=== PATIENT | female | born 2000 | race Caucasian/White ===

== ENCOUNTER 2022-08-20 09:51 | Emergency (ER) | payer MEDICAID, SELFPAY ==
[2022-08-20] VITALS (18 sets, daily range): BP systolic 96–131; BP diastolic 61–83; PULSE 65–106; RESP 18; O2SAT 91–100
--- NOTE | 2022-08-20 10:11 | ED.GENADULT ---
HPI - General Adult General Chief complaint: Vaginal Bleeding Stated complaint: 13 weeks -bleeding and cramping Time Seen by Provider: 08/20/22 09:57 Source: patient Mode of arrival: ambulatory Limitations: no limitations History of Present Illness HPI narrative: Patient is a 21 y/o female who presents to the ED with c/o vaginal bleeding. Patient is and was currently approx 13 weeks gestation. She had previously been seeing an OBGYN with [facility], [place] but is in the process of transferring her care to [facility]. She states she noticed a gush of clean odorless fluid yesterday afternoon. She then began bleeding vaginally and notes she was passing large amount of tissue-like material. The bleeding has slowed significantly today. She had pain in her right lower back yesterday which began to radiate to her right lower abdomen today. Patient also reports she feels dizzy and lightheaded with movements. Denies any CHEEMA, N/V, focal weakness, fevers. Patient was diagnosed with a UTI 2 weeks ago and started on Macrobid. Related Data Allergies Allergy/AdvReac Type Severity Reaction Status Date / Time ciprofloxacin [From Cipro] Allergy Stopped Verified 08/20/22 09:52 Breathing levofloxacin [From Levaquin] AdvReac Rash Verified 08/20/22 09:52 Review of Systems Review of Systems: CONSTITUTIONAL: Denies fever, chills, or sweats. CARDIOVASCULAR: Denies chest pain. RESPIRATORY: Denies dyspnea. GASTROINTESTINAL: See HPI. GENITOURINARY: See HPI. SKIN: Denies rash or itching. MUSCULOSKELETAL: See HPI. NEUROLOGIC: See HPI. All systems reviewed & are unremarkable except as noted in HPI and below [facility] Past Medical History Medical History (Updated 08/20/22 @ 15:58 by Kristie Winter PA-C) History of miscarriage Surgical History Surgical History (Updated 08/20/22 @ 15:58 by Kristie Winter PA-C) No pertinent past surgical history Exam Narrative: GENERAL: Well appearing, thin, non-toxic, in no acute distress. HEAD: Normocephalic, atraumatic. NECK: Supple. No adenopathy, no masses. RESPIRATORY: Airway patent, respirations nonlabored. Clear to auscultation bilaterally, no rales, rhonchi, wheezing. CARDIOVASCULAR: Regular rate and rhythm without murmurs, rubs, or gallops. Radial pulses 2+ and equal bilaterally. ABDOMINAL: Soft, very mild tenderness throughout lower abdomen, nondistended, no hepatosplenomegaly. Normoactive BS. No significant CVA tenderness to percussion. PELVIC: Normal external genitalia. Cervical os appears slightly open. Small amount of dark brown discharge/bleeding. No active or bright red bleeding. No genital lesions. No significant CMT. MUSCULOSKELETAL: Moves all extremities. Strength/ROM intact without gross deformities. SKIN: Warm, dry, slightly pale appearing. No rashes. NEURO: A&O X3. Speech clear. Cranial nerves II-XII grossly intact. Steady gait. No ataxic movements. PSYCHIATRIC: Appropriate mood and affect. Normal interaction. Course Vital Signs Vital signs: Vital Signs Pulse Rate 77 08/20/22 09:58 Respiratory Rate 18 08/20/22 09:58 Blood Pressure 118/69 08/20/22 09:58 Pulse Oximetry 100 08/20/22 09:58 Oxygen Delivery Room Air 08/20/22 09:58 Pulse Rate 65 08/20/22 13:00 Respiratory Rate 18 08/20/22 09:58 Blood Pressure 104/67 08/20/22 13:00 Pulse Oximetry 100 08/20/22 13:15 Oxygen Delivery Room Air 08/20/22 09:58 Medical Decision Making MDM Narrative Medical decision making narrative: Patient presented to ED G5, P2, currently 13 weeks gestation, previously confirmed IUP, developed vaginal bleeding yesterday, passing tissue. Feeling dizzy and lightheaded today. Vital stable upon arrival, though patient was found to be orthostatic even with sitting upright in ED bed. Fluids were started. CBC without leukocytosis, stable H&H. Beta quant 186K. No records to compare to. Urine does not appear infectio
[2022-08-20 10:24] LABS: Basophils Percent Auto 0.4 % (0.2-1.2); Eosinophils Absolute Auto 0.1 K/mm3 (0-0.3); Eosinophils Percent Auto 1.4 % (0-4.4); Hematocrit 37.5 % (37.0-47.0); Hemoglobin 12.5 g/dL (12.0-15.0); Immature Granulocyte Absolute 0.03 K/mm3 (0.00-0.031); Immature Granulocyte Percent A 0.4 % (0-0.5); Lymphocytes Absolute Auto 1.57 K/mm3 (0.9-3.2); Lymphocytes Percent Auto 20.6 % (18.3-44.2); Mean Corpuscular HGB Conc 33.3 g/dl (32-36); Mean Corpuscular Hemoglobin 29.3 pg (26-34); Mean Corpuscular Volume 87.8 fl (80-100); Mean Platelet Volume 11.2 fl (7.4-10.4); Monocytes Absolute Auto 0.6 K/mm3 (0.1-0.6); Monocytes Percent Auto 7.6 % (2.6-8.5); Neutrophils Absolute Auto 5.3 K/mm3 (1.3-6.7); Neutrophils Percent Auto 69.6 % (45.5-73.1); Platelet Count Result 180 k/mm3 (150-375); Red Blood Count 4.27 M/mm3 (4.2-5.4); Red Cell Distribution Width 13.1 % (11.5-14.5); White Blood Count 7.6 K/mm3 (4.5-10.0)
[2022-08-20] MEDS: SODIUM CHLORIDE 0.9% IV 1,000 ML 999 ML IV CONT ×2 (10:57→11:58)
[2022-08-20 11:14] LABS: Alanine Aminotransferase 31 U/L (6-35); Albumin Level 3.8 g/dL (3.5-5.1); Alkaline Phosphatase 49 U/L (38-126); Anion Gap 6 mmol/L (8-16); Aspartate Amino Transferase 20 U/L (14-36); Bilirubin,Total 0.4 mg/dL (0.2-1.3); Blood Urea Nitrogen 5 mg/dL (7-17); Calcium 8.3 mg/dL (8.4-10.2); Carbon Dioxide 24 mmol/L (22-30); Chloride 105 mmol/L (98-107); Estimated CRCL calculation 168 ml/min; Estimated Glomerular Filt Rate > 60; Glucose 83 mg/dL (65-110); Potassium 3.4 mmol/L (3.4-5.0); Sodium 135 mmol/L (137-145)
[2022-08-20 12:02] LABS: Appearance Urine Clear (Clear); Bilirubin Urine Negative (Negative); Blood Urine Negative (Negative); Color Urine Yellow (Yellow); Glucose Urine UA Negative (Negative); Ketones Urine Negative (Negative); Leukocyte Esterase Ur Negative LEU/UL (Negative); Nitrate Urine Negative (Negative); Protein Urine Negative (Negative); Specific Grav Ur 1.007 (1.001-1.035); Urobilinogen Urine 0.2 mg/dL (<2.0)
[2022-08-20 12:05] LABS: Add Urine Microscopic? NO
== END 2022-08-20 14:15 | disposition home or self-care (01) ==
PROVIDERS: Emergency Provider Physician Assistant
DX: O03.9 Complete or unspecified spontaneous abortion without complication (principal)
CPT/HCPCS: 36415; 80053; 81003; 84702; 85025; 85461; 86850; 86900; 86901; 96360; 96361; 99284; J7030

== ENCOUNTER 2022-09-08 09:42 | Emergency (ER) | payer BC, SELFPAY ==
[2022-09-08 09:47] VITALS: BP 111/72; PULSE 110; RESP 18; TEMP 36.9; O2SAT 100
--- NOTE | 2022-09-08 10:15 | ED.NAVMDI ---
HPI - Nausea/Vomiting/Diarrhea General Chief complaint: Nausea/Vomiting/Diarrhea Stated complaint: N/V 16 weeks Time Seen by Provider: 09/08/22 09:56 History of Present Illness HPI Narrative: Patient is a 21-year-old G6, female who is currently 16 weeks here for evaluation of nausea, vomiting, epigastric burning x4 days. Patient has been attempting Zofran and omeprazole without relief, states over the past 24 hours she has been unable to keep down food or water. States she feels dehydrated. Her OB is Dr. Green at the [facility] [place]. no fevers, chills, diarrhea or constipation. No vaginal bleeding, lower abdominal cramping, sudden gush of fluids. Related Data Allergies Allergy/AdvReac Type Severity Reaction Status Date / Time ciprofloxacin [From Cipro] Allergy Stopped Verified 09/08/22 09:58 Breathing levofloxacin [From Levaquin] AdvReac Rash Verified 09/08/22 09:58 Review of Systems Review of Systems: Gen.: Denies fevers or chills Eyes: Denies eye pain or visual change ENT: Denies congestion Respiratory: Denies shortness of breath or cough CV: Denies chest pain or palpitations GI: Reports epigastric abdominal pain, nausea and vomiting denies burning, urgency, frequency or hematuria Musculoskeletal: Denies back pain or muscle pain Neuro: Denies numbness, tingling, weakness or focal weakness Skin: Denies rash Except as documented, all other systems reviewed and negative PMFSH Past Medical History Medical History History of miscarriage Surgical History Surgical History No pertinent past surgical history Exam Narrative: APPEARANCE: Well appearing, no pain in distress, well-nourished. Head: Normocephalic and atraumatic. EYES: PERRLA/EOMI, conjunctivae clear NOSE: No nasal drainage EARS: External ear normal in appearance THROAT: Oropharynx is clear. Mucous membranes are moist. NECK: Supple. No adenopathy, no masses. RESPIRATORY: Airway patent, respirations nonlabored. Clear to auscultation bilaterally, no rales, rhonchi, wheezing. CARDIOVASCULAR: Regular rate and rhythm without murmurs, rubs, or gallops. ABDOMINAL: Normoactive bowel sounds. Soft, nontender, nondistended. No rebound tenderness or guarding. MUSCULOSKELETAL: Extremities are warm and well-perfused. Moves all extremities well. No edema. NEURO: Normal speech. No focal neurologic deficits. SKIN: Skin is warm and dry. No rashes. PSYCHIATRIC: Normal affect/mood.. Course Course Emergency Course: FHT at bedside rate 135-155 Vital Signs Vital signs: Vital Signs Temperature 98.4 F 09/08/22 09:47 Pulse Rate 110 H 09/08/22 09:47 Respiratory Rate 18 09/08/22 09:47 Blood Pressure 111/72 09/08/22 09:47 Pulse Oximetry 100 09/08/22 09:47 Oxygen Delivery Room Air 09/08/22 09:47 Temperature 98.4 F 09/08/22 09:47 Pulse Rate 84 09/08/22 13:19 Respiratory Rate 16 09/08/22 13:19 Blood Pressure 98/58 L 09/08/22 13:19 Pulse Oximetry 98 09/08/22 13:19 Oxygen Delivery Room Air 09/08/22 09:47 MDM - Nausea/Vomiting/Diarrhea MDM Narrative Medical decision making narrative: -year-old G6, P2 AB 3 female here for evaluation of nausea and vomiting the past 24 hours, unable to tolerate any p.o. Initially slightly tachycardic but otherwise nontoxic in appearance with no abdominal tenderness on examination. heart tones detected at bedside. Patient's was given 2 L of fluids and Reglan with improvement in her symptoms. Able to tolerate p.o and feels ready to go home. Labs significant for slight hypokalemia to 3.2, UA with 4+ ketones, bacteria, white blood cells and trace leuks. Given that she is we will treat for asymptomatic bacteriuria. Spoke with Dr. Green who is agreeable with plan for d/c with abx, reglan and outpatient follow up. Lab Data
[2022-09-08 10:33] LABS: Basophils Percent Auto 0.4 % (0.2-1.2); Eosinophils Absolute Auto 0.1 K/mm3 (0-0.3); Eosinophils Percent Auto 0.7 % (0-4.4); Hematocrit 38.4 % (37.0-47.0); Hemoglobin 12.7 g/dL (12.0-15.0); Immature Granulocyte Absolute 0.05 K/mm3 (0.00-0.031); Immature Granulocyte Percent A 0.6 % (0-0.5); Lymphocytes Absolute Auto 1.14 K/mm3 (0.9-3.2); Lymphocytes Percent Auto 13.6 % (18.3-44.2); Mean Corpuscular HGB Conc 33.1 g/dl (32-36); Mean Corpuscular Hemoglobin 29.5 pg (26-34); Mean Corpuscular Volume 89.3 fl (80-100); Mean Platelet Volume 11.2 fl (7.4-10.4); Monocytes Absolute Auto 0.5 K/mm3 (0.1-0.6); Monocytes Percent Auto 6.4 % (2.6-8.5); Neutrophils Absolute Auto 6.6 K/mm3 (1.3-6.7); Neutrophils Percent Auto 78.3 % (45.5-73.1); Platelet Count Result 192 k/mm3 (150-375); White Blood Count 8.4 K/mm3 (4.5-10.0)
[2022-09-08] MEDS: METOCLOPRAMIDE HCL INJ 10 MG/2 ML VIAL IV PUSH (10:38)
[2022-09-08] MEDS: LACTATED RINGERS 1,000 ML 999 ML IV CONT ×2 (10:38→11:44)
[2022-09-08 10:47] VITALS: BP 103/70; PULSE 77; RESP 16; O2SAT 97
[2022-09-08 10:50] LABS: Alanine Aminotransferase 36 U/L (6-35); Albumin Level 4.5 g/dL (3.5-5.1); Alkaline Phosphatase 64 U/L (38-126); Anion Gap 10 mmol/L (8-16); Aspartate Amino Transferase 29 U/L (14-36); Bilirubin,Total 0.7 mg/dL (0.2-1.3); Blood Urea Nitrogen 7 mg/dL (7-17); Carbon Dioxide 23 mmol/L (22-30); Chloride 103 mmol/L (98-107); Estimated CRCL calculation 170 ml/min; Estimated Glomerular Filt Rate > 60; Glucose 79 mg/dL (65-110); Potassium 3.2 mmol/L (3.4-5.0); Sodium 136 mmol/L (137-145)
--- NOTE | 2022-09-08 11:11 | PC.NURSE ---
Report received from Marianne MAHMOOD
[2022-09-08 11:40] LABS: Add Urine Microscopic? YES; Appearance Urine Cloudy (Clear); Bacteria Urine 2+ /hpf; Bilirubin Urine Negative (Negative); Blood Urine Negative (Negative); Color Urine Yellow (Yellow); Glucose Urine UA Negative (Negative); Ketones Urine 4+ mg/dL (Negative); Leukocyte Esterase Ur Trace LEU/UL (Negative); Need Manual Microscopic Reviewed; Nitrate Urine Negative (Negative); Protein Urine Trace mg/dL (Negative); Specific Grav Ur 1.028 (1.001-1.035); Squamous Epithelial Cell Urine Moderate /hpf (Few)
[2022-09-08] MEDS: POTASSIUM CHLORIDE 20 MEQ PACKET (FOR LIQUID) PO (12:29)
[2022-09-08 13:19] VITALS: BP 98/58; PULSE 84; RESP 16; O2SAT 98
== END 2022-09-08 13:20 | disposition home or self-care (01) ==
PROVIDERS: Emergency Provider Physician Assistant
DX: O21.9 Vomiting of pregnancy, unspecified (principal); Z3A.16 16 weeks gestation of pregnancy
CPT/HCPCS: 36415; 80053; 81001; 85025; 87086; 96361; 96374; 99284; A9270; J2765; J7120

== ENCOUNTER 2022-10-18 20:47 | Observation (INO) | payer BC, SELFPAY ==
[2022-10-18] MEDS: DEXTROSE 5%/LACTATED RINGERS 1,000 ML 999 ML IV CONT (21:23)
[2022-10-18 21:25] LABS: Basophils Percent Auto 0.2 % (0.2-1.2); Eosinophils Absolute Auto 0.1 K/mm3 (0-0.3); Eosinophils Percent Auto 0.6 % (0-4.4); Hematocrit 32.2 % (37.0-47.0); Hemoglobin 10.5 g/dL (12.0-15.0); Immature Granulocyte Absolute 0.08 K/mm3 (0.00-0.031); Immature Granulocyte Percent A 0.9 % (0-0.5); Lymphocytes Absolute Auto 1.21 K/mm3 (0.9-3.2); Lymphocytes Percent Auto 13.8 % (18.3-44.2); Mean Corpuscular HGB Conc 32.6 g/dl (32-36); Mean Corpuscular Hemoglobin 28.7 pg (26-34); Mean Platelet Volume 11.1 fl (7.4-10.4); Monocytes Absolute Auto 0.6 K/mm3 (0.1-0.6); Monocytes Percent Auto 7.1 % (2.6-8.5); Neutrophils Absolute Auto 6.8 K/mm3 (1.3-6.7); Neutrophils Percent Auto 77.4 % (45.5-73.1); Platelet Count Result 195 k/mm3 (150-375); Red Blood Count 3.66 M/mm3 (4.2-5.4); White Blood Count 8.8 K/mm3 (4.5-10.0)
[2022-10-18 21:32] VITALS: BMI 19.5
--- NOTE | 2022-10-18 21:32 | OBADM ---
This patient, Mariam Lea, admitted to the OB room OB Post 116 for observation. Patient/family oriented to hospital policies and general routines including ID bracelet, bed and alarms, visiting hours, pain management, procedures, bathroom and other care routines, personal items, smoking policy, room service/diet, and visiting hours. Patient/Family are encouraged to report perceived risks to care and to ask questions if they do not understand what they are told or what they should do.
[2022-10-18 21:35] LABS: Alanine Aminotransferase 31 U/L (6-35); Albumin Level 3.8 g/dL (3.5-5.1); Alkaline Phosphatase 55 U/L (38-126); Anion Gap 8 mmol/L (8-16); Aspartate Amino Transferase 25 U/L (14-36); Bilirubin,Total 0.4 mg/dL (0.2-1.3); Blood Urea Nitrogen 6 mg/dL (7-17); Calcium 8.6 mg/dL (8.4-10.2); Carbon Dioxide 23 mmol/L (22-30); Chloride 103 mmol/L (98-107); Estimated CRCL calculation 177 ml/min; Estimated Glomerular Filt Rate > 60; Glucose 107 mg/dL (65-110); Potassium 3.2 mmol/L (3.4-5.0); Sodium 134 mmol/L (137-145)
[2022-10-18 21:45] LABS: Appearance Urine Cloudy (Clear); Bacteria Urine 4+ /hpf; Bilirubin Urine Negative (Negative); Blood Urine Negative (Negative); Color Urine Yellow (Yellow); Glucose Urine UA 1+ mg/dL (Negative); Ketones Urine Trace mg/dL (Negative); Leukocyte Esterase Ur 1+ LEU/UL (Negative); Need Manual Microscopic Reviewed; Nitrate Urine Negative (Negative); Protein Urine Negative (Negative); Specific Grav Ur 1.024 (1.001-1.035); Squamous Epithelial Cell Urine Moderate /hpf (Few); pH Urine 6.5 (5.0-9.0)
[2022-10-18 21:50] LABS: Add Urine Microscopic? YES
[2022-10-18] MEDS: SODIUM CHLORIDE 0.9% IV 1,000 ML 200 ML IV CONT (22:09)
[2022-10-18 22:48] VITALS: BP 102/62; PULSE 100
[2022-10-18] MEDS: POTASSIUM CHLORIDE INJ 40 MEQ in SODIUM CHLORIDE 0.9% IV 500 ML 125 MEQ IVPB (22:50)
--- NOTE | 2022-11-11 18:53 | PM.OBTRLD ---
OB - Triage/Final Diagnosis Visit Information Comments/Additional reasons for admission: I have assessed the risk for this patient, Mariam Lea, and determined that she would benefit from observation care. Evaluation Laboratory results: Laboratory Tests 10/18/22 21:19 WBC 8.8 RBC 3.66 L Hgb 10.5 L Hct 32.2 L MCV 88.0 MCH 28.7 MCHC 32.6 RDW 13.0 Plt Count 195 MPV 11.1 H Immature Gran % (Auto) 0.9 H Neut % (Auto) 77.4 H Lymph % (Auto) 13.8 L [place] % (Auto) 7.1 Eos % (Auto) 0.6 Baso % (Auto) 0.2 Lymph # (Auto) 1.21 [place] # (Auto) 0.6 Eos # (Auto) 0.1 Baso # (Auto) 0.0 Abs Immat Gran (auto) 0.08 H Absolute Neuts (auto) 6.8 H Absolute Nucleated RBC 0.0 Nucleated RBC % 0.0 Sodium 134 L Potassium 3.2 L Chloride 103 Carbon Dioxide 23 Anion Gap 8 BUN 6 L Creatinine 0.30 L Estim Creat Clear Calc 177 Estimated GFR > 60 Glucose 107 Calcium 8.6 Total Bilirubin 0.4 AST 25 ALT 31 Alkaline Phosphatase 55 Total Protein 7.0 Albumin 3.8 Urine Color Yellow Urine Appearance Cloudy H Urine pH 6.5 Ur Specific [place] 1.024 Urine Protein Negative Urine Glucose (UA) 1+ H Urine Ketones Trace H Ur Blood (Man) Negative Urine Nitrate Negative Urine Bilirubin Negative Urine Urobilinogen 1.0 Add Ur Microanalysis Reviewed Leukocyte Esterase Rfl 1+ H Urine RBC 6-10 H Urine WBC 11-20 H Ur Squamous Epith Cells Moderate Urine Bacteria 4+ H Urine Casts 3-5 Final Diagnosis (1) Abdominal pain: Code(s): R10.9 - Unspecified abdominal pain Status: Acute
== END 2022-10-19 03:50 | disposition home or self-care (01) ==
PROVIDERS: Admitting Provider Obstetrics & Gynecology; Visit Provider Obstetrics & Gynecology
DX: O26.892 Other specified pregnancy related conditions, second trimester (principal); R10.9 Unspecified abdominal pain; Z3A.21 21 weeks gestation of pregnancy
CPT/HCPCS: 36415; 80053; 81001; 85025; 87077; 87086; 87088; 96374; 96375; G0378; J0696; J3480; J7030; J7040; J7121

== ENCOUNTER 2022-11-23 11:11 | Observation (INO) | payer BC, OTHER, SELFPAY ==
[2022-11-23] VITALS (18 sets, daily range): BP systolic 88–124; BP diastolic 55–81; PULSE 82–185; TEMP 36.6
[2022-11-23 12:26] LABS: Appearance Urine Clear (Clear); Bilirubin Urine Negative (Negative); Blood Urine Negative (Negative); Color Urine Yellow (Yellow); Glucose Urine UA Negative (Negative); Ketones Urine Negative (Negative); Leukocyte Esterase Ur Negative LEU/UL (Negative); Nitrate Urine Negative (Negative); Protein Urine Negative (Negative); pH Urine 6.5 (5.0-9.0)
[2022-11-23 12:39] LABS: Add Urine Microscopic? NO
--- NOTE | 2022-11-23 12:43 | OBADM ---
This patient, Mariam Lea, admitted to the OB room OB Post 112 for observation. Patient/family oriented to hospital policies and general routines including ID bracelet, bed and alarms, visiting hours, pain management, procedures, bathroom and other care routines, personal items, smoking policy, room service/diet, and visiting hours. Patient/Family are encouraged to report perceived risks to care and to ask questions if they do not understand what they are told or what they should do.
[2022-11-23 13:58] LABS: Basophils Percent Auto 0.4 % (0.2-1.2); Eosinophils Absolute Auto 0.1 K/mm3 (0-0.3); Eosinophils Percent Auto 0.9 % (0-4.4); Hematocrit 30.1 % (37.0-47.0); Hemoglobin 9.5 g/dL (12.0-15.0); Immature Granulocyte Absolute 0.13 K/mm3 (0.00-0.031); Immature Granulocyte Percent A 1.5 % (0-0.5); Lymphocytes Absolute Auto 1.55 K/mm3 (0.9-3.2); Lymphocytes Percent Auto 17.3 % (18.3-44.2); Mean Corpuscular HGB Conc 31.6 g/dl (32-36); Mean Corpuscular Hemoglobin 27.3 pg (26-34); Mean Corpuscular Volume 86.5 fl (80-100); Mean Platelet Volume 11.2 fl (7.4-10.4); Monocytes Absolute Auto 0.7 K/mm3 (0.1-0.6); Monocytes Percent Auto 7.3 % (2.6-8.5); Neutrophils Absolute Auto 6.5 K/mm3 (1.3-6.7); Neutrophils Percent Auto 72.6 % (45.5-73.1); Platelet Count Result 209 k/mm3 (150-375); Red Blood Count 3.48 M/mm3 (4.2-5.4); Red Cell Distribution Width 12.7 % (11.5-14.5)
[2022-11-23 14:12] LABS: Alanine Aminotransferase 21 U/L (6-35); Albumin Level 3.6 g/dL (3.5-5.1); Alkaline Phosphatase 59 U/L (38-126); Anion Gap 7 mmol/L (8-16); Aspartate Amino Transferase 19 U/L (14-36); Bilirubin,Total 0.3 mg/dL (0.2-1.3); Blood Urea Nitrogen 3 mg/dL (7-17); Calcium 8.3 mg/dL (8.4-10.2); Carbon Dioxide 25 mmol/L (22-30); Chloride 104 mmol/L (98-107); Estimated Glomerular Filt Rate > 60; Glucose 83 mg/dL (65-110); Potassium 3.3 mmol/L (3.4-5.0); Sodium 136 mmol/L (137-145)
[2022-11-23 14:23] LABS: Fetal Fibronectin Negative
--- NOTE | 2022-11-27 15:28 | PM.OBTRLD ---
OB - Triage/Final Diagnosis Visit Information Date of evaluation: 11/23/22 Reason for evaluation: threatened labor Comments/Additional reasons for admission: I have assessed the risk for this patient, Mariam Lea, and determined that she would benefit from observation care. Evaluation Laboratory results: Laboratory Tests 11/23/22 11/23/22 12:15 13:22 WBC 9.0 RBC 3.48 L Hgb 9.5 L Hct 30.1 L MCV 86.5 MCH 27.3 MCHC 31.6 L RDW 12.7 Plt Count 209 MPV 11.2 H Immature Gran % (Auto) 1.5 H Neut % (Auto) 72.6 Lymph % (Auto) 17.3 L [place] % (Auto) 7.3 Eos % (Auto) 0.9 Baso % (Auto) 0.4 Lymph # (Auto) 1.55 [place] # (Auto) 0.7 H Eos # (Auto) 0.1 Baso # (Auto) 0.0 Abs Immat Gran (auto) 0.13 H Absolute Neuts (auto) 6.5 Absolute Nucleated RBC 0.0 Nucleated RBC % 0.0 Sodium 136 L Potassium 3.3 L Chloride 104 Carbon Dioxide 25 Anion Gap 7 L BUN 3 L Creatinine 0.30 L Estim Creat Clear Calc Not Reportable Estimated GFR > 60 Glucose 83 Calcium 8.3 L Total Bilirubin 0.3 AST 19 ALT 21 Alkaline Phosphatase 59 Total Protein 7.0 Albumin 3.6 Urine Color Yellow Urine Appearance Clear Urine pH 6.5 Ur Specific [place] 1.020 Urine Protein Negative Urine Glucose (UA) Negative Urine Ketones Negative Ur Blood (Man) Negative Urine Nitrate Negative Urine Bilirubin Negative Urine Urobilinogen 1.0 Leukocyte Esterase Rfl Negative Fibronectin Negative
== END 2022-11-23 16:20 | disposition home or self-care (01) ==
PROVIDERS: Advanced Practice Midwife; Admitting Provider Obstetrics & Gynecology; Visit Provider Obstetrics & Gynecology
DX: O47.02 False labor before 37 completed weeks of gestation, second trimester (principal); Z3A.26 26 weeks gestation of pregnancy
CPT/HCPCS: 36415; 80053; 81003; 82731; 85025; G0378; G0379

== ENCOUNTER 2022-12-05 12:30 | Observation (INO) | payer BC, OTHER, SELFPAY ==
[2022-12-05] VITALS (154 sets, daily range): BP systolic 95–127; BP diastolic 53–105; PULSE 32–151; TEMP 36.4–37.8; O2SAT 75–100
--- NOTE | 2022-12-05 13:15 | PCDIET ---
Pt. arrives to unit with c/o contractions since last night at 2100 and has continued since, nausea and dizziness since ctx began,clear intermittent leaking of fluid, burning on urination, intercourse this am, good movement. Denies bleeding or any significant health conditions. , edc 02/23.
[2022-12-05 13:21] LABS: Basophils Percent Auto 0.3 % (0.2-1.2); Eosinophils Absolute Auto 0.1 K/mm3 (0-0.3); Eosinophils Percent Auto 0.8 % (0-4.4); Hematocrit 34.1 % (37.0-47.0); Hemoglobin 10.6 g/dL (12.0-15.0); Immature Granulocyte Absolute 0.27 K/mm3 (0.00-0.031); Immature Granulocyte Percent A 2.6 % (0-0.5); Lymphocytes Absolute Auto 1.44 K/mm3 (0.9-3.2); Lymphocytes Percent Auto 13.8 % (18.3-44.2); Mean Corpuscular HGB Conc 31.1 g/dl (32-36); Mean Corpuscular Hemoglobin 26.8 pg (26-34); Mean Corpuscular Volume 86.3 fl (80-100); Mean Platelet Volume 11.5 fl (7.4-10.4); Monocytes Absolute Auto 0.7 K/mm3 (0.1-0.6); Monocytes Percent Auto 6.5 % (2.6-8.5); Platelet Count Result 195 k/mm3 (150-375); Red Blood Count 3.95 M/mm3 (4.2-5.4); Red Cell Distribution Width 12.7 % (11.5-14.5); White Blood Count 10.5 K/mm3 (4.5-10.0)
[2022-12-05 13:23] LABS: Appearance Urine Clear (Clear); Bilirubin Urine Negative (Negative); Blood Urine Negative (Negative); Color Urine Yellow (Yellow); Glucose Urine UA Negative (Negative); Ketones Urine Negative (Negative); Leukocyte Esterase Ur Negative LEU/UL (Negative); Nitrate Urine Negative (Negative); Protein Urine Negative (Negative); Specific Grav Ur 1.025 (1.001-1.035); pH Urine 5.5 (5.0-9.0)
[2022-12-05] MEDS: LACTATED RINGERS 1,000 ML 999 ML IV CONT (13:23)
[2022-12-05 13:25] LABS: Add Urine Microscopic? NO
[2022-12-05 13:32] LABS: Alanine Aminotransferase 25 U/L (6-35); Albumin Level 4.1 g/dL (3.5-5.1); Alkaline Phosphatase 72 U/L (38-126); Anion Gap 7 mmol/L (8-16); Aspartate Amino Transferase 21 U/L (14-36); Bilirubin,Total 0.4 mg/dL (0.2-1.3); Blood Urea Nitrogen 5 mg/dL (7-17); Calcium 8.6 mg/dL (8.4-10.2); Carbon Dioxide 25 mmol/L (22-30); Chloride 103 mmol/L (98-107); Estimated Glomerular Filt Rate > 60; Glucose 104 mg/dL (65-110); Potassium 3.3 mmol/L (3.4-5.0); Sodium 135 mmol/L (137-145); Uric Acid 1.9 mg/dL (2.5-7.5)
--- NOTE | 2022-12-05 13:42 | PC.NURSE ---
Yulia PERALTA notified of pt. arrival with c/o ctx since last evening, nausea, dizziness, burning on urination, leaking of fluid, recent intercourse this am. ctx 1-11, fht 130-140s, moderate variability, pain with ctx 7, no bleeding, good movement. Order received for LR bolus, labs, terb .25 once.
[2022-12-05 13:52] LABS: Fetal Fibronectin Positive
[2022-12-05] MEDS: TERBUTALINE SULFATE 1 MG/ML VIAL 0.25 MG SUB-Q (13:53)
[2022-12-05] MEDS: LACTATED RINGERS 1,000 ML 125 ML IV CONT (15:55)
--- NOTE | 2022-12-05 16:58 | PC.NURSE ---
Call placed to Yulia PERALTA due to patient crying with complaint of Shortness of breath, chest pressure, and heart racing from 120's to 150, history of asthma. Oxygen levels are 100 percent and bilateral lung sounds clear, fht 150-160's, moderate variability, irregular ctx and irritability. Order received to transfer pt. to ER for chest pain evaluation per swati/chyna.
--- NOTE | 2022-12-05 17:56 | PM.IMHP ---
H&P: HPI History of Present Illness Date/Time: 12/05/22 17:56 Chief Complaint: pt came to LD from office visit,complaints of contractions, nausea, dizziness, burning with urination, worsened after intercourse this am,did not tell triage and FFN was run and was positive. Pt currently being co-managed with MFM, family history of pyloric stenosis, Borderline intraabdominal echogenicites at 18 weeks, torch panel IGM negative, IGG positive toxoplasmosis, CMV and parvovirus, pt has a history of a delivery at 34 weeks gestation. Review of Systems Review of Systems: All systems reviewed & are unremarkable except as noted in HPI and below [facility] Past Medical History Medical History History of miscarriage Surgical History Surgical History No pertinent past surgical history Meds Home Medications and Allergies Home Medications Medication Instructions Recorded Confirmed Type metoclopramide HCl 10 mg tablet 10 mg PO Q6H PRN nausea and 09/08/22 Rx (Reglan) vomiting #10 tabs nitrofurantoin 100 mg PO Q12H 5 days #10 caps 09/08/22 Rx monohydrate/macrocrystals 100 mg capsule (Macrobid) Allergies Allergy/AdvReac Type Severity Reaction Status Date / Time ciprofloxacin [From Cipro] Allergy Stopped Verified 09/08/22 09:58 Breathing levofloxacin [From Levaquin] AdvReac Rash Verified 09/08/22 09:58 Vital Signs Vital Signs - 24 hr 12/05/22 13:13 12/05/22 13:16 12/05/22 13:31 Pulse Rate 98 97 97 Blood Pressure 117/72 120/82 106/70 Pulse Oximetry 12/05/22 13:46 12/05/22 13:58 12/05/22 14:01 Pulse Rate 93 101 H 112 H Blood Pressure 110/69 101/65 111/66 Pulse Oximetry 12/05/22 14:11 12/05/22 14:16 12/05/22 14:21 Pulse Rate 105 H Blood Pressure 115/65 Pulse Oximetry 86 L 100 100 12/05/22 14:26 12/05/22 14:31 12/05/22 14:36 Pulse Rate 104 H Blood Pressure 113/70 Pulse Oximetry 99 99 100 12/05/22 14:38 12/05/22 14:38 12/05/22 14:43 Pulse Rate Blood Pressure Pulse Oximetry 100 100 100 12/05/22 14:46 12/05/22 14:48 12/05/22 14:53 Pulse Rate 105 H Blood Pressure 108/65 Pulse Oximetry 100 100 12/05/22 14:58 12/05/22 15:01 12/05/22 15:03 Pulse Rate 101 H Blood Pressure 106/60 Pulse Oximetry 100 100 12/05/22 15:08 12/05/22 15:13 12/05/22 15:16 Pulse Rate 100 Blood Pressure 100/61 Pulse Oximetry 100 100 12/05/22 15:18 12/05/22 15:23 12/05/22 15:28 Pulse Rate Blood Pressure Pulse Oximetry 94 100 100 12/05/22 15:30 12/05/22 15:31 12/05/22 15:33 Pulse Rate 104 H 103 H Blood Pressure 111/64 113/58 L Pulse Oximetry 100 12/05/22 15:38 12/05/22 15:43 12/05/22 15:46 Pulse Rate 99 Blood Pressure 115/65 Pulse Oximetry 100 100 12/05/22 15:48 12/05/22 15:53 12/05/22 15:58 Pulse Rate Blood Pressure Pulse Oximetry 100 100 100 12/05/22 16:01 12/05/22 16:03 12/05/22 16:08 Pulse Rate 104 H Blood Pressure 111/69 Pulse Oximetry 100 100 12/05/22 16:13 12/05/22 16:16 12/05/22 16:18 Pulse Rate 113 H Blood Pressure 116/66 Pulse Oximetry 100 100 12/05/22 16:23 12/05/22 16:28 12/05/22 16:30 Pulse Rate 145 H Blood Pressure 121/100 H Pulse Oximetry 100 100 12/05/22 16:33 12/05/22 16:38 12/05/22 16:43 Pulse Rate Blood Pressure Pulse Oximetry 100 100 100 12/05/22 16:46 12/05/22 16:48 12/05/22 16:53 Pulse Rate 136 H Blood Pressure 110/67 Pulse Oximetry 100 100 12/05/22 16:58 12/05/22 17:01 12/05/22 17:03 Pulse Rate 130 H Blood Pressure 118/82 Pulse Oximetry 100 100 12/05/22 17:08 12/05/22 17:13 12/05/22 17:16 Pulse Rate 115 H Blood Pressure 106/61 Pulse Oximetry 98 100 12/05/22 17:18 12/05/22 17:23 12/05/22 17:27 Pulse Rate Blood Pressure Pulse Oximetry 100 99 100 12/05/22 17:
[2022-12-05] MEDS: NIFEdipine 30 MG TAB.ER.24 PO (18:40)
[2022-12-05] MEDS: POTASSIUM BICARBONATE 25 MEQ TABEF PO (18:41)
[2022-12-05] MEDS: BETAMETHASONE SOD PHOS/ACETATE 30 MG/5 ML VIAL 12 MG IM (18:41)
--- NOTE | 2022-12-05 19:39 | PC.NURSE ---
RN updated Renetta Garcia CNM of PT vitals, oje Q3-4mins at this time, Contractions palpating mild and resting tone soft to palpation, PT states she does not feel contraction. Renetta Garcia CNM calling Dr. Green and will call back with update.
--- NOTE | 2022-12-05 19:42 | PC.NURSE ---
Renetta Garcia CNM called unit, orders to keep PT over night, PT can have Ambien for sleep, continue LR at 125hr, Repeat FFN at 24hrs.
--- NOTE | 2022-12-05 19:49 | PC.NURSE ---
Renetta Garcia CNM notified of PT stating I'm starting to feel contractions, when I have one it's a sharp pain and I feel burning in my vagina. RN reported contraction pattern. Bladder recently emptied, fluids running and contractions mild to palpation. No new orders at this time.
[2022-12-05] MEDS: ZOLPIDEM TARTRATE (*CRX) 5 MG TABLET PO (21:15)
--- NOTE | 2022-12-05 22:21 | PC.NURSE ---
Renetta Garcia CNM notified of RN having difficulty monitoring heart tones related to gestational age and maternal position. Category 1 tracing prior to notifying. RN reported contraction pattern, PT states she does feel some contractions when they come but it varies. Orders to monitor heart tones Q-shift.
[2022-12-06] VITALS (33 sets, daily range): BP systolic 99–108; BP diastolic 49–59; PULSE 94–134; RESP 16; TEMP 36.8–37; O2SAT 93–99; BMI 22.2
[2022-12-06] MEDS: LACTATED RINGERS 1,000 ML 125 ML IV CONT (02:17)
--- NOTE | 2022-12-06 03:07 | PC.NURSE ---
PT reports feeling nauseous and requesting ice. RN to bedside, PT given ice and emesis bag, RN offered PT medication for nausea, PT denies at this time.
--- NOTE | 2022-12-06 03:37 | PC.NURSE ---
Renetta Garcia [facility] notified of PT uterine activity, PT states she does not feel contractions at this time. No new orders at this time.
--- NOTE | 2022-12-06 05:47 | PC.NURSE ---
Renetta Garcia [facility] notified of PT uterine activity, PT states she does not feel contractions at this time. No new orders at this time.
[2022-12-06] MEDS: ONDANSETRON INJ 4 MG/2 ML VIAL IV PUSH (06:44)
[2022-12-06] MEDS: FAMOTIDINE 20 MG/2 ML VIAL IV PUSH (07:09)
--- NOTE | 2022-12-06 11:45 | PC.NURSE ---
Renetta Garcia CNM was in to see pt and discussed plan for discharge. Pt to get Celestone early before she goes home.
--- NOTE | 2022-12-06 11:48 | PM.OBTRLD ---
OB - Triage/Final Diagnosis Visit Information Date of evaluation: 12/05/22 Reason for evaluation: threatened labor Comments/Additional reasons for admission: I have assessed the risk for this patient, Mariam Lea, and determined that she would benefit from observation care. Evaluation Laboratory results: Laboratory Tests 12/05/22 12/05/22 13:11 13:12 WBC 10.5 H RBC 3.95 L Hgb 10.6 L Hct 34.1 L MCV 86.3 MCH 26.8 MCHC 31.1 L RDW 12.7 Plt Count 195 MPV 11.5 H Immature Gran % (Auto) 2.6 H Neut % (Auto) 76.0 H Lymph % (Auto) 13.8 L [place] % (Auto) 6.5 Eos % (Auto) 0.8 Baso % (Auto) 0.3 Lymph # (Auto) 1.44 [place] # (Auto) 0.7 H Eos # (Auto) 0.1 Baso # (Auto) 0.0 Abs Immat Gran (auto) 0.27 H Absolute Neuts (auto) 8.0 H Absolute Nucleated RBC 0.0 Nucleated RBC % 0.0 Sodium 135 L Potassium 3.3 L Chloride 103 Carbon Dioxide 25 Anion Gap 7 L BUN 5 L Creatinine 0.30 L Estim Creat Clear Calc Not Reportable Estimated GFR > 60 Glucose 104 Uric Acid 1.9 L Calcium 8.6 Total Bilirubin 0.4 AST 21 ALT 25 Alkaline Phosphatase 72 Total Protein 8.0 Albumin 4.1 Urine Color Yellow Urine Appearance Clear Urine pH 5.5 Ur Specific [place] 1.025 Urine Protein Negative Urine Glucose (UA) Negative Urine Ketones Negative Ur Blood (Man) Negative Urine Nitrate Negative Urine Bilirubin Negative Urine Urobilinogen 1.0 Leukocyte Esterase Rfl Negative Fibronectin Positive Vital signs: Vital Signs - 24 hr 12/05/22 13:13 12/05/22 13:16 12/05/22 13:31 Temperature 36.4 C Pulse Rate 98 97 97 Respiratory Rate Blood Pressure 117/72 120/82 106/70 Pulse Oximetry Oxygen Delivery 12/05/22 13:46 12/05/22 13:58 12/05/22 14:01 Temperature 36.8 C Pulse Rate 93 101 H 112 H Respiratory Rate Blood Pressure 110/69 101/65 111/66 Pulse Oximetry Oxygen Delivery 12/05/22 14:11 12/05/22 14:16 12/05/22 14:21 Temperature Pulse Rate 105 H Respiratory Rate Blood Pressure 115/65 Pulse Oximetry 86 L 100 100 Oxygen Delivery 12/05/22 14:26 12/05/22 14:31 12/05/22 14:36 Temperature Pulse Rate 104 H Respiratory Rate Blood Pressure 113/70 Pulse Oximetry 99 99 100 Oxygen Delivery 12/05/22 14:38 12/05/22 14:38 12/05/22 14:43 Temperature Pulse Rate Respiratory Rate Blood Pressure Pulse Oximetry 100 100 100 Oxygen Delivery 12/05/22 14:46 12/05/22 14:48 12/05/22 14:53 Temperature Pulse Rate 105 H Respiratory Rate Blood Pressure 108/65 Pulse Oximetry 100 100 Oxygen Delivery 12/05/22 14:58 12/05/22 15:01 12/05/22 15:03 Temperature Pulse Rate 101 H Respiratory Rate Blood Pressure 106/60 Pulse Oximetry 100 100 Oxygen Delivery 12/05/22 15:08 12/05/22 15:13 12/05/22 15:16 Temperature Pulse Rate 100 Respiratory Rate Blood Pressure 100/61 Pulse Oximetry 100 100 Oxygen Delivery 12/05/22 15:18 12/05/22 15:23 12/05/22 15:28 Temperature Pulse Rate Respiratory Rate Blood Pressure Pulse Oximetry 94 100 100 Oxygen Delivery 12/05/22 15:30 12/05/22 15:31 12/05/22 15:33 Temperature Pulse Rate 104 H 103 H Respiratory Rate Blood Pressure 111/64 113/58 L Pulse Oximetry 100 Oxygen Delivery 12/05/22 15:38 12/05/22 15:43 12/05/22 15:46 Temperature Pulse Rate 99 Respiratory Rate Blood Pressure 115/65 Pulse Oximetry 100 100 Oxygen Delivery 12/05/22 15:48 12/05/22 15:53 12/05/22 15:58 Temperature Pulse Rate Respiratory Rate Blood Pressure Pulse Oximetry 100 100 100 Oxygen Delivery 12/05/22 16:01 12/05/22 16:03 12/05/22 16:08 Temperature Pulse Rate 104 H Respiratory Rate Blood Pressure 111/69 Pulse Oximetry 100 100 Oxygen Delivery 12/05/22 16:13 12/05/22 16:16 12/05/22 16:18 Temperature
--- NOTE | 2022-12-06 11:48 | PM.OBPNVD ---
OB - PN: Subj Subjective Date/time seen: 12/06/22 11:48 Interval history: pt stayed over night for evaluation for labor, uterus irritable overnight, pt able to rest, this am very rare contractions with little to no irritability. pt denies complaints at this time and would like to be discharged home OB - PN: Obj Data Labs 12/05/22 13:12 12/05/22 13:12 Labs: Laboratory Results - last 24 hr 12/05/22 12/05/22 13:11 13:12 WBC 10.5 H RBC 3.95 L Hgb 10.6 L Hct 34.1 L MCV 86.3 MCH 26.8 MCHC 31.1 L RDW 12.7 Plt Count 195 MPV 11.5 H Immature Gran % (Auto) 2.6 H Neut % (Auto) 76.0 H Lymph % (Auto) 13.8 L [place] % (Auto) 6.5 Eos % (Auto) 0.8 Baso % (Auto) 0.3 Lymph # (Auto) 1.44 [place] # (Auto) 0.7 H Eos # (Auto) 0.1 Baso # (Auto) 0.0 Abs Immat Gran (auto) 0.27 H Absolute Neuts (auto) 8.0 H Absolute Nucleated RBC 0.0 Nucleated RBC % 0.0 Sodium 135 L Potassium 3.3 L Chloride 103 Carbon Dioxide 25 Anion Gap 7 L BUN 5 L Creatinine 0.30 L Estim Creat Clear Calc Not Reportable Estimated GFR > 60 Glucose 104 Uric Acid 1.9 L Calcium 8.6 Total Bilirubin 0.4 AST 21 ALT 25 Alkaline Phosphatase 72 Total Protein 8.0 Albumin 4.1 Urine Color Yellow Urine Appearance Clear Urine pH 5.5 Ur Specific [place] 1.025 Urine Protein Negative Urine Glucose (UA) Negative Urine Ketones Negative Ur Blood (Man) Negative Urine Nitrate Negative Urine Bilirubin Negative Urine Urobilinogen 1.0 Leukocyte Esterase Rfl Negative Fibronectin Positive OB - PN A/P Assessment and Plan (1) contractions: Code(s): O47.00 - False labor before 37 completed weeks of gestation, unspecified trimester Status: Acute Plan contractions pelvic rest, avoid heavy lifting continue procardia 30mg XL daily second dose of betamethasone prior to discharge continue hydration with electrolytes at home and discharge home, co-managing care with Dr. Green Time Spent With Patient Time: Total time spent is greater than 50% in coordination of care (as documented) at patient's floor/unit and/or counseling patient: Review of Systems Review of Systems: All systems reviewed & are unremarkable except as noted in HPI and below Exam Const: General: cooperative and healthy appearing Chest: Chest palpation & inspection: normal inspection of the chest Resp: Effort & Inspection: normal respiratory effort Cardio: Rate: regular rate Rhythm: regular rhythm GI: Other: soft/gravid Skin: General skin exam: normal color Neuro: General: patient oriented x3 Extrem: Right lower extremity: normal to inspection Left lower extremity: normal to inspection Psych: Appearance: grossly normal
[2022-12-06] MEDS: BETAMETHASONE SOD PHOS/ACETATE 30 MG/5 ML VIAL 12 MG IM (13:04)
--- NOTE | 2022-12-07 12:42 | PM.OBTRLD ---
OB - Triage/Final Diagnosis Visit Information Date of evaluation: 12/05/22 Reason for evaluation: threatened labor Comments/Additional reasons for admission: I have assessed the risk for this patient, Mariam Lea, and determined that she would benefit from observation care. Evaluation Laboratory results: Laboratory Tests 12/05/22 12/05/22 13:11 13:12 WBC 10.5 H RBC 3.95 L Hgb 10.6 L Hct 34.1 L MCV 86.3 MCH 26.8 MCHC 31.1 L RDW 12.7 Plt Count 195 MPV 11.5 H Immature Gran % (Auto) 2.6 H Neut % (Auto) 76.0 H Lymph % (Auto) 13.8 L [place] % (Auto) 6.5 Eos % (Auto) 0.8 Baso % (Auto) 0.3 Lymph # (Auto) 1.44 [place] # (Auto) 0.7 H Eos # (Auto) 0.1 Baso # (Auto) 0.0 Abs Immat Gran (auto) 0.27 H Absolute Neuts (auto) 8.0 H Absolute Nucleated RBC 0.0 Nucleated RBC % 0.0 Sodium 135 L Potassium 3.3 L Chloride 103 Carbon Dioxide 25 Anion Gap 7 L BUN 5 L Creatinine 0.30 L Estim Creat Clear Calc Not Reportable Estimated GFR > 60 Glucose 104 Uric Acid 1.9 L Calcium 8.6 Total Bilirubin 0.4 AST 21 ALT 25 Alkaline Phosphatase 72 Total Protein 8.0 Albumin 4.1 Urine Color Yellow Urine Appearance Clear Urine pH 5.5 Ur Specific [place] 1.025 Urine Protein Negative Urine Glucose (UA) Negative Urine Ketones Negative Ur Blood (Man) Negative Urine Nitrate Negative Urine Bilirubin Negative Urine Urobilinogen 1.0 Leukocyte Esterase Rfl Negative Fibronectin Positive
== END 2022-12-06 13:22 | disposition home or self-care (01) ==
LOC: ANHOBPP 12-06 12:59 → ANHLDR 12-06 13:59
PROVIDERS: Advanced Practice Midwife; Admitting Provider Obstetrics & Gynecology; Visit Provider Obstetrics & Gynecology
DX: O47.03 False labor before 37 completed weeks of gestation, third trimester (principal); O99.283 Endocrine, nutritional and metabolic diseases complicating pregnancy, third trimester; E87.6 Hypokalemia; E87.1 Hypo-osmolality and hyponatremia; Z3A.28 28 weeks gestation of pregnancy
CPT/HCPCS: 36415; 80053; 81003; 82731; 84112; 84550; 85025; 96372; 96374; 96375; A9270; G0378; G0379; J0702; J2405; J3105; J7120

== ENCOUNTER 2022-12-07 08:30 | Emergency (ER) | payer BC, OTHER, SELFPAY ==
[2022-12-07] VITALS (11 sets, daily range): BP systolic 103–120; BP diastolic 69–79; PULSE 76–111; RESP 14–22; TEMP 36.3–37.1; O2SAT 99
--- NOTE | ~2022-12-07 | XR_ITS ---
EXAMINATION: XR chest 2V DATE: 12/07/2022 09:05 INDICATION: Lower right chest pain. TECHNIQUE: Frontal and lateral views of the chest were obtained. COMPARISON: None. FINDINGS: There is no pneumonia, pleural effusion, or pneumothorax. The heart size is normal. IMPRESSION: 1. No acute cardiopulmonary disease. Reviewed, dictated and finalized at location A.
--- NOTE | ~2022-12-07 | US_ITS ---
US abdomen limited INDICATION: Right upper quadrant abdominal pain. PROCEDURE: Realtime right upper abdominal ultrasound. COMPARISON: No prior studies for comparison. FINDINGS: The pancreas is normal without focal mass or pancreatic ductal dilation. Liver echotexture is normal without focal mass or intrahepatic biliary dilatation. There is normal directional flow i n the portal vein. The gallbladder is normal without stones, gallbladder wall thickening or pericholecystic fluid. Comm on bile duct measures 2 mm. No sonographic Sanders's sign. IMPRESSION: 1: Normal limited abdominal ultrasound. Reviewed, dictated and finalized at location B.
--- NOTE | 2022-12-07 08:32 | ECG_ITS ---
Measurements Intervals [place] Rate: 110 P: 42 CA: 132 QRS: 33 QRSD: 81 T: -22 QT: 301 QTc: 408 Interpretive Statements SINUS TACHYCARDIA NONSPECIFIC ST & T-WAVE ABNORMALITY- ANTEROLAT/INF LEADS BASELINE ARTIFACT- II, III, AVF ABNORMAL ECG NO PREVIOUS ECG AVAILABLE FOR COMPARISON Electronically Signed On 12-07-2022 8:52:21 CDT by Lokesh Chand D.O.
[2022-12-07 09:01] LABS: Basophils Percent Auto 0.2 % (0.2-1.2); Hematocrit 31.3 % (37.0-47.0); Hemoglobin 9.7 g/dL (12.0-15.0); Immature Granulocyte Absolute 0.38 K/mm3 (0.00-0.031); Immature Granulocyte Percent A 2.2 % (0-0.5); Lymphocytes Absolute Auto 1.23 K/mm3 (0.9-3.2); Lymphocytes Percent Auto 7.2 % (18.3-44.2); Mean Corpuscular Hemoglobin 26.2 pg (26-34); Mean Corpuscular Volume 84.6 fl (80-100); Monocytes Absolute Auto 0.8 K/mm3 (0.1-0.6); Monocytes Percent Auto 4.5 % (2.6-8.5); Neutrophils Absolute Auto 14.7 K/mm3 (1.3-6.7); Neutrophils Percent Auto 85.9 % (45.5-73.1); Platelet Count Result 247 k/mm3 (150-375); Red Cell Distribution Width 12.8 % (11.5-14.5); White Blood Count 17.1 K/mm3 (4.5-10.0)
[2022-12-07 09:11] LABS: Alanine Aminotransferase 26 U/L (6-35); Albumin Level 4.4 g/dL (3.5-5.1); Alkaline Phosphatase 73 U/L (38-126); Anion Gap 10 mmol/L (8-16); Aspartate Amino Transferase 26 U/L (14-36); Bilirubin,Total 0.5 mg/dL (0.2-1.3); Blood Urea Nitrogen 7 mg/dL (7-17); Calcium 9.3 mg/dL (8.4-10.2); Carbon Dioxide 22 mmol/L (22-30); Chloride 103 mmol/L (98-107); Estimated CRCL calculation 186 ml/min; Estimated Glomerular Filt Rate > 60; Glucose 123 mg/dL (65-110); Lipase 41 U/L (23-300); Potassium 3.4 mmol/L (3.4-5.0); Sodium 135 mmol/L (137-145)
[2022-12-07] MEDS: SODIUM CHLORIDE 0.9% IV 1,000 ML 999 ML IV CONT (09:17)
[2022-12-07] MEDS: MORPHINE SULFATE (*CRX) 4 MG/ML INJ IV PUSH (09:17)
[2022-12-07] MEDS: PROMETHAZINE HCL 25 MG/ML AMPUL 12.5 MG IV PUSH (09:17)
[2022-12-07 09:20] LABS: INR 0.9; Partial Thromboplastin Time 22.1 SECONDS (22.3-36.8); Prothrombin Time 12.5 Seconds (11.1-14.7)
[2022-12-07 09:22] LABS: Troponin I < 0.012 ng/mL (0.000-0.034)
--- NOTE | 2022-12-07 10:45 | ED.CHESTPAIN ---
HPI - Chest Pain General Chief Complaint: Chest Pain Stated Complaint: Chest pain Time Seen by Provider: 12/07/22 08:48 History of Present Illness HPI narrative: This is a 22-year-old female G5, P2, who presents emergency department complaining of chest pain for the past day. The patient states she was seen in OB yesterday for tachycardia and started on a new medication. She states after taking the medication within 20 minutes she felt a pressure-like chest pain. The pain is rated 3/10, does not radiate but was briefly associated with nausea. She denies difficulty breathing, cough, contractions or bleeding from any source. Related Data Home Medications Medication Instructions Recorded Confirmed cyclobenzaprine 5 mg tablet 5 mg PO HS 12/06/22 12/06/22 Allergies Allergy/AdvReac Type Severity Reaction Status Date / Time ciprofloxacin [From Cipro] Allergy Stopped Verified 09/08/22 09:58 Breathing levofloxacin [From Levaquin] AdvReac Rash Verified 09/08/22 09:58 Review of Systems Review of Systems: CONSTITUTIONAL: Denies fever, chills, or sweats. CARDIOVASCULAR: Chest pain denies palpitations, or edema. RESPIRATORY: Denies cough or dyspnea. GASTROINTESTINAL: Nausea denies abdominal pain, vomiting, or diarrhea. GENITOURINARY: Denies dysuria or hematuria. SKIN: Denies rash or itching. MUSCULOSKELETAL: Denies back pain, joint pain, or myalgia. NEUROLOGIC: Denies headache, numbness, dizziness, or weakness. PSYCHIATRIC: Denies anxiety or depression. PMFSH Past Medical History Medical History History of miscarriage Surgical History Surgical History No pertinent past surgical history Social History Social History (Updated 12/07/22 @ 10:48 by Td Call MD) Smoking status: Never smoker Alcohol intake: never Substance use: never Exam Narrative: GENERAL: Well-developed, well-nourished, and in no acute distress. HEAD: Normocephalic, atraumatic. EYES: PERRLA and EOMI. ENT: Nares clear, no rhinorrhea or epistaxis. Mucous membranes moist. Oropharynx without tonsillar hypertrophy exudate or other lesions. NECK: Supple. No JVD CHEST: Clear to auscultation. No respiratory distress. No wheezes rales or rhonchi HEART: Regular rate and rhythm. No murmur heard. Normal peripheral pulses. ABDOMEN: Soft, gravid uterus, right upper quadrant tenderness to deep palpation, without rebound or guarding, nondistended, normal active bowel sounds. EXTREMITIES: Normal range of motion. No edema. SKIN: Warm, dry, no rash. NEURO: Alert and oriented x3. Moving all 4 limbs purposefully. PSYCH: Normal mood and affect. Course Course Emergency Course: 10:40 - heart tones between 144-156. CBC demonstrates elevated white blood cell count of 17. Hemoglobin of 9.7 with a baseline of 1.5. Platelets within normal limits. Chemistries demonstrate mild hyponatremia with sodium of 135 but is otherwise unremarkable. Troponin negative. Heart score 1. On reevaluation after medications and IV fluids, the patient states she feels significantly improved. 10:56 - I discussed the patient with OB, Dr. Green, no other work-up recommended at this time. We will repeat a troponin and if negative, plan for discharge with OB follow-up. 12:30 - Repeat troponin negative. Will discharge with OB follow-up. Discussed return and emergency precautions including signs/symptoms of ACS, respiratory distress and labor.. The patient voiced understanding and is comfortable with the plan. All questions answered to her satisfaction. Vital Signs Vital signs: Vital Signs Temperature 98.7 F 12/07/22 08:39 Pulse Rate 111 H 12/07/22 08:39 Respiratory Rate 16 12/07/22 08:39 Blood Pressure 120/79 12/07/22 08:39 Pulse Oximetry 99 12/07/22 08:39 Oxygen Delivery Room Air 12/07/22 08:39 Temperature 97.4 F L
[2022-12-07 12:08] LABS: Troponin I < 0.012 ng/mL (0.000-0.034)
== END 2022-12-07 12:42 | disposition home or self-care (01) ==
PROVIDERS: Emergency Provider Preventive Medicine Aerospace Medicine
DX: O26.899 Other specified pregnancy related conditions, unspecified trimester (principal); R07.89 Other chest pain; Z3A.00 Weeks of gestation of pregnancy not specified
CPT/HCPCS: 36415; 71046; 76705; 80053; 83690; 84484; 85025; 85610; 85730; 93005; 96361; 96374; 96375; 99284; J2270; J2550; J7030

== ENCOUNTER 2023-12-06 13:19 | Observation (INO) | payer BC, MEDICAID, SELFPAY ==
[2023-12-06] VITALS (47 sets, daily range): BP systolic 90–147; BP diastolic 62–90; PULSE 67–193; O2SAT 90–100
--- NOTE | 2023-12-06 13:19 | OBADM ---
This patient, Mariam Lea, admitted to the OB room OB Post 117 for observation. Patient/family oriented to hospital policies and general routines including ID bracelet, bed and alarms, visiting hours, pain management, procedures, bathroom and other care routines, personal items, smoking policy, room service/diet, and visiting hours. Patient/Family are encouraged to report perceived risks to care and to ask questions if they do not understand what they are told or what they should do.
[2023-12-06 14:15] LABS: Hematocrit 34.7 % (37.0-47.0); Hemoglobin 11.3 g/dL (12.0-15.0); Mean Corpuscular HGB Conc 32.6 g/dl (32-36); Mean Corpuscular Hemoglobin 27.2 pg (26-34); Mean Corpuscular Volume 83.6 fl (80-100); Mean Platelet Volume 10.9 fl (7.4-10.4); Platelet Count Result 189 k/mm3 (150-375); Red Blood Count 4.15 M/mm3 (4.2-5.4); White Blood Count 10.5 K/mm3 (4.5-10.0)
[2023-12-06] MEDS: LACTATED RINGERS 1,000 ML 999 ML IV CONT ×2 (14:24→16:39)
[2023-12-06 14:26] LABS: Add Urine Microscopic? YES; Appearance Urine Clear (Clear); Bacteria Urine Rare /hpf; Bilirubin Urine Negative (Negative); Blood Urine Negative (Negative); Color Urine Yellow (Yellow); Glucose Urine UA Negative (Negative); Ketones Urine Negative (Negative); Leukocyte Esterase Ur 1+ LEU/UL (Negative); Nitrate Urine Negative (Negative); Non Pathogenic Casts 0-2; Protein Urine Negative (Negative); RBC Urine 0-2 /hpf (0-2); Squamous Epithelial Cell Urine Moderate /hpf (Few)
[2023-12-06 14:27] LABS: Alanine Aminotransferase 11 U/L (6-35); Albumin Level 3.7 g/dL (3.5-5.1); Alkaline Phosphatase 79 U/L (38-126); Anion Gap 11 mmol/L (4-12); Aspartate Amino Transferase 15 U/L (14-36); Bilirubin,Total 0.4 mg/dL (0.2-1.3); Blood Urea Nitrogen 6 mg/dL (7-17); Carbon Dioxide 21 mmol/L (22-30); Chloride 103 mmol/L (98-107); Estimated Glomerular Filt Rate > 60; Glucose 100 mg/dL (65-110); Potassium 3.6 mmol/L (3.4-5.0); Sodium 135 mmol/L (137-145)
[2023-12-06 14:40] LABS: Iron 43 ug/dL (37-170)
[2023-12-06 14:50] LABS: Percent Iron Saturation 7 % (20-50)
[2023-12-06 14:58] LABS: Thyroid Stimulating Hormone 0.864 uIU/mL (0.465-4.680)
[2023-12-06 15:19] LABS: Ferritin 3.93 ng/mL (6.24-137)
--- NOTE | 2023-12-06 16:30 | PC.NURSE ---
Dr Dumont notified of patient feeling better and less dizzy after this last time getting up. Ok to give patient another bag of fluid.
--- NOTE | 2023-12-06 18:00 | PC.NURSE ---
Patient states that she is feeling much better, no c/o of dizziness when standing. Steady gait noted. Urine sample obtained.
[2023-12-06 18:11] LABS: Creatinine Urine 15.5 mg/dL; Total Protein Urine Random 12 mg/dL; Ur Ttl Prot Creatinine Ratio 0.77 mg/mg (0-0.20)
--- NOTE | 2023-12-06 18:31 | PC.NURSE ---
Dr Dumont notified of PC ratio, patient to follow up next week here for BPP and NST. OK to dc home.
--- NOTE | 2023-12-09 08:51 | P.PNOB_ITS ---
OB - Triage/Final Diagnosis Visit Information Comments/Additional reasons for admission: I have assessed the risk for this patient, Mariam Lea, and determined that she would benefit from observation care. Evaluation Laboratory results: Laboratory Tests 12/06/23 12/06/23 13:48 17:57 WBC 10.5 H RBC 4.15 L Hgb 11.3 L Hct 34.7 L MCV 83.6 MCH 27.2 MCHC 32.6 RDW 14.0 Plt Count 189 MPV 10.9 H Sodium 135 L Potassium 3.6 Chloride 103 Carbon Dioxide 21 L Anion Gap 11 BUN 6 L Creatinine 0.30 L Estim Creat Clear Calc Not Reportable Estimated GFR > 60 Glucose 100 Calcium 9.0 Iron 43 TIBC 614 H % Saturation 7 L Ferritin 3.93 L Total Bilirubin 0.4 AST 15 ALT 11 Alkaline Phosphatase 79 Total Protein 7.0 Albumin 3.7 TSH 0.864 Urine Color Yellow Urine Appearance Clear Urine pH 7.0 Ur Specific [place] 1.020 Urine Protein Negative Urine Glucose (UA) Negative Urine Ketones Negative Ur Blood (Man) Negative Urine Nitrate Negative Urine Bilirubin Negative Urine Urobilinogen 1.0 Leukocyte Esterase Rfl 1+ H Urine RBC 0-2 Urine WBC 11-20 H Ur Squamous Epith Cells Moderate Urine Bacteria Rare Urine Casts 0-2 U Random Total Protein 12 Urine Creatinine 15.5 Protein/Creat Ratio 2 0.77 H Final Diagnosis (1) Pre-eclampsia: Code(s): O14.90 - Unspecified pre-eclampsia, unspecified trimester Status: Acute
== END 2023-12-06 18:35 | disposition home or self-care (01) ==
PROVIDERS: Admitting Provider Obstetrics & Gynecology; Visit Provider Obstetrics & Gynecology
DX: O14.93 Unspecified pre-eclampsia, third trimester (principal); Z3A.29 29 weeks gestation of pregnancy
CPT/HCPCS: 36415; 80053; 81001; 82570; 82728; 83540; 83550; 84156; 84443; 85027; 87086; 87088; 96360; G0378; G0379; J7120

== ENCOUNTER 2023-12-17 09:16 | Outpatient (CLI) | payer BC, MEDICAID, SELFPAY ==
[2023-12-17 09:33] VITALS: BP 102/64; PULSE 93
[2023-12-17 09:55] VITALS: BP 102/64; PULSE 88
--- NOTE | 2023-12-17 09:57 | PC.NURSE ---
Called Dr. Dumont with pt status. Pt complaining of leaking fluid. ROM plus negative. Vaginal discharge noted on exam. Reactive tracing. July D/C home.
[2023-12-17 10:20] LABS: OBXCEM ROM Plus Negative (Negative)
== END 2023-12-17 10:03 | disposition home or self-care (01) ==
LOC: ANHOBOP 09:22 → ANHOBPP 09:23
PROVIDERS: Visit Provider Obstetrics & Gynecology
DX: O42.90 Premature rupture of membranes, unspecified as to length of time between rupture and onset of labor, unspecified weeks of gestation (principal); Z3A.00 Weeks of gestation of pregnancy not specified
CPT/HCPCS: 59025; 84112; 99199

== ENCOUNTER 2023-12-27 04:41 | Inpatient (IN) | payer BC, SELFPAY ==
[2023-12-27] VITALS (11 sets, daily range): BP systolic 112–131; BP diastolic 63–83; PULSE 52–99; RESP 16; TEMP 36.6–37.2; O2SAT 100; BMI 23.4
[2023-12-27 05:43] LABS: Basophils Percent Auto 0.4 % (0.2-1.2); Eosinophils Absolute Auto 0.1 K/mm3 (0-0.3); Eosinophils Percent Auto 0.8 % (0-4.4); Hemoglobin 11.3 g/dL (12.0-15.0); Immature Granulocyte Absolute 0.07 K/mm3 (0.00-0.031); Immature Granulocyte Percent A 0.8 % (0-0.5); Lymphocytes Absolute Auto 1.61 K/mm3 (0.9-3.2); Lymphocytes Percent Auto 19.1 % (18.3-44.2); Mean Corpuscular HGB Conc 31.4 g/dl (32-36); Mean Corpuscular Hemoglobin 26.2 pg (26-34); Mean Corpuscular Volume 83.3 fl (80-100); Mean Platelet Volume 11.4 fl (7.4-10.4); Monocytes Absolute Auto 0.8 K/mm3 (0.1-0.6); Monocytes Percent Auto 9.8 % (2.6-8.5); Neutrophils Absolute Auto 5.8 K/mm3 (1.3-6.7); Neutrophils Percent Auto 69.1 % (45.5-73.1); Platelet Count Result 204 k/mm3 (150-375); Red Blood Count 4.32 M/mm3 (4.2-5.4); Red Cell Distribution Width 13.3 % (11.5-14.5); White Blood Count 8.5 K/mm3 (4.5-10.0)
[2023-12-27] MEDS: BETAMETHASONE SOD PHOS/ACETATE 30 MG/5 ML VIAL 12 MG IM (05:52)
[2023-12-27] MEDS: AMPICILLIN 2 GM/NS 100 ML 2 GM/100 ML BAG IVPB (05:55)
[2023-12-27] MEDS: LACTATED RINGERS 1,000 ML 125 ML IV CONT (05:56)
[2023-12-27] MEDS: NIFEdipine 30 MG TAB.ER.24 PO (05:56)
--- NOTE | 2023-12-27 06:02 | PC.NURSE ---
1831- Patient arrives to OB unit with complaints of contractions and vaginal pressure. Patient is . Patient EDC is 02/15/24. Patient states she has no complications with this . Patient states she had no vaginal bleeding or leaking of fluid. Patient states she has positive movement. [id number] phoned MD Drew to notify MD of patient arrival and patient complaints. gave orders to check cervix. Cervical exam is 4,90%,-2. MD gave orders to admit patient. MD gave medication orders, see MAR for orders. MD on her way in to assess patient.
--- NOTE | 2023-12-27 06:05 | P.HP_ITS ---
H&P: HPI History of Present Illness Date/Time: 12/27/23 06:05 Chief Complaint: labor Narrative: Patient is a 23 year old at 32w6d who presents for painful contractions starting overnight. She denies leakage of fluid or vaginal bleeding. She reports good movement. Her has been complicated by a history of delivery in her G3 at 34 weeks after spontaneous labor. She also has a history of gestational hypertension in her G5 however this has been uncomplicated. [facility] Past Medical History Medical History History of miscarriage Surgical History Surgical History No pertinent past surgical history Social History Social History Smoking status: Never smoker Alcohol intake: never Substance use: never Meds Home Medications and Allergies Home Medications Medication Instructions Recorded Confirmed Type cyclobenzaprine 5 mg tablet 5 mg PO HS 12/06/22 12/06/22 History famotidine 20 mg tablet 20 mg PO BID PRN Heartburn or 12/06/22 Rx reflux #60 tabs nifedipine 30 mg tablet,extended 30 mg PO DAILY #30 tabs 12/06/22 Rx release Allergies Allergy/AdvReac Type Severity Reaction Status Date / Time ciprofloxacin [From Cipro] Allergy Stopped Verified 09/08/22 09:58 Breathing levofloxacin [From Levaquin] AdvReac Rash Verified 09/08/22 09:58 Exam Const: General: comfortable and no acute distress HENMT: Mouth: Yes moist mucous membranes Resp: Effort & Inspection: normal respiratory effort Cardio: Rate: regular rate GI: GI Palp: Yes Soft to palpation and No Tenderness to palpation present (GI) Skin: General skin exam: normal color Extrem: General: normal to inspection Psych: Mental Status: mental status grossly normal H&P: Results Labs Labs: Short CBC 12/27/23 Range/Units 05:38 WBC 8.5 (4.5-10.0) K/mm3 Hgb 11.3 L (12.0-15.0) g/dL Hct 36.0 L (37.0-47.0) % Plt Count 204 (150-375) k/mm3 Assessment and Plan Assessment and plan (1) labor in third trimester: Code(s): O60.03 - labor without delivery, third trimester Status: Acute Assessment and Plan: - painful contractions worsening in the last 2 hours - no leakage of fluid; some bloody show but no overt vaginal bleeding - hx of 34 week delivery in G3 - SVE 4/80/-2 > 6/90/-2 in 1 hour - BSUS: Cephalic, normal GARRICK - most recent growth US 12/10: 1582gm (35%) - Ampicillin for GBS unknown - BMZ x1 given at 0545 - procardia x1 for tocolysis - toco: q2-5min - FHR category I - plan for delivery at [place] due to advanced dilation and quick cervical change; will plan to transfer after delivery due to gestational age
[2023-12-27 06:36] LABS: HIV 1/2 Ab P24 Ag Result Negative (Negative)
--- NOTE | 2023-12-27 06:37 | LDADM ---
This patient, Mariam Lea, was admitted to Labor/Delivery/Recovery 107 on 12/27/23 at 04:41. Plans for labor, pain management and were discussed with patient. Patient/family oriented to hospital policies and general routines including ID bracelet, bed and alarms, visiting hours, pain management, procedures, bathroom and other care routines, personal items, smoking policy, room service/diet and guest tray routines, security routines, and visiting hours. Patient/Family are encouraged to report perceived risks to care and to ask questions if they do not understand what they are told or what they should do. See OBIX for further documentation.
[2023-12-27] MEDS: OXYTOCIN 30 UNITS/NS 500 ML 30 UNITS/500 ML BAG 999 UNITS IV CONT (06:53)
--- NOTE | 2023-12-27 07:06 | P.PCNOB_ITS ---
OB - Vaginal Delivery Note Procedure Delivery date: 12/27/23 Events: Other ( labor, suspected placental abruption) Induction method: None Delivery monitor: External FHT and External Uterine Route of delivery: Episiotomy description: None Laceration Description: None Specimen: Yes Quantitative Blood Loss (ml): 200 Anesthesia type: None Disposition: Floor Complications: No immediate complications Narrative: See H&P and notes for details on patient's admission and labor. She progressed to complete cervical dilation and at the appropriate time began pushing. With adequate expulsive efforts by the mother, the baby's head was delivered without difficulty. Nuchal cord was not present. The baby's right shoulder was anterior and delivered under the pubic symphysis without difficulty. The posterior shoul linda and the rest of the baby delivered without difficulty. The umbilical cord was doubly clamped and cut after 20 seconds of delayed cord clamping. Care of the infant was then assumed by the nursing staff. [place] Baby Date of : 12/27/23 Gestational Age by Date: 32 gender: Male presentation: vertex position: Left Occiput Anterior Placenta delivery description: Spontaneous and Other (large amount of clots, suspected abruption) Cord Vessel Description: 3 Vessels
[2023-12-27] MEDS: OXYTOCIN 30 UNITS/NS 500 ML 30 UNITS/500 ML BAG 125 UNITS IV CONT (07:21)
[2023-12-27 07:41] LABS: Amphetamine Screen Urine Negative (Negative); Barbiturate Screen Urine Negative (Negative); Benzodiazepines Screen Urine Negative (Negative); Cannabinoid Screen Urine Negative (Negative); Cocaine Screen Urine Negative (Negative); Methadone Screen Urine Negative (Negative); Opiate Screen Urine Negative (Negative); Phencyclidine Screen Urine Negative (Negative)
[2023-12-27 09:08] LABS: Rapid Plasma Reagin Non-Reactive (NonReactive)
[2023-12-27] MEDS: BENZOCAINE 20% AER SPR (*SP) 56 GM CAN 1 SPRAY TOPICAL (09:45)
[2023-12-27] MEDS: WITCH HAZEL 40 PADS 1 PAD TOPICAL (09:45)
--- NOTE | 2023-12-27 09:57 | OBPPTRN ---
Patient transferred to post room #285 via wheelchair. Support person present. Oriented to unit, room, information board, rooming in, admission packet and security measures. Patient verbalizes understanding.
[2023-12-27 10:00] LABS: Hepatitis B Surface Antigen Negative (Negative); Rubella IgG Antibody 8.2 IU/ML
--- NOTE | 2023-12-27 10:30 | PC.NURSE ---
Offered patient a pump and assistance, pt declined and expressed that she will begin pumping on arrival to [facility]. Expressed the importance of early pumping and nipple stimulation.
--- NOTE | 2023-12-27 13:08 | PM.OBDSVD ---
DS: Admitting Diagnosis Discharge Date 12/27/23 Admitting Diagnosis labor DS: Discharge Diagnosis Discharge Diagnosis (1) (spontaneous vaginal delivery): Code(s): O80 - Encounter for full-term uncomplicated delivery Status: Acute (2) labor in third trimester: Code(s): O60.03 - labor without delivery, third trimester Status: Acute OB - DS: Summary OB Procedures : PTL Mgmt OB Procedures Intrapartum: Spontaneous Vag Delivery OB Procedures: : None Peripartum Data Laceration Description: None Episiotomy description: None Time Spent with Patient Time attestation: Total time spent providing and/or coordinating discharge services: DS: Data Data Completed and Pending Pending studies at discharge: Pending at discharge 12/27/23 07:00 Surgical [PTH] Routine Labs on day of discharge: Labs from last 24 hours 12/27/23 12/27/23 07:03 05:38 WBC 8.5 RBC 4.32 Hgb 11.3 L Hct 36.0 L MCV 83.3 MCH 26.2 MCHC 31.4 L RDW 13.3 Plt Count 204 MPV 11.4 H Immature Gran % (Auto) 0.8 H Neut % (Auto) 69.1 Lymph % (Auto) 19.1 [place] % (Auto) 9.8 H Eos % (Auto) 0.8 Baso % (Auto) 0.4 Lymph # (Auto) 1.61 [place] # (Auto) 0.8 H Eos # (Auto) 0.1 Baso # (Auto) 0.0 Abs Immat Gran (auto) 0.07 H Absolute Neuts (auto) 5.8 Absolute Nucleated RBC 0.000 Nucleated RBC % 0.0 Urine Opiates Screen Negative Urine Methadone Screen Negative Ur Barbiturates Screen Negative Ur Phencyclidine Scrn Negative Ur Amphetamine Screen Negative U Benzodiazepines Scrn Negative Urine Cocaine Screen Negative U Cannabinoids Screen Negative RPR Non-reactive Hep Bs Antigen Negative HIV 1&2 Ab/P24 Ag 4thGn Negative Rubella IgG Antibody 8.2 L Blood Type A Positive Antibody Screen Negative Discharge Plan Discharge Attending physician on discharge: Kong Russell Discharging Clinician: Kong Russell Patient Disposition: Home, Self-Care Activity: pelvic rest and other - see discharge instructions Diet: regular Discharge Instructions: Education: Mom and Baby Guide Given to: Mother Follow-Up: Call your delivering provider's office for an appointment to be seen in: 4 Weeks Mom and baby should come to the [facility] for the follow-up appointment. Appointment Date/Time: December 28, 2023 at 8:00 am What to expect at your follow-up visit: Blood Pressure Check Physical Assessment Call [phone] if you are unable to keep your appointment time. BREAST CARE: * Wear a snug supportive bra. * For engorgement discomfort: Breast Feeding: * Apply warm moist washcloths * Express milk as needed to relieve engorgement * Wear loose clothing Bottle Feeding: * May apply ice packs * For sore nipples: * Identify correct latch-on * Apply warm moist washcloths before and after nursing * Air dry nipples after nursing * May apply Lansinoh cream to nipples PERINEAL CARE: * Until bleeding stops, use your anamaria bottle after urinating * Change your pad frequently throughout the day * You may take sitz baths several times a day (fill your bathtub with warm water and soak for 20 minutes.) Do NOT bathe in the water * No tub baths until seen by your physician - You may shower ACTIVITY: * Rest as much as possible. * Do not exercise or lift anything heavier than your baby (such as laundry or other children.) * Avoid stairs or driving as much as possible. * Do not put anything into the vagina. No douching, tampons, or sexual activity until seen by physician. NOTIFY PHYSICIAN IF YOU HAVE ANY QUESTIONS OR IF ANY OF THE FOLLOWING SYMPTOMS OCCUR: * If your episiotomy or incision becomes red, swollen, or more painful than what you have experienced in the hospital. * If your vaginal bleeding becomes foul smelling.
[2023-12-28 07:50] VITALS: BP 106/73; PULSE 64; RESP 18; TEMP 36.4; O2SAT 100
== END 2023-12-27 13:20 | disposition home or self-care (01) | DRG 805 ==
LOC: ANHLDR 06:16 → ANHOB2 13:01 → ANHLDR 12-30 09:01 → ANHOB2 12-30 09:01
PROVIDERS: Admitting Provider Obstetrics & Gynecology; Visit Provider Obstetrics & Gynecology
DX: O60.14X0 Preterm labor third trimester with preterm delivery third trimester, not applicable or unspecified (principal); O45.93 Premature separation of placenta, unspecified, third trimester; Z37.0 Single live birth; Z3A.32 32 weeks gestation of pregnancy; O62.3 Precipitate labor
CPT/HCPCS: 36415; 80307; 85025; 86592; 86703; 86762; 86850; 86900; 86901; 87340; A9270; G0432; J0290; J0702; J2590; J2795; J7120

== ENCOUNTER 2024-01-25 10:13 | Emergency (ER) | payer BC, SELFPAY ==
--- NOTE | 2024-01-25 10:21 | ED.ABDPAIN ---
HPI - Abdominal Pain General Chief Complaint: Unspecified Stated Complaint: abd pain Time Seen by Provider: 01/25/24 10:21 Source: patient Mode of arrival: ambulatory Limitations: no limitations History of Present Illness HPI narrative: 23 years old white female 4 weeks , wrist pain bilaterally 3 weeks ago, started on dicloxacillin 4 times a day for 10 days, finished a course, believes that her breast pain is getting worse. She denies any fever, chills, nausea, vomiting. Patient did pump 4 times a day. Related Data Allergies Allergy/AdvReac Type Severity Reaction Status Date / Time ciprofloxacin [From Cipro] Allergy Stopped Verified 09/08/22 09:58 Breathing levofloxacin [From Levaquin] AdvReac Rash Verified 09/08/22 09:58 Review of Systems Review of Systems: All systems reviewed & are unremarkable except as noted in HPI and below PMFSH Past Medical History Medical History History of miscarriage Surgical History Surgical History No pertinent past surgical history Social History Social History Smoking status: Never smoker Alcohol intake: never Substance use: never Do You Feel Safe in your Home?: Yes Lack of Transportation: No Lack of Food: Never True Current Housing: I Have Housing Concerned About Future Housing: No Difficulty Paying Gas/Electric Bills: No Difficulty Paying for Meds: No Currently Unemployed: No Education: Associate Degree Difficulty w/ Childcare or Family Care: No Spiritual care concerns: No Exam Narrative: General appearance: Well-developed, well-nourished Skin: Normal color , breast exam bilaterally showed no erythema, no localized tenderness, soft, male can be expressed easily, looks within normal color and consistency, no lymphadenopathy patient had bilateral breast augmentation Head: Normocephalic, nontraumatic Chest and respiratory: Airway patent, no respiratory distress, no accessory muscle use Heart: Regular rate/rhythm Abdomen: Soft, nontender, no organomegaly, quiet bowel sounds Vascular: Normal peripheral pulses, normal capillary refill. 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 as tested, no gross motor deficit MDM - Abdominal Pain MDM Narrative Medical decision making narrative: breast tenderness and pain, vital signs are stable Physical examination showed no signs of mastitis or breast abscess, Breast engorgement is my concern Differential Diagnosis Differential diagnosis: Likely other ( breast engorgement) Critical Care Time Critical Care Time Critical Care Time: No Discharge Plan Discharge Clinical Impression: Breast engorgement, Patient Disposition: Home, Self-Care Condition: Stable Additional Instructions: Return if symptoms are worsening , call your OBGYN for appointment, take Tylenol as as needed for aches and pain, continue home medications. Gentle massage breast support Frequent pumping Warm compresses before attempting, cold packs apply to breast after emptying Ibuprofen 600 every 6 hours as needed Follow-up/Referrals: Tal Green MD [Physician] - 01/27/24 PHYSICIAN NOT ON STAFF,NONSTAFF [Non-Staff] -
[2024-01-25 10:23] VITALS: BP 102/72; PULSE 70; RESP 16; TEMP 36.4; O2SAT 98
--- NOTE | 2024-01-25 10:45 | PC.NURSE ---
Bilateral breast cultures obtained. Pt tolerated well
[2024-01-25 11:00] VITALS: BP 105/79; PULSE 76; RESP 16; TEMP 36.4; O2SAT 99
--- NOTE | 2024-01-25 11:05 | PC.NURSE ---
Pt voiced she has not been wearing a bra. Sr. Krishnan & this RN instructed pt on need to provide support for breast. Advised to wear bra even while sleeping until mastitis improves. Pt voices understanding
== END 2024-01-25 11:07 | disposition home or self-care (01) ==
PROVIDERS: Emergency Provider Emergency Medicine
DX: O92.79 Other disorders of lactation (principal)
CPT/HCPCS: 87070; 87181; 87205; 99283

== ENCOUNTER 2024-03-03 00:50 | Day surgery (SDC) | payer BC, MEDICAID, SELFPAY ==
--- NOTE | 2024-02-17 16:33 | SUR.PREOP ---
Report to the Outpatient Waiting Room, entrance under the green pavilion located off [facility], at time _0830_ on date _03/03/24_. Planned Procedure Time: _1030_.? Time changes happen often and if your time is changed the preop area will call you the afternoon before. - You and your visitor will be asked to self-screen and do not enter if you have any COVID symptoms. Please call surgeon if you need to reschedule. - A mask is optional within the hospital at this time. Patients may have clear liquids (water, carbonated beverages, clear teas, apple juice) until 3 hours prior to surgery with a maximum of 20 ounces. - No food from midnight until time of surgery and no smoking. This includes no chewing gum, candy or mints. - Infants may have breast milk until 4 hours before surgery, infant formula 6 hours prior to surgery. - Children will be allowed to drink immediately following surgery.? If applicable, please bring a bottle or sippy cup to assist with drinking. Juice, water, soda, and popsicles are readily available.? For infants on formula, please bring formula the day of surgery.? Pacifiers are allowed. Take only the following medications with a SIP of water on the morning of surgery: _NA_ DO NOT STOP ANY OF YOUR OTHER PRESCRIPTION MEDICATIONS PRIOR TO SURGERY EXCEPT THE FOLLOWING Medications to discontinue per physician __NA__ Date to take last dose_NA_ Please no make-up, nail citizen of [place], hairspray, perfume, deodorant, or body powder the day of surgery.? No jewelry (including any body piercings) or valuables the day of surgery, leave them at home.? Please take a shower or bath the night before, or the morning of, surgery with an antibacterial soap.? Wear comfortable, loose fitting clothing.? Children are encouraged to wear pajamas. - Jewelry must be removed prior to entering the operating room.? Rings and piercings that are not removed may be cut off. - The hospital will not accept responsibility for valuables.? - Please leave all valuables, including medications, at home the day of surgery. If you are going home after surgery, a licensed goat driver must drive you home.? - NO public transportation without another adult if you receive anesthesia. - We recommend that an adult stay with you for 24 hours following discharge. - We also recommend that you do not drive, make important decision, drink alcoholic beverages, or take any drugs that were not prescribed by your health care provider for at least 24 hours after your discharge time. For Pediatric surgeries, we recommend two adults accompany the child home. Follow any additional instructions given to you from your surgeon. Telephone instructions given to _Maevee_and asked if any additional questions and then verbalized understanding. Patient advised to call surgeon office or pre surgery nurse liaison [phone] if any additional questions.
[2024-02-17 16:42] VITALS: BMI 20.3
--- NOTE | 2024-03-02 14:29 | WPDANESEPPF ---
Anes - Initial Pre Proc Eval Procedure: Operation Date: 03/03/24 10:30 Proposed Procedures p Bilateral Laparoscopic Salpingectomy - Tal Green MD Date/Time: 03/02/24 14:29 Surgeon: Tal Green MD Pre Op Diagnosis: desires sterilization Patient Data Age: 23 Gender: F Height: 1.6 m Weight: 52.17 kg Allergies Allergy/AdvReac Type Severity Reaction Status Date / Time ciprofloxacin (From Cipro) Allergy Difficulty Verified 03/03/24 08:42 Breathing levofloxacin (From Levaquin) AdvReac Rash Verified 03/03/24 08:42 Home Medications ?Medication ?Instructions ?Recorded ?Confirmed ?Type No Home Medications 02/17/24 02/17/24 History Results Review: All pre-operative results and documents have been reviewed as part of the pre-operative evaluation. [facility] Past Medical History Medical History History of miscarriage Surgical History Surgical History No pertinent past surgical history Social History Social History Smoking status: Never smoker Second hand tobacco smoke exposure: No Alcohol intake: never Substance use: never Substance use type: does not use Do You Feel Safe in your Home?: Yes Lack of Transportation: No Lack of Food: Never True Current Housing: I Have Housing Concerned About Future Housing: No Difficulty Paying Gas/Electric Bills: No Difficulty Paying for Meds: No Currently Unemployed: No Education: Associate Degree Difficulty w/ Childcare or Family Care: No Living arrangements: with family Additional living arrangements comments: with and children Spiritual care concerns: No Anes - Eval Final PreProcedure Day of Procedure 03/02/24 14:29 Patient weight: normal Heart: regular rate and rhythm Lungs: clear to auscultation Neurological: alert and oriented Last oral intake: >/= 8 hours Emergent: no Anesthetic plan: proceed Results Review: All pre-operative results and documents have been reviewed as part of the pre-operative evaluation. Informed Consent: The patient's anesthetic plan and its attendant risks and benefits were discussed with the patient/family/POA. Questions were solicited and answers provided to the satisfaction of the patient/family/POA.
[2024-03-03] VITALS (9 sets, daily range): BP systolic 103–134; BP diastolic 70–85; PULSE 48–65; RESP 14–18; TEMP 36.3–36.7; O2SAT 100
[2024-03-03] MEDS: ACETAMINOPHEN 500 MG TABLET 1000 MG PO (09:14)
[2024-03-03] MEDS: LACTATED RINGERS 1,000 ML 30 ML IV CONT ×2 (09:20→12:50)
[2024-03-03] MEDS: KETOROLAC 15 MG/ML VIAL (*BKC) IV PUSH (09:21)
[2024-03-03 09:44] LABS: BEDSIDEPREGUCG Negative (Negative)
--- NOTE | 2024-03-03 10:29 | WPDANESEPPF ---
Anes - Initial Pre Proc Eval Procedure: Operation Date: 03/03/24 10:30 Proposed Procedures p Bilateral Laparoscopic Salpingectomy - Tal Green MD Date/Time: 03/03/24 10:29 Surgeon: Tal Green MD Pre Op Diagnosis: desires sterilization Patient Data Age: 23 Gender: F Height: 1.6 m Weight: 54.4 kg Last Vital Signs Temp 36.3 C L 03/03/24 08:43 Pulse 65 03/03/24 08:43 Resp 16 03/03/24 08:43 BP 116/80 03/03/24 08:43 Pulse Ox 100 03/03/24 08:43 O2 Del Method Room Air 03/03/24 08:43 Allergies Allergy/AdvReac Type Severity Reaction Status Date / Time ciprofloxacin (From Cipro) Allergy Difficulty Verified 03/03/24 08:42 Breathing levofloxacin (From Levaquin) AdvReac Rash Verified 03/03/24 08:42 Home Medications ?Medication ?Instructions ?Recorded ?Confirmed ?Type No Home Medications 02/17/24 02/17/24 History Laboratory Tests 03/03/24 08:43 POC Urine HCG, Qual Negative (Negative) Patient hx anesthesia problems: none Family hx anesthesia problems: none Results Review: All pre-operative results and documents have been reviewed as part of the pre-operative evaluation. [facility] Past Medical History Medical History History of miscarriage Surgical History Surgical History No pertinent past surgical history Social History Social History Smoking status: Never smoker Second hand tobacco smoke exposure: No Alcohol intake: never Substance use: never Substance use type: does not use Do You Feel Safe in your Home?: Yes Lack of Transportation: No Lack of Food: Never True Current Housing: I Have Housing Concerned About Future Housing: No Difficulty Paying Gas/Electric Bills: No Difficulty Paying for Meds: No Currently Unemployed: No Education: Associate Degree Difficulty w/ Childcare or Family Care: No Living arrangements: with family Additional living arrangements comments: with and children Spiritual care concerns: No Anes - Eval Final PreProcedure Day of Procedure 03/03/24 10:29 Patient weight: normal Heart: regular rate and rhythm Lungs: clear to auscultation Airway: Mallampati scale class II Neurological: alert and oriented Last oral intake: >/= 8 hours ASA classification: II Emergent: no Anesthetic plan: proceed Anesthesia type and monitoring: general ETT and standard monitoring Results Review: All pre-operative results and documents have been reviewed as part of the pre-operative evaluation. Informed Consent: The patient's anesthetic plan and its attendant risks and benefits were discussed with the patient/family/POA. Questions were solicited and answers provided to the satisfaction of the patient/family/POA.
--- NOTE | 2024-03-03 10:47 | WPDHPUPDATE1 ---
History and Physical Update Update Date/Time: 03/03/24 10:47 History and Physical has been reviewed, including an updated exam of the patient. There are NO changes in the patient's condition. Risks, benefits, and alternatives have been discussed and questions answered. Patient agrees to proceed with procedure.
--- NOTE | 2024-03-03 11:45 | P.OP_ITS ---
Procedure Note - Detailed Date of Procedure 03/03/24 Pre-op Diagnosis desires sterilization Post-op Diagnosis Same Procedure Performed Laparoscopic bilateral salpingectomy Surgeon Tal Green MD Anesthesia General Indications Unwanted fertility Findings Normal pelvic anatomy Description of Procedure The patient was taken the operating room. She was prepped and draped in the dorsal lithotomy position after induction of general anesthesia. A 5 mm skin incision was made in the left upper quadrant of the abdominal skin. A 5 mm trocar was inserted the intra-abdominal cavity under direct visualization of the scope. Pneumoperitoneum was achieved. A 5 mm trocar was inserted in the left lower quadrant identical fashion. A 5 mm infraumbilical trocar was inserted in identical fashion as well. The bilateral fallopian tubes were removed. This was done by using a LigaSure cautery. The mesosalpinx adjacent to the tube was cauterized transected with LigaSure. This was initiated in the area the ovary and in a stepwise fashion moved medially to the area of the cornu of the uterus. Once there the fallopian tube was cauterized and transected. This was done in identical fashion on each side. The fallopian tubes were taken out through the left lower quadrant trocar site. The pneumoperitoneum was reduced. The trocars removed. The skin was closed with subcuticular 4 Monocryl and covered with D ermabond. She was taken to cover stable condition. Sponge lap and needle counts were correct x2. Estimated Blood Loss 5 Drains No Packing No Pathology Yes Complications No immediate complications Condition Stable Disposition PACU
[2024-03-03] MEDS: fentaNYL CITRATE INJ (*CRX) 100 MCG/2 ML VIAL 25 MCG IV PUSH ×2 (12:31→12:34)
[2024-03-03] MEDS: ONDANSETRON INJ 4 MG/2 ML VIAL IV PUSH (12:45)
[2024-03-03] MEDS: oxyCODONE HCL (*CRX) 5 MG TAB IR PO (13:03)
[2024-03-03] MEDS: diphenhydrAMINE HCl INJ 50 MG/ML VIAL 25 MG IV PUSH (13:44)
[2024-03-03] MEDS: SCOPOLAMINE 1 MG PATCH 1 PATCH TRANSDERM (13:44)
== END 2024-03-03 14:10 | disposition home or self-care (01) ==
PROVIDERS: Visit Provider Obstetrics & Gynecology
PROC: (CPT 49320; principal; 2024-03-03 10:30)
DX: Z30.2 Encounter for sterilization (principal); I10 Essential (primary) hypertension; J45.909 Unspecified asthma, uncomplicated; G89.18 Other acute postprocedural pain; Z98.890 Other specified postprocedural states; Z79.82 Long term (current) use of aspirin; Z80.3 Family history of malignant neoplasm of breast; Z82.49 Family history of ischemic heart disease and other diseases of the circulatory system
CPT/HCPCS: 58661; 36415; 71046; 71275; 80053; 83690; 83735; 84484; 84703; 85025; 85380; 85610; 85730; 88302; 93005; 96361; 96374; 99284; A9270; J1100; J1200; J1885; J2003; J2250; J2405; J2704; J3010; J7030; J7120; Q9967

== ENCOUNTER 2024-03-03 21:52 | Emergency (ER) | payer BC, MEDICAID, SELFPAY ==
--- NOTE | ~2024-03-03 | XR_ITS ---
EXAMINATION: XR chest 2V Exam Date/Time: 03/03/2024 22:12 TRUCK CATERER HISTORY: chest pain Comparison: 12/07/2022. RESULT: Lines, tubes, and devices: Bilateral breast implants. Lungs and pleura: Clear. Cardiomediastinal silhouette: Stable. Other: No acute osseous or upper abdominal finding. IMPRESSION: No acute cardiopulmonary process. Reviewed, dictated and finalized at location K. K CATERER
--- NOTE | ~2024-03-03 | CT_ITS ---
Clinical Indication: Chest pain, shortness of breath, recent surgery CT Scan of the Chest with Contrast: Technique: Contiguous sections were acquired throughout the chest after intravenous administration of 100 cc of Omnipaque 350. Dose reduction technique was used on this scan by utilizing automated expos ure control and iterative reconstruction technique. The dose-length product (DLP) was 154.70 mGy-cm. Findings: There is no evidence of any significant mediastinal, hilar or axillary lymphadenopathy. There is no f illing defect in the pulmonary arterial tree to suggest pulmonary embolus. There is no evidence of ao rtic dissection or aneurysm. There is no evidence of pleural or pericardial effusion. The lungs are clear. No pulmonary nodules or infiltrates are noted. Images through the upper abdomen reveal pneumoperitoneum, presumably related to history of recent love [place]. Impression: No evidence of pulmonary embolus, aortic dissection, or aortic aneurysm. Clear lungs. Pneumoperitoneum, compatible with sequelae recent surgery. Reviewed, dictated and finalized at [facility]. [employer] FACILITY MANAGER Impression: No evidence of pulmonary embolus, aortic dissection, or aortic aneurysm. Clear lungs. Pneumoperitoneum, compatible with sequelae recent surgery.
[2024-03-03 21:56] VITALS: BP 125/79; PULSE 62; RESP 20; TEMP 36.8; O2SAT 100
--- NOTE | 2024-03-03 22:03 | ECG_ITS ---
Test Date: 2024-03-03 22:10:02 Measurements Intervals [place] Rate: 78 P: 58 AK: 132 QRS: 49 QRSD: 89 T: 44 QT: 385 QTc: 440 Interpretive Statements SINUS RHYTHM No previous ECG available for comparison Electronically Signed On 03-04-2024 18:47:52 GREETING CARD MAKER by Julia Pritchard
[2024-03-03 22:42] LABS: Basophils Percent Auto 0.2 % (0.2-1.2); Hematocrit 39.9 % (37.0-47.0); Hemoglobin 12.4 g/dL (12.0-15.0); Immature Granulocyte Absolute 0.04 K/mm3 (0.00-0.031); Immature Granulocyte Percent A 0.4 % (0-0.5); Lymphocytes Absolute Auto 1.05 K/mm3 (0.9-3.2); Mean Corpuscular HGB Conc 31.1 g/dl (32-36); Mean Corpuscular Hemoglobin 26.4 pg (26-34); Mean Corpuscular Volume 85.1 fl (80-100); Mean Platelet Volume 11.1 fl (7.4-10.4); Monocytes Absolute Auto 0.3 K/mm3 (0.1-0.6); Monocytes Percent Auto 2.6 % (2.6-8.5); Neutrophils Absolute Auto 8.2 K/mm3 (1.3-6.7); Neutrophils Percent Auto 85.8 % (45.5-73.1); Platelet Count Result 314 k/mm3 (150-375); Red Blood Count 4.69 M/mm3 (4.2-5.4); Red Cell Distribution Width 16.6 % (11.5-14.5); White Blood Count 9.5 K/mm3 (4.5-10.0)
[2024-03-03 22:53] LABS: Alanine Aminotransferase 22 U/L (6-35); Albumin Level 4.3 g/dL (3.5-5.1); Alkaline Phosphatase 78 U/L (38-126); Anion Gap 5 mmol/L (4-12); Aspartate Amino Transferase 20 U/L (14-36); Bilirubin,Total 0.5 mg/dL (0.2-1.3); Blood Urea Nitrogen 6 mg/dL (7-17); Calcium 9.2 mg/dL (8.4-10.2); Carbon Dioxide 25 mmol/L (22-30); Chloride 110 mmol/L (98-107); Estimated CRCL calculation 101 ml/min; Estimated Glomerular Filt Rate > 60; Glucose 138 mg/dL (65-110); Lipase 57 U/L (23-300); Potassium 4.2 mmol/L (3.4-5.0); Sodium 140 mmol/L (137-145)
[2024-03-03 22:54] LABS: INR 1.1; Partial Thromboplastin Time 28.4 Seconds (22.3-36.8); Prothrombin Time 14.1 Seconds (11.1-14.7)
[2024-03-03 23:04] LABS: Troponin I < 0.012 ng/mL (0.000-0.034)
[2024-03-03 23:23] VITALS: PULSE 53
[2024-03-04 00:09] LABS: D Dimer 0.49 ug/mL (<0.48)
[2024-03-04] MEDS: SODIUM CHLORIDE 0.9% IV 1,000 ML 999 ML IV CONT (00:09)
[2024-03-04] MEDS: ACETAMINOPHEN 500 MG TABLET 1000 MG PO (00:10)
[2024-03-04] MEDS: FAMOTIDINE 20 MG/2 ML VIAL IV PUSH (00:10)
[2024-03-04] MEDS: BELLADONNA ALK/PHENOB ELIX 10 ML, MAG HYDROX/ALUMINUM HYD/SIMETH 30 ML, LIDOCAINE HCL 2... PO (00:11)
--- NOTE | 2024-03-04 01:05 | ED.CHESTPAIN ---
HPI - Chest Pain General Chief Complaint: Chest Pain <ELOY Kaur Last Filed: 03/04/24 03:52> Stated Complaint: chest pain <ELOY Kaur Last Filed: 03/04/24 03:52> Time Seen by Provider: 03/03/24 23:02 <ELOY Kaur Last Filed: 03/04/24 03:52> Source: patient <ELOY Kaur Last Filed: 03/04/24 03:52> Mode of arrival: ambulatory <ELOY Kaur Last Filed: 03/04/24 03:52> Limitations: no limitations <ELOY Kaur Last Filed: 03/04/24 03:52> History of Present Illness HPI narrative: Patient is a 23-year-old female who presents the ED with report of chest pain. Patient reports she underwent laparoscopic bilateral salpingectomy with Dr. Green today. She has had 4 previous pregnancies and had complication with most recent . She reports she received fentanyl for pain control after this surgery around noon. Approximately 1.5 hours later she began having chest tightness, heaviness, pressure like something sitting on her chest. She also reported having some shortness of breath. She states the chest pain has been fairly constant throughout the day today, but the difficulty breathing has improved. Denies cough or cold symptoms, fevers, lower extremity pain or swelling. <ELOY Kaur Last Filed: 03/04/24 03:52> Related Data Allergies/Adverse Reactions: Allergies Allergy/AdvReac Type Severity Reaction Status Date / Time ciprofloxacin (From Cipro) Allergy Difficulty Verified 03/03/24 08:42 Breathing fentanyl AdvReac Intermediate Chest Pain Verified 03/04/24 01:06 levofloxacin (From Levaquin) AdvReac Rash Verified 03/03/24 08:42 <ELOY Kaur Last Filed: 03/04/24 03:52> Review of Systems Review of Systems: All systems reviewed & are unremarkable except as noted in HPI. <ELOY Kaur Last Filed: 12/11/24 03:52> All systems reviewed & are unremarkable except as noted in HPI and below <Kristie Winter PA-C - Last Filed: 03/04/24 03:52> REPLACED BY [facility] Past Medical History Medical History: Medical History History of miscarriage <Kristie Winter PA-C - Last Filed: 03/04/24 03:52> Surgical History Surgical History: Surgical History No pertinent past surgical history <Kristie Winter PA-C - Last Filed: 03/04/24 03:52> Social History Social History: Social History Smoking status: Never smoker Second hand tobacco smoke exposure: No Alcohol intake: never Substance use: never Substance use type: does not use Do You Feel Safe in your Home?: Yes Lack of Transportation: No Lack of Food: Never True Current Housing: I Have Housing Concerned About Future Housing: No Difficulty Paying Gas/Electric Bills: No Difficulty Paying for Meds: No Currently Unemployed: No Education: Associate Degree Difficulty w/ Childcare or Family Care: No Living arrangements: with family Additional living arrangements comments: with and children Spiritual care concerns: No <Kristie Winter PA-C - Last Filed: 03/04/24 03:52> Exam Narrative: GENERAL: Well appearing, thin, non-toxic, in no acute distress. HEAD: Normocephalic, atraumatic. RESPIRATORY: Airway patent, respirations nonlabored. Clear to auscultation bilaterally, no rales, rhonchi, wheezing. No focal lung sounds. CARDIOVASCULAR: Borderline bradycardic with regular rhythm without murmurs, rubs, or gallops. ABDOMINAL: Soft, nontender, nondistended. Normoactive BS. abdominal incisions are clean dry and intact. No surrounding erythema. Minimal tenderness. MUSCULOSKELETAL: Moves all extremities. No gross deformities. Mild TTP throughout L upper anterior chest wall. No peripheral edema. No calf tenderness. SKIN: Warm, dry, normal color. NEURO: A&O X3. Speech clear. Cranial nerves II-XII grossly intact. Steady gait. No ataxic movements. PSYCHIATRIC: Somewhat flat affect. Normal interaction. <Kristie Winter PA-C - Last Filed: 03/04/24 03:52> Course Course Emergency Course: Patient signed out to me pending CT . CTA Chest per Stat Rad: Partially visualized pneumoperitoneum. Findings are favored to relate to sequela recent surgery. No pulmonary embolism detected. Bilateral breast prosthesis. Recommend attention on clinical follow-up. No other acute findings. <Lore Mccartney MD - Last Filed: 03/04/24 06:17> BEAUTY CULTURIST APPRENTICE/PA Physician Supervision PA discussed patient with me. Where that she underwent bilateral salpingectomy the past 24 hours and had presented with chest pain and back pain. <Lore Mccartney MD - Last Filed: 03/04/24 06:17> Vital Signs Vital signs: Vital Signs Temperature 98.2 F 03/03/24 21:56 Pulse Rate 62 03/03/24 21:56 Respiratory Rate 20 03/03/24 21:56 Blood Pressure 125/79 03/03/24 21:56 Pulse Oximetry 100 03/03/24 21:56 Oxygen Delivery Room Air 03/03/24 21:56 Temperature 98.2 F 03/03/24 21:56 Pulse Rate 53 L 03/03/24 23:23 Respiratory Rate 20 03/03/24 21:56 Blood Pressure 125/79 03/03/24 21:56 Pulse Oximetry 100 03/03/24 21:56 Oxygen Delivery Room Air 03/03/24 21:56 <Kristie Winter PA-C - Last Filed: 03/04/24 03:52> Vital Signs Temperature 98.2 F 03/03/24 21:56 Pulse Rate 62 03/03/24 21:56 Respiratory Rate 20 03/03/24 21:56 Blood Pressure 125/79 03/03/24 21:56 Pulse Oximetry 100 03/03/24 21:56 Oxygen Delivery Room Air 03/03/24 21:56 Temperature 98.2 F 03/03/24 21:56 Pulse Rate 53 L 03/03/24 23:23 Respiratory Rate 20 03/03/24 21:56 Blood Pressure 125/79 03/03/24 21:56 Pulse Oximetry 100 03/03/24 21:56 Oxygen Delivery Room Air 03/03/24 21:56 <Lore Mccartney MD - Last Filed: 03/04/24 06:17> MDM - Chest Pain MDM Narrative Medical decision making narrative: patient presented to ED with chest pain, shortness of breath after surgery today. Vital signs are stable upon arrival. Patient is borderline bradycardic. This appears consistent with previous records. She is not in any acute distress. Oxygen is stable on room air. Afebrile. EKG is with sinus rhythm, and no concerning ST changes. Baseline troponin is undetectable. D-dimer was minimally elevated at 0.49. Given recent surgery, will obtain CT of chest to rule out PE. Chest x-ray was clear. Will trial acid reflux medication in case patient is having some residual irritation from intubation. 3HR troponin negative. Care signed out to Dr. Mccartney at shift change pending STAT RAD CTA results. <Kristie Winter PA-C - Last Filed: 03/04/24 03:52> Medical Records Data Attestation: I reviewed the patient's medical records. <Kristie Winter PA-C - Last Filed: 03/04/24 03:52> Lab Data Attestation: I reviewed the patient's lab results. <Kristie Winter PA-C - Last Filed: 03/04/24 03:52> Result diagrams: 03/03/24 22:15 03/03/24 22:15 <Kristie Winter PA-C - Last Filed: 03/04/24 03:52> Labs: Lab Results 03/03/24 03/04/24 Range/Units 22:15 01:47 WBC 9.5 (4.5-10.0) K/mm3 RBC 4.69 (4.2-5.4) M/mm3 Hgb 12.4 (12.0-15.0) g/dL Hct 39.9 (37.0-47.0) % MCV 85.1 (80-100) fl MCH 26.4 (26-34) pg MCHC 31.1 L (32-36) g/dl RDW 16.6 H (11.5-14.5) % Plt Count 314 D (150-375) k/mm3 MPV 11.1 H (7.4-10.4) fl Immature Gran % (Auto) 0.4 (0-0.5) % Neut % (Auto) 85.8 H (45.5-73.1) % Lymph % (Auto) 11.0 L (18.3-44.2) % [place] % (Auto) 2.6 (2.6-8.5) % Eos % (Auto) 0.0 (0-4.4) % Baso % (Auto) 0.2 (0.2-1.2) % Lymph # (Auto) 1.05 (0.9-3.2) K/mm3 [place] # (Auto) 0.3 (0.1-0.6) K/mm3 Eos # (Auto) 0.0 (0-0.3) K/mm3 Baso # (Auto) 0.0 (0.0-0.1) K/mm3 Abs Immat Gran (auto) 0.04 H (0.00-0.031) K/mm3 Absolute Neuts (auto) 8.2 H (1.3-6.7) K/mm3 Absolute Nucleated RBC 0.000 (0.0-0.012) K/mm3 Nucleated RBC % 0.0 (0.0-0.2) % PT 14.1 (11.1-14.7) Seconds INR 1.1 APTT 28.4 (22.3-36.8) Seconds D-Dimer 0.49 H (<0.48) ug/mL Sodium 140 (137-145) mmol/L Potassium 4.2 (3.4-5.0) mmol/L Chloride 110 H (98-107) mmol/L Carbon Dioxide 25 (22-30) mmol/L Anion Gap 5 (4-12) mmol/L BUN 6 L (7-17) mg/dL Creatinine 0.60 L (0.7-1.0) mg/dL Estim Creat Clear Calc 101 ml/min Estimated GFR > 60 (59 - ) Glucose 138 H (65-110) mg/dL Calcium 9.2 (8.4-10.2) mg/dL Magnesium 2.0 (1.6-2.3) mg/dL Total Bilirubin 0.5 (0.2-1.3) mg/dL AST 20 (14-36) U/L ALT 22 (6-35) U/L Alkaline Phosphatase 78 (38-126) U/L Troponin I < 0.012 < 0.012 (0.000-0.034) ng/mL Total Protein 7.0 (6.3-8.2) g/dL Albumin 4.3 (3.5-5.1) g/dL Lipase 57 (23-300) U/L Serum HCG, Qual Negative <Kristie Winter PA-C - Last Filed: 03/04/24 03:52> Lab Results 03/03/24 03/04/24 Range/Units 22:15 01:47 WBC 9.5 (4.5-10.0) K/mm3 RBC 4.69 (4.2-5.4) M/mm3 Hgb 12.4 (12.0-15.0) g/dL Hct 39.9 (37.0-47.0) % MCV 85.1 (80-100) fl MCH 26.4 (26-34) pg MCHC 31.1 L (32-36) g/dl RDW 16.6 H (11.5-14.5) % Plt Count 314 D (150-375) k/mm3 MPV 11.1 H (7.4-10.4) fl Immature Gran % (Auto) 0.4 (0-0.5) % Neut % (Auto) 85.8 H (45.5-73.1) % Lymph % (Auto) 11.0 L (18.3-44.2) % [place] % (Auto) 2.6 (2.6-8.5) % Eos % (Auto) 0.0 (0-4.4) % Baso % (Auto) 0.2 (0.2-1.2) % Lymph # (Auto) 1.05 (0.9-3.2) K/mm3 [place] # (Auto) 0.3 (0.1-0.6) K/mm3 Eos # (Auto) 0.0 (0-0.3) K/mm3 Baso # (Auto) 0.0 (0.0-0.1) K/mm3 Abs Immat Gran (auto) 0.04 H (0.00-0.031) K/mm3 Absolute Neuts (auto) 8.2 H (1.3-6.7) K/mm3 Absolute Nucleated RBC 0.000 (0.0-0.012) K/mm3 Nucleated RBC % 0.0 (0.0-0.2) % PT 14.1 (11.1-14.7) Seconds INR 1.1 APTT 28.4 (22.3-36.8) Seconds D-Dimer 0.49 H (<0.48) ug/mL Sodium 140 (137-145) mmol/L Potassium 4.2 (3.4-5.0) mmol/L Chloride 110 H (98-107) mmol/L Carbon Dioxide 25 (22-30) mmol/L Anion Gap 5 (4-12) mmol/L BUN 6 L (7-17) mg/dL Creatinine 0.60 L (0.7-1.0) mg/dL Estim Creat Clear Calc 101 ml/min Estimated GFR > 60 (59 - ) Glucose 138 H (65-110) mg/dL Calcium 9.2 (8.4-10.2) mg/dL Magnesium 2.0 (1.6-2.3) mg/dL Total Bilirubin 0.5 (0.2-1.3) mg/dL AST 20 (14-36) U/L ALT 22 (6-35) U/L Alkaline Phosphatase 78 (38-126) U/L Troponin I < 0.012 < 0.012 (0.000-0.034) ng/mL Total Protein 7.0 (6.3-8.2) g/dL Albumin 4.3 (3.5-5.1) g/dL Lipase 57 (23-300) U/L Serum HCG, Qual Negative <Lore Mccartney MD - Last Filed: 03/04/24 06:17> Imaging Data Attestation: I personally reviewed and interpreted this imaging study as follows: <Kristie Winter PA-C - Last Filed: 03/04/24 03:52> ECG Data EKG #1: Attestation: I personally reviewed and interpreted this ECG as follows: <Kristie Winter PA-C - Last Filed: 03/04/24 03:52> ECG completion date: 03/03/24 <ELOY Kaur Last Filed: 03/04/24 03:52> ECG completion time: 22:10 <ELOY Kaur Last Filed: 03/04/24 03:52> EKG Interpretation: normal rate (78), sinus rhythm and no ST changes <ELOY Kaur Last Filed: 03/04/24 03:52> Discharge Plan Discharge Clinical Impression: Atypical chest pain <ELOY Kaur Last Filed: 03/04/24 03:52> Patient Disposition: Home, Self-Care <ELOY Kaur Last Filed: 03/04/24 03:52> Condition: Stable <ELOY Kaur Last Filed: 03/04/24 03:52> Instructions: Antibiotic Form, Chest Pain (ED), Chest Wall Pain (ED) <ELOY Kaur Last Filed: 03/04/24 03:52> Additional Instructions: Continue Tylenol and ibuprofen as needed for pain. Follow-up with primary care doctor for further evaluation. Return to the ED if you experience worsening or severe symptoms, difficulty breathing, unable to keep down food or drink, severe pain, or any other symptoms of concern <ELOY Kaur Last Filed: 03/04/24 03:52> Patient Language: Lebanese <ELOY Kaur Last Filed: 03/04/24 03:52> Prescriptions: No Action hydrocodone-acetaminophen 5-325 mg tablet 1 - 2 tablet PO Q6H PRN (Reason: pain) Qty: 10 0RF <ELOY Kaur Last Filed: 03/04/24 03:52> Follow-up/Referrals: PHYSICIAN,ROD BUSTER [Primary Care Provider] - <ELOY Kaur Last Filed: 03/04/24 03:52> Stand Alone Forms: Work/School Release IP <Kristie Winter PA-C - Last Filed: 03/04/24 03:52> Time of Disposition: 05:32 <Kristie Winter PA-C - Last Filed: 03/04/24 03:52> 05:32 <Lore Mccartney MD - Last Filed: 03/04/24 06:17>
[2024-03-04 01:21] LABS: SPREG INTERNAL CONTROL Positive; Serum Qual hCG Negative
--- NOTE | 2024-03-04 01:49 | PC.NURSE ---
3 hour troponin drawn, ok to not get 3 hour ekg per edp betsey brooks.
--- NOTE | 2024-03-04 01:49 | PC.NURSE ---
Pt to ct via stretcher at this time. no distress noted.
[2024-03-04 03:14] LABS: Troponin I < 0.012 ng/mL (0.000-0.034)
[2024-03-04] MEDS: HYDROcodone/acetaminophen (*CRX) 5-325 MG TABLET 1 TAB PO (03:51)
[2024-03-04 06:19] VITALS: BP 117/76; PULSE 86; RESP 16; TEMP 36.4; O2SAT 98
== END 2024-03-04 06:21 | disposition home or self-care (01) ==
PROVIDERS: Physician Assistant; Emergency Provider Student in an Organized Health Care Education/Training Program
DX: R07.89 Other chest pain (principal)
CPT/HCPCS: 36415; 71046; 71275; 80053; 83690; 83735; 84484; 84703; 85025; 85380; 85610; 85730; 93005; 96361; 96374; 99284; A9270; J7030; Q9967

== ENCOUNTER 2024-03-09 08:32 | Emergency (ER) | payer BC, MEDICAID, SELFPAY ==
[2024-03-09] VITALS (10 sets, daily range): BP systolic 88–110; BP diastolic 59–78; PULSE 81–115; RESP 12–17; TEMP 36.4–36.8; O2SAT 98–100
--- NOTE | ~2024-03-09 | CT_ITS ---
CT abdomen pelvis w con Ordering provider: Denny Castanon APRN History: 23 years Female with . abdominal pain, 6 days post op abdominal . Comparison: None. Technique: CT abdomen and pelvis with IV and without oral contrast. Automated exposure control and it erative reconstruction technique were employed. The dose-length product was 210.98 mGy-cm. 100 mL Omn ipaque 350 was given IV. Findings: Bilateral breast implants. VISUALIZED LOWER CHEST: Dependent atelectatic changes. UPPER ABDOMINAL ORGANS: Liver: Fat infiltration. Gallbladder: Normal. Spleen: Normal. Stomach/duodenum: Normal. Pancreas: Normal. Adrenals: Normal. Kidneys: Normal. PELVIC ORGANS: The bladder is underfilled. Uterus: Normal. BOWEL AND MESENTERY: Colon: No evidence of diverticulitis. Fecal material seen in the colon suggestive of constipation. Ap pendix is not demonstrated. Small Bowel: Normal. No obstruction. Peritoneum/mesentery: Significant free air is seen. No Free fluid. No mesenteric lymphadenopathy. RETROPERITONEUM: Normal aorta. No retroperitoneal lymphadenopathy. MUSCULOSKELETAL: Superficial soft tissues: The superficial soft tissues are normal. Bones: Normal spine. IMPRESSION: 1. Free air in the abdomen which may be postoperative. 2. Constipation. 3. Fat infiltration of the liver. Reviewed, dictated and finalized at location A. ESSING CLERK
--- NOTE | 2024-03-09 08:50 | ED_ITS ---
HPI - Nausea/Vomiting/Diarrhea General Chief complaint: Nausea/Vomiting/Diarrhea Stated complaint: N/V 5 day post op removal fallopian tubes Time Seen by Provider: 03/09/24 08:43 History of Present Illness HPI Narrative: 23 y/o female presents with n/v that started last night. patient states she has vomited a lot and feels like she is going to pass out when she stands up. patient denies urinary or bowel symptoms. patient is 6 days post-op from bilateral fallopin tube removal that was performed by Dr. Kiser with ancillary services manager on 03/03/2024. patient unsure of fevers Onset (ago): day(s) (1) Associated nausea: Yes Associated abdominal pain: Yes Location of pain: diffuse Related Data Allergies Allergy/AdvReac Type Severity Reaction Status Date / Time ciprofloxacin (From Cipro) Allergy Difficulty Verified 03/09/24 08:33 Breathing fentanyl AdvReac Intermediate Chest Pain Verified 03/09/24 08:33 levofloxacin (From Levaquin) AdvReac Rash Verified 03/09/24 08:33 Review of Systems 2 Review of Systems: All systems reviewed & are unremarkable except as noted in HPI and below Gastrointestinal: Gastrointestinal: Reports abdominal pain and Reports vomiting PMFSH Past Medical History Medical History History of miscarriage Surgical History Surgical History No pertinent past surgical history Social History Social History Smoking status: Never smoker Second hand tobacco smoke exposure: No Alcohol intake: never Substance use: never Substance use type: does not use Do You Feel Safe in your Home?: Yes Lack of Transportation: No Lack of Food: Never True Current Housing: I Have Housing Concerned About Future Housing: No Difficulty Paying Gas/Electric Bills: No Difficulty Paying for Meds: No Currently Unemployed: No Education: Associate Degree Difficulty w/ Childcare or Family Care: No Living arrangements: with family Additional living arrangements comments: with and children Spiritual care concerns: No Exam 2 Narrative: ddx: intra abdominal abnormality vs uti vs dehdration Const: General: no acute distress and lethargic HENMT: Head: normal to inspection Ears: external ears normal Eyes: General: appearance normal, both eyes and all related structures Neck: Neck: normal visual inspection Chest: Chest palpation & inspection: normal inspection of the chest Resp: Effort & Inspection: normal respiratory effort and able to speak in complete sentences Cardio: Rate: tachycardic GI: Inspection: normal to inspection and other (incision to LLQ and umbilicus. no drainage or redness noted. ) GI Palp: Yes abdominal tenderness (generalized), Yes Soft to palpation, Yes Tenderness to palpation present (GI) and No Rigid due to palpation Back/Spine/Pelvis: Back: no CVA tenderness Skin: General skin exam: pallor Neuro: General: oriented to person, oriented to place, oriented to time and patient oriented x3 Extrem: General: normal to inspection and full ROM Psych: Appearance: grossly normal Course Course Emergency Course: patient is tachycardic. will get lactate, blood cultures, basic labs and abdominal CT r/t 6 days post-op to r/o abscess Reevaluation(s) Reevaluation #1: patient is feeling better. will get repeat trop at 1230 and consult cardiology Date: 03/09/24 Time: 11:56 Consultations Consultation #1: Spoke with Anusha Sanford with Cardiology who accepted the patient as a referral to outpatient Date: 03/09/24 Time: 14:00 Vital Signs Vital signs: Vital Signs Temperature 36.8 C 03/09/24 08:40 Pulse Rate 105 H 03/09/24 08:40 Respiratory Rate 12 03/09/24 08:40 Blood Pressure 100/78 03/09/24 08:40 Pulse Oximetry 100 03/09/24 08:40 Oxygen Delivery Room Air 03/09/24 08:40 Temperature 36.8 C 03/09/24 08:40 Pulse Rate 93 03/09/24 13:25 Respiratory Rate 17 03/09/24 13:25 Blood Pressure 110/62 03/09/24 13:25 Pulse Oximetry 98 03/09/24 13:25 Oxygen Delivery Room Air 03/09/24 08:40 MDM - Nausea/Vomiting/Diarrhea MDM Narrative Medical decision making narrative: patient was having acute abdominal pain. CT scan shows constipation but no post- surgical issues. patient c/o chest pain after arrival. patient had new t-wave inversion. patient had 2 negative trops. I spoke with Anusha Sanford with cardiology who will accept the patient as a referral as outpatient. patient will be discharged home Lab Data 03/09/24 09:38 03/09/24 09:38 Labs: Lab Results 03/09/24 03/09/24 03/09/24 Range/Units 09:33 09:38 12:57 WBC 9.2 (4.5-10.0) K/mm3 RBC 4.93 (4.2-5.4) M/mm3 Hgb 13.2 (12.0-15.0) g/dL Hct 42.0 (37.0-47.0) % MCV 85.2 (80-100) fl MCH 26.8 (26-34) pg MCHC 31.4 L (32-36) g/dl RDW 17.2 H (11.5-14.5) % Plt Count 242 (150-375) k/mm3 MPV 11.5 H (7.4-10.4) fl Immature Gran % (Auto) Not Reportable Neut % (Auto) Not Reportable Lymph % (Auto) Not Reportable [place] % (Auto) Not Reportable Eos % (Auto) Not Reportable Baso % (Auto) Not Reportable Lymph # (Auto) Not Reportable [place] # (Auto) Not Reportable Eos # (Auto) Not Reportable Baso # (Auto) Not Reportable Abs Immat Gran (auto) Not Reportable Absolute Neuts (auto) Not Reportable Absolute Nucleated RBC Not Reportable Total Counted 100 Neutrophils % (Manual) 81 H (46-73) % Band Neutrophils % 12 H (0-6) % Lymphocytes % (Manual) 4 L (18-44) % Monocytes % (Manual) 3 (3-9) % Nucleated RBC % Not Reportable Abs Neuts (Manual) 8.55 H (1.7-7.2) K/mm3 Abs Lymphs (Manual) 0.36 L (1.1-4.5) K/mm3 Abs Monocytes (Manual) 0.27 (0.1-0.90) K/mm3 Platelet Estimate Adequate (Adequate) Schistocytes None seen Sodium 138 (137-145) mmol/L Potassium 4.1 (3.4-5.0) mmol/L Chloride 103 (98-107) mmol/L Carbon Dioxide 28 (22-30) mmol/L Anion Gap 7 (4-12) mmol/L BUN 14 D (7-17) mg/dL Creatinine 0.60 L (0.7-1.0) mg/dL Estim Creat Clear Calc 101 ml/min Estimated GFR > 60 (59 - ) Glucose 107 (65-110) mg/dL Lactic Acid 1.0 (0.7-2.0) mmol/L Calcium 9.2 (8.4-10.2) mg/dL Total Bilirubin 0.8 (0.2-1.3) mg/dL AST 18 (14-36) U/L ALT 18 (6-35) U/L Alkaline Phosphatase 83 (38-126) U/L Troponin I < 0.012 < 0.012 (0.000-0.034) ng/mL Total Protein 8.0 (6.3-8.2) g/dL Albumin 4.8 (3.5-5.1) g/dL Lipase 41 (23-300) U/L Urine Color Yellow (Yellow) Urine Appearance Cloudy H (Clear) Urine pH 7.5 (5.0-9.0) Ur Specific [place] 1.028 (1.001-1.035) Urine Protein Trace (Negative) mg/dL Urine Glucose (UA) Negative (Negative) mg/dL Urine Ketones Negative (Negative) mg/dL Ur Blood (Man) Negative (Negative) Urine Nitrate Negative (Negative) Urine Bilirubin Negative (Negative) Urine Urobilinogen 0.2 (<2.0) mg/dL Add Ur Microanalysis Reviewed Leukocyte Esterase Rfl Trace H (Negative) HILARIA/UL Urine RBC 6-10 H (0-2) /hpf Urine WBC 0-5 (0-3) /hpf Ur Squamous Epith Cells Moderate (Few) /hpf Urine Bacteria Rare /hpf Urine Casts 0-2 Urine Mucus Present /lpf POC Urine HCG, Qual Negative (Negative) Influenza A (RT-PCR) Negative (Negative) Influenza B (RT-PCR) Negative (Negative) SARS-CoV-2 RNA (RT-PCR) Negative (Negative) Discharge Plan Discharge Clinical Impression: Abdominal pain, Constipation, Chest pain Patient Disposition: Home, Self-Care Condition: Stable Instructions: Antibiotic Form, Chest Pain (ED), Constipation (ED) Additional Instructions: FOLLOW-UP WITH CARDIOLOGY TAKE MIRALAX FOR CONSTIPATION RETURN FOR WORSENING SYMPTOMS Patient Language: Togolese Prescriptions: No Action hydrocodone-acetaminophen 5-325 mg tablet 1 - 2 tablet PO Q6H PRN (Reason: pain) Qty: 10 0RF Follow-up/Referrals: k [Other] Kiran San MD [Physician] - (OUR OFFICE WILL CALL YOU WITH APPOINTMENT INFORMATION) PHYSICIAN,TRUANT OFFICER [Primary Care Provider] - Time of Disposition: 14:18
--- NOTE | 2024-03-09 09:11 | ECG_ITS ---
Test Date: 2024-03-09 09:16:26 Measurements Intervals [place] Rate: 112 P: 62 SD: 153 QRS: 85 QRSD: 76 T: 5 QT: 287 QTc: 392 Interpretive Statements SINUS TACHYCARDIA MODERATE T-WAVE ABNORMALITY, CONSIDER ANTEROLATERAL ISCHEMIA [-0.1+ mV T WAVE IN V3-V6] MODERATE T-WAVE ABNORMALITY, CONSIDER INFERIOR ISCHEMIA [-0.1+ mV T WAVE IN II/aVF] Compared to ECG 03/03/2024 22:10:02 T-wave abnormality now present Possible ischemia now present Sinus rhythm no longer present Electronically Signed On 03-09-2024 12:05:33 TRICHOLOGIST by Kiran San M.D.
[2024-03-09] MEDS: MORPHINE SULFATE (*CRX) 4 MG/ML INJ IV PUSH (09:29)
[2024-03-09] MEDS: ONDANSETRON INJ 4 MG/2 ML VIAL IV PUSH (09:30)
[2024-03-09] MEDS: SODIUM CHLORIDE 0.9% IV 1,000 ML 999 ML IV CONT (09:30)
[2024-03-09 09:36] LABS: BEDSIDEPREGUCG Negative (Negative)
[2024-03-09 09:53] LABS: Hemoglobin 13.2 g/dL (12.0-15.0); Mean Corpuscular HGB Conc 31.4 g/dl (32-36); Mean Corpuscular Hemoglobin 26.8 pg (26-34); Mean Corpuscular Volume 85.2 fl (80-100); Mean Platelet Volume 11.5 fl (7.4-10.4); Platelet Count Result 242 k/mm3 (150-375); Red Blood Count 4.93 M/mm3 (4.2-5.4); Red Cell Distribution Width 17.2 % (11.5-14.5); White Blood Count 9.2 K/mm3 (4.5-10.0)
[2024-03-09 10:05] LABS: Add Urine Microscopic? YES; Appearance Urine Cloudy (Clear); Bacteria Urine Rare /hpf; Bilirubin Urine Negative (Negative); Blood Urine Negative (Negative); Color Urine Yellow (Yellow); Glucose Urine UA Negative (Negative); Ketones Urine Negative (Negative); Leukocyte Esterase Ur Trace LEU/UL (Negative); Mucus Urine Present /lpf; Need Manual Microscopic Reviewed; Nitrate Urine Negative (Negative); Non Pathogenic Casts 0-2; Protein Urine Trace mg/dL (Negative); Specific Grav Ur 1.028 (1.001-1.035); Squamous Epithelial Cell Urine Moderate /hpf (Few); Urobilinogen Urine 0.2 mg/dL (<2.0); WBC Urine 0-5 /hpf (0-3); pH Urine 7.5 (5.0-9.0)
[2024-03-09 10:08] LABS: Alanine Aminotransferase 18 U/L (6-35); Albumin Level 4.8 g/dL (3.5-5.1); Alkaline Phosphatase 83 U/L (38-126); Anion Gap 7 mmol/L (4-12); Aspartate Amino Transferase 18 U/L (14-36); Bilirubin,Total 0.8 mg/dL (0.2-1.3); Blood Urea Nitrogen 14 mg/dL (7-17); Calcium 9.2 mg/dL (8.4-10.2); Carbon Dioxide 28 mmol/L (22-30); Chloride 103 mmol/L (98-107); Estimated CRCL calculation 101 ml/min; Estimated Glomerular Filt Rate > 60; Glucose 107 mg/dL (65-110); Lipase 41 U/L (23-300); Potassium 4.1 mmol/L (3.4-5.0); Sodium 138 mmol/L (137-145)
[2024-03-09 10:18] LABS: Troponin I < 0.012 ng/mL (0.000-0.034)
[2024-03-09 10:24] LABS: Band Neutrophils Percent 12 % (0-6); Lymphocytes Absolute Manual 0.36 K/mm3 (1.1-4.5); Lymphocytes Percent Manual 4 % (18-44); Monocytes Absolute Manual 0.27 K/mm3 (0.1-0.90); Monocytes Percent Manual 3 % (3-9); Neutrophils Absolute Manual 8.55 K/mm3 (1.7-7.2); Neutrophils Percent Manual 81 % (46-73); Platelet Estimate Adequate (Adequate); Total Cells Counted 100
[2024-03-09 10:25] LABS: Schistocytes None Seen
[2024-03-09 10:30] LABS: Influenza A QL RT-PCR Negative (Negative); Influenza B QL RT-PCR Negative (Negative); SARS-CoV-2 RNA PCR Negative (Negative)
--- NOTE | 2024-03-09 11:52 | PC.NURSE ---
Pt c/o thirst. Provider made aware. Denny states pt can have water. Water provided
[2024-03-09 13:45] LABS: Troponin I < 0.012 ng/mL (0.000-0.034)
--- OUTSIDE RECORDS SUMMARY | 2024-03-15 14:29 | XMS_ITS | Encounter Summary ---
Author Organization [facility] Health Address [address] [place] [address] Care Team Providers Care Export Administrator Name Role Phone Shana Easton MD Primary Care Provider [phone] Encounter Details Date Type Department Care Team (Latest Contact Info) Description 02/24/2020 Travel Social History Tobacco Use Types Packs/Day Years Used Date Smoking Tobacco: Never Assessed Sex and Gender Information Value Date Recorded Sex Assigned at Female 09/17/2022 8:47 AM CDT Gender Identity Female 09/17/2022 8:47 AM CDT Sexual Orientation Not on file COVID-19 Exposure Response Date Recorded In the last month, have you been in contact with someone who was confirmed or suspected to have Coronavirus / COVID-19? No / Unsure 02/24/2020 1:19 PM SOCCER REFEREE documented as of this encounter Plan of Treatment Upcoming Encounters Date Type Department Care Team (Late st Contact Info) Description 03/23/2024 Hospital Encounter [facility] [address] [place] [address] documented as of this encounter Visit Diagnoses Not on filedocumented in this encounter Care Teams Export Administrator Relationship Specialty Start Date End Date Shana Easton MD [address] [place] [address] PCP - General Family Medicine 01/09/20 documented as of this encounter
--- OUTSIDE RECORDS SUMMARY | 2024-03-15 14:29 | XMS_ITS | Encounter Summary ---
Author Organization [facility] Address [address] [place] [address] Care Team Providers Care Purchase Analyst Name Role Phone Shana Easton MD Primary Care Provider [phone] Reason for Referral * (Routine) - Closed Specialty Diagnoses / Procedures Referred By Contac t Referred To Contact Diagnoses High risk teen in third trimester (HCC) Poor growth affecting management of mother in third trimester, single or unspecified fetus (HCC) Short interval between pregnancies affecting , antepartum (HCC) Encounter for ultrasound (HCC) Procedures SONOGRAM - COMPLETE Bolivar Green MD [address] [address] Referral ID Status Reason Start Date Expiration Date Visits Re quested Visits Authorized [id number] Closed 10/23/2022 10/23/2023 1 1 * (Routine) - Closed Specialty Diagnoses / Procedures Referred By Contac t Referred To Contact Diagnoses High risk teen in third trimester (HCC) Poor growth affecting management of mother in third trimester, single or unspecified fetus (HCC) Short interval between pregnancies affecting , antepartum (HCC) Encounter for ultrasound (HCC) Procedures SONOGRAM - COMPLETE Bolivar Green MD [address] [facility] [place] [address] Referral ID Status Reason Start Date Expiration Date Visits Re quested Visits Authorized [id number] Closed 10/23/2022 10/23/2023 1 1 Encounter Details Date Type Department Care Team (Latest Contact Info) Description 10/26/2022 9:45 AM CDT - 10/26/2022 11:59 PM CDT Hospital Encounter [facility] [address] [id number] Jil Lang MD [address] [address] Jin Ho MD [address] [address] Discharge Disposition: Home or Self Care Social History Tobacco Use Types Packs/Day Years Used Date Smoking Tobacco: Never Smokeless Tobacco: Never Alcohol Use Standard Drinks/Week Comments Not Currently 0 (1 standard drink = 0.6 oz pur e alcohol) Comments Yes Sex and Gender Information Value Date Recorded Sex Assigned at Female 09/17/2022 8:47 AM CDT Gender Identity Female 09/17/2022 8:47 AM CDT Sexual Orientation Not on file documented as of this encounter Medications at Time of Discharge Medication Sig Dispensed Refills Start Date End Date omeprazole (PriLOSEC) 40 MG capsule Take 1 (one) capsule by mouth 2 times daily, before breakfast and supper documented as of this encounter Plan of Treatment Upcoming Encounters Date Type Department Care Team (Late st Contact Info) Description 03/23/2024 Hospital Encounter [facility] [address] [place] [address] documented as of this encounter Procedures Procedure Name Priority Date/Time Associated Diagnosis Comments SONOGRAM - COMPLETE Routine 10/26/2022 9 :56 AM CDT High risk teen in third trimester (HCC) Poor growth affecting management of mother in third trimester, single or unspecified fetus (HCC) Short interval between pregnancies affecting , antepartum (HCC) Encounter for ultrasound (HCC) documented in this encounter Results * SONOGRAM - COMPLETE (10/26/2022 9:56 AM CDT) Anatomical Region Laterality Modality Other 10/26/2022 9:56 AM CDT Narrative 10/26/2022 11:03 AM CDT ? [facility] ?[facility] ?PHONE: ??FAX: Pat. Name: ?DIOGENES MONET Pat. No: ?[id number] Study Date: ?? 10/26/2022 ??9:56am , Age: ? 2000, 22 Pregnancies: ?? 5, Para 1122 Height: ? 63 in Weight: ? 107 lb LMP: ?05/19/2022 GA by LMP: ?22w6d GA by Base: ?? 22w6d ?? ANGIE: 02/23/2023 GA by US: ? 22w0d ?? ANGIE: 03/01/2023 GA Selected: ??22w6d (LMP) ANGIE: ?02/23/2023 Referring MD: Tal Green MD Adult Caregiver: ??Nadiya Evans RDMS CPT4: ? 90126 BMI: ?18.95 Hist/Ind: ? G1: SAB @ 7 wk no D&C ?G2: @ 39 wk 3260 gm, PTL, HTN, Pyloric stenosis ?G3: @ 34 wk 2722 gm, PTL, HTN ?G4: SAB @ 8 wk no D&C ?G5: Vaginal bleeding @ 12-18 weeks, Borderline intraabdominal echogenicites @ 18 weeks MEASUREMENTS & AGE ? GROWTH EVALUATION Measurement ??GA ? Range ? Srce %for GA Ratios ----- ---- ------- BPD ??5.3 cm 22w1d ([id number]) Hadl BPD 18% FL/BPD 0.72 HC ??19.6 cm 21w6d (41o6u-75o3m) Hadl HC ??5% FL/AC ??0.21 (0.20 - 0.24) AC ??18.1 cm 23w0d (65d7a-32f2q) Hadl AC ??45% HC/AC ??1.08 (1.04 - 1.23) FL ?? 3.8 cm 22w2d (14p6l-80z4q) Hadl FL ??18% CI ? 0.76 (0.70 - 0.86) HL ?? 3.6 cm 22w4d (34r3e-71r3d) Zackery HL ??44% GA for sonogram 22w0d (17f6g-96q8c) ?? Weight Estimate: based on (BPD,HC,AC,FL) Hadlock ?Weight: 513 gm (438-588gm) Hadloc ? : 1lbs, 2oz ? Normal: 559 gm (419-699gm) Hadloc ? Wt% ? 27% for 22w6d Cervix: ??Length: 3.9 cm ??Approach: transvaginal ??Funneling: not present Heart Rate: 142 bpm Amniotic Fluid Index: 04.6cm (Deepest Pocket) EVAL, PLACENTA Presentation: cephalic Placenta: posterior Heart Rate: 142 bpm Amniotic Fluid Volume: normal Anatomy!Normal!Abnormal!Suboptimal!Prev. Seen!Comments Cranium ?! ?! ?! ?! ? x ?! Mdl (CSP/Thal! ?! ?! ?! ? x ?! Ventricles ?? ! ?! ?! ?! ? x ?! Choroid Plexu! ?! ?! ?! ? x ?! Cerebellum ?? ! ?! ?! ?! ? x ?! Cisterna M. ??! ?! ?! ?! ? x ?! Nuchal Fold ??! ?! ?! ?! ? x ?! Orbits ? ! ?! ?! ?! ? x ?! Profile ?! ?! ?! ?! ? x ?! Nasal Bone ?? ! ?! ?! ?! ? x ?! Lip ?! ?! ?! ?! ? x ?! Spine ?! ?! ?! ?! ? x ?! Lungs ?! ?! ?! ?! ? x ?! 4 Chamber Hea! ?? x ??! ?! ?! ?! LVOT ? ! ?? x ??! ?! ?! ?! RVOT ? ! ?? x ??! ?! ?! ?! 3 Vessel View! ?? x ??! ?! ?! ?! 3 Vessel Trac! ?! ?! ?! ? x ?! Cross-over ?? ! ?! ?! ?! ? x ?! Ductal Arch ??! ?! ?! ?! ? x ?! Aortic Arch ??! ?! ?! ?! ? x ?! Caval View ?? ! ?! ?! ?! ? x ?! Situs ?! ?! ?! ?! ? x ?! Diaphragm ?! ?! ?! ?! ? x ?! Stomach ?! ?? x ??! ?! ?! ? x ?! Bowel ?! ?? x ??! ?! ?! ?! Kidneys ?! ?? x ??! ?! ?! ? x ?! Bladder ?! ?? x ??! ?! ?! ? x ?! 3 Vessel Cord! ?! ?! ?! ? x ?! Cord In! ?! ?! ?! ? x ?! Upper Extremi! ?! ?! ?! ? x ?! Hands ?! ?! ?! ?! ? x ?! Lower Extremi! ?! ?! ?! ? x ?! Feet ? ! ?! ?! ?! ? x ?! External Joslyn! ?! ?! ?! ? x ?! Placental Cor! ?! ?! ?! ? x ?! CLINICAL SUMMARY IMPRESSION: Single, live, intrauterine at 22w6d ?? size & amniotic fluid volume are within normal limits ?? Again borderline intraabdominal liver/bowel echogenicities noted Normal-range transvaginal cervical length RECOMMEND: If not previously done, consider ? Maternal CF carrier screening ? Serologies (IgG+IgM) for TORCH & Parvovirus ? Serum screening for aneuploidy (e.g. cf-DNA) Ultrasound in 4 weeks for growth & development Thank you for allowing us the opportunity to care for your patient Jin Ho MD <Electronic Signature> ??10/26/2022 11:03am R Lamont Green MD [facility] ORDERABLES documented in this encounter Visit Diagnoses Diagnosis High risk teen in third trimester (HCC)- Primary Poor growth affecting management of mother in third trimester, single or unspecified fetus (HCC) Short interval between pregnancies affecting , antepartum (HCC) Encounter for ultrasound (HCC) Encounter for routine screening for malformation using ultrasonics documented in this encounter Care Teams Purchase Analyst Relationship Specialty Start Date End Date Shana Easton MD [address] [place] [phone] PCP - General Family Medicine 01/09/20 documented as of this encounter
--- OUTSIDE RECORDS SUMMARY | 2024-03-15 14:29 | XMS_ITS | Encounter Summary ---
Author Organization [facility] Health Address [address] [place] [address] Care Team Providers Care Polysom Tech Name Role Phone Shana Easton MD Primary Care Provider [phone] Encounter Details Date Type Department Care Team (Latest Contact Info) Description 12/16/2023 Travel Social History Tobacco Use Types Packs/Day Years Used Date Smoking Tobacco: Never Smokeless Tobacco: Never Alcohol Use Standard Drinks/Week Comments Not Currently 0 (1 standard drink = 0.6 oz pur e alcohol) Overall Financial Resource Strain (CARDIA) Lynn styles Date Recorded How hard is it for you to pa y for the very basics like food, housing, medical care, and heating? Not hard at all 12/11/2023 [facility] [place] [facility] Occupat ional Health - Occupational Stress Questionnaire Answer Date Recorded Do you feel stress - tense, restless, nervous, or anxious, or unable to sleep at night because your mind is troubled all the time - these days? Not at all 12/11/2023 Hunger Vital Sign Answer Date Recorded Within the past 12 months, y ou worried that your food would run out before you got the money to buy more. Never true 12/11/19 24 Within the past 12 months, t he food you bought just didn't last and you didn't have money to get more. Never true 12/11/2023 PRAPARE - Transportation Answer Date Re corded In the past 12 months, has l ack of transportation kept you from medical appointments or from getting medications? No 11/23 In the past 12 months, has l ack of transportation kept you from meetings, work, or from getting things needed for daily living? No 12/11/2023 Housing Stability Vital Sign Answer Jevon e Recorded In the last 12 months, was t here a time when you were not able to pay the mortgage or rent on time? No 12/11/2023 In the last 12 months, how many places have you lived? 2 12/11/2023 In the last 12 months, was t here a time when you did not have a steady place to sleep or slept in a mcfp (including now)? No 12/11/2023 [place] Depression Scale Answer Date Recorded [place] Depression Scale Total 0 12/11/2023 The thought of harming myself has occurred to me . Never 12/11/2023 Estimated Date of Delivery Comme nts Yes 02/15/2024 Based on Patient Reported Sex and Gender Information Value Date Recorded Sex Assigned at Female 09/17/2022 8:47 AM CDT Gender Identity Female 09/17/2022 8:47 AM CDT Sexual Orientation Not on file documented as of this encounter Plan of Treatment Upcoming Encounters Date Type Department Care Team (Late st Contact Info) Description 03/23/2024 Hospital Encounter [facility] [address] [place] [address] documented as of this encounter Visit Diagnoses Not on filedocumented in this encounter Care Teams Polysom Tech Relationship Specialty Start Date End Date Shana Easton MD [address] [place] [address] PCP - General Family Medicine 01/09/20 documented as of this encounter
--- OUTSIDE RECORDS SUMMARY | 2024-03-15 14:29 | XMS_ITS | Encounter Summary ---
Author Organization [facility] Health Address [address] [place] [address] Care Team Providers Care Program Planner Name Role Phone Shana Easton MD Primary Care Provider [phone] Reason for Visit * Reason Onset Date Comments Question 12/12/2023 Encounter Details Date Type Department Care Team (Late st Contact Info) Description 12/12/2023 Telephone [facility] MATERNAL/ EVALUATION UNIT [facility] [place] [address] Vivi Arellano, RN Question Social History Tobacco Use Types Packs/Day Years Used Date Smoking Tobacco: Never Smokeless Tobacco: Never Alcohol Use Standard Drinks/Week Comments Not Currently 0 (1 standard drink = 0.6 oz pur e alcohol) Overall Financial Resource Strain (CARDIA) Lynn r Date Recorded How hard is it for you to pa y for the very basics like food, housing, medical care, and heating? Not hard at all 12/11/2023 [facility] [place] of Occupat ional Health - Occupational Stress [...] place to sleep or slept in a assisted (including now)? No 12/11/2023 [place] Depression Scale Answer Date Recorded [place] Depression Scale Total 0 12/11/2023 The thought of harming myself has occurred to me . Never 12/11/2023 Estimated Date of Delivery Comme nts Yes 02/15/2024 Based on Patient Reported Sex and Gender Information Value Date Recorded Sex Assigned at Female 09/17/2022 8:47 AM CDT Gender Identity Female 09/17/2022 8:47 AM CDT Sexual Orientation Not on file documented as of this encounter Miscellaneous Notes * Telephone Encounter - Vivi Arellano RN - 12/12/2023 3:10 PM CDT Message received from Isis Moe that patient had questions regarding twice weekly testing. Call placed to patient. Patient had questions regarding the need for twice weekly testing. Testing and reasoning explained. All questions answered, patient verbalized understanding documented in this encounter Plan of Treatment Upcoming Encounters Date Type Department Care Team (Late st Contact Info) Description 03/23/2024 Hospital Encounter [facility] [address] [place] [address] documented as of this encounter Visit Diagnoses Not on filedocumented in this encounter Care Teams Program Planner Relationship Specialty Start Date End Date Shana Easton MD [address] [phone] PCP - General Family Medicine 01/09/20 documented as of this encounter
--- OUTSIDE RECORDS SUMMARY | 2024-03-15 14:29 | XMS_ITS | Encounter Summary ---
Author Organization [facility] Address [address] [place] [address] Care Team Providers Care Computational Biologist Name Role Phone Shana Easton MD Primary Care Provider [phone] Reason for Visit * Reason Onset Date Comments Returned Call 11/05/2022 Calling patient back regarding question. Encounter Details Date Type Department Care Team (Late st Contact Info) Description 11/05/2022 Telephone [facility] Maternal & Care [address] [place] [address] Kathe Schafer RN Returned Call (Calling patient back regarding question.) Social History Tobacco Use Types Packs/Day Years [...] encounter Miscellaneous Notes * Telephone Encounter - Ktahe Schafer RN - 11/05/2022 10:05 AM CDT Returning patient call regarding increased pelvic pressure and pain. Patient reports it is off and on and she has pain in her low back as well. Patient reports pelvic pain and pressure as well as back pain making her uncomfortable to walk or lay down. Patient states she had the same thing with her previous son. Patient advised to go to L&D for evaluation of labor.Pt verbalized understanding. MWC told patient ice and rest. Per patient MWC told patient should call [facility] for advice as that is why she comes to [facility]. documented in this encounter Plan of Treatment Upcoming Encounters Date Type Department Care Team (Late st Contact Info) Description 03/23/2024 Hospital Encounter [facility] [address] [place] [address] documented as of this encounter Visit Diagnoses Not on filedocumented in this encounter Care Teams Computational Biologist Relationship Specialty Start Date End Date Shana Easton MD [address] [phone] PCP - General Family Medicine 01/09/20 documented as of this encounter
--- OUTSIDE RECORDS SUMMARY | 2024-03-15 14:29 | XMS_ITS | Encounter Summary ---
Author Organization [facility] Health Address [address] [place] [address] Care Team Providers Care Caster Investment Casting Name Role Phone Shana Easton MD Primary Care Provider [phone] Encounter Details Date Type Department Care Team (Late st Contact Info) Description 12/11/2023 Orders Only [facility] MATERNAL/ EVALUATION UNIT [address] [place] [address] Renetta Moe Social History Tobacco Use Types Packs/Day Years [...] and heating? Not hard at all 12/11/2023 [facility] [place] [facility] Occupat ional Health - Occupational Stress [...] place to sleep or slept in a skilled nursing (including now)? No 12/11/2023 [place] Depression Scale Answer Date Recorded [place] Depression Scale Total 0 12/11/2023 The thought [...] st Contact Info) Description 03/23/2024 Hospital Encounter [facility] 5 [facility] [address] [place] [address] documented as of this encounter Visit Diagnoses Not on filedocumented in this encounter Care Teams Caster Investment Casting Relationship Specialty Start Date End Date Shana Easton MD [address] [phone] PCP - General Family Medicine 01/09/20 documented as of this encounter
--- OUTSIDE RECORDS SUMMARY | 2024-03-15 14:29 | XMS_ITS | Encounter Summary ---
Author Organization [facility] Address [address] [place] [address] Care Team Providers Care Security Monitor Name Role Phone Shana Easton MD Primary Care Provider [phone] Reason for Referral * Consult, Test & Treat (Routine) - Closed Specialty Diagnoses / Procedures Referred By Contac t Referred To Contact Diagnoses History of delivery, currently (HCC) Current patel with history of congenital heart disease in prior child, antepartum (HCC) History of miscarriage, currently (HCC) Cyst of ovary, unspecified laterality History of breast lump/mass excision 18 weeks gestation of (HCC) Procedures MATERNAL MEDICINE CONSULT Bolivar Green MD [address] [place] [address] Referral ID Status Reason Start Date Expiration Date Visits Re quested Visits Authorized [id number] Closed 09/18/2022 09/18/2023 1 1 * (Routine) - Closed Specialty Diagnoses / Procedures Referred By Contac t Referred To Contact Diagnoses History of delivery, currently (HCC) Current patel with history of congenital heart disease in prior child, antepartum (HCC) History of miscarriage, currently (HCC) Cyst of ovary, unspecified laterality History of breast lump/mass excision 18 weeks gestation of (HCC) Procedures SONOGRAM - COMPLETE Bolivar Green MD [address] [place] [address] Referral ID Status Reason Start Date Expiration Date Visits Re quested Visits Authorized [id number] Closed 09/18/2022 09/18/2023 1 1 Reason for Visit * Reason Comments Ultrasound Consultation Encounter Details Date Type Department Care Team (Latest Contact Info) Description 09/26/2022 8:38 AM CDT - 09/26/2022 11:59 PM CDT Hospital Encounter [facility] [address] [place] [address] Jin Ho MD [address] [address] Discharge Disposition: Home or Self [...] and supper documented as of this encounter Progress Notes * Asia Mosquera RN - 09/26/2022 10:20 AM CDT Pt here today for ultrasound and new MFM consult for history of delivery and pyloric stenosis for G2. She reports feeling movement. Denies cramping. Pt states that her bleeding stopped 7/2 from the subchorionic bleed. She denies headaches, visual changes, edema, and epigastric pain. Denies painor urinary s/s today. Pt reports labor with her G2 and G3 pregnancies. She also reports increased blood pressuresat the end of her pregnancies. She reports that that G3 also had IUGR and she had cervical shortening at 30 weeks with that . Pt reports a history of asthma. She is triggered by hot/col temps and exercise. Pt does not have a rescue inhaler. Encouraged pt to obtain one. Pt states that she will call her primary doctor for this. 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 She was on medication for 2 years for it but can not recall the name. She reports her mood as stable today. Pt was seen by Dr. Ho via video visit today. Please see his note for further POC. She will follow up in 2 weeks for cervical length and in 4 weeks for cervical length/growth. Appointments made at checkout today. Pt denies further questions or concerns for her care today. documented in this encounter Consult Notes * Jin Ho MD - 09/26/2022 10:43 AM CDT [facility] CONSULT ASSESSMENT * Patel IUP at 18 weeks of gestation by stated EDC from LMP * Referred to [facility] for consult & obstetrical U/S secondary to: - Prior spontaneous (sPTB) - Prior child with pyloric stenosis * Today's ultrasound (U/S) findings: - growth appears normal - Amniotic fluid volume appears normal - Comprehensive anatomic survey appears normal, but is incomplete - Borderline intraabdominal (liver & bowel) echogenicities are noted - This is likely a normal variant, but requires re-evaluation in several weeks - Endovaginal U/S was performed to better assess cervix & placenta - Functional cervical length is normal-range - Placenta is clear of internal cervical os by > 2 cm PAST MEDICAL & OBSTETRICAL HISTORY * Medications: vitamins (not well-tolerated) & see below * Past Medical History: - No CHTN, no DM, no thyroidopathy - She was a triplet born ~ 24 weeks - Asthma, on no meds - Gastroesophageal reflux (GERD), on omeprazole * Family history of anomalies, syndromes or developmental delay: - Prior child with pyloric stenosis & ? autism - Cousin with autism * Social History: denies ethanol, tobacco, drugs * Past Surgical History: tonsillectomy, breast augmentation * Past Gynecologic History: no cervical cones or LEEPS * Past Obstetrical History: G1: SAB @ 7 wk no D&C G2: @ 39 wk 3260 gm, PTL, HTN, Pyloric stenosis G3: @ 34 wk 2722 gm, PTL, HTN G4: SAB @ 8 wk no D&C G5: Current - Vaginal bleeding during this : 12-18 weeks (stopped September 23) - Febrile illness during this : none * Laboratory Data: Blood type A+, Hct = 40%, PLT = 164K/uL COUNSELING & RECOMMENDATIONS * History of spontaneous (sPTB): - PTB is defined as a delivery occurring >= 20w0d and < 37w0d - Early PTB occurs before 34w0d late PTB occurs between 34w0d and 36w6d - Around 10% of babies deliver before 37w0d and 3% before 34w0d - Predictors of sPTB: prior PTB, prior PPROM, multiple gestation, short cervix - Modifyable risk factors discussed include: - Low maternal prepregnancy weight - Smoking & substance use - Short interpregnancy interval - Recurrence risk of sPTB = 15-30% after sPTBx1 & up to 60% after sPTBx2 - Surveillance methods to detect increased risk of sPTB: - Endovaginal U/S for cervical length every 1-2 weeks between 16-24 weeks - fibronectin (fFN) cervico-vaginal swab @ 24w0d - 34w6d - Available interventions to prevent recurrent sPTB include: - Weekly IM progesterone (17-OHPC) supplementation - Lencho 2002 NEJM: reported 17-OHPC reduced risk of recurrent sPTB by ~30% - Blane 2018 AJP: did not find any benefit of 17-OHPC in preventing sPTB - PTB < 35.0 weeks (11.0% versus 11.5%) - composite index (5.6% versus 5.0%) - In Dec-2021 the FDA withdrew approval of 17-OHPC for this indication - 17-OHPC to prevent recurrent sPTB is generally not advised by our M group - In May-2022 [employer] voluntarily pulled [place] off the market - Daily intravaginal progesterone (if developes short cervix) - Prophylactic cerclage @ 12-14 weeks - Indicated cerclage if CL < 25 mm + Hx prior sPTB < 34 weeks (current patel < 24 weeks) - Indications for cervical cerclage per 2014 ACOG Practice Bulletin #142: - H/O >= 1 2nd-trimester loss with painless cervical dilation (no labor or abruption) - H/O prior cerclage due to painless cervical dilation in the 2nd trimester - Physical exam showing painless cervical dilation in the 2nd trimester - U/S finding of CL < 25 mm + history of prior sPTB < 34 weeks (current patel < 24 weeks) * With vaginal bleeding, there are increased risks for obstetrical complications including: - anomalies, PROM, IUGR, preeclampsia, placental abruption - , delivery & hemorrhage * Infantile hypertrophic pyloric stenosis (IHPS) - One most common conditions requiring surgical intervention in the 1st year of life - Typically presents in infants 2-6 weeks after - Characterized by projectile vomiting, visible gastric peristalsis, palpable pyloric tumor - Mortality was high until pyloromyotomy was developed by Ramstpiaget (1912) - Known risk factors include: - Male sex, , First born, Younger maternal age - Smoking, Bottle feeding, Macrolide antibiotics administered to infants - Multiple susceptibility loci have been implicated in IHPS including: - IHPS1 (234550) on chromosome 12q - IHPS2 (581110) on chromosome 94l99-t35 - IHPS3 (237434) on chromosome 13s93-x17 - IHPS4 (319675) on chromosome Xq23 - IHPS5 (226034) on chromosome 16q24 - Multifactorial sex-modified threshold model of inheritance - Affected males outnumbering females 4:1 - Lopez (1961) estimated that the recurrence risk - For males born after an affected child 10% - For females born after an affected child 2% - Maykel 1996 reported varied incidence between [place] infant population groups - White 1.9 per 1,000 live births - 1.8 per 1,000 live births - Black 0.7 per 1,000 live births - 0.6 per 1,000 live births - nAgelic (2010) performed a population-based study of pyloric stenosis - Among 1,999,738 children born in [place] between 5117-2657 - Followed up for the first year of life - Surgery for pyloric stenosis occurred in 3,362 children - 2,741 (81.5%) were boys, resulting in a qdak-rl-iuurja ratio of 4.4:1 - Incidence rate per 1,000 person-years was 1.8 for singletons and 3.1 for twins - Rate ratios of pyloric stenosis were: - 182 for MZ twins, 29.4 for DZ twins - 18.5 for sibs, 4.99 for half sibs - 3.06 for cousins, and 1.60 for half cousins - Strong familial aggregation with a heritability of about 87% - Does not follow classic mendelian inheritance * Considering her medical history & risk factors above, I would advise: - She plans to see her PCP to address asthma management - Prophylactic cervical cerclage: NO - Cervical length U/S surveillance: YES - If cervical length shortens to <25 mm before 24 weeks, consider 2 options: - History + U/S indicated cervical cerclage, or - Daily vaginal progesterone 90-200 mg/day - Progesterone (17-OHPC) weekly IM supplementation: NO - Low-dose aspirin preeclampsia prophylaxis (prior HTN), if bleeding stops for > 2 weeks - Maternal- evaluation (if not previously done, offer): - Maternal Fragile X syndrome carrier screening - Maternal cystic fibrosis (CF) carrier screening - Maternal spinal muscular atrophy (SMA) carrier screening - genetic screening (e.g. cf-DNA) - Pathogen serologies (e.g. TORCH, Parvovirus) are NOT currently indicated - Follow-up U/S for cervical length @ 20 weeks - Follow-up U/S for growth & AFV & development every 4 weeks - Serial testing (NST+GARRICK or BPP) to be determined - Delivery planning: too early to determine at present - Please notify the baby's Radio Interference Expert of the above history COMMENTS * Thank you very much for requesting [facility] participation in her obstetrical care * Findings were explained & questions were addressed & precautions were given to patient * U/S does not detect all structural & functional ccmqcxbo-wlgoa-ebpyxuuid abnormalities * Telemedicine services were performed for this U/S examination & M consultation - Patient's identity was confirmed at the [facility] office - Appropriateness of the telehealth consult was confirmed - Informed consent for telemedicine services was obtained & scanned into EMR - Modality was secure interactive audio-video session using Access Media 3/nextsocial - Patient site location was [facility] & nurse presenter was Vannessa Mosquera - Distant site provider was Jin Ho MD & location was home office - Consult = 60 minutes, >50% involving bcne-ko-jmzr counseling & coordination of care Jin Ho MD Dynamics Ax Solution Architect, DREDGE WORKER [facility] documented in this encounter Plan of Treatment Upcoming Encounters Date Type Department Care Team (Late st Contact Info) Description 03/23/2024 Hospital Encounter [facility] [address] [place] [address] documented as of this encounter Results * SONOGRAM - COMPLETE (09/26/2022 8:42 AM CDT) Anatomical Region Laterality Modality Other 09/26/2022 8:42 AM CDT Narrative 09/26/2022 11:08 AM CDT ? [facility] ?[facility] ?PHONE: ??FAX: Pat. Name: ?DIOGENES MONET Pat. No: ?[id number] Study Date: ?? 09/26/2022 ??8:42am , Age: ? 2000, 21 Pregnancies: ?? 5, Para 1122 Height: ? 63 in Weight: ? 107 lb LMP: ?05/19/2022 GA by LMP: ?18w4d GA by US: ? 18w5d ?? ANGIE: 02/22/2023 GA Selected: ??18w4d (LMP) ANGIE: ?02/23/2023 Referring MD: Tal Green MD Hand Lacer: ??Belkys Wood, RDMS, RDCS CPT4: ? 15080,19536 BMI: ?18.95 Hist/Ind: ? G1: SAB @ 7 wk no D&C ?G2: @ 39 wk 3260 gm, PTL, HTN, Pyloric stenosis ?G3: @ 34 wk 2722 gm, PTL, HTN ?G4: SAB @ 8 wk no D&C ?G5: Vaginal bleeding @ 12-18 weeks MEASUREMENTS & AGE ? GROWTH EVALUATION Measurement ??GA ? Range ? Srce %for GA Ratios ----- ---- ------- BPD ??4.0 cm 18w0d (42k6n-64l2o) Hadl BPD 26% FL/BPD 0.64 HC ??14.8 cm 17w6d (04p4l-91h6q) Hadl HC ??13% FL/AC ??0.19 AC ??13.8 cm 19w1d (96o6k-59x2f) Hadl AC ??66% HC/AC ??1.07 (1.07 - 1.26) FL ?? 2.6 cm 17w5d (94f3c-61j6a) Hadl FL ??15% CI ? 0.75 (0.70 - 0.86) HL ?? 2.5 cm 17w5d (21l2t-00i6c) Zackery HL ??36% Cere 1.8 cm 17w5d (96k6m-69m1z) Hill Cere12% GA for sonogram 18w5d (95i0p-90n4b) ?? Weight Estimate: based on (BPD,AC) Hadlock ?Weight: 239 gm (204-274gm) Hadloc ? : 0lbs, 8oz ? Normal: 253 gm (190-316gm) Hadloc ? Wt% ? 36% for 18w4d Cervix: ??Length: 3.9 cm ??Approach: transvaginal ??Funneling: not present Heart Rate: 150 bpm EVAL, PLACENTA Presentation: breech Umbilical Cord: 3 Vessels Placenta: posterior Previa: no previa seen Cord Insert: marginal insertion Heart Rate: 150 bpm Amniotic Fluid Volume: normal Anatomy!Normal!Abnormal!Suboptimal!Prev. Seen!Comments Cranium ?! ?? x ??! ?! ?! ?! Mdl (CSP/Thal! ?? x ??! ?! ?! ?! Ventricles ?? ! ?? x ??! ?! ?! ?! Choroid Plexu! ?? x ??! ?! ?! ?! Cerebellum ?? ! ?? x ??! ?! ?! ?! Cisterna M. ??! ?? x ??! ?! ?! ?! Nuchal Fold ??! ?? x ??! ?! ?! ?! Orbits ? ! ?? x ??! ?! ?! ?! Profile ?! ?? x ??! ?! ?! ?! Nasal Bone ?? ! ?? x ??! ?! ?! ?! Lip ?! ?? x ??! ?! ?! ?! Spine ?! ?? x ??! ?! ?! ?! Lungs ?! ?? x ??! ?! ?! ?! 4 Chamber Hea! ?! ?! ? x ?! ?! LVOT ? ! ?! ?! ? x ?! ?! RVOT ? ! ?! ?! ? x ?! ?! 3 Vessel View! ?! ?! ? x ?! ?! 3 Vessel Trac! ?? x ??! ?! ?! ?! Cross-over ?? ! ?? x ??! ?! ?! ?! Ductal Arch ??! ?? x ??! ?! ?! ?! Aortic Arch ??! ?? x ??! ?! ?! ?! Caval View ?? ! ?? x ??! ?! ?! ?! Situs ?! ?? x ??! ?! ?! ?! Diaphragm ?! ?? x ??! ?! ?! ?! Stomach ?! ?? x ??! ?! ?! ?! Bowel ?! ?! ?! ? x ?! ?! Kidneys ?! ?? x ??! ?! ?! ?! Bladder ?! ?? x ??! ?! ?! ?! 3 Vessel Cord! ?? x ??! ?! ?! ?! Cord In! ?? x ??! ?! ?! ?! Upper Extremi! ?? x ??! ?! ?! ?! Hands ?! ?? x ??! ?! ?! ?! Lower Extremi! ?? x ??! ?! ?! ?! Feet ? ! ?? x ??! ?! ?! ?! External Joslyn! ?! ?! ?! ?!Female Placental Cor! ?? x ??! ?! ?! ?!marginal CLINICAL SUMMARY ASSESSMENT * Patel IUP at 18 weeks of gestation by stated EDC from LMP * Referred to [facility] for consult & obstetrical U/S secondary to: ? - Prior spontaneous (sPTB) ? - Prior child with pyloric stenosis * Today's ultrasound (U/S) findings: ? - growth appears normal ? - Amniotic fluid volume appears normal ? - Comprehensive anatomic survey appears normal, but is incomplete ? - Borderline intraabdominal (liver & bowel) echogenicities are noted ? - This is likely a normal variant, but requires re-evaluation in several weeks ? - Endovaginal U/S was performed to better assess cervix & placenta ? - Functional cervical length is normal-range ? - Placenta is clear of internal cervical os by > 2 cm PAST MEDICAL & OBSTETRICAL HISTORY * Medications: vitamins (not well-tolerated) & see below * Past Medical History: ? - No CHTN, no DM, no thyroidopathy ? 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 - Asthma, on no meds ? - Gastroesophageal reflux (GERD), on omeprazole * Family history of anomalies, syndromes or developmental delay: ? - Prior child with pyloric stenosis & ? autism ? - Cousin with autism * Social History: denies ethanol, tobacco, drugs * Past Surgical History: tonsillectomy, breast augmentation * Past Gynecologic History: no cervical cones or LEEPS * Past Obstetrical History: ? G1: SAB @ 7 wk no D&C ? G2: @ 39 wk 3260 gm, PTL, HTN, Pyloric stenosis ? G3: @ 34 wk 2722 gm, PTL, HTN ? G4: SAB @ 8 wk no D&C ? G5: Current ?- Vaginal bleeding during this : 12-18 weeks (stopped September 23) ?- Febrile illness during this : none * Laboratory Data: Blood type A+, ??Hct = 40%, ?? PLT = 164K/uL COUNSELING & RECOMMENDATIONS * History of spontaneous (sPTB): ? - PTB is defined as a delivery occurring >= 20w0d and < 37w0d ? - Early PTB occurs before 34w0d late PTB occurs between 34w0d and 36w6d ? - Around 10% of babies deliver before 37w0d and 3% before 34w0d ? - Predictors of sPTB: prior PTB, prior PPROM, multiple gestation, short cervix ? - Modifyable risk factors discussed include: ? - Low maternal prepregnancy weight ? - Smoking & substance use ? - Short interpregnancy interval ? - Recurrence risk of sPTB = 15-30% after sPTBx1 & up to 60% after sPTBx2 ? - Surveillance methods to detect increased risk of sPTB: ? - Endovaginal U/S for cervical length every 1-2 weeks between 16-24 weeks ? - fibronectin (fFN) cervico-vaginal swab @ 24w0d - 34w6d ? - Available interventions to prevent recurrent sPTB include: ? - Weekly IM progesterone (17-OHPC) supplementation ? - Lencho 2003 NEJM: reported 17-OHPC reduced risk of recurrent sPTB by 30% ? - Arguelles 2019 AJP: did not find any benefit of 17-OHPC in preventing sPTB ? - PTB < 35.0 weeks (11.0% versus 11.5%) ? - composite index (5.6% versus 5.0%) ? - In Dec-2021 the FDA withdrew approval of 17-OHPC for this indication ? - 17-OHPC to prevent recurrent sPTB is generally not advised by our M group ? - In May-2022 [employer] voluntarily pulled [place] off the market ? - Daily intravaginal progesterone (if developes short cervix) ? - Prophylactic cerclage @ 12-14 weeks ? - Indicated cerclage if CL < 25 mm + Hx prior sPTB < 34 weeks (current patel < 24 weeks) ? - Indications for cervical cerclage per 2014 ACOG Practice Bulletin #142: ? - H/O >= 1 2nd-trimester loss with painless cervical dilation (no labor or abruption) ? - H/O prior cerclage due to painless cervical dilation in the 2nd trimester ? - Physical exam showing painless cervical dilation in the 2nd trimester ? - U/S finding of CL < 25 mm + history of prior sPTB < 34 weeks (current patel < 24 weeks) * With vaginal bleeding, there are increased risks for obstetrical complications including: ? - anomalies, PROM, IUGR, preeclampsia, placental abruption ? - , delivery & hemorrhage * Infantile hypertrophic pyloric stenosis (IHPS) ? - One most common conditions requiring surgical intervention in the 1st year of life ? - Typically presents in infants 2-6 weeks after ? - Characterized by projectile vomiting, visible gastric peristalsis, palpable pyloric tumor ? - Mortality was high until pyloromyotomy was developed by Tr (1912) ? - Known risk factors include: ? - Male sex, , First born, Younger maternal age ? - Smoking, Bottle feeding, Macrolide antibiotics administered to infants ? - Multiple susceptibility loci have been implicated in IHPS including: ? - IHPS1 (105449) on chromosome 12q ? - IHPS2 (064019) on chromosome 86q50-e90 ? - IHPS3 (392584) on chromosome 07q25-m84 ? - IHPS4 (327326) on chromosome Xq23 ? - IHPS5 (253574) on chromosome 16q24 ? - Multifactorial sex-modified threshold model of inheritance ? - Affected males outnumbering females 4:1 ? - Lopez (1961) estimated that the recurrence risk ? - For males born after an affected child 10% ? - For females born after an affected child 2% ? - Maykel 1996 reported varied incidence between [place] population groups ? - White 1.9 per 1,000 live births ? - 1.8 per 1,000 live births ? - Black 0.7 per 1,000 live births ? - 0.6 per 1,000 live births ? - Angelic (2010) performed a population-based study of pyloric stenosis ? - Among 1,999,738 children born in [place] between 5584-4743 ? - Followed up for the first year of life ? - Surgery for pyloric stenosis occurred in 3,362 children ? - 2,741 (81.5%) were boys, resulting in a pqan-wk-vsfnxz ratio of 4.4:1 ? - Incidence rate per 1,000 person-years was 1.8 for singletons and 3.1 for twins ? - Rate ratios of pyloric stenosis were: ? - 182 for MZ twins, 29.4 for DZ twins ? - 18.5 for sibs, 4.99 for half sibs ? - 3.06 for cousins, and 1.60 for half cousins ? - Strong familial aggregation with a heritability of about 87% ? - Does not follow classic mendelian inheritance * Considering her medical history & risk factors above, I would advise: ? - She plans to see her PCP to address asthma management ? - Prophylactic cervical cerclage: NO ? - Cervical length U/S surveillance: YES ? - If cervical length shortens to <25 mm before 24 weeks, consider 2 options: ? - History + U/S indicated cervical cerclage, or ? - Daily vaginal progesterone 90-200 mg/day ? - Progesterone (17-OHPC) weekly IM supplementation: NO ? - Low-dose aspirin preeclampsia prophylaxis (prior HTN), if bleeding stops for > 2 weeks ? - Maternal- evaluation (if not previously done, offer): ? - Maternal Fragile X syndrome carrier screening ? - Maternal cystic fibrosis (CF) carrier screening ? - Maternal spinal muscular atrophy (SMA) carrier screening ? - genetic screening (e.g. cf-DNA) ? - Pathogen serologies (e.g. TORCH, Parvovirus) are NOT currently indicated ? - Follow-up U/S for cervical length @ 20 weeks ? - Follow-up U/S for growth & AFV & development every 4 weeks ? - Serial testing (NST+GARRICK or BPP) to be determined ? - Delivery planning: too early to determine at present ? - Please notify the baby's Radio Interference Expert of the above history COMMENTS * Thank you very much for requesting [facility] participation in her obstetrical care * Findings were explained & questions were addressed & precautions were given to patient * U/S does not detect all structural & functional nlqekvbn-yecot-xczwxcdca abnormalities * Telemedicine services were performed for this U/S examination & MFM consultation ? - Patient's identity was confirmed at the [facility] office ? - Appropriateness of the telehealth consult was confirmed ? - Informed consent for telemedicine services was obtained & scanned into EMR ? - Modality was secure interactive audio-video session using Access Media 3/iMemoriesom ? - Patient site location was our [facility] & nurse presenter was Vannessa Mosquera ? - Distant site provider was Jin Ho MD & location was home office ? - Consult = 60 minutes, >50% involving sfov-de-zxhm counseling & coordination of care Jin Ho MD <Electronic Signature> ??09/26/2022 11:08am R Lamont Green MD [facility] ORDERABLES documented in this encounter Visit Diagnoses Diagnosis History of delivery, currently ([facility]) with history of pre-term labor Current patel with history of congenital heart disease in prior child, antepartum ([facility]) History of miscarriage, currently ([facility]) Cyst of ovary, unspecified laterality History of breast lump/mass excision Other postprocedural status 18 weeks gestation of ([facility]) state, incidental History of delivery, currently ([facility])- Primary with history of pre-term labor Current patel with history of congenital heart disease in prior child, antepartum ([facility]) History of miscarriage, currently ([facility]) Cyst of ovary, unspecified laterality History of breast lump/mass excision Other postprocedural status High risk teen in third trimester ([facility]) Short interval between pregnancies affecting , antepartum (HCC) 18 weeks gestation of ([facility]) state, incidental documented in this encounter Care Teams Security Monitor Relationship Specialty Start Date End Date Shana Easton MD [address] [address] PCP - General Family Medicine 01/09/20 documented as of this encounter
--- OUTSIDE RECORDS SUMMARY | 2024-03-15 14:29 | XMS_ITS | Referral Summary ---
Author Organization [facility] Address [address] [place] [address] Care Team Providers Care Crane Hoist Or Lift Operator Name Role Phone Shana Easton MD Primary Care Provider [phone] Source Comments [facility],non-owned Affiliates and Associated Physician Practices is amultiple site organization consisting of ambulatory clinics and hospital sitesin [place], [place], [place] and [place]. This disclosure is being madepursuant to the Care Everywhere program and may not contain all information available regarding this patient. Last updated 17.[facility] Encounters Date Type Department Care Team Description 12/16/2023 Travel 12/16/2023 1:03 PM CDT - 12/16/2023 11:59 PM CDT Hospital Encounter [facility] MATERNAL/ EVALUATION UNIT [address] [facility] [place] [address] Vijaya Birch MD Discharge Disposition: Home or Self Care from Last 3 Months Allergies Active Allergy Reactions Criticality Noted Date Comments Ciprofloxacin Other 07/22/2018 Pt states I can't breath Levofloxacin Rash Medium 06/16/2018 Medications * Be aware that medications may not be up to date on this document. Alwaysverify current medications with the patient. Medication Sig Dispensed Refills Start Date End Date Status omeprazole (PriLOSEC) 40 MG capsule Take 1 (one) capsule by mouth 2 times daily, before breakfast and supper Active Vit-Fe Fumarate-FA ( vitamin) 28-0.8 MG tablet Take 1 (one) tablet by mouth once daily Active Blood Pressure Monitor MISC Use 1 Units 2 times daily 1 Each 12/09/2023 Active acetaminophen (Tylenol) 500 MG tablet Take 1 (one) tablet by mouth every 4 hours as needed for Fever or Pain Maximum allowable Acetaminophen amount = 4 Grams (4000 mg) / 24 hours. Active Active Problems Problem Noted Date Diagnosed Date History of prior with IUGR History of hemorrhage, currently preg nant 12/12/2023 History of pre-eclampsia 12/12/2023 Abnormal maternal glucose tolerance, antepartum 12/12/2023 GBS bacteriuria 12/12/2023 Mild intermittent asthma without complication Supervision of high risk , antepartum 0 12/11/2023 Overview (12/11/2023): - Primary OB: Self SAGAR from in [place] to [facility] - PNL: Rh+/ Antibody neg /RI/HIV NR/SYPH NR/HBV-/HCV-/GBS?/ Varicella - GCCT/trich: - Last Pap: - Hgb Elec: wnl - HbA1c: 5.6 - Genetic screening: low risk NIPT - Vaccinations: - Tdap: assess after 27w - Influenza: - COVID: - RSV: may offer if between 32-36 weeks from Nov - Mar - Ultrasounds: - Dated by 13w2d US - Anatomy US, completed on 10/01 - Growth: - UCx: neg - UDS: neg - 1 hr GTT: 130, need 3 hr - 3T labs: - Tdap: - GBS: - Feeding: - Contraception: - ANFS: Anxiety 12/11/2023 Short interval between pregn ancies affecting , antepartum 10/11/2017 Estimated Date of Delivery Comme nts Yes 02/15/2024 Based on Patient Reported Resolved Problems Problem Noted Date Diagnosed Date Resolved Date Poor growth affecting management of mother in third trimester 10/11/2017 12/12/2023 High risk teen in third trimester 10/11/2017 12/05/2022 Immunizations Name Administration Dates Next Due INFLUENZA VACCINE, QUADR. (F LUZONE; FLULAVAL; FLUARIX; AFLURIA QUADRIVALENT; 6MO+), 0.5 ML (IIV4) 01/16/2020 INFLUENZA VACCINE, TRIV. (FL UZONE; FLULAVAL; FLUARIX; AFLURIA TRIVALENT; 6MO+), 0.5 ML (IIV3) 12/11/2023 TDAP (7yrs+) 12/11/2023 Social History Tobacco Use Types Packs/Day Years Used Date Smoking Tobacco: Never Smokeless Tobacco: Never Tobacco Cessation:Counseling Given: Not Answered Alcohol Use Standard Drinks/Week Comments Not Currently 0 (1 standard drink = 0.6 oz pur e alcohol) Overall Financial Resource Strain (CARDIA) Answe r Date Recorded How hard is it for you to pa y for the very basics like food, housing, medical care, and heating? Not hard at all 12/11/2023 [facility] - Occupational Stress [...] place to sleep or slept in a mcc (including now)? No 12/11/2023 [place] Depression Scale Answer Date Recorded [place] Depression Scale Total 0 12/11/2023 The thought of harming myself has occurred to me . Never 12/11/2023 Estimated Date of Delivery Comme nts Yes 02/15/2024 Based on Patient Reported Sex and Gender Information Value Date Recorded Sex Assigned at Female 09/17/2022 8:47 AM CDT Gender Identity Female 09/17/2022 8:47 AM CDT Sexual Orientation Not on file Last Filed Vital Signs Vital Sign Reading Time Taken Comments Blood Pressure 99/64 12/16/2023 1:18 PM CDT Pulse 76 12/16/2023 1:18 PM CDT Temperature 36.8 ??C (98.3 ??F) 12/09/2023 10:57 AM C DT Respiratory Rate 18 12/09/2023 10:57 AM CDT Oxygen Saturation 97% 12/09/2023 10:57 AM CDT Inhaled Oxygen Concentration - - Weight 62.1 kg (137 lb) 12/11/2023 1:10 PM CDT Height 160 cm (5' 3 ) 12/11/2023 1:10 PM CDT Body Mass Index 24.27 12/11/2023 1:10 PM CDT Plan of Treatment Upcoming Encounters Date Type Department Care Team (Late st Contact Info) Description 03/23/2024 Hospital Encounter [facility] [address] [place] [address] Administered Medications Care Teams Crane Hoist Or Lift Operator Relationship Specialty Start Date End Date Shana Easton MD [address] [phone] PCP - General Family Medicine 01/09/20
--- OUTSIDE RECORDS SUMMARY | 2024-03-15 14:29 | XMS_ITS | Encounter Summary ---
Author Organization [facility] Address [address] [facility] [place] [address] Care Team Providers Care National Accounts Sales Name Role Phone Shana Easton MD Primary Care Provider [phone] Encounter Details Date Type Department Care Team (Latest Contact Info) Description 12/10/2023 1:24 PM CDT - 12/10/2023 11:59 PM CDT Hospital Encounter [facility] [address] [place] [address] Jil Lang MD [address] [facility] [address] [place], [place] [id number] Discharge Disposition: Home or Self Care Social [...] and heating? Not hard at all 12/11/2023 [facility] [place] [facility] Occupat ional Health - Occupational Stress [...] place to sleep or slept in a penitentiary (including now)? No 12/11/2023 [place] Depression Scale Answer Date Recorded [place] Depression Scale Total 0 12/11/2023 The thought [...] Sig Dispensed Refills Start Date End Date Blood Pressure Monitor MISC Use 1 Units 2 times daily 1 Each 12/09/2023 omeprazole (PriLOSEC) 40 MG capsule Take 1 (one) capsule by mouth 2 times daily, before breakfast and supper Vit-Fe Fumarate-FA ( vitamin) 28-0.8 MG tablet Take 1 (one) tablet by mouth once daily documented as of this encounter Plan of Treatment Upcoming Encounters Date Type Department Care Team (Late st Contact Info) Description 03/23/2024 Hospital Encounter [facility] [address] [place] [address] documented as of this encounter Procedures Procedure Name Priority Date/Time Associated Diagnosis Comments PROTEIN URINE TIMED QUANTITATIVE Routine 12/10/2023 1:25 PM CDT Short interval between pregnancies affecting , antepartum (HCC) documented in this encounter Results * PROTEIN URINE TIMED QUANTITATIVE (12/10/2023 1:25 PM CDT) Volume 24 Hour Urine 1,600 mL 12/10/2023 1:50 PM CDT [facility] Collection Time Hours 24 hrs 12/10/2023 1:50 PM CDT [facility] Protein 24 Hour Urine 12/10/2023 1:50 PM CDT [facility] Comment:Unable to calculate due to limited levels of measurable protein. Protein Urine <6.8 <11.9 mg/dL 12/10/2023 1:50 PM CDT [facility] Urine TIMED URINE SPECIMEN / Unknown Timed Urine Volume Measurement / Unknown 12/10/2023 1:25 PM CDT 12/10/2023 1:31 PM CDT Jil Lang MD LAB - URINE MILL STENCILER RY ORDERABLES [facility] [address] [place] [address] documented in this encounter Visit Diagnoses Diagnosis Short interval between pregnancies affecting , antepartum (HCC) documented in this encounter Care Teams National Accounts Sales Relationship Specialty Start Date End Date Shana Easton MD [address] [facility] [address] [place] [address] PCP - General Family Medicine 01/09/20 documented as of this encounter
--- OUTSIDE RECORDS SUMMARY | 2024-03-15 14:29 | XMS_ITS | Encounter Summary ---
Author Organization [facility] Address [address] [facility] [place] [address] Care Team Providers Care Paint And Table Edger Name Role Phone Shana Easton MD Primary Care Provider [phone] Reason for Visit * Reason Onset Date Comments Establish Care 12/09/2023 Encounter Details Date Type Department Care Team (Late st Contact Info) Description 12/09/2023 Telephone [facility] MATERNAL/ EVALUATION UNIT [facility] [facility] [place] [address] Lavinia Kennedy, RN Establish Care Social History Tobacco Use Types Packs/Day [...] care, and heating? Not hard at all 12/09/2023 [facility] - Occupational Stress Questionnaire Answer Date Recorded Do you feel stress - tense, restless, nervous, or anxious, or unable to sleep at night because your mind is troubled all the time - these days? Not at all 12/09/2023 Hunger Vital Sign Answer Date Recorded Within the past 12 months, y ou worried that your food would run out before you got the money to buy more. Never true 12/09/19 24 Within the past 12 months, t he food you bought just didn't last and you didn't have money to get more. Never true 12/09/2023 PRAPARE - Transportation Answer Date Re corded In the past 12 months, has l ack of transportation kept you from medical appointments or from getting medications? No 11/23 In the past 12 months, has l ack of transportation kept you from meetings, work, or from getting things needed for daily living? No 12/09/2023 Housing Stability Vital Sign Answer Jevon e Recorded In the last 12 months, was t here a time when you were not able to pay the mortgage or rent on time? No 12/09/2023 In the last 12 months, how many places have you lived? 2 12/09/2023 In the last 12 months, was t here a time when you did not have a steady place to sleep or slept in a senior living (including now)? No 12/09/2023 Estimated Date of Delivery Comme nts Yes 02/15/2024 Based on Patient Reported Sex and Gender Information Value Date Recorded Sex Assigned at Female 09/17/2022 8:47 AM CDT Gender Identity Female 09/17/2022 8:47 AM CDT Sexual Orientation Not on file documented as of this encounter Miscellaneous Notes * Telephone Encounter - Lavinia Kennedy RN - 12/09/2023 9:28 AM CDT Patient calling office to establish care. She states she was receiving care with [facility] in [place], was seen @ [facility] on Saturday and was informed she now has a diagnosis of pre-ecclampsia. She was told to find an accepting office to establish care, her previousoffice would no longer see her with diagnosis of preE. Patient states her blood pressures are running 140's/90's, she has protein in her urine, she also currently has a headache that does not go away with taking tylenol. She was told to go return to [place] today for NST and blood pressure check. Scheduled for US and New OB with [facility] this week, encouraged patient to present to [facility] forevaluation of elevated blood pressures and headache. TIMOTEO Tam in [facility] notified of patient. documented in this encounter Plan of Treatment Upcoming Encounters Date Type Department Care Team (Late st Contact Info) Description 03/23/2024 Hospital Encounter [facility] [address] [place] [address] documented as of this encounter Visit Diagnoses Not on filedocumented in this encounter Care Teams Paint And Table Edger Relationship Specialty Start Date End Date Shana Easton MD [address] [phone] PCP - General Family Medicine 01/09/20 documented as of this encounter
--- OUTSIDE RECORDS SUMMARY | 2024-03-15 14:29 | XMS_ITS | Encounter Summary ---
Author Organization [facility] Address [address] [facility] [place] [address] Care Team Providers Care Intensive Care Nurse Name Role Phone Shana Easton MD Primary Care Provider [phone] Reason for Referral * (Routine) - Closed Specialty Diagnoses / Procedures Referred By Dora oconnor Referred To Contact Diagnoses Encounter for follow-up ultrasound of anatomy (HCC) 26 weeks gestation of (HCC) Family history of pyloric stenosis Procedures SONOGRAM - COMPLETE SONOGRAM - COMPLETE Jin Ho MD [address] [phone] Referral ID Status Reason Start Date Expiration Date Visits Re quested Visits Authorized [id number] Closed 11/20/2022 11/20/2023 1 1 * (Routine) - Closed Specialty Diagnoses / Procedures Referred By Dora oconnor Referred To Contact Diagnoses Encounter for follow-up ultrasound of anatomy (HCC) 26 weeks gestation of (HCC) Family history of pyloric stenosis Procedures SONOGRAM - COMPLETE SONOGRAM - COMPLETE Jin Ho MD [address] [place] [address] Referral ID Status Reason Start Date Expiration Date Visits Re quested Visits Authorized [id number] Closed 11/20/2022 11/20/2023 1 1 Reason for Visit * Reason Comments Ultrasound Encounter Details Date Type Department Care Team (Latest Contact Info) Description 11/23/2022 10:20 AM CDT - 11/23/2022 11:59 PM CDT Hospital Encounter [facility] Maternal & Care [address] [place], [place] [id number] Jin Ho MD [address] [address] Discharge Disposition: Home or Self [...] st Contact Info) Description 03/23/2024 Hospital Encounter [facility] [address] [place] [address] documented as of this encounter Procedures Procedure Name Priority Date/Time Associated Diagnosis Comments SONOGRAM - COMPLETE Routine 11/23/2022 1 0:43 AM CDT Encounter for follow-up ultrasound of anatomy (HCC) 26 weeks gestation of (HCC) Family history of pyloric stenosis documented in this encounter Results * SONOGRAM - COMPLETE (11/23/2022 10:43 AM CDT) Anatomical Region Laterality Modality Other 11/23/2022 10:4 3 AM CDT Narrative 11/23/2022 11:38 AM CDT ? [facility] ?Maternal and Care Center ?PHONE: ??FAX: Pat. Name: ?DIOGENES MONET Pat. No: ?[id number] Study Date: ?? 11/23/2022 ??10:43am , Age: ? 2000, 22 Pregnancies: ?? 5, Para 1122 Height: ? 63 in Weight: ? 107 lb LMP: ?05/19/2022 GA by LMP: ?26w6d GA by Base: ?? 26w6d ?? ANGIE: 02/23/2023 GA by US: ? 25w4d ?? ANGIE: 03/04/2023 GA Selected: ??26w6d (From [facility]) ANGIE: ?02/23/2023 Referring MD: Tal Green MD Cloth Desizing Range Tender: ??Belkys Wood, MERRY, EDY CPT4: ? 88527 BMI: ?18.95 Hist/Ind: ? G1: SAB ??7 wk no D&C ?G2: 39 wk 3260 gm, PTL, HTN, Pyloric stenosis ?G3: 34 wk 2722 gm, PTL, HTN ?G4: SAB 8 wk no D&C ?G5: Vaginal bleeding 12-18 weeks, Borderline intraabdominal echogenicites at 18 weeks MEASUREMENTS & AGE ? GROWTH EVALUATION Measurement ??GA ? Range ? Srce %for GA Ratios ----- ---- ------- BPD ??6.3 cm 25w3d ([id number]) Hadl BPD 4% FL/BPD 0.77 (0.71 - 0.87) HC ??23.8 cm 25w6d ([id number]) Hadl HC ??4% FL/AC ??0.22 (0.20 - 0.24) AC ??21.8 cm 26w2d ([id number]) Hadl AC ??21% HC/AC ??1.09 (1.00 - 1.19) FL ?? 4.8 cm 26w0d ([id number]) Hadl FL ??13% CI ? 0.73 (0.70 - 0.86) HL ?? 4.4 cm 26w0d ([id number]) Zackery HL ??36% GA for sonogram 25w4d ([id number]) ?? Weight Estimate: based on (BPD,HC,AC,FL) Hadlock ?Weight: 889 gm (759-1018gm) Hadlo ? : 1lbs, 15oz ? Normal: 1041 gm (780- 1301gm) Hadl ? Wt% ? 13% for 26w6d Heart Rate: 134 bpm Amniotic Fluid Index: 05.2cm (Deepest Pocket) EVAL, PLACENTA Presentation: cephalic Placenta: posterior Heart Rate: 134 bpm Amniotic Fluid Volume: normal CLINICAL SUMMARY IMPRESSION: Single, live, intrauterine at 26w6d in cephalic presentation size is lower range of normal ?? Amniotic fluid volume is within normal limits ?? No malformations were seen within the limitations of ultrasound ?? RECOMMEND: Patient is experiencing pelvic pressure and back pain. I feel like I did when I went into labor early with my son She was advised to go to the hospital to be evaluated for delivery. She said she will go directly to [facility] after today's [facility] visit. Ultrasound in 3 weeks for growth & amniotic fluid volume Thank you for allowing us the opportunity to care for your patient Jin Ho MD <Electronic Signature> ??11/23/2022 11:37am Jin Ho MD [facility] ORDERABLES documented in this encounter Visit Diagnoses Diagnosis Encounter for follow-up ultrasound of anatomy (HCC)- Primary 26 weeks gestation of (HCC) state, incidental History of gestational hypertension History of labor Personal history of pre-term labor Family history of pyloric stenosis Family history of other digestive disorders documented in this encounter Care Teams Intensive Care Nurse Relationship Specialty Start Date End Date Shana Easton MD [address] [phone] PCP - General Family Medicine 01/09/20 documented as of this encounter
--- OUTSIDE RECORDS SUMMARY | 2024-03-15 14:29 | XMS_ITS | Encounter Summary ---
Author Organization [facility] Address [address] [place] [address] Care Team Providers Care Doctor Of Nurse Anesthesia Name Role Phone Shana Easton MD Primary Care Provider [phone] Reason for Visit * Reason Onset Date Comments Imaging Results 10/29/2022 Patient has ques tion about imaging results. Encounter Details Date Type Department Care Team (Late st Contact Info) Description 10/29/2022 Telephone [facility] Maternal & Care [address] [place] [address] Kathe Schafer system specialist Results (Patient has question about imaging results. ) Social History Tobacco Use Types Packs/Day Years [...] encounter Miscellaneous Notes * Telephone Encounter - Kathe Schafer RN - 10/29/2022 2:49 PM CDT Patient called regarding imaging results from Saturday as she states the transplant worker said she did notsee the echogenicities in the liver/bowel on Saturday but MFM reports seeing borderline echogenicities still. Discussed we will continue to follow her with ultrasounds. [employer] recommended cf dna, CF, Torch/ parvo labs. Patient states she had a Low risk NIPT, Negative CF screen and she would like to do the TORCH/parvo labs. Patient aware she can go to [facility] at any time for lab draw. TIMOTEO Whitaker from [facility] placed orders for patient to have done. Patient verbalized understanding. documented in this encounter Plan of Treatment Upcoming Encounters Date Type Department Care Team (Late st Contact Info) Description 03/23/2024 Hospital Encounter [facility] [address] [place] [address] documented as of this encounter Visit Diagnoses Not on filedocumented in this encounter Care Teams Doctor Of Nurse Anesthesia Relationship Specialty Start Date End Date Shana Easton MD [address] [phone] PCP - General Family Medicine 01/09/20 documented as of this encounter
--- OUTSIDE RECORDS SUMMARY | 2024-03-15 14:29 | XMS_ITS | Patient Health Summary ---
Author Organization [facility] Address [address] [place] [address] Care Team Providers Care Wind [employer] Operations Manager Name Role Phone Shana Easton MD Primary Care Provider [phone] Note from [facility],non-owned Affiliates and Associated Physician Practices is amultiple site organization consisting of ambulatory clinics and hospital sitesin [place], [place], [place] and [place]. This disclosure is being madepursuant to the Care Everywhere program and may not contain all information available regarding this patient. Last updated 17.[facility] Allergies * Ciprofloxacin(Other) * Levofloxacin(Rash) -Medium Criticality Medications * Be aware that medications may not be up to date on this document. Alwaysverify current medications with the patient. * omeprazole (PriLOSEC) 40 MG capsule Take 1 (one) capsule by mouth 2 times daily, before breakfast and supper * Vit-Fe Fumarate-FA ( vitamin) 28-0.8 MG tablet Take 1 (one) tablet by mouth once daily * Blood Pressure Monitor [facility](Started 12/09/2023) Use 1 Units 2 times daily * acetaminophen (Tylenol) 500 MG tablet Take 1 (one) tablet by mouth every 4 hours as needed for Fever or Pain Maximum allowable Acetaminophen amount = 4 Grams (4000 mg) / 24 hours. Active Problems Problem Noted Date Diagnosed Date History of prior with IUGR History of hemorrhage, currently preg nant 12/12/2023 History of pre-eclampsia 12/12/2023 Abnormal maternal glucose tolerance, antepartum 12/12/2023 GBS bacteriuria 12/12/2023 Mild intermittent asthma without complication Supervision of high risk , antepartum 0 12/11/2023 Anxiety 12/11/2023 Short interval between pregn ancies affecting , antepartum 10/11/2017 Resolved Problems Problem Noted Date Diagnosed Date Resolved Date Poor growth affecting management of mother in third trimester 10/11/2017 12/12/2023 High risk teen in third trimester 10/11/2017 12/05/2022 Immunizations * INFLUENZA VACCINE, QUADR. (FLUZONE; FLULAVAL; FLUARIX; AFLURIA QUADRIVALENT; 6MO+), 0.5 ML (IIV4)(Given 01/16/2020) * INFLUENZA VACCINE, TRIV. (FLUZONE; FLULAVAL; FLUARIX; AFLURIA TRIVALENT; 6MO+), 0.5 ML (IIV3)(Given 12/11/2023) * TDAP (7yrs+)(Given 12/11/2023) Social History Tobacco Use Types Packs/Day Years [...] and heating? Not hard at all 12/11/2023 [facility] [place] of Occupat ional Health - Occupational Stress [...] money to buy more. Never true 12/11/19 Within the past 12 months, t he [...] place to sleep or slept in a half-way (including now)? No 12/11/2023 Mumford Depression Scale Answer Date Recorded Mumford Depression Scale Total 0 12/11/2023 The thought [...] Mass Index 24.27 12/11/2023 1:10 PM CDT Procedures * URINALYSIS - POCT (IP) BEAKER INTERFACE(Performed 12/11/2023) * SONOGRAM - COMPLETE(Performed 12/11/2023) * IMAGING/RADIOLOGY/XRAY RESULTS ORDER(Performed 12/11/2023) * PROTEIN URINE TIMED QUANTITATIVE(Performed 12/10/2023) Performed for Short interval between pregnancies affecting , antepartum ([facility]) * NONSTRESS TEST(Performed 12/09/2023) * URINE MICROSCOPIC ONLY REFLEX TO CULTURE(Performed 12/09/2023) Performed for Poor growth affecting management of mother in third trimester, single or unspecified fetus ([facility]) * PROTEIN CREATININE RATIO URINE RANDOM PNL(Performed 12/09/2023) Performed for Poor growth affecting management of mother in third trimester, single or unspecified fetus ([facility]) * URINALYSIS REFLEX MICROSCOPIC REFLEX CULTURE(Performed 12/09/2023) Performed for Poor growth affecting management of mother in third trimester, single or unspecified fetus ([facility]) * COMPREHENSIVE METABOLIC PANEL(Performed 12/09/2023) Performed for Poor growth affecting management of mother in third trimester, single or unspecified fetus ([facility]) * CBC W AUTO DIFFERENTIAL(Performed 12/09/2023) Performed for Poor growth affecting management of mother in third trimester, single or unspecified fetus ([facility]) * CULTURE URINE(Performed 12/09/2023) Performed for Poor growth affecting management of mother in third trimester, single or unspecified fetus ([facility]) * SONOGRAM - COMPLETE(Performed 12/11/2022) Performed for History of labor, History of gestational hypertension, 29 weeks gestation of ([facility]), SGA (small for gestational age) ([facility]), Encounter for ultrasound to assess growth ([facility]) * SONOGRAM - COMPLETE(Performed 11/23/2022) Performed for Encounter for follow-up ultrasound of anatomy ([facility]), 26 weeks gestation of ([facility]), Family history of pyloric stenosis * SONOGRAM - COMPLETE(Performed 10/26/2022) Performed for High risk teen in third trimester ([facility]), Poor growth affecting management of mother in third trimester, single or unspecified fetus ([facility]), Short interval between pregnancies affecting , antepartum ([facility]), Encounter for ultrasound ([facility]) * SONOGRAM - COMPLETE(Performed 10/12/2022) Performed for History of delivery, currently ([facility]), High risk teen in third trimester ([facility]), Short interval between pregnancies affecting , antepartum ([facility]), 20 weeks gestation of ([facility]), Poor growth affecting management of mother in third trimester, single or unspecified fetus (HCC) * SONOGRAM - COMPLETE(Performed 09/26/2022) Performed for History of delivery, currently (HCC), Current bazzi with history of congenital heart disease in prior child, antepartum (HCC), History of miscarriage, currently (HCC), Cyst of ovary, unspecified laterality, History of breast lump/mass excision, 18 weeks gestation of ([facility]) * SKIN TEST PPD - POINT OF CARE(Performed 01/16/2020) Performed for PPD screening test * SKIN TEST PPD - POINT OF CARE(Performed 01/06/2020) Performed for Visit for TB skin test * SKIN TEST PPD - POINT OF CARE(Performed 05/20/2019) Performed for PPD screening test * SONOGRAM - COMPLETE(Performed 10/07/2017) Performed for Poor growth affecting management of mother in third trimester, single or unspecified fetus (HCC) * GROSS + MICRO EXAM(Performed 2000) Results * (ABNORMAL) URINALYSIS - POCT (IP) BEAKER INTERFACE (12/11/2023 1:16 PM CDT) Color UA POCT Yellow Straw, Yellow, Dark Yellow, Light Yellow 12/11/2023 1:18 PM CDT [facility] Clarity UA POCT Clear Clear 4 1:18 PM CDT [facility] Specific Flushing UA POCT 1.010 1.005 - 1.030 12/11/2023 1:18 PM CDT [facility] pH UA POCT 6.0 5.0 - 8.0 pH 12/11/2023 1:18 PM CDT [facility] Protein UA POCT Negative Negative 4 1:18 PM CDT [facility] Blood UA POCT Negative Negative 12/11/2023 1:18 PM CDT [facility] Leukocyte UA POCT 1+(A) Negative 12/11/2023 1:18 PM CDT [facility] Nitrite UA POCT Negative Negative 4 1:18 PM CDT [facility] Glucose UA POCT Negative Negative 4 1:18 PM CDT [facility] Ketone UA POCT Negative Negative 12/11/2023 1:18 PM CDT [facility] Bilirubin UA POCT Negative Negative 12/11/2023 1:18 PM CDT [facility] Urobilinogen UA POCT 0.2 0.1 - 1.0 EU/dL 12/11/2023 1:18 PM CDT [facility] Urine URINE / Unknown 12/11/2023 1 :16 PM CDT 12/11/2023 1:18 PM CDT Zachery Alfred MD LAB - POINT OF CARE ORDERABLES Performing Organization Address City/State/[facility] Co de Phone Number [facility] [address] [place] [address] * SONOGRAM - COMPLETE (12/11/2023 12:16 PM CDT) Only the most recent of7 resultswithin the time period is included. Anatomical Region Laterality Modality Other 12/11/2023 12:1 6 PM CDT Narrative 12/11/2023 1:24 PM CDT ?[facility] ? - [place] ?[facility] ?PHONE: ??FAX: Pat. Name: ?DIOGENES MONET Pat. No: ?[id number] Study Date: ?? 12/11/2023 ??12:16pm , Age: ? 2000, 23 Pregnancies: ?? 6, Para 3, Ab 2 Height: ? 63 in Weight: ? 135 lb LMP: ?Unknown GA by US: ? 29w6d ?? ANGIE: 02/20/2024 GA Selected: ??30w4d (From Known E) ANGIE: ?02/15/2024 Referring MD: Benita, , [facility] Derrick Worker Well Service: ??Andres Reyna, RDMS CPT4: ? 69439,[id number] BMI: ?23.91 Hist/Ind: ? SAGAR ?PreE w/o SF ?Short interval ?Elevated GCT- uknown GTT results MEASUREMENTS & AGE ? GROWTH EVALUATION Measurement ??GA ? Range ? Srce %for GA Ratios ----- ---- ------- BPD ??7.6 cm 30w2d ([id number]) Hadl BPD 29% FL/BPD 0.74 (0.71 - 0.87) HC ??28.4 cm 31w1d (06d3x-78j7b) Hadl HC ??29% FL/AC ??0.21 (0.20 - 0.24) AC ??27.0 cm 31w1d (63g3r-62b3j) Hadl AC ??62% HC/AC ??1.05 (0.97 - 1.16) FL ?? 5.6 cm 29w2d (04z5p-54i6j) Hadl FL ??9% CI ? 0.74 (0.70 - 0.86) HL ?? 5.0 cm 29w0d (78z9o-23l9y) Zackery HL ??24% Cere 3.8 cm 31w2d ([id number]) Hill Cere63% GA for sonogram 29w6d ([id number]) ?? Weight Estimate: based on (BPD,HC,AC,FL) Hadlock ?Weight: 1582 gm (1351-1813gm) Had ? : 3lbs, 7oz ? Normal: 1669 gm (1251- 2086gm) Had ? Wt% ? 35% for 30w4d Heart Rate: 130 bpm Amniotic Fluid Index: 10.1cm (08.9-23.6) Q1: 2.8cm ??Q2: 2.4cm ??Q3: 2.9cm ??Q4: 2.0cm ?? Biophysical Profile: 10/30 Breathin ?? Tone: 2 ?? Movement: ??2 ?? AFV: ??2 EVAL, PLACENTA Presentation: cephalic Umbilical Cord: 3 Vessels Placenta: anterior Heart Rate: 130 bpm Amniotic Fluid Volume: normal DOPPLER Umbilical - Mid Cord S/D ??2.41(1.93 - 4.03) ? PI ?? 0.87 (0.69 - 1.28) ? MATERNAL ANATOMY Right ??Desc: Appears normal Left ??Desc: Suboptimal Anatomy!Normal!Abnormal!Suboptimal!Prev. Seen!Comments Cranium ?! ?? x ??! [...] ??! ?! ?! ?! 4 Chamber Hea! ?? x ??! ?! ?! ?! LVOT ? ! ?! ?! ? x ?! ?! RVOT ? ! ?? x ??! ?! ?! ?! 3 Vessel View! ?? x ??! ?! ?! ?! 3 Vessel Trac! ?? x ??! ?! ?! ?! Cross-over ?? ! ?? x ??! ?! ?! ?! Ductal Arch ??! ?! ?! ? x ?! ?! Aortic Arch ??! ?? x ??! ?! ?! ?! Caval View ?? ! ?? x ??! ?! ?! ?! Situs ?! ?? x ??! ?! ?! ?! Diaphragm ?! ?? x ??! ?! ?! ?! Stomach ?! ?? x ??! ?! ?! ?! Bowel ?! ?? x ??! ?! ?! ?! Kidneys ?! ?? x ??! ?! ?! ?! Bladder ?! ?? x ??! ?! ?! ?! 3 Vessel Cord! ?? x ??! ?! ?! ?! Cord In! ?! ?! ? x ?! ?! Upper Extremi! ?? x ??! ?! ?! ?! Hands ?! ?! ?! ? x ?! ?! Lower Extremi! ?? x ??! ?! ?! ?! Feet ? ! ?? x ??! ?! ?! ?! External Joslyn! ?! ?! ? x ?! ?! Placental Cor! ?? x ??! ?! ?! ?! Maternal Adne! ?! ?! ? x ?! ?! CLINICAL SUMMARY A single fetus is seen in cephalic presentation. ??The measurements today are consistent with appropriate growth for the ANGIE provided. ??The ANGIE is based on a prior ultrasound. ??The amniotic fluid volume is within normal limits. ?? IMPRESSION: Single, live, intrauterine at 30w4d ?? Fetus measuring 29w6d (EFW 35%, AC 62%), which is consistent with established dating. Amniotic fluid volume: within normal limits ?? No major malformations were seen within the limitations of ultrasound ?? Reassuring Umbilical Artery Doppler BP 10/30 RECOMMEND: Twice weekly testing due to preeclampsia without severe features. Ultrasound in 3-4 weeks for growth and completion of the anatomic survey ?? Thank you for allowing us the opportunity to care for your patient. ?? Zachery Alfred MD <Electronic Signature> ??12/11/2023 01:14pm Revised Raman Medeiros MD [facility] ORDERABLES * IMAGING RADIOLOGY XRAY RESULTS ORDER (12/11/2023 3:33 AM CDT) Anatomical Region Laterality Modality Other Narrative 12/11/2023 3:33 AM CDT Ordered by an unspecified provider. Scanned Document IMAGING * PROTEIN URINE TIMED QUANTITATIVE (12/10/2023 1:25 PM CDT) Volume 24 Hour Urine 1,600 mL 12/10/2023 1:50 PM CDT [facility] Collection Time Hours 24 hrs 12/10/2023 1:50 PM CDT [facility] Protein 24 Hour Urine 12/10/2023 1:50 PM CDT [facility] Comment:Unable to calculate due to limited levels of measurable protein. Protein Urine <6.8 <11.9 mg/dL 12/10/2023 1:50 PM CDT [facility] Urine TIMED URINE SPECIMEN / Unknown Timed Urine Volume Measurement / Unknown 12/10/2023 1:25 PM CDT 12/10/2023 1:31 PM CDT Jil Lang MD LAB - URINE CAUSE ANALYST RY ORDERABLES [facility] [address] [place] [address] * NONSTRESS TEST (12/09/2023 1:00 PM CDT) Narrative Jil Lang MD - 12/09/2023 1:00 PM CDT Melodie Henley MD ? 12/09/2023 ??5:09 PM Name: ??Diogenes Monet Date of : ??2000 Today's Date: ??12/09/2023 30w2d ?NST RESULTS (BAZZI) OBJECTIVE FINDINGS Temp: 98.3 ??F (36.8 ??C), ??, Resp: 18, BP: 118/80 NST Indication(s): Pre-eclampsia Uterine Irritability: No Contractions: Not present OBJECTIVE FINDINGS Movement: Present Monitoring Mode: External Baseline: 125 BPM Variability: Moderate Decelerations: None Accelerations: Yes OTHER INFORMATION Nydia Escobedo RN Non-Stress Test [facility] Patient Name: Diogenes Monet LMP: No LMP recorded (lmp unknown). Patient is . Gestational Age: 30w2d as of 12/09/2023 Estimated Date of Delivery: 02/15/24 Indications: Pre-Eclampsia NST date: 12/09/2023 NST duration: >20 mins Interpretation: ?Baseline: ??130 beats/minute moderate variability ?Reactive ?Contractions: ??none ?Decelerations: ??none Impression and Plan: FWB reassuring, continue monitoring as scheduled. Stacy Valverde MD 12/09/2023 4:43 PM MFM Fellow Addendum: I agree with the above documentation. Melodie Henley MD U Obstetrics and Gynecology, PGY-5 Gloria Tompkins MD OB GYNE ORDERABLES * (ABNORMAL) URINE MICROSCOPIC ONLY REFLEX TO CULTURE (12/09/2023 11:39 AM CDT) Reflex Status Culture to follow 12/09/2023 12:05 PM CDT [facility] RBC UA 0-2 0 - 5 # /hpf 12/09/2023 12:05 PM CDT [facility] WBC UA 11-20(A) 0 - 5 # /hpf 12/09/2023 12:05 PM CDT [facility] Bacteria UA Trace(A) None Seen 12/09/2023 12:05 PM CDT [facility] Squamous Epithelial Cells 11-20(A) 0 - 5 /hpf 12/09/2023 12:05 PM CDT [facility] Mucus UA 3+ /LPF 12/09/2023 12:05 PM CDT [facility] Urine URINE SPECIMEN OBTAINED BY CLEAN CATCH PROCEDURE / Unknown Collection / Unknown 12/09/2023 11:39 AM CDT 12/09/2023 11:49 AM CDT Narrative [facility] - 12/09/2023 12:05 PM CDT Jil Lang MD LAB - URINALYSIS OR DERABLES Performing Organization Address City/State/[facility] Co de Phone Number [facility] [address] [place] [address] * (ABNORMAL) URINALYSIS REFLEX MICROSCOPIC REFLEX CULTURE (12/09/2023 11:39 AM CDT) Color UA Yellow Straw, Yellow 12/09/2023 12:03 PM CDT [facility] Clarity UA Slt Cloudy(A) Clear 12/09/2023 12:03 PM CDT [facility] Glucose UA Negative Negative 12/09/2023 12:03 PM CDT [facility] Bilirubin UA Negative Negative 12/09/2023 12:03 PM CDT [facility] Ketone UA Negative Negative 12/09/2023 12:03 PM CDT [facility] Specific Flushing UA 1.014 1.005 - 1.030 12/09/2023 12:03 PM CDT [facility] Blood UA Negative Negative 12/09/2023 12:03 PM CDT [facility] pH UA 6.0 5.0 - 8.0 pH 12/09/2023 12:03 PM CDT [facility] Protein UA Negative Negative 12/09/2023 12:03 PM CDT [facility] Urobilinogen UA 4.0(A) Negative mg/dL 12/09/2023 12:03 PM CDT [facility] Nitrite UA Negative Negative 12/09/2023 12:03 PM CDT [facility] Leukocyte UA 2+(A) Negative 12/09/2023 12:03 PM CDT [facility] Urine Microscopy Urine microscopy to follow 12/09/2023 12:03 PM CDT [facility] Reflex Status Culture to follow 12/09/2023 12:03 PM CDT [facility] Urine URINE SPECIMEN OBTAINED BY CLEAN CATCH PROCEDURE / Unknown Collection / Unknown 12/09/2023 11:39 AM CDT 12/09/2023 11:49 AM CDT Narrative [facility] - 12/09/2023 12:03 PM CDT Ascorbic Acid can cause false negative urine strip tests for blood, glucose, nitrite, and bilirubin. Jil Lang MD LAB - URINALYSIS OR DERABLES Performing Organization Address City/[facility]/ZIP Co de Phone Number [facility] [address] [place] [address] * CULTURE URINE (12/09/2023 11:39 AM CDT) [facility] Culture Urine 50,000-100,000 CFU/mL urogenital marcos BRENDA 12/11/2023 12:54 AM CDT [facility] Urine URINE SPECIMEN OBTAINED BY CLEAN CATCH PROCEDURE / Unknown Collection / Unknown 12/09/2023 11:39 AM CDT 12/09/2023 11:49 AM CDT Jil Lang MD LAB - MICROBIOLOGY ORDERABLES Performing Organization Address City/[facility]/ZIP Co de Phone Number [facility] [address] [place] [address], [facility] [phone] * (ABNORMAL) CBC W AUTO DIFFERENTIAL (12/09/2023 11:39 AM CDT) [facility] WBC 9.5 4.0 - 10.7 x10E9/L 12/09/2023 12:01 PM [facility] RBC Count 4.32 3.90 - 5.20 x10E12/L 12/09/2023 12:01 PM [facility] Hemoglobin 11.2(L) 11.9 - 15.8 g/dL 12/09/2023 12:01 PM [facility] Hematocrit 35.9 34.8 - 46.1 % 12/09/2023 12:01 PM [facility] MCV 83.1 80.0 - 98.0 fL 12/09/2023 12:01 PM [facility] MCH 25.9(L) 26.7 - 33.6 pg 12/09/2023 12:01 PM [facility] MCHC 31.2(L) 31.7 - 36.3 g/dL 12/09/2023 12:01 PM [facility] RDW-CV 13.7 11.3 - 14.8 % 12/09/2023 12:01 PM [facility] Platelet Count 203 150 - 420 x10E9/L 12/09/2023 12:01 PM [facility] MPV 10.9 7.8 - 11.4 fL 12/09/2023 12:01 PM [facility] Neutrophil % 77.0(H) 41.0 - 74.0 % 12/09/2023 12:01 PM [facility] Lymphocyte % 13.3(L) 17.0 - 47.0 % 12/09/2023 12:01 PM [facility] Monocyte % 8.1 3.0 - 11.0 % 12/09/2023 12:01 PM [facility] Eosinophil % 0.3 0.0 - 7.0 % 12/09/2023 12:01 PM [facility] Basophil % 0.3 0.0 - 1.6 % 12/09/2023 12:01 PM [facility] Immature Granulocytes % 1.0 0.0 - 1.0 % 12/09/2023 12:01 PM [facility] Neutrophil Absolute 7.34 1.60 - 7.50 x10E9/L 12/09/2023 12:01 PM CDT [facility] Lymphocyte Absolute 1.27 1.00 - 4.40 x10E9/L 12/09/2023 12:01 PM CDT [facility] Monocyte Absolute 0.77 0.15 - 1.00 x10E9/L 12/09/2023 12:01 PM CDT [facility] Eosinophil Absolute 0.03 0.00 - 0.60 x10E9/L 12/09/2023 12:01 PM CDT [facility] Basophil Absolute 0.03 0.00 - 0.13 x10E9/L 12/09/2023 12:01 PM CDT [facility] Blood BLOOD SPECIMEN / Unknown Venipuncture / Unknown 12/09/2023 11:39 AM CDT 12/09/2023 11:49 AM CDT Jil Lang MD LAB - HEMATOLOGY OR DERABLES Performing Organization Address [facility] Co de Phone Number [facility] [address] [place] [phone] * (ABNORMAL) COMPREHENSIVE METABOLIC PANEL (12/09/2023 11:39 AM CDT) Glucose 78 70 - 105 mg/dL 12/09/2023 12:21 PM CDT [facility] Sodium 138 136 - 145 mmol/L 12/09/2023 12:21 PM CDT [facility] Potassium 4.0 3.5 - 5.1 mmol/L 12/09/2023 12:21 PM CDT [facility] Chloride 107 98 - 107 mmol/L 12/09/2023 12:21 PM CDT [facility] CO2 23 22 - 29 mmol/L 12/09/2023 12:21 PM CDT [facility] Calcium 8.9 8.4 - 10.4 mg/dL 12/09/2023 12:21 PM CDT [facility] Anion Gap 8 6 - 16 mmol/L 12/09/2023 12:21 PM CDT [facility] BUN 5(L) 5.3 - 18.7 mg/dL 12/09/2023 12:21 PM CDT [facility] Creatinine 0.51(L) 0.57 - 1.11 mg/dL 12/09/2023 12:21 PM T [facility] Alkaline Phosphatase 82 40 - 150 U/L 12/09/2023 12:21 PM CDT [facility] ALT 10 0 - 55 U/L 12/09/2023 12:21 PM T [facility] AST 10 5 - 34 U/L 12/09/2023 12:21 PM T [facility] Protein Total 6.5 6.4 - 8.3 gm/dL 12/09/2023 12:21 PM T [facility] Albumin 3.0(L) 3.4 - 5.0 gm/dL 12/09/2023 12:21 PM T [facility] Bilirubin Total 0.4 0.2 - 1.2 mg/dL 12/09/2023 12:21 PM [facility] eGFR by CKD-EPI >90 >=90 mL/min/1.7 3 m2 12/09/2023 12:21 PM T [facility] Blood BLOOD SPECIMEN / Unknown Venipuncture / Unknown 12/09/2023 11:39 AM CDT 12/09/2023 11:48 AM CDT Jil Lang MD LAB - CHEMISTRY ORD ERABLES [facility] [address] [place] [address] * PROTEIN CREATININE RATIO URINE RANDOM PNL (12/09/2023 11:39 AM CDT) Protein Urine 7.1 <11.9 mg/dL 12/09/2023 12:23 PM T [facility] Creatinine Urine 80.19 mg/dL 12/09/2023 12:23 PM CDT [facility] Protein/Creatin ine Ratio Urine 0.09 12/09/2023 12:23 PM T [facility] Urine URINE SPECIMEN OBTAINED BY CLEAN CATCH PROCEDURE / Unknown Collection / Unknown 12/09/2023 11:39 AM CDT 12/09/2023 11:49 AM CDT Jil Lang MD LAB - URINE CAUSE ANALYST RY ORDERABLES [facility] [address] [id number] * SKIN TEST PPD - POINT OF CARE (01/16/2020 10:15 AM CDT) Only the most recent of3 resultswithin the time period is included. PPD 0mm-negative ; placed 01/15 at 1015; read 01/17 at 1040 Other MISCELLANEOUS SAMPLE S / Unknown 01/16/2020 10:15 AM CDT Asia Moncada APRN-DEO LAB - POINT OF CARE ORDERABLES * GROSS + MICRO EXAM (1998 10:00 AM CDT) Result CASE NUMBER [id number] [facility] PATH REPORT Comment: ORDERING PHYSICIAN ??KRISTEN SR SPECIMEN TYPE ?Placenta CLINICAL HISTORY ? GROSS DESCRIPTION ? CLINICAL DATA ?? Gestational Age ??34 weeks Weight ??1942 grams RDS ??X Facies ?? Congenital Anomalies ?? MOTHER Age ??19 years ? Grav ??2 ?? Para ??3 ?? Ab ?? Hypertension ?Bleeding ?? Oligohydramnios ? Infection ?? Polyhydramnios ?Previous Stillbirths ?? Labor/Duration ?Diabetes ?? Additional Comments ?? GROSS DESCRIPTION ?? The specimen is received in a formalin-filled container labeled with the patient's name only. ??The specimen consists of a single disc twin placenta with associated umbilical cords and membranes. ??There is a single placental disc that measures 19 x 17 x approximately 4.5 cm. thick. ??Umbilical cord A is received with a single clamp, it measures approximately 33 cm. long x 1.5 cm. in largest diameter. ??It has no true or false knots. ??The cut surface of umbilical cord A reveals three vascular channels. ??Umbilical cord A inserts excentrically approximately 3.5 cm. away from the closest placental margin. surface A is grayish blue, shiny and glistening with scattered fibrin plaques. ?? membranes A are translucent, shiny and glistening and partially detached from the underlying placental parenchyma, the largest length is approximately 10 cm. Intervening membrane is translucent, shiny and glistening and its largest length is approximately 13.5 cm. ??Umbilical cord B is received with two clamps measuring approximately 27 cm. long x 1.5 cm. in largest diameter. ??No true or false knots are identified. ??The cut surface of umbilical cord B reveals three vascular channels. ??Umbilical cord B inserts marginally. ?? membranes B are slightly opaque with the largest length being approximately 15 cm. ??The maternal surface of the placenta consists of multiple complete cotyledons. ??The cut surface of the placenta is maroon and homogeneous. ??The weight after trimming is 713 grams. ??The following sections are submitted ??cassette A1, umbilical cord and membranes A , cassettes A2 and A3, placenta A , cassette A4, intervening membrane and placenta , cassette A5, umbilical cord and membranes B , and cassettes A6 and A7, placenta B . ??(/akn) MICROSCOPIC DESCRIPTION ? 7 H/E. DIAGNOSIS ? DIAGNOSIS ?? SINGLE DISC DIAMNIOTIC MONOCHORIONIC TWIN ?PLACENTA, 713 GRAMS (NEW 727 GRAMS). ?PLACENTA A ? - NO PATHOLOGIC DIAGNOSIS. ?PLACENTA B ? - NO PATHOLOGIC DIAGNOSIS. Hemp Fiber Taker Off ? Melina Bustillos RESIDENT IN PATHOLOG Ar Wellington M.D. PATHOLOGIST ?Art Guido M.D. 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
--- OUTSIDE RECORDS SUMMARY | 2024-03-15 14:29 | XMS_ITS | Encounter Summary ---
Author Organization [facility] Health Address [address] [facility] [place] [address] Care Team Providers Care Coach Builder Name Role Phone Shana Easton MD Primary Care Provider [phone] Reason for Referral * Consultation (Routine) - Authorized Specialty Diagnoses / Procedures Referred By Contac t Referred To Contact Diagnoses Anxiety Melodie Henley MD [address] [facility] [address] [place] [address] Gene Harding MD [address] [place] [address] Referral ID Status Reason Start Date Expiration Date Visits Requested Visits Authorized [id number] Authorized Specialty Services Required 12/11/2023 12/10/2024 1 1 Reason for Visit * Reason Comments Ultrasound Routine Visit Initial Visit Encounter Details Date Type Department Care Team (Late st Contact Info) Description 12/11/2023 12:03 PM CDT - 12/11/2023 11:59 PM CDT Hospital Encounter [facility] MATERNAL/ EVALUATION UNIT [facility] [address] [place] [address] Zachery Alfred MD [address] [facility] [address] [place] [phone] Melodie Duval MD [address] [place] [address] Discharge Disposition: Home or Self Care Social [...] and heating? Not hard at all 12/11/2023 [facility] [place] of Occupat ional Health - Occupational Stress [...] place to sleep or slept in a longterm (including now)? No 12/11/2023 [place] Depression Scale Answer Date Recorded [place] Depression Scale Total 0 12/11/2023 The thought of harming myself has occurred to me . Never 12/11/2023 Estimated Date of Delivery Comme nts Yes 02/15/2024 Based on Patient Reported Sex and Gender Information Value Date Recorded Sex Assigned at Female 09/17/2022 8:47 AM CDT Gender Identity Female 09/17/2022 8:47 AM CDT Sexual Orientation Not on file documented as of this encounter Last Filed Vital Signs Vital Sign Reading Time Taken Comments Blood Pressure 126/84 12/11/2023 1:42 PM CDT Pulse 91 12/11/2023 1:42 PM CDT Temperature - - Respiratory Rate - - Oxygen Saturation - - Inhaled Oxygen Concentration - - Weight 62.1 kg (137 lb) 12/11/2023 1:10 PM CDT Height 160 cm (5' 3 ) 12/11/2023 1:10 PM CDT Body Mass Index 24.27 12/11/2023 1:10 PM CDT documented in this encounter Medications at Time of Discharge Medication Sig Dispensed Refills Start Date End Date acetaminophen (Tylenol) 500 MG tablet Take 1 (one) tablet by mouth every 4 hours as needed for Fever or Pain Maximum allowable Acetaminophen amount = 4 Grams (4000 mg) / 24 hours. Blood Pressure Monitor MISC Use 1 Units 2 times daily 1 Each 12/09/2023 omeprazole (PriLOSEC) 40 MG capsule Take 1 (one) capsule by mouth 2 times daily, before breakfast and supper Vit-Fe Fumarate-FA ( vitamin) 28-0.8 MG tablet Take 1 (one) tablet by mouth once daily documented as of this encounter Progress Notes * Poornima Ribeiro RN - 12/11/2023 1:12 PM CDT Discussed feeding with Mariam Lea, provided her with education on topics including: Non-medical labor coping Starting early with Rooming-in with your baby Expressing breastmilk by hand Reasons why you hand express breastmilk Benefits of early skin to skin contact What to expect after delivery after introduction of solid foods Ways to cope with the challenges of normal labor All questions answered to her satisfaction. She voiced understanding of information presented. Gavepatient booklet. [employer] form completed. Diapers given. 12/11/2023atient was given New OB Education packet, which includes: Verification of letter [facility] offices Dental Referral letter Dental Clinic's list FMLA Request Process Handout [place] [employer] [facility] Transportation Services Sheet Safe Connections Crisis Helpline Resources for your growing family Fyxl-nmb-csmkywd medications that are safe to take during Important Vaccines documented in this encounter H&P Notes * Melodie Duval MD - 12/11/2023 12:55 PM CDT [facility] Fellow Clinic Initial OB Visit Patient: Mariam Lea Referral physician: No ref. provider found Date: 12/11/2023 GA: 30w4d ANGIE: Estimated Date of Delivery: 02/15/24 HPI: Mariam Lea is a 23 year old at 30w4d who presents today for initial OB visit. She reports that she is a self transfer of care to our clinic because she did not like the care she was receiving at her other OBGYN. She reports that she was diagnosed with preeclampsia due to elevated blood pressures and protein in her urine. During her [facility] visit, she did not have any blood pressures greater than 140/90. She did have one blood pressure that I was able to find on an ER visit on 12/09/23 one blood pressure that was 134/93. Otherwise, she reports her has been complicated by Asthma - she has not used her inhaler in a year Hx of PPD Hx of PreE Hx of PPH The patient reports she has occasional headaches that usually resolve with tylenol but will come back. She denies having a headache now but reports she may feel like it is coming on. She is interested in starting additional medications. The patient also reports her anxiety has increased as the has progressed. She is interested in a referral to psychiatry. . Patient Active Problem List Diagnosis Date Noted Supervision of high risk , antepartum (HCC) 12/11/2023 Priority: Not Prioritized - Primary OB: Self SAGAR from in [place] to Fellow - PNL: Rh+/ Antibody neg [...] GBS: - Feeding: - Contraception: - ANFS: Short interval between pregnancies affecting , antepartum ([facility]) 10/11/2017 Priority: Not Prioritized Poor growth affecting management of mother in third trimester ([facility]) 10/11/2017 Priority: Not Prioritized Obstetrical history: OB History Para Term AB Living 6 3 2 1 2 3 SAB IAB Ectopic Multiple Live Births 2 3 # Outcome Date GA Lbr Wilber/2nd Weight Sex Delivery Anes PTL Lv 6 Current 5 Term 02/13/23 38w4d F Vag-Spont GRISELDA 4 SAB 2020 8w0d 3 2017 34w0d 2722 g (6 lb) M Vag-Spont GRISELDA 2 Term 05/2016 39w0d 3260 g (7 lb 3 oz) F Vag-Spont GRISELDA Comments: baby with pyloric stenois? 1 SAB 03/2015 7w0d Medical History: Past Medical History: Diagnosis Date Asthma ([facility]) natalio has not had issues in years Breast disorder 2017 benign tumor removal right breast depression with G2-used meds for 2 years Surgeries: Past Surgical History: Procedure Laterality Date Breast Augmentation Bilateral 2021 Tonsillectomy and Adenoidectomy Allergies: Allergies Allergen Reactions Levofloxacin Rash Ciprofloxacin Other Pt states I can't breath Curent Medications: Current Outpatient Medications: acetaminophen (Tylenol) 500 MG tablet, Take 1 (one) tablet by mouth every 4 hours as needed for Fever or Pain Maximum allowable Acetaminophen amount = 4 Grams (4000 mg) / 24 hours., Disp: , Rfl: Blood Pressure Monitor MISC, Use 1 Units 2 times daily, Disp: 1 Each, Rfl: 0 omeprazole (PriLOSEC) 40 MG capsule, Take 1 (one) capsule by mouth 2 times daily, before breakfast and supper, Disp: , Rfl: Vit-Fe Fumarate-FA ( vitamin) 28-0.8 MG tablet, Take 1 (one) tablet by mouth once daily, Disp: , Rfl: Family History: Family History Problem Relation Name Age of Onset Other - Cardiac Paternal Grandmother Diabetes - Type 2 Paternal Grandmother Other - Cardiac Maternal Grandmother Diabetes - Type 1 Maternal Grandmother Multiple Births Mother Asthma Sister Social History: Social History Smoking status: Never Smokeless tobacco: Never Alcohol use: Not Current* Drug use: Never Sexual activity: Not on file Review of Systems - General: Fever/ Chills no HEENT Rhinorrhea no Sore Throat no CV Chest Pain no Palpitations no Pulm: Shortness of Breath no Persistent cough no Wheezing no GI Nausea no Vomiting no Heartburn no Diarrhea no Constipation no Extr: Edema no Dysuria no Hematuria no Mood: stable, no SI or HI Physical Exam: Vitals: 12/11/23 1310 12/11/23 1342 BP: 129/78 126/84 Pulse: 93 91 Weight: 62.1 kg (137 lb) Height: 1.6 m (5' 3 ) General: Alert, cooperative, no distress Skin: Normal, no rash or abnormalities Heart: Regular rate and rhythm Lungs: Non-labored Abdomen: Soft, nontender, gravid Extremities: Normal, non-tender bilaterally. No LE edema. FH: per US FHT: per US Lab Review: Recent Labs Component Name 12/11/23 1316 12/09/23 1139 PROTEINUA - Negative GLUCOSEUA Negative Negative KETONEUA - Negative Assessment/Plan: 23 year old @ 30w4d Supervision of High Risk - Primary OB: Self SAGAR from in [place] to Fellow - PNL: Rh+/ Antibody neg /RI/HIV NR/SYPH NR/HBV-/HCV-/GBS?/ Varicella - GCCT/trich: neg - Last Pap: patient reports was last year and wnl - Hgb Elec: wnl - HbA1c: 5.6 - Genetic screening: low risk NIPT - Vaccinations: - Tdap: ordered today - Influenza: ordered today - COVID: now - RSV: may offer if between 32-36 weeks from Nov - Mar - Ultrasounds: - Dated by 13w2d US - Anatomy US, completed on 10/01 - Growth: Completed 12/11/23 - UCx: neg - UDS: neg - 1 hr GTT: 130, need 3 hr - 3T labs: - Tdap: ordered today - GBS: assess at 35 weeks - Feeding: - Contraception: considering tubal ligation 2. Preeclampsia/Gestational HTN? - Patient with history of PreE in prior - Patient had one documented mild range blood pressure earlier this week in the [facility] but could not find any other blood pressure to definitively give diagnosis. Patient reports she was told be her other OBGYN she has preeclampsia - Labs (12/05) Plt 189, Cr 0.3, AST/ALT 06/02, Urine P/C 0.77 - Labs (12/08) Plt 203, Cr 0.51, AST/ALT 01/01, Urine P/C 0.09 - 24 hr urine: too low to calculate - Patient does not have headache today but will order reglan and benadryl to help - Continue baby ASA - Patient was educated to keep a blood pressure log and to check blood pressure twice a day. She was told to call or present to the [facility] if she has blood pressure at home greater than 150/100 3. Anxiety and Depression - Referral placed to psychiatry today - No meds - No SI or HI today 4. Mild Intermittent Asthma - Patient has not used inhaler in 1 year 5. Elevated GCT - 1 Hr GCT 130, will need 3 hr, ordered today 6. GBSuria - Patient will need PCN at time of delivery RTC in 2 weeks in low risk clinic D/w Dr. Mukund Henley MD Maternal Medicine Fellow, PGY-5 12/11/2023 Maternal Medicine Attending: I have seen and reviewed Marima Lea who is a 23 year old female at 30w4d with Dr. Henley on 12/11/23. We have discussed her past history and reviewed all pertinent records and recent clinical course. I have evaluated and examined her. I concur with the above findings and assessments. Exam: BP 126/84 Pulse 91 Ht 1.6 m (5' 3 ) Wt 62.1 kg (137 lb) General: Alert and oriented x3, no acute distress Mentation: Normal mentation HEENT: Neck supple without masses, no LAD Cardiovascular: Regular rate and rhythm Lungs: clear to auscultation bilaterally, no wheezes/rhales Abdomen: soft, non-tender, gravid Back: no flank pain, spine normal appearance Extremities: No calf tenderness FHTs present, see u/s documentation My exam concurs with above. I have the following to add to the assessment and plan: 1. Possible hypertensive disorder in 2. Anxiety and depression 3. Elevated GCT (130), 3 hour GTT ordered 4. Asthma, mild intermittent, stable 5. GBSuria this , will need Abx at time of delivery 6. Short interval 7. Possible h/o poor growth in prior -Reports possible diagnosis of mild pre-eclampsia vs gestational hypertension, but we can't find documentation of at least 2 elevated BPs meeting criteria for BPs >140/90. Had urine pcr 0.77 but then was only 0.09 on repeat and a 24 hour urine was too low to calculate. We reviewed the unclear diagnosis at this time, and whether she meets full diagnostic criteria for gestational htn/pre-eclampsi a. BP is in good range today and neg protein on urine dip, although 1+ leukocytes. Would recommend to repeat urine culture, as is pos, this may explain some findings of proteinuria. Will continue to monitor BPs closely, and she is taking these at home and we reviewed BP parameters and sx of severe pre- eclampsia to prompt immediate evaluation in the hospital. Normal size/growth today, normalUA Dopplers and 8 pt BPP. F/u for weekly testing and M visits (due to ambiguity of diagnosis), continue ASA 162 mg, and close surveillance. Follow serial growth. -Referred to Psychiatry. Overall mood stability, not currently on medications. -GTT ordered. Needs urine culture also. Melodie Arevalo MD Technology Intern Maternal Medicine [facility] documented in this encounter Plan of Treatment Upcoming Encounters Date Type Department Care Team (Late st Contact Info) Description 03/23/2024 Hospital Encounter [facility] [address] [place], [place] [id number] Scheduled Orders Name Type Priority Associated Diagnoses Orde r Schedule GTT 3 HR (100G) GESTATIONAL DIAGNOSTIC Lab Routine Supervision of high risk , antepartum (HCC) 1 Occurrences starting 12/11/2023 until 12/05/2024 Scheduled Referrals Name Type Priority Associated Diagnoses Order Schedule Referral to Psychiatry Outpatient Referral Routine Anxiety Ordered: 12/11/2023 documented as of this encounter Visit Diagnoses Diagnosis Supervision of high risk , antepartum (HCC)- Primary Anxiety Anxiety state, unspecified documented in this encounter Care Teams Coach Builder Relationship Specialty Start Date End Date Shana Easton MD [address] [phone] PCP - General Family Medicine 01/09/20 documented as of this encounter
--- OUTSIDE RECORDS SUMMARY | 2024-03-15 14:29 | XMS_ITS | Clinical Summary ---
Author Organization [facility] ([email or web address]) Address [address] [place] [address] Care Team Providers Care Barrel Assembly Inspector Name Role Phone Shana Easton MD Primary Care Provider [phone] Source Comments [facility] ([email or web address]),non-owned Affiliates and Associated Physician Practices is amultiple site organization consisting of ambulatory clinics and hospital sitesin [place], [place], [place] and [place]. This disclosure is being madepursuant to the Care Everywhere program and may not contain all information available regarding this patient. Last updated 17.[facility] ([email or web address]) Allergies Active Allergy Reactions Criticality Noted Date [...] - Primary OB: Self SAGAR from in [place] to Fellow - PNL: Rh+/ Antibody neg [...] risk teen in third trimester 10/11/2017 12/05/2022 Encounters Date Type Department Care Team Description 12/16/2023 1:03 PM CDT - 12/16/2023 11:59 PM CDT Hospital Encounter [facility] MATERNAL/ EVALUATION UNIT [address] [facility] [place] [address] Vijaya Birch MD Discharge Disposition: Home or Self Care 12/16/2023 Travel from Last 3 Months Immunizations Name Administration Dates Next Due INFLUENZA VACCINE, QUADR. (F LUZONE; FLULAVAL; FLUARIX; AFLURIA QUADRIVALENT; 6MO+), 0.5 ML (IIV4) 01/16/2020 INFLUENZA VACCINE, TRIV. (FL UZONE; FLULAVAL; FLUARIX; AFLURIA TRIVALENT; 6MO+), 0.5 ML (IIV3) 12/11/2023 TDAP (7yrs+) 12/11/2023 Family History Medical History Relation Name Comments Diabetes - Type 1 Maternal Grandmother Other - Cardiac Maternal Grandmother Multiple Births Mother Diabetes - Type 2 Paternal Grandmother Other - Cardiac Paternal Grandmother Asthma Sister Relation Name Status Comments Maternal Grandmother Mother Paternal Grandmother Sister Social History Tobacco Use Types Packs/Day Years [...] and heating? Not hard at all 12/11/2023 [facility] of Occupat ional Health - Occupational Stress [...] in a longterm (including now)? No 12/11/2023 [place] Depression Scale Answer Date Recorded [place] Depression Scale Total 0 12/11/2023 The thought [...] st Contact Info) Description 03/23/2024 Hospital Encounter [facility] [address] [place], [place] [id number] Health Maintenance Due Date Last Done Comments PAP SMEAR 1998 PNEUMOCOCCAL VACCINE (1 of 2 - PCV) 2004 HIV SCREENING 2013 HPV VACCINE (1 - 3-dose series) 2013 CHLAMYDIA/GONORRHEA SCREENING 2014 HEPATITIS C SCREENING 09/27/2016 HEPATITIS B VACCINE (1 of 3 - 19+ 3-dose series) 2017 OB-ONE HOUR GLUCOSE 11/09/2023 OB-RHOGAM INJECTION 11/23/2023 COVID-19 VACCINE ( season) 2023 04/06/2021, 09/04/2020, 08/14/2020 OB-GROUP B STREP SCREEN 01/11/2024 DTAP/TDAP/TD VACCINES (2 - Td or Tdap) 12/10/2033 12/11/2023 ZOSTER VACCINE (1 of 2) 2048 DEPRESSION SCREENING Completed 12/11/2023 INFLUENZA VACCINE Completed 12/11/2023, , 12/22/2019, Additional history exists OB-TDAP CURRENT Completed 12/11/2023 HIB VACCINE Aged Out No longer eligi ble based on patient's age to complete this topic MENINGOCOCCAL VACCINE Aged Out No donal kodak eligible based on patient's age to complete this topic Respiratory Syncytial Virus (RSV) Vaccine Pt: or over 60 yrs (No Doses Required) Completed Care Teams Barrel Assembly Inspector Relationship Specialty Start Date End Date Shana Easton MD [address] [place] [address] PCP - General Family Medicine 01/09/20
--- OUTSIDE RECORDS SUMMARY | 2024-03-15 14:29 | XMS_ITS | Encounter Summary ---
Author Organization [facility] Health Address [address] [place] [address] Care Team Providers Care Credit Collections Analyst Name Role Phone Shana Easton MD Primary Care Provider [phone] Encounter Details Date Type Department Care Team (Latest Contact Info) Description 12/10/2023 Travel Social History Tobacco Use Types Packs/Day [...] and heating? Not hard at all 12/11/2023 [facility] [place] of Occupat ional Health - Occupational Stress [...] place to sleep or slept in a nursing home (including now)? No 12/11/2023 [place] Depression Scale Answer Date Recorded [place] Depression Scale Total 0 12/11/2023 The thought [...] st Contact Info) Description 03/23/2024 Hospital Encounter [facility] [address] [facility] [address] [place] [address] documented as of this encounter Visit Diagnoses Not on filedocumented in this encounter Care Teams Credit Collections Analyst Relationship Specialty Start Date End Date Shana Easton MD [address] [place] [address] PCP - General Family Medicine 01/09/20 documented as of this encounter
--- OUTSIDE RECORDS SUMMARY | 2024-03-15 14:29 | XMS_ITS | Encounter Summary ---
Author Organization [facility] Health Address [address] [place] [address] Care Team Providers Care Remodeler Name Role Phone Shana Easton MD Primary Care Provider [phone] Reason for Visit * Reason Comments Non-stress Test Encounter Details Date Type Department Care Team (Latest Contact Info) Description 12/16/2023 1:03 PM CDT - 12/16/2023 11:59 PM CDT Hospital Encounter [facility] MATERNAL/ EVALUATION UNIT [address] [facility] [place] [address] Vijaya Birch MD [address] [facility] [address] [place] [address] Discharge Disposition: Home or Self Care [...] and heating? Not hard at all 12/11/2023 [facility] [place] of Occupat ional Health - Occupational Stress [...] place to sleep or slept in a alf (including now)? No 12/11/2023 [place] Depression Scale Answer Date Recorded [place] Depression Scale Total 0 12/11/2023 The thought [...] Pulse 76 12/16/2023 1:18 PM CDT Temperature - - Respiratory Rate - - Oxygen Saturation - - Inhaled Oxygen Concentration - - Weight - - Height - - Body Mass Index - - documented in this encounter Medications at Time [...] as of this encounter Progress Notes * Suly Muñoz APRN-CNP - 12/16/2023 1:46 PM CDT OUTPATIENT TESTING FORM Maternal- Medicine Outpatient Testing Name: Mariam Lea Date of : 2000 Gestational Age: 31w2d Today's Date: 12/16/2023 MATERNAL OBJECTIVE FINDINGS: , Pulse: 76, , BP: 99/64 NST Indication(s): Other (Comment) (pre e, elevated GCT) OBJECTIVE FINDINGS: Movement: Present Monitoring Mode: External Baseline: 135 BPM Variability: Moderate Decelerations: None Accelerations: Yes Uterine Irritability: No Contractions: Not present INTERPRETATION: I have reviewed the NST strip and the data in this note. My interpretation is reactive and reassuring RECOMMENDATION: Continue testing as previously ordered. ARAMIS Keller documented in this encounter Plan of Treatment Upcoming Encounters Date Type Department Care Team (Late st Contact Info) Description 03/23/2024 Hospital Encounter [facility] [address] [place] [address] documented as of this encounter Visit Diagnoses Not on filedocumented in this encounter Care Teams Remodeler Relationship Specialty Start Date End Date Shana Easton MD [address] [phone] PCP - General Family Medicine 01/09/20 documented as of this encounter
--- OUTSIDE RECORDS SUMMARY | 2024-03-15 14:29 | XMS_ITS | Encounter Summary ---
Author Organization [facility] Address [address] 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, antepartum ([facility]) History of miscarriage, currently ([facility]) Cyst of ovary, unspecified laterality History of breast lump/mass excision 18 weeks gestation of ([facility]) Procedures SONOGRAM - COMPLETE Bolivar Green MD [address] [place] [address] Referral ID Status Reason Start Date Expiration Date Visits Re quested Visits Authorized [id number] Closed 09/18/2022 09/18/2023 1 1 Reason for Visit * Evaluate & Treat (Routine) - Closed Specialty Diagnoses / Procedures Referred By Contac t Referred To Contact Maternal Medicine Diagnoses care for patient with recurrent loss, unspecified trimester ([facility]) History of delivery, currently ([facility]) Current patel with 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 [facility] ?[facility]aternal and Care Center ?PHONE: ??FAX: Pat. Name: ?DIOGENES MONET Pat. No: ?[id number] Study Date: ?? 09/26/2022 ??8:42am , Age: ? 2000, 21 Pregnancies: ?? 5, Para 1122 Height: ? 63 in Weight: ? 107 lb LMP: ?05/19/2022 GA by LMP: ?18w4d GA by US: ? 18w5d ?? ANGIE: 02/22/2023 GA Selected: ??18w4d (LMP) ANGIE: ?02/23/2023 Referring MD: Tal Green MD Assistant Principal: ??Belkys Wood RDMS, RDEMMETT CPT4: ? 89013,56519 BMI: ?18.95 Hist/Ind: ? G1: SAB @ [...] ----- ---- ------- BPD ??4.0 cm 18w0d (91m8d-04v8p) Hadl BPD 26% FL/BPD 0.64 HC ??14.8 cm 17w6d (39m5c-50u0i) Hadl HC ??13% FL/AC ??0.19 AC ??13.8 cm 19w1d (75z3r-66i6b) Hadl AC ??66% HC/AC ??1.07 (1.07 - 1.26) FL ?? 2.6 cm 17w5d (08v4v-74k4q) Hadl FL ??15% CI ? 0.75 (0.70 - 0.86) HL ?? 2.5 cm 17w5d (35z4t-69c7r) Zackery HL ??36% Cere 1.8 cm 17w5d (51j7u-56u5f) Hill Cere12% GA for sonogram 18w5d (87y4r-11v1l) ?? 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 - Blane 2019 AJP: did not find any benefit of 17-OHPC in preventing sPTB ? - PTB < 35.0 weeks (11.0% versus 11.5%) ? - composite index (5.6% versus 5.0%) ? - In Dec-2021 the FDA withdrew approval of 17-OHPC for this indication ? - 17-OHPC to prevent recurrent sPTB is generally not advised by our MFM group ? - In May-2022 [employer] voluntarily pulled [place] off the market ? - Daily intravaginal [...] implicated in IHPS including: ? - IHPS1 (676097) on chromosome 12q ? - IHPS2 (145313) on chromosome 43r95-s52 ? - IHPS3 (222517) on chromosome 72z87-x39 ? - IHPS4 (577016) on chromosome Xq23 ? - IHPS5 (319917) on chromosome 16q24 ? - Multifactorial sex-modified threshold model of inheritance ? - Affected males outnumbering females 4:1 ? - Lopez (196) estimated that the recurrence risk ? - For males born after an affected child 10% ? - For females born after an affected child 2% ? - Maykel 1996 reported varied incidence between [place] population groups ? - White 1.9 per 1,000 live births ? - 1.8 per 1,000 live births ? - Black 0.7 per 1,000 live births ? - 0.6 per 1,000 live births ? - Angelic (2010) performed a population-based study of pyloric stenosis ? - Among 1,999,738 children born in [place] between 5165-0103 ? - Followed up for the first year of life ? - Surgery for pyloric stenosis occurred in 3,362 children ? - 2,741 (81.5%) were boys, resulting in a zdyy-zv-fuuqnx ratio of 4.4:1 ? - Incidence rate [...] present ? - Please notify the baby's Manager Advertising of the above history COMMENTS * Thank you very much for requesting MFM participation in her obstetrical care * Findings were explained & questions were addressed & precautions were given to patient * U/S does not detect all structural & functional lrznmkag-ntido-tyrtyjzes abnormalities * Telemedicine services were performed for this U/S examination & MFM consultation ? - Patient's identity was confirmed at the [facility] office ? - Appropriateness of the telehealth consult was confirmed ? - Informed consent for telemedicine services was obtained & scanned into EMR ? - Modality was secure interactive audio-video session using Epic/Zoom ? - Patient site location was our [facility] & nurse presenter was Vannessa Mosquera ? - Distant site provider was Jin Ho MD & location was home office ? 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
--- OUTSIDE RECORDS SUMMARY | 2024-03-15 14:29 | XMS_ITS | Encounter Summary ---
Author Organization [facility] Address [address] [place] [address] Care Team Providers Care Surveillance Supervisor Name Role Phone Shana Easton MD Primary Care Provider [phone] Reason for Referral * (Routine) - Pending Review Specialty Diagnoses / Procedures Referred By Contac t Referred To Contact Procedures Follow up with provider Jil Lang MD [address] [address] Referral ID Status Reason Start Date Expiration Date V isits Requested Visits Authorized [id number] Pending Review 12/09/2023 12/08/2024 1 1 Reason for Visit * Reason Comments Headache Encounter Details Date Type Department Care Team (Latest Contact Info) Description 12/09/2023 10:46 AM CDT - 12/09/2023 1:10 PM CDT Hospital Encounter [facility] [address] [place] [address] Gloria Tompkins MD [address] [place] [address] Jil Lang MD [address] [facility] [address] [place] [address] Discharge Disposition: Home or Self Care Social [...] and heating? Not hard at all 12/09/2023 [facility] [place] [facility] - Occupational Stress [...] place to sleep or slept in a usp (including now)? No 12/09/2023 Estimated Date of Delivery Comme nts Yes 02/15/2024 Based on Patient Reported Sex and Gender Information Value Date Recorded Sex Assigned at Female 09/17/2022 8:47 AM CDT Gender Identity Female 09/17/2022 8:47 AM CDT Sexual Orientation Not on file documented as of this encounter Last Filed Vital Signs Vital Sign Reading Time Taken Comments Blood Pressure 118/80 12/09/2023 12:54 PM CDT Pulse - - Temperature 36.8 ??C (98.3 ??F) 12/09/2023 10:57 AM C DT Respiratory Rate 18 12/09/2023 10:57 AM CDT Oxygen Saturation 97% 12/09/2023 10:57 AM CDT Inhaled Oxygen Concentration - - Weight 61.2 kg (135 lb) 12/09/2023 10:57 AM CDT Height 160 cm (5' 3 ) 12/09/2023 10:57 AM CDT Body Mass Index 23.91 12/09/2023 10:57 AM CDT documented in this encounter Discharge Instructions * Discharge Instructions* Nydia Escobedo, RN - 12/09/2023 12:58 PM CDT 24-Hour Urine Collection HOW TO COMPLETE: When you get up in the morning on the day you do this test, pee (urinate) in the toilet and flush. Make a note of the time. This will be your start time on the day of collection and the end time on the next morning. From then on, save all your pee (urine) in the plastic jug that was given to you. You should stop collecting your pee 24 hours after you started. If the plastic jug that is given to you already has liquid in it, that is okay. Do not throw out the liquid or rinse out the jug. Some tests need the liquid to be added to your pee. Keep your plastic jug cool (in an ice chest or the refrigerator) during the test. When the 24 hours is over, bring your plastic jug to the clinic lab. Keep the jug cool (in an ice chest) while you are bringing it to the lab. Document Released: 06/07/2009 Document Revised: 06/02/2012 Document Reviewed: 06/07/2009 ExitCare?? Patient Information ??2015 [employer]. This information is not intended to replace advice given to you by your health care provider. Make sure you discuss any questions you have with your health care provider. UNDELIVERED PATIENT DISCHARGE INSTRUCTIONS CALL YOUR DOCTOR (SEE NUMBER BELOW) If you are less than 37 weeks and have move than 5 contractions an hour. Blurring of vision or spots before your eyes. Ruptured membranes or leakage of vaginal fluid. May be a steady trickle or large gush May be clear, yellow, pink or green Decreased movement--if your baby has stopped moving or ismoving less than it normally does. Do Kick Counts as instructed. Vaginal bleeding--bright red bleeding and/or clots needs medical care immediately. Any temperature above 100 degrees. Headache Any burning or painful urination. Increased swelling in your face, hands, or feet. Stomach pains, cramps, nausea,or diarrhea. Important Telephone Number: [facility]: [phone] documented in this encounter Medications at Time [...] once daily documented as of this encounter H&P Notes * Melodie Henley MD - 12/09/2023 10:55 AM CDT PGY1 Obstetric H&P Note 12/09/2023, 12:39 PM CC: assessment for pre-eclampsia HPI: 23 year old at 30w2d gestation Datinwk ultrasound Estimated Date of Delivery: 02/15/24 care: [facility] Dr. Dumont in [facility] Patient Active Problem List Diagnosis Date Noted Short interval between pregnancies affecting , antepartum (HCC) 10/11/2017 Priority: Not Prioritized Poor growth affecting management of mother in third trimester ([facility]) 10/11/2017 Priority: Not Prioritized Patient presents from outside clinic, recommended for repeat pre-eclampsia workup. [facility], had mild range blood pressures (140s/90s) with elevated urine P/C. Since Saturday, she has had an ongoing headache and occasional vision changes with blurry vision and floaters. Also endorses RUQ pain but more associated with movement/ movement. Denies chest pain or shortness of breath. negative Ctx. negative LOF. negative VB. positive FM. Review of Symptoms: Positive for: see HPI Denies: fevers, chills, chest pain, shortness of breath, nausea, vomiting, diarrhea, constipation, dysuria, urinary frequency, changes in vaginal discharge Obstetrical History: OB History Para Term AB Living 6 [...] with pyloric stenois? 1 SAB 03/2015 7w0d Gynecologic History: History of abnormal pap smear: denies History of procedure on cervix: denies STI History: Denies gonorrhea, chlamydia, trichomonas, herpes, HIV, syphilis Medical History: Past Medical History: Diagnosis Date Asthma (HCC) natalio has not had issues in years Breast disorder 2017 benign tumor removal right breast depression with G2-used meds for 2 years She denies history of diabetes or bleeding disorders. Asthma- not on inhaler, last used albuterol a year ago Psych History: Depression: No Anxiety: Yes- not on medications, mood stable Bipolar disorder: No Schizophrenia: No Surgeries: Past Surgical History: Procedure Laterality Date Breast Augmentation Bilateral 2021 Tonsillectomy and Adenoidectomy Current Medications: Prior to Admission medications Medication Sig Start Date End Date Taking? Authorizing Provider omeprazole (PriLOSEC) 40 MG capsule Take 1 (one) capsule by mouth 2 times daily, before breakfast and supper Provider, MD Markus Allergies: Allergies Allergen Reactions Levofloxacin Rash Ciprofloxacin Other Pt states I can't breath Social History: Social History Smoking status: Never Smokeless tobacco: Never Alcohol use: Not Current* Drug use: Never Sexual activity: Not on file Family History: Family History Problem Relation Name Age of Onset Other - Cardiac Paternal Grandmother Diabetes - Type 2 Paternal Grandmother Other - Cardiac Maternal Grandmother Diabetes - Type 1 Maternal Grandmother Multiple Births Mother Asthma Sister No history of infants born with defects. No history of family members with bleeding disorders or history of blood clots. No history of ovarian, or uterine cancer. + breast cancer in maternal grandmother dx at 70 OBJECTIVE Patient Vitals for the past 24 hrs: Temp Resp BP 12/09/23 1151 -- -- 114/71 12/09/23 1121 -- -- 118/81 12/09/23 1057 98.3 ??F (36.8 ??C) 18 -- 12/09/23 1056 -- -- 118/78 Height: 160 cm (5' 3 ) Wt Readings from Last 3 Encounters: 12/09/23 61.2 kg (135 lb) 09/26/22 50.7 kg (111 lb 12.8 oz) 01/09/20 45.4 kg (100 lb) Body mass index is 23.91 kg/m??. Physical Exam General: no acute distress HEENT: moist mucous membranes Heart: regular rate Lungs: normal respiratory effort on room air Abdomen: gravid, soft, non-tender, tender on palpation of lower RUQ, where baby is kicking her Extremities: non-tender bilaterally, no edema bilaterally Point of care ultrasound Presentation: cephalic Placenta: anterior Amniotic fluid index: 9.12 cm Assessment/ Non-Stress Test Baseline: 130 beats/minute moderate variability Reactive Contractions: none Decelerations: none Current Lab Review: Hospital Encounter on 12/09/23 CBC W AUTO DIFFERENTIAL Result Value Ref Range WBC 9.5 4.0 - 10.7 x10E9/L RBC Count 4.32 3.90 - 5.20 x10E12/L Hemoglobin 11.2 (L) 11.9 - 15.8 g/dL Hematocrit 35.9 34.8 - 46.1 % MCV 83.1 80.0 - 98.0 fL MCH 25.9 (L) 26.7 - 33.6 pg MCHC 31.2 (L) 31.7 - 36.3 g/dL RDW-CV 13.7 11.3 - 14.8 % Platelet Count 203 150 - 420 x10E9/L MPV 10.9 7.8 - 11.4 fL Neutrophil % 77.0 (H) 41.0 - 74.0 % Lymphocyte % 13.3 (L) 17.0 - 47.0 % Monocyte % 8.1 3.0 - 11.0 % Eosinophil % 0.3 0.0 - 7.0 % Basophil % 0.3 0.0 - 1.6 % Immature Granulocytes % 1.0 0.0 - 1.0 % Neutrophil Absolute 7.34 1.60 - 7.50 x10E9/L Lymphocyte Absolute 1.27 1.00 - 4.40 x10E9/L Monocyte Absolute 0.77 0.15 - 1.00 x10E9/L Eosinophil Absolute 0.03 0.00 - 0.60 x10E9/L Basophil Absolute 0.03 0.00 - 0.13 x10E9/L COMPREHENSIVE METABOLIC PANEL Result Value Ref Range Glucose 78 70 - 105 mg/dL Sodium 138 136 - 145 mmol/L Potassium 4.0 3.5 - 5.1 mmol/L Chloride 107 98 - 107 mmol/L CO2 23 22 - 29 mmol/L Calcium 8.9 8.4 - 10.4 mg/dL Anion Gap 8 6 - 16 mmol/L BUN 5 (L) 5.3 - 18.7 mg/dL Creatinine 0.51 (L) 0.57 - 1.11 mg/dL Alkaline Phosphatase 82 40 - 150 U/L ALT 10 0 - 55 U/L AST 10 5 - 34 U/L Protein Total 6.5 6.4 - 8.3 gm/dL Albumin 3.0 (L) 3.4 - 5.0 gm/dL Bilirubin Total 0.4 0.2 - 1.2 mg/dL eGFR by CKD-EPI >90 >=90 mL/min/1.73 m2 URINALYSIS REFLEX MICROSCOPIC REFLEX CULTURE Specimen: Urine Clean Catch Result Value Ref Range Color UA Yellow Straw, Yellow Clarity UA Slt Cloudy (Abnormal) Clear Glucose UA Negative Negative Bilirubin UA Negative Negative Ketone UA Negative Negative Specific [place] UA 1.014 1.005 - 1.030 Blood UA Negative Negative pH UA 6.0 5.0 - 8.0 pH Protein UA Negative Negative Urobilinogen UA 4.0 (Abnormal) Negative mg/dL Nitrite UA Negative Negative Leukocyte UA 2+ (Abnormal) Negative Urine Microscopy Urine microscopy to follow Reflex Status Culture to follow PROTEIN CREATININE RATIO URINE RANDOM PNL Result Value Ref Range Protein Urine 7.1 <11.9 mg/dL Creatinine Urine 80.19 mg/dL Protein/Creatinine Ratio Urine 0.09 URINE MICROSCOPIC ONLY REFLEX TO CULTURE Specimen: Urine Clean Catch Result Value Ref Range Reflex Status Culture to follow RBC UA 0-2 0 - 5 # /hpf WBC UA 11-20 (Abnormal) 0 - 5 # /hpf Bacteria UA Trace (Abnormal) None Seen Squamous Epithelial Cells 11-20 (Abnormal) 0 - 5 /hpf Mucus UA 3+ /LPF Assessment/Plan: 23 year old at 30w2d gestation who presented with headache, vision changes, and RUQ pain. Pre-eclampsia without SF Headache Hx Pre-eclampsia - Headache ongoing since Saturday, diffuse, has blurry vision occasionally - R abdominal pain reproducible on palpation, correlated with movement likely MSK - Hx pre-eclampsia in G5 per patient - Bps in triage normotensive (118/78) - Labs (12/05) Plt 189, Cr 0.3, AST/ALT 15/, Urine P/C 0.77 - Repeat labs today (12/08) Plt 203, Cr 0.51, AST/ALT /, Urine P/C 0.09 - Headache improved with Tylenol 1g administered in triage Plan - Given supplies for 24 hour urine collection to bring to clinic - Patient does not meet criteria for pre-eclampsia at this time per our records - Given strict return precautions for triage Hx Hemorrhage - G5 with PPH, patient cannot remember EBL - T&C x2 at bedside Depression Anxiety Hx of Depression - Hx PPD in G5 - Not on medications, mood stable - Denies SI/HI GBSuria - Penicillin at time of delivery - Patient has tolerated penicillin in prior delivery Mild Intermittent Asthma - Asymptomatic - Last used inhaler 1 year ago Elevated GCT - GCT 130, unknown GTT - POC glucose 78 Supervision of - PNL: A+/I/-/-, NR - Datinwk - GCT: 130, has not done GTT - GBS: GBSuria - Latest growth: unknown wellbeing: reassuring Dispo: D/c home in stable condition Follow Up: [place] [facility] on 12/[address] Causey and Lory. Stacy Valverde MD PGY-1 12/09/2023 12:39 PM MFM Fellow Addendum: In summary, Mariam Lea is our 23 year old at 30w2d who presented fro evaluation of preeclampsia. The patient was seen by her primary OBGYN Dr. Dumont in [place] who had documented elevated blood pressures and an elevated UPCR. The patient reported that she had elevated blood pressures at home and come in for evaluation today. PIH labs today wnl. UPCR on admission today 0.09. She originally presented with a headache that resolved with tylenol during the [facility] stay. Otherwise, denies any other signs or symptoms of preeclampsia. BP 118/80. Will plan for DC home today with follow up in fellows clinic. 24 hr urine protein collection sent with patient. PreE precautions given. Patient was also given a script for a BP cuff and educated to check her Bps twice a day at home. Melodie Henley MD [facility] Obstetrics and Gynecology, PGY-5 documented in this encounter Procedure Notes * Melodie Henley MD - 12/09/2023 1:00 PM CDTAssociated Order(s): NONSTRESS TEST Name: Mariam Lea Date of : 2000 Today's Date: 12/09/2023 30w2d NST RESULTS (BAZZI) OBJECTIVE FINDINGS Temp: 98.3 ??F (36.8 ??C), , Resp: 18, BP: 118/80 NST Indication(s): Pre-eclampsia Uterine Irritability: No Contractions: Not present OBJECTIVE FINDINGS Movement: Present Monitoring Mode: External Baseline: 125 BPM Variability: Moderate Decelerations: None Accelerations: Yes OTHER INFORMATION Nydia Escobedo RN Non-Stress Test [facility] Patient Name: Mariam Lea LMP: No LMP recorded (lmp unknown). Patient is . Gestational Age: 30w2d as of 12/09/2023 Estimated Date of Delivery: 02/15/24 Indications: Pre-Eclampsia NST date: 12/09/2023 NST duration: >20 mins Interpretation: Baseline: 130 beats/minute moderate variability Reactive Contractions: none Decelerations: none Impression and Plan: FWB reassuring, continue monitoring as scheduled. Stacy Valverde MD 12/09/2023 4:43 PM MFM Fellow Addendum: I agree with the above documentation. Melodie Henley MD [facility] Obstetrics and Gynecology, PGY-5 Associated attestation - Jil Lang MD - 01/01/2024 10:28 AM CDT I have reviewed the tracing and concur with the resident's description and interpretation. Jil Lang MD MPH [facility] STAFF documented in this encounter Plan of Treatment Upcoming Encounters Date Type Department Care Team (Late st Contact Info) Description 03/23/[address] [facility] [address] [place] [address] documented as of this encounter Procedures Procedure Name Priority Date/Time Associated Diagnosis Comments IMAGING/RADIOLOGY/XRAY RESULTS ORDER 12/11/2023 3:33 AM CDT NONSTRESS TEST Routine 12/09/2023 1:00 PM CDT URINE MICROSCOPIC ONLY REFLEX TO CULTURE Routine 12/09/2023 11:39 AM CDT Poor growth affecting management of mother in third trimester, single or unspecified fetus (HCC) URINALYSIS REFLEX MICROSCOPIC REFLEX CULTURE STAT 12/09/2023 11:39 AM CDT Poor growth affecting management of mother in third trimester, single or unspecified fetus (HCC) CULTURE URINE Routine 12/09/2023 11:39 AM CDT Poor growth affecting management of mother in third trimester, single or unspecified fetus (HCC) CBC W AUTO DIFFERENTIAL STAT 12/09/2023 11:39 AM CDT Poor growth affecting management of mother in third trimester, single or unspecified fetus (HCC) COMPREHENSIVE METABOLIC PANEL STAT 12/09/2023 11:39 AM CDT Poor growth affecting management of mother in third trimester, single or unspecified fetus (HCC) PROTEIN CREATININE RATIO URINE RANDOM PNL STAT 12/09/2023 11:39 AM CDT Poor growth affecting management of mother in third trimester, single or unspecified fetus (HCC) documented in this encounter Results * IMAGING RADIOLOGY XRAY RESULTS ORDER (12/11/2023 3:33 AM CDT) Anatomical Region Laterality Modality Other Narrative 12/11/2023 3:33 AM CDT Ordered by an unspecified provider. Scanned Document IMAGING * PROTEIN URINE TIMED QUANTITATIVE (12/10/2023 1:25 PM CDT) Volume 24 Hour Urine 1,600 mL 12/10/2023 1:[address] [facility] Collection Time Hours 24 hrs 12/10/2023 1:[address] [facility] Protein 24 Hour Urine 12/10/2023 1:[address] [facility] Comment:Unable to calculate due to limited levels of measurable protein. Protein Urine <6.8 <11.9 mg/dL 12/10/2023 1:[address] [facility] Urine TIMED URINE SPECIMEN / Unknown Timed Urine Volume Measurement / Unknown 12/10/2023 1:25 PM CDT 12/10/2023 1:31 PM CDT Jil Lang MD LAB - URINE CAMELID FIBER SORTER RY ORDERABLES Performing Organization Address City/State/[facility] Co de Phone Number [facility] [address] [place] [address] * NONSTRESS TEST (12/09/2023 1:00 PM CDT) Narrative Jil Lang MD - 12/09/2023 1:00 PM CDT Melodie Henley MD ? 12/09/2023 ??5:09 PM Name: ??Mariam Lea Date of : ??2000 Today's Date: ??12/09/2023 30w2d ?NST RESULTS (BAZZI) OBJECTIVE FINDINGS Temp: 98.3 ??F (36.8 ??C), ??, Resp: 18, BP: 118/80 NST Indication(s): Pre-eclampsia Uterine Irritability: No Contractions: Not present OBJECTIVE FINDINGS Movement: Present Monitoring Mode: External Baseline: 125 BPM Variability: Moderate Decelerations: None Accelerations: Yes OTHER INFORMATION Nydia Escobedo RN Non-Stress Test [facility] Patient Name: Mariam Lea LMP: No LMP recorded (lmp unknown). Patient [...] Gloria Tompkins MD OB GYNE ORDERABLES * CULTURE URINE (12/09/2023 11:39 AM CDT) Pathologist [facility] Culture Urine 50,000-100,000 CFU/mL urogenital marcos BRENDA 12/11/2023 12:54 AM CDT [facility] MICRO[facility]OLOGY Urine URINE SPECIMEN OBTAINED BY CLEAN CATCH PROCEDURE / Unknown Collection / Unknown 12/09/2023 11:39 AM CDT 12/09/2023 11:49 AM CDT Jil Lang MD LAB - MICROBIOLOGY ORDERABLES [facility] MICRO[facility]OLOG[facility] [address] [place] [address], [facility] [phone] * (ABNORMAL) URINE MICROSCOPIC ONLY REFLEX TO CULTURE (12/09/2023 11:39 AM CDT) Reflex Status Culture to follow 12/09/2023 12:[address] [facility] RBC UA 0-2 0 - 5 # /hpf 12/09/2023 12:[address] [facility] WBC UA 11-20(A) 0 - 5 # /hpf 12/09/2023 12:[address] [facility] Bacteria UA Trace(A) None Seen 12/09/2023 12:[address] [facility] Squamous Epithelial Cells 11-20(A) 0 - 5 /hpf 12/09/2023 12:[address] [facility] Mucus UA 3+ /LPF 12/09/2023 12:[address] [facility] Urine URINE SPECIMEN OBTAINED BY CLEAN CATCH PROCEDURE / Unknown Collection / Unknown 12/09/2023 11:39 AM CDT 12/09/2023 11:49 AM CDT [address] [facility] - 12/09/2023 12:05 PM CDT Jil Lang MD LAB - URINALYSIS OR DERABLES Performing Organization Address [facility] Co de Phone Number [facility] [address] [place] [phone] * PROTEIN CREATININE RATIO URINE RANDOM PNL (12/09/2023 11:39 AM CDT) Protein Urine 7.1 <11.9 mg/dL 12/09/2023 12:[address] [facility] Creatinine Urine 80.19 mg/dL 12/09/2023 12:[address] [facility] Protein/Creatin ine Ratio Urine 0.09 12/09/2023 12:[address] [facility] Urine URINE SPECIMEN OBTAINED BY CLEAN CATCH PROCEDURE / Unknown Collection / Unknown 12/09/2023 11:39 AM CDT 12/09/2023 11:49 AM CDT Jil Lang MD LAB - URINE CAMELID FIBER SORTER RY ORDERABLES Performing Organization Address [facility] Co de Phone Number [facility] [address] [place] [phone] * (ABNORMAL) URINALYSIS REFLEX MICROSCOPIC REFLEX CULTURE (12/09/2023 11:39 AM CDT) Color UA Yellow Straw, Yellow 12/09/2023 12:[address] [facility] Clarity UA Slt Cloudy(A) Clear 12/09/2023 12:[address] [facility] Glucose UA Negative Negative 12/09/2023 12:[address] [facility] Bilirubin UA Negative Negative 12/09/2023 12:[address] [facility] Ketone UA Negative Negative 12/09/2023 12:[address] [facility] Specific [place] UA 1.014 1.005 - 1.030 12/09/2023 12:[address] [facility] Blood UA Negative Negative 12/09/2023 12:[address] [facility] pH UA 6.0 5.0 - 8.0 pH 12/09/2023 12:[address] [facility] Protein UA Negative Negative 12/09/2023 12:[address] [facility] Urobilinogen UA 4.0(A) Negative mg/dL 12/09/2023 12:[address] [facility] Nitrite UA Negative Negative 12/09/2023 12:[address] [facility] Leukocyte UA 2+(A) Negative 12/09/2023 12:[address] [facility] Urine Microscopy Urine microscopy to follow 12/09/2023 12:03 PM [facility] Reflex Status Culture to follow 12/09/2023 12:03 PM [facility] Urine URINE SPECIMEN OBTAINED BY CLEAN CATCH PROCEDURE / Unknown Collection / Unknown 12/09/2023 11:39 AM CDT 12/09/2023 11:49 AM CDT N[address] [facility] - 12/09/2023 12:03 PM CDT Ascorbic Acid can cause false negative urine strip tests for blood, glucose, nitrite, and bilirubin. Jil Lang MD LAB - URINALYSIS OR DERABLES [facility] [address] [place] [address] * (ABNORMAL) COMPREHENSIVE METABOLIC PANEL (12/09/2023 11:39 AM CDT) Glucose 78 70 - 105 mg/dL 12/09/2023 12:21 PM [facility] Sodium 138 136 - 145 mmol/L 12/09/2023 12:21 PM [facility] Potassium 4.0 3.5 - 5.1 mmol/L 12/09/2023 12:21 PM [facility] Chloride 107 98 - 107 mmol/L 12/09/2023 12:21 PM [facility] CO2 23 22 - 29 mmol/L 12/09/2023 12:21 PM [facility] Calcium 8.9 8.4 - 10.4 mg/dL 12/09/2023 12:21 PM [facility] Anion Gap 8 6 - 16 mmol/L 12/09/2023 12:21 PM [facility] BUN 5(L) 5.3 - 18.7 mg/dL 12/09/2023 12:21 PM [facility] Creatinine 0.51(L) 0.57 - 1.11 mg/dL 12/09/2023 12:21 PM [facility] Alkaline Phosphatase 82 40 - 150 U/L 12/09/2023 12:21 PM [facility] ALT 10 0 - 55 U/L 12/09/2023 12:21 PM [facility] AST 10 5 - 34 U/L 12/09/2023 12:21 PM [facility] Protein Total 6.5 6.4 - 8.3 gm/dL 12/09/2023 12:21 PM [facility] Albumin 3.0(L) 3.4 - 5.0 gm/dL 12/09/2023 12:21 PM [facility] Bilirubin Total 0.4 0.2 - 1.2 mg/dL 12/09/2023 12:21 PM [facility] eGFR by CKD-EPI >90 >=90 mL/min/1.7 3 m2 12/09/2023 12:21 PM [facility] Blood BLOOD SPECIMEN / Unknown Venipuncture / Unknown 12/09/2023 11:39 AM CDT 12/09/2023 11:48 AM CDT Jil Lang MD LAB - CHEMISTRY ORD ERABLES [facility] [address] [place] [address] * (ABNORMAL) CBC W AUTO DIFFERENTIAL (12/09/2023 11:39 AM CDT) [facility] WBC 9.5 4.0 - 10.7 x10E9/L 12/09/2023 12:[address] [facility] RBC Count 4.32 3.90 - 5.20 x10E12/L 12/09/2023 12:[address] [facility] Hemoglobin 11.2(L) 11.9 - 15.8 g/dL 12/09/2023 12:[address] [facility] Hematocrit 35.9 34.8 - 46.1 % 12/09/2023 12:[address] [facility] MCV 83.1 80.0 - 98.0 fL 12/09/2023 12:[address] [facility] MCH 25.9(L) 26.7 - 33.6 pg 12/09/2023 12:[address] [facility] MCHC 31.2(L) 31.7 - 36.3 g/dL 12/09/2023 12:[address] [facility] RDW-CV 13.7 11.3 - 14.8 % 12/09/2023 12:[address] [facility] Platelet Count 203 150 - 420 x10E9/L 12/09/2023 12:[address] [facility] MPV 10.9 7.8 - 11.4 fL 12/09/2023 12:[address] [facility] Neutrophil % 77.0(H) 41.0 - 74.0 % 12/09/2023 12:[address] [facility] Lymphocyte % 13.3(L) 17.0 - 47.0 % 12/09/2023 12:[address] [facility] Monocyte % 8.1 3.0 - 11.0 % 12/09/2023 12:[address] [facility] Eosinophil % 0.3 0.0 - 7.0 % 12/09/2023 12:[address] [facility] Basophil % 0.3 0.0 - 1.6 % 12/09/2023 12:[address] [facility] Immature Granulocytes % 1.0 0.0 - 1.0 % 12/09/2023 12:[address] [facility] Neutrophil Absolute 7.34 1.60 - 7.50 x10E9/L 12/09/2023 12:[address] [facility] Lymphocyte Absolute 1.27 1.00 - 4.40 x10E9/L 12/09/2023 12:[address] [facility] Monocyte Absolute 0.77 0.15 - 1.00 x10E9/L 12/09/2023 12:[address] [facility] Eosinophil Absolute 0.03 0.00 - 0.60 x10E9/L 12/09/2023 12:[address] [facility] Basophil Absolute 0.03 0.00 - 0.13 x10E9/L 12/09/2023 12:[address] [facility] Blood BLOOD SPECIMEN / Unknown Venipuncture / Unknown 12/09/2023 11:39 AM CDT 12/09/2023 11:49 AM CDT Jil Lang MD LAB - HEMATOLOGY OR DERABLES Performing Organization Address City/State/[facility] Co de Phone Number [facility] [address] [place] [address] documented in this encounter Visit Diagnoses Diagnosis Short interval between pregnancies affecting , antepartum (HCC)- Primary Short interval between pregnancies affecting , antepartum (HCC) Poor growth affecting management of mother in third trimester, single or unspecified fetus (HCC) documented in this encounter Administered Medications Inactive Administered Medications - up to 3 most recent administrations Medication Order MAR Action Action Date Dose Rate Site acetaminophen (Tylenol) tablet 1,000 mg 1,000 mg, Oral, EVERY 6 HOURS PRN, Moderate Pain, Starting on Sat12/09/23 at 1111, Until Sat12/09/23 at 1415, Patient preference for lesser PRN pain meds may be honored when the patient requests a less strong medication, a lower dose, or a less intrusive route of administration when the lesser drug, dose and route have been ordered for the patient. This patient request must be documented in the MAR. If both oral and IV options are ordered for the same pain severity, give oral first unless patient cannot tolerate oral intake $ Given 12/09/2023 11:13 AM CDT 1,000 mg documented in this encounter Active and Recently Administered Medications Times are shown in CDT. PRN Medication Order 12/07/2023 12/08/2023 12/09/2023 acetaminophen (Tylenol) tablet 1,000 mg 1,000 mg, Oral, EVERY 6 HOURS PRN, Moderate Pain, Starting on 12/09/23 at 1111, Until Sat12/09/23 at 1415, Patient preference for lesser PRN pain meds may be honored when the patient requests a less strong medication, a lower dose, or a less intrusive route of administration when the lesser drug, dose and route have been ordered for the patient. This patient request must be documented in the MAR. If both oral and IV options are ordered for the same pain severity, give oral first unless patient cannot tolerate oral intake 1113 ($ Given - Prov ider: Nydia Escobedo RN) documented in this encounter Care Teams Surveillance Supervisor Relationship Specialty Start Date End Date Shana Easton MD [address] [address] PCP - General Family Medicine 01/09/20 documented as of this encounter
--- OUTSIDE RECORDS SUMMARY | 2024-03-15 14:29 | XMS_ITS | Encounter Summary ---
Author Organization [facility] Address [address] [facility] [place] [address] Care Team Providers Care Pipe Foreman Name Role Phone Shana Easton MD Primary Care Provider [phone] Reason for Visit * Reason Onset Date Comments Appointment 08/27/2022 LM to C/S appt Encounter Details Date Type Department Care Team (Late st Contact Info) Description 08/27/2022 Telephone [facility] Maternal & Care [address] [place] [address] Regine Snowden Appointment (LM to C/S appt) Social History Tobacco Use Types Packs/Day Years Used Date Smoking Tobacco: Never Smokeless Tobacco: Never Sex and Gender Information Value Date Recorded Sex Assigned at Female 09/17/2022 8:47 AM CDT Gender Identity Female 09/17/2022 8:47 AM CDT Sexual Orientation Not on file documented as of this encounter Plan of Treatment Upcoming Encounters Date Type Department Care Team (Late st Contact Info) Description 03/23/2024 Hospital Encounter [facility] [address] [place], [place] [id number] documented as of this encounter Visit Diagnoses Not on filedocumented in this encounter Care Teams Pipe Foreman Relationship Specialty Start Date End Date Shana Easton MD [address] [place] [address] PCP - General Family Medicine 01/09/20 documented as of this encounter
--- OUTSIDE RECORDS SUMMARY | 2024-03-15 14:29 | XMS_ITS | Encounter Summary ---
Author Organization [facility] Address [address] [facility] [place] [address] Care Team Providers Care Director Of Psychiatry Name Role Phone Shana Easton MD Primary Care Provider [phone] Reason for Visit * Reason Comments Ultrasound Encounter Details Date Type Department Care Team (Latest Contact Info) Description 12/11/2023 12:00 PM CDT - 12/11/2023 12:02 PM CDT Hospital Encounter [facility] MATERNAL/ EVALUATION UNIT [address] [facility] [place] [address] Zachery Alfred MD [address] [facility] [address] [place] [address] Discharge Disposition: Home or Self Care Social [...] and heating? Not hard at all 12/11/2023 [facility] [place] of Occupat ional Health - Occupational Stress [...] place to sleep or slept in a correction (including now)? No 12/11/2023 [place] Depression Scale Answer Date Recorded [place] Depression Scale Total 0 12/11/2023 The thought [...] st Contact Info) Description 03/23/2024 Hospital Encounter [facility] [address] [place] [address] documented as of this encounter Procedures Procedure Name Priority Date/Time Associated Diagnosis Comments URINALYSIS - POCT (IP) BEAKER INTERFACE Routine 12/11/2023 1:16 PM CDT SONOGRAM - COMPLETE Routine 12/11/2023 1 2:16 PM CDT documented in this encounter Results * (ABNORMAL) URINALYSIS - POCT (IP) BEAKER INTERFACE (12/11/2023 1:16 PM CDT) Color UA POCT Yellow Straw, Yellow, Dark Yellow, Light Yellow 12/11/2023 1:18 PM CDT [facility] Clarity UA POCT Clear Clear 4 1:18 PM CDT [facility] Specific [place] UA POCT 1.010 1.005 - 1.030 12/11/2023 1:18 PM CDT [facility] pH UA POCT 6.0 5.0 - 8.0 pH 12/11/2023 1:18 PM CDT [facility] Protein UA POCT Negative Negative 4 1:18 PM CDT [facility] Blood UA POCT Negative Negative 12/11/2023 1:18 PM CDT [facility] Leukocyte UA POCT 1+(A) Negative 12/11/2023 1:18 PM CDT [facility] Nitrite UA POCT Negative Negative 4 1:18 PM CDT [facility] Glucose UA POCT Negative Negative 4 1:18 PM CDT [facility] Ketone UA POCT Negative Negative 12/11/2023 1:18 PM CDT [facility] Bilirubin UA POCT Negative Negative 12/11/2023 1:18 PM CDT [facility] Urobilinogen UA POCT 0.2 0.1 - 1.0 EU/dL 12/11/2023 1:18 PM CDT [facility] Urine URINE / Unknown 12/11/2023 1 :16 PM CDT 12/11/2023 1:18 PM CDT Zachery Alfred MD LAB - POINT OF CARE ORDERABLES Performing Organization Address City/State/[facility] Co de Phone Number [facility] [address] [place] [phone] * SONOGRAM - COMPLETE (12/11/2023 12:16 PM CDT) Anatomical Region Laterality Modality Other 12/11/2023 12:1 6 PM CDT Narrative 12/11/2023 1:24 PM CDT ?[facility] ? - [place] ?Maternal and Care Center ?PHONE: ??FAX: Pat. Name: ?DIOGENES MONET Pat. No: ?[id number] Study Date: ?? 12/11/2023 ??12:16pm , Age: ? 2000, 23 Pregnancies: ?? 6, Para 3, Ab 2 Height: ? 63 in Weight: ? 135 lb LMP: ?Unknown GA by US: ? 29w6d ?? ANGIE: 02/20/2024 GA Selected: ??30w4d (From Known E) ANGIE: ?02/15/2024 Referring MD: MD Benita, [facility] Med Peds: ??Eldina Omerspahic, RDMS CPT4: ? 50413,19843,20936 BMI: ?23.91 Hist/Ind: ? SAGAR ?PreE w/o SF ?Short interval ?Elevated GCT- uknown GTT results MEASUREMENTS & AGE ? GROWTH EVALUATION Measurement ??GA ? Range ? Srce %for GA Ratios ----- ---- ------- BPD ??7.6 cm 30w2d (48c6e-90g8e) Hadl BPD 29% FL/BPD 0.74 (0.71 - 0.87) HC ??28.4 cm 31w1d (02q3c-75p9k) Hadl HC ??29% FL/AC ??0.21 (0.20 - 0.24) AC ??27.0 cm 31w1d (55c9l-97p8h) Hadl AC ??62% HC/AC ??1.05 (0.97 - 1.16) FL ?? 5.6 cm 29w2d (98h5h-98v4o) Hadl FL ??9% CI ? 0.74 (0.70 - 0.86) HL ?? 5.0 cm 29w0d (69p5o-75b6b) Zackery HL ??24% Cere 3.8 cm 31w2d (43c2v-64s2g) Hill Cere63% GA for sonogram 29w6d (76p4g-17t7t) ?? Weight Estimate: based on (BPD,HC,AC,FL) Hadlock [...] of ultrasound ?? Reassuring Umbilical Artery Doppler BPP 10/30 RECOMMEND: Twice weekly testing due to preeclampsia without severe features. Ultrasound in 3-4 weeks for growth and completion of the anatomic survey ?? Thank you for allowing us the opportunity to care for your patient. ?? Zachrey Alfred MD <Electronic Signature> ??12/11/2023 01:14pm Revised Raman Medeiros MD [facility] ORDERABLES documented in this encounter Visit Diagnoses Diagnosis Encounter for anatomic survey (HCC)- Primary Encounter for anatomic survey documented in this encounter Care Teams Director Of Psychiatry Relationship Specialty Start Date End Date Shana Easton MD [address] [phone] PCP - General Family Medicine 01/09/20 documented as of this encounter
--- OUTSIDE RECORDS SUMMARY | 2024-03-15 14:29 | XMS_ITS | Encounter Summary ---
Author Organization [facility] Address [address] [facility] [place] [address] Care Team Providers Care Swing Frame Grinder Operator Name Role Phone Shana Easton MD Primary Care Provider [phone] Reason for Referral * (Routine) - Closed Specialty Diagnoses / Procedures Referred By Contac t Referred To Contact Diagnoses History of labor History of gestational hypertension 29 weeks gestation of (HCC) SGA (small for gestational age) (HCC) Encounter for ultrasound to assess growth (HCC) Procedures SONOGRAM - COMPLETE Jin Ho MD [address] [address] Referral ID Status Reason Start Date Expiration Date Visits Re quested Visits Authorized [id number] Closed 12/11/2022 12/11/2023 1 1 * (Routine) - Closed Specialty Diagnoses / Procedures Referred By Contac t Referred To Contact Diagnoses History of labor History of gestational hypertension 29 weeks gestation of (HCC) SGA (small for gestational age) (HCC) Encounter for ultrasound to assess growth (HCC) Procedures SONOGRAM - COMPLETE Jin Ho MD [address] [facility] [address] [place] [address] Referral ID Status Reason Start Date Expiration Date Visits Re quested Visits Authorized [id number] Closed 12/11/2022 12/11/2023 1 1 Reason for Visit * Reason Comments Ultrasound Encounter Details Date Type Department Care Team (Latest Contact Info) Description 12/11/2022 9:37 AM CDT - 12/11/2022 11:59 PM CDT Hospital Encounter [facility] Maternal & Care [address] [place], [place] [phone] Jil Lang MD [address] [phone] Discharge Disposition: Home or Self Care Social [...] st Contact Info) Description 03/23/2024 [address] [facility] [address] [place] [address] documented as of this encounter Procedures Procedure Name Priority Date/Time Associated Diagnosis Comments SONOGRAM - COMPLETE Routine 12/11/2022 9 :39 AM CDT History of labor History of gestational hypertension 29 weeks gestation of (HCC) SGA (small for gestational age) (HCC) Encounter for ultrasound to assess growth (HCC) documented in this encounter Results * SONOGRAM - COMPLETE (12/11/2022 9:39 AM CDT) Anatomical Region Laterality Modality Other 12/11/2022 9:39 AM CDT Narrative 12/11/2022 11:09 AM CDT ? [facility] ?Maternal and Care Center ?PHONE: ??FAX: Pat. Name: ?DIOGENES MONET Pat. No: ?[id number] Study Date: ?? 12/11/2022 ??9:39am , Age: ? 2000, 22 Pregnancies: ?? 5, Para 1122 Height: ? 63 in Weight: ? 107 lb LMP: ?05/19/2022 GA by LMP: ?29w3d GA by Base: ?? 29w3d ?? ANGIE: 02/23/2023 GA by US: ? 28w3d ?? ANGIE: 03/02/2023 GA Selected: ??29w3d (LMP) ANGIE: ?02/23/2023 Referring MD: Tal Green MD Retort Fireman: ??Sravani Jiménez RDMS CPT4: ? 55036 BMI: ?18.95 Hist/Ind: ? growth assessment ?Vaginal bleeding 12-18 weeks ? Borderline intraabdominal echogenicites at 18 weeks ?G1 & G4: 7-8 week SAB x 2, no D&C ?G2: HTN, 39 week , 3260 g, pyloric stenosis ?G3: HTN, PTL, 34 week , 2722 g MEASUREMENTS & AGE ? GROWTH EVALUATION Measurement ??GA ? Range ? Srce %for GA Ratios ----- ---- ------- BPD ??6.8 cm 27w3d (00g9a-66i8k) Hadl BPD 1% FL/BPD 0.81 (0.71 - 0.87) HC ??26.1 cm 28w3d (24c8q-19k5y) Hadl HC ??3% FL/AC ??0.22 (0.20 - 0.24) AC ??24.6 cm 28w6d (28n3w-73n0s) Hadl AC ??26% HC/AC ??1.06 (0.98 - 1.17) FL ?? 5.5 cm 29w0d (49w6u-25u5j) Hadl FL ??26% CI ? 0.71 (0.70 - 0.86) HL ?? 4.8 cm 28w2d (92g0d-48j7x) Zackery HL ??31% GA for sonogram 28w3d (14x4l-56f6b) ?? Weight Estimate: based on (BPD,HC,AC,FL) Avg ?Weight: 1276 gm (1090-1462gm) Had ? : 2lbs, 13oz ? Normal: 1451 gm (1088- 1814gm) Had ? Wt% ? 18% for 29w3d Heart Rate: 146 bpm Amniotic Fluid Index: 12.1cm (09.1-23.2) Q1: 3.8cm ??Q2: 3.2cm ??Q3: 2.4cm ??Q4: 2.7cm ?? EVAL, PLACENTA Presentation: breech Placenta: posterior Heart Rate: 146 bpm Amniotic Fluid Volume: normal Anatomy!Normal!Abnormal!Suboptimal!Prev. Seen!Comments Profile ?! ?? x ??! ?! ?! ?! Stomach ?! ?? x ??! ?! ?! ?! Kidneys ?! ?? x ??! ?! ?! ?! Bladder ?! ?? x ??! ?! ?! ?! CLINICAL SUMMARY No abnormalities were detected during today's limited review of the anatomy. IMPRESSION: ?? 1) Beckett gestation, 29w3d 2) Overall, biometry is consistent with appropriate growth 3) The head circumference is < 5th Hadlock centile but is not diagnostic of microcephaly (Z score -1.8) 4) The amniotic fluid volume is within normal limits NOTE: Ultrasound does not allow detection of all structural or genetic abnormalities. ?? RECOMMEND: Follow up ultrasound only if clinically indicated Thank you for allowing us the opportunity to care for your patient. Jil Lang MD <Electronic Signature> ??12/11/2022 11:09am Jin Ho MD [facility] ORDERABLES documented in this encounter Visit Diagnoses Diagnosis Family history of pyloric stenosis- Primary Family history of other digestive disorders History of labor Personal history of pre-term labor History of gestational hypertension 29 weeks gestation of (HCC) state, incidental SGA (small for gestational age) (HCC) Nhlsl-bch-bryrv without mention of malnutrition, unspecified (weight) Encounter for ultrasound to assess growth (HCC) documented in this encounter Care Teams Swing Frame Grinder Operator Relationship Specialty Start Date End Date Shana Easton MD [address] [place] [phone] PCP - General Family Medicine 01/09/20 documented as of this encounter
--- OUTSIDE RECORDS SUMMARY | 2024-03-15 14:29 | XMS_ITS | Encounter Summary ---
Author Organization [facility] Address [address] [place] [address] Care Team Providers Care Biodiesel Processing Technician Name Role Phone Shana Easton MD Primary Care Provider [phone] Encounter Details Date Type Department Care Team (Latest Contact Info) Description 12/11/2023 Travel Social History Tobacco Use Types Packs/Day [...] and heating? Not hard at all 12/11/2023 [facility] [place] of Occupat ional Health - Occupational Stress [...] place to sleep or slept in a care home (including now)? No 12/11/2023 [place] Depression Scale Answer Date Recorded [place] Depression Scale Total 0 12/11/2023 The thought [...] st Contact Info) Description 03/23/2024 Hospital Encounter [facility] [address] [facility] [address] [place] [address] documented as of this encounter Visit Diagnoses Not on filedocumented in this encounter Care Teams Biodiesel Processing Technician Relationship Specialty Start Date End Date Shana Easton MD [address] [place] [address] PCP - General Family Medicine 01/09/20 documented as of this encounter
--- OUTSIDE RECORDS SUMMARY | 2024-03-15 14:29 | XMS_ITS | Encounter Summary ---
Author Organization [facility] Address [address] [place] [address] Care Team Providers Care Etcher Apprentice Photoengraving Name Role Phone Shana Easton MD Primary Care Provider Reason for Referral * (Routine) - Closed Specialty Diagnoses / Procedures Referred By Contac t Referred To Contact Diagnoses History of delivery, currently (HCC) High risk teen in third trimester (HCC) Short interval between pregnancies affecting , antepartum (HCC) 20 weeks gestation of (HCC) Poor growth affecting management of mother in third trimester, single or unspecified fetus (HCC) Procedures SONOGRAM - COMPLETE Bolivar Green MD [address] [facility] [place] [address] Referral ID Status Reason Start Date Expiration Date Visits Re quested Visits Authorized [id number] Closed 10/08/2022 10/08/2023 1 1 * (Routine) - Closed Specialty Diagnoses / Procedures Referred By Contac t Referred To Contact Diagnoses History of delivery, currently (HCC) High risk teen in third trimester (HCC) Short interval between pregnancies affecting , antepartum (HCC) 20 weeks gestation of (HCC) Poor growth affecting management of mother in third trimester, single or unspecified fetus (HCC) Procedures SONOGRAM - COMPLETE Bolivar Green MD [address] [place] [address] Referral ID Status Reason Start Date Expiration Date Visits Re quested Visits Authorized [id number] Closed 10/08/2022 10/08/2023 1 1 Reason for Visit * Reason Comments Ultrasound Encounter Details Date Type Department Care Team (Latest Contact Info) Description 10/12/2022 9:35 AM CDT - 10/12/2022 11:59 PM CDT Hospital Encounter [facility] Maternal & Care [address] [place] [address] Tomasa Vazquez MD [address] [address] Discharge Disposition: Home or Self [...] st Contact Info) Description 03/23/2024 Hospital Encounter [facility] 5 [address] [place] [address] documented as of this encounter Procedures Procedure Name Priority Date/Time Associated Diagnosis Comments SONOGRAM - COMPLETE Routine 10/12/2022 9 :48 AM CDT History of delivery, currently (HCC) High risk teen in third trimester (HCC) Short interval between pregnancies affecting , antepartum (HCC) 20 weeks gestation of (HCC) Poor growth affecting management of mother in third trimester, single or unspecified fetus (HCC) documented in this encounter Results * SONOGRAM - COMPLETE (10/12/2022 9:48 AM CDT) Anatomical Region Laterality Modality Other 10/12/2022 9:48 AM CDT Narrative 10/12/2022 4:36 PM CDT ? [facility] ?Maternal and Care Center ?PHONE: ??FAX: Pat. Name: ?DIOGENES MONET Pat. No: ?[id number] Study Date: ?? 10/12/2022 ??9:48am , Age: ? 2000, 22 Pregnancies: ?? 5, Para 1122 Height: ? 63 in Weight: ? 107 lb LMP: ?05/19/2022 GA by LMP: ?20w6d GA by Base: ?? 20w6d ?? ANGIE: 02/23/2023 GA [facility]GIE: ?02/23/2023 Referring MD: Tal Green MD Custom Designer: ??Belkys Wood, MERRY, RDCS CPT4: ? 45896,68427 BMI: ?18.95 Hist/Ind: ? G1: SAB @ 7 wk no D&C ?G2: @ 39 wk 3260 gm, PTL, HTN, Pyloric stenosis ?G3: @ 34 wk 2722 gm, PTL, HTN ?G4: SAB @ 8 wk no D&C ?G5: Vaginal bleeding @ 12-18 weeks ?Borderline intraabdominal Liver & Bowel echogenicites 09/26/22 Cervix: ??Length: 3.5 cm ??Funneling: not present Heart Rate: 146 bpm Amniotic Fluid Index: 04.2cm (Deepest Pocket) EVAL, PLACENTA Presentation: cephalic Placenta: posterior Previa: no previa seen Heart Rate: 146 bpm Amniotic Fluid Volume: [...] ?! ? x ?! 4 Chamber Hea! ?! ?! ? x ?! ?! LVOT ? ! ?! ?! ? x ?! ?! RVOT ? ! ?! ?! ? x ?! ?! 3 Vessel View! ?! ?! ? x ?! ?! 3 Vessel Trac! ?! ?! [...] ?! ?! ? x ?! Bowel ?! ?! ?! ? x [...] ?! ?! ? x ?! CLINICAL SUMMARY A single fetus is seen in cephalic presentation. ??The amniotic fluid volume is within normal limits. ?? cardiac activity and movements were demonstrated. IMPRESSION: Single , live, intrauterine at 20w6d Amniotic fluid: within normal limits ?? Normal-range transvaginal cervical length ?? RECOMMEND: Ultrasound in 2 weeks for cervical length, growth, to complete anatomy and to reevaluate liver and bowel. ?? Note: Ultrasound has limitations and does not allow the detection of all congenital malformations, genetic or chromosomal abnormalities. Thanks for allowing us the opportunity to care for your patient. ?? 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
--- OUTSIDE RECORDS SUMMARY | 2024-03-15 14:30 | XMS_ITS | Encounter Summary ---
Author Organization [facility] Address [address] [place] [address] Care Team Providers Care Bar Captain Name Role Phone Shana Easton MD Primary Care Provider [phone] Reason for Visit * Reason Comments Imm Inj PPD Skin Test Placement Encounter Details Date Type Department Care Team (Late st Contact Info) Description 01/16/2020 10:00 AM CDT Office Visit [facility] [address] [address] [facility] (Primary Dx); Flu vaccine need Social History Tobacco Use Types Packs/Day Years [...] have Coronavirus / COVID-19? No / Unsure 01/18/2020 10:38 AM CDT documented as of this encounter Progress Notes * Asia Ospina APRN-DEO - 01/18/2020 10:44 AM CDT Office Visit on 01/16/20 SKIN TEST PPD - POINT OF CARE Result Value Ref Range PPD 0mm-negative; placed 01/15 at 1015; read 01/17 at 1040 * Asia Moncada APRN-CNP - 01/16/2020 10:15 AM CDT Images from the original note were not included. PPD Placement note: Mariam Lea presents to the [facility] for placement of a TB screening (PPD) test Reason for PPD test: school She taken PPD test before: yes Allergies verified. Patient denies allergy to any component of the Tubersol derivatives. The TB screening questionnaire reviewed with patient, signed, and scanned into the medical record.The patient is alert and oriented in no acute distress. PPD placed on left FOREARM using Mantoux TB test technique. Patient tolerated well. Patient advised to return for reading within 48-72 hours, failure to do so will result in an invalid test. Asia Moncada DNP, MARA-PATRICIA 01/16/2020 10:15 AM Patient here for Influenza vaccine today. Allergies reviewed. Vaccine consent signed, reviewed withpatient, and scanned into record. Education materials provided to patient. Patient tolerated well. Asia Moncada DNP, FLIGHT MANAGER-BC It is flu (prevention) season. 1) Influenza (Flu) Facts: ?? The flu is a contagious respiratory illness caused by influenza viruses. It can cause mild to severe illness, and at times can lead to hospitalizations and . ?? Annual vaccination is important because influenza is unpredictable and flu viruses are constantly changing. Even if you???ve been vaccinated before, the flu vaccine from a previous season may not protect against current flu viruses. ?? Flu vaccines CANNOT cause the flu. The viruses in flu vaccines are either killed (as in the flu shot ) or weakened (the nasal-spray vaccine). The flu vaccines work by priming your body's defensesin case you are exposed to an actual flu virus. ?? Flu vaccines are safe. Serious problems from the flu vaccine are very rare. The most common sideeffect that a person is likely to experience is soreness where the injection was given. This is generally mild and usually goes away after a day or two. 2) Who should get vaccinated this season?: Everyone 6 months and older should get a flu vaccine each year. This recommendation has been in place since May 18, 2009 when CDC???s Advisory Committee on Immunization Practices (ACIP) voted for ???universal?? flu vaccination in the [place] to expand pr otection against the flu to more people. While everyone should get a flu vaccine each flu season, it???s especially important that certain people get vaccinated either because they are at high risk of having serious flu-related complications or because they live with or care for people at high riskfor developing flu- related complications. ??? women ??? Children younger than 5, but especially children younger than 2 years old ??? People 50 years of age and older ??? People of any age with certain chronic medical conditions ??? People who live in nursing homes and other long-term care facilities ??? People who live with or care for those at high risk for complications from flu, including: o Health care workers (physicians, nurses, other workers in hospital and outpatient care settings, and medical emergency response workers) o Household contacts of persons at high risk for complications from the flu Household contacts and out of home caregivers of children less than 6 months of age (these childrenare too young to be vaccinated) * Lynn Melendrez - 01/16/2020 10:06 AM CDT Mariam Lea is a .19 year old .female patient, here for: Chief Complaint Patient presents with ??? Imm Inj ??? PPD Skin Test Placement No orders of the defined types were placed in this encounter. Patient tolerated without difficulty. Hemostasis achieved, and sterile band-aid placed. Immunization questionnaire scanned into the medical record. -Advised patient to keep a record of all vaccinations. (may use [facility] MyChart if desired) -May take Tylenol (acetaminophen) as needed for aches/pains per package directions. -If you develop redness, swelling at the injection site; it should resolve on its own within 5-7 days of injection. Use warm compresses as needed to the site. -Return to clinic for an evaluation if needed. -Current CDC VIS Handout given Follow-up with your Shana Easton MD as directed. If no PCP listed, referral offered. .Lynn Melendrez 01/16/2020 10:06 AM documented in this encounter Plan of Treatment Upcoming Encounters Date Type Department Care Team (Late st Contact Info) Description 03/23/2024 Hospital Encounter [facility] [address] [place] [address] documented as of this encounter Procedures Procedure Name Priority Date/Time Associated Diagnosis Comments SKIN TEST PPD - POINT OF CARE Routine 01/16/2020 10:15 AM CDT PPD screening test documented in this encounter Results * SKIN TEST PPD - POINT OF CARE (01/16/2020 10:15 AM CDT) PPD 0mm-negative ; placed 01/15 at 1015; read 01/17 at 1040 Other MISCELLANEOUS SAMPLE S / Unknown 01/16/2020 10:15 AM CDT Asia Moncada TREATING INSPECTOR-TELETYPESETTER OPERATOR LAB - POINT OF CARE ORDERABLES documented in this encounter Visit Diagnoses Diagnosis PPD screening test- Primary Screening examination for pulmonary tuberculosis Flu vaccine need Need for prophylactic vaccination and inoculation against influenza documented in this encounter Administered Medications Administered Medications Medication Order MAR Action Action Date Dose Rate Site PPD Intradermal Given 01/16/2020 0.1 mL Left Forearm documented in this encounter Care Teams Bar Captain Relationship Specialty Start Date End Date Shana Easton MD [address] [place] [id number] PCP - General Family Medicine 01/09/20 documented as of this encounter
--- OUTSIDE RECORDS SUMMARY | 2024-03-15 14:30 | XMS_ITS | Encounter Summary ---
Author Organization [facility] Health Address [address] [place] [address] Care Team Providers Care Team Supervisor Name Role Phone Shana Easton MD Primary Care Provider [phone] Encounter Details Date Type Department Care Team (Latest Contact Info) Description 01/18/2020 Travel Social History Tobacco Use Types Packs/Day [...] AM CDT documented as of this encounter Plan of Treatment Upcoming Encounters Date Type Department Care Team (Late st Contact Info) Description 03/23/2024 Hospital Encounter [facility] [address] [place] [address] documented as of this encounter Visit Diagnoses Not on filedocumented in this encounter Care Teams Team Supervisor Relationship Specialty Start Date End Date Shana Easton MD [address] [place] [address] PCP - General Family Medicine 01/09/20 documented as of this encounter
--- OUTSIDE RECORDS SUMMARY | 2024-03-15 14:30 | XMS_ITS | Encounter Summary ---
Author Organization [facility] Health Address [address] [facility] [place] [address] Care Team Providers Care Restaurant Server Name Role Phone Shana Easton MD Primary Care Provider [phone] Encounter Details Date Type Department Care Team (Latest Contact Info) Description 01/16/2020 Travel Social History Tobacco Use Types Packs/Day [...] have Coronavirus / COVID-19? No / Unsure 01/16/2020 9:47 AM CDT documented as of this encounter Plan of Treatment Upcoming Encounters Date Type Department Care Team (Late st Contact Info) Description 03/23/2024 Hospital Encounter [facility] [address] [place] [address] documented as of this encounter Visit Diagnoses Not on filedocumented in this encounter Care Teams Restaurant Server Relationship Specialty Start Date End Date Shana Easton MD [address] [place] [address] PCP - General Family Medicine 01/09/20 documented as of this encounter
--- OUTSIDE RECORDS SUMMARY | 2024-03-15 14:30 | XMS_ITS | Encounter Summary ---
Author Organization [facility] Address [address] [facility] [place] [address] Care Team Providers Care Television Producer Name Role Phone Shana Easton MD Primary Care Provider Encounter Details Date Type Department Care Team (Latest Contact Info) Description 01/13/2020 Travel Social History Tobacco Use Types Packs/Day [...] have Coronavirus / COVID-19? No / Unsure 01/13/2020 9:23 AM CDT documented as of this encounter Plan of Treatment Upcoming Encounters Date Type Department Care Team (Late st Contact Info) Description 03/23/2024 Hospital Encounter [facility] [address] [place] [address] documented as of this encounter Visit Diagnoses Not on filedocumented in this encounter Care Teams Television Producer Relationship Specialty Start Date End Date Shana Easton MD [address] [place] [address] PCP - General Family Medicine 01/09/20 documented as of this encounter
--- OUTSIDE RECORDS SUMMARY | 2024-03-15 14:31 | XMS_ITS | Encounter Summary ---
Author Organization [facility] Address [address] [place] [address] Care Team Providers Care Emergency Management Consultant Name Role Phone Unavailable Primary Care Provider Unavailabl e Reason for Visit * Reason Comments Mass 2 right breast ellen s Encounter Details Date Type Department Care Team (Latest Contact Info) Description 07/22/2012 11:10 AM CDT - 07/22/2012 11:59 PM CDT Hospital Encounter [facility] Pediatrics - Surgery [address] [place] [address] Yocasta Marsh MD [address] [place] [address] [place] [address] Discharge Disposition: Home or Self Care Social History Tobacco Use Types Packs/Day Years Used Date Smoking Tobacco: Never Assessed Sex and Gender Information Value Date Recorded Sex Assigned at Female 09/17/2022 8:47 AM CDT Gender Identity Female 09/17/2022 8:47 AM CDT Sexual Orientation Not on file documented as of this encounter Progress Notes * Yocasta Marsh MD - 07/23/2012 5:37 PM CDT We saw Mariam Carter in clinic for a right breast mass. Mariam Carter is a 11 y.o. female who has noticed two hard masses within her right breast. It has caused her no symptoms, and seems to be stable the last couple months. She has no masses in her left breast, nor lumps in either axilla. She does have a family history of breast cancer, but not in first degree relatives. She has no other medical problems. On exam, she has two distinct masses in her breast, one just inferior to the nipple, and the other is at 7 o'clock. Both are quite hard, and distinct, and feel like fibroadenomas. The risk of malignancy is quite low in a 11 yo, but the only way to rule it out is to biopsy or excise. After a discussion with mom, we decided to start with a fine needle aspiration and then consider excision. I will then see her after the biopsy has been done. documented in this encounter H&P Notes * Jennifer Parks MD - 07/22/2012 1:28 PM CDT Images from the original note were not included. Attending Physician: Yocasta Marsh MD Office 07/22/2012 1:28 PM Pediatric General Surgery History and Physical Encounter Date: 07/22/2012 Patient's Primary Care Physician: Zachery Ryan Name: Mariam Carter Age: 11 y.o. Sex: female Date: 07/22/2012 Chief Complaint/History of Present Illness Chief Complaint: Mass of the right breast Referred by: PCP Mariam Carter is a 11 y.o. female who presents for evaluation of a right breast mass. The mass has been present for approximately 2 months. It does not change with her menstrual cycle (first started menstruating in January 2012). It is slightly increasing in size. It occasionally bothers the patient when she is active. She denies any nipple discharge or overlying skin changes. She has a second cousin that was diagnosed with breast cancer at age 20, an aunt with a benign breast lesion, and a maternal grandmother with breast cancer. An ultrasound was obtained that showed 2 masses of the right breast. No past medical history on file. Past Surgical History Procedure Date ??? Tonsillectomy and adenoidectomy No family history on file. Social History Occupational History ??? Not on file. Social History Main Topics ??? Smoking status: Not on file ??? Smokeless tobacco: Not on file ??? Alcohol Use: ??? Drug Use: ??? Sexually Active: (Not in a hospital admission) No Known Allergies Review of Systems Constitutional: Negative Eyes: Negative Ears, nose, mouth, and throat: Negative Respiratory: Negative Cardiovascular: Negative Gastrointestinal: Negative Genitourinary:Negative Skin: Negative Hematologic/lymphatic: Negative Musculoskeletal:Negative Neurological: Negative Behavioral/Psych: Negative Endocrine: Negative Lives with: her mother and sister Physical Examination: There were no vitals taken for this visit. Wt Readings from Last 3 Encounters: No data found for Wt Ht Readings from Last 3 Encounters: No data found for Ht There is no height or weight on file to calculate BMI. No unique date with height and weight on file. No weight on file. No height on file. Exam There were no vitals filed for this visit. General appearance: alert, cooperative, no distress Head: Normocephalic, without trauma Neck: range of motion is intact, no masses, thyroid not enlarged, no adenopathy Nodes: no cervical, axillary or inguinal adenopathy Chest: no tenderness Breasts: Left breast without masses. Right breast with an approximately 3x3cm hard, mobile mass at the 7:00 position. A second mass is noted just inferior to the nipple Lungs: breath sounds normal and symmetric; no rales or wheezes Heart: regular rhythm, normal S1 and S2, without murmurs, gallops or rubs Abdomen: soft without mass, non-tender, with normal bowel sounds Extremities: no clubbing, cyanosis or edema Skin: no rashes or other abnormalities are noted Neurologic: mental status normal; alert and oriented X 3; cranial nerves II - XII are grossly intact Assessment This is a Mariam Carter is a 11 y.o. 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 As it is likely benign, they would like to proceed with needle biopsy. - Plan to set this up for the patient and have her follow up in 1 month Thank you for the consult Jennifer Parks MD 07/22/2012 1:28 PM * Yocasta Marsh MD - 07/22/2012 1:28 PM CDT I reviewed the chart of this child, have seen and examined this patient and agree with above note as amended by me. Thank you for this consult. Yocasta Marsh MD 07/23/2012 5:37 PM documented in this encounter Plan of Treatment Upcoming Encounters Date Type Department Care Team (Late st Contact Info) Description 03/23/2024 Hospital Encounter [facility] [address] [place] [address] documented as of this encounter Visit Diagnoses Not on filedocumented in this encounter
--- OUTSIDE RECORDS SUMMARY | 2024-03-15 14:31 | XMS_ITS | Encounter Summary ---
Author Organization [facility] Address [address] [place] [address] Care Team Providers Care Brood Hatchery Manager Name Role Phone Unavailable Primary Care Provider Unavailabl e Reason for Visit * Evaluate & Treat (Routine) - Closed Specialty Diagnoses / Procedures Referred By Dora t Referred To Contact Diagnoses Maternal care for known or suspected placental insufficiency, unspecified trimester, not applicable or unspecified (HCC) Supervision of other high risk pregnancies, unspecified trimester ([facility]) Procedures MA FULL ROUT OBSTE CARE,VAGINAL Jennifer Hylton MD [address] [place] [address] [facility] Maternal Fet [facility] [place] [address] Referral ID Status Reason Start Date Expiration Date Visits Re quested Visits Authorized [id number] Closed 2017 03/31/2018 20 20 Encounter Details Date Type Department Care Team (Latest Contact Info) Description 10/07/2017 8:05 AM CDT - 10/07/2017 9:27 AM CDT Hospital Encounter [facility] & Care [address] [place] [address] Yves Pena MD [address] [facility] [place] [address] Discharge Disposition: Home or Self Care Social History Tobacco Use Types Packs/Day Years Used Date Smoking Tobacco: Never Assessed Comments Yes Sex and Gender Information Value Date Recorded Sex Assigned at Female 09/17/2022 8:47 AM CDT Gender Identity Female 09/17/2022 8:47 AM CDT Sexual Orientation Not on file documented as of this encounter Plan of Treatment Upcoming Encounters Date Type Department Care Team (Late st Contact Info) Description 03/23/2024 Hospital Encounter [facility] [address] [place] [address] documented as of this encounter Procedures Procedure Name Priority Date/Time Associated Diagnosis Comments SONOGRAM - COMPLETE Routine 10/07/2017 9 :23 AM CDT Poor growth affecting management of mother in third trimester, single or unspecified fetus (HCC) documented in this encounter Results * SONOGRAM - COMPLETE (10/07/2017 9:23 AM CDT) Anatomical Region Laterality Modality Other 10/07/2017 9:23 AM CDT Narrative 10/07/2017 9:51 AM CDT ? - [facility] ?PHONE: ??FAX: ? Pat. Name: ?DIOGENES CARTER. No: ?[id number] Study Date: ?? 10/07/2017 ??9:23am , Age: ? 2000, 17 Pregnancies: ?? 3, Para 1, Ab 1 Height: ? 63 in Weight: ? 98 lb LMP: ?Unknown GA by US: ? 32w4d ?? ANGIE: 11/28/2017 GA Selected: ??35w4d (Outside Scan) ANGIE: ?11/07/2017 Referring MD: Jennifer Villatoro MD Archivist Political History: ??Izabela Velez RDMS CPT4: ? [id number] BMI: ?17.36 Hist/Ind: ? Teen ?IUGR ?Short interval ?PTL MEASUREMENTS & AGE ? GROWTH EVALUATION Measurement ??GA ? Range ? Srce %for GA Ratios ----- ---- ------- BPD ??8.0 cm 32w1d (88j0c-70z6r) Hadl BPD <01 FL/BPD 0.80 (0.71 - 0.87) HC ??30.0 cm 33w2d (50w4w-26g4c) Hadl HC ??<01 FL/AC ??0.22 (0.20 - 0.24) AC ??29.4 cm 33w3d (47g2n-14a0y) Hadl AC ??7% HC/AC ??1.02 (0.93 - 1.12) FL ?? 6.4 cm 32w6d (19s6t-88v3u) Hadl FL ??2% CI ? 0.74 (0.70 - 0.86) HL ?? 5.7 cm 33w2d (33z1n-63k1y) Zackery HL ??12% GA for sonogram 32w4d (67o3e-34j6r) ?? Weight Estimate: based on (BPD,HC,AC,FL) Hadlock ?Weight: 2122 gm (1812-2432gm) Had ? : 4lbs, 10oz ? Normal: 2710 gm (2033- 3388gm) Had ? Wt% ? 5% for 35w4d Heart Rate: 134 bpm Amniotic Fluid Index: 11.3cm (07.8-24.9) Q1: 2.7cm ??Q2: 3.9cm ??Q3: 1.7cm ??Q4: 3.0cm ?? Biophysical Profile: 11/01 Breathin ?? Tone: 2 ?? NST: 2 Movement: ??2 ?? AFV: ??2 EVAL, PLACENTA Presentation: cephalic Umbilical Cord: 3 Vessels Placenta: posterior:fundal Heart Rate: 134 bpm Amniotic Fluid Volume: normal DOPPLER Umbilical - Mid Cord S/D ??2.17(1.66 - 3.55) ? PI ?? 0.79 (0.59 - 1.17) ? Middle Cerebral Artery PSV ??57.7cm/s PI ?? 2.79 (1.43 - 2.58) * ?? Med PSV 52.4cm/s MoM 1.10(<1.5) Anatomy!Normal!Abnormal!Suboptimal!Comments Cranium ?! ?? x ??! ?! ?! Mdl (CSP/Thal! ?? x ??! ?! ?! Ventricles ?? ! ?? x ??! ?! ?! Choroid Plexu! ?? x ??! ?! ?! Cerebellum ?? ! ?? x ??! ?! ?! Cisterna M. ??! ?? x ??! ?! ?! Profile ?! ?? x ??! ?! ?! Nasal Bone ?? ! ?! ?! ? x ?! Lip ?! ?! ?! ? x ?! Spine ?! ?! ?! ? x ?! Lungs ?! ?! ?! ? x ?! 4 Chamber Hea! ?! ?! ? x ?! LVOT ? ! ?? x ??! ?! ?! RVOT ? ! ?? x ??! ?! ?! 3 Vessel View! ?? x ??! ?! ?! Cross-over ?? ! ?? x ??! ?! ?! Ductal Arch ??! ?! ?! ? x ?! Aortic Arch ??! ?? x ??! ?! ?! Caval View ?? ! ?! ?! ? x ?! Situs ?! ?? x ??! ?! ?! Diaphragm ?! ?? x ??! ?! ?! Stomach ?! ?? x ??! ?! ?! Bowel ?! ?? x ??! ?! ?! Kidneys ?! ?? x ??! ?! ?! Bladder ?! ?? x ??! ?! ?! 3 Vessel Cord! ?? x ??! ?! ?! Cord In! ?! ?! ? x ?! Upper Extremi! ?! ?! ? x ?! Hands ?! ?! ?! ? x ?! Lower Extremi! ?! ?! ? x ?! Feet ? ! ?! ?! ? x ?! External Joslyn! ?! ?! ? x ?! CLINICAL SUMMARY Study Number: 1 A single fetus is identified in cephalic presentation. ??The measurements today are consistent with SGA. ??The ANGIE selected is based on a prior ultrasound examination. ??The amniotic fluid volume is normal. ??The placenta is posterior,fundal. No major malformations are seen within the limitations of ultrasound examination. ??The patient was advised that ultrasound does not allow detection of all structural or chromosomal abnormalities. IMPRESSION: 1. Single, live, IUP at 35w4d 2. SGA size 3. normal amniotic fluid volume 4. posterior,fundal placenta 5. Anatomy survey is incomplete and limited by positioning and advanced gestational age RECOMMEND: ??Follow up ultrasound for weekly BPP/Dopplers/GARRICK and twice weekly NSTs. Delivery at 37 weeks Thank you for allowing us the opportunity to care for your patient. Yves Pena MD <Electronic Signature> ??10/07/2017 09:51am Ordering Provider Unlisted MD CEE ORDERRenee BLES documented in this encounter Visit Diagnoses Diagnosis Poor growth affecting management of mother in third trimester, single or unspecified fetus (HCC) documented in this encounter
--- OUTSIDE RECORDS SUMMARY | 2024-03-15 14:31 | XMS_ITS | Encounter Summary ---
Author Organization [facility] Address [address] [place] [address] Care Team Providers Care Street Light Lamp Cleaner Name Role Phone Unavailable Primary Care Provider Unavailabl e Reason for Visit * Reason Comments PPD Skin Test Placement Encounter Details Date Type Department Care Team (Late st Contact Info) Description 05/18/2019 6:40 PM CARBONATING STONE CLEANER Clinical Support [facility] AT [address] [id number] Provider, [facility] PPD screening test Social History Tobacco Use Types Packs/Day Years Used Date Smoking Tobacco: Never Assessed Sex and Gender Information Value Date Recorded Sex Assigned at Female 09/17/2022 8:47 AM CDT Gender Identity Female 09/17/2022 8:47 AM CDT Sexual Orientation Not on file documented as of this encounter Progress Notes * Alee Ball - 05/20/2019 6:49 PM CST 05/20/2019 Mariam Carter returns to clinic today for TB (PPD) reading. 0 mm of induration noted, negative reading. Copy of the results were given to patient and scanned into the medical record. Patient denies any further questions or concerns today. Alee Ball 05/20/2019 6:49 PM ONATING STONE CLEANER * Jennifer Baker APRN-CNP - 05/18/2019 6:32 PM CST PPD Placement note Mariam Carter, 18 year old female is here today for placement of PPD test Reason for PPD test: school Pt taken PPD test before: no Verified in allergy area and with patient that they are not allergic to the products PPD is made of(Phenol or Tween). Yes Is patient taking any oral or IV steroid medication now or have they taken it in the last month? no Has the patient ever received the BCG vaccine?: no Has the patient been in recent contact with anyone known or suspected of having active TB disease?:no Date of exposure (if applicable): na Name of person they were exposed to (if applicable): na Patient's Country of origin?: [place] O: Alert and oriented in NAD. P: PPD placed on 05/18/2019. Patient advised to return for reading within 48-72 hours. ONATING STONE CLEANER documented in this encounter Plan of Treatment Upcoming Encounters Date Type Department Care Team (Late st Contact Info) Description 03/23/2024 Hospital Encounter [facility] 5 [facility] [address] [place] [address] documented as of this encounter Procedures Procedure Name Priority Date/Time Associated Diagnosis Comments SKIN TEST PPD - POINT OF CARE Routine 05/20/2019 6:49 PM CARBONATING STONE CLEANER PPD screening test documented in this encounter Results * SKIN TEST PPD - POINT OF CARE (05/20/2019 6:49 PM CARBONATING STONE CLEANER) PPD 0 MM Comment:negative Other MISCELLANEOUS SAMPLE S / Unknown 05/20/2019 6:49 PM CARBONATING STONE CLEANER Jennifer SELF LAB - POINT OF CARE ORDERABLES documented in this encounter Visit Diagnoses Diagnosis PPD screening test- Primary Screening examination for pulmonary tuberculosis documented in this encounter Administered Medications Administered Medications Medication Order MAR Action Action Date Dose Rate Site PPD Intradermal Given 05/18/2019 0.1 mL Left Forearm documented in this encounter
--- OUTSIDE RECORDS SUMMARY | 2024-03-15 14:31 | XMS_ITS | Encounter Summary ---
Author Organization [facility] Address [address] [place] [address] Care Team Providers Care Public Affairs Officer Name Role Phone Unavailable Primary Care Provider Unavailabl e Encounter Details Date Type Department Care Team (Latest Contact Info) Description 01/06/2020 Travel Social History Tobacco Use Types Packs/Day [...] have Coronavirus / COVID-19? No / Unsure 01/06/2020 4:48 PM CDT documented as of this encounter Plan of Treatment Upcoming Encounters Date Type Department Care Team (Late st Contact Info) Description 03/23/2024 Hospital Encounter [facility] [address] [place] [address] documented as of this encounter Visit Diagnoses Not on filedocumented in this encounter
--- OUTSIDE RECORDS SUMMARY | 2024-03-15 14:31 | XMS_ITS | Encounter Summary ---
Author Organization [facility] Address [address] [place] [address] Care Team Providers Care Marble Coper Name Role Phone Shana Easton MD Primary Care Provider [phone] Reason for Visit * Reason Comments PPD Skin Test Placement Encounter Details Date Type Department Care Team (Late st Contact Info) Description 01/06/2020 4:40 PM CDT Office Visit [facility] AT [address] [phone] Provider, [facility] Visit for TB skin test (Primary Dx) Social History Tobacco Use Types Packs/Day Years [...] have Coronavirus / COVID-19? No / Unsure 01/09/2020 2:26 PM CDT documented as of this encounter Progress Notes * Asia Ospina APRN-DEO - 01/09/2020 3:18 PM CDT Office Visit on 01/06/20 SKIN TEST PPD - POINT OF CARE Result Value Ref Range PPD 0mm-negative; placed 01/05 at 1655l; read 01/08 at 1440 * Vivi Galvez APRN-CNP - 01/06/2020 4:56 PM CDT PPD Placement note: Mariam Lea presents to the [facility] for placement of a TB screening (PPD) test Reason for PPD test: School She taken PPD test before: yes Allergies verified. Patient denies allergy to any component of the Tubersol derivatives. The TB screening questionnaire reviewed with patient, signed, and scanned into the medical record.The patient is alert and oriented in no acute distress. PPD placed on right FOREARM using Mantoux TB test technique. Patient tolerated well. Patient advised to return for reading within 48-72 hours, failure to do so will result in an invalid test. ELISABET Rob 01/06/2020 4:56 PM documented in this encounter Plan of Treatment Upcoming Encounters Date Type Department Care Team (Late st Contact Info) Description 03/23/2024 Hospital Encounter [facility] [address] [facility] [address] [place] [address] documented as of this encounter Procedures Procedure Name Priority Date/Time Associated Diagnosis Comments SKIN TEST PPD - POINT OF CARE Routine 01/06/2020 4:55 PM CDT Visit for TB skin test documented in this encounter Results * SKIN TEST PPD - POINT OF CARE (01/06/2020 4:55 PM CDT) PPD 0mm-negative ; placed 01/05 at 1655l; read 01/08 at 1440 Other MISCELLANEOUS SAMPLE S / Unknown 01/06/2020 4:55 PM CDT Vivi SELF LAB - PO INT OF CARE ORDERABLES documented in this encounter Visit Diagnoses Diagnosis Visit for TB skin test- Primary Screening examination for pulmonary tuberculosis documented in this encounter Administered Medications Administered Medications Medication Order MAR Action Action Date Dose Rate Site PPD Intradermal Given 01/06/2020 0.1 mL Right Forearm documented in this encounter Care Teams Marble Coper Relationship Specialty Start Date End Date Shana Easton MD [address] [place] [phone] PCP - General Family Medicine 01/09/20 documented as of this encounter
--- OUTSIDE RECORDS SUMMARY | 2024-03-15 14:31 | XMS_ITS | Encounter Summary ---
Author Organization [facility] Health Address [address] [place] [address] Care Team Providers Care Car Cooper Name Role Phone Unavailable Primary Care Provider [...] st Contact Info) Description 03/23/2024 Hospital Encounter [facility] [address] [place] [address] documented as of this encounter Visit Diagnoses Not on filedocumented in this encounter
--- OUTSIDE RECORDS SUMMARY | 2024-03-15 14:31 | XMS_ITS | Encounter Summary ---
Author Organization [facility] Address [address] [place] [address] Care Team Providers Care Escapement Maker Name Role Phone Shana Easton MD Primary Care Provider Reason for Visit * Reason Comments School Physical Encounter Details Date Type Department Care Team (Latest Contact Info) Description 01/09/2020 2:40 PM CDT Clinical Support [facility] AT [address] [phone] School physical exam Social History Tobacco Use Types Packs/Day Years [...] PM CDT documented as of this encounter Last Filed Vital Signs Vital Sign Reading Time Taken Comments Blood Pressure 98/64 01/09/2020 2:46 PM CDT Pulse 90 01/09/2020 2:46 PM CDT Temperature 36.7 ??C (98.1 ??F) 01/09/2020 2:46 PM CD T Respiratory Rate 12 01/09/2020 2:46 PM CDT Oxygen Saturation 99% 01/09/2020 2:46 PM CDT Inhaled Oxygen Concentration - - Weight 45.4 kg (100 lb) 01/09/2020 2:46 PM CDT Height 160 cm (5' 3 ) 01/09/2020 2:46 PM CDT Body Mass Index 17.71 01/09/2020 2:46 PM CDT documented in this encounter Progress Notes * Asia Ospina, FIELD ACCOUNT DIRECTOR-RESTAURANT FLOOR MANAGER - 01/09/2020 2:47 PM CDT Mariam Lea is a 19 year old female patient, 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 Medications reviewed. No outpatient medications have been marked as taking for the 01/09/20 encounter (Clinical Support) with [facility]. Allergies Allergen Reactions ??? Levofloxacin Rash ??? Ciprofloxacin Other Pt states I can't breath Past Medical History: Diagnosis Date ??? Asthma staets has not had issues in years Past Surgical History: Procedure Laterality Date ??? Tonsillectomy and Adenoidectomy Social History Socioeconomic History ??? Marital status: Single Spouse name: Not on file ??? Number of children: Not on file ??? Years of education: Not on file ??? Highest education level: Not on file Occupational History ??? Not on file Social Needs ??? Financial resource strain: Not on file ??? Food insecurity Worry: Not on file Inability: Not on file ??? Transportation needs Medical: Not on file Non-medical: Not on file Tobacco Use ??? Smoking status: Never Smoker ??? Smokeless tobacco: Never Used Substance and Sexual Activity ??? Alcohol use: Not on file ??? Drug use: Not on file ??? Sexual activity: Not on file Lifestyle ??? Physical activity Days per week: Not on file Minutes per session: Not on file ??? Stress: Not on file Relationships ??? Social connections Talks on phone: Not on file Gets together: Not on file Attends worship service: Not on file Active member of club or organization: Not on file Attends meetings of clubs or organizations: Not on file Relationship status: Not on file ??? Intimate partner violence Fear of current or ex partner: Not on file Emotionally abused: Not on file Physically abused: Not on file Forced sexual activity: Not on file Other Topics Concern ??? Not on file Social History Narrative ??? Not on file Social History Tobacco Use Smoking Status Never Smoker Smokeless Tobacco Never Used She denies use of steroids, other performance, or recreational drugs. ROS Constitutional: Negative Eyes: Negative, denies vision changes, blurriness. EMNT: Negative Cardio: Negative, denies any history of chest pain, chest pain with exertion, feeling lightheaded or dizziness with exercise. Resp: Negative, denies difficulty breathing during or after exertion. Gastro: Negative : Negative Musculoskeletal: Negative, denies any known lifting restrictions, denies any known physical limitations. Skin: Negative Lymphatic/Allergy: Negative Neuro: Negative, denies any history of concussion, head injury, or seizures. Psych: Do you feel stressed out or under a lot of pressure? No Do you ever feel sad, hopeless, depressed, or anxious? No Do you feel safe at your home or residence? Yes BP 98/64 (BP SITE: RIGHT ARM, BP POSITION: SITTING, BP CUFF SIZE: 11) Pulse 90 Temp 98.1 ??F (36.7 ??C) (Oral) Resp 12 Ht 1.6 m (5' 3 ) Wt 45.4 kg (100 lb) SpO2 99% BMI 17.71 kg/m2 Hearing Screening 125Hz 250Hz 500Hz 1000Hz 2000Hz 3000Hz 4000Hz 6000Hz 8000Hz Right ear: Left ear: Visual Acuity Screening Right eye Left eye Both eyes Without correction: 20/30 20/20 20/20 With correction: Physical Exam Constitutional: Patient is oriented to person, place, and time and well- developed, well-nourished, and in no distress. Vital signs are normal. Head: Normocephalic and atraumatic. Eyes: Visual tellez normal bilaterally.Conjunctivae, EOM and lids are normal. Pupils are equal, round, and reactive to light. Vision is grossly intact. Right Ear: Hearing, tympanic membrane, external ear and ear canal normal. Left Ear: Hearing, tympanic membrane, external ear and ear canal normal. Nose: Nose normal. Mouth/Throat: Uvula is midline,oropharynx is clear & moist & mucous membranes are normal. Neck: Trachea normal, normal range of motion and full passive range of motion without pain. Neck supple. No JVD present. No tracheal deviation present. Cardiovascular: Normal rate, regular rhythm, S1 normal, S2 normal, intact and symmetrical distal pulses; simultaneous radial / femoral pulses. Exam reveals no gallop. No murmur heard. Pulmonary/Chest: Effort normal; breath sounds clear. Abdominal: Soft.No distension, tenderness, or hepatosplenomegaly. : Deferred (screening negative) Musculoskeletal: Normal range of motion of extremities.. Cervical back: Normal. Thoracic back: Normal. Lumbar back: Normal. Lymphadenopathy: No cervical adenopathy. Neurological: Normal motor skills, normal strength and intact II - XII cranial nerves. Gait normal. Skin: Skin is warm, dry and intact. No rash or skin lesions noted. Psychiatric: Mood, memory, affect and judgment normal. Functional assessment: -Able to reach overhead Yes -Climb stair Yes -Visual acuity Yes -Ability to squat/bend/kneel without difficulty Yes -Ability to sit/stand, walk, and move about without difficulty Yes Any limitations: No, if yes-they are listed below: Encounter Diagnoses Name Primary? School physical exam Yes PLAN: Cleared to work without restrictions - form signed and returned to patient and scanned into [employer]. Reviewed health maintenance and substance abuse as appropriate. Continue to follow-up with Shana Easton MD as directed-if no PCP, referral given. .ARAMIS Estrada 01/09/2020 3:15 PM documented in this encounter Plan of Treatment Upcoming Encounters Date Type Department Care Team (Late st Contact Info) Description 03/23/2024 Hospital Encounter [facility] [address] [place] [address] documented as of this encounter Visit Diagnoses Diagnosis School physical exam- Primary Health examination of defined subpopulation documented in this encounter Care Teams Escapement Maker Relationship Specialty Start Date End Date Shana Easton MD [address] [place] [address] PCP - General Family Medicine 01/09/20 documented as of this encounter
--- OUTSIDE RECORDS SUMMARY | 2024-03-15 14:31 | XMS_ITS | Encounter Summary ---
Author Organization [facility] Health Address [address] [place] [address] Care Team Providers Care Cuprous Chloride Helper Name Role Phone Shana Easton MD Primary Care Provider [phone] Encounter Details Date Type Department Care Team (Latest Contact Info) Description 01/09/2020 Travel Social History Tobacco Use Types Packs/Day [...] Contact Info) Description 03/23/2024 Hospital Encounter [facility] [address] [place] [address] documented as of this encounter Visit Diagnoses Not on filedocumented in this encounter Care Teams Cuprous Chloride Helper Relationship Specialty Start Date End Date Shana Easton MD [address] [place] [address] PCP - General Family Medicine 01/09/20 documented as of this encounter
--- OUTSIDE RECORDS SUMMARY | 2024-03-15 14:31 | XMS_ITS | Encounter Summary ---
Author Organization [facility] Health Address [address] [place] [address] Care Team Providers Care Cnc Lathe Machine Operator Name Role Phone Unavailable Primary Care Provider Unavailabl e Encounter Details Date Type Department Care Team (Latest Contact Info) Description 06/07/2019 Travel Social History Tobacco Use Types Packs/Day [...] Description 03/23/2024 Hospital Encounter [facility] [address] [place] [address] documented as of this encounter Visit Diagnoses Not on filedocumented in this encounter
--- OUTSIDE RECORDS SUMMARY | 2024-03-15 14:31 | XMS_ITS | Encounter Summary ---
Author Organization [facility] Address [address] [place] [address] Care Team Providers Care Interstate Planner Name Role Phone Unavailable Primary Care Provider Unavailabl e Reason for Visit * Evaluate & Treat (Routine) - Closed Specialty Diagnoses / Procedures Referred By Dora t Referred To Contact Diagnoses Maternal care for known or suspected placental insufficiency, unspecified trimester, not applicable or unspecified (HCC) Supervision of other high risk pregnancies, unspecified trimester ([facility]) Procedures NE FULL ROUT OBSTE CARE,VAGINAL Jennifer Hylton MD [address] [place] [address] [facility] [place] [address] Referral ID Status Reason Start Date Expiration Date Visits Re quested Visits Authorized [id number] Closed 2017 03/31/2018 20 20 Encounter Details Date Type Department Care Team (Latest Contact Info) Description 10/07/2017 9:28 AM CDT - 10/07/2017 11:59 PM CDT Hospital Encounter [facility] [address] [place] [address] Yves Pena MD [address] [place] [address] Discharge Disposition: Home or Self Care Social [...] Sign Reading Time Taken Comments Blood Pressure 103/68 10/07/2017 9:55 AM CDT Pulse 84 10/07/2017 9:55 AM CDT Temperature - - Respiratory Rate - - Oxygen Saturation - - Inhaled Oxygen Concentration - - Weight - - Height - - Body Mass Index - - documented in this encounter Plan of Treatment Upcoming Encounters Date Type Department Care Team (Late st Contact Info) Description 03/23/2024 Hospital Encounter [facility] [address] [place] [address] documented as of this encounter Visit Diagnoses Diagnosis Poor growth affecting management of mother in third trimester, single or unspecified fetus (HCC) Short interval between pregnancies affecting in third trimester, antepartum (HCC) 35 weeks gestation of (HCC) state, incidental documented in this encounter
--- OUTSIDE RECORDS SUMMARY | 2024-03-15 14:32 | XMS_ITS | Encounter Summary ---
Author Organization [facility] Address [address] [place] [address] Care Team Providers Care Cherry Sorter Name Role Phone Unavailable Primary Care Provider Unavailabl e Encounter Details Date Type Department Care Team (Late st Contact Info) Description 1998 Orders Only [facility] - [address] [address] ProviderMarkus MD Social History Tobacco Use Types Packs/Day Years Used Date Smoking Tobacco: Never Assessed Sex and Gender Information Value Date Recorded Sex Assigned at Female 09/17/2022 8:47 AM CDT Gender Identity Female 09/17/2022 8:47 AM CDT Sexual Orientation Not on file documented as of this encounter Plan of Treatment Upcoming Encounters Date Type Department Care Team (Late st Contact Info) Description 03/23/2024 Hospital Encounter [facility] [address] [place] [address] documented as of this encounter Procedures Procedure Name Priority Date/Time Associated Diagnosis Comments GROSS + MICRO EXAM JERO 1998 10 :00 AM CDT documented in this encounter Results * GROSS + MICRO EXAM (1998 10:00 AM CDT) Result CASE NUMBER [id number] [facility] PATH REPORT Comment: ORDERING PHYSICIAN ??KRISTEN SR SPECIMEN TYPE ?Placenta CLINICAL HISTORY ? GROSS DESCRIPTION ? CLINICAL DATA ?? INFANT Gestational Age ??34 weeks Weight ??1942 grams [...] ?PLACENTA B ? - NO PATHOLOGIC DIAGNOSIS. Regional Program Manager ? Melina Bustillos RESIDENT IN PATHOLOG Ar [place] M.D. PATHOLOGIST ?Art Guido M.D. ELECTRONICALLY MAU Atr Guido MISCELLANEOUS SAMPLES / Unknown 1998 10:00 AM CDT 1998 10:35 AM CDT Historical Provider LAB - PATHOLOGY/C YTOLOGY ORDERABLES [facility] PATH REPORT documented in this encounter Visit Diagnoses Not on filedocumented in this encounter
--- OUTSIDE RECORDS SUMMARY | 2024-03-15 14:32 | XMS_ITS | Encounter Summary ---
Author Organization [facility] Address [address] [place] [address] Care Team Providers Care Transcription Manager Name Role Phone Unavailable Primary Care Provider Unavailabl e Encounter Details Date Type Department Care Team (Late st Contact Info) Description 01/21/2011 - 01/21/2011 1:07 AM CDT Emergency ER at [address] [address] Discharge Disposition: ED Dismiss - Never Arrived Social History Tobacco Use Types Packs/Day Years Used Date Smoking Tobacco: Never Assessed Sex and Gender Information Value Date Recorded Sex Assigned at Female 09/17/2022 8:47 AM CDT Gender Identity Female 09/17/2022 8:47 AM CDT Sexual Orientation Not on file documented as of this encounter Plan of Treatment Upcoming Encounters Date Type Department Care Team (Late st Contact Info) Description 03/23/2024 Hospital Encounter [facility] [address] [place] [address] documented as of this encounter Visit Diagnoses Not on filedocumented in this encounter
--- OUTSIDE RECORDS SUMMARY | 2024-03-15 14:33 | XMS_ITS | Encounter Summary ---
Author Organization [facility] Address [address] [place] [address]. [place], [place] [address] [place] [address] Care Team Providers Care Machine Precision Engraver Name Role Phone Miguel Mancuso MD Primary Care Provider [phone] Encounter Details Date Type Department Care Team (Latest Contact Info) Description 02/18/2023 Travel Social History Tobacco Use Types Packs/Day Years Used Date Smoking Tobacco: Never Smokeless Tobacco: Never Alcohol Use Standard Drinks/Week Comments Never 0 (1 standard drink = 0.6 oz pur e alcohol) [facility] Utilities Answer Date Recorded In the past 12 months has e electric, gas, oil, or water company threatened to shut off services in your home? No 02/13/2023 Humiliation, Afraid, Rape, and Kick questionnair e Answer Date Recorded Within the last year, have y ou been afraid of your partner or ex-partner? No 02/13/2023 Within the last year, have y ou been humiliated or emotionally abused in other ways by your partner or ex-partner? No Within the last year, have y ou been kicked, hit, slapped, or otherwise physically hurt by your partner or ex-partner? No 02/13/2023 Within the last year, have y ou been raped or forced to have any kind of sexual activity by your partner or ex-partner? No 02/13/2023 Social Connection and Isolat ion Panel [NHANES] Answer Date Recorded In a typical week, how many times do you talk on the phone with family, friends, or neighbors? More than three times a week 02/13/2023 How often do you get togethe r with friends or relatives? Twice a week 02/13/2023 How often do you attend chur ch or rastafari services? Patient declined 02/13/2023 Do you belong to any clubs o r organizations such as yazidi groups, unions, fraternal or athletic groups, or school groups? No 02/13/2023 How often do you attend meet ings of the clubs or organizations you belong to? Never 02/13/2023 Are you , , di vorced, , never , or living with a partner? 02/13/2023 AUDIT-C Answer Date Recorded Q1: How often do you have a drink containing alcohol? Never 02/13/2023 Q2: How many drinks containi ng alcohol do you have on a typical day when you are drinking? Patient does not drink Q3: How often do you have si x or more drinks on one occasion? Never 02/13/2023 Overall Financial Resource Strain (CARDIA) Answe r Date Recorded How hard is it for you to pa y for the very basics like food, housing, medical care, and heating? Not very hard 02/13/2023 PHQ-2 Answer Date Recorded Patient Health Questionnaire-2 Score 0 08/13/2022 [facility] - Occupational Stress Questionnaire Answer Date Recorded Do you feel stress - tense, restless, nervous, or anxious, or unable to sleep at night because your mind is troubled all the time - these days? Not at all 02/13/2023 Exercise Vital Sign Answer Date Recorde d On average, how many days pe r week do you engage in moderate to strenuous exercise (like a brisk walk)? 3 days 02/13/2023 On average, how many minutes do you engage in exercise at this level? 30 min 02/13/2023 Hunger Vital Sign Answer Date Recorded Within the past 12 months, y ou worried that your food would run out before you got the money to buy more. Never true 02/14/20 23 Within the past 12 months, t he food you bought just didn't last and you didn't have money to get more. Never true 02/13/2023 PRAPARE - Transportation Answer Date Re corded In the past 12 months, has l ack of transportation kept you from medical appointments or from getting medications? No 01/24 In the past 12 months, has l ack of transportation kept you from meetings, work, or from getting things needed for daily living? No 02/13/2023 Housing Stability Vital Sign Answer Jevon e Recorded In the last 12 months, was t here a time when you were not able to pay the mortgage or rent on time? No 02/13/2023 In the last 12 months, how many places have you lived? 1 02/13/2023 In the last 12 months, was t here a time when you did not have a steady place to sleep or slept in a prison (including now)? No 02/13/2023 Comments No Sex and Gender Information Value Date Recorded Sex Assigned at Not on file Legal Sex Female 5:47 PM CDT Gender Identity Not on file Sexual Orientation Not on file documented as of this encounter Functional Status * Are you deaf or do you have serious difficulty hearing Answer Date of Assessment Author Status No 02/13/2023 6:35 AM Ata Lau R N Active * Are you blind or do you have serious difficulty seeing, even when wearing glasses? Answer Date of Assessment Author Status No 02/13/2023 6:35 AM Ata Lau, R N Active * Do you have serious difficulty walking or climbing stairs? Answer Date of Assessment Author Status No 02/13/2023 6:35 AM Ata Lau R N Active * Do you have difficulty dressing or bathing? Answer Date of Assessment Author Status No 02/13/2023 6:35 AM Ata Lau R N Active * Because of a physical, mental, or emotional condition, do you have difficulty doing errands alone such as visiting a doctor's office or shopping? Answer Date of Assessment Author Status No 02/13/2023 6:35 AM Ata Lau R N Active documented as of this encounter Mental Status * Because of a physical, mental, or emotional condition, do you have serious difficulty concentrating, remembering, or making decisions? Answer Entry Date Author Status No 02/13/2023 6:35 AM Ata Lau R N Active documented in this encounter Plan of Treatment Not on file documented as of this encounter Visit Diagnoses Not on filedocumented in this encounter Additional Health Concerns Assessment Noted Time PHQ-9 Depression Total Score: 16 022 10:37 AM CDT documented as of this encounter Care Teams Machine Precision Engraver Relationship Specialty Start Date End Date Miguel Mancuso MD [address] [place] [id number] PCP - General FAMILY PRACTICE 10/12/22 documented as of this encounter
--- OUTSIDE RECORDS SUMMARY | 2024-03-15 14:33 | XMS_ITS | Encounter Summary ---
Author Organization [facility] Address [address] [place] [address]. [place], [place] [id number] [place] [address] Care Team Providers Care Gift Consultant Name Role Phone La Nena Ferro TECH ED/WOODSHOP TEACHER-BC Primary Care Provider Miguel Taylor MD Primary Care Provider Encounter Details Date Type Department Care Team (Late st Contact Info) Description 08/20/2022 [employer] Message [address] [address] La Nena Ferro, TECH ED/WOODSHOP TEACHER-BC Bleeding/ pain/ symptoms of passing out Social History Tobacco Use Types Packs/Day Years Used Date Smoking Tobacco: Never Smokeless Tobacco: Never Alcohol Use Standard Drinks/Week Comments Never 0 (1 standard drink = 0.6 oz pur e alcohol) PHQ-2 Answer Date Recorded Patient Health Questionnaire-2 Score 0 08/13/2022 Comments Yes Sex and Gender Information Value Date Recorded Sex Assigned at Not on file Legal Sex Female 5:47 PM CDT Gender Identity Not on file Sexual Orientation Not on file COVID-19 Exposure Response Date Recorded In the last 10 days, have yo u been in contact with someone who was confirmed or suspected to have Coronavirus/COVID-19? No / Unsure 08/13/2022 2:49 PM CDT documented as of this encounter Plan of Treatment Not on file documented as of this encounter Visit Diagnoses Not on filedocumented in this encounter Additional Health Concerns Assessment Noted Time PHQ-9 Depression Total Score: 16 022 10:37 AM CDT documented as of this encounter Care Teams Gift Consultant Relationship Specialty Start Date End Date La Nena Ferro, TECH ED/WOODSHOP TEACHER-BC PCP - General Nurse Practitioner Family 06/20/22 3 Miguel Mancuso MD [address] [place] [address] PCP - General FAMILY PRACTICE 10/12/22 documented as of this encounter
--- OUTSIDE RECORDS SUMMARY | 2024-03-15 14:33 | XMS_ITS | Encounter Summary ---
Author Organization [facility] Address [address] [place] [address]. [place], [place] [id number] [place] [address] Care Team Providers Care Sales Team Recruiter Name Role Phone La Nena Ferro ANIMAL SURGEON-BC Primary Care Provider Miguel Taylor MD Primary Care Provider [phone] Encounter Details Date Type Department Care Team (Latest Contact Info) Description 09/19/2022 [employer] Message [facility] [address] [place] [address] La Nena Ferro FNP-PATRICIA Letter for accommodations Social History Tobacco Use Types Packs/Day Years [...] documented as of this encounter Care Teams Sales Team Recruiter Relationship Specialty Start Date End Date La Nena Ferro FNP-PATRICIA PCP - General Nurse Practitioner Family 06/20/22 3 Miguel Mancuso MD [address] [place] [address] PCP - General FAMILY PRACTICE 10/12/22 documented as of this encounter
--- OUTSIDE RECORDS SUMMARY | 2024-03-15 14:33 | XMS_ITS | Encounter Summary ---
Author Organization [facility] Address [address] [place] [address]. [place], [place] [address] [place] [address] Care Team Providers Care Process Engineering Technician Name Role Phone Miguel Mancuso MD Primary Care Provider [phone] Encounter Details Date Type Department Care Team (Latest Contact Info) Description 12/09/2023 Travel Social History Tobacco Use Types Packs/Day Years Used Date Smoking Tobacco: Never Smokeless Tobacco: Never Alcohol Use Standard Drinks/Week Comments Never 0 (1 standard drink = 0.6 oz pur e alcohol) [facility] Utilities Answer Date Recorded In the [...] often do you attend chur ch or mandaeism services? Patient declined 02/13/2023 Do you belong to any clubs o r organizations such as mosque groups, unions, fraternal or athletic groups, or [...] Recorded Patient Health Questionnaire-2 Score 0 08/13/2022 [facility] - Occupational Stress Questionnaire Answer Date Recorded [...] No 02/13/2023 Housing Stability Vital Sign Answer Jeovn e Recorded In the last 12 months, [...] slept in a mcc (including now)? No 02/13/2023 Comments No Sex [...] documented as of this encounter Care Teams Process Engineering Technician Relationship Specialty Start Date End Date Miguel Mancuso MD [address] [place] [phone] PCP - General FAMILY PRACTICE 10/12/22 documented as of this encounter
--- OUTSIDE RECORDS SUMMARY | 2024-03-15 14:33 | XMS_ITS | Encounter Summary ---
Author Organization [facility] Address [address] [place] [address]. [place], [place] [address] [place] [address] Care Team Providers Care Network Operations Center Technician Name Role Phone Miguel Mancuso MD Primary Care Provider [phone] Encounter Details Date Type Department Care Team (Latest Contact Info) Description 02/13/2023 Travel Social History Tobacco Use Types Packs/Day Years Used Date Smoking Tobacco: Never Smokeless Tobacco: Never Alcohol Use Standard Drinks/Week Comments Never 0 (1 standard drink = 0.6 oz pur e alcohol) [facility] Utilities Answer Date Recorded In the [...] often do you attend chur ch or anglican services? Patient declined 02/13/2023 Do you belong to any clubs o r organizations such as jewish groups, unions, fraternal or athletic groups, or [...] Patient Health Questionnaire-2 Score 0 08/13/2022 [facility] - Occupational Stress Questionnaire Answer Date [...] place to sleep or slept in a retirement (including now)? No 02/13/2023 Comments No Sex and Gender Information Value Date Recorded Sex Assigned at Not on file Legal Sex Female 5:47 PM CDT Gender Identity Not on file Sexual Orientation Not on file documented as of this encounter Functional Status * Question Answer Date of Assessment Author Status Do you have serious difficulty walking or climbing stairs? No 02/13/2023 6:35 AM Ata Lau RN Acti ve * Question Answer Date of Assessment Author Status Do you have difficulty dressing or bathing? No 02/13/2023 6:35 AM Ata Lau RN Active Because of a physical, mental, or emotional condition, do you have difficulty doing errands alone such as visiting a doctor's office or shopping? No 02/13/2023 6:35 AM Kasey Lau RN Active * Are you deaf or do you have serious difficulty hearing Answer Date of Assessment Author Status No 02/13/2023 6:35 AM Ata Lau R Sarahi Active * Are you blind or do you have serious difficulty seeing, even when wearing glasses? Answer Date of Assessment Author Status No 02/13/2023 6:35 AM Ata Lau R Sarahi Active * Do you have serious difficulty [...] as of this encounter Mental Status * Question Answer Entry Date Author Status Because of a physical, mental, or emotional condition, do you have serious difficulty concentrating, remembering, or making decisions? No 02/13/2023 6:35 AM Ata Lau, RN Active * Because of a physical, mental, [...] documented as of this encounter Care Teams Network Operations Center Technician Relationship Specialty Start Date End Date Miguel Mancuso MD [address] [place] [address] PCP - General FAMILY PRACTICE 10/12/22 documented as of this encounter
--- OUTSIDE RECORDS SUMMARY | 2024-03-15 14:33 | XMS_ITS | Encounter Summary ---
Author Organization [facility] Address [address] [place] [address]. [place], [place] [address] [place] [address] Care Team Providers Care Residency Director Name Role Phone La Nena Ferro RN UTILIZATION MANAGEMENT UM-BC Primary Care Provider Miguel Taylor MD Primary Care Provider [phone] Encounter Details Date Type Department Care Team (Latest Contact Info) Description 08/17/2022 [employer] Message [address] [address] La Nena Ferro, RN UTILIZATION MANAGEMENT UM-BC Preeclampsia or HELLP syndrome Social History Tobacco Use Types Packs/Day Years [...] documented as of this encounter Care Teams Residency Director Relationship Specialty Start Date End Date La Nena Ferro RN UTILIZATION MANAGEMENT UM-BC PCP - General Nurse Practitioner Family 06/20/22 3 Miguel Mancuso MD [address] [place] [address] PCP - General FAMILY PRACTICE 10/12/22 documented as of this encounter
--- OUTSIDE RECORDS SUMMARY | 2024-03-15 14:33 | XMS_ITS | Encounter Summary ---
Author Organization [facility] Address [address] [place] [address]. [place], [place] [address] [place] [address] Care Team Providers Care Sheet Ironworker Name Role Phone La Nena Ferro [facility] Primary Care Provider Miguel Taylor MD Primary Care Provider [phone] Encounter Details Date Type Department Care Team (Late st Contact Info) Description 09/19/2022 MyChart Message [facility] [address] [place], [place] [address] [place] Provider Air Quality Message Social History Tobacco Use Types Packs/Day Years [...] documented as of this encounter Care Teams Sheet Ironworker Relationship Specialty Start Date End Date La Nena Ferro FNP- PCP - General Nurse Practitioner Family 06/20/22 3 Miguel Mancuso MD [address] [place] [address] PCP - General FAMILY PRACTICE 10/12/22 documented as of this encounter
--- OUTSIDE RECORDS SUMMARY | 2024-03-15 14:33 | XMS_ITS | Encounter Summary ---
Author Organization [facility] Address [address] [place] [address]. [place], [place] [id number] [place] [id number] Care Team Providers Care Cyber Defense Incident Responder Name Role Phone Zack Mancuso MD Primary Care Provider [phone] Reason for Visit * Reason Comments Vaginal Bleeding Encounter Details Date Type Department Care Team ([facility] st Contact Info) Description 02/18/2023 8:32 PM AGRICULTURAL CHEMICALS INSPECTOR - 02/18/2023 8:45 PM [facility] Emergency [facility] [place] [address] Ese Amador PA [address] [place] [id number] Vaginal Bleeding Discharge Disposition: Left Against Medical Advice Social History Tobacco Use Types Packs/Day Years Used Date Smoking Tobacco: Never Smokeless Tobacco: Never Alcohol Use Standard Drinks/Week Comments Never 0 (1 standard drink = 0.6 oz pur e alcohol) [facility] Utilities Answer Date Recorded In the past 12 months has [employer] gas, oil, or [employer] threatened to shut off services in your [...] 02/13/2023 How often do you attend chur or jehovah's witness services? Patient declined 02/13/2023 Do you belong to any clubs o r organizations such as druze groups, unions, fraternal or athletic groups, or [...] Recorded Patient Health Questionnaire-2 Score 0 08/13/2022 [facility] - Occupational Stress [...] place to sleep or slept in a [place] health care facility (including now)? No 02/13/2023 Comments No Sex and Gender Information Value Date Recorded Sex Assigned at Not on file Legal Sex Female 5:47 PM CDT Gender Identity Not on file Sexual Orientation Not on file documented as of this encounter Last Filed Vital Signs Vital Sign Reading Time Taken Comments Blood Pressure 136/95 02/18/2023 7:41 PM AGRICULTURAL CHEMICALS INSPECTOR Pulse 85 02/18/2023 7:41 PM AGRICULTURAL CHEMICALS INSPECTOR Temperature 36.8 ??C (98.3 ??F) 02/18/2023 7:41 PM CS T Respiratory Rate 18 02/18/2023 7:41 PM AGRICULTURAL CHEMICALS INSPECTOR Oxygen Saturation 100% 02/18/2023 7:41 PM AGRICULTURAL CHEMICALS INSPECTOR Inhaled Oxygen Concentration - - Weight 59 kg (130 lb) 02/18/2023 7:41 PM AGRICULTURAL CHEMICALS INSPECTOR Height 160 cm (5' 3 ) 02/18/2023 7:41 PM AGRICULTURAL CHEMICALS INSPECTOR Body Mass Index 23.03 02/18/2023 7:41 PM AGRICULTURAL CHEMICALS INSPECTOR documented in this encounter Functional Status * Are you deaf or do you have serious difficulty hearing Answer Date of Assessment Author Status No 02/13/2023 6:35 AM AGRICULTURAL CHEMICALS INSPECTOR Ata Avendano R N Active * Are you blind [...] R N Active documented in this encounter Medications at Time of Discharge benzocaine-menth ol (DERMOPLAST) 20-0.5 % Aerosol Apply 1 spray topically 4 (four) times daily as needed (Perineal discomfort). 78 g 02/14/2023 docusate sodium (COLACE) 100 MG capsule Take 1 capsule (100 mg total) by mouth 2 (two) times daily as needed for Constipation. 30 capsule 02/14/2023 ferrous fumarate 324 mg 324 (106 Fe) MG Tab tablet Take 1 tablet by mouth daily. 90 tablet 02/14/2023 ibuprofen (MOTRIN) 600 MG tablet Take 1 tablet (600 mg total) by mouth every 6 (six) hours as needed. 90 tablet 02/14/2023 methylPREDNISolo isa BOBBY, (MEDROL DOSEPAK) 4 MG tablet Take as directed on package 02/10/2023 VITAMINS 28-0.8 MG tablet Take 1 tablet by mouth nightly at bedtime. at bedtime 07/02/2022 albuterol sulfate HFA 108 (90 Base) MCG/ACT inhaler Inhale 2 puffs into the lungs. 02/10/2023 02/10/20 24 hydrocortisone (ANUSOL-HC) [address] 1 suppository (25 mg total) rectally 2 (two) times daily as needed for Hemorrhoids (Do not give if 3rd or 4th degree laceration.). 20 suppository 02/14/2023 02/25/20 documented as of this encounter ED Notes * MEME Sanchez - 02/18/2023 7:41 PM CST [place], [place] EMERGENCY DEPARTMENT ENCOUNTER HISTORICAL INFORMATION Primary Care Doctor: ZACK MANCUSO MD Patient information was obtained primarily from the patient, nursing notes. History/Exam limitations: None Provider at Bedside Date/Time Event User Comments 02/18/231938 Provider at Bedside Assessing Patient ESE AMADOR -- CHIEF COMPLAINT Vaginal Bleeding Chief Complaint Patient presents with Vaginal Bleeding HPI Mariam Lea is a 22-year-old female who presents baseball sized blood clots after having uncomplicated vaginal delivery on 02/13. . Reports needing pitocin after delivery d/t heavy bleeding. H/o anemia. Denies fevers. PAST MEDICAL HISTORY Past Medical History: Diagnosis Date Asthma Bilateral ovarian cysts Depression History of suicidal ideation Major depression in full remission ([facility]) 10/14/2014 Mass of right breast 07/10/2012 Menorrhagia 10/14/2014 Poor growth affecting management of mother in third trimester ([facility]) 10/11/2017 PTSD (post-traumatic stress disorder) Short interval between pregnancies affecting , antepartum ([facility]) 10/11/2017 Vitamin D deficiency SURGICAL HISTORY Past Surgical History: Procedure Laterality Date ADENOIDECTOMY BREAST SURGERY Bilateral with implants TONSILLECTOMY CURRENT MEDICATIONS Current Facility-Administered Medications: sodium chloride 0.9% bolus infusion 1,000 mL, 1,000 mL, Intravenous, Once, MEME Sanchez Current Outpatient Medications: albuterol sulfate HFA 108 (90 Base) MCG/ACT inhaler, Inhale 2 puffs into the lungs., Disp: , Rfl: benzocaine-menthol (DERMOPLAST) 20-0.5 % Aerosol, Apply 1 spray topically 4 (four) times daily as needed (Perineal discomfort)., Disp: 78 g, Rfl: 0 docusate sodium (COLACE) 100 MG capsule, Take 1 capsule (100 mg total) by mouth 2 (two) times dailyas needed for Constipation., Disp: 30 capsule, Rfl: 0 ferrous fumarate 324 mg 324 (106 Fe) MG Tab tablet, Take 1 tablet by mouth daily., Disp: 90 tablet,Rfl: 0 hydrocortisone (ANUSOL-HC) 25 MG suppository, Place 1 suppository (25 mg total) rectally 2 (two) times daily as needed for Hemorrhoids (Do not give if 3rd or 4th degree laceration.)., Disp: 20 suppository, Rfl: 0 ibuprofen (MOTRIN) 600 MG tablet, Take 1 tablet (600 mg total) by mouth every 6 (six) hours as needed., Disp: 90 tablet, Rfl: 0 methylPREDNISolone, BOBBY, (MEDROL DOSEPAK) 4 MG tablet, Take as directed on package, Disp: , Rfl: VITAMINS 28-0.8 MG tablet, Take 1 tablet by mouth nightly at bedtime. at bedtime, Disp: , Rfl: ALLERGIES Review of patient's allergies indicates: Allergen Reactions Ciprofloxacin Other (see comment) and Shortness of Breath Pt states I can't breath Covid-19 (Adenovirus) Vaccine Throat swelling Pt reported throat had feeling of closing off after last 2 vaccines. Levofloxacin Rash FAMILY HISTORY Family History Problem Relation Name Age of Onset Depression Mother Asthma Sister twin Epilepsy Sister Hypotension Maternal Grandmother Diabetes Maternal Grandmother Epilepsy Maternal Grandmother Hypertension Maternal Grandfather Diabetes Maternal Grandfather Epilepsy Paternal Grandmother SOCIAL HISTORY Social History Socioeconomic History Marital status: Tobacco Use Smoking status: Never Smokeless tobacco: Never Vaping Use Vaping Use: Never used Substance and Sexual Activity Alcohol use: Never Drug use: Never Sexual activity: Yes Partners: Male control/protection: None Social Determinants of Health Financial Resource Strain: Low Risk (02/13/2023) Overall Financial Resource Strain (CARDIA) Difficulty of Paying Living Expenses: Not very hard Food Insecurity: No Food Insecurity (02/13/2023) Hunger Vital Sign Worried About Running Out of Food in the Last Year: Never true Ran Out of Food in the Last Year: Never true Transportation Needs: No Transportation Needs (02/13/2023) PRAPARE - Transportation Lack of Transportation (Medical): No Lack of Transportation (Non-Medical): No Physical Activity: Insufficiently Active (02/13/2023) Exercise Vital Sign Days of Exercise per Week: 3 days Minutes of Exercise per Session: 30 min Stress: No Stress Concern Present (02/13/2023) [facility] - Occupational Stress Questionnaire Feeling of Stress : Not at all Social Connections: Unknown (02/13/2023) Social Connection and Isolation Panel [NHANES] Frequency of Communication with Friends and Family: More than three times a week Frequency of Social Gatherings with Friends and Family: Twice a week Attends Christianity Services: Patient declined Active Member of Clubs or Organizations: No Attends Club or Organization Meetings: Never Marital Status: Intimate Partner Violence: Not At Risk (02/13/2023) Humiliation, Afraid, Rape, and Kick questionnaire Fear of Current or Ex-Partner: No Emotionally Abused: No Physically Abused: No Sexually Abused: No Housing Stability: Low Risk (02/13/2023) Housing Stability Vital Sign Unable to Pay for Housing in the Last Year: No Number of Places Lived in the Last Year: 1 Unstable Housing in the Last Year: No REVIEW OF SYMPTOMS provided by: Patient General: No chills, fever, fatigue. Skin: No rashes. No erythema or edema. Respiratory: No cough. No shortness of breath. Cardiac: No chest pain. No palpitations. GI: No nausea, vomiting, or diarrhea. : No dysuria or hematuria. + vaginal bleeding MSK: No joint pain. No back or neck pain. Neuro: No headache. No dizziness or weakness. No slurred speech. No facial droop Physical Exam VITAL SIGNS: Filed Vitals: 02/18/231940 BP: (!) 136/95 Pulse: 85 Resp: 18 Temp: 98.3 ??F (36.8 ??C) TempSrc: Skin SpO2: 100% Weight: 59 kg (130 lb) Height: 1.6 m (5' 3 ) General: Awake and alert. Well nourished. Non-toxic appearing. No acute distress Head: Normocephalic. Atraumatic. Skin: Pale. Warm, dry. Good skin turgor. No visible rashes Eyes: Sclera normal. Conjunctiva normal. Lids and lashes normal. Lens normal. EOMs within normal limit. Ears: Normal external canals bilaterally. Hearing intact. Nose: Nose normal. No active discharge Oropharynx: Voice normal. Lips normal. Oral mucosa is pink and moist. Respiratory: No respiratory distress. CTA in all lung tellez. Cardiac: Normal rate, normal rhythm. No murmurs. Abdominal: Soft, non-distended. Mild diffuse tenderness without guarding or distention. No palpablemasses. MSK: ROM normal. No obvious deformities Neuro: AOX3. Answers all questions appropriately. Speech is normal. Mood/affect: mood/affect normal. Behavior normal. [facility] ED Course as of 02/18/232038 Mon Feb 18, 20232038 Patient left AMA. I was unable to talk to patient before she left. AMA forms signed. She was counseled on risks of leaving by nursing staff. [AP] ED Course User Index [AP] MEME Sanchez Amount and/or Complexity of Data Reviewed Source of information/historian: Patient Review of internal medical records with patient's permission Impression/Disposition No diagnosis found. Disposition: AMA Medications sodium chloride 0.9% bolus infusion 1,000 mL (has no administration in time range) Current Discharge Medication List MEME SANCHEZ Disclaimer: Portions of this note were created using [employer], a speech recognition software. Occasional wrong word or sound alike substitutions may have occurred due to the inherent limitations of voice recognition software. Please read the note carefully and use context to recognize when substitutions may have occurred. MEME Sanchez 02/18/232038 Cosigned by Prisca Cartagena MD at 02/18/2023 9:51 PM AGRICULTURAL CHEMICALS INSPECTOR CULTURAL CHEMICALS INSPECTOR CULTURAL CHEMICALS INSPECTOR * Sharif Weems RN - 02/18/2023 7:40 PM CST Pt to ed with c/o vaginal bleeding. States had vaginal delivery on 02/13/23. Reports has been passing large clots since. Pt a&ox4. CULTURAL CHEMICALS INSPECTOR documented in this encounter Plan of Treatment Not on file documented as of this encounter Visit Diagnoses Not on filedocumented in this encounter Active and Recently Administered Medications Times are shown in AGRICULTURAL CHEMICALS INSPECTOR. Scheduled Medication Order 02/16/2023 02/17/2023 02/18/2023 sodium chloride 0.9% bolus infusion 1,000 mL 1,000 mL, Intravenous, Administer over 60 Minutes, Once, 1 dose, On 02/18/23 at 1945 1945 (Canceled Entry - Provider: Automatic Discharge Provider - Comment: Automatically canceled at discontinue of medication order) documented in this encounter Additional Health Concerns Assessment Noted Time PHQ-9 Depression Total Score: 16 022 10:37 AM CDT documented as of this encounter Care Teams Cyber Defense Incident Responder Relationship Specialty Start Date End Date Zack Mancuso MD [address] [place] [id number] PCP - General FAMILY PRACTICE 10/12/22 documented as of this encounter
--- OUTSIDE RECORDS SUMMARY | 2024-03-15 14:33 | XMS_ITS | Encounter Summary ---
Author Organization [facility] Address [address] [place] [address]. [place], [place] [id number] [place] [id number] Care Team Providers Care Electronics System Mechanic Name Role Phone Miguel Mancuso MD Primary Care Provider [phone] Reason for Visit * Auth/Cert (Routine) Specialty Diagnoses / Procedures Referred By Contac t Referred To Contact Diagnoses (HHS/HCC) ([facility]/HCC) Procedures NONE Zachery Sullivan MD [address] [place] [address] Phone: tel: fax: Referral ID Status Reason Start Date Expiration Date Visits Re quested Visits Authorized [id number] 1 1 Encounter Details Date Type Department Care Team (Late st Contact Info) Description 02/13/2023 9:25 AM ASSISTANT CHIEF NURSING OFFICER Anesthesia Event [facility] Labor [place] [address] Crystal Joya CRNA [address] [place] [address] Anesthesia Record Procedure Summary Procedure Name Responsible Anesthesiologist Anesthesia Start Time Anesthesia Stop Time LABOR EPIDURAL 02/13/23 0925 02/13/23 135 1 Events Date Time Event Comment 02/13/2023 0904 Floor Procedure Patient neville t and labs reviewed. Patient assessed. Lumbar labor epidural risks and benefits discussed with the patient and significant other. Epidural medications discussed by provider and approved by patient. These medications are including but not limited to: local anesthetics, opioids and vasoactive medications. All patient/ family questions answered. Informed consent obtained for placement of lumbar epidural for labor analgesia. 0908 0925 Epidural Start 0925 An Start Patient ID and consent checked and patient reassessed. 0935 Quick Note Patient is comf ortable resting in bed with the head of bed elevated greater than 30 degrees and left uterine displacement, the call light is in reach. Patient education has been provided regarding the following, labor epidural analgesic expectations throughout the labor and delivery progression, the use of the PCEA system, restrictions for a clear liquid diet only and no ambulation. All patient and patient guest questions were answered. Continuing to monitor. 0940 Quick Note Bolus dose admi nistered; awaiting pharmacy to restock epidural infusate 1010 Quick Note Epidural infusi on initiated after negative aspiration of epidural catheter and attachment of epidural tubing. Epidural infusion pump programmed at 12ml/hr with a demand bolus of 6ml available every 20 minutes. Patient education provided, nodded understanding appropriately, all questions were answered. 1015 An Epidural Placement Comple te Patient is comfortable resting in bed with the head of bed elevated greater than 30 degrees and left uterine displacement, the call light is in reach. Patient education has been provided regarding the following, labor epidural analgesic expectations throughout the labor and delivery progression, the use of the PCEA system, restrictions for a clear liquid diet only and no ambulation. All patient and patient guest questions were answered. Continuing to monitor. 1351 Baby Delivered 1351 An Stop Meds Name Total lidocaine 1.5%-EPINEPHrine 1:200,000 inj ection 5 mL lidocaine (PF) (XYLOCAINE) 1% injection 50 mg fentaNYL 2 mcg/mL-BUpivacaine 0.125 % 15 0 mL epidural 36.83 mL * Agents No agents on file. * Blood No blood administrations on file. Lines, Drains, and Airways Type Details Placement Removal Peripheral IV Placement Date: 01/24 05/17; Placement Time: 0635; Placed Outside of This Facility?: No; Orientation: Distal, Left, Posterior; Location: Forearm; Site Prep: Alcohol; Local Anesthetic: None; Inserted By: Leonor Ratliff; Insertion attempts: 2; Ultrasound-guided Placement?: No; Patient Tolerance: Tolerated well; Removal Date: 02/14/23; Removal Time: 1500; Removal Reason: Patient Discharged 02/13/23 0635 by Ata Avendano RN 02/14/23 1500 by Brenda Leong RN Darden Catheter 02/13/23; 1033; No; Urologic Surgical intervention - Bladder, Prostate, ARCADE TECHNICIAN procedures; 1; Hand hygiene performed, Site cleansed with sterile antiseptic, Sterile gloves, drape and lubricant used, Catheter inserted using aseptic technique, Darden care post catheter insertion, Anchoring device applied, Drainage bag secured below level of bladder, Closed system maintained; Stat lock; Double-lumen, Latex; 14 Fr.; Per Protocol 02/13/23 1033 by Shade Suarez RN 02/13/23 1342 by Shade Suarez RN Epidural Placement Date: 01/24 05/17; Placement Time: 1255 (created via procedure documentation); Placement Location: Lumbar; MRI Compatible: MRI UNSAFE ([id number]); Removal Date: 02/13/23; Removal Time: 164902/13/23 1255 by Crystal Joya CRNA 02/13/23 1650 by Lluvia Morley RN documented in this encounter Social History Tobacco Use Types Packs/Day Years Used Date Smoking Tobacco: Never Smokeless Tobacco: Never Alcohol Use Standard Drinks/Week Comments Never 0 (1 standard drink = 0.6 oz pur e alcohol) [facility] [employer] Answer Date Recorded In the past 12 months has [employer], gas, oil, or water [employer] threatened to shut off services in your [...] How often do you attend chur or jainism services? Patient declined 02/13/2023 Do you belong to any clubs o r organizations such as bahai groups, unions, fraternal or athletic groups, or [...] Recorded Patient Health Questionnaire-2 Score 0 08/13/2022 [facility] of Occupat ional Health - Occupational [...] place to sleep or slept in a fpc (including now)? No 02/13/2023 Comments No Sex [...] No 02/13/2023 6:35 AM Ata Lau, R Sarahi Active * Are you blind [...] or making decisions? No 02/13/2023 6:35 AM ASSISTANT CHIEF NURSING OFFICER Ata Avednano, RN Active * Because of a physical, mental, or emotional condition, do you have serious difficulty concentrating, remembering, or making decisions? Answer Entry Date Author Status No 02/13/2023 6:35 AM Ata Lau R N Active documented in this encounter OR Notes * Anesthesia Postprocedure Evaluation - Venancio Ardon CRNA - 02/14/2023 9:15 AM CST Anesthesia Post-op Note Mariam Lea Procedure(s): LABOR EPIDURAL Anesthesia type: epidural Vitals: 02/14/23202 BP: 95/59 Vitals: 02/14/23202 Pulse: (!) 56 Vitals: 02/14/23202 Resp: 16 Vitals: 02/14/23202 Temp: 36.5 ??C Vitals: 02/14/23202 SpO2: 99% Patient Location: Labor & Delivery Level of Consciousness: awake, alert and oriented Pain Management: adequate analgesia Airway Patency: patent Respiratory Status: acceptable Cardiovascular Status: acceptable Post-Op Nausea: none Postoperative Hydration: euvolemic Comments: No complaints of headache or paresthesia No notable events documented. STANT CHIEF NURSING OFFICER * Anesthesia Procedure Notes - Crystal Joya CRNA - 02/13/2023 12:54 PM ASSISTANT CHIEF NURSING OFFICER Associated Order(s): Labor Epidural Epidural: Procedure Start: 02/13/2023 9:25 AM Procedure Stop: 02/13/2023 9:35 AM Patient location during procedure: OB Reason for block: labor epidural Preanesthetic Checklist Completed: patient identified, consent, pre-op evaluation, timeout performed, IV checked, risks andbenefits discussed and monitors and equipment checked Procedure Information: Patient position: sitting Prep: site prepped and draped and chlorhexidine Patient monitoring: continuous pulse oximetry and non-invasive blood pressure Approach: midline Location: L3-L4 Injection technique: LUIS ALBERTO saline Placement Location: lumbar Ultrasound-guided Placement: No Needle and Catheter: MRI Compatible: MRI UNSAFE ([id number]) Needle type: Tuohy Needle gauge: 17 G Needle length: 3.5 in Needle insertion depth: 5 cm Catheter type: side hole Catheter size: 19 G Catheter at skin depth: 10 cm Test dose: negative and lidocaine 1.5% with epinephrine 1-to-200,000 Needle attempts: 1 Assessment Sensory level: T10 Additional Notes LOT: [id number] EXP: 2024-02-22 STANT CHIEF NURSING OFFICER * Anesthesia Preprocedure Evaluation - Crystal Joya CRNA - 02/13/2023 9:06 AM CST Anesthesia ROS/MED History Reviewed: Patient summary , Nursing notes , Family history anesthesia, Anesthesia history , Medications , Labs , Images/Studies Pre-Anesthetic State: alert, awake and responds appropriately Pulmonary (+) asthma (02/10/23 started methylpred dose pack for viral URI), (occasional) Cardiovascular neg cardio ROS Exercise tolerance:poor Neuro/Psych (+) depression Substance Use no history of substance abuse GI/Hepatic/Renal neg GI/hepatic/renal ROS Endo/Other (+) blood dyscrasia, (Anemia) GENERAL COMMENTS -- Ciprofloxacin -- Other (see comment) and Shortness of Breath -- Pt states I can't breath -- Covid-19 (Adenovirus) Vaccine -- Throat swelling -- Pt reported throat had feeling of closing off after last 2 vaccines. 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 (CMS/HCC) 07/10/2012: Mass of right breast 10/14/2014: Menorrhagia 10/11/2017: Poor growth affecting management of mother in third trimester ([facility]/HCC) No date: PTSD (post-traumatic stress disorder) 10/11/2017: Short interval between pregnancies affecting , antepartum (HHS/HCC) No date: Vitamin D deficiency Past Surgical History: No date: ADENOIDECTOMY No date: BREAST SURGERY; Bilateral Comment: with implants No date: TONSILLECTOMY NPO Status: Physical Evaluation Airway Mallampati: II TM Distance: >3 FB Neck ROM: normal Dental No notable dental history Pulmonary Pulmonary exam normal Breath sounds clear to auscultation Cardiovascular Rate: normal Cardiovascular exam normal Other findings: Blood pressure 125/86, pulse 83, temperature 36.6 ??C, temperature source Axillary,resp. rate 16, height 1.6 m (5' 3 ), weight 65.8 kg (145 lb). 02/13/23 0630 WBC 10.8 RBC 4.37 HGB 10.0* HCT 33.1* PLT 194 STOP-Bang Assessment: Do you snore loudly?: 0 Do you often feel tired or fatigued after your sleep?: 0 Has anyone ever observed you stop breathing in your sleep?: 0 Do you have or are you being treated for high blood pressure?: 0 Recent BMI (Calculated): 19.7 Is BMI greater than 35 kg/m2?: 0=No Age older than 50 years old?: 0=No Is your neck circumference greater than 17 inches (Male) or 16 inches (Female)?: 0 Gender - Male: 0=No STOP-Bang Total Score: 0 Anesthesia Plan ASA 2 Induction Anesthesia type: epidural Risks and benefits discussed with patient. Patient verbalized an understanding of the information presented and wishes to proceed. Questions answered. Patient consented. Informed Consent Anesthetic plan and risks discussed with patient of whom consent was obtained. Use of blood products discussed with patient of whom consent was obtained. . STANT CHIEF NURSING OFFICER documented in this encounter Plan of Treatment Not on file documented as of this encounter Procedures Procedure Name Priority Date/Time Associated Diagnosis Comments LABOR EPIDURAL Routine 02/13/2023 12:54 PM ASSISTANT CHIEF NURSING OFFICER documented in this encounter Results * LABOR EPIDURAL (02/13/2023 12:54 PM ASSISTANT CHIEF NURSING OFFICER) Crystal Willoughby CRNA - 02/13/2023 12:54 PM ASSISTANT CHIEF NURSING OFFICER Crystal Joya CRNA ? 02/13/2023 12:55 PM Epidural: Procedure Start: ??02/13/2023 9:25 AM Procedure Stop: 02/13/2023 9:35 AM Patient location during procedure: OB Reason for block: labor epidural Preanesthetic Checklist Completed: patient identified, consent, pre-op evaluation, timeout performed, IV checked, risks and benefits discussed and monitors and equipment checked Procedure Information: Patient position: sitting Prep: site prepped and draped and chlorhexidine Patient monitoring: continuous pulse oximetry and non-invasive blood pressure Approach: midline Location: L3-L4 Injection technique: LUIS ALBERTO saline Placement Location: ??lumbar Ultrasound-guided Placement: ??No Needle and Catheter: MRI Compatible: MRI UNSAFE ([id number]) Needle type: Tuohy Needle gauge: 17 G Needle length: 3.5 in Needle insertion depth: 5 cm Catheter type: side hole Catheter size: 19 G Catheter at skin depth: 10 cm Test dose: negative and lidocaine 1.5% with epinephrine 1-to-200,000 Needle attempts: ??1 Assessment Sensory level: T10 Additional Notes LOT: [id number] EXP: 2024-02-22 Crystal Joya PARENT EDUCATOR GA ANESTHESIA Final Result documented in this encounter Visit Diagnoses Not on filedocumented in this encounter Administered Medications Inactive Administered Medications - up to 3 most recent administrations Medication Order MAR Action Action Date Dose Rate Site fentaNYL 2 mcg/mL-BUpivacaine 0.125 % 150 mL epidural 10 mL/hr, Epidural, Continuous, Starting on Sat02/13/23 at 0930, Until Sat02/13/23 at 1549, Continuous Epidural Infusion with Patient Controlled Epidural Analgesia (PCEA) BASAL INFUSION RATE: 10 mL/hr (20 mcg/hr) PCEA DEMAND DOSE: 5 mL (10 mcg) LOCKOUT INTERVAL: 20 minutes MAX DOSE LOCKOUT: 80 mL / 4 hours *High Alert*, Pre-Delivery New Bag 02/13/2023 10:10 AM ASSISTANT CHIEF NURSING OFFICER 10 mL/hr 10 mL/hr lidocaine (PF) (XYLOCAINE) 1 % injection Infiltration, PRN, Starting on Sat02/13/23 at 0929, Until Sat02/13/23 at 1458, Anesthesia Intra-Op Given 02/13/2023 9:40 AM ASSISTANT CHIEF NURSING OFFICER 20 mg Given 02/13/2023 9:29 AM ASSISTANT CHIEF NURSING OFFICER 30 mg lidocaine-EPINEPHrine 1.5 %-[id number] injection Epidural, PRN, Starting on Sat02/13/23 at 0935, Until Sat02/13/23 at 1458, Anesthesia Intra-Op Given 02/13/2023 9:40 AM ASSISTANT CHIEF NURSING OFFICER 2 mLs Given 02/13/2023 9:35 AM ASSISTANT CHIEF NURSING OFFICER 3 mLs documented in this encounter Additional Health Concerns Assessment Noted Time PHQ-9 Depression Total Score: 16 022 10:37 AM CDT documented as of this encounter Care Teams Electronics System Mechanic Relationship Specialty Start Date End Date Miguel Mancuso MD [address] [place] [id number] PCP - General FAMILY PRACTICE 10/12/22 documented as of this encounter
--- OUTSIDE RECORDS SUMMARY | 2024-03-15 14:33 | XMS_ITS | Encounter Summary ---
Author Organization [facility] Address [address] [place] [address]. [place], [place] [id number] [place] [id number] Care Team Providers Care Chief Of Safety And Protection Name Role Phone Zack Mancuso MD Primary Care Provider [phone] Reason for Visit * Reason Comments Contractions * Auth/Cert (Routine) Specialty Diagnoses / Procedures Referred By Contac t Referred To Contact Diagnoses (HHS/HCC) (HHS/HCC) Procedures NONE Bert Oliver MD [address] [place] [address] Phone: tel: fax: Referral ID Status Reason Start Date Expiration Date Visits Re quested Visits Authorized [id number] 1 1 Encounter Details Date Type Department Care Team (Latest Contact Info) Description 02/13/2023 5:42 AM [facility] - 02/14/2023 3:10 PM [facility] Hospital Encounter [facility] Women and Infants [place], [place] [id number] Bert Oliver MD [address] [place], [place] [id number] Asia Dewey MD [address] [place] [address] (Contractions) Discharge Disposition: Home or Self Care (Routine Discharge) Social History Tobacco Use Types Packs/Day Years Used Date Smoking Tobacco: Never Smokeless Tobacco: Never Tobacco Cessation:Counseling Given: Not Answered Alcohol Use Standard Drinks/Week Comments Never 0 (1 standard drink = 0.6 oz pur e alcohol) [facility] Utilities Answer Date Recorded In the past 12 months has th e electric, gas, oil, or water company [...] How often do you attend chur or evangelical services? Patient declined 02/13/2023 Do you belong to any clubs o r organizations such as restorationism groups, unions, fraternal or athletic groups, or [...] Recorded Patient Health Questionnaire-2 Score 0 08/13/2022 [facility] - Occupational Stress Questionnaire Answer Date Recorded [...] place to sleep or slept in a group home (including now)? No 02/13/2023 Comments No Sex and Gender Information Value Date Recorded Sex Assigned at Not on file Legal Sex Female 5:47 PM CDT Gender Identity Not on file Sexual Orientation Not on file documented as of this encounter Last Filed Vital Signs Vital Sign Reading Time Taken Comments Blood Pressure 103/78 02/14/2023 8:30 AM CONSUMER BANKER Pulse 60 02/14/2023 8:30 AM CONSUMER BANKER Temperature 36.6 ??C (97.8 ??F) 02/14/2023 8:30 AM CS T Respiratory Rate 18 02/14/2023 8:30 AM CONSUMER BANKER Oxygen Saturation 99% 02/14/2023 8:30 AM CONSUMER BANKER Inhaled Oxygen Concentration - - Weight 65.8 kg (145 lb) 02/13/2023 6:39 AM CONSUMER BANKER Height 160 cm (5' 3 ) 02/13/2023 6:39 AM CONSUMER BANKER Body Mass Index 25.69 02/13/2023 6:39 AM CONSUMER BANKER documented in this encounter Functional Status * Question Answer [...] or making decisions? No 02/13/2023 6:35 AM CONSUMER BANKER Ata Avendano RN Active * Because of a physical, mental, or emotional condition, do you have serious difficulty concentrating, remembering, or making decisions? Answer Entry Date Author Status No 02/13/2023 6:35 AM Ata Lau R N Active documented in this encounter Discharge Summaries * Abdelrahman Wilson CNM - 02/14/2023 1:22 PM CST Images from the original note were not included. Patient ID: Diogenes Monet [id number] Admit date: 02/13/2023 Expected Discharge Date: 02/14/23 Admitting Physician: Asia Dewey MD Discharge Physician: ABDELRAHMAN WILSON CNM Discharge Diagnoses: S/P Vaginal Delivery Admission Condition: good Discharged Condition: good Indication for Admission: Patient was admitted for active labor at term. Hospital Course: uncomplicated hospital course She experienced a normal vaginal delivery without complication. Her course was uncomplicated. On PPD# 1 she was fully ambulatory, voiding without difficulty and her pain was controlled on po pain meds. She felt ready for discharge. Routine pp precautions and instructions were reviewed and all questions answered to her satisfaction. Consults: none Significant Diagnostic Studies: none Treatments: normal vaginal delivery Discharge Exam: Vitals: 02/14/23 0830 BP: 103/78 Pulse: 60 Resp: 18 Temp: 97.8 ??F (36.6 ??C) SpO2: 99% Physical Exam Vitals reviewed. Constitutional: Appearance: Normal appearance. She is well-developed. HENT: Head: Normocephalic and atraumatic. Cardiovascular: Rate and Rhythm: Normal rate and regular rhythm. Heart sounds: S1 normal and S2 normal. Pulmonary: Effort: Pulmonary effort is normal. Breath sounds: Normal breath sounds. Abdominal: General: Bowel sounds are normal. Palpations: Abdomen is soft. Tenderness: There is no abdominal tenderness. Skin: General: Skin is warm. Neurological: General: No focal deficit present. Mental Status: She is alert and oriented to person, place, and time. Deep Tendon Reflexes: Reflexes are normal and symmetric. Reflex Scores: Patellar reflexes are 2+ on the right side and 2+ on the left side. Psychiatric: Mood and Affect: Mood normal. Behavior: Behavior normal. Fundus: Firm; below umbilicus Lochia: Small to scant amounts Perineum: Intact. Extremities: Trace LE edema. Disposition: Home or Self Care (Routine Discharge) Patient Instructions: Medication List START taking these medications Morning Afternoon Evening Bedtime As Needed benzocaine-menthol 20-0.5 % Aero Commonly known as: DERMOPLAST Apply 1 spray topically 4 (four) times daily as needed (Perineal discomfort). Signed by: Abdelrahman Wilson CNM docusate sodium 100 MG capsule Commonly known as: COLACE Take 1 capsule (100 mg total) by mouth 2 (two) times daily as needed for Constipation. Last time this was given: 100 mg on February 14, 2023 9:48 AM Signed by: Abdelrahman Wilson CNM ferrous fumarate 324 mg 324 (106 Fe) MG Tabs tablet Take 1 tablet by mouth daily. Signed by: Abdelrahman Wilson CNM hydrocortisone 25 MG suppository Commonly known as: ANUSOL-HC Place 1 suppository (25 mg total) rectally 2 (two) times daily as needed for Hemorrhoids (Do not give if 3rd or 4th degree laceration.). Signed by: Abdelrahman Wilson CNM ibuprofen 600 MG tablet Commonly known as: MOTRIN Take 1 tablet (600 mg total) by mouth every 6 (six) hours as needed. Last time this was given: 600 mg on February 14, 2023 10:19 AM Signed by: Abdelrahman Wilson CNM CONTINUE taking these medications Morning Afternoon Evening Bedtime As Needed albuterol sulfate HFA 108 (90 Base) MCG/ACT inhaler Inhale 2 puffs into the lungs. methylPREDNISolone (BOBBY) 4 MG tablet Commonly known as: MEDROL DOSEPAK Take as directed on package 28-0.8 MG tablet Take 1 tablet by mouth nightly at bedtime. at bedtime Last time this was given: Ask your nurse or doctor Activity: no heavy lifting except baby, pushing, pulling for 6 weeks, nothing per vagina, no sexualintercourse for 6 weeks and no driving while on narcotics Diet: regular Iron deficiency anemia - iron supplementation for support Perineal care: use ice pack as needed, witch blas pads to perineum as needed. Follow-up with regular Internal Sales Engineer physician in 2 weeks for routine follow-up or sooner if experiencing problems. ABDELRAHMAN WILSON CNM UMER BANKER documented in this encounter Discharge Instructions * Attachments The following attachments cannot be sent through Care Everywhere. * Vaginal Delivery Discharge Instructions ([place]) documented in this encounter Medications at Time [...] hours as needed. 90 tablet 02/14/2023 methylPREDNISolo ne, BOBBY, (MEDROL DOSEPAK) 4 MG tablet Take as directed on package 02/10/2023 VITAMINS 28-0.8 MG tablet Take 1 tablet by mouth nightly at bedtime. at bedtime 07/02/2022 albuterol sulfate HFA 108 (90 Base) MCG/ACT inhaler Inhale 2 puffs into the lungs. 02/10/2023 02/10/20 hydrocortisone (ANUSOL-HC) [address] 1 suppository (25 mg total) rectally 2 (two) times daily as needed for Hemorrhoids (Do not give if 3rd or 4th degree laceration.). 20 suppository 02/14/2023 02/25/20 23 documented as of this encounter Progress Notes * Elayne Lucia RN - 02/14/2023 10:19 AM CST This note was copied from a baby's chart. round completed. Assisted mom with . She had been having issues with latching and pain. Observed mom and corrected positioning and latch. Assisted mom with getting more supportwith pillows and a blanket. Good latch/ suck. Mom stated that she was not having any pain with the latch for the first time. Showed mom how to hand express and how to properly break a latch when baby is nursing since she had just been pulling her off. Informed mom that it is normal to have some cramping with until her uterus goes back to the size it was before having the baby. V/U of all. Encouraged to take motrin for the cramping since she was concerned about the cramps as well. Time spent 25 min UMER BANKER UMER BANKER * Elayne Lucia RN - 02/14/2023 8:30 AM CST This note was copied from a baby's chart. round completed on mom. Mom had stated that she did not want to put the baby to the breast because she was sore and cracked. Examined breasts with permission and mom's. Her skin is intact at this time. Gave mom some comfort gels for her sore nipples and instructed her to hand express colostrum after nursing as well. Mom asked if she should nurse every 2-3 hours. Encouraged to feed on feeding cues. Also told mom to decrease nursing time from 30 min per breast to a max of 20 min per breast since she is very sore. V/U of all. Plan: Call for assistance when she is ready to feed baby again. Mom is willing to breastfeed and see if we can get a better latch. UMER BANKER UMER BANKER * Otilia Rivera RN - 02/13/2023 8:40 PM CST Problem: Discharge Planning Goal: Discharge to home Outcome: Progressing Goal: Knowledge of caring for self- Outcome: Progressing Problem: Safety Goal: Knowledge of Safety Outcome: Progressing Problem: Pain Goal: Knowledge of pain management Outcome: Progressing Problem: Feeding Your [place] Goal: Knowledge of Outcome: Progressing Goal: Knowledge of formula feeding Outcome: Progressing UMER BANKER * Shade Mathur RN - 02/13/2023 9:23 AM CST Problem: OB Discharge Planning- Risk Conditions Goal: Knowledge of discharge/instructions Outcome: Progressing Problem: OB Abnormal Blood Glucose Levels Goal: Glucose levels within specified parameters Outcome: Progressing Problem: OB Anxiety Goal: Alleviation of anxiety Outcome: Progressing Problem: OB Blood Pressure-Elevated Goal: Stable blood pressure Outcome: Progressing Goal: Absence of/or decrease in neurologic irritibility Outcome: Progressing Problem: OB Coping-Ineffective, Individual Goal: Effective coping Outcome: Progressing Problem: OB Hemodynamic Instability (Bleeding/Risk of) Goal: Hemodynamically stable Outcome: Progressing Problem: OB Infection, Risk of Goal: Free of infection Outcome: Progressing Problem: OB Mobility-Impaired Goal: Knowledge of prescribed activities Outcome: Progressing Goal: Intact skin Outcome: Progressing Problem: OB Nausea/Vomiting Goal: Absence of nausea and vomiting Outcome: Progressing Goal: Electrolytes within specified parameters Outcome: Progressing Problem: OB Pain-Acute Goal: Achieve acceptable pain level Outcome: Progressing UMER BANKER documented in this encounter H&P Notes * Vivi Peterson CNM - 02/13/2023 8:30 AM CSTSummary: labor admit History and Physical Diogenes Monet is a 22-year-old female with Estimated Date of Delivery: 02/22/23 at 38w5d weeks gestation who is being admitted for spontaneous active labor at term. movement: present Contractions: 3 in 10 minutes. Loss of fluid: Absent complications:none Induction documentation: presentation: vertex EFW: 3175 grams Medical factors/lab results complicating anesthesia choices: None Other special concerns: None Patient counseled on risks/benefits and consent signed: Yes OB History Para Term AB Living 2 SAB IAB Ectopic Molar Multiple Live Births # Outcome Date GA Lbr Wilber/2nd Weight Sex Delivery Anes PTL Lv 2 Current 1 Past Medical History: Diagnosis Date Asthma Bilateral ovarian cysts Depression History of suicidal ideation Major depression in full remission (CMS/HCC) 10/14/2014 Mass of right breast 07/10/2012 Menorrhagia 10/14/2014 Poor growth affecting management of mother in third trimester ([facility]) 10/11/2017 PTSD (post-traumatic stress disorder) Short interval between pregnancies affecting , antepartum ([facility]) 10/11/2017 Vitamin D deficiency Past Surgical History: Procedure Laterality Date ADENOIDECTOMY BREAST SURGERY Bilateral with implants TONSILLECTOMY Family History Problem Relation Name Age of Onset Depression Mother Asthma Sister twin Epilepsy Sister Hypotension Maternal Grandmother Diabetes Maternal Grandmother Epilepsy Maternal Grandmother Hypertension Maternal Grandfather Diabetes Maternal Grandfather Epilepsy Paternal Grandmother Social History Socioeconomic History Marital status: Spouse name: Not on file Number of children: Not on file Years of education: Not on file Highest education level: Not on file Occupational History Not on file Tobacco Use Smoking status: Never Smokeless tobacco: Never Vaping Use Vaping Use: Never used Substance and Sexual Activity Alcohol use: Never Drug use: Never Sexual activity: Yes Partners: Male control/protection: None Other Topics Concern Not on file Social History Narrative Not on file Social Determinants of Health Financial Resource Strain: Not on file Food Insecurity: Not on file Transportation Needs: Not on file Physical Activity: Not on file Stress: Not on file Social Connections: Not on file Intimate Partner Violence: Not on file Housing Stability: Not on file No current facility-administered medications on file prior to encounter. Current Outpatient Medications on File Prior to Encounter Medication Sig Dispense Refill albuterol sulfate HFA 108 (90 Base) MCG/ACT inhaler Inhale 2 puffs into the lungs. methylPREDNISolone, BOBBY, (MEDROL DOSEPAK) 4 MG tablet Take as directed on package VITAMINS 28-0.8 MG tablet Take 1 tablet by mouth nightly at bedtime. at bedtime Allergies Allergen Reactions Ciprofloxacin Other (see comment) and Shortness of Breath Pt states I can't breath Covid-19 (Adenovirus) Vaccine Throat swelling Pt reported throat had feeling of closing off after last 2 vaccines. Levofloxacin Rash ROS: Denies fever, chest pain, shortness of breath or leg pain. OBJECTIVE Vital signs in last 24 hours: Temp: [97.9 ??F (36.6 ??C)] 97.9 ??F (36.6 ??C) Pulse: [70-107] 71 Resp: [16] 16 BP: (119-125)/(80-86) 125/86 General: alert, appears stated age and cooperative Skin: normal and no rash or abnormalities HEENT: neck supple with midline trachea Lungs: clear to auscultation bilaterally Heart: regular rate and rhythm, S1, S2 normal, no murmur, click, rub or gallop Abdomen: soft, gravid; bowel sounds normal; no masses, no organomegaly Pelvis: Vulva appears normal. Presentations: vertex Cervix: Dilation: 5 /Effacement (%): 75 /Station: -3 Heart Tones: Baseline: 130 BPM , Variability: Moderate ( 6-25 bpm), Accelerations: Present (15x15 / >32weeks) , Decelerations: Absent Category 1 [place]: Contraction Frequency (min): 3-7 Labs: Results for orders placed or performed during the hospital encounter of 02/13/23 CBC W/DIFF AUTOMATED Result Value Ref Range WBC 10.8 4.5 - 11.0 x10'3/uL RBC 4.37 4.20 - 5.40 x10'6/uL HGB 10.0 (L) 12.0 - 16.0 G/DL HCT 33.1 (L) 38.0 - 48.0 % MCV 75.7 (L) 81.0 - 99.0 FL MCH 22.9 (L) 27.0 - 31.0 PG MCHC 30.2 (L) 32.0 - 36.0 G/DL RDW 15.8 (H) 11.5 - 14.5 % PLT 194 130 - 400 x10'3/uL MPV 11.9 9.3 - 12.2 FL DIFFERENTIAL TYPE AUTOMATED DIFFERENTIAL NEUTROPHILS 71.2 % LYMPHOCYTES 21.3 % MONOCYTES 6.0 % EOSINOPHILS 0.3 % BASOPHILS 0.2 % IMMATURE GRANS 1.0 % ABS. NEUTROPHILS TOTAL 7.71 (H) 1.80 - 7.70 x10'3/uL ABS. LYMPHOCYTES 2.31 1.00 - 4.80 x10'3/uL ABS. MONOCYTES 0.65 0.24 - 0.86 x10'3/uL ABS. EOSINOPHILS 0.03 (L) 0.04 - 0.36 x10'3/uL ABS. BASOPHILS 0.02 0.01 - 0.08 x10'3/uL ABS. IMMATURE GRANULOCYTES 0.11 0.00 - 0.49 x10'3/uL URINALYSIS Result Value Ref Range Specimen Type URINE CLEAN CATCH COLOR (U) YELLOW TRANSPARENCY CLEAR SPECIFIC GRAVITY (U) 1.022 1.001 - 1.030 U PH 6.0 5.0 - 9.0 LEUKOCYTES (U) 25 (A) NEGATIVE NITRITES NEGATIVE NEGATIVE PROTEIN RANDOM (U) 20 <30 MG/DL GLUCOSE (U) NORMAL NORMAL MG/DL KETONES (U) 60 (A) NEGATIVE MG/DL UROBILINOGEN NORMAL NORMAL MG/DL BILIRUBIN (U) NEGATIVE NEGATIVE MG/DL BLOOD (U) NEGATIVE NEGATIVE MUCUS MANY /LPF WBC/HPF 3 <6 /HPF RBC/HPF 2 <6 /HPF SQUAMOUS EPITHELIALS RARE /HPF DRUG SCREEN RAPID Result Value Ref Range AMPHETAMINE (U) NEGATIVE NEGATIVE BARBITURATES SCREEN (U) NEGATIVE NEGATIVE BENZODIAZEPINES SCREEN (U) NEGATIVE NEGATIVE CANNABINOIDS SCREEN (U) NEGATIVE NEGATIVE COCAINE METABOLITES (U) NEGATIVE NEGATIVE METHADONE (U) NEGATIVE NEGATIVE OPIATE SCREEN (U) NEGATIVE NEGATIVE PHENCYCLIDINE PCP (U) NEGATIVE NEGATIVE CREATININE (U) 157.0 28 - 217 MG/DL RUBELLA IGG Result Value Ref Range RUBELLA IGG AB immune HIV 1 ANTIGEN(S), WITH HIV-1 AND HIV-2 ANTIBODIES Result Value Ref Range HIV 1/2 AB+ HIV1 P24 AG negative HEPATITIS B SURFACE AG, EIA Result Value Ref Range HEPATITIS B SURFACE AG negative SYPHILIS IGG AB Result Value Ref Range SYPHILIS IGG AB negative TYPE & SCREEN Result Value Ref Range ABO/RH A POSITIVE ANTIBODY SCREEN NEGATIVE SAMPLE EXPIRATION 02/16/2023,2359 CULTURE, GRP B STREP Result Value Ref Range CULTURE GBS positive ASSESSMENT/PLAN 22-year-old at 38w5d 1. Admit with routine labor and delivery orders 2. GBS prophylaxis per protocol 3. Epidural at request 4. Anticipate , Dr. Dewey aware VIVI PETERSON CNM UMER BANKER documented in this encounter Procedure Notes * Vivi Peterson CNM - 02/13/2023 2:14 PM CSTSummary: delivery Delivery Information for Leonela Monet Gestational Age: 38w5d Labor Event Times Labor onset date/time: 02/13/23 1033 Dilation complete date/time: 02/13/23 1340 decision date/time: Labor Events labor?: No Rupture of Membranes Rupture date/time: 02/13/231032 Rupture type: AROM, Intact Fluid color: Clear Fluid odor: Normal Labor Details Labor type: Spontaneous Onset of Labor First cervical ripening date/time: Induction date/time: Augmentation: AROM, Oxytocin Augmentation date/time: 02/13/231032 Indications for augmentation: Ineffective Contraction Pattern Was labor allowed to proceed with plans for an attempted vaginal ?: Yes Labor complications: None Delivery (Maternal) Episiotomy: None Perineal lacerations: None Vaginal laceration: No Cervical laceration: No Other laceration: none QBL at Delivery Mother: Diogenes Monet #[id number] Start of Mother's Information QBL at Delivery QBL at Delivery 100 End of Mother's Information Mother: Diogenes Monet #[id number] Vaginal Sponge Counts Initial count personnel: Ar RAE Initial count verified by: Zelalem MATHUR RN Final count personnel: Kala PETERSON CNM Final count verified by: Ar RAE Presentation and Position Presentation: Vertex Position: Right Occiput Anterior Pain Management Method: Epidural Delivery Providers Delivering clinician: Vivi Peterson CNM Provider Role Shade Mathur, TIMOTEO Labor Nurse Lluvia Morley, TIMOTEO Labor Nurse Jayleen Duff, TIMOTEO Nursery Nurse Melina Flores, CONSUMER BANKER Contract Loader Sandra Milian, TIMOTEO Nursery Nurse Delivery ([place]) Time head delivered: 02/13/2023 1351 date/time: 02/13/23 1351 Now Delivery type: Vaginal, Spontaneous Forceps?: No Vacuum?: No Water ?: No Details: Trial of labor?: Yes Skin to Skin Skin to skin initiated date/time: 02/13/2023 135 Skin to skin with: Mother Cord Vessels: 3 Vessels Complications: None Cord blood disposition: Lab Gases sent?: Yes Cord comments: marginal placental cord insert Resuscitation Method: None [place] Measurements Weight: 6 lb 10.4 oz Length: 20.08 Head circumference: 33 cm Placenta Date/time: 02/13/2023 1:57 PM Removal: Spontaneous Appearance: Intact Disposition: lab Third stage active managment performed: Yes Comments: marginal placental cord insert Assessment Living status: Living Skin color: Heart rate: Reflex irritability: Muscle tone: Respiratory effort: Total: 1 Minute: 0 2 2 2 2 8 2 Minute: 5 Minute: 1 2 2 2 2 9 10 Minute: 15 Minute: 20 Minute: Apgars assigned by: TIMOTEO LARA Called to bedside for strong urge to push. SVE found to be complete and +2 station. Pushed with encouragement to over 2 contractions. Delivery of head with next contraction with easy delivery of anterior shoulder and body. Vigorous infant placed on mother's abdomen to care of nurserystaff. Cord double clamped and cut at one minute. Cord blood obtained for gases and type/rh. Placenta delivered spontaneously. 3 vessel cord with marginal insertion noted. Fundus firm with massage. Perineum inspected and found to be intact. Mother and enter recovery in stable condition. VIVI PETERSON CNM UMER BANKER documented in this encounter Plan of Treatment Not on file documented as of this encounter Procedures Procedure Name Priority Date/Time Associated Diagnosis Comments HEMOGLOBIN AND HEMATOCRIT Routine 02/14/2023 5:15 AM CONSUMER BANKER SYPHILIS IGG AB Routine 02/13/2023 6:30 AM CONSUMER BANKER HIV 1 ANTIGEN(S), WITH HIV-1 AND HIV-2 ANTIBODIES Routine 02/13/2023 6:30 AM CONSUMER BANKER DRUG SCREEN RAPID STAT 02/13/2023 6:3 0 AM CONSUMER BANKER ([facility]) TYPE & SCREEN STAT 02/13/2023 6:30 AM CONSUMER BANKER ([facility]) HC URINALYSIS AUTO W/O MICRO STAT 02/13/2023 6:30 AM CONSUMER BANKER ([facility]) CBC W/DIFF AUTOMATED STAT 02/13/2023 6:30 AM CONSUMER BANKER ([facility]) PATHOLOGY Routine 02/13/2023 12:00 AM CONSUMER BANKER CULTURE, GRP B STREP Routine 02/02/2023 SYPHILIS IGG AB Routine 07/31/2022 HIV 1 ANTIGEN(S), WITH HIV-1 AND HIV-2 ANTIBODIES Routine 07/31/2022 RUBELLA IGG Routine 07/31/2022 HEPATITIS B SURFACE AG, EIA Routine 07/31/2022 documented in this encounter Results * (ABNORMAL) Hemoglobin and Hematocrit (02/14/2023 5:15 AM CONSUMER BANKER) HGB 8.9(L) 12.0 - 16.0 G/DL 02/14/2023 6:29 AM CONSUMER BANKER [facility] HCT 29.8(L) 38.0 - 48.0 % 02/14/2023 6:29 AM CONSUMER BANKER [facility] 02/14/2023 5:15 AM CONSUMER BANKER us Vivi Peterson CNM LABORATORY Final R esult Performing Organization Address City/[facility]/ZIP Co de Phone Number [facility] [address] [place] [address], [place] [phone] * HIV 1 ANTIGEN(S), WITH HIV-1 AND HIV-2 ANTIBODIES (02/13/2023 6:30 AM CONSUMER BANKER) HIV 1/2 AB+ HIV1 P24 AG NON-REACTI VE NON-REACTI VE 02/13/2023 10:04 AM CONSUMER BANKER [facility] 02/13/2023 6:30 AM CONSUMER BANKER us Bert Oliver MD LABORATORY Final Result [facility] [address] [place] [address], * SYPHILIS IGG AB (RPR) (02/13/2023 6:30 AM CONSUMER BANKER) Pathologist [facility] SYPHILIS IGG AB NON-REACTI VE NON-REACTI VE 02/13/2023 8:57 AM CONSUMER BANKER [facility] 02/13/2023 6:30 AM CONSUMER BANKER Bert Oliver MD LABORATORY Final Result [facility] [address] [place] [address], * DRUG SCREEN RAPID (02/13/2023 6:30 AM CONSUMER BANKER) Pathologist [facility] AMPHETAMINE (U) NEGATIVE NEGATIVE 7:15 AM CONSUMER BANKER [facility] BARBITURATES SCREEN (U) NEGATIVE NEGATIVE 02/13/2023 7:15 AM [facility] BENZODIAZEPINES SCREEN (U) NEGATIVE NEGATIVE 02/13/2023 7:15 AM CONSUMER BANKER [facility] CANNABINOIDS SCREEN (U) NEGATIVE NEGATIVE 02/13/2023 7:15 AM CONSUMER BANKER [facility] COCAINE METABOLITES (U) NEGATIVE NEGATIVE 02/13/2023 7:15 AM CONSUMER BANKER [facility] METHADONE (U) NEGATIVE NEGATIVE 02/13/2023 7:15 AM CONSUMER BANKER [facility] OPIATE SCREEN (U) NEGATIVE NEGATIVE 023 7:15 AM CONSUMER BANKER [facility] PHENCYCLIDINE PCP (U) NEGATIVE NEGATIVE 02/13/2023 7:15 AM CONSUMER BANKER [facility] Comment: NOTE: RESULTS OF THIS DRUG SCREEN SHOULD BE USED FOR MEDICAL PURPOSES ONLY AND NOT FOR LEGAL OR EMPLOYMENT PURPOSES. POSITIVE RESULTS ARE NOT CONFIRMED. MEDICATIONS CONTAINING EPHEDRINE MAY CAUSE FALSE POSITIVE AMPHETAMINE CALL [phone], LAB, TO REQUEST CONFIRMATION TESTING. IF CREATININE IS <40 mg/dL. ??RECOLLECTION IS SUGGESTED. AMPHETAMINE- ?500 NG/ML BARBITURATE- ?200 NG/ML BENZODIAZEPINES- ??200 NG/ML THC- ? 50 NG/ML COCAINE- ?150 NG/ML METHADONE- ?300 NG/ML OPIATE- ? 300 MG/ML PCP- ? 25 NG/ML CREATININE (U) 157.0 28 - 217 MG/DL 02/13/2023 7:15 AM [facility] URINE SPECIMEN / Unknown 02/13/2023 6:30 AM CONSUMER BANKER us Bert Oliver MD URINE ORDERABLES Final Resul t [facility] [address] [place] [address], * (ABNORMAL) URINALYSIS (02/13/2023 6:30 AM CONSUMER BANKER) SPECIMEN TYPE URINE CLEAN CATCH 02/13/2023 6:46 AM [facility] COLOR (U) YELLOW 02/13/2023 7:15 AM [facility] TRANSPARENCY CLEAR 02/13/2023 7:15 AM [facility] SPECIFIC GRAVITY (U) 1.022 1.001 - 1.030 02/13/2023 7:15 AM [facility] U PH 6.0 5.0 - 9.0 02/13/2023 7:15 AM [facility] LEUKOCYTES (U) 25(A) NEGATIVE 02/13/2023 7:15 AM [facility]ER [facility] NITRITES NEGATIVE NEGATIVE 02/13/2023 7:15 AM [facility] PROTEIN RANDOM (U) 20 <30 MG/DL 02/13/2023 7:15 AM [facility] GLUCOSE (U) NORMAL NORMAL MG/DL 02/13/2023 7:15 AM [facility] KETONES MG/DL (U) 60(A) NEGATIVE MG/DL 02/13/2023 7:15 AM [facility] UROBILINOGEN NORMAL NORMAL MG/DL 02/13/2023 7:15 AM [facility] BILIRUBIN (U) NEGATIVE NEGATIVE MG/DL 02/13/2023 7:15 AM [facility] BLOOD (U) NEGATIVE NEGATIVE 02/13/2023 7:15 AM [facility] MUCUS MANY /LPF 02/13/2023 7:15 AM [facility] WBC/HPF 3 <6 /HPF 02/13/2023 7:15 AM [facility] RBC/HPF 2 <6 /HPF 02/13/2023 7:15 AM [facility] SQUAMOUS EPITHELIALS RARE /HPF 02/13/2023 7:15 AM [facility] URINE SPECIMEN OBTAINED BY CLEAN CATCH PROCEDURE / Unknown 02/13/2023 6:30 AM CONSUMER BANKER Bert Oliver MD URINE ORDERABLES Final Resul t [facility] [address] [place] [address], [place] [phone] * TYPE & SCREEN (02/13/2023 6:30 AM CONSUMER BANKER) Pathologist [facility] ABO/RH A POSITIVE 02/13/2023 7:39 AM [employer] [employer]ER [facility] ANTIBODY SCREEN NEGATIVE 02/13/2023 7:39 AM [employer] [employer]ER [facility] SAMPLE EXPIRATION 02/16/2023,2 359 02/13/2023 7:39 AM [employer] [employer] 02/13/2023 6:30 AM CON[employer]ER B[employer]ER us Bert Oliver MD BLOOD BANK TEST ORDERABLES F inal Result [facility] [address] [place] [address], [place] [phone] * (ABNORMAL) CBC W/DIFF AUTOMATED (02/13/2023 6:30 AM CONSUMER BANKER) Pathologist [facility] WBC 10.8 4.5 - 11.0 x10'3/uL 02/13/2023 6:54 AM [employer] [employer]ER [facility] RBC 4.37 4.20 - 5.40 x10'6/uL 02/13/2023 6:54 AM [employer] [employer]ER [facility] HGB 10.0(L) 12.0 - 16.0 G/DL 02/13/2023 6:54 AM [employer] [employer]ER [facility] HCT 33.1(L) 38.0 - 48.0 % 02/13/2023 6:54 AM [employer]ER [facility] MCV 75.7(L) 81.0 - 99.0 FL 02/13/2023 6:54 AM [facility] MCH 22.9(L) 27.0 - 31.0 PG 02/13/2023 6:54 AM [employer]ER [facility] MCHC 30.2(L) 32.0 - 36.0 G/DL 02/13/2023 6:54 AM [facility] RDW 15.8(H) 11.5 - 14.5 % 02/13/2023 6:54 AM [facility] PLT 194 130 - 400 x10'3/uL 02/13/2023 6:54 AM [facility] MPV 11.9 9.3 - 12.2 FL 02/13/2023 6:54 AM [facility] DIFFERENTIAL TYPE AUTOMATED DIFFERENTIAL 02/13/2023 6:54 AM [facility] NEUTROPHILS % 71.2 % 02/13/2023 6:54 AM [facility] LYMPHOCYTES % 21.3 % 02/13/2023 6:54 AM [facility] MONOCYTES % 6.0 % 02/13/2023 6:54 AM [facility] EOSINOPHILS 0.3 % 02/13/2023 6:54 AM [facility] BASOPHILS 0.2 % 02/13/2023 6:54 AM [facility] IMMATURE GRANS % 1.0 % 02/14/20 6:54 AM [facility] ABS. NEUTROPHILS TOTAL 7.71(H) 1.80 - 7.70 x10'3/uL 02/13/2023 6:54 AM [facility] ABS. LYMPHOCYTES 2.31 1.00 - 4.80 x10'3/uL 02/13/2023 6:54 AM [facility] ABS. MONOCYTES 0.65 0.24 - 0.86 x10'3/uL 02/13/2023 6:54 AM [facility] ABS. EOSINOPHILS 0.03(L) 0.04 - 0.36 x10'3/uL 02/13/2023 6:54 AM [facility] ABS. BASOPHILS 0.02 0.01 - 0.08 x10'3/uL 02/13/2023 6:54 AM [employer]ER [employer]ER [facility] ABS. IMMATURE GRANULOCYTES 0.11 0.00 - 0.49 x10'3/uL 02/13/2023 6:54 AM CON[employer]ER [employer]ER [facility] 02/13/2023 6:30 AM CONSUMER BANKER us Bert Oliver MD LABORATORY Final Result [facility] [address] [facility] [place] [address], * Pathology-Placenta (02/13/2023 12:00 AM CONSUMER BANKER) COPATH REPORT ?[facility] ? [address] ? [place] ??[id number] ? [phone] ? Department of Pathology ? Pathology Report ? SURGICAL FINAL REPORT Patient Name: DIOGENES MONET ? : 2000 (Age: 22) ? Location: [facility] Gender: F ?Collected Date: 02/13/2023 Med Rec #: [id number] ?Date Received: 02/13/2023 Date Reported: 02/18/2023 Provider: VIVI PETERSON CNM ?BERT OLIVER MD ?ZACK MANCUSO MD Specimen(s) Placenta and Umbilical Cord Final Pathologic Diagnosis PLACENTA AND UMBILICAL CORD, VAGINAL DELIVERY: ? 415-GRAM PLACENTA (NORMAL WEIGHT FOR GESTATIONAL AGE) ? THREE-VESSEL UMBILICAL CORD WITH NO HISTOPATHOLOGIC ABNORMALITY ? MEMBRANES WITH CIRCUMMARGINATE INSERTION ? MATURE VILLOUS MORPHOLOGY Electronically Signed Out ? DONG ODONNELL MD Pathologist SMO:pb Microscopic Description: Microscopic examination substantiates the above diagnosis. Clinical History Marginal cord insertion Gross Description Received is a single formalin-filled container labeled with the patient's name (Diogenes Monet), date of (2000) (collection time 02/14/2023 at 1357) and additionally labeled placenta. ??The specimen consists of a patel placenta, measuring 17.0 x 16.0 x 3.5 cm, with a marginally inserted umbilical cord, measuring 33.0 cm in length with a diameter up to 1.8 cm. ??The cord appears slightly edematous. ??Sectioning of the cord reveals three-vessels and there are no identifiable true or false knots present. ??The membranes are purple-delgadillo semitranslucent and have circummarginate insertion. ??The surface is purple-delgadillo with normal vasculature. ??The maternal surface is red-delgadillo with intact cotyledons. ??The trimmed disc weighs 413 grams. ??Sectioning of the disc reveals a red-delgadillo homogenous cut surface. ?? Cuff Runner sections are submitted as follows: 1 ? - ? Membrane roll 2 ? - ? Cuff Runner cord 3-5 ? - ? Cuff Runner full thickness placental disc :pb Billing Fee Code(s): 33740 [facility] 02/13/2023 02/13/2023 2:5 7 PM CONSUMER BANKER Comment:Placenta and Umbilic al Cord Vivi Peterson CNM PATHOLOGY/CYTOLOGY [facility] Final Result [facility] [address] [place] [address], * CULTURE, GRP B STREP (02/02/2023) CULTURE GBS positive Default History Genericprovider MICROBIOLOGY - G ENERAL ORDERABLES Final Result * SYPHILIS IGG AB (07/31/2022) SYPHILIS IGG AB negative Default History Genericprovider LABORATORY Final Result * HEPATITIS B SURFACE AG, EIA (07/31/2022) HEPATITIS B SURFACE AG negative us Default History Genericprovider LABORATORY Final Result * HIV 1 ANTIGEN(S), WITH HIV-1 AND HIV-2 ANTIBODIES (07/31/2022) HIV 1/2 AB+ HIV1 P24 AG negative Default History Genericprovider LABORATORY Final Result * RUBELLA IGG (07/31/2022) RUBELLA IGG AB immune us Default History Genericprovider LABORATORY Final Result documented in this encounter Visit Diagnoses Diagnosis Normal course (HHS/HCC)- Primary Routine follow-up (HHS/HCC) state, incidental (HHS/HCC) state, incidental Vaginal delivery (HHS/HCC) Normal delivery documented in this encounter Admitting Diagnoses Diagnosis (HHS/HCC) state, incidental documented in this encounter Administered Medications Inactive Administered Medications - up to 3 most recent administrations Medication Order MAR Action Action Date Dose Rate Site diphenhydrAMINE (BENADRYL) 12.5 MG/5ML elixir 25 mg 25 mg, Oral, Every 6 hours PRN, Itching, Starting on Sat02/13/23 at 1549, Until Sat02/14/23 at 1714, Give if unable to swallow tablets/capsules or if patient prefers liquid., diphenhydrAMINE (BENADRYL) capsule 25 mg 25 mg, Oral, Every 6 hours PRN, Itching, Starting on Sat02/13/23 at 1549, Until Virgen 02/14/23 at 1714, diphenhydrAMINE (BENADRYL) injection 25 mg 25 mg, Intravenous, Every 6 hours PRN, Itching, Starting on Sat02/13/23 at 1549, Until Virgen 02/14/23 at 1714, Give if unable to take PO. For IV administration, give no faster than 25 mg/min., docusate sodium (COLACE) capsule 100 mg 100 mg, Oral, Every 12 hours scheduled (2 times per day), First dose on Sat02/13/23 at 2100, Until Discontinued, Given 02/14/2023 9:48 AM CONSUMER BANKER 100 mg Given 02/13/2023 8:34 PM CONSUMER BANKER 100 mg ibuprofen (MOTRIN) tablet 600 mg 600 mg, Oral, Every 6 hours PRN, Discomfort, Cramping, Starting on Sat02/13/23 at 1549, Until Virgen 02/14/23 at 1714, Do not order ibuprofen and Vicoprofen (hydrocodone/ibuprofen) together., Given 02/14/2023 10:19 AM CONSUMER BANKER 600 mg Given 02/13/2023 3:54 PM CONSUMER BANKER 600 mg lactated ringers bolus infusion 1,000 mL 1,000 mL, Intravenous, Administer over 30 Minutes, Once, 1 dose, On Sat02/13/23 at 0630, Bolus prior to epidural placement., Pre-DeliveryIndications:Pregnanc y ([facility] New Bag 02/13/2023 9:45 AM CONSUMER BANKER 1,000 mLs miSOPROStol (CYTOTEC) 200 MCG tablet 1 dose, Starting on Sat02/13/23 at 1539, Until Sat02/13/23 at 1540, Created by cabinet override HAZARDOUS MEDICATION: wear single chemotherapy approved gloves. Do not open or split. If crushing, use approved closed-system crushing device for hazardous medications. miSOPROStol (CYTOTEC) tablet 1,000 mcg 1,000 mcg, Rectal, Once, 1 dose, On Sat02/13/23 at 1545, HAZARDOUS MEDICATION: wear single chemotherapy approved gloves. Do not open or split. If crushing, use approved closed-system crushing device for hazardous medications. Given 02/13/2023 3:40 PM CONSUMER BANKER 1,000 mcg oxytocin (PITOCIN) 15 units in NS 250 mL infusion 0-300 mL/hr, Intravenous, Continuous, Starting on Sat02/13/23 at 0630, Until Sat02/13/23 at 1549, Initiate during third stage of labor, timing to be determined by delivering provider. Initial rate at 300 ml/hr for the 1st hour, then decrease to 60 mL/hr for the 2nd hour.?? Continue this rate until the fundus is firm or the patient has completed her recovery phase. For uterine atony, infuse at 999 ml/hr for one hour. After one hour and if bleeding subsides, decrease to 60 mL/hr and discontinue in two hours. HAZARDOUS MEDICATION: wear single chemotherapy approved gloves., Pre-DeliveryIndications:Pregnanc y ([facility]) New Bag 02/13/2023 3:40 PM CONSUMER BANKER 600 mL/hr 600 mL/hr Rate/Dose Change 02/13/2023 1:52 PM CONSUMER BANKER 999 mL/hr 999 mL/ hr oxytocin (PITOCIN) 15 units in NS 250 mL infusion 0-300 bibi-units/min (0-300 mL/hr), Intravenous, Continuous, Starting on Sat02/13/23 at 1115, Until Sat02/13/23 at 1549, Start at 2 bibi-unit/min. Increase by 2 bibi-unit/min every 30 minutes until adequate contraction defined as 3-5 contractions in 10 minutes or cervical change occurs. Max dose of 30 bibi-units/min. Notify provider when dose has reached 20 bibi-unit/min. RN to adjust dose based upon maternal and/or response. If uterine tachysystole occurs WITH reassuring FHR then: -Decrease oxytocin rate by half -If tachysystole does not resolve within 15 minutes after initial intervention, stop oxytocin infusion and notify provider If uterine tachysystole occurs when the FHR is NOT reassuring: -Stop the oxytocin infusion. -Follow guidelines below for resumption of oxytocin when tachysystole resolved: If oxytocin is stopped due to tachysystole for less than 30 minutes resume oxytocin at half the rate at time it was stopped. If oxytocin is stopped due to tachysystole for longer than 30 minutes resume oxytocin at the initial ordered dose. If stopped for less than 30 minutes resume at half the rate at time it was stopped If stopped for more than 30 minutes resume at the initial dose ordered. Following delivery infuse any remaining oxytocin at 300ml/hr (300 bibi-units/min) for the fist hour, then decrease to 60 ml/r (60 bibi-units/min) for the 2nd hour. Continue this rate until the fundus is firm or the patient has completed her recovery phase. HAZARDOUS MEDICATION: wear single chemotherapy approved gloves., Pre-Delivery Rate/Dose Change 02/13/2023 12:45 PM CONSUMER BANKER 8 bibi-units/min 8 mL/hr Rate/Dose Change 02/13/2023 12:15 PM CONSUMER BANKER 6 bibi-units/min 6 mL/hr Rate/Dose Change 02/13/2023 11:45 AM CONSUMER BANKER 4 bibi-units/min 4 mL/hr penicillin G potassium 5 Million Units in sodium chloride 0.9 % 50 mL IVPB 5 Million Units, Intravenous, at 100 mL/hr, Once, 1 dose, On Sat02/13/23 at 0645, Pre-DeliveryIndications:Preg sho ([facility]) New Bag 02/13/2023 6:53 AM CONSUMER BANKER 5 Million Units 100 mL/hr penicillin G potassium in 0.9% NaCl 100 mL IVPB 2.5 Million Units 2.5 Million Units, Intravenous, Every 4 hours, First dose on Sat02/13/23 at 1100, Until Discontinued, Until delivery, Pre-DeliveryIndications:Preg sho ([facility]) New Bag 02/13/2023 10:31 AM CONSUMER BANKER 2.5 Million Units vitamin (low iron) 27-0.8 MG tablet 1 tablet 1 tablet, Oral, Nightly at bedtime, First dose on Sat02/13/23 at 2100, Until Discontinued Given 02/13/2023 8:34 PM CONSUMER BANKER 1 tablet documented in this encounter Active and Recently Administered Medications Times are shown in CONSUMER BANKER. Scheduled Medication Order 02/12/2023 02/13/2023 02/14/2023 docusate sodium (COLACE) capsule 100 mg 100 mg, Oral, Every 12 hours scheduled (2 times per day), First dose on Sat02/13/23 at 2100, Until Discontinued, 2033 (Given - Provider: Otilia Rivera RN) 0948 (Given - Provider: Brneda Leong, TIMOTEO) lactated ringers bolus infusion 1,000 mL (COMPLETED)(Linked Group 1) 1,000 mL, Intravenous, Administer over 30 Minutes, Once, 1 dose, On Sat02/13/23 at 0630, Bolus prior to epidural placement., Pre-Delivery 0945 (New Bag - Provider: Shade Mathur RN)1015 (Due: Infusion Stop Time - Provider: Shade Mathur, TIMOTEO) methylPREDNISolone (MEDROL) tablet 2 mg 2 mg, Oral, 2 times daily, First dose on Sat02/13/23 at 2100, Until Discontinued 1950 (Not Given - Provider: Otilia Rivera RN - Reason: Contraindicated - Comment: pt took own dose pack) 0948 (Not Given - Provider: Brenda Leong RN - Reason: Contraindicated) miSOPROStol (CYTOTEC) tablet 1,000 mcg (COMPLETED) 1,000 mcg, Rectal, Once, 1 dose, On Sat02/13/23 at 1545, HAZARDOUS MEDICATION: wear single chemotherapy approved gloves. Do not open or split. If crushing, use approved closed-system crushing device for hazardous medications. 1540 (Given - Provider: Shade Mathur RN) penicillin G potassium 5 Million Units in sodium chloride 0.9 % 50 mL IVPB (COMPLETED)(Linked Group 2) 5 Million Units, Intravenous, at 100 mL/hr, Once, 1 dose, On Sat02/13/23 at 0645, Pre-Delivery 0653 (New Bag - Provider: Ata Bales, RN)0723 (Due: Infusion Stop Time - Provider: Ata Bales RN) penicillin G potassium in 0.9% NaCl 100 mL IVPB 2.5 Million Units (CANCELED)(Linked Group 2) 2.5 Million Units, Intravenous, Every 4 hours, First dose on Sat02/13/23 at 1100, Until Discontinued, Until delivery, Pre-Delivery 1031 (New Bag - Provider: Shade Mathur, TIMOTEO)1101 (Due: Infusion Stop Time - Provider: Shade Mathur RN)1500 (Due) vitamin (low iron) 27-0.8 MG tablet 1 tablet 1 tablet, Oral, Nightly at bedtime, First dose on Sat02/13/23 at 2100, Until Discontinued 2033 (Given - Provider: Otilia Rivera RN) Continuous Medication Order 02/12/2023 02/13/2023 02/14/2023 fentaNYL 2 mcg/mL-BUpivacaine 0.125 % 150 mL epidural (CANCELED) 10 mL/hr, Epidural, Continuous, Starting on Sat02/13/23 at 0930, Until Sat02/13/23 at 1549, Continuous Epidural Infusion with Patient Controlled Epidural Analgesia (PCEA) BASAL INFUSION RATE: 10 mL/hr (20 mcg/hr) PCEA DEMAND DOSE: 5 mL (10 mcg) LOCKOUT INTERVAL: 20 minutes MAX DOSE LOCKOUT: 80 mL / 4 hours *High Alert*, Pre-Delivery 1010 (New Bag - Provider: Tabitha Joya CRNA - Comment: delay between negative test dose and infusion initiation d/t called pharmacy x2 for additional epidural infusate) oxytocin (PITOCIN) 15 units in NS 250 mL infusion (CANCELED) 0-300 mL/hr, Intravenous, Continuous, Starting on Sat02/13/23 at 0630, Until Sat02/13/23 at 1549, Initiate during third stage of labor, timing to be determined by delivering provider. Initial rate at 300 ml/hr for the 1st hour, then decrease to 60 mL/hr for the 2nd hour.?? Continue this rate until the fundus is firm or the patient has completed her recovery phase. For uterine atony, infuse at 999 ml/hr for one hour. After one hour and if bleeding subsides, decrease to 60 mL/hr and discontinue in two hours. HAZARDOUS MEDICATION: wear single chemotherapy approved gloves., Pre-Delivery 0630 (Due)1352 (Rate/Dose Change - Provider: Shade Mathur RN - Comment: Per CNM order)1540 (New Bag - Provider: Shade Mathur RN - Comment: Per CNM order) oxytocin (PITOCIN) 15 units in NS 250 mL infusion (CANCELED) 0-300 bibi-units/min (0-300 mL/hr), Intravenous, Continuous, Starting on Sat02/13/23 at 1115, Until Sat02/13/23 at 1549, Start at 2 bibi-unit/min. Increase by 2 bibi-unit/min every 30 minutes until adequate contraction defined as 3-5 contractions in 10 minutes or cervical change occurs. Max dose of 30 bibi-units/min. Notify provider when dose has reached 20 bibi-unit/min. RN to adjust dose based upon maternal and/or response. If uterine tachysystole occurs WITH reassuring FHR then: -Decrease oxytocin rate by half -If tachysystole does not resolve within 15 minutes after initial intervention, stop oxytocin infusion and notify provider If uterine tachysystole occurs when the FHR is NOT reassuring: -Stop the oxytocin infusion. -Follow guidelines below for resumption of oxytocin when tachysystole resolved: If oxytocin is stopped due to tachysystole for less than 30 minutes resume oxytocin at half the rate at time it was stopped. If oxytocin is stopped due to tachysystole for longer than 30 minutes resume oxytocin at the initial ordered dose. If stopped for less than 30 minutes resume at half the rate at time it was stopped If stopped for more than 30 minutes resume at the initial dose ordered. Following delivery infuse any remaining oxytocin at 300ml/hr (300 bibi-units/min) for the fist hour, then decrease to 60 ml/r (60 bibi-units/min) for the 2nd hour. Continue this rate until the fundus is firm or the patient has completed her recovery phase. HAZARDOUS MEDICATION: wear single chemotherapy approved gloves., Pre-Delivery 1115 (New Bag - Provider: Lluvia Morley, TIMOTEO)1145 (Rate/Dose Change - Provider: Shade Mathur, RN)1215 (Rate/Dose Change - Provider: Shade Mathur, RN)1245 (Rate/Dose Change - Provider: Shade Mathur, RN) PRN Medication Order 02/12/2023 02/13/2023 02/14/2023 acetaminophen (TYLENOL) tablet 650 mg 650 mg, Oral, Every 4 hours PRN, Mild pain (Scale 1 - 3), Starting on Sat02/13/23 at 1549, Until Virgen 02/14/23 at 1714, Maximum dose of acetaminophen is 4000 mg from all sources in 24 hours., albuterol sulfate HFA 108 (90 Base) MCG/ACT inhaler 2 puff 2 puff, Inhalation, Every 4 hours PRN, Wheezing, Shortness of breath, Other, coughing, Starting on Sat02/13/23 at 1549, Until Virgen 02/14/23 at 1714 benzocaine-menthol (DERMOPLAST) 20-0.5 % topical spray 1 spray 1 spray, Topical, 4 times daily PRN, Pain, Perineal discomfort, Starting on Sat02/13/23 at 1549, Until Virgen 02/14/23 at 1714, Do NOT recommend use for pain in infants & children under 2 years., diphenhydrAMINE (BENADRYL) 12.5 MG/5ML elixir 25 mg(Linked Group 3) 25 mg, Oral, Every 6 hours PRN, Itching, Starting on Sat02/13/23 at 1549, Until Virgen 02/14/23 at 1714, Give if unable to swallow tablets/capsules or if patient prefers liquid., diphenhydrAMINE (BENADRYL) capsule 25 mg(Linked Group 3) 25 mg, Oral, Every 6 hours PRN, Itching, Starting on Sat02/13/23 at 1549, Until Virgen 02/14/23 at 1714, diphenhydrAMINE (BENADRYL) injection 25 mg(Linked Group 3) 25 mg, Intravenous, Every 6 hours PRN, Itching, Starting on Sat02/13/23 at 1549, Until Virgen 02/14/23 at 1714, Give if unable to take PO. For IV administration, give no faster than 25 mg/min., hydrocortisone (ANUSOL-HC) suppository 25 mg 25 mg, Rectal, 2 times daily PRN, Hemorrhoids, Do not give if 3rd or 4th degree laceration., Starting on Sat02/13/23 at 1549, Until Virgen 02/14/23 at 1714, ibuprofen (MOTRIN) tablet 600 mg 600 mg, Oral, Every 6 hours PRN, Discomfort, Cramping, Starting on Sat02/13/23 at 1549, Until Virgen 02/14/23 at 1714, Do not order ibuprofen and Vicoprofen (hydrocodone/ibuprofen) together., 1554 (Given - Provider: Shade Mathur, TIMOTEO) 1019 (Given - Provider: Brenda Leong RN) lanolin (MEDELA [employer]ER [employer]) cream Topical, PRN, Irritation, Starting on Sat02/13/23 at 1549, Until Virgen 02/14/23 at 1714, ondansetron (ZOFRAN) injection 4 mg 4 mg, Intravenous, Every 8 hours PRN, Nausea, Vomiting, Starting on Sat02/13/23 at 1549, Until Virgen 02/14/23 at 1714, Use IV if patient unable to take oral order for ondansetron., ondansetron (ZOFRAN-ODT) disintegrating tablet 8 mg 8 mg, Oral, Every 8 hours PRN, Nausea, Vomiting, Starting on Sat02/13/23 at 1549, Until Virgen 02/14/23 at 1714, Linked Groups Order Group 1: Patient may have epidural (CANCELED) Routine, Once, On Sat02/13/23 at 0609, For 1 occurrence, Nursing to inform anesthesia of patient's need for epidural, and LR bolus initiated., Pre-Delivery And lactated ringers bolus infusion 1,000 mL (COMPLETED)Jump to med 1,000 mL, Intravenous, Administer over 30 Minutes, Once, 1 dose, On Sat02/13/23 at 0630, Bolus prior to epidural placement., Pre-Delivery Group 2: penicillin G potassium 5 Million Units in sodium chloride 0.9 % 50 mL IVPB (COMPLETED)Jump to med 5 Million Units, Intravenous, at 100 mL/hr, Once, 1 dose, On Sat02/13/23 at 0645, Pre-Delivery Followed by penicillin G potassium in 0.9% NaCl 100 mL IVPB 2.5 Million Units (CANCELED)Jump to med 2.5 Million Units, Intravenous, Every 4 hours, First dose on Sat02/13/23 at 1100, Until Discontinued, Until delivery, Pre-Delivery Group 3: diphenhydrAMINE (BENADRYL) injection 25 mgJump to med 25 mg, Intravenous, Every 6 hours PRN, Itching, Starting on Sat02/13/23 at 1549, Until Virgen 02/14/23 at 1714, Give if unable to take PO. For IV administration, give no faster than 25 mg/min., Or diphenhydrAMINE (BENADRYL) capsule 25 mgJump to med 25 mg, Oral, Every 6 hours PRN, Itching, Starting on Sat02/13/23 at 1549, Until Virgen 02/14/23 at 1714, Or diphenhydrAMINE (BENADRYL) 12.5 MG/5ML elixir 25 mgJump to med 25 mg, Oral, Every 6 hours PRN, Itching, Starting on Sat02/13/23 at 1549, Until Virgen 02/14/23 at 1714, Give if unable to swallow tablets/capsules or if patient prefers liquid., documented in this encounter Additional Health Concerns Assessment Noted Time PHQ-9 Depression Total Score: 16 022 10:37 AM CDT documented as of this encounter Care Teams Chief Of Safety And Protection Relationship Specialty Start Date End Date Zack Mancuso MD [address] [place] [id number] PCP - General FAMILY PRACTICE 10/12/22 documented as of this encounter
--- OUTSIDE RECORDS SUMMARY | 2024-03-15 14:33 | XMS_ITS | Encounter Summary ---
Author Organization [facility] Address [address] [place] [address]. [place], [place] [id number] [place] [id number] Care Team Providers Care Lens Silverer Name Role Phone La Nena Ferro [employer] IN[employer] ACT CAREER MANAGER-BC Primary Care Provider Miguel Taylor MD Primary Care Provider [phone] Encounter Details Date Type Department Care Team (Late st Contact Info) Description 08/16/2022 Coverity Message [address] [phone] La Nena Ferro FNP-PATRICIA Uti Social History Tobacco Use Types Packs/Day Years [...] Noted Time PHQ-9 Depression Total Score: 16 01/02/2 022 10:37 AM CDT documented as of this encounter Care Teams Lens Silverer Relationship Specialty Start Date End Date La Nena Ferro FNP- PCP - General Nurse Practitioner Family 06/20/22 3 Miguel Mancuso MD [address] [place] [address] PCP - General FAMILY PRACTICE 10/12/22 documented as of this encounter
--- OUTSIDE RECORDS SUMMARY | 2024-03-15 14:33 | XMS_ITS | Encounter Summary ---
Author Organization [facility] Address [address] [place] [address]. [place], [place] [id number] [place] [address] Care Team Providers Care Hip Hop Dancer Name Role Phone Miguel Mancuso MD Primary Care Provider [phone] Reason for Referral * Imaging (Emergency) - New Request Specialty Diagnoses / Procedures Referred By Contac t Referred To Contact RADIOLOGY Procedures CTA CHEST PE PROTOCOL Duke Schmitz MD [address] [place] [address] Phone: tel: fax: Referral ID Status Reason Start Date Expiration Date V isits Requested Visits Authorized [id number] New Request 12/09/2023 12/08/2024 1 1 * Imaging (Emergency) - New Request Specialty Diagnoses / Procedures Referred By Contac t Referred To Contact RADIOLOGY Procedures CT HEAD WO CON Cassandra Ortiz PA [address] [place] [address] Phone: tel: fax: Referral ID Status Reason Start Date Expiration Date V isits Requested Visits Authorized [id number] New Request 12/09/2023 12/08/2024 1 1 Reason for Visit * Reason Comments High Blood Pressure Encounter Details Date Type Department Care Team (Late st Contact Info) Description 12/09/2023 7:57 PM CDT - 12/10/2023 1:10 AM CDT Emergency [facility] Emergency Room [facility] [address] Duke Schmitz MD [address] [place] [address] [id number] High Blood Pressure Discharge Disposition: Home or Self Care (Routine Discharge) Social History Tobacco Use Types Packs/Day Years Used Date Smoking Tobacco: Never Smokeless Tobacco: Never Alcohol Use Standard Drinks/Week Comments Never 0 (1 standard drink = 0.6 oz pur e alcohol) [facility] Utilities Answer Date Recorded In the [...] How often do you attend chur or hindu services? Patient declined 02/13/2023 Do you belong to any clubs o r organizations such as baptism groups, unions, fraternal or athletic groups, or [...] Recorded Patient Health Questionnaire-2 Score 0 08/13/2022 [facility] [place] of Occupat ional Health - Occupational Stress [...] Sign Reading Time Taken Comments Blood Pressure 117/82 12/09/2023 11:00 PM CDT Pulse 99 12/09/2023 11:00 PM CDT Temperature 36.7 ??C (98 ??F) 12/09/2023 7:53 PM CDT Respiratory Rate 20 12/09/2023 11:00 PM CDT Oxygen Saturation 100% 12/09/2023 11:00 PM CDT Inhaled Oxygen Concentration - - Weight 59 kg (130 lb) 12/09/2023 7:53 PM CDT Height 160 cm (5' 3 ) 12/09/2023 7:53 PM CDT Body Mass Index 23.03 12/09/2023 7:53 PM CDT documented in this encounter Functional Status * [...] Date Author Status No 02/13/2023 6:35 AM ROTOR ASSEMBLER Ata Avendano N, [place] N Active documented in this encounter Discharge Instructions * Attachments The following attachments cannot be sent through Care Everywhere. * How to Adapt to Physical Changes During (Faroese) * Preeclampsia Discharge Instructions (Faroese) documented in this encounter Medications at Time [...] hours as needed. 90 tablet 02/14/2023 methylPREDNISolo BOBBY moss, (MEDROL DOSEPAK) 4 MG tablet Take as directed on package 02/10/2023 VITAMINS 28-0.8 MG tablet Take 1 tablet by mouth nightly at bedtime. at bedtime 07/02/2022 albuterol sulfate HFA 108 (90 Base) MCG/ACT inhaler Inhale 2 puffs into the lungs. 02/10/2023 documented as of this encounter Procedure Notes * Jennifer Baker MD - 12/09/2023 10:46 PM CDT Non-Stress Test Indication: Reported PEC, Stroke rule out Gestational Age: 30 2/7 weeks Baseline: 140s bpm Variability: moderate Accelerations: present Decelerations: absent TOCO: acontractile Interpretation: reactive Recommendation(s): cleared by ob Start: 2124 End: 2145 I personally reviewed the non-stress test strips Jennifer Baker MD documented in this encounter Consult Notes * Jennifer Baker MD - 12/09/2023 10:45 PM CDT Gymnastics Coach Hospitalist Gynecologic Consult Reason for Consult: 30 weeks with PEC HPI: Diogenes Monet is a 23-year-old at 30 2/7 weeks female who presented with complaints of what started as right sided numbness/tingling, which then radiated to her left side. She also states that she had a terrible headache with palpitations that she states she has had several times during the . She states that she had been seen at [facility], however shewas in the process of switching obs to [facility]. She states that she was seen at [facility] this past Saturday where she was diagnosed with pre eclampsia (by blood pressures 140s/90s and elevated urine pc). She was told at [facility] that she could not deliver there because of her PEC, so she arranged to transfer care again to [facility]. She was seen at [facility] today where she had a PC of 0.09, and was normotensive. She states that she has a BP cuff at home and has just started checking them regularly. She has started collecting a 24 hour urine protein, and is supposed to take it in tomorrow. She has an appointment at [facility] on Saturday. She currently denies VB, LOF or contractions. She notes good movement. She denies CHEEMA, vision changes, RUQ pain or epigastric pain. She states that the numbness and tingling have resolved, as have the palpitations. She denies CP or SOA currently. Dr. Schmitz requested my consultation services due to /PEC evaluation. Past Medical History: Past Medical History: Diagnosis Date Asthma ([facility]) Bilateral ovarian cysts Depression History of suicidal ideation Major depression in full remission ([facility]) 10/14/2014 Mass of right breast 07/10/2012 Menorrhagia 10/14/2014 Poor growth affecting management of mother in third trimester ([facility]) 10/11/2017 PTSD (post-traumatic stress disorder) Short interval between pregnancies affecting , antepartum ([facility]) 10/11/2017 Vitamin D deficiency Past Surgical History: Past Surgical History: Procedure Laterality Date ADENOIDECTOMY BREAST SURGERY Bilateral with implants TONSILLECTOMY Family History: No gynecologic or other female cancers Social History: Social History Tobacco Use Smoking status: Never Smokeless tobacco: Never Substance Use Topics Alcohol use: Never Current Medications: No current facility-administered medications on file prior to encounter. Current Outpatient Medications on File Prior to Encounter Medication Sig Dispense Refill albuterol sulfate HFA 108 (90 Base) MCG/ACT inhaler Inhale 2 puffs into the lungs. benzocaine-menthol (DERMOPLAST) 20-0.5 % Aerosol Apply 1 spray topically 4 (four) times daily as needed (Perineal discomfort). 78 g 0 docusate sodium (COLACE) 100 MG capsule Take 1 capsule (100 mg total) by mouth 2 (two) times daily as needed for Constipation. 30 capsule 0 ferrous fumarate 324 mg 324 (106 Fe) MG Tab tablet Take 1 tablet by mouth daily. 90 tablet 0 ibuprofen (MOTRIN) 600 MG tablet Take 1 tablet (600 mg total) by mouth every 6 (six) hours as needed. 90 tablet 0 methylPREDNISolone, BOBBY, (MEDROL DOSEPAK) 4 MG tablet Take as directed on package VITAMINS 28-0.8 MG tablet Take 1 tablet by mouth nightly at bedtime. at bedtime Allergies: Allergies Allergen Reactions Ciprofloxacin Other (see comment) and Shortness of Breath Pt states I can't breath Covid-19 (Adenovirus) Vaccine Throat swelling Pt reported throat had feeling of closing off after last 2 vaccines. Levofloxacin Rash Review of Systems: Gen: Denies fevers or chills CV: Denies chest pain or palpitations Pulm: Denies shortness of breath or cough GI: Denies nausea/vomiting, diarrhea, constipation, or abdominal pain : Denies dysuria, vaginal bleeding. Neuro: Denies headaches or visual changes Psych: Denies symptoms of depression or anxiety Physical Exam: Filed Vitals: 12/09/231952 BP: (!) 134/93 Pulse: (!) 137 Resp: 20 Temp: 98 ??F (36.7 ??C) SpO2: 100% Weight: 59 kg (130 lb) Height: 1.6 m (5' 3 ) General: alert, well appearing, in no apparent distress CV: acyanotic Lungs: respirations non-labored Abdomen: Soft, non distended, gravid Extremities: non tender bilaterally NST: FHT 140s moderate variability, + accels, no decels, reactive and reassuring Result Date: 12/09/[address] Test Date: 2023-12-09 Pat Name: DIOGENES MONET Department: 41 Room: [facility] Gender: Female Fws Faculty Assistant: : 2000 Requested By: CASSANDRA ORTIZ Order Number: [id number] Reading MD: Measurements Intervals Matthews Rate: 120 P: 71 CO: 118 QRS: 82 QRSD: 77 T: -31 QT: 339 QTc: 479 Interpretive Statements SINUS TACHYCARDIA WITH SHORT CO INTERVAL ST DEVIATION AND MODERATE T-WAVE ABNORMALITY, CONSIDER ANTEROLATERAL ISCHEMIA [-0.1+ mV T WAVE IN V3-V6] ST DEVIATION AND MODERATE T-WAVE ABNORMALITY, CONSIDER INFERIOR ISCHEMIA [-0.1+ mV T WAVE IN II/aVF] Compared to ECG 07/22/2018 10:17:34 Short CO interval now present Possible ischemia now present Sinus rhythm no longer present T-wave abnormality still present CT HEAD WO CON Result Date: 12/09/[address] [address] EXAMINATION: CT of the head CLINICAL HISTORY: Vision loss, numbness and tingling, COMPARISON: 03/28/2011 TECHNIQUE: CT examination of the head without contrast was performed with axial images obtained. A radiation dose lowering technique was used for this procedure, which may include, but is not limited to, dose reduction technique, automated exposure control, the use of iterative reconstruction,ALARA (As Low As Reasonably Achievable) techniques, and Image Gently techniques. FINDINGS: There isno evidence of acute intracranial hemorrhage, abnormal extra-axial collections, intracranial mass effect, or midline shift. The ventricles and extra- axial/subarachnoid spaces are unremarkable. There is no definite CT evidence to suggest acute territorial infarction. The calvarium is unremarkable without evidence of acute fracture. The visualized mastoid air cells, paranasal sinuses, and orbits are grossly unremarkable. IMPRESSION: No definite CT evidence for acute intracranial abnormality. Please note that CT has limited sensitivity for the detection of acute ischemia. Referred By: Interpreted By: Nishant Valladares MD, 12/09/2023 8:06 PM Latest Reference Range & Units 12/09/23 20:43 WBC 4.5 - 11.0 x10'3/uL 9.82 RBC 4.20 - 5.40 x10'6/uL 4.25 HGB 12.0 - 16.0 G/DL 11.2 (L) HCT 38.0 - 48.0 % 35.2 (L) MCV 81.0 - 99.0 FL 82.8 MCH 27.0 - 31.0 PG 26.4 (L) MCHC 32.0 - 36.0 G/DL 31.8 (L) RDW 11.5 - 14.5 % 13.9 PLT 130 - 400 x10'3/uL 221 MPV 9.3 - 12.2 FL 11.5 (L): Data is abnormally low Latest Reference Range & Units 12/09/23 20:43 NEUTROPHILS % % 72.3 LYMPHOCYTES % % 17.7 MONOCYTES % % 8.0 IMMATURE GRANS % % 1.0 ABS. NEUTROPHILS 1.80 - 7.70 x10'3/uL 7.09 ABS. LYMPHOCYTES 1.00 - 4.80 x10'3/uL 1.74 ABS. MONOCYTES 0.24 - 0.86 x10'3/uL 0.79 ABS. EOSINOPHILS 0.04 - 0.36 x10'3/uL 0.07 EOSINOPHILS % 0.7 ABS. BASOPHILS 0.01 - 0.08 x10'3/uL 0.03 BASOPHILS % 0.3 ABS. IMMATURE GRANULOCYTES 0.00 - 0.49 x10'3/uL 0.10 Latest Reference Range & Units 12/09/23 21:58 SODIUM S/P/B 136 - 145 MMOL/L 140 POTASSIUM S/P/B 3.5 - 5.1 MMOL/L 3.6 CHLORIDE S/P/B 97 - 115 MMOL/L 108 CO2 21 - 32 MMOL/L 24.0 ANION GAP 2 - 10 MMOL/L 8.0 BUN 7 - 18 MG/DL 7 CREATININE S/P/B 0.55 - 1.02 MG/DL 0.48 (L) BUN CREATININE RATIO 6 - 26 14.6 GFR ESTIMATE >90 ML/MIN/1.73 M2 >90 GLUCOSE 70 - 99 MG/DL 100 (H) CALCIUM S/P/B 8.5 - 10.1 MG/DL 8.7 TOTAL PROTEIN S/P/B 6.4 - 8.2 G/DL 6.5 ALBUMIN S/P/B 3.4 - 5.0 G/DL 2.8 (L) BILIRUBIN TOTAL S/P/B 0.2 - 1.2 MG/DL 0.3 ALKALINE PHOSPHATASE S/P/B 50 - 136 U/L 80 AST 15 - 37 U/L 12 (L) ALT 14 - 55 U/L 14 A/G RATIO 1.0 - 2.0 RATIO 0.8 (L) (L): Data is abnormally low (H): Data is abnormally high Assessment: 23-year-old female, at 30 2/7 presented to ED with: - Right sided numbness and tingling - Maternal Palpitations - Reported PEC Plan/Recommendations: - NST performed and reactive, status reassuring - PEC labs obtained, all WNL as above. Did not order pc ratio as patient had one earlier today which was 0.09 and is in the process of collecting a 24 hour urine protein - Patient currently without subjective findings of PEC. Currently without CHEEMA RUQ pain, epigastric pain or vision changes. - Palpitations and numbness/tingling to be evaluated and cleared by ED From an obstetrical standpoint, patient is stable for discharge to home. Encourage patient to KSA with pcp this week. Discussed that any issues prior to 32 weeks would likely result in need for transfer to [facility]. Discussed blood pressure precautions and PEC precautions. Discussed if severe symptoms occur or severe range blood pressures, encourage to come to closest ED to stabilize. Further ob precautions discussed. On the day of the visit, I spent 80 minutes providing care to this patient including Preparing to see the patient, Obtaining and/or reviewing separately obtained history, Performing a medically appropriate examination and/or evaluation, Counseling and educating the patient/family/caregiver, Ordering medications, tests or procedures, Documenting clinical information in the medical record, Referring and communication with other health childcare administrator, and Independently interpreting results andcommunicating results to the patient/family/caregiver. Jennifer Baker MD [facility] Physician guest relation officer Can be reached through [facility] as ob hospitalist. documented in this encounter ED Notes * Duke Schmitz MD - 12/09/2023 9:50 PM CDT Emergency Department Note Chief Complaint Chief Complaint Patient presents with High Blood Pressure History of Present Illness Patient presents to the emergency department with recent diagnosis of preeclampsia. She has been moving between OB doctors because of insurance reasons. Currently being transferred to [facility] for new diagnosis of preeclampsia although was not started on any blood pressure medications. Told she had protein in her urine but today her urine is negative. She has been having episodesof seeing spots and lightheadedness when standing up for the past few weeks. Today she had numbnessand tingling in both hands I think she might of had a panic attack associated with the other symptoms. Patient is 30 weeks . Reported decreased vision in the right eye. Medical History ALLERGIES: Review of patient's allergies indicates: Allergen Reactions Ciprofloxacin Other (see comment) and Shortness of Breath Pt states I can't breath Covid-19 (Adenovirus) Vaccine Throat swelling Pt reported throat had feeling of closing off after last 2 vaccines. Levofloxacin Rash MEDICATIONS: Prior to Admission medications Medication Sig Start Date End Date Taking? Authorizing Provider albuterol sulfate HFA 108 (90 Base) MCG/ACT inhaler Inhale 2 puffs into the lungs. 02/10/23 02/10/24 Default History Genericprovider benzocaine-menthol (DERMOPLAST) 20-0.5 % Aerosol Apply 1 spray topically 4 (four) times daily as needed (Perineal discomfort). 02/14/23 Ibeth Almonte CNM docusate sodium (COLACE) 100 MG capsule Take 1 capsule (100 mg total) by mouth 2 (two) times daily as needed for Constipation. 02/14/23 Ibeth Almonte CNM ferrous fumarate 324 mg 324 (106 Fe) MG Tab tablet Take 1 tablet by mouth daily. 02/14/23 Ibeth Almonte CNM ibuprofen (MOTRIN) 600 MG tablet Take 1 tablet (600 mg total) by mouth every 6 (six) hours as needed. 02/14/23 Ibeth Almonte CNM methylPREDNISolone, BOBBY, (MEDROL DOSEPAK) 4 MG tablet Take as directed on package 02/10/23 Default History Genericprovider VITAMINS 28-0.8 MG tablet Take 1 tablet by mouth nightly at bedtime. at bedtime 07/02/22 Default History Genericprovider PAST MEDICAL HISTORY: Past Medical History: Diagnosis Date Asthma ([facility]) Bilateral ovarian cysts Depression History of suicidal ideation Major depression in full remission ([facility]) 10/14/2014 Mass of right breast 07/10/2012 Menorrhagia 10/14/2014 Poor growth affecting management of mother in third trimester ([facility]) 10/11/2017 PTSD (post-traumatic stress disorder) Short interval between pregnancies affecting , antepartum ([facility]) 10/11/2017 Vitamin D deficiency PAST SURGICAL HISTORY: Past Surgical History: Procedure Laterality Date ADENOIDECTOMY BREAST SURGERY Bilateral with implants TONSILLECTOMY FAMILY HISTORY: Family History Problem Relation Name Age of Onset Depression Mother Asthma Sister twin Epilepsy Sister Hypotension Maternal Grandmother Diabetes Maternal Grandmother Epilepsy Maternal Grandmother Hypertension Maternal Grandfather Diabetes Maternal Grandfather Epilepsy Paternal Grandmother SOCIAL HISTORY: Social History Tobacco Use Smoking status: Never Smokeless tobacco: Never Vaping Use Vaping status: Never Used Substance Use Topics Alcohol use: Never Drug use: Never Review of Systems ROS negative except for what is documented in the [facility] Physical Exam Filed Vitals: 12/09/231952 BP: (!) 134/93 Pulse: (!) 137 Resp: 20 Temp: 98 ??F (36.7 ??C) SpO2: 100% Weight: 59 kg (130 lb) Height: 1.6 m (5' 3 ) Physical Exam Vitals and nursing note reviewed. Constitutional: General: She is not in acute distress. Appearance: She is well-developed. She is not ill-appearing or diaphoretic. HENT: Head: Normocephalic and atraumatic. Right Ear: External ear normal. Left Ear: External ear normal. Nose: Nose normal. Eyes: General: Right eye: No discharge. Left eye: No discharge. Conjunctiva/sclera: Conjunctivae normal. Cardiovascular: Rate and Rhythm: Regular rhythm. Tachycardia present. Pulmonary: Effort: Pulmonary effort is normal. No respiratory distress. Breath sounds: Normal breath sounds. No wheezing or rales. Abdominal: General: There is distension. Palpations: Abdomen is soft. Tenderness: There is no abdominal tenderness. Comments: Gravid abdomen Musculoskeletal: General: Normal range of motion. Cervical back: Normal range of motion and neck supple. Skin: General: Skin is warm and dry. Coloration: Skin is not pale. Findings: No erythema or rash. Neurological: General: No focal deficit present. Mental Status: She is alert and oriented to person, place, and time. Motor: No abnormal muscle tone. Psychiatric: Behavior: Behavior normal. Thought Content: Thought content normal. Judgment: Judgment normal. Diagnostic Studies / Procedures ELECTROCARDIOGRAMS: Results for orders placed or performed during the hospital encounter of 12/09/23 ECG 12 lead Narrative [place] Test Date: 2023-12-09 Pat Name: DIOGENES MONET Department: 41 Room: [facility] Gender: Female Fws Faculty Assistant: : 2000 Requested By: CASSANDRA ORTIZ Order Number: [id number] Reading MD: Measurements Intervals Matthews Rate: 120 P: 71 CO: 118 QRS: 82 QRSD: 77 T: -31 QT: 339 QTc: 479 Interpretive Statements SINUS TACHYCARDIA WITH SHORT CO INTERVAL ST DEVIATION AND MODERATE T-WAVE ABNORMALITY, CONSIDER ANTEROLATERAL ISCHEMIA [-0.1+ mV T WAVE IN V3-V6] ST DEVIATION AND MODERATE T-WAVE ABNORMALITY, CONSIDER INFERIOR ISCHEMIA [-0.1+ mV T WAVE IN II/aVF] Compared to ECG 07/22/2018 10:17:34 Short CO interval now present Possible ischemia now present Sinus rhythm no longer present T-wave abnormality still present LABORATORY STUDIES: Results for orders placed or performed during the hospital encounter of 12/09/23 D-DIMER, QUANTITATIVE Result Value Ref Range D-DIMER 671 (HH) 0 - 500 ng[FEU]/mL CBC W/DIFF AUTOMATED Result Value Ref Range WBC 9.82 4.5 - 11.0 x10'3/uL RBC 4.25 4.20 - 5.40 x10'6/uL HGB 11.2 (L) 12.0 - 16.0 G/DL HCT 35.2 (L) 38.0 - 48.0 % MCV 82.8 81.0 - 99.0 FL MCH 26.4 (L) 27.0 - 31.0 PG MCHC 31.8 (L) 32.0 - 36.0 G/DL RDW 13.9 11.5 - 14.5 % PLT 221 130 - 400 x10'3/uL MPV 11.5 9.3 - 12.2 FL DIFFERENTIAL TYPE AUTOMATED DIFFERENTIAL NEUTROPHILS % 72.3 % LYMPHOCYTES % 17.7 % MONOCYTES % 8.0 % EOSINOPHILS 0.7 % BASOPHILS 0.3 % IMMATURE GRANS % 1.0 % ABS. NEUTROPHILS 7.09 1.80 - 7.70 x10'3/uL ABS. LYMPHOCYTES 1.74 1.00 - 4.80 x10'3/uL ABS. MONOCYTES 0.79 0.24 - 0.86 x10'3/uL ABS. EOSINOPHILS 0.07 0.04 - 0.36 x10'3/uL ABS. BASOPHILS 0.03 0.01 - 0.08 x10'3/uL ABS. IMMATURE GRANULOCYTES 0.10 0.00 - 0.49 x10'3/uL BASIC METABOLIC PANEL Result Value Ref Range GLUCOSE 102 (H) 70 - 99 MG/DL BUN 7 7 - 18 MG/DL CREATININE S/P/B 0.55 0.55 - 1.02 MG/DL SODIUM S/P/B 139 136 - 145 MMOL/L POTASSIUM S/P/B 3.5 3.5 - 5.1 MMOL/L CHLORIDE S/P/B 108 97 - 115 MMOL/L CO2 22.2 21 - 32 MMOL/L CALCIUM S/P/B 9.1 8.5 - 10.1 MG/DL ANION GAP 8.8 2 - 10 MMOL/L BUN CREATININE RATIO 12.7 6 - 26 GFR ESTIMATE >90 >90 ML/MIN/1.73 M2 COMPREHENSIVE METABOLIC PANEL Result Value Ref Range GLUCOSE 100 (H) 70 - 99 MG/DL BUN 7 7 - 18 MG/DL CREATININE S/P/B 0.48 (L) 0.55 - 1.02 MG/DL SODIUM S/P/B 140 136 - 145 MMOL/L POTASSIUM S/P/B 3.6 3.5 - 5.1 MMOL/L CHLORIDE S/P/B 108 97 - 115 MMOL/L CO2 24.0 21 - 32 MMOL/L CALCIUM S/P/B 8.7 8.5 - 10.1 MG/DL BILIRUBIN TOTAL S/P/B 0.3 0.2 - 1.2 MG/DL TOTAL PROTEIN S/P/B 6.5 6.4 - 8.2 G/DL ALBUMIN S/P/B 2.8 (L) 3.4 - 5.0 G/DL AST 12 (L) 15 - 37 U/L ALT 14 14 - 55 U/L ALKALINE PHOSPHATASE S/P/B 80 50 - 136 U/L ANION GAP 8.0 2 - 10 MMOL/L BUN CREATININE RATIO 14.6 6 - 26 A/G RATIO 0.8 (L) 1.0 - 2.0 RATIO GFR ESTIMATE >90 >90 ML/MIN/1.73 M2 IMAGING STUDIES CTA CHEST PE PROTOCOL Final Result by User, [id number] (12/10 7) [address] [address] EXAMINATION: CTA CHEST PE PROTOCOL, 12/09/2023 11:45 PM TECHNIQUE: Computed tomographic images of the chest were obtained after the administration of 80 mL of Isovue 370 injected through the IV, without evidence of adverse reaction. Additional coronal and sagittal reformatted as well as maximum intensity projection images were generated. A dose lowering technique was used for this procedure, which may include, but is not limited to, dose reduction technique, automated exposure control, the use of iterative reconstruction, and ALARA (As Low As Reasonably Achievable) / Image Gently techniques. HISTORY: Currently 30 weeks who presents reporting she cannot see on her right eye and has numbness and tingling to her right side. Diagnosed with preeclampsia COMPARISON: Chest radiograph 12/27/2021 FINDINGS: The pulmonary arteries are well-opacified there is no pulmonary thromboembolic disease. There is no focal pulmonary consolidation. There is no pleural effusion. There is no pneumothorax. The heart size is normal. There is no pericardial abnormality. The caliber of the thoracic aorta is normal. There is no mediastinal adenopathy. There is no acute fracture nor destructive process of the visualized osseous structures. IMPRESSION: 1. No pulmonary thromboembolic disease. 2. No definite acute CT findings within the chest. Referred By: Interpreted By: Mumtaz Cook MD, 12/09/2023 11:[address] HEAD WO CON Final Result by User, [id number] (12/08 2012) [address] [place], [place] [address] EXAMINATION: CT of the head CLINICAL HISTORY: Vision loss, numbness and tingling, COMPARISON: 03/28/2011 TECHNIQUE: CT examination of the head without contrast was performed with axial images obtained. A radiation dose lowering technique was used for this procedure, which may include, but is not limited to, dose reduction technique, automated exposure control, the use of iterative reconstruction, ALARA (As Low As Reasonably Achievable) techniques, and Image Gently techniques. FINDINGS: There is no evidence of acute intracranial hemorrhage, abnormal extra-axial collections, intracranial mass effect, or midline shift. The ventricles and extra-axial/subarachnoid spaces are unremarkable. There is no definite CT evidence to suggest acute territorial infarction. The calvarium is unremarkable without evidence of acute fracture. The visualized mastoid air cells, paranasal sinuses, and orbits are grossly unremarkable. IMPRESSION: No definite CT evidence for acute intracranial abnormality. Please note that CT has limited sensitivity for the detection of acute ischemia. Referred By: Interpreted By: Nishant Valladares MD, 12/09/2023 8:06 PM ED Course / Medical Decision Making Medical Decision Making ED Course as of 12/10/23 0040 SatDec 10, 2023 0037 Due to episodes of lightheadedness and dizziness with initial elevated tachycardia D-dimer ordered. It was slightly elevated. Discussed risks and benefits of that with the patient. She states she does not want to take any risks and agrees to the CAT scan. It is negative for PE. Patient has been feeling better since arrival. Blood pressures have been slightly elevated but not in the preeclamptic range. She was evaluated by BEHAVIORAL HEALTH SPECIALIST. Overall recommendation to follow-up with her OB as previously planned [MS] 0038 Bedside ultrasound not completed in the emergency department because it is documented that jay previously had 1 with an IUP at 30 weeks [MS] 0039 CT head ordered and negative. [MS] 0040 EKG shows sinus tachycardia with short CO intervals. [MS] ED Course User Index [MS] Duke Schmitz MD Rhythm strip ordered and interpreted: NSR, Rate 110, No ectopy Medications iopamidol (ISOVUE-370) 76 % injection 80 mL (80 mLs Intravenous Given 12/10/23 0007) Clinical Impression 30 weeks gestation of (HHS/HCC) (Primary) Lightheadedness Current Discharge Medication List Disposition: Discharge Follow-Up: Miguel Mancuso MD [address] [facility] [id number] Schedule an appointment as soon as possible for a visit in 3 days DUKE SCHMITZ MD 12/10/2023 Duke Schmitz MD 12/10/23 0040 * Kong Valencia RN - 12/09/2023 7:56 PM CDT Pt to the ed with c/o HTN, blurry vision and right sided numbness. Pt reports sx began 1 hour ago. States she is 30 weeks and dx with preeclampsia. Reports decreased vision in right eye. * MEME Barcenas - 12/09/2023 7:53 PM CDT [place], [place] EMERGENCY DEPARTMENT ENCOUNTER Medical Screening Examination 12/09/23 7:55 PM Chief Complaint : High Blood Pressure HPI : Diogenes Monet is a 23-year-old female currently 30 weeks who presents reporting she cannot see on her right eye and has numbness and tingling to her right side. Diagnosed with preeclampsia Vital Signs: Filed Vitals: 12/09/231952 BP: (!) 134/93 Pulse: (!) 137 Resp: 20 Temp: 98 ??F (36.7 ??C) SpO2: 100% Weight: 59 kg (130 lb) Height: 1.6 m (5' 3 ) Physical exam: A brief physical exam was completed to facilitate/expedite patient care. Plan: Necessary labs/imaging/medications ordered to initiate pt care. Pt advised on CT - discussing risks and benefits in consideration of and consents. MEME Barcenas 12/09/231954 Cosigned by Alexandre Whitley MD at 12/09/2023 9:37 PM CDT documented in this encounter Plan of Treatment Not on file documented as of this encounter Procedures Procedure Name Priority Date/Time Associated Diagnosis Comments CTA CHEST PE PROTOCOL STAT 12/10/2023 12:07 AM CDT NONSTRESS TEST STAT 12/09/2023 10:48 PM CDT COMPREHENSIVE METABOLIC PANEL STAT 12/09/2023 9:58 PM CDT BASIC METABOLIC PANEL STAT 12/09/2023 8:43 PM CDT D-DIMER, QUANTITATIVE STAT 12/09/2023 8:43 PM CDT CBC W/DIFF AUTOMATED STAT 12/09/2023 8:43 PM CDT ECG 12-LEAD Routine 12/09/2023 8:[address] HEAD WO CON STAT 12/09/2023 8:06 PM CDT documented in this encounter Results * CTA CHEST PE PROTOCOL (12/10/2023 12:07 AM CDT) Anatomical Region Laterality Modality Chest Computed Tomogra phy 12/09/2023 11:4 5 PM CDT Impressions 12/09/2023 11:49 PM CDT IMPRESSION: 1. ??No pulmonary thromboembolic disease. 2. ??No definite acute CT findings within the chest. Referred By: ?? Interpreted By: Mumtaz Cook MD, 12/09/2023 11:45 PM Narrative 12/09/2023 11:49 PM CDT [address] [address] EXAMINATION: CTA CHEST PE PROTOCOL, 12/09/2023 11:45 PM TECHNIQUE: Computed tomographic images of the chest were obtained after the administration of 80 mL of Isovue 370 injected through the IV, without evidence of adverse reaction. Additional coronal and sagittal reformatted as well as maximum intensity projection images were generated. A dose lowering technique was used for this procedure, which may include, but is not limited to, dose reduction technique, automated exposure control, the use of iterative reconstruction, and ALARA (As Low As Reasonably Achievable) / Image Gently techniques. HISTORY: Currently 30 weeks who presents reporting she cannot see on her right eye and has numbness and tingling to her right side. ??Diagnosed with preeclampsia COMPARISON: Chest radiograph 12/27/2021 FINDINGS: The pulmonary arteries are well-opacified there is no pulmonary thromboembolic disease. ??There is no focal pulmonary consolidation. ??There is no pleural effusion. ??There is no pneumothorax. ??The heart size is normal. ??There is no pericardial abnormality. ??The caliber of the thoracic aorta is normal. ??There is no mediastinal adenopathy. ??There is no acute fracture nor destructive process of the visualized osseous structures. Procedure Note Mumtaz Cook MD - 12/10/2023 [facility] [address] [place], [place] [address] EXAMINATION: CTA CHEST PE PROTOCOL, 12/09/2023 11:45 PM TECHNIQUE: Computed tomographic images of the chest were obtained afterthe administration of 80 mL of Isovue 370 injected through the IV, withoutevidence of adverse reaction. Additional coronal and sagittal reformattedas well as maximum intensity projection images were generated. A doselowering technique was used for this procedure, which may include, but isnot limited to, dose reduction technique, automated exposure control, theuse of iterative reconstruction, and ALARA (As Low As ReasonablyAchievable) / Image Gently techniques. HISTORY: Currently 30 weeks who presents reporting she cannot seeon her right eye and has numbness and tingling to her right side.Diagnosed with preeclampsia COMPARISON: Chest radiograph 12/27/2021 FINDINGS: The pulmonary arteries are well-opacified there is no pulmonarythromboembolic disease. There is no focal pulmonary consolidation. Thereis no pleural effusion. There is no pneumothorax. The heart size isnormal. There is no pericardial abnormality. The caliber of the thoracicaorta is normal. There is no mediastinal adenopathy. There is no acutefracture nor destructive process of the visualized osseous structures. IMPRESSION: 1. No pulmonary thromboembolic disease. 2. No definite acute CT findings within the chest. Referred By: Interpreted By: Mumtaz Cook MD, 12/09/2023 11:45 PM Duke Schmitz MD CT Final Result * (ABNORMAL) COMPREHENSIVE METABOLIC PANEL (12/09/2023 9:58 PM CDT) GLUCOSE 100(H) 70 - 99 MG/DL 12/09/2023 10:39 PM CDT [facility] BUN 7 7 - 18 MG/DL 12/09/2023 10:39 PM CDT [facility] CREATININE S/P/B 0.48(L) 0.55 - 1.02 MG/DL 12/09/2023 10:39 PM CDT [facility] SODIUM S/P/B 140 136 - 145 MMOL/L 12/09/2023 10:39 PM CDT [facility] POTASSIUM S/P/B 3.6 3.5 - 5.1 MMOL/L 12/09/2023 10:39 PM CDT [facility] CHLORIDE S/P/B 108 97 - 115 MMOL/L 12/09/2023 10:39 PM CDT [facility] CO2 24.0 21 - 32 MMOL/L 12/09/2023 10:39 PM CDT [facility] CALCIUM S/P/B 8.7 8.5 - 10.1 MG/DL 12/09/2023 10:39 PM CDT [facility] BILIRUBIN TOTAL S/P/B 0.3 0.2 - 1.2 MG/DL 12/09/2023 10:39 PM T [facility] Comment: THIS ASSAY IS NOT RECOMMENDED FOR PATIENTS UNDERGOING TREATMENT WITH ELTROMBOPAG DUE TO THE POTENTIAL FOR FALSELY ELEVATED RESULTS. TOTAL PROTEIN S/P/B 6.5 6.4 - 8.2 G/DL 12/09/2023 10:39 PM CDT [facility] ALBUMIN S/P/B 2.8(L) 3.4 - 5.0 G/DL 12/09/2023 10:39 PM T [facility] AST 12(L) 15 - 37 U/L 12/09/2023 10:39 PM T [facility] ALT 14 14 - 55 U/L 12/09/2023 10:39 PM T [facility] ALKALINE PHOSPHATASE S/P/B 80 50 - 136 U/L 12/09/2023 10:39 PM T [facility] ANION GAP 8.0 2 - 10 MMOL/L 12/09/2023 10:39 PM T [facility] BUN CREATININE RATIO 14.6 6 - 26 12/09/2023 10:39 PM T [facility] A/G RATIO 0.8(L) 1.0 - 2.0 RATIO 12/09/2023 10:39 PM [facility] GFR ESTIMATE >90 >90 ML/MIN/1.7 3 M2 12/09/2023 10:39 PM T [facility] Comment: NOTE: eGFR is not calculated for patients <18 years of age or gender unknown. This is an estimated GFR calculation using the new CKD EPI creatinine equation without race and so does not require a correction factor for race. This estimated GFR should not be used for calculating drug doses. 12/09/2023 9:58 PM CDT us Jennifer Baker MD LABORATORY Final Result [facility] [address] [place] [address], * (ABNORMAL) BASIC METABOLIC PANEL (12/09/2023 8:43 PM CDT) [facility] GLUCOSE 102(H) 70 - 99 MG/DL 12/09/2023 9:31 PM CDT [facility] BUN 7 7 - 18 MG/DL 12/09/2023 9:31 PM CDT [facility] CREATININE S/P/B 0.55 0.55 - 1.02 MG/DL 12/09/2023 9:31 PM CDT [facility] SODIUM S/P/B 139 136 - 145 MMOL/L 12/09/2023 9:31 PM CDT [facility] POTASSIUM S/P/B 3.5 3.5 - 5.1 MMOL/L 12/09/2023 9:31 PM CDT [facility] CHLORIDE S/P/B 108 97 - 115 MMOL/L 12/09/2023 9:31 PM CDT [facility] CO2 22.2 21 - 32 MMOL/L 12/09/2023 9:31 PM CDT [facility] CALCIUM S/P/B 9.1 8.5 - 10.1 MG/DL 12/09/2023 9:31 PM CDT [facility] ANION GAP 8.8 2 - 10 MMOL/L 12/09/2023 9:31 PM CDT [facility] BUN CREATININE RATIO 12.7 6 - 26 12/09/2023 9:31 PM CDT [facility] GFR ESTIMATE >90 >90 ML/MIN/1.7 3 M2 12/09/2023 9:31 PM CDT [facility] Comment: NOTE: eGFR is not calculated for patients <18 years of age or gender unknown. This is an estimated GFR calculation using the new CKD EPI creatinine equation without race and so does not require a correction factor for race. This estimated GFR should not be used for calculating drug doses. 12/09/2023 8:43 PM CDT Duke Schmitz MD LABORATORY Final Result [facility] [address] [place] [address], * (ABNORMAL) CBC W/DIFF AUTOMATED (12/09/2023 8:43 PM CDT) WBC 9.82 4.5 - 11.0 x10'3/uL 12/09/2023 9:16 PM CDT [facility] RBC 4.25 4.20 - 5.40 x10'6/uL 12/09/2023 9:16 PM CDT [facility] HGB 11.2(L) 12.0 - 16.0 G/DL 12/09/2023 9:16 PM CDT [facility] HCT 35.2(L) 38.0 - 48.0 % 12/09/2023 9:16 PM CDT [facility] MCV 82.8 81.0 - 99.0 FL 12/09/2023 9:16 PM CDT [facility] MCH 26.4(L) 27.0 - 31.0 PG 12/09/2023 9:16 PM CDT [facility] MCHC 31.8(L) 32.0 - 36.0 G/DL 12/09/2023 9:16 PM CDT [facility] RDW 13.9 11.5 - 14.5 % 12/09/2023 9:16 PM CDT [facility] PLT 221 130 - 400 x10'3/uL 12/09/2023 9:16 PM CDT [facility] MPV 11.5 9.3 - 12.2 FL 12/09/2023 9:16 PM CDT [facility] DIFFERENTIAL TYPE AUTOMATED DIFFERENTIAL 12/09/2023 9:16 PM CDT [facility] NEUTROPHILS % 72.3 % 12/09/2023 9:16 PM CDT [facility] LYMPHOCYTES % 17.7 % 12/09/2023 9:16 PM CDT [facility] MONOCYTES % 8.0 % 12/09/2023 9:16 PM CDT [facility] EOSINOPHILS 0.7 % 12/09/2023 9:16 PM CDT [facility] BASOPHILS 0.3 % 12/09/2023 9:16 PM CDT [facility] IMMATURE GRANS % 1.0 % 12/09/19 9:16 PM CDT [facility] ABS. NEUTROPHILS 7.09 1.80 - 7.70 x10'3/uL 12/09/2023 9:16 PM CDT [facility] ABS. LYMPHOCYTES 1.74 1.00 - 4.80 x10'3/uL 12/09/2023 9:16 PM CDT [facility] ABS. MONOCYTES 0.79 0.24 - 0.86 x10'3/uL 12/09/2023 9:16 PM CDT [facility] ABS. EOSINOPHILS 0.07 0.04 - 0.36 x10'3/uL 12/09/2023 9:16 PM CDT [facility] ABS. BASOPHILS 0.03 0.01 - 0.08 x10'3/uL 12/09/2023 9:16 PM CDT [facility] ABS. IMMATURE GRANULOCYTES 0.10 0.00 - 0.49 x10'3/uL 12/09/2023 9:16 PM CDT [facility] 12/09/2023 8:43 PM CDT Duke Schmitz MD LABORATORY Final Result Performing Organization Address City/[facility]/ZIP Co de Phone Number [facility] [address] [place] [address], [place] [phone] * (ABNORMAL) D-DIMER, QUANTITATIVE (12/09/2023 8:43 PM CDT) D-DIMER 671(HH) 0 - 500 ng{FEU}/mL 12/09/2023 9:43 PM CDT [facility] Comment: D-Dimer values less than or equal to 500 ng/mL FEU have a negative predictive value of >95% for exclusion of deep vein thrombosis and pulmonary embolism. In patients over 50 (who tend to have higher normal baseline D-Dimer values), recent studies suggest age-adjusted D-Dimer cutoff values (calculated as: age [years] x 10 ng/mL) result in equivalent outcomes and no additional false negative findings. Successful Call: DDIMR called 12/09/2023 09:44 PM to EMERGENCY ROOM ([id number]/WILMA AMAYA) by [id number]. 12/09/2023 8:43 PM CDT Duke Schmitz MD LABORATORY Final Result Performing Organization Address City/[facility]/ZIP Co de Phone Number [facility] [address] [place] [address], [place] [phone] * ECG 12 lead (12/09/2023 8:26 PM CDT) 12/09/2023 8:26 PM CDT Narrative [facility] - 12/10/2023 12:45 PM CDT ?[facility] ? [address] [place] ? Test Date: ?2023-12-09 Pat Name: ? DIOGENES MONET ?Department: ?? 41 ? Room: ? GUI Gender: ? Female ? Fws Faculty Assistant: ?? : ?2000 ? Requested By: CASSANDRA ORTIZ Order Number: [id number] ? Reading MD: ?? Josue Vance ? Measurements Intervals ?Matthews ? Rate: ? 120 ?P: ?71 CO: ? 118 ?QRS: ?82 QRSD: ? 77 ? T: ?-31 QT: ? 339 ? QTc: ?479 ? Interpretive Statements SINUS TACHYCARDIA ST DEVIATION AND MODERATE T-WAVE ABNORMALITY, CONSIDER ANTEROLATERAL ISCHEMIA [-0.1+ mV T WAVE IN V3-V6] ST DEVIATION AND MODERATE T-WAVE ABNORMALITY, CONSIDER INFERIOR ISCHEMIA [-0.1+ mV T WAVE IN II/aVF] Compared to ECG 07/22/2018 10:17:34 Possible ischemia now present Sinus rhythm no longer present T-wave abnormality still present Procedure Note Josue Vance MD - 12/10/[address] [facility] Test Date: 2023-12-09 Pat Name: DIOGENES MONET Department: 41 Room: GUI Gender: Female Fws Faculty Assistant: : 2000 Requested By: CASSANDRA ORTIZ Order Number: [id number] Reading MD: Josue Vance Measurements Intervals Matthews Rate: 120 P: 71 CO: 118 QRS: 82 QRSD: 77 T: -31 QT: 339 QTc: 479 Interpretive Statements SINUS TACHYCARDIA ST DEVIATION AND MODERATE T-WAVE ABNORMALITY, CONSIDER ANTEROLATERALISCHEMIA [-0.1+ mV T WAVE IN V3-V6] ST DEVIATION AND MODERATE T-WAVE ABNORMALITY, CONSIDER INFERIOR ISCHEMIA [-0.1+ mV T WAVE IN II/aVF] Compared to ECG 07/22/2018 10:17:34 Possible ischemia now present Sinus rhythm no longer present T-wave abnormality still present Duke Schmitz MD ECG ORDERABLES Final Result [facility] * CT HEAD WO CON (12/09/2023 8:06 PM CDT) Anatomical Region Laterality Modality Head Computed Tomogra phy 12/09/2023 8:06 PM CDT Impressions 12/09/2023 8:12 PM CDT IMPRESSION: No definite CT evidence for acute intracranial abnormality. Please note that CT has limited sensitivity for the detection of acute ischemia. ?? Referred By: ?? Interpreted By: Nishant Valladares MD, 12/09/2023 8:06 PM Narrative 12/09/2023 8:12 PM CDT [address] [address] EXAMINATION: CT of the head CLINICAL HISTORY: Vision loss, numbness and tingling, COMPARISON: 03/28/2011 TECHNIQUE: CT examination of the head without contrast ??was performed with axial images obtained. ??A radiation dose lowering technique was used for this procedure, which may include, but is not limited to, dose reduction technique, automated exposure control, the use of iterative reconstruction, ALARA (As Low As Reasonably Achievable) techniques, and Image Gently techniques. FINDINGS: There is no evidence of acute intracranial hemorrhage, abnormal extra-axial collections, intracranial mass effect, or midline shift. The ventricles and extra-axial/subarachnoid spaces are unremarkable. There is no definite CT evidence to suggest acute territorial infarction. The calvarium is unremarkable without evidence of acute fracture. The visualized mastoid air cells, paranasal sinuses, and orbits are grossly unremarkable. Procedure Note Nishant Valladares MD - 12/09/2023 [facility] [address] [place], [place] [address] EXAMINATION: CT of the head CLINICAL HISTORY: Vision loss, numbness and tingling, COMPARISON: 03/28/2011 TECHNIQUE: CT examination of the head without contrast was performed withaxial images obtained. A radiation dose lowering technique was used forthis procedure, which may include, but is not limited to, dose reductiontechnique, automated exposure control, the use of iterativereconstruction, ALARA (As Low As Reasonably Achievable) techniques, andImage Gently techniques. FINDINGS: There is no evidence of acute intracranial hemorrhage, abnormalextra-axial collections, intracranial mass effect, or midline shift. Theventricles and extra-axial/subarachnoid spaces are unremarkable. There isno definite CT evidence to suggest acute territorial infarction. Thecalvarium is unremarkable without evidence of acute fracture. Thevisualized mastoid air cells, paranasal sinuses, and orbits are grosslyunremarkable. IMPRESSION: No definite CT evidence for acute intracranial abnormality. Please note that CT has limited sensitivity for the detection of acuteischemia. Referred By: Interpreted By: Nishant Valladares MD, 12/09/2023 8:[address] Final Resul t documented in this encounter Visit Diagnoses Diagnosis 30 weeks gestation of ([facility])- Primary state, incidental Lightheadedness Dizziness and giddiness documented in this encounter Administered Medications Inactive Administered Medications - up to 3 most recent administrations Medication Order MAR Action Action Date Dose Rate Site iopamidol (ISOVUE-370) 76 % injection 80 mL 80 mL, Intravenous, IMG once as needed, Contrast, 1 dose, Starting on 12/09/23 at 2258, Until Sat12/10/23 at 0007 Given 12/10/2023 12:07 AM CDT 80 mLs documented in this encounter Active and Recently Administered Medications Times are shown in CDT. PRN Medication Order 12/08/2023 12/09/2023 12/10/2023 iopamidol (ISOVUE-370) 76 % injection 80 mL (COMPLETED) 80 mL, Intravenous, IMG once as needed, Contrast, 1 dose, Starting on 12/09/23 at 2258, Until Sat12/10/23 at 0007 0007 (Given - Provid er: Dara Castellanos, RTR) documented in this encounter Additional Health Concerns Assessment Noted Time PHQ-9 Depression Total Score: 16 022 10:37 AM CDT documented as of this encounter Care Teams Hip Hop Dancer Relationship Specialty Start Date End Date Miguel Mancuso MD [address] [place] [address] PCP - General FAMILY PRACTICE 10/12/22 documented as of this encounter
--- OUTSIDE RECORDS SUMMARY | 2024-03-15 14:33 | XMS_ITS | Encounter Summary ---
Author Organization [facility] Address [address] [place] [address]. [place], [place] [address] [place] [address] Care Team Providers Care Agriculture Teacher Name Role Phone Victoria Tarango GAME PRESERVE MANAGER-BC Primary Care Provider Unav ailable Reason for Referral * Imaging (Emergency) - Closed Specialty Diagnoses / Procedures Referred By Dora oconnor Referred To Contact RADIOLOGY Diagnoses Right sided abdominal pain Hematuria, unspecified type Procedures US RETROPERITONEAL COMP Victoria Tarango FNP-BC Referral ID Status Reason Start Date Expiration Date Visits Re quested Visits Authorized [id number] Closed 08/13/2022 08/14/2023 1 1 Reason for Visit * Imaging (Emergency) - Closed Specialty Diagnoses / Procedures Referred By Dora oconnor Referred To Contact RADIOLOGY Diagnoses Right sided abdominal pain Hematuria, unspecified type Procedures US RETROPERITONEAL COMP Victoria Tarango, MARA-PATRICIA Referral ID Status Reason Start Date Expiration Date Visits Re quested Visits Authorized [id number] Closed 08/13/2022 08/14/2023 1 1 Encounter Details Date Type Department Care Team (Latest Contact Info) Description 08/13/2022 3:40 PM CDT - 08/13/2022 11:59 PM CDT Hospital Encounter [facility] Ultrasound [address] [place], [place] [address] Victoria Tarango FNP-BC Discharge Disposition: Home or Self Care (Routine [...] PM CDT documented as of this encounter Medications at Time of Discharge VITAMINS 28-0.8 MG tablet Take 1 tablet by mouth nightly at bedtime. at bedtime 07/02/2022 metoclopramide (REGLAN) 10 MG tablet Take 1 tablet (10 mg total) by mouth every 6 (six) hours. 08/12/2022 02/13/2023 documented as of this encounter Plan of Treatment Not on file documented as of this encounter Procedures Procedure Name Priority Date/Time Associated Diagnosis Comments US RETROPERITONEAL COMP STAT 08/14/19 4:20 PM CDT Right sided abdominal pain Hematuria, unspecified type documented in this encounter Results * US RETROPERITONEAL COMP (08/13/2022 4:20 PM CDT) Anatomical Region Laterality Modality Abdomen Ultrasound 08/13/2022 4:34 PM CDT Impressions 08/13/2022 4:37 PM CDT IMPRESSION: 1. Unremarkable sonographic appearance of the kidneys. 2. Nonvisualization of the left ureteral jet without signs of obstructive uropathy. 3. No urinary bladder mass or calculus demonstrated. Ordered By: VICTORIA TARANGO Interpreted By: Hay Oneal MD, 08/13/2022 4:34 PM Narrative 08/13/2022 4:37 PM CDT Examination: Ultrasound of the kidneys and urinary bladder. Exam time: 1545 hours. Clinical history: Right-sided pain for three days. Reported history of urolithiasis. The patient is . Comparison: CT of the abdomen and pelvis, 06/18/2018 ([facility]). Technique: Grayscale and color Doppler images. Findings: The right kidney measures 11 x 4.4 x 5.4 cm. The left kidney measures 12.4 x 4.2 x 5.4 cm. Cortical thickness and echogenicity appear normal. Flow to both kidneys is documented on color Doppler. No renal mass or calculus is identified. There is no hydronephrosis. The right ureteral jet is demonstrated. The left ureteral jet was not visualized. No urinary bladder mass or calculus is demonstrated. Procedure Note Hay Oneal MD - 08/13/2022 Examination: Ultrasound of the kidneys and urinary bladder. Exam time: 1545 hours. Clinical history: Right-sided pain for three days. Reported history ofurolithiasis. The patient is . Comparison: CT of the abdomen and pelvis, 06/18/2018 ([facility]). Technique: Grayscale and color Doppler images. Findings: The right kidney measures 11 x 4.4 x 5.4 cm. The left kidneymeasures 12.4 x 4.2 x 5.4 cm. Cortical thickness and echogenicity appearnormal. Flow to both kidneys is documented on color Doppler. No renal massor calculus is identified. There is no hydronephrosis. The right ureteraljet is demonstrated. The left ureteral jet was not visualized. No urinarybladder mass or calculus is demonstrated. IMPRESSION: 1. Unremarkable sonographic appearance of the kidneys. 2. Nonvisualization of the left ureteral jet without signs of obstructiveuropathy. 3. No urinary bladder mass or calculus demonstrated. Ordered By: VICTORIA TARANGO Interpreted By: Hay Oneal MD, 08/13/2022 4:34 PM us Victoria Tarango GAME PRESERVE MANAGER-BC ULTRASOUND Final Resul t documented in this encounter Visit Diagnoses Diagnosis Right sided abdominal pain Abdominal pain, unspecified site Hematuria, unspecified type documented in this encounter Additional Health Concerns Assessment Noted Time PHQ-9 Depression Total Score: 16 022 10:37 AM CDT documented as of this encounter Care Teams Agriculture Teacher Relationship Specialty Start Date End Date Victoria Tarango, [facility]- PCP - General Nurse Practitioner Family 06/20/22 3 documented as of this encounter
--- OUTSIDE RECORDS SUMMARY | 2024-03-15 14:33 | XMS_ITS | Encounter Summary ---
Author Organization [facility] Address [address] [place] [address]. [place], [place] [address] [place] [id number] Care Team Providers Care Melting Furnace Skimmer Name Role Phone Miguel Mancuso MD Primary Care Provider [phone] Encounter Details Date Type Department Care Team (Late st Contact Info) Description 06/26/2023 [employer] Message [address] [phone] [facility] Provider Schedule Appointment - Annual Physical Social History Tobacco Use Types Packs/Day Years Used Date Smoking Tobacco: Never Smokeless Tobacco: Never Alcohol Use Standard Drinks/Week Comments Never 0 (1 standard drink = 0.6 oz pur e alcohol) [facility] Utilities Answer Date Recorded In the [...] How often do you attend chur or samaritan services? Patient declined 02/13/2023 Do you belong [...] Recorded Patient Health Questionnaire-2 Score 0 08/13/2022 [facility] Occupational Stress Questionnaire Answer Date [...] in a nursing home (including now)? No 02/13/2023 Comments No [...] AM Ata Lau, R N Active * Are you blind [...] Date Author Status No 02/13/2023 6:35 AM CMA Ata Avendano R N Active documented in this encounter Plan of Treatment Not on file documented as of this encounter Visit Diagnoses Not on filedocumented in this encounter Additional Health Concerns Assessment Noted Time PHQ-9 Depression Total Score: 16 022 10:37 AM CDT documented as of this encounter Care Teams Melting Furnace Skimmer Relationship Specialty Start Date End Date Miguel Mancuso MD [address] [place] [phone] PCP - General FAMILY PRACTICE 10/12/22 documented as of this encounter
--- OUTSIDE RECORDS SUMMARY | 2024-03-15 14:33 | XMS_ITS | Clinical Summary ---
Author Organization [facility] Address [address] [place] [address]. [place], [place] [address] [place] [address] Care Team Providers Care Metal Mockup Maker Name Role Phone Miguel Mancuso MD Primary Care Provider Allergies Active Allergy Reactions Criticality Noted Date Comments Ciprofloxacin Other (see comment),Shortness of Breath High 11/11/2015 Pt states I can't breath Covid-19 (Adenovirus) Vaccine Throat swelling 12/19/2021 Pt reported throat had feeling of closing off after last 2 vaccines. Levofloxacin Rash Low 06/16/2018 Medications VITAMINS 28-0.8 MG tablet Take 1 tablet by mouth nightly at bedtime. at bedtime 3 Active methylPREDNISol one, BOBBY, (MEDROL DOSEPAK) 4 MG tablet Take as directed on package 3 Active benzocaine-ment hol (DERMOPLAST) 20-0.5 % Aerosol Apply 1 spray topically 4 (four) times daily as needed (Perineal discomfort). 78 g 3 Active docusate sodium (COLACE) 100 MG capsule Take 1 capsule (100 mg total) by mouth 2 (two) times daily as needed for Constipation. 30 capsule 3 Active ibuprofen (MOTRIN) 600 MG tablet Take 1 tablet (600 mg total) by mouth every 6 (six) hours as needed. 90 tablet 3 Active ferrous fumarate 324 mg 324 (106 Fe) MG Tab tablet Take 1 tablet by mouth daily. 90 tablet 3 Active Active Problems Problem Noted Date Diagnosed Date Vaginal delivery (HHS/HCC) 02/14/2023 Normal course (HHS/HCC) 02/14/2023 Subchorionic hemorrhage of p lacenta in first trimester ([facility]) 08/21/2022 High risk due to h istory of labor ([facility]) 07/31/2022 History of premature delivery 07/31/2022 Confusion and disorientation 12/19/2021 Vitamin D deficiency 12/19/2021 Asthma ([facility]) 02/22/2012 Vision problems 02/22/2012 Overview (12/19/2021): Description: WEARS GLASSES. MYOPIA Resolved Problems Problem Noted Date Diagnosed Date Resolved Date ([facility]) 07/31/2022 02/15/20 23 Poor growth affecting management of mother in third trimester ([facility]) 10/11/201711/24 Short interval between pregn ancies affecting , antepartum ([facility]) 10/11/2017 12/20/19 22 Major depression in full remission 10/14/2014 12/19/2021 Menorrhagia 10/14/2014 12/19/2021 Mass of right breast 07/10/2012 022 Depression 06/06/2012 12/19/2021 Immunizations Name Administration Dates Next Due Dtap (Acel-Immune) 01/05/2004, 1,05/24/1999,01/23,1998,1998 HPV GARDASIL 9-VALENT 09/20/2021 HPV4 (Gardasil) 10/19/2010 Hepatitis A (Generic) 10/19/2010,12/17/2008 Hepatitis B Pediatric 04/03/2000, 000,02/07/1999,09/22 Hib (Generic) 02/19/2000, 0,02/07/1999,11/23,1998 Influenza (Generic) 12/17/2008 Influenza Adult (Generic) 01/16/2020,01/06/2018 MENINGOCOCCAL A C Y&W-135 oligosaccharide (MENVEO) 10/19/2010 MMR (MMRII) 01/05/2004,02/19/2000 Meningcoccal Group B (Bexser o)(aka Meningitis) 09/20/2021 Pneumococcal (Prevnar 7) 10/01/2000,04/03/2000,1 04/20/1999 Polio IPV (Ipol) 01/05/2004, 0,02/07/1999,11/23,1998 Tdap (Generic) 03/25/2015,10/19/2010 Varicella (Varivax) 12/17/2008,10/19/1999 Family History Medical History Relation Comments Diabetes Maternal Grandfather Hypertension Maternal Grandfather Diabetes Maternal Grandmother Epilepsy Maternal Grandmother Hypotension Maternal Grandmother Depression Mother Epilepsy Paternal Grandmother Asthma Sister twin Epilepsy Sister Relation Status Comments Maternal Grandfather Alive Maternal Grandmother Alive Mother Alive Paternal Grandfather Alive Paternal Grandmother Alive Sister Alive Social History Tobacco Use Types Packs/Day Years Used Date Smoking Tobacco: Never Smokeless Tobacco: Never Tobacco Cessation:Counseling Given: Not Answered Alcohol Use Standard Drinks/Week Comments Never 0 (1 standard drink = 0.6 oz pur e alcohol) [facility] trueEXities Answer Date Recorded In the past 12 months has e [employer], oil, or water [employer] threatened to shut off services in your [...] week 02/13/2023 How often do you attend [facility] or voodoo services? Patient declined 02/13/2023 Do you belong to any clubs o r organizations such as scientologist groups, unions, fraternal or athletic groups, or [...] Recorded Patient Health Questionnaire-2 Score 0 08/13/2022 [facility] - Occupational Stress Questionnaire Answer Date Recorded [...] slept in a correction (including now)? No 02/13/2023 Comments No Sex and Gender Information Value Date Recorded Sex Assigned at Not on file Legal Sex Female 5:47 PM CDT Gender Identity Not on file Sexual Orientation Not on file Last Filed [...] Mass Index 23.03 12/09/2023 7:53 PM CDT Plan of Treatment Health Maintenance Due Date Last Done Comments Annual Physical 2001 Pneumococcal Vaccine: Pediatrics (0 to 5 Years) and At-Risk Patients (6 to 64 Years) (1 of 2 - PCV) 2004 10/01/2000, 04/03/2000, 02/19/2000 COVID-19 Vaccine ( season) 2023 04/06/2021, 09/04/2020, 08/14/2020 Influenza Adult (#1) 2023 01/16/2020, 01/06/2018, 12/17/2008 Cervical Cancer Screening Pap Smear (Age 21 to 29) Every 3 Years 07/22/2024 07/22/2021 Cervical Cancer Screening 07/22/2024 DTaP, Tdap and Td Vaccines (8 - Td or Tdap) 03/25/2025 03/25/2015, 10/19/2010, 01/05/2004, Additional history exists Hepatitis B Vaccines Completed 04/03/2000, 05/24/1999, 02/07/1999, Additional history exists Meningococcal Vaccine Aged Out 10/19/2010 No donal kodak eligible based on patient's age to complete this topic Chlamydia Screening Females ages 16-24 Discontinued 12/30/2020, 10/18/2015 HPV Vaccines Completed 09/20/2021, 10/19/2010 Hepatitis C Completed 12/19/2021 RSV Immunizations Under 20 Months Aged Out No longer eligible based on patient's age to complete this topic Procedures Procedure Name Priority Date/Time Associated Diagnosis Comments HEPATITIS C ANTIBODY Routine 12/19/2021 2:27 PM CDT Need for hepatitis C screening test OUTSIDE CYTOPATH CERV/VAG INTERPRET (PAP) 07/22/2021 CHLAMYDIA GC BY PCR Routine 10/18/2015 7 :30 PM CDT from Last 3 Months or Most Recently Relevant to Health Maintenance Results * HEPATITIS C AB ([facility] ONLY) (12/19/2021 2:27 PM CDT) HEPATITIS C AB NON-REACTI VE NON-REACTI VE 12/19/2021 7:56 PM CDT [facility] 12/19/2021 2:27 PM CDT us La Nena Ferro [facility] Final Resul t [facility] [address] [place] [address], [place] [phone] * PAP SMEAR WITH HPV (07/22/2021) 07/22/2021 us [facility] Scanned SCANNING Final Resu lt * CHLAMYDIA GC BY PCR (10/18/2015 7:30 PM CDT) SPECIMEN SOURCE CERVIX 6 12:12 PM CDT [facility] CHLAMYDIA PCR NEGATIVE NEGATIVE 10/25/2015 12:12 PM CDT [facility] Comment: This test was performed using the APTIMA Combo 2 Chlamydia trachomatis & Neisseria gonorrhoeae RNA Amplified Probe Assay which detects the presence of C. trachomatis and N. gonorrhoeae rRNA in clinical specimens. This assay was validated by [facility] and cleared by the FDA for endocervical and male urethral swabs from symptomatic and asymptomatic patients. Performed at [facility], [address] [place] [address] SPECIMEN CERVIX 10/25/2015 12:12 PM CDT [facility] NEISSERIA GONORRHOEAE PCR NEGATIVE NEGATIVE 10/25/2015 12:12 PM CDT [facility] Comment: This test was performed using the APTIMA Combo 2 Chlamydia trachomatis & Neisseria gonorrhoeae RNA Amplified Probe Assay which detects the presence of C. trachomatis and N. gonorrhoeae rRNA in clinical specimens. This assay was validated by [facility] and cleared by the FDA for endocervical and male urethral swabs from symptomatic and asymptomatic patients. Performed at [facility], [address] [place] [id number] 10/18/2015 7:30 PM CDT 10/18/2015 7:57 PM CDT us Generic Conversion [facility] - GENERAL ORDERABLES Final Result [facility] [address] [place] [id number] from Last 3 Months or Most Recently Relevant to Health Maintenance Insurance [address] [address] Advance Directives * Full Code (Latest Code Status on File) Date Activated Date Inactivated Comments 02/13/2023 6:10 AM 02/14/2023 5:19 PM Care Teams Metal Mockup Maker Relationship Specialty Start Date End Date Miguel Mancuso MD [address] [place] [phone] PCP - General FAMILY PRACTICE 10/12/22
--- OUTSIDE RECORDS SUMMARY | 2024-03-15 14:33 | XMS_ITS | Encounter Summary ---
Author Organization [facility] Address [address] [place] [address]. [place] [address] [place] [address] Care Team Providers Care Ammonium Nitrate Neutralizer Name Role Phone La Nena Ferro WAGON DRIVER-BC Primary Care Provider Unav ailable Reason for Visit * Reason Onset Date Comments Documents 09/18/2022 Encounter Details Date Type Department Care Team (Late st Contact Info) Description 09/18/[address] [phone] La Nena Ferro, WAGON DRIVER-BC Documents Social History Tobacco Use Types Packs/Day Years [...] as of this encounter Progress Notes * Michelle Soto RN - 09/19/2022 11:24 AM CDT Mariam sent a My chart message please see * Lexi Dumont - 09/18/2022 12:06 PM CDT Patient is requesting a letter stating that 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 documented in this encounter Plan of Treatment Not on file documented as of this encounter Visit Diagnoses Not on filedocumented in this encounter Additional Health Concerns Assessment Noted Time PHQ-9 Depression Total Score: 16 022 10:37 AM CDT documented as of this encounter Care Teams Ammonium Nitrate Neutralizer Relationship Specialty Start Date End Date La Nena Ferro, WAGON DRIVER- PCP - General Nurse Practitioner Family 06/20/22 3 documented as of this encounter
--- OUTSIDE RECORDS SUMMARY | 2024-03-15 14:34 | XMS_ITS | Encounter Summary ---
Author Organization [facility] Address [address] [place] [address]. [place] [address] [place] [address] Care Team Providers Care Fold Skiver Name Role Phone La Nena Ferro SAFETY ATTENDANT-BC Primary Care Provider Unav ailable Reason for Visit * Reason Onset Date Comments Concerns 08/13/2022 Encounter Details Date Type Department Care Team (Late st Contact Info) Description 08/13/[address] [phone] La Nena Ferro, SAFETY ATTENDANT-BC Concerns Social History Tobacco Use Types Packs/Day Years [...] as of this encounter Progress Notes * Brittany Padilla RN - 08/13/2022 11:17 AM CDT Received a call from patient stating that she went to [facility] ER last night for vaginal bleeding and right sided back pain. She stated that they told her to f/u with her OB to get an US of her kidney to check for a possible kidney stone. She stated that she called her OB this morning and they toldher they couldn't do imaging for kidneys there and was told to f/u with PCP. She stated that she isno longer having vaginal bleeding. However, she is still having the right sided back pain. She stated that she was told a couple of weeks ago that she also has an ovarian cyst on that side. She was told they wouldn't do a CT because she is high risk. Scheduled her an appt with La Nena for this afternoon to f/u and discuss possible imaging. BRITTANY PADILLA RN 08/13/2022 documented in this encounter Plan of Treatment Not on file documented as of this encounter Visit Diagnoses Not on filedocumented in this encounter Additional Health Concerns Assessment Noted Time PHQ-9 Depression Total Score: 16 022 10:37 AM CDT documented as of this encounter Care Teams Fold Skiver Relationship Specialty Start Date End Date La Nena Ferro, SAFETY ATTENDANT- PCP - General Nurse Practitioner Family 06/20/22 3 documented as of this encounter
--- OUTSIDE RECORDS SUMMARY | 2024-03-15 14:34 | XMS_ITS | Encounter Summary ---
Author Organization [facility] Address [address] [place] [address]. [place], [place] [address] [place] [address] Care Team Providers Care Assistant Professor Of English Name Role Phone La Nena Ferro SOLE ASSESSOR-BC Primary Care Provider Unav ailable Encounter Details Date Type Department Care Team (Latest Contact Info) Description 08/13/2022 Travel Social History Tobacco Use Types Packs/Day [...] documented as of this encounter Care Teams Assistant Professor Of English Relationship Specialty Start Date End Date La Nena Ferro FNP-BC PCP - General Nurse Practitioner Family 06/20/22 3 documented as of this encounter
--- OUTSIDE RECORDS SUMMARY | 2024-03-15 14:35 | XMS_ITS | Encounter Summary ---
Author Organization [facility] Address [address] [place] [address]. [place], [place] [address] [place] [address] Care Team Providers Care Director Of Solutions Architecture Name Role Phone None, Provider MD Primary Care Provider Unavaila ble Reason for Visit * Reason Comments UTI Frequency and pain x 3 days Encounter Details Date Type Department Care Team (Late st Contact Info) Description 02/24/2022 10:00 AM HANDICAPPER HARNESS RACING Office Visit [address] [phone] Victoria Tarango, HOT DIP PLATING SUPERVISOR-BC UTI (Frequency and pain x 3 days) Social History Tobacco Use Types Packs/Day Years Used Date Smoking Tobacco: Never Smokeless Tobacco: Never Tobacco Cessation:Counseling Given: Not Answered Alcohol Use Standard Drinks/Week Comments Never 0 (1 standard drink = 0.6 oz pur e alcohol) PHQ-2 Answer Date Recorded PHQ-2 Score - If the patient scores above 3, please move on to questions 3-9 5 01/02/2022 Comments No Sex and Gender Information Value Date Recorded Sex Assigned at Not on file Legal Sex Female 5:47 PM CDT Gender Identity Not on file Sexual Orientation Not on file COVID-19 Exposure Response Date Recorded In the last 10 days, have yo u been in contact with someone who was confirmed or suspected to have Coronavirus/COVID-19? No / Unsure 02/24/2022 8:29 AM HANDICAPPER HARNESS RACING documented as of this encounter Last Filed Vital Signs Vital Sign Reading Time Taken Comments Blood Pressure 123/79 02/24/2022 9:39 AM HANDICAPPER HARNESS RACING Pulse 60 02/24/2022 9:39 AM HANDICAPPER HARNESS RACING Temperature 37.6 ??C (99.7 ??F) 02/24/2022 8:50 AM CS T Respiratory Rate 18 02/24/2022 8:50 AM HANDICAPPER HARNESS RACING Oxygen Saturation 98% 02/24/2022 8:50 AM HANDICAPPER HARNESS RACING Inhaled Oxygen Concentration - - Weight 49 kg (108 lb) 02/24/2022 8:50 AM HANDICAPPER HARNESS RACING Height 160 cm (5' 3 ) 02/24/2022 8:50 AM HANDICAPPER HARNESS RACING Body Mass Index 19.13 02/24/2022 8:50 AM HANDICAPPER HARNESS RACING documented in this encounter Progress Notes * Victoria Dallas Tarango, HOT DIP PLATING SUPERVISOR-BC - 02/24/2022 10:00 AM CST Reason for Visit: UTI (Frequency and pain x 3 days) History of Present Illness: Pt presents with c/o of urinary burning, frequency, lower abdominal pain, for 3 days. States her recently cheated on her and may have std. No fever at home. 99.7 in office. Vaginal discharge that's milking and more than her normal amount. ROS: Constitutional: Negative. HENT: Negative. Eyes: Negative. Respiratory: Negative. Cardiovascular: Negative. Gastrointestinal: Negative. Genitourinary: Negative. Musculoskeletal: Negative. Skin: Negative. Neurological: Negative. Endo/Heme/Allergies: Negative. Psychiatric/Behavioral: Negative. Medications: Current Outpatient Medications: ??? doxycycline hyclate (VIBRAMYCIN) 100 MG capsule, Take 1 capsule (100 mg total) by mouth 2 (two)times daily for 7 days., Disp: 14 capsule, Rfl: 0 Allergies Allergen Reactions ??? Ciprofloxacin Other (see comment) Pt states I can't breath ??? Covid-19 (Adenovirus) Vaccine Throat swelling Pt reported throat had feeling of closing off after last 2 vaccines. ??? Levaquin [Levofloxacin] Rash Past Medical History: Diagnosis Date ??? Asthma ??? Bilateral ovarian cysts ??? Depression ??? History of suicidal ideation ??? Major depression in full remission (CMS/HCC) 10/14/2014 ??? Mass of right breast 07/10/2012 ??? Menorrhagia 10/14/2014 ??? Poor growth affecting management of mother in third trimester 10/11/2017 ??? PTSD (post-traumatic stress disorder) ??? Short interval between pregnancies affecting , antepartum 10/11/2017 ??? Vitamin D deficiency Past Surgical History: Procedure Laterality Date ??? ADENOIDECTOMY ??? BREAST SURGERY Bilateral with implants ??? TONSILLECTOMY Social History Tobacco Use ??? Smoking status: Never ??? Smokeless tobacco: Never Vaping Use ??? Vaping Use: Never used Substance Use Topics ??? Alcohol use: Never ??? Drug use: Never Family History Problem Relation Name Age of Onset ??? Depression Mother ??? Asthma Sister twin ??? Epilepsy Sister ??? Hypotension Maternal Grandmother ??? Diabetes Maternal Grandmother ??? Epilepsy Maternal Grandmother ??? Hypertension Maternal Grandfather ??? Diabetes Maternal Grandfather ??? Epilepsy Paternal Grandmother Physical exam: General Appearance: Well developed. Well nourished. In no acute distress. Abdomen: Bowel sounds normoactive. non-tender to palpation. No mass or hepatosplenomegaly. Negativecva tenderness. Victoria Tarango APRN Filed Vitals: 02/24/22 0850 02/24/22 0939 BP: (!) 88/63 123/79 Pulse: 79 60 Resp: 18 Temp: 99.7 ??F (37.6 ??C) TempSrc: Temporal SpO2: 98% Weight: 49 kg (108 lb) Height: 5' 3 (1.6 m) Body mass index is 19.13 kg/m??. Assessment and plan: 1. Painful urination - URINALYSIS AUTO DIP - CULTURE URINE; Future - cefTRIAXone (ROCEPHIN) injection 500 mg - CHLAM/GC/TRICHOMONAS PROFILE; Future - doxycycline hyclate (VIBRAMYCIN) 100 MG capsule; Take 1 capsule (100 mg total) by mouth 2 (two) times daily for 7 days. Dispense: 14 capsule; Refill: 0 2. STI (sexually transmitted infection) Pt agreeable to treat while waiting for results. Discussed that partner needs tested. Avoid sexual contact for 1 week after completion of antibiotics. Worsening symptoms go to ER. - cefTRIAXone (ROCEPHIN) injection 500 mg - CHLAM/GC/TRICHOMONAS PROFILE; Future - doxycycline hyclate (VIBRAMYCIN) 100 MG capsule; Take 1 capsule (100 mg total) by mouth 2 (two) times daily for 7 days. Dispense: 14 capsule; Refill: 0 VICTORIA TARANGO ICAPPER HARNESS RACING documented in this encounter Plan of Treatment Not on file documented as of this encounter Procedures Procedure Name Priority Date/Time Associated Diagnosis Comments URINALYSIS AUTO DIP Routine 02/24/2022 Painful urination documented in this encounter Results * CHLAM/GC/TRICHOMONAS PROFILE (02/24/2022 9:41 AM HANDICAPPER HARNESS RACING) SPEC DESCRIPTION URINE 02/25/20 22 2:21 PM HANDICAPPER HARNESS RACING [facility] CHLAMYDIA RNA TMA NEGATIVE NEGATIVE 022 2:16 PM HANDICAPPER HARNESS RACING [facility] Comment:PERFORMED BY NUCLEIC ACID AMPLIFICATION N.GONORRHOEAE RNA TMA NEGATIVE NEGATIVE 02/26/2022 2:16 PM HANDICAPPER HARNESS RACING [facility] Comment:PERFORMED BY NUCLEIC ACID AMPLIFICATION TRICHOMONAS NEGATIVE NEGATIVE 02/26/2022 2:19 PM HANDICAPPER HARNESS RACING [facility] Comment:PERFORMED BY NUCLEIC ACID AMPLIFICATION URINE SPECIMEN / Unknown 02/24/2022 9:41 AM HANDICAPPER HARNESS RACING [facility] - GENERAL ORDE SANDY Final Result [facility] [address] [place] [address], [facility] [address] [place] [address], [place] [phone] * CULTURE URINE (02/24/2022 9:11 AM HANDICAPPER HARNESS RACING) SPEC DESCRIPTION URINE CLEAN CATCH 02/24/2022 2:21 PM HANDICAPPER HARNESS RACING [facility] SPECIAL REQUESTS NO SPECIAL REQUEST 02/24/2022 2:21 PM HANDICAPPER HARNESS RACING [facility] CULTURE RESULT NO GROWTH 2 DAYS 02/27/2022 7:28 AM HANDICAPPER HARNESS RACING [facility] URINE SPECIMEN OBTAINED BY CLEAN CATCH PROCEDURE / Unknown 02/24/2022 9:11 AM HANDICAPPER HARNESS RACING 02/24/2022 2:22 PM HANDICAPPER HARNESS RACING us Victoria Tarango HOT DIP PLATING SUPERVISOR- MICROBIOLOGY - GENERAL SEBASTIAN DELGADO Final Result [facility] [address] [facility] [place] [address], [place] [phone] [facility] [address] [place] [address], [place] [phone] * URINALYSIS AUTO DIP (02/24/2022) COLOR (U) YELLOW [facility] (9401), [place] TRANSPARENCY CLOUDY [facility] (9401), [place] GLUCOSE (U) NEGATIVE NEGATIVE MG/DL [facility] [facility] (9401), [place] BILIRUBIN (U) NEGATIVE NEGATIVE [facility] (9401), [place] KETONES MG/DL (U) NEGATIVE NEGATIVE MG/DL [facility] (9401), [place] SPECIFIC GRAVITY (U) 1.020 1.001 - 1.035 [facility] (9401), [place] BLOOD (U) TRACE (Non Hemolyzed, Intact) NEGATIVE [facility] (9401), [place] U PH 6.0 5.0 - 9.0 [facility] (9401), [place] PROTEIN (U) NEGATIVE NEGATIVE mg/dL [facility] (9401), [place] UROBILINOGEN 0.2 0.2 - 1.0 EU/dL = mg/dL [facility] (9401), [place] NITRITES NEGATIVE NEGATIVE MG/DL [facility] (9401), [place] LEUKOCYTES (U) TRACE NEGATIVE [facility] LY CROSS [facility] (9401), [place] URINE SPECIMEN OBTAINED BY CLEAN CATCH PROCEDURE / Unknown 02/24/2022 us Victoria Marins HOT DIP PLATING SUPERVISOR- URINE ORDERABLES Final Resu lt -[facility]AQUIN [facility]OLGUIN ([id number]), [place] [address] [facility] [address] [place] [id number], [place] [phone] documented in this encounter Visit Diagnoses Diagnosis Painful urination- Primary Dysuria STI (sexually transmitted infection) Venereal disease, unspecified documented in this encounter Administered Medications Inactive Administered Medications - up to 3 most recent administrations Medication Order MAR Action Action Date Dose Rate Site cefTRIAXone (ROCEPHIN) injection 500 mg 500 mg, Intramuscular, Once, 1 dose, On 02/24/22 at 1000, Reconstitute with 1 mL normal saline, sterile water for injection, or 1% lidocaine to obtain a final concentration of 350 mg/mL.Indications:Painful urination,STI (sexually transmitted infection) Given 02/24/2022 10:00 AM HANDICAPPER HARNESS RACING 500 mg Right Anterior Thigh documented in this encounter Additional Health Concerns Assessment Noted Time PHQ-9 Depression Total Score: 16 022 10:37 AM CDT documented as of this encounter Care Teams Director Of Solutions Architecture Relationship Specialty Start Date End Date None, Provider, PCP - General 12/27/21 06/19/22 documented as of this encounter
--- OUTSIDE RECORDS SUMMARY | 2024-03-15 14:35 | XMS_ITS | Encounter Summary ---
Author Organization [facility] Address [address] [place] [address]. [place], [place] [address] [place] [address] Care Team Providers Care Paper Products Machine Operator Name Role Phone La Nena Ferro GRANITE BLOCK PAVER- Primary Care Provider Unav ailable Encounter Details Date Type Department Care Team (Latest Contact Info) Description 07/12/2022 Travel Social History Tobacco Use Types Packs/Day Years Used Date Smoking Tobacco: Never Smokeless Tobacco: Never Alcohol Use Standard Drinks/Week Comments Never 0 (1 standard drink = 0.6 oz pur e alcohol) PHQ-2 Answer Date Recorded PHQ-2 Score - If the patient scores above 3, please move on to questions 3-9 5 01/02/2022 Comments Yes Sex and Gender Information Value Date Recorded Sex Assigned at Not on file Legal Sex Female 5:47 PM CDT Gender Identity Not on file Sexual Orientation Not on file COVID-19 Exposure Response Date Recorded In the last 10 days, have yo u been in contact with someone who was confirmed or suspected to have Coronavirus/COVID-19? No / Unsure 07/12/2022 9:40 PM CDT documented as of this encounter Plan of Treatment Not on file documented as of this encounter Visit Diagnoses Not on filedocumented in this encounter Additional Health Concerns Assessment Noted Time PHQ-9 Depression Total Score: 16 022 10:37 AM CDT documented as of this encounter Care Teams Paper Products Machine Operator Relationship Specialty Start Date End Date La Nena Ferro, MARA-PATRICIA PCP - General Nurse Practitioner Family 06/20/22 3 documented as of this encounter
--- OUTSIDE RECORDS SUMMARY | 2024-03-15 14:35 | XMS_ITS | Encounter Summary ---
Author Organization [facility] Address [address] [place] [address]. [place] [id number] Care Team Providers Care Content Director Name Role Phone Shana Easton MD Primary Care Provider [phone] Encounter Details Date Type Department Care Team (Latest Contact Info) Description 03/21/2021 Travel Social History Tobacco Use Types Packs/Day Years Used Date Smoking Tobacco: Never Smokeless Tobacco: Never Alcohol Use Standard Drinks/Week Comments No 0 (1 standard drink = 0.6 oz pur e alcohol) Comments No Sex and Gender Information Value Date Recorded Sex Assigned at Not on file Legal Sex Female 5:47 PM CDT Gender Identity Not on file Sexual Orientation Not on file COVID-19 Exposure Response Date Recorded In the last month, have you been in contact with someone who was confirmed or suspected to have Coronavirus / COVID-19? 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
--- OUTSIDE RECORDS SUMMARY | 2024-03-15 14:35 | XMS_ITS | Encounter Summary ---
Author Organization [facility] Address [address] [place] [address]. [place], [place] [address] [place] [address] Care Team Providers Care Kiln Fireman Name Role Phone La Nena Ferro APARTMENT LOCATOR- Primary Care Provider Unav ailable Encounter Details Date Type Department Care Team (Latest Contact Info) Description 12/19/2021 Travel Social History Tobacco Use Types Packs/Day Years Used Date Smoking Tobacco: Never Smokeless Tobacco: Never Alcohol Use Standard Drinks/Week Comments Never 0 (1 standard drink = 0.6 oz pur e alcohol) PHQ-2 Answer Date Recorded PHQ-2 Score - If the patient scores above 3, please move on to questions 3-9 0 12/19/2021 Comments No Sex and Gender Information Value Date Recorded Sex Assigned at Not on file Legal Sex Female 5:47 PM CDT Gender Identity Not on file Sexual Orientation Not on file COVID-19 Exposure Response Date Recorded In the last 10 days, have yo u been in contact with someone who was confirmed or suspected to have Coronavirus/COVID-19? No / Unsure 12/19/2021 1:03 PM CDT documented as of this encounter Plan of Treatment Not on file documented as of this encounter Visit Diagnoses Not on filedocumented in this encounter Care Teams Kiln Fireman Relationship Specialty Start Date End Date La Nena Ferro FNPPATRICIA PCP - General Nurse Practitioner Family 11/30/21 2 documented as of this encounter
--- OUTSIDE RECORDS SUMMARY | 2024-03-15 14:35 | XMS_ITS | Encounter Summary ---
Author Organization [facility] Address [address] [place] [address]. [place], [place] [phone] [place] [id number] Care Team Providers Care Compressor Mechanic Bus Name Role Phone None, Provider Primary Care Provider Jacquelin baker Encounter Details Date Type Department Care Team (Latest Contact Info) Description 02/24/2022 2:21 PM HORTICULTURE SUPERVISOR - 02/24/2022 11:59 PM HORTICULTURE SUPERVISOR Hospital Encounter [facility] [address] [place] [address] La Nena Ferro, [facility] Discharge Disposition: Home or Self Care (Routine [...] Coronavirus/COVID-19? No / Unsure 02/24/2022 8:29 AM HORTICULTURE SUPERVISOR documented as of this encounter Medications at Time of Discharge doxycycline hyclate (VIBRAMYCIN) 100 MG capsuleIndication s:Painful urination,STI (sexually transmitted infection) Take 1 capsule (100 mg total) by mouth 2 (two) times daily for 7 days. 14 capsule 02/24/2022 03/03/2022 documented as of this encounter Plan of Treatment Not on file documented as of this encounter Procedures Procedure Name Priority Date/Time Associated Diagnosis Comments CHLAM/GC/TRICHOMONA S PROFILE Routine 02/24/2022 9:41 AM HORTICULTURE SUPERVISOR Painful urination STI (sexually transmitted infection) URINE BACTERIA CULTURE Routine 02/24/2022 9:11 AM HORTICULTURE SUPERVISOR Painful urination documented in this encounter Results * CHLAM/GC/TRICHOMONAS PROFILE (02/24/2022 9:41 AM HORTICULTURE SUPERVISOR) SPEC DESCRIPTION URINE 02/25/20 2:21 PM HORTICULTURE SUPERVISOR [facility] CHLAMYDIA RNA TMA NEGATIVE NEGATIVE 022 2:16 PM HORTICULTURE SUPERVISOR [facility] Comment:PERFORMED BY NUCLEIC ACID AMPLIFICATION N.GONORRHOEAE RNA TMA NEGATIVE NEGATIVE 02/26/2022 2:16 PM HORTICULTURE SUPERVISOR [facility] Comment:PERFORMED BY NUCLEIC ACID AMPLIFICATION TRICHOMONAS NEGATIVE NEGATIVE 02/26/2022 2:19 PM HORTICULTURE SUPERVISOR [facility] Comment:PERFORMED BY NUCLEIC ACID AMPLIFICATION URINE SPECIMEN / Unknown 02/24/2022 9:41 AM HORTICULTURE SUPERVISOR La Nena Ferro [facility] MICROBIOLOGY - GENERAL ORDJuan DELGADO Final Result Performing Organization Address City/State/[facility] Co de Phone Number [facility] [address] [place] [address], [place] [phone] [facility] [address] [place] [address], [place] [phone] * CULTURE URINE (02/24/2022 9:11 AM HORTICULTURE SUPERVISOR) SPEC DESCRIPTION URINE CLEAN CATCH 02/24/2022 2:21 PM HORTICULTURE SUPERVISOR [facility] SPECIAL REQUESTS NO SPECIAL REQUEST 02/24/2022 2:21 PM HORTICULTURE SUPERVISOR [facility] CULTURE RESULT NO GROWTH 2 DAYS 02/27/2022 7:28 AM HORTICULTURE SUPERVISOR [facility] URINE SPECIMEN OBTAINED BY CLEAN CATCH PROCEDURE / Unknown 02/24/2022 9:11 AM HORTICULTURE SUPERVISOR 02/24/2022 2:22 PM HORTICULTURE SUPERVISOR La Nena Ferro SLITTER AND REWINDER MACHINE OPERATOR- MICROBIOLOGY - GENERAL SEBASTIAN DELGADO Final Result Performing Organization Address City/State/[facility] Co de Phone Number [facility] [address] [place] [address], [place] [phone] [facility] [address] [place] [address], [place] [phone] documented in this encounter Visit Diagnoses Diagnosis Painful urination Dysuria STI (sexually transmitted infection) Venereal disease, unspecified documented in this encounter Additional Health Concerns Assessment Noted Time PHQ-9 Depression Total Score: 16 022 10:37 AM CDT documented as of this encounter Care Teams Compressor Mechanic Bus Relationship Specialty Start Date End Date None, Provider, PCP - General 12/27/21 06/19/22 documented as of this encounter
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
--- OUTSIDE RECORDS SUMMARY | 2024-03-15 14:35 | XMS_ITS | Encounter Summary ---
Author Organization [facility] Address [address] [place] [address]. [place], [place] [address] [place] [id number] Care Team Providers Care Junior Account Manager Name Role Phone None, Provider MD Primary Care Provider Unavaila ble Reason for Visit * Reason Onset Date Comments Question 04/25/2022 Encounter Details Date Type Department Care Team (Late st Contact Info) Description 04/25/2022 Telephone [facility] - [address], [address] [place] [address] Manav Cruz MD [address] [place] [address] Question Social History Tobacco Use Types Packs/Day [...] as of this encounter Progress Notes * Mary Ann Mccormick MA - 04/25/2022 3:49 PM CST Contacted pt and gave her the recommendation from Dr Tee. Patient gave an understanding to the information given VATION ANALYST * Manav Cruz MD - 04/25/2022 3:42 PM CST I have never seen this person before. She has a future appt but is not an established patient. She should go to the ER. VATION ANALYST * Mary Ann Mccormick MA - 04/25/2022 3:26 PM CST Pt states that she has a lot of tingling in arms and feet area. Also her vision has changed , she has experienced blurry and vision. Dizziness and also her sound was going in and out. These symptoms have not started until she was taken off Tegratol. VATION ANALYST * Olivia Huizar - 04/25/2022 3:20 PM CST Pt called today saying that she has seizure like symptoms . Please call to discuss VATION ANALYST documented in this encounter Plan of Treatment Not on file documented as of this encounter Visit Diagnoses Not on filedocumented in this encounter Additional Health Concerns Assessment Noted Time PHQ-9 Depression Total Score: 16 022 10:37 AM CDT documented as of this encounter Care Teams Junior Account Manager Relationship Specialty Start Date End Date None, Provider, PCP - General 12/27/21 06/19/22 documented as of this encounter
--- OUTSIDE RECORDS SUMMARY | 2024-03-15 14:35 | XMS_ITS | Encounter Summary ---
Author Organization [facility] Address [address] [place] [address]. [place], [place] [id number] [place] [address] Care Team Providers Care Chemical Blender Name Role Phone Lorin Casillas MD Primary Care Provider [phone] Reason for Visit * Reason Comments Urinary Symptoms Encounter Details Date Type Department Care Team (Late st Contact Info) Description 03/21/2021 6:44 PM ROLL DOUGH DIVIDER - 03/21/2021 7:59 PM ROLL DOUGH DIVIDER Hospital Encounter [place] [address] [place] [address] Patrick De Jesus MD [address] [place] [address] [place] [address] Urinary Symptoms Discharge Disposition: Home or Self Care (Routine [...] COVID-19? No / Unsure 03/21/2021 5:23 PM ROLL DOUGH DIVIDER documented as of this encounter Last Filed Vital Signs Vital Sign Reading Time Taken Comments Blood Pressure 122/78 03/21/2021 6:49 PM ROLL DOUGH DIVIDER Pulse 78 03/21/2021 6:49 PM ROLL DOUGH DIVIDER Temperature 36.7 ??C (98 ??F) 03/21/2021 6:49 PM ROLL DOUGH DIVIDER Respiratory Rate 18 03/21/2021 6:49 PM ROLL DOUGH DIVIDER Oxygen Saturation 100% 03/21/2021 6:49 PM ROLL DOUGH DIVIDER Inhaled Oxygen Concentration - - Weight - - Height - - Body Mass Index - - documented in this encounter Discharge Instructions * Attachments The following attachments cannot be sent through Care Everywhere. * Acute Cystitis Discharge Instructions (Hebrew) documented in this encounter Medications at Time of Discharge carBAMazepine (TEGRETOL) 200 MG tablet Take 50 mg by mouth daily. 12/19/2021 cephALEXin (KEFLEX) 500 MG capsule Take 1 capsule (500 mg total) by mouth 2 (two) times daily for 3 days. 6 capsule 03/21/2021 03/24/2021 documented as of this encounter ED Notes * Patrick De Jesus MD - 03/21/2021 6:54 PM CST [facility] Urgent [facility]- [place], [place] HISTORICAL INFORMATION Primary Care Doctor: LORIN CASILLAS MD Patient information was obtained primarily from the patient, nursing notes. History/Exam limitations: None Provider at Bedside Date/Time Event User Comments 03/21/21 1726 Provider at Bedside Assessing Patient PATRICK DE JESUS CHIEF COMPLAINT Urinary Symptoms Chief Complaint Patient presents with ??? Urinary Symptoms HPI Mariam eLa is a 20-year-old female who presents with a 1 month history of dysuria. Pt was treated with bactrim but did not resolve. Pt denies fever, chills, N/V. PAST MEDICAL HISTORY Past Medical History: Diagnosis Date ??? Asthma ??? Depression ??? History of suicidal ideation ??? PTSD (post-traumatic stress disorder) SURGICAL HISTORY Past Surgical History: Procedure Laterality Date ??? ADENOIDECTOMY ??? TONSILLECTOMY CURRENT MEDICATIONS No current facility-administered medications for this encounter. Current Outpatient Medications: ??? carBAMazepine (TEGRETOL) 200 MG tablet, Take 50 mg by mouth daily., Disp: , Rfl: ??? cephALEXin (KEFLEX) 500 MG capsule, Take 1 capsule (500 mg total) by mouth 2 (two) times daily for 3 days., Disp: 6 capsule, Rfl: 0 ALLERGIES Allergies Allergen Reactions ??? Ciprofloxacin Other (see comment) Pt states I can't breath ??? Levaquin [Levofloxacin] Rash FAMILY HISTORY Family History Problem Relation Name Age of Onset ??? Asthma Mother SOCIAL HISTORY Social History Socioeconomic History ??? Marital status: Spouse name: Not on file ??? Number of children: Not on file ??? Years of education: Not on file ??? Highest education level: Not on file Occupational History ??? Not on file Tobacco Use ??? Smoking status: Never Smoker ??? Smokeless tobacco: Never Used Substance and Sexual Activity ??? Alcohol use: No ??? Drug use: No ??? Sexual activity: Yes Other Topics Concern ??? Not on file Social History Narrative ??? Not on file Social Determinants of Health Financial Resource Strain: Not on file Food Insecurity: Not on file Transportation Needs: Not on file Physical Activity: Not on file Stress: Not on file Social Connections: Not on file Intimate Partner Violence: Not on file Review of Systems Constitutional: Negative for chills and fever. HENT: Negative for congestion and sore throat. Eyes: Negative for pain and discharge. Respiratory: Negative for cough, shortness of breath and wheezing. Cardiovascular: Negative for chest pain and palpitations. Gastrointestinal: Negative for abdominal pain, diarrhea, nausea and vomiting. Genitourinary: Positive for dysuria. Negative for hematuria. Musculoskeletal: Negative for neck pain and neck stiffness. Skin: Negative for rash. Neurological: Negative for seizures, syncope and headaches. Psychiatric/Behavioral: Negative for agitation and confusion. Physical Exam VITAL SIGNS: Filed Vitals: 03/21/21 1849 BP: 122/78 Pulse: 78 Resp: 18 Temp: 98 ??F (36.7 ??C) TempSrc: Temporal SpO2: 100% Physical Exam Vitals and nursing note reviewed. Constitutional: General: She is not in acute distress. Appearance: Normal appearance. She is not ill-appearing, toxic-appearing or diaphoretic. HENT: Head: Normocephalic and atraumatic. Right Ear: External ear normal. Left Ear: External ear normal. Eyes: General: No scleral icterus. Right eye: No discharge. Left eye: No discharge. Extraocular Movements: Extraocular movements intact. Conjunctiva/sclera: Conjunctivae normal. Cardiovascular: Rate and Rhythm: Normal rate and regular rhythm. Heart sounds: No murmur heard. Pulmonary: Effort: Pulmonary effort is normal. No respiratory distress. Breath sounds: Normal breath sounds. No stridor. No wheezing, rhonchi or rales. Abdominal: General: Bowel sounds are normal. Palpations: Abdomen is soft. Tenderness: There is no abdominal tenderness. There is no right CVA tenderness or left CVA tenderness. Musculoskeletal: General: No deformity or signs of injury. Normal range of motion. Cervical back: Normal range of motion and neck supple. Skin: General: Skin is warm and dry. Neurological: General: No focal deficit present. Mental Status: She is alert and oriented to person, place, and time. Psychiatric: Mood and Affect: Mood normal. Behavior: Behavior normal. EKG (interpreted by ED provider) No results found for this visit on 03/21/21. LABORATORY Labs Reviewed URINALYSIS AUTO DIP TEST URINE CULTURE URINE RADIOLOGY No orders to display PROCEDURES Procedures MDM UA shows leukocyte esterase and blood. Pt counseled has UTI and will give course of keflex. UCx sent. I have discussed today's findings with the patient and provided information regarding the likely diagnosis. The patient has been given information regarding their treatment, follow up and concerning symptoms for which they should seek urgent or emergent attention. I have expressed the the importance of seeking attention should there be any new, or worsening symptoms or persistence of their condition. The patient is stable at discharge and has verbalized understanding of these instructions. Impression/Disposition SNOMED CT(R) 1. Acute cystitis with hematuria ACUTE CYSTITIS Disposition: Discharge Medications - No data to display Current Discharge Medication List START taking these medications Details cephALEXin (KEFLEX) 500 MG capsule Take 1 capsule (500 mg total) by mouth 2 (two) times daily for 3days. Qty: 6 capsule, Refills: 0 Class: Eprescribe Pharmacy: [facility] [address] [place] [address] (Ph #: [phone]) MD Patrick Hill MD 03/21/211937 DOUGH DIVIDER * Ese Parmar RN - 03/21/2021 6:46 PM CST Reports burning with urination for last month. Treated recently for uti but s/s didn't resolve. DOUGH DIVIDER documented in this encounter Plan of Treatment Not on file documented as of this encounter Procedures Procedure Name Priority Date/Time Associated Diagnosis Comments URINE BACTERIA CULTURE STAT 03/21/2021 7:19 PM ROLL DOUGH DIVIDER TEST URINE STAT 03/21/2021 7:14 PM ROLL DOUGH DIVIDER URINALYSIS AUTO DIP STAT 03/21/2021 7 :14 PM ROLL DOUGH DIVIDER documented in this encounter Results * (ABNORMAL) CULTURE URINE (03/21/2021 7:19 PM ROLL DOUGH DIVIDER) SPEC DESCRIPTION URINE CLEAN CATCH 03/21/2021 7:19 PM ROLL DOUGH DIVIDER [facility] CON[facility]IENT CARE SPECIAL REQUESTS NO SPECIAL REQUEST 03/21/2021 7:19 PM ROLL DOUGH DIVIDER [facility] CON[facility]IENT CARE CULTURE RESULT 10,000-49,0 00 COL/ML ESCHERICHIA COLI (A) 03/24/2021 9:59 AM ROLL DOUGH DIVIDER [facility] URINE SPECIMEN OBTAINED BY CLEAN CATCH PROCEDURE / Unknown 03/21/2021 7:19 PM ROLL DOUGH DIVIDER 03/21/2021 9:12 PM ROLL DOUGH DIVIDER Narrative Organism Antibiotic Method Susceptibility Escherichia coli AMPICILLIN BRENDA (VITEK) >=32: Resistant Escherichia coli AMPICILLIN/SULBACTAM BRENDA (VITEK) 16: Intermediate Comment:INTERMEDIATE Escherichia coli CEFTRIAXONE BRENDA (VITEK) <=1: Sensitive Escherichia coli CEFTAZIDIME BRENDA (VITEK) <=1: Sensitive Escherichia coli CEFAZOLIN BRENDA (VITEK) <=4: Sensitive Escherichia coli ESBL BRENDA (VITEK) NEG: Sensitive Escherichia coli NITROFURANTOIN BRENAD (VITEK) <=16: Sensitive Escherichia coli GENTAMICIN BRENDA (VITEK) <=1: Sensitive Escherichia coli LEVOFLOXACIN BRENDA (VITEK) <=0.12: Sensitive Escherichia coli PIPRACIL/TAZO BRENDA (VITEK) <=4: Sensitive Escherichia coli TRIMETH-SULFAMETH. BRENDA (VITEK) >=320: Resistant Patrick De Jesus MD MICROBIOLOGY - GENERAL ORDER LUTHER Final Result Performing Organization Address [facility] Co de Phone Number [facility] [address] [place] [address], [place] [phone] [facility] CONVENIENT CARE [address] [place] [address], [place] * TEST URINE (03/21/2021 7:14 PM ROLL DOUGH DIVIDER) PREG TEST NEGATIVE 03/22/2021 1:15 PM ROLL DOUGH DIVIDER [facility] SPECIFIC GRAVITY (U) 1.015 >1.009 03/22/2021 1:15 PM ROLL DOUGH DIVIDER [facility] URINE SPECIMEN FROM URETHRA / Unknown 03/21/2021 7:14 PM ROLL DOUGH DIVIDER Patrick De Jesus MD URINE ORDERABLES Final Resul t Performing Organization Address [facility] Co de Phone Number [facility] CON[facility]IENT CARE [address] [place] [address], [place] * (ABNORMAL) URINALYSIS AUTO DIP (03/21/2021 7:14 PM ROLL DOUGH DIVIDER) SPECIMEN TYPE URINE CLEAN CATCH 03/21/2021 7:14 PM ROLL DOUGH DIVIDER [facility] CONVENIENT CARE COLOR (U) YELLOW 03/22/2021 11:19 AM ROLL DOUGH DIVIDER [facility] CON[facility]IENT CARE TRANSPARENCY CLEAR 03/22/2021 11:19 AM ROLL DOUGH DIVIDER [facility] CON[facility]IENT CARE SPECIFIC GRAVITY (U) 1.025 1.001 - 1.030 03/22/2021 11:19 AM ROLL DOUGH DIVIDER [facility] U PH 5.0 5.0 - 9.0 03/22/2021 11:19 AM ROLL DOUGH DIVIDER [facility] CON[facility]IENT CARE LEUKOCYTES (U) SMALL(A) NEGATIVE 03/22/2021 11:19 AM ROLL DOUGH DIVIDER [facility] NITRITES NEGATIVE NEGATIVE 03/22/2021 11:19 AM ROLL DOUGH DIVIDER [facility] PROTEIN (U) NEGATIVE <30 MG/DL 03/22/2021 11:19 AM ROLL DOUGH DIVIDER [facility] URINE GLUCOSE NEGATIVE NEGATIVE MG/DL 03/22/2021 11:19 AM ROLL DOUGH DIVIDER [facility] KETONES MG/DL (U) NEGATIVE NEGATIVE MG/DL 03/22/2021 11:19 AM ROLL DOUGH DIVIDER [facility] UROBILINOGEN 0.2(A) NEGATIVE MG/DL 03/22/2021 11:19 AM ROLL DOUGH DIVIDER [facility] BILIRUBIN (U) NEGATIVE NEGATIVE MG/DL 03/22/2021 11:19 AM [facility] BLOOD (U) TRACE(A) NEGATIVE 03/22/2021 11:19 AM [facility] URINE SPECIMEN OBTAINED BY CLEAN CATCH PROCEDURE / Unknown 03/21/2021 7:14 PM ROLL DOUGH DIVIDER us Patrick De Jesus MD URINE ORDERABLES Final Resul t [id number] [place] [address], documented in this encounter Visit Diagnoses Diagnosis Acute cystitis with hematuria- Primary Acute cystitis documented in this encounter Care Teams Chemical Blender Relationship Specialty Start Date End Date Lorin Casillas MD PCP - General FAMILY PRACTICE 07/22/18 11/29/21 documented as of this encounter
--- OUTSIDE RECORDS SUMMARY | 2024-03-15 14:35 | XMS_ITS | Encounter Summary ---
Author Organization [facility] Address [address] [place] [address]. [place] [address] [place] [address] Care Team Providers Care Telecom Manager Name Role Phone La Nena Ferro UPHOLSTERY TECH- Primary Care Provider Unav ailable Encounter Details Date Type Department Care Team (Latest Contact Info) Description 12/19/2021 2:22 PM CDT - 12/19/2021 11:59 PM CDT Hospital Encounter [facility] [address] [place], [place] [id number] La Nena Ferro, [facility]- Discharge Disposition: Home or Self Care (Routine [...] Time of Discharge Cholecalciferol (D3) 50 MCG (1999) TabIndications:Vi tamin D deficiency Take 1 tablet by mouth daily for 30 days. 30 tablet 12 12/19/2021 01/18/2022 documented as of this encounter Plan of Treatment Not on file documented as of this encounter Procedures Procedure Name Priority Date/Time Associated Diagnosis Comments HEPATITIS C ANTIBODY Routine 12/19/2021 2:27 PM CDT Need for hepatitis C screening test HCG QUANT (SERUM)-CHORIONIC GONADOTROPIN Routine 12/19/2021 2:27 PM CDT Menstrual period late documented in this encounter Results * HEPATITIS C AB ([facility] ONLY) (12/19/2021 2:27 PM CDT) HEPATITIS C AB NON-REACTI VE NON-REACTI VE 12/19/2021 7:56 PM CDT [facility] 12/19/2021 2:27 PM CDT us La Nena Ferro [facility]- LABORATORY Final Resul t [facility] [address] [place] [address], * HCG QUANT (SERUM)-CHORIONIC GONADOTROPIN (12/19/2021 2:27 PM CDT) HCG QUANTITATIVE <1 MIU/ML 12/21/19 22 9:57 AM CDT [facility] Comment: WEEKS OF ? REFERENCE RANGES NON- FEMALE ?0-6 ? 0.2 - 1 ? 5 - 50 ? 1 - 2 ? 50 - 500 ? 2 - 3 ? 100 - 5000 ? 3 - 4 ? 500 - 10,000 ? 4 - 5 ? 1000 - 50,000 ? 5 - 6 ? 10,000 - 100,000 ? 6 - 8 ? 15,000 - 200,000 ? 2 - 3 MONTHS ?10,000 - 100,000 12/19/2021 2:27 PM CDT us La Nena TERRY- LABORATORY Final Resul t Performing Organization Address City/State/[facility] Co de Phone Number [facility] [address] [place] [address], documented in this encounter Visit Diagnoses Diagnosis Menstrual period late Other disorder of menstruation and other abnormal bleeding from female genital tract Need for hepatitis C screening test Special screening examination for other specified viral diseases documented in this encounter Care Teams Telecom Manager Relationship Specialty Start Date End Date La Nena Ferro FNP-PATRICIA PCP - General Nurse Practitioner Family 11/30/21 2 documented as of this encounter
--- OUTSIDE RECORDS SUMMARY | 2024-03-15 14:35 | XMS_ITS | Encounter Summary ---
Author Organization [facility] Address [address] [place] [address]. [place], [place] [id number] [place] [address] Care Team Providers Care Clerical Stock Inspector Name Role Phone None, Provider MD Primary Care Provider Unavaila ble Reason for Visit * Reason Onset Date Comments Documents 01/02/2022 Encounter Details Date Type Department Care Team (Late st Contact Info) Description 01/02/[address] [phone] La Nena Ferro, [facility]- Documents Social History Tobacco Use Types Packs/Day [...] suspected to have Coronavirus/COVID-19? No / Unsure 01/02/2022 10:29 AM CDT documented as of this encounter Progress Notes * Lexi Dumont - 01/02/2022 2:37 PM CDT She wants it to keep for her records. * Lexi Dumont - 01/02/2022 12:16 PM CDT Patient is requesting statement from provider that she was advised not to drive until being seen byneurologist at the end of February. Please post to [employer] patient portal documented in this encounter Plan of Treatment Not on file documented as of this encounter Visit Diagnoses Not on filedocumented in this encounter Additional Health Concerns Assessment Noted Time PHQ-9 Depression Total Score: 16 022 10:37 AM CDT documented as of this encounter Care Teams Clerical Stock Inspector Relationship Specialty Start Date End Date None, Provider, PCP - General 12/27/21 06/19/22 documented as of this encounter
--- OUTSIDE RECORDS SUMMARY | 2024-03-15 14:35 | XMS_ITS | Encounter Summary ---
Author Organization [facility] Address [address] [place] [address]. [place], [place] [id number] [place] [address] Care Team Providers Care Pigskin Trimmer Name Role Phone Lorin Casillas MD Primary Care Provider [phone] Reason for Visit * Reason Comments Vomiting Encounter Details Date Type Department Care Team ([facility] Contact Info) Description 09/27/2018 2:41 PM CDT - 09/27/2018 5:04 PM CDT Emergency [facility] [place] [place] [address] Vomiting Discharge Disposition: Home or Self Care (Routine [...] Sign Reading Time Taken Comments Blood Pressure 112/82 09/27/2018 4:38 PM CDT Pulse 78 09/27/2018 4:38 PM CDT Temperature 36.9 ??C (98.5 ??F) 09/27/2018 4:38 PM CD T Respiratory Rate 16 09/27/2018 4:38 PM CDT Oxygen Saturation 98% 09/27/2018 4:38 PM CDT Inhaled Oxygen Concentration - - Weight 45.8 kg (101 lb) 09/27/2018 2:33 PM CDT Height 160 cm (5' 3 ) 09/27/2018 2:33 PM CDT Body Mass Index 17.89 09/27/2018 2:33 PM CDT documented in this encounter Discharge Instructions * Attachments The following attachments cannot be sent through Care Everywhere. * Nausea and Vomiting Discharge Instructions, Adult (Stateless) documented in this encounter Medications at Time of Discharge promethazine 25 MG tablet Take 1 tablet (25 mg total) by mouth every 6 (six) hours as needed for Nausea. 15 tablet 09/27/2018 10/04/2018 documented as of this encounter ED Notes * Crystal Sandoval RN - 09/27/2018 4:42 PM CDT Crackers and water given for PO challenge. * MEME Melo - 09/27/2018 3:44 PM CDT [place], [place] EMERGENCY DEPARTMENT ENCOUNTER HISTORICAL INFORMATION Primary Care Doctor: LORIN CASILLAS MD Patient information was obtained primarily from the patient, nursing notes History/Exam limitations: None Provider at Bedside Date/Time Event User Comments 09/27/18 1434 Provider at Bedside Assessing Patient TANNER DUBON CHIEF COMPLAINT Vomiting HPI Mariam Carter is a 17-year-old female who presents nausea and vomiting the last 3 days. Patientstates she has had nausea vomiting for the last 3 days with no abdominal pain or no fever. He has well. Patient's family members does have similar symptoms with diarrhea today. Denies any recent antibiotic use or change in diet. Pt does state that she did have dysuria in last 24hrs. PAST MEDICAL HISTORY Past Medical History: Diagnosis Date ??? Asthma ??? Depression ??? History of suicidal ideation ??? PTSD (post-traumatic stress disorder) SURGICAL HISTORY Past Surgical History: Procedure Laterality Date ??? ADENOIDECTOMY ??? TONSILLECTOMY CURRENT MEDICATIONS Current Facility-Administered Medications: ??? ondansetron (ZOFRAN) injection 4 mg, 4 mg, Intravenous, Once, MEME Melo No current outpatient medications on file. ALLERGIES Allergies Allergen Reactions ??? Ciprofloxacin Other [...] resource strain: Not on file ??? Food insecurity: Worry: Not on file Inability: Not on file ??? Transportation needs: Medical: Not on file Non-medical: Not on file Tobacco Use ??? Smoking status: Never Smoker ??? Smokeless tobacco: Never Used Substance and Sexual Activity ??? Alcohol use: No ??? Drug use: No ??? Sexual activity: Yes Lifestyle ??? Physical activity: Days per week: Not on file Minutes per session: Not on file ??? Stress: Not on file Relationships ??? Social connections: Talks on phone: Not on file Gets together: Not on file Attends gnosticism service: Not on file Active member of club or organization: Not on file Attends meetings of clubs or organizations: Not on file Relationship status: Not on file ??? Intimate partner violence: Fear of current or ex partner: Not on file Emotionally abused: Not on file Physically abused: Not on file Forced sexual activity: Not on file Other Topics Concern ??? Not on file Social History Narrative ??? Not on file REVIEW OF SYSTEMS Constitutional: Denies fever, chills, weight loss or weakness. Eyes: Denies photophobia or discharge. HENT: Denies sore throat or ear pain. Respiratory: Denies cough or shortness of breath. Cardiovascular: Denies chest pain, palpitations or swelling. GI: SEE HPI Musculoskeletal: Denies back pain. Skin: Denies rash. Neurologic: Denies headache, focal weakness or sensory changes. Endocrine: Denies polyuria or polydypsia. Lymphatic: Denies swollen glands. Psychiatric: Denies depression, suicidal ideation or homicidal ideation. See HPI for further details. All systems negative except as marked. PHYSICAL EXAM VITAL SIGNS: Filed Vitals: 09/27/18 1433 BP: 120/81 Pulse: 82 Resp: 17 Temp: 98.3 ??F (36.8 ??C) TempSrc: Oral SpO2: 97% Weight: 45.8 kg (101 lb) Height: 5' 3 (1.6 m) Constitutional: Well developed, Well nourished, No acute distress, Non-toxic appearance. HENT: Normocephalic, Atraumatic, Bilateral external ears normal, Oropharynx moist, No oral exudates, Nose normal. Eyes: PERRL, EOMI, Conjunctiva normal, No discharge. Neck- Normal range of motion, No tenderness, Supple, No stridor. Respiratory: Normal breath sounds, No respiratory distress. Cardiovascular: Normal heart rate, Normal rhythm, no chest wall tenderness GI: Bowel sounds normal, Soft, No tenderness, No masses, No pulsatile masses. Musculoskeletal: Intact distal pulses, No edema, No tenderness, No cyanosis, No clubbing. Good range of motion in all major joints. No tenderness to palpation or major deformities noted. Back- No tenderness. Integument: Warm, Dry, No erythema, No rash. Lymphatic: No lymphadenopathy noted. Neurologic: Alert & oriented x 3, Normal motor function, Normal sensory function, No focal deficits noted. Psychiatric: Affect normal, Judgment normal, Mood normal. Pulse Oximetry Interpretation Saturation: 97% Oxygen Delivery: room air Interpretation: normal DDX: gastritis, nausea and vomiting, dehydration, , UTI. Pertinent Labs: Results for orders placed or performed during the hospital encounter of 09/27/18 POCT urine Result Value Ref Range URINE HCG TEST negative NEGATIVE INT CTRL PERFORMED EXPECTED? yes lot [id number] exp 10-23-2019 RADIOLOGY No orders to display MEDS GIVEN IN ER: Medications ondansetron (ZOFRAN) injection 4 mg (not administered) ED COURSE & MEDICAL DECISION MAKING Pertinent Labs & Imaging studies reviewed. (See chart for details) Pt looks well in room. Awaiting UA and bloodwork results. Will give 1L NS with IV zofran and re-asses. Pt tolerating po fluids well. Will Rx phenergan. ? Disposition Discussion: Diagnostic tests were reviewed and questions answered. Diagnosis, care plan and treatment options were discussed. The patient understand instructions and will follow up as directed. DATE: 09/27/2018 3:44 PM PATIENT: Mariam Carter Discharge Clinical Impressions: gastroenteritis Discharge Condition: stable Discharge Disposition: Patient discharge to home with phenergan I spent time answering the patient's questions. Discharge instructions using teach back, understanding assessed and validated. Please refer to the exit conventional underwriter discharge instructions for details surrounding the discharge plan. I did reiterate with the patient that if an urgent need for immediate follow up comes up, not to hesitate to return to the ED. MEME Melo PA 09/27/18 1646 Cosigned by Maykel Moses MD at 09/30/2018 11:23 PM CDT * Yulia Corral RN - 09/27/2018 2:32 PM CDT Pt c/o n/v for the last 3 days documented in this encounter Plan of Treatment Not on file documented as of this encounter Procedures Procedure Name Priority Date/Time Associated Diagnosis Comments POCT URINE (BACK OFFICE) STAT 09/27/2018 3:26 PM CDT URINALYSIS WI REFLEX TO CULTURE STAT 09/27/2018 3:24 PM CDT COMPREHENSIVE METABOLIC PANEL STAT 09/27/2018 3:24 PM CDT CBC W/DIFF AUTOMATED STAT 09/27/2018 3:24 PM CDT documented in this encounter Results * POCT urine (09/27/2018 3:26 PM CDT) URINE HCG TEST negative NEGATIVE Internal Control performed as Expected? yes lot [id number] exp 10-23-2019 us [facility] POINT OF CARE TEST ORDERAB LES Final Result * (ABNORMAL) URINALYSIS WI REFLEX TO CULTURE (09/27/2018 3:24 PM CDT) SPECIMEN TYPE URINE CLEAN CATCH 09/27/2018 3:14 PM CDT [facility] COLOR (U) YELLOW 09/27/2018 4:09 PM T [facility] TRANSPARENCY CLOUDY 09/27/2018 4:09 PM T [facility] SPECIFIC GRAVITY (U) 1.015 1.001 - 1.030 09/27/2018 4:09 PM T [facility] U PH 5.0 5.0 - 9.0 09/27/2018 4:09 PM T [facility] LEUKOCYTES (U) NEGATIVE NEGATIVE 09/27/2018 4:09 PM T [facility] NITRITES NEGATIVE NEGATIVE 09/27/2018 4:09 PM T [facility] PROTEIN (U) NEGATIVE <30 MG/DL 09/27/2018 4:09 PM T [facility] URINE GLUCOSE NEGATIVE NEGATIVE MG/DL 09/27/2018 4:09 PM T [facility] KETONES MG/DL (U) NEGATIVE NEGATIVE MG/DL 09/27/2018 4:09 PM T [facility] UROBILINOGEN NEGATIVE NEGATIVE MG/DL 09/27/2018 4:09 PM T [facility] BILIRUBIN (U) NEGATIVE NEGATIVE MG/DL 09/27/2018 4:09 PM T [facility] BLOOD (U) LARGE(A) NEGATIVE 09/27/2018 4:09 PM T [facility] CULTURE & SENSITIVITY INDICATED? CULTURE IS NOT INDICATED 09/27/2018 4:09 PM T [facility] SQUAMOUS EPITHELIALS MODERATE /LPF 09/27/2018 4:09 PM T [facility] MUCUS MANY /LPF 09/27/2018 4:09 PM T [facility] WBC/HPF 2 <6 /HPF 09/27/2018 4:09 PM CDT [facility] RBC/HPF 2 <6 /HPF 09/27/2018 4:09 PM CDT [facility] URINE SPECIMEN OBTAINED BY CLEAN CATCH PROCEDURE / Unknown 09/27/2018 3:24 PM CDT us [facility] URINE ORDERABLES Final Res ult [facility] [address] [place] [address], [place] [phone] * (ABNORMAL) COMPREHENSIVE METABOLIC PANEL (09/27/2018 3:24 PM CDT) GLUCOSE 87 70 - 99 MG/DL 09/27/2018 4:09 PM CDT [facility] BUN 6(L) 7 - 18 MG/DL 09/27/2018 4:09 PM CDT [facility] CREATININE S/P/B 0.66 0.55 - 1.02 MG/DL 09/27/2018 4:09 PM CDT [facility] SODIUM S/P/B 139 136 - 145 MMOL/L 09/27/2018 4:09 PM CDT [facility] POTASSIUM S/P/B 3.6 3.5 - 5.1 MMOL/L 09/27/2018 4:09 PM CDT [facility] CHLORIDE S/P/B 107 100 - 108 MMOL/L 09/27/2018 4:09 PM CDT [facility] CO2 27.5 21 - 32 MMOL/L 09/27/2018 4:09 PM CDT [facility] CALCIUM S/P/B 9.4 8.5 - 10.1 MG/DL 09/27/2018 4:09 PM CDT [facility] BILIRUBIN TOTAL S/P/B 0.6 0.2 - 1.1 MG/DL 09/27/2018 4:09 PM CDT [facility] TOTAL PROTEIN S/P/B 7.7 6.4 - 8.2 G/DL 09/27/2018 4:09 PM CDT [facility] ALBUMIN S/P/B 4.5 3.4 - 5.0 G/DL 09/27/2018 4:09 PM CDT [facility] AST 13(L) 15 - 37 U/L 09/27/2018 4:09 PM CDT [facility] ALT 27 14 - 55 U/L 09/27/2018 4:09 PM T [facility] ALKALINE PHOSPHATASE S/P/B 76 50 - 136 U/L 09/27/2018 4:09 PM T [facility] ANION GAP 4.5(L) 5 - 15 MMOL/L 09/27/2018 4:09 PM T [facility] BUN CREATININE RATIO 9.2 6 - 26 09/27/2018 4:09 PM T [facility] A/G RATIO 1.4 1.0 - 2.0 RATIO 09/27/2018 4:09 PM T [facility] EGFR NON-AFR. AMER. >90 >90 ML/MIN/1.7 3 M2 09/27/2018 4:09 PM T [facility] EGFR AFR. AMER. >90 >90 ML/MIN/1.7 3 M2 09/27/2018 4:09 PM T [facility] Comment: NOTE: eGFR is not calculated for patients <18 years of age. This is an estimated GFR (CKD EPI) and should not be used for calculating drug doses. 09/27/2018 3:24 PM CDT [facility] Final Resu lt [facility] [address] [place] [address], * CBC W/DIFF AUTOMATED (09/27/2018 3:24 PM CDT) [facility] WBC 7.7 4.5 - 13.0 x10'3/uL 09/27/2018 3:56 PM CDT [facility] RBC 4.52 4.20 - 5.40 x10'6/uL 09/27/2018 3:56 PM CDT [facility] HGB 13.0 12.0 - 16.0 G/DL 09/27/2018 3:56 PM CDT [facility] HCT 39.4 38.0 - 48.0 % 09/27/2018 3:56 PM CDT [facility] MCV 87.2 81.0 - 99.0 FL 09/27/2018 3:56 PM CDT [facility] MCH 28.8 27.0 - 31.0 PG 09/27/2018 3:56 PM CDT [facility] MCHC 33.0 32.0 - 36.0 G/DL 09/27/2018 3:56 PM CDT [facility] RDW 12.7 11.5 - 14.5 % 09/27/2018 3:56 PM CDT [facility] PLT 234 130 - 400 x10'3/uL 09/27/2018 3:56 PM CDT [facility] MPV 11.0 9.3 - 12.2 FL 09/27/2018 3:56 PM CDT [facility] DIFFERENTIAL TYPE AUTOMATED DIFFERENTIAL 09/27/2018 3:56 PM CDT [facility] NEUTROPHILS % 76.1 % 09/27/2018 3:56 PM CDT [facility] LYMPHOCYTES % 15.5 % 09/27/2018 3:56 PM CDT [facility] MONOCYTES % 7.2 % 09/27/2018 3:56 PM CDT [facility] EOSINOPHILS 0.6 % 09/27/2018 3:56 PM CDT [facility] BASOPHILS 0.3 % 09/27/2018 3:56 PM CDT [facility] IMMATURE GRANS % 0.3 % 09/28/19 19 3:56 PM CDT [facility] ABS. NEUTROPHILS TOTAL 5.89 1.80 - 8.00 x10'3/uL 09/27/2018 3:56 PM CDT [facility] ABS. LYMPHOCYTES 1.20 1.20 - 5.20 x10'3/uL 09/27/2018 3:56 PM CDT [facility] ABS. MONOCYTES 0.56 0.24 - 0.86 x10'3/uL 09/27/2018 3:56 PM CDT [facility] ABS. EOSINOPHILS 0.05 0.04 - 0.36 x10'3/uL 09/27/2018 3:56 PM CDT [facility] ABS. BASOPHILS 0.02 0.01 - 0.08 x10'3/uL 09/27/2018 3:56 PM CDT [facility] ABS. IMMATURE GRANULOCYTES 0.02 0.00 - 0.49 x10'3/uL 09/27/2018 3:56 PM CDT [facility] 09/27/2018 3:24 PM CDT [facility] Final Resu lt [facility] [address] [place] [address], documented in this encounter Visit Diagnoses Diagnosis Gastroenteritis- Primary Other and unspecified noninfectious gastroenteritis and colitis documented in this encounter Administered Medications Inactive Administered Medications - up to 3 most recent administrations Medication Order MAR Action Action Date Dose Rate Site ondansetron (ZOFRAN) injection 4 mg 4 mg, Intravenous, Once, 1 dose, On 09/27/18 at 1545, IV push over 2-5 minutes. Given 09/27/2018 3:52 PM CDT 4 mg sodium chloride 0.9% bolus infusion SOLN 1,000 mL 1,000 mL, Intravenous, Administer over 15 Minutes, Bolus (Once), 1 dose, On 09/27/18 at 1600 New Bag 09/27/2018 3:58 PM CDT 1,000 mLs documented in this encounter Active and Recently Administered Medications Times are shown in CDT. Scheduled Medication Order 09/25/2018 09/26/2018 09/27/2018 ondansetron (ZOFRAN) injection 4 mg (COMPLETED) 4 mg, Intravenous, Once, 1 dose, On 09/27/18 at 1545, IV push over 2-5 minutes. 1552 (Given - Provid er: Crystal Sandoval RN) sodium chloride 0.9% bolus infusion SOLN 1,000 mL (COMPLETED) 1,000 mL, Intravenous, Administer over 15 Minutes, Bolus (Once), 1 dose, On 09/27/18 at 1600 1558 (New Bag - Prov ider: Crystal Sandoval RN)1638 (Infusion Stop Time - Provider: Crystal Sandoval RN) documented in this encounter Care Teams Pigskin Trimmer Relationship Specialty Start Date End Date Lorin Casillas MD PCP - General FAMILY PRACTICE 07/22/18 11/29/21 documented as of this encounter
--- OUTSIDE RECORDS SUMMARY | 2024-03-15 14:35 | XMS_ITS | Encounter Summary ---
Author Organization [facility] Address [address] [place] [address]. [place], [place] [id number] [place] [id number] Care Team Providers Care Dry Heat Cabinet Attendant Name Role Phone None, Provider MD Primary Care Provider Unavaila ble Reason for Visit * Reason Onset Date Comments Referral 04/25/2022 Encounter Details Date Type Department Care Team (Late st Contact Info) Description 04/25/[address] [phone] [place], [facility] Referral Social History Tobacco Use Types Packs/Day Years [...] of this encounter Progress Notes * Brittany Spangler RN - 04/25/2022 3:21 PM CST Referral faxed. BRITTANY SPANGLER RN 04/25/2022 ITY ENGINEER * Lexi Dumont - 04/25/2022 3:12 PM CST Please fax Ambulatory referral to Neurology ([facility]) (Order # [id number]) on 12/19/2021 To [facility] PH: [phone] ITY ENGINEER documented in this encounter Plan of Treatment Not on file documented as of this encounter Visit Diagnoses Not on filedocumented in this encounter Additional Health Concerns Assessment Noted Time PHQ-9 Depression Total Score: 16 022 10:37 AM CDT documented as of this encounter Care Teams Dry Heat Cabinet Attendant Relationship Specialty Start Date End Date None, Provider, PCP - General 12/27/21 06/19/22 documented as of this encounter
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
--- OUTSIDE RECORDS SUMMARY | 2024-03-15 14:35 | XMS_ITS | Encounter Summary ---
Author Organization [facility] Address [address] [place] [address]. [place], [place] [address] [place] [address] Care Team Providers Care English Language Learner Teacher Name Role Phone La Nena Ferro TENTER FEEDER-BC Primary Care Provider Unav ailable Reason for Visit * Reason Onset Date Comments Concerns 07/13/2022 Encounter Details Date Type Department Care Team (Late st Contact Info) Description 07/13/[address] [phone] La Nena Ferro, TENTER FEEDER-BC Concerns Social History Tobacco Use Types Packs/Day [...] Progress Notes * Brittany Padilla RN - 07/13/2022 9:31 AM CDT Received a call from patient stating that she was seen in ER last night for vaginal bleeding. She is currently . She stated that she was told to follow up with her OB and PCP for US and repeat HCG in 48 hrs. She stated that she called her OB this morning ([facility] in [place]) and was toldthat her OB is not in today and to call her PCP. Advised her that La Nena is also not in office todayand that this is something that really needs to be handled by her OB and not her PCP. Discussed that they should have an emergency line and/or someone control systems developer that should be able to order the US and lab work for her. She stated that she would call them back. Told her to call us back if she had any p roblems. She verbalized understanding. BRITTANY PADILLA RN 07/13/2022 documented in this encounter Plan of Treatment Not on file documented as of this encounter Visit Diagnoses Not on filedocumented in this encounter Additional Health Concerns Assessment Noted Time PHQ-9 Depression Total Score: 16 01/02/ 022 10:37 AM CDT documented as of this encounter Care Teams English Language Learner Teacher Relationship Specialty Start Date End Date La Nena Ferro, TENTER FEEDER- PCP - General Nurse Practitioner Family 06/20/22 3 documented as of this encounter
--- OUTSIDE RECORDS SUMMARY | 2024-03-15 14:35 | XMS_ITS | Encounter Summary ---
Author Organization [facility] Address [address] [place] [address]. [place], [place] [address] [place] [address] Care Team Providers Care Digital Analyst Name Role Phone Shana Easton MD Primary Care Provider [phone] La Nena Ferro [facility] Primary Care Provider Unav ailable None, Provider Primary Care Provider Unavaila ble Reason for Visit * Reason Comments Pathology (SCAN) Encounter Details Date Type Department Care Team ([facility] Contact Info) Description 07/22/2021 Scan HEALTH INFO SRVCS Scanned, Doc Med Group Pathology (SCAN) Social History Tobacco Use Types Packs/Day Years [...] Coronavirus/COVID-19? No / Unsure 02/24/2022 8:29 AM WASTE/MATERIALS EXCHANGE SPECIALIST documented as of this encounter Plan of Treatment Not on file documented as of this encounter Procedures Procedure Name Priority Date/Time Associated Diagnosis Comments OUTSIDE CYTOPATH CERV/VAG IN TERPRET (PAP) 07/22/2021 documented in this encounter Results * PAP SMEAR WITH HPV (07/22/2021) 07/22/2021 us Doc Med Group Scanned SCANNING Final Resu lt documented in this encounter Visit Diagnoses Not on filedocumented in this encounter Care Teams Digital Analyst Relationship Specialty Start Date End Date Shana Easton MD PCP - General FAMILY PRACTICE 07/22/18 11/29/21 La Nena Ferro, SHIP WASHER- PCP - General Nurse Practitioner Family 11/30/21 2 None, Gualberto, PCP - General 12/27/21 06/19/22 documented as of this encounter
--- OUTSIDE RECORDS SUMMARY | 2024-03-15 14:35 | XMS_ITS | Encounter Summary ---
Author Organization [facility] Address [address] [place] [address]. [place], [place] [address] [place] [address] Care Team Providers Care Funeral Planner Name Role Phone None, Provider Primary Care Provider Jacquelin baker Encounter Details Date Type Department Care Team (Late st Contact Info) Description 01/02/2022 MyChart Message Enc [facility] Medical [facility] [address] [phone] Manav Cruz MD [address] [place] [address] Appointment Social History Tobacco Use Types Packs/Day Years [...] as of this encounter Progress Notes * Stephanie Tamez MA - 01/02/2022 1:27 PM CDT Called patient to schedule appt on 01/04 and she informed that she got into to see her pcp and theytook care of the issue for now. * tSephanie Tamez MA - 01/02/2022 11:40 AM CDTFrom: Mariam Lea To: Dr. Manav Cruz Sent: 01/02/2022 11:33 AM CDT Subject: Appointment Hello, just checking in to see if you have anything sooner, I???m off on . documented in this encounter Plan of Treatment Not on file documented as of this encounter Visit Diagnoses Not on filedocumented in this encounter Additional Health Concerns Assessment Noted Time PHQ-9 Depression Total Score: 16 022 10:37 AM CDT documented as of this encounter Care Teams Funeral Planner Relationship Specialty Start Date End Date None, Provider, PCP - General 12/27/21 06/19/22 documented as of this encounter
--- OUTSIDE RECORDS SUMMARY | 2024-03-15 14:35 | XMS_ITS | Encounter Summary ---
Author Organization [facility] Address [address] [place] [address]. [place], [place] [address] [place] [address] Care Team Providers Care Operator Automated Process Name Role Phone La Nena Ferro Primary Care Provider Unav ailable None, Provider Primary Care Provider Jacquelin baker Encounter Details Date Type Department Care Team (Late st Contact Info) Description 12/20/2021 Firm[address] Message [address] [address] [place], [facility] Provider Lab results Social History Tobacco Use Types Packs/Day Years [...] as of this encounter Progress Notes * ELDA Orellana - 12/28/2021 12:12 PM Rocio Hess RN 12/28/2021 11:02 AM CDT Please advise? ----- Message ----- From: Mariam Lea Sent: 12/28/2021 11:01 AM CDT To: Toni Vieira [facility] Triage Pool Subject: Lab results No, we're not from around here unfortunately documented in this encounter Plan of Treatment Not on file documented as of this encounter Visit Diagnoses Not on filedocumented in this encounter Care Teams Operator Automated Process Relationship Specialty Start Date End Date La Nena Ferro FNP-BC PCP - General Nurse Practitioner Family 11/30/21 2 None, Provider, PCP - General 12/27/21 06/19/22 documented as of this encounter
--- OUTSIDE RECORDS SUMMARY | 2024-03-15 14:35 | XMS_ITS | Encounter Summary ---
Author Organization [facility] Address [address] [place] [address]. [place], [place] [address] [place] [address] Care Team Providers Care Cut Off Saw Grader Name Role Phone La Nena Ferro TEACHER OF GIFTED STUDENTS-BC Primary Care Provider Unav ailable Encounter Details Date Type Department Care Team (Latest Contact Info) Description 06/20/2022 Scan MG HEALTH INFO SRVCS Scanned, Doc Med Group Social History Tobacco Use Types Packs/Day Years [...] documented as of this encounter Care Teams Cut Off Saw Grader Relationship Specialty Start Date End Date La Nena Ferro, MARA-BC PCP - General Nurse Practitioner Family 06/20/22 3 documented as of this encounter
--- OUTSIDE RECORDS SUMMARY | 2024-03-15 14:35 | XMS_ITS | Encounter Summary ---
Author Organization [facility] Address [address] [place] [address]. [place], [place] [address] [place] [address] Care Team Providers Care Paring Machine Operator Name Role Phone La Nena Ferro THERAPEUTIC DIETITIAN- Primary Care Provider Unav ailable None, Provider Primary Care Provider Unavaila ble Reason for Visit * Reason Onset Date Comments Record Request 12/20/2021 Encounter Details Date Type Department Care Team (Late st Contact Info) Description 12/20/[address] [phone] La Nena Ferro, [facility]- Record Request Social History Tobacco Use Types Packs/Day Years [...] as of this encounter Progress Notes * Jil Franklin MA - 01/31/2022 1:56 PM CST Received and sent to PCP END JAVA DEVELOPER * Jil Franklin MA - 01/08/2022 8:43 AM CDT 2nd request sent * Jil Franklin MA - 12/20/2021 1:06 PM CDT I have faxed [facility] for pap report. documented in this encounter Plan of Treatment Not on file documented as of this encounter Visit Diagnoses Not on filedocumented in this encounter Care Teams Paring Machine Operator Relationship Specialty Start Date End Date La Nena Ferro, [facility]- PCP - General Nurse Practitioner Family 11/30/21 2 None, Provider, PCP - General 12/27/21 06/19/22 documented as of this encounter
--- OUTSIDE RECORDS SUMMARY | 2024-03-15 14:35 | XMS_ITS | Encounter Summary ---
Author Organization [facility] Address [address] [place] [address]. [address] [address] Care Team Providers Care Tele Rn Name Role Phone None, Provider Primary Care Provider Jacquelin baker Encounter Details Date Type Department Care Team (Latest Contact Info) Description 02/24/2022 Travel Social History Tobacco Use Types Packs/Day [...] Coronavirus/COVID-19? No / Unsure 02/24/2022 8:29 AM AWS SOLUTION ARCHITECT documented as of this encounter Plan of Treatment Not on file documented as of this encounter Visit Diagnoses Not on filedocumented in this encounter Additional Health Concerns Assessment Noted Time PHQ-9 Depression Total Score: 16 022 10:37 AM CDT documented as of this encounter Care Teams Tele Rn Relationship Specialty Start Date End Date None, Provider, PCP - General 12/27/21 06/19/22 documented as of this encounter
--- OUTSIDE RECORDS SUMMARY | 2024-03-15 14:35 | XMS_ITS | Encounter Summary ---
Author Organization [facility] Address [address] [place] [address]. [place], [place] [address] [place] [address] Care Team Providers Care Advance Seal Delivery System Maintainer Name Role Phone None, Provider Primary Care Provider Jacquelin baker Encounter Details Date Type Department Care Team (Latest Contact Info) Description 12/27/2021 Travel Social History Tobacco Use Types Packs/Day [...] on filedocumented in this encounter Care Teams Advance Seal Delivery System Maintainer Relationship Specialty Start Date End Date None, Provider, PCP - General 12/27/21 06/19/22 documented as of this encounter
--- OUTSIDE RECORDS SUMMARY | 2024-03-15 14:35 | XMS_ITS | Encounter Summary ---
Author Organization [facility] Address [address] [place] [address]. [place], [place] [address] [place] [address] Care Team Providers Care Tomato Grader Name Role Phone Victoria Tarango-PATRICIA Primary Care Provider Unav ailable Reason for Referral * Consultation (Routine) - Closed Specialty Diagnoses / Procedures Referred By Dora oconnor Referred To Contact NEUROLOGY Diagnoses Confusion and disorientation Procedures OFFICE/OUTPT VISIT,NEW,LEVL III OFFICE/OUTPT VISIT,NEW,LEVL IV OFFICE/OUTPT VISIT,NEW,LEVL V OFFICE/OUTPT VISIT,EST,LEVL III OFFICE/OUTPT VISIT,EST,LEVL IV OFFICE/OUTPT VISIT,EST,LEVL V Victoria Tarango FNP-BC [facility] [address] [address] Phone: tel: fax: Referral ID Status Reason Start Date Expiration Date V isits Requested Visits Authorized [id number] Closed Specialty Services 12/19/2021 01/20/2023 99 99 Scheduling Instructions Please evaluate for episodes of confusion, disorientation with bright flashing lights. Family history of epilepsy. Reason for Visit * Reason Comments New Patient Encounter Details Date Type Department Care Team (Late st Contact Info) Description 12/19/2021 2:00 PM CDT Office Visit [address] [phone] Victoria Tarango FNP-BC New Patient Social History Tobacco Use Types Packs/Day Years [...] Sign Reading Time Taken Comments Blood Pressure 101/71 12/19/2021 1:17 PM CDT Pulse 75 12/19/2021 1:17 PM CDT Temperature 36.8 ??C (98.3 ??F) 12/19/2021 1:17 PM CD T Respiratory Rate 18 12/19/2021 1:17 PM CDT Oxygen Saturation 98% 12/19/2021 1:17 PM CDT Inhaled Oxygen Concentration - - Weight 50.3 kg (111 lb) 12/19/2021 1:17 PM CDT Height 160 cm (5' 3 ) 12/19/2021 1:17 PM CDT Body Mass Index 19.66 12/19/2021 1:17 PM CDT documented in this encounter Progress Notes * Victoria Tarango, [facility] - 12/19/2021 2:00 PM CDT Reason for Visit: New Patient History of Present Illness: Pt presents with concern for vs miscarrage. Pt has history of miscarriage. 2 in the past.Lmp 11/07/2021. Denies cramping, bleeding, fever. Needs HCG quant to be evaluated by [facility] in [place]. Took an at home preg test and had a faint pos 2 weeks ago. Pt is also having burning with urination and frequency. No vaginal discharge. Normal BMs. No fever or back pain. ROS: Constitutional: Negative. HENT: Negative. Eyes: Negative. Respiratory: History of asthma with activity. Controlled with lifestyle. Cardiovascular: Negative. Gastrointestinal: see hpi Genitourinary: see hpi Musculoskeletal: Negative. Skin: Negative. Neurological: reports family history of epilepsy. She was never diagnosed but on tegretol as a child. Having confusion, facial numbness and disorientation when exposed to bright lights from headlights, strobe lights or video games since 2017. States happening approx 2 times in 6 months. Pt pulls over when happens while driving. Pt denies events causing stress or anxiety. Endo/Heme/Allergies: Hx of ovarian cysts and miscarriages. Pt also states history of feeling of throat closing off after last two covid vac. Symptom resolved after 2-3 days. Psychiatric/Behavioral: History of PTSD from childhood currently controlled with lifestyle and coping mechanisms. Medications: No current outpatient medications on file. Allergies Allergen Reactions ??? Ciprofloxacin Other (see comment) Pt states I can't breath ??? Levaquin [Levofloxacin] Rash Past Medical History: Diagnosis Date ??? Asthma ??? Depression ??? History of suicidal ideation ??? PTSD (post-traumatic stress disorder) Past Surgical History: Procedure Laterality Date ??? ADENOIDECTOMY ??? BREAST SURGERY ??? TONSILLECTOMY Social History Tobacco Use ??? Smoking status: Never Smoker ??? Smokeless tobacco: Never Used Substance Use Topics ??? Alcohol use: No ??? Drug use: No Family History Problem Relation Name Age of Onset ??? Asthma Mother Physical exam: General Appearance: Well developed. Well nourished. In no acute distress. Neck: Supple. Trachea midline. Thyroid normal. Bilateral ears: External auditory canal and tympanic membrane normals Nose: No nasal discharge seen. Pharynx: oropharynx: normal. Lymph Nodes: no cervical lymphadenopathy Lungs: Clear to auscultation bilaterally, no wheezes, rales, or rhonchi Cardiovascular: Heart rate and rhythm without murmurs, click, rubs, or gallops. Posterior tibial pulses 2+ bilaterally. No lower extremity edema Abdomen: Generalized abdominal tenderness to palpation. No mass or hepatosplenomegaly Musculoskeletal System: General/bilateral: ?? Overall findings were normal. Skin: Warm, normal. Neurological: CN 3-12 intact. Psychiatric: Normal mood and affect Victoria Tarango APRN Filed Vitals: 12/19/21 1317 BP: 101/71 Pulse: 75 Resp: 18 Temp: 98.3 ??F (36.8 ??C) TempSrc: Skin SpO2: 98% Weight: 50.3 kg (111 lb) Height: 5' 3 (1.6 m) Body mass index is 19.66 kg/m??. Assessment and plan: 1. Burning with urination Increase hydration. May take AZO for 2 days if needed for pain relief. RTO if worsening. - URINALYSIS AUTO DIP WNL 2. Menstrual period late Follow up with [facility] - TEST URINE NEGATIVE - HCG QUANT (SERUM)-CHORIONIC GONADOTROPIN; Future 3. Need for hepatitis C screening test Ordered today - HEPATITIS C AB ([facility] ONLY); Future 4. Vitamin D deficiency Will recheck in 1 year. - Cholecalciferol (D3) 50 MCG (1999 UT) Tab; Take 1 tablet by mouth daily for 30 days. Dispense: 30tablet; Refill: 12 5. Confusion and disorientation Keep a log of when events are happening. Referral placed for evaluation. If having worsening eventsgo to ER. - Ambulatory referral to Neurology ([facility]) 6. Allergy to COVID 19 immunization Recommended pt to not receive another booster of COVID 19 without direct observation. Last two produced feeling of closing off of throat. PREVENTATIVE Medicine- Tetanus vaccination: 2016 COVID: completed with booster (reported throat felt like closed off for 2-3 days) do not recommend another vaccine. Influenza vaccination: recommended. [facility] employee will get at work. Pneumonia vaccination: Shingles vaccination: Mammogram: Pap/WWE: pt states 11/2020, awaiting records dexa scan: Hepatitis C screening: recommened Lung cancer screxiomara calos: Colonoscopy: @43 Routine labs: n/a The patient is advised to continue current healthy lifestyle patterns and return for routine annualcheckups. VICTORIA TARANGO Cosigned by Markus Soriano MD at 12/20/2021 8:48 AM CDT documented in this encounter Plan of Treatment Scheduled Referrals Name Type Priority Associated Diagnoses Orde r Schedule Ambulatory referral to Neurology ([facility]) Referral Routine Confusion and disorientation Ordered: 12/19/2021 documented as of this encounter Procedures Procedure Name Priority Date/Time Associated Diagnosis Comments TEST URINE Routine 12/19/2021 Menstrual period late URINALYSIS AUTO DIP Routine 12/19/2021 Burning with urination documented in this encounter Results * HEPATITIS C AB ([facility] ONLY) (12/19/2021 2:27 PM CDT) [facility] HEPATITIS C AB NON-REACTI VE NON-REACTI VE 12/19/2021 7:56 PM CDT [facility] 12/19/2021 2:27 PM CDT us Victoria Tarango [facility] Final Resul t [facility] [address] [place] [address], * HCG QUANT (SERUM)-CHORIONIC GONADOTROPIN (12/19/2021 2:27 PM CDT) [facility] HCG QUANTITATIVE <1 MIU/ML 12/21/19 22 9:57 AM CDT [facility] Comment: WEEKS OF ? REFERENCE RANGES [...] ?10,000 - 100,000 12/19/2021 2:27 PM CDT [facility] Final Resul t [facility] [address] [place] [id number], [place] [phone] * TEST URINE (12/19/2021) URINE HCG TEST NEGATIVE NEGATIVE [facility] [facility] ([address]), [facility] Internal Control: VALID VALID [facility] [facility] (9401), [facility] URINE SPECIMEN FROM URETHRA / Unknown 12/19/2021 Victoria Haynes Tarango [facility] URINE ORDERABLES Final Resu lt [facility] (9401), [facility] [address] [address], [place] [phone] * URINALYSIS AUTO DIP (12/19/2021) COLOR (U) YELLOW [facility] [facility] (9401), [facility] TRANSPARENCY CLEAR [facility] [facility] (9401), [facility] GLUCOSE (U) NEGATIVE NEGATIVE MG/DL [facility] (9401), [facility] BILIRUBIN (U) NEGATIVE NEGATIVE [facility] (9401), [facility] KETONES MG/DL (U) NEGATIVE NEGATIVE MG/DL [facility] [facility] (9401), [facility] SPECIFIC GRAVITY (U) 1.015 1.001 - 1.035 [facility] (9401), [facility] BLOOD (U) NEGATIVE NEGATIVE [facility] [facility] (9401), [facility] U PH 6.5 5.0 - 9.0 [facility] (9401), [facility] PROTEIN (U) NEGATIVE NEGATIVE mg/dL [facility] [facility] (9401), [facility] UROBILINOGEN 0.2 0.2 - 1.0 EU/dL = mg/dL [facility] (9401), [facility] NITRITES NEGATIVE NEGATIVE MG/DL [facility] (9401), [facility] LEUKOCYTES (U) NEGATIVE NEGATIVE [facility] L[facility] (9401), [facility] URINE SPECIMEN OBTAINED BY CLEAN CATCH PROCEDURE / Unknown 12/19/2021 Victoria BARCLAYP- URINE ORDERABLES Final Resu lt [facility] [facility] (9401), [facility] [address] [place] [address], [place] [phone] documented in this encounter Visit Diagnoses Diagnosis Burning with urination- Primary Dysuria Menstrual period late Other disorder of menstruation and other abnormal bleeding from female genital tract Need for hepatitis C screening test Special screening examination for other specified viral diseases Vitamin D deficiency Unspecified vitamin D deficiency Confusion and disorientation Allergy to COVID-19 vaccine documented in this encounter Care Teams Tomato Grader Relationship Specialty Start Date End Date Victoria Tarango FNP-BC PCP - General Nurse Practitioner Family 11/30/21 2 documented as of this encounter
--- OUTSIDE RECORDS SUMMARY | 2024-03-15 14:35 | XMS_ITS | Encounter Summary ---
Author Organization [facility] Address [address] [place] [address]. [place], [place] [address] [place] [address] Care Team Providers Care Wastewater Plant Civil Engineer Name Role Phone La Nena Ferro RACEBOOK WRITER- Primary Care Provider Unav ailable Reason for Visit * Reason Onset Date Comments Advice 06/20/2022 Encounter Details Date Type Department Care Team (Late st Contact Info) Description 06/20/2022 Telephone [facility] DEFAULT La Nena Ferro, RACEBOOK WRITER-PATRICIA Advice Social History Tobacco Use Types Packs/Day [...] Progress Notes * Michelle Soto RN - 06/20/2022 10:40 AM CDT Spoke with Mariam she said that she seizures and had a seizure last night. She said that she is having tingling on her one side and some increase in confusion. She said that her foot was having spasm's also. She said that she called the neurologist and since they have not seen her yet they told herto call here. I explained to Mariam that with what she told me and the increase in confusion I would go to the ER. I suggested [facility] since the neurologist are there. She verbalized understandingand will go. * Geeta Cruz - 06/20/2022 10:31 AM CDT Patient stated she had a seizure last night and having tingly. Transferred to a RN documented in this encounter Plan of Treatment Not on file documented as of this encounter Visit Diagnoses Not on filedocumented in this encounter Additional Health Concerns Assessment Noted Time PHQ-9 Depression Total Score: 16 022 10:37 AM CDT documented as of this encounter Care Teams Wastewater Plant Civil Engineer Relationship Specialty Start Date End Date La Nena Ferro, RACEBOOK WRITER- PCP - General Nurse Practitioner Family 06/20/22 3 documented as of this encounter
--- OUTSIDE RECORDS SUMMARY | 2024-03-15 14:35 | XMS_ITS | Encounter Summary ---
Author Organization [facility] Address [address] [place] [address]. [place], [place] [id number] [place] [id number] Care Team Providers Care Telephone Sales Agent Name Role Phone Ferro La Nena Haynes [facility] Primary Care Provider Unav ailable Reason for Visit * Reason Comments Shortness Of Breath Abdominal Pain Back Pain Vaginal Bleeding Encounter Details Date Type Department Care Team (Late st Contact Info) Description 07/12/2022 7:42 PM CDT - 07/12/2022 11:45 PM CDT Emergency [facility] [place] [address] Kendall Barajas MD,PHD [address] [place] [id number] Suzette Lozano PA-C [address] [address] Shortness Of Breath ; Abdominal Pain; Back Pain; Vaginal Bleeding Discharge Disposition: Home or Self Care (Routine [...] Recorded In the last 10 days, have joan graham been in contact with someone who was confirmed or suspected to have Coronavirus/COVID-19? No / Unsure 07/12/2022 9:40 PM CDT documented as of this encounter Last Filed Vital Signs Vital Sign Reading Time Taken Comments Blood Pressure 117/76 07/12/2022 11:30 PM CDT Pulse 74 07/12/2022 6:59 PM CDT Temperature 36.7 ??C (98 ??F) 07/12/2022 6:59 PM CDT Respiratory Rate 16 07/12/2022 6:59 PM CDT Oxygen Saturation 98% 07/12/2022 11:30 PM CDT Inhaled Oxygen Concentration - - Weight 52.8 kg (116 lb 6.5 oz) 07/12/2022 6:59 P M CDT Height 160 cm (5' 3 ) 07/12/2022 6:59 PM CDT Body Mass Index 20.62 07/12/2022 6:59 PM CDT documented in this encounter Discharge Instructions * Discharge Instructions* Suzette Lozano PA-C - 07/12/2022 11:32 PM CDT Pelvic rest, nothing in the vagina until follow-up with your SPECIAL EDUCATION ADMINISTRATOR. Please follow-up with your SPECIAL EDUCATION ADMINISTRATOR for further evaluation of bleeding and cramping in early . You will likely need follow-up blood testing and ultrasound to track your . Continue to follow COVID quarantine guidelines. [id number] Tylenol as needed for pain. Return to the emergency room with new or worseningsymptoms, uncontrolled pain or bleeding, or further concern. * Attachments The following attachments cannot be sent through Care Everywhere. * Bleeding in Early ED (Mongolian) documented in this encounter Medications at Time of Discharge VITAMINS 28-0.8 MG tablet Take 1 tablet by mouth nightly at bedtime. at bedtime 07/02/2022 documented as of this encounter ED Notes * Suzette Lozano PA-C - 07/12/2022 11:31 PM CDTSummary: bleeding of [facility]'s ED NOTE Mariam Lea 2000 Chief Complaint Chief Complaint Patient presents with Shortness Of Breath Abdominal Pain Back Pain Vaginal Bleeding History of Present Illness Patient presents ambulatory to the emergency room through triage complaining of bilateral lower abdominal cramping pain and low back pain. Also reports scant vaginal bleeding/spotting, soaked 1 sanitary pad this evening. Patient concern for miscarriage. G6, P2, A3. 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 States that she is currently 8 weeks per ultrasound obtained1 week ago at [facility] SPECIAL EDUCATION ADMINISTRATOR. Reports IUP with low heart rate at that time. No current vaginal bleeding since the scant episode. Minimal pain reported. Denies fever, vomiting, diarrhea, urinary complaint, edema, chest pain, shortness of breath, vaginal discharge. States that she does have COVID-19 , diagnosed 3 days ago per home test. Reports dry cough. Denies difficulty breathing or further concerns. Unaware of blood type. Shortness Of Breath Associated symptoms include abdominal pain. Pertinent negatives include no chest pain, ear pain, fever, headaches, leg swelling, neck pain, rash, sore throat or vomiting. Abdominal Pain Associated symptoms: vaginal bleeding Associated symptoms: no chest pain, no constipation, no cough, no diarrhea, no dysuria, no fever, no hematuria, no nausea, no shortness of breath, no sore throat and no vomiting Back Pain Associated symptoms: abdominal pain Associated symptoms: no chest pain, no dysuria, no fever, no headaches, no numbness and no weakness Vaginal Bleeding Associated symptoms: abdominal pain and back pain Associated symptoms: no dizziness, no dysuria, no fever and no nausea Shortness Of Breath Associated symptoms include abdominal pain. Pertinent negatives include no chest pain, ear pain, fever, headaches, leg swelling, neck pain, rash, sore throat or vomiting. Abdominal Pain Associated symptoms: no chest pain, no constipation, no cough, no diarrhea, no dysuria, no fever, no hematuria, no nausea, no shortness of breath, no sore throat and no vomiting Back Pain Associated symptoms: abdominal pain Associated symptoms: no chest pain, no dysuria, no fever, no headaches, no numbness and no weakness Vaginal Bleeding Associated symptoms: abdominal pain and back pain Associated symptoms: no dizziness, no dysuria, no fever and no nausea Medical History ALLERGIES: Review of patient's allergies indicates: Allergen Reactions Ciprofloxacin Other (see comment) Pt states I can't breath Covid-19 (Adenovirus) Vaccine Throat swelling Pt reported throat had feeling of closing off after last 2 vaccines. Levaquin [Levofloxacin] Rash MEDICATIONS: Prior to Admission medications Not on File PAST MEDICAL HISTORY: Past Medical History: Diagnosis Date Asthma Bilateral ovarian cysts Depression History of suicidal ideation Major depression in full remission ([facility]) 10/14/2014 Mass of right breast 07/10/2012 Menorrhagia 10/14/2014 Poor growth affecting management of mother in third trimester 10/11/2017 PTSD (post-traumatic stress disorder) Short interval between pregnancies affecting , antepartum 10/11/2017 Vitamin D deficiency PAST SURGICAL HISTORY: [...] Vaping Use Vaping Use: Never used Substance Use Topics Alcohol use: Never Drug use: Never Review of Systems Review of Systems Constitutional: Negative for activity change, appetite change, fever and unexpected weight change. HENT: Negative for ear pain, sore throat and trouble swallowing. Eyes: Negative. Respiratory: Negative for cough, chest tightness and shortness of breath. Cardiovascular: Negative for chest pain, palpitations and leg swelling. Gastrointestinal: Positive for abdominal pain. Negative for abdominal distention, constipation, diarrhea, nausea and vomiting. Genitourinary: Positive for vaginal bleeding. Negative for dysuria, flank pain and hematuria. Musculoskeletal: Positive for back pain. Negative for arthralgias, myalgias and neck pain. Skin: Negative for color change, rash and wound. Allergic/Immunologic: Negative for immunocompromised state. Neurological: Negative for dizziness, speech difficulty, weakness, light- headedness, numbness and headaches. Hematological: Negative for adenopathy. Psychiatric/Behavioral: Negative. Physical Exam Filed Vitals: 07/12/22 1859 BP: 113/71 Pulse: 74 Resp: 16 Temp: 98 ??F (36.7 ??C) SpO2: 100% Weight: 52.8 kg (116 lb 6.5 oz) Height: 5' 3 (1.6 m) Physical Exam Vitals and nursing note reviewed. Exam conducted with a disability rater present. Constitutional: General: She is not in acute distress. Appearance: Normal appearance. She is well-developed. She is not ill-appearing, toxic-appearing or diaphoretic. HENT: Head: Normocephalic and atraumatic. Right Ear: External ear normal. Left Ear: External ear normal. Nose: Nose normal. Mouth/Throat: Mouth: Mucous membranes are moist. Pharynx: Oropharynx is clear. Eyes: Extraocular Movements: Extraocular movements intact. Conjunctiva/sclera: Conjunctivae normal. Pupils: Pupils are equal, round, and reactive to light. Neck: Thyroid: No thyromegaly. Trachea: No tracheal deviation. Cardiovascular: Rate and Rhythm: Normal rate and regular rhythm. Pulses: Normal pulses. Heart sounds: Normal heart sounds. Pulmonary: Effort: Pulmonary effort is normal. No respiratory distress. Breath sounds: Normal breath sounds. Abdominal: General: Abdomen is flat. Bowel sounds are normal. There is no distension. Palpations: Abdomen is soft. There is no mass. Tenderness: There is no abdominal tenderness. There is no guarding or rebound. Hernia: No hernia is present. Genitourinary: Comments: Deferred; no current uro vag sx reported. Musculoskeletal: General: No swelling, tenderness, deformity or signs of injury. Normal range of motion. Cervical back: Normal range of motion and neck supple. No rigidity. Lymphadenopathy: Cervical: No cervical adenopathy. Skin: General: Skin is warm and dry. Capillary Refill: Capillary refill takes less than 2 seconds. Findings: No rash. Neurological: General: No focal deficit present. Mental Status: She is alert and oriented to person, place, and time. Cranial Nerves: No cranial nerve deficit. Sensory: No sensory deficit. Motor: No weakness. Coordination: Coordination normal. Gait: Gait normal. Deep Tendon Reflexes: Reflexes normal. Psychiatric: Mood and Affect: Mood normal. Behavior: Behavior normal. Thought Content: Thought content normal. Judgment: Judgment normal. Diagnostic Studies / Procedures ELECTROCARDIOGRAMS: No results found for this visit on 07/12/22. LABORATORY STUDIES: Results for orders placed or performed during the hospital encounter of 04/20/23 CBC W/DIFF AUTOMATED Result Value Ref Range WBC 7.8 4.5 - 11.0 x10'3/uL RBC 4.59 4.20 - 5.40 x10'6/uL HGB 13.3 12.0 - 16.0 G/DL HCT 40.7 38.0 - 48.0 % MCV 88.7 81.0 - 99.0 FL MCH 29.0 27.0 - 31.0 PG MCHC 32.7 32.0 - 36.0 G/DL RDW 12.4 11.5 - 14.5 % PLT 263 130 - 400 x10'3/uL MPV 11.0 9.3 - 12.2 FL DIFFERENTIAL TYPE AUTOMATED DIFFERENTIAL NEUTROPHILS 60.0 % LYMPHOCYTES 29.0 % MONOCYTES 8.3 % EOSINOPHILS 1.9 % BASOPHILS 0.3 % IMMATURE GRANS 0.5 % ABS. NEUTROPHILS TOTAL 4.71 1.80 - 7.70 x10'3/uL ABS. LYMPHOCYTES 2.27 1.00 - 4.80 x10'3/uL ABS. MONOCYTES 0.65 0.24 - 0.86 x10'3/uL ABS. EOSINOPHILS 0.15 0.04 - 0.36 x10'3/uL ABS. BASOPHILS 0.02 0.01 - 0.08 x10'3/uL ABS. IMMATURE GRANULOCYTES 0.04 0.00 - 0.49 x10'3/uL COMPREHENSIVE METABOLIC PANEL Result Value Ref Range GLUCOSE 87 70 - 99 MG/DL BUN 6 (L) 7 - 18 MG/DL CREATININE S/P/B 0.54 (L) 0.55 - 1.02 MG/DL SODIUM 135 (L) 136 - 145 MMOL/L POTASSIUM 3.4 (L) 3.5 - 5.1 MMOL/L CHLORIDE S/P/B 104 100 - 108 MMOL/L CO2 26.2 21 - 32 MMOL/L CALCIUM 9.1 8.5 - 10.1 MG/DL BILIRUBIN TOTAL S/P/B 0.2 0.2 - 1.2 MG/DL TOTAL PROTEIN S/P/B 8.2 6.4 - 8.2 G/DL ALBUMIN S/P/B 4.1 3.4 - 5.0 G/DL AST 19 15 - 37 U/L ALT 35 14 - 55 U/L ALKALINE PHOSPHATASE S/P/B 72 50 - 136 U/L ANION GAP 4.8 (L) 5 - 15 MMOL/L BUN CREATININE RATIO 11.1 6 - 26 A/G RATIO 1.0 1.0 - 2.0 RATIO GFR ESTIMATE >90 >90 ML/MIN/1.73 M2 LIPASE Result Value Ref Range LIPASE 85 73 - 393 UNITS/L URINALYSIS Result Value Ref Range Specimen Type URINE CLEAN CATCH COLOR (U) LIGHT YELLOW TRANSPARENCY TURBID SPECIFIC GRAVITY (U) 1.009 1.001 - 1.030 U PH 5.5 5.0 - 9.0 LEUKOCYTES (U) NEGATIVE NEGATIVE NITRITES NEGATIVE NEGATIVE PROTEIN (U) NEGATIVE <30 MG/DL URINE GLUCOSE NORMAL NORMAL MG/DL KETONES (U) NEGATIVE NEGATIVE MG/DL UROBILINOGEN NORMAL NORMAL MG/DL BILIRUBIN (U) NEGATIVE NEGATIVE MG/DL BLOOD (U) NEGATIVE NEGATIVE CULTURE & SENSITIVITY INDICATED? CULTURE IS NOT INDICATED HCG QUANT (SERUM)-CHORIONIC GONADOTROPIN Result Value Ref Range HCG QUANTITATIVE 53,633 MIU/ML BLOOD TYPING, ABO AND RH Result Value Ref Range ABO/RH A POSITIVE POCT urine Result Value Ref Range URINE HCG TEST NEGATIVE NEGATIVE Internal Control: VALID VALID IMAGING STUDIES No orders to display ED Course / Medical Decision Making Medical Decision Making 11:33 PM-patient stable. Abdomen benign. Lungs clear bilaterally. Nontoxic appearance. No concerning vital signs. Patient denies any active vaginal bleeding at this time. States that she had scant bleeding initially this evening which soaked 1 sanitary pad. No bleeding since. Labs today indicate beta-hCG 55,000+ and patient blood type a positive. No indication for RhoGAM. No UTI noted per UA. Hematology and chemistry unremarkable for acute concern. H&H stable. Lipase unremarkable. No indication for ultrasound, patient has had documented IUP per ultrasound 1 week ago at her SPECIAL EDUCATION ADMINISTRATOR office of [facility] in [facility]. Patient is positive for COVID-19 without having any COVID c omplications today. No respiratory distress. No hypoxia. Will discharge home with close SPECIAL EDUCATION ADMINISTRATOR follow-up and PCP follow-up. Return precautions to the ED given, patient voices understanding. Amount and/or Complexity of Data Reviewed Labs: ordered. Decision-making details documented in ED Course. Risk OTC drugs. Prescription drug management. Medications - No data to display Clinical Impression Bleeding in early (Primary) There are no discharge medications for this patient. Disposition: Discharge Follow-Up: MARA Orellana-BC [address] [facility] [address] Call in 1 day [facility] [address] [facility] [address] [facility] [address] Call in 1 day SUZETTE LOZANO PA-C 07/12/2022 Suzette Lozano PA-C 07/12/22 8618 Cosigned by Kendall Barajas MD,PHD at 07/13/2022 4:44 AM CDT * Suzette Lozano PA-C - 07/12/2022 7:04 PM CDTSummary: miscarriage concern [place], [place] EMERGENCY DEPARTMENT ENCOUNTER Medical Screening Examination 07/12/22 7:04 PM Chief Complaint : No chief complaint on file. HPI : Mariam Lea is a 21-year-old female who presents c/o abdominal pain, low back pain, vaginal spotting. 8 weeks with confirmed IUP last week. Vital Signs: Filed Vitals: 07/12/22 1859 BP: 113/71 Pulse: 74 Resp: 16 SpO2: 100% Weight: 52.8 kg (116 lb 6.5 oz) Height: 5' 3 (1.6 m) Physical exam: A brief physical exam was completed to facilitate/expedite patient care. Fortune findings include: stable Plan: Labs were ordered to facilitate patient care. SUZETTE LOZANO PA-C 07/12/2022 Suzette Lozano PA-C 07/12/22 190 Cosigned by Gm Cruz MD at 07/12/2022 9:16 PM CDT * Rachel Oneal RN - 07/12/2022 7:01 PM CDT Pt presents to the ER with c/o abd and low back pain, spotting, dx with COVID three days ago. Having SOB, pt was told by her batch still operator to come into the hospital if this happens due to the 2 previous miscarriages and the low HR on the US, she has had a confirmed intrauterine , about a week ago. documented in this encounter Plan of Treatment Not on file documented as of this encounter Procedures Procedure Name Priority Date/Time Associated Diagnosis Comments POCT URINE (BACK OFFICE) STAT 07/12/2022 7:53 PM CDT HC BLOOD TYPING ABO STAT 07/12/2022 7 :50 PM CDT HC URINALYSIS AUTO W/O MICRO STAT 07/12/2022 7:49 PM CDT COMPREHENSIVE METABOLIC PANEL STAT 07/12/2022 7:06 PM CDT HCG QUANT (SERUM)-CHORIONIC GONADOTROPIN STAT 07/12/2022 7:06 PM CDT CBC W/DIFF AUTOMATED STAT 07/12/2022 7:06 PM CDT LIPASE STAT 07/12/2022 7:06 PM CDT documented in this encounter Results * POCT urine (07/12/2022 7:53 PM CDT) URINE HCG TEST NEGATIVE NEGATIVE Internal Control: VALID VALID us Suzette Lozano PA-C POINT OF CARE TEST ORDERABL ES Final Result * BLOOD TYPING, ABO AND RH (07/12/2022 7:50 PM CDT) ABO/RH A POSITIVE 07/12/2022 9:26 PM CDT [facility] 07/12/2022 7:50 PM CDT us Suzette Lozano PA-C BLOOD BANK TEST ORDERABLES Final Result [facility] [address] [place] [address], [place] [phone] * URINALYSIS (07/12/2022 7:49 PM CDT) SPECIMEN TYPE URINE CLEAN CATCH 07/12/2022 7:49 PM CDT [facility] COLOR (U) LIGHT YELLOW 07/12/2022 8:13 PM CDT [facility] TRANSPARENCY TURBID 07/12/2022 8:13 PM CDT [facility] SPECIFIC GRAVITY (U) 1.009 1.001 - 1.030 07/12/2022 8:13 PM CDT [facility] U PH 5.5 5.0 - 9.0 07/12/2022 8:13 PM CDT [facility] LEUKOCYTES (U) NEGATIVE NEGATIVE 07/12/2022 8:13 PM CDT [facility] NITRITES NEGATIVE NEGATIVE 07/12/2022 8:13 PM CDT [facility] PROTEIN (U) NEGATIVE <30 MG/DL 07/12/2022 8:13 PM CDT [facility] URINE GLUCOSE NORMAL NORMAL MG/DL 07/12/2022 8:13 PM CDT [facility] KETONES MG/DL (U) NEGATIVE NEGATIVE MG/DL 07/12/2022 8:13 PM CDT [facility] UROBILINOGEN NORMAL NORMAL MG/DL 07/12/2022 8:13 PM CDT [facility] BILIRUBIN (U) NEGATIVE NEGATIVE MG/DL 07/12/2022 8:13 PM CDT [facility] BLOOD (U) NEGATIVE NEGATIVE 07/12/2022 8:13 PM CDT [facility] CULTURE & SENSITIVITY INDICATED? CULTURE IS NOT INDICATED 07/12/2022 8:13 PM CDT [facility] URINE SPECIMEN OBTAINED BY CLEAN CATCH PROCEDURE / Unknown 07/12/2022 7:49 PM CDT Suzette Lozano PA-C URINE ORDERABLES Final Resu lt [facility] [address] [place] [address], * HCG QUANT (SERUM)-CHORIONIC GONADOTROPIN (07/12/2022 7:06 PM CDT) HCG QUANTITATIVE 53,633 MIU/ML 07/13/19 9:16 PM CDT [facility] Comment: WEEKS OF ? REFERENCE RANGES Non- female ?< or = 2 ? 0.2 - 1 ? 5 - [...] 2 - 3 MONTHS ?10,000 - 100,000 07/12/2022 7:06 PM CDT Suzette Lozano PA-C LABORATORY Final Resul t [facility] [address] [place] [address], [place] [phone] * LIPASE (07/12/2022 7:06 PM CDT) LIPASE 85 73 - 393 UNITS/L 07/12/2022 8:46 PM CDT [facility] 07/12/2022 7:06 PM CDT Suzette Lozano PA-C LABORATORY Final Resul t Performing Organization Address City/[facility]/ZIP Co de Phone Number [facility] [address] [place] [address], [place] [phone] * (ABNORMAL) COMPREHENSIVE METABOLIC PANEL (07/12/2022 7:06 PM CDT) GLUCOSE 87 70 - 99 MG/DL 07/12/2022 8:46 PM CDT [facility] BUN 6(L) 7 - 18 MG/DL 07/12/2022 8:46 PM CDT [facility] CREATININE S/P/B 0.54(L) 0.55 - 1.02 MG/DL 07/12/2022 8:46 PM CDT [facility] SODIUM S/P/B 135(L) 136 - 145 MMOL/L 07/12/2022 8:46 PM CDT [facility] POTASSIUM S/P/B 3.4(L) 3.5 - 5.1 MMOL/L 07/12/2022 8:46 PM CDT [facility] CHLORIDE S/P/B 104 100 - 108 MMOL/L 07/12/2022 8:46 PM CDT [facility] CO2 26.2 21 - 32 MMOL/L 07/12/2022 8:46 PM CDT [facility] CALCIUM S/P/B 9.1 8.5 - 10.1 MG/DL 07/12/2022 8:46 PM CDT [facility] BILIRUBIN TOTAL S/P/B 0.2 0.2 - 1.2 MG/DL 07/12/2022 8:46 PM CDT [facility] Comment: THIS ASSAY IS NOT RECOMMENDED FOR PATIENTS UNDERGOING TREATMENT WITH ELTROMBOPAG DUE TO THE POTENTIAL FOR FALSELY ELEVATED RESULTS. TOTAL PROTEIN S/P/B 8.2 6.4 - 8.2 G/DL 07/12/2022 8:46 PM CDT [facility] ALBUMIN S/P/B 4.1 3.4 - 5.0 G/DL 07/12/2022 8:46 PM CDT [facility] AST 19 15 - 37 U/L 07/12/2022 8:46 PM CDT [facility] ALT 35 14 - 55 U/L 07/12/2022 8:46 PM CDT [facility] ALKALINE PHOSPHATASE S/P/B 72 50 - 136 U/L 07/12/2022 8:46 PM CDT [facility] ANION GAP 4.8(L) 5 - 15 MMOL/L 07/12/2022 8:46 PM CDT [facility] BUN CREATININE RATIO 11.1 6 - 26 07/12/2022 8:46 PM CDT [facility] A/G RATIO 1.0 1.0 - 2.0 RATIO 07/12/2022 8:46 PM CDT [facility] GFR ESTIMATE >90 >90 ML/MIN/1.7 3 M2 07/12/2022 8:46 PM CDT [facility] Comment: NOTE: eGFR is not calculated for patients <18 years of age. This is an estimated GFR calculation using the new CKD EPI creatinine equation without race and so does not require a correction factor for race. This estimated GFR should not be used for calculating drug doses. 07/12/2022 7:06 PM CDT us Suzette Lozano PA-C LABORATORY Final Resul t [facility] [address] [place] [address], [place] [phone] * CBC W/DIFF AUTOMATED (07/12/2022 7:06 PM CDT) WBC 7.8 4.5 - 11.0 x10'3/uL 07/12/2022 8:17 PM CDT [facility] RBC 4.59 4.20 - 5.40 x10'6/uL 07/12/2022 8:17 PM CDT [facility] HGB 13.3 12.0 - 16.0 G/DL 07/12/2022 8:17 PM CDT [facility] HCT 40.7 38.0 - 48.0 % 07/12/2022 8:17 PM CDT [facility] MCV 88.7 81.0 - 99.0 FL 07/12/2022 8:17 PM CDT [facility] MCH 29.0 27.0 - 31.0 PG 07/12/2022 8:17 PM CDT [facility] MCHC 32.7 32.0 - 36.0 G/DL 07/12/2022 8:17 PM CDT [facility] RDW 12.4 11.5 - 14.5 % 07/12/2022 8:17 PM CDT [facility] PLT 263 130 - 400 x10'3/uL 07/12/2022 8:17 PM CDT [facility] MPV 11.0 9.3 - 12.2 FL 07/12/2022 8:17 PM CDT [facility] DIFFERENTIAL TYPE AUTOMATED DIFFERENTIAL 07/12/2022 8:17 PM CDT [facility] NEUTROPHILS % 60.0 % 07/12/2022 8:17 PM CDT [facility] LYMPHOCYTES % 29.0 % 07/12/2022 8:17 PM CDT [facility] MONOCYTES % 8.3 % 07/12/2022 8:17 PM CDT [facility] EOSINOPHILS 1.9 % 07/12/2022 8:17 PM CDT [facility] BASOPHILS 0.3 % 07/12/2022 8:17 PM CDT [facility] IMMATURE GRANS % 0.5 % 07/13/19 8:17 PM CDT [facility] ABS. NEUTROPHILS TOTAL 4.71 1.80 - 7.70 x10'3/uL 07/12/2022 8:17 PM CDT [facility] ABS. LYMPHOCYTES 2.27 1.00 - 4.80 x10'3/uL 07/12/2022 8:17 PM CDT [facility] ABS. MONOCYTES 0.65 0.24 - 0.86 x10'3/uL 07/12/2022 8:17 PM CDT [facility] ABS. EOSINOPHILS 0.15 0.04 - 0.36 x10'3/uL 07/12/2022 8:17 PM CDT [facility] ABS. BASOPHILS 0.02 0.01 - 0.08 x10'3/uL 07/12/2022 8:17 PM CDT [facility] ABS. IMMATURE GRANULOCYTES 0.04 0.00 - 0.49 x10'3/uL 07/12/2022 8:17 PM CDT [facility] 07/12/2022 7:0 6 PM CDT us Suzette Lozano PA-C LABORATORY Final Resul t [facility] [address] [place] [address], [place] [phone] documented in this encounter Visit Diagnoses Diagnosis Bleeding in early (HHS/HCC)- Primary Unspecified hemorrhage in early , unspecified as to episode of care documented in this encounter Additional Health Concerns Assessment Noted Time PHQ-9 Depression Total Score: 16 10/ 022 10:37 AM CDT documented as of this encounter Care Teams Telephone Sales Agent Relationship Specialty Start Date End Date La Nena Ferro, IT INFRASTRUCTURE CONSULTANT-BC PCP - General Nurse Practitioner Family 06/20/22 3 documented as of this encounter
--- OUTSIDE RECORDS SUMMARY | 2024-03-15 14:35 | XMS_ITS | Encounter Summary ---
Author Organization [facility] Address [address] [place] [address]. [place], [place] [id number] [place], [place] [id number] Care Team Providers Care Bridge Welder Name Role Phone Shana Easton MD Primary Care Provider [phone] Reason for Visit * Reason Comments Chest Pain Encounter Details Date Type Department Care Team (Late st Contact Info) Description 07/22/2018 10:14 AM CDT - 07/22/2018 2:03 PM CDT Emergency [facility] [place] [address] Titus Jennings PA-C [address] [place], [place] [id number] Chest Pain Discharge Disposition: Home or Self Care (Routine [...] Sign Reading Time Taken Comments Blood Pressure 102/66 07/22/2018 1:00 PM CDT Pulse 59 07/22/2018 1:00 PM CDT Temperature 36.7 ??C (98.1 ??F) 07/22/2018 10:26 AM C DT Respiratory Rate 19 07/22/2018 1:00 PM CDT Oxygen Saturation 98% 07/22/2018 1:00 PM CDT Inhaled Oxygen Concentration - - Weight 45.8 kg (101 lb) 07/22/2018 10:26 AM CDT Height 160 cm (5' 3 ) 07/22/2018 10:26 AM CDT Body Mass Index 17.89 07/22/2018 10:26 AM CDT documented in this encounter Discharge Instructions * Discharge Instructions* Titus Jennings PA-C - 07/22/2018 1:50 PM CDT Follow-up with your primary care provider as directed for recheck. If you are unable to follow-up you may return to the emergency department if you experience persistent or worsening symptoms. If youfail to follow-up you may risk worsening symptoms that could result in organ damage, organ failure,permanent injury/disability and possibly . If you were prescribed pain medication, use cautionwith this as it may induce drowsiness. Do not operate machinery or drive while using pain medications. Take all your medications as directed or as prescribed. [employer] cares very much for your health and safety, and follow up is very important, even if you are feeling well. If you are having difficulty making a follow up appointment or getting access to your follow up appointment, you may return at any time to the emergency department for further assistance and recheck. * Attachments The following attachments cannot be sent through Care Everywhere. * Anxiety Discharge Instructions, Adult ([place]ive[place]) documented in this encounter Medications at Time of Discharge ALPRAZolam 0.25 MG tablet Take 1 tablet (0.25 mg total) by mouth nightly as needed for Sleep. 10 tablet 07/22/2018 08/21/2018 documented as of this encounter ED Notes * Crystal Clark RN - 07/22/2018 1:57 PM CDT Pt seen, treated, and released by ER provider. Crystal Clark RN * Titus Jennings PA-C - 07/22/2018 11:19 AM CDT [place], [place] EMERGENCY DEPARTMENT ENCOUNTER Chief Complaint Chief Complaint Patient presents with ??? 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 She also complains of numbness to her upper extremities and face, CHEEMA, blurry vision, generalized ABD pain with n/d, and constipation. Reports her chest pain symptoms are associated with numbness and tingling. Denies hx DVT/PE, SOB, vomiting, or black/bloody stool. PMHx anxiety, depression, and bipolar. Currently sees a psychiatrist for the past 3 months but declines medications.Recent family loss of her grandfather and aunt in the last 2 weeks. No other complaints at this time. Medical History ALLERGIES: Allergies Allergen Reactions ??? Ciprofloxacin Other (see comment) Pt states I can't breath ??? Levaquin [Levofloxacin] Rash MEDICATIONS: Prior to Admission medications Medication Sig Start Date End Date Taking? Authorizing Provider ALPRAZolam 0.25 MG tablet Take 1 tablet (0.25 mg total) by mouth nightly as needed for Sleep. 07/22/18 08/21/18 Yes Titus Jennings PA-C PAST MEDICAL HISTORY: Past Medical History: Diagnosis Date ??? Asthma ??? Depression ??? History of suicidal ideation ??? PTSD (post-traumatic stress disorder) PAST SURGICAL HISTORY: Past Surgical History: Procedure Laterality Date ??? ADENOIDECTOMY ??? TONSILLECTOMY FAMILY HISTORY: Family History Problem Relation Name Age of Onset ??? Asthma Mother SOCIAL HISTORY: Social History Tobacco Use ??? Smoking status: Never Smoker ??? Smokeless tobacco: Never Used Substance Use Topics ??? Alcohol use: No ??? Drug use: No Review of Systems Review of Systems Constitutional: Negative for chills, diaphoresis, fatigue and fever. HENT: Negative for congestion, ear discharge, ear pain, sinus pressure and sore throat. Eyes: Positive for visual disturbance. Negative for pain and discharge. Respiratory: Negative for cough, chest tightness and shortness of breath. Cardiovascular: Positive for chest pain. Negative for palpitations and leg swelling. Gastrointestinal: Positive for abdominal pain, constipation, diarrhea and nausea. Negative for vomiting. Endocrine: Negative. Genitourinary: Negative for dysuria and frequency. Musculoskeletal: Negative for arthralgias, back pain, myalgias, neck pain and neck stiffness. Skin: Negative for color change and rash. Allergic/Immunologic: Negative. Neurological: Positive for headaches. Negative for numbness. Hematological: Negative for adenopathy. Psychiatric/Behavioral: Negative for confusion. The patient is not nervous/anxious. See HPI for further details. All systems negative except as marked. Physical Exam Filed Vitals: 07/22/18 1026 07/22/18 1115 07/22/18 1200 07/22/18 1300 BP: (!) 121/93 (!) 123/91 111/61 102/66 Pulse: 72 77 64 59 Resp: Temp: 98.1 ??F (36.7 ??C) TempSrc: Oral SpO2: 100% 98% 98% 98% Weight: 45.8 kg (101 lb) Height: 5' 3 (1.6 m) Physical Exam Constitutional: Well developed, No acute distress, Non-toxic appearance. Appears stated age Integument: Warm, Dry, No erythema, No rash. HEENT: Normocephalic, Atraumatic, Conjunctiva normal Neck- Normal range of motion, Supple Back- No tenderness Respiratory: Normal breath sounds, No respiratory distress Cardiovascular: Normal heart rate, Normal rhythm GI: Bowel sounds normal, Soft, No tenderness Musculoskeletal: Good ROM, no deformities noted Neurologic: Alert & oriented x 3, No focal deficits noted. 2+ discrimination upper and lower face within normal limits. Cranial nerves II through XII intact, 5 out of 5 strength upper and lower extremities, sensation intact throughout. 5 out of 5 powerhouse mechanic strength, no ataxia, heel to doran intact, able to ambulate on heels and toes without assistance. DTR 2+ bilat upper/lower extremities and symmetric. Psychiatric: Affect normal, Judgment normal, Mood normal. PSYCH/MENTAL STATUS EXAM Appearance: Well kept Behavior: Calm, good eye contact, in no acute distress Mood: (I feel OK) Affect: ( pleasant ) Mood is (congruent) with affect. Speech: Appropriate rate, quantity and volume Thought process: Linear Thought content: (normal). Denies SI/HI. Cognition: Normal Insight: Good Judgement: Good /pelvic: Deferred Diagnostic Studies / Procedures ELECTROCARDIOGRAMS: Results for orders placed or performed during the hospital encounter of 07/22/18 ECG [address] [address] [place] [address] Test Date: 2018-07-22 Pat Name: DIOGENES GARCIA Department: Room: [facility] Gender: Female Plant Engineering Manager: [facility] : 2000 Requested By: MATILDA KHAN Order Number: [id number] Reading MD: Measurements Intervals Lyles Rate: 76 P: 70 ID: [id number] QRS: 85 QRSD: 79 T: 26 QT: 364 QTc: 410 Interpretive Statements SINUS RHYTHM NONSPECIFIC T-WAVE ABNORMALITY Compared to ECG 04/10/2011 18:14:55 T-wave abnormality now present Interpreted by Dr. Mena: Sinus rhythm, rate of 76. LABORATORY STUDIES: Results for orders placed or performed during the hospital encounter of 07/22/18 CBC W/DIFF AUTOMATED Result Value Ref Range WBC 6.0 4.5 - 13.0 x10'3/uL RBC 5.03 4.20 - 5.40 x10'6/uL HGB 14.0 12.0 - 16.0 G/DL HCT 43.9 38.0 - 48.0 % MCV 87.3 81.0 - 99.0 FL MCH 27.8 27.0 - 31.0 PG MCHC 31.9 (L) 32.0 - 36.0 G/DL RDW 13.1 11.5 - 14.5 % PLT 281 130 - 400 x10'3/uL MPV 10.7 9.3 - 12.2 FL DIFFERENTIAL TYPE AUTOMATED DIFFERENTIAL NEUTROPHILS 52.1 % LYMPHOCYTES 36.7 % MONOCYTES 7.5 % EOSINOPHILS 2.7 % BASOPHILS 0.7 % IMMATURE GRANS 0.3 % ABS. NEUTROPHILS TOTAL 3.15 1.80 - 8.00 x10'3/uL ABS. LYMPHOCYTES 2.21 1.20 - 5.20 x10'3/uL ABS. MONOCYTES 0.45 0.24 - 0.86 x10'3/uL ABS. EOSINOPHILS 0.16 0.04 - 0.36 x10'3/uL ABS. BASOPHILS 0.04 0.01 - 0.08 x10'3/uL ABS. IMMATURE GRANULOCYTES 0.02 0.00 - 0.49 x10'3/uL COMPREHENSIVE METABOLIC PANEL Result Value Ref Range GLUCOSE 103 (H) 70 - 99 MG/DL BUN 9 7 - 18 MG/DL CREATININE 0.72 0.55 - 1.02 MG/DL SODIUM 141 136 - 145 MMOL/L POTASSIUM 3.9 3.5 - 5.1 MMOL/L CHLORIDE 110 (H) 100 - 108 MMOL/L CO2 26.4 21 - 32 MMOL/L CALCIUM 9.7 8.5 - 10.1 MG/DL TOTAL BILIRUBIN 0.4 0.2 - 1.1 MG/DL TOTAL PROTEIN 8.0 6.4 - 8.2 G/DL ALBUMIN 4.7 3.4 - 5.0 G/DL AST 10 (L) 15 - 37 U/L ALT 23 14 - 55 U/L ALK PHOS 70 50 - 136 U/L ANION GAP 8.5 8 - 20 MMOL/L BUN CREATININE RATIO 12.6 6 - 26 A/G RATIO 1.4 1.0 - 2.0 RATIO eGFR Non-Afr. Amer. >90 >90 ML/MIN/1.73 M2 eGFR Afr. Amer. >90 >90 ML/MIN/1.73 M2 TROPONIN, QUANT Result Value Ref Range TROPONIN I <0.015 <0.045 ng/mL. D-DIMER, QUANTITATIVE Result Value Ref Range D-DIMER <150 0 - 230 D DU ng/mL Urinalysis, Auto, Complete Result Value Ref Range Specimen Type URINE CLEAN CATCH COLOR YELLOW TRANSPARENCY CLOUDY Specific [place] (U) 1.018 1.001 - 1.030 U PH 5.0 5.0 - 9.0 LEUKOCYTE ESTERASE MODERATE (A) NEGATIVE NITRITES NEGATIVE NEGATIVE PROTEIN, URINE NEGATIVE <30 MG/DL URINE GLUCOSE NEGATIVE NEGATIVE MG/DL U KETONES NEGATIVE NEGATIVE MG/DL UROBILINOGEN NEGATIVE NEGATIVE MG/DL Urine Bilirubin NEGATIVE NEGATIVE MG/DL BLOOD NEGATIVE NEGATIVE CULTURE & SENSITIVITY INDICATED? SPECIMEN SETUP FOR CULTURE SQUAMOUS EPITHELIALS MANY /LPF MUCUS MODERATE /LPF WBC/HPF 8 (H) <6 /HPF RBC/HPF <1 <6 /HPF POCT urine Result Value Ref Range URINE HCG TEST NEGATIVE NEGATIVE INT CTRL PERFORMED EXPECTED? YES IMAGING STUDIES XR CHEST PA+LAT Final Result by User, [id number] (07/22 1203) 07/22/2018, 11:56 AM. HISTORY: Chest pain. Short of breath. Numbness to the upper extremities onset yesterday. EXAM: PA and lateral images of the chest with correlation to study 04/10/2011. FINDINGS: The lungs are clear of active infiltrates. The heart size and pulmonary vascularity are within normal limits. No pleural effusion. No pneumothorax. Mild scoliosis. IMPRESSION: No active cardiopulmonary disease. Mild scoliosis. Course / Medical Decision Making Plan: Labs, CXR, EKG, single troponin, anxiolysis Rhythm Strip intepretation (by ED provider): Rhythm: 77 Ventricular rate: Normal Pulse Oximeter interpretation: Saturation: 98 Oxygen device: RA Interpretation: Normal Progress: 13:45PM Pt reports symptoms have completely subsided with the Xanax given. Requests to be discharged to home. I have discussed today's findings with the [...] and has verbalized understanding of these instructions. Medications ALPRAZolam (XANAX) tablet 0.25 mg (0.25 mg Oral Given 07/22/18 1227) Clinical Impression Anxiety (Primary) Current Discharge Medication List START taking these medications Details ALPRAZolam 0.25 MG tablet Take 1 tablet (0.25 mg total) by mouth nightly as needed for Sleep. Qty: 10 tablet, Refills: 0 Class: Print Pharmacy: [facility] [id number] [facility] [id number] [facility] (Ph #: [phone]) Disposition: Discharge Follow-Up: Shana Easton MD [address] [address] Go in 1 week FOR RECHECK Iwona Christina, acting as a scribe, am personally taking down the notes in the presence of Dr. Titus Jennings PA-C. Take no action on this note until reviewed and authenticated by the physician. TITUS JENNINGS PA-C 07/22/2018 Titus Jennings PA-C 07/22/18 1350 Cosigned by Asmita Mena MD at 07/22/2018 1:59 PM CDT * uYlia Corral RN - 07/22/2018 10:25 AM CDT Pt states for the last 2 days has had increasing SOB with chest pain. States grandpa 2 months ago and the pt's aunt 1 month ago suddenly * MARA Gupta - 07/22/2018 10:14 AM CDT [place], [place] EMERGENCY DEPARTMENT ENCOUNTER Medical Screening Examination 07/22/18 10:14 AM Chief Complaint : No chief complaint on file. HPI : Diogenes Garcia is a 17-year-old female who presents with chest pain, sob, numbness to bilateral upper ext onset yesterday, constant. Vital Signs: There were no vitals filed for this visit. Physical exam: A brief physical exam was completed to facilitate/expedite patient care. Fortune findings include: Plan: MARA Gupta 07/22/18 1014 MARA Gupta 07/22/18 1017 Cosigned by Asmita Mena MD at 07/22/2018 12:33 PM CDT documented in this encounter Plan of Treatment Not on file documented as of this encounter Procedures Procedure Name Priority Date/Time Associated Diagnosis Comments XR CHEST PA+LAT STAT 07/22/2018 11:58 AM CDT POCT URINE (BACK OFFICE) STAT 07/22/2018 11:20 AM CDT URINALYSIS, AUTO, COMPLETE STAT 07/22/2018 11:11 AM CDT URINE BACTERIA CULTURE Routine 9 11:10 AM CDT ECG 12-LEAD STAT 07/22/2018 10:17 AM CDT COMPREHENSIVE METABOLIC PANEL STAT 07/22/2018 10:17 AM CDT D-DIMER, QUANTITATIVE STAT 07/22/2018 10:17 AM CDT CBC W/DIFF AUTOMATED STAT 07/22/2018 10:17 AM CDT TROPONIN, QUANT STAT 07/22/2018 10:17 AM CDT documented in this encounter Results * XR CHEST PA+LAT (07/22/2018 11:58 AM CDT) Anatomical Region Laterality Modality Chest Radiographic Jaelyn ging 07/22/2018 12:0 0 PM CDT Impressions 07/22/2018 12:02 PM CDT IMPRESSION: No active cardiopulmonary disease. Mild scoliosis. Narrative 07/22/2018 12:02 PM CDT 07/22/2018, 11:56 AM. HISTORY: Chest pain. Short of breath. Numbness to the upper extremities onset yesterday. EXAM: PA and lateral images of the chest with correlation to study 04/10/2011. FINDINGS: The lungs are clear of active infiltrates. The heart size and pulmonary vascularity are within normal limits. No pleural effusion. No pneumothorax. Mild scoliosis. Procedure Note Clark Acosta MD - 07/22/2018 07/22/2018, 11:56 AM. HISTORY: Chest pain. Short of breath. Numbness to the upper extremities onset yesterday. EXAM: PA and lateral images of the chest with correlation to study 04/10/2011. FINDINGS: The lungs are clear of active infiltrates. The heart size and pulmonary vascularity are within normal limits. No pleural effusion. No pneumothorax. Mild scoliosis. IMPRESSION: No active cardiopulmonary disease. Mild scoliosis. Matilda Khan [facility] GENERAL IMAGING Final Res ult * POCT urine (07/22/2018 11:20 AM CDT) URINE HCG TEST NEGATIVE NEGATIVE Internal Control performed as Expected? YES [facility] POINT OF CARE TEST ORDERA BLES Final Result * (ABNORMAL) Urinalysis, Auto, Complete (07/22/2018 11:11 AM CDT) SPECIMEN TYPE URINE CLEAN CATCH 07/22/2018 11:07 AM CDT [facility] COLOR (U) YELLOW 07/22/2018 11:37 AM CDT [facility] TRANSPARENCY CLOUDY 07/22/2018 11:37 AM CDT [facility] SPECIFIC GRAVITY (U) 1.018 1.001 - 1.030 07/22/2018 11:37 AM CDT [facility] U PH 5.0 5.0 - 9.0 07/22/2018 11:37 AM T [facility] LEUKOCYTES (U) MODERATE(A) NEGATIVE 9 11:37 AM CDT [facility] NITRITES NEGATIVE NEGATIVE 07/22/2018 11:37 AM T [facility] PROTEIN (U) NEGATIVE <30 MG/DL 07/22/2018 11:37 AM T [facility] URINE GLUCOSE NEGATIVE NEGATIVE MG/DL 07/22/2018 11:37 AM T [facility] KETONES MG/DL (U) NEGATIVE NEGATIVE MG/DL 07/22/2018 11:37 AM CDT [facility] UROBILINOGEN NEGATIVE NEGATIVE MG/DL 07/22/2018 11:37 AM CDT [facility] BILIRUBIN (U) NEGATIVE NEGATIVE MG/DL 07/22/2018 11:37 AM CDT [facility] BLOOD (U) NEGATIVE NEGATIVE 07/22/2018 11:37 AM CDT [facility] CULTURE & SENSITIVITY INDICATED? SPECIMEN SETUP FOR CULTURE 07/22/2018 11:37 AM CDT [facility] SQUAMOUS EPITHELIALS MANY /LPF 07/22/2018 11:37 AM CDT [facility] MUCUS MODERATE /LPF 07/22/2018 11:37 AM CDT [facility] WBC/HPF 8(H) <6 /HPF 07/22/2018 11:37 AM CDT [facility] RBC/HPF <1 <6 /HPF 07/22/2018 11:37 AM CDT [facility] URINE SPECIMEN OBTAINED BY CLEAN CATCH PROCEDURE / Unknown 07/22/2018 11:11 AM CDT [facility] URINE ORDERABLES Final Re sult [facility] [address] [place] [address], [place] [phone] * CULTURE URINE (07/22/2018 11:10 AM CDT) SPEC DESCRIPTION URINE CLEAN CATCH 07/22/2018 11:38 AM CDT [facility] SPECIAL REQUESTS NO SPECIAL REQUEST 07/22/2018 11:38 AM CDT [facility] CULTURE RESULT POLYMICROBIAL GROWTH CONSISTENT WITH NORMAL GENITAL JANETH. ?? SUSCEPTIBILITIES NOT ROUTINELY PERFORMED. 07/23/2018 12:00 PM CDT [facility] URINE SPECIMEN OBTAINED BY CLEAN CATCH PROCEDURE / Unknown 07/22/2018 11:10 AM CDT 07/22/2018 11:37 AM CDT Titus Jennings PA-C MICROBIOLOGY - GENERAL ORDERA BLES Final Result [facility] [address] [place] [address], * ECG 12 lead (07/22/2018 10:17 AM CDT) 07/22/2018 10:[address] [facility] - 07/23/2018 9:55 PM CDT ?[facility] ? [address] [facility] [place] ? Test Date: ?2018-07-22 Pat Name: ? DIOGENES FORT ?Department: ? Room: ? EXAM16 Gender: ? Female ? Plant Engineering Manager: ?? [facility] : ?2000 ? Requested By: MATILDA KHAN Order Number: [id number] ? Reading : ?? Robert Jamil ? Measurements Intervals ?Lyles ? Rate: ? 76 ? P: ?70 ID: ? [id number] ?QRS: ?85 QRSD: ? 79 ? T: ?26 QT: ? 364 ? QTc: ?410 ? Interpretive Statements SINUS RHYTHM NONSPECIFIC T-WAVE ABNORMALITY Compared to ECG 04/10/2011 18:14:55 T-wave abnormality now present Procedure Note Robert Jamil MD - 07/23/2018 [facility] [address] [place] Test Date: 2018-07-22 Pat Name: DIOGENES GARCIA Department: Room: [id number] Gender: Female Plant Engineering Manager: [facility] : 2000 Requested By: MATILDA KHAN Order Number: [id number] Reading MD: Robert Jamil Measurements Intervals Lyles Rate: 76 P: 70 ID: 142 QRS: 85 QRSD: 79 T: 26 QT: 364 QTc: 410 Interpretive Statements SINUS RHYTHM NONSPECIFIC T-WAVE ABNORMALITY Compared to ECG 04/10/2011 18:14:55 T-wave abnormality now present [facility] ECG ORDERABLES Final Res ult Performing Organization Address City/[facility]/ZIP Co de Phone Number [facility] * TROPONIN, QUANT (07/22/2018 10:17 AM CDT) Pathologist [facility] TROPONIN I <0.015 <0.045 ng/mL. 07/22/2018 11:02 AM CDT [facility] Comment: HIGH DOSES OF BIOTIN MAY INTERFERE WITH THIS TEST RESULT. CORRELATION TO CLINICAL HISTORY AND PRESENTATION RECOMMENDED. 07/22/2018 10:1 7 AM CDT [facility]ilda [facility] Final Res ult Performing Organization Address [facility] Co de Phone Number [facility] [address] [place] [address], [place] [phone] * D-DIMER, QUANTITATIVE (07/22/2018 10:17 AM CDT) D-DIMER <150 0 - 230 D DU ng/mL 07/22/2018 10:58 AM CDT [facility] Comment: TESTING PERFORMED ON [employer] ANALYZER. NOTE: RESULTS OF THIS TEST SHOULD ALWAYS BE INTERPRETED IN CONJUNCTION WITH THE PATIENT'S MEDICAL HISTORY, CLINICAL PRESENTATION AND OTHER FINDINGS. CLINICAL DIAGNOSIS SHOULD NOT BE BASED ON THE RESULT OF D-DIMER ALONE. THE MEASUREMENT OF D-DIMER SHOULD NOT BE USED AN AID IN THE DIAGNOSIS OF VTE IN PATIENTS WITH: THERAPEUTIC DOSE ANTICOAGULANT THERAPY FOR >24HRS, FIBRINOLYTIC THERAPY WITHIN PREVIOUS 7 DAYS, TRAUMA OR SURGERY WITHIN PREVIOUS 4 WEEKS, DISSEMINATED MALIGNANCIES, AORTIC ANEURYSM, SEPSIS, SEVERE INFECTIONS, PNEUMONIA, SEVERE SKIN INFECTIONS, LIVER CIRRHOSIS OR . 07/22/2018 10:1 7 AM CDT [facility] Final Res ult [facility] [address] [place] [address], * (ABNORMAL) COMPREHENSIVE METABOLIC PANEL (07/22/2018 10:17 AM CDT) GLUCOSE 103(H) 70 - 99 MG/DL 07/22/2018 11:02 AM CDT [facility] BUN 9 7 - 18 MG/DL 07/22/2018 11:02 AM CDT [facility] CREATININE S/P/B 0.72 0.55 - 1.02 MG/DL 07/22/2018 11:02 AM CDT [facility] SODIUM S/P/B 141 136 - 145 MMOL/L 07/22/2018 11:02 AM CDT [facility] POTASSIUM S/P/B 3.9 3.5 - 5.1 MMOL/L 07/22/2018 11:02 AM CDT [facility] CHLORIDE S/P/B 110(H) 100 - 108 MMOL/L 07/22/2018 11:02 AM CDT [facility] CO2 26.4 21 - 32 MMOL/L 07/22/2018 11:02 AM CDT [facility] CALCIUM S/P/B 9.7 8.5 - 10.1 MG/DL 07/22/2018 11:02 AM CDT [facility] BILIRUBIN TOTAL S/P/B 0.4 0.2 - 1.1 MG/DL 07/22/2018 11:02 AM CDT [facility] TOTAL PROTEIN S/P/B 8.0 6.4 - 8.2 G/DL 07/22/2018 11:02 AM T [facility] ALBUMIN S/P/B 4.7 3.4 - 5.0 G/DL 07/22/2018 11:02 AM T [facility] AST 10(L) 15 - 37 U/L 07/22/2018 11:02 AM T [facility] ALT 23 14 - 55 U/L 07/22/2018 11:02 AM [facility] ALKALINE PHOSPHATASE S/P/B 70 50 - 136 U/L 07/22/2018 11:02 AM [facility] ANION GAP 8.5 8 - 20 MMOL/L 07/22/2018 11:02 AM [facility] BUN CREATININE RATIO 12.6 6 - 26 07/22/2018 11:02 AM [facility] A/G RATIO 1.4 1.0 - 2.0 RATIO 07/22/2018 11:02 AM [facility] EGFR NON-AFR. AMER. >90 >90 ML/MIN/1.7 3 M2 07/22/2018 11:02 AM [facility] EGFR AFR. AMER. >90 >90 ML/MIN/1.7 3 M2 07/22/2018 11:02 AM [facility] Comment: NOTE: eGFR is not calculated for patients <18 years of age. This is an estimated GFR (CKD EPI) and should not be used for calculating drug doses. 07/22/2018 10:1 7 AM CDT us [facility] Final Res ult [facility] [address] [place] [address], * (ABNORMAL) CBC W/DIFF AUTOMATED (07/22/2018 10:17 AM CDT) [facility] WBC 6.0 4.5 - 13.0 x10'3/uL 07/22/2018 10:36 AM CDT [facility] RBC 5.03 4.20 - 5.40 x10'6/uL 07/22/2018 10:36 AM CDT [facility] HGB 14.0 12.0 - 16.0 G/DL 07/22/2018 10:36 AM CDT [facility] HCT 43.9 38.0 - 48.0 % 07/22/2018 10:36 AM CDT [facility] MCV 87.3 81.0 - 99.0 FL 07/22/2018 10:36 AM CDT [facility] MCH 27.8 27.0 - 31.0 PG 07/22/2018 10:36 AM CDT [facility] MCHC 31.9(L) 32.0 - 36.0 G/DL 07/22/2018 10:36 AM CDT [facility] RDW 13.1 11.5 - 14.5 % 07/22/2018 10:36 AM CDT [facility] PLT 281 130 - 400 x10'3/uL 07/22/2018 10:36 AM CDT [facility] MPV 10.7 9.3 - 12.2 FL 07/22/2018 10:36 AM CDT [facility] DIFFERENTIAL TYPE AUTOMATED DIFFERENTIAL 07/22/2018 10:36 AM CDT [facility] NEUTROPHILS % 52.1 % 07/22/2018 10:36 AM CDT [facility] LYMPHOCYTES % 36.7 % 07/22/2018 10:36 AM CDT [facility] MONOCYTES % 7.5 % 07/22/2018 10:36 AM CDT [facility] EOSINOPHILS 2.7 % 07/22/2018 10:36 AM CDT [facility] BASOPHILS 0.7 % 07/22/2018 10:36 AM CDT [facility] IMMATURE GRANS % 0.3 % 07/23/19 19 10:36 AM CDT [facility] ABS. NEUTROPHILS TOTAL 3.15 1.80 - 8.00 x10'3/uL 07/22/2018 10:36 AM CDT [facility] ABS. LYMPHOCYTES 2.21 1.20 - 5.20 x10'3/uL 07/22/2018 10:36 AM CDT [facility] ABS. MONOCYTES 0.45 0.24 - 0.86 x10'3/uL 07/22/2018 10:36 AM CDT [facility] ABS. EOSINOPHILS 0.16 0.04 - 0.36 x10'3/uL 07/22/2018 10:36 AM CDT [facility] ABS. BASOPHILS 0.04 0.01 - 0.08 x10'3/uL 07/22/2018 10:36 AM CDT [facility] ABS. IMMATURE GRANULOCYTES 0.02 0.00 - 0.49 x10'3/uL 07/22/2018 10:36 AM CDT [facility] 07/22/2018 10:1 7 AM CDT us Matilda Khan [facility] Final Res ult [facility] [address] [place] [address], [place] [phone] documented in this encounter Visit Diagnoses Diagnosis Anxiety- Primary Anxiety state, unspecified documented in this encounter Administered Medications Inactive Administered Medications - up to 3 most recent administrations Medication Order MAR Action Action Date Dose Rate Site ALPRAZolam (XANAX) tablet 0.25 mg 0.25 mg, Oral, Once, 1 dose, On Sat07/22/18 at 1230 Given 07/22/2018 12:27 PM CDT 0.25 mg documented in this encounter Active and Recently Administered Medications Times are shown in CDT. Scheduled Medication Order 07/20/2018 07/21/2018 07/22/2018 ALPRAZolam (XANAX) tablet 0.25 mg (COMPLETED) 0.25 mg, Oral, Once, 1 dose, On Sat07/22/18 at 1230 1227 (Given - Provid er: Crystal Clark RN) documented in this encounter Care Teams Bridge Welder Relationship Specialty Start Date End Date Shana Easton MD PCP - General FAMILY PRACTICE 07/22/18 11/29/21 documented as of this encounter
--- OUTSIDE RECORDS SUMMARY | 2024-03-15 14:35 | XMS_ITS | Encounter Summary ---
Author Organization [facility] Address [address] [place] [address]. [address] [address] Care Team Providers Care Rail Signal Worker Name Role Phone None, Provider Primary Care Provider Jacquelin baker Encounter Details Date Type Department Care Team (Latest Contact Info) Description 01/02/2022 Travel Social History Tobacco Use Types Packs/Day [...] documented as of this encounter Care Teams Rail Signal Worker Relationship Specialty Start Date End Date None, Provider, PCP - General 12/27/21 06/19/22 documented as of this encounter
--- OUTSIDE RECORDS SUMMARY | 2024-03-15 14:35 | XMS_ITS | Encounter Summary ---
Author Organization [facility] Address [address] [place] [address]. [place], [place] [address] [place] [id number] Care Team Providers Care Maintenance Shop Welder Name Role Phone Victoria Tarango-PATRICIA Primary Care Provider Unav ailable Reason for Referral * Imaging (Emergency) - Closed Specialty Diagnoses / Procedures Referred By Dora oconnor Referred To Contact RADIOLOGY Diagnoses Right sided abdominal pain Hematuria, unspecified type Procedures US RETROPERITONEAL COMP Victoria Tarango FNP-BC Referral ID Status Reason Start Date Expiration Date Visits Re quested Visits Authorized [id number] Closed 08/13/2022 08/14/2023 1 1 Reason for Visit * Reason Comments ER F/U [facility] 08/12/22 Encounter Details Date Type Department Care Team (Late st Contact Info) Description 08/13/2022 3:20 PM CDT Office Visit [address] [phone] Victoria Tarango FNP-BC ER F/U ([facility] 08/12/22) Social History Tobacco Use Types Packs/Day Years [...] Sign Reading Time Taken Comments Blood Pressure 98/66 08/13/2022 2:56 PM CDT Pulse 77 08/13/2022 2:56 PM CDT Temperature 37.8 ??C (100.1 ??F) 08/13/2022 2:56 PM C DT Respiratory Rate 18 08/13/2022 2:56 PM CDT Oxygen Saturation 99% 08/13/2022 2:56 PM CDT Inhaled Oxygen Concentration - - Weight 50.5 kg (111 lb 6 oz) 08/13/2022 2:56 PM CDT Height 160 cm (5' 3 ) 08/13/2022 2:56 PM CDT Body Mass Index 19.73 08/13/2022 2:56 PM CDT documented in this encounter Progress Notes * Victoria Tarango, MARA-PATRICIA - 08/13/2022 3:20 PM CDT Reason for Visit: ER F/U ([facility] D/C 08/12/22) History of Present Illness: Pt presents for follow up ER visit 08/12/2022. Pt was having hematuria and right sided lower abdominal pain. Pt is 12w3d . ER was unable to perform U/S to rule out kidney stone but it was suspected. OB doctor is also unable to perform U/S. She was told to follow up with pcp. Pt has history of kidney stones. Has an OB appointment tomorrow concerning possible vaginal bleeding. Pt has had anepisode of diarrhea today. No known fever but temp in office is 100.1. Denies vomiting, headache, nasal drainage or cough. Pt states she did have an right ovarian cyst last week and unsure if one might have ruptured. ROS: Constitutional: Negative. HENT: Negative. Eyes: Negative. Respiratory: Negative. Cardiovascular: Negative. Gastrointestinal: Negative. Genitourinary: see hpi Musculoskeletal: Negative. Skin: Negative. Neurological: Negative. Endo/Heme/Allergies: Negative. Psychiatric/Behavioral: Negative. Medications: Current Outpatient Medications: ??? metoclopramide (REGLAN) 10 MG tablet, Take 1 tablet (10 mg total) by mouth every 6 (six) hours., Disp: , Rfl: ??? VITAMINS 28-0.8 MG tablet, Take 1 tablet by mouth nightly at bedtime. at bedtime, Disp: , Rfl: Allergies Allergen Reactions ??? Ciprofloxacin Other (see [...] no acute distress. Abdomen: Bowel sounds normoactive. Right upper and lower quadrant tender to palpation. Negative CVAtenderness. Skin: Warm, normal. Psychiatric: Normal mood and affect Victoria Tarango APRN Filed Vitals: 08/13/22 1456 BP: 98/66 Pulse: 77 Resp: 18 Temp: 100.1 ??F (37.8 ??C) TempSrc: Skin SpO2: 99% Weight: 50.5 kg (111 lb 6 oz) Height: 5' 3 (1.6 m) Body mass index is 19.73 kg/m??. Assessment and plan: 1. Right sided abdominal pain Possible nephrolithiasis? Will order culture to rule out bacteria. Awaiting results. Pt to follow up with OB tomorrow at scheduled appointment. Worsening symptoms go to ER. - US RETROPERITONEAL COMP; Future - CULTURE URINE; Future 2. Hematuria, unspecified type Urine dipstick shows positive for leukocytes and red blood cells. - US RETROPERITONEAL COMP; Future - URINALYSIS AUTO DIP VICTORIA TARANGO documented in this encounter Plan of Treatment Not on file documented as of this encounter Procedures Procedure Name Priority Date/Time Associated Diagnosis Comments URINALYSIS AUTO DIP Routine 08/13/2022 Hematuria, unspecified type documented in this encounter [...] CT of the abdomen and pelvis, 06/18/2018 ([facility]). Technique: Grayscale and color Doppler images. [...] CT of the abdomen and pelvis, 06/18/2018 ([facility] Technique: Grayscale and color Doppler images. [...] MD, 08/13/2022 4:34 PM us Victoria Tarango ZANJERO-BC ULTRASOUND Final Resul t * CULTURE URINE (08/13/2022 3:18 PM CDT) SPEC DESCRIPTION URINE CLEAN CATCH 08/13/2022 3:26 PM CDT [facility] SPECIAL REQUESTS NO SPECIAL REQUEST 08/13/2022 3:26 PM CDT [facility] CULTURE RESULT NO GROWTH 2 DAYS 08/16/2022 8:[address] [facility] URINE SPECIMEN OBTAINED BY CLEAN CATCH PROCEDURE / Unknown 08/13/2022 3:18 PM CDT 08/13/2022 3:27 PM CDT Victoria Tarango ZANJERO-BC MICROBIOLOGY - GENERAL SEBASTIAN DELGADO Final Result [facility] [address] [place] [address], [place] [phone] [facility] [address] [place] [address], [place] [phone] * (ABNORMAL) URINALYSIS AUTO DIP (08/13/2022) COLOR (U) PALE YELLOW YELLOW [facility] (9401), [facility] TRANSPARENCY CLEAR CLEAR [facility] (9401), [facility] GLUCOSE (U) NEGATIVE NEGATIVE MG/DL [facility] (9401), [facility] BILIRUBIN (U) NEGATIVE NEGATIVE [facility] (9401), [facility] KETONES MG/DL (U) NEGATIVE NEGATIVE MG/DL [facility] (9401), [facility] SPECIFIC GRAVITY (U) 1.015 1.001 - 1.035 [facility] (9401), [facility] BLOOD (U) TRACE (Non Hemolyzed, Intact)(A) NEGATIVE [facility] (9401), [facility] U PH 7.0 5.0 - 9.0 [facility] (9401), [facility] PROTEIN (U) NEGATIVE NEGATIVE mg/dL [facility] (9401), [facility] UROBILINOGEN 0.2 0.2 - 1.0 EU/dL = mg/dL [facility] (9401), [facility] NITRITES NEGATIVE NEGATIVE MG/DL [facility] (9401), [facility] LEUKOCYTES (U) TRACE(A) NEGATIVE [facility]HO LY CROSS [facility] (9401), [facility] URINE SPECIMEN FROM URETHRA / Unknown 08/13/2022 us Victoria SCHROEDER URINE ORDERABLES Final Resu lt [facility] (7937), [facility] [address] [place] [address], documented in this encounter Visit Diagnoses Diagnosis Right sided abdominal pain- Primary Abdominal pain, unspecified site Hematuria, unspecified type Right sided abdominal pain Abdominal pain, unspecified site Hematuria, unspecified type documented in this encounter Additional Health Concerns Assessment Noted Time PHQ-9 Depression Total Score: 16 01/02/ 022 10:37 AM CDT documented as of this encounter Care Teams Maintenance Shop Welder Relationship Specialty Start Date End Date Victoria Tarango FNP-BC PCP - General Nurse Practitioner Family 06/20/22 3 documented as of this encounter
--- OUTSIDE RECORDS SUMMARY | 2024-03-15 14:36 | XMS_ITS | Encounter Summary ---
Author Organization [facility] Address [facility]. [place], [place] [id number] [place], [place] [id number] Care Team Providers Care Medical Doctor Md/Medical Director Name Role Phone Nikita Mares MD Primary Care Provider Zachery Angel MD Primary Care Provider UnavailZachery Charlton MD Primary Care Provider UnavailZachery Charlton MD Primary Care Provider UnavailZachery Charlton MD Primary Care Provider Unavaila ble Encounter Details Date Type Department Care Team (Latest Contact Info) Description 12/18/2012 Abstract [facility] Nikita Mares MD Social History Tobacco Use Types Packs/Day Years Used Date Smoking Tobacco: Never Assessed Comments Unknown Sex and Gender Information Value Date Recorded Sex Assigned at Not on file Legal Sex Female 5:47 PM CDT Gender Identity Not on file Sexual Orientation Not on file documented as of this encounter Plan of Treatment Not on file documented as of this encounter Visit Diagnoses Not on filedocumented in this encounter Care Teams Medical Doctor Md/Medical Director Relationship Specialty Start Date End Date Nikita aMres MD PCP - General 03/13/16 Zachery Ryan MD PCP - General 10/26/15 03/12/16 Zachery Ryan MD PCP - General 10/18/15 10/25/15 Zachery Ryan MD PCP - General 11/09/13 10/17/15 Zachery Ryan MD PCP - General 09/30/12 11/08/13 documented as of this encounter
--- OUTSIDE RECORDS SUMMARY | 2024-03-15 14:36 | XMS_ITS | Encounter Summary ---
Author Organization [facility] Address [facility]. [place], [place] [id number] [place], [place] [id number] Care Team Providers Care Passementerie Worker Name Role Phone Nikita Mares MD Primary Care Provider Zachery Angel MD Primary Care Provider UnavailZachery Charlton MD Primary Care Provider UnavailZachery Charlton MD Primary Care Provider UnavailZachery Charlton MD Primary Care Provider Unavaila Zachery Forrester MD Primary Care Provider Unavaila Zachery Forrester MD Primary Care Provider Unavaila ble Encounter Details Date Type Department Care Team (Latest Contact Info) Description 07/25/2012 Abstract [facility] Social History Tobacco Use Types Packs/Day [...] on filedocumented in this encounter Care Teams Passementerie Worker Relationship Specialty Start Date End Date Nikita Mares MD PCP - General 03/13/16 Zachery Ryan MD PCP - General 10/26/15 03/12/16 Zachery Ryan MD PCP - General 10/18/15 10/25/15 Zachery Ryan MD PCP - General 11/09/13 10/17/15 Zachery Ryan MD PCP - General 09/30/12 11/08/13 Zachery Ryan MD PCP - General 08/29/12 09/29/12 Zachery Ryan MD PCP - General 07/15/12 08/28/12 documented as of this encounter
--- OUTSIDE RECORDS SUMMARY | 2024-03-15 14:36 | XMS_ITS | Encounter Summary ---
Author Organization [facility] Address [address] [place] [address]. [place], [place] [id number] [place] [id number] Care Team Providers Care Weather Reporter Name Role Phone None, Provider Primary Care Provider Unavaila ble Reason for Referral * Imaging (Emergency) - Closed Specialty Diagnoses / Procedures Referred By Dora t Referred To Contact Procedures CT ABD+PEL W IV CON ONLY Rich Pal PA-C [address] [employer] [address] [address] Phone: tel: fax: Referral ID Status Reason Start Date Expiration Date Visits Re quested Visits Authorized [id number] Closed 06/18/2018 07/20/2019 1 1 Reason for Visit * Reason Comments Abdominal Pain Urinary Symptoms Encounter Details Date Type Department Care Team (Late st Contact Info) Description 06/18/2018 12:48 PM CDT - 06/18/2018 5:00 PM CDT Emergency [facility] [place] [address] Rich Pal PA-C [address] [facility] [address] [place] [address] Abdominal Pain; Urinary Symptoms Discharge Disposition: Home or Self [...] Sign Reading Time Taken Comments Blood Pressure 107/67 06/18/2018 4:38 PM CDT Pulse 68 06/18/2018 4:38 PM CDT Temperature 36.7 ??C (98.1 ??F) 06/18/2018 12:43 PM C DT Respiratory Rate 18 06/18/2018 4:38 PM CDT Oxygen Saturation 100% 06/18/2018 2:12 PM CDT Inhaled Oxygen Concentration - - Weight 47.6 kg (105 lb) 06/18/2018 12:43 PM CDT Height 160 cm (5' 3 ) 06/18/2018 12:43 PM CDT Body Mass Index 18.6 06/18/2018 12:43 PM CDT documented in this encounter Discharge Instructions * Discharge Instructions* Rich Pal PA-C - 06/18/2018 4:46 PM CDT You were treated for gonorrhea and chlamydia while in the ED. Use Flagyl as directed for bacterial vaginosis. Do not drink alcohol while taking antibiotics. Avoid sexual intercourse until been retested to confirm no infection. Request additional STD testing including HIV, hepatitis, and syphilis. Follow-up with your primary care provider for further evaluation and return to ED if symptoms change or worsen. * Attachments The following attachments cannot be sent through Care Everywhere. * Vaginal Discharge in Adults (Samoan) * Bacterial Vaginosis Discharge Instructions (Samoan) * Chlamydia and Gonorrhea (Samoan) * STD Prevention (Samoan) documented in this encounter Medications at Time of Discharge fluconazole (DIFLUCAN) 150 MG tablet Take 1 tablet (150 mg total) by mouth once for 1 dose. 1 tablet 06/18/2018 06/18/2018 metroNIDAZOLE 500 MG tablet Take 1 tablet (500 mg total) by mouth 2 (two) times a day for 7 days. 14 tablet 06/18/2018 06/25/2018 sulfamethoxazole- trimethoprim 800-160 MG tablet Take 1 tablet by mouth 2 (two) times daily. 06/16/2018 06/26/2018 documented as of this encounter Progress Notes * BRENDA Manriquez - 06/18/2018 5:00 PM CDT Treated with metronidazole at time of exam, no further action required documented in this encounter ED Notes * Rich Pal PA-C - 06/18/2018 2:07 PM CDT Chief Complaint Chief Complaint Patient presents with ??? Abdominal Pain ??? 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 She was seen here on 06/16 where she was treated for a kidneyinfection with Bactrim, 2 times a day for 10 days. She reports no relief of her symptoms. Also now complains of vaginal discharge and dysuria, with some concern for STD's. Has had an IUD in place for8 months. PMHx depression. Medical History ALLERGIES: Allergies Allergen Reactions ??? Levaquin [Levofloxacin] Rash MEDICATIONS: Prior to Admission medications Medication Sig Start Date End Date Taking? Authorizing Provider fluconazole (DIFLUCAN) 150 MG tablet Take 1 tablet (150 mg total) by mouth once for 1 dose. Yes Rich Pal PA-C metroNIDAZOLE 500 MG tablet Take 1 tablet (500 mg total) by mouth 2 (two) times a day for 7 days. 06/18/18 06/25/18 Yes Rich Pal PA-C sulfamethoxazole-trimethoprim 800-160 MG tablet Take 1 tablet by mouth 2 (two) times daily. Yes Doc Abstract PAST MEDICAL HISTORY: Past Medical History: Diagnosis Date ??? Depression ??? History of suicidal ideation [...] Review of Systems Review of Systems Constitutional: Negative. Respiratory: Negative. Negative for chest tightness. Cardiovascular: Negative. Negative for leg swelling. Gastrointestinal: Positive for abdominal pain. Negative for diarrhea, nausea and vomiting. Genitourinary: Positive for dysuria. Musculoskeletal: Negative. Negative for back pain, neck pain and neck stiffness. Left flank pain. Neurological: Negative. Negative for headaches. Physical Exam Filed Vitals: 06/18/18 1243 06/18/18 1412 06/18/18 1638 BP: 123/83 110/68 107/67 Pulse: 89 89 68 Resp: 16 16 18 Temp: 98.1 ??F (36.7 ??C) TempSrc: Temporal SpO2: 100% 100% Weight: 47.6 kg (105 lb) Height: 5' 3 (1.6 m) Physical Exam Constitutional: She is oriented to person, place, and time. She appears well- developed and well-nourished. No distress. HENT: Nose: Nose normal. Mouth/Throat: Oropharynx is clear and moist. Eyes: EOM are normal. Neck: Normal range of motion. Cardiovascular: Normal rate, regular rhythm and normal heart sounds. Pulmonary/Chest: Effort normal and breath sounds normal. No respiratory distress. She has no wheezes. Abdominal: Soft. Bowel sounds are normal. There is no rebound and no guarding. Genitourinary: Vaginal discharge found. Genitourinary Comments: White vaginal discharge noted on pelvic exam. Cultures obtained and sent tolab. Pelvic exam performed by ER nurse Edwige. No CMT. Musculoskeletal: Normal range of motion. Neurological: She is alert and oriented to person, place, and time. Skin: No rash noted. She is not diaphoretic. Psychiatric: She has a normal mood and affect. Nursing note and vitals reviewed. Diagnostic Studies / Procedures ELECTROCARDIOGRAMS: No results found for this visit on 06/18/18. LABORATORY STUDIES: Results for orders placed or performed during the hospital encounter of 06/18/18 CBC W/DIFF AUTOMATED Result Value Ref Range WBC 7.4 4.5 - 13.0 x10'3/uL RBC 4.34 4.20 - 5.40 x10'6/uL HGB 12.0 12.0 - 16.0 G/DL HCT 38.2 38.0 - 48.0 % MCV 88.0 81.0 - 99.0 FL MCH 27.6 27.0 - 31.0 PG MCHC 31.4 (L) 32.0 - 36.0 G/DL RDW 13.7 11.5 - 14.5 % PLT 246 130 - 400 x10'3/uL MPV 11.1 9.3 - 12.2 FL DIFFERENTIAL TYPE AUTOMATED DIFFERENTIAL NEUTROPHILS 68.2 % LYMPHOCYTES 24.4 % MONOCYTES 5.1 % EOSINOPHILS 1.6 % BASOPHILS 0.4 % IMMATURE GRANS 0.3 (H) 0 % ABS. NEUTROPHILS TOTAL 5.04 1.80 - 8.00 x10'3/uL ABS. LYMPHOCYTES 1.80 1.20 - 5.20 x10'3/uL ABS. MONOCYTES 0.38 0.24 - 0.86 x10'3/uL ABS. EOSINOPHILS 0.12 0.04 - 0.36 x10'3/uL ABS. BASOPHILS 0.03 0.01 - 0.08 x10'3/uL ABS. IMMATURE GRANULOCYTES 0.02 0.00 - 0.03 x10'3/uL COMPREHENSIVE METABOLIC PANEL Result Value Ref Range GLUCOSE 105 (H) 70 - 99 MG/DL BUN 6 (L) 7 - 18 MG/DL CREATININE 0.78 0.55 - 1.02 MG/DL SODIUM 141 136 - 145 MMOL/L POTASSIUM 3.4 (L) 3.5 - 5.1 MMOL/L CHLORIDE 108 100 - 108 MMOL/L CO2 26.1 21 - 32 MMOL/L CALCIUM 8.8 8.5 - 10.1 MG/DL TOTAL BILIRUBIN 0.2 0.2 - 1.1 MG/DL TOTAL PROTEIN 7.1 6.4 - 8.2 G/DL ALBUMIN 4.0 3.4 - 5.0 G/DL AST 11 (L) 15 - 37 U/L ALT 22 14 - 55 U/L ALK PHOS 74 50 - 136 U/L ANION GAP 10.3 8 - 20 MMOL/L BUN CREATININE RATIO 7.7 6 - 26 A/G RATIO 1.3 1.0 - 2.0 RATIO eGFR Non-Afr. Amer. >90 >90 ML/MIN/1.73 M2 eGFR Afr. Amer. >90 >90 ML/MIN/1.73 M2 URINALYSIS WI REFLEX TO CULTURE Result Value Ref Range Specimen Type URINE CLEAN CATCH COLOR YELLOW TRANSPARENCY CLOUDY Specific Wylie (U) 1.024 1.001 - 1.030 U PH 5.0 5.0 - 9.0 LEUKOCYTE ESTERASE NEGATIVE NEGATIVE NITRITES NEGATIVE NEGATIVE PROTEIN, URINE NEGATIVE <30 MG/DL URINE GLUCOSE NEGATIVE NEGATIVE MG/DL U KETONES NEGATIVE NEGATIVE MG/DL UROBILINOGEN NEGATIVE NEGATIVE MG/DL Urine Bilirubin NEGATIVE NEGATIVE MG/DL BLOOD NEGATIVE NEGATIVE CULTURE & SENSITIVITY INDICATED? CULTURE IS NOT INDICATED SQUAMOUS EPITHELIALS MANY /LPF MUCUS MODERATE /LPF WBC/HPF 1 <6 /HPF RBC/HPF <1 <6 /HPF LIPASE Result Value Ref Range LIPASE 72 (L) 73 - 393 UNITS/L POCT urine Result Value Ref Range URINE HCG TEST negative NEGATIVE INT CTRL PERFORMED EXPECTED? HCG [id number] EXP 2019-10-23 CULTURE, GENITAL W/ GRAM STAIN Result Value Ref Range Spec. Description ENDOCERVIX Special Requests: NO SPECIAL REQUEST Gram Stain Result FEW WHITE BLOOD CELLS SEEN Gram Stain Result MODERATE EPITHELIAL CELLS SEEN Gram Stain Result FEW CLUE CELLS SEEN Gram Stain Result MODERATE GRAM VARIABLE COCCO-BACILLUS CONSISTENT WITH BACTERIAL VAGINOSIS Gram Stain Result NO YEAST SEEN Culture Result: PENDING IMAGING STUDIES CT ABD+PEL W IV CON ONLY Final Result by User, [id number] (06/18 1526) EXAMINATION: CT Abdomen and Pelvis with contrast EXAM DATE/TIME: 06/18/2018 2:58 PM REASON FOR EXAM: Abd pain, gastroenteritis or colitis suspected COMPARISON: 06/16/2018 TECHNIQUE: Computed tomography of the abdomen and pelvis was obtained after administration of 100 mL Isovue 370 intravenous contrast. Sagittal and coronal reconstruction. A dose lowering technique was used for this procedure, which may include, but is not limited to, dose reduction technique, automated exposure control, iterative reconstruction, ALARA (As Low As Reasonably Achievable), or Image Gently techniques. FINDINGS: CT ABDOMEN: Visualized portions of the lung bases are unremarkable. The liver is normal in size. No focal intrahepatic lesions are demonstrated. No evidence of cholelithiasis nor gallbladder wall thickening. No biliary duct dilatation. The spleen is at the upper limits of normal to slightly enlarged. No focal splenic lesion. The pancreas and the adrenal glands are unremarkable. The kidneys demonstrate no evidence of significant abnormal striated nephrogram nor perirenal inflammatory stranding or fluid. No hydronephrosis. No evidence of ureteral stone. No focal renal mass lesion is demonstrated. There is no acute inflammatory change, abscess nor ascites. No evidence to suggest appendicitis. The bowel gas pattern suggest mild diffuse ileus. No evidence of mechanical bowel obstruction nor perforation. No evidence of adenopathy. Abdominal aorta and IVC are unremarkable. CT PELVIS: The uterus is retroverted. There is an IUD in normal position within the endometrial canal. There is no significant pelvic mass nor adenopathy. Physiologic ovarian cysts/follicles are present. No acute inflammatory change, abscess nor ascites. =====IMPRESSION:===== 1. No acute inflammatory change, abscess nor ascites. No evidence to suggest appendicitis. 2. Bowel gas pattern suggest mild diffuse ileus. No evidence of mechanical bowel obstruction nor perforation. Course / Medical Decision Making CBC within normal limits. CMP shows potassium of 3.4. Oral potassium ordered. UA shows no signs of infection. negative. CT: =====IMPRESSION:===== ?? 1. No acute inflammatory change, abscess nor ascites. No evidence to suggest appendicitis. 2. Bowel gas pattern suggest mild diffuse ileus. No evidence of mechanical bowel obstruction nor perforation. Patient reports history of chronic constipation but reports she had a bowel movement today. Due to vaginal discharge and concern for STD patient agree with treatment for gonorrhea and chlamydia. Patient will be given Rocephin and azithromycin. Patient will be given prescription for Flagyl and Diflucan. She was educated to avoid sexual intercourse until she is been evaluated by primary care physician and confirm no infection. Patient educated to request additional STD testing including HIV, hepatitis and syphilis. Patient was given discharge instructions and return precautions and had no questions at this time. Clinical Impression Vaginal discharge (Primary) Disposition: Discharge I, Iwona Conrad, acting as a scribe, am personally taking down the notes in the presence of Dr. Eldridge. providers found. Take no action on this note until reviewed and authenticated by the physician. Rich Pal PA-C 06/18/18 1742 Cosigned by Jaylin Connolly MD at 06/18/2018 10:01 PM CDT * Tania Villareal RN - 06/18/2018 12:46 PM CDT Patient was seen in this ED 2 days ago and diagnosed with a kidney infection. Patient was prescribed antibiotics and has been taking them as directed. She reports her symptoms are worsening. She reports worsening lower back and abdominal pain and well as burning with urination. * MARA Lazcano - 06/18/2018 12:40 PM CDT [place], [place] EMERGENCY DEPARTMENT ENCOUNTER Medical Screening Examination 06/18/18 12:47 PM Chief Complaint : Abdominal Pain and Urinary Symptoms HPI : Mariam Carter is a 17-year-old female who presents abdominal pain and nausea. Pt here 2 days ago and treated for kidney infection. Denies any recent fever or vomiting. Vital Signs: Filed Vitals: 06/18/18 1243 BP: 123/83 Pulse: 89 Resp: 16 Temp: 98.1 ??F (36.7 ??C) TempSrc: Temporal SpO2: 100% Weight: 47.6 kg (105 lb) Height: 5' 3 (1.6 m) Physical exam: A brief physical exam was completed to facilitate/expedite patient care. Fortune findings include: Resting in chair. No acute distress noted. No cva tenderness. Pt to right lumbar area. Plan: Labs were ordered to facilitate patient care. MARA Lazcano 06/18/18 1248 Cosigned by Jaylin Connolly MD at 06/18/2018 10:03 PM CDT documented in this encounter Plan of Treatment Not on file documented as of this encounter Procedures Procedure Name Priority Date/Time Associated Diagnosis Comments CULTURE, GENITAL W/ GRAM STAIN STAT 06/18/2018 3:20 PM CDT CHLAMYDIA AND GC RNA TMA STAT 06/18/2018 3:[address] ABD+PEL W CON STAT 06/18/2018 3:04 PM CDT URINALYSIS WI REFLEX TO CULTURE STAT 06/18/2018 1:07 PM CDT COMPREHENSIVE METABOLIC PANEL STAT 06/18/2018 1:06 PM CDT CBC W/DIFF AUTOMATED STAT 06/18/2018 1:06 PM CDT LIPASE STAT 06/18/2018 1:06 PM CDT POCT URINE (BACK OFFICE) STAT 06/18/2018 1:05 PM CDT documented in this encounter Results * CULTURE, GENITAL W/ GRAM STAIN (06/18/2018 3:20 PM CDT) SPEC DESCRIPTION ENDOCERVIX 06/18/2018 3:20 PM CDT [facility] SPECIAL REQUESTS NO SPECIAL REQUEST 06/18/2018 3:20 PM CDT [facility] GRAM STAIN RESULT FEW WHITE BLOOD CELLS SEEN 06/18/2018 4:17 PM CDT [facility] GRAM STAIN RESULT MODERATE EPITHELIAL CELLS SEEN 06/18/2018 4:17 PM CDT [facility] GRAM STAIN RESULT FEW CLUE CELLS SEEN 06/18/2018 4:17 PM CDT [facility] GRAM STAIN RESULT MODERATE GRAM VARIABLE COCCO-BACILLUS CONSISTENT WITH BACTERIAL VAGINOSIS 06/18/2018 4:17 PM CDT [facility] GRAM STAIN RESULT NO YEAST SEEN 06/18/2018 4:17 PM CDT [facility] CULTURE RESULT HEAVY GROWTH OF GARDNERELLA VAGINALIS STANDARDIZED SUSCEPTIBILITIES HAVE NOT BEEN ESTABLISHED FOR THIS ORGANISM. 06/21/2018 7:56 AM CDT [facility] CULTURE RESULT HEAVY GROWTH OF NORMAL JANETH PRESENT 06/21/2018 7:56 AM CDT [facility] SWAB OF ENDOCERVIX / Unknown 06/18/2018 3:20 PM CDT 06/18/2018 3:30 PM CDT Rich Pal PA-C MICROBIOLOGY - GENERAL ORDERABLES Final Result [facility] [address] [place] [address], [place] [phone] * CHLAMYDIA AND GC RNA TMA (06/18/2018 3:20 PM CDT) SPEC DESCRIPTION CERVICAL 06/19/19 19 3:30 PM CDT [facility] CHLAMYDIA RNA TMA NEGATIVE NEGATIVE 06/23/2018 2:20 PM CDT [facility] Comment: A NEGATIVE RESULT DOES NOT PRECLUDE THE PRESENCE OF A CT INFECTION BECAUSE RESULTS ARE DEPENDENT ON ADEQUATE SPECIMEN COLLECTION, ABSENCE OF INHIBITORS, AND SUFFICIENT rRNA TO BE DETECTED. N.GONORRHOEAE RNA TMA NEGATIVE NEGATIVE 06/23/2018 2:20 PM CDT [facility] Comment: A NEGATIVE RESULT DOES NOT PRECLUDE THE PRESENCE OF A GC INFECTION BECAUSE RESULTS ARE DEPENDENT ON ADEQUATE SPECIMEN COLLECTION, ABSENCE OF INHIBITORS, AND SUFFICIENT rRNA TO BE DETECTED. ENDOCERVICAL STRUCTURE / Unknown 06/18/2018 3:20 PM CDT us Rich Pal PA-C MICROBIOLOGY - GENERAL ORDERABLES Final Result [facility] [address] [place] [address], [place] [phone] [facility] [address] [place] [address], * CT ABD+PEL W IV CON ONLY (06/18/2018 3:04 PM CDT) Anatomical Region Laterality Modality Abdomen Computed Tomogra phy 06/18/2018 3:13 PM CDT Impressions 06/18/2018 3:25 PM CDT =====IMPRESSION:===== 1. No acute inflammatory change, abscess nor ascites. No evidence to suggest appendicitis. 2. Bowel gas pattern suggest mild diffuse ileus. No evidence of mechanical bowel obstruction nor perforation. Narrative 06/18/2018 3:25 PM CDT EXAMINATION: CT Abdomen and Pelvis with contrast EXAM DATE/TIME: 06/18/2018 2:58 PM REASON FOR EXAM: ??Abd pain, gastroenteritis or colitis suspected ? COMPARISON: 06/16/2018 TECHNIQUE: Computed tomography of the abdomen and pelvis was obtained after administration of 100 mL Isovue 370 intravenous contrast. Sagittal and coronal reconstruction. A dose lowering technique was used for this procedure, which may include, but is not limited to, dose reduction technique, automated exposure control, iterative reconstruction, ALARA (As Low As Reasonably Achievable), or Image Gently techniques. FINDINGS: CT ABDOMEN: Visualized portions of the lung bases are unremarkable. The liver is normal in size. No focal intrahepatic lesions are demonstrated. No evidence of cholelithiasis nor gallbladder wall thickening. No biliary duct dilatation. The spleen is at the upper limits of normal to slightly enlarged. No focal splenic lesion. The pancreas and the adrenal glands are unremarkable. The kidneys demonstrate no evidence of significant abnormal striated nephrogram nor perirenal inflammatory stranding or fluid. No hydronephrosis. No evidence of ureteral stone. No focal renal mass lesion is demonstrated. There is no acute inflammatory change, abscess nor ascites. No evidence to suggest appendicitis. The bowel gas pattern suggest mild diffuse ileus. No evidence of mechanical bowel obstruction nor perforation. No evidence of adenopathy. Abdominal aorta and IVC are unremarkable. CT PELVIS: The uterus is retroverted. There is an IUD in normal position within the endometrial canal. There is no significant pelvic mass nor adenopathy. Physiologic ovarian cysts/follicles are present. No acute inflammatory change, abscess nor ascites. Procedure Note Tevin Osullivan MD - 06/18/2018 EXAMINATION: CT Abdomen and Pelvis with contrast EXAM DATE/TIME: 06/18/2018 2:58 PM REASON FOR EXAM: Abd pain, gastroenteritis or colitis suspected COMPARISON: 06/16/2018 TECHNIQUE: Computed tomography of the abdomen and pelvis was obtainedafter administration of 100 mL Isovue 370 intravenous contrast. Sagittal and coronal reconstruction. A dose lowering technique was used for this procedure, which mayinclude, but is not limited to, dose reduction technique, automated exposure control, iterative reconstruction, ALARA (As Low As ReasonablyAchievable), or Image Gently techniques. FINDINGS: CT ABDOMEN: Visualized portions of the lung bases are unremarkable. The liver is normal in size. No focal intrahepatic lesions are demonstrated. No evidence of cholelithiasis nor gallbladder wall thickening. No biliary duct dilatation. The spleen is at the upper limits of normal to slightly enlarged. Nofocal splenic lesion. The pancreas and the adrenal glands are unremarkable. The kidneys demonstrate no evidence of significant abnormal striated nephrogram nor perirenal inflammatory stranding or fluid. No hydronephrosis. No evidence of ureteral stone. No focal renal masslesion is demonstrated. There is no acute inflammatory change, abscess nor ascites. No evidenceto suggest appendicitis. The bowel gas pattern suggest mild diffuse ileus.No evidence of mechanical bowel obstruction nor perforation. No evidence of adenopathy. Abdominal aorta and IVC are unremarkable. CT PELVIS: The uterus is retroverted. There is an IUD in normal position within the endometrial canal. There is no significant pelvic mass nor adenopathy. Physiologic ovarian cysts/follicles are present. No acute inflammatory change, abscess nor ascites. =====IMPRESSION:===== 1. No acute inflammatory change, abscess nor ascites. No evidence to suggest appendicitis. 2. Bowel gas pattern suggest mild diffuse ileus. No evidence ofmechanical bowel obstruction nor perforation. Rich Pal PA-C CT Final R esult * URINALYSIS WI REFLEX TO CULTURE (06/18/2018 1:07 PM CDT) SPECIMEN TYPE URINE CLEAN CATCH 06/18/2018 1:05 PM CDT [facility] COLOR (U) YELLOW 06/18/2018 1:38 PM CDT [facility] TRANSPARENCY CLOUDY 06/18/2018 1:38 PM CDT [facility] SPECIFIC GRAVITY (U) 1.024 1.001 - 1.030 06/18/2018 1:38 PM CDT [facility] U PH 5.0 5.0 - 9.0 06/18/2018 1:38 PM CDT [facility] LEUKOCYTES (U) NEGATIVE NEGATIVE 06/18/2018 1:38 PM CDT [facility] NITRITES NEGATIVE NEGATIVE 06/18/2018 1:38 PM CDT [facility] PROTEIN (U) NEGATIVE <30 MG/DL 06/18/2018 1:38 PM CDT [facility] URINE GLUCOSE NEGATIVE NEGATIVE MG/DL 06/18/2018 1:38 PM CDT [facility] KETONES MG/DL (U) NEGATIVE NEGATIVE MG/DL 06/18/2018 1:38 PM CDT [facility] UROBILINOGEN NEGATIVE NEGATIVE MG/DL 06/18/2018 1:38 PM CDT [facility] BILIRUBIN (U) NEGATIVE NEGATIVE MG/DL 06/18/2018 1:38 PM CDT [facility] BLOOD (U) NEGATIVE NEGATIVE 06/18/2018 1:38 PM CDT [facility] CULTURE & SENSITIVITY INDICATED? CULTURE IS NOT INDICATED 06/18/2018 1:38 PM CDT [facility] SQUAMOUS EPITHELIALS MANY /LPF 06/18/2018 1:38 PM CDT [facility] MUCUS MODERATE /LPF 06/18/2018 1:38 PM CDT [facility] WBC/HPF 1 <6 /HPF 06/18/2018 1:38 PM CDT [facility] RBC/HPF <1 <6 /HPF 06/18/2018 1:38 PM CDT [facility] URINE SPECIMEN OBTAINED BY CLEAN CATCH PROCEDURE / Unknown 06/18/2018 1:07 PM CDT Maddy Dc [facility] URINE ORDERABLES Final R esult Performing Organization Address City/[facility]/ZIP Co de Phone Number [facility] [address] [place] [address], [place] [phone] * (ABNORMAL) LIPASE (06/18/2018 1:06 PM CDT) LIPASE 72(L) 73 - 393 UNITS/L 06/18/2018 2:26 PM CDT [facility] 06/18/2018 1:06 PM CDT Maddy Dc [facility] Final Re sult [facility] [address] [place] [address], [place] [phone] * (ABNORMAL) COMPREHENSIVE METABOLIC PANEL (06/18/2018 1:06 PM CDT) GLUCOSE 105(H) 70 - 99 MG/DL 06/18/2018 1:41 PM CDT [facility] BUN 6(L) 7 - 18 MG/DL 06/18/2018 1:41 PM T [facility] CREATININE S/P/B 0.78 0.55 - 1.02 MG/DL 06/18/2018 1:41 PM T [facility] SODIUM S/P/B 141 136 - 145 MMOL/L 06/18/2018 1:41 PM T [facility] POTASSIUM S/P/B 3.4(L) 3.5 - 5.1 MMOL/L 06/18/2018 1:41 PM T [facility] CHLORIDE S/P/B 108 100 - 108 MMOL/L 06/18/2018 1:41 PM T [facility] CO2 26.1 21 - 32 MMOL/L 06/18/2018 1:41 PM T [facility] CALCIUM S/P/B 8.8 8.5 - 10.1 MG/DL 06/18/2018 1:41 PM T [facility] BILIRUBIN TOTAL S/P/B 0.2 0.2 - 1.1 MG/DL 06/18/2018 1:41 PM T [facility] TOTAL PROTEIN S/P/B 7.1 6.4 - 8.2 G/DL 06/18/2018 1:41 PM T [facility] ALBUMIN S/P/B 4.0 3.4 - 5.0 G/DL 06/18/2018 1:41 PM CDT [facility] AST 11(L) 15 - 37 U/L 06/18/2018 1:41 PM T [facility] ALT 22 14 - 55 U/L 06/18/2018 1:41 PM T [facility] ALKALINE PHOSPHATASE S/P/B 74 50 - 136 U/L 06/18/2018 1:41 PM T [facility] [facility] ANION GAP 10.3 8 - 20 MMOL/L 06/18/2018 1:41 PM CDT [facility] BUN CREATININE RATIO 7.7 6 - 26 06/18/2018 1:41 PM CDT [facility] A/G RATIO 1.3 1.0 - 2.0 RATIO 06/18/2018 1:41 PM CDT [facility] EGFR NON-AFR. AMER. >90 >90 ML/MIN/1.7 3 M2 06/18/2018 1:41 PM CDT [facility] EGFR AFR. AMER. >90 >90 ML/MIN/1.7 3 M2 06/18/2018 1:41 PM CDT [facility] Comment: NOTE: eGFR is not calculated for patients <18 years of age. This is an estimated GFR (CKD EPI) and should not be used for calculating drug doses. 06/18/2018 1:06 PM CDT Maddy Dc [facility] Final Re sult [facility] [address] [place] [address], * (ABNORMAL) CBC W/DIFF AUTOMATED (06/18/2018 1:06 PM CDT) WBC 7.4 4.5 - 13.0 x10'3/uL 06/18/2018 1:25 PM CDT [facility] RBC 4.34 4.20 - 5.40 x10'6/uL 06/18/2018 1:25 PM CDT [facility] HGB 12.0 12.0 - 16.0 G/DL 06/18/2018 1:25 PM CDT [facility] HCT 38.2 38.0 - 48.0 % 06/18/2018 1:25 PM CDT [facility] MCV 88.0 81.0 - 99.0 FL 06/18/2018 1:25 PM CDT [facility] MCH 27.6 27.0 - 31.0 PG 06/18/2018 1:25 PM CDT [facility] MCHC 31.4(L) 32.0 - 36.0 G/DL 06/18/2018 1:25 PM CDT [facility] RDW 13.7 11.5 - 14.5 % 06/18/2018 1:25 PM CDT [facility] PLT 246 130 - 400 x10'3/uL 06/18/2018 1:25 PM CDT [facility] MPV 11.1 9.3 - 12.2 FL 06/18/2018 1:25 PM CDT [facility] DIFFERENTIAL TYPE AUTOMATED DIFFERENTIAL 06/18/2018 1:25 PM CDT [facility] NEUTROPHILS % 68.2 % 06/18/2018 1:25 PM CDT [facility] LYMPHOCYTES % 24.4 % 06/18/2018 1:25 PM CDT [facility] MONOCYTES % 5.1 % 06/18/2018 1:25 PM CDT [facility] EOSINOPHILS 1.6 % 06/18/2018 1:25 PM CDT [facility] BASOPHILS 0.4 % 06/18/2018 1:25 PM CDT [facility] IMMATURE GRANS % 0.3(H) 0 % 06/19/19 19 1:25 PM CDT [facility] ABS. NEUTROPHILS TOTAL 5.04 1.80 - 8.00 x10'3/uL 06/18/2018 1:25 PM CDT [facility] ABS. LYMPHOCYTES 1.80 1.20 - 5.20 x10'3/uL 06/18/2018 1:25 PM CDT [facility] ABS. MONOCYTES 0.38 0.24 - 0.86 x10'3/uL 06/18/2018 1:25 PM CDT [facility] ABS. EOSINOPHILS 0.12 0.04 - 0.36 x10'3/uL 06/18/2018 1:25 PM CDT [facility] ABS. BASOPHILS 0.03 0.01 - 0.08 x10'3/uL 06/18/2018 1:25 PM CDT [facility] ABS. IMMATURE GRANULOCYTES 0.02 0.00 - 0.03 x10'3/uL 06/18/2018 1:25 PM CDT [facility] 06/18/2018 1:06 PM CDT [facility] Final Re sult [facility] [address] [place] [address], [place] [phone] * POCT urine (06/18/2018 1:05 PM CDT) URINE HCG TEST negative NEGATIVE Internal Control performed as Expected? HCG [id number] EXP 2019-10-23 Maddy BARCLAYP POINT OF CARE TEST ORDER LUTHER Final Result documented in this encounter Visit Diagnoses Diagnosis Vaginal discharge- Primary Leukorrhea, not specified as infective documented in this encounter Administered Medications Inactive Administered Medications - up to 3 most recent administrations Medication Order MAR Action Action Date Dose Rate Site azithromycin (ZITHROMAX) tablet 1,000 mg 1,000 mg, Oral, Once, 1 dose, On Sat06/18/18 at 1615 Given 06/18/2018 4:31 PM CDT 1,000 mg cefTRIAXone (ROCEPHIN) 250 mg in lidocaine (PF) (XYLOCAINE) 1 % IM only syringe 250 mg, Intramuscular, Once, 1 dose, On Sat06/18/18 at 1615 Given 06/18/2018 4:37 PM CDT 250 mg Right Ventrogluteal iopamidol (ISOVUE-370) 76 % injection 100 mL 100 mL, Intravenous, IMG once as needed, Contrast, 1 dose, Starting on Sat06/18/18 at 1504, Until Sat06/18/18 at 1505 Given 06/18/2018 3:05 PM CDT 100 mLs Left Arm potassium chloride CR (K-TAB) tablet 20 mEq 20 mEq, Oral, Once, 1 dose, On Sat06/18/18 at 1615, Do not break, chew, or crush. Given 06/18/2018 4:31 PM CDT 20 mEq documented in this encounter Active and Recently Administered Medications Times are shown in CDT. Scheduled Medication Order 06/16/2018 06/17/2018 06/18/2018 azithromycin (ZITHROMAX) tablet 1,000 mg (COMPLETED) 1,000 mg, Oral, Once, 1 dose, On Sat06/18/18 at 1615 1631 (Given - Provid er: Anel Smith RN) cefTRIAXone (ROCEPHIN) 250 mg in lidocaine (PF) (XYLOCAINE) 1 % IM only syringe (COMPLETED) 250 mg, Intramuscular, Once, 1 dose, On Sat06/18/18 at 1615 1637 (Given - Provid er: Anel Smith RN) potassium chloride CR (K-TAB) tablet 20 mEq (COMPLETED) 20 mEq, Oral, Once, 1 dose, On Sat06/18/18 at 1615, Do not break, chew, or crush. 1631 (Given - Provid er: Anel Smith RN) PRN Medication Order 06/16/2018 06/17/2018 06/18/2018 iopamidol (ISOVUE-370) 76 % injection 100 mL (COMPLETED) 100 mL, Intravenous, IMG once as needed, Contrast, 1 dose, Starting on Sat06/18/18 at 1504, Until Sat06/18/18 at 1505 1505 (Given - Provid er: Leyla Worthington RTR) documented in this encounter Care Teams Weather Reporter Relationship Specialty Start Date End Date None, Provider, PCP - General 06/16/18 07/21/18 documented as of this encounter
--- OUTSIDE RECORDS SUMMARY | 2024-03-15 14:36 | XMS_ITS | Encounter Summary ---
Author Organization [facility] Address [address] [place] [address]. [place], [place] [id number] [place], [place] [id number] Care Team Providers Care Facilities Maintenance Engineer Name Role Phone Nikita Goodwin MD Primary Care Provider Zachery Angel MD Primary Care Provider Zachery Toth MD Primary Care Provider Zachery Toth MD Primary Care Provider Jacquelin baker Encounter Details Date Type Department Care Team (Latest Contact Info) Description 11/09/2013 Abstract [facility] Zachery Ryan MD [address] [place] [address] Social History Tobacco Use Types Packs/Day Years [...] Date/Time Associated Diagnosis Comments TEST URINE Routine 11/09/2013 4:21 PM CDT documented in this encounter Results * TEST URINE (11/09/2013 4:21 PM CDT) SPECIFIC GRAVITY (U) 1.030 >1.009 [facility] TO EPIC CONVERSION PREG TEST NEG ?? TESTING PERFORMED AT [place], [place] MALICK RAMOS M.D., SOLDERER DIPPER [facility] TO EPIC CONVERSION 11/09/2013 4:2 1 PM CDT 11/09/2013 4:21 PM CDT Narrative [facility] TO EPIC CONVERSION - 11/09/2013 4:22 PM CDT Result Communication: No patient communication needed at this time us Generic Conversion Md GOODWIN URINE ORDERABLES Final Result [facility] TO EPIC CONVERSION documented in this encounter Visit Diagnoses Not on filedocumented in this encounter Care Teams Facilities Maintenance Engineer Relationship Specialty Start Date End Date Nikita Goodwin MD PCP - General 03/13/16 Zachery Ryan MD PCP - General 10/26/15 03/12/16 Zachery Ryan MD PCP - General 10/18/15 10/25/15 Zachery Ryan MD PCP - General 11/09/13 10/17/15 documented as of this encounter
--- OUTSIDE RECORDS SUMMARY | 2024-03-15 14:36 | XMS_ITS | Encounter Summary ---
Author Organization [facility] Address [address] [place] [address]. [place] [address] Care Team Providers Care Rn Clinical Name Role Phone Nikita Mares MD Primary Care Provider Unavailable Zachery Ryan MD Primary Care Provider Unavaila samuel Encounter Details Date Type Department Care Team (Latest Contact Info) Description 10/27/2015 Abstract [facility] Nikita Mares MD Social History [...] on filedocumented in this encounter Care Teams Rn Clinical Relationship Specialty Start Date End Date Nikita Mares MD PCP - General 03/13/16 Zachery Ryan MD PCP - General 10/26/15 03/12/16 documented as of this encounter
--- OUTSIDE RECORDS SUMMARY | 2024-03-15 14:36 | XMS_ITS | Encounter Summary ---
Author Organization [facility] Address [address] [place] [address]. [place], [place] [id number] [place] [address] Care Team Providers Care Small Order Cutter Name Role Phone Nikita Mares MD Primary Care Provider Unavailable Zachery Ryan MD Primary Care Provider Unavaila Zachery Forrester MD Primary Care Provider UnavailZachery Charlton MD Primary Care Provider Unavaila ble Zachery Ryan MD Primary Care Provider Unavaila Zachery Forrester MD Primary Care Provider Unavaila ble Encounter Details Date Type Department Care Team (Late st Contact Info) Description 08/29/2012 Abstract [facility] [address] Zachery Ryan MD Social History Tobacco Use Types Packs/Day [...] as of this encounter Visit Diagnoses Diagnosis Fever due to unspecified condition documented in this encounter Care Teams Small Order Cutter Relationship Specialty Start Date End Date Nikita Mares MD PCP - General 03/13/16 Zachery Ryan MD PCP - General 10/26/15 03/12/16 Zachery Ryan MD PCP - General 10/18/15 10/25/15 Zachery Ryan MD PCP - General 11/09/13 10/17/15 Zachery Ryan MD PCP - General 09/30/12 11/08/13 Zachery Ryan MD PCP - General 08/29/12 09/29/12 documented as of this encounter
--- OUTSIDE RECORDS SUMMARY | 2024-03-15 14:36 | XMS_ITS | Encounter Summary ---
Author Organization [facility] Address [address] [place] [address]. [place], [place] [id number] [place] [address] Care Team Providers Care Cement Truck Driver Name Role Phone Nikita Mares MD Primary Care Provider Zachery Angel MD Primary Care Provider Zachery Toth MD Primary Care Provider Zachery Toth MD Primary Care Provider Zachery Toth MD Primary Care Provider UnavailZachery Charlton MD Primary Care Provider Unavaila samuel Encounter Details Date Type Department Care Team (Late st Contact Info) Description 08/29/[address] [facility] Family Medicine - [place] [address] [place] [id number] Zachery Ryan MD [address] [place] [address] Social History Tobacco Use Types Packs/Day Years Used Date Smoking Tobacco: Never Assessed Comments Unknown Sex and Gender Information Value Date Recorded Sex Assigned at Not on file Legal Sex Female 5:47 PM CDT Gender Identity Not on file Sexual Orientation Not on file documented as of this encounter Last Filed Vital Signs Vital Sign Reading Time Taken Comments Blood Pressure 100/60 08/29/2012 1:14 PM CDT Pulse 70 08/29/2012 1:14 PM CDT Temperature - - Respiratory Rate - - Oxygen Saturation - - Inhaled Oxygen Concentration - - Weight 44.9 kg (99 lb) 08/29/2012 1:14 PM CDT Height 158.8 cm (5' 2.5 ) 08/29/2012 1:14 PM CDT Body Mass Index 17.82 08/29/2012 1:14 PM CDT Body Mass Index Percentile 28.77% 08/29/2012 1:1 4 PM CDT Growth Chart: [facility] (Girls, 2- 20 Years) documented in this encounter Progress Notes * Generic Conversion MD Suzan - 08/29/2012 1:15 PM CDT Reason For Visit Reason For Visit: Acute Visit Chief Complaint 1. Nasal Symptoms 2. Ear Pain 3. Fever, > 36 months Chief Complaint Free Text: fever History of Present Illness HPI Free Text: Fever: Several days of fever, maximum of 103.1 F improved with ibuprofen. sore throat and mother reports some nasal congestion and right ear pain. Review of Systems Focused-Female: See HPI for pertinent positives. Constitutional: fever The patient presents with complaints of headache (headache yesterday). ENT: earache. Respiratory: shortness of breath. mild SOB Gastrointestinal: no vomiting and no diarrhea. Active Problems 1. Asthma 493.90 2. Chronic Pharyngitis Streptococcus 034.0 RECURRENT 3. Depression 311 4. Lump Or Mass In The Right Breast 611.72 5. Seborrheic Dermatitis Of The Scalp 690.18 6. Vision Problems V41.0 WEARS GLASSES. MYOPIA Past Medical History 1. Asthma 493.90 Surgical History Patient indicates no past surgical history. Family History 1. Family history of Asthma V17.5 SISTER, MATERNAL GRANDMOTHER Social History ?? Living With Parents ?? Never A Smoker ?? Never Drank Alcohol Current Meds 1. Ketoconazole 2 % External Cream; APPLY A THIN LAYER TO AFFECTED AREA(S) TWICE DAILY; Therapy: 10Jul2012 to (Evaluate:[id number]) Requested for: 10Jul2012; Last Rx:10Jul2012 Ordered; For: Seborrheic Dermatitis Of The Scalp (690.18); Rx By: Zachery Ryan; Dispense: 15 Days ; #:1 X 30 GM Tube; Refill: 1; Verified Transmission to [facility] [address] 2. TEGretol 200 MG Oral Tablet; TAKE 1 TABLET TWICE DAILY; Therapy: (Recorded:29Aug2012) to Recorded; For: Depression (311); Dispense: 0 Days ; #: Sufficient Tablet; Refill: 0; Record; Last Updated By: Zachery Ryan Allergies 1. No Known Drug Allergies No Known Drug Allergies Vitals Vital Signs [Data Includes: Current Encounter] [id number] 01:14PM Temperature 98 F Heart Rate 70 Respiration 14 Systolic 100 Diastolic 60 BMI Calculated 17.76 BSA Calculated 1.43 Height 5 ft 2.5 in Weight 99 lb Physical Exam Constitutional - General appearance: No acute distress, well appearing and well nourished. Head and Face - Head and face: Normocephalic, atraumatic. Palpation of the face and sinuses: Normal, no sinus tenderness. Ears, Nose, Mouth, and Throat - External inspection of ears and nose: Normal without deformities ordischarge. Otoscopic examination: Tympanic membranes monzon, translucent with good bony landmarks andlight reflex. Canals patent without erythema. Nasal mucosa, septum, and turbinates: Abnormal. Mild congestion. Oropharynx: Abnormal. No tonsils but exudate versus thick yellowish post nasal drip in posterior oropharynx. Pulmonary - Respiratory effort: Normal respiratory rate and rhythm, no increased work of breathing.Auscultation of lungs: Clear bilaterally. Cardiovascular - Auscultation of heart: Regular rate and rhythm, normal S1 and S2, no murmur. Abdomen - Abdomen: Normal bowel sounds, soft, non-tender, no masses. Psychiatric - Orientation to person, place, and time: Normal. Slightly different personality - lessfocused (very mild). Results/Data 29 Aug 2012 2:03 PM Rapid Strep Group A Ag Screen Rapid Group A Strep Screen NEG TESTING PERFORMED AT [place], [place] MALICK RAMOS M.D., SHUTTLE DRIVER Specimen Type THROAT Assessment 1. Fever (Symptom) 780.60 2. Sore Throat 462 Plan 1. Amoxicillin 500 MG Oral Tablet; TAKE 1 TABLET 3 TIMES DAILY UNTIL GONE; Therapy: 29Aug2012 to (Evaluate:12Sep2012) Requested for: 29Aug2012; Last Rx:29Aug2012; Edited Ordered; For: Sore Throat (462); Rx By: Zachery Ryan; Dispense: 14 Days ; #:42 Tablet; Refill: 0; [facility] [id number] Rapid Strep Group A Ag Screen Status: Resulted - Requires Verification Done: 25Mar2023 12:00AM Ordered Stat; For: Fever (Symptom) (780.60); Ordered By: Zachery Ryan Due: 29Aug2012 Discussion/Summary Discussion Summary Free Text: Sinusitis: amoxil BID. rapid strep negative. monitor for now. Breast mass:instructed mother to follow up with surgery, to consider bx. she acknowledged. Signatures Electronically signed by : Zachery Ryan M.D.; Aug 29 2012 4:56PM (Author) TRAMMER documented in this encounter Plan of Treatment Not on file documented as of this encounter Procedures Procedure Name Priority Date/Time Associated Diagnosis Comments STREP A RAPID Routine 08/29/2012 2:03 PM CDT documented in this encounter Results * STREP A RAPID (08/29/2012 2:03 PM CDT) RAPID STREP TEST NEG ?? TESTING PERFORMED AT [place], [place] MALICK RAMOS M.D., SHUTTLE DRIVER NEG [facility] TO EPIC CONVERSION SPECIMEN TYPE THROAT [facility] UP TO EPIC CONVERSION 08/29/2012 2:03 PM CDT 08/29/2012 2:03 PM CDT Narrative [facility] TO EPIC CONVERSION - 08/29/2012 2:09 PM CDT Result Communication: No patient communication needed at this time Nikita Bueno Md, MD MICROBIOLOGY - GENERAL ORDERABLES Final Result [facility] TO EPIC CONVERSION documented in this encounter Visit Diagnoses Not on filedocumented in this encounter Care Teams Cement Truck Driver Relationship Specialty Start Date End Date Nikita [...]
--- OUTSIDE RECORDS SUMMARY | 2024-03-15 14:36 | XMS_ITS | Encounter Summary ---
Author Organization [facility] Address [address] [place] [address]. [place], [place] [id number] [place], [place] [id number] Care Team Providers Care Curing Press Operator Name Role Phone None, Provider Primary Care Provider Unavaila ble Reason for Referral * Imaging (Emergency) - Closed Specialty Diagnoses / Procedures Referred By Dora t Referred To Contact Procedures CT ABD+PEL W IV CON ONLY Christine Sofia TICKET SCHEDULER Phone: tel: fax: Referral ID Status Reason Start Date Expiration Date Visits Re quested Visits Authorized [id number] Closed 06/16/2018 07/18/2019 1 1 Reason for Visit * Reason Comments Abdominal Pain Urinary Symptoms Encounter Details Date Type Department Care Team (Late st Contact Info) Description 06/16/2018 5:24 PM CDT - 06/16/2018 9:[address] [facility] [place] [address] Christine Sofia NP [address] [id number] Abdominal Pain; Urinary Symptoms Discharge Disposition: Home [...] Sign Reading Time Taken Comments Blood Pressure 91/54 06/16/2018 9:30 PM CDT Pulse 63 06/16/2018 7:23 PM CDT Temperature 36.5 ??C (97.7 ??F) 06/16/2018 5:21 PM CD T Respiratory Rate 18 06/16/2018 9:30 PM CDT Oxygen Saturation 99% 06/16/2018 9:30 PM CDT Inhaled Oxygen Concentration - - Weight 48.5 kg (107 lb) 06/16/2018 5:21 PM CDT Height 160 cm (5' 3 ) 06/16/2018 5:21 PM CDT Body Mass Index 18.95 06/16/2018 5:21 PM CDT documented in this encounter Discharge Instructions * Attachments The following attachments cannot be sent through Care Everywhere. * Kidney Infection Discharge Instructions (Emirati) documented in this encounter Medications at Time of Discharge ibuprofen 600 MG tablet Take 1 tablet (600 mg total) by mouth every 6 (six) hours as needed. 30 tablet 06/16/2018 06/18/2018 vitamin, low iron, ( VITAMIN WITH IRON) 27-0.8 MG tablet Take 1 tablet by mouth daily. 06/18/2018 sulfamethoxazole- trimethoprim (BACTRIM DS) 800-160 MG tablet Take 1 tablet by mouth 2 (two) times daily for 10 days. 20 tablet 06/16/2018 06/18/2018 sulfamethoxazole- trimethoprim 800-160 MG tablet Take 1 tablet by mouth 2 (two) times daily. 06/16/2018 06/26/2018 documented as of this encounter ED Notes * BRENDA Manriquez - 06/16/2018 7:33 PM CDT Emergency Department Note Chief Complaint Chief Complaint Patient presents with ??? Abdominal Pain ??? Urinary Symptoms History of Present Illness Patient complains of having hard bowel movements. She has had a problem for months, has hemorrhoids. Is to follow-up with GI for possible colon check and surgery on hemorrhoids. Denies any blood in her stool today. States she has no concerns for STDs but has had burning with urination and vaginal discharge, states that sometimes she does get a yeast infection. She has an IUD since the of her baby 8 months ago. Complaining of right side abdominal pain with nausea, did vomit once. Last menstrual period was last week. Medical History ALLERGIES: Allergies Allergen Reactions ??? Levaquin [Levofloxacin] Rash MEDICATIONS: Prior to Admission medications Medication Sig Start Date End Date Taking? Authorizing Provider ibuprofen 600 MG tablet Take 1 tablet (600 mg total) by mouth every 6 (six) hours as needed. 06/16/18 06/26/18 Yes BRENDA Manriquez sulfamethoxazole-trimethoprim (BACTRIM DS) 800-160 MG tablet Take 1 tablet by mouth 2 (two) times daily for 10 days. 06/16/18 06/26/18 Yes BRENDA Manriquez vitamin, low iron, ( VITAMIN WITH IRON) 27-0.8 MG tablet Take 1 tablet by mouth daily. Doc Abstract PAST MEDICAL HISTORY: Past Medical [...] Systems Review of Systems Constitutional: Negative for chills and fever. HENT: Negative for sore throat. Respiratory: Negative for cough and shortness of breath. Cardiovascular: Negative for chest pain. Gastrointestinal: Positive for abdominal pain, constipation, nausea and vomiting. Negative for diarrhea. Genitourinary: Positive for dysuria and vaginal discharge. Negative for difficulty urinating and hematuria. Skin: Negative for rash. Neurological: Negative for light-headedness and headaches. Psychiatric/Behavioral: Negative for decreased concentration. Physical Exam Filed Vitals: 06/16/18 1721 06/16/18 1923 06/16/18 2130 BP: 122/82 99/71 91/54 Pulse: 107 63 Resp: 16 17 18 Temp: 97.7 ??F (36.5 ??C) TempSrc: Oral SpO2: 100% 100% 99% Weight: 48.5 kg (107 lb) Height: 5' 3 (1.6 m) Physical Exam Constitutional: She is oriented to person, place, and time. She appears well- developed and well-nourished. No distress. HENT: Head: Normocephalic. Eyes: Pupils are equal, round, and reactive to light. Neck: Neck supple. Cardiovascular: Normal rate, regular rhythm, normal heart sounds and intact distal pulses. No murmur heard. Pulmonary/Chest: Effort normal and breath sounds normal. Abdominal: Soft. Bowel sounds are normal. There is tenderness. Diffusely tender, bowel sounds are present throughout. Bowel sounds are hyperactive. No bloating. No lesions. Musculoskeletal: She exhibits no edema or tenderness. Neurological: She is alert and oriented to person, place, and time. Skin: Skin is warm and dry. No pallor. Psychiatric: She has a normal mood and affect. Her behavior is normal. Judgment and thought contentnormal. Nursing note and vitals reviewed. Diagnostic Studies / Procedures ELECTROCARDIOGRAMS: No results found for this visit on 06/16/18. LABORATORY STUDIES: Results for orders placed or performed during the hospital encounter of 06/16/18 CBC W/DIFF AUTOMATED Result Value Ref Range WBC 7.8 4.5 - 13.0 x10'3/uL RBC 4.47 4.20 - 5.40 x10'6/uL HGB 12.3 12.0 - 16.0 G/DL HCT 39.2 38.0 - 48.0 % MCV 87.7 81.0 - 99.0 FL MCH 27.5 27.0 - 31.0 PG MCHC 31.4 (L) 32.0 - 36.0 G/DL RDW 13.5 11.5 - 14.5 % PLT 276 130 - 400 x10'3/uL MPV 10.9 9.3 - 12.2 FL DIFFERENTIAL TYPE AUTOMATED DIFFERENTIAL NEUTROPHILS 68.1 % LYMPHOCYTES 23.8 % MONOCYTES 6.1 % EOSINOPHILS 1.3 % BASOPHILS 0.4 % IMMATURE GRANS 0.3 (H) 0 % ABS. NEUTROPHILS TOTAL 5.34 1.80 - 8.00 x10'3/uL ABS. LYMPHOCYTES 1.86 1.20 - 5.20 x10'3/uL ABS. MONOCYTES 0.48 0.24 - 0.86 x10'3/uL ABS. EOSINOPHILS 0.10 0.04 - 0.36 x10'3/uL ABS. BASOPHILS 0.03 0.01 - 0.08 x10'3/uL ABS. IMMATURE GRANULOCYTES 0.02 0.00 - 0.03 x10'3/uL COMPREHENSIVE METABOLIC PANEL Result Value Ref Range GLUCOSE 88 70 - 99 MG/DL BUN 6 (L) 7 - 18 MG/DL CREATININE 0.55 0.55 - 1.02 MG/DL SODIUM 140 136 - 145 MMOL/L POTASSIUM 4.1 3.5 - 5.1 MMOL/L CHLORIDE 107 100 - 108 MMOL/L CO2 27.3 21 - 32 MMOL/L CALCIUM 8.9 8.5 - 10.1 MG/DL TOTAL BILIRUBIN 0.2 0.2 - 1.1 MG/DL TOTAL PROTEIN 7.5 6.4 - 8.2 G/DL ALBUMIN 4.1 3.4 - 5.0 G/DL AST 11 (L) 15 - 37 U/L ALT 21 14 - 55 U/L ALK PHOS 82 50 - 136 U/L ANION GAP 9.8 8 - 20 MMOL/L BUN CREATININE RATIO 10.9 6 - 26 A/G RATIO 1.2 1.0 - 2.0 RATIO eGFR Non-Afr. Amer. >90 >90 ML/MIN/1.73 M2 eGFR Afr. Amer. >90 >90 ML/MIN/1.73 M2 LIPASE Result Value Ref Range LIPASE 107 73 - 393 UNITS/L URINALYSIS Result Value Ref Range Specimen Type URINE CLEAN CATCH COLOR STRAW TRANSPARENCY CLEAR Specific [place] (U) 1.005 1.001 - 1.030 U PH 8.0 5.0 - 9.0 LEUKOCYTE ESTERASE NEGATIVE NEGATIVE NITRITES NEGATIVE NEGATIVE PROTEIN, URINE NEGATIVE <30 MG/DL URINE GLUCOSE NEGATIVE NEGATIVE MG/DL U KETONES NEGATIVE NEGATIVE MG/DL UROBILINOGEN NEGATIVE NEGATIVE MG/DL Urine Bilirubin NEGATIVE NEGATIVE MG/DL BLOOD NEGATIVE NEGATIVE CULTURE & SENSITIVITY INDICATED? CULTURE IS NOT INDICATED POCT urine Result Value Ref Range URINE HCG TEST NEGATIVE NEGATIVE INT CTRL PERFORMED EXPECTED? VALID IMAGING STUDIES CT ABD+PEL W IV CON ONLY Final Result by User, [id number] (06/17 2103) EXAM: CT ABD+PEL W CON DATE: 06/16/2018 COMPARISON: None INDICATION: Painful urination and vaginal discharge for 2 weeks. TECHNIQUE: Postcontrast imaging with 100 cc intravenous Isovue-370. FINDINGS: The lung bases are clear. Normal enhancement of the liver, spleen, pancreas, and adrenal glands. The spleen is mildly enlarged measuring about 4.4 x 10.0 x 11.8 cm. No calcified gallstones or pericholecystic inflammation. No bile duct dilation. There are multiple small foci of increased density within the kidneys which appear to be more focal and more dense than the early contrast excretion. Findings may represent nonobstructing stones. The largest is on the right side and measures about 5 mm. There is a subtle striated enhancement pattern of the kidneys, right greater than left. This could be due to stage of enhancement versus possible pyelonephritis. Normal density of the perinephric fat. The ureters are not well seen, but there are no findings for urinary tract obstruction. No bowel obstruction. Moderate stool volume. Normal appendix is best seen on the coronal images. There is some nonspecific free pelvic fluid. Intrauterine device in place. There is a small amount of nonspecific fluid within the uterine cavity. Appearance of the right ovary is most suggestive of multiple follicles. On the left side, there are probably multiple follicles present as well as a physiologic cyst measuring about 1.7 cm. Mild prominent periuterine vasculature could be correlated with any symptomatology of pelvic congestion. Mild S-shaped thoracolumbar scoliosis. IMPRESSION: 1. Mild splenic enlargement. 2. Appearance of the kidneys could represent pyelonephritis. Possible stones as well, although this is more difficult to evaluate for with contrast. 3. IUD in place. 4. Probable multifocal follicular changes in both ovaries with a more dominant cystic structure on the left. A dose lowering technique was used for this procedure, which may include, but is not limited to, dose reduction technique, automated exposure control, iterative reconstruction, ALARA (As Low As Reasonably Achievable), or Image Gently techniques. Interpreted By: Gabriele Brooks MD, 06/16/2018 8:54 PM ED Course / Medical Decision Making ED Course as of Jun 17 104 Mon Jun 16, 2018 1900 CULTURE & SENSITIVITY INDICATED?: CULTURE IS NOT INDICATED [LM] 1900 NITRITES: NEGATIVE [LM] 1900 LEUKOCYTE ESTERASE: NEGATIVE [LM] 1900 URINE HCG TEST: NEGATIVE [LM] 1900 ALT: 21 [LM] 1900 AST: (!) 11 [LM] 1900 ALBUMIN: 4.1 [LM] 1900 BUN: (!) 6 [LM] 1899 CREATININE: 0.55 [LM] 2119 WBC: 7.8 [LM] 2120 CULTURE & SENSITIVITY INDICATED?: CULTURE IS NOT INDICATED [LM] 2120 NITRITES: NEGATIVE [LM] 2120 LEUKOCYTE ESTERASE: NEGATIVE [LM] [address], white count normal and no abnormal findings in urinalysis. Will treat with antibiotic. Discussed treatment return precautions peer [LM] ED Course User Index [LM] BRENDA Manriquez Medications sodium chloride 0.9% bolus infusion SOLN 1,000 mL (0 mLs Intravenous Infusion Stop Time 06/16/182118) ketorolac (TORADOL) injection 30 mg (30 mg Intravenous Given 06/16/182003) iopamidol (ISOVUE-370) 76 % injection 100 mL (100 mLs Intravenous Given 06/16/182023) Clinical Impression Pyelonephritis (Primary) Discharge Medication List as of 06/16/2018 9:27 PM START taking these medications Details ibuprofen 600 MG tablet Take 1 tablet (600 mg total) by mouth every 6 (six) hours as needed., Starting Sat06/16/2018, Until Sat06/26/2018, Eprescribe Class: Eprescribe Pharmacy: [facility] [address] [place] [address] [facility] (Ph #: [phone]) sulfamethoxazole-trimethoprim (BACTRIM DS) 800-160 MG tablet Take 1 tablet by mouth 2 (two) times daily for 10 days., Starting Sat06/16/2018, Until Sat06/26/2018, Eprescribe Class: Eprescribe Pharmacy: [facility] [employer] [address] [place] [address] [facility] (Ph #: [phone]) I have discussed today's findings with the [...] and has verbalized understanding of these instructions. Disposition: Discharge Follow-Up: Fabio Arita MD [address] [id number] As needed BRENDA MANRIQUEZ 06/17/2018 BRENDA Manriquez 06/17/18 0105 Cosigned by Mumtaz Benoit MD at 06/17/2018 10:07 AM CDT * Jaylin Curran NP - 06/16/2018 5:23 PM CDT [place], [place] EMERGENCY DEPARTMENT ENCOUNTER Medical Screening Examination 06/16/18 5:23 PM Chief Complaint : Abdominal Pain and Urinary Symptoms HPI : Mariam Carter is a 17-year-old female who presents with c/o RUQ pain for approx. 3 wks. Pain getting progressively worse over past week. C/o pain to RUQ when taking deep breath. Also havingN/v for 1 wk. Also c/o burning with urination and vaginal discharge. No concern for STDs. States that she has had IUD for 8 months and causes her to have heavy bleeding. Vital Signs: There were no vitals filed for this visit. Physical exam: A brief physical exam was completed to facilitate/expedite patient care. Plan: Necessary labs/imaging/medications ordered to initiate pt care. Jaylin Curran NP 06/16/18 [id number] Cosigned by Mumtaz Benoit MD at 06/17/2018 10:01 AM CDT * Natalie Martínez RN - 06/16/2018 5:22 PM CDT Pt reports RUQ pain, painful urination, and vaginal discharge x 2 weeks. Pt reports having frequentUTIs, also states she had an IUD placed 7 months ago and has continuous spotting since. Denies hx of gallbladder disorders but states they do run in the family. documented in this encounter Plan of Treatment Not on file documented as of this encounter Procedures Procedure Name Priority Date/Time Associated Diagnosis Comments CT ABD+PEL W CON STAT 06/16/2018 8:23 PM CDT COMPREHENSIVE METABOLIC PANEL STAT 06/16/2018 5:45 PM CDT CBC W/DIFF AUTOMATED STAT 06/16/2018 5:45 PM CDT LIPASE STAT 06/16/2018 5:45 PM CDT POCT URINE (BACK OFFICE) STAT 06/16/2018 5:41 PM CDT URINALYSIS STAT 06/16/2018 5:40 PM CDT documented in this encounter Results * CT ABD+PEL W IV CON ONLY (06/16/2018 8:23 PM CDT) Anatomical Region Laterality Modality Abdomen Computed Tomogra phy 06/16/2018 8:54 PM CDT Narrative 06/16/2018 9:04 PM CDT EXAM: CT ABD+PEL W CON DATE: 06/16/2018 COMPARISON: None INDICATION: Painful urination and vaginal discharge for 2 weeks. TECHNIQUE: Postcontrast imaging with 100 cc intravenous Isovue-370. FINDINGS: The lung bases are clear. ??Normal enhancement of the liver, spleen, pancreas, and adrenal glands. ??The spleen is mildly enlarged measuring about 4.4 x 10.0 x 11.8 cm. ??No calcified gallstones or pericholecystic inflammation. ??No bile duct dilation. ??There are multiple small foci of increased density within the kidneys which appear to be more focal and more dense than the early contrast excretion. ??Findings may represent nonobstructing stones. ??The largest is on the right side and measures about 5 mm. ??There is a subtle striated enhancement pattern of the kidneys, right greater than left. ??This could be due to stage of enhancement versus possible pyelonephritis. ??Normal density of the perinephric fat. ??The ureters are not well seen, but there are no findings for urinary tract obstruction. ??No bowel obstruction. ??Moderate stool volume. ??Normal appendix is best seen on the coronal images. There is some nonspecific free pelvic fluid. ??Intrauterine device in place. ??There is a small amount of nonspecific fluid within the uterine cavity. ??Appearance of the right ovary is most suggestive of multiple follicles. ??On the left side, there are probably multiple follicles present as well as a physiologic cyst measuring about 1.7 cm. ??Mild prominent periuterine vasculature could be correlated with any symptomatology of pelvic congestion. ??Mild S-shaped thoracolumbar scoliosis. IMPRESSION: 1. ??Mild splenic enlargement. 2. ??Appearance of the kidneys could represent pyelonephritis. ??Possible stones as well, although this is more difficult to evaluate for with contrast. 3. ??IUD in place. 4. ??Probable multifocal follicular changes in both ovaries with a more dominant cystic structure on the left. A dose lowering technique was used for this procedure, which may include, but is not limited to, dose reduction technique, automated exposure control, iterative reconstruction, ALARA (As Low As Reasonably Achievable), or Image Gently techniques. Interpreted By: Gabriele Brooks MD, 06/16/2018 8:54 PM Procedure Note Gabriele Brooks MD - 06/16/2018 EXAM: CT ABD+PEL W CON DATE: 06/16/2018 COMPARISON: None INDICATION: Painful urination and vaginal discharge for 2 weeks. TECHNIQUE: Postcontrast imaging with 100 cc intravenous Isovue-370. FINDINGS: The lung bases are clear. Normal enhancement of the liver,spleen, pancreas, and adrenal glands. The spleen is mildly enlargedmeasuring about 4.4 x 10.0 x 11.8 cm. No calcified gallstones orpericholecystic inflammation. No bile duct dilation. There are multiplesmall foci of increased density within the kidneys which appear to be morefocal and more dense than the early contrast excretion. Findings mayrepresent nonobstructing stones. The largest is on the right side andmeasures about 5 mm. There is a subtle striated enhancement pattern ofthe kidneys, right greater than left. This could be due to stage ofenhancement versus possible pyelonephritis. Normal density of theperinephric fat. The ureters are not well seen, but there are no findingsfor urinary tract obstruction. No bowel obstruction. Moderate stoolvolume. Normal appendix is best seen on the coronal images. There is some nonspecific free pelvic fluid. Intrauterine device inplace. There is a small amount of nonspecific fluid within the uterinecavity. Appearance of the right ovary is most suggestive of multiplefollicles. On the left side, there are probably multiple folliclespresent as well as a physiologic cyst measuring about 1.7 cm. Mildprominent periuterine vasculature could be correlated with anysymptomatology of pelvic congestion. Mild S-shaped thoracolumbarscoliosis. IMPRESSION: 1. Mild splenic enlargement. 2. Appearance of the kidneys could represent pyelonephritis. Possiblestones as well, although this is more difficult to evaluate for withcontrast. 3. IUD in place. 4. Probable multifocal follicular changes in both ovaries with a moredominant cystic structure on the left. A dose lowering technique was used for this procedure, which may include,but is not limited to, dose reduction technique, automated exposurecontrol, iterative reconstruction, ALARA (As Low As ReasonablyAchievable), or Image Gently techniques. Interpreted By: Gabriele Brooks MD, 06/16/2018 8:54 PM Christine Sofia NP CT Final Result * LIPASE (06/16/2018 5:45 PM CDT) LIPASE 107 73 - 393 UNITS/L 06/16/2018 6:22 PM CDT [facility] 06/16/2018 5:45 PM CDT us Jaylin Mcintosh Bina TICKET SCHEDULER LABORATORY Final Resu lt [facility] [address] [place] [address], [place] [phone] * (ABNORMAL) COMPREHENSIVE METABOLIC PANEL (06/16/2018 5:45 PM CDT) [facility] GLUCOSE 88 70 - 99 MG/DL 06/16/2018 6:[address] [facility] BUN 6(L) 7 - 18 MG/DL 06/16/2018 6:[address] [facility] CREATININE S/P/B 0.55 0.55 - 1.02 MG/DL 06/16/2018 6:[address] [facility] SODIUM S/P/B 140 136 - 145 MMOL/L 06/16/2018 6:[address] [facility] POTASSIUM S/P/B 4.1 3.5 - 5.1 MMOL/L 06/16/2018 6:[address] [facility] CHLORIDE S/P/B 107 100 - 108 MMOL/L 06/16/2018 6:[address] [facility] CO2 27.3 21 - 32 MMOL/L 06/16/2018 6:[address] [facility] CALCIUM S/P/B 8.9 8.5 - 10.1 MG/DL 06/16/2018 6:[address] [facility] BILIRUBIN TOTAL S/P/B 0.2 0.2 - 1.1 MG/DL 06/16/2018 6:[address] [facility] TOTAL PROTEIN S/P/B 7.5 6.4 - 8.2 G/DL 06/16/2018 6:[address] [facility] ALBUMIN S/P/B 4.1 3.4 - 5.0 G/DL 06/16/2018 6:[address] [facility] AST 11(L) 15 - 37 U/L 06/16/2018 6:[address] [facility] ALT 21 14 - 55 U/L 06/16/2018 6:[address] [facility] ALKALINE PHOSPHATASE S/P/B 82 50 - 136 U/L 06/16/2018 6:[address] [facility] ANION GAP 9.8 8 - 20 MMOL/L 06/16/2018 6:[address] [facility] BUN CREATININE RATIO 10.9 6 - 26 06/16/2018 6:[address] [facility] A/G RATIO 1.2 1.0 - 2.0 RATIO 06/16/2018 6:[address] [facility] EGFR NON-AFR. AMER. >90 >90 ML/MIN/1.7 3 M2 06/16/2018 6:[address] [facility] EGFR AFR. AMER. >90 >90 ML/MIN/1.7 3 M2 06/16/2018 6:[address] [facility] Comment: NOTE: eGFR is not calculated for patients <18 years of age. This is an estimated GFR (CKD EPI) and should not be used for calculating drug doses. 06/16/2018 5:45 PM CDT us Jaylin Curran NP LABORATORY Final Resu lt [facility] [address] [place] [address], [place] [phone] * (ABNORMAL) CBC W/DIFF AUTOMATED (06/16/2018 5:45 PM CDT) [facility] Signature WBC 7.8 4.5 - 13.0 x10'3/uL 06/16/2018 5:[address] [facility] RBC 4.47 4.20 - 5.40 x10'6/uL 06/16/2018 5:[address] [facility] HGB 12.3 12.0 - 16.0 G/DL 06/16/2018 5:[address] [facility] HCT 39.2 38.0 - 48.0 % 06/16/2018 5:[address] [facility] MCV 87.7 81.0 - 99.0 FL 06/16/2018 5:[address] [facility] MCH 27.5 27.0 - 31.0 PG 06/16/2018 5:[address] [facility] MCHC 31.4(L) 32.0 - 36.0 G/DL 06/16/2018 5:[address] [facility] RDW 13.5 11.5 - 14.5 % 06/16/2018 5:[address] [facility] PLT 276 130 - 400 x10'3/uL 06/16/2018 5:[address] [facility] MPV 10.9 9.3 - 12.2 FL 06/16/2018 5:[address] [facility] DIFFERENTIAL TYPE AUTOMATED DIFFERENTIAL 06/16/2018 5:[address] [facility] NEUTROPHILS % 68.1 % 06/16/2018 5:[address] [facility] LYMPHOCYTES % 23.8 % 06/16/2018 5:[address] [facility] MONOCYTES % 6.1 % 06/16/2018 5:57 PM CDT [facility] EOSINOPHILS 1.3 % 06/16/2018 5:[address] [facility] BASOPHILS 0.4 % 06/16/2018 5:[address] [facility] IMMATURE GRANS % 0.3(H) 0 % 06/17/19 19 5:[address] [facility] ABS. NEUTROPHILS TOTAL 5.34 1.80 - 8.00 x10'3/uL 06/16/2018 5:[address] [facility] ABS. LYMPHOCYTES 1.86 1.20 - 5.20 x10'3/uL 06/16/2018 5:[address] [facility] ABS. MONOCYTES 0.48 0.24 - 0.86 x10'3/uL 06/16/2018 5:[address] [facility] ABS. EOSINOPHILS 0.10 0.04 - 0.36 x10'3/uL 06/16/2018 5:[address] [facility] ABS. BASOPHILS 0.03 0.01 - 0.08 x10'3/uL 06/16/2018 5:[address] [facility] ABS. IMMATURE GRANULOCYTES 0.02 0.00 - 0.03 x10'3/uL 06/16/2018 5:[address] [facility] 06/16/2018 5:45 PM CDT us Jaylin Curran NP LABORATORY Final Resu lt [facility] [address] [place] [address], [place] [phone] * POCT urine (06/16/2018 5:41 PM CDT) URINE HCG TEST NEGATIVE NEGATIVE Internal Control performed as Expected? VALID Comment:[id number] EXP 10-22 Jaylin Mcintosh Curran TICKET SCHEDULER POINT OF CARE TEST ORDERAB LES Final Result * URINALYSIS (06/16/2018 5:40 PM CDT) SPECIMEN TYPE URINE CLEAN CATCH 06/16/2018 5:[address] [facility] COLOR (U) STRAW 06/16/2018 5:[address] [facility] TRANSPARENCY CLEAR 06/16/2018 5:[address] [facility] SPECIFIC GRAVITY (U) 1.005 1.001 - 1.030 06/16/2018 5:[address] [facility] U PH 8.0 5.0 - 9.0 06/16/2018 5:[address] [facility] LEUKOCYTES (U) NEGATIVE NEGATIVE 06/16/2018 5:[address] [facility] NITRITES NEGATIVE NEGATIVE 06/16/2018 5:[address] [facility] PROTEIN (U) NEGATIVE <30 MG/DL 06/16/2018 5:[address] [facility] [facility] URINE GLUCOSE NEGATIVE NEGATIVE MG/DL 06/16/2018 5:[address] [facility] KETONES MG/DL (U) NEGATIVE NEGATIVE MG/DL 06/16/2018 5:[address] [facility] UROBILINOGEN NEGATIVE NEGATIVE MG/DL 06/16/2018 5:[address] [facility] BILIRUBIN (U) NEGATIVE NEGATIVE MG/DL 06/16/2018 5:[address] [facility] BLOOD (U) NEGATIVE NEGATIVE 06/16/2018 5:[address] [facility] CULTURE & SENSITIVITY INDICATED? CULTURE IS NOT INDICATED 06/16/2018 5:[address] [facility] URINE SPECIMEN OBTAINED BY CLEAN CATCH PROCEDURE / Unknown 06/16/2018 5:40 PM CDT Jaylin Mcintosh Curran TICKET SCHEDULER URINE ORDERABLES Final Res ult [facility] [address] [place] [address], [place] [phone] documented in this encounter Visit Diagnoses Diagnosis Pyelonephritis- Primary Pyelonephritis, unspecified documented in this encounter Administered Medications Inactive Administered Medications - up to 3 most recent administrations Medication Order MAR Action Action Date Dose Rate Site iopamidol (ISOVUE-370) 76 % injection 100 mL 100 mL, Intravenous, IMG once as needed, Contrast, 1 dose, Starting on Sat06/16/18 at 2023, Until Sat06/16/18 at 2023 Given 06/16/2018 8:24 PM CDT 100 mLs Le ft Arm ketorolac (TORADOL) injection 30 mg 30 mg, Intravenous, Once, 1 dose, On Sat06/16/18 at 1945, For IV administration, give over 15 seconds. Given 06/16/2018 8:04 PM CDT 30 mg sodium chloride 0.9% bolus infusion SOLN 1,000 mL 1,000 mL, Intravenous, Administer over 15 Minutes, Once, 1 dose, On Sat06/16/18 at 1945 New Bag 06/16/2018 8:04 PM CDT 1,000 mLs documented in this encounter Active and Recently Administered Medications Times are shown in CDT. Scheduled Medication Order 06/14/2018 06/15/2018 06/16/2018 ketorolac (TORADOL) injection 30 mg (COMPLETED) 30 mg, Intravenous, Once, 1 dose, On Sat06/16/18 at 1945, For IV administration, give over 15 seconds. 2003 (Given - Provid er: Cesilia Devi RN) sodium chloride 0.9% bolus infusion SOLN 1,000 mL (COMPLETED) 1,000 mL, Intravenous, Administer over 15 Minutes, Once, 1 dose, On Sat06/16/18 at 1945 2003 (New Bag - Prov ider: Cesilia Devi RN)[id number] (Infusion Stop Time - Provider: Cesilia P Seipp, RN) PRN Medication Order 06/14/2018 06/15/2018 06/16/2018 iopamidol (ISOVUE-370) 76 % injection 100 mL (COMPLETED) 100 mL, Intravenous, IMG once as needed, Contrast, 1 dose, Starting on Sat06/16/18 at 2023, Until Sat06/16/18 at 2023 2023 (Given - Provid er: Poornima Harris, RTR) documented in this encounter Care Teams Curing Press Operator Relationship Specialty Start Date End Date None, Provider, PCP - General 06/16/18 07/21/18 documented as of this encounter
--- OUTSIDE RECORDS SUMMARY | 2024-03-15 14:36 | XMS_ITS | Encounter Summary ---
Author Organization [facility] Address [address] [place] [address]. [place] [address] Care Team Providers Care Head Librarian Name Role Phone Nikita Mares MD Primary Care Provider Unavailable Encounter Details Date Type Department Care Team (Latest Contact Info) Description 03/15/2016 [facility] Social History Tobacco Use [...] on filedocumented in this encounter Care Teams Head Librarian Relationship Specialty Start Date End Date Nikita Mares MD PCP - General 03/13/16 documented as of this encounter
--- OUTSIDE RECORDS SUMMARY | 2024-03-15 14:36 | XMS_ITS | Encounter Summary ---
Author Organization [facility] Address [facility] [facility]. [place], [place] [id number] [place], [place] [id number] Care Team Providers Care Consulting Engineer Name Role Phone Nikita Mares MD Primary Care Provider Zachery Angel MD Primary Care Provider UnavailZachery Charlton MD Primary Care Provider UnavailZachery Charlton MD Primary Care Provider UnavailZachery Charlton MD Primary Care Provider Unavaila Zachery Forrester MD Primary Care Provider Unavaila Zachery Forrester MD Primary Care Provider Unavaila ble Encounter Details Date Type Department Care Team (Latest Contact Info) Description 07/23/2012 Abstract [facility] Social History Tobacco Use Types [...] on filedocumented in this encounter Care Teams Consulting Engineer Relationship Specialty Start Date End Date [...]
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
--- OUTSIDE RECORDS SUMMARY | 2024-03-15 14:36 | XMS_ITS | Encounter Summary ---
Author Organization [facility] Address [facility]. [place], [place] [address] [place], [place] [id number] Care Team Providers Care Gas Welding Machine Operator Name Role Phone Nikita Mares MD Primary Care Provider Zachery Angel MD Primary Care Provider UnavailZachery Charlton MD Primary Care Provider UnavailZachery Charlton MD Primary Care Provider UnavailZachery Charlton MD Primary Care Provider Unavaila samuel Encounter Details Date Type Department Care Team (Latest Contact Info) Description 05/26/2013 Abstract [facility] Social History Tobacco Use Types [...] on filedocumented in this encounter Care Teams Gas Welding Machine Operator Relationship Specialty Start Date End Date Nikita Mares MD PCP - General 03/13/16 Zachery Ryan MD PCP - General 10/26/15 03/12/16 Zachery Ryan MD PCP - General 10/18/15 10/25/15 Zachery Ryan MD PCP - General 11/09/13 10/17/15 Zachery Ryan MD PCP - General 09/30/12 11/08/13 documented as of this encounter
--- OUTSIDE RECORDS SUMMARY | 2024-03-15 14:36 | XMS_ITS | Encounter Summary ---
Author Organization [facility] Address [address] [place] [address]. [place], [place] [address] [place] [address] Care Team Providers Care Distribution Tech Name Role Phone Nikita Mares MD Primary Care Provider Zachery Angel MD Primary Care Provider Zachery Toth MD Primary Care Provider Zachery Toth MD Primary Care Provider Jacquelin baker Encounter Details Date Type Department Care Team (Late st Contact Info) Description 10/14/[address] [facility] Family Medicine - [place] [address] [place] [address] Zachery Ryan MD [address] [facility] [address] [place] [address] Social History Tobacco Use Types Packs/Day Years Used Date Smoking Tobacco: Never Assessed Comments Unknown Sex and Gender Information Value Date Recorded Sex Assigned at Not on file Legal Sex Female 5:47 PM CDT Gender Identity Not on file Sexual Orientation Not on file documented as of this encounter Last Filed Vital Signs Vital Sign Reading Time Taken Comments Blood Pressure 98/60 10/14/2014 1:09 PM CDT Pulse 87 10/14/2014 1:09 PM CDT Temperature - - Respiratory Rate - - Oxygen Saturation - - Inhaled Oxygen Concentration - - Weight 42.2 kg (93 lb) 10/14/2014 1:09 PM CDT Height 157.5 cm (5' 2 ) 10/14/2014 1:09 PM CDT Body Mass Index 17.01 10/14/2014 1:09 PM CDT Body Mass Index Percentile 6.55% 10/14/2014 1:0 9 PM CDT Growth Chart: CDC (Girls, 2- 20 Years) documented in this encounter Progress Notes * Generic Conversion MD Suzan - 10/14/2014 1:15 PM CDT Reason For Visit Follow-up: Chief Complaint thyroid concern and concern for ocp History of Present Illness HPI Free Text: 1. Concern for thyroid issue: Patient is progressively loosing weight and the patient's psychiatrist just wants to rule the thyroid abnormality out. the patient is eating at least 3 meals a day and is generally the same amount as she usually does. not drinking caffeine. no smoking. she feels occasional rapid heart beat. she chronically feels like she is not hungry. it has been going on for at least 6 months. she has been on her medications for much longer (3 years) but mother reports that her medications are switched at least one a month for the past year as her tegretol did not seem to continue working for her. no abdominal pain, but feels full quickly. she feels bloated all the time. she gets gas a lot and does not routinely vomit or have diarrhea. denies self induced vomiting. no dysuria or hematuria. 2. Desire for OCPs: routine periods every month and heavy. mother reports the patient goes through at least 1 box of pads a period. no dizziness or lightheadedness. especially crabby during her period times. mother wonders whether starting OCPs may be good for her. LMP was just completed today. Review of Systems Constitutional: no fever and no chills. Cardiovascular: no chest pain. Respiratory: no shortness of breath. Gastrointestinal: no abdominal pain The patient presents with complaints of heartburn (occasional reflux). The patient presents with complaints of dizziness (occasional). Active Problems 1. Acute upper respiratory infection (465.9) (J06.9) 2. Asthma (493.90) (J45.909) 3. Congested nose (478.19) (R09.81) 4. Depression (311) (F32.9) 5. Fever (780.60) (R50.9) 6. Headache (784.0) (R51) 7. Mass of right breast (611.72) (N63) 8. Pallor (782.61) (R23.1) 9. Recurrent streptococcal tonsillitis (034.0) (J03.00) ?? RECURRENT 10. Seborrheic dermatitis of scalp (690.18) (L21.8) 11. Sore throat (462) (J02.9) 12. Vision problems (V41.0) (H54.2) ?? WEARS GLASSES. MYOPIA Past Medical History 1. Asthma (493.90) (J45.909) Family History Family History 1. Family history of Asthma (V17.5) ?? SISTER, MATERNAL GRANDMOTHER Social History ?? Living With Parents ?? Never a smoker ?? Never Drank Alcohol Allergies 1. No Known Drug Allergies Vitals Recorded: 14Oct2014 01:09PM Temperature 98.7 F Heart Rate 87 Systolic 98 Diastolic 60 Height 5 ft 2 in 2-20 Stature Percentile 22 % Weight 93 lb 2-20 Weight Percentile 4 % BMI Calculated 17.01 BMI Percentile 7 % BSA Calculated 1.38 Physical Exam Constitutional - General appearance: No acute distress, well appearing and well nourished. Head and Face - Head and face: Normocephalic, atraumatic. Pulmonary - Respiratory effort: Normal respiratory rate and rhythm, no increased work of breathing.Auscultation of lungs: Clear bilaterally. Cardiovascular - Auscultation of heart: Regular rate and rhythm, normal S1 and S2, no murmur. Abdomen - Abdomen: Abnormal. Mild discomfort over the epigastrium to palpation. no rigid guarding. Psychiatric - Orientation to person, place, and time: Normal. Mood and affect: Normal. Assessment 1. Major depression in full remission (296.26) (F32.5) 2. Weight loss, unintentional (783.21) (R63.4) 3. Menorrhagia (626.2) (N92.0) Plan Major depression in full remission, Weight loss, unintentional 1. TSH W Reflex Free T4; Status:Active; Requested for:[id number]; Perform:[facility]; Order Comments:Copy to Dr. ROSY Valenzuela MD, [facility], Psychiastry ( ); Due:[id number];Ordered; For:Major depression in full remission, Weight loss, unintentional; Ordered By:Zachery Ryan; Menorrhagia 2. Loestrin 04/13 (21) 1-20 MG-MCG Oral Tablet (Norethindrone Acet-Ethinyl Est); TAKE 1 TABLET BY MOUTH DAILY FOR 21 DAYS, THEN YOU HAVE 7 TABLET-FREEDAYS AND REPEAT CYCLE Rx By: Zachery Ryan; Dispense: 0 Days ; #:1 X 21 Tablet Disp Pack (5 Disp Packs); Refill: 11; For: Menorrhagia; RENEE = N; Verified Transmission to [facility] 34721; Last Updated By: [employer]; 10/14/2014 1:44:44 PM Discussion/Summary 1. Weight loss with hx of depression: will check the patients thyroid per psychiatry orders. discussed that this also could be some symptoms of gastritis as she does ascribe to some early satiety andbloating. if thyroid normal trial of ranitidine. 2. Menorrhagia: the patient does report some heavy periods and the mother would like for her to consider OCPs. patient just finished period yesterday. counseled to abstain from sex, which the mother agrees with and states she routinely counsels patient on. Patient is in agreement. discussed OCPs are not to prevent STDs (patient already aware as well). start with loestrin and discussed potential s/e and when to notify MD. pend further lab results. Signatures Electronically signed by : Zachery Ryan M.D.; Oct 16 2014 6:01PM BRANCH SALES AND SERVICE REPRESENTATIVE (Author) documented in this encounter Plan of Treatment Not on file documented as of this encounter Visit Diagnoses Not on filedocumented in this encounter Care Teams Distribution Tech Relationship Specialty Start Date End Date Nikita Mares MD PCP - General 03/13/16 Zachery Ryan MD PCP - General 10/26/15 03/12/16 Zachery Ryan MD PCP - General 10/18/15 10/25/15 Zachery Ryan MD PCP - General 11/09/13 10/17/15 documented as of this encounter
--- OUTSIDE RECORDS SUMMARY | 2024-03-15 14:36 | XMS_ITS | Encounter Summary ---
Author Organization [facility] Address [address] [place] [address]. [place], [place] [address] [place] [address] Care Team Providers Care Boring Machine Operator Vertical Name Role Phone Nikita Goodwin MD Primary Care Provider Unavailable Zachery Ryan MD Primary Care Provider Unavailpio baker Encounter Details Date Type Department Care Team (Late st Contact Info) Description 10/26/2015 Abstract [facility] [address] [place], [place] [id number] Rola Rojas, BENCH JEWELER [address] [facility] [address] [place], [place] [id number] Social History Tobacco Use Types Packs/Day Years [...] Procedure Name Priority Date/Time Associated Diagnosis Comments SMEAR, STAIN, WET PREP STAT 10/26/2015 8:25 PM CDT URINALYSIS AUTO DIP STAT 10/26/2015 8 :19 PM CDT documented in this encounter Results * SMEAR, STAIN, WET PREP (10/26/2015 8:25 PM CDT) SPEC DESCRIPTION CERVIX 10/26/2015 8:27 PM CDT [facility] SPECIAL REQUESTS NO SPECIAL REQUEST 10/26/2015 8:27 PM CDT [facility] DIRECT EXAM NO YEAST OR FUNGAL ELEMENTS SEEN 10/26/2015 8:31 PM CDT [facility] DIRECT EXAM NO MOTILE TRICHOMONAS SEEN 10/26/2015 8:31 PM CDT [facility] DIRECT EXAM CLUE CELLS SEEN 10/26/19 16 8:31 PM CDT [facility] DIRECT EXAM TESTING PERFORMED AT [address] ??[id number] MALICK RAMOS M.D., EXCHANGE TELLER 10/26/2015 8:31 PM CDT [facility] SPECIMEN FROM UTERINE CERVIX / Unknown 10/26/2015 8:25 PM CDT 10/26/2015 8:28 PM CDT us Generic Conversion Md GOODWIN MICROBIOLOGY - GENERAL ORDERABLES Final Result [facility] [address] [place] [address], * (ABNORMAL) URINALYSIS AUTO DIP (10/26/2015 8:19 PM CDT) SOURCE (FLUID) URINE CLEAN CATCH 10/26/2015 8:27 PM CDT [facility] COLOR (U) YELLOW 10/26/2015 8:34 PM CDT [facility] Comment: TESTING PERFORMED AT [address] ??[id number] MALICK RAMOS M.D., EXCHANGE TELLER TRANSPARENCY CLOUDY 10/26/2015 8:34 PM CDT [facility] SPECIFIC GRAVITY (U) 1.030 1.001 - 1.030 10/26/2015 8:34 PM CDT [facility] U PH 5.5 5.0 - 9.0 10/26/2015 8:34 PM CDT [facility] LEUKOCYTES (U) NEGATIVE NEGATIVE 10/26/2015 8:34 PM CDT [facility] NITRITES NEGATIVE NEGATIVE 10/26/2015 8:34 PM CDT [facility] PROTEIN (U) NEGATIVE <30 MG/DL 10/26/2015 8:34 PM CDT [facility] URINE GLUCOSE NEGATIVE NEGATIVE MG/DL 10/26/2015 8:34 PM CDT [facility] KETONES MG/DL (U) TRACE(A) NEGATIVE MG/DL 10/26/2015 8:34 PM CDT [facility] UROBILINOGEN NEGATIVE NEGATIVE MG/DL 10/26/2015 8:34 PM CDT [facility] BILIRUBIN (U) NEGATIVE NEGATIVE MG/DL 10/26/2015 8:34 PM CDT [facility] BLOOD (U) MODERATE(A) NEGATIVE 10/26/2015 8:34 PM CDT [facility] CULTURE & SENSITIVITY INDICATED? CULTURE IS NOT INDICATED 10/26/2015 8:34 PM CDT [facility] 10/26/2015 8:19 PM CDT 10/26/2015 8:29 PM CDT us Generic Conversion Md GOODWIN URINE ORDERABLES Final Result [facility] [address] [place] [address], [place] [phone] documented in this encounter Visit Diagnoses Diagnosis Other specified noninflammatory disorders of vagina documented in this encounter Care Teams Boring Machine Operator Vertical Relationship Specialty Start Date End Date Nikita Goodwin MD PCP - General 03/13/16 Zachery Ryan MD PCP - General 10/26/15 03/12/16 documented as of this encounter
--- OUTSIDE RECORDS SUMMARY | 2024-03-15 14:36 | XMS_ITS | Encounter Summary ---
Author Organization [facility] Address [address] [place] [address]. [place] [address] Care Team Providers Care Bladder Blower Name Role Phone Nikita Mares MD Primary Care Provider Unavailable Zachery Ryan MD Primary Care Provider Unavaila ble Zachery Ryan MD Primary Care Provider Unavaila samuel Encounter Details Date Type Department Care Team (Latest Contact Info) Description 10/18/2015 Abstract [facility] Social History Tobacco Use [...] on filedocumented in this encounter Care Teams Bladder Blower Relationship Specialty Start Date End Date Nikita Mares MD PCP - General 03/13/16 Zachery Ryan MD PCP - General 10/26/15 03/12/16 Zachery Ryan MD PCP - General 10/18/15 10/25/15 documented as of this encounter
--- OUTSIDE RECORDS SUMMARY | 2024-03-15 14:36 | XMS_ITS | Encounter Summary ---
Author Organization [facility] Address [address] [place] [address]. [place], [place] [id number] [place], [place] [id number] Care Team Providers Care Shop Tailor Name Role Phone Nikita Mares MD Primary Care Provider Unavailable Zachery Ryan MD Primary Care Provider UnavailZachery Charlton MD Primary Care Provider Unavaila Zachery Forrester MD Primary Care Provider Unavaila samuel Encounter Details Date Type Department Care Team (Late st Contact Info) Description 11/09/2013 Abstract [facility] [place] [address] Zachery Ryan MD Social History Tobacco Use [...] as of this encounter Visit Diagnoses Diagnosis Pallor documented in this encounter Care Teams Shop Tailor Relationship Specialty Start Date End Date Nikita Mares MD PCP - General 03/13/16 Zachery Ryan MD PCP - General 10/26/15 03/12/16 Zachery Ryan MD PCP - General 10/18/15 10/25/15 Zachery Ryan MD PCP - General 11/09/13 10/17/15 documented as of this encounter
--- OUTSIDE RECORDS SUMMARY | 2024-03-15 14:36 | XMS_ITS | Encounter Summary ---
Author Organization [facility] Address [address] [place] [address]. [place], [place] [address] [place] [address] Care Team Providers Care Air Turning Machine Feeder Name Role Phone Nikita Mares MD Primary Care Provider Unavailable Zachery Ryan MD Primary Care Provider UnavailZachery Charlton MD Primary Care Provider Unavaila Zachery Forrester MD Primary Care Provider Unavailpio baker Encounter Details Date Type Department Care Team (Latest Contact Info) Description 11/19/2013 Abstract [facility] Social History Tobacco Use Types [...] on filedocumented in this encounter Care Teams Air Turning Machine Feeder Relationship Specialty Start Date End Date Nikita Mares MD PCP - General 03/13/16 Zachery Ryan MD PCP - General 10/26/15 03/12/16 Zachery Ryna MD PCP - General 10/18/15 10/25/15 Zachery Ryan MD PCP - General 11/09/13 10/17/15 documented as of this encounter
--- OUTSIDE RECORDS SUMMARY | 2024-03-15 14:36 | XMS_ITS | Encounter Summary ---
Author Organization [facility] Address [address] [place] [address]. [place], [place] [phone] [place] [address] Care Team Providers Care Director Client Services Name Role Phone Nikita Mares MD Primary Care Provider Unavailable Encounter Details Date Type Department Care Team (Late st Contact Info) Description 01/26/2017 [place] [address] Nikita Mares MD Social History Tobacco Use [...] on filedocumented in this encounter Care Teams Director Client Services Relationship Specialty Start Date End Date Nikita Mares MD PCP - General 03/13/16 documented as of this encounter
--- OUTSIDE RECORDS SUMMARY | 2024-03-15 14:36 | XMS_ITS | Encounter Summary ---
Author Organization [facility] Address [facility]. [place], [place] [address] [place], [place] [id number] Care Team Providers Care Corrosion Control Technician Name Role Phone Nikita Mares MD Primary Care Provider Zachery Angel MD Primary Care Provider UnavailZachery Charlton MD Primary Care Provider UnavailZachery Charlton MD Primary Care Provider UnavailZachery Charlton MD Primary Care Provider Unavaila ble Encounter Details Date Type Department Care Team (Latest Contact Info) Description 12/08/2012 Abstract [facility] Nikita Marse MD Social History Tobacco Use Types Packs/Day [...] on filedocumented in this encounter Care Teams Corrosion Control Technician Relationship Specialty Start Date End Date Nikita Mares MD PCP - General 03/13/16 Zachery Ryan MD PCP - General 10/26/15 03/12/16 Zachery Ryan MD PCP - General 10/18/15 10/25/15 Zachery Ryan MD PCP - General 11/09/13 10/17/15 Zachery Ryan MD PCP - General 09/30/12 11/08/13 documented as of this encounter
--- OUTSIDE RECORDS SUMMARY | 2024-03-15 14:36 | XMS_ITS | Encounter Summary ---
Author Organization [facility] Address [facility]. [place], [place] [address] [place] [address] Care Team Providers Care Cutlet Maker Pork Name Role Phone Nikita Mares MD Primary Care Provider Zachery Angel MD Primary Care Provider Zachery Toth MD Primary Care Provider UnavailZachery Charlton MD Primary Care Provider Unavaila Zachery Forrester MD Primary Care Provider Unavaila ble Encounter Details Date Type Department Care Team (Late st Contact Info) Description 09/30/2012 Abstract [facility] [address] [place] [address] Tanner Blas MD [address] [address] Social History Tobacco Use Types Packs/Day Years Used Date Smoking Tobacco: Never Assessed Comments Unknown Sex and Gender Information Value Date Recorded Sex Assigned at Not on file Legal Sex Female 5:47 PM CDT Gender Identity Not on file Sexual Orientation Not on file documented as of this encounter Plan of Treatment Not on file documented as of this encounter Visit Diagnoses Diagnosis Closed fracture of middle or proximal phalanx or phalanges of hand documented in this encounter Care Teams Cutlet Maker Pork Relationship Specialty Start Date End Date Nikita Mares MD PCP - General 03/13/16 Zachery Ryan MD PCP - General 10/26/15 03/12/16 Zachery Ryan MD PCP - General 10/18/15 10/25/15 Zachery Ryan MD PCP - General 11/09/13 10/17/15 Zachery Ryan MD PCP - General 09/30/12 11/08/13 documented as of this encounter
--- OUTSIDE RECORDS SUMMARY | 2024-03-15 14:36 | XMS_ITS | Encounter Summary ---
Author Organization [facility] Address [facility]. [place], [place] [address] [place] [address] Care Team Providers Care Renal Medicine Physician Name Role Phone Nikita Mares MD Primary Care Provider Unavailable Zachery Ryan MD Primary Care Provider Zachery Toth MD Primary Care Provider Zachery Toth MD Primary Care Provider Zachery Toth MD Primary Care Provider Zachery Toth MD Primary Care Provider Zachery Toth MD Primary Care Provider Nikita Newman Md, MD Primary Care Provider Unavailable Encounter Details Date Type Department Care Team (Late st Contact Info) Description 07/10/2012 Abstract [facility] Family Medicine - [place] [address] [place] [phone] Zachery Ryan MD [address] [facility] [address] [place] [address] Social History Tobacco Use Types Packs/Day Years Used Date Smoking Tobacco: Never Assessed Comments Unknown Sex and Gender Information Value Date Recorded Sex Assigned at Not on file Legal Sex Female 5:47 PM CDT Gender Identity Not on file Sexual Orientation Not on file documented as of this encounter Last Filed Vital Signs Vital Sign Reading Time Taken Comments Blood Pressure 100/60 07/10/2012 1:10 PM CDT Pulse 70 07/10/2012 1:10 PM CDT Temperature - - Respiratory Rate - - Oxygen Saturation - - Inhaled Oxygen Concentration - - Weight 48.4 kg (106 lb 9.6 oz) 07/10/2012 1:10 P M CDT Height 158.8 cm (5' 2.5 ) 07/10/2012 1:10 PM CDT Body Mass Index 19.19 07/10/2012 1:10 PM CDT Body Mass Index Percentile 50.01% 07/10/2012 1:1 0 PM CDT Growth Chart: [facility] (Girls, 2- 20 Years) documented in this encounter Progress Notes * Generic Conversion MD Suzan - 07/10/2012 1:15 PM CDT Reason For Visit Rash On Face Reason For Visit: Acute Visit History of Present Illness HPI Free Text: 1. Rash: mild rough itchy slightly red rash over right amish for about 1 month without any improvement after triamcinolone cream. it;'s getting worse. 2. Right breast lump: present for 1-2 months, and its non red, nontender, and not worsening. size of about a quarter (per patient). They do report a family hx of breast cancer in dad's sign of family. Review of Systems Focused-Female: Constitutional: no fever and no chills. Respiratory: no shortness of breath. Gastrointestinal: no abdominal pain. Integumentary: skin lesion and skin rash, but no breast swelling, no reddening of the breast, no breast warmth and no breast itching. Active Problems 1. Asthma 493.90 2. Chronic Pharyngitis Streptococcus 034.0 RECURRENT 3. Depression 311 4. Vision Problems V41.0 WEARS GLASSES. MYOPIA Past Medical History 1. Asthma 493.90 Family History 1. Family history of Asthma V17.5 SISTER, MATERNAL GRANDMOTHER Social History ?? Living With Parents ?? Never A Smoker ?? Never Drank Alcohol Current Meds 1. No Reported Medications Recorded; Record; Last Updated By: Enid Kaiser Allergies 1. No Known Drug Allergies No Known Drug Allergies Vitals Vital Signs [Data Includes: Current Encounter] 10Jul2012 01:10PM Temperature 98.8 F Heart Rate 70 Respiration 14 Systolic 100 Diastolic 60 BMI Calculated 19.13 BSA Calculated 1.47 Height 5 ft 2.5 in Weight 106 lb 9.6 oz Physical Exam Constitutional - General appearance: No acute distress, well appearing and well nourished. Head and Face - Head and face: Normocephalic, atraumatic. Chest - Breasts: Normal. Palpation of breasts and axillae: Abnormal. Right breast nodule palpated- 7-8 o'clock 2cm hard mobile tender mass, no overlying skin changes, square in nature. Right normal axillary node. Left normal axillary node. Breast exam documented and performed by Dr Hoyt. Skin - Skin and subcutaneous tissue: Abnormal. Mild slightly delgadillo colored ring with central lightening roughly/grossly 2-3 inches in diameter over the right amish associated with flaking skin. suspect seborrheic dermatitis. Assessment 1. Seborrheic Dermatitis Of The Scalp 690.18 2. Lump Or Mass In The Right Breast 611.72 Plan 1. US Breast Rt Requested for: 10Jul2012 Ordered JERO; For: Lump Or Mass In The Right Breast (611.72); Ordered By: Zachery Ryan Perform: [facility] Radiology Order Comments: right breast 7-8 o'clock 2cm hard mass in 11 year old girl menstruating Due: 11Jul2012 2. Ketoconazole 2 % External Cream; APPLY A THIN LAYER TO AFFECTED AREA(S) TWICE DAILY; Therapy: 10Jul2012 to (Evaluate:[id number]) Requested for: 10Jul2012; Last Rx:10Jul2012; Edited Ordered; For: Seborrheic Dermatitis Of The Scalp (690.18); Rx By: Zachery Ryan; Dispense: 15 Days ; #:1 X 30 GM Tube; Refill: 1; Verified Transmission to [facility] [id number] Discussion/Summary Discussion Summary Free Text: 1. Skin rash: seborrheic dermatitis: ketoconazole to the affected area twice daily for 1-2 weeks along with daily selsen blue shampoo (lather in and rest for 10-15 minutes prior to rinsing off, and followed by conditioner) for 1-1 1/2 weeks for treatment. 2. Breast nodule: exam as above. U/S as soon as possible and then consideration for surgical removal. 3. Menorrhagia: patient declines OCPs. naproxen (1 tab maximum) daily for pain during periods. F/U 2-3 weeks. Signatures Electronically signed by : Zachery Ryan M.D.; Jul 10 2012 1:46PM (Author) OVOLTAIC PANEL INSTALLER documented in this encounter Plan of Treatment Not on file documented as of this encounter Visit Diagnoses Not on filedocumented in this encounter Care Teams Renal Medicine Physician Relationship Specialty Start Date End Date Nikita Mares, PCP - General 03/13/16 Zachery Ryan MD PCP - General 10/26/15 03/12/16 Zachery Ryan MD PCP - General 10/18/15 10/25/15 Zachery Ryan MD PCP - General 11/09/13 10/17/15 Zachery Ryan MD PCP - General 09/30/12 11/08/13 Zachery Ryan MD PCP - General 08/29/12 09/29/12 Zachery Ryan MD PCP - General 07/15/12 08/28/12 Md Generic MD Ximena PCP - General 04/22/11 documented as of this encounter
--- OUTSIDE RECORDS SUMMARY | 2024-03-15 14:36 | XMS_ITS | Encounter Summary ---
Author Organization [facility] Address [address] [place] [address]. [place] [address] Care Team Providers Care Surgical Nurse Name Role Phone Nikita Mares MD Primary Care Provider Unavailable Zachery Ryan MD Primary Care Provider Unavaila samuel Encounter Details Date Type Department Care Team (Latest Contact Info) Description 11/01/2015 Abstract [facility] Medical [facility] Social History Tobacco [...] on filedocumented in this encounter Care Teams Surgical Nurse Relationship Specialty Start Date End Date Nikita Mares MD PCP - General 03/13/16 Zachery Ryan MD PCP - General 10/26/15 03/12/16 documented as of this encounter
--- OUTSIDE RECORDS SUMMARY | 2024-03-15 14:36 | XMS_ITS | Encounter Summary ---
Author Organization [facility] Address [facility]. [place], [place] [address] [place], [place] [phone] Care Team Providers Care Mdm Sr Name Role Phone Nikita Mares MD Primary Care Provider Zachery Angel MD Primary Care Provider UnavailZachery Charlton MD Primary Care Provider UnavailZachery Charlton MD Primary Care Provider UnavailZachery Charlton MD Primary Care Provider Unavaila Zachery Forrester MD Primary Care Provider Unavaila Zachery Forrester MD Primary Care Provider Unavaila ble Encounter Details Date Type Department Care Team (Latest Contact Info) Description 07/30/2012 Abstract [facility] Medical Group Social History Tobacco [...] on filedocumented in this encounter Care Teams Mdm Sr Relationship Specialty Start Date End Date Nikita [...]
--- OUTSIDE RECORDS SUMMARY | 2024-03-15 14:36 | XMS_ITS | Encounter Summary ---
Author Organization [facility] Address [facility]. [place], [place] [address] [place], [place] [phone] Care Team Providers Care Body Specialist Name Role Phone Nikita Mares MD Primary Care Provider Zachery Angel MD Primary Care Provider UnavailZachery Charlton MD Primary Care Provider UnavailZachery Charlton MD Primary Care Provider UnavailZachery Charlton MD Primary Care Provider Unavaila samuel Encounter Details Date Type Department Care Team (Latest Contact Info) Description 12/05/2012 Abstract [facility] Medical Group Social History Tobacco Use [...] on filedocumented in this encounter Care Teams Body Specialist Relationship Specialty Start Date End Date Nikita Mares MD PCP - General 03/13/16 Zachery Ryan MD PCP - General 10/26/15 03/12/16 Zachery Ryan MD PCP - General 10/18/15 10/25/15 Zachery Ryan MD PCP - General 11/09/13 10/17/15 Zachery Ryan MD PCP - General 09/30/12 11/08/13 documented as of this encounter
--- OUTSIDE RECORDS SUMMARY | 2024-03-15 14:36 | XMS_ITS | Encounter Summary ---
Author Organization [facility] Address [facility]. [place], [place] [address] [place] [address] Care Team Providers Care Medical Surgery Nurse Name Role Phone Nikita Mares MD [...] Care Team (Late st Contact Info) Description 06/06/2012 Abstract [facility] Family Medicine - [place] [address] [place] [phone] Zachery Ryan MD [address] [place] [address] Social History Tobacco Use Types Packs/Day Years Used Date Smoking Tobacco: Never Assessed Comments Unknown Sex and Gender Information Value Date Recorded Sex Assigned at Not on file Legal Sex Female 5:47 PM CDT Gender Identity Not on file Sexual Orientation Not on file documented as of this encounter Last Filed Vital Signs Vital Sign Reading Time Taken Comments Blood Pressure 100/70 06/06/2012 1:23 PM CDT Pulse 78 06/06/2012 1:23 PM CDT Temperature - - Respiratory Rate - - Oxygen Saturation - - Inhaled Oxygen Concentration - - Weight 47.6 kg (105 lb) 06/06/2012 1:23 PM CDT Height 158.8 cm (5' 2.5 ) 06/06/2012 1:23 PM CDT Body Mass Index 18.9 06/06/2012 1:23 PM CDT Body Mass Index Percentile 46.74% 06/06/2012 1:2 3 PM CDT Growth Chart: [facility] (Girls, 2- 20 Years) documented in this encounter Progress Notes * Generic Conversion MD Suzan - 06/06/2012 1:15 PM CDT Reason For Visit Reason For Visit: Acute Visit Chief Complaint 1. Depression History of Present Illness HPI Free Text: 1. Depression and cutting: Mother brings patient in for evaluation for her PTSD/depression. Patientwas treated with celexa in the past, and then changed to depakote for her depression/cutting. Cutting was occuring in the past, and she was reportedly depressed about the of her cousin. She wasseeing Dr. Ruiz in the past. Mother would like to get her back to see a counselor and to see psychiatry in possible (preferrable a child psychiatrist). Patient reports that celexa was doing good for her depression but when she was changed from that todepakote, the anger was more stable, but her depression, she reports she began having SI, and hearing voices telling her to hurt herself. Depakote was stopped and she has not been on any medications for about 2 1/2 months. Patient reports that her anger fluctuates and when it occurs, she wants to go and get a razor and cut herself. She has not cut herself in the past couple of months. Last time she has done this was Mar 22 2012. Review of Systems Focused-Female: See HPI for pertinent positives. no anxiety ideation depression Other Symptoms: Patient reports that she feels like she wants to hurt herself but she does not. shereports easily angered. Symptoms of Suicidal thoughts come on and off, and she reports symptoms up to 5 times per day. Symptoms have become more frequent. She makes herself tell others. Active Problems 1. Asthma 493.90 2. Chronic Pharyngitis Streptococcus 034.0 RECURRENT 3. Vision Problems V41.0 WEARS GLASSES. MYOPIA Past [...] Vitals Vital Signs [Data Includes: Current Encounter] 06Jun2012 01:23PM Temperature 98.7 F Heart Rate 78 Respiration 16 Systolic 100 Diastolic 70 BMI Calculated 18.84 BSA Calculated 1.46 Height 5 ft 2.5 in Weight 105 lb Physical Exam Constitutional - General appearance: [...] Normal. Mood and affect: Normal. Assessment 1. Depression 311 Plan 1. Citalopram Hydrobromide 10 MG Oral Tablet; TAKE 1 TABLET DAILY; Therapy: 06Jun2012 to (Evaluate:[id number]) Requested for: 06Jun2012; Last Rx:06Jun2012; Edited Ordered; For: Depression (311); Rx By: Zachery Ryan; Dispense: 30 Days ; #:30 Tablet; Refill: 3; Verified Transmission to [facility] [id number] Discussion/Summary Discussion Summary Free Text: 1. Acute worsening depression with passive suicidal ideations. Discussed case with Dr. Riddle of Child Psychiatry. Start Celexa 10 mg daily, and patient has follow up with Dr. Riddle 1 week. Discussed with patient, who agreed to notify mother if she feels like hurting herself again. Discussed with mother (with patient in the room ) that if any worsening symptoms, go to ER. Mother and patient acknowledged discussion, plans. Signatures Electronically signed by : Zachery Ryan M.D.; Jun 08 2012 2:34PM (Author) GER NON PROFIT documented in this encounter Plan of Treatment Not on file documented as of this encounter Visit Diagnoses Not on filedocumented in this encounter Care Teams Medical Surgery Nurse Relationship Specialty Start Date End Date [...] PCP - General 07/15/12 08/28/12 Md Generic Conversion, PCP - General 04/22/11 documented as of this encounter
--- OUTSIDE RECORDS SUMMARY | 2024-03-15 14:36 | XMS_ITS | Encounter Summary ---
Author Organization [facility] Address [address] [place] [address]. [place], [place] [address] [place] [address] Care Team Providers Care Descriptive Catalog Librarian Name Role Phone , Generic Ximena GOODWIN Primary Care Provider Unavailable Encounter Details Date Type Department Care Team (Late st Contact Info) Description 03/13/2016 Abstract [facility] [address] [place] [address] Jennifer Franklin APNP Social History Tobacco Use Types Packs/Day Years [...] Procedure Name Priority Date/Time Associated Diagnosis Comments CULTURE STREP A Routine 03/13/2016 9:39 AM NOVELTY TWISTER TENDER RAPID STREP A STAT 03/13/2016 9:39 AM NOVELTY TWISTER TENDER documented in this encounter Results * CULTURE STREP A (03/13/2016 9:39 AM NOVELTY TWISTER TENDER) SPEC DESCRIPTION THROAT 03/13/2016 10:51 AM NOVELTY TWISTER TENDER [facility] SPECIAL REQUESTS NO SPECIAL REQUEST 03/13/2016 10:51 AM NOVELTY TWISTER TENDER [facility] CULTURE RESULT NO STREPTOCOCCUS PYOGENES (GROUP A) ISOLATED 03/15/2016 12:39 PM NOVELTY TWISTER TENDER [facility] THROAT SWAB / Unknown 03/13/2016 9:39 AM NOVELTY TWISTER TENDER 03/13/2016 10:51 AM NOVELTY TWISTER TENDER us Generic Conversion Md GOODWIN MICROBIOLOGY - GENERAL ORDERABLES Final Result Performing Organization Address [facility] Co de Phone Number [facility] [address] [place] [address], [place] [phone] * RAPID STREP A (03/13/2016 9:39 AM NOVELTY TWISTER TENDER) SPECIMEN TYPE THROAT 03/13/2016 10:39 AM NOVELTY TWISTER TENDER [facility] RAPID STREP TEST NEGATIVE NEGATIVE 03/13/2016 10:50 AM NOVELTY TWISTER TENDER [facility] Comment: TESTING PERFORMED AT [facility] [address] [place] [address] ??[id number] MALICK RAMOS M.D., METAL FABRICATOR HELPER THROAT SWAB / Unknown 03/13/2016 9:39 AM NOVELTY TWISTER TENDER 03/13/2016 10:42 AM NOVELTY TWISTER TENDER us Nikita Bueno Md, MD MICROBIOLOGY - GENERAL ORDERABLES Final Result Performing Organization Address [facility] Co de Phone Number [facility] [address] [place] [address], [place] [phone] documented in this encounter Visit Diagnoses Diagnosis Respiratory system disease complicating in second trimester (HHS/HCC) Other current maternal conditions classifiable elsewhere, antepartum documented in this encounter Care Teams Descriptive Catalog Librarian Relationship Specialty Start Date End Date Nikita Goodwin MD PCP - General 03/13/16 documented as of this encounter
--- OUTSIDE RECORDS SUMMARY | 2024-03-15 14:36 | XMS_ITS | Encounter Summary ---
Author Organization [facility] Address [facility]. [place], [place] [address] [place] [address] Care Team Providers Care Vehicle Safety Inspector Name Role Phone Nikita Mares MD Primary Care Provider Zachery Angel MD Primary Care Provider Zachery Toth MD Primary Care Provider Zachery Toth MD Primary Care Provider Zachery Toth MD Primary Care Provider Jacquelin baker Encounter Details Date Type Department Care Team (Late st Contact Info) Description 04/21/2013 Abstract [facility] - [place] [address] [facility], [address] [place] [address] Zachery Ryan MD [address] [facility] [address] [place] [address] Social History Tobacco Use Types Packs/Day Years Used Date Smoking Tobacco: Never Assessed Comments Unknown Sex and Gender Information Value Date Recorded Sex Assigned at Not on file Legal Sex Female 5:47 PM CDT Gender Identity Not on file Sexual Orientation Not on file documented as of this encounter Progress Notes * Nikita Bueno Md, MD - 04/21/2013 4:00 PM CST Reason For Visit ringworm Reason For Visit: Other: follow up Chief Complaint Chief Complaint Free Text: pt here for thyroid issues. Active Problems 1. Asthma 493.90 2. Chronic Pharyngitis Streptococcus 034.0 RECURRENT 3. Depression 311 4. Fever (Symptom) 780.60 5. Lump Or Mass In The Right Breast 611.72 6. Nasal Passage Blockage (Stuffiness) 478.19 7. Seborrheic Dermatitis Of The Scalp 690.18 8. Sore Throat 462 9. Vision Problems V41.0 WEARS GLASSES. MYOPIA Past Medical History 1. Asthma 493.90 Surgical History Patient indicates no past surgical history. Family History 1. Family history of Asthma V17.5 SISTER, MATERNAL GRANDMOTHER Social History ?? Living With Parents ?? Never A Smoker ?? Never Drank Alcohol Current Meds 1. ProAir HFA 108 (90 Base) MCG/ACT Inhalation Aerosol Solution; INHALE 1 TO 2 PUFFS EVERY 4 TO 6 HOURS NEEDED; Therapy: [id number] to (Last Rx:[id number]) Requested for: [id number] Ordered; For: Asthma (493.90); Rx By: Zachery Ryan; Dispense: 0 Days ; #:2 X 8.5 GM Inhaler; Refill:3; Verified Transmission to [facility] [id number] 2. TEGretol 200 MG Oral Tablet; TAKE 1 TABLET TWICE DAILY; Therapy: (Recorded:29Aug2012) to Recorded; For: Depression (311); Dispense: 0 Days ; #: Sufficient Tablet; Refill: 0; Record; Last Updated By: Zachery Ryan 3. Zafirlukast 10 MG Oral Tablet; TAKE ONE TABLET BY MOUTH TWICE DAILY; Therapy: [id number] to (Last Rx:[id number]) Requested for: [id number] Ordered; For: Asthma (493.90), Nasal Passage Blockage (Stuffiness) (478.19); Rx By: Zachery Ryan; Dispense: 0 Days ; #:60 Tablet; Refill: 2; Verified Transmission to [facility] [id number] Allergies 1. No Known Drug Allergies No Known Drug Allergies Vitals Vital Signs [Data Includes: Current Encounter] 21Apr2013 03:40PM Heart Rate 72 Respiration 14 Systolic 98 Diastolic 62 Weight 103 lb EMS ANALYST ENGINEER documented in this encounter Plan of Treatment Not on file documented as of this encounter Visit Diagnoses Not on filedocumented in this encounter Care Teams Vehicle Safety Inspector Relationship Specialty Start Date End Date Nikita Mares MD PCP - General 03/13/16 Zachery Ryan MD PCP - General 10/26/15 03/12/16 Zachery Ryan MD PCP - General 10/18/15 10/25/15 Zachery yRan MD PCP - General 11/09/13 10/17/15 Zachery Ryan MD PCP - General 09/30/12 11/08/13 documented as of this encounter
--- OUTSIDE RECORDS SUMMARY | 2024-03-15 14:36 | XMS_ITS | Encounter Summary ---
Author Organization [facility] Address [facility]. [place], [place] [address] [place], [place] [id number] Care Team Providers Care Service Supervisor Name Role Phone Nikita Goodwin MD Primary Care Provider Zachery Angel MD Primary Care Provider Zachery Toth MD Primary Care Provider Zachery Toth MD Primary Care Provider Zachery Toth MD Primary Care Provider Unavaila Zachery Forrester MD Primary Care Provider Unavaila Zachery Forrester MD Primary Care Provider Unavaila ble Encounter Details Date Type Department Care Team (Latest Contact Info) Description 07/16/2012 Abstract [facility] Nikita Goodwin MD Social History Tobacco Use Types Packs/Day Years Used Date Smoking Tobacco: Never Assessed Comments Unknown Sex and Gender Information Value Date Recorded Sex Assigned at Not on file Legal Sex Female 5:47 PM CDT Gender Identity Not on file Sexual Orientation Not on file documented as of this encounter Progress Notes * Nikita Bueno Md, MD - 07/16/2012 3:50 PM CDT Message SPOKE WITH RADIOLOGY, AND AFTER EVALUATION, SUGGESTED MAYBE PATIENT WOULD BENEFIT FROM SURGICAL EVALUATION AT THE LOCAL [facility]. ACKNOWLEDGED. MA PLACED CALL AND PATIENT SET UP FOR APPOINTMENT WITH DR. JIMÉNEZ AT [facility] ON June AT 11:10 AM CALLED SPOKE WITH MOTHER ABOUT THIS. SHE ACKNOWLEDGED. SHE IS TO GET COPY OF U/S PRIOR TO VISIT TO [facility]. ATTEMPTED TO ANSWER ALL QUESTIONS. PEND FURTHER EVALUATION FROM GEN SURGERY AT [facility]. KESHIA GOODWIN Current Meds 1. Ketoconazole 2 % External Cream; APPLY A THIN LAYER TO AFFECTED AREA(S) TWICE DAILY; Therapy: [id number] to (Evaluate:[id number]) Requested for: 10Jul2012; Last Rx:[id number] Results/Data U/S breast Right: 07-15-12: 2 masses correlating for palpable abnormality, right breast 5-8 oclock position. DETAIL: 1 CM FROM NIPPLE THERE IS A DUMBBELL SHAPED LESION THAT IS HYPOECHOIC AND WELL DEFINED. SHAPE IS POSSIBLY DUE TO 2 ADJACENT CONTIGUOUS MASSES. THE FIRST OF THESE MEASURES 3.46 X1.78 X 3.5 CM AND THE SECOND ONE MEASURES 2.01 X 1.79 X 1.49 CM. LESIONS ARE DEFINITE INTERNAL ECHOES AND BLOOD FLOW SEEN. FINDINGS ARE CONSISTENT WITH FOCAL SOLID LESIONS. Assessment 1. Lump Or Mass In The Right Breast 611.72 Plan 1. General Surgery Referral Outpatient Consult for child Requested for: 16Jul2012 Signatures Electronically signed by : Zachery Ryan M.D.; Jul 16 2012 4:01PM (Author) RVISOR BEEHIVE KILN * Generic Conversion MD Suzan - 07/16/2012 2:43 PM CDT Message Called [facility] regarding whether Dr. Kohler would be willing to see the patient for bresat bx. Dr. Kohler was out on vacation and per retail assistant will get back to me Saturday. Usually she would prefer patient having a mammogram for evaluation as well as the U/S. Acknowledged. Called mother to discuss results of U/S (2 masses noted on U/S of the right breast adjacent to eachother). discussed size. discussed plans for surgical Bx. mother acknowledged. will follow up with us on by saturday if she does not hear from us by saturday. acknowledged. In regards to her psychological issues, mother asked my opinion regarding medications romulo was offered for treatment of what psychiatry suspects is bipolar disorder: [place], zyprexa, Geodone, Risperdal, Tegretol. Reviewed briefly the medications using epocrates drug reference, and discussed with mother my recommendations: -- Risperdal (possibly first line treatment for bipolar) or Tegretol. Reviewed common and serious side effects. instructed mother to follow up with psychiatry and discuss her concerns, and to suggest starting the lowest dose possible of either of those two meds. she acknowledged. finally she asked about the time frame for improvement of symptoms on the medication. I told her I was not sure about that. I did not think it would take as long as the antidepressants but unsure if it was 1 day or 2 days or 1 week. discussed with patient's mother that I only know a bit about the medications but essentially are only partially educated on these meds. she acknowledged. she will follow up with the psychiatrist. Keshia GOODWIN Current Meds 1. Ketoconazole 2 % External Cream; APPLY A THIN LAYER TO AFFECTED AREA(S) TWICE DAILY; Therapy: [id number] to (Evaluate:[id number]) Requested for: 10Jul2012; Last Rx:[id number] Results/Data U/S breast Right: 07-15-12: 2 masses correlating for palpable abnormality, right breast 5-8 oclock position. DETAIL: 1 CM FROM NIPPLE THERE IS A DUMBBELL SHAPED LESION THAT IS HYPOECHOIC AND WELL DEFINED. SHAPE IS POSSIBLY DUE TO 2 ADJACENT CONTIGUOUS MASSES. THE FIRST OF THESE MEASURES 3.46 X1.78 X 3.5 CM AND THE SECOND ONE MEASURES 2.01 X 1.79 X 1.49 CM. LESIONS ARE DEFINITE INTERNAL ECHOES AND BLOOD FLOW SEEN. FINDINGS ARE CONSISTENT WITH FOCAL SOLID LESIONS. Signatures Electronically signed by : Zachery Ryan M.D.; Jul 16 2012 3:30PM (Author) RVISOR BEEHIVE KILN documented in this encounter Plan of Treatment Not on file documented as of this encounter Visit Diagnoses Not on filedocumented in this encounter Care Teams Service Supervisor Relationship Specialty Start Date End Date Nikita [...]
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
--- OUTSIDE RECORDS SUMMARY | 2024-03-15 14:36 | XMS_ITS | Encounter Summary ---
Author Organization [facility] Address [address] [place] [address]. [place], [place] [address] [place] [address] Care Team Providers Care Vice President Of Nursing Name Role Phone None, Provider Primary Care Provider Shana Degroot MD Primary Care Provider [phone] La Nena Ferro OBSERVER ELECTRICAL PROSPECTINGFORMERLY [facility] Primary Care Provider Unav ailable None, Provider Primary Care Provider La Nena Landon [facility] Primary Care Provider Unav ailable Miguel Mancuso MD Primary Care Provider Encounter Details Date Type Department Care Team (Latest Contact Info) Description 01/28/2018 Abstract [facility] Nikita Mares MD [...] on filedocumented in this encounter Care Teams Vice President Of Nursing Relationship Specialty Start Date End Date None, Provider, PCP - General 06/16/18 07/21/18 Shana Easton MD PCP - General FAMILY PRACTICE 07/22/18 11/29/21 La Nena Ferro OBSERVER ELECTRICAL PROSPECTING-BC PCP - General Nurse Practitioner Family 11/30/21 2 None, MD Gualberto PCP - General 12/27/21 06/19/22 La Nena Ferro, [facility] PCP - General Nurse Practitioner Family 06/20/22 3 Miguel Mancuso MD [address] [place] [address] PCP - General FAMILY PRACTICE 10/12/22 documented as of this encounter
--- OUTSIDE RECORDS SUMMARY | 2024-03-15 14:36 | XMS_ITS | Encounter Summary ---
Author Organization [facility] Address [address] [place] [address]. [place], [place] [id number] [place] [address] Care Team Providers Care Medical Authorization Specialist Name Role Phone , Nikita Bueno MD Primary Care Provider Unavailable Reason for Visit * Reason Comments Problem (Cold Symptoms) Encounter Details Date Type Department Care Team (Latest Contact Info) Description 05/14/2017 5:37 PM SHELL SIEVE OPERATOR - 05/14/2017 6:22 PM SHELL SIEVE OPERATOR Hospital Encounter [facility] [address] [place], [place] [id number] Shayy Mckeon, DIRECTOR OF REVENUE CYCLE MANAGEMENT [address] [place], [place] [id number] Problem (Cold Symptoms) Discharge Disposition: Home or Self Care (Routine [...] Sign Reading Time Taken Comments Blood Pressure 112/69 05/14/2017 5:37 PM SHELL SIEVE OPERATOR Pulse 105 05/14/2017 5:37 PM SHELL SIEVE OPERATOR Temperature 36.9 ??C (98.4 ??F) 05/14/2017 5:37 PM CS T Respiratory Rate 20 05/14/2017 5:37 PM SHELL SIEVE OPERATOR Oxygen Saturation 99% 05/14/2017 5:37 PM SHELL SIEVE OPERATOR Inhaled Oxygen Concentration - - Weight 42.2 kg (93 lb) 05/14/2017 5:37 PM SHELL SIEVE OPERATOR Height 160 cm (5' 3 ) 05/14/2017 5:37 PM SHELL SIEVE OPERATOR Body Mass Index 16.47 05/14/2017 5:37 PM SHELL SIEVE OPERATOR Body Mass Index Percentile 0.67% 05/14/2017 5:3 7 PM SHELL SIEVE OPERATOR Growth Chart: [facility] (Girls, 2- 20 Years) documented in this encounter Discharge Instructions * Discharge Instructions* Shayy Mckeon, DIRECTOR OF REVENUE CYCLE MANAGEMENT - 05/14/2017 6:15 PM SHELL SIEVE OPERATOR Images from the original note were not included. Once a swab is negative at this time you may continue taking Tylenol as needed for pain increase water intake and follow-up with [facility] for continued concerns Please use humidifier at bedside as needed to aid in coughing Viral Syndrome Discharge Instructions About this topic Viral syndrome is an illness with signs like you would get with a cold or the flu. A tiny germ called a virus causes this infection. Most people get better in 1 to 2 weeks without treatment. This illness spreads easily from person to person. What care is needed at home? ?? Ask your doctor what you need to do when you go home. Make sure you ask questions if you do not understand what the doctor says. This way you will know what you need to do. ?? Drink lots of water, juice, or broth to replace fluids lost in runny nose and fever. Suck on icechips or popsicles to ease throat pain. ?? Get lots of rest and sleep. Sleep helps your body get back the energy it needs. ?? Stay away from others until you are feeling better. What follow-up care is needed? Your doctor may ask you to make visits to the office to check on your progress. Be sure to keep these visits. What drugs may be needed? The doctor may order drugs to: ?? Help with pain ?? Lower fever ?? Help with pain from a sore throat ?? Help a runny or stuffy nose ?? Ease or stop coughing Will physical activity be limited? You need to rest while you are getting better. This means you may need to limit your activity untilyou feel well. What changes to diet are needed? Eat foods that will not upset your stomach like chicken soup, bananas, rice, apples, or toast. What problems could happen? ?? Lung problems like pneumonia and bronchitis ?? Too much fluid loss ?? Infection What can be done to prevent this health problem? ?? If you are sick, cover your mouth and nose with tissue when you cough or sneeze. You can also cough into your elbow. Throw away tissues in the trash and wash your hands after touching used tissues. ?? Wash your hands often with soap and water for at least 15 seconds, especially after coughing or sneezing. Alcohol-based hand sanitizers also work to kill the virus. ?? Do not get too close (kissing, hugging) to people who are sick. ?? Stay away from crowded places. ?? Do not share towels or hankies with anyone who is sick. Clean commonly handled things like door handles, remotes, toys, and phones. Wipe them with a disinfectant. ?? Take vitamin C to help build up your body's ability to fight disease. ?? Get a flu shot each year. When do I need to call the doctor? ?? Signs of infection. These include a fever of 100.4??F (38??C) or higher, chills, very bad sore throat, ear or sinus pain, cough, more sputum or change in color of sputum, and mouth sores. ?? Trouble breathing ?? Very bad throwing up or throwing up that does not stop ?? Health problem is not better or you are feeling worse Teach Back: Helping You Understand The Teach Back Method helps you understand the information we are giving you. The idea is simple. After talking with the staff, tell them in your own words what you were just told. This helps to makesure the staff has covered each thing clearly. It also helps to explain things that may have been abit confusing. Before going home, make sure you are able to do these: ?? I can tell you about my condition. ?? I can tell you what may help ease my sore throat. ?? I can tell you what I can do to help avoid passing the infection to others. ?? I can tell you what I will do if I have trouble breathing, very bad throwing up, or throwing up that does not stop. Last Reviewed Date 2014-11-19 Consumer Information Use and Disclaimer This information is not specific medical advice and does not replace information you receive from your health care provider. This is only a brief summary of general information. It does NOT include all information about conditions, illnesses, injuries, tests, procedures, treatments, therapies, discharge instructions or life-style choices that may apply to you. You must talk with your health care provider for complete information about your health and treatment options. This information should not be used to decide whether or not to accept your health care provider???s advice, instructions or recommendations. Only your health care provider has the knowledge and training to provide advice that is right for you. Copyright Copyright ?? 2017 [employer] and its affiliates and/or licensors. All rights reserved. Viral Upper Respiratory Infection Discharge Instructions, Adult About this topic You have a viral upper respiratory infection. It is also called a URI or cold. A tiny germ called avirus causes this infection. It often affects your nose, throat, ears, and sinuses. A cold can easily spread from person to person. Coughing, sneezing, and touching something with the germ on it spreads the cold. Viral infections often go away after 2 to 3 weeks without treatment. But some can cause very serious health problems. What care is needed at home? ?? Ask your doctor what you need to do when you go home. Make sure you ask questions if you do not understand what the doctor says. This way you will know what you need to do. ?? Drink lots of water, juice, or broth to replace fluids lost in runny nose and fever. ?? Gargle with warm salt water a few times daily. Mix 1/2 teaspoon (2.5 grams) salt with a cup (240mL) of warm water. ?? Keep your room cool. Use a cool mist humidifier. This will add moisture to the air and help easecongestion and coughing. ?? You may use saline nose drops to relieve stuffiness. ?? Use 2 to 3 pillows under your head and shoulders when you lie down. This will make it easier to breathe and sleep. ?? Do not smoke. Stay away from others who are smoking. What follow-up care is needed? Your doctor may ask you to make visits to the office to check on your progress. Be sure to keep these visits. What drugs may be needed? The doctor may order drugs to: ?? Open up the tubes of your lungs ?? Treat viral infection ?? Relieve or stop coughing ?? Help with pain from a sore throat ?? Relieve runny and stuffy nose ?? Provide oxygen Will physical activity be limited? You need to rest for a few days to let your body recover from the infection. What changes to diet are needed? Eat soft foods like soup if swallowing is too painful. What problems could happen? ?? Asthma attack ?? Sinus infections ?? Lung problems like pneumonia and bronchitis ?? Severe fluid loss. This is dehydration. What can be done to prevent this health problem? ?? Wash your hands often with soap and water for at least 15 seconds, especially after coughing or sneezing. Alcohol-based hand sanitizers also work to kill the virus. ?? If you are sick, cover your mouth and nose with tissue when you cough or sneeze. You can also cough into your elbow. Throw away tissues in the trash and wash your hands after touching used tissues. ?? Do not get too close (kissing, hugging) to people who are sick. ?? Do not share towels or hankies with anyone who is sick. Clean commonly handled things like door handles, remotes, toys, and phones. Wipe them with a disinfectant. ?? Stay away from crowded places. ?? Cover your nose and mouth when you sneeze or cough. ?? Take vitamin C to help build up your body's ability to fight disease. ?? Get a flu shot each year. When do I need to call the doctor? ?? Signs of infection. These include a fever of 100.4??F (38??C) or higher, chills, very bad sore throat, ear or sinus pain, cough, more sputum or change in color of sputum, mouth sores. ?? Throwing up and can't keep liquids down ?? Breathing very fast, more than 40 breaths in 1 minute ?? Trouble breathing while lying down flat on your back ?? Excessive tiredness ?? Your fingertips or lips are starting to turn bluish Teach Back: Helping You Understand The Teach Back Method helps you understand the information we are giving you. The idea is simple. After talking with the staff, tell them in your own words what you were just told. This helps to makesure the staff has covered each thing clearly. It also helps to explain things that may have been abit confusing. Before going home, make sure you are able to do these: ?? I can tell you about my condition. ?? I can tell you what may help ease my signs. ?? I can tell you what I will do if I have a fever, chills, breathing very fast, or trouble breathing. Where can I learn more? [employer] http://www.lung.ca/diseases-maladies/a-z/cold-rhume/index_e.php [employer] http://www.niaid.nih.gov/topics/commonCold/Pages/treatment.aspx Last Reviewed Date 2014-11-19 Consumer Information Use and Disclaimer This information is not specific medical advice and does not replace information you receive from your health care provider. This is only a brief summary of general information. It does NOT include all information about conditions, illnesses, injuries, tests, procedures, treatments, therapies, discharge instructions or life-style choices that may apply to you. You must talk with your health care provider for complete information about your health and treatment options. This information should not be used to decide whether or not to accept your health care provider???s advice, instructions or recommendations. Only your health care provider has the knowledge and training to provide advice that is right for you. Copyright Copyright ?? 2017 [employer] and its affiliates and/or licensors. All rights reserved. L SIEVE OPERATOR documented in this encounter Medications at Time of Discharge vitamin, low iron, ( VITAMIN WITH IRON) 27-0.8 MG tablet Take 1 tablet by mouth daily. 06/18/2018 documented as of this encounter ED Notes * Shayy Mckeon APRN - 05/14/2017 5:51 PM CST Chief Complaint Chief Complaint Patient presents with ??? Problem (Cold Symptoms) History of Present Illness HPI Comments: 16-year-old female presents to urgent care with complaints of cough body aches feversup to 99.4 congestion and sore throat. Symptoms started 3 days ago. She was exposed influenza B by her mother whom she lives with. Patient is 15 weeks gestation last menstrual period was January 29 she denies any urinary frequency burning hesitancy or abdominal pain she has taken tylenol for feversas needed History provided by: Patient nuclear unit operator used: No Medical History ALLERGIES: No Known Allergies MEDICATIONS: Prior to Admission medications Medication Sig Start Date End Date Taking? Authorizing Provider vitamin, low iron, ( VITAMIN WITH IRON) 27-0.8 MG tablet Take 1 tablet by mouth daily. Yes Doc Abstract PAST MEDICAL HISTORY: Past Medical History: Diagnosis Date ??? Depression PAST SURGICAL HISTORY: Past Surgical History: Procedure Laterality Date ??? ADENOIDECTOMY ??? TONSILLECTOMY FAMILY HISTORY: Family History Problem Relation Age of Onset ??? Asthma Mother SOCIAL HISTORY: Social History Substance Use Topics ??? Smoking status: Never Smoker ??? Smokeless tobacco: Never Used ??? Alcohol use No Review of Systems Review of Systems Constitutional: Positive for chills, fatigue and fever. HENT: Positive for congestion, rhinorrhea and sore throat. Eyes: Negative. Respiratory: Positive for cough. Cardiovascular: Negative. Gastrointestinal: Negative. Endocrine: Negative. Genitourinary: Negative. Musculoskeletal: Negative. Skin: Negative. Allergic/Immunologic: Negative. Hematological: Negative. Psychiatric/Behavioral: Negative. Physical Exam Filed Vitals: 05/14/17 1737 BP: 112/69 Pulse: 105 Resp: 20 Temp: 98.4 ??F (36.9 ??C) TempSrc: Oral SpO2: 99% Weight: 42.2 kg (93 lb) Height: 5' 3 (1.6 m) Physical Exam Constitutional: She is oriented to person, place, and time. Vital signs are normal. She appears well-developed and well-nourished. Non-toxic appearance. She does not have a sickly appearance. She does not appear ill. No distress. 16 y/o female HENT: Head: Normocephalic. Right Ear: Hearing, tympanic membrane, external ear and ear canal normal. Left Ear: Hearing, tympanic membrane, external ear and ear canal normal. Nose: Mucosal edema present. Mouth/Throat: Uvula is midline and oropharynx is clear and moist. Eyes: Conjunctivae are normal. Pupils are equal, round, and reactive to light. Neck: Normal range of motion. Neck supple. Cardiovascular: Normal rate, regular rhythm and normal heart sounds. Pulmonary/Chest: Effort normal and breath sounds normal. Abdominal: Bowel sounds are normal. Musculoskeletal: Normal range of motion. Neurological: She is alert and oriented to person, place, and time. No cranial nerve deficit. Coordination normal. Skin: Skin is warm and dry. She is not diaphoretic. Psychiatric: She has a normal mood and affect. Her behavior is normal. Judgment and thought contentnormal. Nursing note and vitals reviewed. Diagnostic Studies / Procedures ELECTROCARDIOGRAMS: No results found for this visit on 05/14/17. LABORATORY STUDIES: Results for orders placed or performed during the hospital encounter of 05/14/17 INFLUENZA A & B Result Value Ref Range Specimen Type NASOPHARYNGEAL SWAB INFLUENZA A NEGATIVE NEGATIVE INFLUENZA B NEGATIVE NEGATIVE IMAGING STUDIES No orders to display ED Course / Medical Decision Making Clinical Impression Viral URI with cough (Primary) Disposition: Discharge Shayy Mckeon APRN 05/14/17 1815 L SIEVE OPERATOR * Rosie Rodriguez RN - 05/14/2017 5:44 PM CST PT AMBULATORY TO FROM HOME WITH C/O COUGH, CONGESTION, CHEEMA, BODY ACHES AND NAUSEA THAT STARTED 3 DAYS AGO. POSITIVE EXPOSURE TO INFLUENZA B. L SIEVE OPERATOR documented in this encounter Plan of Treatment Not on file documented as of this encounter Procedures Procedure Name Priority Date/Time Associated Diagnosis Comments INFLUENZA A & B STAT 05/14/2017 5:46 PM SHELL SIEVE OPERATOR documented in this encounter Results * INFLUENZA A & B (05/14/2017 5:46 PM SHELL SIEVE OPERATOR) SPECIMEN TYPE NASOPHARYNGEAL SWAB 05/14/2017 5:50 PM SHELL SIEVE OPERATOR [facility] INFLUENZA A NEGATIVE NEGATIVE 05/14/2017 6:09 PM SHELL SIEVE OPERATOR [facility] INFLUENZA B NEGATIVE NEGATIVE 05/14/2017 6:09 PM SHELL SIEVE OPERATOR [facility] Comment: Interpretation: Negative for Influenza A and B. A negative result does not exclude influenza virus infection. If influenza is circulating in your community, a diagnosis of influenza should be considered based on a patient's clinical presentation and empiric antiviral treatment should be considered, if indicated. If more conclusive testing is needed for hospitalized inpatients, follow-up confirmatory testing with RT-PCR requires a separate order. NASOPHARYNGEAL SWAB / Unknown 05/14/2017 5:46 PM SHELL SIEVE OPERATOR us Shayy Mckeon DIRECTOR OF REVENUE CYCLE MANAGEMENT MICROBIOLOGY - GENERAL ORD ERABLES [place] [address], documented in this encounter Visit Diagnoses Diagnosis Viral URI with cough- Primary Acute upper respiratory infections of unspecified site documented in this encounter Care Teams Medical Authorization Specialist Relationship Specialty Start Date End Date Nikita Mares MD PCP - General 03/13/16 documented as of this encounter
--- OUTSIDE RECORDS SUMMARY | 2024-03-15 14:36 | XMS_ITS | Encounter Summary ---
Author Organization [facility] Address [address] [place] [address]. [place] [address] Care Team Providers Care Construction Helper Name Role Phone Nikita Mares MD Primary Care Provider Unavailable Zachery Ryan MD Primary Care Provider Unavaila samuel Encounter Details Date Type Department Care Team (Latest Contact Info) Description 02/14/2016 Abstract [facility] Social History Tobacco Use [...] on filedocumented in this encounter Care Teams Construction Helper Relationship Specialty Start Date End Date Nikita Mares MD PCP - General 03/13/16 Zachery Ryan MD PCP - General 10/26/15 03/12/16 documented as of this encounter
--- OUTSIDE RECORDS SUMMARY | 2024-03-15 14:36 | XMS_ITS | Encounter Summary ---
Author Organization [facility] Address [facility]ly [facility] [facility]. [place], [place] [id number] [place] [address] Care Team Providers Care Reel Film Inspector Name Role Phone Nikita Mares MD Primary Care Provider Zachery Anegl MD Primary Care Provider Zachery Toth MD Primary Care Provider Zachery Toth MD Primary Care Provider Zachery Toth MD Primary Care Provider Zachery Toth MD Primary Care Provider UnavailZachery Charlton MD Primary Care Provider Unavaila ble Encounter Details Date Type Department Care Team (Late st Contact Info) Description 07/15/[address] [facility] [address] [place] [address] Zachery Ryan MD Social History Tobacco Use [...] as of this encounter Visit Diagnoses Diagnosis Lump or mass in breast documented in this encounter Care Teams Reel Film Inspector Relationship Specialty Start Date End Date [...]
--- OUTSIDE RECORDS SUMMARY | 2024-03-15 14:36 | XMS_ITS | Encounter Summary ---
Author Organization [facility] Address [address] [place] [address]. [place], [place] [id number] [place] [address] Care Team Providers Care Polishing Pad Mounter Name Role Phone Nikita Goodwin MD Primary Care Provider Zachery Angel MD Primary Care Provider Zachery Toth MD Primary Care Provider Zachery Toth MD Primary Care Provider Zachery Toth MD Primary Care Provider Unavaila Zachery Forrester MD Primary Care Provider Unavaila ble Encounter Details Date Type Department Care Team (Latest Contact Info) Description 08/29/2012 Abstract [facility] Medical Group Zachery Ryan MD [address] [place] [address] Social History Tobacco Use Types Packs/Day Years [...] Associated Diagnosis Comments CULTURE STREP A Routine 08/29/2012 2:03 PM CDT documented in this encounter Results * CULTURE STREP A (08/29/2012 2:03 PM CDT) THROAT CULTURE STREP A ONLY SPECIMEN DESCRIPTION ? - THROAT SPECIMEN DESCRIPTION ? - SPECIAL REQUESTS ? - NONE SPECIAL REQUESTS ? - CULTURE ?- NO STREPTOCOCCUS PYOGENES (GROUP A) ISOLATED CULTURE ?- REPORT STATUS ?- FINAL 08/31/2012 REPORT STATUS ?- [facility] TO EPIC CONVERSION 08/29/2012 2:03 PM CDT 08/29/2012 2:03 PM CDT Narrative [facility] TO EPIC CONVERSION - 08/29/2012 6:40 PM CDT Result Communication: No patient communication needed at this time us Generic Conversion Md [facility] MICROBIOLOGY - GENERAL ORDERABLES Final Result [facility] TO EPIC CONVERSION documented in this encounter Visit Diagnoses Not on filedocumented in this encounter Care Teams Polishing Pad Mounter Relationship Specialty Start Date End Date Nikita [...]
--- OUTSIDE RECORDS SUMMARY | 2024-03-15 14:36 | XMS_ITS | Encounter Summary ---
Author Organization [facility] Address [address] [place] [address]. [place], [place] [address] [place] [address] Care Team Providers Care Tubing Supervisor Name Role Phone Nikita Goodwin MD Primary Care Provider Unavailable Zachery Ryan MD Primary Care Provider Unavaila ble Zachery Ryan MD Primary Care Provider Unavaila samuel Encounter Details Date Type Department Care Team (Late st Contact Info) Description 10/18/2015 Abstract [facility] [address] [place] [address] Yulia Dc, MARA Social History Tobacco Use Types Packs/Day Years [...] Procedure Name Priority Date/Time Associated Diagnosis Comments CHLAMYDIA GC BY PCR Routine 10/18/2015 7 :30 PM CDT SMEAR, STAIN, WET PREP STAT 10/18/2015 7:30 PM CDT TEST URINE STAT 10/18/2015 7:17 PM CDT URINALYSIS AUTO DIP STAT 10/18/2015 7 :17 PM CDT documented in this encounter Results * CHLAMYDIA GC BY PCR (10/18/2015 7:30 PM CDT) SPECIMEN SOURCE CERVIX 6 12:12 PM CDT [facility] CHLAMYDIA PCR NEGATIVE NEGATIVE 10/25/2015 12:12 PM CDT [facility] Comment: This test was performed using the APTIMA Combo 2 Chlamydia trachomatis & Neisseria gonorrhoeae RNA Amplified Probe Assay which detects the presence of C. trachomatis and N. gonorrhoeae rRNA in clinical specimens. This assay was validated by [facility] and cleared by the FDA for endocervical and male urethral swabs from symptomatic and asymptomatic patients. Performed at [facility], [address] [place] [address] SPECIMEN CERVIX 10/25/2015 12:12 PM CDT [facility] NEISSERIA GONORRHOEAE PCR NEGATIVE NEGATIVE 10/25/2015 12:12 PM CDT [facility] Comment: This test was performed using the APTIMA Combo 2 Chlamydia trachomatis & Neisseria gonorrhoeae RNA Amplified Probe Assay which detects the presence of C. trachomatis and N. gonorrhoeae rRNA in clinical specimens. This assay was validated by [facility] and cleared by the FDA for endocervical and male urethral swabs from symptomatic and asymptomatic patients. Performed at [facility], [address] [place] [address] 10/18/2015 7:30 PM CDT 10/18/2015 7:57 PM CDT us Generic Conversion Md GOODWIN MICROBIOLOGY - GENERAL ORDERABLES Final Result [facility] [address] [place], [place] [id number] * SMEAR, STAIN, WET PREP (10/18/2015 7:30 PM CDT) SPEC DESCRIPTION VAGINAL SPECIMEN 10/18/2015 7:31 PM CDT [facility] SPECIAL REQUESTS NO SPECIAL REQUEST 10/18/2015 7:31 PM CDT [facility] DIRECT EXAM NO YEAST OR FUNGAL ELEMENTS SEEN 10/18/2015 8:00 PM CDT [facility] DIRECT EXAM NO MOTILE TRICHOMONAS SEEN 10/18/2015 8:00 PM CDT [facility] DIRECT EXAM CLUE CELLS SEEN 10/18/19 8:00 PM CDT [facility] DIRECT EXAM TESTING PERFORMED AT [address] ??[id number] MALICK RAMOS M.D., ASSISTED LIVING HOME DIRECTOR 10/18/2015 8:00 PM CDT [facility] VAGINAL STRUCTURE / Unknown 10/18/2015 7:30 PM CDT 10/18/2015 7:57 PM CDT us Generic Conversion Md [facility] MICROBIOLOG[facility] - GENERAL ORDERABLES Final Result Performing Organization Address [facility] Co de Phone Number [facility] [address] [place] [address], [place] [phone] * TEST URINE (10/18/2015 7:17 PM CDT) PREG TEST POSITIVE 10/18/2015 7:28 PM CDT [facility] Comment: TESTING PERFORMED AT [address] ??[id number] MALICK RAMOS M.D., ASSISTED LIVING HOME DIRECTOR SPECIFIC GRAVITY (U) 1.020 >1.009 10/18/2015 7:28 PM CDT [facility] 10/18/2015 7:17 PM CDT 10/18/2015 7:25 PM CDT us Generic Conversion Md GOODWIN URINE ORDERABLES Final Result Performing Organization Address [facility] Co de Phone Number [facility] [address] [place] [address], [place] [phone] * URINALYSIS AUTO DIP (10/18/2015 7:17 PM CDT) SOURCE (FLUID) URINE CLEAN CATCH 10/18/2015 7:17 PM CDT [facility] COLOR (U) YELLOW 10/18/2015 7:27 PM CDT [facility] Comment: TESTING PERFORMED AT [address] ??[id number] MALICK RAMOS M.D., ASSISTED LIVING HOME DIRECTOR TRANSPARENCY CLEAR 10/18/2015 7:27 PM CDT [facility] SPECIFIC GRAVITY (U) 1.020 1.001 - 1.030 10/18/2015 7:27 PM CDT [facility] U PH 7.5 5.0 - 9.0 10/18/2015 7:27 PM CDT [facility] LEUKOCYTES (U) NEGATIVE NEGATIVE 10/18/2015 7:27 PM CDT [facility] NITRITES NEGATIVE NEGATIVE 10/18/2015 7:27 PM CDT [facility] PROTEIN (U) NEGATIVE <30 MG/DL 10/18/2015 7:27 PM CDT [facility] URINE GLUCOSE NEGATIVE NEGATIVE MG/DL 10/18/2015 7:27 PM CDT [facility] KETONES MG/DL (U) NEGATIVE NEGATIVE MG/DL 10/18/2015 7:27 PM CDT [facility] UROBILINOGEN NEGATIVE NEGATIVE MG/DL 10/18/2015 7:27 PM CDT [facility] BILIRUBIN (U) NEGATIVE NEGATIVE MG/DL 10/18/2015 7:27 PM CDT [facility] BLOOD (U) NEGATIVE NEGATIVE 10/18/2015 7:27 PM CDT [facility] CULTURE & SENSITIVITY INDICATED? CULTURE IS NOT INDICATED 10/18/2015 7:27 PM CDT [facility] 10/18/2015 7:17 PM CDT 10/18/2015 7:25 PM CDT us Generic Conversion Md GOODWIN URINE ORDERABLES Final Result [facility] [address] [place] [address], [place] [phone] documented in this encounter Visit Diagnoses Diagnosis Abdominal pain Abdominal pain, unspecified site documented in this encounter Care Teams Tubing Supervisor Relationship Specialty Start Date End Date Nikita Goodwin MD PCP - General 03/13/16 Zachery Ryan MD PCP - General 10/26/15 03/12/16 Zachery Ryan MD PCP - General 10/18/15 10/25/15 documented as of this encounter
--- OUTSIDE RECORDS SUMMARY | 2024-03-15 14:36 | XMS_ITS | Encounter Summary ---
Author Organization [facility] Address [address] [place] [address]. [place], [place] [id number] [place] [address] Care Team Providers Care Hand Icer Name Role Phone Nikita Goodwin MD Primary Care Provider Zachery Angel MD Primary Care Provider Zachery Toth MD Primary Care Provider Zachery Toth MD Primary Care Provider Jacquelin baker Encounter Details Date Type Department Care Team (Latest Contact Info) Description 11/09/2013 Abstract [facility] Zachery Ryan MD [address] [place] [address] Social History Tobacco Use Types [...] Name Priority Date/Time Associated Diagnosis Comments URINALYSIS WI REFLEX TO CULTURE Routine 11/09/2013 4:08 PM CDT documented in this encounter Results * (ABNORMAL) URINALYSIS WI REFLEX TO CULTURE (11/09/2013 4:08 PM CDT) SPECIMEN TYPE VOIDED URINE [facility] TO EPIC CONVERSION COLOR (U) KARMEN ?? TESTING PERFORMED AT [place] MALICK RAMOS M.D., UNIVERSITY COUNSELOR [facility] TO EPIC CONVERSION TRANSPARENCY CLEAR [facility] P TO EPIC CONVERSION SPECIFIC GRAVITY (U) 1.030 1.001 - 1.030 [facility] TO EPIC CONVERSION U PH 6.0 5.0 - 9.0 [facility] T O EPIC CONVERSION LEUKOCYTES (U) NEG NEG [facility] OUP TO EPIC CONVERSION NITRITES NEG NEG [facility] T O EPIC CONVERSION PROTEIN (U) 30(H) <30 MG/DL [facility] TO EPIC CONVERSION GLUCOSE NEG NEG MG/DL [facility] T O EPIC CONVERSION KETONES MG/DL (U) TRACE(A) NEG MG/DL [facility] TO EPIC CONVERSION UROBILINOGEN NEG NEG MG/DL [facility] P TO EPIC CONVERSION BILIRUBIN (U) NEG NEG MG/DL [facility] UP TO EPIC CONVERSION BLOOD (U) NEG NEG [facility] T O EPIC CONVERSION REFLEX URINE CULTURE: CULTURE IS NOT INDICATED [facility] TO EPIC CONVERSION SQUAMOUS EPITHELIALS FEW /LPF [facility] TO EPIC CONVERSION HYALINE CASTS MODERATE /LPF [facility] UP TO EPIC CONVERSION RBC/HPF <1 <6 /HPF [facility] T O EPIC CONVERSION WBC <1 <6 /HPF [facility] T O EPIC CONVERSION BACTERIA (U) FEW(A) NONE /HPF [facility] P TO EPIC CONVERSION MUCUS MANY /LPF [facility] T O EPIC CONVERSION 11/09/2013 4:08 PM CDT 11/09/2013 4:08 PM CDT Narrative [facility] TO EPIC CONVERSION - 11/09/2013 4:19 PM CDT Result Communication: No patient communication needed at this time us Generic Conversion Md [facility]WIN URINE ORDERABLES Final Result [facility] TO EPIC CONVERSION documented in this encounter Visit Diagnoses Not on filedocumented in this encounter Care Teams Hand Icer Relationship Specialty Start Date End Date Nikita Goodwin MD PCP - General 03/13/16 Zachery Ryan MD PCP - General 10/26/15 03/12/16 Zachery Ryan MD PCP - General 10/18/15 10/25/15 Zachery Ryan MD PCP - General 11/09/13 10/17/15 documented as of this encounter
--- OUTSIDE RECORDS SUMMARY | 2024-03-15 14:36 | XMS_ITS | Encounter Summary ---
Author Organization [facility] Address [address] [place] [address]. [place], [place] [id number] [place], [place] [id number] Care Team Providers Care Route Delivery Driver Name Role Phone Nikita Mares MD Primary Care Provider Zachery Angel MD Primary Care Provider Zachery Toth MD Primary Care Provider UnavailZachery Charlton MD Primary Care Provider Jacquelin baker Encounter Details Date Type Department Care Team (Late st Contact Info) Description 11/09/2013 Abstract [facility] Family [facility] - [place] [address] [place] [address] Zachery Ryan MD [address] [place] [address] Social History Tobacco Use Types Packs/Day Years Used Date Smoking Tobacco: Never Assessed Comments Unknown Sex and Gender Information Value Date Recorded Sex Assigned at Not on file Legal Sex Female 5:47 PM CDT Gender Identity Not on file Sexual Orientation Not on file documented as of this encounter Last Filed Vital Signs Vital Sign Reading Time Taken Comments Blood Pressure 96/62 11/09/2013 3:33 PM CDT Pulse - - Temperature - - Respiratory Rate - - Oxygen Saturation - - Inhaled Oxygen Concentration - - Weight - - Height - - Body Mass Index - - documented in this encounter Plan of Treatment Not on file documented as of this encounter Visit Diagnoses Not on filedocumented in this encounter Care Teams Route Delivery Driver Relationship Specialty Start Date End Date Nikita Mares MD PCP - General 03/13/16 Zachery Ryan MD PCP - General 10/26/15 03/12/16 Zachery Ryan MD PCP - General 10/18/15 10/25/15 Zachery Ryan MD PCP - General 11/09/13 10/17/15 documented as of this encounter
--- OUTSIDE RECORDS SUMMARY | 2024-03-15 14:36 | XMS_ITS | Encounter Summary ---
Author Organization [facility] Address [address] [place] [address]. [place], [place] [address] [place] [address] Care Team Providers Care Stratigraphy Teacher Name Role Phone Nikita Goodwin MD Primary Care Provider Zachery Angel MD Primary Care Provider Zachery Toth MD Primary Care Provider Zachery Toth MD Primary Care Provider Jacquelin baker Encounter Details Date Type Department Care Team (Latest Contact Info) Description 11/09/2013 Abstract [facility] Zachery Ryan MD [address] [place] [address] Social History Tobacco Use Types [...] Procedure Name Priority Date/Time Associated Diagnosis Comments BMP W IONIZED CA BLOOD Routine 11/09/2013 3:55 PM CDT documented in this encounter Results * BMP W IONIZED CA WH BLOOD (11/09/2013 3:55 PM CDT) [facility] Signature GLUCOSE POC 92 70 - 99 mg/dL [facility] TO EPIC CONVERSION Comment: Result Comment: ?? TESTING PERFORMED AT [place], [place] MALICK RAMOS M.D., CASSEROLE PREPARER BUN 8 8 - 23 mg/dL [facility] TO EPIC CONVERSION CREATININE WHOLE BLOOD 0.7 0.40 - 0.70 mg/dL [facility] TO EPIC CONVERSION SODIUM WHOLE BLOOD 142 136 - 145 mmol/L [facility] TO EPIC CONVERSION POTASSIUM WHOLE BLOOD 3.6 3.5 - 5.1 mmol/L [facility] TO EPIC CONVERSION CHLORIDE WHOLE BLOOD 102 98 - 107 mmol/L [facility] TO EPIC CONVERSION POC CO2 WHOLE BLOOD 24 22 - 29 mmol/L [facility] TO EPIC CONVERSION CA IONIZED WH BLOOD 1.20 1.12 - 1.32 mmol/L [facility] TO EPIC CONVERSION ANION GAP 20 8 - 20 [facility] T O EPIC CONVERSION GFR ESTIMATE NOT CALCULATED >60 mL/min/1. 73m'2 [facility] TO EPIC CONVERSION EGFR AFR. AMER. NOT CALCULATED NOTE: eGFR is not calculated for patients <18 years of age. This is an estimated GFR (CKD EPI) and should not be used for calculating drug doses. >60 mL/min/1. 73m'2 [facility] TO EPIC CONVERSION 11/09/2013 3:55 PM CDT 11/09/2013 3:55 PM CDT Narrative [facility] TO EPIC CONVERSION - 11/09/2013 4:15 PM CDT Result Communication: No patient communication needed at this time us Generic Conversion Md [facility] Final R esult [facility] TO EPIC CONVERSION documented in this encounter Visit Diagnoses Not on filedocumented in this encounter Care Teams Stratigraphy Teacher Relationship Specialty Start Date End Date Nikita Goodwin MD PCP - General 03/13/16 Zachery Ryan MD PCP - General 10/26/15 03/12/16 Zachery Ryan MD PCP - General 10/18/15 10/25/15 Zachery Ryan MD PCP - General 11/09/13 10/17/15 documented as of this encounter
--- OUTSIDE RECORDS SUMMARY | 2024-03-15 14:36 | XMS_ITS | Encounter Summary ---
Author Organization [facility] Address [address] [place] [address]. [place], [place] [address] [place] [address] Care Team Providers Care Wet Pour Mixer Name Role Phone Nikita Mares MD Primary Care Provider Unavailable Zachery Ryan MD Primary Care Provider UnavailZachery Charlton MD Primary Care Provider Unavaila Zachery Forrester MD Primary Care Provider Unavaila samuel Encounter Details Date Type Department Care Team (Late st Contact Info) Description 11/09/2013 Abstract [facility] [address] [place] [address] Denny Castanon, APNP [address] [facility] [address] [place] [address] Social History Tobacco Use Types Packs/Day Years Used Date Smoking Tobacco: Never Assessed Comments Unknown Sex and Gender Information Value Date Recorded Sex Assigned at Not on file Legal Sex Female 5:47 PM CDT Gender Identity Not on file Sexual Orientation Not on file documented as of this encounter Plan of Treatment Not on file documented as of this encounter Visit Diagnoses Diagnosis Dizziness and giddiness documented in this encounter Care Teams Wet Pour Mixer Relationship Specialty Start Date End Date Nikita Mares MD PCP - General 03/13/16 Zachery Ryan MD PCP - General 10/26/15 03/12/16 Zachery Ryan MD PCP - General 10/18/15 10/25/15 Zachery Ryan MD PCP - General 11/09/13 10/17/15 documented as of this encounter
--- OUTSIDE RECORDS SUMMARY | 2024-03-15 14:36 | XMS_ITS | Encounter Summary ---
Author Organization [facility] Address [address] [place] [address]. [place] [id number] Care Team Providers Care Data Architect Name Role Phone Nikita Mares MD Primary [...] Department Care Team (Latest Contact Info) Description 03/20/[address] [facility] Social History Tobacco Use Types Packs/Day Years Used Date Smoking Tobacco: Never Assessed Comments Unknown Sex and Gender Information Value Date Recorded Sex Assigned at Not on file Legal Sex Female 5:47 PM CDT Gender Identity Not on file Sexual Orientation Not on file documented as of this encounter Progress Notes * Nikita Bueno Md, MD - 03/20/2012 4:58 PM CST Message Message: Called patient mother in regards to the message that she left about her daughter medication, informed her that the only medication I see is the Pro-Air and if she had question about the medication to please the give the office a call.... VINEET Davis Signatures Electronically signed by : Enid Kaiser MA; Mar 20 2012 5:00PM (Author) ESCORT documented in this encounter Plan of Treatment Not on file documented as of this encounter Visit Diagnoses Not on filedocumented in this encounter Care Teams Data Architect Relationship Specialty Start Date End Date Nikita [...]
--- OUTSIDE RECORDS SUMMARY | 2024-03-15 14:36 | XMS_ITS | Encounter Summary ---
Author Organization [facility] Address [address] [place] [address]. [place], [place] [id number] [place] [address] Care Team Providers Care Machine Striper Name Role Phone Nikita Goodwin MD Primary Care Provider Zachery Angel MD Primary Care Provider Zachery Toth MD Primary Care Provider Zachery Toth MD Primary Care Provider UnavailZachery Charlton MD Primary Care Provider Unavaila samuel Encounter Details Date Type Department Care Team (Late st Contact Info) Description 11/04/2013 Abstract [facility] - [place] [address] [place] [address] Zachery Ryan MD [address] [place] [address] Social History Tobacco Use Types Packs/Day Years Used Date Smoking Tobacco: Never Assessed Comments Unknown Sex and Gender Information Value Date Recorded Sex Assigned at Not on file Legal Sex Female 5:47 PM CDT Gender Identity Not on file Sexual Orientation Not on file documented as of this encounter Last Filed Vital Signs Vital Sign Reading Time Taken Comments Blood Pressure 120/70 11/04/2013 11:02 AM CDT Pulse 78 11/04/2013 11:02 AM CDT Temperature - - Respiratory Rate - - Oxygen Saturation - - Inhaled Oxygen Concentration - - Weight 44.5 kg (98 lb) 11/04/2013 11:02 AM CDT Height 157.5 cm (5' 2 ) 11/04/2013 11:02 AM CDT Body Mass Index 17.92 11/04/2013 11:02 AM CDT Body Mass Index Percentile 21.17% 11/04/2013 11: 02 AM CDT Growth Chart: [facility] (Girls, 2- 20 Years) documented in this encounter Progress Notes * Generic Conversion MD Suzan - 11/04/2013 11:00 AM CDT Reason For Visit Reason For Visit: Acute Visit Chief Complaint pt here for nausea, dizzyness, and almost passing out. History of Present Illness Sinus congestion: 1 week of headache, dizziness and fatigue. rapid heart beat at times and early this week she had a cough. no ear pain. she had a sore throat which is getting better.nausea is noted.no vomiting. no diarrhea. no dysuria, hematuria. she states she feels she has heavy periods - she and her mother states at least 7 pads per day fullsoaked. the periods last about 5 days and heavy on the first 3 days and oracle dba progressively on the last 2 days. LMP was 10-14-2013. Review of Systems See HPI for pertinent positives. Active Problems 1. Asthma (493.90) (J45.909) 2. Congested nose (478.19) (R09.81) 3. Depression (311) (F32.9) 4. Fever (780.60) (R50.9) 5. Mass of right breast (611.72) (N63) 6. Recurrent streptococcal tonsillitis (034.0) (J03.00) ?? RECURRENT 7. Seborrheic dermatitis of scalp (690.18) (L21.8) 8. Sore throat (462) (J02.9) 9. Vision problems (V41.0) (H54.2) ?? WEARS GLASSES. MYOPIA Past Medical History 1. Asthma (493.90) (J45.909) Surgical History Patient indicates no past surgical history. Family History Family History 1. Family history of Asthma (V17.5) ?? SISTER, MATERNAL GRANDMOTHER Social History ?? Living With Parents ?? Never a smoker ?? Never Drank Alcohol Current Meds 1. ProAir HFA 108 (90 Base) MCG/ACT Inhalation Aerosol Solution; INHALE 1 TO 2 PUFFS EVERY 4 TO 6 HOURS NEEDED; Therapy: [id number] to (Last Rx:[id number]) Requested for: [id number] Ordered Rx By: Zachery Ryan; Dispense: 0 Days ; #:2 X 8.5 GM Inhaler; Refill: 3; For: Asthma; RENEE = N; Verified Transmission to [email or web address] [address]78 2. TEGretol 200 MG Oral Tablet; TAKE 3 TABLET Daily; Therapy: (Recorded:26May2013) to Recorded Dispense: 0 Days ; #: Sufficient Tablet; Refill: 0; For: Depression; RENEE = N; Record; Last Updated By: Ruth Flores; 05/26/2013 1:44:36 PM 3. Zafirlukast 10 MG Oral Tablet; TAKE ONE TABLET BY MOUTH TWICE DAILY; Therapy: [id number] to (Last Rx:[id number]) Requested for: [id number] Ordered Rx By: Zachery Ryan; Dispense: 0 Days ; #:60 Tablet; Refill: 2; For: Asthma, Congested nose; RENEE = N; Verified Transmission to [email or web address] 87686 Allergies 1. No Known Drug Allergies Recorded By: Enid Kaiser; 02/22/2012 11:04:54 AM Vitals Vital Signs [Data Includes: Current Encounter] Recorded by : Elier Ospina at [id number] 11:02AM Temperature 98.4 F Heart Rate 78 Respiration 14 Systolic 120 Diastolic 70 Height 5 ft 2 in 2-20 Stature Percentile 24 % Weight 98 lb 2-20 Weight Percentile 15 % BMI Calculated 17.92 BMI Percentile 21 % BSA Calculated 1.41 Physical Exam Constitutional - General appearance: Abnormal. Alert, acutely ill and well nourished. Head and Face - Head and face: Normocephalic, atraumatic. Palpation of the face and sinuses: Abnormal. Examination of the Sinuses: right maxillary tenderness and left maxillary tenderness, but non-tender right frontal and non-tender left frontal. Eyes - Conjunctiva and lids: Abnormal. Mild pallor to conjunctiva bilaterally. Ears, Nose, Mouth, and Throat - External inspection of ears and nose: Normal without deformities ordischarge. Otoscopic examination: Tympanic membranes monzon, translucent with good bony landmarks andlight reflex. Canals patent without erythema. Nasal mucosa, septum, and turbinates: Abnormal. Bilateral nasal congestion with mild pallor. Oropharynx: Abnormal. Clear posterior nasal drip noted. Pulmonary - Respiratory effort: Normal respiratory rate and rhythm, no increased work of breathing.Auscultation of lungs: Clear bilaterally. Cardiovascular - Auscultation of heart: Regular rate and rhythm, normal S1 and S2, no murmur. Abdomen - Abdomen: Abnormal. LLQ ttp without guarding. mild ttp RLQ as well. Liver and spleen: No hepatomegaly or splenomegaly. Lymphatic - Palpation of lymph nodes in neck: Abnormal. Bilateral anterior cervical node enlargement, but no posterior cervical node enlargement and no supraclavicular node enlargement. Psychiatric - Orientation to person, place, and time: Normal. Mood and affect: Normal. Assessment 1. Headache (784.0) (R51) 2. Acute upper respiratory infection (465.9) (J06.9) 3. Pallor (782.61) (R23.1) Plan Acute upper respiratory infection 1. Start: Fluticasone Propionate 50 MCG/ACT Nasal Suspension; USE 2 SPRAYS IN EACH NOSTRIL ONCE DAILY Rx By: Zachery Ryan; Dispense: 0 Days ; #:1 X 16 GM Bottle; Refill: 0; For: Acute upper respiratory infection; RENEE = N; Send To: [email or web address] 10720 Acute upper respiratory infection, Headache 2. Start: Amoxicillin 875 MG Oral Tablet; TAKE 1 TABLET EVERY 12 HOURS DAILY Rx By: Zachery Ryan; Dispense: 14 Days ; #:28 Tablet; Refill: 0; For: Acute upper respiratory infection, Headache; RENEE = N; Send To: [email or web address] 17690 Pallor 3. CBC W Differential Status: Active Requested for: [id number] Perform: [facility] Due: [id number]; Ordered; For: Pallor; Ordered By: Zachery Ryan Discussion/Summary 1. URI with headache: fluticasone 2 sprays per nostril daily along with sudafed and plenty of hydration. eat food before sudafed. tylenol or motrin for CHEEMA. if not improved in 2-3 days start amoxicillin. 2. concern for pallor check blood count follow up results. Signatures Electronically signed by : Zachery Ryan M.D.; Nov 04 2013 11:21AM DIRECTOR SOCIAL (Author) documented in this encounter Plan of Treatment Not on file documented as of this encounter Procedures Procedure Name Priority Date/Time Associated Diagnosis Comments CBC W/DIFF AUTOMATED Routine 11/09/2013 3:55 PM CDT documented in this encounter Results * (ABNORMAL) CBC W/DIFF AUTOMATED (11/09/2013 3:55 PM CDT) Pathologist [facility] WBC 7.0 4.8 - 10.8 X10'3/uL [facility] TO [facility] CONVERSION Comment: Result Comment: ?? TESTING PERFORMED AT [place], [place] MALICK RAMOS M.D., FEATHER [employer]APER RBC 4.80 4.20 - 5.40 X10'6/uL [facility] CONVERSION HGB 13.6 12.0 - 16.0 g/dL [facility] CONVERSION HCT 43.0 38.0 - 48.0 % [facility] CONVERSION MCV 89.6 81.0 - 99.0 fL [facility] CONVERSION MCH 28.3 27.0 - 31.0 pg [facility] TO [facility] CONVERSION MCHC 31.6(L) 32.0 - 36.0 g/dL [facility] CONVERSION RDW 12.4 11.5 - 14.5 % [facility] CONVERSION PLT 168 130 - 400 X10'3/uL [facility] CONVERSION GLUCOSE 10.3 9.3 - 12.2 fL [facility] CONVERSION SEG NEUTROPHILS 75(H) 43.0 - 65.0 % [facility] CONVERSION LYMPHOCYTES 24 20.0 - 46.0 % [facility] CONVERSION EOSINOPHILS 1 1.0 - 3.0 % [facility] CONVERSION DIFFERENTIAL TYPE MANUAL ME [facility] TO EPIC CONVERSION 11/09/2013 3:55 PM CDT 11/09/2013 3:55 PM CDT Narrative [facility] CONVERSION - 11/09/2013 4:23 PM CDT Result Communication: No patient communication needed at this time us Generic Conversion [facility] Final R esult [facility] TO [facility] CONVERSION documented in this encounter Visit Diagnoses Not on filedocumented in this encounter Care Teams Machine Striper Relationship Specialty Start Date End Date Nikita Goodwin MD PCP - General 03/13/16 Zachery Ryan MD PCP - General 10/26/15 03/12/16 Zachery Ryan MD PCP - General 10/18/15 10/25/15 Zachery Ryan MD PCP - General 11/09/13 10/17/15 Zachery Ryan MD PCP - General 09/30/12 11/08/13 documented as of this encounter
--- OUTSIDE RECORDS SUMMARY | 2024-03-15 14:37 | XMS_ITS | Encounter Summary ---
Author Organization [facility] Address [address] [place] [address]. [place], [place] [address] [place] [address] Care Team Providers Care Pipe Testing Technician Name Role Phone Nikita Goodwin MD Primary Care Provider Unavailable Zachery Ryan MD Primary Care Provider UnavailZachery Charlton MD Primary Care Provider UnavailZachery Charlton MD Primary Care Provider UnavailZachery Charlton MD Primary Care Provider UnavailZachery Charlton MD Primary Care Provider UnavailZachery Charlton MD Primary Care Provider Unavailpio baker Md Generic Ximena GOODWIN Primary Care Provider Unavailable Md Generic Ximena GOODWIN Primary Care Provider Unavailable Md Generic Ximena GOODWIN Primary Care Provider Unavailable Md Generic Ximena GOODWIN Primary Care Provider Unavailable Md Generic Ximena GOODWIN Primary Care Provider Unavailable Md Generic Ximena GOODWIN Primary Care Provider Unavailable Md Generic Ximena GOODWIN Primary Care Provider Unavailable Encounter Details Date Type Department Care Team (Late st Contact Info) Description 07/20/1999 Abstract [facility] [address] [place] [address] Orquidea Sherwood MD [address] [address] Social History Tobacco Use Types Packs/Day Years [...] filedocumented in this encounter Care Teams Pipe Testing Technician Relationship Specialty Start Date End Date Nikita Goodwin MD PCP - General 03/13/16 Zachery Ryan, PCP - General 10/26/15 03/12/16 Zachery Ryan, PCP - General 10/18/15 10/25/15 Zachery Ryan, PCP - General 11/09/13 10/17/15 Zachery Ryan, PCP - General 09/30/12 11/08/13 Zachery Ryan, PCP - General 08/29/12 09/29/12 Zachery Ryan, PCP - General 07/15/12 08/28/12 , Generic Conversion, PCP - General 04/22/11 , Generic Conversion, PCP - General 04/10/11 , Generic Conversion, PCP - General 03/28/11 , Generic Conversion, PCP - General 01/20/11 2 , Generic Conversion, PCP - General 12/18/1001/19 Md, Generic Conversion, PCP - General 08/07/10 Md, Generic Conversion, PCP - General 04/19/10 documented as of this encounter
--- OUTSIDE RECORDS SUMMARY | 2024-03-15 14:37 | XMS_ITS | Encounter Summary ---
Author Organization [facility] Address [facility]. [place], [place] [address] [place] [address] Care Team Providers Care Respiratory Care Faculty Name Role Phone Nikita Goodwin MD Primary [...] Care Team (Late st Contact Info) Description 02/21/2002 Emergency [facility] [place] [address] Ciara Felix MD [address] [facility] [address] [place] [address] Social History Tobacco Use Types Packs/Day Years [...] on filedocumented in this encounter Care Teams Respiratory Care Faculty Relationship Specialty Start Date End Date Nikita [...] , Generic Conversion, PCP - General 12/18/1001/19 , Generic Conversion, PCP - General 08/07/10 Md, Generic Conversion, PCP - General 04/19/10 documented as of this encounter
--- OUTSIDE RECORDS SUMMARY | 2024-03-15 14:37 | XMS_ITS | Encounter Summary ---
Author Organization [facility] Address [facility] [place], [place] [address] [place] [address] Care Team Providers Care Construction Code Administrator Name Role Phone Nikita Mares MD Primary Care Provider Unavailable Zachery Ryan MD Primary Care Provider Zachery Toth MD Primary Care Provider Zachery Toth MD Primary Care Provider Zachery Toth MD Primary Care Provider Zachery Toth MD Primary Care Provider Zachery Toth MD Primary Care Provider Nikita Newman Md, MD Primary Care Provider Nikita Foss Md, MD Primary Care Provider Unavailable Encounter Details Date Type Department Care Team (Late st Contact Info) Description 04/10/2011 Emergency [facility] [place] [address] Nikita Mares MD Social History Tobacco Use [...] as of this encounter Visit Diagnoses Diagnosis Other acute pain documented in this encounter Care Teams Construction Code Administrator Relationship Specialty Start Date End Date Nikita Mares MD PCP - General 03/13/16 Zachery Ryan MD PCP - General 10/26/15 03/12/16 Zachery Ryan MD PCP - General 10/18/15 10/25/15 Zachery Ryan MD PCP - General 11/09/13 10/17/15 Zachery Ryan MD PCP - General 09/30/12 11/08/13 Zachery Ryan MD PCP - General 08/29/12 09/29/12 Zachery Ryan MD PCP - General 07/15/12 08/28/12 , Generic Conversion, PCP - General 04/22/11 Md Generic Conversion, PCP - General 04/10/11 documented as of this encounter
--- OUTSIDE RECORDS SUMMARY | 2024-03-15 14:37 | XMS_ITS | Encounter Summary ---
Author Organization [facility] Address [address] [place] [address]. [place], [place] [address] [place] [address] Care Team Providers Care Scrap Cutter Name Role Phone Nikita Goodwin MD Primary [...] Care Team (Late st Contact Info) Description 06/21/2001 Emergency [facility] [place] [address] Mindy Quintanilla, DO [address] [place] [address] Social History Tobacco Use Types Packs/Day Years [...] on filedocumented in this encounter Care Teams Scrap Cutter Relationship Specialty Start Date End Date [...]
--- OUTSIDE RECORDS SUMMARY | 2024-03-15 14:37 | XMS_ITS | Encounter Summary ---
Author Organization [facility] Address [address] [place] [address]. [place], [place] [address] [place] [address] Care Team Providers Care Ldr Nurse Name Role Phone Nikita Goodwin MD Primary Care Provider Unavailable Zachery Ryan MD Primary Care Provider Zachery Toth MD Primary Care Provider UnavailZachery Charlton MD Primary Care Provider Zachery Toth MD Primary Care Provider UnavailZachery Charlton MD Primary Care Provider UnavailZachery Charlton MD Primary Care Provider UnavailNikita hendrickson Md, MD Primary Care Provider Unavailable Nikita Goodwin MD Primary Care Provider Unavailable Nikita Goodwin MD Primary Care Provider Unavailable Md Generic Ximena GOODWIN Primary Care Provider Unavailable Encounter Details Date Type Department Care Team (Late st Contact Info) Description 01/20/2011 Emergency [facility] [place] [address] Janie Cadet MD [address] [place] [address] [address] [place], [place] [address] Social History Tobacco Use Types Packs/Day Years Used Date Smoking Tobacco: Never Assessed Comments Unknown Sex and Gender Information Value Date Recorded Sex Assigned at Not on file Legal Sex Female 5:47 PM CDT Gender Identity Not on file Sexual Orientation Not on file documented as of this encounter Plan of Treatment Not on file documented as of this encounter Visit Diagnoses Diagnosis Visual disturbance Unspecified visual disturbance documented in this encounter Care Teams Ldr Nurse Relationship Specialty Start Date End Date Nikita Goodwin MD PCP - General 03/13/16 Zachery Ryan MD PCP - General 10/26/15 03/12/16 Zachery Ryan, PCP - General 10/18/15 10/25/15 Zachery Ryan, PCP - General 11/09/13 10/17/15 Zachery Ryan, PCP - General 09/30/12 11/08/13 Zachery Ryan, PCP - General 08/29/12 09/29/12 Zachery Ryan, PCP - General 07/15/12 08/28/12 , Generic Conversion, PCP - General 04/22/11 , Generic Conversion, PCP - General 04/10/11 , Generic Conversion, PCP - General 03/28/11 Md Generic Conversion, PCP - General 01/20/11 2 documented as of this encounter
--- OUTSIDE RECORDS SUMMARY | 2024-03-15 14:37 | XMS_ITS | Encounter Summary ---
Author Organization [facility] Address [address] [place] [address]. [place], [place] [address] [place] [address] Care Team Providers Care Machine Gunner Name Role Phone Nikita Mares MD Primary Care Provider Unavailable Zachery Ryan MD Primary Care Provider UnavailZachery Charlton MD Primary Care Provider UnavailZachery Charlton MD Primary Care Provider UnavailZachery Charlton MD Primary Care Provider UnavailZachery Charlton MD Primary Care Provider UnavailZachery Charlton MD Primary Care Provider UnavailNikita hendrickson Md, MD Primary Care Provider Unavailable Nikita Mares MD Primary Care Provider Unavailable Nikita Mares MD Primary Care Provider Unavailable Nikita Mares MD Primary Care Provider Unavailable Nikita Mares MD Primary Care Provider Unavailable Nikita Mares MD Primary Care Provider Unavailable Nikita Mares MD Primary Care Provider Unavailable Encounter Details Date Type Department Care Team (Late st Contact Info) Description 06/07/2005 Abstract [facility] [address] [place], [place] [address] Nikita Mares MD Social History Tobacco Use [...] filedocumented in this encounter Care Teams Machine Gunner Relationship Specialty Start Date End Date Nikita Mares MD PCP - General 03/13/16 Zachery Ryan MD PCP - General 10/26/15 03/12/16 Zachery Ryan MD PCP - General 10/18/15 10/25/15 Zachery Ryan, PCP - General 11/09/13 10/17/15 Zachery Ryan, PCP - General 09/30/12 11/08/13 Zachery Ryan, PCP - General 08/29/12 09/29/12 Zachery Ryan, PCP - General 07/15/12 08/28/12 , Generic Conversion, PCP - General 04/22/11 Md, Generic Conversion, PCP - General 04/10/11 , Generic Conversion, PCP - General 03/28/11 Md, Generic Conversion, PCP - General 01/20/11 2 Md, Generic Conversion, PCP - General 12/18/1001/19 , Generic Conversion, PCP - General 08/07/10 Md, Generic Conversion, PCP - General 04/19/10 documented as of this encounter
--- OUTSIDE RECORDS SUMMARY | 2024-03-15 14:37 | XMS_ITS | Encounter Summary ---
Author Organization [facility] Address [address] [place] [address]. [place], [place] [address] [place] [address] Care Team Providers Care Crisis Specialist Name Role Phone Md Generic Ximena GOODWIN Primary Care Provider Unavailable Zachery Ryan MD [...] GOODWIN Primary Care Provider Unavailable Md Generic Conversion Primary Care Provider Unavailable Md Generic Conversion Primary Care Provider Unavailable Md Generic Conversion Primary Care Provider Unavailable Encounter Details Date Type Department Care Team (Late st Contact Info) Description 04/06/1999 [place] [address] Orquidea Sherwood MD [address] [address] Social History Tobacco Use Types Packs/Day Years [...] on filedocumented in this encounter Care Teams Crisis Specialist Relationship Specialty Start Date End Date Nikita Goodwin MD PCP - General 03/13/16 Zachery Ryan, PCP - General 10/26/15 03/12/16 Zachery Ryan, PCP - General 10/18/15 10/25/15 Zachery Ryan, PCP - General 11/09/13 10/17/15 Zachery Ryan MD PCP - General 09/30/12 11/08/13 Zachery Ryan, [...]
--- OUTSIDE RECORDS SUMMARY | 2024-03-15 14:37 | XMS_ITS | Encounter Summary ---
Author Organization [facility] Address [address] [place] [address]. [place], [place] [address] [place] [address] Care Team Providers Care Solid Propellant Processor Name Role Phone Nikita Mares MD Primary [...] Care Team (Late st Contact Info) Description 04/19/2010 Abstract [facility] [address] [place] [address] Nikita Mares MD Social History Tobacco Use [...] as of this encounter Visit Diagnoses Diagnosis Sprain of wrist Sprain of wrist, unspecified site documented in this encounter Care Teams Solid Propellant Processor Relationship Specialty Start Date End Date Nikita [...] Md, Generic Conversion, PCP - General 12/18/1001/19 Md, Generic Conversion, PCP - General 08/07/10 Md, Generic Conversion, MD PCP - General 04/19/10 documented as of this encounter
--- OUTSIDE RECORDS SUMMARY | 2024-03-15 14:37 | XMS_ITS | Encounter Summary ---
Author Organization [facility] Address [address] [place] [address]. [place], [place] [address] [place] [address] Care Team Providers Care Screen Printing Machine Operator Helper Name Role Phone Nikita Goodwin MD Primary [...] Generic Ximena GOODWIN Primary Care Provider Unavailable Nikita Goodwin MD Primary Care Provider Unavailable Md Generic Ximena GOODWIN Primary Care Provider Unavailable Md Generic Ximena GOODWIN Primary Care Provider Unavailable Md Generic Ximena GOODWIN Primary Care Provider Unavailable Md Generic Ximena GOODWIN Primary Care Provider Unavailable Encounter Details Date Type Department Care Team (Late st Contact Info) Description 04/01/2000 Emergency [facility] [place] [address] Orquidea Sherwood MD [address] [address] Social History Tobacco Use Types Packs/Day Years [...] on filedocumented in this encounter Care Teams Screen Printing Machine Operator Helper Relationship Specialty Start Date End Date [...]
--- OUTSIDE RECORDS SUMMARY | 2024-03-15 14:37 | XMS_ITS | Encounter Summary ---
Author Organization [facility] Address [facility]. [place], [place] [address] [place] [address] Care Team Providers Care Riveter Hand Name Role Phone Nikita Mares MD Primary Care Provider Unavailable Zachery Ryan MD Primary Care Provider Zachery Toth MD Primary Care Provider Zachery Toth MD Primary Care Provider Zachery Toth MD Primary Care Provider Zachery Toth MD Primary Care Provider Zachery Toth MD Primary Care Provider Nikita Newamn Md, MD Primary Care Provider Unavailable Encounter Details Date Type Department Care Team (Late st Contact Info) Description 04/22/2011 Abstract [facility] [address] [place] [address] Ayush Mitchell MD Social History Tobacco Use Types Packs/Day [...] as of this encounter Visit Diagnoses Diagnosis Dysuria documented in this encounter Care Teams Riveter Hand Relationship Specialty Start Date End Date Nikita Mares MD PCP - General 03/13/16 Zachery Ryan MD PCP - General 10/26/15 03/12/16 Zachery Ryan MD PCP - General 10/18/15 10/25/15 Zachery Ryan MD PCP - General 11/09/13 10/17/15 Zachery Ryan MD PCP - General 09/30/12 11/08/13 Zachery Ryan MD PCP - General 08/29/12 09/29/12 Zachery Ryan MD PCP - General 07/15/12 08/28/12 Nikita Mares, PCP - General 04/22/11 documented as of this encounter
--- OUTSIDE RECORDS SUMMARY | 2024-03-15 14:37 | XMS_ITS | Encounter Summary ---
Author Organization [facility] Address [address] [place] [address]. [place], [place] [address] [place] [address] Care Team Providers Care Harness Racing Handicapper Name Role Phone Nikita Goodwin MD Primary [...] Care Team (Late st Contact Info) Description 09/19/2003 Abstract [place] [address] [place] [address] Feroz Watkins MD Social History Tobacco Use Types Packs/Day [...] on filedocumented in this encounter Care Teams Harness Racing Handicapper Relationship Specialty Start Date End Date Nikita Goodwin MD PCP - General 03/13/16 Zachery Ryan MD PCP - General 10/26/15 03/12/16 Zachery Ryan MD PCP - General 10/18/15 10/25/15 Zachery Ryan, PCP - General 11/09/13 10/17/15 Zachery Ryan, PCP - General 09/30/12 11/08/13 aZchery Ryan, PCP - General 08/29/12 09/29/12 Zachery Ryan, PCP - General 07/15/12 08/28/12 , Generic Conversion, PCP - General 04/22/11 , Generic Conversion, PCP - General 04/10/11 , Generic Conversion, PCP - General 03/28/11 , Generic Conversion, PCP - General 01/20/11 2 , Generic Conversion, PCP - General 12/18/1001/19 , Generic Conversion, PCP - General 08/07/10 , Generic Conversion, PCP - General 04/19/10 documented as of this encounter
--- OUTSIDE RECORDS SUMMARY | 2024-03-15 14:37 | XMS_ITS | Encounter Summary ---
Author Organization [facility] Address [facility]. [place], [place] [address] [place] [address] Care Team Providers Care Road Driver Name Role Phone Nikita Mares MD [...] Care Team (Late st Contact Info) Description 10/31/2006 Abstract [facility] Emergency Room [address] [place] [address] Nikita Mares MD Social History Tobacco Use [...] on filedocumented in this encounter Care Teams Road Driver Relationship Specialty Start Date End Date [...]
--- OUTSIDE RECORDS SUMMARY | 2024-03-15 14:37 | XMS_ITS | Encounter Summary ---
Author Organization [facility] Address [address] [place] [address]. [place], [place] [address] [place] [address] Care Team Providers Care Meter Maintenance Person Name Role Phone Nikita Mares MD Primary [...] Care Team (Late st Contact Info) Description 12/26/2000 Abstract [facility] [address] [place], [place] [address] Nikita Mares MD Social History Tobacco Use [...] on filedocumented in this encounter Care Teams Meter Maintenance Person Relationship Specialty Start Date End Date Nikita [...]
--- OUTSIDE RECORDS SUMMARY | 2024-03-15 14:37 | XMS_ITS | Encounter Summary ---
Author Organization [facility] Address [address] [place] [address]. [place], [place] [address] [place] [address] Care Team Providers Care Cable Technician Name Role Phone Nikita Mares MD [...] Care Team (Late st Contact Info) Description 10/24/2006 Abstract [place] [address] [place], [place] [id number] Nikita Mares MD Social History Tobacco Use [...] on filedocumented in this encounter Care Teams Cable Technician Relationship Specialty Start Date End Date [...]
--- OUTSIDE RECORDS SUMMARY | 2024-03-15 14:37 | XMS_ITS | Encounter Summary ---
Author Organization [facility] Address [address] [place] [address]. [place], [place] [address] [place] [address] Care Team Providers Care Benefits Officer Name Role Phone Nikita Mares MD Primary [...] Care Team (Late st Contact Info) Description 05/10/2005 Abstract [facility] [address] [place], [place] [address] Nikita Mares MD Social History Tobacco Use [...] on filedocumented in this encounter Care Teams Benefits Officer Relationship Specialty Start Date End Date Nikita [...]
--- OUTSIDE RECORDS SUMMARY | 2024-03-15 14:37 | XMS_ITS | Encounter Summary ---
Author Organization [facility] Address [facility]. [place], [place] [address] [place] [address] Care Team Providers Care Reproductive Endocrinologist Name Role Phone Nikita Mares MD Primary [...] Care Team (Late st Contact Info) Description 08/07/2010 Abstract [facility] [address] [place] [address] Nikita Mares MD Social History Tobacco Use [...] this encounter Visit Diagnoses Diagnosis Sprain of ankle Sprain of ankle, unspecified site documented in this encounter Care Teams Reproductive Endocrinologist Relationship Specialty Start Date End Date Nikita [...] , Generic Conversion, PCP - General 12/18/1001/19 Md Generic Conversion, PCP - General 08/07/10 documented as of this encounter
--- OUTSIDE RECORDS SUMMARY | 2024-03-15 14:37 | XMS_ITS | Encounter Summary ---
Author Organization [facility] Address [address] [place] [address]. [place], [place] [address] [place] [address] Care Team Providers Care Environmental Studies Faculty Member Name Role Phone Md Generic Ximena GOODWIN Primary Care Provider Unavailable Zachery Ryan MD Primary Care Provider UnavailZachery Charlton MD Primary Care Provider UnavailZachery Charlton MD Primary Care Provider UnavailZachery Charlton MD Primary Care Provider UnavailZachery Charlton MD Primary Care Provider UnavailZachery Charlton MD Primary Care Provider Unavailpio baker Md Generic Ximena GOODIWN Primary Care Provider Unavailable Md Generic Ximena GOODWIN Primary Care Provider Unavailable Md Generic Ximena GOODWIN Primary Care Provider Unavailable Md Generic Ximena GOODWIN Primary Care Provider Unavailable Md Generic Conversion Primary Care Provider Unavailable Md Generic Conversion Primary Care Provider Unavailable Md Generic Conversion Primary Care Provider Unavailable Encounter Details Date Type Department Care Team (Late st Contact Info) Description 09/18/2007 Abstract [facility] [address] [place] [address] Matilda Curiel, [address] [place] [phone] Social History Tobacco Use Types Packs/Day Years [...] filedocumented in this encounter Care Teams Environmental Studies Faculty Member Relationship Specialty Start Date End Date Nikita [...]
--- OUTSIDE RECORDS SUMMARY | 2024-03-15 14:37 | XMS_ITS | Encounter Summary ---
Author Organization [facility] Address [address] [place] [address]. [place], [place] [address] [place] [address] Care Team Providers Care Mixing Plant Operator Name Role Phone Nikita Mares MD [...] Mares MD Primary Care Provider Unavailable Nikita Mraes MD Primary Care Provider Unavailable Nikita Mares MD Primary Care Provider Unavailable Nikita Mares MD Primary Care Provider Unavailable Encounter Details Date Type Department Care Team (Late st Contact Info) Description 06/19/2001 Abstract [place] [address] [place], [place] [address]179 Nikita Mares MD Social History Tobacco Use [...] on filedocumented in this encounter Care Teams Mixing Plant Operator Relationship Specialty Start Date End Date [...]
--- OUTSIDE RECORDS SUMMARY | 2024-03-15 14:37 | XMS_ITS | Encounter Summary ---
Author Organization [facility] Address [facility]. [place], [place] [address] [place] [address] Care Team Providers Care Chief Communications Officer Name Role Phone Nikita Mares MD [...] Care Team (Late st Contact Info) Description 03/28/2011 Emergency [facility] [place] [address] Edith Delarosa MD [address] [place], [place] [phone] Social History Tobacco Use Types Packs/Day Years Used Date Smoking Tobacco: Never Assessed Comments Unknown Sex and Gender Information Value Date Recorded Sex Assigned at Not on file Legal Sex Female 5:47 PM CDT Gender Identity Not on file Sexual Orientation Not on file documented as of this encounter Plan of Treatment Not on file documented as of this encounter Visit Diagnoses Diagnosis Headache(784.0) Headache documented in this encounter Care Teams Chief Communications Officer Relationship Specialty Start Date End Date [...] , Generic Conversion, PCP - General 03/28/11 documented as of this encounter
--- OUTSIDE RECORDS SUMMARY | 2024-03-15 14:37 | XMS_ITS | Encounter Summary ---
Author Organization [facility] Address [address] [place] [address]. [place], [place] [address] [place] [address] Care Team Providers Care Press Cleaner Name Role Phone Nikita Goodwin MD Primary [...] Care Team (Late st Contact Info) Description 08/26/2006 Abstract [facility] Emergency Room [address] [place] [address] Jeff Barfield MD Social History Tobacco Use Types Packs/Day [...] on filedocumented in this encounter Care Teams Press Cleaner Relationship Specialty Start Date End Date Nikita [...]
--- OUTSIDE RECORDS SUMMARY | 2024-03-15 14:37 | XMS_ITS | Encounter Summary ---
Author Organization [facility] Address [facility]. [place], [place] [address] [place] [address] Care Team Providers Care Elementary School Science Teacher Name Role Phone Nikita Mares MD Primary [...] Care Team (Late st Contact Info) Description 04/08/2002 Emergency [facility] [place] [address] Nikita Mares MD Social History Tobacco Use [...] on filedocumented in this encounter Care Teams Elementary School Science Teacher Relationship Specialty Start Date End Date [...]
--- OUTSIDE RECORDS SUMMARY | 2024-03-15 14:37 | XMS_ITS | Encounter Summary ---
Author Organization [facility] Address [facility]6 [facility]. [place], [place] [address] [place] [address] Care Team Providers Care Lockstitch Binder Name Role Phone Md Generic Ximena GOODWIN [...] Conversion Primary Care Provider Unavailable Md Generic Ximena GOODWIN Primary Care Provider Unavailable Encounter Details Date Type Department Care Team (Late st Contact Info) Description 09/08/[address] [facility] [address] [place] [address] Tanner Blas MD [address] [place] [phone] Social History Tobacco Use Types Packs/Day Years [...] on filedocumented in this encounter Care Teams Lockstitch Binder Relationship Specialty Start Date End Date Nikita [...]
--- OUTSIDE RECORDS SUMMARY | 2024-03-15 14:37 | XMS_ITS | Encounter Summary ---
Author Organization [facility] Address [address] [place] [address]. [place], [place] [address] [place] [address] Care Team Providers Care Hospice Administrator Name Role Phone Nikita Goodwin MD Primary [...] Nikita Goodwin MD Primary Care Provider Unavailable Encounter Details Date Type Department Care Team (Late st Contact Info) Description 1998 Abstract [place] [address] Nikita Goodwin MD Social History Tobacco Use [...] on filedocumented in this encounter Care Teams Hospice Administrator Relationship Specialty Start Date End Date [...]
--- OUTSIDE RECORDS SUMMARY | 2024-03-15 14:37 | XMS_ITS | Encounter Summary ---
Author Organization [facility] Address [address] [place] [address]. [place], [place] [address] [place] [address] Care Team Providers Care Electronic Science Teacher Name Role Phone Nikita Mares [...] Care Team (Late st Contact Info) Description 03/12/2001 Abstract [place] [address] [place] [address] Nikita Mares MD Social History Tobacco Use [...] on filedocumented in this encounter Care Teams Electronic Science Teacher Relationship Specialty Start Date End [...]
--- OUTSIDE RECORDS SUMMARY | 2024-03-15 14:37 | XMS_ITS | Encounter Summary ---
Author Organization [facility] Address [facility]. [place], [place] [address] [place] [address] Care Team Providers Care Juvenile Counselor Name Role Phone Nikita Mares MD Primary [...] Care Team (Late st Contact Info) Description 02/22/2012 Abstract [facility] [place] [address] [place] [phone] Zachery Ryan MD [address] [place] [address] Social History Tobacco Use Types Packs/Day Years Used Date Smoking Tobacco: Never Assessed Comments Unknown Sex and Gender Information Value Date Recorded Sex Assigned at Not on file Legal Sex Female 5:47 PM CDT Gender Identity Not on file Sexual Orientation Not on file documented as of this encounter Last Filed Vital Signs Vital Sign Reading Time Taken Comments Blood Pressure 100/50 02/22/2012 10:54 AM EMT INTERMEDIATE Pulse 66 02/22/2012 10:54 AM EMT INTERMEDIATE Temperature - - Respiratory Rate - - Oxygen Saturation - - Inhaled Oxygen Concentration - - Weight 43.1 kg (95 lb) 02/22/2012 10:54 AM EMT INTERMEDIATE Height - - Body Mass Index - - documented in this encounter Progress Notes * Nikita Bueno Md, MD - 02/22/2012 9:45 AM CST Reason For Visit Reason For Visit: New Patient Visit Chief Complaint 1. Anxiety 2. Depression 3. Suicidal Thoughts Chief Complaint Free Text: Establish care cutting History of Present Illness HPI Free Text: 1. Asthma: patient uses albuterol 1-2 times per month. Mild SOB at night 1-2 times at night. She mainly gets SOB with activity (like PE). no other treatment besides the albuterol. 2. Anxiety: school work is difficult currently in school. She struggles with school. A's and B's usually with 1 D. not worried about much else besides school. Malu is the best friend at school, but she has not been associating with friends lately at school. She reports they're annoying . She does spend time with her family though. Feeling down and sad lately, since September 2011. Cousin was shot and killed by his little sister accidentally. Mother reports that since that time, she's been cutting herself to make her feel better. Mother just found out recently. Mother reports she cries only when talking about the of her cousin. It has been occuring more frequently lately. She gets angry with various things. She has had more anger lately. The patient reports cutting every couple of days. She has had SI thoughts when her cousin . She does admit to some more recent SI, but she states that she's not going to do anything. She denies any auditory or visual hallucinations. 3. Menarche: First menstrual period January 24 2012. Mother reports the cutting symptoms are worse with that. ROS: Sinus congestion, headache. no blurry vision, double vision, chest pain, palpitations. mild SOB, wheezing as noted above. no Nausea, diarrhea. emesis with menses recently. resolved. no abdominalpain currently. no numbness tingling or weakness of UE/LE/Face, no joint pains. cutting noted to Left forearm. Depression noted. SI (passive noted). Review of Systems see above. Active Problems 1. Asthma 493.90 2. Chronic Pharyngitis Streptococcus 034.0 RECURRENT 3. Vision Problems V41.0 WEARS GLASSES. MYOPIA Past Medical History 1. Asthma 493.90 Family History 1. Family history of Asthma V17.5 SISTER, MATERNAL GRANDMOTHER Social History ?? Living With Parents ?? Never A Smoker ?? Never Drank Alcohol Current Meds 1. No Reported Medications Recorded; Record; Last Updated By: Enid Kaiser 2. ProAir HFA 108 (90 Base) MCG/ACT Inhalation Aerosol Solution; Therapy: (Recorded:22Feb2012) to Recorded; Dispense: 0 Days ; #: Sufficient AERS; Refill: 0; Record; Last Updated By: Zachery Ryan Allergies 1. No Known Drug Allergies No Known Drug Allergies Vitals Vital Signs [Data Includes: Current Encounter] 22Feb2012 10:54AM Temperature 98 F Heart Rate 66 Respiration 16 Systolic 100 Diastolic 50 Weight 95 lb Physical Exam Constitutional - General appearance: No acute distress, well appearing and well nourished. Head and Face - Head and face: Normocephalic, atraumatic. Palpation of the face and sinuses: Abnormal. Tenderness to palpation over maxillary sinuses, frontal sinuses. Eyes - Sclera clear bilaterally. Ears, Nose, Mouth, and Throat - External inspection of ears and nose: Normal without deformities ordischarge. Otoscopic examination: Tympanic membranes monzon, translucent with good bony landmarks andlight reflex. Canals patent without erythema. Nasal mucosa, septum, and turbinates: Abnormal. Bilateral red nasal congestion. Neck - Thyroid: No thyromegaly. Pulmonary - Respiratory effort: Normal respiratory rate and rhythm, no increased work of breathing.Auscultation of lungs: Clear bilaterally. Cardiovascular - Auscultation of heart: Regular rate and rhythm, normal S1 and S2, no murmur. No carotid bruits. Examination of extremities for edema and/or varicosities: Normal. Abdomen - Abdomen: Normal bowel sounds, soft, non-tender, no masses. Liver and spleen: No hepatomegaly or splenomegaly. Lymphatic - Palpation of lymph nodes in neck: No anterior or posterior cervical lymphadenopathy. Musculoskeletal - Muscle strength/tone: Normal. Skin - Left forearm with multiple shallow cuts (done by a clean razor blade per patient) over entire length of left forearm. Neurologic - Cranial nerves: Normal. Psychiatric - Orientation to person, place, and time: Normal. Mood and affect: Abnormal. Mood and Affect: depressed, sad and tearful. Assessment 1. Asthma 493.90 Discussion/Summary Discussion Summary Free Text: 1. Cutting with passive SI and Depression: Dr. Wyatt to see patient today. Passive SI noted. will fax physical to Dr. Wyatt's office today. patient to be evaluated today. 2. Asthma: F/U for further evaluation in 2-4 weeks depending on situation above. Signatures Electronically signed by : Zachery Ryan M.D.; Feb 22 2012 11:50AM (Author) INTERMEDIATE documented in this encounter Plan of Treatment Not on file documented as of this encounter Visit Diagnoses Not on filedocumented in this encounter Care Teams Juvenile Counselor Relationship Specialty Start Date End Date Nikita Mares MD PCP - General 03/13/16 Zachery Ryan MD PCP - General 10/26/15 03/12/16 Zachery Ryan MD PCP - General 10/18/15 10/25/15 Zachery Ryan MD PCP - General 11/09/13 10/17/15 Zachery Ryan MD PCP - General 09/30/12 11/08/13 Zachery Ryan MD PCP - General 08/29/12 09/29/12 Zachery Ryan MD PCP - General 07/15/12 08/28/12 Nikita Mares MD PCP - General 04/22/11 documented as of this encounter
--- OUTSIDE RECORDS SUMMARY | 2024-03-15 14:37 | XMS_ITS | Encounter Summary ---
Author Organization [facility] Address [facility] [place] [facility]. [place], [place] [address] [place] [address] Care Team Providers Care Pediatric Psychologist Name Role Phone Nikita Mares MD Primary [...] Care Team (Late st Contact Info) Description 01/26/2005 Emergency [facility] [place] [address] Nikita Mares MD Social History Tobacco Use [...] on filedocumented in this encounter Care Teams Pediatric Psychologist Relationship Specialty Start Date End Date Nikita [...]
--- OUTSIDE RECORDS SUMMARY | 2024-03-15 14:37 | XMS_ITS | Encounter Summary ---
Author Organization [facility] Address [address] [place] [address]. [place], [place] [address] [place] [address] Care Team Providers Care Postal Mail Carrier Name Role Phone Nikita Mares MD Primary [...] Care Team (Late st Contact Info) Description 10/27/2004 Abstract [place] [address] [place] [address] Nikita Mares MD Social History [...] on filedocumented in this encounter Care Teams Postal Mail Carrier Relationship Specialty Start Date End Date Nikita [...]
--- OUTSIDE RECORDS SUMMARY | 2024-03-15 14:37 | XMS_ITS | Encounter Summary ---
Author Organization [facility] Address [address] [place] [address]. [place], [place] [address] [place] [address] Care Team Providers Care Online Project Manager Name Role Phone Nikita Goodwin MD Primary [...] Care Team (Late st Contact Info) Description 12/16/1999 Abstract [facility] [address] [place] [address] Orquidea Sherwood MD [address] [address] Social History Tobacco Use Types Packs/Day Years [...] on filedocumented in this encounter Care Teams Online Project Manager Relationship Specialty Start Date End Date Nikita [...]
--- OUTSIDE RECORDS SUMMARY | 2024-03-15 14:37 | XMS_ITS | Encounter Summary ---
Author Organization [facility] Address [facility]. [place], [place] [address] [place] [address] Care Team Providers Care Applications Tester Name Role Phone Nikita Mares MD Primary [...] Care Team (Late st Contact Info) Description 09/17/2007 Abstract [facility] Emergency Room [address] [place] [address] Nikita Mares MD Social History Tobacco Use [...] on filedocumented in this encounter Care Teams Applications Tester Relationship Specialty Start Date End Date Nikita [...]
--- OUTSIDE RECORDS SUMMARY | 2024-03-15 14:37 | XMS_ITS | Encounter Summary ---
Author Organization [facility] Address [facility]. [place], [place] [address] [place] [address] Care Team Providers Care Full Time Paramedic Name Role Phone Nikita Mares MD Primary Care Provider Unavailable Zachery Ryan MD Primary Care Provider UnavailZachery Charlton MD Primary Care Provider UnavailZachery Charlton MD Primary Care Provider UnavailZachery Charlton MD Primary Care Provider UnavailZachery Charlton MD Primary Care Provider UnavailZachery Charlton MD Primary Care Provider UnavailNikita hednrickson Md, MD Primary Care Provider Unavailable Nikita Maers MD Primary Care Provider Unavailable Nikita Mares MD Primary Care Provider Unavailable Nikita Mares MD Primary Care Provider Unavailable Nikita Mares MD Primary Care Provider Unavailable Nikita Mares MD Primary Care Provider Unavailable Nikita Mares MD Primary Care Provider Unavailable Encounter Details Date Type Department Care Team (Late st Contact Info) Description 10/01/2004 Emergency [facility] [place] [address] Nikita Mares MD Social History Tobacco Use [...] on filedocumented in this encounter Care Teams Full Time Paramedic Relationship Specialty Start Date End Date Nikita [...]
--- OUTSIDE RECORDS SUMMARY | 2024-03-15 14:37 | XMS_ITS | Encounter Summary ---
Author Organization [facility] Address [address] [place] [address]. [place], [place] [address] [place] [address] Care Team Providers Care It Security Analyst Name Role Phone Nikita Mares MD Primary [...] Care Team (Late st Contact Info) Description 10/29/2002 Abstract [place] [address] [place] [address] Nikita Mares MD Social History [...] on filedocumented in this encounter Care Teams It Security Analyst Relationship Specialty Start Date End Date Nikita [...]
--- OUTSIDE RECORDS SUMMARY | 2024-03-15 14:37 | XMS_ITS | Encounter Summary ---
Author Organization [facility] Address [address] [place] [address]. [place], [place] [address] [place] [address] Care Team Providers Care Grants Assistant Name Role Phone Nikita Mares MD Primary [...] Care Team (Late st Contact Info) Description 11/12/2003 Abstract [place] [address] [place], [place] [id number] Nikita Mares MD Social History Tobacco Use [...] on filedocumented in this encounter Care Teams Grants Assistant Relationship Specialty Start Date End Date Nikita [...]
--- OUTSIDE RECORDS SUMMARY | 2024-03-15 14:37 | XMS_ITS | Encounter Summary ---
Author Organization [facility] Address [facility]. [place], [place] [address] [place] [address] Care Team Providers Care Engraver Lettering Name Role Phone Nikita Mares MD Primary [...] Care Team (Late st Contact Info) Description 12/18/[address] [facility] [address] [place] [address] Nikita Mares MD Social History Tobacco Use [...] Dysuria documented in this encounter Care Teams Engraver Lettering Relationship Specialty Start Date End Date Nikita [...] , Generic Conversion, PCP - General 12/18/1001/19 documented as of this encounter
--- OUTSIDE RECORDS SUMMARY | 2024-03-15 14:37 | XMS_ITS | Encounter Summary ---
Author Organization [facility] Address [address] [place] [address]. [place], [place] [address] [place] [address] Care Team Providers Care Popped Corn Oven Attendant Name Role Phone Md Generic Ximena GOODWIN [...] Care Team (Late st Contact Info) Description 02/10/1999 Abstract [facility] [address] [place] [address] Orquidea Sherwood MD [address] [address] Social History Tobacco Use Types Packs/Day Years [...] on filedocumented in this encounter Care Teams Popped Corn Oven Attendant Relationship Specialty Start Date End Date Nikita [...]
--- OUTSIDE RECORDS SUMMARY | 2024-03-15 14:37 | XMS_ITS | Encounter Summary ---
Author Organization [facility] Address [address] [place] [address]. [place], [place] [address] [place] [address] Care Team Providers Care Suspension Cord Tier Name Role Phone Nikita Goodwin MD Primary [...] Care Team (Late st Contact Info) Description 02/05/2001 Abstract [facility] [place] [address] Nikita Goodwin MD Social History Tobacco Use [...] on filedocumented in this encounter Care Teams Suspension Cord Tier Relationship Specialty Start Date End Date Nikita [...]
--- OUTSIDE RECORDS SUMMARY | 2024-03-15 14:37 | XMS_ITS | Encounter Summary ---
Author Organization [facility] Address [address] [place] [address]. [place], [place] [address] [place] [address] Care Team Providers Care Legal Word Processor Name Role Phone Nikita Goodwin MD Primary [...] Care Team (Late st Contact Info) Description 01/04/2003 Emergency [facility] [place] [address] Rk Norwood MD [address] [facility] [place] [address] Social History Tobacco Use Types Packs/Day Years [...] on filedocumented in this encounter Care Teams Legal Word Processor Relationship Specialty Start Date End Date [...]
--- OUTSIDE RECORDS SUMMARY | 2024-03-15 14:37 | XMS_ITS | Encounter Summary ---
Author Organization [facility] Address [facility]. [place], [place] [address] [place] [address] Care Team Providers Care Knowledge Manager Name Role Phone Md Generic Ximena GOODWIN Primary Care Provider Unavailable Zachery Ryan MD Primary Care Provider UnavailZachery Charlton MD Primary Care Provider UnavailZachery Charlton MD Primary Care Provider UnavailZachery Charlton MD Primary Care Provider UnavailZachery Charlton MD Primary Care Provider Unavaila Zachery Forrester MD Primary Care Provider Unavailpio baker Md [...] Care Team (Late st Contact Info) Description 04/29/2008 Abstract [facility] [address] [place] [address] Tanner Blas MD [address] [place] [phone] Social History Tobacco Use Types Packs/Day Years [...] on filedocumented in this encounter Care Teams Knowledge Manager Relationship Specialty Start Date End Date [...]
--- OUTSIDE RECORDS SUMMARY | 2024-03-15 14:37 | XMS_ITS | Encounter Summary ---
Author Organization [facility] Address [address] [place] [address]. [place], [place] [address] [place] [address] Care Team Providers Care Vice President Business & Corporate Development Name Role Phone Nikita Mares MD Primary [...] Care Team (Late st Contact Info) Description 08/08/2004 Abstract [place] [address] [place], [place] [id number] Nikita Mares MD Social History Tobacco Use [...] in this encounter Care Teams Vice President Business & Corporate Development Relationship Specialty Start Date End Date Nikita [...]
--- OUTSIDE RECORDS SUMMARY | 2024-03-15 14:50 | XMS_ITS | Continuity of Care Document ---
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 Plan of Treatment Reminders Order Date Submit Date Provider Last Modified By Organization Details Last Modified Time Details Appointments None recorded. Lab None recorded. Referral None recorded. Procedures None recorded. Surgeries salpingecto my, laparoscopi c (SURG) 2023 024 [facility] [place] [facility], [facility] [place] [address], [place], [address], 4 13:44:13 Imaging None recorded. Medication Orders None recorded. Patient TargetsNo targets recorded. Patient InstructionsNo instructions recorded. Reason for Referral None Reported. Problems Name Problem SNOMED Code Status Onset Date Resolution Date Notes Provider Name and Address Organization Details Recorded Time Pregnanc y 03269833 Completed 202202/18/2023 Olivia haines, [facility] 4 14:22:59 Asthma in pregnanc y 54942997924 103 Completed 1 tab daily slow fe with OJ Sue haines, [facility] 3 13:27:22 Past pregnanc y history of prematur e delivery 947189107 Completed second baby born 34-35 weeks gestatio n - M 09/30 - serial growth Sue haines, [facility] 3 13:27:22 Congenit al malforma tion 547035252 Completed first preg 2017- daughter pyloric stenosis - MFM 09/30 Sue Ferro [facility] 3 13:27:22 Gastroes ophageal reflux disease 883651022 Completed 2022 1 tab omeprazo le 20mg BID Sue Ferro [facility] 3 13:27:22 Contract ion 76424208 Completed Sue Ferro [facility] 3 13:27:22 Backache 429590223 Completed TENS unit donna oscar, Sue Ferro [facility] 3 13:27:22 Pregnanc y 33305987 Completed 202301/30/2024 Olivia Mccarthy [facility] 4 14:22:58 Past pregnanc y history of gestatio nal hyperten beryl 684485655 Completed Olivia Mccarthy [facility] 4 14:25:45 Problem Notes None recorded. Procedures Surgical History Date Name Laterality Status Provider Name and Address Organization Details Recorded Time 03/03/20 24 SALPINGECTOMY, LAPAROSCOPIC (SURG) completed Dalia Lara [facility] 03/03/2024 13:13:42 03/25/19 18 Date of Last Mammogram completed Brenna Wilks [facility] 08/22/2022 14:56:05 03/25/19 18 Breast augmentation w/implt completed Brenna Wilks [facility] 08/28/2022 17:09:06 03/25/19 18 excision of malignant tumor of breast completed Brenna Wilks [facility] 08/28/2022 17:09:17 03/25/19 05 tonsilectomy/dallas noids completed Brenna Wilks [facility] 01/04/2021 19:38:13 Imaging Results None recorded. Procedure Notes None recorded. Medical Equipment None Reported. Allergies Allergen ID Allergen Name Allergen Category Reaction Reaction Severity Criticality Documentation Date Start Date Code Code System Note Provider Name and Address Organization Details Recorded Time 11588 Cipro medicatio n Not available Not available Not available 01/04/202198644 3 RxNorm Brenna haines [facility] 11:50:32 56575 Levaquin medicatio n Not available Not available Not available 01/04/2021 60408 2 RxNorm Brenna haines [facility] 11:50:40 Medications Name Sig Start Date Stop Date Status Note LastModified by Organization Details LastModified Time dicloxacill in 500 mg capsule 01/29 completed Not Available Not Available Not Available doxycycline hyclate 100 mg capsule TAKE 1 CAPSULE (100 MG TOTAL) BY MOUTH 2 (TWO) TIMES DAILY FOR 7 DAYS. 08/22 completed Not Available Not Available Not Available fluconazole 150 mg tablet TAKE 1 TABLET BY MOUTH NOW, REPEAT 1 TABLET IN 48 HOURS 12/17 completed Not Available Not Available Not Available promethazin e 12.5 mg tablet TAKE 1 TABLET BY MOUTH FOUR TIMES DAILY 09/21 completed Not Available Not Available Not Available ondansetron HCl 4 mg tablet TAKE 1 TABLET BY MOUTH EVERY 4 TO 6 HOURS NEEDED 09/21 completed Not Available Not Available Not Available metronidazo le 500 mg tablet TAKE 1 TABLET BY MOUTH TWICE DAILY FOR 7 DAYS. DO NOT CONSUME ALCOHOL DURING AND UP TO 1 DAY AFTER USE 12/17 completed Not Available Not Available Not Available nifedipine ER 30 mg tablet,exte nded release TAKE 1 TABLET BY MOUTH ONCE DAILY NEXT DOSE DUE AT 6 PM 12/17 completed Not Available Not Available Not Available sulfamethox azole 800 mg-trimetho prim 160 mg tablet TAKE 1 TABLET BY MOUTH TWICE DAILY FOR 10 DAYS 02/24 completed Not Available Not Available Not Available amoxicillin 875 mg tablet TAKE 1 TABLET BY MOUTH TWICE DAILY FOR 10 DAYS 09/21 completed Not Available Not Available Not Available famotidine 20 mg tablet TAKE 1 TABLET BY MOUTH TWICE DAILY NEEDED FOR HEARTBURN OR REFLUX 12/17 completed Not Available Not Available Not Available cephalexin 500 mg capsule TAKE 1 CAPSULE BY MOUTH EVERY 6 HOURS FOR 7 DAYS 12/17 completed Not Available Not Available Not Available ibuprofen 600 mg tablet TAKE 1 TABLET BY MOUTH EVERY 6 HOURS NEEDED FOR PAIN, FEVER OR HEADACHES 12/17 completed Not Available Not Available Not Available methylpredn isolone 4 mg tablets in a dose pack TAKE BY MOUTH DIRECTED ON INSIDE OF PACKAGE 12/17 completed Not Available Not Available Not Available albuterol sulfate HFA 90 mcg/actuati on aerosol inhaler INHALE 2 PUFFS BY MOUTH EVERY 4 HOURS NEEDED FOR WHEEZING active Not Available Not Available No t Available sertraline 50 mg tablet TAKE 1/2 (ONE-HALF ) TAB BY MOUTH DAILY FOR 1 WEEK, THEN INCREASE TO 1 TAB BY MOUTH DAILY AFTER THIS 10/24 completed Not Available Not Available Not Available metoclopram mariah 10 mg tablet Take 1 tablet every 6-8 hours by oral route as needed. 10/24 completed Not Available Not Available Not Available amoxicillin 875 mg-potassiu m clavulanate 125 mg tablet TAKE 1 TABLET BY MOUTH TWICE DAILY FOR 10 DAYS 12/17 completed Not Available Not Available Not Available cyclobenzap rine 5 mg tablet TAKE 1 TABLET BY MOUTH EVERY 8 HOURS NEEDED 11/28 completed Not Available Not Available Not Available nitrofurant oin monohydrate /macrocryst als 100 mg capsule Take 1 capsule every 12 hours by oral route for 7 days. 01/29 completed Not Available Not Available Not Available Depo-SubQ provera 104 104 mg/0.65 mL subcutaneou s syringe INJECT 1 SYRINGE SUBCUTANE OUSLY ONCE EVERY 12-13 WEEKS 12/17 completed Not Available Not Available Not Available active Not Available Not Avai lable Not Available FeroSul 325 mg (65 mg iron) tablet TAKE 1 TABLET BY MOUTH ONCE DAILY 12/17 completed Not Available Not Available Not Available Shelby 30 mg tablet Take 1 tablet by oral route for 1 day. active Not Available Not Available No t Available 28 mg iron-800 mcg tablet TAKE 1 TABLET BY MOUTH EVERY NIGHT AT BEDTIME 10/24 completed Not Available Not Available Not Available Vitals Date Recorded Body height Body mass index (BMI) Body weight Systolic blood pressure Diastolic blood pressure Provider Name and Address Organization Details Last Updated DateTime 01/30/2024 160.02 cm 22 kg/m2 46764.45 g 118 mm[Hg] 83 mm[Hg] Olivia Fabio [facility] 14:21:34 Social History Question Answer Notes LastModified by Organizat ion Details LastModified Time Tobacco Smoking Status Never Smoker Ele Rodríguez yancy, [facility] 09/21/2022 09:38:50 What Is Your Level Of Alcohol Consumption? None Information not available 01/04/2021 Are You Blind Or Do You Have Difficulty Seeing? No Information n ot available 01/04/2021 What Is Your Level Of Caffeine Consumption? Occasional [email or web address] Information not available 01/04/2021 In The 14 Days Before Symptom Onset, Have You Had Close Contact With A Laboratory-confirm ed COVID-19 While That Case Was Ill? No [email or web address] Information n ot available 01/04/2021 In The 14 Days Before Symptom Onset, Have You Had Close Contact With A Person Who Is Under Investigation For COVID-19 While That Person Was Ill? No [email or web address] Information not available 01/04/2021 Have You Been To An Area Known To Be High Risk For COVID-19? No [email or web address] Information not available 01/04/2021 Are You Deaf Or Do You Have Serious Difficulty Hearing? No [email or web address] Information not available 01/04/2021 What Type Of Diet Are You Following? REGULAR [email or web address] Information n ot available 01/04/2021 Do You Use Your Seat Belt Or Car Seat Routinely? Yes [email or web address] Information not available 01/04/2021 Do You Have Smoke And Carbon Monoxide Detectors In Your Home? Yes [email or web address] Information not available 01/04/2021 Do You Feel Stressed (tense, Restless, Nervous, Or Anxious, Or Unable To Sleep At Night)? [id number] [email or web address] Information not available 01/04/2021 Do You Use Any Illicit Or Recreational Drugs? No [email or web address] Information not available 01/04/2021 Do You Use Sunscreen Routinely? Yes [email or web address] Information not available 01/04/2021 Has Tobacco Cessation Counseling Been Provided? No [email or web address] Information not available 09/21/2022 Do You Or Have You Ever Used Any Other Forms Of Tobacco Or Nicotine? No Information not available 09/21/2022 Sex: Unknown Functional Status Question Answer Note LastModified by Organizat ion Details LastModified Time Do you have difficulty walking or climbing stairs? No [email or web address] Information not available 09/21/2022 Are you able to walk? YESWOREST [email or web address] Information not available 01/04/2021 Are you able to care for yourself? Yes [email or web address] Information not available 09/21/2022 Do you have difficulty dressing or bathing? No [email or web address] Information not available 09/21/2022 What is your exercise level? Occasional [email or web address] Information not available 01/04/2021 Mental Status None recorded. Family History Relationship Description Onset Age of this Age Resolved Age Notes LastModified by Organization Details LastModified Time Paternal Grandmother Malignant tumor of breast [email or web address] Not available 11/21 11:12:04 Paternal Grandmother Heart disease [email or web address] Not available 11/21 11:12:04 Paternal Grandmother Diabetes mellitus [email or web address] Not available 11/21 11:12:04 Paternal Grandmother Hypertensive disorder [email or web address] Not available 11/21 11:12:04 Paternal Grandmother Cyst of ovary [email or web address] Not available 2022 15:42:46 Paternal Grandmother Seizure disorder [email or web address] Not available 2022 15:42:46 Maternal Grandmother Heart disease [email or web address] Not available 11/21 11:12:04 Maternal Grandmother Diabetes mellitus [email or web address] Not available 11/21 11:12:04 Maternal Grandmother Hypertensive disorder [email or web address] Not available 11/21 11:12:04 Maternal Grandmother Cyst of ovary [email or web address] Not available 2022 15:42:46 Mother Cyst of ovary [email or web address] Not available 2022 15:42:46 Sister Cyst of ovary [email or web address] Not available 2022 15:42:46 Maternal Uncle Disorder of thyroid gland [email or web address] Not available 11/21 11:12:04 Medical History Condition Response Other Y Blood Transfusion N Dermatologic Disorders N Gestational Diabetes N Anxiety Disorder N Autoimmune disease N Arthritis N Polyps N Infertility N Acid Reflux (GERD) N Cancer N Varicosities N Stroke N Neurologic/Epilepsy N Fibromyalgia N Headaches N Kidney Disease N Heart Problems N Kidney or Bladder Problems N Eating Disorder N Art (IVF or FET) N Hepatitis/Liver Disease N No Past Medical History N Urinary Tract Infection Y Asthma Y Trauma/Violence N Thrombophilias N Allergies (Food, seasonal, environmental ) Y Breast Cancer N Drug/Latex Allergies/Reactions N Lung Disease N Defects or Inherited Disease N Breast Problem Y Hematologic disorders N Anesthesia Complications N History of STI Y Deep Vein Thrombosis N Polycystic ovary syndrome N History of abnormal pap N Endometriosis N High Cholesterol N Thyroid Problems N GI Problems N Anemia N Psychiatric Illness N Ovarian Cancer N Diabetes N Pulmonary (TB, Asthma) N Eczema N Abuse/Domestic Violence N Depression/ depression N Heart Disease N Pre-Eclampsia Y Hypertension Y Osteoporosis N Gynecological History Statement/Question Response Abnormal Pap N Date of Last Mammogram 03/25/2017 Flow Light Date of LMP 01/27/2024 On BCP's at Conception? Y STIs/STDs Y HPV Vaccine Y Duration of Flow (days) 1 Current Control Method Condoms Sexually Active? Y Menses Monthly N Date of Last Pap Smear Sexual Problems? N Desired Control Method Sterilizati on LMP Definite Obstetrics History GPAL:G 6 P 2 1 2 3 Type Value Full Term 2 Spontaneous 2 Premature 1 Living 3 Total 6 Past Encounters Encounter ID Performer Location Encounter Start Date Encounter Closed Date Diagnosis/Indication Diagnosis SNOMED-CT Code Diagnosis ICD10 Code [id number] Tal Green MD [place] [address] [address] 01/30/2024 13:50:09 01/30/2024 15:01:29 Female sterilization 09249535 Z30.2 care 10207501 8 Z39.2 Health Concerns Section Related Observation LastModified by Organization Detai ls LastModified Time None Recorded Concern Status LastModified by Organization Details LastModified Time None Recorded Payers Encounter Date Sequence Insurance Name Policy Number Policy Khalil Covered Member ID Khalil Member ID Guarantor Name 01/30/2024 1 [place] [id number] Arian Lea [id number] Mariam Lea 01/30/2024 2 [place] [facility] Mariam Lea [id number] Mariam Lea Notes Date Note Type Note Provider Name and Address Organization Details Recorded Time 01/30/2024 text/html this patient is a 23-year-old female presents for follow-up. Her baby is doing well. Her baby is . She is doing well. Her mood is good. She has stopped bleeding. She has had sex, used a condom. she would like salpingectomy. We agreed to proceed with a salpingectomy. The patient understands the procedure. The procedure was described to the patient in great detail. the patient also understands the risks. The risks were also explained in detail. She understands that injuries May occur during surgery. She understands these injuries can result in hospitalization, more surgery, and severe illness. She understands there is risk of hemorrhage and infection. Tal Green MD [address], [place], [address], [facility] 01/30/2024 14:53:23 OBGyn Episode Ob Episode Information Episode Created Date Number of Fetuses Patient Bloodtype Patient rh Status Prepregnancy Weight lbs Domestic Partner Domestic Partner Phone Father Name Stablehand Status 12/18/19 24 1 A Positive Arian CLOSED Fetus Data First Name Last Name Admitted to NICU Weight (g) Sex Living Outcome Pediatric Complications Fetus ID Race Codes Race Delivery Type Greyso n true M [id number] Vaginal Delivery Problems Problem Notes PT is here for ob visit. She transferred care. She would like to deliver at [place]. She has hx of labor and pre-eclampsia. She has been monitoring her bp and they have been good. She tried to have her 3 hr gtt on 12/13 but passed out with blood draw so did not get blood for the 3 hr but did get 1hr and 2 hr results. Her fasting results were 85, 1hr was 144, and 2hr was 126. She would also like to discuss tubal ligation. Pt is scheduled with [facility] on 12/15, 12/18, 12/22, 12/25, 12/29, 01/01 Problem Name Start Date End Date Resolution Snomed Code Not e Past history of ge stational hypertension [id number] Angie Calculation ANGIE Calculation Method Initial Angie Date Initial Exam Date Initial Exam Provider Initial Ultrasound Date Last Menstrual Period Date Ultra Sound Weeks Gestation Conception by IVF Embryo Age at Transfer Date of Transfer 12/18/19 22 0 Eighteen To Twenty Week Angie Update Ultra Sound Date Fundal Height At Umbil Quickening Date Ultra Sound Latest Weeks Gestation Final Angie Confirmed By Final Angie Confirmed Date Final Angie Date Ultra Sound Latest Days Gestation 0 02/15/20 24 0 Pre- Flowsheet Flowsheet Date 12/18/2023 Tee Score Blood Edema Fundus Height Fundus Units Glucose Ketones Leukocytes Nitrite Labor Signs Protein Cervic Dilation Cervic Effacement Cervic Station 32 cm Type Weight in lbs Pre/Post Dialysis Refused Weight 138.685514337069 BP Diastolic BP Location Tested BP Systolic BP Type 78 L arm 114 sitting Fetus Heart Rate Present A 144 Fetus Movement A Yes Comments this patient is a 23 year-ol d mutliparous female at 31 weeks' gestation who presents for initial care. She has a history of term vaginal births. Her medical, surgical, obstetric history is unremarkable. She is vaccinated. She was given precautions recommendations for . We talked about vaccines in . Talked about care in detail. She is having genetic testing. She had a normal 12 week ultrasound. To begin routine care. Flowsheet Date 12/26/2023 Tee Score Blood Edema Fundus Height Fundus Units Glucose Ketones Leukocytes Nitrite Labor Signs Protein Cervic Dilation Cervic Effacement Cervic Station Type Weight in lbs Pre/Post Dialysis Refused BP Diastolic BP Location Tested BP Systolic BP Type Fetus Heart Rate Present Fetus Movement Comments Flowsheet Date 01/30/2024 Tee Score Blood Edema Fundus Height Fundus Units Glucose Ketones Leukocytes Nitrite Labor Signs Protein Cervic Dilation Cervic Effacement Cervic Station Type Weight in lbs Pre/Post Dialysis Refused Weight 124.853734296133 BP Diastolic BP Location Tested BP Systolic BP Type 83 L arm 118 sitting Fetus Heart Rate Present Fetus Movement Comments Menstrual History Last Menstrual Date Menses Monthly On Bcp Conception Prior Menses Frequency Hcg Plus Date Menarche Onset Age false true Delivery Information Delivery Date Delivery Type Labor Anesthesia Weeks Gestation Incision Type Labor Labor Length Hrs Delivered By Post Complications Tubal Sterilization Discharge Date Comments 4 Sponta neous 32.6 true Kong Russell MD Discharge Information Feeding Method Contraceptive Method Maternal HG B and HCT Levels
--- OUTSIDE RECORDS SUMMARY | 2024-03-15 14:50 | XMS_ITS | Continuity of Care Document ---
Author Organization [facility] [place] Address [address] [place] [address] Care Team Providers Care Product Examiner Name Role Phone LORIN CASILLAS Primary Care Provider Assessment No assessment recorded. Plan of Treatment Reminders Order Date Submit Date Provider Last Modified By Organization Details Last Modified Time Details Appointments None record ed. Lab None record ed. Referral None record ed. Procedures None record ed. Surgeries None record ed. Imaging None record ed. Medication Orders None record ed. Patient TargetsNo targets recorded. Patient InstructionsNo instructions recorded. Reason for Referral None Reported. Problems Name Problem SNOMED Code Status Onset Date Resolution Date Notes Provider Name and Address Organization Details Recorded Time Pregnanc y 83878070 Completed 202202/18/2023 Olivia haines, [facility] 4 14:22:59 Asthma in pregnanc y 04698354711 103 Completed 1 tab daily slow fe with OJ Sue haines, [facility] 3 13:27:22 Past pregnanc y history of prematur e delivery 046945971 Completed second baby born 34-35 weeks gestatio n - [facility] 09/30 - serial growth Sue haines, [facility] 3 13:27:22 Congenit al malforma tion 507896220 Completed first preg 2017- daughter pyloric stenosis - [facility] 09/30 Sue haines [facility] 3 13:27:22 Gastroes ophageal reflux disease 389115781 Completed 2022 1 tab omeprazo le 20mg BID Markmariela EspinosaPillo [facility] 3 13:27:22 Contract ion [id number] Completed Markmariela Dukesle [facility] 3 13:27:22 Backache 726183062 Completed TENS unit recommen d., Markmariela EspinosaPillo [facility] 3 13:27:22 Pregnanc y 11642249 Completed 202301/30/2024 Olivia Mccarthy [facility] 4 14:22:58 Past pregnanc y history of gestatio nal hyperten beryl 309415223 Completed Olivia Mccarthy [facility] 4 14:25:45 Problem Notes None recorded. Procedures Surgical History Date Name Laterality Status Provider Name and Address Organization Details Recorded Time 03/03/20 24 SALPINGECTOMY, LAPAROSCOPIC (SURG) completed Dalia Lara [facility] 03/03/2024 13:13:42 03/25/19 18 Date of Last Mammogram completed [facility] 08/22/2022 14:56:05 03/25/19 18 Breast augmentation w/implt completed [facility] 08/28/2022 17:09:06 03/25/19 18 excision of malignant tumor of breast completed Brenna [facility] 08/28/2022 17:09:17 03/25/19 05 tonsilectomy/[place] noids completed [facility] 01/04/2021 19:38:13 Imaging Results None recorded. Procedure Notes None recorded. Medical Equipment None Reported. Allergies Allergen ID Allergen Name Allergen Category Reaction Reaction Severity Criticality Documentation Date Start Date Code Code System Note Provider Name and Address Organization Details Recorded Time 01729 Cipro medicatio n Not available Not available Not available 01/04/202180293 3 RxNorm Brenna Paultara haines [facility] 11:50:32 88775 Levaquin medicatio n Not available Not available Not available 01/04/2021 40707 2 RxNocayden Scottina Lashaun haines [facility] 11:50:40 Medications Name Sig Start Date [...] and Address Organization Details Last Updated DateTime 02/25/2024 160.02 cm 21.8 kg/m2 50939.86 g 111 mm[Hg] 77 mm[Hg] Olivia Fabio [facility] 10:28:25 Social History Question Answer Notes LastModified by Organizat ion Details LastModified Time Tobacco Smoking Status Never Smoker Ele Rodríguez yancy, [facility] 09/21/2022 09:38:50 What Is Your Level Of Alcohol Consumption? None [email or web address] Information not available 01/04/2021 Are You Blind Or Do You Have Difficulty Seeing? No [email or web address] Information n ot available 01/04/2021 What Is Your Level Of Caffeine Consumption? Occasional [email or web address] Information not available 01/04/2021 In The 14 Days Before Symptom Onset, Have You Had Close Contact With A Laboratory-confirm ed COVID-19 While That Case Was Ill? No [email or web address] Information n ot available 01/04/2021 In The 14 Days Before Symptom Onset, Have You Had Close Contact With A Person Who Is Under Investigation For COVID-19 While That Person Was Ill? No [email or web address] Information not available 01/04/2021 Have You Been To An Area Known To Be High Risk For COVID-19? No [email or web address] Information not available 01/04/2021 Are You Deaf Or Do You Have Serious Difficulty Hearing? No [email or web address] Information not available 01/04/2021 What Type Of Diet Are You Following? REGULAR [email or web address] Information n ot available 01/04/2021 Do You Use Your Seat Belt Or Car Seat Routinely? Yes [email or web address] Information not available 01/04/2021 Do You Have Smoke And Carbon Monoxide Detectors In Your Home? Yes [email or web address] Information not available 01/04/2021 Do You Feel Stressed (tense, Restless, Nervous, Or Anxious, Or Unable To Sleep At Night)? [id number] [email or web address] Information not available 01/04/2021 Do You Use Any Illicit Or Recreational Drugs? No [email or web address] Information not available 01/04/2021 Do You Use Sunscreen Routinely? Yes [email or web address] Information not available 01/04/2021 Has Tobacco Cessation Counseling Been Provided? No [email or web address] Information not available 09/21/2022 Do You Or Have You Ever Used Any Other Forms Of Tobacco Or Nicotine? No [email or web address] Information not available 09/21/2022 Sex: Unknown Functional Status Question Answer Note LastModified by Organizat ion Details LastModified Time Do you have difficulty walking or climbing stairs? No [email or web address] Information not available 09/21/2022 Are you able to walk? YESWOREST Information not available 01/04/2021 Are you able to care for yourself? Yes [email or web address] Information not available 09/21/2022 Do you have difficulty dressing or bathing? No [email or web address] Information not available 09/21/2022 What is your exercise level? Occasional Information not available 01/04/2021 Mental Status None recorded. Family History Relationship Description Onset Age of this Age Resolved Age Notes LastModified by Organization Details LastModified Time Paternal Grandmother Malignant tumor of breast [email or web address] Not available 11/21 11:12:04 Paternal Grandmother Heart disease [email or web address] Not available 11/21 11:12:04 Paternal Grandmother Diabetes mellitus [email or web address] Not available 11/21 11:12:04 Paternal Grandmother Hypertensive disorder [email or web address] Not available 11/21 11:12:04 Paternal Grandmother Cyst of ovary [email or web address] Not available 2022 15:42:46 Paternal Grandmother Seizure disorder [email or web address] Not available 2022 15:42:46 Maternal Grandmother Heart disease [email or web address] Not available 11/21 11:12:04 Maternal Grandmother Diabetes mellitus [email or web address] Not available 11/21 11:12:04 Maternal Grandmother Hypertensive disorder [email or web address] Not available 11/21 11:12:04 Maternal Grandmother Cyst of ovary [email or web address] Not available 2022 15:42:46 Mother Cyst of ovary [email or web address] Not available 2022 15:42:46 Sister Cyst of ovary [email or web address] Not available 2022 15:42:46 Maternal Uncle Disorder of thyroid gland [email or web address] Not available 11/21 11:12:04 Medical History Condition [...] Diagnosis/Indication Diagnosis SNOMED-CT Code Diagnosis ICD10 Code [id number] MD Gael Horton [address] [address] 01/30/2024 13:50:09 01/30/2024 15:01:29 Female sterilization 38531135 Z30.2 care 12138725 8 Z39.2 [id number] MD Gael Horton [address] [address] 02/25/2024 10:17:49 02/25/2024 10:55:21 Female sterilization [id number] Z30.2 Health Concerns Section Related Observation LastModified by Organization Detai ls LastModified Time None Recorded Concern Status LastModified by Organization Details LastModified Time None Recorded Payers Encounter Date Sequence Insurance Name Policy Number Policy Khalil Covered Member ID Khalil Member ID Guarantor Name 02/25/2024 1 [place] [id number] Arian Lea [id number] Mariam Lea 02/25/2024 2 [place] [facility] Mariam Lea [id number] Mariam Lea Notes Date Note Type Note Provider Name and Address Organization Details Recorded Time 02/25/2024 text/html this patient is a 23-year-old female who desires female sterilization. We have agreed to perform laparoscopic bilateral salpingectomy The patient understands the procedure. The procedure [...] infection. Tal Green MD [address], [place], [address], [facility] 02/25/2024 10:54:22 OBGyn Episode Ob Episode Information Episode Created Date Number of Fetuses Patient Bloodtype Patient rh Status Prepregnancy Weight lbs Domestic Partner Domestic Partner Phone Father Name Direct Care Supervisor Status 12/18/19 24 1 A Positive Arian CLOSED Fetus Data First Name Last Name Admitted to NICU Weight (g) Sex Living Outcome Pediatric Complications Fetus ID Race Codes Race Delivery Type Greyso n true M [id number] Vaginal Delivery Problems Problem Notes PT is here for ob visit. She transferred care. She would like to deliver at [place]. She has hx of labor and pre-eclampsia. [...] discuss tubal ligation. Pt is scheduled with [facility] on 12/15, 12/18, 12/22, 12/25, 01/01 Problem Name Start Date End Date Resolution Snomed Code Not e Past history of ge stational hypertension [id number] Angie Calculation ANGIE Calculation Method Initial Angie [...] Latest Days Gestation 0 02/15/20 24 0 Pre-leann Flowsheet Flowsheet Date 12/18/2023 Tee Score Blood Edema Fundus Height Fundus Units Glucose Ketones Leukocytes Nitrite Labor Signs Protein Cervic Dilation Cervic Effacement Cervic Station 32 cm Type Weight in lbs Pre/Post Dialysis Refused Weight 138.472983360155 BP Diastolic BP Location Tested BP Systolic [...] Weight in lbs Pre/Post Dialysis Refused Weight 124.156917740773 BP Diastolic BP Location Tested BP Systolic [...]
--- OUTSIDE RECORDS SUMMARY | 2024-03-15 14:50 | XMS_ITS | Data Portability ---
Author Organization [facility] Address [address] [place] [address] [place] [address] Care Team Providers Care Portable Track Crew Chief Name Role Phone LORIN CASILLAS Primary Care Provider [phone] Assessment Encounter Date Assessment Date Assessment LastModified by Organization Details LastModified Time 12/10/2022 12/10/2022 Patient is ___weeks . Discussed plan. [email or web address] Not available 12/10/2022 15:59:15 Plan of Treatment Reminders Order Date Submit Date Provider Last Modified By Organization Details Last Modified Time Details Appointments None recorded. Lab culture, urine 2023 024 [facility] (Lab), [address], [place], [address], 17:26:54 urinalysis, dipstick 2023 024 [email or web address] [address] [place], [address], [place], [address], 17:20:57 Referral None recorded. Procedures None recorded. Surgeries salpingecto my, laparoscopi c (SURG) 2023 024 [facility] [address] [address], [place], [address], 13:44:13 Imaging None recorded. Medication Orders Macrobid 100 mg capsule 2023 024 [facility] [address] [employer], [address] [place], [address], 14:23:13 Patient TargetsNo targets recorded. Patient InstructionsNo instructions recorded. Reason for Referral None Reported. Results Created Date Observation Date Name Description Value Unit Range Abnormal Flag Note LastModifiedBy Organization Detail LastModifiedTime 12/06/1912/05/2022 HEMAT OCRIT (HCT) HCT 35.7 % (based on docume nted legal sex) 37.4-4 8.3 low Not Available [facility] (Lab) [address], [place], [address], 12/06/2022 06:15:19 12/06/1912/05/2022 HEMOG LOBIN (HGB) HGB 10.6 g/dL (based on docume nted legal sex) 11.9-1 5.8 low Not Available [facility] (Lab) [address], [place], [address], 12/06/2022 06:15:19 12/06/19 23 12/05/2022 GTT - GESTA CARLO L CHEMO N, ACOG OB glucose, 1 hour screen 94 mg/dL 70-139 Not Available [facility] (Lab) [address], [place], [address], 12/06/2022 06:15:20 12/06/1912/05/2022 HIV 1/2 ANTIG EN/AN TIBOD Y, REFLE X CONFI RMATI ON HIV antigen/anti body Nonrea ctive nonrea ctive HIV-1 antig en and HIV-1 /HIV- 2 antib odies were not detec collin. No labor atory evide nce of HIV infec tion. Not Available [facility] (Lab) [address], [place], [address], 12/06/2022 06:15:20 12/06/1912/05/2022 urina lysis , dipst ick Leukocytes trace Not Available [facility] [address], [place], [address], 12/05/2022 13:11:40 12/06/19 23 12/05/2022 urina lysis , dipst ick Nitrite normal Not Available [place] [address], [place], [address], 12/05/2022 13:11:40 12/06/19 23 12/05/2022 urina lysis , dipst ick Urobilinogen normal Not Available [facility] [address], [place], [address], 12/05/2022 13:11:40 12/06/19 23 12/05/2022 urina lysis , dipst ick Protein trace Not Available [place] [address], [place], [address], 12/05/2022 13:11:40 12/06/19 23 12/05/2022 urina lysis , dipst ick pH 8 Not Available [place] [address], [place], [address], 12/05/2022 13:11:40 12/06/19 23 12/05/2022 urina lysis , dipst ick Specific [place] 1.020 Not Available [facility] [address], [place], [address], 12/05/2022 13:11:40 12/06/19 23 12/05/2022 urina lysis , dipst ick Ketone normal Not Available [place] [address], [place], [address], 12/05/2022 13:11:40 12/06/19 23 12/05/2022 urina lysis , dipst ick Bilirubin normal Not Available [facility] [address], [place], [address], 12/05/2022 13:11:40 12/06/19 23 12/05/2022 urina lysis , dipst ick Glucose normal Not Available [place] [address], [place], [address], 12/05/2022 13:11:40 12/06/19 23 12/05/2022 urina lysis , dipst ick Appearance normal Not Available [facility] [address], [place], [address], 12/05/2022 13:11:40 12/06/19 23 12/05/2022 urina lysis , dipst ick Color normal Not Available [place] [address], [place], [address], 12/05/2022 13:11:40 12/26/19 24 12/26/2023 CULTU RE: URINE result report SEE RESULT S BELOW Test: Cultu re: Urine Speci men Sourc e: Urine - Clean Catch Speci men Type: Urine Speci men Date: 2023 1631 Resul t Date: 2023 1624 Resul t Statu s: Final resul t Abnor mal: No Resul ting Lab: [facility] [address] [facility] [facility] [address] Tel: CULTU RE ----- ----- ----- --- Organ ism(s ) consi stent with uroge nital or skin marcos . Repea t cultu re if sympt oms indic ate. Not Available [facility] (Lab) [address], [place], [address], 12/28/2023 17:26:54 12/26/19 24 12/26/2023 urina lysis , dipst ick Leukocytes +2 Not Available [facility] [address], [place], [address], 12/26/2023 17:18:14 12/26/19 24 12/26/2023 urina lysis , dipst ick Protein +1 Not Available [place] [address], [place], [address], 12/26/2023 17:18:14 12/26/19 24 12/26/2023 urina lysis , dipst ick Blood + Not Available [place] [address], [place], [address], 12/26/2023 17:18:14 12/26/19 24 12/26/2023 urina lysis , dipst ick Ketone +3 Not Available [place] [address], [place], [address], 12/26/2023 17:18:14 11/28/19 23 09/26/2022 US, obste tric, follo w-up No observ ation record ed. [email or web address] [facility] [place], [address], 11/30/2022 15:06:08 12/12/19 23 12/11/2022 US, obste tric, follo w-up No observ ation record ed. [email or web address] [facility] [address] [place], [address], 12/13/2022 14:13:55 12/12/19 24 12/11/2023 US, obste tric, follo w-up No observ ation record ed. TANIAFormerly named [facility] [address], [place], [address], 12/27/2023 04:05:32 Result Notes None recorded. Problems Name Problem SNOMED Code Status Onset Date Resolution Date Notes Provider Name and Address Organization Details Recorded Time Pregnanc y 34233682 Completed 202202/18/2023 Olivia haines, [facility] 14:22:59 Asthma in pregnanc y 01731400533 103 Completed 1 tab daily slow fe with OJ Britaney Pillo [facility] 3 13:27:22 Past pregnanc y history of prematur e delivery 004798366 Completed second baby born 34-35 weeks gestatio n - [facility] 09/30 - serial growth Sue Ferro [facility] 3 13:27:22 Congenit al malforma tion 603376389 Completed first preg 2017- daughter pyloric stenosis - [facility] 09/30 Sue Ferro [facility] 3 13:27:22 Gastroes ophageal reflux disease 151880181 Completed 2022 1 tab omeprazo le 20mg BID Sue Ferro [facility] 3 13:27:22 Contract ion [id number] Completed Sue Ferro [facility] 3 13:27:22 Backache 979286774 [facility] 13:27:22 Pregnanc y 99163009 Completed 202301/30/2024 Oliviadipti Mccarthy [facility] 4 14:22:58 Past pregnanc y history of gestatio nal hyperten beryl 632142780 Completed Olivia Mccarthy [facility] 4 14:25:45 Problem Notes None recorded. Procedures Surgical History Date Name Laterality Status Provider Name and Address Organization Details Recorded Time 03/03/20 24 SALPINGECTOMY, LAPAROSCOPIC (SURG) completed Dalia Lara [facility] 03/03/2024 13:13:42 03/25/19 18 Date of Last Mammogram completed Brenna Wilks [facility] 08/22/2022 14:56:05 03/25/19 18 Breast augmentation w/implt completed Brenna Wilks [facility] 08/28/2022 17:09:06 03/25/19 18 excision of malignant tumor of breast completed Brenna Wilks [facility] 08/28/2022 17:09:17 03/25/19 05 tonsilectomy/[place] noids completed Brenna Wilks [facility] 01/04/2021 19:38:13 Imaging Results Imaging Date Name Status LastModified by Organiz ation Details LastModified Time 09/26/2022 US, obstetric, follow-up completed [email or web address] [facility] [address], [address], 11/30/2022 15:06:08 12/11/2022 US, obstetric, follow-up completed [email or web address] [facility] [address], [address], 12/13/2022 14:13:55 12/11/2023 US, obstetric, follow-up active [facility] [address], [place], [address], 12/27/2023 04:05:32 Procedure Notes None recorded. Medical Equipment None Reported. Allergies Allergen ID Allergen Name Allergen Category Reaction Reaction Severity Criticality Documentation Date Start Date Code Code System Note Provider Name and Address Organization Details Recorded Time 94166 Cipro medicatio n Not available Not available Not available 01/04/202149845 3 RxNorm Brenna haines [facility] 11:50:32 85287 Levaquin medicatio n Not available Not available Not available 01/04/2021 73092 2 RxNorm Brenna haines [facility] 11:50:40 Medications Name Sig Start Date [...] and Address Organization Details Last Updated DateTime 12/10/2022 160.02 cm 22.7 kg/m2 15123.82 336 g 111 mm[Hg] 76 mm[Hg] Luci Díaz [facility] 3 15:59:25 Date Recorded Body height Body mass index (BMI) Body weight Systolic blood pressure Diastolic blood pressure Provider Name and Address Organization Details Last Updated DateTime 12/18/2023 160.02 cm 24.4 kg/m2 18742.75 g 114 mm[Hg] 78 mm[Hg] Olivia Mccarthy [facility] 4 14:04:35 Date Recorded Body height Body mass index (BMI) Body weight Systolic blood pressure Diastolic blood pressure Provider Name and Address Organization Details Last Updated DateTime 01/30/2024 160.02 cm 22 kg/m2 50379.45 g 118 mm[Hg] 83 mm[Hg] Olivia Henryer [facility] 4 14:21:34 Date Recorded Body height Body mass index (BMI) Body weight Systolic blood pressure Diastolic blood pressure Provider Name and Address Organization Details Last Updated DateTime 02/25/2024 160.02 cm 21.8 kg/m2 34543.86 g 111 mm[Hg] 77 mm[Hg] Olivia Fabio [facility] 4 10:28:25 Social History Question Answer Notes LastModified by Organizat ion Details LastModified Time Tobacco Smoking Status Never Smoker Ele Rodríguez yancy, [facility] 09/21/2022 09:38:50 What Is Your Level Of Alcohol Consumption? None [email or web address] Information not available 01/04/2021 Are You Blind Or Do You Have Difficulty Seeing? No Information n ot available 01/04/2021 What Is Your Level Of Caffeine Consumption? Occasional [email or web address] Information not available 01/04/2021 In The 14 Days Before Symptom Onset, Have You Had Close Contact With A Laboratory-confirm ed COVID-19 While That Case Was Ill? No [email or web address] Information n ot available 01/04/2021 In The 14 Days Before Symptom Onset, Have You Had Close Contact With A Person Who Is Under Investigation For COVID-19 While That Person Was Ill? No [email or web address] Information not available 01/04/2021 Have You Been To An Area Known To Be High Risk For COVID-19? No [email or web address] Information not available 01/04/2021 Are You Deaf Or Do You Have Serious Difficulty Hearing? No [email or web address] Information not available 01/04/2021 What Type Of Diet Are You Following? REGULAR [email or web address] Information n ot available 01/04/2021 Do You Use Your Seat Belt Or Car Seat Routinely? Yes [email or web address] Information not available 01/04/2021 Do You Have Smoke And Carbon Monoxide Detectors In Your Home? Yes [email or web address] Information not available 01/04/2021 Do You Feel Stressed (tense, Restless, Nervous, Or Anxious, Or Unable To Sleep At Night)? [id number] [email or web address] Information not available 01/04/2021 Do You Use Any Illicit Or Recreational Drugs? No [email or web address] Information not available 01/04/2021 Do You Use Sunscreen Routinely? Yes [email or web address] Information not available 01/04/2021 Has Tobacco Cessation Counseling Been Provided? No [email or web address] Information not available 09/21/2022 Do You Or Have You Ever Used Any Other Forms Of Tobacco Or Nicotine? No [email or web address] Information not available 09/21/2022 Sex: Unknown Functional Status Question Answer Note LastModified by Organizat ion Details LastModified Time Do you have difficulty walking or climbing stairs? No [email or web address] Information not available 09/21/2022 Are you able to walk? YESWOREST [email or web address] Information not available 01/04/2021 Are you able to care for yourself? Yes Information not available 09/21/2022 Do you have difficulty dressing or bathing? No Information not available 09/21/2022 What is your exercise level? Occasional [email or web address] Information not available 01/04/2021 Mental Status None recorded. Family History Relationship Description Onset Age of this Age Resolved Age Notes LastModified by Organization Details LastModified Time Paternal Grandmother Malignant tumor of breast [email or web address] Not available 11/21 11:12:04 Paternal Grandmother Heart disease [email or web address] Not available 11/21 11:12:04 Paternal Grandmother Diabetes mellitus [email or web address] Not available 11/21 11:12:04 Paternal Grandmother Hypertensive disorder [email or web address] Not available 11/21 11:12:04 Paternal Grandmother Cyst of ovary [email or web address] Not available 2022 15:42:46 Paternal Grandmother Seizure disorder [email or web address] Not available 2022 15:42:46 Maternal Grandmother Heart disease [email or web address] Not available 11/21 11:12:04 Maternal Grandmother Diabetes mellitus [email or web address] Not available 11/21 11:12:04 Maternal Grandmother Hypertensive disorder [email or web address] Not available 11/21 11:12:04 Maternal Grandmother Cyst of ovary Not available 2022 15:42:46 Mother Cyst of ovary [email or web address] Not available 2022 15:42:46 Sister Cyst of ovary [email or web address] Not available 2022 15:42:46 Maternal Uncle Disorder of thyroid gland [email or web address] Not available 11/21 11:12:04 Medical History Condition Response Allergies (Food, seasonal, environmental ) Y Other Y Breast Cancer N Drug/Latex Allergies/Reactions N Blood Transfusion N Dermatologic Disorders N Lung Disease N Defects or Inherited Disease N Breast Problem Y Gestational Diabetes N Hematologic disorders N Anesthesia Complications N History of STI Y Deep Vein Thrombosis N Polycystic ovary syndrome N Anxiety Disorder N Autoimmune disease N Arthritis N Infertility N Polyps N Acid Reflux (GERD) N History of abnormal pap N Cancer N Stroke N Varicosities N Neurologic/Epilepsy N Endometriosis N High Cholesterol N Headaches N Fibromyalgia N Kidney Disease N Heart Problems N Kidney or Bladder Problems N Thyroid Problems N GI Problems N Eating Disorder N Anemia N Art (IVF or FET) N Psychiatric Illness N Ovarian Cancer N Diabetes N Pulmonary (TB, Asthma) N Hepatitis/Liver Disease N No Past Medical History N Eczema N Urinary Tract Infection Y Abuse/Domestic Violence N Asthma Y Trauma/Violence N Depression/ depression N Heart Disease N Pre-Eclampsia Y Hypertension Y Osteoporosis N Thrombophilias N Gynecological History Statement/Question Response Abnormal Pap [...] Diagnosis/Indication Diagnosis SNOMED-CT Code Diagnosis ICD10 Code [id number] Yulia Garcia CNM [place] [address] [address] 01/04/2021 11:23:34 01/04/2021 14:17:54 Miscarriage 43073586 O03.9 [id number] Jen Deleon [place] [address] [address] 08/21/2022 11:56:32 08/21/2022 14:39:23 screening 287543691 Z36.82 [id number] Yulia Garcia [facility] [address] [address] 08/22/2022 14:29:27 08/22/2022 15:29:38 Routine care 493718194 Z34.90 Venereal d isease screening 616440237 Z11.3 Nausea and vomiting 1693 2000 R11.2 [id number] Yulia Garcia [facility] [address],[place] [address] 09/21/2022 09:37:41 09/21/2022 10:17:05 Routine care 734293300 Z34.90 Vulvovaginitis 53094648 N76.0 [id number] Jen Deleon [place] [address] [address] 09/21/2022 10:12:25 09/21/2022 10:46:42 Abdominal pain in 120154189 O99.891 Z3A.17 [id number] Yulia Garcia [facility] [address] [address] 10/24/2022 10:30:27 10/24/2022 12:17:29 Routine care 133367385 Z34.90 [id number] [facility] [address] [address] 11/21/2022 10:55:20 11/21/2022 12:01:33 Routine care 032279772 Z34.90 [id number] [facility] [address],[place] [address] 11/28/2022 10:38:04 11/28/2022 11:35:20 Routine care 906577796 Z34.90 [id number] [facility] [address] [address] 12/05/2022 12:56:32 12/05/2022 14:26:08 Urinary symptoms 126784627 R39.9 Routine an tenatal care 552266088 Z34.90 [id number] Tal Clemente MD [place] [address],[place] [address] 12/10/2022 15:40:41 12/10/2022 17:09:10 Routine care 661721596 Z34.83 [id number] Tal Clemente MD [place] [address] [address] 12/18/2023 13:50:20 12/18/2023 15:27:37 Routine care 732856596 Z34.83 [id number] Brittany Mcgarry [place] [address] [address] 12/26/2023 16:42:23 12/26/2023 17:24:07 Urinary tract infectious disease 56845451 N39.0 [id number] Tal Clemente MD [place] [address],[place] [address] 01/30/2024 13:50:09 01/30/2024 15:01:29 Female sterilization 04555134 Z30.2 care 28683061 8 Z39.2 [id number] Tal Clemente MD [place] [address] [address] 02/25/2024 10:17:49 02/25/2024 10:55:21 Female sterilization 52660500 Z30.2 Health Concerns Section Related Observation LastModified by Organization Detai ls LastModified Time None Recorded Concern Status LastModified by Organization Details LastModified Time None Recorded Advance Directives Directive None Recorded Payers Encounter Date Sequence Insurance Name Policy Number Policy Khalil Covered Member ID Khalil Member ID Guarantor Name 12/10/2022 1 [place] [id number] 2 Arian Monet [id number] Mariam Monet 12/10/2022 2 [facility] (MEDICAID HMO) [id number] Mariam Monet [id number] Mariam Monet 12/18/2023 1 [place] [id number] 2 Arian Monet [id number] Mariam Monet 12/18/2023 2 [place] [facility] Mariam Monet [id number] Mariam Monet 12/26/2023 1 [place] [id number] 2 Arian Monet [id number] Mariam Monet 12/26/2023 2 [place] [facility] [place] Mariam Monet [id number] Mariam Monet 01/30/2024 1 [place] [id number] 2 Arian Monet [id number] Mariam Monet 01/30/2024 2 [place] [facility] PUBLIC [facility]ID Mariam Monet [id number] Mariam Monet 02/25/2024 1 [place] [id number] 2 Arian Monet [id number] Mariam Monet 02/25/2024 2 [place] [facility] PUBLIC AID Mariam Monet [id number] Mariam Monet Notes Date Note Type Note Provider Name [...] is risk of hemorrhage and infection. Tal Clemente MD [address], [place], [address], [place] [facility] 01/30/2024 14:53:23 02/25/2024 text/html this patient is a 23-year-old [...] is risk of hemorrhage and infection. Tal Clemente MD [address], [place], [address], [facility] 02/25/2024 10:54:22 OBGyn Episode Ob Episode Information Episode Created Date Number of Fetuses Patient Bloodtype Patient rh Status Prepregnancy Weight lbs Domestic Partner Domestic Partner Phone Father Name Policy Writer Status 01/05/20 21 1 CLOSED Fetus Data First Name Last Name Admitted to NICU Weight (g) Sex Living Outcome Pediatric Complications Fetus ID Race Codes Race Delivery Type , Spontane ous [id number] Angie Calculation ANGIE Calculation Method Initial Angie Date Initial Exam Date Initial Exam Provider Initial Ultrasound Date Last Menstrual Period Date Ultra Sound Weeks Gestation Conception by IVF Embryo Age at Transfer Date of Transfer 0 Eighteen To Twenty Week Angie Update Ultra Sound Date Fundal Height At Umbil Quickening Date Ultra Sound Latest Weeks Gestation Final Angie Confirmed By Final Angie Confirmed Date Final Angie Date Ultra Sound Latest Days Gestation 0 0 Menstrual History Last Menstrual Date Menses Monthly On Bcp Conception Prior Menses Frequency Hcg Plus Date Menarche Onset Age Delivery Information Delivery Date Delivery Type Labor Anesthesia Weeks Gestation Incision Type Labor Labor Length Hrs Delivered By Post Complications Tubal Sterilization Discharge Date Comments 1 Discharge Information Feeding Method Contraceptive Method Maternal HG B and HCT Levels Ob Episode Information Episode Created Date Number of Fetuses Patient Bloodtype Patient rh Status Prepregnancy Weight lbs Domestic Partner Domestic Partner Phone Father Name Policy Writer Status 01/05/20 21 1 CLOSED Fetus Data First Name Last Name Admitted to NICU Weight (g) Sex Living Outcome Pediatric Complications Fetus ID Race Codes Race Delivery Type 3259.96 [id number] F Full Term [id number] Vaginal Delivery Angie Calculation ANGIE Calculation Method Initial Angie Date Initial Exam Date Initial Exam Provider Initial Ultrasound Date Last Menstrual Period Date Ultra Sound Weeks Gestation Conception by IVF Embryo Age at Transfer Date of Transfer 0 Eighteen To Twenty Week Angie Update Ultra Sound Date Fundal Height At Umbil Quickening Date Ultra Sound Latest Weeks Gestation Final Angie Confirmed By Final Angie Confirmed Date Final Angie Date Ultra Sound Latest Days Gestation 0 0 Menstrual History Last Menstrual Date Menses Monthly On Bcp Conception Prior Menses Frequency Hcg Plus Date Menarche Onset Age Delivery Information Delivery Date Delivery Type Labor Anesthesia Weeks Gestation Incision Type Labor Labor Length Hrs Delivered By Post Complications Tubal Sterilization Discharge Date Comments 7 40 Discharge Information Feeding Method Contraceptive Method Maternal HG B and HCT Levels Ob Episode Information Episode Created Date Number of Fetuses Patient Bloodtype Patient rh Status Prepregnancy Weight lbs Domestic Partner Domestic Partner Phone Father Name Policy Writer Status 01/05/20 21 1 CLOSED Fetus Data First Name Last Name Admitted to NICU Weight (g) Sex Living Outcome Pediatric Complications Fetus ID Race Codes Race Delivery Type 2721.55 2 M Prematur e [id number] Vaginal Delivery Angie Calculation ANGIE Calculation Method Initial Angie Date Initial Exam Date Initial Exam Provider Initial Ultrasound Date Last Menstrual Period Date Ultra Sound Weeks Gestation Conception by IVF Embryo Age at Transfer Date of Transfer 0 Eighteen To Twenty Week Angie Update Ultra Sound Date Fundal Height At Umbil Quickening Date Ultra Sound Latest Weeks Gestation Final Angie Confirmed By Final Angie Confirmed Date Final Angie Date Ultra Sound Latest Days Gestation 0 0 Menstrual History Last Menstrual Date Menses Monthly On Bcp Conception Prior Menses Frequency Hcg Plus Date Menarche Onset Age Delivery Information Delivery Date Delivery Type Labor Anesthesia Weeks Gestation Incision Type Labor Labor Length Hrs Delivered By Post Complications Tubal Sterilization Discharge Date Comments 8 34 true Discharge Information Feeding Method Contraceptive Method Maternal HG B and HCT Levels Ob Episode Information Episode Created Date Number of Fetuses Patient Bloodtype Patient rh Status Prepregnancy Weight lbs Domestic Partner Domestic Partner Phone Father Name Policy Writer Status 01/05/20 21 1 CLOSED Fetus Data First Name Last Name Admitted to NICU Weight (g) Sex Living Outcome Pediatric Complications Fetus ID Race Codes Race Delivery Type , Spontane ous [id number] Angie Calculation ANGIE Calculation Method Initial Angie Date Initial Exam Date Initial Exam Provider Initial Ultrasound Date Last Menstrual Period Date Ultra Sound Weeks Gestation Conception by IVF Embryo Age at Transfer Date of Transfer 0 Eighteen To Twenty Week Angie Update Ultra Sound Date Fundal Height At Umbil Quickening Date Ultra Sound Latest Weeks Gestation Final Angie Confirmed By Final Angie Confirmed Date Final Angie Date Ultra Sound Latest Days Gestation 0 0 Menstrual History Last Menstrual Date Menses Monthly On Bcp Conception Prior Menses Frequency Hcg Plus Date Menarche Onset Age Delivery Information Delivery Date Delivery Type Labor Anesthesia Weeks Gestation Incision Type Labor Labor Length Hrs Delivered By Post Complications Tubal Sterilization Discharge Date Comments 6 Discharge Information Feeding Method Contraceptive Method Maternal HG B and HCT Levels Ob Episode Information Episode Created Date Number of Fetuses Patient Bloodtype Patient rh Status Prepregnancy Weight lbs Domestic Partner Domestic Partner Phone Father Name Policy Writer Status 08/23/19 23 1 A Positive 111 MANUAL MONET CLOSED Fetus Data First Name Last Name Admitted to NICU Weight (g) Sex Living Outcome Pediatric Complications Fetus ID Race Codes Race Delivery Type Problems Problem Notes [facility] ([facility]) Next Edwardo t: 10/26 Anatomy Scan. Rpt u/s 12/26?IUGRRecommendations: PCP for asthma mgmt, CL surveillance and if shortens to <25mm before 24 wks consider cerclage or daily vaginal progesterone 90-200mg/day, LD ASA, CL check at 20wks, growth & GARRICK check every 4wks, testing TBD, delivery TBD, notify pedi of hx.planning sterilization post partumright breast tumor removal 2017 Problem Name Start Date End Date Resolution Snomed Code Not e Asthma in 1576651929 9103 1 tab daily slow fe with OJ Past history of premature delivery [id number] second baby born 34-35 weeks gestation - [facility] 09/30 - serial growth Congenital malformation 771632 001 first preg 2017- daughter pyloric stenosis - [facility] 09/30 Gastroesophageal reflux disease 09/10/2022 MEDICATION 007917522 1 tab omeprazol e 20mg BID Contraction [id number] Backache [id number] TENS unit recommend., Angie Calculation ANGIE Calculation Method Initial Angie Date Initial Exam Date Initial Exam Provider Initial Ultrasound Date Last Menstrual Period Date Ultra Sound Weeks Gestation Conception by IVF Embryo Age at Transfer Date of Transfer 02/26/2007/19/19 23 07/18/2022 05/19/2022 8 Eighteen To Twenty Week Angie Update Ultra Sound Date Fundal Height At Umbil Quickening Date Ultra Sound Latest Weeks Gestation Final Angie Confirmed By Final Angie Confirmed Date Final Angie Date Ultra Sound Latest Days Gestation 0 [email or web address] 08/23/2022 02/24/20 23 0 Pre-leann Flowsheet Flowsheet Date 08/22/2022 Tee Score Blood Edema Fundus Height Fundus Units Glucose Ketones Leukocytes Nitrite Labor Signs Protein Cervic Dilation Cervic Effacement Cervic Station trace none none trace Type Weight in lbs Pre/Post Dialysis Refused Weight 107.055306278262 BP Diastolic BP Location Tested BP Systolic BP Type 76 106 Fetus Heart Rate Present Fetus Movement A Yes Comments PATIENT STATES THAT HAS HAD SOME BLEEDING, DIZZYNESS, NAUSEA AND VOMITING. refill zofran as needed will try suppository, call is sxs don't improve, precautions, [facility], records in chart, nips per pt wnl (girl) Flowsheet Date 09/21/2022 Tee Score Blood Edema Fundus Height Fundus Units Glucose Ketones Leukocytes Nitrite Labor Signs Protein Cervic Dilation Cervic Effacement Cervic Station neg none none trace Type Weight in lbs Pre/Post Dialysis Refused Weight 110.644218639827 BP Diastolic BP Location Tested BP Systolic BP Type 67 99 Fetus Heart Rate Present A 142 Fetus Movement A Yes Comments patient is having some back pain, cramping, bleeding last week, pain and itching [facility]ination[facility], now external vaginal itching. will rx diflucan. send urine for sti/uti, self pay will await most labs but had hypokalemia at hospital will do cmp today. applying for insurance coverageplan CL for cramping that wouldn't let her rest last night. no urinary sxs today, no gi sxs.abd soft/ non tender on examf/u 4 weeks with anatomy scanspotting with intercourse , resolved, abstain and continue to monitor Flowsheet Date 09/21/2022 Tee Score Blood Edema Fundus Height Fundus Units Glucose Ketones Leukocytes Nitrite Labor Signs Protein Cervic Dilation Cervic Effacement Cervic Station Type Weight in lbs Pre/Post Dialysis Refused BP Diastolic BP Location Tested BP Systolic BP Type Fetus Heart Rate Present Fetus Movement Comments Flowsheet Date 10/24/2022 Tee Score Blood Edema Fundus Height Fundus Units Glucose Ketones Leukocytes Nitrite Labor Signs Protein Cervic Dilation Cervic Effacement Cervic Station neg none none trace Type Weight in lbs Pre/Post Dialysis Refused Weight 116.29576493711 BP Diastolic BP Location Tested BP Systolic BP Type 75 108 Fetus Heart Rate Present A 144 Present Fetus Movement A Yes Comments patient is having headaches, contractions, pain, nausea and vomiting. will have pt meet with dr. clemente, plan 4 week visit, has M follow up, headaches will try fioricet, precautions reviewed Flowsheet Date 11/21/2022 Tee Score Blood Edema Fundus Height Fundus Units Glucose Ketones Leukocytes Nitrite Labor Signs Protein Cervic Dilation Cervic Effacement Cervic Station neg none 27 none trace Type Weight in lbs Pre/Post Dialysis Refused Weight 121.999451967246 BP Diastolic BP Location Tested BP Systolic BP Type 70 102 Fetus Heart Rate Present A 153 Present Fetus Movement A Yes Comments patient is having some pelvi c pain, nausea and vomiting. back pain, maternity support belt not helping, sees [facility] saturday, precautions reviewed, gct at [facility] per pt Flowsheet Date 11/28/2022 Tee Score Blood Edema Fundus Height Fundus Units Glucose Ketones Leukocytes Nitrite Labor Signs Protein Cervic Dilation Cervic Effacement Cervic Station neg none none trace Type Weight in lbs Pre/Post Dialysis Refused Weight 124.076105674959 BP Diastolic BP Location Tested BP Systolic BP Type 69 99 Fetus Heart Rate Present Fetus Movement A Yes Comments patient is having some contr actions. saw [facility] and then was evaluated in [place], fexeril helped for [place]. PTL precautions planning tdap and flu f/u 2 weeks Flowsheet Date 12/05/2022 Tee Score Blood Edema Fundus Height Fundus Units Glucose Ketones Leukocytes Nitrite Labor Signs Protein Cervic Dilation Cervic Effacement Cervic Station neg trace none trace Type Weight in lbs Pre/Post Dialysis Refused Weight 125.929406731058 BP Diastolic BP Location Tested BP Systolic BP Type 73 107 Fetus Heart Rate Present Fetus Movement A Yes Comments OB problem patient is having UTI symptoms, contractions, pressure, swelling, nausea and vomiting. not feeling well contractions, tired, does not appear well, have MA drive to [place] for evaluation Flowsheet Date 12/10/2022 Tee Score Blood Edema Fundus Height Fundus Units Glucose Ketones Leukocytes Nitrite Labor Signs Protein Cervic Dilation Cervic Effacement Cervic Station 30 none trace Type Weight in lbs Pre/Post Dialysis Refused Weight 128.891588743330 BP Diastolic BP Location Tested BP Systolic BP Type 76 R arm 111 sitting Fetus Heart Rate Present A 145 Fetus Movement A Yes Comments low back pain. recommendatio ns given, contractions improved with nifedepine Menstrual History Last Menstrual Date Menses Monthly On Bcp Conception Prior Menses Frequency Hcg Plus Date Menarche Onset Age 0205/19/2022 Genetic Screening And Infection History Question Response Note Mental Retardation/Autism false Patient's Age Will Be 35 Yea rs Or Older At Estimated Date of Delivery false Thalassemia (Turkish, Surinamese, Mediterranean, Or Background): MCV < 80 false Neural Tube Defect (Meningom yelocele, Spina Bifida, Or Anencephaly) false Congenital Heart Defect false Down Syndrome false Joe-Sachs (eg, Roman Catholic, Cajun, Bruneian-Kimball) f alse Ravi Disease false Sickle Cell Disease Or Trait () false Hemophilia Or Other Blood Disorders false Muscular Dystrophy false Cystic Fibrosis false [place]'s Chorea false Intellectual Disability/Autism false If Yes, Was Person Tested For Fragile X? false Other Inherited Genetic Or Chromosomal Disorder false Maternal Metabolic Disorder (eg, Type 1 Diabetes , PKU) false Patient Or Baby's Father Had A Child With Defects Not Listed Above false Recurrent Loss, Or A Stillbirth false Medications (including Suppl ements, Vitamins, Herbs, OTC Drugs), Illicit/Recreational Drugs, Alcohol true pnv, zofra n, reglan If Yes, Agent(s) And Strength/Dosage false Any Other Genetic History false Live With Someone With TB Or Exposed To TB false Patient Or Partner Has History Of Genital Herpes false Rash Or Viral Illness Since Last Menstrual Perio d false History Of STD, Gonorrhea, Chlamydia, HPV, Syphi lis false Other Infection History false History of HIV false History of Hepatitis false Prior GBS-infected child false Hemoglobinopathy Or Carrier false Other Structural Defect false Recent Travel History Outside of Country false Delivery Information Delivery Date Delivery Type Labor Anesthesia Weeks Gestation Incision Type Labor Labor Length Hrs Delivered By Post Complications Tubal Sterilization Discharge Date Comments Discharge Information Feeding Method Contraceptive Method Maternal HG B and HCT Levels Ob Episode Information Episode Created Date Number of Fetuses Patient Bloodtype Patient rh Status Prepregnancy Weight lbs Domestic Partner Domestic Partner Phone Father Name Policy Writer Status 12/18/19 24 1 CLOSED Fetus Data First Name Last Name Admitted to NICU Weight (g) Sex Living Outcome Pediatric Complications Fetus ID Race Codes Race Delivery Type F Full Term [id number] Vaginal Delivery Angie Calculation ANGIE Calculation Method Initial Angie Date Initial Exam Date Initial Exam Provider Initial Ultrasound Date Last Menstrual Period Date Ultra Sound Weeks Gestation Conception by IVF Embryo Age at Transfer Date of Transfer 0 Eighteen To Twenty Week Angie Update Ultra Sound Date Fundal Height At Umbil Quickening Date Ultra Sound Latest Weeks Gestation Final Angie Confirmed By Final Angie Confirmed Date Final Angie Date Ultra Sound Latest Days Gestation 0 0 Menstrual History Last Menstrual Date Menses Monthly On Bcp Conception Prior Menses Frequency Hcg Plus Date Menarche Onset Age Delivery Information Delivery Date Delivery Type Labor Anesthesia Weeks Gestation Incision Type Labor Labor Length Hrs Delivered By Post Complications Tubal Sterilization Discharge Date Comments 3 38.5 Discharge Information Feeding Method Contraceptive Method Maternal HG B and HCT Levels Ob Episode Information Episode Created Date Number of Fetuses Patient Bloodtype Patient rh Status Prepregnancy Weight lbs Domestic Partner Domestic Partner Phone Father Name Policy Writer Status 12/18/19 24 1 A Positive Arian CLOSED Fetus Data First Name Last Name Admitted to NICU Weight (g) Sex Living Outcome Pediatric Complications Fetus ID Race Codes Race Delivery Type Greyso n true M [id number] Vaginal Delivery Problems Problem Notes PT is here for ob visit. She transferred care. She would like to deliver at [place]. She has hx of labor and pre-eclampsia. [...] discuss tubal ligation. Pt is scheduled with [facility] on 12/15, 12/18, 12/22, 12/25, 12/29, 01/01 Problem Name Start Date End Date Resolution Snomed Code Not e Past history of ge stational hypertension 391066626 Angie Calculation ANGIE Calculation Method Initial Angie [...] Weight in lbs Pre/Post Dialysis Refused Weight 138.433547506724 BP Diastolic BP Location Tested BP Systolic [...] Weight in lbs Pre/Post Dialysis Refused Weight 124.413843880948 BP Diastolic BP Location Tested BP Systolic [...]
--- OUTSIDE RECORDS SUMMARY | 2024-03-15 14:50 | XMS_ITS | Continuity of Care Document ---
Author Organization [facility] Address [address] [place] [address] Care Team Providers Care Cloth Handler Name Role Phone LORIN CASILLAS Primary Care Provider [phone] Assessment No assessment recorded. Plan of Treatment Reminders Order Date Submit Date Provider Last Modified By Organization Details Last Modified Time Details Appointments None recorded. Lab culture, urine 2023 [facility] (Lab), [address] [place], [address], 17:26:54 urinalysis , dipstick 2023 024 [email or web address] [place], [address], [place], [address], 17:20:57 Referral None recorded. Procedures None recorded. Surgeries None recorded. Imaging None recorded. Medication Orders Macrobid 100 mg capsule 2023 024 [facility] [address] [facility] [employer], [address] [place], [address], 14:23:13 Patient TargetsNo targets recorded. Patient InstructionsNo instructions recorded. Reason for Referral None Reported. Results Created Date Observation Date Name Description Value Unit Range Abnormal Flag Note LastModifiedBy Organization Detail LastModifiedTime 12/26/1912/26/2023 urina lysis , dipst ick Leukocytes +2 Not Available [facility] [address], [place], [address], 12/26/2023 17:18:14 12/26/19 24 12/26/2023 urina lysis , dipst ick Protein +1 Not Available [place] [address], [place], [address], 12/26/2023 17:18:14 12/26/19 24 12/26/2023 urina lysis , dipst ick Blood + Not Available [place] [address], [place], [address], 12/26/2023 17:18:14 12/26/19 24 12/26/2023 urina lysis , dipst ick Ketone +3 Not Available [facility] [address], [place], [address], 12/26/2023 17:18:14 Result Notes None recorded. Problems Name Problem SNOMED Code Status Onset Date Resolution Date Notes Provider Name and Address Organization Details Recorded Time Pregnanc y 87707170 Completed 202202/18/2023 Olivia Mccarthy [facility], [facility] 4 14:22:59 Asthma in pregnanc y 91198708962 103 Completed 1 tab daily slow fe with OJ Sue haines, [facility] 3 13:27:22 Past pregnanc y history of prematur e delivery 336622564 Completed second baby born 34-35 weeks gestatio n - [facility] 09/30 - serial growth Sue haines, [facility] 3 13:27:22 Congenit al malforma tion 157935951 Completed first preg 2017- daughter pyloric stenosis - [facility] 09/30 Sue haines, [facility] 3 13:27:22 Gastroes ophageal reflux disease 353187932 Completed 2022 1 tab omeprazo le 20mg BID Sue Ferro [facility] 3 13:27:22 Contract ion 97151529 Completed Sue Ferro [facility] 3 13:27:22 Backache 172556725 Completed TENS unit recommen d., Sue Ferro [facility] 3 13:27:22 Pregnanc y 78421618 Completed 202301/30/2024 Olivia Mccarthy [facility] 4 14:22:58 Past pregnanc y history of gestatio nal hyperten beryl 710546006 Completed [facility] Fabio [facility] 4 14:25:45 Problem Notes None recorded. Procedures Surgical History Date Name Laterality Status Provider Name and Address Organization Details Recorded Time 03/03/20 24 SALPINGECTOMY, LAPAROSCOPIC (SURG) completed Dalia Lara [facility] 03/03/2024 13:13:42 03/25/19 18 Date of Last Mammogram completed [facility] 08/22/2022 14:56:05 03/25/19 18 Breast augmentation w/implt completed [facility] 08/28/2022 17:09:06 03/25/19 18 excision of malignant tumor of breast completed [facility] 08/28/2022 17:09:17 03/25/19 05 tonsilectomy/[place] noids completed [facility] 01/04/2021 19:38:13 Imaging Results None recorded. Procedure Notes None recorded. Medical Equipment None Reported. Allergies Allergen ID Allergen Name Allergen Category Reaction Reaction Severity Criticality Documentation Date Start Date Code Code System Note Provider Name and Address Organization Details Recorded Time 38110 Cipro medicatio n Not available Not available Not available 01/04/202121498 3 RxNorm Brenna Wilks yancy, [facility] 11:50:32 22859 Levaquin medicatio n Not available Not available Not available 01/04/2021 40988 2 RxNorm Brenna Wilks yancy, [facility] 11:50:40 Medications Name Sig Start Date [...] Not Available Not Available Not Available Vitals None Recorded Social History Question Answer Notes LastModified by Organizat ion Details LastModified Time Tobacco Smoking Status Never Smoker Elemamta Rodríguez [facility] 09/21/2022 09:38:50 What Is Your Level Of Alcohol Consumption? None [email or web address] Information not available 01/04/2021 Are You Blind Or Do You Have Difficulty Seeing? No [email or web address] Information n ot available 01/04/2021 What Is Your Level Of Caffeine Consumption? Occasional [email or web address] Information not available 01/04/2021 In The 14 Days Before Symptom Onset, Have You Had Close Contact With A Laboratory-confirm ed COVID-19 While That Case Was Ill? No Information n ot available 01/04/2021 In The 14 Days Before Symptom Onset, Have You Had Close Contact With A Person Who Is Under Investigation For COVID-19 While That Person Was Ill? No [email or web address] Information not available 01/04/2021 Have You Been To An Area Known To Be High Risk For COVID-19? No [email or web address] Information not available 01/04/2021 Are You Deaf Or Do You Have Serious Difficulty Hearing? No [email or web address] Information not available 01/04/2021 What Type Of Diet Are You Following? REGULAR [email or web address] Information n ot available 01/04/2021 Do You Use Your Seat Belt Or Car Seat Routinely? Yes [email or web address] Information not available 01/04/2021 Do You Have Smoke And Carbon Monoxide Detectors In Your Home? Yes [email or web address] Information not available 01/04/2021 Do You Feel Stressed (tense, Restless, Nervous, Or Anxious, Or Unable To Sleep At Night)? [id number] [email or web address] Information not available 01/04/2021 Do You Use Any Illicit Or Recreational Drugs? No [email or web address] Information not available 01/04/2021 Do You Use Sunscreen Routinely? Yes [email or web address] Information not available 01/04/2021 Has Tobacco Cessation Counseling Been Provided? No [email or web address] Information not available 09/21/2022 Do You Or Have You Ever Used Any Other Forms Of Tobacco Or Nicotine? No [email or web address] Information not available 09/21/2022 Sex: Unknown Functional Status Question Answer Note LastModified by Organizat ion Details LastModified Time Do you have difficulty walking or climbing stairs? No [email or web address] Information not available 09/21/2022 Are you able to walk? YESWOREST [email or web address] Information not available 01/04/2021 Are you able to care for yourself? Yes [email or web address] Information not available 09/21/2022 Do you have difficulty dressing or bathing? No [email or web address] Information not available 09/21/2022 What is your exercise level? Occasional [email or web address] Information not available 01/04/2021 Mental Status None recorded. Family History Relationship Description Onset Age of this Age Resolved Age Notes LastModified by Organization Details LastModified Time Paternal Grandmother Malignant tumor of breast [email or web address] Not available 11/21 11:12:04 Paternal Grandmother Heart disease [email or web address] Not available 11/21 11:12:04 Paternal Grandmother Diabetes mellitus [email or web address] Not available 11/21 11:12:04 Paternal Grandmother Hypertensive disorder [email or web address] Not available 11/21 11:12:04 Paternal Grandmother Cyst of ovary Not available 2022 15:42:46 Paternal Grandmother Seizure disorder [email or web address] Not available 2022 15:42:46 Maternal Grandmother Heart disease [email or web address] Not available 11/21 11:12:04 Maternal Grandmother Diabetes mellitus [email or web address] Not available 11/21 11:12:04 Maternal Grandmother Hypertensive disorder [email or web address] Not available 11/21 11:12:04 Maternal Grandmother Cyst of ovary [email or web address] Not available 2022 15:42:46 Mother Cyst of ovary [email or web address] Not available 2022 15:42:46 Sister Cyst of ovary [email or web address] Not available 2022 15:42:46 Maternal Uncle Disorder of thyroid gland [email or web address] Not available 11/21 11:12:04 Medical History Condition Response Allergies (Food, seasonal, environmental ) Y Other Y Drug/Latex Allergies/Reactions N Breast Cancer N Blood Transfusion N Lung Disease N Dermatologic Disorders N Defects or Inherited Disease N Breast Problem Y Gestational Diabetes N Hematologic disorders N Anesthesia Complications N History of STI Y Deep Vein Thrombosis N Polycystic ovary syndrome N Anxiety Disorder N Autoimmune disease N Arthritis N Polyps N Infertility N History of abnormal pap N Acid Reflux (GERD) N Cancer N Varicosities N Stroke N Neurologic/Epilepsy N Endometriosis N High Cholesterol N Headaches N Fibromyalgia N Kidney Disease N Heart Problems N Thyroid Problems N Kidney or Bladder Problems N GI Problems N Eating Disorder [...] Diagnosis/Indication Diagnosis SNOMED-CT Code Diagnosis ICD10 Code [id number] Tal Green MD [place] [address] [address] 12/18/2023 13:50:20 12/18/2023 15:27:37 Routine care 442891631 Z34.83 [id number] [facility] [address] [address] 12/26/2023 16:42:23 12/26/2023 17:24:07 Urinary tract infectious disease 02236627 N39.0 Health Concerns Section Related Observation LastModified by Organization Detai ls LastModified Time None Recorded Concern Status LastModified by Organization Details LastModified Time None Recorded Payers Encounter Date Sequence Insurance Name Policy Number Policy Khalil Covered Member ID Khalil Member ID Guarantor Name 12/26/2023 1 [place] [id number] 2 Arian Lea [id number] Mariam Lea 12/26/2023 2 [place] [employer] Mariam Lea [id number] Mariam Lea OBGyn Episode Ob Episode Information Episode Created Date Number of Fetuses Patient Bloodtype Patient rh Status Prepregnancy Weight lbs Domestic Partner Domestic Partner Phone Father Name Personnel Manager Status 12/18/19 24 1 A Positive Arian CLOSED Fetus Data First Name Last Name Admitted to NICU Weight (g) Sex Living Outcome Pediatric Complications Fetus ID Race Codes Race Delivery Type Vanesa n true M [id number] Vaginal Delivery Problems Problem Notes PT is here for ob visit. She transferred care. She would like to deliver at [place]. She has hx of labor and pre-eclampsia. [...] tubal ligation. Pt is scheduled with JAYE Brown on 12/15, 12/18, 12/22, 12/25, 12/29, 01/01 Problem Name Start Date End Date Resolution Snomed Code Not e Past history of ge stational hypertension [id number] Angie Calculation ANGIE Calculation Method Initial Angie [...] Weight in lbs Pre/Post Dialysis Refused Weight 138.625185809461 BP Diastolic BP Location Tested BP Systolic [...] Weight in lbs Pre/Post Dialysis Refused Weight 124.472946160954 BP Diastolic BP Location Tested BP Systolic [...]
--- OUTSIDE RECORDS SUMMARY | 2024-03-15 14:51 | XMS_ITS | Encounter Summary ---
Author Organization [facility] Healthcare Address [address] [place] [address] Care Team Providers Care Dental Technician Instructor Name Role Phone No, Physician Primary Care Provider [phone] Reason for Visit * Reason Comments Dizziness Encounter Details Date Type Department Care Team (Late st Contact Info) Description 12/13/2023 7:31 PM CDT - 12/13/2023 8:20 PM CDT Emergency [address] [address] Tevin Menon MD [address] [place] [id number] Lightheadedness (Primary Dx) Discharge Disposition: Discharge to home or self care Social History Tobacco Use Types Packs/Day Years Used Date Smoking Tobacco: Never Alcohol Use Standard Drinks/Week Comments Never 0 (1 standard drink = 0.6 oz pur e alcohol) Aurora Depression Scale Answer Date Recorded Aurora Depression Scale Total 20 08/29/2023 The thought of harming myself has occurred to me . Sometimes 08/29/2023 Personal Safety Answer Date Recorded Have you ever been in or are you currently in a harmful physical or emotional relationship or is someone making you feel afraid or unsafe? Denies 02/10/2023 Estimated Date of Delivery Comme nts Yes 02/15/2024 Based on Ultraso und Sex and Gender Information Value Date Recorded Sex Assigned at Not on file Legal Sex Female 12:21 PM CDT Gender Identity Not on file Sexual Orientation Not on file documented as of this encounter Last Filed Vital Signs Vital Sign Reading Time Taken Comments Blood Pressure 106/89 12/13/2023 6:48 PM CDT Pulse 93 12/13/2023 6:48 PM CDT Temperature 36.7 ??C (98.1 ??F) 12/13/2023 2:05 PM CD T Respiratory Rate 16 12/13/2023 6:48 PM CDT Oxygen Saturation 97% 12/13/2023 6:48 PM CDT Inhaled Oxygen Concentration - - Weight 61.2 kg (135 lb) 12/13/2023 2:05 PM CDT Height - - Body Mass Index 23.92 10/30/2023 10:13 AM CDT documented in this encounter Discharge Instructions * Discharge Instructions* Tevin Menon MD - 12/13/2023 7:34 PM CDT Please follow-up with your OB appointment as scheduled. Please continue to eat nutrition and drink plenty of fluids. Please return emergency department if symptoms return. Follow-up as recommended is mandatory. You have received emergency care only at your visit today. This is not a substitute for ongoing care, further evaluation and treatment and therefore follow-up as directed is not optional but mandatory You MUST follow up for further evaluation of all incidental abnormal radiographic and laboratory findings, Have your physician obtain records from this visit and address all the incidental abnormal findings. This may include final results of lab testing, cultures, final x-ray reports which may not have been available during the time of the visit. Return immediately for any new symptoms, worsening of symptoms, or persistent symptoms documented in this encounter Medications at Time of Discharge aspirin 81 mg enteric coated tablet Take 1 tablet (81 mg total) by mouth daily vit [id number] 27mg iron- 800 mcg-250 mg capsule Take by mouth documented as of this encounter Discharge Disposition Disposition Code Departure Means Destination Comment s Discharge to home or self care documented in this encounter ED Notes * Tevin Menon MD - 12/13/2023 7:27 PM CDT History of Present Illness Patient information was obtained primarily from the patient, medical records, Mariam Lea is a 23 y.o. female with hx as below, who presents with c/o lightheadedness. Patient states she was getting 3 hour glucose tolerance test beginning to feel dizzy lightheaded. Patient states that she felt as though she needs to sit down. Patient states that she then began getting her senses started vomiting. The patient states that this is a 4th and denies any prior historyof gestational diabetes. Patient denies any complaints at this time. Patient denies any chest pain shortness of breath. Patient denies any new arm and leg weakness for Relevant Medical History Past Medical History: Diagnosis Date Anxiety Asthma Breast tumor Depression Gestational hypertension Past Surgical History: Procedure Laterality Date BREAST BIOPSY Right BREAST SURGERY TONSILECTOMY, ADENOIDECTOMY, BILATERAL MYRINGOTOMY AND TUBES Family History Problem Relation Age of Onset Hypertension Paternal Grandmother Heart disease Paternal Grandmother Diabetes Paternal Grandmother Hypertension Maternal Grandmother Heart disease Maternal Grandmother Diabetes Maternal Grandmother Breast cancer Maternal Grandmother Colon cancer Neg Hx Ovarian cancer Neg Hx Uterine cancer Neg Hx Social History Tobacco Use Smoking status: Never Smokeless tobacco: Not on file Substance and Sexual Activity Drug use: Never Sexual activity: Yes Partners: Male Alcohol Use: Not At Risk (02/13/2023) [facility], [facility] AUDIT[facility]C Frequency of Alcohol Consumption: Never Average Number of Drinks: Patient does not drink Frequency of Binge Drinking: Never Allergies Allergen Reactions Penicillin G Itching Review of Systems All systems reviewed and are neg or non contributory for this patients presentation today other than as stated in the HPI . Physical Exam ED Triage Vitals Temp Pulse Resp BP SpO2 12/13/23 1405 12/13/23 1405 12/13/23 1405 12/13/23 1405 12/13/23 1405 36.7 ??C (98.1 ??F) 102 18 124/88 98 % Temp src Heart Rate Source Patient Position BP Location FiO2 (%) 12/13/23 1405 12/13/23 1623 12/13/23 1623 -- -- Oral Pulse Oximetry Sitting Height Height Method Weight Weight Method -- -- 12/13/23 1405 12/13/23 1405 61.2 kg (135 lb) Stated Physical Exam Vitals and nursing note reviewed. Constitutional: General: She is not in acute distress. Appearance: She is well-developed. HENT: Head: Normocephalic and atraumatic. Eyes: Conjunctiva/sclera: Conjunctivae normal. Cardiovascular: Rate and Rhythm: Normal rate and regular rhythm. Heart sounds: No murmur heard. Pulmonary: Effort: Pulmonary effort is normal. No respiratory distress. Breath sounds: Normal breath sounds. Abdominal: Palpations: Abdomen is soft. Tenderness: There is no abdominal tenderness. Musculoskeletal: General: No swelling. Cervical back: Neck supple. Skin: General: Skin is warm and dry. Capillary Refill: Capillary refill takes less than 2 seconds. Neurological: Mental Status: She is alert and oriented to person, place, and time. GCS: GCS eye subscore is 4. GCS verbal subscore is 5. GCS motor subscore is 6. Cranial Nerves: Cranial nerves 2-12 are intact. Sensory: Sensation is intact. Motor: Motor function is intact. Coordination: Coordination is intact. Psychiatric: Mood and Affect: Mood normal. Studies and Interpretation Labs Reviewed URINALYSIS AND REFLEX TO MICROSCOPIC AND CULTURE - Abnormal Result Value Color, ur Yellow Clarity, ur Clear Specific gravity, ur 1.012 pH, urine 6.5 Protein, ur ql Negative Glucose, ur ql Negative Ketones, ur Negative Bilirubin, ur Negative Blood, ur Negative Urobilinogen, ur 2.0 (*) Nitrite, ur Negative Leukocyte esterase, ur 2+ (*) UA reflex comment Reflex to microscopic UA will be performed. CBC WITH AUTO DIFFERENTIAL - Abnormal WBC 10.0 (*) Hgb 11.9 Hct 37.8 Plt 188 MPV 11.0 RBC 4.51 MCV 83.8 MCH 26.4 (*) MCHC 31.5 (*) RDW CV 13.8 RDW SD 41.6 NRBC abs 0.00 COMPREHENSIVE METABOLIC PANEL - Abnormal Sodium 138 Potassium, pl 3.4 Chloride 104 CO2 25 Anion gap 9 BUN 6 Creatinine 0.44 (*) Glucose 76 Calcium 8.9 Bilirubin, total 0.3 Protein, pl 6.9 Albumin 3.9 Alk phos 96 ALT 9 AST 12 DIFFERENTIAL AUTO - Abnormal Neutrophil abs 7.6 (*) Imm gran abs 0.2 (*) Lymphocyte abs 1.3 Monocyte abs 0.9 (*) Eosinophil abs 0.1 Basophil abs 0.0 Neutrophil pct 75.8 Imm gran pct 1.6 Lymphocyte pct 12.6 Monocyte pct 9.2 Eosinophil pct 0.6 Basophil pct 0.2 URINALYSIS, MICROSCOPIC ONLY - Abnormal WBC, ur 0-5 RBC, ur 3-5 (*) Epithelial cells, squamous, ur 1-5 Mucous, ur Present (*) Culture Reflex Comment Value: Reflex conditions for urine culture (WBC >10) not met. EGFR eGFR >90 TROPONIN T HIGH-SENSITIVITY 2-HOUR Trop T hs <6 Trop T hs delta 0 Trop T hs interp Insignificant TROPONIN T HIGH-SENSITIVITY SERIES (BASELINE, 2HR, 4HR, 6HR) Trop T hs <6 ABO/RH TROPONIN T HIGH-SENSITIVITY SERIES (BASELINE, 2HR, 4HR, 6HR) TROPONIN T HIGH-SENSITIVITY 4-HR TROPONIN T HIGH-SENSITIVITY 6-HOUR POCT GLUCOSE DEVICE Glucose, POC 78 Glucose comment 1 Use This Result Glucose comment 2 RN/MD Notified POCT GLUCOSE DEVICE Glucose, POC 101 Glucose comment 1 Use This Result Glucose comment 2 RN/MD Notified Medications sodium chloride 0.9% bolus 1,000 mL (1,000 mL intravenous New Bag 12/13/231919) No orders to display Medical Decision Making Medical Decision Making Clinical problems/dx: Mariam Lea is a 23 y.o. female who presents with lightheadedness. Data analysis -Independent historian -Patient seen and evaluated, available studies reviewed -Prior available records reviewed, triage notes reviewed DDx: Near-syncope secondary to vasovagal episode versus metabolic derangement versus dehydration versus other -Plan/Test: Labs, imaging, EKG, observation, heart tones, reassessment Interpretation of tests ED Course ED Course as of 12/13/231935 Time: 12/12 1925 Value: Glucose comment 2: RN/MD Notified Comment: (Reviewed) By: Tevin Menon MD Time: 12/12 1934 Comment: Pt By: Tevin Menon MD Time: 12/13 1935 Comment: Pt tolerating PO. Pt states that she feels much better. By: Tevin Menon MD Explanation of disposition: Results and plan explained to the patient, patient understands agrees. All questions answered. Procedures ED Final Diagnosis and Discharge information 1. Lightheadedness Disposition Discharge Note: This H+P was created with the aid of dictation software, thus there may be some word substitutions or errors Tevin Menon MD 12/13/231937 * Linden Leal - 12/13/2023 7:01 PM CDT heart tones 144. Linden Leal 12/13/231910 * Jeff Jackson RN - 12/13/2023 2:02 PM CDT [facility] called as a code green. Pt was getting her 3 hour glucose tolerance test drawn and began to feel dizzy, lightheaded, and stated she needed to sit down. Pt reports regaining senses and then vomiting. Pt aox4 upon arrival in department. documented in this encounter Plan of Treatment Pending Results Name Type Priority Associated Diagnoses Date /Time Troponin T high-sensitivity series (baseline, 2hr, 4hr, 6hr) Lab STAT 12/13/2023 2:12 PM CDT Scheduled Orders Name Type Priority Associated Diagnoses Orde r Schedule Troponin T high-sensitivity series (baseline, 2hr, 4hr, 6hr) Lab STAT Once for 1 Occur rences starting 12/13/2023 until 12/13/2023 documented as of this encounter Procedures Procedure Name Priority Date/Time Associated Diagnosis Comments POCT GLUCOSE DEVICE Routine 12/13/2023 4 :36 PM CDT URINALYSIS AND REFLEX TO MICROSCOPIC AND CULTURE STAT 12/13/2023 4:14 PM CDT URINALYSIS, MICROSCOPIC ONLY STAT 12/13/2023 4:14 PM CDT TROPONIN T HIGH-SENSITIVITY 2-HOUR Timed 12/13/2023 4:13 PM CDT ECG 12-LEAD STAT 12/13/2023 2:38 PM CDT POCT GLUCOSE DEVICE Routine 12/13/2023 2 :17 PM CDT TROPONIN T HIGH-SENSITIVITY SERIES (BASELINE, 2HR, 4HR, 6HR) STAT 12/13/2023 2:12 PM CDT EGFR STAT 12/13/2023 2:12 PM CDT DIFFERENTIAL AUTO STAT 12/13/2023 2:1 2 PM CDT CBC WITH AUTO DIFFERENTIAL STAT 12/13/2023 2:12 PM CDT COMPREHENSIVE METABOLIC PANEL STAT 12/13/2023 2:12 PM CDT documented in this encounter Results * POCT glucose (12/13/2023 4:36 PM CDT) Glucose, POC 101 70 - 199 mg/dL Glucose comment 1 Use This Result [facility] Glucose comment 2 RN/MD Notified [facility] Blood 12/13/2023 4:36 PM CDT 12/13/2023 4:36 PM CDT Notinfile Unknown LAB POCT ORDERABLES - DEVICE F inal Result Performing Organization Address [facility] Co de Phone Number [address] [employer] [place] [address] * (ABNORMAL) Urinalysis, microscopic only (12/13/2023 4:14 PM CDT) WBC, ur 0-5 0 - 5 /HPF RBC, ur 3-5(A) 0 - 2 /HPF [facility] Epithelial cells, squamous, ur 1-5 0 - 5 /HPF [facility] Mucous, ur Present(A) [facility] Culture Reflex Comment Reflex conditions for urine culture (WBC >10) not met. [facility] Urine 12/13/2023 4:14 PM CDT 12/13/2023 4:18 PM CDT Tevin Menon MD LAB URINE ORDERABLE S Final Result Performing Organization Address [facility] Co de Phone Number [address] [place] [address] * (ABNORMAL) Urinalysis reflex to microscopic and culture Urine (12/13/2023 4:14 PM CDT) Color, ur Yellow Yellow Clarity, ur Clear Clear [facility] Specific gravity, ur 1.012 1.003 - 1.030 [facility] pH, urine 6.5 [facility] Comment: Interpretive Data ? Urine pH is affected by diet, medications, systemic acid-base disturbances, and renal tubular function. ??pH may affect urinary stone formation. ??For example, urine pH below 6.0 may help reduce the tendency for calcium phosphate stones and pH greater than 6.0 may reduce the tendency for uric acid stone formation. Source: [facility] Current Interpretive Data was last revised on 2017 Protein, ur ql Negative Negative [facility] Glucose, ur ql Negative Negative [facility] Ketones, ur Negative Negative [facility] Bilirubin, ur Negative Negative [facility] Blood, ur Negative Negative [facility] Urobilinogen, ur 2.0(A) <2.0 mg/dL [facility] Nitrite, ur Negative Negative [facility] Leukocyte esterase, ur 2+(A) Negative [facility] UA reflex comment Reflex to microscopic UA will be performed. [facility] Urine 12/13/2023 4:14 PM CDT 12/13/2023 4:18 PM CDT Tevin Menon MD LAB MICROBIOLOGY - GENERAL ORDERABLES Final Result Performing Organization Address [facility] de Phone Number [address] [employer] [place] [address] * Troponin T high-sensitivity 2-hour (12/13/2023 4:13 PM CDT) Trop T hs <6 <=14 ng/L Comment: Interpretive Data For further hscTnT resources including the diagnostic algorithm and an aid in interpretation, copy and paste this link: https://nrl.testcatalog.org/show/hsTrop Current Interpretive Data last revised 2020. Trop T hs delta 0 ng/L [facility] Trop T hs interp Insignificant [facility] Blood 12/13/2023 4:13 PM CDT 12/13/2023 4:18 PM CDT Tevin Menon MD LAB BLOOD ORDERABLE S Final Result Performing Organization Address [facility] Co de Phone Number [address] [employer] [place] [address] * ECG 12 lead (12/13/2023 2:38 PM CDT) [facility] Ventricular Rate EKG/Min [address] [facility] Atrial Rate 90 BPM [facility] FL-Interval (MSEC) 142 ms [facility] QRS-Interval (MSEC) 70 ms [facility] QT-Interval (MSEC) 354 ms [facility] QTc 433 ms [facility] P Powersite 44 degrees [facility] R Powersite 45 degrees [facility] T Powersite -3 degrees [facility] Diagnosis Normal sinus rhythm Cannot rule out Anterior infarct , age undetermined Decreased r wave ??voltage in V3, most likely lead misplacement. Abnormal ECG When compared with ECG of 04-SEP-2023 08:51, Inverted T waves have replaced nonspecific T wave abnormality in Inferior leads Suggest repeat EKG Confirmed by MITALI LIMON M.D. ([id number]) on 12/13/2023 10:55:44 PM [facility] 12/13/2023 2:38 PM CDT 12/13/2023 10:55 PM CDT us Tevin Menon MD ECG ORDERABLES Fin al Result Performing Organization Address City/[facility]/ZIP Co de Phone Number [facility] * POCT glucose (12/13/2023 2:17 PM CDT) [facility] Glucose, POC 78 70 - 199 mg/dL Glucose comment 1 Use This Result [facility] Glucose comment 2 RN/MD Notified [facility] Blood 12/13/2023 2:17 PM CDT 12/13/2023 2:17 PM CDT us Notinfile Unknown LAB POCT ORDERABLES - DEVICE F inal Result [facility] [address] [facility] Department [place] [address] * Troponin T high-sensitivity series (baseline, 2hr, 4hr, 6hr) (12/13/2023 2:12 PM CDT) Pathologist [facility] Trop T hs <6 <=14 ng/L Comment: Interpretive Data For further hscTnT resources including the diagnostic algorithm and an aid in interpretation, copy and paste this link: https://nrl.testcatalog.org/show/hsTrop Current Interpretive Data last revised 2020. Blood 12/13/2023 2:12 PM CDT 12/13/2023 2:15 PM CDT us Tevin Menon MD LAB BLOOD ORDERABLE S Final Result [facility] [address] [facility] Department [place] [address] * eGFR (12/13/2023 2:12 PM CDT) [facility] eGFR >90 >=60 mL/min/1. 73 m2 Comment: Interpretive Data Reference Interval Normal ?>/= 90 mL/min/1.73m2 Mildly decreased* ? 60 - 89 mL/min/1.73m2 Mildly to moderately decreased ?45 - 59 mL/min/1.73m2 Moderately to severely decreased ??30 - 44 mL/min/1.73m2 Severely decreased ?15 - 29 mL/min/1.73m2 Kidney Failure ?< 15 ??mL/min/1.73m2 *Relative to young adult level Estimated glomerular filtration rate is determined by the 2020 CKD-EPI equation recommended by the National Kidney Foundation (A Unifying Approach to GFR Estimation: Recommendations of the NKF-ASK Task Force on Reassessing the Inclusion of Race in Diagnosing Kidney Disease, JASN 202). The CKD-EPI equation should not be used for patients with unstable renal function and has not been validated in children and those over 70. Current interpretive data was last reviewed 2021. Blood 12/13/2023 2:12 PM CDT 12/13/2023 2:15 PM CDT us Tevin Menon MD LAB BLOOD ORDERABLE S Final Result [facility] [address] [facility] Department [place] [address] * (ABNORMAL) Differential, auto (12/13/2023 2:12 PM CDT) Neutrophil abs 7.6(H) 1.5 - 6.5 K/cumm Imm gran abs 0.2(H) 0.0 - 0.1 K/cumm [facility] Lymphocyte abs 1.3 0.8 - 3.3 K/cumm [facility] Monocyte abs 0.9(H) 0.2 - 0.8 K/cumm [facility] Eosinophil abs 0.1 0.0 - 0.5 K/cumm [facility] Basophil abs 0.0 0.0 - 0.1 K/cumm [facility] Neutrophil pct 75.8 % [facility] Comment: Interpretive Data Percent cell count reference ranges are not reported, since discordance with absolute values may lead to misinterpretation of CBC data. Current Interpretive Data was last revised on 2017. Imm gran pct 1.6 % [facility] Comment: Interpretive Data Percent cell count reference ranges are not reported, since discordance with absolute values may lead to misinterpretation of CBC data. Current Interpretive Data was last revised on 2017. Lymphocyte pct 12.6 % [facility] Comment: Interpretive Data Percent cell count reference ranges are not reported, since discordance with absolute values may lead to misinterpretation of CBC data. Current Interpretive Data was last revised on 2017. Monocyte pct 9.2 % [facility] Comment: Interpretive Data Percent cell count reference ranges are not reported, since discordance with absolute values may lead to misinterpretation of CBC data. Current Interpretive Data was last revised on 2017. Eosinophil pct 0.6 % [facility] Comment: Interpretive Data Percent cell count reference ranges are not reported, since discordance with absolute values may lead to misinterpretation of CBC data. Current Interpretive Data was last revised on 2017. Basophil pct 0.2 % [facility] Comment: Interpretive Data Percent cell count reference ranges are not reported, since discordance with absolute values may lead to misinterpretation of CBC data. Current Interpretive Data was last revised on 2017. Blood 12/13/2023 2:12 PM CDT 12/13/2023 2:15 PM CDT us Tevin Menon MD LAB BLOOD ORDERABLE S Final Result [facility] [address] [facility] Department [place] [address] * (ABNORMAL) Comprehensive metabolic panel (12/13/2023 2:12 PM CDT) Sodium 138 135 - 145 mmol/L Potassium, pl 3.4 3.3 - 4.9 mmol/L [facility] Chloride 104 97 - 110 mmol/L [facility] CO2 25 22 - 32 mmol/L [facility] Anion gap 9 2 - 15 mmol/L [facility] BUN 6 6 - 25 mg/dL [facility] Creatinine 0.44(L) 0.60 - 1.10 mg/dL [facility] Glucose 76 70 - 199 mg/dL [facility] Comment: Interpretive Data Fasting glucose >/= 126 mg/dl is diagnostic for diabetes. ?? Fasting is defined as no caloric intake for at least 8 hours. Fasting glucose between 100 mg/dl to 125 mg/dl is diagnostic of prediabetes. In a patient with classic symptoms of hyperglycemia or hyperglycemic crisis, a random glucose >/= 200 mg/dl is diagnostic for diabetes. In the absence of unequivocal hyperglycemia, results should be confirmed by repeat testing. The classification and Diagnosis of Diabetes Diabetes Care 202; 46: S19-S40. Current interpretive data was last revised 2022. Calcium 8.9 8.5 - 10.3 mg/dL [facility] Bilirubin, total 0.3 0.1 - 1.2 mg/dL [facility] Protein, pl 6.9 6.5 - 8.5 g/dL [facility] Albumin 3.9 3.5 - 5.0 g/dL [facility] Alk phos 96 40 - 130 Units/L [facility] ALT 9 7 - 45 Units/L [facility] AST 12 10 - 45 Units/L [facility] Blood 12/13/2023 2:12 PM CDT 12/13/2023 2:15 PM CDT us Tevin Menon MD LAB BLOOD ORDERABLE S Final Result [facility] [address] [employer] [place], [place] [id number] * (ABNORMAL) CBC with auto differential (12/13/2023 2:12 PM CDT) [facility] WBC 10.0(H) 3.8 - 9.9 K/cumm Hgb 11.9 11.9 - 15.5 g/dL [facility] Hct 37.8 35.6 - 45.5 % [facility] Plt 188 150 - 400 K/cumm [facility] MPV 11.0 9.1 - 12.3 fL [facility] RBC 4.51 3.90 - 5.20 M/cumm [facility] MCV 83.8 81.3 - 96.4 fL [facility] MCH 26.4(L) 27.1 - 33.3 pg [facility] MCHC 31.5(L) 32.3 - 35.7 g/dL [facility] RDW CV 13.8 11.1 - 14.9 % [facility] RDW SD 41.6 35.7 - 48.1 fL [facility] NRBC abs 0.00 0.00 - 0.01 K/cumm [facility] Blood 12/13/2023 2:12 PM CDT 12/13/2023 2:15 PM CDT us Tevin Menon MD LAB BLOOD ORDERABLE S Final Result [facility] [address] [employer] [place], [place] [id number] documented in this encounter Visit Diagnoses Diagnosis Lightheadedness- Primary Dizziness and giddiness documented in this encounter Administered Medications Inactive Administered Medications - up to 3 most recent administrations Medication Order MAR Action Action Date Dose Rate Site sodium chloride 0.9% bolus 1,000 mL 1,000 mL, intravenous, Once, On Sat12/13/23 at 1420, For 1 dose New Bag 12/13/2023 7:20 PM CDT 1,000 mL documented in this encounter Active and Recently Administered Medications Times are shown in CDT. Scheduled Medication Order 12/11/2023 12/12/2023 12/13/2023 sodium chloride 0.9% bolus 1,000 mL (COMPLETED) 1,000 mL, intravenous, Once, On Sat12/13/23 at 1420, For 1 dose 1920 (New Bag - Prov ider: Amira Allen, RN)1930 (Stopped - Provider: Linden Leal) documented in this encounter Orders Medications Ordered That Arthur ht Not Have Been Administered Count Last Ordered Date First Ordered Date sodium chloride 0.9% bolus 1,000 mL 1 12/12 documented in this encounter Care Teams Dental Technician Instructor Relationship Specialty Start Date End Date No, Physician PCP - General 08/06/22 documented as of this encounter
--- OUTSIDE RECORDS SUMMARY | 2024-03-15 14:51 | XMS_ITS | Data Portability ---
Author Organization [employer] , 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 Plan of Treatment Reminders Order Date Submit Date Provider Last Modified By Organization Details Last Modified Time Details Appointments None recorded. Lab streptococc us group B, culture, unspecified specimen 2022 023 TANIA [facility], [address] [place], [address], 3 10:48:16 test, [facility] [address] [place], [address], 4 14:29:41 Referral None recorded. Procedures None recorded. Surgeries None recorded. Imaging US, obstetric, follow-up 2022 023 kbritsch Not available 3 10:36:32 US, transvagina l 2023 024 TANIA Not available 4 17:10:56 Medication Orders None recorded. Patient TargetsNo targets recorded. Patient InstructionsNo instructions recorded. Reason for Referral None Reported. Results Created Date Observation Date Name Description Value Unit Range Abnormal Flag Note LastModifiedBy Organization Detail LastModifiedTime 01/30/20 23 01/31/2023 STREP TOCOC CUS, GROUP B CULTU RE streptococcu s, group B culture SEE NOTE abnormal STREP TOCOC CUS, GROUP B CULTU RE Micro Numbe r: [id number] Test Statu s: Final Speci men Sourc e: Recto vagin al Speci men Quali ty: Adequ ate Resul t: Group B Strep tococ cus isola collin Beta- hemol ytic strep tococ ci are predi ctabl y susce ptibl e to Penic illin and other beta- lacta ms. Susce ptibi lity testi ng not routi melissa perfo rmed. Pleas e conta ct the labor atory withi n 3 days if susce ptibi lity testi ng is savannah ed. Note per CDC guide lines optim al recov cam is achie caroline by swabb ing both the lower vagin a and rectu m (thro ugh the anal sphin cter) . Not Available [facility] [address] [place], [address], 01/31/2023 10:48:16 02/14/20 23 02/13/2023 CBC WITH DIFF WBC 10.8 x10'3 /uL 4.5-11 .0 Not Available [facility] (Lab) [facility] [address] [place], [address], 02/13/2023 07:54:56 02/14/20 23 02/13/2023 CBC WITH DIFF RBC 4.37 x10'6 /uL 4.20-5 .40 Not Available [facility] (Lab) [facility]? [address] [facility] [place], [address], 02/13/2023 07:54:56 02/14/20 23 02/13/2023 CBC WITH DIFF hemoglobin 10.0 g/dL 12.0-1 6.0 low Not Available [facility] (Lab) [facility]? [place], [address], 02/13/2023 07:54:56 02/14/20 23 02/13/2023 CBC WITH DIFF hematocrit 33.1 % 38.0-4 8.0 low Not Available [facility] [address] [place], [address], 02/13/2023 07:54:56 02/14/20 23 02/13/2023 CBC WITH DIFF MCV 75.7 fL 81.0-9 9.0 low Not Available [facility]Lab[facility] [address] [place], [address], 02/13/2023 07:54:56 02/14/20 23 02/13/2023 CBC WITH DIFF MCH 22.9 pg 27.0-3 1.0 low Not Available [facility] (Lab[facility] [address]? [place], [address], 02/13/2023 07:54:56 02/14/20 23 02/13/2023 CBC WITH DIFF MCHC 30.2 g/dL 32.0-3 6.0 low Not Available [facility] (Lab) [facility] [address]? [place], [address], 02/13/2023 07:54:56 02/14/20 23 02/13/2023 CBC WITH DIFF RDW 15.8 % 11.5-1 4.5 high Not Available [facility] (Lab) [address]? [place], [address], 02/13/2023 07:54:56 02/14/20 23 02/13/2023 CBC WITH DIFF platelet count 194 x10'3 /uL 130-[address] [facility]Lab[facility] [address]? [place], [address], 02/13/2023 07:54:56 02/14/20 23 02/13/2023 CBC WITH DIFF MPV 11.9 fL 9.3-12 .2 Not Available [facility] (Lab) [address]? [place], [address], 02/13/2023 07:54:56 02/14/20 23 02/13/2023 CBC WITH DIFF diff type AUTOMA COLLIN DIFFER ENTIAL Not Available [facility] (Lab) [address]? [place], [address], 02/13/2023 07:54:56 02/14/20 23 02/13/2023 CBC WITH DIFF neutrophils 71.2 % Not Available [facility] (Lab) [address]? [place], [address], 02/13/2023 07:54:56 02/14/20 23 02/13/2023 CBC WITH DIFF lymphocytes 21.3 % Not Available [facility] (Lab) [address]? [place], [address], 02/13/2023 07:54:56 02/14/20 23 02/13/2023 CBC WITH DIFF monocytes 6.0 % Not Available [facility] (Lab) [address]? [place], [address], 02/13/2023 07:54:56 02/14/20 23 02/13/2023 CBC WITH DIFF eosinophils 0.3 % Not Available [facility] (Lab) [address]? [place], [address], 02/13/2023 07:54:56 02/14/20 23 02/13/2023 CBC WITH DIFF basophils 0.2 % Not Available [facility] (Lab) [address]? [place], [address], 02/13/2023 07:54:56 02/14/20 23 02/13/2023 CBC WITH DIFF immature granulocytes 1.0 % Not Available [facility] (Lab) [address]? [place], [address], 02/13/2023 07:54:56 02/14/20 23 02/13/2023 CBC WITH DIFF abs. neutrophils 7.71 x10'3 /uL 1.80-7 .70 high Not Available [facility] (Lab) [address]? [place], [address], 02/13/2023 07:54:56 02/14/20 23 02/13/2023 CBC WITH DIFF abs. lymphocytes 2.31 x10'3 /uL 1.00-4 .80 Not Available [facility] (Lab) [address]? [place], [address], 02/13/2023 07:54:56 02/14/20 23 02/13/2023 CBC WITH DIFF abs. monocytes 0.65 x10'3 /uL 0.24-0 .86 Not Available [facility] (Lab) [address]? [place], [address], 02/13/2023 07:54:56 02/14/20 23 02/13/2023 CBC WITH DIFF abs. eosinophils 0.03 x10'3 /uL 0.04-0 .36 low Not Available [facility] (Lab) [address]? [place], [address], 02/13/2023 07:54:56 02/14/20 23 02/13/2023 CBC WITH DIFF abs. basophils 0.02 x10'3 /uL 0.01-0 .08 Not Available [facility] (Lab) [address]? [place], [address], 02/13/2023 07:54:56 02/14/20 23 02/13/2023 CBC WITH DIFF abs. immature grans 0.11 x10'3 /uL 0.00-0 .49 Not Available [facility] (Lab) [address]? [place], [address], 02/13/2023 07:54:56 02/14/20 23 02/13/2023 DRUGS OF ABUSE PANEL , URINE amphetamines , urine NEGATI VE neg Not Available [facility] (Lab) [address] [place], [address], 02/13/2023 08:15:16 02/14/20 23 02/13/2023 DRUGS OF ABUSE PANEL , URINE barbituates, urine NEGATI VE neg Not Available [facility] (Lab) [address] [place], [address], 02/13/2023 08:15:16 02/14/20 23 02/13/2023 DRUGS OF ABUSE PANEL , URINE benzodiazapi jonathan, urine NEGATI VE neg Not Available [facility] (Lab) [address]? [place], [address], 02/13/2023 08:15:16 02/14/20 23 02/13/2023 DRUGS OF ABUSE PANEL , URINE cannabinoids /THC, urine NEGATI VE neg Not Available [facility] (Lab) [address] [place], [address], 02/13/2023 08:15:16 02/14/20 23 02/13/2023 DRUGS OF ABUSE PANEL , URINE cocaine, urine NEGATI VE neg Not Available [facility] (Lab) [facility] [address], [address], 02/13/2023 08:15:16 02/14/20 23 02/13/2023 DRUGS OF ABUSE PANEL , URINE methadone, urine NEGATI VE neg Not Available [facility] (Lab) [facility] [facility] [place], [address], 02/13/2023 08:15:16 02/14/20 23 02/13/2023 DRUGS OF ABUSE PANEL , URINE opiates, urine NEGATI VE neg Not Available [facility] (Lab) [facility] [facility] [place], [address], 02/13/2023 08:15:16 02/14/20 23 02/13/2023 DRUGS OF ABUSE PANEL , URINE phencyclidin es, urine NEGATI VE neg NOTE: RESUL TS OF THIS DRUG SCREE N SHOUL D BE USED FOR MEDIC AL PURPO SES ONLY AND NOT FOR LEGAL OR EMPLO YMENT PURPO SES. POSIT MAYKEL RESUL TS ARE NOT CONFI RMED. MEDIC ATION S CONTA INING EPHED RINE MAY CAUSE FALSE POSIT MAYKEL AMPHE TAMIN E CALL [phone], LAB, TO REQUE ST CONFI RMATI ON TESTI NG. IF CREAT ININE IS <40 mg/dL . RECOL LECTI ON IS SHAHLA CABALLREO. AMPHE TAMIN E- 500 NG/ML RENALDO TURAT E- 200 NG/ML BENZO DIAZE PINES - 200 NG/ML THC- 50 NG/ML COCAI NE- 150 NG/ML METHA DONE- 300 NG/ML OPIAT E- 300 MG/ML PCP- 25 NG/ML Not Available [facility] (Lab) [address]? [place], [address], 02/13/2023 08:15:16 02/14/20 23 02/13/2023 DRUGS OF ABUSE PANEL , URINE creatinine, urine 157.0 mg/dL 28- Not Available [facility] (Lab) [facility]? [place], [address], 02/13/2023 08:15:16 02/14/20 23 02/13/2023 UA REFLE X TO MICRO specimen type URINE CLEAN CATCH Not Available [facility] (Lab) [address]? [place], [address], 02/13/2023 08:15:48 02/14/20 23 02/13/2023 UA REFLE X TO MICRO color YELLOW Not Available [facility] (Lab) [address]? [place], [address], 02/13/2023 08:15:48 02/14/20 23 02/13/2023 UA REFLE X TO MICRO clarity CLEAR Not Available [facility] (Lab) [facility]? [place], [address], 02/13/2023 08:15:48 02/14/20 23 02/13/2023 UA REFLE X TO MICRO specific gravity 1.022 1.001- 1.030 Not Available [facility] (Lab) [facility]? [place], [address], 02/13/2023 08:15:48 02/14/20 23 02/13/2023 UA REFLE X TO MICRO pH, urine 6.0 5.0-9. 0 Not Available [facility] (Lab) [facility]? [place], [address], 02/13/2023 08:15:48 02/14/20 23 02/13/2023 UA REFLE X TO MICRO leukocytes 25 neg abnormal Not Available [facility] (Lab) [facility] [address]? [place], [address], 02/13/2023 08:15:48 02/14/20 23 02/13/2023 UA REFLE X TO MICRO nitrite NEGATI VE neg Not Available [facility] (Lab) [address]? [place], [address], 02/13/2023 08:15:48 02/14/20 23 02/13/2023 UA REFLE X TO MICRO protein 20 mg/dL <30 Not Available [facility] (Lab) [address]? [place], [address], 02/13/2023 08:15:48 02/14/20 23 02/13/2023 UA REFLE X TO MICRO glucose NORMAL mg/dL norm Not Available [facility] (Lab) [facility]? [place], [address], 02/13/2023 08:15:48 02/14/20 23 02/13/2023 UA REFLE X TO MICRO ketone 60 mg/dL neg abnormal Not Available [facility] (Lab) [facility]? [place], [address], 02/13/2023 08:15:48 02/14/20 23 02/13/2023 UA REFLE X TO MICRO urobilinogen NORMAL mg/dL norm Not Available [facility] (Lab) [facility]? [place], [address], 02/13/2023 08:15:48 02/14/20 23 02/13/2023 UA REFLE X TO MICRO bilirubin NEGATI VE mg/dL neg Not Available [facility] (Lab) [facility] [address]? [place], [address], 02/13/2023 08:15:48 02/14/20 23 02/13/2023 UA REFLE X TO MICRO blood NEGATI VE neg Not Available [facility] (Lab) [facility]? [place], [address], 02/13/2023 08:15:48 02/14/20 23 02/13/2023 UA REFLE X TO MICRO mucous MANY /lpf Not Available [facility] (Lab) [facility] [address]? [place], [address], 02/13/2023 08:15:48 02/14/20 23 02/13/2023 UA REFLE X TO MICRO WBC 3 /hpf <6 Not Available [facility] (Lab) [facility] [address]? [place], [address], 02/13/2023 08:15:48 02/14/20 23 02/13/2023 UA REFLE X TO MICRO RBC 2 /hpf <6 Not Available [facility] (Lab) [facility]? [place], [address], 02/13/2023 08:15:48 02/14/20 23 02/13/2023 UA REFLE X TO MICRO squamous epithelial RARE /hpf Not Available [facility] (Lab) [facility] [address]? [place], [address], 02/13/2023 08:15:48 02/14/20 23 02/13/2023 TYPE AND SCREE N ABO/Rh(D) A POSITI VE Not Available [facility] (Lab) [facility] [address]? [place], [address], 02/13/2023 08:39:22 02/14/20 23 02/13/2023 TYPE AND SCREE N antibody screen NEGATI VE Not Available [facility] (Lab) [facility] [address]? [place], [address], 02/13/2023 08:39:22 02/14/20 23 02/13/2023 TYPE AND SCREE N xm expiration 2022,2 359 Not Available [facility] (Lab) [facility] [address]? [place], [address], 02/13/2023 08:39:22 02/14/20 23 02/13/2023 SYPHI LIS IGG ANTIB REKHA syphilis IgG antibody NON-RE ACTIVE nr Not Available [facility] (Lab) [address]? [place], [address], 02/13/2023 09:57:23 02/14/20 23 02/13/2023 HIV 1,2 AB AND P24 AG HIV 1,2 Ab and P24 Ag NON-RE ACTIVE nr Not Available [facility] (Lab) [facility] [address]? [place], [address], 02/13/2023 11:04:23 06/07/19 24 06/08/2023 HCG, TOTAL , QN HCG, total, qn 32 mIU/m L high Refer ence Range Nonpr egnan t or preme nopau esa <5 Postm enopa usal <10 Value s from diffe rent assay metho ds may vary. The use of this assay to monit or or to diagn ose patie nts with cance r or any condi tion unrel ated to pregn stephanie has not been clear ed or appro caroline by the FDA or the [facility] er of the assay . Not Available [facility] ([facility]) [facility] [address], [place], [address], 06/08/2023 12:23:50 07/09/19 24 07/09/2023 pregn stephanie test, urine HCG positi ve Not Available [facility] [address] [place], [address], 07/09/2023 13:57:48 01/16/2001/15/2023 US, obste tric, follo w-up No observ ation record ed. [email or web address] [address], [place], [address], 01/16/2023 12:59:13 07/09/19 24 07/09/2023 US, trans vagin al No observ ation record ed. [email or web address] [address], [place], [address], 07/10/2023 10:36:59 Result Notes None recorded. Problems Name Problem SNOMED Code Status Onset Date Resolution Date Notes Provider Name and Address Organization Details Recorded Time Finding of pattern of menstrua l cycle Completed 201903/29/2020 Other specifie d irregula r menstrua tion; Progress : Stable Added By: Ananya Baldwin Add to Current Problems : NO ProblemS tatus: Resolve Not Available [facility] 22:17:58 Vaginiti s and vulvovag initis Completed 201706/24/2018 Vagintiu s Unspecif ied; Progress : Stable Added By: Phillip Gomez Add to Current Problems : NO ProblemS tatus: Resolve Vaginal discharg e; Progress : Stable Added By: Ruth Cardona Add to Current Problems : NO ProblemS tatus: Resolve; Start Date : 02/24/20 16 Not Available [facility] 2 22:17:49 Subacute and chronic vaginiti s [id number] Completed 201708/09/2017 Vaginal discharg e; Location : None Severity : Moderate Progress : Stable Added By: Ruth Cardona Add to Current Problems : YES ProblemS tatus: Resolve Subacute and chronic vaginiti s; Severity : Moderate Progress : Stable Added By: Ruth Cardona Add to Current Problems : NO ProblemS tatus: Resolve; Start Date : 02/24/20 16 Not Available [facility] 1 03:12:28 Female genital organ symptoms [id number] Completed 201502/28/2016 Swelling of vulva; Progress : Stable Added By: Daisy Dewey Add to Current Problems : NO ProblemS tatus: Resolve Not Available [facility] 2 22:18:02 Syncope and collapse [id number] Completed 201703/29/2020 Syncope; Progress : Stable Added By: Ruth Cardona Add to Current Problems : NO ProblemS tatus: Resolve Syncope and collapse ; Progress : Stable Added By: Ruth Cardona Add to Current Problems : NO ProblemS tatus: Resolve Not Available [facility] 2 22:17:43 Threaten ed miscarri age [id number] Completed 201709/16/2017 Threaten ed ; Location : None Progress : Stable Added By: Nadiya Colorado Add to Current Problems : YES ProblemS tatus: Resolve Not Available [facility] 2 22:17:47 Gestatio n period, 36 weeks [id number] Completed 201703/29/2020 36 weeks gestatio n of pregnanc y; Progress : Stable Added By: Ann Alexander Add to Current Problems : NO ProblemS tatus: Resolve Not Available [facility] 2 22:18:00 Inflamma tory disease of female genital structur e [id number] Completed 201803/29/2020 Vaginiti s, vulvitis and vulvovag initis in diseases classifi ed elsewher e; Progress : Stable Added By: Queta Villatoro Add to Current Problems : NO ProblemS tatus: Resolve Not Available [facility] 2 20:51:29 Disease [id number] Completed 201502/28/2016 Other specifie d conditio ns associat ed with female genital organs and menstrua l cycle; Progress : Stable Added By: Daisy Dewey Add to Current Problems : NO ProblemS tatus: Resolve Not Available [facility] 2 22:17:48 Insertio n of intraute rine contrace ptive device done [id number] 9109 Completed 201706/24/2018 Encounte r for insertio n of intraute rine contrace ptive device; Location : None Severity : Moderate Progress : Stable Added By: Toya Ramirez Add to Current Problems : YES ProblemS tatus: Current Encounte r for insertio n of intraute rine contrace ptive device; Severity : Moderate Progress : Stable Added By: Toya Ramirez Add to Current Problems : NO ProblemS tatus: Resolve Not Available [facility] 1 03:12:30 Antenata l ultrasou nd finding [id number] Completed 201903/29/2020 Encounte r for pregnanc y test, result unknown; Progress : Stable Added By: Ata Lehman Add to Current Problems : NO ProblemS tatus: Resolve Not Available [facility] 2 22:17:59 Vulvovag initis [id number] Completed 201706/24/2018 Other specifie d inflamma tion of vagina and vulva; Progress : Stable Added By: Phillip Gomez Add to Current Problems : NO ProblemS tatus: Resolve Vagintiu s Unspecif ied; Location : None Progress : Stable Added By: Phillip Gomez Add to Current Problems : YES ProblemS tatus: Resolve Not Available [facility] 2 22:17:43 Uterine size for dates discrepa ncy Completed 201711/23/2017 Uterine size-tahir e discrepa ncy, third trimeste r; Progress : Stable Added By: Ann Alexander Add to Current Problems : NO ProblemS tatus: Resolve Not Available [facility] 2 22:17:48 Gestatio n period, 38 weeks [id number] Completed 201508/03/2016 38 weeks gestatio n of pregnanc y; Progress : Stable Added By: Rola Ortiz Add to Current Problems : NO ProblemS tatus: Resolve Not Available [facility] 2 22:17:44 Moderate major depressi on, single episode [id number] Completed 201608/03/2016 Major depressi ve disorder , single episode, moderate ; Progress : Stable Added By: Ruth Cardona Add to Current Problems : NO ProblemS tatus: Resolve Not Available [facility] 2 22:17:59 Noninfla mmatory disorder of the vagina [id number] Completed 201607/17/2016 Vaginal Discharg e; Location : None Progress : Stable Added By: Sol Greenwood Add to Current Problems : YES ProblemS tatus: Resolve Vaginal Discharg e; Location : None Progress : Stable Added By: Ruth Cardona Add to Current Problems : YES ProblemS tatus: Resolve; Start Date : 04/27/19 17 Nonin flammato ry disorder of vagina, unspecif ied; Progress : Stable Added By: Sol Greenwood Add to Current Problems : NO ProblemS tatus: Resolve; Start Date : 04/27/19 17 Not Available [facility] 2 22:17:43 Gestatio n period, 34 weeks [id number] Completed 201505/11/2016 34 weeks gestatio n of pregnanc y; Progress : Stable Added By: Nadiya Colorado Add to Current Problems : NO ProblemS tatus: Resolve Not Available [facility] 2 20:51:30 Family planning educatio n done [id number] 9104 Completed 201610/02/2016 Family planning advice; Location : None Severity : Moderate Progress : Stable Added By: Ruth Cardona Add to Current Problems : YES ProblemS tatus: Resolve Not Available [facility] 1 03:12:33 Nausea and vomiting [id number] Completed 201504/24/2016 Nausea with vomiting ; Progress : Stable Added By: Ruth Cardona Add to Current Problems : NO ProblemS tatus: Resolve Morning nausea with pregnanc y; Location : None Progress : Stable Added By: Ruth Cardona Add to Current Problems : YES ProblemS tatus: Resolve; Start Date : 12/02/19 16 Nause a with vomiting , unspecif ied; Progress : Stable Added By: Ruth Cardona Add to Current Problems : NO ProblemS tatus: Resolve; Start Date : 12/02/19 16 Not Available [facility] 2 22:17:38 Contrace ptive sheath status [id number] Completed 201803/29/2020 Encounte r for routine checking of intraute rine contrace ptive device; Progress : Stable Added By: Ann Alexander Add to Current Problems : NO ProblemS tatus: Resolve Not Available [facility] 2 20:51:30 Uses combined oral contrace ption [id number] Completed 201609/15/2017 Encounte r for initial prescrip tion of contrace ptive pills; Progress : Stable Added By: Herminio Ashraf Add to Current Problems : NO ProblemS tatus: Resolve Initiati on of oral contrace ptives; Location : None Progress : Stable Added By: Herminio Ashraf Add to Current Problems : YES ProblemS tatus: Resolve Not Available [facility] 2 22:17:50 Candidal vulvovag initis [id number] Completed 201607/20/2016 Yeast vaginiti s; Location : None Progress : Stable Added By: Leyla Noble Add to Current Problems : YES ProblemS tatus: Resolve Yeast vaginiti s; Location : None Progress : Stable Added By: Leyla Noble Add to Current Problems : YES ProblemS tatus: Resolve; Start Date : 01/27/20 16 Not Available [facility] 2 22:17:44 Complica tion related to pregnanc y Completed 201501/31/2016 Morning nausea with pregnanc y; Severity : Moderate Progress : Stable Added By: Ruth Cardona Add to Current Problems : NO ProblemS tatus: Resolve Not Available [facility] 1 03:12:34 Abnormal finding on antenata l screenin g of mother [id number] Completed 201505/22/2016 Abnormal finding on antenata l screenin g; Progress : Stable Added By: Ruth Cardona Add to Current Problems : NO ProblemS tatus: Resolve Unspecif ied abnormal findings on antenata l screenin g of mother; Progress : Stable Added By: Ruth Cardona Add to Current Problems : NO ProblemS tatus: Resolve Not Available [facility] 2 22:17:59 Bleeding [id number] Completed 201803/29/2020 Abnormal uterine and vaginal bleeding , unspecif ied; Progress : Stable Added By: Ann Alexander Add to Current Problems : NO ProblemS tatus: Resolve Not Available [facility] 2 22:17:53 Educatio n Completed 201603/29/2020 Encounte r for other general counseli ng and advice on contrace ption; Severity : Moderate Progress : Stable Added By: Enriqueta Fernandez Add to Current Problems : NO ProblemS tatus: Resolve Not Available [facility] 1 03:12:37 Clinical finding Completed 201503/29/2020 state, incident al; Progress : Stable Added By: Ann Alexander Add to Current Problems : NO ProblemS tatus: Resolve Not Available [facility] 2 22:17:49 Oral contrace ption NOS Completed 201609/15/2017 Initiati on of oral contrace ptives; Location : None Severity : Moderate Progress : Stable Added By: Herminio Ashrfa Add to Current Problems : YES ProblemS tatus: Resolve Not Available [facility] 1 03:12:38 Generali zed anxiety disorder [id number] Completed 201706/24/2018 Anxiety; Progress : Stable Added By: Leyla Noble Add to Current Problems : NO ProblemS tatus: Resolve Generali zed anxiety disorder ; Progress : Stable Added By: Leyla Noble Add to Current Problems : NO ProblemS tatus: Resolve Anxiety; Location : None Progress : Stable Added By: Leyla Noble Add to Current Problems : NO ProblemS tatus: Current Not Available [facility] 2 22:17:53 Depressi ve disorder [id number] Completed 201608/03/2016 Depressi on; Progress : Stable Added By: Ruth Cardona Add to Current Problems : NO ProblemS tatus: Resolve Not Available [facility] 2 22:17:48 Gestatio n period, 37 weeks [id number] Completed 201506/04/2016 37 weeks gestatio n of pregnanc y; Progress : Stable Added By: Nadiya Colorado Add to Current Problems : NO ProblemS tatus: Resolve Not Available [facility] 2 22:17:38 Urinary tract infectio us disease [id number] Completed 201706/25/2017 Test of Cure; Location : None Severity : Moderate Progress : Stable Added By: Sherry Butt Add to Current Problems : YES ProblemS tatus: Resolve Urinary tract infectio n, site not specifie d; Severity : Moderate Progress : Stable Added By: Sherry Butt Add to Current Problems : NO ProblemS tatus: Resolve; Start Date : 05/21/19 17 UTI; Location : None Severity : Moderate Progress : Stable Added By: Nadiya Colorado Add to Current Problems : YES ProblemS tatus: Resolve; Start Date : 05/21/19 17 Not Available [facility] 1 03:12:38 Gestatio n period, 35 weeks [id number] Completed 201703/29/2020 35 weeks gestatio n of pregnanc y; Progress : Stable Added By: Ann Alexander Add to Current Problems : NO ProblemS tatus: Resolve Not Available [facility] 2 22:18:01 Tammy infectio n of genital region Completed 201507/20/2016 Candidia sis of vulva and vagina; Progress : Stable Added By: Leyla Noble Add to Current Problems : NO ProblemS tatus: Resolve Not Available [facility] 2 22:17:58 On examinat ion - vagina Completed 201903/29/2020 Noninfla mmatory disorder of cervix uteri, unspecif ied; Progress : Stable Added By: Enriqueta Fernandez Add to Current Problems : NO ProblemS tatus: Resolve Not Available [facility] 2 20:51:30 Breast lump [id number] Completed 201706/24/2018 Breast mass; Progress : Stable Added By: Estela Corado Add to Current Problems : NO ProblemS tatus: Resolve Unspecif ied lump in breast; Progress : Stable Added By: Estela Corado Add to Current Problems : NO ProblemS tatus: Resolve Breast mass; Location : None Progress : Stable Added By: Estela Corado Add to Current Problems : YES ProblemS tatus: Current Not Available [facility] 2 22:17:46 Acute vaginiti s [id number] Completed 201803/29/2020 Acute vaginiti s; Progress : Stable Added By: Ann Alexander Add to Current Problems : NO ProblemS tatus: Resolve Not Available [facility] 2 22:18:02 Poor growth affectin g manageme nt [id number] Completed 201706/24/2018 Pregnanc y affected by poor growth, antepart um conditio n or complica tion; Location : None Progress : Stable Added By: nAn Alexander Add to Current Problems : YES ProblemS tatus: Current Pregnanc y affected by poor growth, antepart um conditio n or complica tion; Progress : Stable Added By: Ann Alexander Add to Current Problems : NO ProblemS tatus: Resolve Small for dates; Location : None Progress : Stable Added By: Ann Alexander Add to Current Problems : YES ProblemS tatus: Resolve; Start Date : 09/25/19 18 Not Available [facility] 2 22:17:47 [id number]106 Completed 201703/29/2020 Encounte r for supervis ion of other normal pregnanc y, second trimeste r; Progress : Stable Added By: Phillip Gomez Add to Current Problems : NO ProblemS tatus: Resolve Encounte r for supervis ion of other normal pregnanc y, third trimeste r; Progress : Stable Added By: Nadiya Colorado Add to Current Problems : NO ProblemS tatus: Resolve; Start Date : 11/11/19 16 Not Available [facility] 2 22:18:00 Gestatio n period, 31 weeks [id number] Completed 201703/29/2020 31 weeks gestatio n of pregnanc y; Progress : Stable Added By: Phillip Gomez Add to Current Problems : NO ProblemS tatus: Resolve Not Available [facility] 2 20:51:31 anatomy study Completed 201709/16/2017 Encounte r for anatomic survey; Location : None Progress : Stable Added By: Nadiya Colorado Add to Current Problems : YES ProblemS tatus: Resolve Not Available [facility] 2 22:17:38 Urinary tract infectio us disease [id number] Completed 201607/20/2016 UTI; Progress : Stable Added By: Nadiya Colorado Add to Current Problems : NO ProblemS tatus: Resolve Urinary tract infectio n, site not specifie d; Progress : Stable Added By: Sherry Butt Add to Current Problems : NO ProblemS tatus: Resolve Not Available [facility] 2 22:17:39 Educatio n Completed 201610/02/2016 Family planning advice; Location : None Progress : Stable Added By: Ruth Cardona Add to Current Problems : YES ProblemS tatus: Resolve Encounte r for other general counseli ng and advice on contrace ption; Progress : Stable Added By: Enriqueta Fernandez Add to Current Problems : NO ProblemS tatus: Resolve; Start Date : 07/03/19 17 Famil y planning advice; Location : None Progress : Stable Added By: Rola Ortiz Add to Current Problems : YES ProblemS tatus: Resolve; Start Date : 07/03/19 17 Not Available [facility] 2 22:17:44 Candidia sis of vagina [id number] Completed 201502/28/2016 Vaginal yeast infectio n; Location : None Progress : Stable Added By: Daisy Dewey Add to Current Problems : YES ProblemS tatus: Resolve Not Available [facility] 2 22:17:44 Subacute and chronic vaginiti s [id number] Completed 201504/24/2016 Subacute and chronic vaginiti s; Progress : Stable Added By: Ruth Cardona Add to Current Problems : NO ProblemS tatus: Resolve Vaginal discharg e; Location : None Progress : Stable Added By: Ruth Cardona Add to Current Problems : YES ProblemS tatus: Resolve Not Available [facility] 2 22:17:49 Antenata l screenin g Completed 201709/16/2017 Antenata l screenin g; unspecif ied; Location : None Progress : Stable Added By: Ann Alexander Add to Current Problems : YES ProblemS tatus: Current; Start Date : 03/29/19 18 Anten atal screenin g; unspecif ied; Location : None Progress : Stable Added By: Rola Ortiz Add to Current Problems : YES ProblemS tatus: Resolve; Start Date : 11/11/19 16 Anten atal screenin g; unspecif ied; Location : None Progress : Stable Added By: Nadiya Colorado Add to Current Problems : YES ProblemS tatus: Resolve; Start Date : 11/11/19 16 Encou nter for antenata l screenin g of mother; Progress : Stable Added By: Ann Alexander Add to Current Problems : NO ProblemS tatus: Resolve; Start Date : 11/11/19 16 Encou nter for other specifie d antenata l screenin g; Progress : Stable Added By: Nadiya Colorado Add to Current Problems : NO ProblemS tatus: Resolve Not Available [facility] 2 22:17:54 Insertio n of intraute rine contrace ptive device Completed 201703/29/2020 Encounte r for insertio n of intraute rine contrace ptive device; Location : None Progress : Stable Added By: Toya Ramirez Add to Current Problems : YES ProblemS tatus: Current Encounte r for insertio n of intraute rine contrace ptive device; Progress : Stable Added By: Enriqueta Fernandez Add to Current Problems : NO ProblemS tatus: Resolve Not Available [facility] 2 22:18:00 Normal pregnanc y [id number] Completed 201706/21/2022 Medical visit for normal pregnanc y; Location : None Progress : Stable Added By: Phillip Gomez Add to Current Problems : YES ProblemS tatus: Current Medical visit for normal pregnanc y; Location : None Progress : Stable Added By: Nadiya Colorado Add to Current Problems : YES ProblemS tatus: Current Medical visit for normal pregnanc y; Location : None Progress : Stable Added By: Nadiya Colorado Add to Current Problems : YES ProblemS tatus: Resolve; Start Date : 11/11/19 16 Medic al visit for normal pregnanc y; Location : None Progress : Stable Added By: Rola Ortiz Add to Current Problems : YES ProblemS tatus: Resolve; Start Date : 11/11/19 16 Venita Nielsen null, [place] [facility] 3 16:18:03 Pregnanc y 46088815 Completed 202205/07/2023 Michelle Mckeonlister null, [place] [facility] 4 12:41:34 High risk pregnanc y due to history of labor 243922597 Completed 2022 consider 17-OHP weekly 16-36 wks Her OB records could not find delivery note but her last OB vist in her G2 she was 36 weeks Michelle Chastity null, [place] [facility] 4 12:41:32 High risk pregnanc y due to history of labor [id number] Active 2022 consider 17-OHP weekly 16-36 wks Her OB records could not find delivery note but her last OB vist in her G2 she was 36 weeks Michelle Mckeonlister null, [place] - [facility] 4 12:41:32 Past pregnanc y history of prematur e delivery [id number] Completed 2022 Michelle Chastity null, [place] - [facility] 4 12:41:31 Past pregnanc y history of prematur e delivery 946220118 Active 2022 Michelle Chastity null, [place] - [facility] 4 12:41:32 Problem Notes None recorded. Procedures Surgical History Date Name Laterality Status Provider Name and Address Organization Details Recorded Time 02/06/20 23 NST completed Vivi Mclean CNM [address] [place], [address], [facility] 02/12/2023 08:56:39 08/01/19 23 Date of Last Pap Smear completed Wendi Nielsen [facility] 08/14/2022 12:00:12 tonsillectomy and adenoidectomy completed Ruth Cardona, MATTHEW [address] [facility], [place], [address], [facility] 07/01/2022 20:43:47 Breast Augmentation completed Nicole Farley [facility] IV 07/18/2022 11:19:21 Imaging Results Imaging Date Name Status LastModified by Organization Details LastModified Time 01/15/2023 US, obstetric, follow-up completed [email or web address] Martha [address], [place], [address], 01/16/2023 12:59:13 07/09/2023 US, transvaginal completed [email or web address] Martha [address], [place], [address], 07/10/2023 10:36:59 Procedure Notes None recorded. Medical Equipment None Reported. Allergies Allergen ID Allergen Name Allergen Category Reaction Reaction Severity Criticality Documentation Date Start Date Code Code System Note Provider Name and Address Organization Details Recorded Time 897470 Levaquin medicatio n Not available Not available Not available 01/13/20212015 80479 2 RxNorm Sever ity: Moder ate; Comme nt: Aller gy Delet ed On: 07/17; Not Available [facility] 2 13:16:17 262223 Cipro medicatio n Not available Not available Not available 01/13/20212015 97711 3 RxNorm React ion: Rash, Breat tom probl em;Se verit y: Sever e; Not Available [facility] 01:09:26 251741 Macrobid medicatio n Not available Not available Not available 01/13/20212017 27312 1 RxNorm Sever ity: Moder ate; Comme nt: Aller gy Delet ed On: 03/29; Not Available [facility] 2 13:16:17 800594 Medicinal product containin g cephalosp isabelle and acting as antibacte rial agent (product) medicatio n Not available Not available Not available 01/13/20212017 85507 9009 SNOMED Sever ity: Suzanna solano; Commxiomara nt: Piero fink Delet ed On: 03/29; Not Available [facility] 2 13:16:17 231453 ciproflox acin medicatio n Not available Not available Not available 01/13/20212020 2551 RxNorm React ion: Breat tom probl em;Se verit y: Suzanna solano; Wendi Nielsen null, [facility] 3 11:59:42 200470 Flagyl medicatio n confusion mild high 02/25/2023 6 RxNorm Anusha haines, [facility] 3 10:14:21 Medications Name Sig Start Date Stop Date Status Note LastModified by Organization Details LastModified Time buspirone 5 mg tablet Take 1 tablet(s ) by mouth bid 09/05 completed Buspiron e HCl 5mg Tablet Allow Substitu tion: True Refill Denied: No Not Available Not Available Not Available Colace 100 mg capsule 1 PO BID as needed 02/08 completed Colace 100mg Capsules RxNorm: 1924448 Allow Substitu tion: True Refill Denied: No Not Available Not Available Not Available doxycycli ne hyclate 100 mg capsule TAKE 1 CAPSULE (100 MG TOTAL) BY MOUTH 2 (TWO) TIMES DAILY FOR 7 DAYS. 07/02 completed Not Available Not Available Not Available clindamyc in HCl 300 mg capsule 1 PO BID 12/30 completed Clindamy kindra HCl 300mg Capsules Allow Substitu tion: True Refill Denied: No Not Available Not Available Not Available fluconazo le 150 mg tablet TAKE ONE TABLET BY MOUTH A ONE-TIME DOSE MAY REPEAT IN 7 DAYS IF SYMPTOMS PERSIST 03/26 completed Not Available Not Available Not Available sulfameth oxazole 400 mg-trimet hoprim 80 mg tablet take 2 tablets by oral route BID 03/17 completed sulfamet hoxazole -trimeth oprim 400-80 mg oral tablet RxNorm: 691081 Allow Substitu tion: True Refill Denied: No Edited by: marcin(Enriqueta Coombs ) on 03/17/20 Stopped by: marcin(Enriqueta Coombs ) on 03/17/20 20 Not Available Not Available Not Available ampicilli n 500 mg capsule Take 1 capsule( s) by mouth q6h 06/04 completed Ampicill in 500mg Capsules RxNorm: 399194 Allow Substitu tion: True Refill Denied: No Not Available Not Available Not Available promethaz ine 12.5 mg tablet TAKE 1 TABLET BY MOUTH FOUR TIMES DAILY 12/17 completed Not Available Not Available Not Available ondansetr on HCl 4 mg tablet TAKE 1 TABLET BY MOUTH EVERY 4 TO 6 HOURS NEEDED 12/17 completed Not Available Not Available Not Available Pyridium 200 mg tablet Take 1 tablet(s ) by mouth tid 12/24 completed Pyridium 200mg Tablet RxNorm: 9015036 Allow Substitu tion: True Refill Denied: No Not Available Not Available Not Available metronida zole 500 mg tablet TAKE 1 TABLET BY MOUTH TWICE DAILY FOR 7 DAYS. DO NOT CONSUME ALCOHOL DURING AND UP TO 1 DAY AFTER USE active Not Available Not Available No t Available nifedipin e ER 30 mg tablet,ex tended release TAKE 1 TABLET BY MOUTH ONCE DAILY NEXT DOSE DUE AT 6 PM 12/17 completed Not Available Not Available Not Available Terazol 3 0.8 % vaginal cream Insert 1 applicat orful(s) in vagina at bedtime for 3 days 01/31 completed Terazol 3 0.8% Vaginal Cream RxNorm: 210909 Allow Substitu tion: True Refill Denied: No Refill Note: Auto Aged Refill DateOccu rred: 12/30/19 16 Not Available Not Available Not Available triamcino lone acetonide 0.1 % topical cream Apply cream 2-4 times daily PRN 02/23 completed Triamcin olone Acetonid e 0.1% Cream RxNorm: 4501462 Allow Substitu tion: True Refill Denied: No Refill DateOccu rred: 12/30/19 16 Not Available Not Available Not Available hydrocort isone acetate 25 mg rectal supposito ry INSERT 1 SUPPOSIT ORY RECTALLY TWICE DAILY NEEDED FOR HEMORRHO IDS (DO NOT GIVE IF 3RD OR 4TH DEGREE LACERATI ON) active Not Available Not Available No t Available amoxicill in 875 mg tablet TAKE 1 TABLET BY MOUTH TWICE DAILY FOR 10 DAYS 12/17 completed Not Available Not Available Not Available Metrogel Vaginal 0.75 % (37.5 mg/5 gram) Insert 1 applicat orful(s) in vagina at bedtime for 5 days 07/15 completed MetroGel 0.75% Vaginal Gel RxNorm: 669351 Allow Substitu tion: True Refill Denied: No Not Available Not Available Not Available famotidin e 20 mg tablet TAKE 1 TABLET BY MOUTH TWICE DAILY NEEDED FOR HEARTBUR N OR REFLUX 12/17 completed Not Available Not Available Not Available promethaz ine 12.5 mg rectal supposito ry Insert 1 supposit ory every 6 hours by rectal route. 12/17 completed Not Available Not Available Not Available promethaz ine 25 mg tablet Take 1 tablet every 6 hours by oral route as needed. 2023 active May take 1/2 tablet instead of a full tablet Not Available Not Available Not Available cephalexi n 500 mg tablet 1 tablet PO BID 12/27 completed Cephalex in 500mg Tablet Allow Substitu tion: True Refill Denied: No Not Available Not Available Not Available ibuprofen 600 mg tablet TAKE 1 TABLET BY MOUTH EVERY 6 HOURS NEEDED FOR PAIN, FEVER OR HEADACHE S active Not Available Not Available No t Available methylpre dnisolone 4 mg tablets in a dose pack TAKE BY MOUTH DIRECTED ON INSIDE OF PACKAGE active Not Available Not Available No t Available albuterol sulfate HFA 90 mcg/actua tion aerosol inhaler INHALE 2 PUFFS BY MOUTH EVERY 4 HOURS NEEDED FOR WHEEZING active Not Available Not Available No t Available Terazol 7 0.4 % vaginal cream Insert 1 applicat orful(s) in vagina at bedtime for 7 days 02/23 completed Terazol 7 0.4% Vaginal Cream RxNorm: 195379 Allow Substitu tion: True Refill Denied: No Not Available Not Available Not Available sertralin e 50 mg tablet TAKE 1/2 (ONE-KATHY F) TAB BY MOUTH DAILY FOR 1 WEEK, THEN INCREASE TO 1 TAB BY MOUTH DAILY AFTER THIS 12/17 completed Not Available Not Available Not Available medroxypr ogesteron e 150 mg/mL intramusc ular suspensio n inject 1 millilit er (150 mg) by intramus cular route every 3 months 07/02 completed medroxyP ROGESTER one 150 mg/mL intramus cular Suspensi on RxNorm: 6395232 Allow Substitu tion: True Refill Denied: No Edited by: Yulia Moss) on 06/14/19 21 Stopped by: Yulia Moss) on Not Available Not Available Not Available Vistaril 50 mg capsule Take 1 capsule every 6 hours by oral route as needed. 01/29 completed Not Available Not Available Not Available metoclopr amide 10 mg tablet TAKE 1 TABLET BY MOUTH EVERY 6 HOURS NEEDED FOR NAUSEA AND VOMITING 12/17 completed Not Available Not Available Not Available amoxicill in 875 mg-potass ium clavulana te 125 mg tablet TAKE 1 TABLET BY MOUTH TWICE DAILY FOR 10 DAYS 03/26 completed Not Available Not Available Not Available Slow Release Iron 160 mg (50 mg iron) tablet,ex tended release one tab po daily 05/08 completed Slow Fe* Slow FE Allow Substitu tion: True Refill Denied: No Refill Note: Changed to Drug in Same Class Refill DateOccu rred: 04/27/19 17 Not Available Not Available Not Available Bactrim DS 800 mg-160 mg tablet 1 po BID x 3 days 02/12 completed Bactrim DS 160mg/80 0mg Tablet RxNorm: 582152 Allow Substitu tion: True Refill Denied: No Not Available Not Available Not Available medroxypr ogesteron e 150 mg/mL intramusc ular syringe inject 1 millilit er (150 mg) by intramus cular route every 3 months 06/21 completed medroxyP ROGESTER one 150 mg/mL intramus cular Syringe RxNorm: 9192147 Allow Substitu tion: True Refill Denied: No Edited by: Yulia Moss) on 06/14/19 21 Stopped by: Yulia Moss) on Not Available Not Available Not Available cyclobenz aprine 5 mg tablet TAKE 1 TABLET BY MOUTH EVERY 8 HOURS NEEDED 12/17 completed Not Available Not Available Not Available 04/13 (28) 1 mg-20 mcg (21)/75 mg (7) tablet Take 1 tablet(s ) by mouth daily as directed . 03/29 completed 04/13 28 Day 20mcg/1m g/75mg Tablet RxNorm: 2204686 Allow Substitu tion: True Refill Denied: No Not Available Not Available Not Available nitrofura ntoin monohydra te/macroc rystals 100 mg capsule TAKE 1 CAPSULE BY MOUTH WITH FOOD EVERY 12 HOURS FOR 5 DAYS 12/17 completed Not Available Not Available Not Available Depo-SubQ provera 104 104 mg/0.65 mL subcutane ous syringe INJECT 1 SYRINGE SUBCUTAN EOUSLY ONCE EVERY 12-13 WEEKS active Not Available Not Available No t Available amoxicill in BID 04/12 completed Amoxicil arlen 875mg Tablet RxNorm: 854812 Allow Substitu tion: True Refill Denied: No Refill DateOccu rred: 03/23/20 16 Not Available Not Available Not Available 07/18 completed Not Available Not Available Not Available Mirena 07/05 completed Mirena RxNorm: 6373 Allow Substitu tion: True Refill Denied: No Refill DateOccu rred: 06/25/19 19 Edited by: Enriqueta Reynolds ) on 07/06/19 20 Stopped by: Enriqueta Reynolds ) on 07/06/19 20 Not Available Not Available Not Available Hair,Skin and Nails 07/02 completed Hair,Ski n and Nails Allow Substitu tion: False Refill Denied: No Refill DateOccu rred: 03/29/19 21 Edited by: July Talbert ) on 03/29/19 21 Stopped by: July Talbert ) on Not Available Not Available Not Available FeroSul 325 mg (65 mg iron) tablet TAKE 1 TABLET BY MOUTH ONCE DAILY active Not Available Not Available No t Available 28 mg iron-800 mcg tablet TAKE 1 TABLET BY MOUTH EVERY NIGHT AT BEDTIME active Not Available Not Available No t Available Diclegis 10 mg-10 mg tablet,de layed release Take 2 tablets every day by oral route. 12/17 completed Not Available Not Available Not Available Xulane 150 mcg-35 mcg/24 hr transderm al patch Apply 1 patch(es ) to buttock, abdomen, upper outer arm q week for 3 weeks of each month 12/14 completed Xulane 150mcg/3 5mcg per 24hr Transder mal Patch RxNorm: 0481532 Allow Substitu tion: True Refill Denied: No Not Available Not Available Not Available Colace Clear 50 mg capsule 1 PO BID as needed 11/10 completed Colace 100mg Capsules RxNorm: 5476887 Allow Substitu tion: True Refill Denied: No Not Available Not Available Not Available Vitals Date Recorded Body height Body mass index (BMI) Body weight Body temperature Systolic blood pressure Diastolic blood pressure Provider Name and Address Organization Details Last Updated DateTime 3 160.02 cm 23.9 kg/m2 87434.9 6995 g 98 [degF] 100 mm[Hg] 60 mm[Hg] Dago Castelan [facility] 3 10:59:07 Date Recorded Body height Provider Name an d Address Organization Details Last Updated DateTime 01/15/2023 160.02 cm Michelle [place] [facility] 01/15/2023 12:22:35 Date Recorded Body height Body mass index (BMI) Body temperature Systolic blood pressure Diastolic blood pressure Provider Name and Address Organization Details Last Updated DateTime 3 160.02 cm 24.6 kg/m2 98 [degF] 102 mm[Hg] 70 mm[Hg] Michelle [place] [facility] 3 13:55:44 Date Recorded Body weight Provider Name an d Address Organization Details Last Updated DateTime 01/29/2023 31209.20847 g Vivi Mclean, [facility] [address] [place], [address], [place] [employer] [facility] 01/29/2023 14:29:56 Date Recorded Body height Body mass index (BMI) Body temperature Systolic blood pressure Diastolic blood pressure Provider Name and Address Organization Details Last Updated DateTime 3 160.02 cm 25.2 kg/m2 97.8 [degF] 102 mm[Hg] 76 mm[Hg] Michelle Mckeonlister [facility] 3 11:41:19 Date Recorded Body weight Provider Name an d Address Organization Details Last Updated DateTime 02/05/2023 48488.501446 g Vivi Mclean, [facility] [address] [place], [address], [place] [employer] [facility] 02/12/2023 08:56:05 Date Recorded Body height Body mass index (BMI) Body weight Body temperature Systolic blood pressure Diastolic blood pressure Provider Name and Address Organization Details Last Updated DateTime 4 160.02 cm 21.3 kg/m2 68248.0 8 g 97.8 [degF] 98 mm[Hg] 64 mm[Hg] Belkys Cutlera [facility] [employer] [facility] 4 14:20:45 Social History Question Answer Notes LastModified by Organizat ion Details LastModified Time Tobacco Smoking Status Never Smoker Nicole Miguelito haines, [place] [facility] 07/18/2022 11:19:21 What Is Your Level Of Alcohol Consumption? None [email or web address] Information not available 07/18/2022 Are You Blind Or Do You Have Difficulty Seeing? No [email or web address] Information not available 12/17/2022 Are You Currently Employed? No [email or web address] Information not available 12/17/2022 Are You Deaf Or Do You Have Serious Difficulty Hearing? No [email or web address] Information not available 12/17/2022 What Type Of Diet Are You Following? REGULAR [email or web address] Information not available 01/03/2023 Do You Or Have You Ever Used E-cigarettes Or Vape? Never Used Electronic Cigarettes Information not available 07/18/2022 What Is The Highest Grade Or Level Of School You Have Completed Or The Highest Degree You Have Received? [id number] [email or web address] Information not available 12/17/2022 How Many Children Do You Have? 3 Information not available 03/26/2023 What Is Your Relationship Status? Information not available 07/18/2022 Are You Sexually Active? Yes [email or web address] Information not available 06/21/2022 Do You Use Any Illicit Or Recreational Drugs? No [email or web address] Information not available 12/17/2022 Do You Or Have You Ever Used Any Other Forms Of Tobacco Or Nicotine? No Information not available 03/26/2023 Sex: Female Functional Status Question Answer Note LastModified by Organization D etails LastModified Time What is your exercise level? Moderate Information not available 07/18/2022 Mental Status None recorded. Family History Relationship Description Onset Age of this Age Resolved Age Notes LastModified by Organization Details LastModified Time Maternal Grandmother Diabetes mellitus [email or web address] Not available 06/21 16:23:53 Medical History Condition Response Other Cancer N High Blood Pressure N Colon Cancer N Cytomegalovirus N Hyperthyroidism N Herpes (HSV) N Breast Cancer N Blood Transfusion N MRSA N Lung Cancer N Hypothyroidism N Depression Y Incontinence N Panic Attacks N Neurological Disorder N Deep Vein Thrombosis N Anxiety Disorder N Autoimmune disease N Arthritis N Tuberculosis/Positive PPD N Shingles N Polycystic Ovarian Syndrome N Cervical Cancer N Chlamydia N Hematuria N Stroke N Varicosities N Crohn's Disease N Seasonal allergies N Alzheimer's/Dementia N COPD/Emphysema N HPV/Genital Warts N Endometriosis N IBS (Irritable Bowel Syndrome) N History of Abnormal Pap N High Cholesterol N Liver Disease N Kidney Infection N Fibromyalgia N Ulcer N Kidney Disease N HIV N Gallbladder disease N Sickle Cell Disease/Trait N Von Willebrand disease N ADD/ADHD N Eating Disorder N Anemia N Diabetes Mellitus (non-insulin dependent ) N Ovarian Problems N Multiple Sclerosis N Gonorrhea N Frequent Urinary Tract infections N Osteopenia N Headaches/migraines N GERD (reflux) N Ovarian Cancer N Diabetes (insulin dependent) N Seizures/Epilepsy N Fibroids N Heart Attack N Asthma N Lupus N Endometrial Cancer N Rubella N Blood Clotting Disorder N Bipolar Disorder N Diabetes Mellitus (during ) N Ulcerative Colitis N Hepatitis N Heart Disease N Pulmonary Embolism N RPR N Chicken Pox N Osteoporosis N Gynecological History Statement/Question Response Flow Heavy Date of LMP 05/19/2022 HPV Vaccine N Date of Last Pap Smear 07/31/2022 Current Control Method None Age at Menarche 11 Obstetrics History GPAL:G 4 P 2 1 1 3 Type Value Full Term 2 Spontaneous 1 Premature 1 Living 3 Total 4 Past Encounters Encounter ID Performer Location Encounter Start Date Encounter Closed Date Diagnosis/Indication Diagnosis SNOMED-CT Code Diagnosis ICD10 Code [id number] Ruth Duran MATTHEW Cardona [facility] [address] [place] [address] 07/02/2022 15:11:42 07/03/2022 11:45:02 Uncertain viability of 229899946 O36.80X9 [id number] Ruth Cardona OZI[facility] [address] [place] [address] 07/18/2022 10:54:05 07/18/2022 16:53:43 Uncertain viability of 160835538 O36.80X9 [id number] Giovanni Gage MD [facility] [address] [place] [address] 07/31/2022 11:43:52 07/31/2022 15:50:48 Routine care 246017352 Z34.01 Z34.81 O09.511 O09.521 Screening for malignant neoplasm of cervix 609337623 Z12.4 Screening for disorder 946532214 Z11.3 N89.9 Past pregn stephanie history of premature delivery 106146882 Z87.51 High risk due to history of labor 778620900 O09.068 [id number] Leyla Noble MD [facility] [address] [place] [address] 08/14/2022 10:28:03 08/14/2022 15:59:38 Gestation period, 12 weeks 90159678 Z3A.12 Vaginal bl eeding complicating early 879118721 O20.9 Dysuria 83441892 R30.0 [id number] MAT[facility]W [facility] [address] [place] [address] 12/17/2022 15:11:04 12/17/2022 17:10:12 Gestation period, 30 weeks 24004376 Z3A.30 Routine an tenatal care 193161544 Z34.83 [id number] Sol Fely larose, REPLACED BY [facility] [address] [place] [address] 01/04/2023 10:47:00 01/04/2023 13:46:27 Gestation period, 31 weeks 68696346 Z3A.31 [id number] [facility] [address] [place] [address] 01/15/2023 12:19:55 01/21/2023 12:03:03 Uterine size for dates discrepancy 531952065 O26.849 Normal pre gnancy in multigravida 8465030468 58743 Z34.83 [id number] [facility] [address] [place] [address], [place] [address] 01/29/2023 13:48:47 01/29/2023 17:30:48 Gestation period, 36 weeks 01632421 Z3A.36 Routine an tenatal care 484736185 Z34.93 [id number] Vivi Mclean RE[facility] [address] [place] [address] 02/05/2023 11:26:04 02/06/2023 12:16:17 Gestation period, 37 weeks 73789809 Z3A.37 Routine an tenatal care 295811468 Z34.93 Past pregn stephanie history of premature delivery 750709118 Z87.51 High risk due to history of labor 289709955 O09.219 Reduced fe hilda movement 731027525 O36.8199 [id number] MATTHEW JORDAN-PATRICIA [facility] [address] [place] [address] 07/09/2023 13:49:18 07/09/2023 16:33:08 test positive 846579604 Z32.01 Health Concerns Section Related Observation LastModified by Organization Detai ls LastModified Time None Recorded Concern Status LastModified by Organization Details LastModified Time None Recorded Advance Directives Directive None Recorded Payers Encounter Date Sequence Insurance Name Policy Number Policy Khalil Covered Member ID Khalil Member ID Guarantor Name 01/04/2023 1 [place] [id number] Arian R Lea [id number] Mariam R Lea 01/04/2023 2 [facility] (MEDICAID HMO) [id number] Mariam R Lea [id number] Mariam R Lea 01/15/2023 1 [place] [id number] 2 Arian R Lea [id number] Mariam R Lea 01/15/2023 2 [facility] (MEDICAID HMO) [id number] Mariam R Lea [id number] Mariam R Lea 01/29/2023 1 [place] [id number] 2 Arian R Lea [id number] Mariam R Lea 01/29/2023 2 [facility] (MEDICAID HMO) [id number] Mariam R Lea [id number] Mariam R Lea 02/05/2023 1 [place] [id number] 2 Arian R Lea [id number] Mariam R Lea 02/05/2023 2 [facility] (MEDICAID HMO) [id number] 0003 Mariam R Lea [id number] Mariam R Lea 07/09/2023 1 [place] [id number] 2 Arian R Lea [id number] Mariam R Lea Notes Date Note Type Note Provider Name and Address Organization Details Recorded Time 01/04/2023 text/html Mariam is here t gennaro for a routine OB visit. She is currently at {{6 7 8 9 10 11 12 13 14 15 16 17 18 19 20 21 22 23 24 25 26 27 28 29 30 31 32* 33 3 4 35 36 37 38 39 40 4 1}} weeks gestation. vitamins: {{yes* no}} She {{has* has not}} felt movement. She denies any complaints of the presence of vaginal bleed, leaking fluid, abdominal cramps, nausea, vomiting, headache or visual disturbances. Sol Wheeler CNM [address] [place], [address], [facility] 01/04/2023 11:16:00 01/15/2023 text/html OB ProblemReport ed bypatient.Associated Symptoms:no abdominal pain; no cramping; no contractions; normal movement; no bleeding; no ROM; no vaginal discharge; no vaginal/vulvar itching or irritation; no edema; no visual changes; no headache; no dizziness; no breathlessness Vivi Mclean CNM [address] [place], [address], [facility] [employer] IV 01/20/2023 15:34:29 01/29/2023 text/html OB ProblemReport ed bypatient.Associated Symptoms:no abdominal pain; no cramping; no contractions; normal movement; no bleeding; no ROM; no vaginal discharge; no vaginal/vulvar itching or irritation; no edema; no visual changes; no headache; no breathlessness;dizzin ess [facility] [place], [address], [facility] [employer] [facility] 01/29/2023 14:30:11 02/05/2023 text/html OB ProblemReport ed bypatient.Associated Symptoms:no abdominal pain; no cramping; no contractions; normal movement; no bleeding; no ROM; no vaginal discharge; no vaginal/vulvar itching or irritation; no edema; no visual changes; no headache; no dizziness; no breathlessness Vivi Mclean CNM [facility] [place], [address], [employer] [facility] IV 02/12/2023 08:57:52 07/09/2023 text/html Pt is here for U S confirmation. Pt is unaware of her LMP. EDC by 02/15/24.No additional concerns. ADRIANO JORDAN [facility] [place], [address], [employer] [facility] IV 07/09/2023 14:36:02 OBGyn Episode Ob Episode Information Episode Created Date Number of Fetuses Patient Bloodtype Patient rh Status Prepregnancy Weight lbs Domestic Partner Domestic Partner Phone Father Name Platform Stapler Status 06/09/19 22 1 CLOSED Fetus Data First Name Last Name Admitted to NICU Weight (g) Sex Living Outcome Pediatric Complications Fetus ID Race Codes Race Delivery Type , Spontane ous [id number] Power Calculation POWER Calculation Method Initial Power Date Initial Exam Date Initial Exam Provider Initial Ultrasound Date Last Menstrual Period Date Ultra Sound Weeks Gestation Conception by IVF Embryo Age at Transfer Date of Transfer 0 Eighteen To Twenty Week Power Update Ultra Sound Date Fundal Height At Umbil Quickening Date Ultra Sound Latest Weeks Gestation Final Power Confirmed By Final Power Confirmed Date Final Power Date Ultra Sound Latest Days Gestation 0 0 Menstrual History Last Menstrual Date Menses Monthly On Bcp Conception Prior Menses Frequency Hcg Plus Date Menarche Onset Age Delivery Information Delivery Date Delivery Type Labor Anesthesia Weeks Gestation Incision Type Labor Labor Length Hrs Delivered By Post Complications Tubal Sterilization Discharge Date Comments 6 None 6 false SAB Discharge Information Feeding Method Contraceptive Method Maternal HG B and HCT Levels Ob Episode Information Episode Created Date Number of Fetuses Patient Bloodtype Patient rh Status Prepregnancy Weight lbs Domestic Partner Domestic Partner Phone Father Name Platform Stapler Status 06/09/19 22 1 CLOSED Fetus Data First Name Last Name Admitted to NICU Weight (g) Sex Living Outcome Pediatric Complications Fetus ID Race Codes Race Delivery Type 3259.96 5704 F Full Term [id number] Power Calculation POWER Calculation Method Initial Power Date Initial Exam Date Initial Exam Provider Initial Ultrasound Date Last Menstrual Period Date Ultra Sound Weeks Gestation Conception by IVF Embryo Age at Transfer Date of Transfer 0 Eighteen To Twenty Week Power Update Ultra Sound Date Fundal Height At Umbil Quickening Date Ultra Sound Latest Weeks Gestation Final Power Confirmed By Final Power Confirmed Date Final Power Date Ultra Sound Latest Days Gestation 0 0 Menstrual History Last Menstrual Date Menses Monthly On Bcp Conception Prior Menses Frequency Hcg Plus Date Menarche Onset Age Delivery Information Delivery Date Delivery Type Labor Anesthesia Weeks Gestation Incision Type Labor Labor Length Hrs Delivered By Post Complications Tubal Sterilization Discharge Date Comments 7 39.1 false eIOL. Delivered by Renetta Dewey MD. Discharge Information Feeding Method Contraceptive Method Maternal HG B and HCT Levels Ob Episode Information Episode Created Date Number of Fetuses Patient Bloodtype Patient rh Status Prepregnancy Weight lbs Domestic Partner Domestic Partner Phone Father Name Platform Stapler Status 06/09/19 22 1 CLOSED Fetus Data First Name Last Name Admitted to NICU Weight (g) Sex Living Outcome Pediatric Complications Fetus ID Race Codes Race Delivery Type 2692.97 5704 M Prematur e [id number] Power Calculation POWER Calculation Method Initial Power Date Initial Exam Date Initial Exam Provider Initial Ultrasound Date Last Menstrual Period Date Ultra Sound Weeks Gestation Conception by IVF Embryo Age at Transfer Date of Transfer 0 Eighteen To Twenty Week Power Update Ultra Sound Date Fundal Height At Umbil Quickening Date Ultra Sound Latest Weeks Gestation Final Power Confirmed By Final Power Confirmed Date Final Power Date Ultra Sound Latest Days Gestation 0 0 Menstrual History Last Menstrual Date Menses Monthly On Bcp Conception Prior Menses Frequency Hcg Plus Date Menarche Onset Age Delivery Information Delivery Date Delivery Type Labor Anesthesia Weeks Gestation Incision Type Labor Labor Length Hrs Delivered By Post Complications Tubal Sterilization Discharge Date Comments 8 35.5 true H/O IUGR and PROM at [address] [facility] [address] [facility] Discharge Information Feeding Method Contraceptive Method Maternal HG B and HCT Levels Ob Episode Information Episode Created Date Number of Fetuses Patient Bloodtype Patient rh Status Prepregnancy Weight lbs Domestic Partner Domestic Partner Phone Father Name Platform Stapler Status 08/01/19 23 1 A Positive CLOSED Fetus Data First Name Last Name Admitted to NICU Weight (g) Sex Living Outcome Pediatric Complications Fetus ID Race Codes Race Delivery Type false 3005.04 7 true Full Term [id number] Problems Problem Notes Problem Name Start Date End Date Resolution Snomed Code Not e High risk due to history of labor 07/31/2022 [id number] consider 17-OH P weekly 16-36 wks Her OB records could not find delivery note but her last OB vist in her G2 she was 36 weeks Past history of premature delivery 07/31/2022 312207520 Power Calculation POWER Calculation Method Initial Opwer Date Initial Exam Date Initial Exam Provider Initial Ultrasound Date Last Menstrual Period Date Ultra Sound Weeks Gestation Conception by IVF Embryo Age at Transfer Date of Transfer 02/24/20 23 08/01/19 23 07/02/2022 05/19/2022 5 Eighteen To Twenty Week Power Update Ultra Sound Date Fundal Height At Umbil Quickening Date Ultra Sound Latest Weeks Gestation Final Power Confirmed By Final Power Confirmed Date Final Power Date Ultra Sound Latest Days Gestation 0 [email or web address] 01/07/2023 023 0 Pre-leann Flowsheet Flowsheet Date 07/31/2022 Tee Score Blood Edema Fundus Height Fundus Units Glucose Ketones Leukocytes Nitrite Labor Signs Protein Cervic Dilation Cervic Effacement Cervic Station none 12 Type Weight in lbs Pre/Post Dialysis Refused With clothes 111.965197155145 BP Diastolic BP Location Tested BP Systolic BP Type 62 108 sitting Fetus Heart Rate Present A 157 Fetus Movement Comments Explained to her may need 17 -OHP for hx of PTL PTB at 35 weeks. Agrees for NOB labs PAP and UDS. Flowsheet Date 08/14/2022 Tee Score Blood Edema Fundus Height Fundus Units Glucose Ketones Leukocytes Nitrite Labor Signs Protein Cervic Dilation Cervic Effacement Cervic Station Type Weight in lbs Pre/Post Dialysis Refused With clothes 109.838809000748 BP Diastolic BP Location Tested BP Systolic BP Type 66 R arm 102 sitting Fetus Heart Rate Present Fetus Movement Comments Flowsheet Date 12/17/2022 Tee Score Blood Edema Fundus Height Fundus Units Glucose Ketones Leukocytes Nitrite Labor Signs Protein Cervic Dilation Cervic Effacement Cervic Station 30 none Type Weight in lbs Pre/Post Dialysis Refused With clothes 126.874433433310 BP Diastolic BP Location Tested BP Systolic BP Type 72 L arm 118 sitting Fetus Heart Rate Present A 132 Present Fetus Movement A Yes Comments Transfer of Care from [facility]. History of IUGR and PROM at 35 wks, x 2. Lab work in chart. Pt passed 2 hour gct. US with MFM on 12/11 showed growth, 18%tile, head circumference is < 5th Hadlock centile but is not diagnostic of microcephaly (Z score -1.8), GARRICK 12.1 cm, RECOMMEND: Follow up ultrasound only if clinically indicated. No OB complaints. Pt would like Mirena for contraception PP. Flowsheet Date 01/04/2023 Tee Score Blood Edema Fundus Height Fundus Units Glucose Ketones Leukocytes Nitrite Labor Signs Protein Cervic Dilation Cervic Effacement Cervic Station none 31 none Mccracken Bell neg Type Weight in lbs Pre/Post Dialysis Refused With clothes 135.80316641474 BP Diastolic BP Location Tested BP Systolic BP Type 60 100 sitting Fetus Heart Rate Present A 135 Fetus Movement A Yes Comments Flowsheet Date 01/15/2023 Tee Score Blood Edema Fundus Height Fundus Units Glucose Ketones Leukocytes Nitrite Labor Signs Protein Cervic Dilation Cervic Effacement Cervic Station Type Weight in lbs Pre/Post Dialysis Refused BP Diastolic BP Location Tested BP Systolic BP Type Fetus Heart Rate Present A 148 Fetus Movement A Yes Comments Growth at 23.7%, EFW 2230 gr ams, 4-15; GARRICK 14.77cm. Patient nauseated and felt faint during ultrasound. Assisted to side- and head elevated for remainder of ultrasound exam. Patient continues to feel poor. Visitor takes patient to L&D for evaluation Flowsheet Date 01/29/2023 Tee Score Blood Edema Fundus Height Fundus Units Glucose Ketones Leukocytes Nitrite Labor Signs Protein Cervic Dilation Cervic Effacement Cervic Station none 24 cm Type Weight in lbs Pre/Post Dialysis Refused Weight 139.207538540203 BP Diastolic BP Location Tested BP Systolic BP Type 70 102 Fetus Heart Rate Present A 139 Fetus Movement A Yes Comments GBS collected. PTL/PIH preca utions reviewed. Flowsheet Date 02/05/2023 Tee Score Blood Edema Fundus Height Fundus Units Glucose Ketones Leukocytes Nitrite Labor Signs Protein Cervic Dilation Cervic Effacement Cervic Station none 37 cm Type Weight in lbs Pre/Post Dialysis Refused Weight 142.961535970196 BP Diastolic BP Location Tested BP Systolic BP Type 76 102 Fetus Heart Rate Present A 136 Fetus Movement A Yes Comments GBS positive. Denies questio ns or concerns. Requesting 39 week IOL. Scheduled for REMBERTO on 02/17 at 2200 (Dr. Perry aware) Labor/PIH precautions reviewed. Menstrual History Last Menstrual Date Menses Monthly On Bcp Conception Prior Menses Frequency Hcg Plus Date Menarche Onset Age 0205/19/2022 Genetic Screening And Infection History Question Response Note Thalassemia (Macedonian, Frisian, Mediterranean, Or Background): MCV < 80 false Intellectual Disability/Autism false Personal or Family History of Congenital Heart D efect false History of Hepatitis false Muscular Dystrophy false Sickle Cell Disease Or Trait () false Patient Or Partner Has History Of Genital Herpes false Hemophilia Or Other Blood Disorders false Ravi Disease false Patient's Age Will Be 35 Years Or Older At Estim ated Date of Delivery false Medications (including Suppl ements, Vitamins, Herbs, OTC Drugs), Illicit/Recreational Drugs, Alcohol true PNV Other Structural Defect false Recent Travel History Outside of Country false Maternal Metabolic Disorder (eg, Type 1 Diabetes , PKU) false Joe-Sachs (eg, Gnosticism, Cajun, Portuguese-[place]) f alse Other Infection History false [place] Chorea false Cystic Fibrosis false Recurrent Loss, Or A Stillbirth false Rash Or Viral Illness Since Last Menstrual Perio d false Live With Someone With TB Or Exposed To TB false Mental Retardation/Autism false If Yes, Was Person Tested For Fragile X? false History of HIV false Any Other Genetic History false Hemoglobinopathy Or Carrier false Prior GBS-infected child false Down Syndrome false Other Inherited Genetic Or Chromosomal Disorder false Patient Or Baby's Father Had A Child With Defects Not Listed Above false Personal or Family History o f Neural Tube Defect (Meningomyelocele, Spina Bifida, Or Anencephaly) false History Of STD, Gonorrhea, Chlamydia, HPV, Syphi lis false Plans and Education First Trimester Discussed Date Discussion Item Discussion Note Discuss ed By 07/31/2022 HIV and [email or web address]2022 Risk factors identif ied by [facility]22 Anticipated course of care [email or web address] Second Trimester Discussed Date Discussion Item Discussion Note Discuss ed By Third Trimester Discussed Date Discussion Item Discussion Note Discuss ed By Delivery Information Delivery Date Delivery Type Labor Anesthesia Weeks Gestation Incision Type Labor Labor Length Hrs Delivered By Post Complications Tubal Sterilization Discharge Date Comments 3 Sponta neous 38.4 false Vivi Mclean CNM Discharge Information Feeding Method Contraceptive Method Maternal HG B and HCT Levels
--- OUTSIDE RECORDS SUMMARY | 2024-03-15 14:51 | XMS_ITS | Encounter Summary ---
Author Organization [facility] Healthcare Address [address] [place] [address] Care Team Providers Care Cut File Clerk Name Role Phone No, Physician Primary Care Provider [phone] Encounter Details Date Type Department Care Team (Late st Contact Info) Description 12/13/2023 10:35 AM CDT Lab [facility] [address] [place] [address] Social History Tobacco Use Types Packs/Day Years Used Date Smoking Tobacco: Never Alcohol Use Standard Drinks/Week Comments Never 0 (1 standard drink = 0.6 oz pur e alcohol) [place] Depression Scale Answer Date Recorded [place] Depression Scale Total 20 08/29/2023 The thought [...] Procedure Name Priority Date/Time Associated Diagnosis Comments GTT 100GM 2HR GESTATIONAL DIAGNOSTIC Routine 12/13/2023 12:55 PM CDT GTT 100GM 1HR GESTATIONAL DIAGNOSTIC Routine 12/13/2023 11:53 AM CDT GTT 100GM FASTING GESTATIONAL DIAGNOSTIC Routine 12/13/2023 10:51 AM CDT documented in this encounter Results * GTT 100gm 2hr gestational diagnostic (12/13/2023 12:55 PM CDT) GTT 100g 2h gest 126 <=154 mg/dL Blood 12/13/2023 12:5 5 PM CDT 12/13/2023 1:07 PM CDT us Not In File Miscellaneous LAB BLOOD ORDERABLES F inal Result Performing Organization Address [facility]/ZIP Co de Phone Number [address] [place] [address] * GTT 100gm 1hr gestational diagnostic (12/13/2023 11:53 AM CDT) GTT 100g 1h gest 144 <=179 mg/dL Blood 12/13/2023 11:5 3 AM CDT 12/13/2023 12:07 PM CDT us Not In File Miscellaneous LAB BLOOD ORDERABLES F inal Result Performing Organization Address City/[facility] Co de Phone Number [address] [address] * GTT 100gm fasting gestational diagnostic (12/13/2023 10:51 AM CDT) GTT 100g fasting gest 85 <=94 mg/dL Comment: Patient vomited at 12/13/2023 13:30 CDT Interpretive data 100 gram 3 hour Gestational Diabetes Diagnostic Diagnostic criteria require that 2 or more of the following criteria be met: Fasting: > or = to 95 mg/dL 1 hour: > or = to 180 mg/dL 2 hour: > or = to 155 mg/dL 3 hour: > or = to 140 mg/dL Reference Interval Info: Aakash Menon et al. Carpenter-Coustan Compared with National Diabetes Data Group Criteria for Diagnosing Gestational Diabetes. Obstetrics and Gynecology 2016:127 (5): 893-898. Diabetes Care 2020; 43(Suppl 1):S14-31 Current interpretive data was last revised 2020. Blood 12/13/2023 10:5 1 AM CDT 12/13/2023 11:01 AM CDT us Not In File Miscellaneous LAB BLOOD ORDERABLES E dited Result - Final ALBERTO [id number] [facility] Department [place] [address] documented in this encounter Visit Diagnoses Not on filedocumented in this encounter Care Teams Cut File Clerk Relationship Specialty Start Date End Date No, Physician PCP - General 08/06/22 documented as of this encounter
--- OUTSIDE RECORDS SUMMARY | 2024-03-15 14:51 | XMS_ITS | Encounter Summary ---
Author Organization [facility] Address [address] [place] [address] Care Team Providers Care Dog Walker Name Role Phone No, Physician Primary Care Provider [phone] Encounter Details Date Type Department Care Team (Late st Contact Info) Description 10/22/2023 11:40 AM CDT Lab [facility] [address] [place] [address] Leg cramping; Supervision of other normal , antepartum Social History Tobacco Use Types Packs/Day Years Used Date Smoking Tobacco: Never Alcohol Use Standard Drinks/Week Comments Never 0 (1 standard drink = 0.6 oz pur e alcohol) [place] Depression Scale Answer Date Recorded [place] Depression Scale Total 20 08/29/2023 The thought [...] Procedure Name Priority Date/Time Associated Diagnosis Comments EGFR Routine 10/22/2023 12:17 PM CDT Leg cramping Supervision of other normal , antepartum MAGNESIUM Routine 10/22/2023 12:17 PM CDT Leg cramping Supervision of other normal , antepartum BASIC METABOLIC PANEL Routine 10/22/2023 12:17 PM CDT Leg cramping Supervision of other normal , antepartum documented in this encounter Results * eGFR (10/22/2023 12:17 PM CDT) eGFR >90 >=60 mL/min/1. 73 m2 Comment: [...] of Race in Diagnosing Kidney Disease, JASN 2020). The CKD-EPI equation should not be used for patients with unstable renal function and has not been validated in children and those over 70. Current interpretive data was last reviewed 2021. Blood 10/22/2023 12:1 7 PM CDT 10/22/2023 12:28 PM CDT us Garry Blair MD LAB BLOOD ORDERABLES Fin al Result ALBERTO [address] [place] [address] [place] [address] * (ABNORMAL) Basic metabolic panel (10/22/2023 12:17 PM CDT) Pathologist [facility] [place] Sodium 137 135 - 145 mmol/L Potassium, pl 3.8 3.3 - 4.9 mmol/L [facility] Chloride 104 97 - 110 mmol/L [facility] CO2 25 22 - 32 mmol/L [facility] Anion gap 8 2 - 15 mmol/L [facility] BUN 7 6 - 25 mg/dL [facility] Creatinine 0.45(L) 0.60 - 1.10 mg/dL [facility] Glucose 79 70 - 199 mg/dL [facility] Comment: Interpretive Data Fasting glucose >/= 126 [...] classification and Diagnosis of Diabetes Diabetes Care 2021; 46: S19-S40. Current interpretive data was last revised 2022. Calcium 8.8 8.5 - 10.3 mg/dL [facility] Blood 10/22/2023 12:1 7 PM CDT 10/22/2023 12:28 PM CDT Garry Blair MD LAB BLOOD ORDERABLES Fin al Result [address] [place] [address] * Magnesium (10/22/2023 12:17 PM CDT) [facility] Magnesium 2.0 1.4 - 2.5 mg/dL Blood 10/22/2023 12:1 7 PM CDT 10/22/2023 12:28 PM CDT Garry Blair MD LAB BLOOD ORDERABLES Fin al Result [facility] [address] [facility] Department [place] [address] documented in this encounter Visit Diagnoses Diagnosis Leg cramping Supervision of other normal , antepartum documented in this encounter Care Teams Dog Walker Relationship Specialty Start Date End Date No, Physician PCP - General 08/06/22 documented as of this encounter
--- OUTSIDE RECORDS SUMMARY | 2024-03-15 14:51 | XMS_ITS | Continuity of Care Document ---
Author Organization [facility] [place] Address [address] [place] [address] Care Team Providers Care Wiener Packer Name Role Phone LORIN CASILLAS Primary Care [...] Address Organization Details Recorded Time Pregnanc y [id number] Completed 202202/18/2023 Olivia haines, [facility] 4 14:22:59 Asthma in pregnanc y [id number] 103 Completed 1 tab daily slow fe with OJ Sue haines, [facility] 3 13:27:22 Past pregnanc y history of prematur e delivery [id number] Completed second baby born 34-35 weeks gestatio n - [facility] 09/30 - serial growth Sue haines, [facility] 3 13:27:22 Congenit al malforma tion 350611548 Completed first preg 2017- daughter pyloric stenosis - [facility] 09/30 Sue haines [facility] 3 13:27:22 Gastroes ophageal reflux disease 639814342 Completed 2022 1 tab omeprazo le 20mg BID [facility]a [facility] 3 13:27:22 Contract ion [id number] Completed Markmariela Dukesle [facility] 3 13:27:22 Backache 366763099 Completed TENS unit recommen d., [facility] 3 13:27:22 Pregnanc y 94885700 Completed 202301/30/2024 Olivia Mccarthy [facility] 4 14:22:58 Past pregnanc y history of gestatio nal hyperten beryl 241610478 Completed Olivia Mccarthy [facility] 4 14:25:45 Problem Notes None recorded. Procedures Surgical History Date Name Laterality Status Provider Name and Address Organization Details Recorded Time 03/03/20 24 SALPINGECTOMY, LAPAROSCOPIC (SURG) completed Dalia Lara [facility] 03/03/2024 13:13:42 03/25/19 18 Date of Last Mammogram completed Clara [facility] 08/22/2022 14:56:05 03/25/19 18 Breast augmentation w/implt completed Clara [facility] 08/28/2022 17:09:06 03/25/19 18 excision of malignant tumor of breast completed Brenna [facility] 08/28/2022 17:09:17 03/25/19 05 tonsilectomy/[place] noids completed Clara [facility] 01/04/2021 19:38:13 Imaging Results None recorded. Procedure Notes None recorded. Medical Equipment None Reported. Allergies Allergen ID Allergen Name Allergen Category Reaction Reaction Severity Criticality Documentation Date Start Date Code Code System Note Provider Name and Address Organization Details Recorded Time 67421 Cipro medicatio n Not available Not available Not available 01/04/202133866 3 RxNorm Brenna Paultara haines [facility] 11:50:32 73095 Levaquin medicatio n Not available Not available Not available 01/04/2021 90697 2 RxNocayden Scottina Lashaun haines [facility] 11:50:40 Medications Name Sig Start Date [...] Updated DateTime 12/18/2023 160.02 cm 24.4 kg/m2 83784.75 g 114 mm[Hg] 78 mm[Hg] Olivia Fabio [facility] 14:04:35 Social History Question Answer Notes LastModified by Organizat ion Details LastModified Time Tobacco Smoking Status Never Smoker Ele Rodríguez yancy, [facility] 09/21/2022 09:38:50 What Is Your Level Of Alcohol Consumption? None [email or web address] Information not available 01/04/2021 Are You Blind Or Do You Have Difficulty Seeing? No [email or web address] Information n ot available 01/04/2021 What Is Your Level Of Caffeine Consumption? Occasional [email or web address] Information not available 01/04/2021 In The 14 Days Before Symptom Onset, Have You Had Close Contact With A Laboratory-confirm ed COVID-19 While That Case Was Ill? No [email or web address] Information n ot available 01/04/2021 In The 14 Days Before Symptom Onset, Have You Had Close Contact With A Person Who Is Under Investigation For COVID-19 While That Person Was Ill? No [email or web address] Information not available 01/04/2021 Have You Been To An Area Known To Be High Risk For COVID-19? No [email or web address] Information not available 01/04/2021 Are You Deaf Or Do You Have Serious Difficulty Hearing? No [email or web address] Information not available 01/04/2021 What Type Of Diet Are You Following? REGULAR [email or web address] Information n ot available 01/04/2021 Do You Use Your Seat Belt Or Car Seat Routinely? Yes [email or web address] Information not available 01/04/2021 Do You Have Smoke And Carbon Monoxide Detectors In Your Home? Yes [email or web address] Information not available 01/04/2021 Do You Feel Stressed (tense, Restless, Nervous, Or Anxious, Or Unable To Sleep At Night)? [id number] Information not available 01/04/2021 Do You Use Any Illicit Or Recreational Drugs? No Information not available 01/04/2021 Do You Use Sunscreen Routinely? Yes [email or web address] Information not available 01/04/2021 Has Tobacco Cessation Counseling Been Provided? No [email or web address] Information not available 09/21/2022 Do You Or Have You Ever Used Any Other Forms Of Tobacco Or Nicotine? No [email or web address] Information not available 09/21/2022 Sex: Unknown Functional Status Question Answer Note LastModified by Organizat ion Details LastModified Time Do you have difficulty walking or climbing stairs? No [email or web address] Information not available 09/21/2022 Are you able to walk? YESWOREST [email or web address] Information not available 01/04/2021 Are you able to care for yourself? Yes [email or web address] Information not available 09/21/2022 Do you have difficulty dressing or bathing? No [email or web address] Information not available 09/21/2022 What is your exercise level? Occasional [email or web address] Information not available 01/04/2021 Mental Status None recorded. Family History Relationship Description Onset Age of this Age Resolved Age Notes LastModified by Organization Details LastModified Time Paternal Grandmother Malignant tumor of breast [email or web address] Not available 11/21 11:12:04 Paternal Grandmother Heart disease [email or web address] Not available 11/21 11:12:04 Paternal Grandmother Diabetes mellitus Not available 11/21 11:12:04 Paternal Grandmother Hypertensive disorder [email or web address] Not available 11/21 11:12:04 Paternal Grandmother Cyst of ovary [email or web address] Not available 2022 15:42:46 Paternal Grandmother Seizure disorder [email or web address] Not available 2022 15:42:46 Maternal Grandmother Heart disease [email or web address] Not available 11/21 11:12:04 Maternal Grandmother Diabetes mellitus [email or web address] Not available 11/21 11:12:04 Maternal Grandmother Hypertensive disorder [email or web address] Not available 11/21 11:12:04 Maternal Grandmother Cyst of ovary [email or web address] Not available 2022 15:42:46 Mother Cyst of ovary Not available 2022 15:42:46 Sister Cyst of ovary [email or web address] Not available 2022 15:42:46 Maternal Uncle Disorder of thyroid gland [email or web address] Not available 11/21 11:12:04 Medical History Condition [...] Diagnosis/Indication Diagnosis SNOMED-CT Code Diagnosis ICD10 Code [id number] Tal Green MD [place] [address] [address] 12/18/2023 13:50:20 12/18/2023 15:27:37 Routine care [id number] Z34.83 Health Concerns Section Related Observation LastModified by Organization Detai ls LastModified Time None Recorded Concern Status LastModified by Organization Details LastModified Time None Recorded Payers Encounter Date Sequence Insurance Name Policy Number Policy Khalil Covered Member ID Khalil Member ID Guarantor Name 12/18/2023 1 [employer]: (PP[place]) [id number] Arian Lea [id number] Mariam Lea 12/18/2023 2 [place] [employer] Mariam Lea [id number] Mariam Lea OBGyn Episode Ob Episode Information Episode Created Date Number of Fetuses Patient Bloodtype Patient rh Status Prepregnancy Weight lbs Domestic Partner Domestic Partner Phone Father Name Electrical Engineer Mep Status 12/18/19 24 1 A Positive Arian CLOSED Fetus Data First Name Last Name Admitted to NICU Weight (g) Sex Living Outcome Pediatric Complications Fetus ID Race Codes Race Delivery Type Greyso n true M [id number] Vaginal Delivery Problems Problem Notes PT is here for ob visit. She transferred care. She would like to deliver at [place]. She has hx of labor and pre-eclampsia. [...] discuss tubal ligation. Pt is scheduled with [facility] [place] on 12/15, 12/18, 12/22, 12/25, 12/29, 01/01 Problem Name Start Date End Date Resolution Snomed Code Not e Past history of ge stational hypertension [id number] Angie Calculation ANGIE Calculation Method Initial Angie [...] Weight in lbs Pre/Post Dialysis Refused Weight 138.167611794157 BP Diastolic BP Location Tested BP Systolic [...] Weight in lbs Pre/Post Dialysis Refused Weight 124.691990699531 BP Diastolic BP Location Tested BP Systolic [...]
--- OUTSIDE RECORDS SUMMARY | 2024-03-15 14:51 | XMS_ITS | Clinical Summary ---
Author Organization [facility] [address] [facility] Address [address] [place] [address] Care Team Providers Care Garment Steamer Name Role Phone No, Physician Primary Care Provider [phone] Allergies Active Allergy Reactions Criticality Noted Date Comments Penicillin G Itching Low 08/12/2023 Medications vit [id number] a 27mg iron- 800 mcg-250 mg capsule Take by mouth Active aspirin 81 mg enteric coated tablet Take 1 tablet (81 mg total) by mouth daily Active Active Problems Problem Noted Date Diagnosed Date GBS bacteriuria 08/20/2023 Supervision of other normal , antepartu m 08/12/2023 History of hemorrhage 08/12/2023 History of depression 08/12/2023 Routine general medical exam ination at a health care facility 09/05/2022 Estimated Date of Delivery Comme nts Yes 02/15/2024 Based on Ultraso und Resolved Problems Problem Noted Date Diagnosed Date Resolved Date 39 weeks gestation of 02/19/2023 08/12/2023 Endometritis following delivery 02/19/2023 08/12/2023 Encounters Date Type Department Care Team Description 03/10/2024 Telephone [facility] Cardiology [address] [place] [address] Vivi Velasco MA Scheduling Appointments 02/15/2024 Hospital Encounter [facility] [address] [place] [address] Garry Blair MD from Last 3 Months Immunizations Name Administration Dates Next Due DTaP 01/05/2004, 1,05/24/1999,02/07,1998,1998 HPV, Quadrivalent 10/19/2010 HPV9 09/20/2021 Hep A, Ped Unspecified 10/19/2010,12/17/2008 Hep A, Unspecified 10/19/2010,12/17/2008 Hep B, Adolescent or Pediatric 1,05/24/1999,02/07/1999,10/02 HiB 02/19/2000, 0,02/07/1999,12/07,1998 IPV 01/05/2004, 0,02/07/1999,12/07,1998 Influenza, Quadrivalent, Spl it, Intramuscular 01/06/2018 Influenza, Quadrivalent, Spl it, Preservative Free, Intramuscular 01/16/2020 Influenza, Split 12/17/2008 Influenza, Unspecified 01/16/2020,01/06/2018, MMR 01/05/2004,02/19/2000 Meningococcal B, OMV (Bexsero) 09/20/2021 Meningococcal Conjugate (Menveo) 10/19/2010 Pneumococcal Conjugate 7-Valent 10/01/2000,04/03,02/19/2000 Tdap 03/25/2015,10/19/2010 Varicella 12/17/2008,10/19/1999 Surgical History Surgery Date Site/Laterality Comments TONSILECTOMY, ADENOIDECTOMY, BILATERAL MYRINGOTOMY AND TUBES BREAST BIOPSY Right BREAST SURGERY Medical History Medical History Date Comments Asthma Breast tumor Depression Anxiety Gestational hypertension Family History Medical History Relation Name Comments Breast cancer Maternal Grandmother Diabetes Maternal Grandmother Heart disease Maternal Grandmother Hypertension Maternal Grandmother Diabetes Paternal Grandmother Heart disease Paternal Grandmother Hypertension Paternal Grandmother Colon cancer Neg Hx Ovarian cancer Neg Hx Uterine cancer Neg Hx Relation Name Status Comments Father Alive Maternal Grandmother Mother Alive Paternal Grandmother Social History Tobacco Use Types Packs/Day Years Used Date Smoking Tobacco: Never Tobacco Cessation:Counseling Given: Not Answered Alcohol Use Standard Drinks/Week Comments Never 0 (1 standard drink = 0.6 oz pur e alcohol) [place] Depression Scale Answer Date Recorded [place] Depression Scale Total 20 08/29/2023 The thought [...] on file Sexual Orientation Not on file Obstetrics History Para Term AB IAB SAB Ectopic Multiple Livin g Live Births 6 3 2 1 2 2 3 3 Date Outcome GA Total Labor Labor/2nd/3rd Weight Sex Type Anes PTL Concetta A1 A5 Name Clin 2016 Term 39w 0d 3.26 kg (7 lb 3 oz) F Vag-Sp ont Epidur al N Livin g Complications:None Delivery [facility] 2017 34w 0d 2.722 kg (6 lb) M Vag-Sp ont Epidur al Y Livin g Complications: labor, hemorrhage Delivery [facility] 2019 SAB 2022 Term 38w 4d 3.005 kg (6 lb 10 oz) F Vagina l Epidur al N Livin g Leonela Frias Jes nski CNM Complications:Anemia,Postpar trent hemorrhage Delivery Location:[facility] Current Summary Episode Dates Number of Fetuses Estimated Date of Delivery 08/12/2023 - Present (03/15/2024) 1 02/15/2024 (set by Nancy Poe NP on 09/11/2023 based on Ultrasound on 08/12/2023) Dating Summary Based On ANGIE GA Diff Last Menstrual Period (LMP Unknown) Ultrasound on 08/12/2023 02/15/2024 Working GA:13w2d Alternate ANGIE Entry 02/15/2024 Same Overview and Plan :Patel Support person:Faith lindsey Delivery Plans Planned delivery method:Vaginal Planned delivery location:[facility] Overview Surveillance of EDC based on dating US with [place] A+/I/-/-, HIV and RPR NR Genetics: low risk Anatomy: 20 weeks GCT: 130 3rd trim CBC/HIV/RPR Tdap: 27+ weeks GBS: URIA! Will need sensitivity COVID Vaccine: received Social Barriers: none Mode of feeding: Method of contraception: Delivery Planning: TBD H/o PP hemorrhage x 2 H/o PTD at 34 weeks H/o gHTN Anemia : iron infusions scheduled 08/16, 08/23 ans 08/30 Vitals Pregravid Weight Height TWG (As of 03/15/2024) Pregrav id BMI 54.4 kg (120 lb) 160 cm (5' 2.99 ) 4.082 kg (9 lb) 21. 26 Date GA Fund Present FHR Mvmt BP Weight Edema Alb Glu Ket Dil/ Eff/Sta 4 13w4d Inpatient data not displayed here. See encounter summary. 4 14w4d Inpatient data not displayed here. See encounter summary. 4 15w4d Inpatient data not displayed here. See encounter summary. Notes Progress Notes - Routine Pre - 10/30/2023 - GA:24w4d 10/30/2023 - 24w4d - Chip Esteves MD Return OB Visit Mariam Monet is a 23 y.o. female at 24w4d Perceiving movement, but very inconsistently. Denies bleeding, abnormal discharge. Seeing a counselor and states she is doing well emotionally. Objective BP 102/66 Ht 160 cm (5' 2.99 ) Wt 129 lb (58.5 kg) LMP (LMP Unknown) BMI 22.86 kg/m?? Body mass index is 22.86 kg/m??. TW lb (4.082 kg) Assessment/Plan: Provided orders and instructions for 1 hour GCT and routine 3rd trimester blood work to be completed next visit Return in 4 weeks Surveillance of DatinT US @ 13w2d Labs: A+/I/-/-, HIV and RPR NR Genetics: NIPT LR Anatomy: 10/01 - complete normal, AGA, anterior placenta GCT: 26-28 weeks 3rd trim CBC/HIV/RPR Tdap: 27+ weeks GBS Uria+, reports tolerating PCN during last delivery and has tolerated Amoxicillin before as well, for swab at 36 weeks for sensitivities? COVID Vaccine: yes, last dose 2020 Social Barriers: none MOF: breast and bottle MOC: Mirena IUD, would like immediate PP Delivery Planning: TBD Hx gHTN x1, severe pre-e x1, sister had HELLP syndrome: dASA today through delivery, baseline labs - wnl. Patient counseled on risk of recurrence Hx PPH: check T3 CBC. Plan T&C x2 at delivery, have meds at bedside Hx PTB x1: spontaneous, 34 weeks. However, based on her LMP she would have been 38.5 weeks. Baby was 6lbs (same as term weight in 3rd delivery), went home DOL #2. TVCL at anatomy sonogram - normal (4.26cm). Currently, no other interventions indicated Depression/anxiety - (08/28) EPDS = 20, sometimes thoughts of self-harm. (09/01) sertraline 25 mg was prescribed - never started. (10/29) Seeing a counselor and finding it very helpful; no thoughts of self-harm. Chip Esteves MD Progress Notes - Routine Pre leann - 2023 - GA:20w4d 2023 - 20w4d - Garry Blair MD Return OB Visit Mariam Monet is a 22 y.o. female at 20w4d here for return OB visit. Patient reports no acute concerns FM+ Denies vb, lof, ctxs Denies CHEEMA/altered vision/CP/SOB/abdominal pain/significant edema/LE discomfort. Objective BP 98/60 Ht 160 cm (5' 3 ) Wt 126 lb (57.2 kg) LMP (LMP Unknown) BMI 22.32 kg/m?? Body mass index is 22.32 kg/m??. TW lb (2.722 kg) Heart Rate: +US Assessment/Plan: Mariam Monet is a 22 y.o. female at 20w4d here for return OB visit. Diagnosis Plan 1. GBS bacteriuria 2. History of depression 3. History of hemorrhage 4. Supervision of other normal , antepartum Surveillance of DatinT US @ 13w2d Labs: A+/I/-/-, HIV and RPR NR Genetics: NIPT LR Anatomy: 10/01 - complete normal, AGA, anterior placenta GCT: 26-28 weeks 3rd trim CBC/HIV/RPR Tdap: 27+ weeks GBS: GBS Uria+, reports tolerating PCN during last delivery and has tolerated Amoxicillin before as well, for swab at 36 weeks for sensitivities? COVID Vaccine: yes, last dose 2020 Social Barriers: none MOF: breast and bottle MOC: Mirena IUD, would like immediate PP Delivery Planning: TBD Hx gHTN x1, severe pre-e x1, sister had HELLP syndrome: dASA today through delivery, baseline labs - wnl. Patient counseled on risk of recurrence Hx PPH: check T3 CBC. Plan T&C x2 at delivery, have meds at bedside Hx PTB x1: spontaneous, 34 weeks. However, based on her LMP she would have been 38.5 weeks. Baby was 6lbs (same as term weight in 3rd delivery), went home DOL #2. TVCL at anatomy sonogram - normal (4.26cm). Currently, no other interventions indicated Counseled to call or return for vaginal bleeding, regular contractions, leakage of fluid or decreased movement. All patient questions answered. - Follow-up: 4wks JEANNA Blair MD Progress Notes - Office Visi t - 09/16/2023 - GA:18w2d 09/16/2023 - 18w2d - Claribel Poe NP OB RETURN VISIT Subjective: Mariam Monet is a 22 y.o. at 18w2d who presents for her return OB visit. Pt reports having vaginal irritation/burning for the past few days, denies dysuria or concern for STIs Denies VB, LOF, abd cramping or other acute concerns Objective: Vitals: 09/16/23 1258 BP: 104/60 Weight: 120 lb (54.4 kg) Height: 160 cm (5' 3 ) FHR 142bpm Assessment/Plan: Vaginitis swab collected POCT Urine Dip WNL Discussed infection prevention RTC in 2 weeks for JEANNA appointment Surveillance of DatinT US @ 13w2d Labs: A+/I/-/-, HIV and RPR NR Genetics: NIPT LR Anatomy: 20 weeks GCT: 26-28 weeks 3rd trim CBC/HIV/RPR Tdap: 27+ weeks GBS: GBS Uria+, reports tolerating PCN during last delivery and has tolerated Amoxicillin before as well, for swab at 36 weeks for sensitivities? COVID Vaccine: yes, last dose 2020 Social Barriers: none MOF: breast and bottle MOC: Mirena IUD, would like immediate PP Delivery Planning: TBD Hx gHTN x1, severe pre-e x1, sister had HELLP syndrome: dASA today through delivery, baseline labs ordered. Patient counseled on risk of recurrence Hx PPH: check T3 CBC. Plan T&C x2 at delivery, have meds at bedside Hx PTB x1: spontaneous, 34 weeks. However, based on her LMP she would have been 38.5 weeks. Baby was 6lbs (same as term weight in 3rd delivery), went home DOL #2. Will check TVCL at anatomy sonogram. Currently, no other interventions indicated Marnie Poe NP Progress Notes - Routine Pre - 09/11/2023 - GA:17w4d 09/11/2023 - 4d - Claribel Poe NP OB RETURN VISIT Subjective: Mariam Monet is a 22 y.o. at 17w4d who presents for her return OB visit. Reports having frequent CHEEMA since last week, taking Tylenol but notes little relief Denies vision changes, swelling, RUQ pain or SOB Denies VB, LOF, abd cramping Completed 3rd iron infusion 3 weeks ago and reports doing well with PO iron supplement Reports stable mood Objective: Vitals: 09/11/23 1121 BP: 94/58 Weight: 122 lb 12.8 oz (55.7 kg) Height: 160 cm (5' 3 ) FHR 150bpm Assessment/Plan: Discussed MOC Discussed continued iron supplementation and beginning Colace, Miralax if needed. Encouraged increased hydration and adding fiber to diet. Discussed GBS Uria and PCN allergy? Reviewed s/s of PreE RTC in 3 weeks for JEANNA appointment and anatomy US Surveillance of DatinT US @ 13w2d Labs: A+/I/-/-, HIV and RPR NR Genetics: NIPT LR Anatomy: 20 weeks GCT: 26-28 weeks 3rd trim CBC/HIV/RPR Tdap: 27+ weeks GBS: GBS Uria+, reports tolerating PCN during last delivery and has tolerate Amoxicillin before as well, for swab at 36 weeks for sensitivities? COVID Vaccine: yes, last dose 2020 Social Barriers: none MOF: breast and bottle MOC: Mirena IUD, would like immediate PP Delivery Planning: TBD Hx gHTN x1, severe pre-e x1, sister had HELLP syndrome: dASA today through delivery, baseline labs ordered. Patient counseled on risk of recurrence Hx PPH: check T3 CBC. Plan T&C x2 at delivery, have meds at bedside Hx PTB x1: spontaneous, 34 weeks. However, based on her LMP she would have been 38.5 weeks. Baby was 6lbs (same as term weight in 3rd delivery), went home DOL #2. Will check TVCL at anatomy sonogram. Currently, no other interventions indicated Marnie Poe NP Cosigned by Chip Esteves MD at 09/12/2023 8:16 PM CDT Progress Notes - Clinical [place] pport - 08/12/2023 - GA:13w2d 08/12/2023 - 13w2d - Kristen Randle RN Patient transfer from [place]. [place] only completed dating US. No US completed in office today. NOB labs ordered today. NIPT also ordered. Pap is up to date per the pt. STI testing to be collected. H/o pre term delivery at 34 weeks. H/o PP hemorrhage x 2, no transfusion required. H/o depression and anxiety. Tdap recommendations reviewed with the pt. OB call schedule reviewed with the pt. NOB packet reviewed with the pt and questions were answered. Progress Notes - Initial Pre - 08/12/2023 - GA:13w2d 08/12/2023 - 13w2d - Coni Matta MD Initial OB Visit Subjective: Mariam Monet is a 22 y.o., at 13w2d, based on 1st trimester U/S, who presents for initial visit. Her obstetrical history is significant for induced hypertension and pre-eclampsia. Past history fully reviewed. She reports no complaints. Additional concerns today: none. Menstrual History: No LMP recorded (lmp unknown). Patient is . Sexual History: OB History 6 Para 3 Term 2 1 AB 2 Living 3 SAB 2 IAB Ectopic Multiple Live Births 3 # Outcome Date GA Labor/2nd Weight Sex Type Anes PTL Lv A1 A5 1 Term 06/08/16 39w0d 3.26 kg (7 lb 3 oz) F Vag-Spont Epidural N Living Location: [facility] 2 10/10/17 34w0d 2.722 kg (6 lb) M Vag-Spont Epidural Y Living Complications: labor, hemorrhage Location: [facility] 3 2019 4 2021 5 Term 02/13/23 38w4d 3.005 kg (6 lb 10 oz) F Vaginal Epidural N Living Name: [facility] Complications: Anemia, hemorrhage Location: Other Delivering Clinician: Altagracia Mclean CNM 6 Current Past medical, surgical, and NUTRITION SERVICES MANAGER history fully reviewed. ROS Objective: BP 100/58 Ht 160 cm (5' 3 ) Wt 120 lb (54.4 kg) LMP (LMP Unknown) BMI 21.26 kg/m?? Physical No physicals filed. See flow sheet for gestation -specific examination and vitals. See Episode Report for physical of record. Assessment: Patient is a 22 y.o., at 13w2d, with a patel confirmed on U/S today. Problem list reviewed and updated: Problems (from 08/12/23 to present) Problem Noted Resolved Supervision of other normal , antepartum 08/12/2023 by Kristen Grande, RN No History of hemorrhage 08/12/2023 by Kristen Grande, RN No History of depression 08/12/2023 by Kristen Grande, RN No VScan: ample movement Plan: Surveillance of Dating: T1 sono Labs: ordered Genetics: ordered Anatomy: 20 weeks GCT: 26-28 weeks 3rd trim CBC/HIV/RPR Tdap: 27+ weeks GBS: 36 weeks, or sooner if early delivery indicated COVID Vaccine Social Barriers: MOF: breast and bottle MOC: Delivery Planning: TBD Hx gHTN x1, severe pre-e x1, sister had HELLP syndrome: dASA today through delivery, baseline labs ordered. Patient counseled on risk of recurrence Hx PPH: check T3 CBC. Plan T&C x2 at delivery, have meds at bedside Hx PTB x1: spontaneous, 34 weeks. However, based on her LMP she would have been 38.5 weeks. Baby was 6lbs (same as term weight in 3rd delivery), went home DOL #2. Will check TVCL at anatomy sonogram. Currently, no other interventions indicated Follow up in 4 weeks. Coni Matta MD 08/12/2023 Last Filed Vital Signs Vital Sign Reading Time Taken Comments Blood Pressure 106/89 12/13/2023 6:48 PM CDT Pulse 93 12/13/2023 6:48 PM CDT Temperature 36.7 ??C (98.1 ??F) 12/13/2023 2:05 PM CD T Respiratory Rate 16 12/13/2023 6:48 PM CDT Oxygen Saturation 97% 12/13/2023 6:48 PM CDT Inhaled Oxygen Concentration - - Weight 61.2 kg (135 lb) 12/13/2023 2:05 PM CDT Height 160 cm (5' 2.99 ) 10/30/2023 10:13 AM CDT Body Mass Index 23.92 10/30/2023 10:13 AM CDT Plan of Treatment Health Maintenance Due Date Last Done Comments Cervical Cancer Screening 1998 Pneumococcal vaccine <65 (1 of 1 - PPSV23 or PCV20) 2004 10/01/2000, 04/03/2000, 02/19/2000 Regular Well Visit/Exam 18-64 2016 Covid-19 Vaccine (4 - 2023-2 5 season) 2023 04/06/2021, 09/04/2020, 08/14/2020 Depression Screening 08/28/2024 08/29/2023 DTaP/Tdap/Td Vaccine (9 - Td or Tdap) 12/10/2033 12/11/2023, 03/25/2015, 10/19/2010, Additional history exists Varicella Vaccines Completed 12/17/2008, 10/19/1999 HPV Vaccines Completed 09/20/2021, 10/19/2010 Hepatitis C Screening Completed 08/12/2023 Influenza Vaccine Completed 12/11/2023, , 01/16/2020, Additional history exists Procedures Procedure Name Priority Date/Time Associated Diagnosis Comments HEPATITIS C ANTIBODY Routine 08/12/2023 2:21 PM CDT Encounter for supervision of other normal in first trimester from Last 3 Months or Most Recently Relevant to Health Maintenance Results * Hepatitis C antibody Blood (08/12/2023 2:21 PM CDT) Hep C Ab Nonreactive Nonreactive Comment: Antibodies to HCV not detected. Does NOT exclude the possibility of recent exposure to HCV. Current interpretive data was last revised on 21 Interpretive Data Nonreactive: Antibodies to HCV not detected. Does NOT exclude the possibility of recent exposure to HCV. Equivocal: Equivocal for HCV antibodies. Supplemental molecular testing will be automatically performed to determine infection status in accordance with current CDC screening recommendations. ?? Reactive: Positive for HCV antibodies. ??This may represent current or past HCV infection. Supplemental molecular testing will be automatically performed to determine ??current infection status in accordance with current CDC screening recommendations. Interpretive data was last revised on 2019. Blood 08/12/2023 2:21 PM CDT 08/12/2023 7:29 PM CDT us oCni Matta MD LAB MICROBIOLOGY - GENERAL ORD ERABLES Edited Result - Final [facility] [address] [facility] Department [place] [address] from Last 3 Months or Most Recently Relevant to Health Maintenance Insurance [facility] IDPA IDPA ANTHEM ACCESS CHOICE [employer] Address: [facility] [id number] [phone] Care Teams Garment Steamer Relationship Specialty Start Date End Date No, Physician PCP - General 08/06/22
--- OUTSIDE RECORDS SUMMARY | 2024-03-15 14:51 | XMS_ITS | Encounter Summary ---
Author Organization [facility] Healthcare Address [address] [place] [address] Care Team Providers Care Lap Regulator Name Role Phone No, Physician Primary Care Provider [phone] Reason for Visit * Reason Comments Routine Visit 24w 4d Encounter Details Date Type Department Care Team (Latest Contact Info) Description 10/30/2023 10:15 AM CDT Routine [facility] Medical Group Obstetrical Gynecology [address] [place] [phone] Chip Esteves MD [address] [place] [id number] Encounter for related examination in second trimester (Primary Dx); Third trimester Social History Tobacco Use Types Packs/Day Years Used Date Smoking Tobacco: Never Tobacco Cessation:Counseling Given: Not Answered Alcohol Use Standard Drinks/Week Comments Never 0 (1 standard drink = 0.6 oz pur e alcohol) [place] Depression Scale Answer Date Recorded [place] Depression Scale Total 20 08/29/2023 The thought [...] Reading Time Taken Comments Blood Pressure 102/66 10/30/2023 10:13 AM CDT Pulse - - Temperature - - Respiratory Rate - - Oxygen Saturation - - Inhaled Oxygen Concentration - - Weight 58.5 kg (129 lb) 10/30/2023 10:13 AM CDT Height 160 cm (5' 2.99 ) 10/30/2023 10:13 AM CDT Body Mass Index 22.86 10/30/2023 10:13 AM CDT documented in this encounter Progress Notes * Chip Esteves MD - 10/30/2023 10:15 AM CDT Return OB Visit Mariam Lea is a 23 y.o. female at 24w4d [...] Currently, no other interventions indicated Depression/anxiety - (6/) EPDS = 20, sometimes thoughts of self-harm. (09/01) sertraline 25 mg was prescribed - never started. (10/29) Seeing a counselor and finding it very helpful; no thoughts of self-harm. Chip Esteves MD documented in this encounter Plan of Treatment Not on file documented as of this encounter Results * (ABNORMAL) CBC without differential (11/19/2023 10:09 AM CDT) WBC 8.8 3.8 - 9.9 K/cumm Hgb 11.5(L) 11.9 - 15.5 g/dL [facility] Hct 35.3(L) 35.6 - 45.5 % [facility] Plt 208 150 - 400 K/cumm [facility] MPV 11.8 9.1 - 12.3 fL [facility] RBC 4.20 3.90 - 5.20 M/cumm [facility] MCV 84.0 81.3 - 96.4 fL [facility] MCH 27.4 27.1 - 33.3 pg [facility] MCHC 32.6 32.3 - 35.7 g/dL [facility] RDW CV 15.9(H) 11.1 - 14.9 % [facility] RDW SD 49.5(H) 35.7 - 48.1 fL [facility] NRBC abs 0.00 0.00 - 0.01 K/cumm [facility] Blood 11/19/2023 10:0 9 AM CDT 11/19/2023 10:45 AM CDT us Chip Esteves MD LAB BLOOD ORDERABLES Final Result [facility] [place] [address] * RPR Blood (11/19/2023 10:09 AM CDT) RPR Nonreactive Nonreactive Comment:Testing performed by : [facility], [address] [facility], [place]., [address] Blood 11/19/2023 10:0 9 AM CDT 11/19/2023 1:09 PM CDT Chip Esteves MD LAB MICROBIOLOGY - GENERAL ORDERABLES Final Result Performing Organization Address City/[facility] Co de Phone Number [address] [address] * HIV 1/2 Antibody plus p24 Antigen Blood (11/19/2023 10:09 AM CDT) HIV 1/2 ab + p24 ag Nonreactive Nonreactive Comment:Nonreactive for HIV- 1 antigen and HIV-1/HIV-2 antibodies. No laboratory evidence of HIV infection. If acute HIV infection is suspected, consider testing for HIV-1 RNA. Current interpretive data was last revised on 21. Blood 11/19/2023 10:0 9 AM CDT 11/19/2023 10:45 AM CDT Chip Esteves MD LAB MICROBIOLOGY - GENERAL ORDERABLES Final Result [address] [place] [address] documented in this encounter Visit Diagnoses Diagnosis Encounter for related examination in second trimester- Primary Third trimester state, incidental documented in this encounter Discontinued Medications Medication Sig Discontinue Reason Start Date End Da te sertraline (ZOLOFT) 25 mg tabletIndications:Anxiet y and depression Take 1 tablet (25 mg total) by mouth daily Therapy completed 09/02/2023 10/30/2023 documented as of this encounter Care Teams Lap Regulator Relationship Specialty Start Date End Date No, Physician PCP - General 08/06/22 documented as of this encounter
--- OUTSIDE RECORDS SUMMARY | 2024-03-15 14:51 | XMS_ITS | Encounter Summary ---
Author Organization [facility] Healthcare Address [address] [place] [address] Care Team Providers Care Locker Room Supervisor Name Role Phone No, Physician Primary Care Provider [phone] Encounter Details Date Type Department Care Team (Late st Contact Info) Description 02/15/2024 Hospital Encounter [facility] [address] [place], [place] [phone] Garry Blair MD [address] [phone] Social History Tobacco Use Types Packs/Day Years Used Date Smoking Tobacco: Never Alcohol Use Standard Drinks/Week Comments Never 0 (1 standard drink = 0.6 oz pur e alcohol) [place] Depression Scale Answer Date Recorded [place] Depression Scale Total 20 08/29/2023 The thought [...] on filedocumented in this encounter Care Teams Locker Room Supervisor Relationship Specialty Start Date End Date No, Physician PCP - General 08/06/22 documented as of this encounter
--- OUTSIDE RECORDS SUMMARY | 2024-03-15 14:51 | XMS_ITS | Encounter Summary ---
Author Organization [facility] Healthcare Address [address] [place] [address] Care Team Providers Care Hold Worker Name Role Phone No, Physician Primary Care Provider [phone] Encounter Details Date Type Department Care Team (Late st Contact Info) Description 11/19/2023 9:40 AM CDT Lab [facility] Lab [address] [place] [address] Encounter for related examination in second trimester Social History Tobacco Use Types Packs/Day Years Used Date Smoking Tobacco: Never Alcohol Use Standard Drinks/Week Comments Never 0 (1 standard drink = 0.6 oz pur e alcohol) [place] Depression Scale Answer Date Recorded [place] Depression Scale Total 20 08/29/2023 The thought [...] Name Priority Date/Time Associated Diagnosis Comments GTT 50GM 1HR GESTATIONAL SCREEN Routine 11/19/2023 11:17 AM CDT Encounter for related examination in second trimester HIV 1/2 ANTIBODY PLUS P24 ANTIGEN Routine 11/19/2023 10:09 AM CDT Encounter for related examination in second trimester RPR Routine 11/19/2023 10:09 AM CDT Encounter for related examination in second trimester CBC WITHOUT DIFFERENTIAL Routine 11/19/2023 10:09 AM CDT Encounter for related examination in second trimester documented in this encounter Results * GTT 50gm 1hr gestational screen (11/19/2023 11:17 AM CDT) GTT 50g gest screen 130 <=140 mg/dL Comment: Interpretive Data Used for suspected gestational diabetes. The screening test uses 50 grams of glucose with sample obtained 1 hr later. Normal range: < 140 mg/dL. A glucose value of >140 mg/dL generally indicates the need for a full diagnostic tolerance test. Reference Interval Info: Diabetes Care 2005, Vol 28. Supplement 1,S37-S42. Report of the Expert Committee on the Diagnosis and Classification of Diabetes Mellitus. Diabetes Care 2020; 43(Supplement 1):S14-31. Current interpretive data was last revised on 2020. Blood 11/19/2023 11:1 7 AM CDT 11/19/2023 11:18 AM CDT Chip Esteves MD LAB BLOOD ORDERABLES Final Result [facility] [address] [facility] Department of Laboratories [place], [place] [id number] * HIV 1/2 Antibody plus p24 Antigen [...] GENERAL ORDERABLES Final Result Performing Organization Address City/[facility] Co de Phone Number [address] [place] [address] * RPR Blood (11/19/2023 10:09 AM CDT) [facility] RPR Nonreactive Nonreactive Comment:Testing performed by : [facility], [address] [place]., [address] Blood 11/19/2023 10:0 9 AM CDT 11/19/2023 1:09 PM CDT Chip Esteves MD LAB MICROBIOLOGY - GENERAL ORDERABLES Final Result Performing Organization Address [facility] Co de Phone Number [address] [address] * (ABNORMAL) CBC without differential (11/19/2023 10:09 AM CDT) [facility] WBC 8.8 3.8 - 9.9 K/cumm Hgb 11.5(L) 11.9 - 15.5 g/dL [facility] Hct 35.3(L) 35.6 - 45.5 % [facility] Plt 208 150 - 400 K/cumm [facility] MPV 11.8 9.1 - 12.3 fL [facility] RBC 4.20 3.90 - 5.20 M/cumm [facility] MCV 84.0 81.3 - 96.4 fL [facility] MCH 27.4 27.1 - 33.3 pg [facility] MCHC 32.6 32.3 - 35.7 g/dL [facility] RDW CV 15.9(H) 11.1 - 14.9 % [facility] RDW SD 49.5(H) 35.7 - 48.1 fL [facility] NRBC abs 0.00 0.00 - 0.01 K/cumm [facility] Blood 11/19/2023 10:0 9 AM CDT 11/19/2023 10:45 AM CDT us Chip Esteves MD LAB BLOOD ORDERABLES Final Result [facility] [address] [facility] Department [place] [address] documented in this encounter Visit Diagnoses Diagnosis Encounter for related examination in second trimester documented in this encounter Care Teams Hold Worker Relationship Specialty Start Date End Date No, Physician PCP - General 08/06/22 documented as of this encounter
--- OUTSIDE RECORDS SUMMARY | 2024-03-15 14:51 | XMS_ITS | Referral Summary ---
Author Organization [facility] [address] [facility] Address [address] [place] [address] Care Team Providers Care Jewelry Consultant Name Role Phone No, Physician Primary Care Provider [phone] Encounters Date Type Department Care Team Description 03/10/2024 Telephone [facility] Medical Group Cardiology [address] [place] [address] Vivi Velasco MA Scheduling Appointments 02/15/2024 Hospital Encounter [facility] [address] [place] [address] Garry Blair MD from Last 3 Months Allergies Active Allergy Reactions Criticality Noted Date Comments Penicillin G Itching Low 08/12/2023 Medications vit [id number]-dh a 27mg iron- 800 mcg-250 mg capsule [...] 02/19/2023 08/12/2023 Endometritis following delivery 02/19/2023 08/12/2023 Immunizations Name Administration Dates Next Due DTaP [...] Conjugate 7-Valent 10/01/2000,04/03,02/19/2000 Tdap 03/25/2015,10/19/2010 Varicella 12/17/2008,10/19/1999 Social History Tobacco Use Types Packs/Day Years Used Date Smoking Tobacco: Never Tobacco Cessation:Counseling Given: Not Answered Alcohol Use Standard Drinks/Week Comments Never 0 (1 standard drink = 0.6 oz pur e alcohol) Arnold Depression Scale Answer Date Recorded Arnold Depression Scale Total 20 08/29/2023 The thought [...] 10/30/2023 10:13 AM CDT Plan of Treatment Not on file Procedures Procedure Name Priority Date/Time Associated Diagnosis [...] 2:21 PM CDT 08/12/2023 7:29 PM CDT Coni Matta MD LAB MICROBIOLOGY - GENERAL ORD ERABLES Edited Result - Final [facility] [address] [facility] Department [place] [address] from Last 3 Months or Most Recently Relevant to Health Maintenance Insurance [facility] Member Subscriber Plan / Payer (Ef fective 2022-Present) Name:Mariam Monet Relation to Subscriber:Self Name:Mariam Monet Payer ID:[id number] (NAIC) Type:MEDICAID RISK OTHER Address: [address] [facility] IDPA IDPA ANTHEM ACCESS CHOICE [employer] [facility] EMPLOYEE HEALTH PLANS Address: [facility] [address] [place] [address] Care Teams Jewelry Consultant Relationship Specialty Start Date End Date No, Physician PCP - General 08/06/22
--- OUTSIDE RECORDS SUMMARY | 2024-03-15 14:52 | XMS_ITS | Encounter Summary ---
Author Organization [facility] Healthcare Address [address] [place] [address] Care Team Providers Care Glove Wrapper Name Role Phone No, Physician Primary Care Provider [phone] Encounter Details Date Type Department Care Team (Late st Contact Info) Description 10/04/[address] [facility] Medical Group Obstetrical Gynecology [address] [address] Garry Blair MD [address] [facility] [address] [place] [address] Leg cramping (Primary Dx); Supervision of other normal , antepartum Social History Tobacco Use Types Packs/Day Years Used Date Smoking Tobacco: Never Alcohol Use Standard Drinks/Week Comments Never 0 (1 standard drink = 0.6 oz pur e alcohol) [place] Depression Scale Answer Date Recorded [place] Depression Scale Total 20 08/29/2023 The thought [...] documented as of this encounter Results * Magnesium (10/22/2023 12:17 PM CDT) Pathologist [facility] Magnesium 2.0 1.4 - 2.5 mg/dL Blood 10/22/2023 12:1 7 PM CDT 10/22/2023 12:28 PM CDT Garry Blair MD LAB BLOOD ORDERABLES Fin al Result Performing Organization Address City/State/[facility] Co de Phone Number [facility] [address] [facility] Department [place] [address] * (ABNORMAL) Basic metabolic panel (10/22/2023 12:17 PM CDT) [facility] Sodium 137 135 - 145 mmol/L Potassium, pl 3.8 3.3 - 4.9 mmol/L [facility] Chloride 104 97 - 110 mmol/L [facility] CO2 25 22 - 32 mmol/L [facility] Anion gap 8 2 - 15 mmol/L [facility] BUN 7 6 - 25 mg/dL [facility] Creatinine 0.45(L) 0.60 - 1.10 mg/dL [facility] Glucose 79 70 - 199 mg/dL [facility] Comment: Interpretive Data Fasting glucose >/= 126 [...] 2022. Calcium 8.8 8.5 - 10.3 mg/dL [facility] Blood 10/22/2023 12:1 7 PM CDT 10/22/2023 12:28 PM CDT Garry Blair MD LAB BLOOD ORDERABLES Fin al Result [facility] [address] [facility] Department [place] [address] documented in this encounter Visit Diagnoses Diagnosis Leg cramping- Primary Supervision of other normal , antepartum documented in this encounter Care Teams Glove Wrapper Relationship Specialty Start Date End Date No, Physician PCP - General 08/06/22 documented as of this encounter
--- OUTSIDE RECORDS SUMMARY | 2024-03-15 14:52 | XMS_ITS | Encounter Summary ---
Author Organization [facility] Healthcare Address [address] [place] [address] Care Team Providers Care Swabber Name Role Phone No, Physician Primary Care Provider [phone] Reason for Visit * Reason Comments Routine Visit 20.4 weeks Encounter Details Date Type Department Care Team (Latest Contact Info) Description 2023 11:30 AM CDT Routine [facility] Medical Group Obstetrical Gynecology [address] [place] [phone] Garry Blair MD [address] [place] [address] GBS bacteriuria (Primary Dx); History of depression; History of hemorrhage; Supervision of other normal , antepartum Social History Tobacco Use Types Packs/Day Years Used Date Smoking Tobacco: Never Alcohol Use Standard Drinks/Week Comments Never 0 (1 standard drink = 0.6 oz pur e alcohol) [place] Depression Scale Answer Date Recorded [place] Depression Scale Total 20 08/29/2023 The thought [...] Reading Time Taken Comments Blood Pressure 98/60 2023 11:01 AM CDT Pulse - - Temperature - - Respiratory Rate - - Oxygen Saturation - - Inhaled Oxygen Concentration - - Weight 57.2 kg (126 lb) 2023 11:01 AM CDT Height 160 cm (5' 3 ) 2023 11:01 AM CDT Body Mass Index 22.32 2023 11:01 AM CDT documented in this encounter Progress Notes * Garry Blair MD - 2023 11:30 AM CDT Return OB Visit Mariam Lea is a 22 y.o. female at 20w4d here for return OB visit. Patient reports no acute concerns FM+ Denies vb, lof, ctxs Denies CHEEMA/altered vision/CP/SOB/abdominal pain/significant edema/LE discomfort. Objective BP 98/60 Ht 160 cm (5' 3 ) Wt 126 lb (57.2 kg) LMP (LMP Unknown) BMI 22.32 kg/m?? Body mass index is 22.32 kg/m??. TW lb (2.722 kg) Heart Rate: +US Assessment/Plan: Mariam Lea is a 22 y.o. female at 20w4d [...] last delivery and has tolerated Amoxicillin before aswell, for swab at 36 weeks for sensitivities? [...] answered. - Follow-up: 4wks JEANNA Blair MD documented in this encounter Plan of Treatment Not on file documented as of this encounter Visit Diagnoses Diagnosis GBS bacteriuria- Primary History of depression Personal history of other mental disorder History of hemorrhage Supervision of other normal , antepartum documented in this encounter Historical Medications * This list may reflect changes made after this encounter. aspirin 81 mg enteric coated tablet Take 1 tablet (81 mg total) by mouth daily added in this encounter Care Teams Swabber Relationship Specialty Start Date End Date No, Physician PCP - General 08/06/22 documented as of this encounter
--- OUTSIDE RECORDS SUMMARY | 2024-03-15 14:54 | XMS_ITS | Encounter Summary ---
Author Organization [facility] Healthcare Address [address] [place] [address] Care Team Providers Care Employee'S Representative Name Role Phone No, Physician Primary Care Provider [phone] Encounter Details Date Type Department Care Team (Late st Contact Info) Description 08/16/2023 Orders Only [facility] Medical Group Obstetrical Gynecology [address] [address] Coni Matta MD [address] [facility] [address] [place] [address] Supervision of other normal , antepartum (Primary Dx) Social History Tobacco Use Types Packs/Day Years Used Date Smoking Tobacco: Never Alcohol Use Standard Drinks/Week Comments Never 0 (1 standard drink = 0.6 oz pur e alcohol) Personal Safety Answer Date Recorded Have you [...] this encounter Visit Diagnoses Diagnosis Supervision of other normal , antepartum- Primary documented in this encounter Care Teams Employee'S Representative Relationship Specialty Start Date End Date No, Physician PCP - General 08/06/22 documented as of this encounter
--- OUTSIDE RECORDS SUMMARY | 2024-03-15 14:54 | XMS_ITS | Encounter Summary ---
Author Organization [facility] Healthcare Address [address] [place] [address] Care Team Providers Care Circus Artist Name Role Phone No, Physician Primary Care Provider [phone] Encounter Details Date Type Department Care Team (Late st Contact Info) Description 09/06/2023 Telephone [facility] Healthcare Occupatiuonal Health [address] [place] [address] Room [address] (Third Floor) [place] [address] Paloma Rao RN Social History Tobacco Use Types Packs/Day Years Used Date Smoking Tobacco: Never Alcohol Use Standard Drinks/Week Comments Never 0 (1 standard drink = 0.6 oz pur e alcohol) [place] Depression Scale Answer Date Recorded [place] Depression Scale Total 20 08/29/2023 The thought [...] encounter Miscellaneous Notes * Telephone Encounter - Paloma Rao RN - 09/06/2023 12:17 PM CDT 09/06/2023 12:17 PM Employee COVID-19 Screening Email: [email or web address] Employee/Student ID# [id number] Wellness Coordinator/Filter Tender name and email address: [email or web address] Are you an employee or student? Employee Employer: [employer] Are you 100% ALYCE? No Employee Facility: [facility] Medical [facility] Are you okay receiving positive results and further instructions via email? 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 Are you considered to be severely immunocompromised? No Have you had a vaccine within the past 48 hours? No Have you been vaccinated against Covid-19? Yes Series: full initial series Have you tested positive for COVID in the past 60 days? No Have you had a known, specific Covid exposure within the last 14 days? No Employee Symptoms: Yes Date of employee symptom onset: 09/05/2023 Description of Symptoms: Sore Throat;Headache;Fever Temperature: 102 Did you work on site 48 hours prior to symptom onset and/or any days while symptomatic? Yes Which date(s) did the employee work? 09/03-09/05 Were you unmasked within 6 ft for longer than 15 minutes from another employee those days? No Did you come within 6 feet for more than 15 minutes with any patients without wearing a mask duringthe 48 hours prior to symptom onset? And/or while symptomatic? No Plan: (A) Stay home and test for symptoms Testing Site Location: [facility] A0 (stay home and test) for symptomatic employees (HCW and Non-HCW) Thank you for calling the Occupational Health Call Center. This email contains the same informationand recommendations discussed during your call. You should also forward this information to your keymodule assembly supervisor as confirmation. Given your symptoms, you should not come to work and will be referred for combined COVID/Influenza/RSV testing. If you have had a COVID infection in the past 2 months, your COVID test will likely result positivedue to your prior infection. In this case, further guidance will be based solely on Influenza and RSV results. If you are at work on site, you must leave work now. Notify your keymodule assembly supervisor that you have been directed to do so by the Occupational Health Call Center. Please go to the employee testing site as directed for your test. They should be expecting you; if there is any confusion, please call us at [phone]. Since you are reporting symptoms, wear a hospital provided mask when reporting for your test. While you are awaiting testing and results, you must remain off work. You should isolate yourself at home, avoid contact with any household members as much as possible, and stay in your home without leaving except for medical care. You should let your keymodule assembly supervisor know that you will not be coming to work. Although we will email your keymodule assembly supervisor to confirm this, it is still your responsibility to notify your keymodule assembly supervisor as you wouldfor any other work absence. If you have the option to derrick worker well service and you feel well enough, it must be approved by your keymodule assembly supervisor We will notify you of your test results, which are usually available within 24- 48 hours. Your results will also post to your [facility] My Chart account ([email or web address]). Once yourresults are back, you will receive further instruction from Occupational Health. All further communication, including test results and guidance on returning to work, will be through the email you provided us during your screening. You must follow any additional isolation or quarantine instructions provided to you by federal, state, or local health authorities. Sincerely, Occupational Health Call Center Additional resources around self-isolation and how to prevent spread are available at: www.cdc.gov/coronavirus/2019-ncov documented in this encounter Plan of Treatment Not on file documented as of this encounter Results * Influenza A/B, RSV, and COVID-19 PCR Nasopharyngeal (09/06/2023 2:21 PM CDT) Pathologist [facility] COVID-19 RNA Negative Negative [facility] Influenza A RNA Negative Negative [facility] Influenza B RNA Negative Negative [facility] RSV RNA Negative Negative [facility] Comment: Interpretive data: Testing performed by [facility] ([phone]). This test is performed using the [employer] Xpert Xpress CoV-2/Flu/RSV plus assay. This is a multiplex, real-time reverse transcriptase PCR assay intended for the qualitative detection of nucleic acid from SARS-CoV-2, influenza A, influenza B, and respiratory syncytial virus. This assay has been cleared by the [place] Food and Drug administration. The performance characteristics have been verified by the [facility]. ??Results must be considered in the clinical context, and a negative result does not rule out infection. Interpretive Data last revised 2023 Nasopharyngeal 09/06/2023 2: 21 PM CDT 09/06/2023 5:50 PM CDT Narrative [facility] - 09/06/2023 6:37 PM CDT Bill to [facility] Stampt - [id number] Patient is employed by/enrolled at:->[facility] Medical [facility] Is the patient experiencing any symptoms consistent with COVID (eg. Fever, cough, shortness of breath)?->Yes Reason for testing?->Symptomatic Is the Patient experiencing symptoms consistent with COVID?->Yes Elier Akers MD LAB MICROBIOLOGY - GENERAL OR DERABLES Final Result Performing Organization Address City/State/[facility] Co de Phone Number [facility] Department [place] [address] [facility] documented in this encounter Visit Diagnoses Diagnosis Fever, unspecified fever cause- Primary Mild headache Sorethroat Acute pharyngitis Fever, unspecified fever cause Mild headache Sorethroat Acute pharyngitis documented in this encounter Additional Health Concerns Infection Onset Date Last Indicated Resolved Time COVID: Suspected 09/06/2023 09/06/2023 09/06/2023 6:38 PM CDT documented as of this encounter Care Teams Circus Artist Relationship Specialty Start Date End Date No, Physician PCP - General 08/06/22 documented as of this encounter
--- OUTSIDE RECORDS SUMMARY | 2024-03-15 14:54 | XMS_ITS | Encounter Summary ---
Author Organization [facility] Healthcare Address [address] [place] [address] Care Team Providers Care Clothespin Machine Operator Name Role Phone No, Physician Primary Care Provider [phone] Encounter Details Date Type Department Care Team (Late st Contact Info) Description 07/23/2023 Orders Only [facility] Healthcare Occupatiuonal Health [address] [facility] Room [address] (Third Floor) [place], [place] [id number] Elier Akers MD [address] [place], [place] [phone] Pre-employment health screening examination (Primary Dx) Social History Tobacco Use Types Packs/Day Years Used Date Smoking Tobacco: Never Alcohol Use Standard Drinks/Week Comments Never 0 (1 standard drink = 0.6 oz pur e alcohol) Personal Safety Answer Date Recorded Have you ever been in or are you currently in a harmful physical or emotional relationship or is someone making you feel afraid or unsafe? Denies 02/10/2023 Comments No Sex and Gender Information Value Date Recorded Sex Assigned at Not on file Legal Sex Female 12:21 PM CDT Gender Identity Not on file Sexual Orientation Not on file documented as of this encounter Plan of Treatment Not on file documented as of this encounter Results * T-SPOT.TB Blood (07/23/2023 8:10 AM CDT) T-SPOT.TB BORDERLINE SeeBelow Comment: Normal Value: Negative The patient's test result cannot be definitively classified as positive or negative. Retesting of the patient is recommended although there is no set guideline established for the time interval between an initial borderline result and a retest. The T-SPOT.TB is a diagnostic aid. If the test result remains borderline upon retesting, other diagnostics and/or epidemiologic information should be used to help determine the Mycobacterium tuberculosis infection status of the patient. ??The T-SPOT.TB test is qualitative and results are reported as positive, borderline or negative, given that the test controls perform as expected. In line with the Centers for Disease Control and Prevention's 2010 recommendation to report quantitative measurements alongside the qualitative result, the laboratory provides spot counts for informational purposes only. The T-SPOT.TB test should not be interpreted as a quantitative test. T-SPOT.TB Panel A Spot Count 6 [facility] T-SPOT.TB Panel B Spot Count 0 [facility] T-SPOT.TB Negative Control Passed [facility] T-SPOT.TB Positive Control Passed [facility] Comment: Test Performed at: [facility] [address] [place] [address] ??[id number] ? MILADY FLORES,PHD Blood 07/23/2023 8:10 AM CDT 07/23/2023 12:16 PM CDT Narrative [facility] - 07/26/2023 3:08 PM CDT Bill to [facility] [address] Patient is employed by/enrolled at:->[facility] Elier Akers MD LAB MICROBIOLOGY - GENERAL OR DERABLES Final Result [facility] Department [place] [address] documented in this encounter Visit Diagnoses Diagnosis Pre-employment health screening examination- Primary Health examination of defined subpopulation Pre-employment health screening examination Health examination of defined subpopulation documented in this encounter Care Teams Clothespin Machine Operator Relationship Specialty Start Date End Date No, Physician PCP - General 08/06/22 documented as of this encounter
--- OUTSIDE RECORDS SUMMARY | 2024-03-15 14:54 | XMS_ITS | Encounter Summary ---
Author Organization [facility] Healthcare Address [address] [place] [address] Care Team Providers Care Correctional Counselor Name Role Phone No, Physician Primary Care Provider [phone] Reason for Referral * Cardiology (Routine) - Closed Specialty Diagnoses / Procedures Referred By Contac t Referred To Contact Diagnoses Supervision of other normal , antepartum Light headed Tachycardia Procedures ECG 12 lead Judy Luna MD [facility] [address] Phone: tel: fax: [address] [address] Referral ID Status Reason Start Date Expiration Date Visits Re quested Visits Authorized [id number] Closed 09/03/2023 2024 1 1 Encounter Details Date Type Department Care Team (Late st Contact Info) Description 09/03/2023 Telephone [facility] Medical Group Obstetrical Gynecology [address] [facility] [address] [place] [address] Judy Luna MD [address] [place] [id number] Social History Tobacco Use Types Packs/Day Years Used Date Smoking Tobacco: Never Alcohol Use Standard Drinks/Week Comments Never 0 (1 standard drink = 0.6 oz pur e alcohol) Houston Depression Scale Answer Date Recorded Houston Depression Scale Total 20 08/29/2023 The thought [...] encounter Miscellaneous Notes * Telephone Encounter - Kristen Grande RN - 09/03/2023 2:54 PM CDT Labs ordered, pt notified. * Telephone Encounter - Judy Luna MD - 09/03/2023 2:42 PM CDT Okay, then lets get some labs: CMP, CBC, iron panel, TSH, mag, phos And an EKG * Telephone Encounter - Kristen Grande RN - 09/03/2023 1:19 PM CDT She is 14 and 3 today. Per the pt: No, it's also happened in the past, but its at random when it happens, so I thought it went away. It does feel like it gets worse with , but with my intervals being so short, we never ruled out if it was related or not. BP: 102/74 sitting 98/74 standing * Telephone Encounter - Kristen Grande RN - 09/03/2023 11:37 AM CDT Per the pt: I started experiencing what feels like syncope , its not really based around anything Ifeel like. It could be related or it could be cardiovascular. I just had it occur when wewere in procedure is all I know and a few other times. I'm not sure if I need Triaged, it's basically just out of no where when it happens. I get dizzy my heart rate feels like It goes up and I'll start to loose my hearing and vision if I dont sit down when it happens. I asked the pt if she has been drinking plenty of water and eating well balanced meals and she reports yes. Can she have nausea meds for her daily nausea? * Telephone Encounter - Marcello Orozco LPN - 09/03/2023 11:08 AM CDT Pt states lightheadedness, loss of hearing and feeling like she's going to pass out during clinic, worse when witnessing Nexplanon procedure. States she has been throwing up frequently in mornings still, so maybe not well hydrated, states she did eat this morning. Sitting alleviates symptoms. documented in this encounter Plan of Treatment Not on file documented as of this encounter Results * Phosphorus (09/04/2023 11:04 AM CDT) Phosphorus, pl 3.0 2.3 - 4.5 mg/dL Comment:Testing performed by : [facility], [address] [place] [address], [place]., [address] Blood 09/04/2023 11:0 4 AM CDT 09/04/2023 2:02 PM CDT Judy Luna MD LAB BLOOD ORDERABLES Final R esult Performing Organization Address [facility] Co de Phone Number [address] [address] * Magnesium (09/04/2023 11:04 AM CDT) Pathologist [facility] Magnesium 2.0 1.4 - 2.5 mg/dL Comment:Testing performed by : [address] [address] Blood 09/04/2023 11:0 4 AM CDT 09/04/2023 2:02 PM CDT Judy Luna MD LAB BLOOD ORDERABLES Final R esult Performing Organization Address [facility] Co de Phone Number L[address] [address] * Thyroid Function Bonner (09/04/2023 11:04 AM CDT) [facility] TSH 1.05 0.30 - 4.20 mcIUnit/mL Comment:Testing performed by : [address] [address] Blood 09/04/2023 11:0 4 AM CDT 09/04/2023 2:02 PM CDT Judy Luna MD LAB BLOOD ORDERABLES Final R esult Performing Organization Address [facility] Co de Phone Number L[address] [address] * (ABNORMAL) Iron profile w/ IBC (09/04/2023 11:04 AM CDT) [facility] Iron 64 35 - 145 mcg/dL Comment:Testing performed by : [address] [address] TIBC 419(H) 250 - 400 mcg/dL ALBERTO Comment:Testing performed by : [address] [address] Transferrin saturation 15(L) 20 - 50 % ALBERTO Comment:Testing performed by : [address] [address] Blood 09/04/2023 11:0 4 AM CDT 09/04/2023 2:02 PM CDT Judy Luna MD LAB BLOOD ORDERABLES Final R esult ALBERTO [address] [facility] Department [place] [address] * (ABNORMAL) Comprehensive metabolic panel (09/04/2023 11:04 AM CDT) Sodium 136 135 - 145 mmol/L Comment:Testing performed by : [address] [address] Potassium, pl 3.8 3.3 - 4.9 mmol/L ALBERTO Comment:Testing performed by : [address] [address] Chloride 102 97 - 110 mmol/L ALBERTO Comment:Testing performed by : [address] [address] CO2 21(L) 22 - 32 mmol/L ALBERTO Comment:Testing performed by : [address] [address] Anion gap 13 2 - 15 mmol/L ALBERTO Comment:Testing performed by : [address] [address] BUN 5(L) 6 - 25 mg/dL ALBERTO Comment:Testing performed by : [address] [address] Creatinine 0.30(L) 0.60 - 1.10 mg/dL ALBERTO Comment:Testing performed by : [address] [address] Glucose 72 70 - 199 mg/dL ALBERTO Comment: Interpretive Data Fasting glucose >/= 126 [...] Current interpretive data was last revised 2022. Testing performed by: [address] [address] Calcium 8.6 8.5 - 10.3 mg/dL ALBERTO Comment:Testing performed by : [address] [address] Bilirubin, total 0.3 0.1 - 1.2 mg/dL ALBERTO Comment:Testing performed by : [address] [address] Protein, pl 6.7 6.5 - 8.5 g/dL ALBERTO Comment:Testing performed by : [address] [address] Albumin 4.0 3.5 - 5.0 g/dL ALBERTO Comment:Testing performed by : [address] [address] Alk phos 48 40 - 130 Units/L ALBERTO Comment:Testing performed by : [address] [address] ALT <5(L) 7 - 45 Units/L ALBERTO Comment:Testing performed by : [address] [address] AST 12 10 - 45 Units/L ALBERTO Comment:Testing performed by : [address] [address] Blood 09/04/2023 11:0 4 AM CDT 09/04/2023 2:02 PM CDT us Judy Luna MD LAB BLOOD ORDERABLES Final R esult ALBERTO [address] [facility] Department [place] [address] * (ABNORMAL) CBC without differential (09/04/2023 11:04 AM CDT) [facility] WBC 7.9 3.8 - 9.9 K/cumm Comment:Testing performed by : [address] [address] Hgb 11.6(L) 11.9 - 15.5 g/dL ALBERTO Comment:Testing performed by : [address] [address] Hct 36.5 35.6 - 45.5 % ALBERTO Comment:Testing performed by : [address] [address] Plt 225 150 - 400 K/cumm ALBERTO Comment:Testing performed by : [address] [address] MPV 11.5 9.1 - 12.3 fL ALBERTO Comment:Testing performed by : [address], [address] RBC 4.49 3.90 - 5.20 M/cumm ALBERTO Comment:Testing performed by : [address] [address] MCV 81.3 81.3 - 96.4 fL ALBERTO Comment:Testing performed by : [address] [address] MCH 25.8(L) 27.1 - 33.3 pg ALBERTO Comment:Testing performed by : [address] [address] MCHC 31.8(L) 32.3 - 35.7 g/dL ALBERTO Comment:Testing performed by : [address] [address] RDW CV 20.9(H) 11.1 - 14.9 % ALBERTO Comment:Testing performed by : [address], [address] RDW SD 59.1(H) 35.7 - 48.1 fL ALBERTO Comment:Testing performed by : [address], [address] NRBC abs 0.00 0.00 - 0.01 K/cumm ALBERTO DELUCA Comment:Testing performed by : [facility], [address] [place] [address]., [address] Blood 09/04/2023 11:0 4 AM CDT 09/04/2023 11:44 AM CDT Judy Luna MD LAB BLOOD ORDERABLES Final R esult ALBERTO [address] [facility] Department [place] [address] * ECG 12 lead (09/04/2023 9:00 AM CDT) Ventricular Rate EKG/Min 78 BPM [facility] Atrial Rate 78 BPM [facility] RI-Interval (MSEC) 150 ms [facility] QRS-Interval (MSEC) 72 ms [facility] QT-Interval (MSEC) 368 ms [facility] QTc 419 ms [facility] P [place] [address] degrees [facility] R [place] [address] degrees [facility] T [place] [address] degrees [facility] Diagnosis Normal sinus rhythm Normal ECG When compared with ECG of 24-FEB-2023 13:22, No significant change was found Confirmed by DWIGHT MORGAN M.D. ([id number]) on 09/04/2023 3:44:28 PM [facility] 09/04/2023 8:51 AM CDT 09/04/2023 3:44 PM CDT Judy Luna MD ECG ORDERABLES Final Result Performing Organization Address City/[facility]/ZIP Co de Phone Number [facility] [employer] [facility] documented in this encounter Visit Diagnoses Diagnosis Supervision of other normal , antepartum- Primary Light headed Dizziness and giddiness Tachycardia Unspecified tachycardia documented in this encounter Care Teams Correctional Counselor Relationship Specialty Start Date End Date No, Physician PCP - General 08/06/22 documented as of this encounter
--- OUTSIDE RECORDS SUMMARY | 2024-03-15 14:54 | XMS_ITS | Encounter Summary ---
Author Organization [facility] Address [address] [place] [address] Care Team Providers Care [employer] Sales Representative Name Role Phone No, Physician Primary Care Provider [phone] Reason for Referral * Cardiology (Routine) - Closed Specialty Diagnoses / Procedures Referred By Contac t Referred To Contact Diagnoses Supervision of other normal , antepartum Light headed Tachycardia Procedures ECG 12 lead Judy Luna MD [address] [place] [address] Phone: tel: fax: [address] [address] Referral ID Status Reason Start Date Expiration Date Visits Re quested Visits Authorized [id number] Closed 09/03/2023 2024 1 1 Reason for Visit * Cardiology (Routine) - Closed Specialty Diagnoses / Procedures Referred By Contac t Referred To Contact Diagnoses Supervision of other normal , antepartum Light headed Tachycardia Procedures ECG 12 lead Judy Luna MD [address] [place] [address] Phone: tel: fax: [address] [phone] Referral ID Status Reason Start Date Expiration Date Visits Re quested Visits Authorized [id number] Closed 09/03/2023 2024 1 1 Encounter Details Date Type Department Care Team (Latest Contact Info) Description 09/04/2023 8:24 AM CDT - 09/04/2023 11:59 PM CDT Hospital Encounter [facility] Cardiac Testing [address] [place] [address] Supervision of other normal , antepartum; Light headed; Tachycardia Discharge Disposition: Discharge to home or self care Social History Tobacco Use Types Packs/Day Years Used Date Smoking Tobacco: Never Alcohol Use Standard Drinks/Week Comments Never 0 (1 standard drink = 0.6 oz pur e alcohol) Joy Depression Scale Answer Date Recorded Joy Depression Scale Total 20 08/29/2023 The thought [...] this encounter Medications at Time of Discharge vit [id number] 27mg iron- 800 mcg-250 mg capsule Take by mouth sertraline (ZOLOFT) 25 mg tabletIndications :Anxiety and depression Take 1 tablet (25 mg total) by mouth daily 30 tablet 5 09/02/2023 10/30/2023 documented as of this encounter Discharge Disposition Disposition Code Departure Means Destination Discharge to home or self care documented in this encounter Plan of Treatment Not on file documented as of this encounter Procedures Procedure Name Priority Date/Time Associated Diagnosis Comments ECG 12-LEAD Routine 09/04/2023 9:00 AM CDT Supervision of other normal , antepartum Light headed Tachycardia documented in this encounter Results * ECG 12 lead (09/04/2023 9:00 AM CDT) Ventricular Rate EKG/Min 78 BPM [facility] Atrial Rate 78 BPM [facility] [place]-Interval (MSEC) 150 ms [facility] QRS-Interval (MSEC) 72 ms [facility] QT-Interval (MSEC) 368 ms [facility] QTc 419 ms [facility] P [place] [address] degrees [facility] R [place] [address] degrees [facility] T [place] 31 degrees [facility] Diagnosis Normal sinus rhythm Normal ECG When compared with ECG of 24-FEB-2023 13:22, No significant change was found Confirmed by DWIGHT MORGAN M.D. ([id number]) on 09/04/2023 3:44:28 PM [facility] 09/04/2023 8:51 AM CDT 09/04/2023 3:44 PM CDT us Judy Luna MD ECG ORDERABLES Final Result [facility] documented in this encounter Visit Diagnoses Diagnosis Supervision of other normal , antepartum Light headed Dizziness and giddiness Tachycardia Unspecified tachycardia documented in this encounter Care Teams [employer] Sales Representative Relationship Specialty Start Date End Date No, Physician PCP - General 08/06/22 documented as of this encounter
--- OUTSIDE RECORDS SUMMARY | 2024-03-15 14:54 | XMS_ITS | Encounter Summary ---
Author Organization [facility] Healthcare Address [address] [place] [address] Care Team Providers Care Bingo Floater Name Role Phone No, Physician Primary Care Provider [phone] Reason for Visit * Reason Comments Initial Visit Encounter Details Date Type Department Care Team ([facility] st Contact Info) Description 08/12/2023 1:[address] [facility] Medical Group Obstetrical Gynecology [address] [phone] Coni Matta MD [address] [address] [place]: 13w2d Social History Tobacco Use Types Packs/Day Years [...] Sign Reading Time Taken Comments Blood Pressure 100/58 08/12/2023 1:17 PM CDT Pulse - - Temperature - - Respiratory Rate - - Oxygen Saturation - - Inhaled Oxygen Concentration - - Weight 54.4 kg (120 lb) 08/12/2023 1:17 PM CDT Height 160 cm (5' 3 ) 08/12/2023 1:17 PM CDT Body Mass Index 21.26 08/12/2023 1:17 PM CDT documented in this encounter Progress Notes * Coni Matta MD - 08/12/2023 1:45 PM CDT Initial OB Visit Subjective: Mariam Lea is a 22 y.o., at 13w2d, based [...] CNM 6 Current Past medical, surgical, and [place] history fully reviewed. ROS Objective: BP 100/58 [...] other normal , antepartum 08/12/2023 by Kristen Alvarez RN No History of hemorrhage 08/12/2023 by Kristen Alvarez RN No History of depression 08/12/2023 by Kristen Alvarez RN No VScan: ample movement Plan: Surveillance [...] DOL #2. Will check TVCL at anatomy sonogram.Currently, no other interventions indicated Follow up in 4 weeks. Coni Matta MD 08/12/2023 documented in this encounter Miscellaneous Notes * Addendum Note - Kristen Alvarez RN - 08/12/2023 1:45 PM CDT Addended by: KRISTEN ALVAREZ on: 08/16/2023 12:22 PM Modules accepted: Orders documented in this encounter Plan of Treatment Not on file documented as of this encounter Procedures Procedure Name Priority Date/Time Associated Diagnosis Comments PANORAMA TEST Routine 08/12/2023 2:01 PM CDT Encounter for supervision of other normal in first trimester documented in this encounter Results * Trichomonas vaginalis PCR Urine (08/16/2023 12:22 PM CDT) Trichomonas DNA Not Detected [facility] Comment: Interpretive Data This assay detects Trichomonas vaginalis by nucleic acid amplification testing (NAAT). This assay has been cleared by the [place] Food and Drug administration. The performance characteristics of this test have been verified by the [facility] laboratory. The performance of this test has not been evaluated in individuals less than 18 years of age. ?? Current Interpretive Data was last revised on 2023. Testing performed by: [facility], [address] [place]., [address] Urine 08/16/2023 12:2 2 PM CDT 08/16/2023 8:22 PM CDT Coni Matta MD LAB MICROBIOLOGY - GENERAL ORD ERABLES Final Result ALBERTO [address] [facility] Department [place] [address] [facility] * N. gonorrhoeae/C. trachomatis Amplification Urine (08/16/2023 12:22 PM CDT) C. trachomatis Not Detected [facility] Comment:Testing performed by : [facility], [address] [place] [address] N. gonorrhoeae Not Detected ALBERTO Comment: Interpretive Data This assay detects Chlamydia trachomatis and Neisseria gonorrhoeae by nucleic acid amplification testing (NAAT). This assay has been cleared by the [place] Food and Drug administration. The performance characteristics of this test have been verified by the [facility] laboratory. The performance characteristics of this test have not been evaluated in individuals less than 14 years of age. Current Interpretive Data was last revised on 2023. Testing performed by: [facility], [address] [place]., [address] Urine (None) 08/16/2023 12:2 2 PM CDT 08/16/2023 8:22 PM CDT Coni Matta MD LAB MICROBIOLOGY - GENERAL ORD ERABLES Final Result ALBERTO [address] [facility] Department [place] [address] [facility] * (ABNORMAL) Comprehensive metabolic panel (08/12/2023 2:21 PM CDT) Sodium 138 135 - 145 mmol/L Comment:Testing performed by : [address] [address] Potassium, pl 3.9 3.3 - 4.9 mmol/L ALBERTO Comment:Testing performed by : [address] [address] Chloride 104 97 - 110 mmol/L ALBERTO Comment:Testing performed by : [address] [address] CO2 21(L) 22 - 32 mmol/L ALBERTO Comment:Testing performed by : [address] [address] Anion gap 13 2 - 15 mmol/L ALBERTO Comment:Testing performed by : [address] [address] BUN 6 6 - 25 mg/dL ALBERTO Comment:Testing performed by : [address] [address] Creatinine 0.40(L) 0.60 - 1.10 mg/dL ALBERTO Comment:Testing performed by : [address] [address] Glucose 90 70 - 199 mg/dL ALBERTO Comment: Interpretive [...] was last revised 2022. Testing performed by: [address] [place] [address] Calcium 9.4 8.5 - 10.3 mg/dL ALBERTO Comment:Testing performed by : [address] [address] Bilirubin, total 0.3 0.1 - 1.2 mg/dL ALBERTO Comment:Testing performed by : [address] [address] Protein, pl 7.4 6.5 - 8.5 g/dL ALBERTO Comment:Testing performed by : [address] [address] Albumin 4.0 3.5 - 5.0 g/dL ALBERTO Comment:Testing performed by : [address] [address] Alk phos 56 40 - 130 Units/L ALBERTO Comment:Testing performed by : [address] [address] ALT 11 7 - 45 Units/L ALBERTO Comment:Testing performed by : [address] [address] AST 14 10 - 45 Units/L ALBERTO Comment:Testing performed by : [address] [address] Blood 08/12/2023 2:21 PM CDT 08/12/2023 4:17 PM CDT us Coni Matta MD LAB BLOOD ORDERABLES Final Res ult [facility] [address] [facility] Department of Laboratories [place], [place] [id number] * Protein / creatinine ratio, urine, random (08/12/2023 2:21 PM CDT) Protein, ur, quant <4.0 mg/dL Comment: Interpretive Data No reference range established. Current interpretive data was last revised 2018. Testing performed by: [address] [address] Creatinine Ur 25.3 mg/dL ALBERTO DELUCA Comment: Interpretive Data No reference range established. Current interpretive data was last revised 2018. Testing performed by: [facility], [address] [place] [address]., [address] Protein/creatinin e ratio <158.1 0.0 - 180.0 mg/g CR ALBERTO DELUCA Comment:Testing performed by : [facility], [address] [place] [address]., [address] Urine 08/12/2023 2:21 PM CDT 08/12/2023 4:22 PM CDT us Coni Matta MD LAB URINE ORDERABLES Final Res ult Performing Organization Address City/[facility]/ZIP Co de Phone Number ALBERTO [address] [facility] [employer] [place] [address] * Urine culture Urine, clean voided (08/12/2023 2:21 PM CDT) Report Final Report: Growth indicative of contamination with periurethral janeth. Please submit a new specimen with special attention given to the collection process and to prompt transport to the laboratory. Comment:Testing performed by : [facility], [address] [facility] [place]., [address] Organism GROWTH INDICATES CONTAM WITH PERIURETHRAL JANETH. ALBERTO DELUCA Urine, clean voided 08/12/2023 2:21 PM CDT 08/12/2023 7:55 PM CDT Narrative ALBERTO DELUCA - 08/14/2023 11:40 AM CDT Testing performed by [facility] ([phone]) us Coni Matta MD LAB MICROBIOLOGY - GENERAL ORD ERABLES Final Result Performing Organization Address City/[facility]/ZIP Co de Phone Number ALBERTO [address] [facility] [place] [address] * Rubella IgG antibody Blood (08/12/2023 2:21 PM CDT) Rubella IgG Reactive Reactive Blood 08/12/2023 2:21 PM CDT 08/12/2023 7:29 PM CDT Coni Matta MD LAB MICROBIOLOGY - GENERAL ORD ERABLES Final Result Performing Organization Address City/[facility] [[email or web address]] Co de Phone Number ALBERTO [address] [place] [address] * RPR Blood (08/12/2023 2:21 PM CDT) Pathologist [facility] RPR Nonreactive Nonreactive Comment:Testing performed by : [facility], [address] [facility], [place]., [address] Blood 08/12/2023 2:21 PM CDT 08/12/2023 7:20 PM CDT Coni Matta MD LAB MICROBIOLOGY - GENERAL ORD ERABLES Final Result Performing Organization Address [facility] [[email or web address]] Co de Phone Number [phone] [address] * HIV 1/2 Antibody plus p24 Antigen Blood (08/12/2023 2:21 PM CDT) Pathologist [facility] HIV 1/2 ab + p24 ag Nonreactive Nonreactive Comment:Nonreactive for HIV- 1 antigen and HIV-1/HIV-2 antibodies. No laboratory evidence of HIV infection. If acute HIV infection is suspected, consider testing for HIV-1 RNA. Current interpretive data was last revised on 21. Blood 08/12/2023 2:21 PM CDT 08/12/2023 7:29 PM CDT Coni Matta MD LAB MICROBIOLOGY - GENERAL ORD ERABLES Final Result Performing Organization Address City/[facility] [[email or web address]] Co de Phone Number [phone] [place] [address] * Hepatitis C antibody Blood (08/12/2023 2:21 PM CDT) Pathologist [facility] Hep C Ab Nonreactive Nonreactive Comment: Antibodies [...] GENERAL ORD ERABLES Edited Result - Final Performing Organization Address [facility] [[email or web address]] Co de Phone Number [place] [phone] [facility] [place] [address] * Hepatitis B Surface Antigen Blood (08/12/2023 2:21 PM CDT) Pathologist [facility] HepBsAg Nonreactive Nonreactive Blood 08/12/2023 2:21 PM CDT 08/12/2023 7:29 PM CDT Coni Matta MD LAB MICROBIOLOGY - GENERAL ORD ERABLES Final Result Performing Organization Address [facility] de Phone Number [place] [phone] [facility] [place] [address] * (ABNORMAL) Hemoglobin analysis by electrophoresis (08/12/2023 2:21 PM CDT) RBC 4.17 3.90 - 5.20 M/cumm Comment:Testing performed by : [facility], [address] [place] [address] Hgb 9.8(L) 11.9 - 15.5 g/dL ALBERTO DELUCA Comment:Testing performed by : [facility], [address] [place] [address] MCV 77.9(L) 81.3 - 96.4 fL ALBERTO DELUCA Comment:Testing performed by : [facility], [address] [facility], [address] Rdw 14.7 11.1 - 14.9 % ALBERTO DELUCA Comment:Testing performed by : [facility], [address] [facility], [address] Hgb electrophores is, interp Normal Hemoglobin Pattern - For Age ALBERTO DELUCA Comment:Testing performed by : [facility], [address] [facility], [address] Hgb A 97.6 96.0 - 98.5 % ALBERTO DELUCA Comment:Testing performed by : [facility], [address] [facility], [address] Hgb A2 2.4 1.5 - 3.2 % ALBERTO DELUCA Comment:Testing performed by : [facility], [address] [facility], [address] Hgb F <0.4 0.0 - 0.9 % ALBERTO DELUCA Comment:Testing performed by : [facility], [address] [facility], [address] Blood 08/12/2023 2:21 PM CDT 08/12/2023 7:19 PM CDT us Coni Matta MD LAB BLOOD ORDERABLES Final Res ult ALBERTO DELUCA [address] [facility] Department [place] [address] * Hemoglobin A1c (08/12/2023 2:21 PM CDT) [facility] Hgb A1C 5.6 4.0 - 5.6 % Comment:Testing performed by : [facility], [address] [place] [address]., [address] Estimated Average Glucose 114 mg/dL ALBERTO DELUCA Comment: The ADA recommends reporting an estimated Average Glucose (eAG) with all Hemoglobin A1c results using the equation derived from a study of 507 normal and diabetic adults. ??Minority populations were underrepresented and children were not included. ?? (Diabetes Care 31:6461-0105, 2008). ??The eAG is not equivalent to a fasting glucose. Testing performed by: [address] [address] Blood 08/12/2023 2:21 PM CDT 08/12/2023 4:21 PM CDT us Coni Matta MD LAB BLOOD ORDERABLES Final Res ult ALBERTO [address] [facility] Department [place] [address] * Drugs of Abuse Screen, Urine with Reflex Confirmation (08/12/2023 2:21 PM CDT) Pathologist [facility] Amphetamine, ur Not Detected CutOff 500ng/mL Comment: Interpretive Data - Amphetamines: ??Samples containing greater than 500 ng/mL d-methamphetamine ??or other cross-reacting amphetamine compounds are reported as positive. ??Amphetamine immunoassays are subject to significant false positive rates due to cross-reactivity of non-amphetamine drugs. Confirmatory testing required for definitive results. Current Interpretive Data was last reviewed 2022. Testing performed by: [address] [address] Barbiturates, ur Not Detected CutOff 200ng/mL ALBERTO Comment: Interpretive Data - Barbiturates: ??Samples containing greater than 200 ng/mL secobarbital or other cross-reacting barbiturate compounds are reported as positive. ??False positive and false negative results are possible. Confirmatory testing required for definitive results. Current Interpretive Data was last reviewed 2022. Testing performed by: [address] [address] Benzodiazepines, ur Not Detected CutOff 100ng/mL ALBERTO Comment: Interpretive Data - Benzodiazepines: ??Samples containing greater than 100 ng/mL nordiazepam or other cross-reacting compounds are reported as positive. False positive and false negative results are possible. Confirmatory testing required for definitive results. Current Interpretive Data was last reviewed 2022. Testing performed by: [address] [address] Cannabinoids, ur Not Detected CutOff 50 ng/mL [facility] Comment: Interpretive Data - Cannabinoids: ??Samples containing greater than 50 ng/mL delta-9 THC -COOH or other cross-reacting compounds are reported as positive. ??False positive and false negative results are possible. ??Confirmatory testing required for definitive results. Current Interpretive Data was last reviewed 2022. Testing performed by: [facility], [address] [place] [address]., [address] Cocaine, ur Not Detected CutOff 150ng/mL [facility] Comment: Interpretive Data - Cocaine: ??Samples containing greater than 150 ng/mL benzoylecgonine or other cross-reacting compounds are reported as positive. False positive and false negative results are possible. Confirmatory testing required for definitive results. Current Interpretive Data was last reviewed 2022. Testing performed by: [address] [address] Fentanyl, Ur Not Detected Cutoff 1 ng/mL [facility] Comment: Interpretive Data - Fentanyl: ??Samples containing greater than 1 ng/mL fentanyl or other cross-reacting fentanyl compounds are reported as positive. ??False positive and false negative results are possible. Confirmatory testing required for definitive results. Current Interpretive Data was last reviewed 2022. Testing performed by: [address] [address] Methadone, ur Not Detected CutOff 300ng/mL [facility] Comment: Interpretive Data - Methadone: ??Samples containing greater than 300 ng/mL d,l-methadone or other cross-reacting compounds are reported as positive. ??False positive and false negative results are possible. Confirmatory testing required for definitive results. Current Interpretive Data was last reviewed 2022. Testing performed by: [address] [address] Opiates, ur Not Detected CutOff 300ng/mL [facility] Comment: Interpretive Data - Opiates: ??Samples containing greater than 300 ng/mL morphine or other cross-reacting compounds are reported as positive. ??False positive and false negative results are possible. Confirmatory testing required for definitive results. Current Interpretive Data was last reviewed 2022. Testing performed by: [address] [address] Oxycodone, ur Not Detected CutOff 100ng/mL ALBERTO Comment: Interpretive Data - Oxycodone: ??Samples containing greater than 100 ng/mL oxycodone or other cross-reacting compounds are reported as ??positive. ??False positive and false negative results are possible. Confirmatory testing required for definitive results. Current Interpretive Data was last reviewed 2022. Testing performed by: [address] [address] Phencyclidine, ur Not Detected CutOff 25 ng/mL ALBERTO Comment: Interpretive Data - Phencyclidine: ??Samples containing greater than 25 ng/mL phencyclidine or other cross-reacting compounds are reported as positive. ??False positive and false negative results are possible. Confirmatory testing required for definitive results. Current Interpretive Data was last reviewed 2022. Testing performed by: [address] [address] Urine Creatinine 26 mg/dL ALBERTO Comment: Interpretive Data Urine Creatinine: < 10 mg/dL is extremely dilute = or > 10 but < 20 mg/dL is dilute = or > 20 mg/dL is normal Current Interpretive Data was last revised on 2017. Testing performed by: [address] [address] Urine 08/12/2023 2:21 PM CDT 08/12/2023 4:22 PM CDT Narrative ALBERTO - 08/12/2023 5:24 PM CDT Drug of Abuse screening is performed by immunoassay for medical purposes only. ??This is not to be used for Pain Management purposes. ??If Detected, confirmation testing will be performed for Amphetamines, Cocaine, Fentanyl, Methadone, Opiates, Oxycodone or Phencyclidine. us Coni Matta MD LAB URINE ORDERABLES Final Res ult ALBERTO [address] [facility] Department [place] [address] * (ABNORMAL) CBC without differential (08/12/2023 2:21 PM CDT) [facility] WBC 7.6 3.8 - 9.9 K/cumm Comment:Testing performed by : [address] [address] Hgb 10.0(L) 11.9 - 15.5 g/dL ALBERTO Comment:Testing performed by : [address] [address] Hct 32.0(L) 35.6 - 45.5 % ALBERTO Comment:Testing performed by : [address] [address] Plt 234 150 - 400 K/cumm ALBERTO Comment:Testing performed by : [address] [address] MPV 12.3 9.1 - 12.3 fL ALBERTO Comment:Testing performed by : [address], [address] RBC 4.13 3.90 - 5.20 M/cumm ALBERTO Comment:Testing performed by : [address] [address] MCV 77.5(L) 81.3 - 96.4 fL ALBERTO Comment:Testing performed by : [address] [address] MCH 24.2(L) 27.1 - 33.3 pg ALBERTO Comment:Testing performed by : [address] [address] MCHC 31.3(L) 32.3 - 35.7 g/dL ALBERTO Comment:Testing performed by : [address], [address] RDW CV 14.4 11.1 - 14.9 % ALBERTO Comment:Testing performed by : [address] [address] RDW SD 40.1 35.7 - 48.1 fL ALBERTO Comment:Testing performed by : [address] [place] [address] NRBC abs 0.00 0.00 - 0.01 K/cumm ALBERTO DELUCA Comment:Testing performed by : [facility], [address] [place] [address]., [address] Blood 08/12/2023 2:21 PM CDT 08/12/2023 4:17 PM CDT us Coni Matta MD LAB BLOOD ORDERABLES Final Res ult ALBERTO DELUCA [address] [facility] [place] [address] * Panorama Test (08/12/2023 2:01 PM CDT) REPORT SUMMARY LOW RISK 08/23/2023 4:20 AM CDT [facility] Comment:LOW RISK REPORT NOTE See Notes 08/23/2023 4:20 AM CDT [facility] GENDER OF FETUS Male 4:20 AM CDT [facility] FRACTION 12.0% 08/23/2023 4:20 AM CDT [facility] TRISOMY 21 RESULT TEXT Low Risk 08/23/2023 4:20 AM CDT [facility] TRISOMY 21 AGE-BASED RISK TEXT 03/25,009 (0.1%) 08/23/2023 4:20 AM CDT [facility] TRISOMY 21 RISK SCORE TEXT <1/10,000 (<0.01%) 08/23/2023 4:20 AM CDT [facility] TRISOMY 18 RESULT TEXT Low Risk 08/23/2023 4:20 AM CDT [facility] TRISOMY 18 AGE-BASED RISK TEXT 2,670 (0.04%) 08/23/2023 4:20 AM CDT [facility] TRISOMY 18 RISK SCORE TEXT <1/10,000 (<0.01%) 08/23/2023 4:20 AM CDT [facility] TRISOMY 13 RESULT TEXT Low Risk 08/23/2023 4:20 AM CDT [facility] TRISOMY 13 AGE-BASED RISK TEXT 8,314 (0.01%) 08/23/2023 4:20 AM CDT [facility] TRISOMY 13 RISK SCORE TEXT <110,000 (<0.01%) 08/23/2023 4:20 AM CDT [facility] MONOSOMY X RESULT TEXT Low Risk 08/23/2023 4:20 AM CDT [facility] MONOSOMY X AGE-BASED RISK TEXT 1/568 (0.18%) 08/23/2023 4:20 AM CDT [facility] MONOSOMY X RISK SCORE TEXT <110,000 (<0.01%) 08/23/2023 4:20 AM CDT [facility] TRIPLOIDY RESULT TEXT Low Risk 4:20 AM CDT [facility] 22Q11.2 DELETION SYNDROME RESULT TEXT Low Risk 08/23/2023 4:20 AM CDT [facility] 22Q11.2 DELETION SYNDROME POPULATION-BASED RISK TEXT 2,000 08/23/2023 4:20 AM CDT [facility] 22Q11.2 DELETION SYNDROME RISK SCORE TEXT 04/05,000 08/23/2023 4:20 AM CDT [facility] 1P36 DELETION SYNDROME RESULT TEXT Low Risk 08/23/2023 4:20 AM CDT [facility] 1P36 DELETION SYNDROME POPULATION-BASED RISK TEXT 03/29,000 08/23/2023 4:20 AM CDT [facility] 1P36 DELETION SYNDROME RISK SCORE TEXT 04/05,400 08/23/2023 4:20 AM CDT [facility] ANGELMAN SYNDROME RESULT TEXT Low Risk 08/23/2023 4:20 AM CDT [facility] ANGELMAN SYNDROME POPULATION-BASED RISK TEXT 04/05,000 08/23/2023 4:20 AM CDT [facility] ANGELMAN SYNDROME RISK SCORE TEXT 04/09,600 08/23/2023 4:20 AM CDT [facility] CRI-DU-CHAT SYNDROME RESULT TEXT Low Risk 08/23/2023 4:20 AM CDT [facility] CRI-DU-CHAT SYNDROME POPULATION-BASED RISK TEXT 04/13,000 08/23/2023 4:20 AM CDT [facility] CRI-DU-CHAT SYNDROME RISK SCORE TEXT 57,100 08/23/2023 4:20 AM CDT [facility] PRADER-WILLI SYNDROME RESULT TEXT Low Risk 08/23/2023 4:20 AM CDT [facility] PRADER-WILLI SYNDROME POPULATION-BASED RISK TEXT 000 08/23/2023 4:20 AM T [facility] PRADER-WILLI SYNDROME RISK SCORE TEXT 04/06,800 08/23/2023 4:20 AM CDT [facility] FOOTNOTES See Notes 08/23/2023 4:20 AM CDT [facility] Comment: Testing Methodology DNA isolated from maternal blood, which contains placental DNA, is amplified at specific loci using a targeted PCR assay and is sequenced using a high- throughput sequencer. fraction is determined using a proprietary algorithm incorporating data from single nucleotide polymorphism-based (SNP-based) next-generation sequencing [Usha Martinez et al. Obstet Gynecol. 2014 Oct;124(2 Pt 1):210-8]. If there is sufficient fraction, sequencing data is analyzed using a proprietary SNP- based algorithm to determine the copy number for chromosomes 13, 18, 21, X and Y. If ordered, specific microdeletions will be evaluated using similar methodology [Zita HANDLEY et al. Am J Obstet Gynecol. 2015 May;212(3):332.e1-9]. If the fraction is insufficient, signal enhancement and/or an additional algorithm to determine whether there is an increased risk for triploidy, trisomy 18, and trisomy 13 may be utilized [South et al. Ultrasound Obstet Gynecol 2019; 53:73-79]. However, some samples will not produce a result due to failure to meet the necessary quality thresholds. This test has been validated on women with a patel, twin or egg donor of at least nine weeks gestation. A result will not be available for higher order multiples and multiple gestation pregnancies with an egg donor or surrogate, or bone marrow transplant recipients. Complete test panel is not available for twin gestations and pregnancies achieved with an egg donor or surrogate. For twin pregnancies with a fraction value below the threshold for analysis, a sum of the fractions for both twins will be reported. As this assay is a screening test and not diagnostic, false positives and false negatives can occur. High risk test results need diagnostic confirmation by alternative testing methods. Low risk results do not fully exclude the diagnosis of any of the syndromes nor do they exclude the possibility of other chromosomal abnormalities or defects, which are not a part of this test. Potential sources of inaccurate results include, but are not limited to, mosaicism, low fraction, limitations of current diagnostic techniques, or misidentification of samples. This test will not identify all deletions associated with each microdeletion syndrome. This test has been validated for deletions ??> = 0.5 Mb within the 22q11.2 A-D region. This test has been validated on full region deletions only for 1p36 deletion syndrome, Cri-du-chat syndrome, Prader Willi syndrome and Angelman syndrome and may be unable to detect smaller deletions. Microdeletion risk score may be dependent upon fraction, as deletions on the maternally inherited copy are difficult to identify at lower fractions. Test results should always be interpreted by a clinician in the context of clinical and familial data with the availability of genetic counseling when appropriate. Disclaimers The extraction, library preparation, and sequencing of this test were performed by [facility] [id number] [place] [address] [address] [address] (CLIA ID [id number]). The data analysis and reporting of this test were performed by [facility] [address] [place] [address]. [facility] [address] [address] (CLIA ID [id number]). The performance characteristics of this test were developed by [facility].(CLIA ID [id number]). This test has not been cleared or approved by the U.S. Food and Drug Administration (FDA). These laboratories are regulated under CLIA as qualified to perform high-complexity testing. ??2020 [facility]. All Rights Reserved. Please refer to the attached PDF report Reviewed By: Omega Hilario M.D., Ph.D., [facility], Senior Laborer [facility] Telephone Maintainer: Kala Brown, Ph.D., [facility] IF THE ORDERING PROVIDER HAS QUESTIONS OR WISHES TO DISCUSS THE RESULTS, PLEASE CONTACT US AT [phone] #[phone]. Ask for the NIPT genetic counselor senior sales compensation analyst. Blood specimen (specimen) (Blood, Venous) 08/12/2023 2:01 PM CDT 08/23/2023 4:20 AM CDT us Coni Matta MD LAB GENETIC TESTING Final Resu lt [facility] [address] [place] [address], [facility] documented in this encounter Visit Diagnoses Diagnosis Encounter for supervision of other normal in first trimester- Primary Encounter for supervision of other normal in first trimester documented in this encounter Care Teams Bingo Floater Relationship Specialty Start Date End Date No, Physician PCP - General 08/06/22 documented as of this encounter
--- OUTSIDE RECORDS SUMMARY | 2024-03-15 14:54 | XMS_ITS | Encounter Summary ---
Author Organization [facility] Healthcare Address [address] [place] [address] Care Team Providers Care Managing Consultant Clinical Professor Name Role Phone No, Physician Primary Care Provider [phone] Reason for Visit * Reason Comments Covid Encounter Details Date Type Department Care Team (Latest Contact Info) Description 09/06/2023 2:30 PM CDT Clinical Support [facility] Medical Group [facility] Care at [address] [phone] Encounter for laboratory testing for COVID-19 virus (Primary Dx) Social History Tobacco Use Types Packs/Day Years Used Date Smoking Tobacco: Never Alcohol Use Standard Drinks/Week Comments Never 0 (1 standard drink = 0.6 oz pur e alcohol) [place] Depression Scale Answer Date Recorded [place] Depression Scale Total 20 08/29/2023 The thought [...] as of this encounter Miscellaneous Notes * Research Note - Saud Will MA - 09/06/2023 2:30 PM CDT [facility] Healthcare employee is here today for a COVID-19 swab only visit. The patient was evaluated by Occupation Health and meets swabbing criteria based on the assessed symptoms noted below, and collection of the COVID-[address] in the office. Discharge and follow up instructions given directly to the patient, and the appropriate Occupational Health department will manage follow up. Complete documentation is noted in the patient's chart, and the appropriate charge will be applied. Symptoms: Fever and sore throat and headache Ordering Provider: Dr. Miroslava Man documented in this encounter Plan of Treatment Not on file documented as of this encounter Visit Diagnoses Diagnosis Encounter for laboratory testing for COVID-19 virus- Primary documented in this encounter Additional Health Concerns Infection Onset Date Last Indicated Resolved Time COVID: Suspected 09/06/2023 09/06/2023 09/06/2023 6:38 PM CDT documented as of this encounter Care Teams Managing Consultant Clinical Professor Relationship Specialty Start Date End Date No, Physician PCP - General 08/06/22 documented as of this encounter
--- OUTSIDE RECORDS SUMMARY | 2024-03-15 14:54 | XMS_ITS | Encounter Summary ---
Author Organization [facility] Healthcare Address [address] [place] [address] Care Team Providers Care Debate Director Name Role Phone No, Physician Primary Care Provider [phone] Encounter Details Date Type Department Care Team (Late st Contact Info) Description 08/14/2023 Orders Only [facility] Medical Group Obstetrical Gynecology [address] [address] Coni Matta MD [address] [facility] [address] [place] [address] Social History Tobacco Use Types [...] on filedocumented in this encounter Care Teams Debate Director Relationship Specialty Start Date End Date No, Physician PCP - General 08/06/22 documented as of this encounter
--- OUTSIDE RECORDS SUMMARY | 2024-03-15 14:54 | XMS_ITS | Encounter Summary ---
Author Organization [facility] Healthcare Address [address] [place] [address] Care Team Providers Care Hot Mill Supervisor Name Role Phone No, Physician Primary Care Provider Encounter Details Date Type Department Care Team (Latest Contact Info) Description 07/29/2023 12:14 PM CDT - 07/29/2023 11:59 PM CDT Hospital Encounter [address] [address] Pre-employment health screening examination Discharge Disposition: Discharge to home or self [...] this encounter Medications at Time of Discharge acetaminophen (TYLENOL) 325 mg tablet Take 2 tablets (650 mg total) by mouth every 6 (six) hours as needed for pain 4 amoxicillin-clav ulanate (Augmentin) 875-125 mg per tablet Take 1 tablet by mouth 2 (two) times a day 20 tablet 02/18/2023 4 docusate sodium (COLACE) 100 mg capsuleIndicatio ns:constipation Take 1 capsule (100 mg total) by mouth 2 (two) times a day as needed for constipation 60 capsule 11 01/31/2023 4 ferrous sulfate 325 mg (65 mg of elemental iron) tabletIndication s:Iron Deficiency Anemia Take 1 tablet (325 mg total) by mouth daily with breakfast 4 ibuprofen (ADVIL,MOTRIN) 600 mg tablet Take 1 tablet (600 mg total) by mouth every 6 (six) hours as needed for pain, fever or headaches 40 tablet 02/21/2023 4 vit 72-znqd-emkyp-dh a 27mg iron- 800 mcg-250 mg capsule Take 1 tablet by mouth daily 4 documented as of this encounter Discharge Disposition Disposition Code Departure Means Destination Discharge to home or self care documented in this encounter Plan of Treatment Not on file documented as of this encounter Procedures Procedure Name Priority Date/Time Associated Diagnosis Comments T-SPOT.TB Routine 07/29/2023 12:14 PM CDT Pre-employment health screening examination documented in this encounter Results * T-SPOT.TB Blood (07/29/2023 12:14 PM CDT) [facility] T-SPOT.TB Negative SeeBelow Comment: Normal Value: Negative A negative test result does not exclude the possibility of exposure to or infection with Mycobacterium tuberculosis (M. tuberculosis). ??Patients with recent exposure to TB infected individuals exhibiting a negative T-SPOT.TB result should be considered for retesting within 6 weeks or if other relevant clinical symptoms indicate. ??Results from T-SPOT.TB testing must be used in conjunction with each individual's epidemiological history, current medical status, and results of other diagnostic evaluations. ??The T-SPOT.TB test is qualitative and results are reported as positive, borderline or negative, given that the test controls perform as expected. In line with the Centers for Disease Control and Prevention's 2010 recommendation to report quantitative measurements alongside the qualitative result, the laboratory provides spot counts for informational purposes only. ??The T-SPOT.TB test should not be interpreted as a quantitative test. T-SPOT.TB Panel A Spot Count 2 [facility] T-SPOT.TB Panel B Spot Count 0 [facility] T-SPOT.TB Negative Control Passed [facility] T-SPOT.TB Positive Control Passed [facility] Comment: Test Performed at: [facility], [facility] [address] [place] [address] ??[phone] ? MILADY FLORES,PHD Blood 07/29/2023 12:1 4 PM CDT 07/29/2023 1:48 PM CDT Narrative ALBERTO - 08/01/2023 12:18 PM CDT Patient is employed by/enrolled at:->[facility] Medical Group Elier Akesr MD LAB MICROBIOLOGY - GENERAL OR DERABLES Final Result ALBERTO [address] Department [place] [address] documented in this encounter Visit Diagnoses Diagnosis Pre-employment health screening examination Health examination of defined subpopulation documented in this encounter Care Teams Hot Mill Supervisor Relationship Specialty Start Date End Date No, Physician PCP - General 08/06/22 documented as of this encounter
--- OUTSIDE RECORDS SUMMARY | 2024-03-15 14:54 | XMS_ITS | Encounter Summary ---
Author Organization [facility] Healthcare Address [address] [place] [address] Care Team Providers Care Bar Pointer Name Role Phone No, Physician Primary Care Provider [phone] Encounter Details Date Type Department Care Team (Late st Contact Info) Description 07/29/2023 Orders Only [facility] Healthcare Occupatiuonal Health [address] [facility] Room [address] (Third Floor) [place], [place] [id number] Elier Akers MD [address] [place], [place] [id number] Pre-employment health screening examination (Primary Dx) Social [...] of this encounter Results * T-SPOT.TB Blood (07/29/2023 12:14 PM CDT) T-SPOT.TB Negative SeeBelow Comment: Normal Value: Negative [...] test. T-SPOT.TB Panel A Spot Count 2 [facility] T-SPOT.TB Panel B Spot Count 0 [facility] T-SPOT.TB Negative Control Passed [facility] T-SPOT.TB Positive Control Passed [facility] Comment: Test Performed at: [facility], [facility] [address] [place] [address] ??[phone] ? MILADY FLORES,PHD Blood 07/29/2023 12:1 4 PM CDT 07/29/2023 1:48 PM CDT Narrative [facility] - 08/01/2023 12:18 PM CDT Patient is employed by/enrolled at:->[facility] Medical Group lEier Akers MD LAB MICROBIOLOGY - GENERAL OR DERABLES Final Result Performing Organization Address City/State/ZIP Co mi Phone Number [facility] [address] [address] Department [place] [address] documented in this encounter Visit Diagnoses Diagnosis Pre-employment health screening examination- Primary Health examination of defined subpopulation Pre-employment health screening examination Health examination of defined subpopulation documented in this encounter Care Teams Bar Pointer Relationship Specialty Start Date End Date No, Physician PCP - General 08/06/22 documented as of this encounter
--- OUTSIDE RECORDS SUMMARY | 2024-03-15 14:54 | XMS_ITS | Encounter Summary ---
Author Organization [facility] Healthcare Address [address] [place] [address] Care Team Providers Care Document Manager Name Role Phone No, Physician Primary Care Provider Encounter Details Date Type Department Care Team (Latest Contact Info) Description 09/16/2023 1:21 PM CDT - 09/16/2023 11:59 PM CDT Hospital Encounter [facility] Building [address] [address] Vaginal burning Discharge Disposition: Discharge to home or self care Social History Tobacco Use Types Packs/Day Years Used Date Smoking Tobacco: Never Alcohol Use Standard Drinks/Week Comments Never 0 (1 standard drink = 0.6 oz pur e alcohol) [place] Depression Scale Answer Date Recorded [place] Depression Scale Total 20 08/29/2023 The thought [...] encounter Medications at Time of Discharge vit 76-wxdt-ncchn-dha 27mg iron- 800 mcg-250 mg capsule Take [...] Procedure Name Priority Date/Time Associated Diagnosis Comments VAGINITIS PANEL Routine 09/16/2023 12:47 PM CDT Vaginal burning documented in this encounter Results * (ABNORMAL) Vaginitis panel Vaginal (09/16/2023 12:47 PM CDT) Tammy DNA probe Detected(A) Not Detected Comment:Testing performed by : [address] [address] Gardnerella DNA probe Not Detected Not Detected ALBERTO Comment:Testing performed by : [address] [address] Trichomonas DNA probe Not Detected Not Detected ALBERTO DELUCA Comment: Interpretive Data Testing performed by [facility] via [employer] VP[employer] Microbial Identification Test, a DNA probe test for use in the detection and identification of Tammy species, Gardnerella vaginalis and Trichomonas vaginalis nucleic acid in vaginal fluid specimens from patients with symptoms of vaginitis/vaginosis. Negative results for these tests suggest the patient does not have candidiasis, bacterial vaginosis and/or trichomoniasis when consistent with clinical signs and symptoms. Current interpretive data was last revised on 2020. Testing performed by: [address] [address] Vaginal 09/16/2023 12:4 7 PM CDT 09/16/2023 5:12 PM CDT us Marnie Poe NP LAB MICROBIOLOGY - GENERAL O RDERABLES Final Result ALBERTO DELUCA [address] [facility] Department [place] [address] documented in this encounter Visit Diagnoses Diagnosis Vaginal burning Other specified symptom associated with female genital organs documented in this encounter Care Teams Document Manager Relationship Specialty Start Date End Date No, Physician PCP - General 08/06/22 documented as of this encounter
--- OUTSIDE RECORDS SUMMARY | 2024-03-15 14:54 | XMS_ITS | Encounter Summary ---
Author Organization [facility] Healthcare Address [address] [place] [address] Care Team Providers Care Cryptozoologist Name Role Phone No, Physician Primary Care Provider [phone] Encounter Details Date Type Department Care Team (Latest Contact Info) Description 08/14/2023 12:16 PM CDT - 08/14/2023 11:59 PM CDT Hospital Encounter [facility] Building [address] [address] Encounter for supervision of other normal in first trimester Discharge Disposition: Discharge to home or self [...] encounter Medications at Time of Discharge vit 92-wruc-bqhlr-dha 27mg iron- 800 mcg-250 mg capsule Take by mouth documented as of this encounter Discharge Disposition Disposition Code Departure Means Destination Discharge to home or self care documented in this encounter Plan of Treatment Not on file documented as of this encounter Procedures Procedure Name Priority Date/Time Associated Diagnosis Comments URINE CULTURE Routine 08/14/2023 10:16 AM CDT Encounter for supervision of other normal in first trimester documented in this encounter Results * (ABNORMAL) Urine culture Urine, clean voided (08/14/2023 10:16 AM CDT) Report Final Report: Growth indicative of contamination with periurethral marcos. Please submit a new specimen with special attention given to the collection process and to prompt transport to the laboratory. Includes the following: Less than 100,000 colonies/mL Streptococcus agalactiae (Group B Streptococci) * ??* ??* ??* ??* ??* ??* ??* ??* ??* ??* ??* ??* ??* ??* ??* ??* ??* ??* ??* Resistance to penicillin in Group B Streptococcus has not been reported. ??Group B Streptococci are universally susceptible to beta-lactam antibiotics and vancomycin. Routine susceptibility testing is not performed. In penicillin allergic patients, please contact the laboratory at [phone] to request susceptibility testing * ??* ??* ??* ??* ??* ??* ??* ??* ??* ??* ??* ??* ??* ??* ??* ??* ??* ??* ??* This laboratory routinely screens urine cultures for any amount of Group B Streptococcus in reproductive age women. ??Recovery of this isolate may be significant in women, however, the recovery of this organism in small quantities in non- women represents contamination with periurethral marcos.(.) Comment:Testing performed by : [facility], [address] [facility] [place]., [address] Organism GROWTH INDICATES CONTAM WITH PERIURETHRAL MARCOS. ALBERTO Organism STREPTOCOCCUS AGALACTIAE (GROUP B STREPTOCOCCI) ALBERTO DELUCA Urine, clean voided 08/14/2023 10:16 AM CDT 08/14/2023 7:18 PM CDT Narrative ALBERTO DELUCA - 08/18/2023 3:43 PM CDT Testing performed by [facility] Microbiology Laboratory ([phone]) us Coni Matta MD LAB MICROBIOLOGY - GENERAL ORD ERABLES Final Result ALBERTO [address] [facility] Department [place] [address] documented in this encounter Visit Diagnoses Diagnosis Encounter for supervision of other normal in first trimester documented in this encounter Care Teams Cryptozoologist Relationship Specialty Start Date End Date No, Physician PCP - General 08/06/22 documented as of this encounter
--- OUTSIDE RECORDS SUMMARY | 2024-03-15 14:54 | XMS_ITS | Encounter Summary ---
Author Organization [facility] Healthcare Address [address] [place] [address] Care Team Providers Care Java Software Name Role Phone No, Physician Primary Care Provider [phone] Encounter Details Date Type Department Care Team (Latest Contact Info) Description 07/23/2023 10:47 AM CDT - 07/23/2023 11:59 PM CDT Hospital Encounter [address] [address] Pre-employment health screening examination Discharge Disposition: Discharge [...] or headaches 40 tablet 02/21/2023 4 vit 70-etjj-cwmsg-dh a 27mg iron- 800 mcg-250 mg capsule Take 1 tablet by mouth daily 4 documented as of this encounter Discharge Disposition Disposition Code Departure Means Destination Discharge to home or self care documented in this encounter Plan of Treatment Not on file documented as of this encounter Procedures Procedure Name Priority Date/Time Associated Diagnosis Comments T-SPOT.TB Routine 07/23/2023 8:10 AM CDT Pre-employment health screening examination documented in this encounter Results * T-SPOT.TB Blood (07/23/2023 8:10 AM CDT) [facility] T-SPOT.TB BORDERLINE SeeBelow Comment: Normal Value: Negative [...] test. T-SPOT.TB Panel A Spot Count 6 [facility] T-SPOT.TB Panel B Spot Count 0 [facility] T-SPOT.TB Negative Control Passed [facility] T-SPOT.TB Positive Control Passed [facility] Comment: Test Performed at: [facility], [facility] [address] [place] [address] ??[phone] ? MILADY FLORES,PHD Blood 07/23/2023 8:10 AM CDT 07/23/2023 12:16 PM CDT Narrative [facility] - 07/26/2023 3:08 PM CDT Bill to [facility] [employer] - [address] Patient is employed by/enrolled at:->[facility] Medical Group us Elier Akers MD LAB MICROBIOLOGY - GENERAL OR DERABLES Final Result [facility] Department of [place] [address] documented in this encounter Visit Diagnoses Diagnosis Pre-employment health screening examination Health examination of defined subpopulation documented in this encounter Care Teams Java Software Relationship Specialty Start Date End Date No, Physician PCP - General 08/06/22 documented as of this encounter
--- OUTSIDE RECORDS SUMMARY | 2024-03-15 14:54 | XMS_ITS | Encounter Summary ---
Author Organization [facility] Healthcare Address [address] [place] [address] Care Team Providers Care Nuclear Auxiliary Operator Name Role Phone No, Physician Primary Care Provider Reason for Visit * Reason Comments Iron Deficiency Iron infusion Encounter Details Date Type Department Care Team (Latest Contact Info) Description 08/21/2023 4:40 PM CDT - 08/21/2023 6:06 PM CDT Hospital Encounter [facility] [address] [place] [address] Chip Esteves MD [address] [place] [address] [id number] Garry Blair MD [address] [place] [phone] Discharge Disposition: Discharge to home or self [...] Sign Reading Time Taken Comments Blood Pressure 103/67 08/21/2023 6:00 PM CDT Pulse 72 08/21/2023 6:00 PM CDT Temperature 36.6 ??C (97.9 ??F) 08/21/2023 6:00 PM CD T Respiratory Rate 18 08/21/2023 6:00 PM CDT Oxygen Saturation 100% 08/21/2023 6:00 PM CDT Inhaled Oxygen Concentration - - Weight - - Height - - Body Mass Index - - documented in this encounter Medications at Time of Discharge vit 88-dprt-zqwol-dha 27mg iron- 800 mcg-250 mg capsule Take [...] MAR Action Action Date Dose Rate Site iron sucrose (VENOFER) 200 mg in sodium chloride 0.9% 100 mL IVPB 200 mg, intravenous, at 330 mL/hr, Administer over 20 Minutes, Once, On Sat08/21/23 at 1730, For 1 dose New Bag 08/21/2023 5:33 PM CDT 200 mg 330 mL/hr documented in this encounter Active and Recently Administered Medications Times are shown in CDT. Scheduled Medication Order 08/19/2023 08/20/2023 08/21/2023 iron sucrose (VENOFER) 200 mg in sodium chloride 0.9% 100 mL IVPB (COMPLETED) 200 mg, intravenous, at 330 mL/hr, Administer over 20 Minutes, Once, On Sat08/21/23 at 1730, For 1 dose 1733 (New Bag - Prov ider: Alana Lopez RN) documented in this encounter Orders Medications Ordered That Arthur ht Not Have Been Administered Count Last Ordered Date First Ordered Date iron sucrose (VENOFER) 200 m g in sodium chloride 0.9% 100 mL IVPB 1 08/21/2023 documented in this encounter Care Teams Nuclear Auxiliary Operator Relationship Specialty Start Date End Date No, Physician PCP - General 08/06/22 documented as of this encounter
--- OUTSIDE RECORDS SUMMARY | 2024-03-15 14:54 | XMS_ITS | Encounter Summary ---
Author Organization [facility] Healthcare Address [address] [place] [address] Care Team Providers Care Timber Killer Name Role Phone No, Physician Primary Care Provider [phone] Encounter Details Date Type Department Care Team (Latest Contact Info) Description 09/06/2023 5:24 PM CDT - 09/06/2023 11:59 PM CDT Hospital Encounter [address] [address] Fever, unspecified fever cause; Mild headache; Sorethroat Discharge Disposition: Discharge to home or self care Social History Tobacco Use Types Packs/Day Years Used Date Smoking Tobacco: Never Alcohol Use Standard Drinks/Week Comments Never 0 (1 standard drink = 0.6 oz pur e alcohol) [place] Depression Scale Answer Date Recorded [place] Depression Scale Total 20 08/29/2023 The thought [...] encounter Medications at Time of Discharge vit 23-[id number]-[id number]-dha 27mg iron- 800 mcg-250 mg capsule Take [...] Name Priority Date/Time Associated Diagnosis Comments INFLUENZA A/B, RSV, AND COVID-19 PCR Routine 09/06/2023 2:21 PM CDT Fever, unspecified fever cause Mild headache Sorethroat documented in this encounter Results * Influenza A/B, RSV, and COVID-19 PCR Nasopharyngeal (09/06/2023 2:21 PM CDT) Pathologist [facility] COVID-19 RNA Negative Negative [facility] Influenza A RNA Negative Negative [facility] Influenza B RNA Negative Negative [facility] RSV RNA Negative Negative [facility] Comment: Interpretive data: Testing performed by [facility] ([phone]). This test is performed using the [employer] Xpert Xpress CoV-2/Flu/RSV plus assay. This is a multiplex, real-time reverse transcriptase PCR assay intended for the qualitative detection of nucleic acid from SARS-CoV-2, influenza A, influenza B, and respiratory syncytial virus. This assay has been cleared by the [place] Food and Drug administration. The performance characteristics have been verified by the [facility]. ??Results must be considered in the clinical context, and a negative result does not rule out infection. Interpretive Data last revised 2023 Nasopharyngeal 09/06/2023 2: 21 PM CDT 09/06/2023 5:50 PM CDT Narrative [facility] - 09/06/2023 6:37 PM CDT Bill to [facility] [place] - [address] Patient is employed by/enrolled at:->[facility] Is the patient experiencing any symptoms consistent with COVID (eg. Fever, cough, shortness of breath)?->Yes Reason for testing?->Symptomatic Is the Patient experiencing symptoms consistent with COVID?->Yes us Elier Akers MD LAB MICROBIOLOGY - GENERAL OR DERABLES Final Result Performing Organization Address City/State/[facility] Co de Phone Number ALBERTO [facility] Department [place] [address] [facility] documented in this encounter Visit Diagnoses Diagnosis Fever, unspecified fever cause Mild headache Sorethroat Acute pharyngitis documented in this encounter Additional Health Concerns Infection Onset Date Last Indicated Resolved Time COVID: Suspected 09/06/2023 09/06/2023 09/06/2023 6:38 PM CDT documented as of this encounter Care Teams Timber Killer Relationship Specialty Start Date End Date No, Physician PCP - General 08/06/22 documented as of this encounter
--- OUTSIDE RECORDS SUMMARY | 2024-03-15 14:54 | XMS_ITS | Encounter Summary ---
Author Organization [facility] Healthcare Address [address] [place] [address] Care Team Providers Care Lvn Name Role Phone No, Physician Primary Care Provider [phone] Encounter Details Date Type Department Care Team ([facility] st Contact Info) Description 09/16/2023 Orders Only [facility] Obstetrical Gynecology [address] [facility] [address] [place] [phone] Marnie Poe, OZIEL [address] [place] [address] Vaginal irritation (Primary Dx) Social History Tobacco Use Types Packs/Day Years Used Date Smoking Tobacco: Never Alcohol Use Standard Drinks/Week Comments Never 0 (1 standard drink = 0.6 oz pur e alcohol) [place] Depression Scale Answer Date Recorded [place] Depression Scale Total 20 08/29/2023 The thought [...] as of this encounter Visit Diagnoses Diagnosis Vaginal irritation- Primary Pruritus of genital organs documented in this encounter Care Teams Lvn Relationship Specialty Start Date End Date No, Physician PCP - General 08/06/22 documented as of this encounter
--- OUTSIDE RECORDS SUMMARY | 2024-03-15 14:54 | XMS_ITS | Encounter Summary ---
Author Organization [facility] Healthcare Address [address] [place] [address] Care Team Providers Care Voicer Name Role Phone No, Physician Primary Care Provider [phone] Encounter Details Date Type Department Care Team (Late st Contact Info) Description 08/12/2023 2:00 PM CDT [facility] Building [address] [address] Encounter for supervision of other normal in first trimester Social History Tobacco Use Types Packs/Day [...] Procedure Name Priority Date/Time Associated Diagnosis Comments DRUGS OF ABUSE SCREEN, URINE WITH REFLEX CONFIRMATION Routine 08/12/2023 2:21 PM CDT Encounter for supervision of other normal in first trimester EGFR Routine 08/12/2023 2:21 PM CDT Encounter for supervision of other normal in first trimester HIV 1/2 ANTIBODY PLUS P24 ANTIGEN Routine 08/12/2023 2:21 PM CDT Encounter for supervision of other normal in first trimester HEMOGLOBIN ANALYSIS BY ELECTROPHORESIS Routine 08/12/2023 2:21 PM CDT Encounter for supervision of other normal in first trimester HEPATITIS C ANTIBODY Routine 08/12/2023 2:21 PM CDT Encounter for supervision of other normal in first trimester PROTEIN / CREATININE RATIO, URINE, RANDOM Routine 08/12/2023 2:21 PM CDT Encounter for supervision of other normal in first trimester ABO/RH Routine 08/12/2023 2:21 PM CDT Encounter for supervision of other normal in first trimester RUBELLA IGG Routine 08/12/2023 2:21 PM CDT Encounter for supervision of other normal in first trimester RPR Routine 08/12/2023 2:21 PM CDT Encounter for supervision of other normal in first trimester HEPATITIS B SURFACE ANTIGEN Routine 08/12/2023 2:21 PM CDT Encounter for supervision of other normal in first trimester CBC WITHOUT DIFFERENTIAL Routine 08/12/2023 2:21 PM CDT Encounter for supervision of other normal in first trimester ANTIBODY SCREEN Routine 08/12/2023 2:21 PM CDT Encounter for supervision of other normal in first trimester TYPE AND SCREEN Routine 08/12/2023 2:21 PM CDT Encounter for supervision of other normal in first trimester URINE CULTURE Routine 08/12/2023 2:21 PM CDT Encounter for supervision of other normal in first trimester HEMOGLOBIN A1C Routine 08/12/2023 2:21 PM CDT Encounter for supervision of other normal in first trimester COMPREHENSIVE METABOLIC PANEL Routine 08/12/2023 2:21 PM CDT Encounter for supervision of other normal in first trimester documented in this encounter Results * eGFR (08/12/2023 2:21 PM CDT) eGFR >90 >=60 mL/min/1. 73 [...] Current interpretive data was last reviewed 2021. Testing performed by: [facility], [address] [place] [address]., [address] Blood 08/12/2023 2:21 PM CDT 08/12/2023 4:17 PM CDT us Coni Matta MD LAB BLOOD ORDERABLES Final Res ult [facility] [address] [facility] Department [place] [address] * Antibody screen (08/12/2023 2:21 PM CDT) Delilah, indirect, Gel Interpretation Negative ABSC Comment:Testing performed by : [address] [address] Blood 08/12/2023 2:21 PM CDT 08/12/2023 4:16 PM CDT Narrative ALBERTO - 08/12/2023 5:09 PM CDT Has the patient had Daratumumab or Isatuximab in the past 6 months?->Unknown Hx of or candidate for Bone Marrow/Stem Cell transplant?->No Coni Matta MD LAB BLOOD BANK TEST ORDERABLES Final Result Performing Organization Address [facility] Co de Phone Number [address] [place] [address] * ABO/Rh (08/12/2023 2:21 PM CDT) Pathologist [facility] ABO/Rh A Positive Comment:Testing performed by : [address] [address] Blood 08/12/2023 2:21 PM CDT 08/12/2023 4:[address] [facility] 08/12/2023 4:55 PM CDT Has the patient had Daratumumab or Isatuximab in the past 6 months?->Unknown Hx of or candidate for Bone Marrow/Stem Cell transplant?->No Coni Matta MD LAB BLOOD BANK TEST ORDERABLES Final Result Performing Organization Address [facility] Co de Phone Number [address] [place] [address] * (ABNORMAL) CBC without differential (08/12/2023 2:21 PM CDT) Pathologist [facility] WBC 7.6 3.8 - 9.9 K/cumm Comment:Testing performed by : [address] [address] Hgb 10.0(L) 11.9 - 15.5 g/dL ALBERTO Comment:Testing performed by : [address] [address] Hct 32.0(L) 35.6 - 45.5 % ALBERTO Comment:Testing performed by : [address] [address] Plt 234 150 - 400 K/cumm ALBERTO Comment:Testing performed by : [address] [address] MPV 12.3 9.1 - 12.3 fL ALBERTO Comment:Testing performed by : [address], [address] RBC 4.13 3.90 - 5.20 M/cumm ALBERTO Comment:Testing performed by : [address] [address] MCV 77.5(L) 81.3 - 96.4 fL ALBERTO Comment:Testing performed by : [address] [address] MCH 24.2(L) 27.1 - 33.3 pg ALBERTO Comment:Testing performed by : [address] [address] MCHC 31.3(L) 32.3 - 35.7 g/dL ALBERTO Comment:Testing performed by : [address] [address] RDW CV 14.4 11.1 - 14.9 % ALBERTO Comment:Testing performed by : [address] [address] RDW SD 40.1 35.7 - 48.1 fL ALBERTO Comment:Testing performed by : [address] [address] NRBC abs 0.00 0.00 - 0.01 K/cumm ALBERTO Comment:Testing performed by : [address] [address] Blood 08/12/2023 2:21 PM CDT 08/12/2023 4:17 PM CDT us Coni Matta MD LAB BLOOD ORDERABLES Final Res ult ALBERTO [address] [facility] Department [place] [address] * Drugs of Abuse Screen, Urine with Reflex Confirmation (08/12/2023 2:21 PM CDT) [facility] Amphetamine, ur Not Detected CutOff 500ng/mL Comment: Interpretive Data - Amphetamines: ??Samples containing greater than 500 ng/mL d-methamphetamine ??or other cross-reacting amphetamine compounds are reported as positive. ??Amphetamine immunoassays are subject to significant false positive rates due to cross-reactivity of non-amphetamine drugs. Confirmatory testing required for definitive results. Current Interpretive Data was last reviewed 2022. Testing performed by: [address] [address] Barbiturates, ur Not Detected CutOff 200ng/mL ALBERTO Comment: Interpretive Data - Barbiturates: ??Samples containing greater than 200 ng/mL secobarbital or other cross-reacting barbiturate compounds are reported as positive. ??False positive and false negative results are possible. Confirmatory testing required for definitive results. Current Interpretive Data was last reviewed 2022. Testing performed by: [facility], [address] [place] [address]., [address] Benzodiazepines, ur Not Detected CutOff 100ng/mL ALBERTO Comment: Interpretive Data - Benzodiazepines: ??Samples containing greater than 100 ng/mL nordiazepam or other cross-reacting compounds are reported as positive. False positive and false negative results are possible. Confirmatory testing required for definitive results. Current Interpretive Data was last reviewed 2022. Testing performed by: [address] [address] Cannabinoids, ur Not Detected CutOff 50 ng/mL ALBERTO Comment: Interpretive Data - Cannabinoids: ??Samples containing greater than 50 ng/mL delta-9 THC -COOH or other cross-reacting compounds are reported as positive. ??False positive and false negative results are possible. ??Confirmatory testing required for definitive results. Current Interpretive Data was last reviewed 2022. Testing performed by: [address] [address] Cocaine, ur Not Detected CutOff 150ng/mL [facility] Comment: Interpretive Data - Cocaine: ??Samples containing greater than 150 ng/mL benzoylecgonine or other cross-reacting compounds are reported as positive. False positive and false negative results are possible. Confirmatory testing required for definitive results. Current Interpretive Data was last reviewed 2022. Testing performed by: [address] [address] Fentanyl, Ur Not Detected Cutoff 1 ng/mL [facility] Comment: Interpretive Data - Fentanyl: ??Samples containing greater than 1 ng/mL fentanyl or other cross-reacting fentanyl compounds are reported as positive. ??False positive and false negative results are possible. Confirmatory testing required for definitive results. Current Interpretive Data was last reviewed 2022. Testing performed by: [address] [address] Methadone, ur Not Detected CutOff 300ng/mL [facility] Comment: Interpretive Data - Methadone: ??Samples containing greater than 300 ng/mL d,l-methadone or other cross-reacting compounds are reported as positive. ??False positive and false negative results are possible. Confirmatory testing required for definitive results. Current Interpretive Data was last reviewed 2022. Testing performed by: [address] [address] Opiates, ur Not Detected CutOff 300ng/mL [facility] Comment: Interpretive Data - Opiates: ??Samples containing greater than 300 ng/mL morphine or other cross-reacting compounds are reported as positive. ??False positive and false negative results are possible. Confirmatory testing required for definitive results. Current Interpretive Data was last reviewed 2022. Testing performed by: [address] [address] Oxycodone, ur Not Detected CutOff 100ng/mL [facility] Comment: Interpretive Data - Oxycodone: ??Samples containing greater than 100 ng/mL oxycodone or other cross-reacting compounds are reported as ??positive. ??False positive and false negative results are possible. Confirmatory testing required for definitive results. Current Interpretive Data was last reviewed 2022. Testing performed by: [address] [address] Phencyclidine, ur Not Detected CutOff 25 ng/mL ALBERTO Comment: Interpretive Data - Phencyclidine: ??Samples containing greater than 25 ng/mL phencyclidine or other cross-reacting compounds are reported as positive. ??False positive and false negative results are possible. Confirmatory testing required for definitive results. Current Interpretive Data was last reviewed 2022. Testing performed by: [address] [address] Urine Creatinine 26 mg/dL ALBERTO Comment: Interpretive Data Urine Creatinine: < 10 mg/dL is extremely dilute = or > 10 but < 20 mg/dL is dilute = or > 20 mg/dL is normal Current Interpretive Data was last revised on 2017. Testing performed by: [address] [address] Urine 08/12/2023 2:21 PM CDT 08/12/2023 4:22 PM CDT Narrative ALBERTO - 08/12/2023 5:24 PM CDT Drug of Abuse screening is performed by immunoassay for medical purposes only. ??This is not to be used for Pain Management purposes. ??If Detected, confirmation testing will be performed for Amphetamines, Cocaine, Fentanyl, Methadone, Opiates, Oxycodone or Phencyclidine. Coni Matta MD LAB URINE ORDERABLES Final Res ult [facility] [address] [facility] Department [place] [address] * Hemoglobin A1c (08/12/2023 2:21 PM CDT) [facility] Hgb A1C 5.6 4.0 - 5.6 % Comment:Testing performed by : [address] [address] Estimated Average Glucose 114 mg/dL ALBERTO Comment: The ADA recommends reporting an estimated Average Glucose (eAG) with all Hemoglobin A1c results using the equation derived from a study of 507 normal and diabetic adults. ??Minority populations were underrepresented and children were not included. ?? (Diabetes Care 31:2231-1916, 2008). ??The eAG is not equivalent to a fasting glucose. Testing performed by: [facility], [address] [place] [address]., [address] Blood 08/12/2023 2:21 PM CDT 08/12/2023 4:21 PM CDT us Coni Matta MD LAB BLOOD ORDERABLES Final Res ult ALBERTO [address] [facility] Department [place] [address] * (ABNORMAL) Hemoglobin analysis by electrophoresis (08/12/2023 2:21 PM CDT) RBC 4.17 3.90 - 5.20 M/cumm Comment:Testing performed by : [facility], [address] [facility], [address] Hgb 9.8(L) 11.9 - 15.5 g/dL ALBERTO DELUCA Comment:Testing performed by : [facility], [address] [place]., [address] MCV 77.9(L) 81.3 - 96.4 fL ALBERTO DELUCA Comment:Testing performed by : [facility], [address] [place]., [address] Rdw 14.7 11.1 - 14.9 % ALBERTO DELUCA Comment:Testing performed by : [facility], [address] [place]., [address] Hgb electrophores is, interp Normal Hemoglobin Pattern - For Age ALBERTO DELUCA Comment:Testing performed by : [facility], [address] [facility], [address] Hgb A 97.6 96.0 - 98.5 % ALBERTO Comment:Testing performed by : [facility], [address] [facility], [address] Hgb A2 2.4 1.5 - 3.2 % ALBERTO Comment:Testing performed by : [facility], [address] [place]., [address] Hgb F <0.4 0.0 - 0.9 % ALBERTO Comment:Testing performed by : [facility], [address] [place]., [address] Blood 08/12/2023 2:21 PM CDT 08/12/2023 7:19 PM CDT Coni Matta MD LAB BLOOD ORDERABLES Final Res ult Performing Organization Address City/[facility] Co de Phone Number [address] [place] [address] * Hepatitis B Surface Antigen Blood (08/12/2023 2:21 PM CDT) Pathologist [facility] HepBsAg Nonreactive Nonreactive Blood 08/12/2023 2:21 PM CDT 08/12/2023 7:29 PM CDT Coni Matta MD LAB MICROBIOLOGY - GENERAL ORD ERABLES Final Result Performing Organization Address [facility] de Phone Number [address] [email or web address] [address] * Hepatitis C antibody Blood (08/12/2023 2:21 PM CDT) [facility] Hep C Ab Nonreactive Nonreactive Comment: Antibodies [...] Edited Result - Final Performing Organization Address [facility] Co de Phone Number ALBERTO [address] [email or web address] [address] * HIV 1/2 Antibody plus p24 Antigen Blood (08/12/2023 2:21 PM CDT) HIV 1/2 ab + p24 ag [...] ORD ERABLES Final Result Performing Organization Address [facility] Co de Phone Number ALBERTO [address] [email or web address] [address] * RPR Blood (08/12/2023 2:21 PM CDT) RPR Nonreactive Nonreactive Comment:Testing performed by : [facility], [address] [place]., [address] Blood 08/12/2023 2:21 PM CDT 08/12/2023 7:20 PM CDT Coni Matta MD LAB MICROBIOLOGY - GENERAL ORD ERABLES Final Result Performing Organization Address City/[facility]/ZIP Co de Phone Number ALBERTO [address] [email or web address] [address] * Rubella IgG antibody Blood (08/12/2023 2:21 PM CDT) Rubella IgG Reactive Reactive Blood 08/12/2023 2:21 PM CDT 08/12/2023 7:29 PM CDT Coni Matta MD LAB MICROBIOLOGY - GENERAL ORD ERABLES Final Result Performing Organization Address [facility] Co de Phone Number [address] [place] [address] * Urine culture Urine, clean voided (08/12/2023 2:21 PM CDT) Report Final Report: Growth indicative of contamination with periurethral marcos. Please submit a new specimen with special attention given to the collection process and to prompt transport to the laboratory. Comment:Testing performed by : [facility], [address] [place]., [address] Organism GROWTH INDICATES CONTAM WITH PERIURETHRAL MARCOS. ALBERTO DELUCA Urine, clean voided 08/12/2023 2:21 PM CDT 08/12/2023 7:55 PM CDT Narrative ALBERTO - 08/14/2023 11:40 AM CDT Testing performed by [facility] ([phone]) Coni Matta MD LAB MICROBIOLOGY - GENERAL ORD ERABLES Final Result Performing Organization Address [facility] Co de Phone Number [facility] [address] [facility] [place] [address] * Protein / creatinine ratio, urine, random (08/12/2023 2:21 PM CDT) Protein, ur, quant <4.0 mg/dL Comment: Interpretive Data No reference range established. Current interpretive data was last revised 2018. Testing performed by: [facility], [address] [place] [address]., [address] Creatinine Ur 25.3 mg/dL ALBERTO Comment: Interpretive Data No reference range established. Current interpretive data was last revised 2018. Testing performed by: [address] [address] Protein/creatinin e ratio <158.1 0.0 - 180.0 mg/g CR ALBERTO Comment:Testing performed by : [address] [address] Urine 08/12/2023 2:21 PM CDT 08/12/2023 4:22 PM CDT us Coni Matta MD LAB URINE ORDERABLES Final Res ult ALBERTO [address] [facility] Department [place] [address] * (ABNORMAL) Comprehensive metabolic panel (08/12/2023 2:21 PM CDT) Sodium 138 135 - 145 mmol/L Comment:Testing performed by : [address] [address] Potassium, pl 3.9 3.3 - 4.9 mmol/L ALBERTO Comment:Testing performed by : [address] [address] Chloride 104 97 - 110 mmol/L ALBERTO Comment:Testing performed by : [address] [address] CO2 21(L) 22 - 32 mmol/L ALBERTO Comment:Testing performed by : [address] [address] Anion gap 13 2 - 15 mmol/L ALBERTO Comment:Testing performed by : [address] [address] BUN 6 6 - 25 mg/dL ALBERTO Comment:Testing performed by : [address] [address] Creatinine 0.40(L) 0.60 - 1.10 mg/dL ALBERTO Comment:Testing performed by : [address] [address] Glucose 90 70 - 199 mg/dL ALBERTO [...] was last revised 2022. Testing performed by: [address] [address] Calcium 9.4 8.5 - 10.3 mg/dL ALBERTO Comment:Testing performed by : [address] [address] Bilirubin, total 0.3 0.1 - 1.2 mg/dL ALBERTO Comment:Testing performed by : [address] [address] Protein, pl 7.4 6.5 - 8.5 g/dL ALBERTO Comment:Testing performed by : [address] [address] Albumin 4.0 3.5 - 5.0 g/dL [facility] Comment:Testing performed by : [address] [address] Alk phos 56 40 - 130 Units/L ALBERTO Comment:Testing performed by : [address] [address] ALT 11 7 - 45 Units/L ALBERTO Comment:Testing performed by : [address] [address] AST 14 10 - 45 Units/L [facility] Comment:Testing performed by : [address] [address] Blood 08/12/2023 2:21 PM CDT 08/12/2023 4:17 PM CDT us Coni Matta MD LAB BLOOD ORDERABLES Final Res ult ALBERTO DELUCA [address] [facility] Department [place] [address] documented in this encounter Visit Diagnoses Diagnosis Encounter for supervision of other normal in first trimester documented in this encounter Care Teams Voicer Relationship Specialty Start Date End Date No, Physician PCP - General 08/06/22 documented as of this encounter
--- OUTSIDE RECORDS SUMMARY | 2024-03-15 14:54 | XMS_ITS | Encounter Summary ---
Author Organization [facility] Healthcare Address [address] [place] [address] Care Team Providers Care Manager Of Sustainability Name Role Phone No, Physician Primary Care Provider [phone] Encounter Details Date Type Department Care Team (Late st Contact Info) Description 09/04/2023 10:[address] [facility] Building [address] [address] Supervision of other normal , antepartum; Light headed; Tachycardia Social History Tobacco Use Types Packs/Day Years Used Date Smoking Tobacco: Never Alcohol Use Standard Drinks/Week Comments Never 0 (1 standard drink = 0.6 oz pur e alcohol) [place] Depression Scale Answer Date Recorded [place] Depression Scale Total 20 08/29/2023 The thought [...] Priority Date/Time Associated Diagnosis Comments EGFR Routine 09/04/2023 11:04 AM CDT Supervision of other normal , antepartum Light headed Tachycardia THYROID FUNCTION CASCADE Routine 09/04/2023 11:04 AM CDT Supervision of other normal , antepartum Light headed Tachycardia IRON PROFILE W/ IBC Routine 09/04/2023 1 1:04 AM CDT Supervision of other normal , antepartum Light headed Tachycardia CBC WITHOUT DIFFERENTIAL Routine 09/04/2023 11:04 AM CDT Supervision of other normal , antepartum Light headed Tachycardia PHOSPHORUS Routine 09/04/2023 11:04 AM CDT Supervision of other normal , antepartum Light headed Tachycardia MAGNESIUM Routine 09/04/2023 11:04 AM CDT Supervision of other normal , antepartum Light headed Tachycardia COMPREHENSIVE METABOLIC PANEL Routine 09/04/2023 11:04 AM CDT Supervision of other normal , antepartum Light headed Tachycardia documented in this encounter Results * eGFR (09/04/2023 11:04 AM CDT) eGFR >90 >=60 mL/min/1. 73 m2 [...] was last reviewed 2021. Testing performed by: [address] [address] Blood 09/04/2023 11:0 4 AM CDT 09/04/2023 2:02 PM CDT us Judy Luna MD LAB BLOOD ORDERABLES Final R esult [facility] Department [place] [address] * (ABNORMAL) CBC without differential (09/04/2023 11:04 AM CDT) WBC 7.9 3.8 - 9.9 K/cumm Comment:Testing performed by : [address] [address] Hgb 11.6(L) 11.9 - 15.5 g/dL ALBERTO DELUCA Comment:Testing performed by : [address] [address] Hct 36.5 35.6 - 45.5 % ALBERTO DELUCA Comment:Testing performed by : [address] [address] Plt 225 150 - 400 K/cumm ALBERTO DELUCA Comment:Testing performed by : [address] [address] MPV 11.5 9.1 - 12.3 fL ALBERTO DELUCA Comment:Testing performed by : [address] [address] RBC 4.49 3.90 - 5.20 M/cumm ALBERTO DELUCA Comment:Testing performed by : [address] [address] MCV 81.3 81.3 - 96.4 fL ALBERTO DELUCA Comment:Testing performed by : [address] [address] MCH 25.8(L) 27.1 - 33.3 pg ALBERTO DELUCA Comment:Testing performed by : [address] [address] MCHC 31.8(L) 32.3 - 35.7 g/dL ALBERTO DELUCA Comment:Testing performed by : [address] [address] RDW CV 20.9(H) 11.1 - 14.9 % ALBERTO DELUCA Comment:Testing performed by : [address] [address] RDW SD 59.1(H) 35.7 - 48.1 fL ALBERTO DELUCA Comment:Testing performed by : [address] [address] NRBC abs 0.00 0.00 - 0.01 K/cumm ALBERTO Comment:Testing performed by : [address] [address] Blood 09/04/2023 11:0 4 AM CDT 09/04/2023 11:44 AM CDT Judy Luna MD LAB BLOOD ORDERABLES Final R esult ALBERTO [address] [facility] Department of Laboratories [place], [place] [id number] * (ABNORMAL) Comprehensive metabolic panel (09/04/2023 11:04 AM CDT) Sodium 136 135 - 145 mmol/L Comment:Testing performed by : [address] [address] Potassium, pl 3.8 3.3 - 4.9 mmol/L ALBERTO DELUCA Comment:Testing performed by : [address] [address] Chloride 102 97 - 110 mmol/L ALBERTO DELUCA Comment:Testing performed by : [address] [address] CO2 21(L) 22 - 32 mmol/L ALBERTO Comment:Testing performed by : [address] [address] Anion gap 13 2 - 15 mmol/L ALBERTO Comment:Testing performed by : [address] [address] BUN 5(L) 6 - 25 mg/dL ALBERTO Comment:Testing performed by : [address] [address] Creatinine 0.30(L) 0.60 - 1.10 mg/dL ALBERTO Comment:Testing performed by : [address] [address] Glucose 72 70 - 199 mg/dL ALBERTO [...] was last revised 2022. Testing performed by: [address] [address] Calcium 8.6 8.5 - 10.3 mg/dL ALBERTO Comment:Testing performed by : [address] [address] Bilirubin, total 0.3 0.1 - 1.2 mg/dL [facility] Comment:Testing performed by : [address] [address] Protein, pl 6.7 6.5 - 8.5 g/dL ALBERTO Comment:Testing performed by : [address] [address] Albumin 4.0 3.5 - 5.0 g/dL ALBERTO Comment:Testing performed by : [address] [address] Alk phos 48 40 - 130 Units/L ALBERTO DELUCA Comment:Testing performed by : [address] [address] ALT <5(L) 7 - 45 Units/L ALBERTO DELUCA Comment:Testing performed by : [address] [address] AST 12 10 - 45 Units/L ALBERTO Comment:Testing performed by : [address] [address] Blood 09/04/2023 11:0 4 AM CDT 09/04/2023 2:02 PM CDT Judy Luna MD LAB BLOOD ORDERABLES Final R esult Performing Organization Address City/[facility] Co de Phone Number ALBERTO [address] [place] [address] * (ABNORMAL) Iron profile w/ IBC (09/04/2023 11:04 AM CDT) Iron 64 35 - 145 mcg/dL Comment:Testing performed by : [address] [address] TIBC 419(H) 250 - 400 mcg/dL ALBERTO Comment:Testing performed by : [address] [address] Transferrin saturation 15(L) 20 - 50 % ALBERTO Comment:Testing performed by : [address] [address] Blood 09/04/2023 11:0 4 AM CDT 09/04/2023 2:02 PM CDT Judy Luna MD LAB BLOOD ORDERABLES Final R esult Performing Organization Address City/[facility] Co de Phone Number ALBERTO [address] [place] [address] * Thyroid Function [place] (09/04/2023 11:04 AM CDT) TSH 1.05 0.30 - 4.20 mcIUnit/mL Comment:Testing performed by : [address] [address] Blood 09/04/2023 11:0 4 AM CDT 09/04/2023 2:02 PM CDT Judy Luna MD LAB BLOOD ORDERABLES Final R esult Performing Organization Address City/[facility]/ZIP Co de Phone Number ALBERTO [address] [address] * Magnesium (09/04/2023 11:04 AM CDT) Magnesium 2.0 1.4 - 2.5 mg/dL Comment:Testing performed by : [address] [address] Blood 09/04/2023 11:0 4 AM CDT 09/04/2023 2:02 PM CDT Judy Luna MD LAB BLOOD ORDERABLES Final R esult Performing Organization Address [facility] Co de Phone Number LISA[address] [address] * Phosphorus (09/04/2023 11:04 AM CDT) Phosphorus, pl 3.0 2.3 - 4.5 mg/dL Comment:Testing performed by : [address] [address] Blood 09/04/2023 11:0 4 AM CDT 09/04/2023 2:02 PM CDT Judy Luna MD LAB BLOOD ORDERABLES Final R esult Performing Organization Address City/[facility] Co de Phone Number ALBERTO [address] [address] documented in this encounter Visit Diagnoses Diagnosis Supervision of other normal , antepartum Light headed Dizziness and giddiness Tachycardia Unspecified tachycardia documented in this encounter Care Teams Manager Of Sustainability Relationship Specialty Start Date End Date No, Physician PCP - General 08/06/22 documented as of this encounter
--- OUTSIDE RECORDS SUMMARY | 2024-03-15 14:54 | XMS_ITS | Encounter Summary ---
Author Organization [facility] Healthcare Address [address] [place] [address] Care Team Providers Care Camp Boss Name Role Phone No, Physician Primary Care Provider [phone] Encounter Details Date Type Department Care Team ([facility] st Contact Info) Description 08/29/2023 Telephone [facility] Medical Group Obstetrical Gynecology [address] [phone] Chip Esteves MD [address] [address] Social History Tobacco Use Types Packs/Day Years Used Date Smoking Tobacco: Never Alcohol Use Standard Drinks/Week Comments Never 0 (1 standard drink = 0.6 oz pur e alcohol) [place] Depression Scale Answer Date Recorded [place] Depression Scale Total 20 08/29/2023 The thought [...] on file documented as of this encounter Ordered Prescriptions Prescription Sig Dispense Quantity Refills Last Filled Start Date End Date sertraline (ZOLOFT) 25 mg tabletIndications: Anxiety and depression Take 1 tablet (25 mg total) by mouth daily 30 tablet 5 09/02/2023 10/30/2023 documented in this encounter Miscellaneous Notes * Telephone Encounter - Tree Farias MA - 08/30/2023 7:57 AM CDT She is ok to start medication * Telephone Encounter - Tree Farias MA - 08/29/2023 2:53 PM CDT OB 15w5d. C/o depression like symptoms EPDS: 20 GAD7: 21 Not on any meds Next OBV is the 19th Does not see a counselor. Hx of cutting Can chat on [employer] too if need be documented in this encounter Plan of Treatment Not on file documented as of this encounter Visit Diagnoses Diagnosis Anxiety and depression- Primary documented in this encounter Care Teams Camp Boss Relationship Specialty Start Date End Date No, Physician PCP - General 08/06/22 documented as of this encounter
--- OUTSIDE RECORDS SUMMARY | 2024-03-15 14:54 | XMS_ITS | Encounter Summary ---
Author Organization [facility] Healthcare Address [address] [place] [address] Care Team Providers Care Tower Technician Name Role Phone No, Physician Primary Care Provider [phone] Encounter Details Date Type Department Care Team ([facility] st Contact Info) Description 08/13/2023 Orders Only [facility] Medical Group Obstetrical Gynecology [address] [address] Coni Matta MD [address] [address] Anemia affecting in first trimester (Primary Dx) Social History Tobacco Use Types [...] Refills Last Filled Start Date End Date iron sucrose 200 mg in sodium chloride 0.9% 0.9% 100 mL IVPBIndications:on ce a week for 3 weeks. Infuse 200 mg into a venous catheter once for 1 dose 1 each 08/13/2023 4 documented in this encounter Plan of Treatment Not on file documented as of this encounter Visit Diagnoses Diagnosis Anemia affecting in first trimester- Primary documented in this encounter Care Teams Tower Technician Relationship Specialty Start Date End Date No, Physician PCP - General 08/06/22 documented as of this encounter
--- OUTSIDE RECORDS SUMMARY | 2024-03-15 14:54 | XMS_ITS | Encounter Summary ---
Author Organization [facility] Healthcare Address [address] [place] [address] Care Team Providers Care Network Field Engineer Name Role Phone No, Physician Primary Care Provider [phone] Encounter Details Date Type Department Care Team (Latest Contact Info) Description 08/16/2023 1:16 PM CDT - 08/16/2023 11:59 PM CDT Hospital Encounter [facility] Building [address] [address] Encounter for supervision of other normal in [...] encounter Medications at Time of Discharge vit 06-ajrm-zarfm-dha 27mg iron- 800 mcg-250 mg capsule Take by mouth documented as of this encounter Discharge Disposition Disposition Code Departure Means Destination Discharge to home or self care documented in this encounter Plan of Treatment Not on file documented as of this encounter Procedures Procedure Name Priority Date/Time Associated Diagnosis Comments N. GONORRHOEAE/C. TRACHOMATIS AMPLIFICATION Routine 08/16/2023 12:22 PM CDT Encounter for supervision of other normal in first trimester TRICHOMONAS VAGINALIS PCR Routine 08/16/2023 12:22 PM CDT Encounter for supervision of other normal in first trimester documented in this encounter Results * Trichomonas vaginalis PCR Urine (08/16/2023 12:22 PM CDT) Trichomonas DNA Not Detected [facility] Comment: Interpretive Data This assay detects Trichomonas vaginalis by nucleic acid amplification testing (NAAT). This assay has been cleared by the [place] Food and Drug administration. The performance characteristics of this test have been verified by the [facility] Molecular Infectious Disease laboratory. The performance of this test has not been evaluated in individuals less than 18 years of age. ?? Current Interpretive Data was last revised on 2023. Testing performed by: [facility], [address] [place] [address]., [address] Urine 08/16/2023 12:2 2 PM CDT 08/16/2023 8:22 PM CDT us Coni Matta MD LAB MICROBIOLOGY - GENERAL ORD ERABLES Final Result ALBERTO [address] [facility] Department [place] [address] [facility] * N. gonorrhoeae/C. trachomatis Amplification Urine (08/16/2023 12:22 PM CDT) C. trachomatis Not Detected [facility] Comment:Testing performed by : [address] [address] N. gonorrhoeae Not Detected ALBERTO DELUCA Comment: Interpretive Data This assay detects Chlamydia trachomatis and Neisseria gonorrhoeae by nucleic acid amplification testing (NAAT). This assay has been cleared by the [place] Food and Drug administration. The performance characteristics of this test have been verified by the [facility] Molecular Infectious Disease laboratory. The performance characteristics of this test have not been evaluated in individuals less than 14 years of age. Current Interpretive Data was last revised on 2023. Testing performed by: [facility], [address] [facility]., [address] Urine (None) 08/16/2023 12:2 2 PM CDT 08/16/2023 8:22 PM CDT us Coni Matta MD LAB MICROBIOLOGY - GENERAL ORD ERABLES Final Result ALBERTO [address] [facility] Department [place] [address] [facility] documented in this encounter Visit Diagnoses Diagnosis Encounter for supervision of other normal in first trimester documented in this encounter Care Teams Network Field Engineer Relationship Specialty Start Date End Date No, Physician PCP - General 08/06/22 documented as of this encounter
--- OUTSIDE RECORDS SUMMARY | 2024-03-15 14:54 | XMS_ITS | Encounter Summary ---
Author Organization [facility] Healthcare Address [address] [place] [address] Care Team Providers Care Pipe Line Walker Name Role Phone No, Physician Primary Care Provider [phone] Encounter Details Date Type Department Care Team (Latest Contact Info) Description 08/14/2023 4:42 PM CDT - 08/14/2023 6:30 PM CDT Hospital Encounter [facility] Assessment Center [address] [place], [place] [id number] Chip Esteves MD [facility] [address] Coni Matta MD [address] [place] [phone] Discharge Disposition: Discharge to home or self [...] Sign Reading Time Taken Comments Blood Pressure 110/65 08/14/2023 4:45 PM CDT Pulse 66 08/14/2023 4:45 PM CDT Temperature 36.5 ??C (97.7 ??F) 08/14/2023 4:45 PM CD T Respiratory Rate 18 08/14/2023 4:45 PM CDT Oxygen Saturation - - Inhaled Oxygen Concentration - - Weight - - Height - - Body Mass Index - - documented in this encounter Medications at Time of Discharge vit 68-cyoc-krrdo-dha 27mg iron- 800 mcg-250 mg capsule Take [...] mL/hr, Administer over 20 Minutes, Once, On Sat08/14/23 at 1730, For 1 dose New Bag 08/14/2023 5:48 PM CDT 200 mg 330 mL/hr documented in this encounter Active and Recently Administered Medications Times are shown in CDT. Scheduled Medication Order 08/12/2023 08/13/2023 08/14/2023 iron sucrose (VENOFER) 200 mg in sodium chloride 0.9% 100 mL IVPB (COMPLETED) 200 mg, intravenous, at 330 mL/hr, Administer over 20 Minutes, Once, On Sat08/14/23 at 1730, For 1 dose 1748 (New Bag - Prov ider: Hayley Recinos RN)1815 (Stopped - Provider: Hayley Recinos RN) documented in this encounter Orders Medications Ordered That Arthur ht Not Have Been Administered Count Last Ordered Date First Ordered Date iron sucrose (VENOFER) 200 m g in sodium chloride 0.9% 100 mL IVPB 1 08/14/2023 documented in this encounter Care Teams Pipe Line Walker Relationship Specialty Start Date End Date No, Physician PCP - General 08/06/22 documented as of this encounter
--- OUTSIDE RECORDS SUMMARY | 2024-03-15 14:54 | XMS_ITS | Encounter Summary ---
Author Organization [facility] Healthcare Address [address] [place] [address] Care Team Providers Care Tank Car Inspector Name Role Phone No, Physician Primary Care Provider [phone] Reason for Visit * Reason Comments Routine Visit Encounter Details Date Type Department Care Team ([facility] st Contact Info) Description 09/16/2023 12:45 PM CDT Office Visit [facility] Medical Group Obstetrical Gynecology [address] [facility] [address] [place] [phone] Marnie Poe, OZIEL [facility] [place] [address] Vaginal burning (Primary Dx) Social History Tobacco Use Types Packs/Day Years Used Date Smoking Tobacco: Never Alcohol Use Standard Drinks/Week Comments Never 0 (1 standard drink = 0.6 oz pur e alcohol) [place] Depression Scale Answer Date Recorded [place] Depression Scale Total 20 08/29/2023 The thought [...] Sign Reading Time Taken Comments Blood Pressure 104/60 09/16/2023 12:58 PM CDT Pulse - - Temperature - - Respiratory Rate - - Oxygen Saturation - - Inhaled Oxygen Concentration - - Weight 54.4 kg (120 lb) 09/16/2023 12:58 PM CDT Height 160 cm (5' 3 ) 09/16/2023 12:58 PM CDT Body Mass Index 21.26 09/16/2023 12:58 PM CDT documented in this encounter Progress Notes * Marnie Poe, COMPUTER PROGRAMMING SUPERVISOR - 09/16/2023 12:45 PM CDT OB RETURN VISIT Subjective: Mariam Lea is a 22 y.o. at 18w2d who [...] at anatomy sonogram.Currently, no other interventions indicated Marnie Poe NP documented in this encounter Plan of Treatment Not on file documented as of this encounter Results * (ABNORMAL) Vaginitis panel Vaginal (09/16/2023 12:47 PM CDT) Tammy DNA probe Detected(A) Not Detected Comment:Testing performed by : [address] [address] Gardnerella DNA probe Not Detected Not Detected ALBERTO Comment:Testing performed by : [address] [address] Trichomonas DNA probe Not Detected Not Detected ALBERTO Comment: Interpretive Data Testing performed by [facility] via Affirm VPIII Microbial Identification Test, a [...] last revised on 2020. Testing performed by: [address] [address] Vaginal 09/16/2023 12:4 7 PM CDT 09/16/2023 5:12 PM CDT us Marnie Poe NP LAB MICROBIOLOGY - GENERAL O RDERABLES Final Result [facility] [address] [facility] Department [place] [address] documented in this encounter Visit Diagnoses Diagnosis Vaginal burning- Primary Other specified symptom associated with female genital organs documented in this encounter Care Teams Tank Car Inspector Relationship Specialty Start Date End Date No, Physician PCP - General 08/06/22 documented as of this encounter
--- OUTSIDE RECORDS SUMMARY | 2024-03-15 14:54 | XMS_ITS | Encounter Summary ---
Author Organization [facility] Healthcare Address [address] [place] [address] Care Team Providers Care Coil Tier Name Role Phone No, Physician Primary Care Provider [phone] Encounter Details Date Type Department Care Team (Latest Contact Info) Description 08/28/2023 5:00 PM CDT - 08/28/2023 6:13 PM CDT Hospital Encounter [facility] Assessment Center [address] [place] [phone] Garry Blair MD [address] [place] [phone] Discharge Disposition: Discharge to home or self care Social History Tobacco Use Types Packs/Day Years Used Date Smoking Tobacco: Never Alcohol Use Standard Drinks/Week Comments Never 0 (1 standard drink = 0.6 oz pur e alcohol) [place] Depression Scale Answer Date Recorded [place] Depression Scale Total 20 08/29/2023 The thought [...] Sign Reading Time Taken Comments Blood Pressure 101/65 08/28/2023 5:17 PM CDT Pulse 79 08/28/2023 5:17 PM CDT Temperature - - Respiratory Rate 16 08/28/2023 5:17 PM CDT Oxygen Saturation 99% 08/28/2023 5:17 PM CDT Inhaled Oxygen Concentration - - Weight - - Height - - Body Mass Index - - documented in this encounter Medications at Time of Discharge vit 65-mihu-skbqt-dha 27mg iron- 800 mcg-250 mg capsule Take [...] mL/hr, Administer over 20 Minutes, Once, On Sat08/28/23 at 1745, For 1 dose New Bag 08/28/2023 5:45 PM CDT 200 mg 330 mL/hr documented in this encounter Active and Recently Administered Medications Times are shown in CDT. Scheduled Medication Order 08/26/2023 08/27/2023 08/28/2023 iron sucrose (VENOFER) 200 mg in sodium chloride 0.9% 100 mL IVPB (COMPLETED) 200 mg, intravenous, at 330 mL/hr, Administer over 20 Minutes, Once, On Sat08/28/23 at 1745, For 1 dose 1745 (New Bag - Prov ider: Ozzy Stinson RN)1806 (Stopped - Provider: Ozzy Stinson RN) documented in this encounter Orders Medications Ordered That Arthur ht Not Have Been Administered Count Last Ordered Date First Ordered Date iron sucrose (VENOFER) 200 m g in sodium chloride 0.9% 100 mL IVPB 1 08/28/2023 documented in this encounter Care Teams Coil Tier Relationship Specialty Start Date End Date No, Physician PCP - General 08/06/22 documented as of this encounter
--- OUTSIDE RECORDS SUMMARY | 2024-03-15 14:54 | XMS_ITS | Encounter Summary ---
Author Organization [facility] Healthcare Address [address] [place] [address] Care Team Providers Care Bail Attacher Name Role Phone No, Physician Primary Care Provider [phone] Reason for Visit * Reason Comments Initial Visit Encounter Details Date Type Department Care Team (Late st Contact Info) Description 08/12/2023 1:00 PM CDT Clinical Support [facility] Medical Group Obstetrical Gynecology [facility] [phone] Social History Tobacco Use Types Packs/Day Years [...] Time Taken Comments Blood Pressure 100/58 08/12/2023 1:00 PM CDT Pulse - - Temperature - - Respiratory Rate - - Oxygen Saturation - - Inhaled Oxygen Concentration - - Weight 54.4 kg (120 lb) 08/12/2023 1:00 PM CDT Height 160 cm (5' 3 ) 08/12/2023 1:00 PM CDT Body Mass Index 21.26 08/12/2023 1:00 PM CDT documented in this encounter Progress Notes * Kristen Grande RN - 08/12/2023 1:00 PM CDT Patient transfer from [place] only completed dating [place]. No US completed [...] with the pt and questions were answered. documented in this encounter Plan of Treatment Not on file documented as of this encounter Visit Diagnoses Not on filedocumented in this encounter Discontinued Medications Medication Sig Discontinue Reason Start Date End Da te acetaminophen (TYLENOL) 325 mg tablet Take 2 tablets (650 mg total) by mouth every 6 (six) hours as needed for pain Therapy completed 08/12/2023 amoxicillin-clavulana te (Augmentin) 875-125 mg per tablet Take 1 tablet by mouth 2 (two) times a day Therapy completed 02/18/2023 08/12/2023 docusate sodium (COLACE) 100 mg capsuleIndications:co nstipation Take 1 capsule (100 mg total) by mouth 2 (two) times a day as needed for constipation Therapy completed 01/31/2023 08/12/2023 ferrous sulfate 325 mg (65 mg of elemental iron) tabletIndications:Iro n Deficiency Anemia Take 1 tablet (325 mg total) by mouth daily with breakfast Therapy completed 08/12/2023 ibuprofen (ADVIL,MOTRIN) 600 mg tablet Take 1 tablet (600 mg total) by mouth every 6 (six) hours as needed for pain, fever or headaches Therapy completed 02/21/2023 08/12/2023 vit 37-oyeq-nifba-dha 27mg iron- 800 mcg-250 mg capsule Take 1 tablet by mouth daily Therapy completed 08/12/2023 documented as of this encounter Historical Medications * This list may reflect changes made after this encounter. vit 93-jbtt-mmwcf-dha 27mg iron- 800 mcg-250 mg capsule Take by mouth added in this encounter Care Teams Bail Attacher Relationship Specialty Start Date End Date No, Physician PCP - General 08/06/22 documented as of this encounter
--- OUTSIDE RECORDS SUMMARY | 2024-03-15 14:54 | XMS_ITS | Encounter Summary ---
Author Organization [facility] Healthcare Address [address] [place] [address] Care Team Providers Care Fish Smoker Name Role Phone No, Physician Primary Care Provider [phone] Reason for Visit * Reason Comments Routine Visit 17.4 wks Encounter Details Date Type Department Care Team (Latest Contact Info) Description 09/11/2023 11:15 AM CDT Routine [facility] Medical Group Obstetrical Gynecology [facility] [address] [phone] Marnie Poe, OZIEL [address] [place] [phone] Encounter for supervision of other normal in second trimester (Primary Dx) Social History Tobacco Use Types Packs/Day Years Used Date Smoking Tobacco: Never Alcohol Use Standard Drinks/Week Comments Never 0 (1 standard drink = 0.6 oz pur e alcohol) [place] Depression Scale Answer Date Recorded [place] Depression Scale Total 20 08/29/2023 The thought [...] Sign Reading Time Taken Comments Blood Pressure 94/58 09/11/2023 11:21 AM CDT Pulse - - Temperature - - Respiratory Rate - - Oxygen Saturation - - Inhaled Oxygen Concentration - - Weight 55.7 kg (122 lb 12.8 oz) 024 11:21 AM CDT Height 160 cm (5' 3 ) 09/11/2023 11:21 AM CDT Body Mass Index 21.75 09/11/2023 11:21 AM CDT documented in this encounter Progress Notes * Marnie Poe, OZIEL - 09/11/2023 11:15 AM CDT OB RETURN VISIT Subjective: Mariam Lea is a 22 y.o. at 17w4d who [...] Esteves MD at 09/12/2023 8:16 PM CDT documented in this encounter Plan of Treatment Not on file documented as of this encounter Visit Diagnoses Diagnosis Encounter for supervision of other normal in second trimester- Primary documented in this encounter Care Teams Fish Smoker Relationship Specialty Start Date End Date No, Physician PCP - General 08/06/22 documented as of this encounter
--- OUTSIDE RECORDS SUMMARY | 2024-03-15 14:54 | XMS_ITS | Encounter Summary ---
Author Organization [facility] Healthcare Address [address] [place] [address] Care Team Providers Care Medical Records Receptionist Name Role Phone No, Physician Primary Care Provider [phone] Encounter Details Date Type Department Care Team (Late st Contact Info) Description 04/16/2023 Telephone [facility] Medical Group Obstetrical Gynecology [address] [place] [address] [place] [phone] Haven Fox LPN Social History Tobacco Use Types Packs/Day Years [...] encounter Miscellaneous Notes * Telephone Encounter - Haven Fox LPN - 04/16/2023 4:41 PM CST Pt aware to reach out to PCP. TRICAL INSPECTOR * Telephone Encounter - Judy Luna MD - 04/16/2023 4:33 PM CST Also, she is a [facility] patient... TRICAL INSPECTOR * Telephone Encounter - Judy Luna MD - 04/16/2023 4:32 PM CST If she is > 6 weeks , she needs to reach out to her PCP. Has she tried athlete's foot cream? Benadryl? Hydrocortisone? TRICAL INSPECTOR * Telephone Encounter - Haven Fox LPN - 04/16/2023 3:56 PM CST Pt delivered 02/13/2023. Itching on the soles of feet started a week ago. She feels like she has toscratch her feet off. Labs and/or meds? TRICAL INSPECTOR documented in this encounter Plan of Treatment Not on file documented as of this encounter Visit Diagnoses Not on filedocumented in this encounter Care Teams Medical Records Receptionist Relationship Specialty Start Date End Date No, Physician PCP - General 08/06/22 documented as of this encounter
--- OUTSIDE RECORDS SUMMARY | 2024-03-15 14:55 | XMS_ITS | Encounter Summary ---
Author Organization [facility] Healthcare Address [address] [place] [address] Care Team Providers Care Plaster Lather Name Role Phone No, Physician Primary Care Provider [phone] Reason for Visit * Reason Comments Cough Encounter Details Date Type Department Care Team ([facility] Contact Info) Description 02/10/2023 12:53 AM DREDGE PIPE INSTALLER - 02/10/2023 4:23 AM [facility] Emergency [facility] Emergency Department [address] [place] [address] Keir Buckley DO [address] [address] Upper respiratory tract infection, unspecified type (Primary Dx); Cough, unspecified type; SOB (shortness of breath) Discharge Disposition: Discharge to home or self [...] feel afraid or unsafe? Denies 02/10/2023 Comments Yes Sex and Gender Information Value Date Recorded Sex Assigned at Not on file Legal Sex Female 12:21 PM CDT Gender Identity Not on file Sexual Orientation Not on file documented as of this encounter Last Filed Vital Signs Vital Sign Reading Time Taken Comments Blood Pressure 122/86 02/10/2023 3:30 AM DREDGE PIPE INSTALLER Pulse 113 02/10/2023 3:30 AM DREDGE PIPE INSTALLER Temperature 36.8 ??C (98.2 ??F) 02/10/2023 12:[address] Respiratory Rate 16 02/10/2023 2:30 AM DREDGE PIPE INSTALLER Oxygen Saturation 97% 02/10/2023 3:30 AM DREDGE PIPE INSTALLER Inhaled Oxygen Concentration - - Weight 64.2 kg (141 lb 8.6 oz) 02/10/2023 12:04 AM DREDGE PIPE INSTALLER Height 160 cm (5' 3 ) 02/10/2023 12:04 AM DREDGE PIPE INSTALLER Body Mass Index 25.07 02/10/2023 12:04 AM DREDGE PIPE INSTALLER documented in this encounter Discharge Instructions * Discharge Instructions* Keri Buckley DO - 02/10/2023 4:14 AM DREDGE PIPE INSTALLER Please follow-up with your primary care physician in the next 2-3 days for further evaluation. You have been prescribed a steroid and 2 inhalers. Please take as directed. Return immediately for any new symptoms, worsening of symptoms, or persistent symptoms. You MUST follow up for further evaluation of all incidental abnormal radiographic and laboratory findings, Have your physician obtain records from this visit and address all the incidental abnormal findings. This may include final results of lab testing, cultures, final x-ray reports which may not have been available during the time of the visit. GE PIPE INSTALLER GE PIPE INSTALLER * Attachments The following attachments cannot be sent through Care Everywhere. * Cold Symptoms (AfterCare(R) Instructions(ER/ED)) (Vietnamese) * Acute Cough (AfterCare(R) Instructions(ER/ED)) (Vietnamese) * Asthma (AfterCare(R) Instructions(ER/ED)) (Vietnamese) documented in this encounter Medications at Time of Discharge acetaminophen (TYLENOL) 325 mg tablet Take 2 tablets (650 mg total) by mouth every 6 (six) hours as needed for pain albuterol HFA (PROVENTIL HFA,VENTOLIN HFA,PROAIR HFA) 90 mcg/actuation inhaler Inhale 2 puffs every 4 (four) hours as needed for wheezing 1 each 1 02/10/2023 3 docusate sodium (COLACE) 100 mg capsuleIndicatio ns:constipation Take 1 capsule (100 mg total) by mouth 2 (two) times a day as needed for constipation 60 capsule 11 01/31/2023 4 ferrous sulfate 325 mg (65 mg of elemental iron) tabletIndication s:Iron Deficiency Anemia Take 1 tablet (325 mg total) by mouth daily with breakfast 4 fluticasone propionate (FLOVENT HFA) 220 mcg/actuation inhaler Inhale 1 puff 2 (two) times a day Rinse mouth with water after use. Do not swallow. 1 each 02/10/2023 3 methylPREDNISolo ne (MEDROL DOSEPACK) 4 mg Dosepack Take as directed on package 1 packet 02/10/2023 3 metoclopramide (REGLAN) 10 mg tablet Take 1 tablet (10 mg total) by mouth every 6 (six) hours 30 tablet 08/12/2022 3 ondansetron (ZOFRAN) 4 mg tablet Take 1 tablet (4 mg total) by mouth every 6 (six) hours 12 tablet 2 01/15/2023 3 vit [id number]-dh a 27mg iron- 800 mcg-250 mg capsule Take 1 tablet by mouth daily 4 documented as of this encounter Ordered Prescriptions Prescription Sig Dispense Quantity Refills Last Filled Start Date End Date fluticasone propionate (FLOVENT HFA) 220 mcg/actuation inhaler Inhale 1 puff 2 (two) times a day Rinse mouth with water after use. Do not swallow. 1 each 02/10/2023 3 albuterol HFA (PROVENTIL HFA,VENTOLIN HFA,PROAIR HFA) 90 mcg/actuation inhaler Inhale 2 puffs every 4 (four) hours as needed for wheezing 1 each 1 02/10/2023 3 methylPREDNISolone (MEDROL DOSEPACK) 4 mg Dosepack Take as directed on package 1 packet 02/10/2023 3 documented in this encounter Discharge Disposition Disposition Code Departure Means Destination Comment s Discharge to home or self care documented in this encounter Progress Notes * Jayleen Rose RN - 02/10/2023 1:18 AM CST OB RN in room with pt monitoring GE PIPE INSTALLER documented in this encounter ED Notes * Keri Buckley - 02/10/2023 4:19 AM CST HPI Chief Complaint Patient presents with Cough HPI Productive cough x 2 months with increased sinus congestion with headache x 3 day. Lungs clear. Pt is 38 weeks .Last tylenol x 2300 андрей Lea is a 22 y.o. female presenting to the ED c/o productive cough. States that it started2 months ago. States that it did get better, but then it got worse again. She is coughing white clear mucous. However, she states that she is using over the counter medications and it is not helping.She does have hx of asthma. She is out of her inhalers. She does not have a PCP, but is trying to establish care. She is 38 weeks . . Patient History: Past Medical History: Diagnosis Date Asthma Breast tumor Past Surgical History: Procedure Laterality Date BREAST BIOPSY Right TONSILECTOMY, ADENOIDECTOMY, BILATERAL MYRINGOTOMY AND TUBES No family history on file. Social History Tobacco Use Smoking status: Never Smokeless tobacco: Not on file Substance and Sexual Activity Drug use: Never Sexual activity: Yes Partners: Male Alcohol Use: Not on file No current facility-administered medications for this encounter. Current Outpatient Medications: acetaminophen (TYLENOL) 325 mg tablet albuterol HFA (PROVENTIL HFA,VENTOLIN HFA,PROAIR HFA) 90 mcg/actuation inhaler docusate sodium (COLACE) 100 mg capsule ferrous sulfate 325 mg (65 mg of elemental iron) tablet fluticasone propionate (FLOVENT HFA) 220 mcg/actuation inhaler methylPREDNISolone (MEDROL DOSEPACK) 4 mg Dosepack metoclopramide (REGLAN) 10 mg tablet ondansetron (ZOFRAN) 4 mg tablet vit [id number]-dha 27mg iron- 800 mcg-250 mg capsule Review of Systems Review of Systems All systems reviewed and are neg or non contributory for this patients presentation today other than as stated in the HPI . Physical Exam ED Triage Vitals [02/10/23 0004] Temp Pulse Resp BP SpO2 36.8 ??C (98.2 ??F) 103 20 133/89 98 % Temp src Heart Rate Source Patient Position BP Location FiO2 (%) Oral -- -- -- -- Height Height Method Weight Weight Method 1.6 m (5' 3 ) Stated 64.2 kg (141 lb 8.6 oz) Standing scale Patient Vitals for the past 24 hrs: BP Temp Temp src Pulse Resp SpO2 Height Weight 02/10/23 0330 122/86 -- -- 113 -- 97 % -- -- 02/10/23 0300 121/77 -- -- 120 -- 98 % -- -- 02/10/23 0230 101/66 -- -- 101 16 96 % -- -- 02/10/23 0200 109/73 -- -- 98 18 97 % -- -- 02/10/23 0130 114/77 -- -- 98 15 97 % -- -- 02/10/23 0100 116/85 -- -- 108 16 98 % -- -- 02/10/23 0004 133/89 36.8 ??C (98.2 ??F) Oral 103 20 98 % 160 cm (5' 3 ) 64.2 kg (141 lb 8.6 oz) Physical Exam Vitals and nursing note reviewed. GENERAL: Patient is conscious alert and oriented x3 and in no acute distress. HEENT: Head is normocephalic and atraumatic. Extraocular muscles are intact. NECK: Trachea is midline. No meningeal signs. LUNGS: Lungs are clear to auscultation bilaterally. There is good respiratory effort. HEART: regular rate and rhythm, no murmur. There is no gallop or rub. No pitting edema. ABDOMEN: Soft and nontender to palpation. MUSCULOSKELETAL: Moves all extremities x4. There is no obvious deformity. Radial pulses are intact.No spinal process tenderness. SKIN: Exposed skin shows no obvious erythema. Skin is warm and dry. There is no rash. NEUROLOGIC: Patient is conscious, alert and oriented x3. No focal neurologic defect is noted. PSYCH: Normal affect. Procedures MDM Labs Reviewed INFLUENZA A/B, RSV, AND COVID-19 PCR Result Value COVID-19 RNA Negative Influenza A RNA Negative Influenza B RNA Negative RSV RNA Negative Narrative: Is the Patient experiencing symptoms consistent with COVID?->Yes Date of Symptom Onset->02/03/23 Reason for testing?->Symptomatic XR Chest 1 View EXAM DESCRIPTION: XR CHEST 1 VIEW REASON FOR STUDY: chest pain Productive cough x 2 months with increased sinus congestion with headache x 3 day. Lungs clear. Pt is 38 weeks .Last tylenol x 2300 tonight TECHNIQUE: Single radiographic view of the chest acquired. COMPARISON: None. FINDINGS: LUNGS/PLEURA: No focal consolidation or pneumothorax. No pleural effusion. HEART/MEDIASTINUM: Cardiac silhouette is normal. Remaining mediastinal silhouettes are unremarkable. HARDWARE/LINES/TUBES: None. BONES: No acute findings. IMPRESSION: No acute cardiopulmonary abnormality. THIS IS AN ELECTRONICALLY VERIFIED FINAL REPORT 02/10/2023 2:05 AM - Electronically signed by Sol Lugo M.D. SN: SN Report ID: [id number] Reading Location: [id number] BP 122/86 Pulse 113 Temp 36.8 ??C (98.2 ??F) (Oral) Resp 16 Ht 160 cm (5' 3 ) Wt 64.2 kg (141 lb 8.6 oz) LMP 05/17/2022 (Exact Date) SpO2 97% BMI 25.07 kg/m?? Medical Decision Making Clinical problems/dx: Mariam Lea is a 22 y.o. female who presents with SOB, cough. ED Course -Patient seen and evaluated, available studies reviewed -Prior available records reviewed, triage notes reviewed. -Discussed results with patient. She will need to f/u with PCP. Will rx inhaler and steroids. Methylprednisolone has less transfer of steroid to the fetus--8-10x less according to uptodate. . This examination was transcribed using the [employer] voice recognition system without human liberal arts teacher. In an effort to expedite patient care, this report has not been adjusted for typographical, grammatical, and syntax by a trained medical referral coordinator. Clinical Impression: Upper respiratory tract infection, unspecified type Cough, unspecified type SOB (shortness of breath) Keri Buckley DO 02/21/23 2320 GE PIPE INSTALLER * Jayleen Rose RN - 02/10/2023 3:12 AM CST Pt cleared by OB Provider Dr. Reich. Jayleen Rose RN 02/10/23 0312 GE PIPE INSTALLER * Jayleen Rose RN - 02/10/2023 2:02 AM CST Per OB RN stated pt had reactive NST, and will be having the OB physician contact Dr. Buckley. After review. Jayleen Rose RN 02/10/23 0203 GE PIPE INSTALLER * Jayleen Rose RN - 02/10/2023 1:26 AM CST Per OB RN, pt will remain on monitor for about an hour. Jayleen Rose RN 02/10/23 0126 GE PIPE INSTALLER * Jayleen Rose RN - 02/10/2023 1:02 AM CST Pt states that she has had cough and sinus congestion for 2 months. States that she has also had headache for the past 3 days pt also states that she isnt sure if the baby is trying to engage/push down or if its from coughing OB contacted to monitor pt. Jayleen Rose RN 02/10/23 0104 GE PIPE INSTALLER * Gosia Evangelista RN - 02/10/2023 12:02 AM CST Productive cough x 2 months with increased sinus congestion with headache x 3 day. Lungs clear. Pt is 38 weeks .Last tylenol x 2300 tonight GE PIPE INSTALLER GE PIPE INSTALLER documented in this encounter Plan of Treatment Not on file documented as of this encounter Procedures Procedure Name Priority Date/Time Associated Diagnosis Comments XR CHEST 1 VIEW ED 02/10/2023 1:53 AM DREDGE PIPE INSTALLER INFLUENZA A/B, RSV, AND COVID-19 PCR Routine 02/10/2023 12:08 AM DREDGE PIPE INSTALLER documented in this encounter Results * XR Chest 1 View (02/10/2023 1:53 AM DREDGE PIPE INSTALLER) Anatomical Region Laterality Modality Body, Chest N/A Computed Radiogr aphy 02/10/2023 2:04 AM DREDGE PIPE INSTALLER Narrative 02/10/2023 2:05 AM DREDGE PIPE INSTALLER EXAM DESCRIPTION: ?? XR CHEST 1 VIEW REASON FOR STUDY: ?? chest pain ?? Productive cough x 2 months with increased sinus congestion with headache x 3 day. Lungs clear. Pt is 38 weeks .Last tylenol x 2300 tonight ? TECHNIQUE: ?? Single ??radiographic view of the chest acquired. COMPARISON: ?? None. FINDINGS: LUNGS/PLEURA: ?? No focal consolidation or pneumothorax. No pleural effusion. HEART/MEDIASTINUM: Cardiac silhouette is ??normal. ??Remaining mediastinal silhouettes are unremarkable. HARDWARE/LINES/TUBES: ?? None. BONES: ?? No acute findings. IMPRESSION: ?? No acute cardiopulmonary abnormality. THIS IS AN ELECTRONICALLY VERIFIED FINAL REPORT 02/10/2023 2:05 AM - Electronically signed by ??Sol Lugo M.D. SN: SN D: ??02/10/2023 2:05 AM T: ??02/10/2023 2:05 AM Report ID: [id number] Reading Location: ??[id number] Procedure Note Sol Lugo MD - 02/10/2023 EXAM DESCRIPTION: XR CHEST 1 VIEW REASON FOR STUDY: chest pain Productive cough x 2 months with increased sinus congestion with headachex 3 day. Lungs clear. Pt is 38 weeks .Last tylenol x 2300 tonight TECHNIQUE: Single radiographic view of the chest acquired. COMPARISON: None. FINDINGS: LUNGS/PLEURA: No focal consolidation or pneumothorax. Nopleural effusion. HEART/MEDIASTINUM: Cardiac silhouette is normal. Remaining mediastinal silhouettes are unremarkable. HARDWARE/LINES/TUBES: None. BONES: No acute findings. IMPRESSION: No acute cardiopulmonary abnormality. THIS IS AN ELECTRONICALLY VERIFIED FINAL REPORT 02/10/2023 2:05 AM - Electronically signed by Sol Lugo M.D. SN: SN Report ID: [id number] Reading Location: [place] [address] Keri Ina DO IMG XR PROCEDURES Final Result * Influenza A/B, RSV, and COVID-19 PCR Nasopharyngeal (02/10/2023 12:08 AM DREDGE PIPE INSTALLER) COVID-19 RNA Negative Negative [facility] Comment:Testing performed by : [address] [id number] Influenza A RNA Negative Negative [facility] Comment:Testing performed by : [address] [address] Influenza B RNA Negative Negative [facility] Comment:Testing performed by : [address] [id number] RSV RNA Negative Negative [facility] Comment: Interpretive data: This test is performed using the [employer] Xpert Xpress CoV-2/Flu/RSV plus assay. This is a multiplex, real-time reverse transcriptase PCR assay intended for the qualitative detection of nucleic acid from SARS-CoV-2, influenza A, influenza B, and respiratory syncytial virus. This assay has been reviewed by the FDA for Emergency Use Authorization (EUA). The performance characteristics have been verified by the performing laboratory. Results must be considered in the clinical context, and a negative result does not rule out infection. Interpretive Data last revised 2021. Testing performed by: [address] [address] Nasopharyngeal 02/10/2023 12 :08 AM DREDGE PIPE INSTALLER 02/10/2023 12:14 AM DREDGE PIPE INSTALLER Narrative ALBERT[facility] - 02/10/2023 12:57 AM DREDGE PIPE INSTALLER Is the Patient experiencing symptoms consistent with COVID?->Yes Date of Symptom Onset->02/03/23 Reason for testing?->Symptomatic Keri Buckley DO LAB MICROBIOLOGY - GENERAL ORDJuan DELGADO Final Result [facility] [address] [facility] Department [place] [address] documented in this encounter Visit Diagnoses Diagnosis Upper respiratory tract infection, unspecified type- Primary Cough, unspecified type SOB (shortness of breath) Shortness of breath documented in this encounter Administered Medications Inactive Administered Medications - up to 3 most recent administrations Medication Order MAR Action Action Date Dose Rate Site cetirizine (ZyrTEC) tablet 10 mg 10 mg, oral, Once, On 02/10/23 at 0152, For 1 dose Given 02/10/2023 2:21 AM DREDGE PIPE INSTALLER 10 mg ipratropium-albuteroL (DUO-NEB) 0.5-2.5 mg/3 mL nebulizer solution 3 mL 3 mL, nebulization, Once, On 02/10/23 at 0152, For 1 dose, Indications: Chronic Obstructive Pulmonary Disease with BronchospasmsIndications:Chronic Obstructive Pulmonary Disease with Bronchospasms Given 02/10/2023 2:34 AM DREDGE PIPE INSTALLER 3 mL documented in this encounter Active and Recently Administered Medications Times are shown in DREDGE PIPE INSTALLER. Scheduled Medication Order 02/08/2023 02/09/2023 02/10/2023 cetirizine (ZyrTEC) tablet 10 mg (COMPLETED) 10 mg, oral, Once, On 02/10/23 at 0152, For 1 dose 0221 (Given - Provid er: Jayleen Rose RN) ipratropium-albuteroL (DUO-NEB) 0.5-2.5 mg/3 mL nebulizer solution 3 mL (COMPLETED) 3 mL, nebulization, Once, On 02/10/23 at 0152, For 1 dose, Indications: Chronic Obstructive Pulmonary Disease with Bronchospasms 0234 (Given - Provid er: Bee Peres, [facility]) documented in this encounter Additional Health Concerns Infection Onset Date Last Indicated Resolved Time COVID: Suspected 02/10/2023 02/10/2023 02/10/2023 12:58 AM DREDGE PIPE INSTALLER documented as of this encounter Care Teams Plaster Lather Relationship Specialty Start Date End Date No, Physician PCP - General 08/06/22 documented as of this encounter
--- OUTSIDE RECORDS SUMMARY | 2024-03-15 14:55 | XMS_ITS | Encounter Summary ---
Author Organization [facility] Healthcare Address [address] [place] [address] Care Team Providers Care Oracle Soa Developer Name Role Phone No, Physician Primary Care Provider Reason for Visit * Reason Comments Hypertension Encounter Details Date Type Department Care Team (Late st Contact Info) Description 01/31/2023 8:36 PM GENERAL MEDICAL PRACTITIONER - 01/31/2023 11:07 PM GENERAL MEDICAL PRACTITIONER Emergency [facility] OB Emergency Department [address] [place] [address] Coni Perry DO [address] [address] 36 weeks gestation of (Primary Dx); Dizziness; Anemia in , third trimester Discharge Disposition: Discharge to home or [...] Sign Reading Time Taken Comments Blood Pressure 117/73 01/31/2023 11:00 PM GENERAL MEDICAL PRACTITIONER Pulse 90 01/31/2023 11:00 PM GENERAL MEDICAL PRACTITIONER Temperature 36.7 ??C (98 ??F) 01/31/2023 8:50 PM GENERAL MEDICAL PRACTITIONER Respiratory Rate 18 01/31/2023 8:50 PM GENERAL MEDICAL PRACTITIONER Oxygen Saturation 99% 01/31/2023 10:55 PM GENERAL MEDICAL PRACTITIONER Inhaled Oxygen Concentration - - Weight - - Height - - Body Mass Index - - documented in this encounter Discharge Instructions * Attachments The following attachments cannot be sent through Care Everywhere. * at 35 to 38 Weeks (Oracle Sql Developer) (Beninese) documented in this encounter Medications at Time of Discharge acetaminophen (TYLENOL) 325 mg tablet Take 2 tablets (650 mg total) by mouth every 6 (six) hours as needed for pain 4 docusate sodium (COLACE) 100 mg capsuleIndicatio ns:constipation Take 1 capsule (100 mg total) by mouth 2 (two) times a day as needed for constipation 60 capsule 11 01/31/2023 4 ferrous sulfate 325 mg (65 mg of elemental iron) tabletIndication s:Iron Deficiency Anemia Take 1 tablet (325 mg total) by mouth daily with breakfast 4 metoclopramide (REGLAN) 10 mg tablet Take 1 tablet (10 mg total) by mouth every 6 (six) hours 30 tablet 08/12/2022 3 ondansetron (ZOFRAN) 4 mg tablet Take 1 tablet (4 mg total) by mouth every 6 (six) hours 12 tablet 2 01/15/2023 3 vit [id number] a 27mg iron- 800 mcg-250 mg capsule Take 1 tablet by mouth daily 4 documented as of this encounter Ordered Prescriptions Prescription Sig Dispense Quantity Refills Last Filled Start Date End Date docusate sodium (COLACE) 100 mg capsuleIndication s:constipation Take 1 capsule (100 mg total) by mouth 2 (two) times a day as needed for constipation 60 capsule 11 01/31/2023 4 documented in this encounter Discharge Disposition Disposition Code Departure Means Destination Comment s Discharge to home or self care documented in this encounter ED Notes * Autumn Chavis MD - 01/31/2023 9:14 PM CST HPI Chief Complaint Patient presents with Hypertension Pt is a 22 y/o @ 36 5/7 wks who presents with c/o feeling dizzy and lightheaded all day. Her pulse at home was 140 bpm. She states she is drinking 6 bottles of water every day. She denies anysick contacts. She has had problems with low potassium and anemia in this . She denies uterine contractions, vaginal bleeding, and leakage of fluid. Baby is moving well. Patient History: Patient Active Problem List Diagnosis Date Noted Routine general medical examination at a health care facility 09/05/2022 Past Medical History: Diagnosis Date Asthma Breast tumor Past Surgical History: Procedure Laterality Date BREAST BIOPSY Right TONSILECTOMY, ADENOIDECTOMY, BILATERAL MYRINGOTOMY AND TUBES History reviewed. No pertinent family history. Social History Tobacco Use Smoking status: Never Smokeless tobacco: None Substance and Sexual Activity Alcohol use: Never Drug use: Never Sexual activity: Yes Partners: Male Social History Social History Narrative Not on file Review of Systems Review of Systems All other systems reviewed and are negative. Physical Exam ED Triage Vitals Temp Pulse Resp BP SpO2 01/31/23204901/31/23204901/31/23204901/31/23204901/31/23 2100 36.7 ??C (98 ??F) 114 18 117/78 99 % Temp src Heart Rate Source Patient Position BP Location FiO2 (%) 01/31/232049 -- -- -- -- Oral Height Height Method Weight Weight Method -- -- -- -- Heart Rate Mode: US transducer Baseline Rate: 155 bpm Variability: Moderate (Between 6 and 25 BPM) Accelerations: Accelerations 15x15 Decelerations: Variable FHR Category: Category II FHR assessed: Every 15 minutes Uterine Activity Mode: Watersmeet Contraction Frequency (minutes): none noted Contraction Duration (seconds): 70 Contraction Quality: Not applicable Resting Tone Palpated: Soft Physical Exam Vitals reviewed. Constitutional: Appearance: Normal appearance. HENT: Head: Normocephalic and atraumatic. Eyes: Extraocular Movements: Extraocular movements intact. Pupils: Pupils are equal, round, and reactive to light. Cardiovascular: Rate and Rhythm: Tachycardia present. Pulmonary: Effort: Pulmonary effort is normal. Abdominal: Palpations: There is mass (gravid). Musculoskeletal: General: Normal range of motion. Cervical back: Normal range of motion. Skin: General: Skin is warm and dry. Neurological: General: No focal deficit present. Mental Status: She is alert and oriented to person, place, and time. Psychiatric: Mood and Affect: Mood normal. Behavior: Behavior normal. Thought Content: Thought content normal. Judgment: Judgment normal. FHTs: Category I Watersmeet: None SVE: Deferred MDM Medical Decision Making Amount and/or Complexity of Data Reviewed Labs: ordered. Details: CBC, BMP, UA , UDS ordered Risk OTC drugs. A/P: Pt. Is a 22 y/o @ 36 5/7 wks with dizziness and anemia in 1) D/C home 2) Anemia: Pt. Has iron pills at home but is not taking them because they make her vomit and not poop. Rx colace sent to pharmacy. Instructions discussed. Pt. To take iron, colace, reglan, and zofranas prescribed. 3) Follow-up at next visit on Saturday. ED Course as of 01/31/23 2300 Time: 01/31 2111 Comment: Pt. Presents with c/o feeling dizzy and lightheaded all day. She states she is drinking 6 bottles of water every day. She denies any sick contacts. She has had problems with low potassium and anemia in this . She denies uterine contractions, vaginal bleeding, and leakage of fluid.Baby is moving well. By: Autumn Chavis MD Time: 01/31 2127 Comment: CBC shows anemia By: Autumn Chavis MD Time: 01/31 2127 Comment: FHTs; Category I Watersmeet: None SVE: Deferred By: Autumn Chavis MD Final diagnoses: 36 weeks gestation of Dizziness Anemia in , third trimester Autumn Chavis MD 01/31/23 2300 RAL MEDICAL PRACTITIONER documented in this encounter Plan of Treatment Not on file documented as of this encounter Procedures Procedure Name Priority Date/Time Associated Diagnosis Comments DRUG SCREEN, URINE L AND D WITH REFLEX CONFIRMATION STAT 01/31/2023 9:12 PM GENERAL MEDICAL PRACTITIONER EGFR STAT 01/31/2023 9:12 PM GENERAL MEDICAL PRACTITIONER DIFFERENTIAL AUTO STAT 01/31/2023 9:1 2 PM GENERAL MEDICAL PRACTITIONER URINALYSIS AND REFLEX TO MICROSCOPIC AND CULTURE STAT 01/31/2023 9:12 PM GENERAL MEDICAL PRACTITIONER CBC WITH AUTO DIFFERENTIAL STAT 01/31/2023 9:12 PM GENERAL MEDICAL PRACTITIONER URINALYSIS, MICROSCOPIC ONLY STAT 01/31/2023 9:12 PM GENERAL MEDICAL PRACTITIONER BASIC METABOLIC PANEL STAT 01/31/2023 9:12 PM GENERAL MEDICAL PRACTITIONER documented in this encounter Results * eGFR (01/31/2023 9:12 PM GENERAL MEDICAL PRACTITIONER) eGFR 152 mL/min/1. 73 m2 ALBERTO Comment: Interpretive Data Reference Interval Normal ?>/= [...] was last reviewed 2021. Testing performed by: [address] [address] Blood 01/31/2023 9:12 PM GENERAL MEDICAL PRACTITIONER 01/31/2023 9:21 PM GENERAL MEDICAL PRACTITIONER us Autumn Chavis MD LAB BLOOD ORDERABLES Fin al Result AL[facility]ERTO [address] [facility] [place] [address] * (ABNORMAL) Urinalysis, microscopic only (01/31/2023 9:12 PM GENERAL MEDICAL PRACTITIONER) WBC, ur 0-5 0 - 5 /HPF ALBERTO Comment:Testing performed by : [address] [address] RBC, ur 3-5(A) 0 - 2 /HPF ALBERTO Comment:Testing performed by : [address] [address] Epithelial cells, squamous, ur 21-50(A) 0 - 5 /HPF ALBERTO Comment:Testing performed by : [address] [address] Bacteria, ur 4+(A) ALBERTO Comment:Testing performed by : [address] [address] Culture Reflex Comment Reflex conditions for urine culture (WBC >10) not met. ALBERTO Comment:Testing performed by : [address] [address] Urine, clean voided 01/31/2023 9:12 PM GENERAL MEDICAL PRACTITIONER 01/31/2023 9:21 PM GENERAL MEDICAL PRACTITIONER us Autumn Chavis MD LAB URINE ORDERABLES Fin al Result [facility] [address] [facility] Department [place] [address] * (ABNORMAL) Differential, auto (01/31/2023 9:12 PM GENERAL MEDICAL PRACTITIONER) Neutrophil abs 8.8(H) 1.7 - 6.5 K/cumm ALBERTO Comment:Testing performed by : [address] [address] Imm gran abs 0.2(H) 0.0 - 0.1 K/cumm ALBERTO Comment:Testing performed by : [address] [address] Lymphocyte abs 1.7 0.8 - 3.3 K/cumm ALBERTO Comment:Testing performed by : [address] [address] Monocyte abs 1.0(H) 0.2 - 0.8 K/cumm ALBERTO Comment:Testing performed by : [address] [address] Eosinophil abs 0.1 0.0 - 0.5 K/cumm ALBERTO Comment:Testing performed by : [address] [address] Basophil abs 0.0 0.0 - 0.1 K/cumm [facility]:Testing performed by : [address] [address] Neutrophil pct 74.4 % ALBERTO Comment: Interpretive Data Percent cell count reference ranges are not reported, since discordance with absolute values may lead to misinterpretation of CBC data. Current Interpretive Data was last revised on 2017. Testing performed by: [address] [address] Imm gran pct 1.4 % ALBERTO Comment: Interpretive Data Percent cell count reference ranges are not reported, since discordance with absolute values may lead to misinterpretation of CBC data. Current Interpretive Data was last revised on 2017. Testing performed by: [address] [address] Lymphocyte pct 14.6 % ALBERTO Comment: Interpretive Data Percent cell count reference ranges are not reported, since discordance with absolute values may lead to misinterpretation of CBC data. Current Interpretive Data was last revised on 2017. Testing performed by: [address] [address] Monocyte pct 8.5 % ALBERTO Comment: Interpretive Data Percent cell count reference ranges are not reported, since discordance with absolute values may lead to misinterpretation of CBC data. Current Interpretive Data was last revised on 2017. Testing performed by: [address] [address] Eosinophil pct 0.8 % ALBERTO Comment: Interpretive Data Percent cell count reference ranges are not reported, since discordance with absolute values may lead to misinterpretation of CBC data. Current Interpretive Data was last revised on 2017. Testing performed by: [address] [address] Basophil pct 0.3 % ALBERTO Comment: Interpretive Data Percent cell count reference ranges are not reported, since discordance with absolute values may lead to misinterpretation of CBC data. Current Interpretive Data was last revised on 2017. Testing performed by: [address] [address] Blood 01/31/2023 9:12 PM GENERAL MEDICAL PRACTITIONER 01/31/2023 9:21 PM GENERAL MEDICAL PRACTITIONER us Autumn Chavis MD LAB BLOOD ORDERABLES Fin al Result [facility] [address] [facility] Department of Laboratories [place], [place] [id number] * (ABNORMAL) Basic metabolic panel (01/31/2023 9:12 PM GENERAL MEDICAL PRACTITIONER) Sodium 135 135 - 145 mmol/L ALBERTO [facility]UCA Comment:Testing performed by : [facility], [address] [place] [address], [place]., [address] Potassium, pl 3.6 3.3 - 4.9 mmol/L ALBERTO Comment:Testing performed by : [address], [place]., [address] Chloride 100 97 - 110 mmol/L ALBERTO Comment:Testing performed by : [address], [place]., [address] CO2 21(L) 22 - 32 mmol/L [facility] Comment:Testing performed by : [address], [place]., [address] Anion gap 14 2 - 15 mmol/L ALBERTO Comment:Testing performed by : [address], [place]., [address] BUN 4(L) 6 - 25 mg/dL [facility] Comment:Testing performed by : [address], [place]., [address] Creatinine 0.30(L) 0.60 - 1.10 mg/dL [facility] Comment:Testing performed by : [address] [address] Glucose 112 70 - 199 mg/dL [facility] Comment: Interpretive Data Fasting glucose >/= [...] was last revised 2022. Testing performed by: [address] [address] Calcium 9.1 8.5 - 10.3 mg/dL ALBERTO Comment:Testing performed by : [address], [place]., [address] Blood 01/31/2023 9:12 PM GENERAL MEDICAL PRACTITIONER 01/31/2023 9:21 PM GENERAL MEDICAL PRACTITIONER us Autumn Chavis MD LAB BLOOD ORDERABLES Fin al Result [facility] [address] [facility] [place] [address] * (ABNORMAL) CBC with auto differential (01/31/2023 9:12 PM GENERAL MEDICAL PRACTITIONER) WBC 11.8(H) 3.8 - 9.9 K/cumm ALBERTO [facility]UCA Comment:Testing performed by : [address] [address] Hgb 9.1(L) 11.9 - 15.5 g/dL ALBERTO [facility]UCA Comment: Interpretive Data A reference range for this assay has not been established for patients with an unknown legal sex. Please refer to the laboratory test catalog for established sex-specific reference intervals. Current interpretive data was last revised on 2023. Testing performed by: [address] [address] Hct 29.3(L) 35.6 - 45.5 % ALBERTO Comment: Interpretive Data A reference range for this assay has not been established for patients with an unknown legal sex. Please refer to the laboratory test catalog for established sex-specific reference intervals. Current interpretive data was last revised on 2023. Testing performed by: [address] [address] Plt 197 150 - 400 K/cumm ALBERTO Comment:Testing performed by : [address] [address] MPV 10.9 9.1 - 12.3 fL ALBERTO [facility]UCA Comment:Testing performed by : [address] [address] RBC 3.92 3.90 - 5.20 M/cumm ALBERTO [facility]UCA Comment: Interpretive Data A reference range for this assay has not been established for patients with an unknown legal sex. Please refer to the laboratory test catalog for established sex-specific reference intervals. Current interpretive data was last revised on 2023. Testing performed by: [address] [address] MCV 74.7(L) 81.3 - 96.4 fL ALBERTO [facility]UCA Comment:Testing performed by : [address] [address] MCH 23.2(L) 27.1 - 33.3 pg ALBEROT [facility]UCA Comment:Testing performed by : [address], [address] MCHC 31.1(L) 32.3 - 35.7 g/dL ALBERTO [facility]UCA Comment:Testing performed by : [address], [address] RDW CV 15.2(H) 11.1 - 14.9 % ALBERTO [facility]UCA Comment:Testing performed by : [address], [address] RDW SD 41.0 35.7 - 48.1 fL ALBERTO Comment:Testing performed by : [address], [address] NRBC abs 0.00 0.00 - 0.01 K/cumm ALBERTO Comment:Testing performed by : [address], [address] Blood 01/31/2023 9:12 PM GENERAL MEDICAL PRACTITIONER 01/31/2023 9:21 PM GENERAL MEDICAL PRACTITIONER us Autumn Chavis MD LAB BLOOD ORDERABLES Fin al Result [facility] [address] [facility] Department of Laboratories [place], [place] [id number] * Drug Screen, Urine L and D with Reflex Confirmation (01/31/2023 9:12 PM GENERAL MEDICAL PRACTITIONER) Amphetamine, ur Not Detected CutOff 500ng/mL ALBERTO [facility]UCA Comment: Interpretive Data - Amphetamines: ??Samples containing greater than 500 ng/mL d-methamphetamine ??or other cross-reacting amphetamine compounds are reported as positive. ??Amphetamine immunoassays are subject to significant false positive rates due to cross-reactivity of non-amphetamine drugs. Confirmatory testing required for definitive results. Current Interpretive Data was last reviewed 2022. Testing performed by: [address] [address] Barbiturates, ur Not Detected CutOff 200ng/mL [facility] Comment: Interpretive Data - Barbiturates: ??Samples containing greater than 200 ng/mL secobarbital or other cross-reacting barbiturate compounds are reported as positive. ??False positive and false negative results are possible. Confirmatory testing required for definitive results. Current Interpretive Data was last reviewed 2022. Testing performed by: [address] [address] Benzodiazepines, ur Not Detected CutOff 100ng/mL [facility] Comment: Interpretive Data - Benzodiazepines: ??Samples containing greater than 100 ng/mL nordiazepam or other cross-reacting compounds are reported as positive. False positive and false negative results are possible. Confirmatory testing required for definitive results. Current Interpretive Data was last reviewed 2022. Testing performed by: [address] [address] Cannabinoids, ur Not Detected CutOff 50 ng/mL [facility] Comment: Interpretive Data - Cannabinoids: ??Samples containing greater than 50 ng/mL delta-9 THC -COOH or other cross-reacting compounds are reported as positive. ??False positive and false negative results are possible. ??Confirmatory testing required for definitive results. Current Interpretive Data was last reviewed 2022. Testing performed by: [address] [address] Cocaine, ur Not Detected CutOff 150ng/mL [facility] Comment: Interpretive Data - Cocaine: ??Samples containing greater than 150 ng/mL benzoylecgonine or other cross-reacting compounds are reported as positive. False positive and false negative results are possible. Confirmatory testing required for definitive results. Current Interpretive Data was last reviewed 2022. Testing performed by: [address] [address] Fentanyl, Ur Not Detected Cutoff 1 ng/mL [facility] Comment: Interpretive Data - Fentanyl: ??Samples containing greater than 1 ng/mL fentanyl or other cross-reacting fentanyl compounds are reported as positive. ??False positive and false negative results are possible. Confirmatory testing required for definitive results. Current Interpretive Data was last reviewed 2022. Testing performed by: [address] [address] Methadone, ur Not Detected CutOff 300ng/mL ALBERTO Comment: Interpretive Data - Methadone: ??Samples containing greater than 300 ng/mL d,l-methadone or other cross-reacting compounds are reported as positive. ??False positive and false negative results are possible. Confirmatory testing required for definitive results. Current Interpretive Data was last reviewed 2022. Testing performed by: [address] [address] Opiates, ur Not Detected CutOff 300ng/mL ALBERTO Comment: Interpretive Data - Opiates: ??Samples containing greater than 300 ng/mL morphine or other cross-reacting compounds are reported as positive. ??False positive and false negative results are possible. Confirmatory testing required for definitive results. Current Interpretive Data was last reviewed 2022. Testing performed by: [address] [address] Oxycodone, ur Not Detected CutOff 100ng/mL ALBERTO Comment: Interpretive Data - Oxycodone: ??Samples containing greater than 100 ng/mL oxycodone or other cross-reacting compounds are reported as ??positive. ??False positive and false negative results are possible. Confirmatory testing required for definitive results. Current Interpretive Data was last reviewed 2022. Testing performed by: [address] [address] Phencyclidine, ur Not Detected CutOff 25 ng/mL ALBERTO Comment: Interpretive Data - Phencyclidine: ??Samples containing greater than 25 ng/mL phencyclidine or other cross-reacting compounds are reported as positive. ??False positive and false negative results are possible. Confirmatory testing required for definitive results. Current Interpretive Data was last reviewed 2022. Testing performed by: [address] [address] Urine Creatinine 29 mg/dL ALBERTO Comment: Interpretive Data Urine Creatinine: < 10 mg/dL is extremely dilute = or > 10 but < 20 mg/dL is dilute = or > 20 mg/dL is normal Current Interpretive Data was last revised on 2017. Testing performed by: [address] [address] Urine 01/31/2023 9:12 PM GENERAL MEDICAL PRACTITIONER 01/31/2023 9:21 PM GENERAL MEDICAL PRACTITIONER Narrative ALBERTO - 01/31/2023 9:47 PM GENERAL MEDICAL PRACTITIONER Drug of Abuse screening is performed by immunoassay for medical purposes only. ??This is not to be used for Pain Management purposes. ??If Detected, confirmation testing will be performed for Amphetamines, Barbiturates, Benzodiazepines, Cannabinoids, Cocaine, Fentanyl, Methadone, Opiates, Oxycodone or Phencyclidine. us Autumn Chavis MD LAB URINE ORDERABLES [facility] al Result AL[facility]ERTO [address] [facility] Department [place] [address] * (ABNORMAL) Urinalysis reflex to microscopic and culture Urine, clean voided (01/31/2023 9:12 PM GENERAL MEDICAL PRACTITIONER) Color, ur Yellow Yellow ALBERTO Comment:Testing performed by : [address] [address] Clarity, ur Clear Clear ALBERTO Comment:Testing performed by : [address] [address] Specific gravity, ur 1.005 1.003 - 1.030 ALBERTO Comment:Testing performed by : [address] [address] pH, urine 6.0 ALBERTO Comment: Interpretive Data ? Urine pH is affected by diet, medications, systemic acid-base disturbances, and renal tubular function. ??pH may affect urinary stone formation. ??For example, urine pH below 6.0 may help reduce the tendency for calcium phosphate stones and pH greater than 6.0 may reduce the tendency for uric acid stone formation. Source: [employer] Current Interpretive Data was last revised on 2017 Testing performed by: [address] [address] Protein, ur ql Negative Negative ALBERTO Comment:Testing performed by : [facility], [address] [place] [address], [place]., [address] Glucose, ur ql Negative Negative ALBERTO Comment:Testing performed by : [address], [place]., [address] Ketones, ur Negative Negative ALBERTO Comment:Testing performed by : [address], [place]., [address] Bilirubin, ur Negative Negative ALBERTO Comment:Testing performed by : [address], [place]., [address] Blood, ur 1+(A) Negative ALBERTO Comment:Testing performed by : [address], [place]., [address] Urobilinogen, ur <2.0 <2.0 mg/dL AL[facility]ERTO Comment:Testing performed by : [address], [place]., [address] Nitrite, ur Negative Negative ALBERTO Comment:Testing performed by : [address], [place]., [address] Leukocyte esterase, ur 1+(A) Negative ALBERTO Comment:Testing performed by : [address], [place]., [address] UA reflex comment Reflex to microscopic UA will be performed. ALBERTO Comment:Testing performed by : [address], [place]., [address] Urine, clean voided 01/31/2023 9:12 PM GENERAL MEDICAL PRACTITIONER 01/31/2023 9:21 PM GENERAL MEDICAL PRACTITIONER us Autumn Chavis MD LAB MICROBIOLOGY - GENER AL ORDERABLES Final Result [facility] [address] [facility] [place] [address] documented in this encounter Visit Diagnoses Diagnosis 36 weeks gestation of - Primary Dizziness Dizziness and giddiness Anemia in , third trimester documented in this encounter Administered Medications Inactive Administered Medications - up to 3 most recent administrations Medication Order MAR Action Action Date Dose Rate Site Lactated Ringer's (LR) bolus 1,000 mL 1,000 mL, intravenous, As needed, for nonreassuring heart rate, variable decelerations, or late deceleration., Starting on Virgen 01/31/23 at 2100, For 1 dose New Bag 01/31/2023 9:18 PM GENERAL MEDICAL PRACTITIONER 1,000 mL documented in this encounter Active and Recently Administered Medications Times are shown in GENERAL MEDICAL PRACTITIONER. PRN Medication Order 01/29/2023 01/30/2023 01/31/2023 Lactated Ringer's (LR) bolus 1,000 mL (COMPLETED) 1,000 mL, intravenous, As needed, for nonreassuring heart rate, variable decelerations, or late deceleration., Starting on Virgen 01/31/23 at 2100, For 1 dose 2117 (New Bag - Prov ider: Elva Miller RN)2146 (Stopped - Provider: Elva Miller RN) documented in this encounter Orders Medications Ordered That Arthur ht Not Have Been Administered Count Last Ordered Date First Ordered Date Lactated Ringer's (LR) bolus 1,000 mL 1 11/2022 Nursing Count Last Ordered Date First Orde red Date CONTRACTION - MONITORING 1 01/31/2023 MONITORING 1 01/31/2023 IV Count Last Ordered Date First Orde red Date INSERT PERIPHERAL IV 1 01/31/2023 documented in this encounter Care Teams [employer] Developer Relationship Specialty Start Date End Date No, Physician PCP - General 08/06/22 documented as of this encounter
--- OUTSIDE RECORDS SUMMARY | 2024-03-15 14:55 | XMS_ITS | Encounter Summary ---
Author Organization [facility] Healthcare Address [address] [place] [address] Care Team Providers Care Ship Officer Name Role Phone No, Physician Primary Care Provider Reason for Visit * Reason Comments Rupture of Membranes Trickling fluid for the past 3 days. Also having pressure. Decreased Movement Encounter Details Date Type Department Care Team (Late st Contact Info) Description 01/25/2023 10:35 PM CDT - 01/26/2023 12:[address] [facility] OB Emergency Department [address] [place], [place] [id number] Zachery Sullivan MD [address] [place] [id number] 35 weeks gestation of (Primary Dx); No leakage of amniotic fluid into vagina; Pelvic pressure in , antepartum, third trimester Discharge Disposition: Discharge to home [...] Sign Reading Time Taken Comments Blood Pressure 115/76 01/26/2023 12:47 AM CDT Pulse 94 01/26/2023 12:47 AM CDT Temperature 36.8 ??C (98.3 ??F) 01/25/2023 10:35 PM C DT Respiratory Rate 18 01/25/2023 10:35 PM CDT Oxygen Saturation 98% 01/25/2023 10:51 PM CDT Inhaled Oxygen Concentration - - Weight 59.9 kg (132 lb) 01/25/2023 10:35 PM CDT Height 160 cm (5' 3 ) 01/25/2023 10:35 PM CDT Body Mass Index 23.38 01/25/2023 10:35 PM CDT documented in this encounter Discharge Instructions * Attachments The following attachments cannot be sent through Care Everywhere. * Kick Counts in (Discharge Care) (Lebanese) * Early Labor Signs (Discharge Care) (Lebanese) documented in this encounter Medications at Time of Discharge acetaminophen (TYLENOL) 325 mg tablet Take 2 tablets (650 mg total) by mouth every 6 (six) hours as needed for pain 4 ferrous sulfate 325 mg (65 mg [...] hours 12 tablet 2 01/15/2023 3 vit [id number] a 27mg iron- 800 mcg-250 mg capsule Take 1 tablet by mouth daily 4 documented as of this encounter Discharge Disposition Disposition Code Departure Means Destination Comment s Discharge to home or self care documented in this encounter ED Notes * Autumn Chavis MD - 01/25/2023 11:16 PM CDT HPI Chief Complaint Patient presents with Rupture of Membranes Trickling fluid for the past 3 days. Also having pressure. Decreased Movement Pt. Is a 22 y/o @ 35 5/7 wks who presents with c/o LOF x 3 days and pelvic pressure. She denies vaginal bleeding and uterine contractions. Although, she did not feel uterine contractions her whole first labor, only pressure. Additionally, baby has only moved 2 times in an hour today. Patient History: Patient Active Problem List Diagnosis Date Noted Routine general medical examination at a health care facility 09/05/2022 Past Medical History: Diagnosis Date Asthma Breast tumor Past Surgical History: Procedure Laterality Date BREAST BIOPSY TONSILECTOMY, ADENOIDECTOMY, BILATERAL MYRINGOTOMY AND TUBES No family history on file. Social History Tobacco Use Smoking status: Never Smokeless tobacco: Not on file Substance and Sexual Activity Alcohol use: Never Drug use: Never Sexual activity: Yes Partners: Male Social History Social History Narrative Not on file Review of Systems Review of Systems All other systems reviewed and are negative. Physical Exam ED Triage Vitals [01/25/232234] Temp Pulse Resp BP SpO2 36.8 ??C (98.3 ??F) 110 18 124/95 99 % Temp src Heart Rate Source Patient Position BP Location FiO2 (%) Oral Monitor -- Left arm -- Height Height Method Weight Weight Method 1.6 m (5' 3 ) Stated 59.9 kg (132 lb) Stated Heart Rate Mode: US transducer Physical Exam Vitals reviewed. Constitutional: Appearance: Normal appearance. HENT: Head: Normocephalic and atraumatic. Eyes: Extraocular Movements: Extraocular movements intact. Pupils: Pupils are equal, round, and reactive to light. Cardiovascular: Rate and Rhythm: Tachycardia present. Pulmonary: Effort: Pulmonary effort is normal. Abdominal: Palpations: There is mass (gravid). Genitourinary: General: Normal vulva. Musculoskeletal: General: Normal range of motion. Cervical back: Normal range of motion. Skin: General: Skin is warm and dry. Neurological: General: No focal deficit present. Mental Status: She is alert and oriented to person, place, and time. Psychiatric: Mood and Affect: Mood normal. Behavior: Behavior normal. Thought Content: Thought content normal. Judgment: Judgment normal. FHTs: Category I [place]: q 7 min. SVE: /-3 post MDM Medical Decision Making Amount and/or Complexity of Data Reviewed External Data Reviewed: notes. Details: h/o IUGR and PROM at 35 weeks Labs: ordered. Details: ROM + ECG/medicine tests: ordered. Details: NST A/P: Pt. Is a 22 y/o @ 35 6/7 wks with intact membranes, not in labor 1) D/C home 2) Follow-up at next visit. ED Course as of 01/26/23 0039 Time: 01/25 2245 Comment: Pt. Presents with c/o LOF x 3 days and pelvic pressure. She denies vaginal bleeding and uterine contractions. Although, she did not feel uterine contractions her whole first labor, only pressure. Additionally, baby has only moved 2 times in an hour today. By: Autumn Chavis MD Time: 01/25 2301 Comment: ROM +, UA, UDS ordered FHTs: Category I [place]: q 7 min. SVE: /-3 post By: Autumn Chavis MD Time: 01/25 2346 Comment: ROM + negative UDS negative By: Autumn Chavis MD Time: 01/27 28 Comment: Still awaiting UA By: Autumn Chavis MD Time: 01/26 30 Comment: UA negative By: Autumn Chavis MD Time: 01/26 31 Comment: FHTs: Category I [place]: rare (not felt by pt.) SVE: /-3 (unchanged) D/C home By: Autumn Chavis MD Final diagnoses: 35 weeks gestation of No leakage of amniotic fluid into vagina Pelvic pressure in , antepartum, third trimester Autumn Chavis MD 01/26/2340 documented in this encounter Miscellaneous Notes * ED Procedure Note - Autumn Chavis MD - 01/26/2023 12:39 AM CDT NONSTRESS TEST DIAGNOSIS: Decreased movement: Time of onset today Mariam Lea 22 y.o. at 36w0d PHYSICIAN REVIEWING: Autumn Chavis MD FINDINGS: HEART RATE: 130 DECELERATIONS? No ACCELERATIONS? Yes INTERPRETATION: Category I tracing RECOMMENDATION: Follow up as clinically indicated Autumn Chavis MD 01/26/2339 documented in this encounter Plan of Treatment Not on file documented as of this encounter Procedures Procedure Name Priority Date/Time Associated Diagnosis Comments DRUG SCREEN, URINE L AND D WITH REFLEX CONFIRMATION STAT 01/25/2023 11:09 PM CDT PAMG-1 PROTEIN MARKER (ROM) STAT 01/25/2023 11:09 PM CDT URINALYSIS AND REFLEX TO MICROSCOPIC AND CULTURE STAT 01/25/2023 11:09 PM CDT documented in this encounter Results * Drug Screen, Urine L and D with Reflex Confirmation (01/25/2023 11:09 PM CDT) [facility] Amphetamine, ur Not Detected CutOff 500ng/mL ALBERTO Comment: Interpretive Data - Amphetamines: ??Samples containing greater than 500 ng/mL d-methamphetamine ??or other cross-reacting amphetamine compounds are reported as positive. ??Amphetamine immunoassays are subject to significant false positive rates due to cross-reactivity of non-amphetamine drugs. Confirmatory testing required for definitive results. Current Interpretive Data was last reviewed 2022. Testing performed by: [address] [address] Barbiturates, ur Not Detected CutOff 200ng/mL [facility] Comment: Interpretive Data - Barbiturates: ??Samples containing greater than 200 ng/mL secobarbital or other cross-reacting barbiturate compounds are reported as positive. ??False positive and false negative results are possible. Confirmatory testing required for definitive results. Current Interpretive Data was last reviewed 2022. Testing performed by: [address] [address] Benzodiazepines, ur Not Detected CutOff 100ng/mL [facility] Comment: Interpretive Data - Benzodiazepines: ??Samples containing greater than 100 ng/mL nordiazepam or other cross-reacting compounds are reported as positive. False positive and false negative results are possible. Confirmatory testing required for definitive results. Current Interpretive Data was last reviewed 2022. Testing performed by: [address] [address] Cannabinoids, ur Not Detected CutOff 50 ng/mL [facility] Comment: Interpretive Data - Cannabinoids: ??Samples containing greater than 50 ng/mL delta-9 THC -COOH or other cross-reacting compounds are reported as positive. ??False positive and false negative results are possible. ??Confirmatory testing required for definitive results. Current Interpretive Data was last reviewed 2022. Testing performed by: [address] [address] Cocaine, ur Not Detected CutOff 150ng/mL [facility] Comment: Interpretive Data - Cocaine: ??Samples containing greater than 150 ng/mL benzoylecgonine or other cross-reacting compounds are reported as positive. False positive and false negative results are possible. Confirmatory testing required for definitive results. Current Interpretive Data was last reviewed 2022. Testing performed by: [address] [address] Fentanyl, Ur Not Detected Cutoff 1 ng/mL [facility] Comment: Interpretive Data - Fentanyl: ??Samples containing greater than 1 ng/mL fentanyl or other cross-reacting fentanyl compounds are reported as positive. ??False positive and false negative results are possible. Confirmatory testing required for definitive results. Current Interpretive Data was last reviewed 2022. Testing performed by: [address] [address] Methadone, ur Not Detected CutOff 300ng/mL [facility] Comment: Interpretive Data - Methadone: ??Samples containing greater than 300 ng/mL d,l-methadone or other cross-reacting compounds are reported as positive. ??False positive and false negative results are possible. Confirmatory testing required for definitive results. Current Interpretive Data was last reviewed 2022. Testing performed by: [address] [address] Opiates, ur Not Detected CutOff 300ng/mL [facility] Comment: Interpretive Data - Opiates: ??Samples containing greater than 300 ng/mL morphine or other cross-reacting compounds are reported as positive. ??False positive and false negative results are possible. Confirmatory testing required for definitive results. Current Interpretive Data was last reviewed 2022. Testing performed by: [address] [address] Oxycodone, ur Not Detected CutOff 100ng/mL [facility] Comment: Interpretive Data - Oxycodone: ??Samples containing greater than 100 ng/mL oxycodone or other cross-reacting compounds are reported as ??positive. ??False positive and false negative results are possible. Confirmatory testing required for definitive results. Current Interpretive Data was last reviewed 2022. Testing performed by: [address] [address] Phencyclidine, ur Not Detected CutOff 25 ng/mL [facility] Comment: Interpretive Data - Phencyclidine: ??Samples containing greater than 25 ng/mL phencyclidine or other cross-reacting compounds are reported as positive. ??False positive and false negative results are possible. Confirmatory testing required for definitive results. Current Interpretive Data was last reviewed 2022. Testing performed by: [address] [address] Urine Creatinine 16 mg/dL [facility] Comment: Interpretive Data Urine Creatinine: < 10 mg/dL is extremely dilute = or > 10 but < 20 mg/dL is dilute = or > 20 mg/dL is normal Current Interpretive Data was last revised on 2017. Testing performed by: [address] [address] Urine 01/25/2023 11:0 9 PM CDT 01/25/2023 11:16 PM CDT Narrative ALBERTO - 01/25/2023 11:42 PM CDT Drug of Abuse screening is performed by immunoassay for medical purposes only. ??This is not to be used for Pain Management purposes. ??If Detected, confirmation testing will be performed for Amphetamines, Barbiturates, Benzodiazepines, Cannabinoids, Cocaine, Fentanyl, Methadone, Opiates, Oxycodone or Phencyclidine. Autumn Chavis MD LAB URINE ORDERABLES [facility] al Result AL[facility]ERT[facility] [address] [facility] Department [place] [address] * (ABNORMAL) Urinalysis reflex to microscopic and culture Urine, clean voided (01/25/2023 11:09 PM CDT) Color, ur Straw Yellow [facility]ERTO Comment:Testing performed by : [address] [address] Clarity, ur Clear Clear AL[facility]ERTO Comment:Testing performed by : [address] [address] Specific gravity, ur 1.002(L) 1.003 - 1.030 AL[facility]ERTO Comment:Testing performed by : [facility], [address] [place] [address], [place]., [address] pH, urine 7.0 ALBERTO Comment: Interpretive Data ? Urine pH is affected by diet, medications, systemic acid-base disturbances, and renal tubular function. ??pH may affect urinary stone formation. ??For example, urine pH below 6.0 may help reduce the tendency for calcium phosphate stones and pH greater than 6.0 may reduce the tendency for uric acid stone formation. Source: [facility] [employer] Current Interpretive Data was last revised on 2017 Testing performed by: [facility], [address] [place] [address], [place]., [address] Protein, ur ql Negative Negative ALBERTO Comment:Testing performed by : [address], [place]., [address] Glucose, ur ql Negative Negative AL[facility]ERTO Comment:Testing performed by : [address], [place]., [address] Ketones, ur Negative Negative AL[facility]ERTO Comment:Testing performed by : [address], [place]., [address] Bilirubin, ur Negative Negative AL[facility]ERTO Comment:Testing performed by : [address], [place]., [address] Blood, ur Negative Negative ALBERTO Comment:Testing performed by : [address], [place]., [address] Urobilinogen, ur <2.0 <2.0 mg/dL AL[facility]ERTO Comment:Testing performed by : [address], [place]., [address] Nitrite, ur Negative Negative AL[facility]ERTO Comment:Testing performed by : [address], [place]., [address] Leukocyte esterase, ur Negative Negative ALBERTO Comment:Testing performed by : [address], [place]., [address] UA reflex comment Reflex conditions for microscopic UA and culture not met. ALBERTO Comment:Testing performed by : [address], [place]., [address] Urine, clean voided 01/25/2023 11:09 PM CDT 01/26/2023 12:24 AM CDT us Autumn Chavis MD LAB MICROBIOLOGY - GENER AL ORDERABLES Final Result Performing Organization Address City/[facility]/ZIP Co de Phone Number ALBERTO [address] [facility] [place] [place] [address] * ROM Plus (IGFBP-1/AFP) (01/25/2023 11:09 PM CDT) IFG Binding Protein-1 / AFP Negative ALBERTO Comment:Testing performed by : [facility], [address] [place] [address]., [address] Swab 01/25/2023 11:0 9 PM CDT 01/25/2023 11:16 PM CDT us Autumn Chavis MD LAB BODY FLUIDS AND STOO LS ORDERABLES Final Result Performing Organization Address [facility] Co de Phone Number ALBERTO [address] [place] [place] [address] documented in this encounter Visit Diagnoses Diagnosis 35 weeks gestation of - Primary No leakage of amniotic fluid into vagina Pelvic pressure in , antepartum, third trimester documented in this encounter Orders Nursing Count Last Ordered Date First Orde red Date CONTRACTION - MONITORING 1 01/25/2023 MONITORING 1 01/25/2023 documented in this encounter Care Teams Ship Officer Relationship Specialty Start Date End Date No, Physician PCP - General 08/06/22 documented as of this encounter
--- OUTSIDE RECORDS SUMMARY | 2024-03-15 14:55 | XMS_ITS | Encounter Summary ---
Author Organization [facility] Healthcare Address [address] [place] [address] Care Team Providers Care Chuck Boner Name Role Phone No, Physician Primary Care Provider [phone] Encounter Details Date Type Department Care Team (Late st Contact Info) Description 02/24/2023 12:25 PM [employer]IME PLANT OPERATOR HELPER - 02/24/2023 2:04 PM [facility] Emergency [facility] OB Emergency Department [address], [place] [id number] Leyla Noble MD [address] [place] [address] perineal pain (Primary Dx); Syncope, unspecified syncope type Discharge Disposition: Discharge to home or self [...] Sign Reading Time Taken Comments Blood Pressure 101/67 02/24/2023 1:45 PM [employer] OPERATOR HELPER Pulse 72 02/24/2023 1:56 PM [employer] OPERATOR HELPER Temperature - - Respiratory Rate - - Oxygen Saturation 99% 02/24/2023 1:56 PM [employer] PL[employer] OPERATOR HELPER Inhaled Oxygen Concentration - - Weight - - Height - - Body Mass Index - - documented in this encounter Discharge Instructions * Attachments The following attachments cannot be sent through Care Everywhere. * Vaginal Delivery (Discharge Care) (Chinese) documented in this encounter Medications at Time [...] or headaches 40 tablet 02/21/2023 4 vit [id number]-dh a 27mg iron- 800 mcg-250 mg capsule Take 1 tablet by mouth daily 4 documented as of this encounter Discharge Disposition Disposition Code Departure Means Destination Comment s Discharge to home or self care documented in this encounter ED Notes * Kian Reich MD - 02/24/2023 12:52 PM CST HPI No chief complaint on file. 22 y/o s/p 10 days ago and PP endometritis presented to [facility] with complaints of vaginal pain that started today. She states she felt a sharp stabbing pain in her vagina when she was urinating. She felt it again when she was walking. She denies bleeding or fevers. She is still taking antibiotics. She states she is not taking the flagyl antibiotic because she states it made her feel shortof breath and was told she would get another antibiotic on Saturday. She also reports still having syncopal episodes as she was in she had one today and none in the last two weeks. Patient History: Patient Active Problem List Diagnosis Date Noted 39 weeks gestation of 02/19/2023 Endometritis following delivery 02/19/2023 Routine general medical examination at a health [...] are negative. Physical Exam ED Triage Vitals [02/24/23 1230] Temp Pulse Resp BP SpO2 -- 76 -- 119/83 100 % Temp src Heart Rate Source Patient Position BP Location FiO2 (%) -- -- -- -- -- Height Height Method Weight Weight Method -- -- -- -- Physical Exam Vitals reviewed. Constitutional: Appearance: Normal appearance. Cardiovascular: Rate and Rhythm: Normal rate and regular rhythm. Pulses: Normal pulses. Heart sounds: Normal heart sounds. Pulmonary: [place]: Pulmonary effort is normal. Breath sounds: Normal breath sounds. Genitourinary: General: Normal vulva. Comments: Vagina intact no swelling or hematoma no lacerations Negative cervical tenderness, no bladder or uterine tenderness. Minimal discharge. MDM Medical Decision Making Vaginal pain - musculoskeletal no lacerations or hematomas. Examiine benign Syncopal episode- labs normal ECG no acute findings. Pp chorio- continue antibiotics as prescribed and keep scheduled follow up appt. Amount and/or Complexity of Data Reviewed Labs: ordered. Risk Prescription drug management. Decision regarding hospitalization. Critical Care Total time providing critical care: 20 minutes Labs Reviewed URINALYSIS AND REFLEX TO MICROSCOPIC AND CULTURE - Abnormal Result Value Color, ur Yellow Clarity, ur Cloudy (*) Specific gravity, ur 1.019 pH, urine 6.0 Protein, ur ql Negative Glucose, ur ql Negative Ketones, ur Negative Bilirubin, ur Negative Blood, ur 2+ (*) Urobilinogen, ur <2.0 Nitrite, ur Negative Leukocyte esterase, ur 1+ (*) UA reflex comment Reflex to microscopic UA will be performed. CBC WITHOUT DIFFERENTIAL - Abnormal WBC 9.7 Hgb 11.2 (*) Hct 38.5 Plt 357 MPV 9.6 RBC 5.07 MCV 75.9 (*) MCH 22.1 (*) MCHC 29.1 (*) RDW CV 16.8 (*) RDW SD 44.5 NRBC abs 0.00 COMPREHENSIVE METABOLIC PANEL - Abnormal Sodium 141 Potassium, pl 4.4 Chloride 103 CO2 27 Anion gap 11 BUN 10 Creatinine 0.50 (*) Glucose 96 Calcium 9.7 Bilirubin, total 0.2 Protein, pl 7.5 Albumin 4.1 Alk phos 124 ALT 24 AST 13 URINALYSIS, MICROSCOPIC ONLY - Abnormal WBC, ur 6-10 (*) RBC, ur 3-5 (*) Epithelial cells, squamous, ur 21-50 (*) Mucous, ur Present (*) Culture Reflex Comment Value: Reflex conditions for urine culture (WBC >10) not met. EGFR eGFR 134 Final diagnoses: perineal pain Syncope, unspecified syncope type Continue ice and tucks, and spray. Kian Reich MD 02/24/23 1349 Kian Reich MD 02/24/23 1351 Kian Reich MD 02/24/23 1352 E PLANT OPERATOR HELPER E PLANT OPERATOR HELPER E PLANT OPERATOR HELPER documented in this encounter Plan of Treatment Not on file documented as of this encounter Procedures Procedure Name Priority Date/Time Associated Diagnosis Comments ECG 12-LEAD Routine 02/24/2023 1:22 PM [employer] OPERATOR HELPER EGFR STAT 02/24/2023 12:45 PM [employer] OPERATOR HELPER URINALYSIS AND REFLEX TO MICROSCOPIC AND CULTURE STAT 02/24/2023 12:45 PM [employer] OPERATOR HELPER URINALYSIS, MICROSCOPIC ONLY STAT 02/24/2023 12:45 PM [employer] OPERATOR HELPER CBC WITHOUT DIFFERENTIAL STAT 02/24/2023 12:45 PM [employer] OPERATOR HELPER COMPREHENSIVE METABOLIC PANEL STAT 02/24/2023 12:45 PM [employer] PL[employer] OPERATOR HELPER documented in this encounter Results * ECG 12 lead (02/24/2023 1:22 PM [employer]IME PLANT OPERATOR HELPER) Ventricular Rate EKG/Min 73 BPM [facility] Atrial Rate 73 BPM [facility] ID-Interval (MSEC) 134 ms [facility] QRS-Interval (MSEC) 76 ms [facility] QT-Interval (MSEC) 378 ms [facility] QTc 416 ms [facility] P [place] 53 degrees [facility] R [place] 59 degrees [facility] T [place] 37 degrees [facility] Diagnosis Normal sinus rhythm Possible Left atrial enlargement Nonspecific ST abnormality Borderline ECG When compared with ECG of 11-OCT-2018 03:08, No significant change was found Confirmed by LESLYE KUMAR M.D. ([id number]) on 02/24/2023 9:42:29 PM [facility] 02/24/2023 1:22 PM [employer] OPERATOR HELPER 02/24/2023 9:42 PM [employer] OPERATOR HELPER us Kian Reich MD ECG ORDERABLES Final Resul t [facility] * eGFR (02/24/2023 12:45 PM [employer] PL[employer] OPERATOR HELPER) eGFR 134 mL/min/1. 73 m2 [facility] DELUCA Comment: Interpretive Data Reference Interval Normal ?>/= [...] was last reviewed 2021. Testing performed by: [address] [address] Blood 02/24/2023 12:4 5 PM [employer] PLANT OPERATOR HELPER 02/24/2023 1:00 PM [employer] PL[employer] OPERATOR HELPER us Kian Reich MD LAB BLOOD ORDERABLES Final Result [facility] [address] Department of Laboratories [place], [place] [id number] * (ABNORMAL) Urinalysis, microscopic only (02/24/2023 12:45 PM [employer] OPERATOR HELPER) WBC, ur 6-10(A) 0 - 5 /HPF [facility] Comment:Testing performed by : [address] [address] RBC, ur 3-5(A) 0 - 2 /HPF AL[facility]ERTO Comment:Testing performed by : [address] [address] Epithelial cells, squamous, ur 21-50(A) 0 - 5 /HPF AL[facility]ERTO Comment:Testing performed by : [address] [address] Mucous, ur Present(A) AL[facility]ERTO Comment:Testing performed by : [address] [address] Culture Reflex Comment Reflex conditions for urine culture (WBC >10) not met. ALBERTO Comment:Testing performed by : [address] [place]., [address] Urine 02/24/2023 12:4 5 PM [employer] OPERATOR HELPER 02/24/2023 12:48 PM [employer] PL[employer] OPERATOR HELPER us Kian Reich MD LAB URINE ORDERABLES Final Result [facility] [address] Department [place] [address] * (ABNORMAL) Urinalysis reflex to microscopic and culture Urine (02/24/2023 12:45 PM [employer] OPERATOR HELPER) Color, ur Yellow Yellow ALBERTO Comment:Testing performed by : [address] [address] Clarity, ur Cloudy(A) Clear AL[facility]ERTO Comment:Testing performed by : [address] [address] Specific gravity, ur 1.019 1.003 - 1.030 AL[facility]ERTO Comment:Testing performed by : [address] [address] pH, urine 6.0 ALBERTO Comment: Interpretive Data ? Urine pH is affected by diet, medications, systemic acid-base disturbances, and renal tubular function. ??pH may affect urinary stone formation. ??For example, urine pH below 6.0 may help reduce the tendency for calcium phosphate stones and pH greater than 6.0 may reduce the tendency for uric acid stone formation. Source: [facility] Current Interpretive Data was last revised on 2017 Testing performed by: [address] [address] Protein, ur ql Negative Negative ALBERTO Comment:Testing performed by : [address] [address] Glucose, ur ql Negative Negative ALBERTO Comment:Testing performed by : [address] [address] Ketones, ur Negative Negative ALBERTO Comment:Testing performed by : [address] [address] Bilirubin, ur Negative Negative ALBERTO Comment:Testing performed by : [address] [address] Blood, ur 2+(A) Negative ALBERTO DELUCA Comment:Testing performed by : [address], [place]., [address] Urobilinogen, ur <2.0 <2.0 mg/dL AL[facility]ERTO DELUCA Comment:Testing performed by : [address], [place]., [address] Nitrite, ur Negative Negative ALBERTO DELUCA Comment:Testing performed by : [address], [place]., [address] Leukocyte esterase, ur 1+(A) Negative ALBERTO DELUCA Comment:Testing performed by : [address], [place]., [address] UA reflex comment Reflex to microscopic UA will be performed. ALBERTO DELUCA Comment:Testing performed by : [address], [place]., [address] Urine 02/24/2023 12:4 5 PM [employer] OPERATOR HELPER 02/24/2023 12:48 PM [employer] OPERATOR HELPER us Kian Reich MD LAB MICROBIOLOGY - GENERAL ORDERABLES Final Result [facility] [address] Department [place] [address] * (ABNORMAL) Comprehensive metabolic panel (02/24/2023 12:45 PM [employer]IME PL[employer] OPERATOR HELPER) Sodium 141 135 - 145 mmol/L AL[facility]ERTO DELUCA Comment:Testing performed by : [address] [address] Potassium, pl 4.4 3.3 - 4.9 mmol/L ALBERTO DELUCA Comment:Testing performed by : [address] [address] Chloride 103 97 - 110 mmol/L AL[facility]ERTO DELUCA Comment:Testing performed by : [address] [address] CO2 27 22 - 32 mmol/L ALBERTO DELUCA Comment:Testing performed by : [address] [address] Anion gap 11 2 - 15 mmol/L ALBERTO Comment:Testing performed by : [address] [address] BUN 10 6 - 25 mg/dL ALBERTO Comment:Testing performed by : [address] [address] Creatinine 0.50(L) 0.60 - 1.10 mg/dL AL[facility]ERTO Comment:Testing performed by : [address] [address] Glucose 96 70 - 199 mg/dL ALBERTO Comment: Interpretive [...] was last revised 2022. Testing performed by: [address] [address] Calcium 9.7 8.5 - 10.3 mg/dL ALBERTO Comment:Testing performed by : [address] [address] Bilirubin, total 0.2 0.1 - 1.2 mg/dL ALBERTO Comment:Testing performed by : [address] [address] Protein, pl 7.5 6.5 - 8.5 g/dL ALBERTO Comment:Testing performed by : [address] [address] Albumin 4.1 3.5 - 5.0 g/dL ALBERTO Comment:Testing performed by : [address] [address] Alk phos 124 40 - 130 Units/L ALBERTO Comment:Testing performed by : [address] [address] ALT 24 7 - 45 Units/L ALBERTO Comment:Testing performed by : [address] [address] AST 13 10 - 45 Units/L AL[facility]ERTO DELUCA Comment:Testing performed by : [address] [address] Blood 02/24/2023 12:4 5 PM [employer] PL[employer] OPERATOR HELPER 02/24/2023 1:00 PM [employer]IME PL[employer] OPERATOR HELPER Kian Reich MD LAB BLOOD ORDERABLES Final Result [facility] [address] Department [place] [address] * (ABNORMAL) CBC without differential (02/24/2023 12:45 PM SLIME PLANT OPERATOR HELPER) [facility] WBC 9.7 3.8 - 9.9 K/cumm ALBERTO DELUCA Comment:Testing performed by : [address] [address] Hgb 11.2(L) 11.9 - 15.5 g/dL ALBERTO DELUCA Comment: Interpretive Data A reference range for this assay has not been established for patients with an unknown legal sex. Please refer to the laboratory test catalog for established sex-specific reference intervals. Current interpretive data was last revised on 2023. Testing performed by: [address] [address] Hct 38.5 35.6 - 45.5 % ALBERTO DELUCA Comment: Interpretive Data A reference range for this assay has not been established for patients with an unknown legal sex. Please refer to the laboratory test catalog for established sex-specific reference intervals. Current interpretive data was last revised on 2023. Testing performed by: [address] [address] Plt 357 150 - 400 K/cumm ALBERTO DELUCA Comment:Testing performed by : [address] [address] MPV 9.6 9.1 - 12.3 fL ALBERTO DELUCA Comment:Testing performed by : [address] [address] RBC 5.07 3.90 - 5.20 M/cumm ALBERTO DELUCA Comment: Interpretive Data A reference range for this assay has not been established for patients with an unknown legal sex. Please refer to the laboratory test catalog for established sex-specific reference intervals. Current interpretive data was last revised on 2023. Testing performed by: [address] [address] MCV 75.9(L) 81.3 - 96.4 fL ALBERTO Comment:Testing performed by : [address] [address] MCH 22.1(L) 27.1 - 33.3 pg ALBERTO Comment:Testing performed by : [address] [address] MCHC 29.1(L) 32.3 - 35.7 g/dL ALBERTO Comment:Testing performed by : [address] [address] RDW CV 16.8(H) 11.1 - 14.9 % ALBERTO Comment:Testing performed by : [address] [address] RDW SD 44.5 35.7 - 48.1 fL ALBERTO Comment:Testing performed by : [address] [address] NRBC abs 0.00 0.00 - 0.01 K/cumm ALBERTO Comment:Testing performed by : [address] [address] Blood 02/24/2023 12:4 5 PM [employer] PLANT OPERATOR HELPER 02/24/2023 1:00 PM [employer]IME PLANT OPERATOR HELPER us Kian Reich MD LAB BLOOD ORDERABLES Final Result [facility] DELUCA [address] Department [place] [address] documented in this encounter Visit Diagnoses Diagnosis perineal pain- Primary Syncope, unspecified syncope type documented in this encounter Administered Medications Inactive Administered Medications - up to 3 most recent administrations Medication Order MAR Action Action Date Dose Rate Site benzocaine-menthoL (DERMOPLAST) 20-0.5 % topical spray topical, As needed, pain, Starting on 02/24/23 at 1346, Apply to affected area: perineum documented in this encounter Discontinued Medications Medication Sig Discontinue Reason Start Date End Da te albuterol HFA (PROVENTIL HFA,VENTOLIN HFA,PROAIR HFA) 90 mcg/actuation inhaler Inhale 2 puffs every 4 (four) hours as needed for wheezing Therapy completed 02/10/2023 02/24/2023 fluticasone propionate (FLOVENT HFA) 220 mcg/actuation inhaler Inhale 1 puff 2 (two) times a day Rinse mouth with water after use. Do not swallow. Therapy completed 02/10/2023 02/24/2023 fluconazole (DIFLUCAN) 150 mg tablet Repeat in 7 days if symptoms persist. Therapy completed 02/21/2023 02/24/2023 metroNIDAZOLE (FLAGYL) 500 mg tablet Take 1 tablet (500 mg total) by mouth 2 (two) times a day for 7 days Therapy completed 02/21/2023 02/24/2023 documented as of this encounter Active and Recently Administered Medications Times are shown in [employer] OPERATOR HELPER. PRN Medication Order 02/22/2023 02/23/2023 02/24/2023 benzocaine-menthoL (DERMOPLAST) 20-0.5 % topical spray topical, As needed, pain, Starting on 02/24/23 at 1346, Apply to affected area: perineum 1402 (Due) documented in this encounter Orders Medications Ordered That Arthur ht Not Have Been Administered Count Last Ordered Date First Ordered Date benzocaine-menthoL (DERMOPLA ST) 20-0.5 % topical spray 1 02/24/2023 documented in this encounter Care Teams Chuck Boner Relationship Specialty Start Date End Date No, Physician PCP - General 08/06/22 documented as of this encounter
--- OUTSIDE RECORDS SUMMARY | 2024-03-15 14:55 | XMS_ITS | Encounter Summary ---
Author Organization [facility] Healthcare Address [address] [place] [address] Care Team Providers Care [employer] Crew Boss Name Role Phone No, Physician Primary Care Provider [phone] Reason for Visit * Reason Comments Sinus Problem Entered automaticall y based on patient selection in DailyBurn. Encounter Details Date Type Department Care Team (Late st Contact Info) Description 02/18/2023 12:10 PM PIE CHEF E-Visit [facility] Virtual Care [address] [place] [address] Dede Nelson, OZIEL [address] [place] [address] Your Medications Social History Tobacco Use Types Packs/Day Years [...] Refills Last Filled Start Date End Date amoxicillin-clavul anate (Augmentin) 875-125 mg per tablet Take 1 tablet by mouth 2 (two) times a day 20 tablet 02/18/2023 08/12/2023 documented in this encounter Miscellaneous Notes * E-Visit Note - Dede Nelson NP - 02/18/2023 12:19 PM CST Mariam Lutz Lea 02/18/2023 E-Visit Submission Subjective/Objective: Mariam Lea contacted the office today via e-visit for Sinusitis. The patient-submitted questionnaire was assessed for pertinent information and the patient's problem list, medication list, and allergies were reviewed as part of the e-visit. The chart was updated to identify any changes in these areas. Assessment: Diagnosis Plan 1. Acute non-recurrent sinusitis, unspecified location Plan: The patient was given information regarding any new medication(s) prescribed, if applicable, as well as any [id number]-mbr-[id number] remedies. She was given instructions regarding follow up and timeframe if symptoms worsen or don???t improve. These instructions were included in the DailyBurn message reply tothe patient. Patient Instructions were included in the message reply to patient. My total encounter time on 02/18/2023 was 5 minutes which was spent in the activities documented inthe note. New Medications Ordered This Visit amoxicillin-clavulanate (Augmentin) 875-125 mg per tablet Sig: Take 1 tablet by mouth 2 (two) times a day Dispense: 20 tablet Refill: 0 Dede Nelson NP CHEF documented in this encounter Plan of Treatment Not on file documented as of this encounter Visit Diagnoses Diagnosis Acute non-recurrent sinusitis, unspecified location- Primary documented in this encounter Care Teams [employer] Crew Boss Relationship Specialty Start Date End Date No, Physician PCP - General 08/06/22 documented as of this encounter
--- OUTSIDE RECORDS SUMMARY | 2024-03-15 14:55 | XMS_ITS | Encounter Summary ---
Author Organization [facility] Address [address] [place] [address] Care Team Providers Care Retail Product Advisor Name Role Phone No, Physician Primary Care Provider Encounter Details Date Type Department Care Team (Late st Contact Info) Description 12/21/2022 E-Visit [facility] Virtual Care [address] [place] [address] Reyna Alex MD [address] [place] [address] [address] [place] [address] Your Medications Social History Tobacco Use Types [...] 2 (two) times a day 20 tablet 12/21/2022 01/15/2023 documented in this encounter Miscellaneous Notes * E-Visit Note - Reyna Alex MD - 12/21/2022 3:41 PM CDT Mariam Lea 12/21/2022 E-Visit Submission Subjective/Objective: Mariam Lea contacted the office today via e-visit for Sinusitis. C/o 1-4 week h/o nasal congestion, headache, sneezing. States she's blowing out mostly thick yellowgreen mucus. Denies fevers. States it feels like previous sinus infections. States she is . The patient-submitted questionnaire was assessed for pertinent information and the patient's problem list, medication list, and allergies were reviewed as part of the e-visit. The chart was updated to identify any changes in these areas. Assessment: Diagnosis Plan 1. Acute non-recurrent sinusitis, unspecified location Plan: Augmentin erx'ed to pharmacy. If any problems or questions or no improvement of symptoms in the next few days, please f/u w/ PCP. If symptoms worsen, go to the ED. The patient was given information regarding any new medication(s) prescribed, if applicable, as well as any rcsd-plp-[id number] remedies. She was given instructions regarding follow up and timeframe if symptoms worsen or don???t improve. These instructions were included in the [employer] message reply tothe patient. Patient Instructions were included in the message reply to patient. My total encounter time on 12/21/2022 was 5 minutes which was spent in the activities documented inthe note. New Medications Ordered This Visit amoxicillin-clavulanate (Augmentin) 875-125 mg per tablet Sig: Take 1 tablet by mouth 2 (two) times a day Dispense: 20 tablet Refill: 0 Reyna Alex MD documented in this encounter Plan of Treatment Not on file documented as of this encounter Visit Diagnoses Diagnosis Acute non-recurrent sinusitis, unspecified location- Primary documented in this encounter Care Teams Retail Product Advisor Relationship Specialty Start Date End Date No, Physician PCP - General 08/06/22 documented as of this encounter
--- OUTSIDE RECORDS SUMMARY | 2024-03-15 14:55 | XMS_ITS | Encounter Summary ---
Author Organization [facility] Healthcare Address [address] [place] [address] Care Team Providers Care Project Associate Name Role Phone No, Physician Primary Care Provider [phone] Reason for Visit * Auth/Cert (Routine) Specialty Diagnoses / Procedures Referred By Contnohelia t Referred To Contact Diagnoses state Puerperal endometritis, condition or complication Endometritis following delivery 39 weeks gestation of Procedures NO Referral ID Status Reason Start Date Expiration Date Visits Re quested Visits Authorized [id number] 1 1 Encounter Details Date Type Department Care Team (Latest Contact Info) Description 02/19/2023 5:37 PM SOCIAL WORKER - 02/21/2023 2:30 PM SOCIAL WORKER Hospital Encounter [address] [address] Zachery Sullivan MD [address] [place] [id number] state (Primary Dx); Puerperal endometritis, condition or complication Discharge Disposition: Discharge to home or self [...] Sign Reading Time Taken Comments Blood Pressure 108/64 02/21/2023 2:28 PM SOCIAL WORKER Pulse 80 02/21/2023 2:28 PM SOCIAL WORKER Temperature 37.1 ??C (98.7 ??F) 02/21/2023 12:[address] Respiratory Rate 16 02/21/2023 8:30 AM SOCIAL WORKER Oxygen Saturation 99% 02/21/2023 1:26 PM SOCIAL WORKER Inhaled Oxygen Concentration - - Weight - - Height - - Body Mass Index - - documented in this encounter Discharge Summaries * Vivi Mclean, FABIAN - 02/21/2023 10:11 AM CST Obstetrical Discharge Form Admit date: 02/19/2023 Admitting Physician: Zachery Sullivan MD Indication for Admission: Patient was admitted for heavy bleeding with abdominal and perineal pain.. /Para: EDC: Estimated Date of Delivery: 02/23/23 Gestational Age:39w5d Antepartum complications: anemia Delivery Type: spontaneous vaginal delivery Date of : 02/13/23 Time of : 1351 Intrapartum complications: None Hospital Course: Patient was readmitted for endometritis. Her hospital course was uncomplicated. By day# 2 she was fully ambulatory, voiding without difficulty and her pain was controlled on po pain meds. She denies further pain. No fevers noted. She feels ready for discharge. Routine pp precautions and endometritis instructions were reviewed and all questions answered to her satisfaction. Discharge Exam: Lungs: clear all tellez, respirations even and nonlabored Cardiac: RRR Abdomen: Tenderness:none,Fundus: firm Extremities: no edema, negative tasha's sign Labs: Recent Labs Lab Units 02/20/23 1235 02/20/23 0446 02/19/23 1851 WBC K/cumm 7.2 13.6* 17.1* HEMOGLOBIN g/dL 9.1* 8.8* 12.1 Recent Labs Lab Units 02/19/23 1851 AST Units/L 26 ALT Units/L 59* Blood type: A Positive Rh Immune globulin given: No Discharge Diagnoses: s/p vaginal delivery Discharge Condition: Stable Discharge Date: 02/21/2023 Discharge Time: 10:12 AM Discharge Provider: Vivi Mclean CNM A/P: PPD# 8 s/p vaginal delivery- readmit for endometritis Routine advances 2. Baby: home with family 3. MOF: Formula feeding 4. A Positive 5. Discharge to home Follow up with [facility]2 Delivery Providers Delivering clinician: weeks. Instructed to return with heavy bleeding, severe pain, or fever. Discharge Meds: Your medication list START taking these medications ferrous sulfate 325 mg (65 mg of elemental iron) tablet 65 mg of elemental iron, oral, Daily with breakfast fluconazole 150 mg tablet Repeat in 7 days if symptoms persist. Commonly known as: DIFLUCAN ibuprofen 600 mg tablet 600 mg, oral, Every 6 hours PRN Commonly known as: ADVIL,MOTRIN metroNIDAZOLE 500 mg tablet 500 mg, oral, 2 times daily Commonly known as: FLAGYL vit 92-pusr-ltthu-dha 27mg iron- 800 mcg-250 mg capsule 1 tablet, oral, Daily CONTINUE taking these medications acetaminophen 325 mg tablet 650 mg, oral, Every 6 hours PRN Commonly known as: TYLENOL albuterol HFA 90 mcg/actuation inhaler 2 puffs, inhalation, Every 4 hours PRN Commonly known as: PROVENTIL HFA,VENTOLIN HFA,PROAIR HFA amoxicillin-clavulanate 875-125 mg per tablet 1 tablet, oral, 2 times daily Commonly known as: Augmentin docusate sodium 100 mg capsule 100 mg, oral, 2 times daily PRN Commonly known as: COLACE fluticasone propionate 220 mcg/actuation inhaler 1 puff, inhalation, 2 times daily, Rinse mouth with water after use. Do not swallow. Commonly known as: FLOVENT HFA STOP taking these medications methylPREDNISolone 4 mg Dosepack Commonly known as: MEDROL DOSEPACK metoclopramide 10 mg tablet Commonly known as: REGLAN ondansetron 4 mg tablet Commonly known as: MORGAN Mclean CNM Date: 02/21/2023 Time: 10:12 AM Cosigned by Coni Perry DO at 02/21/2023 12:03 PM SOCIAL WORKER AL WORKER AL WORKER documented in this encounter Discharge Instructions * Discharge Instructions* Vivi Mclean CNM - 02/21/2023 10:11 AM SOCIAL WORKER Take antibiotics as prescribed. Recommend probiotics daily. Return with fever, heavy bleeding, or severe pain. AL WORKER * Attachments The following attachments cannot be sent through Care Everywhere. * Breast Care for the Non-breast Feeding Woman (AfterCare(R) Instructions(ER/ED)) (Welsh) * Endometritis (AfterCare(R) Instructions(ER/ED)) (Welsh) documented in this encounter Medications at Time of Discharge acetaminophen (TYLENOL) 325 mg tablet Take 2 tablets (650 mg total) by mouth every 6 (six) hours as needed for pain 4 albuterol HFA (PROVENTIL HFA,VENTOLIN HFA,PROAIR HFA) 90 mcg/actuation inhaler Inhale 2 puffs every 4 (four) hours as needed for wheezing 1 each 1 02/10/2023 3 amoxicillin-clav ulanate (Augmentin) 875-125 mg per tablet [...] total) by mouth daily with breakfast 4 fluconazole (DIFLUCAN) 150 mg tablet Repeat in 7 days if symptoms persist. 2 tablet 02/21/2023 3 fluticasone propionate (FLOVENT HFA) 220 mcg/actuation inhaler Inhale 1 puff 2 (two) times a day Rinse mouth with water after use. Do not swallow. 1 each 02/10/2023 3 ibuprofen (ADVIL,MOTRIN) 600 mg tablet Take 1 tablet (600 mg total) by mouth every 6 (six) hours as needed for pain, fever or headaches 40 tablet 02/21/2023 4 metroNIDAZOLE (FLAGYL) 500 mg tablet Take 1 tablet (500 mg total) by mouth 2 (two) times a day for 7 days 14 tablet 02/21/2023 3 vit 20-tffw-uflrc-dh a 27mg iron- 800 mcg-250 mg capsule Take 1 tablet by mouth daily 4 documented as of this encounter Ordered Prescriptions Prescription Sig Dispense Quantity Refills Last Filled Start Date End Date fluconazole (DIFLUCAN) 150 mg tablet Repeat in 7 days if symptoms persist. 2 tablet 02/21/2023 3 metroNIDAZOLE (FLAGYL) 500 mg tablet Take 1 tablet (500 mg total) by mouth 2 (two) times a day for 7 days 14 tablet 02/21/2023 3 ibuprofen (ADVIL,MOTRIN) 600 mg tablet Take 1 tablet (600 mg total) by mouth every 6 (six) hours as needed for pain, fever or headaches 40 tablet 02/21/2023 4 documented in this encounter Discharge Disposition Disposition Code Departure Means Destination Discharge to home or self care documented in this encounter Progress Notes * Vivi Roberts RN - 02/21/2023 2:30 PM CST [facility] Discharge Note Discharged to: Home Accompanied by: Vivi Roberts RN Discharged Per: Ambulatory Discharge indications reviewed. Questions encouraged. Verbalized understanding. AL WORKER * Disha Velásquez [facility] - 02/21/2023 1:27 AM CST Images from the original note were not included. Aminoglycoside Pharmacokinetics Consult and Monitoring Mariam Lea is a 22 y.o. female patient admitted to [id number]. Pharmacy service has been consulted for gentamicin dosing for pelvic infection post delivery . Recent Dosing History: Date Dosing Regimen Administration Time(s) Pertinent Levels (mcg/mL) Time (hrs) Between Last Dose & Level Comments 02/19 90 mg q8h 02/20 Cont same 0500 (050) 1300 () 2100 () 0446 (0.4) Trough=<0.3(2019) Peak=5.3(2149) Level was drawn??? 02/21 0500() 1300() 2100() Tr@2029 Peak@2129 Dosing Considerations: Body Habitus: Height: Ht Readings from Last 1 Encounters: 02/10/23 160 cm (5' 3 ) Weight: Wt Readings from Last 3 Encounters: 02/10/23 64.2 kg (141 lb 8.6 oz) 01/25/23 59.9 kg (132 lb) 01/15/23 61.2 kg (135 lb) Thurston body weight: 52.4 kg (115 lb 8.3 oz) Adjusted ideal body weight: 57.1 kg (125 lb 14.8 oz) Dosing weight selection based on dosing strategy: adjusted body weight if actual body weight is >20% over ideal body weight Renal Function: Lab Results Component Value Date CREATININE 0.40 (L) 02/20/2023 CREATININE 0.50 (L) 02/19/2023 CREATININE 0.30 (L) 01/31/2023 CREATININE 0.30 (L) 12/25/2022 CREATININE 0.40 (L) 08/19/2022 CREATININE 0.40 (L) 08/12/2022 CREATININE 0.40 (L) 08/06/2022 Baseline SCr (mg/dL) prior to admission/aminoglycoside therapy: 0.5 Dialysis: N/A Dosing Interval/Nomogram: Does patient have any contraindications for extended interval dosing? No contraindications identified --> If no contraindications, will utilize the Hi Nomogram for follow up level/dosing interval assessment (see below). Assessment/Plan 1) Renal assessment --- Estimated Creatinine Clearance: 143.5 mL/min (A) (by Cockcroft-Gault based on SCr of 0.5 mg/dL (L)). Renal status: Renal function appears stable at this time. Will continue to monitor closely. 2) Dosing plan --- For initial dosing, will utilize adjusted body weight. Drug/dosing strategy: gentamicin - traditional Lanse Nomogram utilized? No Level/interval assessment: Goal therapeutic peak/trough levels per policy for traditional dosing. Latest trough <0.3 Level/interval assessment per Lanse nomogram for extended interval dosing Plan: Will continue current regimen of 90 mg q 8 h. Current regimen gives 90 mg based on dosing weight. 3) Anticipated duration of therapy --- To be determined 4) Lab monitoring --- Next level: Peak 02/21 @ 2130 Trough 02/21 @ 2029 Next SCr: daily 5) Pharmacy will continue to follow patient's clinical progress throughout admission. Will continueto monitor labs and adjust doses accordingly. Thank you for the opportunity to participate in the care of this patient. AL WORKER * Suly Walters [facility] - 02/19/2023 8:48 PM CST Images from the original note were not included. Aminoglycoside Pharmacokinetics Consult and Monitoring Mariam Lea is a 22 y.o. female patient admitted to [id number]. Pharmacy service has been consulted for gentamicin dosing for pelvic infection post delivery . Recent Dosing History: Date Dosing Regimen Administration Time(s) Pertinent Levels (mcg/mL) Time (hrs) Between Last Dose & Level Comments 02/19 90 mg q8h 02/20 0500 () 1300 () 2100 () Peak 1400 Trough 1999 Dosing Considerations: Body Habitus: Height: Ht Readings from Last 1 Encounters: 02/10/23 160 cm (5' 3 ) Weight: Wt Readings from Last 3 Encounters: 02/10/23 64.2 kg (141 lb 8.6 oz) 01/25/23 59.9 kg (132 lb) 01/15/23 61.2 kg (135 lb) Thurston body weight: 52.4 kg (115 lb 8.3 oz) Adjusted ideal body weight: 57.1 kg (125 lb 14.8 oz) Dosing weight selection based on dosing strategy: adjusted body weight if actual body weight is >20% over ideal body weight Renal Function: Lab Results Component Value Date CREATININE 0.50 (L) 02/19/2023 CREATININE 0.30 (L) 01/31/2023 CREATININE 0.30 (L) 12/25/2022 CREATININE 0.40 (L) 08/19/2022 CREATININE 0.40 (L) 08/12/2022 CREATININE 0.40 (L) 08/06/2022 CREATININE 0.50 (L) 06/20/2022 Baseline SCr (mg/dL) prior to admission/aminoglycoside therapy: 0.5 Dialysis: N/A Dosing Interval/Nomogram: Does patient have any contraindications for extended interval dosing? No contraindications identified --> If no contraindications, will utilize the Lanse Nomogram for follow up level/dosing interval assessment (see below). Assessment/Plan 1) Renal assessment --- Estimated Creatinine Clearance: 143.5 mL/min (A) (by Cockcroft-Gault based on SCr of 0.5 mg/dL (L)). Renal status: Renal function appears stable at this time. Will continue to monitor closely. 2) Dosing plan --- For initial dosing, will utilize adjusted body weight. Drug/dosing strategy: gentamicin - traditional Lanse Nomogram utilized? No Level/interval assessment: Goal therapeutic peak/trough levels per policy for traditional dosing Level/interval assessment per Lanse nomogram for extended interval dosing Plan: Will start with 1.5 mg/kg per pelvic infection indication . Current regimen gives 90 mg/kg based on dosing weight. 3) Anticipated duration of therapy --- To be determined 4) Lab monitoring --- Next level: Peak 02/20 @ 1400 Trough 02/20 @ 2000 Next SCr: daily 5) Pharmacy will continue to follow patient's clinical progress throughout admission. Will continueto monitor labs and adjust doses accordingly. Thank you for the opportunity to participate in the care of this patient. AL WORKER documented in this encounter H&P Notes * Asia Dewey MD - 02/20/2023 11:07 AM CST OB HISTORY AND PHYSICAL CC: abdominal pain after giving HPI: Mariam is a 22 yr old who is PP day 7 from a normal vaginal delivery at [facility]. She had a normal post course and was discharged on PPD 1. She does report that right afterthe , she experienced some increased bleeding and received a rectal medication and pitocin. She states that about 3 days ago, she passed a large fist sized blood clot. She noted the bleeding slow ed down after that. She then developed low abdominal and pelvic pain that was initially crampy, butthen increased to become more sharp and intense. The pain was exacerbated by walking and would radiate to her low back. She also noted chills and fever with the max temp being 102. She also noted a foul smelling discharge. There was also a headache and decreased appetite during this time. She was , however stopped due to just feeling so sick and being in pain. Patient was seen and evaluated by Dr Chavis in the [facility] and did bedside ultrasound without reported concern for retained products. ROS: +fever, +fatigue, no skin rash, +chills, +headache, denies sore throat or nasal congestion, nochest pain, no cough or shortness of breath, +abdominal pain, +decr appetite, no vomiting, no diarrhea, +low back pain, no extremity swelling, no breast pain or redness, no depression or anxiety Past medical history: depression Past surgical history: breast augmentation, tonsilectomy Allergies: ciprofloxin, levofloxin Medications: ibuprofen Physical exam: General: young appearing, thin female who is lying in bed, appears pale and tired. Pt is alert VS: Tmax 100.4 Tc 97.4 HR 83 105/67 O2 sat 100% Neck: supple Breasts: engorged bilaterally, no erythema Respiratory: nonlabored CV: regular rate and rhythm Abdomen: soft and nontender Fundus: firm, below umbilicus, +tender Lochia: rubra Extremities: no edema Lab: WBC 17K admit, 13.6 K this am Hb 8.8 Hct 30.0 platelets 276K lactate 1.2 A/P endometritis following normal vaginal delivery, with fundal tenderness, fever, chills. Pt is admitted for IV abx therapy with amp, gent, clinda. She initially received Rocephin on admit. Seems to be responding with decreased fever and WBC. Noted initial Hb was 12 and now 8.8, felt this initial hemoglobin to be falsely elevated due to dehydration. Discussed goal of treatment with triple abx for 48 hrs afebrile, then transition to oral augmentin. Will give fluconazole to prevent yeast. Discussed breast feeding and engorgement, will offer pump if desires to continue breast feeding or ice packs for comfort if not. All questions answered regarding her plan of care AL WORKER documented in this encounter Nursing Notes * Vivi Roberts RN - 02/21/2023 1:11 PM CST All belongings with patient. AL WORKER documented in this encounter ED Notes * Autumn Chavis MD - 02/19/2023 7:57 PM CST HPI No chief complaint on file. Pt. Is a 22 y/o @ 39 3/7 wks who presents with c/o severe pelvic and back pain since yesterday after passing a baseball-sized clot. The bleeding has slowed down a lot since then. She had a vaginal delivery 6 days ago with no lacerations and no complications. The bleeding has slowed down a lot since then. The pain is in her lower abdomen and her butt and feels like someone is twisting and scraping her insides. She has taken ibuprofen and Tylenol without relief. Patient History: Patient Active Problem List Diagnosis Date Noted ??? 39 weeks gestation of 02/19/2023 ??? Routine general medical examination at a health care facility 09/05/2022 Past Medical History: Diagnosis Date ??? Asthma ??? Breast tumor Past Surgical History: Procedure Laterality Date ??? BREAST BIOPSY Right ??? TONSILECTOMY, ADENOIDECTOMY, BILATERAL MYRINGOTOMY AND TUBES No family history on file. Social History Tobacco Use ??? Smoking status: Never ??? Smokeless tobacco: Not on file Substance and Sexual Activity ??? Alcohol use: Never ??? Drug use: Never ??? Sexual activity: Yes Partners: Male Social History Social History Narrative ??? Not on file Review of Systems Review of Systems Constitutional: Positive for activity change, chills and fever. HENT: Negative. Eyes: Negative. Respiratory: Negative. Cardiovascular: Negative. Gastrointestinal: Positive for abdominal pain. Genitourinary: Positive for pelvic pain and vaginal bleeding. Musculoskeletal: Positive for back pain. Skin: Negative. Allergic/Immunologic: Negative. Neurological: Negative. Hematological: Negative. Psychiatric/Behavioral: Negative. Physical Exam ED Triage Vitals [02/19/23 1739] Temp Pulse Resp BP SpO2 (!) 38 ??C (100.4 ??F) 104 22 109/69 98 % Temp src Heart Rate Source Patient Position BP Location FiO2 (%) Oral -- -- -- -- Height Height Method Weight Weight Method -- -- -- -- Physical Exam Vitals reviewed. Constitutional: Appearance: She is ill-appearing and diaphoretic. HENT: Head: Normocephalic and atraumatic. Eyes: Extraocular Movements: Extraocular movements intact. Pupils: Pupils are equal, round, and reactive to light. Cardiovascular: Rate and Rhythm: Tachycardia present. Pulmonary: Effort: Pulmonary effort is normal. Abdominal: Palpations: There is mass (fundus extremely tender, uu). Tenderness: There is abdominal tenderness. There is guarding. There is no rebound. Comments: Breasts, tender, lumpy, no streaking, no erythema. Genitourinary: General: Normal vulva. Vagina: Vaginal discharge (small amount thick white, scant blood) present. Musculoskeletal: Cervical back: Normal range of motion. Skin: General: Skin is warm. Neurological: General: No focal deficit present. Mental Status: She is alert and oriented to person, place, and time. Psychiatric: Mood and Affect: Mood normal. Behavior: Behavior normal. Thought Content: Thought content normal. Judgment: Judgment normal. MDM Medical Decision Making Amount and/or Complexity of Data Reviewed External Data Reviewed: notes. Details: on 02/14, no lacs, placenta: no pathology. Labs: ordered. Discussion of management or test interpretation with external provider(s): Discussed admission and antibiotic regimen for pt. Discussed labs WBC 17 and lactate 1.5. Risk Prescription drug management. Decision regarding hospitalization. Risk Details: Sepsis work-up A/P: P.t is a 22 y/o @ 6 days with endometritis. 1) Admit 2) Ceftriaxone 1 g IV Q 24 hours, Gentamicin 1.5 mg/kg IV q 8 hours, Clindamycin 900 mg IV q 8 hours 3) D/W Dr. Sullivan ED Course as of 02/19/232014 Time: 02/19 1801 Comment: Pt presents with c/o severe pelvic and back pain since yesterday after passing a baseball-sized clot. The bleeding has slowed down a lot since then. She had a vaginal delivery 6 days ago with no lacerations and no complications. The bleeding has slowed down a lot since then. The pain is inher lower abdomen and her butt and feels like someone is twisting and scraping her insides. She hastaken ibuprofen and Tylenol without relief. By: Autumn Chavis MD Time: 02/20 1812 Comment: Temp: 100.4 Placental pathology: None CBC, CMP lactate, UA, UDS ordered 1 L LR bolus ordered By: Autumn Chavis MD Time: 02/19 1858 Comment: Repeat temp. 99.8 By: Autumn Chavis MD Time: 02/19 1925 Comment: Ceftriaxone 1 g IV Q 24 hours and Metronidazole 500 mg IV Q 8 hours ordered, Ceftriaxone running By: Autumn Chavis MD Time: 02/19 1939 Comment: Case d/w Dr. Sullivan Will hold Metronidazole and add Gentamicin 1.5 mg/kg IV Q 8 hours and Clindamycin 900 mg IV Q 8 hours to the ceftriaxone IV q 24 hours Admitted By: Autumn Chavis MD Final diagnoses: state Puerperal endometritis, condition or complication Autumn Chavis MD 02/23/23 0905 AL WORKER * Regine Connors RN - 02/19/2023 5:30 PM CST 6 days post , presents with perineal pain. [facility] notified, room 36 Regine Connors RN 02/19/23 1731 AL WORKER documented in this encounter Miscellaneous Notes * Plan of Care - Haven Guerra RN - 02/21/2023 6:23 AM CST Problem: Activity: Goal: Risk for activity intolerance will decrease Outcome: Progressing Problem: Lack of Knowledge: Goal: Knowledge of disease or condition will improve Outcome: Progressing Goal: Ability to state and carry out methods to decrease the pain will improve Outcome: Progressing Problem: Nutritional: Goal: Nutritional status will be supported Outcome: Progressing Problem: Fluid Volume: Goal: Maintenance of adequate hydration will improve Outcome: Progressing Problem: Health Behavior: Goal: Ability to state signs and symptoms to report to health care provider will improve Outcome: Progressing Problem: Physical Regulation: Goal: Complications related to the disease process, condition or treatment will be avoided or minimized Outcome: Progressing Goal: Ability to maintain clinical measurements within normal limits will improve Outcome: Progressing Problem: Sensory: Goal: Ability to identify factors that increase the pain will improve Outcome: Progressing Goal: Ability to notify healthcare provider of pain before it becomes unmanageable or unbearable will improve Outcome: Progressing Goal: Pain level will decrease Outcome: Progressing Goals: Clinical Goals for the Shift: pain management rest and abx Summary: AL WORKER documented in this encounter Plan of Treatment Not on file documented as of this encounter Procedures Procedure Name Priority Date/Time Associated Diagnosis Comments GENTAMICIN LEVEL PEAK Timed 02/20/2023 9:50 PM SOCIAL WORKER GENTAMICIN LEVEL TROUGH Timed 02/20/2023 8:20 PM SOCIAL WORKER EGFR Timed 02/20/2023 12:35 PM SOCIAL WORKER DIFFERENTIAL AUTO Timed 02/20/2023 12: 35 PM SOCIAL WORKER CBC WITH AUTO DIFFERENTIAL Timed 02/20/2023 12:35 PM SOCIAL WORKER BASIC METABOLIC PANEL Timed 02/20/2023 12:35 PM SOCIAL WORKER LACTATE Timed 02/20/2023 4:46 AM SOCIAL WORKER DIFFERENTIAL AUTO Routine 02/20/2023 4:4 6 AM SOCIAL WORKER CBC WITH AUTO DIFFERENTIAL Routine 02/20/2023 4:46 AM SOCIAL WORKER GENTAMICIN LEVEL PEAK Timed 02/20/2023 4:46 AM SOCIAL WORKER N. GONORRHOEAE/C. TRACHOMATIS AMPLIFICATION STAT 02/19/2023 8:07 PM SOCIAL WORKER VAGINITIS PANEL STAT 02/19/2023 8:07 PM SOCIAL WORKER DRUG SCREEN, URINE L AND D WITH REFLEX CONFIRMATION STAT 02/19/2023 7:40 PM SOCIAL WORKER URINALYSIS AND REFLEX TO MICROSCOPIC AND CULTURE STAT 02/19/2023 7:40 PM SOCIAL WORKER BLOOD CULTURE STAT 02/19/2023 7:40 PM SOCIAL WORKER URINALYSIS, MICROSCOPIC ONLY STAT 02/19/2023 7:40 PM SOCIAL WORKER LACTATE STAT 02/19/2023 6:51 PM SOCIAL WORKER EGFR STAT 02/19/2023 6:51 PM SOCIAL WORKER DIFFERENTIAL AUTO STAT 02/19/2023 6:5 1 PM SOCIAL WORKER CBC WITH AUTO DIFFERENTIAL STAT 02/19/2023 6:51 PM SOCIAL WORKER BLOOD CULTURE STAT 02/19/2023 6:51 PM SOCIAL WORKER COMPREHENSIVE METABOLIC PANEL STAT 02/19/2023 6:51 PM SOCIAL WORKER documented in this encounter Results * Gentamicin level peak Please draw 30 mins after the dose is infused (02/20/2023 9:50 PM SOCIAL WORKER) Gentamicin peak 5.3 3.0 - 10.0 mcg/mL ALBERTO DELUCA Comment: Interpretive Data Greater than or equal to 18yrs: Therapeutic Range: ?UTI/GPC synergy: 3-5 mcg/mL ?Systemic illness: 6-8 mcg/mL ?Sepsis: 8-10 mcg/mL GPC synergy refers to the synergistic effect of ??aminoglycosides with other antibiotics in treating infections caused by gram positive cocci (e.g. Enterococcus). Current Interpretive Data was last revised on 2020. Blood 02/20/2023 9:50 PM SOCIAL WORKER 02/21/2023 12:31 AM SOCIAL WORKER Narrative ALBERTO - 02/21/2023 1:07 AM SOCIAL WORKER Please draw 30 mins after the dose is infused us Zachery Sullivan MD LAB BLOOD ORDERABLES Fin al Result ALBERTO DELUCA [address] [facility] [place] [address] * Gentamicin level trough Before 4th dose (02/20/2023 8:20 PM SOCIAL WORKER) Gentamicin trough <0.3 <=2.0 mcg/mL ALBERTO DELUCA Comment: Interpretive Data Greater than or equal to 18yrs: Therapeutic Range: ?UTI/GPC synergy: 0-1 mcg/mL ?Systemic illness: 0-1 mcg/mL ?Sepsis: 0-2 mcg/mL GPC synergy refers to the synergistic effect of ??aminoglycosides with other antibiotics in treating infections caused by gram positive cocci (e.g. Enterococcus). Current Interpretive Data was last revised on 2020. Blood 02/20/2023 8:20 PM SOCIAL WORKER 02/20/2023 10:22 PM SOCIAL WORKER Narrative ALBERTO - 02/21/2023 12:24 AM SOCIAL WORKER Before 4th dose us Autumn Chavis MD LAB BLOOD ORDERABLES Fin al Result ALBERTO [address] [facility] [place] [address] * eGFR (02/20/2023 12:35 PM SOCIAL WORKER) eGFR 142 mL/min/1. 73 m2 ALBERTO Comment: Interpretive Data [...] was last reviewed 2021. Testing performed by: [address] [address] Blood 02/20/2023 12:3 5 PM SOCIAL WORKER 02/20/2023 12:52 PM SOCIAL WORKER us Zachery Sullivan MD LAB BLOOD ORDERABLES Fin al Result [facility] [address] [facility] [place] [address] * Differential, auto (02/20/2023 12:35 PM SOCIAL WORKER) Neutrophil abs 5.3 1.7 - 6.5 K/cumm ALBERTO Comment:Testing performed by : [address] [address] Imm gran abs 0.1 0.0 - 0.1 K/cumm ALBERTO Comment:Testing performed by : [address] [address] Lymphocyte abs 1.0 0.8 - 3.3 K/cumm ALBERTO Comment:Testing performed by : [address] [address] Monocyte abs 0.7 0.2 - 0.8 K/cumm ALBERTO Comment:Testing performed by : [address] [address] Eosinophil abs 0.1 0.0 - 0.5 K/cumm ALBERTO Comment:Testing performed by : [address] [address] Basophil abs 0.0 0.0 - 0.1 K/cumm ALBERTO Comment:Testing performed by : [address] [address] Neutrophil pct 73.6 % ALBERTO Comment: Interpretive Data Percent cell count reference ranges are not reported, since discordance with absolute values may lead to misinterpretation of CBC data. Current Interpretive Data was last revised on 2017. Testing performed by: [address] [address] Imm gran pct 0.8 % [facility] Comment: Interpretive Data Percent cell count reference ranges are not reported, since discordance with absolute values may lead to misinterpretation of CBC data. Current Interpretive Data was last revised on 2017. Testing performed by: [address] [address] Lymphocyte pct 14.1 % [facility] Comment: Interpretive Data Percent cell count reference ranges are not reported, since discordance with absolute values may lead to misinterpretation of CBC data. Current Interpretive Data was last revised on 2017. Testing performed by: [address] [address] Monocyte pct 9.4 % [facility] Comment: Interpretive Data Percent cell count reference ranges are not reported, since discordance with absolute values may lead to misinterpretation of CBC data. Current Interpretive Data was last revised on 2017. Testing performed by: [address] [address] Eosinophil pct 1.7 % [facility] Comment: Interpretive Data Percent cell count reference ranges are not reported, since discordance with absolute values may lead to misinterpretation of CBC data. Current Interpretive Data was last revised on 2017. Testing performed by: [address] [address] Basophil pct 0.4 % [facility] Comment: Interpretive Data Percent cell count reference ranges are not reported, since discordance with absolute values may lead to misinterpretation of CBC data. Current Interpretive Data was last revised on 2017. Testing performed by: [address] [address] Blood 02/20/2023 12:3 5 PM SOCIAL WORKER 02/20/2023 12:52 PM SOCIAL WORKER us Zachery Sullivan MD LAB BLOOD ORDERABLES Fin al Result ALBERTO [address] [facility] Department [place] [address] * (ABNORMAL) Basic metabolic panel (02/20/2023 12:35 PM SOCIAL WORKER) Sodium 140 135 - 145 mmol/L ALBERTO Comment:Testing performed by : [address] [address] Potassium, pl 3.6 3.3 - 4.9 mmol/L ALBERTO Comment:Testing performed by : [address] [address] Chloride 106 97 - 110 mmol/L ALBERTO Comment:Testing performed by : [address] [address] CO2 24 22 - 32 mmol/L ALBERTO Comment:Testing performed by : [address] [address] Anion gap 10 2 - 15 mmol/L ALBERTO Comment:Testing performed by : [address] [address] BUN 7 6 - 25 mg/dL ALBERTO Comment:Testing performed by : [address] [address] Creatinine 0.40(L) 0.60 - 1.10 mg/dL ALBERTO Comment:Testing performed by : [address] [address] Glucose 97 70 - 199 mg/dL ALBERTO Comment: Interpretive [...] was last revised 2022. Testing performed by: [address] [address] Calcium 9.0 8.5 - 10.3 mg/dL ALBERTO Comment:Testing performed by : [address] [address] Blood 02/20/2023 12:3 5 PM SOCIAL WORKER 02/20/2023 12:52 PM SOCIAL WORKER us Zachery Sullivan MD LAB BLOOD ORDERABLES Fin al Result [facility] [address] [facility] Department [place] [address] * (ABNORMAL) CBC with auto differential (02/20/2023 12:35 PM SOCIAL WORKER) [facility] WBC 7.2 3.8 - 9.9 K/cumm ALBERTO DELUCA Comment:Testing performed by : [address] [address] Hgb 9.1(L) 11.9 - 15.5 g/dL ALBERTO DELUCA Comment: Interpretive Data A reference range for this assay has not been established for patients with an unknown legal sex. Please refer to the laboratory test catalog for established sex-specific reference intervals. Current interpretive data was last revised on 2023. Testing performed by: [address] [address] Hct 30.2(L) 35.6 - 45.5 % ALBERTO Comment: Interpretive Data A reference range for this assay has not been established for patients with an unknown legal sex. Please refer to the laboratory test catalog for established sex-specific reference intervals. Current interpretive data was last revised on 2023. Testing performed by: [address] [address] Plt 305 150 - 400 K/cumm ALBERTO Comment:Testing performed by : [address] [address] MPV 10.3 9.1 - 12.3 fL ALBERTO DELUCA Comment:Testing performed by : [address] [address] RBC 3.96 3.90 - 5.20 M/cumm ALBERTO DELUCA Comment: Interpretive Data A reference range for this assay has not been established for patients with an unknown legal sex. Please refer to the laboratory test catalog for established sex-specific reference intervals. Current interpretive data was last revised on 2023. Testing performed by: [facility], [address] [place] [address]., [address] MCV 76.3(L) 81.3 - 96.4 fL ALBERTO Comment:Testing performed by : [address] [address] MCH 23.0(L) 27.1 - 33.3 pg ALBERTO Comment:Testing performed by : [address] [address] MCHC 30.1(L) 32.3 - 35.7 g/dL ALBERTO Comment:Testing performed by : [address] [address] RDW CV 16.4(H) 11.1 - 14.9 % ALBERTO Comment:Testing performed by : [address] [address] RDW SD 44.5 35.7 - 48.1 fL ALBERTO Comment:Testing performed by : [address] [address] NRBC abs 0.00 0.00 - 0.01 K/cumm ALBERTO Comment:Testing performed by : [address] [address] Blood 02/20/2023 12:3 5 PM SOCIAL WORKER 02/20/2023 12:52 PM SOCIAL WORKER us Zachery Sullivan MD LAB BLOOD ORDERABLES Fin al Result ALBERTO [address] [facility] Department of Laboratories [place], [place] [id number] * (ABNORMAL) Differential, auto (02/20/2023 4:46 AM SOCIAL WORKER) [facility] Neutrophil abs 10.9(H) 1.7 - 6.5 K/cumm ALBERTO Comment:Testing performed by : [address] [address] Imm gran abs 0.1 0.0 - 0.1 K/cumm ALBERTO Comment:Testing performed by : [address] [address] Lymphocyte abs 1.5 0.8 - 3.3 K/cumm ALBERTO Comment:Testing performed by : [address], [place]., [address] Monocyte abs 1.0(H) 0.2 - 0.8 K/cumm ALBERTO Comment:Testing performed by : [address], [place]., [address] Eosinophil abs 0.2 0.0 - 0.5 K/cumm ALBERTO Comment:Testing performed by : [address], [place]., [address] Basophil abs 0.0 0.0 - 0.1 K/cumm ALBERTO Comment:Testing performed by : [address] [address] Neutrophil pct 79.9 % ALBERTO Comment: Interpretive Data Percent cell count reference ranges are not reported, since discordance with absolute values may lead to misinterpretation of CBC data. Current Interpretive Data was last revised on 2017. Testing performed by: [address] [address] Imm gran pct 0.8 % [facility] Comment: Interpretive Data Percent cell count reference ranges are not reported, since discordance with absolute values may lead to misinterpretation of CBC data. Current Interpretive Data was last revised on 2017. Testing performed by: [address] [address] Lymphocyte pct 10.7 % [facility] Comment: Interpretive Data Percent cell count reference ranges are not reported, since discordance with absolute values may lead to misinterpretation of CBC data. Current Interpretive Data was last revised on 2017. Testing performed by: [address] [address] Monocyte pct 7.2 % [facility] Comment: Interpretive Data Percent cell count reference ranges are not reported, since discordance with absolute values may lead to misinterpretation of CBC data. Current Interpretive Data was last revised on 2017. Testing performed by: [address] [address] Eosinophil pct 1.1 % ALBERTO Comment: Interpretive Data Percent cell count reference ranges are not reported, since discordance with absolute values may lead to misinterpretation of CBC data. Current Interpretive Data was last revised on 2017. Testing performed by: [address] [address] Basophil pct 0.3 % ALBERTO Comment: Interpretive Data Percent cell count reference ranges are not reported, since discordance with absolute values may lead to misinterpretation of CBC data. Current Interpretive Data was last revised on 2017. Testing performed by: [address] [address] Blood 02/20/2023 4:46 AM SOCIAL WORKER 02/20/2023 4:57 AM SOCIAL WORKER Zachery Sullivan MD LAB BLOOD ORDERABLES Fin al Result Performing Organization Address [facility] Co de Phone Number [address] [place] [employer] [address] * Lactate (02/20/2023 4:46 AM SOCIAL WORKER) Lactate 1.2 0.7 - 2.0 mmol/L ALBERTO Comment:Testing performed by : [address] [address] Blood 02/20/2023 4:46 AM SOCIAL WORKER 02/20/2023 4:57 AM SOCIAL WORKER Autumn Chavis MD LAB BLOOD ORDERABLES Fin al Result Performing Organization Address City/[facility] Co de Phone Number [address] [place] [place] [address] * (ABNORMAL) CBC with auto differential (02/20/2023 4:46 AM SOCIAL WORKER) WBC 13.6(H) 3.8 - 9.9 K/cumm ALBERTO Comment:Testing performed by : [address] [address] Hgb 8.8(L) 11.9 - 15.5 g/dL ALBERTO Comment: Interpretive Data A reference range for this assay has not been established for patients with an unknown legal sex. Please refer to the laboratory test catalog for established sex-specific reference intervals. Current interpretive data was last revised on 2023. Testing performed by: [address] [address] Hct 30.0(L) 35.6 - 45.5 % [facility] Comment: Interpretive Data A reference range for this assay has not been established for patients with an unknown legal sex. Please refer to the laboratory test catalog for established sex-specific reference intervals. Current interpretive data was last revised on 2023. Testing performed by: [address] [address] Plt 276 150 - 400 K/cumm [facility] Comment:Testing performed by : [address] [address] MPV 10.2 9.1 - 12.3 fL ALBERTO Comment:Testing performed by : [address] [address] RBC 3.94 3.90 - 5.20 M/cumm [facility] Comment: Interpretive Data A reference range for this assay has not been established for patients with an unknown legal sex. Please refer to the laboratory test catalog for established sex-specific reference intervals. Current interpretive data was last revised on 2023. Testing performed by: [address] [address] MCV 76.1(L) 81.3 - 96.4 fL [facility] Comment:Testing performed by : [address] [address] MCH 22.3(L) 27.1 - 33.3 pg [facility] Comment:Testing performed by : [address] [address] MCHC 29.3(L) 32.3 - 35.7 g/dL ALBERTO Comment:Testing performed by : [address] [address] RDW CV 16.3(H) 11.1 - 14.9 % ALBERTO Comment:Testing performed by : [address] [address] RDW SD 44.2 35.7 - 48.1 fL ALBERTO Comment:Testing performed by : [address] [address] NRBC abs 0.00 0.00 - 0.01 K/cumm ALBERTO Comment:Testing performed by : [address], [address] Blood 02/20/2023 4:46 AM SOCIAL WORKER 02/20/2023 4:57 AM SOCIAL WORKER Zachery Sullivan MD LAB BLOOD ORDERABLES Fin al Result Performing Organization Address [facility] de Phone Number [place] [address] [facility] [place] [address] * (ABNORMAL) Gentamicin level peak After third dose (02/20/2023 4:46 AM SOCIAL WORKER) [facility] Gentamicin peak 0.4(L) 3.0 - 10.0 mcg/mL ALBERTO Comment: Interpretive Data Greater than or equal to 18yrs: Therapeutic Range: ?UTI/GPC synergy: 3-5 mcg/mL ?Systemic illness: 6-8 mcg/mL ?Sepsis: 8-10 mcg/mL GPC synergy refers to the synergistic effect of ??aminoglycosides with other antibiotics in treating infections caused by gram positive cocci (e.g. Enterococcus). Current Interpretive Data was last revised on 2020. Blood 02/20/2023 4:46 AM SOCIAL WORKER 02/20/2023 6:42 AM SOCIAL WORKER Narrative ALBERTO - 02/20/2023 8:37 AM SOCIAL WORKER After third dose Autumn Chavis MD LAB BLOOD ORDERABLES Fin al Result Performing Organization Address [facility] Co de Phone Number [place] [address] [facility] [place] [employer] [address] * N. gonorrhoeae/C. trachomatis Amplification Endocervical (02/19/2023 8:07 PM SOCIAL WORKER) C. trachomatis Not Detected Not Detected ALBERTO Comment:Testing performed by : [address] [address] N. gonorrhoeae Not Detected Not Detected ALBERTO Comment: Interpretive Data This assay detects Chlamydia trachomatis and Neisseria gonorrhoeae by nucleic acid amplification testing (NAAT). This assay has been cleared by the [place] Food and Drug administration. The performance characteristics of this test have been verified by the [facility]. The performance characteristics of this test have not been evaluated in individuals less than 14 years of age. Current Interpretive Data last revised 2023. Testing performed by: [address] [address] Endocervical (None) 02/20/20 8:07 PM SOCIAL WORKER 02/19/2023 8:10 PM SOCIAL WORKER us Autumn Chavis MD LAB MICROBIOLOGY - [facility] AL ORDERABLES Final Result [facility] [address] [facility] Department [place] [address] * (ABNORMAL) Vaginitis panel Vaginal (02/19/2023 8:07 PM SOCIAL WORKER) Pathologist [facility] Tammy DNA probe Not Detected Not Detected ALBERTO DELUCA Comment:Testing performed by : [address] [address] Gardnerella DNA probe Detected(A) Not Detected ALBERTO DELUCA Comment:Testing performed by : [address] [address] Trichomonas DNA probe Not Detected Not Detected ALBERTO Comment: Interpretive Data Testing performed by [facility] via Affirm VPIII Microbial Identification Test, [...] last revised on 2020. Testing performed by: [address] [address] Vaginal 02/19/2023 8:07 PM SOCIAL WORKER 02/19/2023 8:10 PM SOCIAL WORKER Autumn Chavis MD LAB MICROBIOLOGY - GENER AL ORDERABLES Final Result Performing Organization Address [facility] Co de Phone Number [address] [place] [address] * (ABNORMAL) Urinalysis, microscopic only (02/19/2023 7:40 PM SOCIAL WORKER) WBC, ur 6-10(A) 0 - 5 /HPF ALBERTO Comment:Testing performed by : [address] [address] RBC, ur 11-20(A) 0 - 2 /HPF ALBERTO Comment:Testing performed by : [address] [address] Epithelial cells, squamous, ur 11-20(A) 0 - 5 /HPF ALBERTO Comment:Testing performed by : [address] [address] Mucous, ur Present(A) ALBERTO Comment:Testing performed by : [address] [address] Culture Reflex Comment Reflex conditions for urine culture (WBC >10) not met. ALBERTO Comment:Testing performed by : [address] [address] Urine, clean voided 02/19/2023 7:40 PM SOCIAL WORKER 02/19/2023 8:11 PM SOCIAL WORKER Autumn Chavis MD LAB URINE ORDERABLES Fin al Result Performing Organization Address [facility] Co de Phone Number [facility] [address] [facility] [place] [address] * Blood culture Blood (02/19/2023 7:40 PM SOCIAL WORKER) Report Final Report: No growth ALBERTO DELUCA Comment:Testing performed by : [facility], [address] [place]., [address] Blood 02/19/2023 7:40 PM SOCIAL WORKER 02/19/2023 11:10 PM SOCIAL WORKER Narrative ALBERTO YOSI - 02/24/2023 7:00 AM SOCIAL WORKER Collection->Peripheral 1. ?Blood cultures are incubated for 4 days on a continuously monitored blood culture system. The first report of a negative culture is issued within 24 hours of receipt of the specimen in the laboratory. 2. ?Positive culture results are reported as soon as they are detected. 3. ?The most important factor for detection of microbes in the setting of bloodstream infection is the volume of blood submitted for culture. Failure to collect an optimal blood volume can result in false negative blood cultures. For pediatric patients, the recommended blood volume to collect is 1 mL of blood per year of patient age (up to 20 mL) per blood culture set. For adult patients, 20 mL of blood, divided equally between aerobic and anaerobic blood culture bottles, is recommended for each blood culture set. 4. ?For blood cultures with Gram-positive cocci, a rapid molecular test for organism identification may be performed using the Verigene Gram-Positive Blood Culture Assay. This assay detects microbial DNA in positive blood culture broth via hybridization of target DNA to capture oligonucleotides on a microarray. This assay has been cleared by the [place] Food and Drug Administration and its performance characteristics have been verified by the [facility]biology Laboratory. 5. ?For questions about this culture, contact the Microbiology Laboratory at [phone]. Interpretive data was last revised on 2019. us Autumn Chavis MD LAB MICROBIOLOGY - [facility] AL ORDERABLES Final Result ALBERTO DELUCA [address] [facility] Department [place] [address] * Drug Screen, Urine L and D with Reflex Confirmation (02/19/2023 7:40 PM SOCIAL WORKER) [facility] Amphetamine, ur Not Detected CutOff 500ng/mL [facility] Comment: Interpretive Data - Amphetamines: ??Samples containing greater than 500 ng/mL d-methamphetamine ??or other cross-reacting amphetamine compounds are reported as positive. ??Amphetamine immunoassays are subject to significant false positive rates due to cross-reactivity of non-amphetamine drugs. Confirmatory testing required for definitive results. Current Interpretive Data was last reviewed 2022. Testing performed by: [address] [address] Barbiturates, ur Not Detected CutOff 200ng/mL [facility] Comment: Interpretive Data - Barbiturates: ??Samples containing greater than 200 ng/mL secobarbital or other cross-reacting barbiturate compounds are reported as positive. ??False positive and false negative results are possible. Confirmatory testing required for definitive results. Current Interpretive Data was last reviewed 2022. Testing performed by: [address] [address] Benzodiazepines, ur Not Detected CutOff 100ng/mL [facility] Comment: Interpretive Data - Benzodiazepines: ??Samples containing greater than 100 ng/mL nordiazepam or other cross-reacting compounds are reported as positive. False positive and false negative results are possible. Confirmatory testing required for definitive results. Current Interpretive Data was last reviewed 2022. Testing performed by: [address] [address] Cannabinoids, ur Not Detected CutOff 50 ng/mL [facility] Comment: Interpretive Data - Cannabinoids: ??Samples containing greater than 50 ng/mL delta-9 THC -COOH or other cross-reacting compounds are reported as positive. ??False positive and false negative results are possible. ??Confirmatory testing required for definitive results. Current Interpretive Data was last reviewed 2022. Testing performed by: [address] [address] Cocaine, ur Not Detected CutOff 150ng/mL [facility] Comment: Interpretive Data - Cocaine: ??Samples containing greater than 150 ng/mL benzoylecgonine or other cross-reacting compounds are reported as positive. False positive and false negative results are possible. Confirmatory testing required for definitive results. Current Interpretive Data was last reviewed 2022. Testing performed by: [address] [address] Fentanyl, Ur Not Detected Cutoff 1 ng/mL [facility] Comment: Interpretive Data - Fentanyl: ??Samples containing greater than 1 ng/mL fentanyl or other cross-reacting fentanyl compounds are reported as positive. ??False positive and false negative results are possible. Confirmatory testing required for definitive results. Current Interpretive Data was last reviewed 2022. Testing performed by: [address] [address] Methadone, ur Not Detected CutOff 300ng/mL [facility] Comment: Interpretive Data - Methadone: ??Samples containing greater than 300 ng/mL d,l-methadone or other cross-reacting compounds are reported as positive. ??False positive and false negative results are possible. Confirmatory testing required for definitive results. Current Interpretive Data was last reviewed 2022. Testing performed by: [address] [address] Opiates, ur Not Detected CutOff 300ng/mL [facility] Comment: Interpretive Data - Opiates: ??Samples containing greater than 300 ng/mL morphine or other cross-reacting compounds are reported as positive. ??False positive and false negative results are possible. Confirmatory testing required for definitive results. Current Interpretive Data was last reviewed 2022. Testing performed by: [address] [address] Oxycodone, ur Not Detected CutOff 100ng/mL [facility] Comment: Interpretive Data - Oxycodone: ??Samples containing greater than 100 ng/mL oxycodone or other cross-reacting compounds are reported as ??positive. ??False positive and false negative results are possible. Confirmatory testing required for definitive results. Current Interpretive Data was last reviewed 2022. Testing performed by: [address] [address] Phencyclidine, ur Not Detected CutOff 25 ng/mL [facility] Comment: Interpretive Data - Phencyclidine: ??Samples containing greater than 25 ng/mL phencyclidine or other cross-reacting compounds are reported as positive. ??False positive and false negative results are possible. Confirmatory testing required for definitive results. Current Interpretive Data was last reviewed 2022. Testing performed by: [address] [address] Urine Creatinine 48 mg/dL ALBERTO Comment: Interpretive Data Urine Creatinine: < 10 mg/dL is extremely dilute = or > 10 but < 20 mg/dL is dilute = or > 20 mg/dL is normal Current Interpretive Data was last revised on 2017. Testing performed by: [address] [address] Urine 02/19/2023 7:40 PM SOCIAL WORKER 02/19/2023 8:11 PM SOCIAL WORKER Narrative ALBERTO - 02/19/2023 8:54 PM SOCIAL WORKER Drug of Abuse screening is performed by immunoassay for medical purposes only. ??This is not to be used for Pain Management purposes. ??If Detected, confirmation testing will be performed for Amphetamines, Barbiturates, Benzodiazepines, Cannabinoids, Cocaine, Fentanyl, Methadone, Opiates, Oxycodone or Phencyclidine. us Autumn Chavis MD LAB URINE ORDERABLES Fin al Result ALBERTO [address] [facility] Department [place] [address] * (ABNORMAL) Urinalysis reflex to microscopic and culture Urine, clean voided (02/19/2023 7:40 PM SOCIAL WORKER) Color, ur Yellow Yellow ALBERTO Comment:Testing performed by : [address] [address] Clarity, ur Clear Clear ALBERTO Comment:Testing performed by : [address] [address] Specific gravity, ur 1.012 1.003 - 1.030 ALBERTO Comment:Testing performed by : [address] [address] pH, urine 8.0 ALBERTO Comment: Interpretive Data ? Urine pH is affected by diet, medications, systemic acid-base disturbances, and renal tubular function. ??pH may affect urinary stone formation. ??For example, urine pH below 6.0 may help reduce the tendency for calcium phosphate stones and pH greater than 6.0 may reduce the tendency for uric acid stone formation. Source: [facility] [employer] Current Interpretive Data was last revised on 2017 Testing performed by: [facility], [address] [place] [address], [place]., [address] Protein, ur ql Negative Negative ALBERTO Comment:Testing performed by : [address], [place]., [address] Glucose, ur ql Negative Negative ALBERTO Comment:Testing performed by : [address], [place]., [address] Ketones, ur Negative Negative ALBERTO Comment:Testing performed by : [address], [place]., [address] Bilirubin, ur Negative Negative ALBERTO Comment:Testing performed by : [address], [place]., [address] Blood, ur 2+(A) Negative ALBERTO Comment:Testing performed by : [address], [place]., [address] Urobilinogen, ur <2.0 <2.0 mg/dL ALBERTO Comment:Testing performed by : [address], [place]., [address] Nitrite, ur Negative Negative ALBERTO Comment:Testing performed by : [address], [place]., [address] Leukocyte esterase, ur 1+(A) Negative ALBERTO Comment:Testing performed by : [address] [address] UA reflex comment Reflex to microscopic UA will be performed. ALBERTO Comment:Testing performed by : [address], [place]., [address] Urine, clean voided 02/19/2023 7:40 PM SOCIAL WORKER 02/19/2023 8:11 PM SOCIAL WORKER us Autumn Chavis MD LAB MICROBIOLOGY - GENER AL ORDERABLES Final Result ALBERTO [address] [facility] Department [place] [address] * eGFR (02/19/2023 6:51 PM SOCIAL WORKER) [facility] eGFR 134 mL/min/1. 73 m2 ALBERTO Comment: Interpretive Data [...] was last reviewed 2021. Testing performed by: [facility], [address] [place] [address]., [address] Blood 02/19/2023 6:51 PM SOCIAL WORKER 02/19/2023 7:04 PM SOCIAL WORKER us Autumn Chavis MD LAB BLOOD ORDERABLES Fin al Result ALBERTO [address] [facility] Department [place] [address] * (ABNORMAL) Differential, auto (02/19/2023 6:51 PM SOCIAL WORKER) [facility] Neutrophil abs 14.9(H) 1.7 - 6.5 K/cumm [facility] Comment:Testing performed by : [address] [address] Imm gran abs 0.1 0.0 - 0.1 K/cumm [facility] Comment:Testing performed by : [address] [address] Lymphocyte abs 1.2 0.8 - 3.3 K/cumm [facility] Comment:Testing performed by : [address] [address] Monocyte abs 0.7 0.2 - 0.8 K/cumm [facility] Comment:Testing performed by : [address] [address] Eosinophil abs 0.1 0.0 - 0.5 K/cumm [facility] Comment:Testing performed by : [address] [address] Basophil abs 0.1 0.0 - 0.1 K/cumm [facility] Comment:Testing performed by : [address] [address] Neutrophil pct 87.1 % [facility] Comment: Interpretive Data Percent cell count reference ranges are not reported, since discordance with absolute values may lead to misinterpretation of CBC data. Current Interpretive Data was last revised on 2017. Testing performed by: [address] [address] Imm gran pct 0.8 % [facility] Comment: Interpretive Data Percent cell count reference ranges are not reported, since discordance with absolute values may lead to misinterpretation of CBC data. Current Interpretive Data was last revised on 2017. Testing performed by: [address] [address] Lymphocyte pct 6.9 % [facility] Comment: Interpretive Data Percent cell count reference ranges are not reported, since discordance with absolute values may lead to misinterpretation of CBC data. Current Interpretive Data was last revised on 2017. Testing performed by: [address] [address] Monocyte pct 4.3 % [facility] Comment: Interpretive Data Percent cell count reference ranges are not reported, since discordance with absolute values may lead to misinterpretation of CBC data. Current Interpretive Data was last revised on 2017. Testing performed by: [address] [address] Eosinophil pct 0.6 % ALBERTO DELUCA Comment: Interpretive Data Percent cell count reference ranges are not reported, since discordance with absolute values may lead to misinterpretation of CBC data. Current Interpretive Data was last revised on 2017. Testing performed by: [address] [address] Basophil pct 0.3 % ALBERTO DELUCA Comment: Interpretive Data Percent cell count reference ranges are not reported, since discordance with absolute values may lead to misinterpretation of CBC data. Current Interpretive Data was last revised on 2017. Testing performed by: [address] [address] Blood 02/19/2023 6:51 PM SOCIAL WORKER 02/19/2023 7:04 PM SOCIAL WORKER us Autumn Chavis MD LAB BLOOD ORDERABLES Fin al Result Performing Organization Address City/State/[facility] Co de Phone Number ALBERTO DELUCA [address] [facility] Department of Laboratories [place], [place] [id number] * Blood culture Blood (02/19/2023 6:51 PM SOCIAL WORKER) Report Final Report: No growth ALBERTO DELUCA Comment:Testing performed by : [facility], [address] [place]., [address] Blood 02/19/2023 6:51 PM SOCIAL WORKER 02/19/2023 9:17 PM SOCIAL WORKER Narrative ALBERTO DELUCA - 02/25/2023 8:40 AM SOCIAL WORKER Collection->Peripheral 1. ?Blood cultures are incubated for 4 days on a continuously monitored blood culture system. The first report of a negative culture is issued within 24 hours of receipt of the specimen in the laboratory. 2. ?Positive culture results are reported as soon as they are detected. 3. ?The most important factor for detection of microbes in the setting of bloodstream infection is the volume of blood submitted for culture. Failure to collect an optimal blood volume can result in false negative blood cultures. For pediatric patients, the recommended blood volume to collect is 1 mL of blood per year of patient age (up to 20 mL) per blood culture set. For adult patients, 20 mL of blood, divided equally between aerobic and anaerobic blood culture bottles, is recommended for each blood culture set. 4. ?For blood cultures with Gram-positive cocci, a rapid molecular test for organism identification may be performed using the wavecatchigene Gram-Positive Blood Culture Assay. This assay detects microbial DNA in positive blood culture broth via hybridization of target DNA to capture oligonucleotides on a microarray. This assay has been cleared by the [place] Food and Drug Administration and its performance characteristics have been verified by the [facility] Microbiology Laboratory. 5. ?For questions about this culture, contact the Microbiology Laboratory at [phone]. Interpretive data was last revised on 2019. Autumn Chavis MD LAB MICROBIOLOGY - GENER AL ORDERABLES Final Result Performing Organization Address City/[facility] Co de Phone Number [facility] [address] [facility] [place] [address] * Lactate (02/19/2023 6:51 PM SOCIAL WORKER) Pathologist [facility] Lactate 1.5 0.7 - 2.0 mmol/L ALBERTO Comment:Testing performed by : [facility], [address] [place] [address]., [address] Blood 02/19/2023 6:51 PM SOCIAL WORKER 02/19/2023 7:09 PM SOCIAL WORKER Autumn Chavis MD LAB BLOOD ORDERABLES Fin al Result Performing Organization Address City/[facility] Co de Phone Number [place] [id number] [facility] [place] [address] * (ABNORMAL) Comprehensive metabolic panel (02/19/2023 6:51 PM SOCIAL WORKER) Pathologist [facility] Sodium 137 135 - 145 mmol/L ALBERTO Comment:Testing performed by : [address], [place]., [address] Potassium, pl 3.7 3.3 - 4.9 mmol/L ALBERTO Comment:Testing performed by : [address], [place]., [address] Chloride 97 97 - 110 mmol/L ALBERTO Comment:Testing performed by : [address], [place]., [address] CO2 23 22 - 32 mmol/L ALBERTO Comment:Testing performed by : [address], [place]., [address] Anion gap 17(H) 2 - 15 mmol/L ALBERTO Comment:Testing performed by : [address], [place]., [address] BUN 8 6 - 25 mg/dL ALBERTO Comment:Testing performed by : [address], [place]., [address] Creatinine 0.50(L) 0.60 - 1.10 mg/dL ALBERTO Comment:Testing performed by : [address], [place]., [address] Glucose 95 70 - 199 mg/dL [facility] Comment: Interpretive Data Fasting glucose >/= 126 [...] was last revised 2022. Testing performed by: [address] [address] Calcium 10.8(H) 8.5 - 10.3 mg/dL ALBERTO Comment:Testing performed by : [address], [place]., [address] Bilirubin, total 0.4 0.1 - 1.2 mg/dL ALBERTO Comment:Testing performed by : [address] [address] Protein, pl 9.3(H) 6.5 - 8.5 g/dL ALBERTO DELUCA Comment:Testing performed by : [address] [address] Albumin 4.8 3.5 - 5.0 g/dL ALBERTO DELUCA Comment:Testing performed by : [address] [address] Alk phos 184(H) 40 - 130 Units/L ALBERTO DELUCA Comment:Testing performed by : [address] [address] ALT 59(H) 7 - 45 Units/L ALBERTO DELUCA Comment:Testing performed by : [address] [address] AST 26 10 - 45 Units/L ALBERTO DELUCA Comment:Testing performed by : [address] [address] Blood 02/19/2023 6:51 PM SOCIAL WORKER 02/19/2023 7:04 PM SOCIAL WORKER us Autumn Chavis MD LAB BLOOD ORDERABLES Fin al Result ALBERTO [address] [facility] Department of Laboratories [place], [place] [id number] * (ABNORMAL) CBC with auto differential (02/19/2023 6:51 PM SOCIAL WORKER) [facility] WBC 17.1(H) 3.8 - 9.9 K/cumm ALBERTO DELUCA Comment:Testing performed by : [address] [address] Hgb 12.1 11.9 - 15.5 g/dL ALBERTO DELUCA Comment: Interpretive Data A reference range for this assay has not been established for patients with an unknown legal sex. Please refer to the laboratory test catalog for established sex-specific reference intervals. Current interpretive data was last revised on 2023. Testing performed by: [address] [address] Hct 39.9 35.6 - 45.5 % ALBERTO DELUCA Comment: Interpretive Data A reference range for this assay has not been established for patients with an unknown legal sex. Please refer to the laboratory test catalog for established sex-specific reference intervals. Current interpretive data was last revised on 2023. Testing performed by: [address] [address] Plt 428(H) 150 - 400 K/cumm ALBERTO Comment:Testing performed by : [address] [address] MPV 10.5 9.1 - 12.3 fL ALBERTO Comment:Testing performed by : [address] [address] RBC 5.33(H) 3.90 - 5.20 M/cumm ALBERTO Comment: Interpretive Data A reference range for this assay has not been established for patients with an unknown legal sex. Please refer to the laboratory test catalog for established sex-specific reference intervals. Current interpretive data was last revised on 2023. Testing performed by: [address] [address] MCV 74.9(L) 81.3 - 96.4 fL ALBERTO Comment:Testing performed by : [address] [address] MCH 22.7(L) 27.1 - 33.3 pg ALBERTO Comment:Testing performed by : [address] [address] MCHC 30.3(L) 32.3 - 35.7 g/dL ALBERTO Comment:Testing performed by : [address] [address] RDW CV 17.2(H) 11.1 - 14.9 % ALBERTO Comment:Testing performed by : [address] [address] RDW SD 43.2 35.7 - 48.1 fL ALBERTO Comment:Testing performed by : [address] [address] NRBC abs 0.00 0.00 - 0.01 K/cumm ALBERTO DELUCA Comment:Testing performed by : [facility], [address] [place] [address], [place]., [address] Blood 02/19/2023 6:51 PM SOCIAL WORKER 02/19/2023 7:04 PM SOCIAL WORKER us Autumn Chavis MD LAB BLOOD ORDERABLES Fin al Result ALBERTO DELUCA [address] [facility] Department [place] [address] documented in this encounter Visit Diagnoses Diagnosis 39 weeks gestation of - Primary state Routine follow-up Puerperal endometritis, condition or complication Endometritis following delivery documented in this encounter Admitting Diagnoses Diagnosis 39 weeks gestation of Endometritis following delivery documented in this encounter Administered Medications Inactive Administered Medications - up to 3 most recent administrations Medication Order MAR Action Action Date Dose Rate Site acetaminophen (TYLENOL) tablet 975 mg 975 mg (rounded from 1,000 mg), oral, Every 6 hours PRN, fever, 1st line for pain, Starting on Sat02/19/23 at 2144 Given 02/19/2023 10:12 PM SOCIAL WORKER 975 mg vkdqgebhrf-gyhistxcpxnsj-jk ffeine (ESGIC) 50-325-40 mg per tablet 1 tablet 1 tablet, oral, 4 times daily PRN, headaches, Starting on Sat02/20/23 at 1151 Given 02/20/2023 1:09 PM SOCIAL WORKER 1 tablet cefTRIAXone (ROCEPHIN) 1,000 mg/10 mL in sterile water (premix) 1,000 mg 1,000 mg, intravenous, at 600 mL/hr, Administer over 1 Minutes, Every 24 hours scheduled, First dose on Sat02/19/23 at 1945, Indications: Abdominal/Pelvic InfectionIndications:Abdomi nal/Pelvic Infection Given 02/19/2023 7:16 PM SOCIAL WORKER 1,000 mg 600 mL/hr clindamycin (CLEOCIN) 900 mg/50 mL in dextrose 5% (premix) 900 mg 900 mg, intravenous, at 100 mL/hr, Administer over 30 Minutes, Every 8 hours scheduled, First dose on Sat02/19/23 at 2200, Indications: Abdominal/Pelvic InfectionIndications:Abdomi nal/Pelvic Infection New Bag 02/21/2023 1:56 PM SOCIAL WORKER 900 mg 100 mL/hr New Bag 02/21/2023 5:45 AM SOCIAL WORKER 900 mg 100 mL/hr New Bag 02/20/2023 9:56 PM SOCIAL WORKER 900 mg 100 mL/hr docusate sodium (COLACE) capsule 100 mg 100 mg, oral, 2 times daily, First dose on Sat02/20/23 at 2230, Indications: constipationIndications:constipation Given 02/21/2023 11:47 AM SOCIAL WORKER 100 mg Given 02/20/2023 10:28 PM SOCIAL WORKER 100 mg fluconazole (DIFLUCAN) tablet 200 mg 200 mg, oral, Once, On Sat02/20/23 at 1230, For 1 dose, Indications: Prophylaxis, MedicalIndications:Prophylaxis, Medical Given 02/20/2023 1:09 PM SOCIAL WORKER 200 mg gentamicin (GARAMYCIN) 90 mg in sodium chloride 0.9% 100 mL IVPB 90 mg (rounded from 85.65 mg = 1.5 mg/kg ? 57.1 kg Adjusted weight), intravenous, at 204.5 mL/hr, Administer over 30 Minutes, Every 8 hours, First dose on Sat02/19/23 at 2100, Indications: Abdominal/Pelvic InfectionIndications:Abdominal/Pe lvic Infection New Bag 02/21/2023 1:07 PM SOCIAL WORKER 90 mg 204.5 mL/hr New Bag 02/21/2023 5:05 AM SOCIAL WORKER 90 mg 204.5 mL/hr New 02/20/2023 8:47 PM SOCIAL WORKER 90 mg 204.5 mL/hr hydrOXYzine (ATARAX) tablet 25 mg 25 mg, oral, Every 6 hours PRN, sleep and nausea, Starting on Sat02/19/23 at 2147 ibuprofen (ADVIL,MOTRIN) tablet/capsule 600 mg 600 mg, oral, Every 6 hours PRN, 1st line for pain, Starting on Sat02/19/23 at 2144, Do not crush, break, or open. ketorolac (TORADOL) 30 mg/mL (1 mL) injection 30 mg 30 mg, intravenous, Every 8 hours PRN, other, pain, Starting on Sat02/20/23 at 0245, For 2 days, For Adult IV push, administer over 15 seconds Given 02/20/2023 10:36 AM SOCIAL WORKER 30 mg Given 02/20/2023 3:04 AM SOCIAL WORKER 30 mg Lactated Ringer's (LR) bolus 1,000 mL 1,000 mL, intravenous, As needed, for nonreassuring heart rate, variable decelerations, or late deceleration., Starting on Sat02/19/23 at 1823, For 1 dose New Bag 02/19/2023 6:35 PM SOCIAL WORKER 1,000 mL Lactated Ringer's (LR) infusion 50 mL/hr, intravenous, Continuous, Starting on Sat02/19/23 at 2100 New Bag 02/21/2023 5:05 AM SOCIAL WORKER 50 mL/hr 50 mL/hr New Bag 02/20/2023 5:48 AM SOCIAL WORKER 125 mL/hr 125 mL/hr New Bag 02/19/2023 8:33 PM SOCIAL WORKER 125 mL/hr 125 mL/hr ondansetron (ZOFRAN) injection 4 mg 4 mg, intravenous, Administer over 2 Minutes, Every 4 hours PRN, nausea, vomiting, Starting on Sat02/19/23 at 2145 oxyCODONE (ROXICODONE) tablet 5 mg 5 mg, oral, Every 4 hours PRN, 2nd line for pain, Starting on Sat02/19/23 at 2145, Indications: PainIndications:Pain Given 02/19/2023 10:12 PM SOCIAL WORKER 5 mg documented in this encounter Discontinued Medications Medication Sig Discontinue Reason Start Date End Da te metoclopramide (REGLAN) 10 mg tablet Take 1 tablet (10 mg total) by mouth every 6 (six) hours Stop Taking at Discharge 08/12/2022 02/21/2023 ondansetron (ZOFRAN) 4 mg tablet Take 1 tablet (4 mg total) by mouth every 6 (six) hours Stop Taking at Discharge 01/15/2023 02/21/2023 methylPREDNISolone (MEDROL DOSEPACK) 4 mg Dosepack Take as directed on package Stop Taking at Discharge 02/10/2023 02/21/2023 documented as of this encounter Active and Recently Administered Medications Times are shown in SOCIAL WORKER. Scheduled Medication Order 02/19/2023 02/20/2023 02/21/2023 cefTRIAXone (ROCEPHIN) 1,000 mg/10 mL in sterile water (premix) 1,000 mg (CANCELED) 1,000 mg, intravenous, at 600 mL/hr, Administer over 1 Minutes, Every 24 hours scheduled, First dose on Sat02/19/23 at 1945, Indications: Abdominal/Pelvic Infection 191 (Given - Provider: Marilin Batista, RN) 1020 (Hold - Provider: Josette Galdamez RN - Reason: Other - Comment: reuest time change with pharmacy since given at 02/19 at 1916, dosage is 24 hours) clindamycin (CLEOCIN) 900 mg/50 mL in dextrose 5% (premix) 900 mg 900 mg, intravenous, at 100 mL/hr, Administer over 30 Minutes, Every 8 hours scheduled, First dose on Sat02/19/23 at 2200, Indications: Abdominal/Pelvic Infection 2130 (New Bag - Provider: Marilin Batista RN) 0549 (New Bag - Provider: Lala Avery, TIMOTEO)1353 (New Bag - Provider: Reg Brown RN)2156 (New Bag - Provider: Haven Guerra, TIMOTEO) 0545 (New Bag - Provider: Haven Guerra RN)1356 (New Bag - Provider: Vivi Roberts, TIMOTEO)1428 (Stopped - Provider: Vivi Roberts, TIMOTEO) docusate sodium (COLACE) capsule 100 mg 100 mg, oral, 2 times daily, First dose on Sat02/20/23 at 2230, Indications: constipation 2228 (Given - Provider: Haven Guerra RN) 1147 (Given - Provider: Vivi Roberts, TIMOTEO - Comment: pt request) fluconazole (DIFLUCAN) tablet 200 mg (COMPLETED) 200 mg, oral, Once, On Sat02/20/23 at 1230, For 1 dose, Indications: Prophylaxis, Medical 1309 (Given - Provider: Josette Galdamez, TIMOTEO) gentamicin (GARAMYCIN) 90 mg in sodium chloride 0.9% 100 mL IVPB 90 mg (rounded from 85.65 mg = 1.5 mg/kg ? 57.1 kg Adjusted weight), intravenous, at 204.5 mL/hr, Administer over 30 Minutes, Every 8 hours, First dose on Sat02/19/23 at 2100, Indications: Abdominal/Pelvic Infection 2036 (New Bag - Provider: Marilin Batista RN) 0507 (New Bag - Provider: Lalamariano Avery RN)1316 (New Bag - Provider: Josette Galdamez RN)1999 (Lab Draw - Provider: Suly Walters [facility] - Comment: please draw gentamicin trough prior to hanging dose)204 (New Bag - Provider: Haven Guerra RN)2200 (Lab Draw - Provider: Vicky Valdovinos [facility] - Comment: please draw gentamicin peak 30 minutes after end of infusion) 0505 (New Bag - Provider: Haven Guerra RN)1307 (New Bag - Provider: Vivi Roberts RN)1428 (Stopped - Provider: Vivi Roberts RN) Continuous Medication Order 02/19/2023 02/20/2023 02/21/2023 Lactated Ringer's (LR) infusion 50 mL/hr, intravenous, Continuous, Starting on Sat02/19/23 at 2100 2032 (New Bag - Provider: Marilin Batista RN) 0548 (New Bag - Provider: Lala Avery RN)1022 (Hold - Provider: Josette Galdamez RN - Reason: IV Infusing) 0505 (New Bag - Provider: Haven Guerra RN)1428 (Stopped - Provider: Vivi Roberts RN) PRN Medication Order 02/19/2023 02/20/2023 02/21/2023 acetaminophen (TYLENOL) tablet 975 mg 975 mg (rounded from 1,000 mg), oral, Every 6 hours PRN, fever, 1st line for pain, Starting on Sat02/19/23 at 2144 2212 (Given - Provider: Marilin Batista RN) nyulrfhnjn-yvxmypvyigevt-ux ffeine (ESGIC) 50-325-40 mg per tablet 1 tablet 1 tablet, oral, 4 times daily PRN, headaches, Starting on Sat02/20/23 at 1151 1309 (Given - Provider: Josette Galdamez RN) hydrOXYzine (ATARAX) tablet 25 mg 25 mg, oral, Every 6 hours PRN, sleep and nausea, Starting on Sat02/19/23 at 2147 ibuprofen (ADVIL,MOTRIN) tablet/capsule 600 mg 600 mg, oral, Every 6 hours PRN, 1st line for pain, Starting on Sat02/19/23 at 2144, Do not crush, break, or open. ketorolac (TORADOL) 30 mg/mL (1 mL) injection 30 mg 30 mg, intravenous, Every 8 hours PRN, other, pain, Starting on Sat02/20/23 at 0245, For 2 days, For Adult IV push, administer over 15 seconds 0304 (Given - Provider: Lala Avery, RN)1036 (Given - Provider: Josette Galdamez RN) Lactated Ringer's (LR) bolus 1,000 mL (COMPLETED) 1,000 mL, intravenous, As needed, for nonreassuring heart rate, variable decelerations, or late deceleration., Starting on Sat02/19/23 at 1823, For 1 dose 1835 (New Bag - Provider: Anna Badillo, TIMOTEO) ondansetron (ZOFRAN) injection 4 mg 4 mg, intravenous, Administer over 2 Minutes, Every 4 hours PRN, nausea, vomiting, Starting on Sat02/19/23 at 2145 oxyCODONE (ROXICODONE) tablet 5 mg 5 mg, oral, Every 4 hours PRN, 2nd line for pain, Starting on Sat02/19/23 at 2145, Indications: Pain 2212 (Given - Provider: Marilin Batista RN) documented in this encounter Orders Medications Ordered That Arthur ht Not Have Been Administered Count Last Ordered Date First Ordered Date gentamicin (GARAMYCIN) 90 mg in sodium chloride 0.9% 100 mL IVPB 1 02/19/2023 hydrOXYzine (ATARAX) tablet 25 mg 1 023 ibuprofen (ADVIL,MOTRIN) tab let/capsule 600 mg 1 02/19/2023 Lactated Ringer's (LR) infus ion - ADS Override Pull 1 02/19/2023 metroNIDAZOLE (FLAGYL) 500 m g/100 mL in sodium chloride (premix) 500 mg 1 02/19/2023 ondansetron (ZOFRAN) injection 4 mg 1 02/19 IV Count Last Ordered Date First Orde red Date INSERT PERIPHERAL IV 1 02/19/2023 Admission Count Last Ordered Date First Orde red Date ADMIT TO L&D INPATIENT 1 02/19/2023 Discharge Count Last Ordered Date First Orde red Date DISCHARGE PATIENT 1 02/21/2023 documented in this encounter Care Teams Project Associate Relationship Specialty Start Date End Date No, Physician PCP - General 08/06/22 documented as of this encounter
--- OUTSIDE RECORDS SUMMARY | 2024-03-15 14:55 | XMS_ITS | Encounter Summary ---
Author Organization [facility] Healthcare Address [address] [place] [address] Care Team Providers Care Education Program Specialist Name Role Phone No, Physician Primary Care Provider [phone] Encounter Details Date Type Department Care Team (Late st Contact Info) Description 02/18/2023 Patient Self-Triage [facility] Physicians [facility] [place] [address] Mycsaeidt, Generic Provider [address] [place], [place] [id number] Social History Tobacco Use Types Packs/Day Years [...] on filedocumented in this encounter Care Teams Education Program Specialist Relationship Specialty Start Date End Date No Physician PCP - General 08/06/22 documented as of this encounter
--- OUTSIDE RECORDS SUMMARY | 2024-03-15 14:55 | XMS_ITS | Encounter Summary ---
Author Organization [facility] Healthcare Address [address] [place] [address] Care Team Providers Care Aerial Lineman Name Role Phone No, Physician Primary Care Provider [phone] Reason for Visit * Reason Comments Problem Pt sent from office, pt reports passing out and pt report bp was low and pulse was high Encounter Details Date Type Department Care Team (Late st Contact Info) Description 01/15/2023 1:01 PM CDT - 01/15/2023 3:00 PM CDT Emergency [facility] OB Emergency Department [address] [place], [place] [id number] Coni Perry DO [address] [phone] Vomiting during late (Primary Dx) Discharge Disposition: Discharge to home [...] Sign Reading Time Taken Comments Blood Pressure 118/83 01/15/2023 1:18 PM CDT Pulse 112 01/15/2023 1:21 PM CDT Temperature 36.8 ??C (98.3 ??F) 01/15/2023 1:01 PM CD T Respiratory Rate - - Oxygen Saturation 97% 01/15/2023 1:21 PM CDT Inhaled Oxygen Concentration - - Weight 61.2 kg (135 lb) 01/15/2023 1:01 PM CDT Height 160 cm (5' 3 ) 01/15/2023 1:01 PM CDT Body Mass Index 23.91 01/15/2023 1:01 PM CDT documented in this encounter Discharge Instructions * Attachments The following attachments cannot be sent through Care Everywhere. * at 35 to 38 Weeks (Discharge Care) ([place]) documented in this encounter Medications at Time [...] hours 12 tablet 2 01/15/2023 3 vit [id number] a 27mg iron- 800 mcg-250 mg capsule Take 1 tablet by mouth daily 4 documented as of this encounter Ordered Prescriptions Prescription Sig Dispense Quantity Refills Last Filled Start Date End Date ondansetron (ZOFRAN) 4 mg tablet Take 1 tablet (4 mg total) by mouth every 6 (six) hours 12 tablet 2 01/15/2023 02/21/2023 documented in this encounter Discharge Disposition Disposition Code Departure Means Destination Comment s Discharge to home or self care documented in this encounter ED Notes * Dalia Kim MD - 01/15/2023 2:53 PM CDT HPI Chief Complaint Patient presents with Problem Pt sent from office, pt reports passing out and pt report bp was low and pulse was high CC: nausea/vomiting/syncope Mariam Lea is a 22 y.o. at 34w3d who was getting an ultrasound today at the office then while laying down fainted. She did not injure herself. She says she has been nauseated and vomited earlier today. She says she feels dizzy. She did have breakfast with pancakes concepcion apple juice and milk and has not vomited that. She has been having problems with intermittent nausea and vomiting through this . Current Outpatient Medications: ?? acetaminophen, 650 mg, oral, Q6H PRN ?? ferrous sulfate, 65 mg of elemental iron, oral, Daily with breakfast ? vit [id number], 1 tablet, oral, Daily Allergy: -- Ciprofloxacin -- Other (See comments) and Anaphylaxis -- Rash Rash Pt states I can't breath Pt states I can't breath -- Levofloxacin -- Rash and Anaphylaxis -- Rash Rash Patient History: Patient Active Problem List Diagnosis Date Noted Routine general medical examination at a health care facility 09/05/2022 Past Medical History: Diagnosis Date Asthma Breast tumor Past Surgical History: Procedure Laterality Date TONSILECTOMY, ADENOIDECTOMY, BILATERAL MYRINGOTOMY AND TUBES History reviewed. No pertinent family history. Social History Tobacco Use Smoking status: Never Smokeless tobacco: None Substance and Sexual Activity Alcohol use: Never Drug use: Never Sexual activity: Yes Partners: Male Social History Social History Narrative Not on file Review of Systems Review of Systems Constitutional: Positive for appetite change. Negative for chills and fever. HENT: Negative for ear pain and sore throat. Eyes: Negative for pain and visual disturbance. Respiratory: Negative for cough and shortness of breath. Cardiovascular: Negative for chest pain and palpitations. Gastrointestinal: Negative for abdominal pain and vomiting. Genitourinary: Negative for dysuria and hematuria. Musculoskeletal: Negative for arthralgias and back pain. Skin: Negative for color change and rash. Neurological: Positive for dizziness. Negative for seizures and syncope. All other systems reviewed and are negative. Physical Exam ED Triage Vitals Temp Pulse Resp BP SpO2 01/15/23 1301 01/15/23 1302 -- 01/15/23 1302 01/15/23 1306 36.8 ??C (98.3 ??F) 116 109/74 98 % Temp src Heart Rate Source Patient Position BP Location FiO2 (%) 10/24/23 1301 -- -- -- -- Oral Height Height Method Weight Weight Method 01/15/23 1301 -- 01/15/23 1301 -- 1.6 m (5' 3 ) 61.2 kg (135 lb) Physical Exam Vitals and nursing note reviewed. [...] There is no abdominal tenderness. Comments: Gravid uterus, nonirritable, no rebound/guarding EFM Cat I TOCO: no contractions Musculoskeletal: General: No swelling. Cervical back: Neck supple. Skin: General: Skin is warm and dry. Capillary Refill: Capillary refill takes less than 2 seconds. Neurological: Mental Status: She is alert and oriented to person, place, and time. Psychiatric: Mood and Affect: Mood normal. Recent Results (from the past 8 hour(s)) Urinalysis reflex to microscopic and culture Urine, clean voided Collection Time: 01/15/23 1:40 PM Specimen: Urine, clean voided Result Value Ref Range Color, ur Yellow Yellow Clarity, ur Cloudy (A) Clear Specific gravity, ur 1.016 1.003 - 1.030 pH, urine 7.0 Protein, ur ql 1+ (A) Negative Glucose, ur ql Negative Negative Ketones, ur Negative Negative Bilirubin, ur Negative Negative Blood, ur Negative Negative Urobilinogen, ur 4.0 (A) <2.0 mg/dL Nitrite, ur Negative Negative Leukocyte esterase, ur Negative Negative UA reflex comment Reflex to microscopic UA will be performed. Urinalysis, microscopic only Collection Time: 01/15/23 1:40 PM Result Value Ref Range WBC, ur 0-5 0 - 5 /HPF RBC, ur 0-2 0 - 2 /HPF Epithelial cells, squamous, ur >50 (A) 0 - 5 /HPF Mucous, ur Present (A) Culture Reflex Comment Reflex conditions for urine culture (WBC >10) not met. MDM Medical Decision Making External records are reviewed in Care everywhere and from [facility] 1. Nausea/vomiting/syncopal episode. Per patient and observers report, patient did not injure herself. IV fluids administered along with Zofran 8 mg IV with significant relief of symptoms. Patient istaking p.o. well and feeling much better. Neurological exam normal She is being discharged home. Prescription sent in to pharmacy for Zofran. 2. History of spontaneous in 2019. Patient is not joe and cervical exam was not indicated. 3. well-being. External monitoring is category 1 and reactive. 4. surveillance. Patient is anemic and taking her iron. She has a follow-up appointment in her primary OB office in 2 weeks that she plans to go to. Amount and/or Complexity of Data Reviewed Labs: ordered. Risk Prescription drug management. Final diagnoses: Vomiting during late Dalia Kim MD 01/15/23 1501 documented in this encounter Plan of Treatment Not on file documented as of this encounter Procedures Procedure Name Priority Date/Time Associated Diagnosis Comments URINALYSIS AND REFLEX TO MICROSCOPIC AND CULTURE STAT 01/15/2023 1:40 PM CDT URINALYSIS, MICROSCOPIC ONLY STAT 01/15/2023 1:40 PM CDT documented in this encounter Results * (ABNORMAL) Urinalysis, microscopic only (01/15/2023 1:40 PM CDT) WBC, ur 0-5 0 - 5 /HPF ALBERTO Comment:Testing performed by : [address] [address] RBC, ur 0-2 0 - 2 /HPF ALBERTO Comment:Testing performed by : [address] [address] Epithelial cells, squamous, ur >50(A) 0 - 5 /HPF ALBERTO DELUCA Comment:Testing performed by : [address] [address] Mucous, ur Present(A) ALBERTO Comment:Testing performed by : [address] [address] Culture Reflex Comment Reflex conditions for urine culture (WBC >10) not met. ALBERTO Comment:Testing performed by : [address] [address] Urine, clean voided 01/15/2023 1:40 PM CDT 01/15/2023 1:50 PM CDT us Dalia Kim MD LAB URINE ORDERABLES Final Resul t AL[facility]ERTO [address] [facility] Department [place] [address] * (ABNORMAL) Urinalysis reflex to microscopic and culture Urine, clean voided (01/15/2023 1:40 PM CDT) Color, ur Yellow Yellow ALBERTO Comment:Testing performed by : [address] [address] Clarity, ur Cloudy(A) Clear ALBERTO Comment:Testing performed by : [address] [address] Specific gravity, ur 1.016 1.003 - 1.030 ALBERTO Comment:Testing performed by : [address] [address] pH, urine 7.0 ALBERTO Comment: Interpretive Data ? Urine pH is affected by diet, medications, systemic acid-base disturbances, and renal tubular function. ??pH may affect urinary stone formation. ??For example, urine pH below 6.0 may help reduce the tendency for calcium phosphate stones and pH greater than 6.0 may reduce the tendency for uric acid stone formation. Source: [facility] [employer] Current Interpretive Data was last revised on 2017 Testing performed by: [address] [address] Protein, ur ql 1+(A) Negative ALBERTO Comment:Testing performed by : [address] [address] Glucose, ur ql Negative Negative ALBERTO Comment:Testing performed by : [address] [place]., [address] Ketones, ur Negative Negative ALBERTO Comment:Testing performed by : [address], [place]., [address] Bilirubin, ur Negative Negative ALBERTO DELUCA Comment:Testing performed by : [address], [place]., [address] Blood, ur Negative Negative ALBERTO DELUCA Comment:Testing performed by : [address], [place]., [address] Urobilinogen, ur 4.0(A) <2.0 mg/dL ALBERTO DELUCA Comment:Testing performed by : [address], [place]., [address] Nitrite, ur Negative Negative ALBERTO DELUCA Comment:Testing performed by : [address], [place]., [address] Leukocyte esterase, ur Negative Negative ALBERTO Comment:Testing performed by : [address], [place]., [address] UA reflex comment Reflex to microscopic UA will be performed. ALBERTO Comment:Testing performed by : [address], [place]., [address] Urine, clean voided 01/15/2023 1:40 PM CDT 01/15/2023 1:50 PM CDT us Dalia Kim MD LAB MICROBIOLOGY - GENERAL ORDER LUTHER Final Result AL[facility]ERTO [address] [facility] Department [place] [address] documented in this encounter Visit Diagnoses Diagnosis Vomiting during late - Primary documented in this encounter Administered Medications Inactive Administered Medications - up to 3 most recent administrations Medication Order MAR Action Action Date Dose Rate Site Lactated Ringer's (LR) bolus 1,000 mL 1,000 mL, intravenous, As needed, for nonreassuring heart rate, variable decelerations, or late deceleration., Starting on 01/15/23 at 1322, For 1 dose New Bag 01/15/2023 1:36 PM CDT 1,000 mL Lactated Ringer's (LR) infusion 125 mL/hr, intravenous, Continuous, Starting on Sat01/15/23 at 1400 ondansetron (ZOFRAN) injection 8 mg 8 mg, intravenous, Administer over 2 Minutes, Once, On Sat01/15/23 at 1400, For 1 dose Given 01/15/2023 1:35 PM CDT 8 mg documented in this encounter Discontinued Medications Medication Sig Discontinue Reason Start Date End Da te amoxicillin-clavulanate (Augmentin) 875-125 mg per tablet Take 1 tablet by mouth 2 (two) times a day Therapy completed 12/21/2022 01/15/2023 documented as of this encounter Historical Medications * This list may reflect changes made after this encounter. ferrous sulfate 325 mg (65 mg of elemental iron) tabletIndication s:Iron Deficiency Anemia Take 1 tablet (325 mg total) by mouth daily with breakfast 4 added in this encounter Active and Recently Administered Medications Times are shown in CDT. Scheduled Medication Order 01/13/2023 01/14/2023 01/15/2023 ondansetron (ZOFRAN) injection 8 mg (COMPLETED) 8 mg, intravenous, Administer over 2 Minutes, Once, On Sat01/15/23 at 1400, For 1 dose 1335 (Given - Provid er: Haven Rojas RN) Continuous Medication Order 01/13/2023 01/14/2023 01/15/2023 Lactated Ringer's (LR) infusion 125 mL/hr, intravenous, Continuous, Starting on Sat01/15/23 at 1400 1456 (Not Given - Pr ovider: Haven Rojas RN - Reason: Other - Comment: patient discharged per md order) PRN Medication Order 01/13/2023 01/14/2023 01/15/2023 Lactated Ringer's (LR) bolus 1,000 mL (COMPLETED) 1,000 mL, intravenous, As needed, for nonreassuring heart rate, variable decelerations, or late deceleration., Starting on Sat01/15/23 at 1322, For 1 dose 1336 (New Bag - Prov ider: Haven Rojas RN)1451 (Stopped - Provider: Haven Rojas RN) documented in this encounter Orders Medications Ordered That Arthur ht Not Have Been Administered Count Last Ordered Date First Ordered Date Lactated Ringer's (LR) infusion 1 3 Nursing Count Last Ordered Date First Orde red Date CONTRACTION - MONITORING 1 01/15/2023 MONITORING 1 01/15/2023 IV Count Last Ordered Date First Orde red Date INSERT PERIPHERAL IV 1 01/15/2023 documented in this encounter Care Teams Aerial Lineman Relationship Specialty Start Date End Date No, Physician PCP - General 08/06/22 documented as of this encounter
--- OUTSIDE RECORDS SUMMARY | 2024-03-15 14:55 | XMS_ITS | Encounter Summary ---
Author Organization [facility] Healthcare Address [address] [place] [address] Care Team Providers Care Lead Principal Technical Architect Name Role Phone No, Physician Primary Care Provider [phone] Reason for Visit * Reason Comments Problem Headache, blurry vis ion and seeing sports all starting at 0800 today Encounter Details Date Type Department Care Team (Late st Contact Info) Description 12/25/2022 3:56 PM CDT - 12/25/2022 6:11 PM CDT [facility] Department [address] [place], [place] [id number] Zachery Sullivan MD [address] [place], [place] [address] Headache in , antepartum, third trimester (Primary Dx) Discharge Disposition: Discharge to home [...] Sign Reading Time Taken Comments Blood Pressure 129/78 12/25/2022 5:40 PM CDT Pulse 118 12/25/2022 5:35 PM CDT Temperature - - Respiratory Rate - - Oxygen Saturation - - Inhaled Oxygen Concentration - - Weight - - Height - - Body Mass Index - - documented in this encounter Discharge Instructions * Discharge Instructions* Haven Rojas RN - 12/25/2022 6:01 PM CDT Start taking iorn and follow up with dr at office visit on 01/04/23 regarding anemia * Attachments The following attachments cannot be sent through Care Everywhere. * at 31 to 34 Weeks (Discharge Care) (Latvian) documented in this encounter Medications at Time of Discharge acetaminophen (TYLENOL) 325 mg tablet Take 2 tablets (650 mg total) by mouth every 6 (six) hours as needed for pain 08/12/2023 amoxicillin-clavu lanate (Augmentin) 875-125 mg per tablet Take 1 tablet by mouth 2 (two) times a day 20 tablet 12/21/2022 01/15/2023 metoclopramide (REGLAN) 10 mg tablet Take 1 tablet (10 mg total) by mouth every 6 (six) hours 30 tablet 08/12/2022 02/21/2023 vit 71-egqo-dbsxq-dha 27mg iron- 800 mcg-250 mg capsule Take 1 tablet by mouth daily 08/12/2023 documented as of this encounter Discharge Disposition Disposition Code Departure Means Destination Comment s Discharge to home or self care documented in this encounter ED Notes * Dalia Kim MD - 12/25/2022 5:52 PM CDT HPI Chief Complaint Patient presents with Problem Headache, blurry vision and seeing sports all starting at 0800 today Mariam Lea is a 22 y.o. at 31w3d Who comes in complaining of an intermittent headache with floaters that she rates an 8/10. She reports good movement, denies bleeding or contractions. She is concerned about her history of and some mucus discharge she had today but denies leakage of fluid. 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 Current Outpatient Medications: ? vit 29-khzi-mcpyk-dha, 1 tablet, oral, Daily Allergy: -- Ciprofloxacin [...] use: Never Drug use: Never Sexual activity: None Social History Social History Narrative Not on file Review of Systems Review of Systems Constitutional: Negative for chills and fever. HENT: Negative for ear pain and sore throat. Eyes: Negative for pain and visual disturbance. Respiratory: Negative for cough and shortness of breath. Cardiovascular: Negative for chest pain and palpitations. Gastrointestinal: Negative for abdominal pain and vomiting. Genitourinary: Positive for vaginal discharge. Negative for dysuria and hematuria. Musculoskeletal: Negative for arthralgias and back pain. Skin: Negative for color change and rash. Neurological: Positive for headaches. Negative for seizures and syncope. All other systems reviewed and are negative. Physical Exam ED Triage Vitals Temp Pulse Resp BP SpO2 -- -- -- -- -- Temp src Heart Rate Source Patient Position BP Location FiO2 (%) -- -- -- -- -- Height Height Method Weight Weight Method -- -- -- -- Physical Exam Vitals and nursing note reviewed. [...] rebound/guarding EFM Cat I TOCO: no contractions Genitourinary: Comments: Vaginal discharge normal, white Cervix closed/long/ posterior/high Musculoskeletal: General: No swelling. Cervical back: Neck supple. Skin: General: Skin is warm and dry. Capillary Refill: Capillary refill takes less than 2 seconds. Comments: No edema noted ankles, hands, face Neurological: Mental Status: She is alert. Comments: Alert and oriented X3 Normal patellar reflexes No focal deficit Psychiatric: Mood and Affect: Mood normal. Recent Results (from the past 8 hour(s)) Comprehensive metabolic panel Collection Time: 12/25/22 4:40 PM Result Value Ref Range Sodium 139 135 - 145 mmol/L Potassium, pl 3.5 3.3 - 4.9 mmol/L Chloride 105 97 - 110 mmol/L CO2 21 (L) 22 - 32 mmol/L Anion gap 13 2 - 15 mmol/L BUN 4 (L) 6 - 25 mg/dL Creatinine 0.30 (L) 0.60 - 1.10 mg/dL Glucose 108 70 - 199 mg/dL Calcium 9.1 8.5 - 10.3 mg/dL Bilirubin, total 0.2 0.1 - 1.2 mg/dL Protein, pl 6.5 6.5 - 8.5 g/dL Albumin 3.7 3.5 - 5.0 g/dL Alk phos 93 40 - 130 Units/L ALT 10 7 - 45 Units/L AST 11 10 - 45 Units/L CBC without differential Collection Time: 12/25/22 4:40 PM Result Value Ref Range WBC 10.1 (H) 3.8 - 9.9 K/cumm Hgb 8.9 (L) 11.9 - 15.5 g/dL Hct 28.2 (L) 35.6 - 45.5 % Plt 189 150 - 400 K/cumm MPV 11.2 9.1 - 12.3 fL RBC 3.53 (L) 3.90 - 5.20 M/cumm MCV 79.9 (L) 81.3 - 96.4 fL MCH 25.2 (L) 27.1 - 33.3 pg MCHC 31.6 (L) 32.3 - 35.7 g/dL RDW CV 13.8 11.1 - 14.9 % RDW SD 39.6 35.7 - 48.1 fL NRBC abs 0.00 0.00 - 0.01 K/cumm eGFR Collection Time: 12/25/22 4:40 PM Result Value Ref Range eGFR 152 mL/min/1.73 m2 Urinalysis reflex to microscopic and culture Urine, clean voided Collection Time: 12/25/22 4:42 PM Specimen: Urine, clean voided Result Value Ref Range Color, ur Straw Yellow Clarity, ur Clear Clear Specific gravity, ur 1.006 1.003 - 1.030 pH, urine 6.0 Protein, ur ql Negative Negative Glucose, ur ql Negative Negative Ketones, ur Negative Negative Bilirubin, ur Negative Negative Blood, ur Negative Negative Urobilinogen, ur <2.0 <2.0 mg/dL Nitrite, ur Negative Negative Leukocyte esterase, ur 1+ (A) Negative UA reflex comment Reflex to microscopic UA will be performed. Protein / creatinine ratio, urine, random Collection Time: 12/25/22 4:42 PM Result Value Ref Range Protein, ur, quant 5.0 mg/dL Creatinine Ur 32.4 mg/dL Protein/creatinine ratio 154.3 0.0 - 180.0 mg/g CR Urinalysis, microscopic only Collection Time: 12/25/22 4:42 PM Result Value Ref Range WBC, ur 0-5 0 - 5 /HPF RBC, ur 0-2 0 - 2 /HPF Epithelial cells, squamous, ur 6-10 (A) 0 - 5 /HPF Bacteria, ur 3+ (A) Mucous, ur Present (A) Culture Reflex Comment Reflex conditions for urine culture (WBC >10) not met. MDM Medical Decision Making External records are reviewed 1. Headache in . This appears to be related to her recent extended screen time as she is studying for her master's degree. It was relieved by Tylenol, Reglan, Benadryl but then returned again. There is no evidence of preeclampsia. Her neurological exam is normal. Advised to follow-up with her eye doctor to be evaluated. 2. Vaginal discharge in . There is no evidence of premature rupture of membranes. There isno evidence of labor and her cervix is closed. Patient felt reassured. 3. History of . History of PTL current . Patient is also been treated for labor in this at [facility]. At 28 weeks she reported being tocolyzed with terbutaline and from which she develops tachycardia. She also received steroids. However at this time there is no evidence of labor. 4. History of gestational hypertension with her last . Her blood pressures today are within normal limits and her labs are also normal for preeclampsia. Precautions were reviewed. 5. well-being. External monitoring is category 1 and reactive. 6. surveillance. Labs are notable for probable iron deficiency related anemia. Discussed with patient iron supplementation and to follow-up with her primary OB regarding additional interventions. Patient has an appointment coming up on January 04. Amount and/or Complexity of Data Reviewed Labs: ordered. Risk OTC drugs. Prescription drug management. Final diagnoses: Headache in , antepartum, third trimester Dalia Kim MD 12/25/221801 Dalia Kim MD 12/25/221802 documented in this encounter Plan of Treatment Not on file documented as of this encounter Procedures Procedure Name Priority Date/Time Associated Diagnosis Comments URINALYSIS AND REFLEX TO MICROSCOPIC AND CULTURE STAT 12/25/2022 4:42 PM CDT PROTEIN / CREATININE RATIO, URINE, RANDOM STAT 12/25/2022 4:42 PM CDT URINALYSIS, MICROSCOPIC ONLY STAT 12/25/2022 4:42 PM CDT EGFR STAT 12/25/2022 4:40 PM CDT CBC WITHOUT DIFFERENTIAL STAT 12/25/2022 4:40 PM CDT COMPREHENSIVE METABOLIC PANEL STAT 12/25/2022 4:40 PM CDT documented in this encounter Results * (ABNORMAL) Urinalysis, microscopic only (12/25/2022 4:42 PM CDT) WBC, ur 0-5 0 - 5 /HPF ALBERTO DELUCA Comment:Testing performed by : [facility], [address] [place] [address], [place]., [address] RBC, ur 0-2 0 - 2 /HPF ALBERTO DELUCA Comment:Testing performed by : [address] [address] Epithelial cells, squamous, ur 6-10(A) 0 - 5 /HPF ALBERTO DELUCA Comment:Testing performed by : [address] [address] Bacteria, ur 3+(A) ALBERTO DELUCA Comment:Testing performed by : [address] [address] Mucous, ur Present(A) ALBERTO DELUCA Comment:Testing performed by : [address], [place]., [address] Culture Reflex Comment Reflex conditions for urine culture (WBC >10) not met. ALBERTO DELUCA Comment:Testing performed by : [address] [address] Urine, clean voided 12/25/2022 4:42 PM CDT 12/25/2022 4:55 PM CDT us Dalia Kim MD LAB URINE ORDERABLES Edited Resu lt - Final ALBERTO [address] [facility] of [facility] [place], [place] [id number] * Protein / creatinine ratio, urine, random (12/25/2022 4:42 PM CDT) Protein, ur, quant 5.0 mg/dL ALBERTO DELUCA Comment: Interpretive Data No reference range established. Current interpretive data was last revised 2018. Testing performed by: [address] [address] Creatinine Ur 32.4 mg/dL ALBERTO Comment: Interpretive Data No reference range established. Current interpretive data was last revised 2018. Testing performed by: [address] [address] Protein/creatinin e ratio 154.3 0.0 - 180.0 mg/g CR ALBERTO DELUCA Comment:Testing performed by : [address] [address] Urine 12/25/2022 4:42 PM CDT 12/25/2022 4:55 PM CDT us Dalia Kim MD LAB URINE ORDERABLES Final Resul t LISAFAVIOLA YOSI [address] [facility] [place] [address] * (ABNORMAL) Urinalysis reflex to microscopic and culture Urine, clean voided (12/25/2022 4:42 PM CDT) Color, ur Straw Yellow ALBERTO Comment:Testing performed by : [address] [address] Clarity, ur Clear Clear ALBERTO Comment:Testing performed by : [address] [address] Specific gravity, ur 1.006 1.003 - 1.030 ALBERTO Comment:Testing performed by : [address] [address] pH, urine 6.0 ALBERTO Comment: Interpretive Data ? Urine pH is affected by diet, medications, systemic acid-base disturbances, and renal tubular function. ??pH may affect urinary stone formation. ??For example, urine pH below 6.0 may help reduce the tendency for calcium phosphate stones and pH greater than 6.0 may reduce the tendency for uric acid stone formation. Source: [facility] [employer] Current Interpretive Data was last revised on 2017 Testing performed by: [address] [address] Protein, ur ql Negative Negative ALBERTO Comment:Testing performed by : [address] [address] Glucose, ur ql Negative Negative ALBERTO Comment:Testing performed by : [address] [address] Ketones, ur Negative Negative ALBERTO Comment:Testing performed by : [address] [address] Bilirubin, ur Negative Negative ALBERTO Comment:Testing performed by : [address] [address] Blood, ur Negative Negative ALBERTO Comment:Testing performed by : [facility], [address] [place] [address]., [address] Urobilinogen, ur <2.0 <2.0 mg/dL ALBERTO Comment:Testing performed by : [address] [address] Nitrite, ur Negative Negative ALBERTO Comment:Testing performed by : [address] [address] Leukocyte esterase, ur 1+(A) Negative ALBERTO Comment:Testing performed by : [address], [place]., [address] UA reflex comment Reflex to microscopic UA will be performed. ALBERTO Comment:Testing performed by : [address] [address] Urine, clean voided 12/25/2022 4:42 PM CDT 12/25/2022 4:55 PM CDT Dalia Kim MD LAB MICROBIOLOGY - GENERAL ORDER LUTHER Final Result [facility] MARYVALEFAVIOLA [address] [facility] [place] [address] * eGFR (12/25/2022 4:40 PM CDT) eGFR 152 mL/min/1. 73 m2 ALBERTO DELUCA Comment: Interpretive [...] was last reviewed 2021. Testing performed by: [address] [address] Blood 12/25/2022 4:40 PM CDT 12/25/2022 4:55 PM CDT us Dalia Kim MD LAB BLOOD ORDERABLES Final Resul t ALBERTO [facility] [place] [address] * (ABNORMAL) CBC without differential (12/25/2022 4:40 PM CDT) WBC 10.1(H) 3.8 - 9.9 K/cumm ALBERTO DELUCA Comment:Testing performed by : [address] [address] Hgb 8.9(L) 11.9 - 15.5 g/dL ALBERTO DELUCA Comment:Testing performed by : [address] [address] Hct 28.2(L) 35.6 - 45.5 % ALBERTO DELUCA Comment:Testing performed by : [address] [address] Plt 189 150 - 400 K/cumm ALBERTO DELUCA Comment:Testing performed by : [address] [address] MPV 11.2 9.1 - 12.3 fL ALBERTO DELUCA Comment:Testing performed by : [address] [address] RBC 3.53(L) 3.90 - 5.20 M/cumm ALBERTO DELUCA Comment:Testing performed by : [address] [address] MCV 79.9(L) 81.3 - 96.4 fL ALBERTO DELUCA Comment:Testing performed by : [address] [address] MCH 25.2(L) 27.1 - 33.3 pg ALBERTO DELUCA Comment:Testing performed by : [address] [address] MCHC 31.6(L) 32.3 - 35.7 g/dL ALBERTO DELUCA Comment:Testing performed by : [address] [address] RDW CV 13.8 11.1 - 14.9 % ALBERTO DELUCA Comment:Testing performed by : [address] [address] RDW SD 39.6 35.7 - 48.1 fL ALBERTO DELUCA Comment:Testing performed by : [address] [address] NRBC abs 0.00 0.00 - 0.01 K/cumm ALBERTO Comment:Testing performed by : [address] [address] Blood 12/25/2022 4:40 PM CDT 12/25/2022 4:55 PM CDT us Dalia Kim MD LAB BLOOD ORDERABLES Final Resul t ALBERTO [address] [facility] of Laboratories [place], [place] [id number] * (ABNORMAL) Comprehensive metabolic panel (12/25/2022 4:40 PM CDT) Sodium 139 135 - 145 mmol/L ALBERTO DELUCA Comment:Testing performed by : [address] [address] Potassium, pl 3.5 3.3 - 4.9 mmol/L ALBERTO DELUCA Comment:Testing performed by : [address] [address] Chloride 105 97 - 110 mmol/L [facility] Comment:Testing performed by : [address] [address] CO2 21(L) 22 - 32 mmol/L [facility] Comment:Testing performed by : [address], [place]., [address] Anion gap 13 2 - 15 mmol/L [facility] Comment:Testing performed by : [address], [place]., [address] BUN 4(L) 6 - 25 mg/dL [facility] Comment:Testing performed by : [address], [place]., [address] Creatinine 0.30(L) 0.60 - 1.10 mg/dL [facility] Comment:Testing performed by : [address], [place]., [address] Glucose 108 70 - 199 mg/dL [facility] Comment: Interpretive Data Fasting glucose >/= [...] was last revised 2022. Testing performed by: [address] [address] Calcium 9.1 8.5 - 10.3 mg/dL [facility] Comment:Testing performed by : [address] [address] Bilirubin, total 0.2 0.1 - 1.2 mg/dL [facility] Comment:Testing performed by : [address] [address] Protein, pl 6.5 6.5 - 8.5 g/dL [facility] Comment:Testing performed by : [address], [place]., [address] Albumin 3.7 3.5 - 5.0 g/dL ALBERTO DELUCA Comment:Testing performed by : [facility], [address] [place] [address]., [address] Alk phos 93 40 - 130 Units/L ALBERTO DELUCA Comment:Testing performed by : [facility], [address] [place] [address]., [address] ALT 10 7 - 45 Units/L ALBERTO DELUCA Comment:Testing performed by : [address] [address] AST 11 10 - 45 Units/L ALBERTO DELUCA Comment:Testing performed by : [facility], [address] [place] [address]., [address] Blood 12/25/2022 4:40 PM CDT 12/25/2022 4:55 PM CDT us Dalia Kim MD LAB BLOOD ORDERABLES Final Resul t ALBERTO [address] [facility] [place] [address] documented in this encounter Visit Diagnoses Diagnosis Headache in , antepartum, third trimester- Primary documented in this encounter Administered Medications Inactive Administered Medications - up to 3 most recent administrations Medication Order MAR Action Action Date Dose Rate Site acetaminophen (TYLENOL) tablet 487.5 mg 487.5 mg (rounded from 500 mg), oral, Once, On Sat12/25/22 at 1700, For 1 dose Given 12/25/2022 4:55 PM CDT 487.5 mg diphenhydrAMINE (BENADRYL) tab/cap 25 mg 25 mg, oral, Once, On Sat12/25/22 at 1700, For 1 dose Given 12/25/2022 4:57 PM CDT 25 mg metoclopramide (REGLAN) tablet 10 mg 10 mg, oral, Once, On Sat12/25/22 at 1700, For 1 dose Given 12/25/2022 4:57 PM CDT 10 mg documented in this encounter Active and Recently Administered Medications Times are shown in CDT. Scheduled Medication Order 12/23/2022 12/24/2022 12/25/2022 acetaminophen (TYLENOL) tablet 487.5 mg (COMPLETED) 487.5 mg (rounded from 500 mg), oral, Once, On Sat12/25/22 at 1700, For 1 dose 1655 (Given - Provid er: Haven Rojas, TIMOTEO) diphenhydrAMINE (BENADRYL) tab/cap 25 mg (COMPLETED) 25 mg, oral, Once, On Sat12/25/22 at 1700, For 1 dose 1657 (Given - Provid er: Haven Rojas, TIMOTEO) metoclopramide (REGLAN) tablet 10 mg (COMPLETED) 10 mg, oral, Once, On Sat12/25/22 at 1700, For 1 dose 1657 (Given - Provid er: Haven Rojas, TIMOTEO) documented in this encounter Orders Nursing Count Last Ordered Date First Orde red Date CONTRACTION - MONITORING 1 12/25/2022 MONITORING 1 12/25/2022 documented in this encounter Care Teams Lead Principal Technical Architect Relationship Specialty Start Date End Date No, Physician PCP - General 08/06/22 documented as of this encounter
--- OUTSIDE RECORDS SUMMARY | 2024-03-15 14:56 | XMS_ITS | Encounter Summary ---
Author Organization [facility] Healthcare Address [address] [place] [address] Care Team Providers Care Wood Patternmaker Apprentice Name Role Phone No, Physician Primary Care Provider [phone] Reason for Visit * Reason Comments Problem Reports lower back/l ower abdominal pain for whole and slightly brown mucus/discharge when wiping at 10 Am, denies any active bleeding at this time. Reports good movement. States was treated at [facility] for labor recently with a +FFN. Encounter Details Date Type Department Care Team (Late st Contact Info) Description 12/13/2022 1:13 PM CDT - 12/13/2022 2:36 PM CDT Emergency [facility] OB Emergency Department [address] [place], [place] [id number] Coni Perry, DO [address] [id number] Vaginal discharge during in third trimester (Primary Dx); 29 weeks gestation of ; Blood type A+ Discharge Disposition: Discharge to home or self [...] Sign Reading Time Taken Comments Blood Pressure 115/71 12/13/2022 1:56 PM CDT Pulse 102 12/13/2022 2:06 PM CDT Temperature 36.7 ??C (98 ??F) 12/13/2022 1:22 PM CDT Respiratory Rate 18 12/13/2022 1:22 PM CDT Oxygen Saturation 98% 12/13/2022 2:06 PM CDT Inhaled Oxygen Concentration - - Weight - - Height - - Body Mass Index - - documented in this encounter Medications at Time of Discharge acetaminophen (TYLENOL) 325 mg tablet Take 2 tablets (650 mg total) by mouth every 6 (six) hours as needed for pain 08/12/2023 metoclopramide (REGLAN) 10 mg tablet Take 1 tablet (10 mg total) by mouth every 6 (six) hours 30 tablet 08/12/2022 02/21/2023 vit 69-knjd-ojydf-dha 27mg iron- 800 mcg-250 mg capsule Take 1 tablet by mouth daily 08/12/2023 documented as of this encounter Discharge Disposition Disposition Code Departure Means Destination Comment s Discharge to home or self care documented in this encounter ED Notes * Neeraj Grace MD - 12/13/2022 2:13 PM CDT HPI Chief Complaint Patient presents with Problem Reports lower back/lower abdominal pain for whole and slightly brown mucus/discharge when wiping at 10 Am, denies any active bleeding at this time. Reports good movement. States wastreated at [facility] for labor recently with a +FFN. 22 y.o. at 29w5d here for brown red d/c when voiding She reports ahh so, I just noticed when I went to the bathroom earlier brown red dicharge like old blood in the toilet while voiding. No other VB. Reports good FM denies LOF and ctxs. Blood type A+. Started care at [facility] and has appt Saturday (4 days). History provided by: Patient official court interpreter used: No Patient History: Patient Active Problem List Diagnosis [...] Vitals Temp Pulse Resp BP SpO2 -- 12/13/22 1322 -- 12/13/22 1322 12/13/22 1331 (!) 139 123/90 97 % Temp src Heart Rate Source Patient Position BP Location FiO2 (%) -- -- -- -- -- Height Height Method Weight Weight Method -- -- -- -- Physical Exam Vitals reviewed. Constitutional: General: She is not in acute distress. Appearance: Normal appearance. She is normal weight. She is not ill-appearing, toxic-appearing or diaphoretic. HENT: Head: Normocephalic and atraumatic. Nose: Nose normal. Eyes: Extraocular Movements: Extraocular movements intact. Pulmonary: Effort: Pulmonary effort is normal. Abdominal: Comments: Gravid uterus, nonirritable, no rebound/guarding EFM Cat I TOCO: none Genitourinary: Comments: SSE no VB no blood on perineum cervix visually closed Musculoskeletal: General: Normal range of motion. Cervical back: Normal range of motion. Skin: General: Skin is warm. Neurological: General: No focal deficit present. Mental Status: She is alert and oriented to person, place, and time. Psychiatric: Mood and Affect: Mood normal. Behavior: Behavior normal. Thought Content: Thought content normal. Judgment: Judgment normal. MDM Medical Decision Making UFM SSE no VB blood type A+ no Ctx so doubt PTL at this time d/c w/ precautions keep JEANNA appt Saturday at [facility] (4 days) Final diagnoses: None Neeraj Grace MD 12/13/22 1527 documented in this encounter Plan of Treatment Not on file documented as of this encounter Visit Diagnoses Diagnosis Vaginal discharge during in third trimester- Primary 29 weeks gestation of Blood type A+ Other specified conditions influencing health status documented in this encounter Historical Medications * This list may reflect changes made after this encounter. acetaminophen (TYLENOL) 325 mg tablet Take 2 tablets (650 mg total) by mouth every 6 (six) hours as needed for pain 08/12/2023 vit 27-fdjs-wnoyy-dha 27mg iron- 800 mcg-250 mg capsule Take 1 tablet by mouth daily 08/12/2023 added in this encounter Care Teams Wood Patternmaker Apprentice Relationship Specialty Start Date End Date No, Physician PCP - General 08/06/22 documented as of this encounter
--- OUTSIDE RECORDS SUMMARY | 2024-03-15 14:56 | XMS_ITS | Encounter Summary ---
Author Organization [facility] Medical [facility] Address [address] [place] [address] Care Team Providers Care Refrigeration Houseman Name Role Phone La Nena Ferro NP Primary Care Provider [phone] Encounter Details Date Type Department Care Team (Late st Contact Info) Description 07/08/2022 E-Visit [facility] Medical [facility] Virtual Care [address] [place] [id number] Riana Ferro NP [address] [address] Your Medications Social History Tobacco Use [...] Refills Last Filled Start Date End Date amoxicillin (AMOXIL) 875 mg tablet Take 1 tablet (875 mg total) by mouth 2 (two) times a day for 7 days 14 tablet 07/08/2022 07/15/2022 documented in this encounter Miscellaneous Notes * E-Visit Note - Riana Ferro NP - 07/08/2022 4:16 PM CDT Images from the original note were not included. Mariam Lea 07/08/2022 E-Visit Submission Subjective/Objective: Mariam Lea contacted the office today via e-visit for Cough. The patient-submitted questionnaire was assessed for pertinent information and the patient's problem list, medication list, and allergies were reviewed as part of the e-visit. The chart was updated to identify any changes in these areas. Assessment: Diagnosis Plan 1. Acute upper respiratory infection Plan: The patient was given information regarding any new medication(s) prescribed, if applicable, as well as any [id number] remedies. She was given instructions regarding follow up and timeframe if symptoms worsen or don???t improve. These instructions were included in the [employer] message reply tothe patient. Patient Instructions were included in the message reply to patient. My total encounter time on 07/08/2022 was 5 minutes which was spent in the activities documented inthe note. New Medications Ordered This Visit amoxicillin (AMOXIL) 875 mg tablet Sig: Take 1 tablet (875 mg total) by mouth 2 (two) times a day for 7 days Dispense: 14 tablet Refill: 0 Riana Ferro NP documented in this encounter Plan of Treatment Not on file documented as of this encounter Visit Diagnoses Diagnosis Acute upper respiratory infection- Primary Acute upper respiratory infections of unspecified site documented in this encounter Care Teams Refrigeration Houseman Relationship Specialty Start Date End Date La Nena Ferro NP [address] [address] PCP - General Family Medicine 05/22/22 08/05/22 documented as of this encounter
--- OUTSIDE RECORDS SUMMARY | 2024-03-15 14:56 | XMS_ITS | Encounter Summary ---
Author Organization [facility] Healthcare Address [address] [place] [address] Care Team Providers Care Jewelry Bearing Maker Name Role Phone La Nena Ferro NP Primary Care Provider [phone] Encounter Details Date Type Department Care Team (Late st Contact Info) Description 07/12/2022 Patient Self-Triage [facility] HealthCare/ Physicians [facility] [place] [address] Mychart, Generic Provider [address] [place], [place] [id number] Social History Tobacco Use Types Packs/Day Years [...] on filedocumented in this encounter Care Teams Jewelry Bearing Maker Relationship Specialty Start Date End Date La Nena Ferro NP [address] [facility] [address] [place] [address] PCP - General Family Medicine 05/22/22 08/05/22 documented as of this encounter
--- OUTSIDE RECORDS SUMMARY | 2024-03-15 14:56 | XMS_ITS | Encounter Summary ---
Author Organization [facility] Healthcare Address [address] [place] [address] Care Team Providers Care Hydraulic Spinner Name Role Phone No, Physician Primary Care Provider [phone] Encounter Details Date Type Department Care Team (Late st Contact Info) Description 10/18/2022 Patient Self-Triage [facility] [facility] [place] [address] Mychart, Generic Provider [address] [place], [place] [id number] Social History Tobacco Use Types Packs/Day Years [...] on filedocumented in this encounter Care Teams Hydraulic Spinner Relationship Specialty Start Date End Date No, Physician PCP - General 08/06/22 documented as of this encounter
--- OUTSIDE RECORDS SUMMARY | 2024-03-15 14:56 | XMS_ITS | Encounter Summary ---
Author Organization [facility] Healthcare Address [address] [place] [address] Care Team Providers Care Chief Engineer [employer] Name Role Phone No, Physician Primary Care Provider [phone] Reason for Visit * Reason Comments Fall Abdominal Pain Encounter Details Date Type Department Care Team (Late st Contact Info) Description 08/06/2022 5:05 PM CDT - 08/06/2022 7:21 PM CDT Emergency [facility] Emergency Department [address] [place] [address] Fall, initial encounter (Primary Dx); Abdominal pain in , first trimester Discharge Disposition: Discharge to home [...] Sign Reading Time Taken Comments Blood Pressure 99/65 08/06/2022 7:06 PM CDT Pulse 59 08/06/2022 7:06 PM CDT Temperature 36.7 ??C (98 ??F) 08/06/2022 2:29 PM CDT Respiratory Rate 18 08/06/2022 7:06 PM CDT Oxygen Saturation 99% 08/06/2022 7:06 PM CDT Inhaled Oxygen Concentration - - Weight 50.7 kg (111 lb 12.4 oz) 08/06/2022 2:29 PM CDT Height - - Body Mass Index 19.8 06/26/2022 2:09 PM CDT documented in this encounter Discharge Instructions * Discharge Instructions* Marianna Vang PA - 08/06/2022 7:03 PM CDT 1) Tylenol for pain relief 2) follow-up with your OB as scheduled 3) return to the emergency room with any new or worsening symptoms including worsening abdominal pain, vaginal bleeding * Attachments The following attachments cannot be sent through Care Everywhere. * Abdominal Pain in (AfterCare(R) Instructions(ER/ED)) (Angolan) documented in this encounter Discharge Disposition Disposition Code Departure Means Destination Comment s Discharge to home or self care documented in this encounter ED Notes * Marianna Vang PA - 08/06/2022 7:21 PM CDT ED NOTE Chief Complaint Chief Complaint Patient presents with Fall Abdominal Pain History of Present Illness The patient is a 21 y.o. female at 11 weeks gestation who presents for evaluation of lower abdominal cramping after falling while walking her dog and hitting her side today. Patient also reports she fell while walking her dog 2 days ago and hit her lower abdomen. She contacted her OB who recommended she come to the ER for evaluation. Denies vaginal bleeding. Medical History ALLERGIES: Allergies Allergen Reactions Ciprofloxacin Other (See comments) and Anaphylaxis Rash Rash Pt states I can't breath Pt states I can't breath Levofloxacin Rash and Anaphylaxis Rash Rash MEDICATIONS: Prior to Admission medications Not on File PAST MEDICAL HISTORY: Past Medical History: Diagnosis Date Asthma PAST SURGICAL HISTORY: Past Surgical History: Procedure Laterality Date TONSILECTOMY, ADENOIDECTOMY, BILATERAL MYRINGOTOMY AND TUBES FAMILY HISTORY: No family history on file. SOCIAL HISTORY: Social History Tobacco Use Smoking status: Never Smokeless tobacco: Not on file Substance and Sexual Activity Drug use: Never Sexual activity: Not on file Alcohol Use: Not on file Review of Systems All systems reviewed and are neg or non contributory for this patients presentation today other than as stated in the HPI . Physical Exam BP 99/65 (BP Location: Right arm) Pulse 59 Temp 36.7 ??C (98 ??F) (Oral) Resp 18 Wt 50.7 kg(111 lb 12.4 oz) LMP 05/17/2022 (Exact Date) SpO2 99% BMI 19.80 kg/m?? Physical Exam Vitals and nursing note reviewed. Constitutional: Appearance: Normal appearance. Eyes: Conjunctiva/sclera: Conjunctivae normal. Cardiovascular: Rate and Rhythm: Normal rate and regular rhythm. Pulses: Normal pulses. Heart sounds: Normal heart sounds. Pulmonary: Effort: Pulmonary effort is normal. Breath sounds: Normal breath sounds. Abdominal: Palpations: Abdomen is soft. Tenderness: abdominal tenderness (Minimal diffuse lower abdomen. No focal tenderness noted) There is no guarding or rebound. Comments: No erythema, bruising, swelling to the abdomen Musculoskeletal: General: Normal range of motion. Cervical back: Normal range of motion and neck supple. Skin: General: Skin is warm. Capillary Refill: Capillary refill takes less than 2 seconds. Neurological: General: No focal deficit present. Mental Status: She is alert. Psychiatric: Mood and Affect: Mood normal. Diagnostic Studies / Procedures LABORATORY STUDIES: Labs Reviewed URINALYSIS AND REFLEX TO MICROSCOPIC AND CULTURE - Abnormal Result Value Color, ur Straw Clarity, ur Clear Specific gravity, ur 1.004 pH, urine 7.0 Protein, ur ql Negative Glucose, ur ql Negative Ketones, ur Negative Bilirubin, ur Negative Blood, ur Negative Urobilinogen, ur <2.0 Nitrite, ur Negative Leukocyte esterase, ur 1+ (*) UA reflex comment Reflex to microscopic UA will be performed. Narrative: Urine pH is affected by diet, medications, systemic acid-base disturbances, and renal tubular function. pH may affect urinary stone formation. For example, urine pH below 6.0 may help reduce the tendency for calcium phosphate stones and pH greater than 6.0 may reduce the tendency for uric acid stone formation. Source: [place] [place] [employer].Last revised 04-04-2017 HCG, BLOOD, QUANTITATIVE - Abnormal hCG, quant 165,591.0 (*) COMPREHENSIVE METABOLIC PANEL - Abnormal Sodium 133 (*) Potassium, pl 3.8 Chloride 99 CO2 23 Anion gap 11 BUN 4 (*) Creatinine 0.40 (*) Glucose 83 Calcium 9.5 Bilirubin, total 0.4 Protein, pl 7.0 Albumin 4.2 Alk phos 53 ALT 24 AST 16 DIFFERENTIAL AUTO - Abnormal Neutrophil abs 7.2 (*) Imm gran abs 0.1 Lymphocyte abs 1.6 Monocyte abs 0.6 Eosinophil abs 0.1 Basophil abs 0.1 Neutrophil pct 75.6 Imm gran pct 0.6 Lymphocyte pct 16.4 Monocyte pct 6.0 Eosinophil pct 0.9 Basophil pct 0.5 URINALYSIS, MICROSCOPIC ONLY - Abnormal WBC, ur 0-5 RBC, ur 0-2 Epithelial cells, squamous, ur 21-50 (*) Bacteria, ur 4+ (*) Culture Reflex Comment Value: Reflex conditions for urine culture (WBC >10) not met. POCT HCG, URINE - Normal HCG, ur, POC Positive Lot Number [id number] QC Backgroud Clear Acceptable QC Control Line Acceptable CBC WITH AUTO DIFFERENTIAL WBC 9.6 Hgb 12.2 Hct 37.3 Plt 222 MPV 11.1 RBC 4.23 MCV 88.2 MCH 28.8 MCHC 32.7 RDW CV 13.0 RDW SD 42.2 NRBC abs 0.00 ABO/RH ABO/Rh A Positive EGFR eGFR 143 IMAGING STUDIES: US Ob Under 14 Weeks Final Result US Ob Under 14 Weeks Result Date: 08/06/2022 Narrative: EXAM DESCRIPTION: US OB UNDER 14 WEEKS REASON FOR STUDY: with fall x2 over thelast 2 days. Right lower quadrant and right back pain today. Beta-hCG: None available TECHNIQUE: Transabdominal images acquired of the pelvis. COMPARISON: Ultrasound dated January 02, 2021 FINDINGS: Clinical gestational age: 10 weeks 6 days Clinical estimated Due Date: February 26, 2023 Intrauterinegestational sac: Present Yolk sac: Present Subchorionic bleed: No Placenta: Not identified Mean sacdiameter: None applicable cm [place]-rump length: 4.62 cm heart rate: 168 bpm Gestational age by this ultrasound: 11 weeks 3 days ANGIE by this ultrasound: February 22, 2023 Uterus: The uterus is anteverted , measuring 11.4 x 9.8 x 5.5 cm. Right Ovary/Adnexa: The right ovary measures 4.4 x 3.3 x 2.8 cm. There is documentation of color Doppler flow in the right ovary. The right ovary appears unremarkable. No adnexal mass. Incidental note is made by a 3 x 2.1 cm corpus luteal cyst. Left Ovary/Adnexa: The left ovary measures 3.1 x 2.7 x 1.7 cm. There is documentation of color Doppler flow in the left ovary. The left ovary appears unremarkable. No adnexal mass. Free Fluid: None. Other Findings: None. IMPRESSION: Single live intrauterine . THIS IS AN ELECTRONICALLY VERIFIED FINAL REPORT 08/06/2022 3:57 PM - Electronically signed by Ellis Sherman M.D. JA: LANI Report ID: [id number] Reading Location: [id number] Procedures ED Course / Medical Decision Making MDM Number of Diagnoses or Management Options Abdominal pain in , first trimester Fall, initial encounter Diagnosis management comments: DDX includes: Abdominal pain in , contusion, muscle strain, threatened miscarriage Nontoxic-appearing patient at 11 weeks' gestation presents with lower abdominal cramping after a fall today, was sent in by Ob for evaluation. Patient in no acute distress. Afebrile. Vital signs are stable. No significant focal abdominal tenderness on exam. No overlying skin changes to the abdomen.No reported vaginal bleeding. Labs are essentially unremarkable today. Ultrasound showing intrauteri ne with a heart rate of 168. Reassuring ultrasound findings. I spoke with on-call [facility], Dr. Noble, who does not have any further recommendations other than monitor symptoms and follow-up as scheduled in the clinic. Strict verbal return precautions reviewed. Patient expresses verbal understanding and agreement with plan. All questions answered to the best of my ability. Nontoxic exit exam. Patient discharged home in stable condition. Amount and/or Complexity of Data Reviewed Clinical lab tests: reviewed and ordered ED Course as of 08/06/22 2332 Time: 08/06 1849 Comment: Paged [facility] for recommendations By: Marianna Vang PA Time: 08/06 1852 Comment: Talked to Dr. Noble By: Marianna Vang PA Medications acetaminophen (TYLENOL) tablet 975 mg (975 mg oral Given 08/06/22 174) Diagnoses that have been ruled out: None Diagnoses that are still under consideration: None Final diagnoses: Fall, initial encounter Abdominal pain in , first trimester Disposition: DISPOSITION: Home Follow-Up: No follow-up provider specified. MEME Ang 08/06/2022 Marianna Vang PA 08/06/222 Cosigned by Amairani Schmitz MD at 08/07/2022 6:02 AM CDT * Ita Beard RN - 08/06/2022 2:26 PM CDT Pt states im 11 weeks , The OB told me to come in because I fell walking my dog. Pt reports hitting stomach during one fall and during the 2nd fall hitting her R side. Pt A&Ox4. Pt c/o lower abdominal pain 7/10, lower right back pain. Denies vaginal bleeding. documented in this encounter Plan of Treatment Not on file documented as of this encounter Procedures Procedure Name Priority Date/Time Associated Diagnosis Comments URINALYSIS AND REFLEX TO MICROSCOPIC AND CULTURE STAT 08/06/2022 5:46 PM CDT URINALYSIS, MICROSCOPIC ONLY STAT 08/06/2022 5:46 PM CDT POCT HCG, URINE STAT 08/06/2022 5:46 PM CDT US OB UNDER 14 WEEKS ED 08/06/2022 3:16 PM CDT EGFR STAT 08/06/2022 2:54 PM CDT DIFFERENTIAL AUTO STAT 08/06/2022 2:5 4 PM CDT CBC WITH AUTO DIFFERENTIAL STAT 08/06/2022 2:54 PM CDT HC BLD TYPING ABO STAT 08/06/2022 2:5 4 PM CDT HCG, BLOOD, QUANTITATIVE STAT 08/06/2022 2:54 PM CDT COMPREHENSIVE METABOLIC PANEL STAT 08/06/2022 2:54 PM CDT documented in this encounter Results * (ABNORMAL) Urinalysis, microscopic only (08/06/2022 5:46 PM CDT) WBC, ur 0-5 0 - 5 /HPF ALBERTO Comment:Testing performed by : [address] [address] RBC, ur 0-2 0 - 2 /HPF ALBERTO Comment:Testing performed by : [address] [address] Epithelial cells, squamous, ur 21-50(A) 0 - 5 /HPF ALBERTO Comment:Testing performed by : [address] [address] Bacteria, ur 4+(A) ALBERTO Comment:Testing performed by : [address] [address] Culture Reflex Comment Reflex conditions for urine culture (WBC >10) not met. ALBERTO Comment:Testing performed by : [address] [address] Urine 08/06/2022 5:46 PM CDT 08/06/2022 5:52 PM CDT us [facility] URINE ORDERABLES Final Resul t ALBERTO [address] [facility] Department [place] [address] * POCT hCG, urine (08/06/2022 5:46 PM CDT) HCG, ur, POC Positive Lot Number [id number] QC Backgroud Clear Acceptable QC Control Line Acceptable Urine 08/06/2022 5:46 PM CDT Tr[facility] POINT OF CARE TEST ORDERABLES Fi nal Result * (ABNORMAL) Urinalysis reflex to microscopic and culture Urine (08/06/2022 5:46 PM CDT) Color, ur Straw Yellow ALBERTO Comment:Testing performed by : [address] [address] Clarity, ur Clear Clear ALBERTO Comment:Testing performed by : [address] [address] Specific gravity, ur 1.004 1.003 - 1.030 ALBERTO Comment:Testing performed by : [address] [address] pH, urine 7.0 ALBERTO Comment:Testing performed by : [address] [address] Protein, ur ql Negative Negative ALBERTO Comment:Testing performed by : [address] [address] Glucose, ur ql Negative Negative ALBERTO Comment:Testing performed by : [address] [address] Ketones, ur Negative Negative ALBERTO Comment:Testing performed by : [address] [address] Bilirubin, ur Negative Negative ALBERTO Comment:Testing performed by : [address] [address] Blood, ur Negative Negative ALBERTO Comment:Testing performed by : [address] [address] Urobilinogen, ur <2.0 <2.0 mg/dL ALBERTO Comment:Testing performed by : [address] [address] Nitrite, ur Negative Negative ALBERTO Comment:Testing performed by : [facility], [address] [place] [address]., [address] Leukocyte esterase, ur 1+(A) Negative ALBERTO Comment:Testing performed by : [facility], [address] [place] [address]., [address] UA reflex comment Reflex to microscopic UA will be performed. ALBERTO Comment:Testing performed by : [address] [address] Urine 08/06/2022 5:46 PM CDT 08/06/2022 5:52 PM CDT Narrative ALBERTO - 08/06/2022 5:57 PM CDT ?? Urine pH is affected by diet, medications, systemic acid-base disturbances, and renal tubular function. ??pH may affect urinary stone formation. ??For example, urine pH below 6.0 may help reduce the tendency for calcium phosphate stones and pH greater than 6.0 may reduce the tendency for uric acid stone formation. Source: [employer]. Last revised 04-04-2017 us [facility] MICROBIOLOGY - GENERAL ORDER LUTHER Final Result ALBERTO [address] [facility] Department [place] [address] * US Ob Under 14 Weeks (08/06/2022 3:16 PM CDT) Anatomical Region Laterality Modality Abdomen N/A Ultrasound 08/06/2022 3:46 PM CDT Narrative 08/06/2022 3:57 PM CDT EXAM DESCRIPTION: ?? US OB UNDER 14 WEEKS REASON FOR STUDY: ?? with fall x2 over the last 2 days. ??Right lower quadrant and right back pain today. Beta-hCG: ?None available TECHNIQUE: ?? Transabdominal ??images acquired of the pelvis. COMPARISON: ?? Ultrasound dated January 02, 2021 FINDINGS: Clinical gestational age: ?? 10 weeks 6 days Clinical estimated Due Date: ?? February 26, 2023 ?? Intrauterine gestational sac: ?? Present Yolk sac: ?? Present Subchorionic bleed: ?? No Placenta: ?? Not identified Mean sac diameter: ?? None applicable ??cm [place]-rump length: ?? 4.62 ??cm heart rate: ?? 168 ??bpm Gestational age by this ultrasound: ?? 11 weeks 3 days ANGIE by this ultrasound: ?? February 22, 2023 Uterus: The uterus is ??anteverted , measuring ??11.4 x 9.8 x 5.5 ??cm. Right Ovary/Adnexa: The right ovary measures ??4.4 x 3.3 x 2.8 ??cm. ??There is documentation of color Doppler flow in the right ovary. The right ovary appears unremarkable. No adnexal mass. ?? Incidental note is made by a 3 x 2.1 cm corpus luteal cyst. Left Ovary/Adnexa: The left ovary measures ??3.1 x 2.7 x 1.7 ??cm. ??There is documentation of color Doppler flow in the left ovary. The left ovary appears unremarkable. No adnexal mass. Free Fluid: ?? None. Other Findings: ?? None. IMPRESSION: ?? Single live intrauterine . THIS IS AN ELECTRONICALLY VERIFIED FINAL REPORT 08/06/2022 3:57 PM - Electronically signed by ??Ellis Sherman M.D. JA: LANI D: ??08/06/2022 3:57 PM T: ??08/06/2022 3:57 PM Report ID: [id number] Reading Location: ??[id number] Procedure Note Ellis Sherman MD - 08/06/2022 EXAM DESCRIPTION: US OB UNDER 14 WEEKS REASON FOR STUDY: with fall x2 over the last 2 days. Rightlower quadrant and right back pain today. Beta-hCG: None available TECHNIQUE: Transabdominal images acquired of the pelvis. COMPARISON: Ultrasound dated January 02, 2021 FINDINGS: Clinical gestational age: 10 weeks 6 days Clinical estimated Due Date: February 26, 2023 Intrauterine gestational sac: Present Yolk sac: Present Subchorionic bleed: No Placenta: Not identified Mean sac diameter: None applicable cm [place]-rump length: 4.62 cm heart rate: 168 bpm Gestational age by this ultrasound: 11 weeks 3 days ANGIE by this ultrasound: February 22, 2023 Uterus: The uterus is anteverted , measuring 11.4 x 9.8 x 5.5 cm. Right Ovary/Adnexa: The right ovary measures 4.4 x 3.3 x 2.8 cm. Thereis documentation of color Doppler flow in the right ovary. The right ovary appears unremarkable. No adnexal mass. Incidental note is made by a 3 x2.1 cm corpus luteal cyst. Left Ovary/Adnexa: The left ovary measures 3.1 x 2.7 x 1.7 cm. There is documentation of color Doppler flow in the left ovary. The left ovaryappears unremarkable. No adnexal mass. Free Fluid: None. Other Findings: None. IMPRESSION: Single live intrauterine . THIS IS AN ELECTRONICALLY VERIFIED FINAL REPORT 08/06/2022 3:57 PM - Electronically signed by Ellis Sherman M.D. JA: LANI Report ID: [id number] Reading Location: [place] [address] us Trud[facility] OB US PROCEDURES Final Resul t * eGFR (08/06/2022 2:54 PM CDT) eGFR 143 mL/min/1. 73 m2 ALBERTO DELUCA Comment: Interpretive [...] was last reviewed 2021. Testing performed by: [address] [address] Blood 08/06/2022 2:54 PM CDT 08/06/2022 3:04 PM CDT us [facility] BLOOD ORDERABLES Final Resul t ALBERTO [facility] Department [place] [address] * (ABNORMAL) Differential, auto (08/06/2022 2:54 PM CDT) Neutrophil abs 7.2(H) 1.7 - 6.5 K/cumm ALBERTO Comment:Testing performed by : [address] [address] Imm gran abs 0.1 0.0 - 0.1 K/cumm ALBERTO Comment:Testing performed by : [address] [address] Lymphocyte abs 1.6 0.8 - 3.3 K/cumm ALBERTO Comment:Testing performed by : [address] [address] Monocyte abs 0.6 0.2 - 0.8 K/cumm ALBERTO Comment:Testing performed by : [address] [address] Eosinophil abs 0.1 0.0 - 0.5 K/cumm ALBERTO Comment:Testing performed by : [address] [address] Basophil abs 0.1 0.0 - 0.1 K/cumm ALBERTO Comment:Testing performed by : [address] [address] Neutrophil pct 75.6 % [facility] Comment: Interpretive Data Percent cell count reference ranges are not reported, since discordance with absolute values may lead to misinterpretation of CBC data. Current Interpretive Data was last revised on 2017. Testing performed by: [address] [address] Imm gran pct 0.6 % [facility] Comment: Interpretive Data Percent cell count reference ranges are not reported, since discordance with absolute values may lead to misinterpretation of CBC data. Current Interpretive Data was last revised on 2017. Testing performed by: [address] [address] Lymphocyte pct 16.4 % [facility] Comment: Interpretive Data Percent cell count reference ranges are not reported, since discordance with absolute values may lead to misinterpretation of CBC data. Current Interpretive Data was last revised on 2017. Testing performed by: [address] [address] Monocyte pct 6.0 % [facility] Comment: Interpretive Data Percent cell count reference ranges are not reported, since discordance with absolute values may lead to misinterpretation of CBC data. Current Interpretive Data was last revised on 2017. Testing performed by: [address] [address] Eosinophil pct 0.9 % [facility] Comment: Interpretive Data Percent cell count reference ranges are not reported, since discordance with absolute values may lead to misinterpretation of CBC data. Current Interpretive Data was last revised on 2017. Testing performed by: [address] [address] Basophil pct 0.5 % [facility] Comment: Interpretive Data Percent cell count reference ranges are not reported, since discordance with absolute values may lead to misinterpretation of CBC data. Current Interpretive Data was last revised on 2017. Testing performed by: [address] [address] Blood 08/06/2022 2:54 PM CDT 08/06/2022 3:04 PM CDT us [facility] BLOOD ORDERABLES Final Resul t Performing Organization Address City/[facility] Co de Phone Number ALBERTO [address] [address] * ABO/Rh (08/06/2022 2:54 PM CDT) ABO/Rh A Positive ALBERTO DELUCA Comment:Testing performed by : [address] [address] Blood 08/06/2022 2:54 PM CDT 08/06/2022 3:04 PM CDT [facility] BLOOD BANK TEST ORDERABLES F inal Result Performing Organization Address [facility] de Phone Number ALBERTO [facility] [place] [address] * CBC with auto differential (08/06/2022 2:54 PM CDT) WBC 9.6 3.8 - 9.9 K/cumm ALBERTO DELUCA Comment:Testing performed by : [address] [address] Hgb 12.2 11.9 - 15.5 g/dL ALBERTO DELUCA Comment:Testing performed by : [address] [address] Hct 37.3 35.6 - 45.5 % ALBERTO DELUCA Comment:Testing performed by : [address] [address] Plt 222 150 - 400 K/cumm ALBERTO DELUCA Comment:Testing performed by : [address] [address] MPV 11.1 9.1 - 12.3 fL ALBERTO DELUCA Comment:Testing performed by : [address] [address] RBC 4.23 3.90 - 5.20 M/cumm ALBERTO DELUCA Comment:Testing performed by : [address] [address] MCV 88.2 81.3 - 96.4 fL ALBERTO DELUCA Comment:Testing performed by : [address] [address] MCH 28.8 27.1 - 33.3 pg ALBERTO DELUCA Comment:Testing performed by : [address] [address] MCHC 32.7 32.3 - 35.7 g/dL ALBERTO DELUCA Comment:Testing performed by : [address] [address] RDW CV 13.0 11.1 - 14.9 % ALBERTO Comment:Testing performed by : [address] [address] RDW SD 42.2 35.7 - 48.1 fL ALBERTO DELUCA Comment:Testing performed by : [address] [address] NRBC abs 0.00 0.00 - 0.01 K/cumm ALBERTO DELUCA Comment:Testing performed by : [address] [address] Blood 08/06/2022 2:54 PM CDT 08/06/2022 3:04 PM CDT us [facility] BLOOD ORDERABLES Final Resul t ALBERTO [address] [facility] Department [place] [address] * (ABNORMAL) Comprehensive metabolic panel (08/06/2022 2:54 PM CDT) Sodium 133(L) 135 - 145 mmol/L ALBERTO DELUCA Comment:Testing performed by : [address] [address] Potassium, pl 3.8 3.3 - 4.9 mmol/L ALBERTO DELUCA Comment:Testing performed by : [address] [address] Chloride 99 97 - 110 mmol/L ALBERTO DELUCA Comment:Testing performed by : [address] [place] [address] CO2 23 22 - 32 mmol/L ALBERTO Comment:Testing performed by : [address] [address] Anion gap 11 2 - 15 mmol/L ALBERTO Comment:Testing performed by : [address] [address] BUN 4(L) 8 - 25 mg/dL ALBERTO Comment:Testing performed by : [address] [address] Creatinine 0.40(L) 0.60 - 1.10 mg/dL ALBERTO Comment:Testing performed by : [address] [address] Glucose 83 70 - 199 mg/dL ALBERTO Comment: Interpretive [...] was last revised 2022. Testing performed by: [address] [address] Calcium 9.5 8.5 - 10.3 mg/dL ALBERTO Comment:Testing performed by : [address] [address] Bilirubin, total 0.4 0.1 - 1.2 mg/dL ALBERTO Comment:Testing performed by : [address] [address] Protein, pl 7.0 6.5 - 8.5 g/dL ALBERTO Comment:Testing performed by : [address] [address] Albumin 4.2 3.5 - 5.0 g/dL ALBERTO Comment:Testing performed by : [address] [address] Alk phos 53 40 - 130 Units/L ALBERTO DELUCA Comment:Testing performed by : [address] [address] ALT 24 7 - 45 Units/L ALBERTO DELUCA Comment:Testing performed by : [address] [address] AST 16 10 - 45 Units/L ALBERTO Comment:Testing performed by : [address] [address] Blood 08/06/2022 2:54 PM CDT 08/06/2022 3:04 PM CDT us Tr[facility] BLOOD ORDERABLES Final Resul t ALBERTO [address] [facility] Department [place] [address] * (ABNORMAL) hCG, blood, quantitative (08/06/2022 2:54 PM CDT) hCG, quant 165,591.0 (H) 0.0 - 5.0 IUnits/L ALBERTO DELUCA Comment: Interpretive Data Non- Female premenopausal: < or = 5.0 IUnits/L Men: < 5.0 IUnits/L Weeks of Gestation ? Reference Interval ?? 3 to 6 ? 5.8-31,795 IUnits/L ?? 7 to 10 ? 3,697-186,977 IUnits/L ??12 to 15 ?27,832- 70,791 IUnits/L ??16 to 18 ? 9,040- 58,179 IUnits/L The Moe hCG Beta Quant assay procedure was used. Results from different manufacturers or methods may not be comparable. Serial testing should be performed using the same method. Current Interpretive Data was last revised on 2021. Testing performed by: [address] [address] [address] Blood 08/06/2022 2:54 PM CDT 08/06/2022 3:04 PM CDT us Trudi [facility] LAB BLOOD ORDERABLES Final Resul t ALBERTO [address] [facility] Department of Laboratories [place], [place] [id number] documented in this encounter Visit Diagnoses Diagnosis Fall, initial encounter- Primary Abdominal pain in , first trimester documented in this encounter Administered Medications Inactive Administered Medications - up to 3 most recent administrations Medication Order MAR Action Action Date Dose Rate Site acetaminophen (TYLENOL) tablet 975 mg 975 mg (rounded from 1,000 mg), oral, Once, On Sat08/06/22 at 1738, For 1 dose Given 08/06/2022 5:42 PM CDT 975 mg documented in this encounter Active and Recently Administered Medications Times are shown in CDT. Scheduled Medication Order 08/04/2022 08/05/2022 08/06/2022 acetaminophen (TYLENOL) tablet 975 mg (COMPLETED) 975 mg (rounded from 1,000 mg), oral, Once, On Sat08/06/22 at 1738, For 1 dose 1742 (Given - Provid er: Sue Fowler, RN) documented in this encounter Orders Medications Ordered That Arthur ht Not Have Been Administered Count Last Ordered Date First Ordered Date acetaminophen (TYLENOL) tablet 975 mg 1 documented in this encounter Care Teams Chief Engineer Waterworks Relationship Specialty Start Date End Date No, Physician PCP - General 08/06/22 documented as of this encounter
--- OUTSIDE RECORDS SUMMARY | 2024-03-15 14:56 | XMS_ITS | Encounter Summary ---
Author Organization [facility] Healthcare Address [address] [place] [address] Care Team Providers Care Ramp Agent Name Role Phone Shana Easton MD Primary Care Provider [phone] Encounter Details Date Type Department Care Team (Late st Contact Info) Description 02/10/2020 9:51 PM HUMAN RESOURCE OFFICER - 02/11/2020 1:00 AM [facility] Emergency [facility] Emergency Department [address] [place] [address] Keri Buckley DO [address] [place] [address] Unknown, Notinfile Discharge Disposition: Discharge to home or self [...] Sign Reading Time Taken Comments Blood Pressure 101/56 02/10/2020 10:05 PM HUMAN RESOURCE OFFICER Pulse 58 02/10/2020 10:05 PM HUMAN RESOURCE OFFICER Temperature 36.6 ??C (97.9 ??F) 02/10/2020 10:[address] Respiratory Rate - - Oxygen Saturation 98% 02/10/2020 10:05 PM HUMAN RESOURCE OFFICER Inhaled Oxygen Concentration - - Weight 47.7 kg (105 lb 2.6 oz) 02/10/2020 10:05 PM HUMAN RESOURCE OFFICER Height 160 cm (5' 3 ) 02/10/2020 10:05 PM HUMAN RESOURCE OFFICER Body Mass Index 18.63 02/10/2020 10:05 PM HUMAN RESOURCE OFFICER documented in this encounter Discharge Disposition Disposition Code Departure Means Destination Discharge to home or self care documented in this encounter Plan of Treatment Not on file documented as of this encounter Procedures Procedure Name Priority Date/Time Associated Diagnosis Comments SCAN - LABS 02/11/2020 12:00 AM HUMAN RESOURCE OFFICER URINALYSIS, COMPLETE W/REFLEX TO CULTURE Routine 02/10/2020 10:19 PM HUMAN RESOURCE OFFICER URINALYSIS AND REFLEX TO MICROSCOPIC AND CULTURE Routine 02/10/2020 10:19 PM HUMAN RESOURCE OFFICER documented in this encounter Results * SCAN - LABS (02/11/2020 12:00 AM HUMAN RESOURCE OFFICER) Narrative 02/11/2020 12:00 AM HUMAN RESOURCE OFFICER Ordered by an unspecified provider. us Historical Provider Final Res ult * (ABNORMAL) URINALYSIS, COMPLETE W/REFLEX TO CULTURE (02/10/2020 10:19 PM HUMAN RESOURCE OFFICER) Ur Collection Type CLEAN CATCH [facility] Ur Culture Indicated? C S NOT INDICATED [facility] Urine Color STRAW YELLOW [facility] Urine Clarity CLEAR CLEAR [facility] Urine Glucose (UA) NORMAL NORMAL mg/dL [facility] Urine Bilirubin NEGATIVE NEGATIVE mg/dl [facility] Urine Ketones NEGATIVE NEGATIVE mg/dL [facility] Ur Specific [place] 1.004(L) 1.005 - 1.025 [facility] Urine Blood 0.03(A) NEGATIVE mg/dl [facility] Urine pH 5.0 5.0 - 8.0 [facility] Urine Protein NEGATIVE NEGATIVE mg/dL [facility] Urine Urobilinogen NORMAL NORMAL mg/dL [facility] Urine Nitrite NEGATIVE NEGATIVE [facility] Ur Leukocyte Esterase 25(A) NEGATIVE Sammie/ul [facility] Ur Microscopic Review Indicated or Ordered [facility] Urine RBC 0-2 0 - 2 /HPF [facility] Urine WBC 0-5 0 - 2 /HPF [facility] Urine Bacteria 1+ /HPF [facility] Ur Squamous Epith Cells >50 /LPF [facility] 02/10/2020 10:1 9 PM HUMAN RESOURCE OFFICER 02/10/2020 10:55 PM HUMAN RESOURCE OFFICER Narrative [facility] - 02/10/2020 11:23 PM HUMAN RESOURCE OFFICER Indication(s) for ordering ?? Dysuria ML Clean catch Resulting Agency Comment ER Keri Buckley DO LAB URINE ORDERABLES Final Resu lt [address] [phone] * (ABNORMAL) Urinalysis reflex to microscopic and culture (02/10/2020 10:19 PM HUMAN RESOURCE OFFICER) Ur Collection Type CLEAN CATCH [facility] Ur Culture Indicated? C S NOT INDICATED [facility] Urine Color STRAW YELLOW [facility] Urine Clarity CLEAR CLEAR [facility] Urine Glucose (UA) NORMAL NORMAL mg/dL [facility] Urine Bilirubin NEGATIVE NEGATIVE mg/dl [facility] Urine Ketones NEGATIVE NEGATIVE mg/dL [facility] Ur Specific [place] 1.004(L) 1.005 - 1.025 [facility] Urine Blood 0.03(A) NEGATIVE mg/dl [facility] Urine pH 5.0 5.0 - 8.0 [facility] Urine Protein NEGATIVE NEGATIVE mg/dL [facility] Urine Urobilinogen NORMAL NORMAL mg/dL [facility] Urine Nitrite NEGATIVE NEGATIVE [facility] Ur Leukocyte Esterase 25(A) NEGATIVE Sammie/ul [facility] Ur Microscopic Review Indicated or Ordered [facility] Urine RBC 0-2 0 - 2 /HPF [facility] Urine WBC 0-5 0 - 2 /HPF [facility] Urine Bacteria 1+ /HPF [facility] Ur Squamous Epith Cells >50 /LPF [facility] 02/10/2020 10:1 9 PM HUMAN RESOURCE OFFICER 02/10/2020 10:55 PM HUMAN RESOURCE OFFICER Narrative [facility] - 02/10/2020 11:22 PM HUMAN RESOURCE OFFICER Indication(s) for ordering ?? Dysuria ML Clean catch Resulting Agency Comment ER us Keri Buckley DO LAB MICROBIOLOGY - GENERAL [facility] Final Result [address] [phone] documented in this encounter Visit Diagnoses Not on filedocumented in this encounter Care Teams Ramp Agent Relationship Specialty Start Date End Date Shana Easton MD [address] [address] PCP - General 05/05/18 12/30/20 documented as of this encounter
--- OUTSIDE RECORDS SUMMARY | 2024-03-15 14:56 | XMS_ITS | Encounter Summary ---
Author Organization [facility] Healthcare Address [address] [place] [address] Care Team Providers Care Senior Research Associate Name Role Phone No, Physician Primary Care Provider [phone] Reason for Referral * Diagnostic Imaging (Routine) - Closed Specialty Diagnoses / Procedures Referred By Contac t Referred To Contact Diagnoses Threatened Procedures US OB Under 14 Weeks W Endovaginal Kush Perez MD [address] [place] [address] [place] [address] Phone: tel: fax: [address] [phone] Referral ID Status Reason Start Date Expiration Date Visits Re quested Visits Authorized [id number] Closed 12/31/2020 01/30/2022 1 1 Reason for Visit * Diagnostic Imaging (Routine) - Closed Specialty Diagnoses / Procedures Referred By Contac t Referred To Contact Diagnoses Threatened Procedures US OB Under 14 Weeks W Endovaginal Kush Perez MD [address] [place] [address] [place] [address] Phone: tel: fax: [address] [phone] Referral ID Status Reason Start Date Expiration Date Visits Re quested Visits Authorized [id number] Closed 12/31/2020 01/30/2022 1 1 Encounter Details Date Type Department Care Team (Latest Contact Info) Description 01/02/2021 2:20 PM CDT - 01/02/2021 11:59 PM CDT Hospital Encounter [facility] Ultrasound [address] [place] [id number] Threatened Discharge Disposition: Discharge to home or self [...] on file documented as of this encounter Discharge Disposition Disposition Code Departure Means Destination Discharge to home or self care documented in this encounter Plan of Treatment Not on file documented as of this encounter Procedures Procedure Name Priority Date/Time Associated Diagnosis Comments US OB UNDER 14 WEEKS W ENDOVAGINAL Schedule Routine, Read Routine (OP Routine) 01/02/2021 3:35 PM CDT Threatened documented in this encounter Results * US OB Under 14 Weeks W Endovaginal (01/02/2021 3:35 PM CDT) Anatomical Region Laterality Modality Abdomen N/A Ultrasound 01/02/2021 4:24 PM CDT Narrative 01/02/2021 4:33 PM CDT EXAM DESCRIPTION: ?? US OB UNDER 14 WEEKS W ENDOVAGINAL REASON FOR STUDY: ??Vaginal bleeding. ??Low back pain. ??Threatened . ?? Evaluate for ectopic. Beta-hCG: ?? None available TECHNIQUE: ?? Transabdominal and transvaginal images acquired of the pelvis. COMPARISON: ?? 12/30/2020 FINDINGS: Intrauterine gestational sac: ?? None Uterus: The uterus is anteverted, measuring 6.2 x 4.6 x 5.5 cm. ??The myometrium is homogeneous, without a focal mass. ??The endometrium measures 1 cm in thickness. ??There is heterogeneity of the endometrium noted. ??The gestational sac which was demonstrated within the uterus on the previous examination is not clearly depicted on the current study. Right Ovary/Adnexa: The right ovary measures ??3.2 x 2.0 x 2.5 cm. ??There is documentation of color Doppler flow in the right ovary. The right ovary appears unremarkable. ??No adnexal mass. Left Ovary/Adnexa: The left ovary measures ??3.0 x 1.7 x 2.5 cm. ??There is documentation of color Doppler flow in the left ovary. ??The left ovary appears unremarkable. ??No adnexal mass. Free Fluid: ??None. Other Findings: ??There are scattered echoes demonstrated within the urinary bladder. ??This may reflect underlying debris. IMPRESSION: ?? 1. ??Previously documented intrauterine gestational sac on ultrasound from 12/30/2020 is no longer visualized. ??There is mild heterogeneity of the endometrium which may reflect products of conception or blood products. 2. ??Ovaries unremarkable in appearance with flow documented bilaterally. ??No discrete adnexal mass. 3. ??No significant free fluid in the cul-de-sac. 4. ??Urinary bladder distended with echogenic foci in the lumen of the bladder, suggesting some component of debris. ??Correlate with urinalysis. ??Presumably the previously visualized intrauterine gestational sac has passed, as with a missed . ??There is heterogeneity of the endometrium, suggesting blood products. ??Residual products of conception difficult to entirely exclude. ??Correlation with serial beta HCG levels necessary. ??There is no adnexal lesion to suggest ectopic . ??No significant free pelvic fluid. ??Follow-up with ultrasound as warranted on a clinical basis. THIS IS AN ELECTRONICALLY VERIFIED FINAL REPORT 01/02/2021 4:33 PM - Electronically signed by Alana Hernández M.D. TB: ALAN D: ??01/02/2021 4:32 PM T: ??01/02/2021 4:33 PM Report ID: [id number] Reading Location: ??[id number] Procedure Note Alana Hernández MD - 01/02/2021 EXAM DESCRIPTION: US OB UNDER 14 WEEKS W ENDOVAGINAL REASON FOR STUDY: Vaginal bleeding. Low back pain. Threatened . Evaluate for ectopic. Beta-hCG: None available TECHNIQUE: Transabdominal and transvaginal images acquired of thepelvis. COMPARISON: 12/30/2020 FINDINGS: Intrauterine gestational sac: None Uterus: The uterus is anteverted, measuring 6.2 x 4.6 x 5.5 cm. The myometrium is homogeneous, without a focal mass. The endometrium measures1 cm in thickness. There is heterogeneity of the endometrium noted. The gestational sac which was demonstrated within the uterus on the previous examination is not clearly depicted on the current study. Right Ovary/Adnexa: The right ovary measures 3.2 x 2.0 x 2.5 cm. Thereis documentation of color Doppler flow in the right ovary. The right ovary appears unremarkable. No adnexal mass. Left Ovary/Adnexa: The left ovary measures 3.0 x 1.7 x 2.5 cm. There is documentation of color Doppler flow in the left ovary. The left ovaryappears unremarkable. No adnexal mass. Free Fluid: None. Other Findings: There are scattered echoes demonstrated within theurinary bladder. This may reflect underlying debris. IMPRESSION: 1. Previously documented intrauterine gestational sac on ultrasound from 12/30/2020 is no longer visualized. There is mild heterogeneity of the endometrium which may reflect products of conception or blood products. 2. Ovaries unremarkable in appearance with flow documented bilaterally.No discrete adnexal mass. 3. No significant free fluid in the cul-de-sac. 4. Urinary bladder distended with echogenic foci in the lumen of thebladder, suggesting some component of debris. Correlate with urinalysis. Presumably the previously visualized intrauterine gestational sac has passed, as with a missed . There is heterogeneity of theendometrium, suggesting blood products. Residual products of conception difficult to entirely exclude. Correlation with serial beta HCG levels necessary.There is no adnexal lesion to suggest ectopic . No significant freepelvic fluid. Follow-up with ultrasound as warranted on a clinical basis. THIS IS AN ELECTRONICALLY VERIFIED FINAL REPORT 01/02/2021 4:33 PM - Electronically signed by Alana Hernández M.D. TB: ALAN Report ID: [id number] Reading [facility] Kush Perez MD IMG OB US PROCEDURES Estefany l Result documented in this encounter Visit Diagnoses Diagnosis Threatened documented in this encounter Care Teams Senior Research Associate Relationship Specialty Start Date End Date No, Physician PCP - General 12/31/20 05/21/22 documented as of this encounter
--- OUTSIDE RECORDS SUMMARY | 2024-03-15 14:56 | XMS_ITS | Encounter Summary ---
Author Organization [facility] Healthcare Address [address] [place] [address] Care Team Providers Care Local Az Truck Driver Name Role Phone Shana Easton MD Primary Care Provider [phone] Encounter Details Date Type Department Care Team (Late st Contact Info) Description 08/15/2020 10:25 PM CDT - 08/15/2020 11:26 PM CDT Emergency [facility] Emergency Department [address] [place] [address] Unknown, Notinfile Discharge Disposition: Left without being seen Social History Tobacco Use Types Packs/Day Years Used Date Smoking Tobacco: Never Assessed Comments Unknown Sex and Gender Information Value Date Recorded Sex Assigned at Not on file Legal Sex Female 12:21 PM CDT Gender Identity Not on file Sexual Orientation Not on file documented as of this encounter Last Filed Vital Signs Vital Sign Reading Time Taken Comments Blood Pressure 122/78 08/15/2020 10:47 PM CDT Pulse 99 08/15/2020 10:47 PM CDT Temperature 36.7 ??C (98 ??F) 08/15/2020 10:47 PM CDT Respiratory Rate - - Oxygen Saturation 100% 08/15/2020 10:47 PM CDT Inhaled Oxygen Concentration - - Weight 48.3 kg (106 lb 7.7 oz) 08/15/2020 10:47 PM CDT Height 160 cm (5' 3 ) 08/15/2020 10:47 PM CDT Body Mass Index 18.86 08/15/2020 10:47 PM CDT documented in this encounter Discharge Disposition Disposition Code Departure Means Destination Left without being seen documented in this encounter Plan of Treatment Not on file documented as of this encounter Procedures Procedure Name Priority Date/Time Associated Diagnosis Comments SCAN - LABS 08/16/2020 12:00 AM CDT documented in this encounter Results * SCAN - LABS (08/16/2020 12:00 AM CDT) Narrative 08/16/2020 12:00 AM CDT Ordered by an unspecified provider. Historical Provider MD Final Res ult documented in this encounter Visit Diagnoses Not on filedocumented in this encounter Care Teams Local Az Truck Driver Relationship Specialty Start Date End Date Shana Easton MD [address] [place] [address] PCP - General 05/05/18 12/30/20 documented as of this encounter
--- OUTSIDE RECORDS SUMMARY | 2024-03-15 14:56 | XMS_ITS | Encounter Summary ---
Author Organization [facility] Address [address] [place] [address] Care Team Providers Care Vp Production Name Role Phone No, Physician Primary Care Provider [phone] Encounter Details Date Type Department Care Team (Late st Contact Info) Description 10/18/2022 E-Visit [facility] Virtual Care [address] [place] [address] Dede Nelson, OZIEL [address] [place], [place] [id number] E-Visit for Urinary Tract Infection Social History Tobacco Use Types Packs/Day Years [...] as of this encounter Miscellaneous Notes * E-Visit Note - Dede Nelson NP - 10/18/2022 5:16 PM CDT Mariam Lea 10/18/2022 E-Visit Submission Subjective/Objective: Mariam Lea contacted the office today via e-visit for UTI. The patient-submitted questionnaire was assessed for pertinent information and the patient's problem list, medication list, and allergies were reviewed as part of the e-visit. The chart was updated to identify any changes in these areas. Assessment: No diagnosis found. Plan: The patient was given information regarding any new medication(s) prescribed, if applicable, as well as any [id number] remedies. She was given instructions regarding follow up and timeframe if symptoms worsen or don???t improve. These instructions were included in the Brandle message reply tothe patient. Patient Instructions were included in the message reply to patient. My total encounter time on 10/18/2022 was 5 minutes which was spent in the activities documented inthe note. Dede Nelson NP documented in this encounter Plan of Treatment Not on file documented as of this encounter Visit Diagnoses Not on filedocumented in this encounter Care Teams Vp Production Relationship Specialty Start Date End Date No, Physician PCP - General 08/06/22 documented as of this encounter
--- OUTSIDE RECORDS SUMMARY | 2024-03-15 14:56 | XMS_ITS | Encounter Summary ---
Author Organization [facility] Healthcare Address [address] [place] [address] Care Team Providers Care Neurocritical Care Physician Name Role Phone No, Physician Primary Care Provider [phone] Reason for Visit * Reason Comments Vaginal Bleeding - Encounter Details Date Type Department Care Team (Late st Contact Info) Description 12/31/2020 7:13 PM CDT - 12/31/2020 9:12 PM CDT Emergency [facility] Emergency Department [facility] [place] [address] Threatened (Primary Dx) Discharge Disposition: Discharge to home [...] Sign Reading Time Taken Comments Blood Pressure 106/75 12/31/2020 9:11 PM CDT Pulse 81 12/31/2020 9:11 PM CDT Temperature 36.7 ??C (98 ??F) 12/31/2020 7:04 PM CDT Respiratory Rate 16 12/31/2020 9:11 PM CDT Oxygen Saturation 98% 12/31/2020 9:11 PM CDT Inhaled Oxygen Concentration - - Weight 48 kg (105 lb 13.1 oz) 12/31/2020 7:04 PM CDT Height 160 cm (5' 3 ) 12/31/2020 7:04 PM CDT Body Mass Index 18.75 12/31/2020 7:04 PM CDT documented in this encounter Discharge Instructions * Discharge Instructions* Nadiya Macias PA - 12/31/2020 8:49 PM CDT Follow-up with your OBGYN in 2 days for a repeat beta hCG and a repeat ultrasound in 1 week. You can take Tylenol as directed for pain. Return to the ER if you develop any new or worsening symptoms. * Attachments The following attachments cannot be sent through Care Everywhere. * Threatened Miscarriage (AfterCare(R) Instructions(ER/ED)) (Citizen Of [place]) documented in this encounter Discharge Disposition Disposition Code Departure Means Destination Discharge to home or self care documented in this encounter ED Notes * Nadiya Macias PA - 12/31/2020 7:10 PM CDT HPI Chief Complaint Patient presents with ??? Vaginal Bleeding - HPI 7:10 PM Mariam Lea is a 20 y.o. female currently approximately 8 weeks gestation presentingto the ED c/o increased vaginal bleeding. Patient reports that she was seen here yesterday for vaginal bleeding, lower abdominal pain, and back pain. She states at that time she had an ultrasound that showed a living intrauterine gestation. Patient states that she was instructed to return to the ERif she developed heavier bleeding or passed any clots. Patient states that for the past 2 hours shehas been bleeding through a pad an hour. She also states that she has passed a few baseball sized blood clots. Patient notes that since she began having heavier bleeding she has been feeling lightheaded. Patient History: Past Medical History: Diagnosis Date ??? Asthma Past Surgical History: Procedure Laterality Date ??? TONSILECTOMY, ADENOIDECTOMY, BILATERAL MYRINGOTOMY AND TUBES History reviewed. No pertinent family history. Social History Tobacco Use ??? Smoking status: Never Smoker Substance Use Topics ??? Alcohol use: Never ??? Drug use: Never No current facility-administered medications for this encounter. No current outpatient medications on file. Review of Systems Review of Systems All systems reviewed and are neg or non contributory for this patients presentation today other than as stated in the HPI . Physical Exam ED Triage Vitals Temp Pulse Resp BP SpO2 12/31/20190312/31/20190312/31/20190312/31/20190312/31/201903 36.7 ??C (98 ??F) 89 18 113/76 98 % Temp src Heart Rate Source Patient Position BP Location FiO2 (%) 12/31/201903 -- 12/31/202110 -- -- Oral Sitting Physical Exam Constitutional: Appearance: Normal appearance. She is not ill-appearing or toxic-appearing. HENT: Head: Normocephalic. Eyes: Extraocular Movements: Extraocular movements intact. Conjunctiva/sclera: Conjunctivae normal. Pupils: Pupils are equal, round, and reactive to light. Cardiovascular: Rate and Rhythm: Normal rate and regular rhythm. Heart sounds: Normal heart sounds. Pulmonary: Effort: Pulmonary effort is normal. Abdominal: General: Bowel sounds are normal. Palpations: Abdomen is soft. Tenderness: There is no abdominal tenderness. Genitourinary: Comments: Chaperoned by KEITH Trinidad agricultural technician; a few blood clots present in the vaginal vault. Cervix appears closed Musculoskeletal: General: Normal range of motion. Cervical back: Normal range of motion. Skin: General: Skin is warm and dry. Neurological: General: No focal deficit present. Mental Status: She is alert and oriented to person, place, and time. Psychiatric: Mood and Affect: Mood normal. Behavior: Behavior normal. Procedures MDM Labs Reviewed BASIC METABOLIC PANEL - Abnormal Result Value Sodium 142 Potassium, pl 3.3 Chloride 106 CO2 24 Anion gap 12 BUN 7 (*) Creatinine 0.60 Glucose 123 Calcium 9.6 HCG, BLOOD, QUANTITATIVE - Abnormal hCG, quant 879.2 (*) CBC WITH AUTO DIFFERENTIAL WBC 8.1 Hgb 12.6 Hct 37.8 Plt 212 MPV 10.5 RBC 4.23 MCV 89.4 MCH 29.8 MCHC 33.3 RDW CV 12.4 RDW SD 40.3 NRBC abs 0.00 DIFFERENTIAL AUTO Neutrophil abs 5.6 Imm gran abs 0.0 Lymphocyte abs 1.8 Monocyte abs 0.6 Eosinophil abs 0.1 Basophil abs 0.0 Neutrophil pct 68.7 Imm gran pct 0.2 Lymphocyte pct 22.4 Monocyte pct 7.4 Eosinophil pct 1.1 Basophil pct 0.2 EGFR eGFR 129 No orders to display BP 106/75 (Patient Position: Sitting) Pulse 81 Temp 36.7 ??C (98 ??F) (Oral) Resp 16 Ht 160cm (5' 3 ) Wt 48 kg (105 lb 13.1 oz) LMP 11/05/2020 SpO2 98% BMI 18.75 kg/m?? [facility] ED Course as of Jan 01 2112 Time: 01/01 1924 Comment: On chart review, patient was seen here yesterday. At that time she had a normal CBC, CMP with potassium 3.2, unremarkable urinalysis, beta hCG 1257, negative vaginitis panel, negative gonorrhea chlamydia testing, and an ultrasound that showed Single live intrauterine gestation. heart rate 95 beats per minute. By: Nadiya Macias PA Time: 12/31 2021 Comment: CBC with hemoglobin of 12.8. BMP is normal. Beta hCG is now 879.2. Patient states that sheis now bleeding less and passing smaller clots. Given continued bleeding and drop in beta HCG, patient likely miscarrying. She states that she feels much better after IV fluids. Patient expresses understanding of plan and agrees. All questions answered. By: Nadiya Macias PA This examination was transcribed using the [employer] voice recognition system without human telephone maintenance mechanic. In an effort to expedite patient care, this report has not been adjusted for typographical, grammatical, and syntax by a trained medical operations supervisor. Clinical Impression: Threatened Nadiya Macias PA 12/31/202111 Cosigned by Camille Yeh MD at 01/01/2021 2:18 AM CDT * Marilin Molina RN - 12/31/2020 7:02 PM CDT States was here last pm and told she was miscarrying - to return if heavy bleading - states cramping and bleeding has increased- also feels dizzy documented in this encounter Plan of Treatment Not on file documented as of this encounter Procedures Procedure Name Priority Date/Time Associated Diagnosis Comments EGFR STAT 12/31/2020 7:20 PM CDT DIFFERENTIAL AUTO STAT 12/31/2020 7:2 0 PM CDT CBC WITH AUTO DIFFERENTIAL STAT 12/31/2020 7:20 PM CDT HCG, BLOOD, QUANTITATIVE STAT 12/31/2020 7:20 PM CDT BASIC METABOLIC PANEL STAT 12/31/2020 7:20 PM CDT documented in this encounter Results * eGFR (12/31/2020 7:20 PM CDT) eGFR 129 mL/min/1.7 3 m2 ALBERTO Comment: Interpretive Data Reference Interval Normal ?>/= 90 mL/min/1.73m2 Mildly decreased* ? 60 - 89 mL/min/1.73m2 Mildly to moderately decreased ?45 - 59 mL/min/1.73m2 Moderately to severely decreased ??30 - 44 mL/min/1.73m2 Severely decreased ?15 - 29 mL/min/1.73m2 Kidney Failure ?< 15 ??mL/min/1.73m2 *Relative to young adult level Estimated glomerular filtration rate is determined by the CKD-EPI equation recommended by the National Kidney Foundation (KDIGO 2012 Clinical Practice Guideline for the Evaluation and Management of Chronic Kidney Disease. Kidney Intnl Suppl Mar 2012;3:1). The CKD-EPI equation should not be used for patients with unstable renal function and has not been validated in children and those over 70. Current interpretive data was last reviewed 2020 Testing performed by: [address] [address] Blood 12/31/2020 7:20 PM CDT 12/31/2020 7:25 PM CDT us Nadiya [facility] BLO[facility] ORDERABLE S Final Result [facility] [address] [facility] Department [place] [address] * Differential, auto (12/31/2020 7:20 PM CDT) Neutrophil abs 5.6 1.7 - 6.5 K/cumm ALBERTO Comment:Testing performed by : [address] [address] Imm gran abs 0.0 0.0 - 0.1 K/cumm ALBERTO Comment:Testing performed by : [address] [address] Lymphocyte abs 1.8 0.8 - 3.3 K/cumm ALBERTO Comment:Testing performed by : [address] [address] Monocyte abs 0.6 0.2 - 0.8 K/cumm ALBERTO Comment:Testing performed by : [address] [address] Eosinophil abs 0.1 0.0 - 0.5 K/cumm [facility] Comment:Testing performed by : [address] [address] Basophil abs 0.0 0.0 - 0.1 K/cumm [facility] Comment:Testing performed by : [address] [address] Neutrophil pct 68.7 % [facility] Comment: Interpretive Data Percent cell count reference ranges are not reported, since discordance with absolute values may lead to misinterpretation of CBC data. Current Interpretive Data was last revised on 2017. Testing performed by: [address] [address] Imm gran pct 0.2 % [facility] Comment: Interpretive Data Percent cell count reference ranges are not reported, since discordance with absolute values may lead to misinterpretation of CBC data. Current Interpretive Data was last revised on 2017. Testing performed by: [address] [address] Lymphocyte pct 22.4 % [facility] Comment: Interpretive Data Percent cell count reference ranges are not reported, since discordance with absolute values may lead to misinterpretation of CBC data. Current Interpretive Data was last revised on 2017. Testing performed by: [address] [address] Monocyte pct 7.4 % [facility] Comment: Interpretive Data Percent cell count reference ranges are not reported, since discordance with absolute values may lead to misinterpretation of CBC data. Current Interpretive Data was last revised on 2017. Testing performed by: [address] [address] Eosinophil pct 1.1 % [facility] Comment: Interpretive Data Percent cell count reference ranges are not reported, since discordance with absolute values may lead to misinterpretation of CBC data. Current Interpretive Data was last revised on 2017. Testing performed by: [address] [address] Basophil pct 0.2 % [facility] Comment: Interpretive Data Percent cell count reference ranges are not reported, since discordance with absolute values may lead to misinterpretation of CBC data. Current Interpretive Data was last revised on 2017. Testing performed by: [facility], [address] [place] [address]., [address] Blood 12/31/2020 7:20 PM CDT 12/31/2020 7:26 PM CDT Nadiya [facility]LO[facility] ORDERABLE S Final Result Performing Organization Address [facility] de Phone Number ALBERTO [address] [facility] [place], [place] [id number] * (ABNORMAL) hCG, blood, quantitative (12/31/2020 7:20 PM CDT) hCG, quant 879.2(H) 0.0 - 5.0 IUnits/L [facility]BERTO DELUCA Comment: Interpretive Data Non- Female premenopausal: < or = 5.0 IUnits/L Men: < 5.0 IUnits/L Weeks of Gestation ? Reference Interval ?? 3 to 6 ? 5.8-31,795 IUnits/L ?? 7 to 10 ? 3,697-186,977 IUnits/L ??12 to 15 ?27,832- 70,791 IUnits/L ??16 to 18 ? 9,040- 58,179 IUnits/L Current Interpretive Data was last revised on 2017. Testing performed by: [facility], [address] [place] [address]., [address] Blood 12/31/2020 7:20 PM CDT 12/31/2020 7:25 PM CDT Nadiya [facility] BLO[facility] ORDERABLE S Edited Result - Final Performing Organization Address [facility] Co de Phone Number ALBERTO [address] [facility] [place] [address] * (ABNORMAL) Basic metabolic panel (12/31/2020 7:20 PM CDT) Sodium 142 135 - 145 mmol/L ALBERTO Comment:Testing performed by : [address] [address] Potassium, pl 3.3 3.3 - 4.9 mmol/L ALBERTO Comment:Testing performed by : [address] [address] Chloride 106 97 - 110 mmol/L [facility] Comment:Testing performed by : [address] [address] CO2 24 22 - 32 mmol/L ALBERTO Comment:Testing performed by : [address] [address] Anion gap 12 2 - 15 mmol/L ALBERTO Comment:Testing performed by : [address] [address] BUN 7(L) 8 - 25 mg/dL [facility] Comment:Testing performed by : [address] [address] Creatinine 0.60 0.60 - 1.10 mg/dL [facility] Comment:Testing performed by : [address] [address] Glucose 123 70 - 199 mg/dL [facility] Comment: Interpretive Data Fasting glucose >/= 126 [...] classification and Diagnosis of Diabetes Diabetes Care 2017;40 (Suppl. 1):S11. Current interpretive data was last revised 2017. Testing performed by: [address], [place]., [address] Calcium 9.6 8.5 - 10.3 mg/dL [facility] Comment:Testing performed by : [address] [address] Blood 12/31/2020 7:20 PM CDT 12/31/2020 7:25 PM CDT us Nadiya [facility] BLOOD ORDERABLE S Final Result [facility] [address] [facility] Department [place] [address] * CBC with auto differential (12/31/2020 7:20 PM CDT) Pathologist [facility] WBC 8.1 3.8 - 9.9 K/cumm ALBERTO Comment:Testing performed by : [address] [address] Hgb 12.6 11.9 - 15.5 g/dL ALBERTO Comment:Testing performed by : [address] [address] Hct 37.8 35.6 - 45.5 % [facility]ERTO Comment:Testing performed by : [address] [address] Plt 212 150 - 400 K/cumm AL[facility]ERTO Comment:Testing performed by : [address] [address] MPV 10.5 9.1 - 12.3 fL AL[facility]ERTO Comment:Testing performed by : [address] [address] RBC 4.23 3.90 - 5.20 M/cumm ALBERTO Comment:Testing performed by : [address] [address] MCV 89.4 81.3 - 96.4 fL AL[facility]ERTO Comment:Testing performed by : [address] [address] MCH 29.8 27.1 - 33.3 pg ALBERTO DELUCA Comment:Testing performed by : [address] [address] MCHC 33.3 32.3 - 35.7 g/dL ALBERTO Comment:Testing performed by : [address] [address] RDW CV 12.4 11.1 - 14.9 % ALBERTO DELUCA Comment:Testing performed by : [address] [address] RDW SD 40.3 35.7 - 48.1 fL ALBERTO DELUCA Comment:Testing performed by : [address] [address] NRBC abs 0.00 0.00 - 0.01 K/cumm ALBERTO DELUCA Comment:Testing performed by : [address] [address] Blood 12/31/2020 7:20 PM CDT 12/31/2020 7:26 PM CDT us Nadiya [facility] BLOOD ORDERABLE S Final Result [facility] [address] Department [place] [address] documented in this encounter Visit Diagnoses Diagnosis Threatened - Primary documented in this encounter Care Teams Neurocritical Care Physician Relationship Specialty Start Date End Date No, Physician PCP - General 12/31/20 05/21/22 documented as of this encounter
--- OUTSIDE RECORDS SUMMARY | 2024-03-15 14:56 | XMS_ITS | Encounter Summary ---
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 [address] [place] [address]., [address] RBC 4.40 3.90 - 5.20 M/cumm ALBERTO DELUCA Comment:Testing performed by : [address] [address] MCV 88.2 81.3 - 96.4 fL ALBERTO Comment:Testing performed by : [address] [address] MCH 28.9 27.1 - 33.3 pg ALBERTO DELUCA Comment:Testing performed by : [address] [address] MCHC 32.7 32.3 - 35.7 g/dL ALBERTO DELUCA Comment:Testing performed by : [address] [address] RDW CV 12.3 11.1 - 14.9 % ALBERTO Comment:Testing performed by : [address] [address] RDW SD 40.0 35.7 - 48.1 fL ALBERTO Comment:Testing performed by : [address] [address] NRBC abs 0.00 0.00 - 0.01 K/cumm ALBERTO Comment:Testing performed by : [address] [address] Blood 06/20/2022 11:4 4 AM CDT 06/20/2022 12:16 PM CDT us Trudi [facility] BLOOD ORDERABLES Final [facility]ul t [facility] [address] [facility] Department [place] [address] documented in this encounter Visit Diagnoses Diagnosis Paresthesias- Primary Disturbance of skin sensation documented in this encounter Administered Medications Inactive Administered Medications - up to 3 most recent administrations Medication Order MAR Action Action Date Dose Rate Site acetaminophen (TYLENOL) tablet 975 mg 975 mg (rounded from 1,000 mg), oral, Once, On Sat06/20/22 at 1305, For 1 dose Given 06/20/2022 1:10 PM CDT 975 mg sodium chloride 0.9% bolus 1,000 mL 1,000 mL, intravenous, at 1,000 mL/hr, Administer over 1 Hours, Once, On Sat06/20/22 at 1306, For 1 dose New Bag 06/20/2022 1:11 PM CDT 1,000 mL 100 0 mL/hr documented in this encounter Active and Recently Administered Medications Times are shown in CDT. Scheduled Medication Order 06/18/2022 06/19/2022 06/20/2022 acetaminophen (TYLENOL) tablet 975 mg (COMPLETED) 975 mg (rounded from 1,000 mg), oral, Once, On Sat06/20/22 at 1305, For 1 dose 1310 (Given - Provid er: Trinidad Menendez RN) sodium chloride 0.9% bolus 1,000 mL (COMPLETED) 1,000 mL, intravenous, at 1,000 mL/hr, Administer over 1 Hours, Once, On Sat06/20/22 at 1306, For 1 dose 1311 (New Bag - Prov ider: Trinidad Menendez RN)1433 (Stopped - Provider: Trinidad Menendez RN) documented in this encounter Care Teams Field Party Manager Relationship Specialty Start Date End Date La Nena Ferro NP [address] [facility] [address] [place] [address] PCP - General Family Medicine 05/22/22 08/05/22 documented as of this encounter
--- OUTSIDE RECORDS SUMMARY | 2024-03-15 14:56 | XMS_ITS | Encounter Summary ---
Author Organization [facility] Healthcare Address [address] [place] [address] Care Team Providers Care Wheel Shop Supervisor Name Role Phone No, Physician Primary Care Provider [phone] Encounter Details Date Type Department Care Team (Late st Contact Info) Description 01/02/2021 2:20 PM CDT Lab [facility] [address] [place] [id number] Social History Tobacco Use Types Packs/Day Years [...] Procedure Name Priority Date/Time Associated Diagnosis Comments HCG, BLOOD, QUANTITATIVE Routine 01/02/2021 2:27 PM CDT documented in this encounter Results * (ABNORMAL) hCG, blood, quantitative (01/02/2021 2:27 PM CDT) hCG, quant 208.4(H) 0.0 - 5.0 IUnits/L ALBERTO DELUCA Comment: [...] last revised on 2017. Testing performed by: [facility], [address] [place] [address]., [address] Blood 01/02/2021 2:27 PM CDT 01/02/2021 3:01 PM CDT us Kush Perez MD LAB BLOOD ORDERABLES Edit ed Result - Final Performing Organization Address City/State/[facility] Co de Phone Number ALBERTO [address] [facility] Department [place] [address] documented in this encounter Visit Diagnoses Not on filedocumented in this encounter Care Teams Wheel Shop Supervisor Relationship Specialty Start Date End Date No, Physician PCP - General 12/31/20 05/21/22 documented as of this encounter
--- OUTSIDE RECORDS SUMMARY | 2024-03-15 14:56 | XMS_ITS | Encounter Summary ---
Author Organization [facility] Healthcare Address [address] [place] [address] Care Team Providers Care Edgerman Name Role Phone La Nena Ferro NP Primary Care Provider [phone] Encounter Details Date Type Department Care Team (Late st Contact Info) Description 07/08/2022 Patient Self-Triage [facility] HealthCare/ Physicians [facility] [place] [address] Mychart, Generic Provider [address] [place], [place] [address] Social History Tobacco Use Types Packs/Day Years [...] on filedocumented in this encounter Care Teams Edgerman Relationship Specialty Start Date End Date La Nena Ferro NP [address] [facility] [address] [place] [address] PCP - General Family Medicine 05/22/22 08/05/22 documented as of this encounter
--- OUTSIDE RECORDS SUMMARY | 2024-03-15 14:56 | XMS_ITS | Encounter Summary ---
Author Organization [facility] Healthcare Address [address] [place] [address] Care Team Providers Care Senior Mobile Solutions Architect Name Role Phone La Nena Ferro NP Primary Care Provider [phone] Encounter Details Date Type Department Care Team (Late st Contact Info) Description 07/09/2022 Patient Self-Triage [facility] HealthCare/ Physicians [facility] [place] [address] Mychart, Generic Provider [address] [place], [place] [id number] Social History Tobacco Use Types Packs/Day Years [...] on filedocumented in this encounter Care Teams Senior Mobile Solutions Architect Relationship Specialty Start Date End Date La Nena Ferro NP [address] [facility] [address] [place] [address] PCP - General Family Medicine 05/22/22 08/05/22 documented as of this encounter
--- OUTSIDE RECORDS SUMMARY | 2024-03-15 14:56 | XMS_ITS | Encounter Summary ---
Author Organization [facility] Address [address] [place] [address] Care Team Providers Care Costume Shop Coordinator Name Role Phone Shana Easton MD Primary Care Provider [phone] No, Physician Primary Care Provider [phone] Reason for Referral * Diagnostic Imaging (Routine) - Closed Specialty Diagnoses / Procedures Referred By Dora t Referred To Contact Diagnoses Threatened Procedures US OB Under 14 Weeks W Endovaginal Kush Perez MD [facility] [place] [address] Phone: tel: fax: [address] [phone] Referral ID Status Reason Start Date Expiration Date Visits Re quested Visits Authorized [id number] Closed 12/31/2020 01/30/2022 1 1 Reason for Visit * Reason Comments Vaginal Bleeding - Encounter Details Date Type Department Care Team (Late st Contact Info) Description 12/30/2020 10:14 PM CDT - 12/31/2020 1:27 AM CDT Emergency [facility] Emergency Department [address] [place] [id number] Kush Perez MD [address] [place] [id number] Threatened (Primary Dx); Less than 8 weeks gestation of Discharge Disposition: Discharge to home or self [...] Sign Reading Time Taken Comments Blood Pressure 93/62 12/31/2020 1:20 AM CDT Pulse 65 12/31/2020 1:20 AM CDT Temperature 36.9 ??C (98.4 ??F) 12/30/2020 9:59 PM CD T Respiratory Rate 18 12/31/2020 1:20 AM CDT Oxygen Saturation 98% 12/31/2020 1:20 AM CDT Inhaled Oxygen Concentration - - Weight 48.7 kg (107 lb 5.8 oz) 12/30/2020 9:59 P M CDT Height 160 cm (5' 3 ) 12/30/2020 9:59 PM CDT Body Mass Index 19.02 12/30/2020 9:59 PM CDT documented in this encounter Discharge Instructions * Discharge Instructions* Kush Perez MD - 12/31/2020 1:12 AM CDT Please make sure you get a repeat bhcg in 48 hours and repeat ultrasound in 1 week and follow up with your fusion analyst or the fusion analyst referral in 1 week. * Attachments The following attachments cannot be sent through Care Everywhere. * First Trimester (AfterCare(R) Instructions(ER/ED)) (Tunisian) * Threatened Miscarriage (AfterCare(R) Instructions(ER/ED)) (Tunisian) documented in this encounter Discharge Disposition Disposition Code Departure Means Destination Discharge to home or self care documented in this encounter ED Notes * Kush Perez MD - 12/30/2020 10:41 PM CDT HPI Chief Complaint Patient presents with ??? Vaginal Bleeding - HPI 20 y/o at 8w0d by LMP (11/05/20) who presents today with vaginal bleeding and back pain x 1 day. Onset about 2-3 hours prior to arrival while she was in the shower. States she saw a small clot. Mild lower back pain x 2-3 days. No n/v/d. No chest pain or shortness of breath. No fevers. No urinary sxs. No dysuria or hematuria. She has not seen an fusion analyst for this yet. She has an appointment on 01/09/21. Patient History: There are no problems to display for this patient. No past medical history on file. No past surgical history on file. No family history on file. Social History Tobacco Use ??? Smoking status: Not on file Substance Use Topics ??? Alcohol use: Not on file ??? Drug use: Not on file Social History Social History Narrative ??? Not on file Review of Systems Review of Systems Constitutional: Negative for diaphoresis and fever. HENT: Negative for nosebleeds, sneezing and trouble swallowing. Eyes: Negative for discharge and redness. Respiratory: Negative for cough and shortness of breath. Cardiovascular: Negative for chest pain and palpitations. Gastrointestinal: Negative for abdominal pain, diarrhea, nausea and vomiting. Genitourinary: Positive for vaginal bleeding. Negative for dysuria and hematuria. Musculoskeletal: Positive for back pain. Negative for gait problem and neck pain. Skin: Negative for rash and wound. Neurological: Negative for facial asymmetry and headaches. Physical Exam ED Triage Vitals [12/30/20 2159] Temp Pulse Resp BP SpO2 36.9 ??C (98.4 ??F) 76 14 117/70 100 % Temp src Heart Rate Source Patient Position BP Location FiO2 (%) Oral -- -- -- -- Physical Exam Vitals and nursing note reviewed. Exam conducted with a deputy sheriff present (TIMOTEO Ceja present). Constitutional: General: She is not in acute distress. Appearance: She is well-developed. HENT: Head: Normocephalic and atraumatic. Eyes: Conjunctiva/sclera: Conjunctivae normal. Cardiovascular: Rate and Rhythm: Normal rate and regular rhythm. Heart sounds: Normal heart sounds. No murmur heard. Pulmonary: Effort: Pulmonary effort is normal. No respiratory distress. Breath sounds: Normal breath sounds. Abdominal: General: Bowel sounds are normal. There is no distension. Palpations: Abdomen is soft. Tenderness: There is no abdominal tenderness. There is no guarding. Genitourinary: Vagina: Bleeding (small amount of bleeding noted in the vaginal vault. No active hemorrhage noted. ) present. Cervix: No cervical motion tenderness or erythema. Uterus: Normal. Adnexa: Right adnexa normal and left adnexa normal. Right: No tenderness. Left: No tenderness. Musculoskeletal: Cervical back: Neck supple. Skin: General: Skin is warm and dry. Neurological: Mental Status: She is alert and oriented to person, place, and time. [facility] ED Course as of Jan 01 112 Time: 12/30 2257 Value: ABO/Rh: ABO/RH. A Positive Comment: Rh Positive - rhogam not indicated. By: Kush Perez MD Time: 12/30 2338 Comment: UA shows no signs of UTI. CBC unremarkable. Hgb stable. CMP unremarkable. By: Kush Perez MD Time: 12/30 2338 Comment: BhG 1257 By: Kush Perez MD Time: 12/30 8796 Comment: Vaginitis panel is negative By: Kush Perez MD Time: 12/31 42 Comment: Chlamydia and gonorrhea negative. By: Kush Perez MD Time: 12/31 105 Value: US Transvaginal Comment: Single live intrauterine gestation. heart rate 95 beats per minute. 5w5d by US. By: Kush Perez MD Time: 12/31 105 Comment: Findings discussed with the pt. She understands to have a repeat bhcg in 48 hours and ultrasound in 1 week. She will call her fusion analyst to get an expedited appointment for further workup. Vitals stable on discharge. By: Kush Perez MD Final diagnoses: Threatened Less than 8 weeks gestation of Kush Perez MD 12/31/20111 * Kaylan Chahal RN - 12/30/2020 9:58 PM CDT Pt states bright red vaginal bleeding starting today, approx 8 weeks . LMP 8-14-21. Has nothad an US yet documented in this encounter Plan of Treatment Not on file documented as of this encounter Procedures Procedure Name Priority Date/Time Associated Diagnosis Comments US TRANSVAGINAL ED 12/31/2020 12:13 AM CDT N. GONORRHOEAE/C. TRACHOMATIS AMPLIFICATION STAT 12/30/2020 10:45 PM CDT VAGINITIS PANEL STAT 12/30/2020 10:45 PM CDT POCT HCG, URINE Routine 12/30/2020 10:11 PM CDT EGFR STAT 12/30/2020 10:09 PM CDT DIFFERENTIAL AUTO STAT 12/30/2020 10: 09 PM CDT CBC WITH AUTO DIFFERENTIAL STAT 12/30/2020 10:09 PM CDT HC BLD TYPING ABO STAT 12/30/2020 10: 09 PM CDT HCG, BLOOD, QUANTITATIVE STAT 12/30/2020 10:09 PM CDT COMPREHENSIVE METABOLIC PANEL STAT 12/30/2020 10:09 PM CDT URINALYSIS AND REFLEX TO MICROSCOPIC AND CULTURE STAT 12/30/2020 10:06 PM CDT URINALYSIS, MICROSCOPIC ONLY STAT 12/30/2020 10:06 PM CDT documented in this encounter Results * US [...] PM T: ??01/02/2021 4:33 PM Report ID: [id number] Reading Location: ??[id number] Procedure Note Alana Hernández [...] Electronically signed by Alana Hernández M.D. TB: TB Report ID: [id number] Reading Location: [facility] us Kush Perez MD IMG OB US PROCEDURES Estefany l Result * US Transvaginal (12/31/2020 12:13 AM CDT) Anatomical Region Laterality Modality Pelvis N/A Ultrasound 12/31/2020 12:2 6 AM CDT Narrative 12/31/2020 12:51 AM CDT EXAM DESCRIPTION: ?? US TRANSVAGINAL Pelvic ultrasound REASON FOR STUDY: ?? rule out ectopic, vaginal bleeding, 8w0d by LMP, rule out ectopic, vaginal bleeding, 8w0d by LMP vaginal bleeding ow back pain tonight Beta-hCG: Unknown TECHNIQUE: ?? Transabdominal and transvaginal images acquired of the pelvis. COMPARISON: ??None FINDINGS: Clinical gestational age: ?? 7 weeks 6 days Clinical estimated Due Date: ??08/12/2021 Intrauterine gestational sac: ?? Present Yolk sac: ?? Present Subchorionic bleed: ??No Placenta: ?? Not identified Mean sac diameter: ?cm Thor-rump length: ?? 0.22 cm heart rate: ?? 95 bpm Gestational age by this ultrasound: ?? 5 weeks 5 days ANGIE by this ultrasound: ?? 08/27/2021 Uterus: The uterus is anteverted, measuring 8.2 x 4.2 x 7.1 cm. Right Ovary/Adnexa: The right ovary measures ??4.2 x 2.2 x 2.7 cm. ??There is documentation of color Doppler flow in the right ovary. The right ovary appears unremarkable. ??No adnexal mass. Left Ovary/Adnexa: The left ovary measures ??3.0 x 2.0 x 1.9 cm. ??There is documentation of color Doppler flow in the left ovary. ??The left ovary appears unremarkable. ??No adnexal mass. Free Fluid: ??None. Other Findings: ??None. The left ovary measures 3.0 x 2.0 x 1.9 cm. ??Normal IMPRESSION: ?? Single live intrauterine gestation. ?? heart rate 95 beats per minute. ?? THIS IS AN ELECTRONICALLY VERIFIED FINAL REPORT 12/31/2020 12:51 AM - Electronically signed by Joey Amaya M.D. RW: ROSALINDA D: ??12/31/2020 12:28 AM T: ??12/31/2020 12:51 AM Report ID: [id number] Reading Location: ??[id number] Procedure Note Joey Amaya MD - 12/31/2020 EXAM DESCRIPTION: US TRANSVAGINAL Pelvic ultrasound REASON FOR STUDY: rule out ectopic, vaginal bleeding, 8w0d by LMP, ruleout ectopic, vaginal bleeding, 8w0d by LMP vaginal bleeding ow back paintonight Beta-hCG: Unknown TECHNIQUE: Transabdominal and transvaginal images acquired of thepelvis. COMPARISON: None FINDINGS: Clinical gestational age: 7 weeks 6 days Clinical estimated Due Date: 08/12/2021 Intrauterine gestational sac: Present Yolk sac: Present Subchorionic bleed: No Placenta: Not identified Mean sac diameter: cm Thor-rump length: 0.22 cm heart rate: 95 bpm Gestational age by this ultrasound: 5 weeks 5 days ANGIE by this ultrasound: 08/27/2021 Uterus: The uterus is anteverted, measuring 8.2 x 4.2 x 7.1 cm. Right Ovary/Adnexa: The right ovary measures 4.2 x 2.2 x 2.7 cm. Thereis documentation of color Doppler flow in the right ovary. The right ovary appears unremarkable. No adnexal mass. Left Ovary/Adnexa: The left ovary measures 3.0 x 2.0 x 1.9 cm. There is documentation of color Doppler flow in the left ovary. The left ovaryappears unremarkable. No adnexal mass. Free Fluid: None. Other Findings: None. The left ovary measures 3.0 x 2.0 x 1.9 cm. Normal IMPRESSION: Single live intrauterine gestation. heart rate 95beats per minute. THIS IS AN ELECTRONICALLY VERIFIED FINAL REPORT 12/31/2020 12:51 AM - Electronically signed by Joey Amaya M.D. RW: ROSALINDA Report ID: [id number] Reading Location: [place] [address] us Kush Perez MD IMG US PROCEDURES Final R esult * N. gonorrhoeae/C. trachomatis Amplification Endocervical (12/30/2020 10:45 PM CDT) Pathologist [facility] C. trachomatis Not Detected Not Detected ALBERTO DELUCA Comment:Testing performed by : [address] [address] N. gonorrhoeae Not Detected Not Detected ALBERTO DELUCA Comment: Interpretive Data Testing performed by the [facility]. This assay detects Chlamydia trachomatis and Neisseria gonorrhoeae by nucleic acid amplification testing (NAAT). This test is approved by the [place] Food and Drug Administration and the performance characteristics have been verified by the laboratory. The performance characteristics of this test have not been evaluated in individuals less than 14 years of age. Current Interpretive Data was last revised on 2019. Testing performed by: [address] [address] Endocervical (None) 12/31/19 10:45 PM CDT 12/30/2020 10:51 PM CDT Kush ePrez MD LAB MICROBIOLOGY - GENERA L ORDERABLES Final Result ALBERTO DELUCA [address] [facility] Department [place] [address] * Vaginitis panel Vaginal (12/30/2020 10:45 PM CDT) [facility] Tammy DNA probe Not Detected Not Detected ALBERTO DELUCA Comment:Testing performed by : [address] [address] Gardnerella DNA probe Not Detected Not Detected ALBERTO DELUCA Comment:Testing performed by : [address] [address] Trichomonas DNA probe Not Detected Not Detected ALBERTO DELUCA Comment: Interpretive Data Testing performed by [facility] via Affirm VPIII Microbial Identification Test, [...] last revised on 2020. Testing performed by: [address] [address] Vaginal 12/30/2020 10:4 5 PM CDT 12/30/2020 10:51 PM CDT Kush Perez MD LAB MICROBIOLOGY - GENERA L ORDERABLES Final Result [facility] Department [place] [address] * (ABNORMAL) POCT hCG, urine (12/30/2020 10:11 PM CDT) Pathologist [facility] HCG, ur, POC Positive Lot Number [id number] QC Backgroud Clear Acceptable QC Control Line Acceptable Urine 12/30/2020 10:1 1 PM CDT Kush Perez MD POINT OF CARE TEST ORDERA BLES Final Result * eGFR (12/30/2020 10:09 PM CDT) Pathologist [facility] eGFR 137 mL/min/1.7 3 m2 ALBERTO DELUCA Comment: Interpretive Data Reference [...] was last reviewed 2020 Testing performed by: [address] [address] Blood 12/30/2020 10:0 9 PM CDT 12/30/2020 10:18 PM CDT us Kush Perez MD LAB BLOOD ORDERABLES Estefany lindsey Result [facility] [address] [facility] Department [place] [address] * Differential, auto (12/30/2020 10:09 PM CDT) Neutrophil abs 5.2 1.7 - 6.5 K/cumm ALBERTO Comment:Testing performed by : [address] [address] Imm gran abs 0.0 0.0 - 0.1 K/cumm ALBERTO Comment:Testing performed by : [address] [address] Lymphocyte abs 2.4 0.8 - 3.3 K/cumm ALBERTO Comment:Testing performed by : [address] [address] Monocyte abs 0.6 0.2 - 0.8 K/cumm [facility] Comment:Testing performed by : [address] [address] Eosinophil abs 0.1 0.0 - 0.5 K/cumm [facility] Comment:Testing performed by : [address] [address] Basophil abs 0.0 0.0 - 0.1 K/cumm [facility] Comment:Testing performed by : [address] [address] Neutrophil pct 61.6 % [facility] Comment: Interpretive Data Percent cell count reference ranges are not reported, since discordance with absolute values may lead to misinterpretation of CBC data. Current Interpretive Data was last revised on 2017. Testing performed by: [address] [address] Imm gran pct 0.4 % [facility] Comment: Interpretive Data Percent cell count reference ranges are not reported, since discordance with absolute values may lead to misinterpretation of CBC data. Current Interpretive Data was last revised on 2017. Testing performed by: [address] [address] Lymphocyte pct 28.2 % [facility] Comment: Interpretive Data Percent cell count reference ranges are not reported, since discordance with absolute values may lead to misinterpretation of CBC data. Current Interpretive Data was last revised on 2017. Testing performed by: [address] [address] Monocyte pct 7.6 % [facility] Comment: Interpretive Data Percent cell count reference ranges are not reported, since discordance with absolute values may lead to misinterpretation of CBC data. Current Interpretive Data was last revised on 2017. Testing performed by: [address] [address] Eosinophil pct 1.7 % [facility] Comment: Interpretive Data Percent cell count reference ranges are not reported, since discordance with absolute values may lead to misinterpretation of CBC data. Current Interpretive Data was last revised on 2017. Testing performed by: [address] [address] Basophil pct 0.5 % ALBERTO DELUCA Comment: Interpretive Data Percent cell count reference ranges are not reported, since discordance with absolute values may lead to misinterpretation of CBC data. Current Interpretive Data was last revised on 2017. Testing performed by: [address] [address] Blood 12/30/2020 10:0 9 PM CDT 12/30/2020 10:18 PM CDT Kush Perez MD LAB BLOOD ORDERABLES Estefany l Result Performing Organization Address [facility]/ZIP Co de Phone Number [address] [place] [address] * ABO/Rh (12/30/2020 10:09 PM CDT) ABO/Rh A Positive ALBERTO Comment:Testing performed by : [facility], [address] [place] [address]., [address] Blood 12/30/2020 10:0 9 PM CDT 12/30/2020 10:18 PM CDT Kush Perez MD LAB BLOOD BANK TEST ORDER LUTHER Final Result Performing Organization Address [facility] de Phone Number [address] [address] * (ABNORMAL) hCG, blood, quantitative (12/30/2020 10:09 PM CDT) hCG, quant 1,257.0(H ) 0.0 - 5.0 IUnits/L ALBERTO DELUCA Comment: Ref Range High Interpretive Data Non- Female premenopausal: < or = 5.0 IUnits/L Men: < 5.0 IUnits/L Weeks of Gestation ? Reference Interval ?? 3 to 6 ? 5.8-31,795 IUnits/L ?? 7 to 10 ? 3,697-186,977 IUnits/L ??12 to 15 ?27,832- 70,791 IUnits/L ??16 to 18 ? 9,040- 58,179 IUnits/L Current Interpretive Data was last revised on 2017. Testing performed by: [address] [address] Blood 12/30/2020 10:0 9 PM CDT 12/30/2020 10:18 PM CDT us Kush Perez MD LAB BLOOD ORDERABLES Estefany lindsey Result [facility] [address] [facility] Department [place] [address] * (ABNORMAL) Comprehensive metabolic panel (12/30/2020 10:09 PM CDT) Sodium 140 135 - 145 mmol/L ALBERTO Comment:Testing performed by : [address] [address] Potassium, pl 3.2(L) 3.3 - 4.9 mmol/L ALBERTO Comment:Testing performed by : [address] [address] Chloride 103 97 - 110 mmol/L ALBERTO Comment:Testing performed by : [address] [address] CO2 25 22 - 32 mmol/L ALBERTO Comment:Testing performed by : [address] [address] Anion gap 12 2 - 15 mmol/L ALBERTO Comment:Testing performed by : [address] [address] BUN 7(L) 8 - 25 mg/dL ALBERTO Comment:Testing performed by : [address] [address] Creatinine 0.50(L) 0.60 - 1.10 mg/dL ALBERTO Comment:Testing performed by : [address] [address] Glucose 94 70 - 199 mg/dL ALBERTO Comment: Interpretive [...] was last revised 2017. Testing performed by: [address] [address] Calcium 9.0 8.5 - 10.3 mg/dL ALBERTO Comment:Testing performed by : [address] [address] Bilirubin, total 0.3 0.1 - 1.2 mg/dL ALBERTO Comment:Testing performed by : [address] [address] Protein, pl 7.0 6.5 - 8.5 g/dL ALBERTO Comment:Testing performed by : [address] [address] Albumin 4.6 3.5 - 5.0 g/dL ALBERTO Comment:Testing performed by : [address] [address] Alk phos 52 40 - 130 Units/L ALBERTO Comment:Testing performed by : [address] [address] ALT 19 7 - 45 Units/L ALBERTO Comment:Testing performed by : [address] [address] AST 18 10 - 45 Units/L ALBERTO Comment:Testing performed by : [address] [address] Blood 12/30/2020 10:0 9 PM CDT 12/30/2020 10:18 PM CDT us Kush Perez MD LAB BLOOD ORDERABLES Estefany lindsey Result ALBERTO [address] [facility] Department [place] [address] * CBC with auto differential (12/30/2020 10:09 PM CDT) WBC 8.4 3.8 - 9.9 K/cumm ALBERTO Comment:Testing performed by : [address] [address] Hgb 12.4 11.9 - 15.5 g/dL ALBERTO Comment:Testing performed by : [address] [address] Hct 37.7 35.6 - 45.5 % ALBERTO Comment:Testing performed by : [address] [address] Plt 228 150 - 400 K/cumm ALBERTO Comment:Testing performed by : [address] [address] MPV 10.8 9.1 - 12.3 fL ALBERTO Comment:Testing performed by : [address] [address] RBC 4.22 3.90 - 5.20 M/cumm ALBERTO Comment:Testing performed by : [address] [address] MCV 89.3 81.3 - 96.4 fL ALBERTO Comment:Testing performed by : [address] [address] MCH 29.4 27.1 - 33.3 pg ALBERTO Comment:Testing performed by : [address] [address] MCHC 32.9 32.3 - 35.7 g/dL ALBERTO Comment:Testing performed by : [address] [address] RDW CV 12.3 11.1 - 14.9 % ALBERTO Comment:Testing performed by : [address] [address] RDW SD 39.8 35.7 - 48.1 fL ALBERTO Comment:Testing performed by : [address] [address] NRBC abs 0.00 0.00 - 0.01 K/cumm ALBERTO DELUCA Comment:Testing performed by : [address] [address] Blood 12/30/2020 10:0 9 PM CDT 12/30/2020 10:18 PM CDT us Kush Perez MD LAB BLOOD ORDERABLES Estefany lindsey Result ALBERTO [address] [facility] Department [place] [address] * (ABNORMAL) Urinalysis, microscopic only (12/30/2020 10:06 PM CDT) WBC, ur 0-5 0 - 5 /HPF ALBERTO Comment:Testing performed by : [address] [address] RBC, ur 11-20(A) 0 - 2 /HPF ALBERTO Comment:Testing performed by : [address] [address] Epithelial cells, squamous, ur 1-5 0 - 5 /HPF ALBERTO Comment:Testing performed by : [address] [address] Bacteria, ur 2+(A) ALBERTO Comment:Testing performed by : [address] [address] Mucous, ur Present(A) ALBERTO Comment:Testing performed by : [address] [address] Culture Reflex Comment Reflex conditions for urine culture (WBC >10) not met. ALBERTO Comment:Testing performed by : [address] [address] Urine, clean voided 12/30/2020 10:06 PM CDT 12/30/2020 10:18 PM CDT us Kush Perez MD LAB URINE ORDERABLES Estefany césar Result ALBERTO [address] [facility] Department [place] [address] * (ABNORMAL) Urinalysis reflex to microscopic and culture Urine, clean voided (12/30/2020 10:06 PM CDT) Color, ur Straw Yellow ALBERTO Comment:Testing performed by : [address] [address] Clarity, ur Clear Clear ALBERTO Comment:Testing performed by : [address] [address] Specific gravity, ur 1.002(L) 1.003 - 1.030 ALBERTO Comment:Testing performed by : [address] [address] pH, urine 6.0 ALBERTO Comment:Testing performed by : [address] [address] Protein, ur ql Negative Negative ALBERTO Comment:Testing performed by : [address] [address] Glucose, ur ql Negative Negative ALBERTO Comment:Testing performed by : [address] [address] Ketones, ur Negative Negative ALBERTO Comment:Testing performed by : [address] [address] Bilirubin, ur Negative Negative ALEBRTO Comment:Testing performed by : [address] [address] Blood, ur 3+(A) Negative ALBERTO Comment:Testing performed by : [address] [address] Urobilinogen, ur <2.0 <2.0 mg/dL ALBERTO Comment:Testing performed by : [address] [address] Nitrite, ur Negative Negative ALBERTO Comment:Testing performed by : [facility], [address] [place] [address]., [address] Leukocyte esterase, ur Negative Negative [facility] Comment:Testing performed by : [address] [address] UA reflex comment Reflex to microscopic UA will be performed. ALBERTO Comment:Testing performed by : [facility], [address] [place] [address]., [address] Urine, clean voided 12/30/2020 10:06 PM CDT 12/30/2020 10:18 PM CDT Narrative ALBERTO - 12/30/2020 10:23 PM CDT ?? Urine pH is affected by diet, medications, systemic acid-base disturbances, and renal tubular function. ??pH may affect urinary stone formation. ??For example, urine pH below 6.0 may help reduce the tendency for calcium phosphate stones and pH greater than 6.0 may reduce the tendency for uric acid stone formation. Source: [employer]. Last revised 04-04-2017 us Kush Perez MD LAB MICROBIOLOGY - GENERA L ORDERABLES Final Result ALBERTO [address] [facility] Department [place] [address] documented in this encounter Visit Diagnoses Diagnosis Threatened - Primary Less than 8 weeks gestation of Threatened documented in this encounter Care Teams Costume Shop Coordinator Relationship Specialty Start Date End Date Shana Eastno MD [address] [place] [place] [address] PCP - General 05/05/18 12/30/20 No, Physician PCP - General 12/31/20 05/21/22 documented as of this encounter
--- OUTSIDE RECORDS SUMMARY | 2024-03-15 14:56 | XMS_ITS | Encounter Summary ---
Author Organization [facility] Address [address] [place] [address] Care Team Providers Care Apprentice Name Role Phone No, Physician Primary Care Provider [phone] Encounter Details Date Type Department Care Team (Late st Contact Info) Description 08/23/2022 E-Visit [facility] Virtual Care [address] [place] [address] Reyna Alex MD [address] [place] [id number] Your Medications Social History Tobacco Use [...] mouth 2 (two) times a day for 10 days 20 tablet 08/23/2022 09/02/2022 documented in this encounter Miscellaneous Notes * E-Visit Note - Reyna Alex MD - 08/23/2022 9:12 AM CDT Mariam Lea 08/23/2022 E-Visit Submission Subjective/Objective: Mariam Lea contacted the office today via e-visit for Headache. C/o headache that is a pain behind her eyes that started today and been occurring approx 1-3 hours.Also c/o fever and weakness. States she gets dizzy when she stands up. Also notes some congestion. Her child was recently diagnosed with strep. Pt notes she's . The patient-submitted questionnaire was assessed for pertinent information and the patient's problem list, medication list, and allergies were reviewed as part of the e-visit. The chart was updated to identify any changes in these areas. Assessment: Diagnosis Plan 1. Acute nonintractable headache, unspecified headache type Plan: Difficult to tell source of this headache as this is an evisit. Pt is so unable to use meds for migraine. Pt has exposure to strep so will treat for presumed strep. Amoxil erx'ed to pharmacy. If any problems or questions or no improvement of symptoms in the next few days, please f/u w/ PCP. If symptoms worsen, go to the ED. The patient was given information regarding any new medication(s) prescribed, if applicable, as well as any [id number] remedies. She was given instructions regarding follow up and timeframe if symptoms worsen or don???t improve. These instructions were included in the [employer] message reply tothe patient. Patient Instructions were included in the message reply to patient. My total encounter time on 08/23/2022 was 5 minutes which was spent in the activities documented inthe note. New Medications Ordered This Visit amoxicillin (AMOXIL) 875 mg tablet Sig: Take 1 tablet (875 mg total) by mouth 2 (two) times a day for 10 days Dispense: 20 tablet Refill: 0 Reyna Alex MD documented in this encounter Plan of Treatment Not on file documented as of this encounter Visit Diagnoses Diagnosis Acute nonintractable headache, unspecified headache type- Primary documented in this encounter Care Teams Apprentice Relationship Specialty Start Date End Date No, Physician PCP - General 08/06/22 documented as of this encounter
--- OUTSIDE RECORDS SUMMARY | 2024-03-15 14:56 | XMS_ITS | Encounter Summary ---
Author Organization [facility] Address [address] [place] [address] Care Team Providers Care Mailer Name Role Phone No, Physician Primary Care Provider [phone] Reason for Visit * Reason Comments Vaginal Bleeding - Encounter Details Date Type Department Care Team (Late st Contact Info) Description 08/12/2022 5:55 PM CDT - 08/12/2022 7:59 PM CDT Emergency [facility] [address] [place], [place] [address] Kush Perez MD [address] [place] [address] [place] [address] Acute right-sided low back pain without sciatica (Primary Dx); Spotting in Discharge Disposition: Discharge to home or self [...] Sign Reading Time Taken Comments Blood Pressure 111/76 08/12/2022 6:54 PM CDT Pulse 78 08/12/2022 6:54 PM CDT Temperature 36.9 ??C (98.4 ??F) 08/12/2022 4:37 PM CD T Respiratory Rate 18 08/12/2022 6:54 PM CDT Oxygen Saturation 98% 08/12/2022 6:54 PM CDT Inhaled Oxygen Concentration - - Weight 49.5 kg (109 lb 2 oz) 08/12/2022 4:37 PM CDT Height 160 cm (5' 3 ) 08/12/2022 4:37 PM CDT Body Mass Index 19.33 08/12/2022 4:37 PM CDT documented in this encounter Discharge Instructions * Discharge Instructions* Sharda Aguilar NP - 08/12/2022 7:52 PM CDT That is a possibility that he might have a kidney stone, call your OBGYN, Dr. Noble office tomorrow morning to make an appointment to be seen, meantime take this medicine as needed for nausea, take [id number] Tylenol as needed for pain, stay well hydrated, return to ED immediately if he develops fever, chill or for any worsening symptoms. documented in this encounter Medications at Time of Discharge metoclopramide (REGLAN) 10 mg tablet Take 1 tablet (10 mg total) by mouth every 6 (six) hours 30 tablet 08/12/2022 02/21/2023 documented as of this encounter Ordered Prescriptions Prescription Sig Dispense Quantity Refills Last Filled Start Date End Date metoclopramide (REGLAN) 10 mg tablet Take 1 tablet (10 mg total) by mouth every 6 (six) hours 30 tablet 08/12/2022 02/21/2023 documented in this encounter Discharge Disposition Disposition Code Departure Means Destination Comment s Discharge to home or self care documented in this encounter ED Notes * Sharda Aguilar NP - 08/12/2022 7:16 PM CDT Images from the original note were not included. CHIEF COMPLAINT: Chief Complaint Patient presents with Vaginal Bleeding - HPI 7:53 PM Mariam Lea is a 21 y.o. female presenting to the ED c/o right lower back pain. She states that since yesterday she is having right lower back pain that radiates to her right groin area along with vaginal bleeding and spotting as well as nausea and vomiting. She states that she was havingbleeding yesterday however today it spotting. She fell a week ago on her stomach, she was here and had a ultrasound done of her abdomen, she was doing well until yesterday, she states that she has not been engage in any sexual intercourse in last 10 days. Denies any fever or chill. Denies any urinary urgency, frequency or dysuria. Denies any chest pain or shortness of breath. Denies any other complaint. History provided by patient. PCP: No, Physician PAST MEDICAL HISTORY Past Medical History: Diagnosis Date Asthma PAST SURGICAL HISTORY Past Surgical History: Procedure Laterality Date TONSILECTOMY, ADENOIDECTOMY, BILATERAL MYRINGOTOMY AND TUBES FAMILY HISTORY No family history on file. MEDICATIONS GIVEN IN THE ED Medications sodium chloride 0.9% bolus 1,000 mL (1,000 mL intravenous New Bag 08/12/221916) metoclopramide (REGLAN) 5 mg/mL injection 10 mg (10 mg intravenous Given 08/12/221916) CURRENT HOME MEDICATIONS Current Facility-Administered Medications: sodium chloride 0.9% bolus 1,000 mL, 1,000 mL, intravenous, Once, Sharda Aguilar NP, Last Rate: 1,000 mL/hr at 08/12/221916, 1,000 mL at 08/12/221916 Current Outpatient Medications: metoclopramide (REGLAN) 10 mg tablet, Take 1 tablet (10 mg total) by mouth every 6 (six) hours, Disp: 30 tablet, Rfl: 0 ALLERGIES Allergies Allergen Reactions Ciprofloxacin Other (See comments) and Anaphylaxis Rash Rash Pt states I can't breath Pt states I can't breath Levofloxacin Rash and Anaphylaxis Rash Rash SOCIAL HISTORY Social History Tobacco Use Smoking status: Never Smokeless tobacco: Not on file Substance and Sexual Activity Drug use: Never Sexual activity: Not on file Alcohol Use: Not on file PHYSICAL EXAM TRIAGE VITAL SIGNS: ED Triage Vitals Temp Pulse Resp BP SpO2 08/12/22 1637 08/12/22 1637 08/12/22 1637 08/12/22 1637 08/12/22 1637 36.9 ??C (98.4 ??F) 112 18 117/79 99 % Temp src Heart Rate Source Patient Position BP Location FiO2 (%) 08/12/22 1637 -- 08/12/22 1854 08/12/22 1854 -- Oral Lying Left arm Height Height Method Weight Weight Method 08/12/22 1637 08/12/22 1637 08/12/22 1637 08/12/22 1637 1.6 m (5' 3 ) Stated 49.5 kg (109 lb 2 oz) Standing scale Physical Exam Vitals and nursing note reviewed. Constitutional: General: She is not in acute distress. Appearance: Normal appearance. She is well-developed. She is not ill-appearing, toxic-appearing or diaphoretic. HENT: Head: Normocephalic and atraumatic. Jaw: There is normal jaw occlusion. Right Ear: Hearing and external ear normal. Left Ear: Hearing and external ear normal. Nose: Nose normal. Mouth/Throat: Mouth: Mucous membranes are dry. Eyes: General: Lids are normal. Vision grossly intact. Extraocular Movements: Extraocular movements intact. Conjunctiva/sclera: Conjunctivae normal. Neck: Trachea: Trachea and phonation normal. Cardiovascular: Rate and Rhythm: Normal rate and regular rhythm. Pulses: Normal pulses. Radial pulses are 2+ on the right side and 2+ on the left side. Heart sounds: Normal heart sounds. No murmur heard. Pulmonary: Effort: Pulmonary effort is normal. No respiratory distress. Breath sounds: Normal breath sounds and air entry. Abdominal: General: Bowel sounds are normal. There is no distension. Palpations: Abdomen is soft. Tenderness: There is abdominal tenderness in the right lower quadrant. There is no guarding. Musculoskeletal: Cervical back: Full passive range of motion without pain, normal range of motion and neck supple. Lumbar back: Tenderness present. Back: Right lower leg: No edema. Left lower leg: No edema. Skin: General: Skin is warm and dry. Capillary Refill: Capillary refill takes less than 2 seconds. Neurological: General: No focal deficit present. Mental Status: She is alert and oriented to person, place, and time. GCS: GCS eye subscore is 4. GCS verbal subscore is 5. GCS motor subscore is 6. Sensory: Sensation is intact. Motor: Motor function is intact. Coordination: Coordination is intact. Gait: Gait is intact. Psychiatric: Attention and Perception: Attention normal. Mood and Affect: Mood normal. Speech: Speech normal. Behavior: Behavior normal. Behavior is cooperative. Thought Content: Thought content normal. LABS Labs Reviewed URINALYSIS AND REFLEX TO MICROSCOPIC AND CULTURE - Abnormal Result Value Color, ur Tonya Clarity, ur Cloudy (*) Specific gravity, ur 1.029 pH, urine 6.0 Protein, ur ql 1+ (*) Glucose, ur ql Negative Ketones, ur Negative [...] tendency for uric acid stone formation. Source: [facility].Last revised 04-04-2017 HCG, BLOOD, QUANTITATIVE - Abnormal hCG, quant 169,199.0 (*) COMPREHENSIVE METABOLIC PANEL - Abnormal Sodium 138 Potassium, pl 3.8 Chloride 102 CO2 24 Anion gap 12 BUN 5 (*) Creatinine 0.40 (*) Glucose 115 Calcium 9.3 Bilirubin, total 0.3 Protein, pl 7.4 Albumin 4.3 Alk phos 54 ALT 30 AST 18 DIFFERENTIAL AUTO - Abnormal Neutrophil abs 7.4 (*) Imm gran abs 0.1 Lymphocyte abs 1.4 Monocyte abs 0.4 Eosinophil abs 0.1 Basophil abs 0.0 Neutrophil pct 78.7 Imm gran pct 0.5 Lymphocyte pct 15.2 Monocyte pct 4.6 Eosinophil pct 0.6 Basophil pct 0.4 URINALYSIS, MICROSCOPIC ONLY - Abnormal WBC, ur 0-5 RBC, ur 6-10 (*) Epithelial cells, squamous, ur >50 (*) Bacteria, ur 2+ (*) Mucous, ur Present (*) Culture Reflex Comment Value: Reflex conditions for urine culture (WBC >10) not met. CBC WITH AUTO DIFFERENTIAL WBC 9.4 Hgb 12.5 Hct 37.4 Plt 216 MPV 10.9 RBC 4.29 MCV 87.2 MCH 29.1 MCHC 33.4 RDW CV 13.1 RDW SD 41.0 NRBC abs 0.00 ABO/RH ABO/Rh A Positive EGFR eGFR 143 RADIOLOGY US Ob Under 14 Weeks Result Date: [...] Not identified Mean sacdiameter: None applicable cm [place]-rump length: 4.62 cm heart rate: 168 bpm [...] Ellis Sherman M.D. JA: LANI Report ID: [id number] Reading Location: [id number] ED COURSE/MEDICAL DECISION MAKING ED Course as of 08/12/221952 Time: 08/12 1948 Comment: She does have a history of kidney stone, she came in for lower back pain that radiates to her right groin area along with vaginal bleeding, spotting, nausea and vomiting since yesterday. On exam she does have a dry mucous membrane, she was slightly tachycardic when she came in, does have a tenderness on palpitation on her right lower back and right groin region. By: Sharda Aguilar NP Time: 08/12 1949 Comment: UA does have some hematuria, she is ABO positive she will not need RhoGAM. CBC and CMP is unremarkable. By: Sharda Aguilar NP Time: 08/12 1949 Comment: I did bedside ultrasound, moving well, heart tone was around 140. By: Sharda Aguilar NP Time: 08/12 1949 Comment: I discussed this case with on-call OBGYN, Dr. Noble who advised me that there is always a concern for kidney stone since we do not have ultrasound she can follow-up with Dr. Noble on outpatient basis, meantime she advised me to have patient take [id number] Tylenol with occasional Motrin as needed for pain. Her pain is well tolerated with Tylenol, did give her some Reglan that started her nausea, sending her home on Reglan, advised return to ED immediately for any worsening symptoms. She agrees with this plan. By: Sharda Aguilar NP Procedures FINAL IMPRESSION Acute right-sided low back pain without sciatica Spotting in DISPOSITION: Home All findings were discussed with patient. Pt agreeable with plan. Non toxic appearing, vitals stable. Patient stable for discharge home. Given return to ER precautions Close outpatient follow-up with a low threshold to return has been mandated , concerning symptoms have been emphasized in detail, and this patient expresses understanding PATIENT INSTRUCTED TO FOLLOW UP Leyla Noble MD [address] [facility] [address] DISCHARGE MEDICATIONS Your medication list START taking these medications Instructions Last Dose Given Next Dose Due metoclopramide 10 mg tablet Commonly known as: REGLAN Take 1 tablet (10 mg total) by mouth every 6 (six) hours Where to Get Your Medications You can get these medications from any pharmacy Bring a paper prescription for each of these medications metoclopramide 10 mg tablet This examination was transcribed using the soup.me voice recognition system without human police district switchboard operator. In an effort to expedite patient care, this report has not been adjusted for typographical, grammatical, and syntax by a trained medical planner. Sharda Aguilar NP 08/12/221952 Cosigned by Kush Perez MD at 08/13/2022 4:06 AM CDT Associated attestation - Kush Perez MD - 08/13/2022 4:06 AM CDT ED Attestation I did not see this patient. However, I was personally available for consultation in the ED for thispatient if the Advanced Practice Provider (AXEL) needed any assistance. The AXEL evaluated the patient independently and completed their own examination, documentation, and disposition. 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 C/o rt lower back pain and abd cramping. States she had a fall 1 week ago and landed on her abdomen. Seen in ED for same documented in this encounter Plan of Treatment Not on file documented as of this encounter Procedures Procedure Name Priority Date/Time Associated Diagnosis Comments EGFR STAT 08/12/2022 5:20 PM CDT DIFFERENTIAL AUTO STAT 08/12/2022 5:2 0 PM CDT URINALYSIS AND REFLEX TO MICROSCOPIC AND CULTURE STAT 08/12/2022 5:20 PM CDT CBC WITH AUTO DIFFERENTIAL STAT 08/12/2022 5:20 PM CDT HC BLD TYPING ABO STAT 08/12/2022 5:2 0 PM CDT URINALYSIS, MICROSCOPIC ONLY STAT 08/12/2022 5:20 PM CDT HCG, BLOOD, QUANTITATIVE STAT 08/12/2022 5:20 PM CDT COMPREHENSIVE METABOLIC PANEL STAT 08/12/2022 5:20 PM CDT documented in this encounter Results * eGFR (08/12/2022 5:20 PM CDT) eGFR 143 mL/min/1. 73 m2 [...] was last reviewed 2021. Testing performed by: [address] [address] Blood 08/12/2022 5:20 PM CDT 08/12/2022 5:25 PM CDT us Sharda Aguilar NP LAB BLOOD ORDERABLES Final Resul t [facility] [address] [facility] Department [place] [address] * (ABNORMAL) Urinalysis, microscopic only (08/12/2022 5:20 PM CDT) WBC, ur 0-5 0 - 5 /HPF [facility] Comment:Testing performed by : [address] [address] RBC, ur 6-10(A) 0 - 2 /HPF [facility] Comment:Testing performed by : [address] [address] Epithelial cells, squamous, ur >50(A) 0 - 5 /HPF [facility] Comment:Testing performed by : [address] [address] Bacteria, ur 2+(A) [facility] Comment:Testing performed by : [address] [address] Mucous, ur Present(A) [facility] Comment:Testing performed by : [address] [address] Culture Reflex Comment Reflex conditions for urine culture (WBC >10) not met. [facility]O Comment:Testing performed by : [address] [address] Urine 08/12/2022 5:20 PM CDT 08/12/2022 5:25 PM CDT us Sharda Aguilar NP LAB URINE ORDERABLES Final Resul t [facility] [address] [facility] Department of Laboratories [place], [place] [id number] * (ABNORMAL) Differential, auto (08/12/2022 5:20 PM CDT) Neutrophil abs 7.4(H) 1.7 - 6.5 K/cumm [facility] Comment:Testing performed by : [address] [address] Imm gran abs 0.1 0.0 - 0.1 K/cumm [facility] Comment:Testing performed by : [address] [address] Lymphocyte abs 1.4 0.8 - 3.3 K/cumm [facility] Comment:Testing performed by : [address] [address] Monocyte abs 0.4 0.2 - 0.8 K/cumm [facility] Comment:Testing performed by : [address] [address] Eosinophil abs 0.1 0.0 - 0.5 K/cumm [facility] Comment:Testing performed by : [address] [address] Basophil abs 0.0 0.0 - 0.1 K/cumm [facility] Comment:Testing performed by : [address] [address] Neutrophil pct 78.7 % [facility] Comment: Interpretive Data Percent cell count reference ranges are not reported, since discordance with absolute values may lead to misinterpretation of CBC data. Current Interpretive Data was last revised on 2017. Testing performed by: [address] [address] Imm gran pct 0.5 % [facility] Comment: Interpretive Data Percent cell count reference ranges are not reported, since discordance with absolute values may lead to misinterpretation of CBC data. Current Interpretive Data was last revised on 2017. Testing performed by: [address] [address] Lymphocyte pct 15.2 % [facility] Comment: Interpretive Data Percent cell count reference ranges are not reported, since discordance with absolute values may lead to misinterpretation of CBC data. Current Interpretive Data was last revised on 2017. Testing performed by: [address] [address] Monocyte pct 4.6 % [facility] Comment: Interpretive Data Percent cell count reference ranges are not reported, since discordance with absolute values may lead to misinterpretation of CBC data. Current Interpretive Data was last revised on 2017. Testing performed by: [address] [address] Eosinophil pct 0.6 % [facility] Comment: Interpretive Data Percent cell count reference ranges are not reported, since discordance with absolute values may lead to misinterpretation of CBC data. Current Interpretive Data was last revised on 2017. Testing performed by: [address] [address] Basophil pct 0.4 % [facility] Comment: Interpretive Data Percent cell count reference ranges are not reported, since discordance with absolute values may lead to misinterpretation of CBC data. Current Interpretive Data was last revised on 2017. Testing performed by: [address] [address] Blood 08/12/2022 5:20 PM CDT 08/12/2022 5:25 PM CDT Sharda Aguilar NP LAB BLOOD ORDERABLES Final Resul t [facility] [address] [facility] Department of Laboratories [place], [place] [id number] * (ABNORMAL) Urinalysis reflex to microscopic and culture Urine (08/12/2022 5:20 PM CDT) Color, ur Tonya Yellow [facility] Comment:Testing performed by : [facility] [address] [place] [address]., [address] Clarity, ur Cloudy(A) Clear [facility] Comment:Testing performed by : [address], [place]., [address] Specific gravity, ur 1.029 1.003 - 1.030 [facility] Comment:Testing performed by : [address] [address] pH, urine 6.0 [facility] Comment:Testing performed by : [address] [address] Protein, ur ql 1+(A) Negative [facility] Comment:Testing performed by : [address] [address] Glucose, ur ql Negative Negative [facility] Comment:Testing performed by : [address] [address] Ketones, ur Negative Negative [facility] Comment:Testing performed by : [address] [address] Bilirubin, ur Negative Negative [facility] Comment:Testing performed by : [address] [address] Blood, ur Negative Negative [facility] Comment:Testing performed by : [address] [address] Urobilinogen, ur <2.0 <2.0 mg/dL [facility] Comment:Testing performed by : [address] [address] Nitrite, ur Negative Negative [facility] Comment:Testing performed by : [address] [address] Leukocyte esterase, ur 1+(A) Negative [facility] Comment:Testing performed by : [address] [address] UA reflex comment Reflex to microscopic UA will be performed. [facility] Comment:Testing performed by : [address] [address] Urine 08/12/2022 5:20 PM CDT 08/12/2022 5:25 PM CDT Narrative [facility] DELUCA - 08/12/2022 5:29 PM CDT ?? Urine pH is affected by diet, medications, systemic acid-base disturbances, and renal tubular function. ??pH may affect urinary stone formation. ??For example, urine pH below 6.0 may help reduce the tendency for calcium phosphate stones and pH greater than 6.0 may reduce the tendency for uric acid stone formation. Source: [facility] [place]. Last revised 04-04-2017 us Sharda Aguilar NP LAB MICROBIOLOGY - GENERAL ORDER LUTHER Final Result [facility] [address] [facility] Department [place] [address] * (ABNORMAL) Comprehensive metabolic panel (08/12/2022 5:20 PM CDT) Sodium 138 135 - 145 mmol/L [facility] Comment:Testing performed by : [address] [address] Potassium, pl 3.8 3.3 - 4.9 mmol/L [facility] DELUCA Comment:Testing performed by : [address] [address] Chloride 102 97 - 110 mmol/L [facility] Comment:Testing performed by : [address] [address] CO2 24 22 - 32 mmol/L [facility] Comment:Testing performed by : [address] [address] Anion gap 12 2 - 15 mmol/L [facility] Comment:Testing performed by : [address] [address] BUN 5(L) 8 - 25 mg/dL [facility] DELUCA Comment:Testing performed by : [address] [address] Creatinine 0.40(L) 0.60 - 1.10 mg/dL [facility] Comment:Testing performed by : [address] [address] Glucose 115 70 - 199 mg/dL [facility] Comment: Interpretive [...] was last revised 2022. Testing performed by: [address] [address] Calcium 9.3 8.5 - 10.3 mg/dL [facility] Comment:Testing performed by : [address] [address] Bilirubin, total 0.3 0.1 - 1.2 mg/dL [facility] Comment:Testing performed by : [address] [address] Protein, pl 7.4 6.5 - 8.5 g/dL [facility] Comment:Testing performed by : [address] [address] Albumin 4.3 3.5 - 5.0 g/dL [facility] Comment:Testing performed by : [address] [address] Alk phos 54 40 - 130 Units/L [facility] Comment:Testing performed by : [address] [address] ALT 30 7 - 45 Units/L [facility] Comment:Testing performed by : [address] [address] AST 18 10 - 45 Units/L [facility] Comment:Testing performed by : [address] [address] Blood 08/12/2022 5:20 PM CDT 08/12/2022 5:25 PM CDT Sharda Aguilar NP LAB BLOOD ORDERABLES Final Resul t Performing Organization Address [facility] de Phone Number [address] [address] * ABO/Rh (08/12/2022 5:20 PM CDT) Pathologist [facility] ABO/Rh A Positive [facility]ERTO Comment:Testing performed by : [facility], [address] [place] [address]., [address] Blood 08/12/2022 5:20 PM CDT 08/12/2022 5:25 PM CDT Result [facility] Sharda Aguilar NP LAB BLOOD BANK TEST ORDERABLES F inal Result Performing Organization Address [facility] de Phone Number [place] [phone] [facility] [place] [address] * (ABNORMAL) hCG, blood, quantitative (08/12/2022 5:20 PM CDT) Pathologist [facility] hCG, quant 169,199.0 (H) 0.0 - 5.0 IUnits/L [facility] Comment: Interpretive [...] last revised on 2021. Testing performed by: [address] [address] Blood 08/12/2022 5:20 PM CDT 08/12/2022 5:25 PM CDT us Sharda Aguilar NP LAB BLOOD ORDERABLES Final Resul t [facility] [address] [facility] Department [place] [address] * CBC with auto differential (08/12/2022 5:20 PM CDT) WBC 9.4 3.8 - 9.9 K/cumm [facility] Comment:Testing performed by : [address] [address] Hgb 12.5 11.9 - 15.5 g/dL [facility] Comment:Testing performed by : [address] [address] Hct 37.4 35.6 - 45.5 % [facility] Comment:Testing performed by : [address] [address] Plt 216 150 - 400 K/cumm [facility] Comment:Testing performed by : [address] [address] MPV 10.9 9.1 - 12.3 fL [facility] Comment:Testing performed by : [address] [address] RBC 4.29 3.90 - 5.20 M/cumm [facility] Comment:Testing performed by : [address] [address] MCV 87.2 81.3 - 96.4 fL [facility] Comment:Testing performed by : [address] [address] MCH 29.1 27.1 - 33.3 pg [facility] Comment:Testing performed by : [address] [address] MCHC 33.4 32.3 - 35.7 g/dL [facility] DELUCA Comment:Testing performed by : [facility], [address] [place] [address]., [address] RDW CV 13.1 11.1 - 14.9 % [facility] DELUCA Comment:Testing performed by : [facility], [address] [place] [address]., [address] RDW SD 41.0 35.7 - 48.1 fL [facility] DELUCA Comment:Testing performed by : [facility], [address] [place] [address]., [address] NRBC abs 0.00 0.00 - 0.01 K/cumm [facility] DELUCA Comment:Testing performed by : [address] [address] Blood (Blood, Venous) 08/12/2022 5:20 PM CDT 08/12/2022 5:25 PM CDT Sharda Aguilar RODBUSTER LAB BLOOD ORDERABLES Final Resul t [facility] [address] [facility] [place] [address] documented in this encounter Visit Diagnoses Diagnosis Acute right-sided low back pain without sciatica- Primary Spotting in Spotting complicating , unspecified as to episode of care or not applicable documented in this encounter Administered Medications Inactive Administered Medications - up to 3 most recent administrations Medication Order MAR Action Action Date Dose Rate Site metoclopramide (REGLAN) 5 mg/mL injection 10 mg 10 mg (0.202 mg/kg), intravenous, Once, On 08/12/22 at 1851, For 1 dose Given 08/12/2022 7:17 PM CDT 10 mg sodium chloride 0.9% bolus 1,000 mL 1,000 mL (20.2 mL/kg), intravenous, at 1,000 mL/hr, Administer over 1 Hours, Once, On 08/12/22 at 1851, For 1 dose New Bag 08/12/2022 7:17 PM CDT 1,000 mL 1000 mL/hr documented in this encounter Active and Recently Administered Medications Times are shown in CDT. Scheduled Medication Order 08/10/2022 08/11/2022 08/12/2022 metoclopramide (REGLAN) 5 mg/mL injection 10 mg (COMPLETED) 10 mg (0.202 mg/kg), intravenous, Once, On 08/12/22 at 1851, For 1 dose 1916 (Given - Provid er: Venita Palumbo RN) sodium chloride 0.9% bolus 1,000 mL (COMPLETED) 1,000 mL (20.2 mL/kg), intravenous, at 1,000 mL/hr, Administer over 1 Hours, Once, On 08/12/22 at 1851, For 1 dose 1916 (New Bag - Prov ider: Venita Palumbo RN)1957 (Stopped - Provider: Ragini Broderick RN) documented in this encounter Care Teams Mailer Relationship Specialty Start Date End Date No, Physician PCP - General 08/06/22 documented as of this encounter
--- OUTSIDE RECORDS SUMMARY | 2024-03-15 14:56 | XMS_ITS | Encounter Summary ---
Author Organization [facility] Healthcare Address [address] [place] [address] Care Team Providers Care Pipeline Gang Supervisor Name Role Phone Shana Easton MD Primary Care Provider [phone] Encounter Details Date Type Department Care Team (Late st Contact Info) Description 03/14/2020 6:40 PM PRODUCTION LINE WORKER - 03/15/2020 1:52 AM PRODUCTION LINE WORKER Emergency [facility] Emergency Department [address] [place] [address] Unknown, Lucio Valerio MD [facility] [place] [address] Discharge Disposition: Discharge to home or self [...] Sign Reading Time Taken Comments Blood Pressure 105/63 03/14/2020 7:07 PM PRODUCTION LINE WORKER Pulse 68 03/14/2020 7:07 PM PRODUCTION LINE WORKER Temperature 36.7 ??C (98 ??F) 03/14/2020 7:07 PM PRODUCTION LINE WORKER Respiratory Rate - - Oxygen Saturation 99% 03/14/2020 7:07 PM PRODUCTION LINE WORKER Inhaled Oxygen Concentration - - Weight 45.3 kg (99 lb 13.9 oz) 03/14/2020 7:07 P M PRODUCTION LINE WORKER Height 160 cm (5' 3 ) 03/14/2020 7:07 PM PRODUCTION LINE WORKER Body Mass Index 17.69 03/14/2020 7:07 PM PRODUCTION LINE WORKER documented in this encounter Discharge Disposition Disposition Code Departure Means Destination Discharge to home or self care documented in this encounter Plan of Treatment Not on file documented as of this encounter Procedures Procedure Name Priority Date/Time Associated Diagnosis Comments SCAN - LABS 03/15/2020 12:00 AM PRODUCTION LINE WORKER URINALYSIS AND REFLEX TO MICROSCOPIC AND CULTURE Routine 03/14/2020 8:08 PM PRODUCTION LINE WORKER HEMOGRAM WITH MANUAL DIFFERENTIAL Routine 03/14/2020 7:34 PM PRODUCTION LINE WORKER COMPREHENSIVE METABOLIC PANEL Routine 03/14/2020 7:33 [address] ABDOMEN PELVIS W CONTRAST 03/14/2020 7:07 PM PRODUCTION LINE WORKER documented in this encounter Results * SCAN - LABS (03/15/2020 12:00 AM PRODUCTION LINE WORKER) Narrative 03/15/2020 12:00 AM PRODUCTION LINE WORKER Ordered by an unspecified provider. us Historical Provider MD Final Res ult * (ABNORMAL) Urinalysis reflex to microscopic and culture (03/14/2020 8:08 PM PRODUCTION LINE WORKER) Ur Collection Type CLEAN CATCH [facility] Ur Culture Indicated? C S NOT INDICATED [facility] Urine Color YELLOW YELLOW [facility] Urine Clarity CLEAR CLEAR [facility] Urine Glucose (UA) NORMAL NORMAL mg/dL [facility] Urine Bilirubin NEGATIVE NEGATIVE mg/dl [facility] Urine Ketones NEGATIVE NEGATIVE mg/dL [facility] Ur Specific [place] 1.018 1.005 - 1.025 [facility] Urine Blood 0.03(A) NEGATIVE mg/dl [facility] Urine pH 6.0 5.0 - 8.0 [facility] Urine Protein NEGATIVE NEGATIVE mg/dL [facility] Urine Urobilinogen NORMAL NORMAL mg/dL [facility] Urine Nitrite NEGATIVE NEGATIVE [facility] Ur Leukocyte Esterase NEGATIVE NEGATIVE Sammie/ul [facility] Ur Microscopic Review Not Indicated [facility] Urine RBC 6-10 0 - 2 /HPF [facility] Urine WBC 0-5 0 - 2 /HPF [facility] Urine Bacteria Trace /HPF [facility] Urine Mucus Present /LPF [facility] Ur Squamous Epith Cells 21-50 /LPF [facility] 03/14/2020 8:08 PM PRODUCTION LINE WORKER 03/14/2020 8:41 PM PRODUCTION LINE WORKER Narrative [facility] - 03/14/2020 8:51 PM PRODUCTION LINE WORKER Indication(s) for ordering ?? Pain-pelv/flank/suprapubc dg Clean catch Resulting Agency Comment ER [facility] MICROBIOLOG[facility] - GENERA L ORDERABLES Final Result [facility] [address] [place] [address], [facility] [phone] * Hemogram with manual differential (03/14/2020 7:34 PM PRODUCTION LINE WORKER) WBC 7.7 3.8 - 9.9 X10 3/ul [facility] RBC 4.63 3.90 - 5.20 x10 6/ul [facility] Hemoglobin 13.4 11.9 - 15.5 g/dL [facility] Hct 41.4 35.6 - 45.5 % [facility] MCV 89.4 81.3 - 96.4 fl [facility] MCH 28.9 27.1 - 33.3 pg [facility] MCHC 32.4 32.3 - 35.7 g/dl [facility] RDW 12.2 11.1 - 14.9 % [facility] Plt Count 236 150 - 400 x10 3/ul [facility] MPV 10.8 9.1 - 12.3 fl [facility] MANUAL DIFF MANUAL DIFF - [facility] Neutrophils % (Manual) 68 % [facility] Lymphocytes % (Manual) 23 % [facility] Atypical Lymphs % 1 0 - 6 % [facility] Monocytes % (Manual) 5 % [facility] Eosinophils % (Manual) 3 % [facility] ABSOLUTE COUNTS ABSOLUTE COUNTS - [facility] Abs Neuts cells/mm3 5,236 /ul [facility] Absolute Neutrophils 5.2 1.7 - 6.5 x10 3/ul [facility] Absolute Lymphocytes 1.8 0.8 - 3.3 x10 3/ul [facility] ATYPICAL LYMPH ABS# 0.1 0 - 0.3 x10 3/ul [facility] Absolute Monocytes 0.4 0.2 - 0.8 x10 3/ul [facility] Absolute Eosinophils 0.2 0.0 - 0.5 x10 3/ul [facility] Smudge Cells # 3 /100 WBC [facility] Platelet Evaluation AGREE AGREE [facility] Comment: Slide review of platelets correlates with instrument count. RBC Morphology NORMAL NORMAL [facility] 03/14/2020 7:34 PM PRODUCTION LINE WORKER 03/14/2020 7:41 PM PRODUCTION LINE WORKER Narrative Resulting Agency Comment ER us [facility] BLOOD ORDERABLES Estefany l Result [address] [phone] * (ABNORMAL) Comprehensive metabolic panel (03/14/2020 7:33 PM PRODUCTION LINE WORKER) Sodium 141 135 - 145 mmol/L [facility] Potassium 3.7 3.3 - 5.1 mmol/L [facility] Chloride 104 96 - 108 mmol/L [facility] Carbon Dioxide 30 22 - 32 mmol/L [facility] Anion Gap 7 7 - 16 [facility] Glucose 105(H) 70 - 100 mg/dL [facility] BUN 8 8 - 25 mg/dL [facility] Creatinine 0.5 0.5 - 1.1 mg/dL [facility] Comment: NOTE: Estimated GFR (Cockroft-Gault) will NOT be calculated unless patient Height and Weight were entered. Also, Kidney Disease Stage (GFR) and Estimated GFR (Cockroft-Gault) will NOT be calculated if Creatinine result is <0.2. Kidney Disease Stage >90 mL/MIN [facility] Comment: NOTE; ??The GFR is an estimated value using the creatinine, sex, age, and race of the patient. THE Estimated Kidney Disease GFR is validated for AGES 18-70 YEARS STAGE ?mL/Min ?DESCRIPTION ??1 ?90 mL/min or more ?Normal or elevated GFR ??2 ? 60-89 mL/min ?Mildly decreased GFR ??3 ? 30-59 mL/min ?Moderately decreased GFR ??4 ? 15-29 mL/min ?Severely decreased GFR ??5 ? <15 mL/min ? Kidney failure or on dialysis Est GFR (Cockcroft-G) 127 ml/MIN [facility] Comment: Estimated GFR(Cockroft-Gault)is used to calculate patient medication dosage Calcium 9.7 8.6 - 10.3 mg/dL [facility] Total Protein 7.3 6.4 - 8.3 g/dL [facility] Albumin 4.8 3.5 - 5.0 g/dL [facility] Globulin 2.5 2.3 - 3.5 gm/dL [facility] Albumin/Globulin Ratio 1.9(H) 1.1 - 1.8 [facility] Total Bilirubin 0.2 0.0 - 1.2 mg/dL [facility] AST 14 0 - 32 U/L [facility] ALT 15 0 - 33 U/L [facility] Alkaline Phosphatase 70 35 - 104 U/L [facility] 03/14/2020 7:33 PM PRODUCTION LINE WORKER 03/14/2020 7:41 PM PRODUCTION LINE WORKER Narrative Resulting Agency Comment ER us [facility] BLOOD ORDERABLES [place] [address], [facility] [phone] * CT Abdomen Pelvis W Contrast (03/14/2020 7:07 PM PRODUCTION LINE WORKER) Anatomical Region Laterality Modality Body N/A Computed Tomogra phy 03/14/2020 10:5 9 PM PRODUCTION LINE WORKER Narrative 03/14/2020 11:07 PM PRODUCTION LINE WORKER Patient Name: DIOGENES MONET ?Ordering Dr: Poornima Del Castillo-C ?? D.O.B: 2000 ? Exam Date: 03/14/20 ?? 1907 ?? Age: 19 ?Sex: Female ? MR#: [id number] ?? Loc: ? RADIOLOGY REPORT ?? Order #[id number] ?? CT Scan ? CT Abd/Pelvis W IV Contrast ? Signed ? EXAM DESCRIPTION: ?? CT Abd/Pelvis W IV Contrast ? REASON FOR STUDY: ?? Right-sided/mid abdominal pain; 2 days duration; nausea, ?? vomiting, fever, diarrhea ? TECHNIQUE: ??CT scan of the abdomen and pelvis performed with intravenous and ? without oral contrast using helical scanning technique with dynamic ?? intravenous contrast injection. Reconstructed coronal and sagittal MPR images ?? reviewed. All images stored on PACS. ?Automated exposure control was used as a dose optimization technique for this ?? examination. ? CONTRAST TYPE/DOSE: ?? 100 mL Optiray 350 injected via ??right hand IV site. ? COMPARISON: ?? CT abdomen/pelvis 12/09/2018. ? FINDINGS: ? LOWER CHEST: ??No significant abnormality is visualized. ? LIVER: ??Enhances normally. Normal size. ? GALLBLADDER: ??Normal. ? BILE DUCTS: ??No intrahepatic or extrahepatic ductal dilatation. ? PANCREAS: ??Enhances normally. ??No peripancreatic inflammatory change. ? SPLEEN: ??Enhances normally. Normal size. ? ADRENALS: ??Normal. ? KIDNEYS/URINARY TRACT: ??No visualized stones. No hydronephrosis or ?? hydroureter. Symmetric enhancement. ?Urinary bladder is unremarkable. ? REPRODUCTIVE: ??Ill-defined rim enhancing soft tissue within the left aspect of ?? the uterine myometrium, axial image 127, measuring up to 1 cm. ??This may ?? relate to some prominent vascularity, though is poorly evaluated by the CT ?? technique. ??Pelvic sonography follow-up is recommended, when clinically ?? feasible. ??Uterus and ovaries appear otherwise unremarkable. ? GI: ??Liquefied stool within the nondilated colon, suggesting a diarrheal ?? state. ??Normal appendix. ? PERITONEUM: ??Small amount of free dependent pelvic fluid, within physiologic ?? limits. ??No intraperitoneal free air. ? RETROPERITONEUM: ??No suspicious abdominal or pelvic lymphadenopathy. ? VASCULATURE: ??No abdominal aortic aneurysm. ? MUSCULOSKELETAL: ??No suspicious abnormality. ? OTHER: ??No other abnormality. ? IMPRESSION: ? 1. ??Liquefied stool within the nondilated colon, suggesting a diarrheal state. ? 2. ??Small amount of free dependent pelvic fluid, within physiologic limits. ? 3. ??Ill-defined rim enhancing soft tissue within the left aspect of the ?? uterine myometrium, measuring up to 1 cm. ??Pelvic sonography follow-up ?? recommended, when clinically feasible. ? THIS IS AN ELECTRONICALLY VERIFIED FINAL REPORT ?? 03/14/2020 11:07 PM - Electronically signed by Hair Koroma M.D. ?? Hair Koroma M.D. ? RT: RT ?? D: ??03/14/2020 11:07 PM ?? T: ??03/14/2020 11:07 PM ? Report ID: [id number] ?? Reading Location: ??[id number] ? REPORT ELECTRONICALLY SIGNED IN OTHER VENDOR SYSTEM ?? Resulting Agency Comment E Procedure Note Hair Koroma MD - 03/14/2020 Patient Name: CHIKIDIOGENESJuan Mix Dr: Poornima Del Castillo PA-C, D.O.B: 2000 Exam Date: 03/14/201906 Age: 19 Sex: Female MR#: [id number] Loc: RADIOLOGY REPORT Order #[id number] CT Scan CT Abd/Pelvis W IV Contrast Signed EXAM DESCRIPTION: CT Abd/Pelvis W IV Contrast REASON FOR STUDY: Right-sided/mid abdominal pain; 2 days duration;nausea, vomiting, fever, diarrhea TECHNIQUE: CT scan of the abdomen and pelvis performed with intravenousand without oral contrast using helical scanning technique with dynamic intravenous contrast injection. Reconstructed coronal and sagittal MPRimages reviewed. All images stored on PACS. Automated exposure control was used as a dose optimization technique forthis examination. CONTRAST TYPE/DOSE: 100 mL Optiray 350 injected via right hand IVsite. COMPARISON: CT abdomen/pelvis 12/09/2018. FINDINGS: LOWER CHEST: No significant abnormality is visualized. LIVER: Enhances normally. Normal size. GALLBLADDER: Normal. BILE DUCTS: No intrahepatic or extrahepatic ductal dilatation. PANCREAS: Enhances normally. No peripancreatic inflammatory change. SPLEEN: Enhances normally. Normal size. ADRENALS: Normal. KIDNEYS/URINARY TRACT: No visualized stones. No hydronephrosis or hydroureter. Symmetric enhancement. Urinary bladder is unremarkable. REPRODUCTIVE: Ill-defined rim enhancing soft tissue within the leftaspect of the uterine myometrium, axial image 127, measuring up to 1 cm. This may relate to some prominent vascularity, though is poorly evaluated by theCT technique. Pelvic sonography follow-up is recommended, when clinically feasible. Uterus and ovaries appear otherwise unremarkable. GI: Liquefied stool within the nondilated colon, suggesting a diarrheal state. Normal appendix. PERITONEUM: Small amount of free dependent pelvic fluid, withinphysiologic limits. No intraperitoneal free air. RETROPERITONEUM: No suspicious abdominal or pelvic lymphadenopathy. VASCULATURE: No abdominal aortic aneurysm. MUSCULOSKELETAL: No suspicious abnormality. OTHER: No other abnormality. IMPRESSION: 1. Liquefied stool within the nondilated colon, suggesting a diarrhealstate. 2. Small amount of free dependent pelvic fluid, within physiologiclimits. 3. Ill-defined rim enhancing soft tissue within the left aspect of the uterine myometrium, measuring up to 1 cm. Pelvic sonography follow-up recommended, when clinically feasible. THIS IS AN ELECTRONICALLY VERIFIED FINAL REPORT 03/14/2020 11:07 PM - Electronically signed by Hair Koroma M.D. RT: RT Report ID: [id number] Reading Location: [place] [address] REPORT ELECTRONICALLY SIGNED IN OTHER VENDOR SYSTEM [facility] CT PROCEDURES Final R esult documented in this encounter Visit Diagnoses Not on filedocumented in this encounter Care Teams Pipeline Gang Supervisor Relationship Specialty Start Date End Date Shana Easton MD [address] [address] PCP - General 05/05/18 12/30/20 documented as of this encounter
--- OUTSIDE RECORDS SUMMARY | 2024-03-15 14:56 | XMS_ITS | Encounter Summary ---
Author Organization [facility] Healthcare Address [address] [place] [address] Care Team Providers Care Director Of Strategic Sales Name Role Phone No, Physician Primary Care Provider Encounter Details Date Type Department Care Team (Late st Contact Info) Description 08/23/2022 Patient Self-Triage [facility] [place] [address] Mychart, Generic Provider [address] [place], [place] [id number] Social History Tobacco Use Types Packs/Day Years [...] filedocumented in this encounter Care Teams Director Of Strategic Sales Relationship Specialty Start Date End Date No, Physician PCP - General 08/06/22 documented as of this encounter
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
--- OUTSIDE RECORDS SUMMARY | 2024-03-15 14:56 | XMS_ITS | Encounter Summary ---
Author Organization [facility] Healthcare Address [address] [place] [address] Care Team Providers Care Organization Development Consultant Name Role Phone No, Physician Primary Care Provider [phone] Reason for Visit * Reason Comments Vaginal Bleeding - Encounter Details Date Type Department Care Team (Late st Contact Info) Description 08/19/2022 10:42 PM CDT - 08/20/2022 1:43 AM CDT Emergency [facility] Emergency Department [address] [place] [address] [id number] Amairani Schmitz MD [address] [place] [address] [place] [address] Bleeding in early (Primary Dx); Abdominal pain during , antepartum Discharge Disposition: Discharge to home or self [...] Sign Reading Time Taken Comments Blood Pressure 97/59 08/20/2022 1:30 AM CDT Pulse 75 08/20/2022 1:30 AM CDT Temperature 36.7 ??C (98.1 ??F) 08/19/2022 10:37 PM C DT Respiratory Rate 20 08/20/2022 1:30 AM CDT Oxygen Saturation 98% 08/20/2022 1:30 AM CDT Inhaled Oxygen Concentration - - Weight 51.3 kg (113 lb 1.5 oz) 08/19/2022 10:37 PM CDT Height 160 cm (5' 3 ) 08/19/2022 10:37 PM CDT Body Mass Index 20.03 08/19/2022 10:37 PM CDT documented in this encounter Discharge Instructions * Discharge Instructions* Amairani Schmitz MD - 08/20/2022 1:32 AM CDT Tylenol every 4-6hours Warm heating pads for pain Follow up with your OB doctor Return to the ER for worsening vaginal bleeding, worsening abdominal pain or lightheadedness syncope * Attachments The following attachments cannot be sent through Care Everywhere. * Abdominal Pain in (Medical Center Director) (Belarusian) documented in this encounter Medications at Time of Discharge metoclopramide (REGLAN) 10 mg tablet Take 1 tablet (10 mg total) by mouth every 6 (six) hours 30 tablet 08/12/2022 02/21/2023 documented as of this encounter Discharge Disposition Disposition Code Departure Means Destination Comment s Discharge to home or self care documented in this encounter ED Notes * Amairani Schmitz MD - 08/20/2022 12:51 AM CDT HPI Chief Complaint Patient presents with Vaginal Bleeding - HPI 12:51 AM Mariam Lea is a 21 y.o. female presenting to the ED c/o vaginal bleeding. Patient is 13weeks and has had a couple prior miscarriages. Patient has had 2 ultrasounds that both confirmed IUP. The last ultrasound showed I his cyst on the right ovary. An hour prior to arrival patient had a large amount of vaginal bleeding. Bleeding has now resolved. Patient also having lower abdominal cramping Patient History: Past Medical History: Diagnosis Date Asthma Past Surgical History: Procedure Laterality Date TONSILECTOMY, ADENOIDECTOMY, BILATERAL MYRINGOTOMY AND TUBES No family history on file. Social History Tobacco Use Smoking status: Never Smokeless tobacco: Not on file Substance and Sexual Activity Drug use: Never Sexual activity: Not on file Alcohol Use: Not on file No current facility-administered medications for this encounter. Current Outpatient Medications: metoclopramide (REGLAN) 10 mg tablet Review of Systems Review of Systems All systems reviewed and are neg or non contributory for this patients presentation today other than as stated in the HPI . Physical Exam ED Triage Vitals [08/19/22 2237] Temp Pulse Resp BP SpO2 36.7 ??C (98.1 ??F) 87 20 122/88 97 % Temp src Heart Rate Source Patient Position BP Location FiO2 (%) Oral -- -- -- -- Height Height Method Weight Weight Method 1.6 m (5' 3 ) Stated 51.3 kg (113 lb 1.5 oz) EMS stretcher scale Physical Exam Vitals and nursing note reviewed. Constitutional: General: She is not in acute distress. Appearance: Normal appearance. HENT: Head: Normocephalic and atraumatic. Nose: Nose normal. Eyes: General: Right eye: No discharge. Left eye: No discharge. Conjunctiva/sclera: Conjunctivae normal. Cardiovascular: Rate and Rhythm: Normal rate and regular rhythm. Pulmonary: Effort: Pulmonary effort is normal. No respiratory distress. Breath sounds: Normal breath sounds. No wheezing. Abdominal: General: There is no distension. Palpations: Abdomen is soft. Tenderness: There is no abdominal tenderness. Musculoskeletal: General: No swelling, tenderness or deformity. Normal range of motion. Cervical back: Normal range of motion. No rigidity. Skin: General: Skin is warm and dry. Neurological: General: No focal deficit present. Mental Status: She is alert and oriented to person, place, and time. Psychiatric: Mood and Affect: Mood normal. Behavior: Behavior normal. Procedures MDM Labs Reviewed CBC WITH AUTO DIFFERENTIAL - Abnormal Result Value WBC 11.1 (*) Hgb 13.6 Hct 39.8 Plt 164 MPV 11.9 RBC 4.61 MCV 86.3 MCH 29.5 MCHC 34.2 RDW CV 13.1 RDW SD 40.5 NRBC abs 0.00 BASIC METABOLIC PANEL - Abnormal Sodium 137 Potassium, pl 3.3 Chloride 101 CO2 22 Anion gap 14 BUN 6 (*) Creatinine 0.40 (*) Glucose 88 Calcium 9.7 DIFFERENTIAL AUTO - Abnormal Neutrophil abs 8.6 (*) Imm gran abs 0.1 Lymphocyte abs 1.7 Monocyte abs 0.6 Eosinophil abs 0.1 Basophil abs 0.1 Neutrophil pct 77.8 Imm gran pct 0.4 Lymphocyte pct 15.1 Monocyte pct 4.9 Eosinophil pct 1.3 Basophil pct 0.5 TYPE AND SCREEN ABO/RH ABO/Rh A Positive Narrative: Has the patient had Daratumumab or Isatuximab in the past 6 months?->Unknown ANTIBODY SCREEN Delilah, indirect, Gel Interpretation Negative ABSC Narrative: Has the patient had Daratumumab or Isatuximab in the past 6 months?->Unknown EGFR eGFR 143 No orders to display BP 97/59 Pulse 75 Temp 36.7 ??C (98.1 ??F) (Oral) Resp 20 Ht 160 cm (5' 3 ) Wt 51.3 kg (113 lb 1.5 oz) LMP 05/17/2022 (Exact Date) SpO2 98% BMI 20.03 kg/m?? MDM Amount and/or Complexity of Data Reviewed Clinical lab tests: reviewed Decide to obtain previous medical records or to obtain history from someone other than the patient:yes ED Course as of 08/20/22 0437 Time: 08/20 54 Comment: BMP and CBC normal. Patient is A positive. There was no further bleeding on exam. Consulted Dr. Dewey who recommends follow up in the office if patient's cervix is closed. By: Amairani Schmitz MD Time: 08/21 127 Comment: Cervix closed and no bleeding on exam By: Amairani Schmitz MD This examination was transcribed using the [employer] voice recognition system without human hammer shop supervisor. In an effort to expedite patient care, this report has not been adjusted for typographical, grammatical, and syntax by a trained medical recruiter. Clinical Impression: Bleeding in early Abdominal pain during , antepartum Amairani Schmitz MD 08/20/22 0438 * Jayleen Rose, RN - 08/19/2022 10:33 PM CDT Pt here stating that she is 13 weeks . States that around an hour prior to arrival she had a large amount of fluid come out and now is having heavy bleeding with cramping. documented in this encounter Plan of Treatment Not on file documented as of this encounter Procedures Procedure Name Priority Date/Time Associated Diagnosis Comments EGFR STAT 08/19/2022 11:01 PM CDT DIFFERENTIAL AUTO STAT 08/19/2022 11: 01 PM CDT CBC WITH AUTO DIFFERENTIAL STAT 08/19/2022 11:01 PM CDT ABO/RH STAT 08/19/2022 11:01 PM CDT ANTIBODY SCREEN STAT 08/19/2022 11:01 PM CDT HC ANTIBODY SCREEN RBC STAT 08/19/2022 11:01 PM CDT BASIC METABOLIC PANEL STAT 08/19/2022 11:01 PM CDT documented in this encounter Results * eGFR (08/19/2022 11:01 PM CDT) Pathologist [facility] eGFR 143 mL/min/1. 73 m2 [facility] [...] was last reviewed 2021. Testing performed by: [address] [address] Blood 08/19/2022 11:0 1 PM CDT 08/19/2022 11:05 PM CDT us Amairani Schmitz MD LAB BLOOD ORDERABLES Estefany lindsey Result [facility] [address] [facility] Department [place] [address] * (ABNORMAL) Differential, auto (08/19/2022 11:01 PM CDT) Neutrophil abs 8.6(H) 1.7 - 6.5 K/cumm ALBERTO Comment:Testing performed by : [address] [address] Imm gran abs 0.1 0.0 - 0.1 K/cumm [facility] Comment:Testing performed by : [address] [address] Lymphocyte abs 1.7 0.8 - 3.3 K/cumm AL[facility]ERTO Comment:Testing performed by : [address] [address] Monocyte abs 0.6 0.2 - 0.8 K/cumm [facility] Comment:Testing performed by : [address] [address] Eosinophil abs 0.1 0.0 - 0.5 K/cumm [facility] Comment:Testing performed by : [address] [address] Basophil abs 0.1 0.0 - 0.1 K/cumm [facility] Comment:Testing performed by : [address] [address] Neutrophil pct 77.8 % [facility] Comment: Interpretive Data Percent cell count reference ranges are not reported, since discordance with absolute values may lead to misinterpretation of CBC data. Current Interpretive Data was last revised on 2017. Testing performed by: [address] [address] Imm gran pct 0.4 % [facility] Comment: Interpretive Data Percent cell count reference ranges are not reported, since discordance with absolute values may lead to misinterpretation of CBC data. Current Interpretive Data was last revised on 2017. Testing performed by: [address] [address] Lymphocyte pct 15.1 % [facility] Comment: Interpretive Data Percent cell count reference ranges are not reported, since discordance with absolute values may lead to misinterpretation of CBC data. Current Interpretive Data was last revised on 2017. Testing performed by: [address] [address] Monocyte pct 4.9 % [facility] Comment: Interpretive Data Percent cell count reference ranges are not reported, since discordance with absolute values may lead to misinterpretation of CBC data. Current Interpretive Data was last revised on 2017. Testing performed by: [address] [address] Eosinophil pct 1.3 % [facility] Comment: Interpretive Data Percent cell count reference ranges are not reported, since discordance with absolute values may lead to misinterpretation of CBC data. Current Interpretive Data was last revised on 2017. Testing performed by: [address] [address] Basophil pct 0.5 % [facility] Comment: Interpretive Data Percent cell count reference ranges are not reported, since discordance with absolute values may lead to misinterpretation of CBC data. Current Interpretive Data was last revised on 2017. Testing performed by: [address] [address] Blood 08/19/2022 11:0 1 PM CDT 08/19/2022 11:05 PM CDT Amairani Schmitz MD LAB BLOOD ORDERABLES Estefany l Result Performing Organization Address City/[facility]/ZIP Co de Phone Number [address] [place] [address] * Antibody screen (08/19/2022 11:01 PM CDT) Delilah, indirect, Gel Interpretation Negative ABSC [facility] Comment:Testing performed by : [address] [address] Blood 08/19/2022 11:0 1 PM CDT 08/19/2022 11:05 PM CDT Narrative AL[facility]ERTO - 08/19/2022 11:53 PM CDT Has the patient had Daratumumab or Isatuximab in the past 6 months?->Unknown Amairani Schmitz MD LAB BLOOD BANK TEST ORDER LUTHER Final Result Performing Organization Address [facility] Co de Phone Number [address] [facility] [place] [address] * ABO/Rh (08/19/2022 11:01 PM CDT) ABO/Rh A Positive [facility] Comment:Testing performed by : [address] [address] Blood 08/19/2022 11:0 1 PM CDT 08/19/2022 11:05 PM CDT Narrative ALBERTO - 08/19/2022 11:53 PM CDT Has the patient had Daratumumab or Isatuximab in the past 6 months?->Unknown Amairani Schmitz MD LAB BLOOD BANK TEST ORDER LUTHER Final Result [facility] [address] [facility] Department [place] [address] * (ABNORMAL) Basic metabolic panel (08/19/2022 11:01 PM CDT) Sodium 137 135 - 145 mmol/L [facility] Comment:Testing performed by : [address] [address] Potassium, pl 3.3 3.3 - 4.9 mmol/L [facility] Comment:Testing performed by : [address] [address] Chloride 101 97 - 110 mmol/L [facility] Comment:Testing performed by : [address] [address] CO2 22 22 - 32 mmol/L [facility] Comment:Testing performed by : [address] [address] Anion gap 14 2 - 15 mmol/L [facility] Comment:Testing performed by : [address] [address] BUN 6(L) 8 - 25 mg/dL [facility] Comment:Testing performed by : [address] [address] Creatinine 0.40(L) 0.60 - 1.10 mg/dL [facility] Comment:Testing performed by : [address] [address] Glucose 88 70 - 199 mg/dL [facility] Comment: Interpretive [...] was last revised 2022. Testing performed by: [address] [address] Calcium 9.7 8.5 - 10.3 mg/dL [facility] Comment:Testing performed by : [address] [address] Blood 08/19/2022 11:0 1 PM CDT 08/19/2022 11:05 PM CDT us Amairani Schmitz MD LAB BLOOD ORDERABLES Estefany lindsey Result AL[facility]ERTO [facility] [address] [facility] Department [place] [address] * (ABNORMAL) CBC with auto differential (08/19/2022 11:01 PM CDT) WBC 11.1(H) 3.8 - 9.9 K/cumm [facility] Comment:Testing performed by : [address] [address] Hgb 13.6 11.9 - 15.5 g/dL [facility] Comment:Testing performed by : [address] [address] Hct 39.8 35.6 - 45.5 % [facility] Comment:Testing performed by : [address] [address] Plt 164 150 - 400 K/cumm [facility] Comment:Testing performed by : [address] [address] MPV 11.9 9.1 - 12.3 fL [facility] Comment:Testing performed by : [address] [address] RBC 4.61 3.90 - 5.20 M/cumm [facility]UCA Comment:Testing performed by : [address] [address] MCV 86.3 81.3 - 96.4 fL [facility]O [facility]UCA Comment:Testing performed by : [address] [address] MCH 29.5 27.1 - 33.3 pg [facility]O [facility]UCA Comment:Testing performed by : [address] [address] MCHC 34.2 32.3 - 35.7 g/dL [facility]UCA Comment:Testing performed by : [address] [address] RDW CV 13.1 11.1 - 14.9 % [facility] Comment:Testing performed by : [address] [address] RDW SD 40.5 35.7 - 48.1 fL [facility]UCA Comment:Testing performed by : [address] [address] NRBC abs 0.00 0.00 - 0.01 K/cumm [facility]UCA Comment:Testing performed by : [address] [address] Blood (Blood, Venous) 08/19/2022 11:01 PM CDT 08/19/2022 11:05 PM CDT Amairani Schmitz MD LAB BLOOD ORDERABLES Estefany lindsey Result [facility]O [facility] Department [place] [address] documented in this encounter Visit Diagnoses Diagnosis Bleeding in early - Primary Unspecified hemorrhage in early , unspecified as to episode of care Abdominal pain during , antepartum documented in this encounter Administered Medications Inactive Administered Medications - up to 3 most recent administrations Medication Order MAR Action Action Date Dose Rate Site acetaminophen (TYLENOL) tablet 650 mg 650 mg, oral, Once, On 08/19/22 at 2304, For 1 dose Given 08/19/2022 11:13 PM CDT 650 mg documented in this encounter Active and Recently Administered Medications Times are shown in CDT. Scheduled Medication Order 08/18/2022 08/19/2022 08/20/2022 acetaminophen (TYLENOL) tablet 650 mg (COMPLETED) 650 mg, oral, Once, On 08/19/22 at 2304, For 1 dose 2313 (Given - Provider: Lis Donald, RN) documented in this encounter Orders Medications Ordered That Arthur ht Not Have Been Administered Count Last Ordered Date First Ordered Date acetaminophen (TYLENOL) tablet 650 mg 1 IV Count Last Ordered Date First Orde red Date SALINE LOCK IV 1 08/19/2022 documented in this encounter Care Teams Organization Development Consultant Relationship Specialty Start Date End Date No, Physician PCP - General 08/06/22 documented as of this encounter
--- OUTSIDE RECORDS SUMMARY | 2024-03-15 14:56 | XMS_ITS | Encounter Summary ---
Author Organization [facility] Healthcare Address [address] [place] [address] Care Team Providers Care Architectural Intern Name Role Phone No, Physician Primary Care Provider [phone] Encounter Details Date Type Department Care Team (Late st Contact Info) Description 12/21/2022 Patient Self-Triage [facility] Health[facility] Physicians [facility] [place] [address] Mychart, Generic Provider [address] [place], [place] [id number] Social History Tobacco Use Types Packs/Day Years [...] on filedocumented in this encounter Care Teams Architectural Intern Relationship Specialty Start Date End Date No, Physician PCP - General 08/06/22 documented as of this encounter
--- OUTSIDE RECORDS SUMMARY | 2024-03-15 14:56 | XMS_ITS | Encounter Summary ---
Author Organization [facility] Address [address] [address] [place] [address] Care Team Providers Care Optimization Analyst Name Role Phone Nicky Ferroy OZIEL Primary Care Provider Encounter Details Date Type Department Care Team (Late st Contact Info) Description 07/09/2022 E-Visit [facility] Virtual Care [address] [place] [address] Nadiya Valente, OZIEL [address] [place] [address] E-Visit for COVID-19 Evaluation Social History Tobacco Use Types Packs/Day Years [...] encounter Miscellaneous Notes * E-Visit Note - Nadiya Valente NP - 07/09/2022 6:28 PM CDT Mariam Lea 07/09/2022 E-Visit Submission Subjective/Objective: Mariam Lea contacted the office today via e-visit for COVID-19 evaluation. The patient-submitted questionnaire was assessed for pertinent information and the patient's problem list, medication list, and allergies were reviewed as part of the e-visit. The chart was updated to identify any changes in these areas. Assessment: No diagnosis found. Plan: The patient was given information regarding any new medication(s) prescribed, if applicable, as well as any [id number] remedies. She was given instructions regarding follow up and timeframe if symptoms worsen or don???t improve. These instructions were included in the [employer] message reply tothe patient. Patient Instructions were included in the message reply to patient. My total encounter time on 07/09/2022 was 5 minutes which was spent in the activities documented inthe note. Nadiya Valente NP documented in this encounter Plan of Treatment Not on file documented as of this encounter Visit Diagnoses Not on filedocumented in this encounter Care Teams Optimization Analyst Relationship Specialty Start Date End Date La Nena Ferro NP [address] [place] [address] PCP - General Family Medicine 05/22/22 08/05/22 documented as of this encounter
--- OUTSIDE RECORDS SUMMARY | 2024-03-15 14:56 | XMS_ITS | Encounter Summary ---
Author Organization [facility] Healthcare Address [address] [place] [address] Care Team Providers Care Grain Mill Products Inspector Name Role Phone FerroLa Nena bob OZIEL Primary Care Provider [phone] Encounter Details Date Type Department Care Team (Late st Contact Info) Description 06/22/2022 9:40 AM CDT Lab [facility] [address] [place] [id number] Social History Tobacco Use Types Packs/Day Years [...] Associated Diagnosis Comments HCG, BLOOD, QUANTITATIVE Routine 06/22/2022 9:49 AM CDT documented in this encounter Results * (ABNORMAL) hCG, blood, quantitative (06/22/2022 9:49 AM CDT) hCG, quant 682.4(H) 0.0 - 5.0 IUnits/L ALBERTO DELUCA Comment: [...] last revised on 2021. Testing performed by: [facility], [address] [place] [address]., [address] Blood 06/22/2022 9:49 AM CDT 06/22/2022 10:38 AM CDT us Kush Perez MD LAB BLOOD ORDERABLES Edit ed Result - Final [facility] [address] [facility] Department [place] [address] documented in this encounter Visit Diagnoses Not on filedocumented in this encounter Care Teams Grain Mill Products Inspector Relationship Specialty Start Date End Date La Nena Ferro NP [address] [facility] [address] [place] [address] PCP - General Family Medicine 05/22/22 08/05/22 documented as of this encounter
--- OUTSIDE RECORDS SUMMARY | 2024-03-15 14:56 | XMS_ITS | Encounter Summary ---
Author Organization [facility] Healthcare Address [address] [place] [address] Care Team Providers Care Organ Tuner Name Role Phone Shana Easton MD Primary Care Provider [phone] Encounter Details Date Type Department Care Team (Late st Contact Info) Description 12/09/2018 9:53 AM CDT - 12/09/2018 12:23 PM CDT Hospital Encounter [facility] Emergency Department [address] [place] [address] Unknown, Cassi Greco, [place] [address] [place] [id number] Discharge Disposition: Discharge to home or self [...] Sign Reading Time Taken Comments Blood Pressure 96/61 12/09/2018 9:56 AM CDT Pulse 56 12/09/2018 9:56 AM CDT Temperature 36.6 ??C (97.8 ??F) 12/09/2018 9:56 AM CD T Respiratory Rate - - Oxygen Saturation 99% 12/09/2018 9:56 AM CDT Inhaled Oxygen Concentration - - Weight 48.8 kg (107 lb 9.4 oz) 12/09/2018 9:56 A M CDT Height 160 cm (5' 3 ) 12/09/2018 9:56 AM CDT Body Mass Index 19.06 12/09/2018 9:56 AM CDT documented in this encounter Discharge Disposition Disposition Code Departure Means Destination Discharge to home or self care documented in this encounter Plan of Treatment Not on file documented as of this encounter Procedures Procedure Name Priority Date/Time Associated Diagnosis Comments CBC WITH AUTO DIFFERENTIAL Routine 12/09/2018 10:18 AM CDT LIPASE Routine 12/09/2018 10:18 AM CDT COMPREHENSIVE METABOLIC PANEL Routine 12/09/2018 10:18 AM CDT URINALYSIS, COMPLETE W/REFLEX TO CULTURE Routine 12/09/2018 10:[address] ABDOMEN PELVIS WO CONTRAST 12/09/2018 12:00 AM CDT documented in this encounter Results * Lipase (12/09/2018 10:18 AM CDT) Lipase 21 13 - 60 U/L [facility] 12/09/2018 10:1 8 AM CDT 12/09/2018 10:22 AM CDT Narrative Resulting Agency Comment ER us Cass[facility] BLOOD ORDERABLES Final Re sult [address] [phone] * (ABNORMAL) Comprehensive metabolic panel (12/09/2018 10:18 AM CDT) Sodium 142 135 - 145 mmol/L [facility] Potassium 3.9 3.3 - 5.1 mmol/L [facility] Chloride 106 96 - 108 mmol/L [facility] Carbon Dioxide 25 22 - 32 mmol/L [facility] Anion Gap 11 7 - 16 [facility] Glucose 81 70 - 100 mg/dL [facility] BUN 9 8 - 25 mg/dL [facility] Creatinine 0.5 0.5 - 1.1 mg/dL [facility] Comment: NOTE: Estimated GFR (Cockroft-Gault) will NOT be calculated unless patient Height and Weight were entered. Also, Kidney Disease Stage (GFR) and Estimated GFR (Cockroft-Gault) will NOT be calculated if Creatinine result is <0.2. Kidney Disease Stage >90 mL/MIN [facility] Comment: NOTE; ??The GFR is an estimated [...] failure or on dialysis Est GFR (Cockcroft-G) 138 ml/MIN [facility] Comment: Estimated GFR(Cockroft-Gault)is used to calculate patient medication dosage Calcium 9.4 8.6 - 10.3 mg/dL [facility] Total Protein 7.1 6.4 - 8.3 g/dL [facility] Albumin 4.8 3.5 - 5.0 g/dL [facility] Globulin 2.3 2.3 - 3.5 gm/dL [facility] Albumin/Globulin Ratio 2.1(H) 1.1 - 1.8 [facility] Total Bilirubin 0.2 0.0 - 1.2 mg/dL [facility] AST 12 0 - 32 U/L [facility] ALT 12 0 - 33 U/L [facility] Alkaline Phosphatase 59 35 - 104 U/L [facility] 12/09/2018 10:1 8 AM CDT 12/09/2018 10:22 AM CDT Narrative Resulting Agency Comment ER us Cass[facility] BLO[facility] ORDERABLES Final Re sult [facility] [address] [place] [address] * (ABNORMAL) CBC with auto differential (12/09/2018 10:18 AM CDT) WBC 6.3 3.8 - 9.9 X10 3/ul [facility] RBC 4.45 3.90 - 5.20 x10 6/ul [facility] Hemoglobin 12.7 11.9 - 15.5 g/dL [facility] Hct 39.4 35.6 - 45.5 % [facility] MCV 88.5 81.3 - 96.4 fl [facility] MCH 28.5 27.1 - 33.3 pg [facility] MCHC 32.2(L) 32.3 - 35.7 g/dl [facility] RDW 12.5 11.1 - 14.9 % [facility] Plt Count 231 150 - 400 x10 3/ul [facility] MPV 11.1 9.1 - 12.3 fl [facility] Neut % 68.8 % [facility] AST [employer] Immature Gran % 0.3 % [facility] Lymph % 21.4 % [facility] AST - [facility] Glades % 7.4 % [facility] AST - [employer] Eos % 1.6 % [facility] AST - [employer] AUTO BASO % 0.5 % [facility] NEUTROPHIL ABS # 4.3 1.7 - 6.5 x10 3/ul [facility] Immature Gran # 0.0 0.0 - 0.1 x10 3/ul [facility] Absolute Lymphs (auto) 1.4 0.8 - 3.3 x10 3/ul [facility] Absolute Monos (auto) 0.5 0.2 - 0.8 x10 3/ul [facility] Absolute Eos (auto) 0.1 0.0 - 0.5 x10 3/ul [facility] BASOPHIL ABS # 0.0 0.0 - 0.1 x10 3/ul [facility] Nucleat RBC Rel Count 0.0 #/100WBC [facility] NRBC abs 0.00 0.00 - 0.01 x10 3/ul [facility] Absolute Neutrophils 4,300 200 - 8,000 /ul [facility] 12/09/2018 10:1 8 AM CDT 12/09/2018 10:22 AM CDT Narrative Resulting Agency Comment ER us Cass[facility] BLOOD ORDERABLES Final Re sult [address] [phone] * (ABNORMAL) URINALYSIS, COMPLETE W/REFLEX TO CULTURE (12/09/2018 10:00 AM CDT) Ur Collection Type CLEAN CATCH [facility] Ur Culture Indicated? C S NOT INDICATED [facility] Urine Color YELLOW YELLOW [facility] Urine Clarity CLEAR CLEAR [facility] Urine Glucose (UA) NORMAL NORMAL mg/dL [facility] Urine Bilirubin NEGATIVE NEGATIVE mg/dl [facility] Urine Ketones NEGATIVE NEGATIVE mg/dL [facility] Ur Specific [place] 1.014 1.005 - 1.025 [facility] Urine Blood 0.2(A) NEGATIVE mg/dl [facility] Urine pH 5.0 5.0 - 8.0 [facility] Urine Protein NEGATIVE NEGATIVE mg/dL [facility] Urine Urobilinogen NORMAL NORMAL mg/dL [facility] Urine Nitrite NEGATIVE NEGATIVE [facility] Ur Leukocyte Esterase NEGATIVE NEGATIVE Sammie/ul [facility] Ur Microscopic Review Indicated or Ordered [facility] Urine RBC 7 0 - 2 /HPF [facility] Urine WBC 1 0 - 2 /HPF [facility] Urine Bacteria Rare /HPF [facility] Urine Mucus RARE /LPF [facility] Ur Squamous Epith Cells Rare /LPF [facility] 12/09/2018 10:0 0 AM CDT 12/09/2018 10:09 AM CDT Narrative [facility] - 12/09/2018 10:22 AM CDT Indication(s) for ordering ?? Dysuria anm Clean catch Resulting Agency Comment ER us Cass[facility] URINE ORDERABLES [place] [address], [facility] [phone] * CT Abdomen Pelvis WO Contrast (12/09/2018 12:00 AM CDT) Anatomical Region Laterality Modality Body N/A Computed Tomogra phy 12/09/2018 11:5 9 AM CDT Narrative 12/09/2018 12:03 PM CDT Patient Name: DIOGENES CARTER ?Ordering Dr: Cassi Whitaker PA-C ?? D.O.B: 2000 ? Exam Date: 12/09/18 ?? 0000 ?? Age: 18 ?Sex: Female ? MR#: [id number] ?? Loc: ? RADIOLOGY REPORT ?? Order #[id number] ?? CT Scan ? CT Abd/Pelvis WO IV Contrast ? Signed ? EXAM DESCRIPTION: ?? CT Abd/Pelvis WO IV Contrast ? REASON FOR STUDY: ?? Nausea vomiting and diarrhea, urinary burning, occasional ?? back pain, burning pain left of the belly button for 2-3 days ? TECHNIQUE: ??CT scan of the abdomen and pelvis performed without intravenous ?? and without oral contrast using helical scanning technique. Reconstructed ?? coronal and sagittal MPR images reviewed. All images stored on PACS. The ?? sensitivity for detection of solid visceral lesions is diminished without the ?? use of intravenous contrast. Automated exposure control was used as a dose ?? optimization technique for this examination. ? COMPARISON: ??CT abdomen and pelvis 08/05/2018 ? FINDINGS: ? LOWER CHEST: The lung bases are clear. No effusion. ? LIVER: Suboptimally evaluated without intravenous contrast. Normal length. ? GALLBLADDER: No radiodense gallstones. ? SPLEEN: Suboptimally evaluated without intravenous contrast. Normal length. ? PANCREAS: Unable to adequately evaluate without intravenous contrast. ? ADRENALS: No adrenal masses. ? KIDNEYS/URINARY TRACT: Suboptimally evaluated without intravenous contrast. No ?? obstructing urolithiasis or hydronephrosis. ? GI: No bowel obstruction. The appendix is not clearly distinguished from ?? adjacent structures but there are no pericecal inflammatory changes to ?? indicate acute appendicitis. ? PERITONEUM: No ascites or free air. ? VASCULATURE: No abdominal aortic aneurysm. ? MUSCULOSKELETAL: No acute finding. ? OTHER: 2.8 cm right ovarian cystic lesion. ??Intrauterine device. ? IMPRESSION: ? 1. ??No obstructing urolithiasis or hydronephrosis. ? 2. ??Right ovarian cystic lesion. ? THIS IS AN ELECTRONICALLY VERIFIED FINAL REPORT ?? 12/09/2018 12:03 PM - Electronically signed by Toño Hawkins M.D. ?? Toño Hawkins M.D. ? JR: JR ?? D: ??12/09/2018 12:03 PM ?? T: ??12/09/2018 12:03 PM ? Report ID: [id number] ?? Reading Location: ??[id number] ? REPORT ELECTRONICALLY SIGNED IN OTHER VENDOR SYSTEM ?? Resulting Agency Comment E Procedure Note Toño Hawkins MD - 12/09/2018 Patient Name: DIOGENES CARTER Maria Del [address] Dr: Cassi Whitaker PA-C, D.O.B: 2000 Exam Date: 12/09/18 0000 Age: 18 Sex: Female MR#: [id number] Loc: RADIOLOGY REPORT Order #[id number] CT Scan CT Abd/Pelvis WO IV Contrast Signed EXAM DESCRIPTION: CT Abd/Pelvis WO IV Contrast REASON FOR STUDY: Nausea vomiting and diarrhea, urinary burning,occasional back pain, burning pain left of the belly button for 2-3 days TECHNIQUE: CT scan of the abdomen and pelvis performed withoutintravenous and without oral contrast using helical scanning technique. Reconstructed coronal and sagittal MPR images reviewed. All images stored on PACS. The sensitivity for detection of solid visceral lesions is diminished withoutthe use of intravenous contrast. Automated exposure control was used as adose optimization technique for this examination. COMPARISON: CT abdomen and pelvis 08/05/2018 FINDINGS: LOWER CHEST: The lung bases are clear. No effusion. LIVER: Suboptimally evaluated without intravenous contrast. Normallength. GALLBLADDER: No radiodense gallstones. SPLEEN: Suboptimally evaluated without intravenous contrast. Normallength. PANCREAS: Unable to adequately evaluate without intravenous contrast. ADRENALS: No adrenal masses. KIDNEYS/URINARY TRACT: Suboptimally evaluated without intravenouscontrast. No obstructing urolithiasis or hydronephrosis. GI: No bowel obstruction. The appendix is not clearly distinguished from adjacent structures but there are no pericecal inflammatory changes to indicate acute appendicitis. PERITONEUM: No ascites or free air. VASCULATURE: No abdominal aortic aneurysm. MUSCULOSKELETAL: No acute finding. OTHER: 2.8 cm right ovarian cystic lesion. Intrauterine device. IMPRESSION: 1. No obstructing urolithiasis or hydronephrosis. 2. Right ovarian cystic lesion. THIS IS AN ELECTRONICALLY VERIFIED FINAL REPORT 12/09/2018 12:03 PM - Electronically signed by Toño Hawkins M.D. JR: Report ID: [id number] Reading Location: [place] [address] REPORT ELECTRONICALLY SIGNED IN OTHER VENDOR SYSTEM us [facility] CT PROCEDURES Final Resul t documented in this encounter Visit Diagnoses Not on filedocumented in this encounter Care Teams Organ Tuner Relationship Specialty Start Date End Date Shana Easton MD [address] [place] [place] [id number] PCP - General 05/05/18 12/30/20 documented as of this encounter
--- OUTSIDE RECORDS SUMMARY | 2024-03-15 14:56 | XMS_ITS | Encounter Summary ---
Author Organization [facility] Address [address] [place] [address] Care Team Providers Care Inspector Elevators Name Role Phone No, Physician Primary Care Provider [phone] Reason for Visit * Reason Onset Date Comments Medical Question/Miscellaneous 08/13/2022 Encounter Details Date Type Department Care Team (Late st Contact Info) Description 08/13/[address] [facility] Primary Care [address] [place] [address] Rex Lockett, MEME [address] [place] [address] Medical Question/Miscellaneous Social History Tobacco Use Types Packs/Day Years [...] encounter Miscellaneous Notes * Telephone Encounter - Yessica Perry - 08/13/2022 12:22 PM CDT Patient notified that MEME Lockett won't be able to give any orders until she is seen for the first time. * Telephone Encounter - Noah Johnson - 08/13/2022 11:31 AM CDT Medical Question/Miscellaneous Caller???s Concern: Patient states she went to ED for kidney stones, and was advised that ultra sound is needed but patient is . Patient attempted to contact OBGYN who at first agreed to do ultra sound but later declined. Patient was advised to contact primary Provider, however patient is anew patient and has not been seen yet. Patient would like to know what next steps should be. Call ba ck requested. Caller???s Call back #: [phone] Does message need to be routed? Yes-Action Needed documented in this encounter Plan of Treatment Not on file documented as of this encounter Visit Diagnoses Not on filedocumented in this encounter Care Teams Inspector Elevators Relationship Specialty Start Date End Date No, Physician PCP - General 08/06/22 documented as of this encounter
--- OUTSIDE RECORDS SUMMARY | 2024-03-15 14:57 | XMS_ITS | Encounter Summary ---
Author Organization [facility] Healthcare Address [address] [place] [address] Care Team Providers Care Manager Analysis Name Role Phone Shana Easton MD Primary Care Provider [phone] Encounter Details Date Type Department Care Team (Late st Contact Info) Description 08/05/2018 8:27 PM CDT - 08/05/2018 10:37 PM CDT Hospital Encounter [facility] Emergency Department [address] [place] [address] Unknown, Tania Mckay, APPLICATION TESTER [address] [facility] [place] [address] Discharge Disposition: Discharge to home or [...] Sign Reading Time Taken Comments Blood Pressure 113/81 08/05/2018 8:39 PM CDT Pulse 102 08/05/2018 8:39 PM CDT Temperature 37.1 ??C (98.8 ??F) 08/05/2018 8:39 PM CD T Respiratory Rate - - Oxygen Saturation 98% 08/05/2018 8:39 PM CDT Inhaled Oxygen Concentration - - Weight 47.2 kg (104 lb 0.9 oz) 08/05/2018 8:39 P M CDT Height 160 cm (5' 3 ) 08/05/2018 8:39 PM CDT Body Mass Index 18.43 08/05/2018 8:39 PM CDT documented in this encounter Discharge Disposition Disposition Code Departure Means Destination Discharge to home or self care documented in this encounter Plan of Treatment Not on file documented as of this encounter Procedures Procedure Name Priority Date/Time Associated Diagnosis Comments CT ABDOMEN PELVIS WO CONTRAST 08/05/2018 9:17 PM CDT CBC WITH AUTO DIFFERENTIAL Routine 08/05/2018 9:13 PM CDT COMPREHENSIVE METABOLIC PANEL Routine 08/05/2018 9:13 PM CDT URINALYSIS AND REFLEX TO MICROSCOPIC AND CULTURE Routine 08/05/2018 8:55 PM CDT documented in this encounter Results * CT Abdomen Pelvis WO Contrast (08/05/2018 9:17 PM CDT) Anatomical Region Laterality Modality Body N/A Computed Tomogra phy 08/05/2018 9:56 PM CDT Narrative 08/05/2018 10:00 PM CDT Patient Name: DIOGENES CARTER ?Ordering Dr: Tania Luna CNP ?? D.O.B: 2000 ? Exam Date: 08/05/18 ?? 2116 ?? Age: 17 ?Sex: Female ? MR#: [id number] ?? Loc: ? RADIOLOGY REPORT ?? Order #[id number] ?? CT Scan ? CT Abd/Pelvis WO IV Contrast ? Signed ? EXAM DESCRIPTION: ??CT Abd/Pelvis WO IV Contrast ? REASON FOR STUDY: ??Right flank pain with nausea. ? TECHNIQUE: ??CT scan of the abdomen and pelvis performed without intravenous ?? and without oral contrast using helical scanning technique. Reconstructed ?? coronal and sagittal MPR images reviewed. All images stored on PACS. ? Automated exposure control was used as a dose optimization technique for this ?? examination. ? COMPARISON: ??None. ? FINDINGS: ? The sensitivity for detection of visceral lesions is diminished without the ?? use of intravenous contrast. ? LOWER CHEST: Clear. ? LIVER: Unremarkable. ? GALLBLADDER: No radiopaque stones. ? BILE DUCTS: No intrahepatic or extrahepatic ductal dilatation. ? SPLEEN: Normal size. ? PANCREAS: No acute or chronic inflammation. ? ADRENALS: Normal. ? KIDNEYS/URINARY TRACT: No nephrolithiasis, hydronephrosis or perinephric fluid ?? collection. ??No discrete obstructing stone is identified. ??Urinary bladder is ?? unremarkable. ? GI: No mechanical bowel obstruction. ??No focal bowel wall thickening is ?? identified. ? The cecum, terminal ileum and appendix are unremarkable. ? PERITONEUM: Trace amount of free fluid within the pelvis. ??There is no ?? evidence of free air. ? RETROPERITONEUM: No mass or adenopathy. ? REPRODUCTIVE: No significant abnormality. ? VASCULATURE: Aorta is nonaneurysmal. ? MUSCULOSKELETAL: Normal thoracic and lumbar alignment and curvature. ??There is ?? no compression fracture. ??No aggressive osteolytic or blastic lesions are ?? identified. ? OTHER: No other abnormality. ? IMPRESSION: ? 1. ??No acute abnormality is identified within the abdomen or pelvis. ??No ?? findings of obstructive uropathy. ? 2. ??Trace volume of pelvic free fluid. ? THIS IS AN ELECTRONICALLY VERIFIED FINAL REPORT ?? 08/05/2018 10:00 PM - Electronically signed by Randall PrinceO. ?? Randall Muniz D.O. ? : ?? D: ??08/05/2018 10:00 PM ?? T: ??08/05/2018 10:00 PM ? Report ID: [id number] ?? Reading Location: ??[id number] ? REPORT ELECTRONICALLY SIGNED IN OTHER VENDOR SYSTEM ?? Resulting Agency Comment E Procedure Note ElvinRandall styles DO - 08/05/2018 Patient Name: DIOGENES CARTER Dr: Tania Luna CNP, D.O.B: 2000 Exam Date: 08/05/182116 Age: 17 Sex: Female MR#: [id number] Loc: RADIOLOGY REPORT Order #[id number] CT Scan CT Abd/Pelvis WO IV Contrast Signed EXAM DESCRIPTION: CT Abd/Pelvis WO IV Contrast REASON FOR STUDY: Right flank pain with nausea. TECHNIQUE: CT scan of the abdomen and pelvis performed withoutintravenous and without oral contrast using helical scanning technique. Reconstructed coronal and sagittal MPR images reviewed. All images stored on PACS. Automated exposure control was used as a dose optimization technique forthis examination. COMPARISON: None. FINDINGS: The sensitivity for detection of visceral lesions is diminished withoutthe use of intravenous contrast. LOWER CHEST: Clear. LIVER: Unremarkable. GALLBLADDER: No radiopaque stones. BILE DUCTS: No intrahepatic or extrahepatic ductal dilatation. SPLEEN: Normal size. PANCREAS: No acute or chronic inflammation. ADRENALS: Normal. KIDNEYS/URINARY TRACT: No nephrolithiasis, hydronephrosis or perinephricfluid collection. No discrete obstructing stone is identified. Urinarybladder is unremarkable. GI: No mechanical bowel obstruction. No focal bowel wall thickening is identified. The cecum, terminal ileum and appendix are unremarkable. PERITONEUM: Trace amount of free fluid within the pelvis. There is no evidence of free air. RETROPERITONEUM: No mass or adenopathy. REPRODUCTIVE: No significant abnormality. VASCULATURE: Aorta is nonaneurysmal. MUSCULOSKELETAL: Normal thoracic and lumbar alignment and curvature.There is no compression fracture. No aggressive osteolytic or blastic lesions are identified. OTHER: No other abnormality. IMPRESSION: 1. No acute abnormality is identified within the abdomen or pelvis. No findings of obstructive uropathy. 2. Trace volume of pelvic free fluid. THIS IS AN ELECTRONICALLY VERIFIED FINAL REPORT 08/05/2018 10:00 PM - Electronically signed by Randall Muniz D.O. : Report ID: [id number] Reading Location: [place] [address] REPORT ELECTRONICALLY SIGNED IN OTHER VENDOR SYSTEM Tania Luna APPLICATION TESTER IMG CT PROCEDURES Final Resu lt * (ABNORMAL) Comprehensive metabolic panel (08/05/2018 9:13 PM CDT) Sodium 143 135 - 145 mmol/L [facility] Potassium 3.6 3.3 - 5.1 mmol/L [facility] Chloride 105 96 - 108 mmol/L [facility] Carbon Dioxide 25 22 - 32 mmol/L [facility] Anion Gap 13 7 - 16 [facility] Glucose 85 70 - 100 mg/dL [facility] BUN 9 8 - 25 mg/dL [facility] Creatinine 0.5 0.5 - 1.1 mg/dL [facility] Comment: NOTE: Estimated GFR (Cockroft-Gault) will NOT be calculated unless patient Height and Weight were entered. Also, Kidney Disease Stage (GFR) and Estimated GFR (Cockroft-Gault) will NOT be calculated if Creatinine result is <0.2. Kidney Disease Stage >90 mL/MIN [facility] Comment: NOTE; ??The GFR is an estimated [...] failure or on dialysis Est GFR (Cockcroft-G) 135 ml/MIN [facility] Comment: Estimated GFR(Cockroft-Gault)is used to calculate patient medication dosage Calcium 9.6 8.6 - 10.3 mg/dL [facility] Total Protein 7.6 6.4 - 8.3 g/dL [facility] Albumin 5.0 3.5 - 5.0 g/dL [facility] Globulin 2.6 2.3 - 3.5 gm/dL [facility] Albumin/Globulin Ratio 1.9(H) 1.1 - 1.8 [facility] Total Bilirubin 0.4 0.0 - 1.2 mg/dL [facility] AST 11 0 - 32 U/L [facility] ALT 13 0 - 33 U/L [facility] Alkaline Phosphatase 63 35 - 104 U/L [facility] 08/05/2018 9:13 PM CDT 08/05/2018 9:27 PM CDT Narrative Resulting Agency Comment ER Tania Luna APPLICATION TESTER LAB BLOOD ORDERABLES Final R esult [facility] [address] [phone] * (ABNORMAL) CBC with auto differential (08/05/2018 9:13 PM CDT) WBC 7.2 3.8 - 9.9 X10 3/ul [facility] RBC 4.88 3.90 - 5.20 x10 6/ul [facility] Hemoglobin 13.5 11.9 - 15.5 g/dL [facility] Hct 42.5 35.6 - 45.5 % [facility] MCV 87.1 81.3 - 96.4 fl [facility] MCH 27.7 27.1 - 33.3 pg [facility] MCHC 31.8(L) 32.3 - 35.7 g/dl [facility] RDW 12.9 11.1 - 14.9 % [facility] Plt Count 234 150 - 400 x10 3/ul [facility] MPV 10.6 9.1 - 12.3 fl [facility] Neut % 59.1 % [facility] Immature Gran % 0.3 % [facility] Lymph % 31.2 % [facility] E AST - [facility] [place] % 7.8 % [facility] E AST - [employer] Eos % 1.0 % [facility] E AST - [employer] [place] % 0.6 % [facility] NEUTROPHIL ABS # 4.3 1.7 - 6.5 x10 3/ul [facility] Immature Gran # 0.0 0.0 - 0.1 x10 3/ul [facility] Absolute Lymphs (auto) 2.2 0.8 - 3.3 x10 3/ul [facility] Absolute Monos (auto) 0.6 0.2 - 0.8 x10 3/ul [facility] Absolute Eos (auto) 0.1 0.0 - 0.5 x10 3/ul [facility] BASOPHIL ABS # 0.0 0.0 - 0.1 x10 3/ul [facility] Nucleat RBC Rel Count 0.0 #/100WBC [facility] NRBC abs 0.00 0.00 - 0.01 x10 3/ul [facility] Absolute Neutrophils 4,300 200 - 8,000 /ul [facility] 08/05/2018 9:13 PM CDT 08/05/2018 9:27 PM CDT Narrative Resulting Agency Comment ER Tania Luna APPLICATION TESTER LAB BLOOD ORDERABLES Final R esult [address] [phone] * (ABNORMAL) Urinalysis reflex to microscopic and culture (08/05/2018 8:55 PM CDT) Ur Collection Type CLEAN CATCH [facility] Ur Culture Indicated? C S NOT INDICATED [facility] Urine Color YELLOW YELLOW [facility] Urine Clarity CLEAR CLEAR [facility] Urine Glucose (UA) NORMAL NORMAL mg/dL [facility] Urine Bilirubin NEGATIVE NEGATIVE mg/dl [facility] Urine Ketones NEGATIVE NEGATIVE mg/dL [facility] Ur Specific [place] 1.009 1.005 - 1.025 [facility] Urine Blood 0.03(A) NEGATIVE mg/dl [facility] Urine pH 6.0 5.0 - 8.0 [facility] Urine Protein NEGATIVE NEGATIVE mg/dL [facility] Urine Urobilinogen NORMAL NORMAL mg/dL [facility] Urine Nitrite NEGATIVE NEGATIVE [facility] Ur Leukocyte Esterase NEGATIVE NEGATIVE Sammie/ul [facility] Ur Microscopic Review Not Indicated [facility] 08/05/2018 8:55 PM CDT 08/05/2018 9:06 PM CDT Narrative [facility] - 08/05/2018 9:13 PM CDT Indication(s) for ordering ?? Dysuria dg Clean catch Resulting Agency Comment ER us Tania Luna APPLICATION TESTER LAB MICROBIOLOGY - GENERAL O RDERABLES Final Result Performing Organization Address City/State/[facility] Co de Phone Number [address] [phone] documented in this encounter Visit Diagnoses Not on filedocumented in this encounter Care Teams Manager Analysis Relationship Specialty Start Date End Date Shana Easton MD [address] [address] PCP - General 05/05/18 12/30/20 documented as of this encounter
--- OUTSIDE RECORDS SUMMARY | 2024-03-15 14:57 | XMS_ITS | Encounter Summary ---
Author Organization [facility] Healthcare Address [address] [place] [address] Care Team Providers Care Sonar Technician Name Role Phone Shana Easton MD Primary Care Provider [phone] Encounter Details Date Type Department Care Team (Late st Contact Info) Description 10/11/2018 2:19 AM CDT - 10/11/2018 3:55 AM CDT Hospital Encounter [facility] Emergency Department [address] [place] [address] Parmjit Vogt, DO [address] [facility] [place] [address] Unknown, Notinfile Discharge Disposition: Discharge to home [...] Sign Reading Time Taken Comments Blood Pressure 108/66 10/11/2018 2:29 AM CDT Pulse 82 10/11/2018 2:29 AM CDT Temperature 36.7 ??C (98 ??F) 10/11/2018 2:29 AM CDT Respiratory Rate - - Oxygen Saturation 100% 10/11/2018 2:29 AM CDT Inhaled Oxygen Concentration - - Weight 46 kg (101 lb 6.6 oz) 10/11/2018 2:29 AM CDT Height 160 cm (5' 3 ) 10/11/2018 2:29 AM CDT Body Mass Index 17.96 10/11/2018 2:29 AM CDT documented in this encounter Discharge Disposition Disposition Code Departure Means Destination Discharge to home or self care documented in this encounter Plan of Treatment Not on file documented as of this encounter Procedures Procedure Name Priority Date/Time Associated Diagnosis Comments ECG 12-LEAD 10/11/2018 3:08 AM CDT CBC WITH AUTO DIFFERENTIAL Routine 10/11/2018 3:06 AM CDT COMPREHENSIVE METABOLIC PANEL Routine 10/11/2018 3:[address] HEAD WO CONTRAST 10/11/2018 1 2:00 AM CDT documented in this encounter Results * ECG 12 lead (10/11/2018 3:08 AM CDT) Ventricular Rate EKG/Min 69 BPM [facility] Atrial Rate 69 BPM [facility] VA-Interval (MSEC) 182 ms [facility] QRS-Interval (MSEC) 80 ms [facility] QT-Interval (MSEC) 378 ms [facility] QTc 405 ms [facility] P Hayden 53 degrees [facility] R Hayden 76 degrees [facility] T Hayden 31 degrees [facility] Diagnosis Normal sinus rhythm Nonspecific T wave abnormality No previous ECGs available [facility] 10/11/2018 3:08 AM CDT 10/11/2018 6:03 PM CDT Narrative Resulting Agency Comment FATOUMATA us Parmjit Vogt DO ECG ORDERABLES Final Resul t [facility] * (ABNORMAL) Comprehensive metabolic panel (10/11/2018 3:06 AM CDT) Sodium 144 135 - 145 mmol/L [facility] Potassium 3.5 3.3 - 5.1 mmol/L [facility] Chloride 106 96 - 108 mmol/L [facility] Carbon Dioxide 25 22 - 32 mmol/L [facility] Anion Gap 13 7 - 16 [facility] Glucose 91 70 - 100 mg/dL [facility] BUN 9 8 - 25 mg/dL [facility] Creatinine 0.4(L) 0.5 - 1.1 mg/dL [facility] Comment: NOTE: Estimated GFR (Cockroft-Gault) will NOT be calculated unless patient Height and Weight were entered. Also, Kidney Disease Stage (GFR) and Estimated GFR (Cockroft-Gault) will NOT be calculated if Creatinine result is <0.2. Kidney Disease Stage >90 mL/MIN [facility] Comment: NOTE; ??The GFR is [...] failure or on dialysis Est GFR (Cockcroft-G) 163 ml/MIN [facility] Comment: Estimated GFR(Cockroft-Gault)is used to calculate patient medication dosage Calcium 9.5 8.6 - 10.3 mg/dL [facility] Total Protein 7.8 6.4 - 8.3 g/dL [facility] Albumin 5.0 3.5 - 5.0 g/dL [facility] Globulin 2.8 2.3 - 3.5 gm/dL [facility] Albumin/Globulin Ratio 1.8 1.1 - 1.8 [facility] Total Bilirubin 0.3 0.0 - 1.2 mg/dL [facility] AST 14 0 - 32 U/L [facility] ALT 14 0 - 33 U/L [facility] Alkaline Phosphatase 83 35 - 104 U/L [facility] 10/11/2018 3:06 AM CDT 10/11/2018 3:14 AM CDT Narrative Resulting Agency Comment ER us Parmjit Vogt DO LAB BLOOD ORDERABLES [place] [address], [facility] [phone] * CBC with auto differential (10/11/2018 3:06 AM CDT) WBC 8.4 3.8 - 9.9 X10 3/ul [facility] RBC 4.75 3.90 - 5.20 x10 6/ul [facility] Hemoglobin 13.3 11.9 - 15.5 g/dL [facility] Hct 40.6 35.6 - 45.5 % [facility] MCV 85.5 81.3 - 96.4 fl [facility] MCH 28.0 27.1 - 33.3 pg [facility] MCHC 32.8 32.3 - 35.7 g/dl [facility] RDW 12.4 11.1 - 14.9 % [facility] Plt Count 255 150 - 400 x10 3/ul [facility] MPV 10.7 9.1 - 12.3 fl [facility] Neut % 52.9 % [facility] AST - [employer] Immature Gran % 0.2 % [facility] Lymph % 38.2 % [facility] E AST - [facility] [place] % 6.8 % [facility] AST - [facility] Eos % 1.4 % [facility] AST - [employer] AUTO BASO % 0.5 % [facility] NEUTROPHIL ABS # 4.5 1.7 - 6.5 x10 3/ul [facility] Immature Gran # 0.0 0.0 - 0.1 x10 3/ul [facility] Absolute Lymphs (auto) 3.2 0.8 - 3.3 x10 3/ul [facility] Absolute Monos (auto) 0.6 0.2 - 0.8 x10 3/ul [facility] Absolute Eos (auto) 0.1 0.0 - 0.5 x10 3/ul [facility] BASOPHIL ABS # 0.0 0.0 - 0.1 x10 3/ul [facility] Nucleat RBC Rel Count 0.0 #/100WBC [facility] NRBC abs 0.00 0.00 - 0.01 x10 3/ul [facility] Absolute Neutrophils 4,500 200 - 8,000 /ul [facility] 10/11/2018 3:06 AM CDT 10/11/2018 3:14 AM CDT Narrative Resulting Agency Comment ER Parmjit Vogt DO LAB BLOOD ORDERABLES Final Result Performing Organization Address City/State/[facility] Co de Phone Number [address] [phone] * CT Head WO Contrast (10/11/2018 12:00 AM CDT) Anatomical Region Laterality Modality Head and Neck N/A Computed Tomogra phy 10/11/2018 3:28 AM CDT Narrative 10/11/2018 3:29 AM CDT Patient Name: DIOGENES CARTER ?Ordering Dr: Parmjit Vogt DO ?? D.O.B: 2000 ? Exam Date: 07/20/19 ?? 0000 ?? Age: 18 ?Sex: Female ? MR#: [id number] ?? Loc: ? RADIOLOGY REPORT ?? Order #[id number] ?? CT Scan ? CT Head WO IV Contrast ? Signed ? EXAM DESCRIPTION: ??CT Head WO IV Contrast ? REASON FOR STUDY: ??loss of vision, left side numbness and weakness ? TECHNIQUE: ??Axial images acquired through the brain without intravenous ?? contrast. ??Images stored on PACS. ?? Automated exposure control was used as a ?? dose optimization technique for this examination. ? COMPARISON: ??None ? FINDINGS: ?BRAIN: No mass, hemorrhage, or recent infarct. Normal white matter. Volume ?? within normal limits for age. ? VASCULAR: No dense vessel or obvious aneurysm. ? EXTRA-AXIAL SPACES: No mass or fluid collection. ? ORBITS/GLOBES: Unremarkable. ? SOFT TISSUES: Unremarkable. ? BONES/SINUSES: No fracture or lesion. Paranasal sinuses and other skullbase ?? airspaces are clear. ? IMPRESSION: ??No acute abnormality identified. ? THIS IS AN ELECTRONICALLY VERIFIED FINAL REPORT ?? 10/11/2018 3:29 AM - Electronically signed by Ronaldo Cook M.D. ?? Ronaldo Cook M.D. ? AR: AR ?? D: ??10/11/2018 3:29 AM ?? T: ??10/11/2018 3:29 AM ? Report ID: [id number] ?? Reading Location: ??[id number] ? REPORT ELECTRONICALLY SIGNED IN OTHER VENDOR SYSTEM ?? Resulting Agency Comment E Procedure Note Ronaldo Cook MD - 10/11/2018 Patient Name: DIOGENES CARTER Dr: Parmjit Vogt DO D.O.B: 2000 Exam Date: 10/11/18 0000 Age: 18 Sex: Female MR#: [id number] Loc: RADIOLOGY REPORT Order #[id number] CT Scan CT Head WO IV Contrast Signed EXAM DESCRIPTION: CT Head WO IV Contrast REASON FOR STUDY: loss of vision, left side numbness and weakness TECHNIQUE: Axial images acquired through the brain without intravenous contrast. Images stored on PACS. Automated exposure control was usedas a dose optimization technique for this examination. COMPARISON: None FINDINGS: BRAIN: No mass, hemorrhage, or recent infarct. Normal white matter.Volume within normal limits for age. VASCULAR: No dense vessel or obvious aneurysm. EXTRA-AXIAL SPACES: No mass or fluid collection. ORBITS/GLOBES: Unremarkable. SOFT TISSUES: Unremarkable. BONES/SINUSES: No fracture or lesion. Paranasal sinuses and otherskullbase airspaces are clear. IMPRESSION: No acute abnormality identified. THIS IS AN ELECTRONICALLY VERIFIED FINAL REPORT 10/11/2018 3:29 AM - Electronically signed by Ronaldo Cook M.D. AR: NAVIN Report ID: [id number] Reading Location: [id number] REPORT ELECTRONICALLY SIGNED IN OTHER VENDOR SYSTEM Parmjit Vogt DO IMG CT PROCEDURES Final Res ult documented in this encounter Visit Diagnoses Not on filedocumented in this encounter Care Teams Sonar Technician Relationship Specialty Start Date End Date Shana Easton MD [address] [address] PCP - General 05/05/18 12/30/20 documented as of this encounter
--- OUTSIDE RECORDS SUMMARY | 2024-03-15 14:58 | XMS_ITS | Encounter Summary ---
Author Organization [facility] Healthcare Address [address] [place] [address] Care Team Providers Care Botany Professor Name Role Phone Unavailable Primary Care Provider Unavailabl e Encounter Details Date Type Department Care Team (Late st Contact Info) Description 02/25/2016 5:05 PM ORTHOTIC FINISH GRINDING TECHNICIAN - 02/25/2016 9:00 PM ORTHOTIC FINISH GRINDING TECHNICIAN Hospital Encounter [facility] Asia Dewey MD [address] [place] [address] Other specified diseases and conditions complicating , childbirth and the puerperium; 24 weeks gestation of ; Dorsalgia Social History Tobacco Use Types Packs/Day Years Used Date Smoking Tobacco: Never Assessed Comments Unknown Sex and Gender Information Value Date Recorded Sex Assigned at Not on file Legal Sex Female 12:21 PM CDT Gender Identity Not on file Sexual Orientation Not on file documented as of this encounter Last Filed Vital Signs Vital Sign Reading Time Taken Comments Blood Pressure 117/72 02/25/2016 5:30 PM ORTHOTIC FINISH GRINDING TECHNICIAN Pulse 95 02/25/2016 5:30 PM ORTHOTIC FINISH GRINDING TECHNICIAN Temperature 36.7 ??C (98.1 ??F) 02/25/2016 5:30 PM CS T Respiratory Rate - - Oxygen Saturation - - Inhaled Oxygen Concentration - - Weight 46.7 kg (103 lb) 02/25/2016 5:30 PM ORTHOTIC FINISH GRINDING TECHNICIAN Height 160 cm (5' 3 ) 02/25/2016 5:30 PM ORTHOTIC FINISH GRINDING TECHNICIAN Body Mass Index 18.25 02/25/2016 5:30 PM ORTHOTIC FINISH GRINDING TECHNICIAN Body Mass Index Percentile 12.70% 02/25/2016 5:3 0 PM ORTHOTIC FINISH GRINDING TECHNICIAN Growth Chart: [facility] (Girls, 2- 20 Years) documented in this encounter Plan of Treatment Not on file documented as of this encounter Procedures Procedure Name Priority Date/Time Associated Diagnosis Comments UA WITH CULTURE REFLEX Routine 02/25/2016 5:05 PM ORTHOTIC FINISH GRINDING TECHNICIAN DRUGS OF ABUSE SCREEN, URINE WITHOUT CONFIRMATION Routine 02/25/2016 5:05 PM ORTHOTIC FINISH GRINDING TECHNICIAN documented in this encounter Results * Drug Screen, Urine (02/25/2016 5:05 PM ORTHOTIC FINISH GRINDING TECHNICIAN) Ur Amphetamine Screen NEGATIVE NEGATIVE Comment: Cutoff Limit: ??1000 ng/mL ??Detects MDMA, MDA, d-Amphetamine, d-Methamphetamine, ?MBDB-HCl, MDEA and BDB-HCl Note: ??Positive results from this drug screen are unconfirmed. ??Unconfirmed screening results should not be used for non-medical purposes. Ur Barbiturates Screen NEGATIVE NEGATIVE Comment: Cutoff limit: ??200 ng/mL ??Detects Secobarbitol, Cyclopentobarbital, Aprobarbital, ?Butalbital, Allobarbital, Butabarbital, ?Pentobarbital, Amobarbital and Phenobarbital U Benzodiazepines Scrn NEGATIVE NEGATIVE 02/25/2016 7:01 PM [facility] H[facility] RES[facility] Comment:Cutoff limit: 300 ng /mL U Cannabinoids Screen NEGATIVE NEGATIVE Comment:Cutoff Limit: 50 ng/ mL U Cocaine Metab Screen NEGATIVE NEGATIVE Comment:Cutoff limit: 300 ng /mL Urine Opiates Screen NEGATIVE NEGATIVE Comment: Cutoff Limit: ??300 ng/mL Detects Morphine, Codeine, Ethyl Morphine, ?Diacetylmorphine, 6-Acetylmorphine, Dihydrocodeine, ?[id number] and Hydrocodone Ur Oxycodone Screen NEGATIVE NEGATIVE 02/24 7:01 PM [facility] HISTORICAL RESULTS Comment:Cutoff Limit: 100 ng /mL Urine Creatinine/MONICA 8.0 mg/dL Comment:If Creatinine is < 4 0 mg/dL, recollection is suggested. 02/25/2016 5:05 PM ORTHOTIC FINISH GRINDING TECHNICIAN 02/25/2016 6:19 PM [facility] Narrative [facility] HISTORICAL RESULTS - 02/25/2016 7:01 PM ORTHOTIC FINISH GRINDING TECHNICIAN Collected By sr Asia Dewey MD LAB URINE ORDERABLES Estefany l Result [facility] HISTORICAL RESULTS * (ABNORMAL) UA with Culture Reflex (02/25/2016 5:05 PM ORTHOTIC FINISH GRINDING TECHNICIAN) Ur Collection Type CLEAN CATCH Ur Culture Indicated? C&S NOT INDICATED Urine Color COLORLESS YELLOW Urine Clarity CLEAR CLEAR Urine Glucose (UA) NORMAL NORMAL mg/dL Urine Bilirubin NEGATIVE NEGATIVE mg/dl Urine Ketones NEGATIVE NEGATIVE mg/dL Ur Specific [place] 1.001(L) 1.005 - 1.025 Urine Blood NEGATIVE NEGATIVE mg/dl Urine pH 7.0 5.0 - 8.0 02/25/2016 7:10 PM ORTHOTIC FINISH GRINDING TECHNICIAN [facility] HISTORICAL RESULTS Urine Protein NEGATIVE NEGATIVE mg/dL 02/25/2016 7:10 PM ORTHOTIC FINISH GRINDING TECHNICIAN [facility] HISTORICAL RESULTS Urine Urobilinogen NORMAL NORMAL mg/dL 02/25/2016 7:10 PM ORTHOTIC FINISH GRINDING TECHNICIAN [facility] HISTORICAL RESULTS Urine Nitrite NEGATIVE NEGATIVE 02/25/2016 7:10 PM ORTHOTIC FINISH GRINDING TECHNICIAN [facility] HISTORICAL RESULTS Ur Leukocyte Esterase NEGATIVE NEGATIVE Sammie/ul Ur Microscopic Review Not Indicated 02/25/2016 5:05 PM ORTHOTIC FINISH GRINDING TECHNICIAN 02/25/2016 6:19 PM ORTHOTIC FINISH GRINDING TECHNICIAN Asia Dewey MD LAB URINE ORDERABLES Estefany césar Result [facility] HISTORICAL RESULTS documented in this encounter Visit Diagnoses Diagnosis Other specified diseases and conditions complicating , childbirth and the puerperium 24 weeks gestation of Dorsalgia Pain in thoracic spine documented in this encounter
--- OUTSIDE RECORDS SUMMARY | 2024-03-15 14:58 | XMS_ITS | Encounter Summary ---
Author Organization [facility] Healthcare Address [address] [place] [address] Care Team Providers Care Supervisor Graphite Name Role Phone Unavailable Primary Care Provider Unavailabl e Encounter Details Date Type Department Care Team (Latest Contact Info) Description 05/23/2016 1:07 PM [facility] - 05/23/2016 4:25 PM [facility] [address] [place] [address] False labor before 37 completed weeks of gestation; 36 weeks gestation of Social History Tobacco Use Types Packs/Day Years Used Date Smoking Tobacco: Never Assessed Comments Unknown Sex and Gender Information Value Date Recorded Sex Assigned at Not on file Legal Sex Female 12:21 PM CDT Gender Identity Not on file Sexual Orientation Not on file documented as of this encounter Last Filed Vital Signs Vital Sign Reading Time Taken Comments Blood Pressure 119/77 05/23/2016 1:25 PM [facility] Pulse 110 05/23/2016 1:25 PM [facility] Temperature 36.2 ??C (97.1 ??F) 05/23/2016 1:25 PM CS T Respiratory Rate - - Oxygen Saturation 99% 05/23/2016 1:25 PM [facility] Inhaled Oxygen Concentration - - Weight 53.5 kg (118 lb) 05/23/2016 1:25 PM [facility] Height 160 cm (5' 3 ) 05/23/2016 1:25 PM [facility] Body Mass Index 20.9 05/23/2016 1:25 PM [facility] Body Mass Index Percentile 46.90% 05/23/2016 1: 25 PM [facility] Growth Chart: [facility] (Girls, 2- 20 Years) documented in this encounter Plan of Treatment Not on file documented as of this encounter Procedures Procedure Name Priority Date/Time Associated Diagnosis Comments CBC WITH AUTO DIFFERENTIAL Routine 05/23/2016 2:16 PM [facility] URIC ACID Routine 05/23/2016 2:16 PM [facility] COMPREHENSIVE METABOLIC PANEL Routine 05/23/2016 2:16 PM [facility] PROTEIN / CREATININE RATIO, URINE, RANDOM Routine 05/23/2016 2:10 PM [facility] documented in this encounter Results * Uric acid (05/23/2016 2:16 PM [facility]) Uric Acid 3.2 2.4 - 5.7 mg/dL 05/23/2016 2:45 PM [facility] 05/23/2016 2:16 PM [facility] 05/23/2016 2:21 PM [facility] us Zachery Sullivan MD LAB BLOOD ORDERABLES Fin al Result [facility] HISTORICAL RESULTS * (ABNORMAL) Comprehensive metabolic panel (05/23/2016 2:16 PM [facility]) Sodium 137 135 - 145 mmol/L Potassium 3.9 3.3 - 5.1 mmol/L Chloride 100 96 - 108 mmol/L 05/23/2016 2:45 PM [facility] RESCUE [facility] HISTORICAL RESULTS Carbon Dioxide 23 22 - 32 mmol/L 05/23/2016 2:45 PM [facility] Anion Gap 14 7 - 16 05/23/2016 2:45 PM [facility] RESCUE [facility] HISTORICAL RESULTS Glucose 74 70 - 100 mg/dL BUN 3(L) 5 - 18 mg/dL Creatinine 0.6 0.5 - 1.1 mg/dL Comment: NOTE: Estimated GFR (Cockroft-Gault) will NOT be calculated unless patient Height and Weight were entered. Also, Kidney Disease Stage (GFR) and Estimated GFR (Cockroft-Gault) will NOT be calculated if Creatinine result is <0.2. Kidney Disease Stage TNP mL/MIN Est GFR (Cockcroft-G) TNP ml/MIN Calcium 8.7 8.4 - 10.2 mg/dL Total Protein 6.1(L) 6.4 - 8.3 g/dL Albumin 3.5 3.2 - 4.5 g/dL Globulin 2.6 2.3 - 3.5 gm/dL Albumin/Globulin Ratio 1.3 1.1 - 1.8 Total Bilirubin 0.3 0.0 - 1.2 mg/dL AST 14 0 - 32 U/L ALT 13 0 - 33 U/L Alkaline Phosphatase 146 0 - 186 U/L 05/23/2016 2:16 PM [facility] 05/23/2016 2:21 PM [facility] RESCUE us Zachery Sullivan MD LAB BLOOD ORDERABLES Fin al Result [facility] HISTORICAL RESULTS * (ABNORMAL) CBC with auto differential (05/23/2016 2:16 PM [facility] RESCUE) [facility] WBC 10.1 4.6 - 10.2 x10 3/ul 05/23/2016 2:24 PM [facility] RECOVERY COMBAT RESCUE [facility] HISTORICAL RESULTS RBC 4.62 3.76 - 4.80 x10 6/ul 05/23/2016 2:24 PM [facility] REC[facility]ERY COMBAT RESCUE [facility] HISTORICAL RESULTS Hemoglobin 12.3 11.0 - 15.0 g/dl 05/23/2016 2:24 PM [facility] REC[facility]ERY COMBAT RESCUE [facility] HISTORICAL RESULTS Hct 39.1 33.0 - 43.0 % MCV 84.6 80.0 - 97.0 fl 05/23/2016 2:24 PM [facility] REC[facility]ERY COMBAT RESCUE [facility] HISTORICAL RESULTS MCH 26.6(L) 27.0 - 31.2 pg MCHC 31.5(L) 31.8 - 35.4 g/dl RDW 16.5(H) 11.6 - 14.8 % Plt Count 182 124 - 400 x10 3/ul MPV 11.4(H) 7.4 - 10.4 fl Neut % 72.3 37.0 - 85.0 % Immature Gran % 0.7 0.0 - 3.0 % Lymph % 16.9 5.0 - 45.0 % [place] % 9.1 3.0 - 15.0 % Eos % 0.7 0.0 - 7.0 % Baso % 0.3 0.0 - 2.0 % Absolute Neuts (auto) 7.3 1.7 - 8.7 x10 3/ul 05/23/2016 2:24 PM [facility] RESCUE [facility] HISTORICAL RESULTS Immature Gran # 0.1 0.0 - 0.3 x10 3/ul 05/23/2016 2:24 PM [facility] RESCUE [facility] HISTORICAL RESULTS Absolute Lymphs (auto) 1.7 0.2 - 4.6 x10 3/ul 05/23/2016 2:24 PM [facility] REC[facility] COMB[facility] RESCUE [facility] HISTORICAL RESULTS Absolute Monos (auto) 0.9 0.1 - 1.5 x10 3/ul 05/23/2016 2:24 PM [facility] REC[facility] COMBAT RESCUE [facility] HISTORICAL RESULTS Absolute Eos (auto) 0.1 0.0 - 0.7 x10 3/ul Absolute Basos (auto) 0.0 0.0 - 0.2 x10 3/ul 05/23/2016 2:16 PM [facility] RESCUE 05/23/2016 2:21 PM [facility]UE Zachery Sullivan MD LAB BLOOD ORDERABLES Fin al Result [facility] HISTORICAL RESULTS * Protein / creatinine ratio, urine, random (05/23/2016 2:10 PM [facility]) Ur Random Creatinine 43.5 mg/dL Comment: Reference Range First morning urine: Females 28 - 217 mg/dLRandom Specimen: ??No reference ranges U Random Total Protein 7 0 - 12 mg/dL Protein/Creatin in Ratio 0.16 Comment:Random Specimen: No reference ranges 05/23/2016 2:10 PM [facility]UE 05/23/2016 2:39 PM [facility] RESCUE Zachery Sullivan MD LAB URINE ORDERABLES Fin al Result [facility] HISTORICAL RESULTS documented in this encounter Visit Diagnoses Diagnosis False labor before 37 completed weeks of gestation 36 weeks gestation of documented in this encounter
--- OUTSIDE RECORDS SUMMARY | 2024-03-15 14:58 | XMS_ITS | Encounter Summary ---
Author Organization [facility] Healthcare Address [address] [place] [address] Care Team Providers Care Type Copy Examiner Name Role Phone Unavailable Primary Care Provider Unavailabl e Encounter Details Date Type Department Care Team (Latest Contact Info) Description 07/07/2017 11:56 AM CDT - 07/07/2017 1:33 PM CDT [facility] [address] [place] [address] Nipple discharge; Mastodynia; Benign neoplasm of right breast; Uncomplicated asthma; Allergy status to other drugs, medicaments and biological substances status; Other longterm (current) drug therapy Social History Tobacco Use Types Packs/Day Years Used Date Smoking Tobacco: Never Assessed Comments Unknown Sex and Gender Information Value Date Recorded Sex Assigned at Not on file Legal Sex Female 12:21 PM CDT Gender Identity Not on file Sexual Orientation Not on file documented as of this encounter Last Filed Vital Signs Vital Sign Reading Time Taken Comments Blood Pressure 129/80 07/07/2017 11:57 AM CDT Pulse 91 07/07/2017 11:57 AM CDT Temperature 36.4 ??C (97.6 ??F) 07/07/2017 1 1:57 AM CDT Respiratory Rate - - Oxygen Saturation 100% 07/07/2017 11: 57 AM CDT Inhaled Oxygen Concentration - - Weight 48 kg (105 lb 13.2 oz) 8 11:57 AM CDT Height 160 cm (5' 3 ) 07/07/2017 11:57 AM CDT Body Mass Index 18.75 07/07/2017 11:57 AM CDT Body Mass Index Percentile 13.94% 07/07 11:57 AM CDT Growth Chart: [facility] (Girls, 2- 20 Years) documented in this encounter Plan of Treatment Not on file documented as of this encounter Visit Diagnoses Diagnosis Nipple discharge Other sign and symptom in breast Mastodynia Benign neoplasm of right breast Uncomplicated asthma Allergy status to other drugs, medicaments and biological substances status Other rn long term care (current) drug therapy documented in this encounter
--- OUTSIDE RECORDS SUMMARY | 2024-03-15 14:58 | XMS_ITS | Encounter Summary ---
Author Organization [facility] Healthcare Address [address] [place] [address] Care Team Providers Care Thermal Intelligence Analyst Name Role Phone Unavailable Primary Care Provider Unavailabl e Encounter Details Date Type Department Care Team (Late st Contact Info) Description 10/10/2017 8:46 PM CDT - 10/12/2017 3:27 PM CDT Hospital Encounter [facility], Jennifer Mendez MD [address] [place] [address] Term delivery with labor, third trimester, fetus 1; Maternal care for other known or suspected poor growth, unspecified trimester, fetus 1; Single live ; 35 weeks gestation of Social History Tobacco Use [...] Sign Reading Time Taken Comments Blood Pressure 115/75 10/10/2017 9:59 PM CDT Pulse 62 10/10/2017 9:59 PM CDT Temperature 36.9 ??C (98.4 ??F) 10/10/2017 9:59 PM CD T Respiratory Rate - - Oxygen Saturation 98% 10/10/2017 9:59 PM CDT Inhaled Oxygen Concentration - - Weight 53.1 kg (117 lb) 10/10/2017 9:59 PM CDT Height 160 cm (5' 3 ) 10/10/2017 9:59 PM CDT Body Mass Index 20.73 10/10/2017 9:59 PM CDT documented in this encounter Plan of Treatment Not on file documented as of this encounter Procedures Procedure Name Priority Date/Time Associated Diagnosis Comments SCAN - PATHOLOGY 10/14/2017 12:0 0 AM CDT HEMOGLOBIN AND HEMATOCRIT Routine 10/11/2017 7:17 AM CDT DRUGS OF ABUSE SCREEN, URINE WITHOUT CONFIRMATION Routine 10/11/2017 3:00 AM CDT BLOOD GAS, ARTERIAL, CORD Routine 10/10/2017 10:11 PM CDT BLOOD GAS, VENOUS, CORD Routine 10/10/2017 10:10 PM CDT CBC WITH AUTO DIFFERENTIAL Routine 10/10/2017 8:58 PM CDT RPR Routine 10/10/2017 8:58 PM CDT PROCEDURE - RESULT 10/10/2017 12 :00 AM CDT documented in this encounter Results * SCAN - PATHOLOGY (10/14/2017 12:00 AM CDT) Narrative 10/14/2017 12:00 AM CDT Ordered by an unspecified provider. Historical Provider Final Res ult * (ABNORMAL) Hemoglobin and hematocrit (10/11/2017 7:17 AM CDT) Hemoglobin 10.2(L) 11.0 - 15.0 g/dL Hct 32.2(L) 33.0 - 43.0 % 10/11/2017 7:17 AM CDT 10/11/2017 7:46 AM CDT Jennifer Villatoro MD LAB BLOOD ORDERABLES Fi nal Result [facility] HISTORICAL RESULTS * Drug Screen, Urine (10/11/2017 3:00 AM [facility]) Ur Amphetamine Screen NEGATIVE NEGATIVE Comment: Cutoff [...] and Phenobarbital U Benzodiazepines Scrn NEGATIVE NEGATIVE Comment:Cutoff limit: 300 ng /mL U Cannabinoids Screen NEGATIVE NEGATIVE Comment:Cutoff Limit: 50 ng/ mL U Cocaine Metab Screen NEGATIVE NEGATIVE Comment:Cutoff limit: 300 ng /mL Urine Opiates Screen NEGATIVE NEGATIVE Comment: Cutoff Limit: ??300 ng/mL Detects Morphine, Codeine, Ethyl Morphine, ?Diacetylmorphine, 6-Acetylmorphine, Dihydrocodeine, ?[id number] and Hydrocodone Ur Oxycodone Screen NEGATIVE NEGATIVE 10/11 4:29 AM [facility] HISTORICAL RESULTS Comment:Cutoff Limit: 100 ng /mL Urine Creatinine/MONICA 9.8 mg/dL Comment:If Creatinine is < 4 0 mg/dL, recollection is suggested. 10/11/2017 3:00 AM CDT 10/11/2017 4:29 AM CDT Jennifer Villatoro MD LAB URINE ORDERABLES Fi nal Result Performing Organization Address [facility] de Phone Number [facility] HISTORICAL RESULTS * (ABNORMAL) Blood gas, arterial, cord (10/10/2017 10:11 PM CDT) Cord ABG pH 7.395(H) 7.200 - 7.340 Cord ABG pCO2 37.6(L) 39.2 - 61.4 mmHg Cord ABG pO2 37.3(H) 9 - 19 mmHg Cord ABG HCO3 22.5 18.4 - 25.6 mmol/L Cord ABG Base Excess -1.5 -5.5 - 0.1 mmol/L Cord ABG O2 Sat 80.4(H) 47 - 67 % Dry Cell Assembly Supervisor ID AEM 10/10/2017 10:1 1 PM CDT 10/10/2017 10:22 PM CDT Jennifer Villatoro MD LAB BLOOD ORDERABLES Fi nal Result Performing Organization Address [facility]/ZIP Co de Phone Number [facility] HISTORICAL RESULTS * (ABNORMAL) Blood gas, venous, cord (10/10/2017 10:10 PM CDT) Pathologist [facility] Cord VBG pH 7.395 7.280 - 7.400 Cord VBG pCO2 37.6 32.8 - 48.6 mmHg Cord VBG pO2 37.7(H) 23 - 33 mmHg Cord VBG HCO3 22.6 18.9 - 23.9 mmol/L Cord VBG Base Excess -1.4 -4.4 - -0.4 mmol/L Cord VBG O2 Sat 80.5 72 - 92 % Dry Cell Assembly Supervisor ID AEM 10/10/2017 10:1 0 PM CDT 10/10/2017 10:24 PM CDT Jennifer Villatoro MD LAB BLOOD ORDERABLES Fi nal Result [facility] HISTORICAL RESULTS * RPR, serum (10/10/2017 8:58 PM CDT) [facility] Treponemal IgG NONREACTIVE NONREACTIVE 10/11/19 18 11:33 PM T [facility] HISTORICAL RESULTS Comment: [employer]IA Centaur immunoassay to determine antibodies to Treponema pallidum. 10/10/2017 8:58 PM CDT 10/10/2017 9:02 PM CDT Jennifer Villatoro MD LAB MICROBIOLOGY - GENE RAL ORDERABLES Final Result [facility] HISTORICAL RESULTS * (ABNORMAL) CBC with auto differential (10/10/2017 8:58 PM CDT) WBC 15.6(H) 3.5 - 10.5 x10 3/ul RBC 4.37 3.76 - 4.80 x10 6/ul Hemoglobin 10.7(L) 11.0 - 15.0 g/dL Hct 34.4 33.0 - 43.0 % MCV 78.7(L) 80.0 - 97.0 fl MCH 24.5(L) 27.0 - 31.2 pg MCHC 31.1(L) 31.8 - 35.4 g/dl RDW 13.6 11.6 - 14.8 % Plt Count 167 150 - 450 X10 3/ul MPV 11.5(H) 7.4 - 10.4 fl Neut % 84.6 37.0 - 85.0 % Immature Gran % 1.0 0.0 - 3.0 % Lymph % 9.0 5.0 - 45.0 % [place] % 5.1 3.0 - 15.0 % Eos % 0.1 0.0 - 7.0 % Baso % 0.2 0.0 - 2.0 % Absolute Neuts (auto) 13.2(H) 1.7 - 8.7 x10 3/ul Immature Gran # 0.2 0.0 - 0.3 x10 3/ul Absolute Lymphs (auto) 1.4 0.2 - 4.6 x10 3/ul Absolute Monos (auto) 0.8 0.1 - 1.5 x10 3/ul Absolute Eos (auto) 0.0 0.0 - 0.7 x10 3/ul Absolute Basos (auto) 0.0 0.0 - 0.2 x10 3/ul Nucleat RBC Rel Count 0.0 0 - 3 #/100WBC Absolute Nucleated RBC 0.00 x10 3/ul Absolute Neutrophils 08956(H) 200 - 8000 /ul 10/10/2017 8:58 PM CDT 10/10/2017 9:02 PM CDT Jennifer Villatoro MD LAB BLOOD ORDERABLES Fi nal Result [facility] HISTORICAL RESULTS * PROCEDURE - RESULT (10/10/2017 12:00 AM CDT) Narrative 10/10/2017 12:00 AM CDT Ordered by an unspecified provider. Historical Provider Final Res ult documented in this encounter Visit Diagnoses Diagnosis Term delivery with labor, third trimester, fetus 1 Maternal care for other known or suspected poor growth, unspecified trimester, fetus 1 Single live 35 weeks gestation of documented in this encounter
--- OUTSIDE RECORDS SUMMARY | 2024-03-15 14:58 | XMS_ITS | Encounter Summary ---
Author Organization [facility] Healthcare Address [address] [place] [address] Care Team Providers Care Principal Technical Specialist Name Role Phone Unavailable Primary Care Provider Unavailabl e Encounter Details Date Type Department Care Team (Latest Contact Info) Description 05/04/2016 3:51 PM SENIOR BUSINESS INTELLIGENCE ANALYST - 05/04/2016 6:11 PM SENIOR BUSINESS INTELLIGENCE ANALYST Hospital Encounter [facility] No Martinez, DO [address] [address] Other specified diseases and conditions complicating , childbirth and the puerperium; 34 weeks gestation of Social History Tobacco Use [...] Sign Reading Time Taken Comments Blood Pressure 117/70 05/04/2016 4:53 PM SENIOR BUSINESS INTELLIGENCE ANALYST Pulse 106 05/04/2016 4:53 PM SENIOR BUSINESS INTELLIGENCE ANALYST Temperature 36.5 ??C (97.7 ??F) 05/04/2016 4:53 PM CS T Respiratory Rate - - Oxygen Saturation - - Inhaled Oxygen Concentration - - Weight 0.113 kg (4 oz) 05/04/2016 4:53 PM SENIOR BUSINESS INTELLIGENCE ANALYST Height 160 cm (5' 3 ) 05/04/2016 4:53 PM SENIOR BUSINESS INTELLIGENCE ANALYST Body Mass Index 0.04 05/04/2016 4:53 PM SENIOR BUSINESS INTELLIGENCE ANALYST Body Mass Index Percentile 0.00% 05/04/2016 4:5 3 PM SENIOR BUSINESS INTELLIGENCE ANALYST Growth Chart: [facility] [place]NOTE 2] (Girls, 2- 20 Years) documented in this encounter Plan of Treatment Not on file documented as of this encounter Procedures Procedure Name Priority Date/Time Associated Diagnosis Comments URINALYSIS AND REFLEX TO MICROSCOPIC AND CULTURE Routine 05/04/2016 4:15 PM SENIOR BUSINESS INTELLIGENCE ANALYST documented in this encounter Results * Urinalysis reflex to microscopic and culture (05/04/2016 4:15 PM SENIOR BUSINESS INTELLIGENCE ANALYST) Ur Collection Type CLEAN CATCH 05/04/2016 5:57 PM [facility] [employer] HISTORICAL RESULTS Ur Culture Indicated? C&S NOT INDICATED 05/04/2016 5:54 PM [facility] [employer] HISTORICAL RESULTS Urine Color YELLOW YELLOW 05/04/2016 5:54 PM [facility] [employer] HISTORICAL RESULTS Urine Clarity HAZY CLEAR 05/04/2016 5:54 PM [facility] [employer] HISTORICAL RESULTS Urine Glucose (UA) NORMAL NORMAL mg/dL 05/04/2016 5:54 PM [facility] [employer] HISTORICAL RESULTS Urine Bilirubin NEGATIVE NEGATIVE mg/dl 05/04/2016 5:54 PM [facility] [employer] HISTORICAL RESULTS Urine Ketones NEGATIVE NEGATIVE mg/dL 05/04/2016 5:54 PM [facility] [employer] HISTORICAL RESULTS Ur Specific [place] 1.006 1.005 - 1.025 05/04/2016 5:54 PM [facility] [employer] HISTORICAL RESULTS Urine Blood NEGATIVE NEGATIVE mg/dl 05/04/2016 5:54 PM [facility] [employer] HISTORICAL RESULTS Urine pH 8.0 5.0 - 8.0 05/04/2016 5:54 PM [facility] [employer] HISTORICAL RESULTS Urine Protein NEGATIVE NEGATIVE mg/dL 05/04/2016 5:54 PM [facility] [employer] HISTORICAL RESULTS Urine Urobilinogen NORMAL NORMAL mg/dL 05/04/2016 5:54 PM [facility] [employer] HISTORICAL RESULTS Urine Nitrite NEGATIVE NEGATIVE 05/04/2016 5:54 PM [facility] [employer] HISTORICAL RESULTS Ur Leukocyte Esterase NEGATIVE NEGATIVE Sammie/ul 05/04/2016 5:54 PM [facility] [employer] HISTORICAL RESULTS Ur Microscopic Review Indicated or Ordered 05/04/2016 5:54 PM [facility] [employer] HISTORICAL RESULTS Urine RBC <1 0 - 2 /HPF 05/04/2016 5:54 PM SENIOR BUSINESS INTELLIGENCE ANALYST [facility] HISTORICAL RESULTS Urine WBC <1 0 - 2 /HPF 05/04/2016 5:54 PM SENIOR BUSINESS INTELLIGENCE ANALYST [facility] HISTORICAL RESULTS Urine Bacteria Many /HPF 05/04/2016 5:54 PM SENIOR BUSINESS INTELLIGENCE ANALYST [facility] HISTORICAL RESULTS Urine Mucus RARE /LPF 05/04/2016 5:54 PM SENIOR BUSINESS INTELLIGENCE ANALYST [facility] HISTORICAL RESULTS Ur Squamous Epith Cells Rare /LPF 05/04/2016 5:54 PM SENIOR BUSINESS INTELLIGENCE ANALYST [facility] HISTORICAL RESULTS 05/04/2016 4:15 PM SENIOR BUSINESS INTELLIGENCE ANALYST 05/04/2016 4:51 PM SENIOR BUSINESS INTELLIGENCE ANALYST Narrative [facility] HISTORICAL RESULTS - 05/04/2016 5:54 PM SENIOR BUSINESS INTELLIGENCE ANALYST us No Marroquin DO LAB MICROBIOLOGY - GENER AL ORDERABLES Final Result [facility] HISTORICAL RESULTS documented in this encounter Visit Diagnoses Diagnosis Other specified diseases and conditions complicating , childbirth and the puerperium 34 weeks gestation of documented in this encounter
--- OUTSIDE RECORDS SUMMARY | 2024-03-15 14:58 | XMS_ITS | Encounter Summary ---
Author Organization [facility] Healthcare Address [address] [place] [address] Care Team Providers Care Diesel Pile Hammer Operator Name Role Phone Unavailable Primary Care Provider Unavailabl e Encounter Details Date Type Department Care Team (Late st Contact Info) Description 05/07/2016 10:22 AM HARNESS BUILDER - 05/07/2016 5:00 PM HARNESS BUILDER Hospital Encounter [facility] Asia Dewey MD [address] [place] [address] False labor before 37 completed weeks of gestation; 34 weeks gestation of Social History Tobacco [...] Sign Reading Time Taken Comments Blood Pressure 119/72 05/07/2016 10:30 AM HARNESS BUILDER Pulse 107 05/07/2016 10:30 AM HARNESS BUILDER Temperature 36.7 ??C (98.1 ??F) 05/07/2016 10:[address] Respiratory Rate - - Oxygen Saturation 100% 05/07/2016 10:30 AM HARNESS BUILDER Inhaled Oxygen Concentration - - Weight 51.3 kg (113 lb) 05/07/2016 10:30 AM HARNESS BUILDER Height 160 cm (5' 3 ) 05/07/2016 10:30 AM HARNESS BUILDER Body Mass Index 20.02 05/07/2016 10:30 AM HARNESS BUILDER Body Mass Index Percentile 34.95% 05/07/2016 10: 30 AM HARNESS BUILDER Growth Chart: [facility] [place] (Girls, 2- 20 Years) documented in this encounter Plan of Treatment Not on file documented as of this encounter Procedures Procedure Name Priority Date/Time Associated Diagnosis Comments URINALYSIS AND REFLEX TO MICROSCOPIC AND CULTURE Routine 05/07/2016 11:40 AM HARNESS BUILDER documented in this encounter Results * (ABNORMAL) Urinalysis reflex to microscopic and culture (05/07/2016 11:40 AM HARNESS BUILDER) Ur Collection Type CLEAN CATCH 05/07/2016 12:52 PM [facility] [employer] [place] HISTORICAL RESULTS Ur Culture Indicated? C&S NOT INDICATED 05/07/2016 12:52 PM [facility] [employer] [place] HISTORICAL RESULTS Urine Color YELLOW YELLOW 05/07/2016 12:52 PM [facility] [employer] [place] HISTORICAL RESULTS Urine Clarity HAZY CLEAR 05/07/2016 12:52 PM [facility] [employer] [place] HISTORICAL RESULTS Urine Glucose (UA) NORMAL NORMAL mg/dL 05/07/2016 12:52 PM [facility] [employer] [place] HISTORICAL RESULTS Urine Bilirubin NEGATIVE NEGATIVE mg/dl 05/07/2016 12:52 PM [facility] [employer] [place] HISTORICAL RESULTS Urine Ketones NEGATIVE NEGATIVE mg/dL 05/07/2016 12:52 PM [facility] [employer] [place] HISTORICAL RESULTS Ur Specific [place] 1.011 1.005 - 1.025 05/07/2016 12:52 PM [facility] [employer] [place] HISTORICAL RESULTS Urine Blood NEGATIVE NEGATIVE mg/dl 05/07/2016 12:52 PM [facility] [employer] [place] HISTORICAL RESULTS Urine pH 7.0 5.0 - 8.0 05/07/2016 12:52 PM [facility] [employer] [place] HISTORICAL RESULTS Urine Protein NEGATIVE NEGATIVE mg/dL 05/07/2016 12:52 PM [facility] [employer] [place] HISTORICAL RESULTS Urine Urobilinogen NORMAL NORMAL mg/dL 05/07/2016 12:52 PM [facility] [employer] [place] HISTORICAL RESULTS Urine Nitrite NEGATIVE NEGATIVE 05/07/2016 12:52 PM [facility] [employer] [place] HISTORICAL RESULTS Ur Leukocyte Esterase 75(H) NEGATIVE Sammie/ul 05/07/2016 12:52 PM [facility] [employer] [place] HISTORICAL RESULTS Ur Microscopic Review Indicated or Ordered 05/07/2016 12:52 PM [facility] [employer] [place] HISTORICAL RESULTS Urine RBC 1 0 - 2 /HPF 05/07/2016 12:52 PM HARNESS BUILDER [facility] HISTORICAL RESULTS Urine WBC 4 0 - 2 /HPF 05/07/2016 12:52 PM HARNESS BUILDER [facility] HISTORICAL RESULTS Urine Bacteria Many /HPF 05/07/2016 12:52 PM HARNESS BUILDER [facility] HISTORICAL RESULTS Urine Mucus RARE /LPF 05/07/2016 12:52 PM HARNESS BUILDER [facility] HISTORICAL RESULTS Ur Squamous Epith Cells Rare /LPF 05/07/2016 12:52 PM HARNESS BUILDER [facility] HISTORICAL RESULTS Amorphous Crystals Many /HPF 05/07/2016 11:4 0 AM HARNESS BUILDER 05/07/2016 12:01 PM HARNESS BUILDER Narrative [facility] HISTORICAL RESULTS - 05/07/2016 12:52 PM HARNESS BUILDER us Asia Dewey MD LAB MICROBIOLOGY - GENERA L ORDERABLES Final Result [facility] HISTORICAL RESULTS documented in this encounter Visit Diagnoses Diagnosis False labor before 37 completed weeks of gestation 34 weeks gestation of documented in this encounter
--- OUTSIDE RECORDS SUMMARY | 2024-03-15 14:58 | XMS_ITS | Encounter Summary ---
Author Organization [facility] Healthcare Address [address] [place] [address] Care Team Providers Care Farm Specialist Name Role Phone Unavailable Primary Care Provider Unavailabl e Encounter Details Date Type Department Care Team (Latest Contact Info) Description 01/22/2016 5:10 PM CDT - 01/22/2016 6:06 PM CDT Hospital Encounter [facility] Cande Madrigal MD [address] [place] [address] Procedure and treatment not carried out due to patient leaving prior to being seen by health care provider Social History Tobacco Use Types Packs/Day Years Used Date Smoking Tobacco: Never Assessed Comments Unknown Sex and Gender Information Value Date Recorded Sex Assigned at Not on file Legal Sex Female 12:21 PM CDT Gender Identity Not on file Sexual Orientation Not on file documented as of this encounter Plan of Treatment Not on file documented as of this encounter Visit Diagnoses Diagnosis Procedure and treatment not carried out due to patient leaving prior to being seen by health care provider documented in this encounter
--- OUTSIDE RECORDS SUMMARY | 2024-03-15 14:58 | XMS_ITS | Encounter Summary ---
Author Organization [facility] Healthcare Address [address] [place] [address] Care Team Providers Care Trade Facilitator Name Role Phone Unavailable Primary Care Provider Unavailabl e Encounter Details Date Type Department Care Team (Late st Contact Info) Description 01/26/2018 1:36 AM CDT - 01/26/2018 3:18 AM OPTIC FIBRE DRAWER Hospital Encounter [facility] Markus Dinh Periapical abscess without sinus; Dental caries; Uncomplicated asthma; Anxiety disorder; Major depressive disorder, single episode Social History Tobacco Use Types Packs/Day Years Used Date Smoking Tobacco: Never Assessed Comments Unknown Sex and Gender Information Value Date Recorded Sex Assigned at Not on file Legal Sex Female 12:21 PM CDT Gender Identity Not on file Sexual Orientation Not on file documented as of this encounter Last Filed Vital Signs Vital Sign Reading Time Taken Comments Blood Pressure 107/79 01/26/2018 1:39 AM CDT Pulse 84 01/26/2018 1:39 AM CDT Temperature 36.7 ??C (98 ??F) 01/26/2018 1:39 AM CDT Respiratory Rate - - Oxygen Saturation 99% 01/26/2018 1:39 AM CDT Inhaled Oxygen Concentration - - Weight 48.1 kg (106 lb 0.7 oz) 01/26/2018 1:39 A M CDT Height 160 cm (5' 3 ) 01/26/2018 1:39 AM CDT Body Mass Index 18.78 01/26/2018 1:39 AM CDT documented in this encounter Plan of Treatment Not on file documented as of this encounter Visit Diagnoses Diagnosis Periapical abscess without sinus Dental caries Unspecified dental caries Uncomplicated asthma Anxiety disorder Anxiety state, unspecified Major depressive disorder, single episode Major depressive disorder, single episode, unspecified documented in this encounter
--- OUTSIDE RECORDS SUMMARY | 2024-03-15 14:58 | XMS_ITS | Encounter Summary ---
Author Organization [facility] Healthcare Address [address] [place] [address] Care Team Providers Care Manager Local Name Role Phone Unavailable Primary Care Provider Unavailabl e Encounter Details Date Type Department Care Team (Late st Contact Info) Description 09/26/2017 10:34 AM CDT - 09/26/2017 12:24 PM CDT Hospital Encounter [facility], Jennifer Mendez MD [address] [place] [address] Other specified diseases and conditions complicating , [...] Sign Reading Time Taken Comments Blood Pressure 108/67 09/26/2017 10:49 AM CDT Pulse 116 09/26/2017 10:49 AM CDT Temperature 36.6 ??C (97.9 ??F) 09/26/2017 10:49 AM C DT Respiratory Rate - - Oxygen Saturation - - Inhaled Oxygen Concentration - - Weight 51.7 kg (114 lb) 09/26/2017 10:49 AM CDT Height 160 cm (5' 3 ) 09/26/2017 10:49 AM CDT Body Mass Index 20.19 09/26/2017 10:49 AM CDT Body Mass Index Percentile 31.93% 09/26/2017 10: 49 AM CDT Growth Chart: [facility] (Girls, 2- 20 Years) documented in this encounter Plan of Treatment Not on file documented as of this encounter Procedures Procedure Name Priority Date/Time Associated Diagnosis Comments CBC WITH AUTO DIFFERENTIAL Routine 09/26/2017 11:11 AM CDT URIC ACID Routine 09/26/2017 11:11 AM CDT COMPREHENSIVE METABOLIC PANEL Routine 09/26/2017 11:11 AM CDT URINALYSIS AND REFLEX TO MICROSCOPIC AND CULTURE Routine 09/26/2017 11:00 AM CDT PROTEIN / CREATININE RATIO, URINE, RANDOM Routine 09/26/2017 11:00 AM CDT documented in this encounter Results * (ABNORMAL) Uric acid (09/26/2017 11:11 AM CDT) Uric Acid 2.1(L) 2.5 - 7.0 mg/dL 09/26/2017 11:57 AM CDT [facility] HISTORICAL RESULTS 09/26/2017 11:1 1 AM CDT 09/26/2017 11:21 AM CDT Jennifer Villatoro MD LAB BLOOD ORDERABLES Fi nal Result [facility] HISTORICAL RESULTS * (ABNORMAL) Comprehensive metabolic panel (09/26/2017 11:11 AM CDT) Sodium 136 135 - 145 mmol/L 09/26/2017 11:57 AM CDT [facility] HISTORICAL RESULTS Potassium 4.1 3.3 - 5.1 mmol/L 09/26/2017 11:57 AM CDT [facility] HISTORICAL RESULTS Chloride 101 96 - 108 mmol/L 09/26/2017 11:57 AM CDT [facility] HISTORICAL RESULTS Carbon Dioxide 27 22 - 32 mmol/L 09/26/2017 11:57 AM CDT [facility] HISTORICAL RESULTS Anion Gap 8 7 - 16 Glucose 88 70 - 100 mg/dL BUN 5(L) 6 - 20 mg/dL Creatinine 0.3(L) 0.5 - 1.1 mg/dL Comment: NOTE: Estimated GFR (Cockroft-Gault) will NOT be calculated unless patient Height and Weight were entered. Also, Kidney Disease Stage (GFR) and Estimated GFR (Cockroft-Gault) will NOT be calculated if Creatinine result is <0.2. Kidney Disease Stage > 90 mL/MIN Comment: NOTE; ??The GFR is an estimated [...] mL/min ? Kidney failure or on dialysis @ Est GFR (Cockcroft-G) 248 ml/MIN Comment: Estimated GFR(Cockroft-Gault)is used to calculate patient medication dosage Calcium 9.0 8.6 - 10.0 mg/dL 09/26/2017 11:57 AM T [facility] HISTORICAL RESULTS Total Protein 6.7 6.4 - 8.3 g/dL 09/26/2017 11:57 AM T [facility] HISTORICAL RESULTS Albumin 3.7 3.5 - 5.2 g/dL 09/26/2017 11:57 AM T [facility] HISTORICAL RESULTS Globulin 3.0 2.3 - 3.5 gm/dL 09/26/2017 11:57 AM T [facility] HISTORICAL RESULTS Albumin/Globulin Ratio 1.2 1.1 - 1.8 09/26/2017 11:57 AM T [facility] HISTORICAL RESULTS Total Bilirubin 0.2 0.0 - 1.2 mg/dL 09/26/2017 11:57 AM T [facility] HISTORICAL RESULTS AST 16 0 - 32 U/L ALT 15 0 - 33 U/L Alkaline Phosphatase 110(H) 45 - 87 U/L 09/26/2017 11:1 1 AM CDT 09/26/2017 11:21 AM CDT Jennifer Villatoro MD LAB BLOOD ORDERABLES Fi nal Result [facility] HISTORICAL RESULTS * (ABNORMAL) CBC with auto differential (09/26/2017 11:11 AM CDT) WBC 11.0(H) 3.5 - 10.5 x10 3/ul RBC 4.57 3.76 - 4.80 x10 6/ul Hemoglobin 11.4 11.0 - 15.0 g/dL Hct 36.4 33.0 - 43.0 % MCV 79.6(L) 80.0 - 97.0 fl MCH 24.9(L) 27.0 - 31.2 pg MCHC 31.3(L) 31.8 - 35.4 g/dl RDW 12.6 11.6 - 14.8 % Plt Count 220 150 - 450 X10 3/ul MPV 10.7(H) 7.4 - 10.4 fl 09/26/2017 11:26 AM [facility] Neut % 64.4 37.0 - 85.0 % 09/26/2017 11:26 AM [facility] Immature Gran % 1.9 0.0 - 3.0 % Lymph % 25.2 5.0 - 45.0 % Harrison % 7.1 3.0 - 15.0 % 09/26/2017 11:26 AM [facility] Eos % 1.2 0.0 - 7.0 % Baso % 0.2 0.0 - 2.0 % Absolute Neuts (auto) 7.1 1.7 - 8.7 x10 3/ul 09/26/2017 11:26 AM [facility] Immature Gran # 0.2 0.0 - 0.3 x10 3/ul 09/26/2017 11:26 AM [facility] Absolute Lymphs (auto) 2.8 0.2 - 4.6 x10 3/ul 09/26/2017 11:26 AM [facility] Absolute Monos (auto) 0.8 0.1 - 1.5 x10 3/ul 09/26/2017 11:26 AM CDT [facility] HISTORICAL RESULTS Absolute Eos (auto) 0.1 0.0 - 0.7 x10 3/ul Absolute Basos (auto) 0.0 0.0 - 0.2 x10 3/ul Nucleat RBC Rel Count 0.0 0 - 3 #/100WBC Absolute Nucleated RBC 0.00 x10 3/ul Absolute Neutrophils 7300 200 - 8000 /ul 09/26/2017 11:1 1 AM CDT 09/26/2017 11:21 AM CDT Jennifer Villatoro MD LAB BLOOD ORDERABLES Fi nal Result [facility] HISTORICAL RESULTS * (ABNORMAL) Urinalysis reflex to microscopic and culture (09/26/2017 11:00 AM CDT) Ur Collection Type CLEAN CATCH Ur Culture Indicated? C&S NOT INDICATED Urine Color YELLOW YELLOW Urine Clarity CLEAR CLEAR Urine Glucose (UA) NORMAL NORMAL mg/dL Urine Bilirubin NEGATIVE NEGATIVE mg/dl Urine Ketones NEGATIVE NEGATIVE mg/dL Ur Specific [place] 1.016 1.005 - 1.025 Urine Blood NEGATIVE NEGATIVE mg/dl 09/26/2017 11:47 AM T [facility] HISTORICAL RESULTS Urine pH 7.0 5.0 - 8.0 09/26/2017 11:47 AM T [facility] HISTORICAL RESULTS Urine Protein NEGATIVE NEGATIVE mg/dL 09/26/2017 11:47 AM T [facility] HISTORICAL RESULTS Urine Urobilinogen NORMAL NORMAL mg/dL 09/26/2017 11:47 AM T [facility] HISTORICAL RESULTS Urine Nitrite NEGATIVE NEGATIVE 09/26/2017 11:47 AM T [facility] HISTORICAL RESULTS Ur Leukocyte Esterase 25(H) NEGATIVE Sammie/ul 09/26/2017 11:47 AM T [facility] HISTORICAL RESULTS Ur Microscopic Review Indicated or Ordered 09/26/2017 11:47 AM T [facility] HISTORICAL RESULTS Urine RBC 2 0 - 2 /HPF 09/26/2017 11:47 AM T [facility] HISTORICAL RESULTS Urine WBC 7 0 - 2 /HPF 09/26/2017 11:47 AM T [facility] HISTORICAL RESULTS Urine Mucus RARE /LPF 09/26/2017 11:47 AM T [facility] HISTORICAL RESULTS Ur Squamous Epith Cells Few /LPF 09/26/2017 11:0 0 AM CDT 09/26/2017 11:24 AM CDT Narrative [facility] HISTORICAL RESULTS - 09/26/2017 11:47 AM CDT Indication(s) for ordering ? Jennifer Villatoro MD LAB MICROBIOLOGY - G[facility] ORDERABLES Final Result [facility] HISTORICAL RESULTS * Protein / creatinine ratio, urine, random (09/26/2017 11:00 AM CDT) Ur Random Creatinine 81.7 mg/dL 09/26/2017 11:56 AM T [facility] HISTORICAL RESULTS Comment: Reference Range First morning urine: Females 28 - 217 mg/dLRandom Specimen: ??No reference ranges U Random Total Protein 11 0 - 12 mg/dL 09/26/2017 11:56 AM T [facility] HISTORICAL RESULTS Protein/Creatin in Ratio 0.13 09/26/2017 11:56 AM CDT [facility] HISTORICAL RESULTS Comment:Random Specimen: No reference ranges 09/26/2017 11:0 0 AM CDT 09/26/2017 11:24 AM CDT [facility] - 09/26/2017 11:56 AM CDT Collected By JS Jennifer Villatoro MD LAB URINE ORDERABLES Fi nal Result [facility] HISTORICAL RESULTS documented in this encounter Visit Diagnoses Diagnosis Other specified diseases and conditions complicating , childbirth and the puerperium 34 weeks gestation of documented in this encounter
--- OUTSIDE RECORDS SUMMARY | 2024-03-15 14:58 | XMS_ITS | Encounter Summary ---
Author Organization [facility] Healthcare Address [address] [place] [address] Care Team Providers Care Supervisor Pastry Name Role Phone Unavailable Primary Care Provider Unavailabl e Encounter Details Date Type Department Care Team (Late st Contact Info) Description 06/12/2016 11:00 AM CDT - 06/22/2016 11:00 AM CDT [facility] Asia Dewey MD [address] [place] [address] Encounter for care or examination of lactating mother Social History Tobacco Use Types Packs/Day Years [...] this encounter Visit Diagnoses Diagnosis Encounter for care or examination of lactating mother documented in this encounter
--- OUTSIDE RECORDS SUMMARY | 2024-03-15 14:58 | XMS_ITS | Encounter Summary ---
Author Organization [facility] Healthcare Address [address] [place] [address] Care Team Providers Care Case Management Manager Name Role Phone Unavailable Primary Care Provider Unavailabl e Encounter Details Date Type Department Care Team (Latest Contact Info) Description 01/09/2016 10:44 PM CDT - 01/10/2016 12:55 AM CDT Hospital Encounter [facility] Other specified diseases and conditions complicating , childbirth and the puerperium; Dysuria; Other specified noninflammatory disorders of vagina; Other medical terminologist (current) drug therapy; 17 weeks gestation of Social History Tobacco Use [...] Sign Reading Time Taken Comments Blood Pressure 95/59 01/09/2016 11:03 PM CDT Pulse 80 01/09/2016 11:03 PM CDT Temperature 36.9 ??C (98.4 ??F) 01/09/2016 11:03 PM C DT Respiratory Rate - - Oxygen Saturation 99% 01/09/2016 11:03 PM CDT Inhaled Oxygen Concentration - - Weight 45 kg (99 lb 3.3 oz) 01/09/2016 11:03 PM CDT Height 160 cm (5' 3 ) 01/09/2016 11:03 PM CDT Body Mass Index 17.57 01/09/2016 11:03 PM CDT Body Mass Index Percentile 6.88% 01/09/2016 11: 03 PM CDT Growth Chart: [facility] (Girls, 2- 20 Years) documented in this encounter Plan of Treatment Not on file documented as of this encounter Procedures Procedure Name Priority Date/Time Associated Diagnosis Comments VAGINAL PATHOGEN SCREEN Routine 01/10/2016 12:30 AM CDT N. GONORRHOEAE DNA PROBE GENITAL OR URINE Routine 01/10/2016 12:30 AM CDT UA WITH CULTURE REFLEX Routine 01/09/2016 11:09 PM CDT documented in this encounter Results * VAGINAL PATHOGEN SCREEN (01/10/2016 12:30 AM CDT) Trichomonas vaginalis NEGATIVE NEGATIVE 01/10/2016 5:50 AM CDT [facility] [employer] HISTORICAL RESULTS GARDNERELLA SCREEN NEGATIVE NEGATIVE 2015 5:50 AM CDT [facility] [employer] HISTORICAL RESULTS Tammy species DNA NEGATIVE NEGATIVE 01/10/2016 5:50 AM CDT [facility] [employer] HISTORICAL RESULTS Comment: A positive result for Tammy, Gardnerella and/or Trichomonas means nucleic acid for Tammy species (C.albicans,C.glabrata,Ckefyr,C.krusei,C.parapsilosis, C.tropicalis),G.vaginalis and/or T.vaginalis,respectively, is present in the sample and indicates the patient has candidasis, bacterial vaginosis, and/or trichomoniasis when consisent with clinical signs and symptoms. Simultaneous infections by more than one organism are common. Negative results,for Tammy,Gardnerella,or Trichomonas test suggest the patient does not have candidasis,bacterial vaginosis and/or trichomoniasis, respectively, when consistent with clinical signs and symptoms. 01/10/2016 12:3 0 AM CDT 01/10/2016 12:56 AM CDT us Historical Provider LAB BLOOD ORDERABLES Estefany lindsey Result [facility] HISTORICAL RESULTS * N. gonorrhoeae DNA probe, genital or urine (01/10/2016 12:30 AM CDT) [facility] C. trachomatis RNA CT NOT DETECTED Comment:Chlamydia trachomati s is not detected. C. trachomatis RNA NG NOT DETECTED Comment:Neisseria gonorrhoea e is not detected. Chlamydia/GC Source ENDO/VAG Comment: Xpert CT/NG Assay performance has not been evaluated in female patients <14 years of age and male patients <17 years of age[address] X[address]/NG Assay performance has not been evaluated in patients with a history of hysterectomy. For patients <=14 years old The [employer] Chlamydia trachomatis/Neisseria gonorrhoeae Amplified DNA Assay should not be used for the evaluation of suspected sexual abuse or for other medico-legal indications. Additional testing is recommended in any circumstance when false positive or false negative results could lead to adverse medical, social or psychological consequences. 01/10/2016 12:3 0 AM CDT 01/10/2016 12:56 AM CDT us Historical Provider LAB MICROBIOLOGY - GENERA L ORDERABLES Final Result [facility] HISTORICAL RESULTS * UA with Culture Reflex (01/09/2016 11:09 PM CDT) [facility] Ur Collection Type CLEAN CATCH Ur Culture Indicated? C&S NOT INDICATED Urine Color STRAW YELLOW Urine Clarity CLEAR CLEAR Urine Glucose (UA) NORMAL NORMAL mg/dL Urine Bilirubin NEGATIVE NEGATIVE mg/dl Urine Ketones NEGATIVE NEGATIVE mg/dL Ur Specific [place] 1.008 1.005 - 1.025 Urine Blood NEGATIVE NEGATIVE mg/dl Urine pH 6.0 5.0 - 8.0 Urine Protein NEGATIVE NEGATIVE mg/dL Urine Urobilinogen NORMAL NORMAL mg/dL Urine Nitrite NEGATIVE NEGATIVE Ur Leukocyte Esterase NEGATIVE NEGATIVE Sammie/ul Ur Microscopic Review Not Indicated 01/09/2016 11:0 9 PM CDT 01/09/2016 11:52 PM CDT us Historical Provider LAB URINE ORDERABLES Estefany lindsey Result [facility] HISTORICAL RESULTS documented in this encounter Visit Diagnoses Diagnosis Other specified diseases and conditions complicating , childbirth and the puerperium Dysuria Other specified noninflammatory disorders of vagina Other mcfp (current) drug therapy 17 weeks gestation of documented in this encounter
--- OUTSIDE RECORDS SUMMARY | 2024-03-15 14:58 | XMS_ITS | Encounter Summary ---
Author Organization [facility] Healthcare Address [address] [place] [address] Care Team Providers Care Preforms Laminator Name Role Phone Unavailable Primary Care Provider Unavailabl e Encounter Details Date Type Department Care Team (Late st Contact Info) Description 10/09/2017 9:07 PM CDT - 10/09/2017 11:37 PM CDT Hospital Encounter [facility] Asia Dewey MD [address] [place] [address] Other specified diseases and conditions complicating , childbirth and the puerperium; 36 weeks gestation of Social History Tobacco [...] Reading Time Taken Comments Blood Pressure 117/76 10/09/2017 9:17 PM CDT Pulse 117 10/09/2017 9:17 PM CDT Temperature - - Respiratory Rate - - Oxygen Saturation - - Inhaled Oxygen Concentration - - Weight 53.1 kg (117 lb) 10/09/2017 9:17 PM CDT Height 157.5 cm (5' 2 ) 10/09/2017 9:17 PM CDT Body Mass Index 21.4 10/09/2017 9:17 PM CDT documented in this encounter Plan of Treatment Not on file documented as of this encounter Procedures Procedure Name Priority Date/Time Associated Diagnosis Comments MEMBRANE RUPTURE TEST Routine 10/09/2017 9:45 PM CDT documented in this encounter Results * MEMBRANE RUPTURE TEST (10/09/2017 9:45 PM CDT) Membranes Rupture NEGATIVE NEGATIVE 10/09/2017 10:13 PM CDT [facility][NOTE 3] HISTORICAL RESULTS Comment: A negative result does not assure the absence of membrane rupture. Results should be used in conjunction with other clinical information. 10/09/2017 9:45 PM CDT 10/09/2017 9:52 PM CDT us Asia Dewey MD LAB BLOOD ORDERABLES Estefany lindsey Result [facility][NOTE 3] HISTORICAL RESULTS documented in this encounter Visit Diagnoses Diagnosis Other specified diseases and conditions complicating , childbirth and the puerperium 36 weeks gestation of documented in this encounter
--- OUTSIDE RECORDS SUMMARY | 2024-03-15 14:58 | XMS_ITS | Encounter Summary ---
Author Organization [facility] Healthcare Address [address] [place] [address] Care Team Providers Care Solar Hot Water Installer Name Role Phone Unavailable Primary Care Provider Unavailabl e Encounter Details Date Type Department Care Team (Latest Contact Info) Description 05/21/2016 11:29 PM ASSISTANT BROKER - 05/22/2016 12:50 AM ASSISTANT BROKER Hospital Encounter [facility] No Martinez, DO [address] [place] [address] Other specified diseases and conditions complicating , [...] Sign Reading Time Taken Comments Blood Pressure 115/62 05/21/2016 11:54 PM ASSISTANT BROKER Pulse 100 05/21/2016 11:54 PM ASSISTANT BROKER Temperature 36.6 ??C (97.8 ??F) 05/21/2016 11:[address] Respiratory Rate - - Oxygen Saturation - - Inhaled Oxygen Concentration - - Weight 53.5 kg (118 lb) 05/21/2016 11:54 PM ASSISTANT BROKER Height 160 cm (5' 3 ) 05/21/2016 11:54 PM ASSISTANT BROKER Body Mass Index 20.9 05/21/2016 11:54 PM ASSISTANT BROKER Body Mass Index Percentile 46.93% 05/21/2016 11: 54 PM ASSISTANT BROKER Growth Chart: [facility] (Girls, 2- 20 Years) documented in this encounter Plan of Treatment Not on file documented as of this encounter Visit Diagnoses Diagnosis Other specified diseases and conditions complicating , childbirth and the puerperium 36 weeks gestation of documented in this encounter
--- OUTSIDE RECORDS SUMMARY | 2024-03-15 14:58 | XMS_ITS | Encounter Summary ---
Author Organization [facility] Healthcare Address [address] [place] [address] Care Team Providers Care Research Study Assistant Name Role Phone Unavailable Primary Care Provider Unavailabl e Encounter Details Date Type Department Care Team (Late st Contact Info) Description 10/10/2017 4:13 PM CDT - 10/10/2017 6:30 PM CDT Hospital Encounter [facility], Jennifer Mendez MD [address] [place] [address] False labor before 37 completed weeks of [...] Sign Reading Time Taken Comments Blood Pressure 121/78 10/10/2017 4:57 PM CDT Pulse 105 10/10/2017 4:57 PM CDT Temperature - - Respiratory Rate - - Oxygen Saturation - - Inhaled Oxygen Concentration - - Weight - - Height - - Body Mass Index - - documented in this encounter Plan of Treatment Not on file documented as of this encounter Visit Diagnoses Diagnosis False labor before 37 completed weeks of gestation 36 weeks gestation of documented in this encounter
--- OUTSIDE RECORDS SUMMARY | 2024-03-15 14:58 | XMS_ITS | Encounter Summary ---
Author Organization [facility] Healthcare Address [address] [place] [address] Care Team Providers Care Spot Machine Operator Name Role Phone Unavailable Primary Care Provider Unavailabl e Encounter Details Date Type Department Care Team (Latest Contact Info) Description 01/16/2018 11:35 AM CDT Hospital Encounter [facility] Tim Loera MD [address] [place] [id number] Benign neoplasm of right breast; Mastodynia; Mass of lower outer quadrant of right breast; Uncomplicated asthma Social History Tobacco Use Types Packs/Day Years [...] Date/Time Associated Diagnosis Comments SCAN - PATHOLOGY 01/20/2018 12:0 0 AM CDT documented in this encounter Results * SCAN - PATHOLOGY (01/20/2018 12:00 AM CDT) Narrative 01/20/2018 12:00 AM CDT Ordered by an unspecified provider. us Historical Provider Final Res ult documented in this encounter Visit Diagnoses Diagnosis Benign neoplasm of right breast Mastodynia Mass of lower outer quadrant of right breast Uncomplicated asthma documented in this encounter
--- OUTSIDE RECORDS SUMMARY | 2024-03-15 14:58 | XMS_ITS | Encounter Summary ---
Author Organization [facility] Healthcare Address [address] [place] [address] Care Team Providers Care Berry Grower Name Role Phone Unavailable Primary Care Provider Unavailabl e Encounter Details Date Type Department Care Team (Latest Contact Info) Description 03/23/2017 3:45 AM OPTICAL LABORATORY MANAGER - 03/23/2017 6:35 AM OPTICAL LABORATORY MANAGER Hospital Encounter [facility] Mumtaz Betts MD [address] [facility] [place] [address] Infection of urinary tract in in first trimester; 8 weeks gestation of Social History Tobacco Use [...] Sign Reading Time Taken Comments Blood Pressure 103/53 03/23/2017 3:58 AM OPTICAL LABORATORY MANAGER Pulse 70 03/23/2017 3:58 AM OPTICAL LABORATORY MANAGER Temperature 36.5 ??C (97.7 ??F) 03/23/2017 3:58 AM CS T Respiratory Rate - - Oxygen Saturation 99% 03/23/2017 3:58 AM OPTICAL LABORATORY MANAGER Inhaled Oxygen Concentration - - Weight 19.5 kg (43 lb) 03/23/2017 3:58 AM OPTICAL LABORATORY MANAGER Height 160 cm (5' 3 ) 03/23/2017 3:58 AM OPTICAL LABORATORY MANAGER Body Mass Index 7.62 03/23/2017 3:58 AM OPTICAL LABORATORY MANAGER Body Mass Index Percentile 0.00% 03/23/2017 3:5 8 AM OPTICAL LABORATORY MANAGER Growth Chart: [facility] (Girls, 2- 20 Years) documented in this encounter Plan of Treatment Not on file documented as of this encounter Procedures Procedure Name Priority Date/Time Associated Diagnosis Comments MICROBIOLOGY SPECIMEN REPORT (CONVERTED) Routine 03/23/2017 4:05 AM OPTICAL LABORATORY MANAGER URINALYSIS AND REFLEX TO MICROSCOPIC AND CULTURE Routine 03/23/2017 4:05 AM OPTICAL LABORATORY MANAGER documented in this encounter Results * Microbiology Specimen Report (Converted) (03/23/2017 4:05 AM OPTICAL LABORATORY MANAGER) 03/23/2017 4:05 AM OPTICAL LABORATORY MANAGER 03/23/2017 4:15 AM OPTICAL LABORATORY MANAGER [facility] HISTORICAL RESULTS - 03/23/2017 4:05 AM OPTICAL LABORATORY MANAGER Microbiology Specimen Report (Converted) SPECIMEN [id number] ?? COLLECTED: 2017-03-23 04:05:00 TW ?? REQ#: [id number] REQUESTING DR: Gm Cruz MD ?? SOURCE: URINE ?? SP DESC: CLEAN CATC --- PROCEDURE --- ?--- RESULT --- ?? CULTURE URINE ??(Final) ??- ??Performed at [facility] ?* COLONY COUNT: 40,000 CFU/ml ?* OTHER GRAM POSITIVE ORGANISMS ?? * Organism 1 - PROTEUS MIRABILIS [P MIRABIL] ?* COLONY COUNT: >100,000 CFU/ml ?* SEE SUSCEPTIBILITY REPORT BELOW ?? * Organism 2 - LACTOBACILLUS SPECIES [LAC SPEC] ?* COLONY COUNT: >100,000 CFU/ml ?* ISOLATE OF QUESTIONABLE SIGNIFICANCE. ? [P MIRABIL] ? M.I.C. ?RX AMOXICILLIN/CLAVULANIC ACID ?<=2 ? S AMPICILLIN ? <=2 ? S AMPICILLIN/SULBACTAM ? <=2 ? S CEFAZOLIN ?<=4 ? S CEFEPIME ? <=1 ? S CEFTRIAXONE ?<=1 ? S CIPROFLOXACIN ?<=0.25 ?S ERTAPENEM ?<=0.5 ? S GENTAMICIN ? <=1 ? S IMIPENEM ? 1 ? S LEVOFLOXACIN ? <=0.12 ?S NITROFURANTOIN ? 128 ? R PIPERACILLIN/TAZOBACTAM ?<=4 ? S TRIMETHOPRIM/SULFAMETHOXAZOLE ??<=20 ?S TOBRAMYCIN ? <=1 ? S ??S=Susceptible ?? I=Intermediate ?? S=Resistant ??SDD=Susceptible Dose Dependent ?? N/R=No Report ?KERRI =Beta Lactamase - [facility] ? [address] [facility] ? [place] [address] ? Markus Royal MD Procedure Note 06/14/2018 Microbiology Specimen Report (Converted) SPECIMEN [id number] COLLECTED: 2017-03-23 04:05:00 TW REQ#:[id number] REQUESTING DR: Gm Cruz MD SOURCE: URINE SP DESC: CLEAN CATC --- PROCEDURE --- --- RESULT --- CULTURE URINE (Final) - Performed at [facility] * COLONY COUNT: 40,000 CFU/ml * OTHER GRAM POSITIVE ORGANISMS * Organism 1 - PROTEUS MIRABILIS [P MIRABIL] * COLONY COUNT: >100,000 CFU/ml * SEE SUSCEPTIBILITY REPORT BELOW * Organism 2 - LACTOBACILLUS SPECIES [LAC SPEC] * COLONY COUNT: >100,000 CFU/ml * ISOLATE OF QUESTIONABLE SIGNIFICANCE. [P MIRABIL] M.I.C. RX AMOXICILLIN/CLAVULANIC ACID <=2 S AMPICILLIN <=2 S AMPICILLIN/SULBACTAM <=2 S CEFAZOLIN <=4 S CEFEPIME <=1 S CEFTRIAXONE <=1 S CIPROFLOXACIN <=0.25 S ERTAPENEM <=0.5 S GENTAMICIN <=1 S IMIPENEM 1 S LEVOFLOXACIN <=0.12 S NITROFURANTOIN 128 R PIPERACILLIN/TAZOBACTAM <=4 S TRIMETHOPRIM/SULFAMETHOXAZOLE <=20 S TOBRAMYCIN <=1 S S=Susceptible I=Intermediate S=Resistant SDD=Susceptible Dose Dependent N/R=No Report KERRI =Beta Lactamase - [facility] [address] Markus Royal MD us Gm Cruz MD LAB BLOOD ORDERABLES Final Re sult [employer] HISTORICAL RESULTS * (ABNORMAL) Urinalysis reflex to microscopic and culture (03/23/2017 4:05 AM OPTICAL LABORATORY MANAGER) Ur Collection Type CLEAN CATCH 03/23/2017 5:20 AM [facility] [employer] HISTORICAL RESULTS Ur Culture Indicated? C&S INDICATED 03/23/2017 5:20 AM [facility] [employer] HISTORICAL RESULTS Comment:Culture report to dawna. Urine Color YELLOW YELLOW 03/23/2017 5:20 AM OPTICAL LABORATORY MANAGER [employer] HISTORICAL RESULTS Urine Clarity CLOUDY CLEAR 03/23/2017 5:20 AM OPTICAL LABORATORY MANAGER [employer] HISTORICAL RESULTS Urine Glucose (UA) NORMAL NORMAL mg/dL 03/23/2017 5:20 AM [facility] [employer] HISTORICAL RESULTS Urine Bilirubin NEGATIVE NEGATIVE mg/dl 03/23/2017 5:20 AM OPTICAL LABORATORY MANAGER [employer] HISTORICAL RESULTS Urine Ketones NEGATIVE NEGATIVE mg/dL 03/23/2017 5:20 AM OPTICAL LABORATORY MANAGER [facility] [employer] HISTORICAL RESULTS Ur Specific [place] 1.026(H) 1.005 - 1.025 03/23/2017 5:20 AM OPTICAL LABORATORY MANAGER [employer] HISTORICAL RESULTS Urine Blood >=1.0 NEGATIVE mg/dl 03/23/2017 5:20 AM [facility] [employer] HISTORICAL RESULTS Urine pH 6.0 5.0 - 8.0 03/23/2017 5:20 AM [facility] [employer] HISTORICAL RESULTS Urine Protein 100(H) NEGATIVE mg/dL 03/23/2017 5:20 AM [facility] [employer] HISTORICAL RESULTS Urine Urobilinogen NORMAL NORMAL mg/dL 03/23/2017 5:20 AM [employer] HISTORICAL RESULTS Urine Nitrite NEGATIVE NEGATIVE 03/23/2017 5:20 AM [facility] HISTORICAL RESULTS Ur Leukocyte Esterase 250(H) NEGATIVE Sammie/ul 03/23/2017 5:20 AM [facility] HISTORICAL RESULTS Ur Microscopic Review Indicated or Ordered 03/23/2017 5:20 AM [facility] HISTORICAL RESULTS Urine RBC 249 0 - 2 /HPF 03/23/2017 5:20 AM OPTICAL LABORATORY MANAGER [facility] HISTORICAL RESULTS Urine WBC 1666 0 - 2 /HPF 03/23/2017 5:20 AM OPTICAL LABORATORY MANAGER [facility] HISTORICAL RESULTS Urine WBC Clumps Marked /HPF 03/23/2017 5:20 AM OPTICAL LABORATORY MANAGER [facility] HISTORICAL RESULTS Urine Mucus Marked /LPF 03/23/2017 5:20 AM OPTICAL LABORATORY MANAGER [facility] HISTORICAL RESULTS 03/23/2017 4:05 AM OPTICAL LABORATORY MANAGER 03/23/2017 4:15 AM OPTICAL LABORATORY MANAGER Narrative [facility] HISTORICAL RESULTS - 03/23/2017 5:20 AM OPTICAL LABORATORY MANAGER Indication(s) for ordering ? Increased freq/urgency ?? us Gm Cruz MD LAB MICROBIOLOGY - GENERAL OR DERABLES Final Result [facility] HISTORICAL RESULTS documented in this encounter Visit Diagnoses Diagnosis Infection of urinary tract in in first trimester 8 weeks gestation of documented in this encounter
--- OUTSIDE RECORDS SUMMARY | 2024-03-15 14:58 | XMS_ITS | Encounter Summary ---
Author Organization [facility] Healthcare Address [address] [place] [address] Care Team Providers Care Newspaper Managing Editor Name Role Phone Unavailable Primary Care Provider Unavailabl e Encounter Details Date Type Department Care Team (Latest Contact Info) Description 06/06/2016 9:54 AM CDT - 06/06/2016 12:37 PM CDT Hospital Encounter [facility] No Martinez, DO [address] [place] [address] Other specified diseases and conditions complicating , childbirth and the puerperium; 39 weeks gestation of Social History Tobacco Use [...] Sign Reading Time Taken Comments Blood Pressure 119/81 06/06/2016 10:11 AM CDT Pulse 87 06/06/2016 10:11 AM CDT Temperature 36.8 ??C (98.2 ??F) 06/06/2016 10:11 AM C DT Respiratory Rate - - Oxygen Saturation 99% 06/06/2016 10:11 AM CDT Inhaled Oxygen Concentration - - Weight 54.9 kg (121 lb) 06/06/2016 10:11 AM CDT Height 160 cm (5' 3 ) 06/06/2016 10:11 AM CDT Body Mass Index 21.43 06/06/2016 10:11 AM CDT Body Mass Index Percentile 53.49% 06/06/2016 10: 11 AM CDT Growth Chart: [facility] (Girls, 2- 20 Years) documented in this encounter Plan of Treatment Not on file documented as of this encounter Procedures Procedure Name Priority Date/Time Associated Diagnosis Comments CBC WITH AUTO DIFFERENTIAL Routine 06/06/2016 11:04 AM CDT URINALYSIS AND REFLEX TO MICROSCOPIC AND CULTURE Routine 06/06/2016 11:00 AM CDT documented in this encounter Results * (ABNORMAL) CBC with auto differential (06/06/2016 11:04 AM CDT) WBC 10.7(H) 4.6 - 10.2 x10 3/ul 06/06/2016 11:13 AM CDT [employer] HISTORICAL RESULTS RBC 4.46 3.76 - 4.80 x10 6/ul 06/06/2016 11:13 AM CDT [employer] HISTORICAL RESULTS Hemoglobin 12.1 11.0 - 15.0 g/dl 06/06/2016 11:13 AM CDT [employer] HISTORICAL RESULTS Hct 37.8 33.0 - 43.0 % 06/06/2016 11:13 AM CDT [employer] HISTORICAL RESULTS MCV 84.8 80.0 - 97.0 fl 06/06/2016 11:13 AM CDT [employer] HISTORICAL RESULTS MCH 27.1 27.0 - 31.2 pg 06/06/2016 11:13 AM CDT [employer] HISTORICAL RESULTS MCHC 32.0 31.8 - 35.4 g/dl 06/06/2016 11:13 AM CDT [employer] HISTORICAL RESULTS RDW 16.1(H) 11.6 - 14.8 % 06/06/2016 11:13 AM CDT [employer] HISTORICAL RESULTS Plt Count 162 124 - 400 x10 3/ul 06/06/2016 11:13 AM CDT [employer] HISTORICAL RESULTS MPV 11.5(H) 7.4 - 10.4 fl 06/06/2016 11:13 AM CDT [employer] HISTORICAL RESULTS Neut % 76.1 37.0 - 85.0 % 06/06/2016 11:13 AM CDT [facility] HISTORICAL RESULTS Immature Gran % 0.8 0.0 - 3.0 % 06/06/2016 11:13 AM T [facility] HISTORICAL RESULTS Lymph % 16.0 5.0 - 45.0 % 06/06/2016 11:13 AM T [facility] HISTORICAL RESULTS Graves % 6.0 3.0 - 15.0 % 06/06/2016 11:13 AM T [facility] HISTORICAL RESULTS Eos % 0.7 0.0 - 7.0 % 06/06/2016 11:13 AM T [facility] HISTORICAL RESULTS Baso % 0.4 0.0 - 2.0 % 06/06/2016 11:13 AM T [facility] HISTORICAL RESULTS Absolute Neuts (auto) 8.1 1.7 - 8.7 x10 3/ul 06/06/2016 11:13 AM T [facility] HISTORICAL RESULTS Immature Gran # 0.1 0.0 - 0.3 x10 3/ul 06/06/2016 11:13 AM T [facility] HISTORICAL RESULTS Absolute Lymphs (auto) 1.7 0.2 - 4.6 x10 3/ul 06/06/2016 11:13 AM T [facility] HISTORICAL RESULTS Absolute Monos (auto) 0.6 0.1 - 1.5 x10 3/ul 06/06/2016 11:13 AM T [facility] HISTORICAL RESULTS Absolute Eos (auto) 0.1 0.0 - 0.7 x10 3/ul Absolute Basos (auto) 0.0 0.0 - 0.2 x10 3/ul 06/06/2016 11:0 4 AM CDT 06/06/2016 11:10 AM CDT us No Marroquin DO LAB BLOOD ORDERABLES Fin al Result [facility] HISTORICAL RESULTS * (ABNORMAL) Urinalysis reflex to microscopic and culture (06/06/2016 11:00 AM CDT) Ur Collection Type CLEAN CATCH Ur Culture Indicated? C&S NOT INDICATED Urine Color YELLOW YELLOW Urine Clarity HAZY CLEAR Urine Glucose (UA) NORMAL NORMAL mg/dL Urine Bilirubin NEGATIVE NEGATIVE mg/dl Urine Ketones NEGATIVE NEGATIVE mg/dL Ur Specific [place] 1.016 1.005 - 1.025 Urine Blood NEGATIVE NEGATIVE mg/dl Urine pH 6.0 5.0 - 8.0 Urine Protein NEGATIVE NEGATIVE mg/dL Urine Urobilinogen NORMAL NORMAL mg/dL Urine Nitrite NEGATIVE NEGATIVE Ur Leukocyte Esterase 25(H) NEGATIVE Sammie/ul Ur Microscopic Review Indicated or Ordered Urine RBC 2 0 - 2 /HPF Urine WBC 2 0 - 2 /HPF Urine Bacteria Mod /HPF Urine Mucus Many /LPF Ur Squamous Epith Cells Mod /LPF 06/06/2016 11:0 0 AM CDT 06/06/2016 11:28 AM CDT Narrative [facility] HISTORICAL RESULTS - 06/06/2016 11:44 AM CDT Indication(s) for ordering ? us No Marroquin DO LAB MICROBIOLOGY - GENER AL ORDERABLES Final Result [facility] HISTORICAL RESULTS documented in this encounter Visit Diagnoses Diagnosis Other specified diseases and conditions complicating , childbirth and the puerperium 39 weeks gestation of documented in this encounter
--- OUTSIDE RECORDS SUMMARY | 2024-03-15 14:58 | XMS_ITS | Encounter Summary ---
Author Organization [facility] Address [address] [place] [address] Care Team Providers Care Records Specialist Name Role Phone Unavailable Primary Care Provider Unavailabl e Encounter Details Date Type Department Care Team (Latest Contact Info) Description 05/17/2017 12:10 PM 3D DESIGNER - 05/17/2017 3:00 PM 3D DESIGNER Hospital Encounter [facility] Joan Perez, SUPERVISOR CRACK OFF [address] [place] [address] Influenza due to identified novel influenza A virus with other respiratory manifestations; Allergy status to other antibiotic agents status Social History Tobacco Use Types Packs/Day Years Used Date Smoking Tobacco: Never Assessed Comments Unknown Sex and Gender Information Value Date Recorded Sex Assigned at Not on file Legal Sex Female 12:21 PM CDT Gender Identity Not on file Sexual Orientation Not on file documented as of this encounter Last Filed Vital Signs Vital Sign Reading Time Taken Comments Blood Pressure 101/54 05/17/2017 12:12 PM 3D DESIGNER Pulse 86 05/17/2017 12:12 PM 3D DESIGNER Temperature 36.5 ??C (97.7 ??F) 05/17/2017 1 2:12 PM 3D DESIGNER Respiratory Rate - - Oxygen Saturation 96% 05/17/2017 12: 12 PM 3D DESIGNER Inhaled Oxygen Concentration - - Weight 42.4 kg (93 lb 7.6 oz) 8 12:12 PM 3D DESIGNER Height 160 cm (5' 3 ) 05/17/2017 12:12 PM 3D DESIGNER Body Mass Index 16.56 05/17/2017 12:12 PM 3D DESIGNER Body Mass Index Percentile 0.81% 05/17 12:12 PM 3D DESIGNER Growth Chart: [facility] (Girls, 2- 20 Years) documented in this encounter Plan of Treatment Not on file documented as of this encounter Procedures Procedure Name Priority Date/Time Associated Diagnosis Comments INFLUENZA A/B ANTIGENS, RAPID Routine 05/17/2017 12:35 PM 3D DESIGNER XR CHEST 1 VIEW Routine 05/17/2017 12:00 AM 3D DESIGNER documented in this encounter Results * Influenza A/B antigens, rapid (05/17/2017 12:35 PM 3D DESIGNER) Influenza A Ag POSITIVE NEGATIVE 05/17/2017 1:22 PM 3D DESIGNER [facility] HISTORICAL RESULTS Influenza B Ag NEGATIVE NEGATIVE 05/17/2017 1:22 PM 3D DESIGNER [facility] HISTORICAL RESULTS Comment: A NEGATIVE RESULT DOES NOT ELIMINATE THE POSSIBILITY OF AN ?? INFLUENZA A OR B INFECTION. ??INADEQUATE SPECIMEN COLLECTION ?? OR IMPROPER SAMPLE HANDLING/TRANSPORT, OR LOW LEVELS OF ?? VIRAL SHEDDING MAY YIELD A FALSE NEGATIVE RESULT. 05/17/2017 12:3 5 PM 3D DESIGNER 05/17/2017 12:59 PM 3D DESIGNER Narrative [facility] HISTORICAL RESULTS - 05/17/2017 1:22 PM 3D DESIGNER Collected By dlr us Joan Livingston NP LAB MICROBIOLOGY - GENERAL SEBASTIAN DELGADO Final Result [facility] HISTORICAL RESULTS * XR Chest 1 View (05/17/2017 12:00 AM 3D DESIGNER) Anatomical Region Laterality Modality Body, Chest N/A Radiographic Jaelyn ging 05/17/2017 Impressions 05/17/2017 2:23 PM 3D DESIGNER ??No acute cardiopulmonary disease. THIS IS AN ELECTRONICALLY VERIFIED FINAL REPORT 05/17/2017 2:20 PM - Electronically signed by Tevin Veliz M.D. MP: ILA D: ??05/17/2017 2:20 PM T: ??05/17/2017 2:20 PM Report ID: [id number] Reading Location: ??[id number] [EOD] Narrative 05/17/2017 2:23 PM 3D DESIGNER EXAM DESCRIPTION: ??Chest 1 View COMPLETED DATE/TIME: ??05/17/2017 12:48 pm REASON FOR STUDY: ??PT IS 15 WEEKS , productive cough x 1 week COMPARISON: ??04/29/2004 TECHNIQUE: ??Single frontal radiographic view of the chest acquired. FINDINGS: LUNGS AND PLEURA: No focal consolidation or pneumothorax. No pleural effusion. MEDIASTINUM: Normal mediastinal and hilar contour. HEART: Cardiac silhouette size normal. BONES: No acute findings. OTHER: No other significant finding. Procedure Note Provider, MD Markus - 08/09/2020 EXAM DESCRIPTION: Chest 1 View COMPLETED DATE/TIME: 05/17/2017 12:48 pm REASON FOR STUDY: PT IS 15 WEEKS , productive cough x 1 week COMPARISON: 04/29/2004 TECHNIQUE: Single frontal radiographic view of the chest acquired. FINDINGS: LUNGS AND PLEURA: No focal consolidation or pneumothorax. No pleuraleffusion. MEDIASTINUM: Normal mediastinal and hilar contour. HEART: Cardiac silhouette size normal. BONES: No acute findings. OTHER: No other significant finding. IMPRESSION: No acute cardiopulmonary disease. THIS IS AN ELECTRONICALLY VERIFIED FINAL REPORT 05/17/2017 2:20 PM - Electronically signed by Tevin Veliz M.D. MP: ILA Report ID: [id number] Reading Location: [id number] [EOD] Joan Livingston NP IMG XR PROCEDURES Final Result documented in this encounter Visit Diagnoses Diagnosis Influenza due to identified novel influenza A virus with other respiratory manifestations Allergy status to other antibiotic agents status documented in this encounter
--- OUTSIDE RECORDS SUMMARY | 2024-03-15 14:58 | XMS_ITS | Encounter Summary ---
Author Organization [facility] Healthcare Address [address] [place] [address] Care Team Providers Care Flat Hammerer Name Role Phone Unavailable Primary Care Provider Unavailabl e Encounter Details Date Type Department Care Team (Latest Contact Info) Description 05/14/2016 2:29 PM FOLDED TOWEL MACHINE OPERATOR - 05/14/2016 5:05 PM FOLDED TOWEL MACHINE OPERATOR Hospital Encounter [facility] OP Leyla Noble MD [address] [place] [address] Other specified diseases and conditions complicating , [...] Reading Time Taken Comments Blood Pressure 115/71 05/14/2016 3:41 PM FOLDED TOWEL MACHINE OPERATOR Pulse 83 05/14/2016 3:41 PM FOLDED TOWEL MACHINE OPERATOR Temperature 36.8 ??C (98.2 ??F) 05/14/2016 3:41 PM CS T Respiratory Rate - - Oxygen Saturation - - Inhaled Oxygen Concentration - - Weight 53.1 kg (117 lb) 05/14/2016 3:41 PM FOLDED TOWEL MACHINE OPERATOR Height 160 cm (5' 3 ) 05/14/2016 3:41 PM FOLDED TOWEL MACHINE OPERATOR Body Mass Index 20.73 05/14/2016 3:41 PM FOLDED TOWEL MACHINE OPERATOR Body Mass Index Percentile 44.74% 05/14/2016 3:4 1 PM FOLDED TOWEL MACHINE OPERATOR Growth Chart: [facility] (Girls, 2- 20 Years) documented in this encounter Plan of Treatment Not on file documented as of this encounter Procedures Procedure Name Priority Date/Time Associated Diagnosis Comments UA WITH CULTURE REFLEX Routine 05/14/2016 3:00 PM FOLDED TOWEL MACHINE OPERATOR DRUGS OF ABUSE SCREEN, URINE WITHOUT CONFIRMATION Routine 05/14/2016 3:00 PM FOLDED TOWEL MACHINE OPERATOR documented in this encounter Results * Drug Screen, Urine (05/14/2016 3:00 PM FOLDED TOWEL MACHINE OPERATOR) Ur Amphetamine Screen NEGATIVE NEGATIVE Comment: Cutoff Limit: ??1000 ng/mL ??Detects MDMA, MDA, d-Amphetamine, d-Methamphetamine, ?MBDB-HCl, MDEA and BDB-HCl Note: ??Positive results from this drug screen are unconfirmed. ??Unconfirmed screening results should not be used for non-medical purposes. Ur Barbiturates Screen NEGATIVE NEGATIVE 05/14/2016 4:29 PM [facility] HISTORICAL RESULTS Comment: Cutoff limit: ??200 ng/mL ??Detects Secobarbitol, Cyclopentobarbital, Aprobarbital, ?Butalbital, Allobarbital, Butabarbital, ?Pentobarbital, Amobarbital and Phenobarbital U Benzodiazepines Scrn NEGATIVE NEGATIVE 05/14/2016 4:29 PM [facility] [employer] [facility] HISTORICAL RESULTS Comment:Cutoff limit: 300 ng /mL U Cannabinoids Screen NEGATIVE NEGATIVE Comment:Cutoff Limit: 50 ng/ mL U Cocaine Metab Screen NEGATIVE NEGATIVE Comment:Cutoff limit: 300 ng /mL Urine Opiates Screen NEGATIVE NEGATIVE Comment: Cutoff Limit: ??300 ng/mL Detects Morphine, Codeine, Ethyl Morphine, ?Diacetylmorphine, 6-Acetylmorphine, Dihydrocodeine, ?Hbtebdnw-5-osnuphkmjmm and Hydrocodone Ur Oxycodone Screen NEGATIVE NEGATIVE 05/14 4:29 PM [facility] HISTORICAL RESULTS Comment:Cutoff Limit: 100 ng /mL Urine Creatinine/MONICA 11.2 mg/dL Comment:If Creatinine is < 4 0 mg/dL, recollection is suggested. 05/14/2016 3:00 PM FOLDED TOWEL MACHINE OPERATOR 05/14/2016 4:01 PM [facility] us Leyla Noble MD LAB URINE ORDERABLES Final Resu lt [facility] HISTORICAL RESULTS * (ABNORMAL) UA with Culture Reflex (05/14/2016 3:00 PM FOLDED TOWEL MACHINE OPERATOR) Ur Collection Type CLEAN CATCH Ur Culture Indicated? C&S NOT INDICATED Urine Color STRAW YELLOW Urine Clarity CLEAR CLEAR Urine Glucose (UA) NORMAL NORMAL mg/dL Urine Bilirubin NEGATIVE NEGATIVE mg/dl Urine Ketones NEGATIVE NEGATIVE mg/dL Ur Specific [place] 1.001(L) 1.005 - 1.025 Urine Blood NEGATIVE NEGATIVE mg/dl Urine pH 7.0 5.0 - 8.0 Urine Protein NEGATIVE NEGATIVE mg/dL Urine Urobilinogen NORMAL NORMAL mg/dL Urine Nitrite NEGATIVE NEGATIVE Ur Leukocyte Esterase NEGATIVE NEGATIVE Sammie/ul Ur Microscopic Review Not Indicated 05/14/2016 3:00 PM FOLDED TOWEL MACHINE OPERATOR 05/14/2016 4:01 PM FOLDED TOWEL MACHINE OPERATOR us Leyla Noble MD LAB URINE ORDERABLES Final Resu lt [facility] HISTORICAL RESULTS documented in this encounter Visit Diagnoses Diagnosis Other specified diseases and conditions complicating , childbirth and the puerperium 36 weeks gestation of documented in this encounter
--- OUTSIDE RECORDS SUMMARY | 2024-03-15 14:58 | XMS_ITS | Encounter Summary ---
Author Organization [facility] Healthcare Address [address] [place] [address] Care Team Providers Care Data Management Name Role Phone Unavailable Primary Care Provider Unavailabl e Encounter Details Date Type Department Care Team (Latest Contact Info) Description 05/17/2016 11:35 PM HEAD GAUGE UNIT OPERATOR - 05/18/2016 1:15 AM HEAD GAUGE UNIT OPERATOR [facility] [address] [place] [address] False labor before 37 completed weeks of [...] Sign Reading Time Taken Comments Blood Pressure 108/56 05/17/2016 11:45 PM HEAD GAUGE UNIT OPERATOR Pulse 80 05/17/2016 11:45 PM HEAD GAUGE UNIT OPERATOR Temperature 36.8 ??C (98.2 ??F) 05/17/2016 11:[address] Respiratory Rate - - Oxygen Saturation 97% 05/17/2016 11:45 PM HEAD GAUGE UNIT OPERATOR Inhaled Oxygen Concentration - - Weight 53.1 kg (117 lb) 05/17/2016 11:45 PM HEAD GAUGE UNIT OPERATOR Height 160 cm (5' 3 ) 05/17/2016 11:45 PM HEAD GAUGE UNIT OPERATOR Body Mass Index 20.73 05/17/2016 11:45 PM HEAD GAUGE UNIT OPERATOR Body Mass Index Percentile 44.70% 05/17/2016 11: 45 PM HEAD GAUGE UNIT OPERATOR Growth Chart: [facility] (Girls, 2- 20 Years) documented in this encounter Plan of Treatment Not on file documented as of this encounter Procedures Procedure Name Priority Date/Time Associated Diagnosis Comments URINALYSIS AND REFLEX TO MICROSCOPIC AND CULTURE Routine 05/18/2016 12:15 AM HEAD GAUGE UNIT OPERATOR documented in this encounter Results * (ABNORMAL) Urinalysis reflex to microscopic and culture (05/18/2016 12:15 AM HEAD GAUGE UNIT OPERATOR) Ur Collection Type CLEAN CATCH 05/18/2016 12:58 AM HEAD GAUGE UNIT OPERATOR [employer] HISTORICAL RESULTS Ur Culture Indicated? C&S NOT INDICATED Urine Color YELLOW YELLOW 05/18/2016 12:58 AM HEAD GAUGE UNIT OPERATOR [employer] HISTORICAL RESULTS Urine Clarity CLEAR CLEAR 05/18/2016 12:58 AM HEAD GAUGE UNIT OPERATOR [employer] HISTORICAL RESULTS Urine Glucose (UA) NORMAL NORMAL mg/dL Urine Bilirubin NEGATIVE NEGATIVE mg/dl Urine Ketones NEGATIVE NEGATIVE mg/dL Ur Specific [place] 1.008 1.005 - 1.025 Urine Blood NEGATIVE NEGATIVE mg/dl Urine pH 6.0 5.0 - 8.0 Urine Protein NEGATIVE NEGATIVE mg/dL Urine Urobilinogen NORMAL NORMAL mg/dL Urine Nitrite NEGATIVE NEGATIVE Ur Leukocyte Esterase 25(H) NEGATIVE Sammie/ul 05/18/2016 12:58 AM HEAD GAUGE UNIT OPERATOR [employer] HISTORICAL RESULTS Ur Microscopic Review Indicated or Ordered Urine RBC 1 0 - 2 /HPF Urine WBC 2 0 - 2 /HPF 05/18/2016 12:58 AM HEAD GAUGE UNIT OPERATOR [facility] HISTORICAL RESULTS Urine Bacteria Mod /HPF 05/18/2016 12:58 AM HEAD GAUGE UNIT OPERATOR [facility] HISTORICAL RESULTS Urine Mucus RARE /LPF 05/18/2016 12:58 AM HEAD GAUGE UNIT OPERATOR [facility] HISTORICAL RESULTS Ur Squamous Epith Cells Rare /LPF 05/18/2016 12:58 AM HEAD GAUGE UNIT OPERATOR [facility] HISTORICAL RESULTS 05/18/2016 12:1 5 AM HEAD GAUGE UNIT OPERATOR 05/18/2016 12:41 AM HEAD GAUGE UNIT OPERATOR Narrative [facility] HISTORICAL RESULTS - 05/18/2016 12:58 AM HEAD GAUGE UNIT OPERATOR us Zachery Sullivan MD LAB MICROBIOLOGY - GENER AL ORDERABLES Final Result [facility] HISTORICAL RESULTS documented in this encounter Visit Diagnoses Diagnosis False labor before 37 completed weeks of gestation 36 weeks gestation of documented in this encounter
--- OUTSIDE RECORDS SUMMARY | 2024-03-15 14:58 | XMS_ITS | Encounter Summary ---
Author Organization [facility] Healthcare Address [address] [place] [address] Care Team Providers Care Luggage Attendant Name Role Phone Unavailable Primary Care Provider Unavailabl e Encounter Details Date Type Department Care Team (Latest Contact Info) Description 08/29/2017 7:08 AM CDT Hospital Encounter [facility] Tim Loera MD [address] [place] [id number] Mass of lower outer quadrant of right breast Social History Tobacco Use Types Packs/Day Years [...] Procedure Name Priority Date/Time Associated Diagnosis Comments GENERAL RADIOLOGY REPORT 08/30/2017 12:00 AM CDT SCAN - PATHOLOGY 08/30/2017 12:0 0 AM CDT US GUIDED BREAST BIOPSY ADDITIONAL Routine 08/29/2017 7:13 AM CDT US GUIDED BREAST BIOPSY SENTINEL NODE CORE SUPERFICIAL BREAST RELATED Routine 08/29/2017 7:10 AM CDT GENERAL RADIOLOGY REPORT 08/29/2017 12:00 AM CDT GENERAL RADIOLOGY REPORT 08/29/2017 12:00 AM CDT documented in this encounter Results * SCAN - PATHOLOGY (08/30/2017 12:00 AM CDT) Narrative 08/30/2017 12:00 AM CDT Ordered by an unspecified provider. us Historical Provider Final Res ult * GENERAL RADIOLOGY REPORT (08/30/2017 12:00 AM CDT) Anatomical Region Laterality Modality Radiographic Jaelyn ging Narrative 08/30/2017 12:00 AM CDT Ordered by an unspecified provider. us Historical Provider IMG XR PROCEDURES Final R esult * US GUIDED BREAST BIOPSY ADDITIONAL (08/29/2017 7:13 AM CDT) Anatomical Region Laterality Modality Breast N/A Ultrasound 08/29/2017 7:13 AM CDT Impressions 08/29/2017 9:27 AM CDT Ultrasound guided core biopsy of 2 masses at 7 o'clock in the right breast performed by Dr. Loera. THIS IS AN ELECTRONICALLY VERIFIED REPORT 08/29/2017 9:23 AM: ??Maverick Smith M.D. ?? Maverick Smith M.D. [place]:ar 09:23 AM 09:23 AM [facility] [EOD] Narrative 08/29/2017 9:27 AM CDT EXAMINATION: RIGHT BREAST ULTRASOUND GUIDED CORE BIOPSY x2 HISTORY: 16-year-old young woman with 2 low suspicion right breast masses. TECHNIQUE: The procedure was performed by Dr. Loera. ??Please refer to the operative report for technical details. FINDINGS: Comparison 07/11/2017. ??Ultrasound images redemonstrated the adjacent masses at 7 o'clock. ??The biopsy needles were at these sites. Post procedural mammography was not performed. Procedure Note Provider, MD Markus - 08/09/2020 EXAMINATION: RIGHT BREAST ULTRASOUND GUIDED CORE BIOPSY x2 HISTORY: 16-year-old young woman with 2 low suspicion right breast masses. TECHNIQUE: The procedure was performed by Dr. Loera. Please refer tothe operative report for technical details. FINDINGS: Comparison 07/11/2017. Ultrasound images redemonstrated theadjacent masses at 7 o'clock. The biopsy needles were at these sites. Post procedural mammography was not performed. IMPRESSION: Ultrasound guided core biopsy of 2 masses at 7 o'clock in the right breast performed by Dr. Loera. THIS IS AN ELECTRONICALLY VERIFIED REPORT 08/29/2017 9:23 AM: Maverick Smith M.D. Maverick Smith M.D. [place] 09:23 AM 09:23 AM [facility] [EOD] Tim Loera MD IMG MAMMO PROCEDURES Final Result * US Guided Biopsy Sentinal Node Core Superficial Not FNA Breast Related (08/29/2017 7:10 AM CDT) Anatomical Region Laterality Modality Breast N/A Ultrasound 08/29/2017 7:10 AM CDT Impressions 08/29/2017 9:26 AM CDT Ultrasound guided core biopsy of 2 masses at 7 o'clock in the right breast performed by Dr. Loera. THIS IS AN ELECTRONICALLY VERIFIED REPORT 08/29/2017 9:23 AM: ??Maverick Smith M.D. ?? Maverick Smith M.D. NH:[place] 09:23 AM 09:23 AM [facility] [EOD] Narrative 08/29/2017 9:26 AM CDT EXAMINATION: RIGHT BREAST ULTRASOUND GUIDED CORE BIOPSY x2 HISTORY: 16-year-old young woman with 2 low suspicion right breast masses. TECHNIQUE: The procedure was performed by Dr. Loera. ??Please refer to the operative report for technical details. FINDINGS: Comparison 07/11/2017. ??Ultrasound images redemonstrated the adjacent masses at 7 o'clock. ??The biopsy needles were at these sites. Post procedural mammography was not performed. Procedure Note Provider, Markus, - 08/09/2020 EXAMINATION: RIGHT BREAST ULTRASOUND GUIDED CORE BIOPSY x2 HISTORY: 16-year-old young woman with 2 low suspicion right breast masses. TECHNIQUE: The procedure was performed by Dr. Loera. Please refer tothe operative report for technical details. FINDINGS: Comparison 07/11/2017. Ultrasound images redemonstrated theadjacent masses at 7 o'clock. The biopsy needles were at these sites. Post procedural mammography was not performed. IMPRESSION: Ultrasound guided core biopsy of 2 masses at 7 o'clock in the right breast performed by Dr. Loera. THIS IS AN ELECTRONICALLY VERIFIED REPORT 08/29/2017 9:23 AM: Maverick Smith M.D. Maverick Smith M.D. NH:[place] 09:23 AM 09:23 AM [facility] [EOD] Tim Loera MD [employer] MAMMO PROCEDURES Final Result * GENERAL RADIOLOGY REPORT (08/29/2017 12:00 AM CDT) Anatomical Region Laterality Modality Radiographic Jaelyn ging Narrative 08/29/2017 12:00 AM CDT Ordered by an unspecified provider. Historical Provider MD REDDY XR PROCEDURES Final R esult * GENERAL RADIOLOGY REPORT (08/29/2017 12:00 AM CDT) Anatomical Region Laterality Modality Radiographic Jaelyn ging Narrative 08/29/2017 12:00 AM CDT Ordered by an unspecified provider. us Historical Provider MD REDDY XR PROCEDURES Final R esult documented in this encounter Visit Diagnoses Diagnosis Mass of lower outer quadrant of right breast documented in this encounter
--- OUTSIDE RECORDS SUMMARY | 2024-03-15 14:58 | XMS_ITS | Encounter Summary ---
Author Organization [facility] Healthcare Address [address] [place] [address] Care Team Providers Care Chemistry Quality Control Technician Name Role Phone Unavailable Primary Care Provider Unavailabl e Encounter Details Date Type Department Care Team (Latest Contact Info) Description 06/07/2016 9:55 PM CDT - 06/10/2016 3:13 PM CDT Hospital Encounter [facility] Leyla Noble MD [address] [place] [address] Diseases of digestive system complicating childbirth; Anxiety disorder; Major depressive disorder, single episode; Other mental disorders complicating childbirth; Uncomplicated asthma; Gastro-esophageal reflux disease without esophagitis; Single live ; 39 weeks gestation of ; Allergy status to other antibiotic agents status; Diseases of respiratory system complicating childbirth Social History Tobacco Use Types Packs/Day Years Used Date Smoking Tobacco: Never Assessed Comments Unknown Sex and Gender Information Value Date Recorded Sex Assigned at Not on file Legal Sex Female 12:21 PM CDT Gender Identity Not on file Sexual Orientation Not on file documented as of this encounter Last Filed Vital Signs Vital Sign Reading Time Taken Comments Blood Pressure 122/69 06/08/2016 10:55 AM CDT Pulse 117 06/08/2016 10:55 AM CDT Temperature 36.8 ??C (98.3 ??F) 06/08/2016 10:55 AM C DT Respiratory Rate - - Oxygen Saturation 97% 06/08/2016 10:55 AM CDT Inhaled Oxygen Concentration - - Weight 54.9 kg (121 lb) 06/08/2016 10:55 AM CDT Height 160 cm (5' 3 ) 06/08/2016 10:55 AM CDT Body Mass Index 21.43 06/08/2016 10:55 AM CDT Body Mass Index Percentile 53.47% 06/08/2016 10: 55 AM CDT Growth Chart: [facility] (Girls, 2- 20 Years) documented in this encounter Plan of Treatment Not on file documented as of this encounter Procedures Procedure Name Priority Date/Time Associated Diagnosis Comments HEMOGLOBIN AND HEMATOCRIT Routine 06/09/2016 6:15 AM CDT BLOOD GAS, ARTERIAL, CORD Routine 06/08/2016 5:17 PM CDT PROCEDURE - RESULT 06/08/2016 12 :00 AM CDT CBC WITH AUTO DIFFERENTIAL Routine 06/07/2016 10:35 PM CDT RPR Routine 06/07/2016 10:35 PM CDT DRUGS OF ABUSE SCREEN, URINE WITHOUT CONFIRMATION Routine 06/07/2016 10:00 PM CDT documented in this encounter Results * Hemoglobin and hematocrit (06/09/2016 6:15 AM CDT) Hemoglobin 11.6 11.0 - 15.0 g/dl 06/09/2016 6:[address] [facility] HISTORICAL RESULTS Hct 36.0 33.0 - 43.0 % 06/09/2016 6:[address] [facility] HISTORICAL RESULTS 06/09/2016 6:15 AM CDT 06/09/2016 6:22 AM CDT us Asia Dewey MD LAB BLOOD ORDERABLES Estefany lindsey Result [facility] HISTORICAL RESULTS * (ABNORMAL) Blood gas, arterial, cord (06/08/2016 5:17 PM CDT) Cord ABG pH 7.232 7.20 - 7.34 06/08/2016 5:[address] [facility] HISTORICAL RESULTS Cord ABG pCO2 59.5 39.2 - 61.4 mmHg 06/08/2016 5:[address] [facility] HISTORICAL RESULTS Cord ABG pO2 21.7(H) 9 - 19 mmHg 06/08/2016 5:[address] [facility] HISTORICAL RESULTS Cord ABG HCO3 24.1 18.4 - 25.6 mmol/L 06/08/2016 5:[address] [facility] HISTORICAL RESULTS Cord ABG Base Excess -4.5 -5.5 - 0.1 mmol/L 06/08/2016 5:[address] [facility] HISTORICAL RESULTS Cord ABG O2 Sat 33.7(L) 47 - 67 % 06/08/2016 5:[address] [facility] HISTORICAL RESULTS Distribution Operations Supervisor ID SR 06/08/2016 5:[address] [facility] HISTORICAL RESULTS BLOOD GAS COMMENTS RAN BY CBL 06/08/2016 5:[address] [facility] HISTORICAL RESULTS 06/08/2016 5:17 PM CDT 06/08/2016 5:34 PM CDT us Leyla Noble MD LAB BLOOD ORDERABLES Final Resu lt [facility] HISTORICAL RESULTS * PROCEDURE - RESULT (06/08/2016 12:00 AM CDT) Narrative 06/08/2016 12:00 AM CDT Ordered by an unspecified provider. us Historical Provider Final Res ult * RPR, serum (06/07/2016 10:35 PM CDT) Treponemal IgG NONREACTIVE NONREACTIVE 06/09/19 5:[address] [facility] HISTORICAL RESULTS Comment: [employer] Centaur immunoassay to determine antibodies to Treponema pallidum. 06/07/2016 10:3 5 PM CDT 06/08/2016 12:34 AM CDT us Leyla Noble MD LAB MI[facility]OLOGY - [facility] Final Result [facility] HISTORICAL RESULTS * (ABNORMAL) CBC with auto differential (06/07/2016 10:35 PM CDT) WBC 11.9(H) 4.6 - 10.2 x10 3/ul 06/08/2016 12:38 AM CDT [employer] HISTORICAL RESULTS RBC 4.50 3.76 - 4.80 x10 6/ul 06/08/2016 12:38 AM CDT [facility] [employer] HISTORICAL RESULTS Hemoglobin 12.1 11.0 - 15.0 g/dl 06/08/2016 12:38 AM CDT [employer] HISTORICAL RESULTS Hct 37.8 33.0 - 43.0 % 06/08/2016 12:38 AM CDT [employer] HISTORICAL RESULTS MCV 84.0 80.0 - 97.0 fl 06/08/2016 12:38 AM CDT [employer] HISTORICAL RESULTS MCH 26.9(L) 27.0 - 31.2 pg 06/08/2016 12:38 AM CDT [employer] HISTORICAL RESULTS MCHC 32.0 31.8 - 35.4 g/dl 06/08/2016 12:38 AM CDT [employer] HISTORICAL RESULTS RDW 16.0(H) 11.6 - 14.8 % 06/08/2016 12:38 AM CDT [employer] HISTORICAL RESULTS Plt Count 175 124 - 400 x10 3/ul 06/08/2016 12:38 AM CDT [employer] HISTORICAL RESULTS MPV 11.7(H) 7.4 - 10.4 fl 06/08/2016 12:38 AM CDT [employer] HISTORICAL RESULTS Neut % 72.4 37.0 - 85.0 % 06/08/2016 12:38 AM CDT [employer] HISTORICAL RESULTS Immature Gran % 0.8 0.0 - 3.0 % 06/08/2016 12:38 AM CDT [facility] [employer] HISTORICAL RESULTS Lymph % 18.0 5.0 - 45.0 % 06/08/2016 12:38 AM CDT [facility] [employer] HISTORICAL RESULTS Angelina % 7.5 3.0 - 15.0 % 06/08/2016 12:38 AM CDT [employer] HISTORICAL RESULTS Eos % 1.0 0.0 - 7.0 % 06/08/2016 12:[address] [facility] HISTORICAL RESULTS Baso % 0.3 0.0 - 2.0 % 06/08/2016 12:[address] [facility] HISTORICAL RESULTS Absolute Neuts (auto) 8.7 1.7 - 8.7 x10 3/ul 06/08/2016 12:[address] [facility] HISTORICAL RESULTS Immature Gran # 0.1 0.0 - 0.3 x10 3/ul 06/08/2016 12:[address] [facility] HISTORICAL RESULTS Absolute Lymphs (auto) 2.1 0.2 - 4.6 x10 3/ul 06/08/2016 12:[address] [facility] HISTORICAL RESULTS Absolute Monos (auto) 0.9 0.1 - 1.5 x10 3/ul 06/08/2016 12:[address] [facility] HISTORICAL RESULTS Absolute Eos (auto) 0.1 0.0 - 0.7 x10 3/ul 06/08/2016 12:[address] [facility] HISTORICAL RESULTS Absolute Basos (auto) 0.0 0.0 - 0.2 x10 3/ul 06/08/2016 12:[address] [facility] HISTORICAL RESULTS 06/07/2016 10:3 5 PM CDT 06/08/2016 12:34 AM CDT us Leyla Noble MD LAB BLOOD ORDERABLES Final Resu lt [facility] HISTORICAL RESULTS * Drug Screen, Urine (06/07/2016 10:00 PM CDT) Ur Amphetamine Screen NEGATIVE NEGATIVE 06/08/2016 12:[address] [facility] HISTORICAL RESULTS Comment: Cutoff Limit: ??1000 ng/mL ??Detects MDMA, [...] Morphine, Codeine, Ethyl Morphine, ?Diacetylmorphine, 6-Acetylmorphine, Dihydrocodeine, ?[id number] and Hydrocodone Ur Oxycodone Screen NEGATIVE NEGATIVE 06/08 12:01 AM [facility] HISTORICAL RESULTS Comment:Cutoff Limit: 100 ng /mL Urine Creatinine/MONICA 31.0 mg/dL Comment:If Creatinine is < 4 0 mg/dL, recollection is suggested. 06/07/2016 10:0 0 PM CDT 06/07/2016 11:43 PM [facility] Narrative [facility] HISTORICAL RESULTS - 06/08/2016 12:01 AM CDT Collected By NW us Leyla Noble MD LAB URINE ORDERABLES Final Resu lt [facility] HISTORICAL RESULTS documented in this encounter Visit Diagnoses Diagnosis Diseases of digestive system complicating childbirth Anxiety disorder Anxiety state, unspecified Major depressive disorder, single episode Major depressive disorder, single episode, unspecified Other mental disorders complicating childbirth Uncomplicated asthma Gastro-esophageal reflux disease without esophagitis Single live 39 weeks gestation of Allergy status to other antibiotic agents status Diseases of respiratory system complicating childbirth documented in this encounter
--- OUTSIDE RECORDS SUMMARY | 2024-03-15 14:58 | XMS_ITS | Encounter Summary ---
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 ??Options of ultrasound-guided needle biopsy versus 6 month follow-up ultrasound were discussed with the patient. ??The patient voiced preference for biopsy of both masses, which is therefore recommended. 2. No suspicious sonographic finding is evident within the subareolar right breast which would account for the patient's nonbloody nipple discharge. ??Given the nonbloody nature of the discharge as well as the lack of ??suspicious sonographic findings, this is most likely benign (possibly related to the patient's reported status). ??Any further assessment should be based on clinical findings. ?? 3. No evidence of right axillary lymphadenopathy. These results and recommendations were discussed with the patient. ??The ordering clinician will be contacted, and the patient will be notified of the date of her scheduled appointment/procedure. Electronically signed by: Tanner Saenz M.D. ?? md/:07/11/2017 09:36:49 ?? Appliance Service Technician: Brittany Tolbert [facility] letter sent: Abnormal Exam ?? Reading location: [facility] Ultrasound BI-RADS: 4a Suspicious abnormality - low suspicion for malignancy [EOD] Narrative 07/11/2017 9:37 AM CDT - US ULTRASOUND OF RIGHT BREAST: 07/11/2017 CLINICAL: 16-year-old female presents for evaluation of a palpable right breast lump, 1st noticed by the patient at age 11. ??Patient also complains of yellow/white (nonbloody) right nipple discharge. She is reportedly . No personal history of breast cancer. ??Reported family history of breast cancer involving paternal aunt (age 30) and paternal grandmother (age 50). ?? COMPARISONS: No prior exams were available for comparison. Real-time and Doppler ultrasound of the right breast were performed. ?? FINDINGS: Targeted sonographic evaluation of the right breast palpable area of concern at 7 o'clock, 3-4 centimeter from the nipple demonstrates 2 adjacent similar appearing oval circumscribed hypoechoic masses measuring 1.6 x 0.9 x 1.7 cm and 2.4 x 1.1 x 2.4 cm, respectively. Neither mass demonstrates significant internal blood flow or posterior acoustic shadowing. ?? Sonographic evaluation of the subareolar right breast demonstrates no discernible abnormality. ?? Sonographic evaluation of the right axilla reveals no suspicious lymphadenopathy. Procedure Note Provider, MD Markus - 08/09/2020 - US ULTRASOUND OF RIGHT BREAST: 07/11/2017 CLINICAL: 16-year-old female presents for evaluation of a palpable rightbreast lump, 1st noticed by the patient at age 11. Patient also complains of yellow/white (nonbloody) right nipple discharge. She is reportedly . No personal history of breast cancer. Reported family history of breast cancer involving paternal aunt (age 30) and paternal grandmother (age 50). COMPARISONS: No prior exams were available for comparison. Real-time and Doppler ultrasound of the right breast were performed. FINDINGS: Targeted sonographic evaluation of the right breast palpable area of concern at 7 o'clock, 3-4 centimeter from the nipple demonstrates 2adjacent similar appearing oval circumscribed hypoechoic masses measuring 1.6 x0.9 x 1.7 cm and 2.4 x 1.1 x 2.4 cm, respectively. Neither mass demonstrates significant internal blood flow or posterior acoustic shadowing. Sonographic evaluation of the subareolar right breast demonstrates no discernible abnormality. Sonographic evaluation of the right axilla reveals no suspicious lymphadenopathy. IMPRESSION: BIRADS 4A:SUSPICIOUS OF MALIGNANCY - FOLLOW-UP RECOMMENDED 1. 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 Options of ultrasound-guided needlebiopsy versus 6 month follow-up ultrasound were discussed with the patient. The patient voiced preference for biopsy of both masses, which is therefore recommended. 2. No suspicious sonographic finding is evident within the subareolarright breast which would account for the patient's nonbloody nipple discharge.Given the nonbloody nature of the discharge as well as the lack of suspicious sonographic findings, this is most likely benign (possibly related to the patient's reported status). Any further assessment should bebased on clinical findings. 3. No evidence of right axillary lymphadenopathy. These results and recommendations were discussed with the patient. The ordering clinician will be contacted, and the patient will be notified ofthe date of her scheduled appointment/procedure. Electronically signed by: Tanner Saenz M.D., md/:07/11/2017 09:36:49 Appliance Service Technician: [facility] letter sent: Abnormal Exam Reading location: [facility] Ultrasound BI-RADS: 4a Suspicious abnormality - low suspicion formalignancy [EOD] us Castro Gordon MD IMG MAMMO PROCEDURES Final Result * GENERAL RADIOLOGY REPORT (07/11/2017 12:00 AM CDT) Anatomical Region Laterality Modality Radiographic Jaelyn ging Narrative 07/11/2017 12:00 AM CDT Ordered by an unspecified provider. 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
--- OUTSIDE RECORDS SUMMARY | 2024-03-15 14:58 | XMS_ITS | Encounter Summary ---
Author Organization [facility] Healthcare Address [address] [place] [address] Care Team Providers Care Harness Preparer Name Role Phone Unavailable Primary Care Provider Unavailabl e Encounter Details Date Type Department Care Team (Latest Contact Info) Description 04/26/2016 12:49 PM AEROSPACE ENGINEER - 04/26/2016 2:40 PM AEROSPACE ENGINEER Hospital Encounter [facility] [place], DO [address] [place] [address] Other specified diseases and conditions complicating , childbirth and the puerperium; 33 weeks gestation of Social History Tobacco Use [...] Sign Reading Time Taken Comments Blood Pressure 115/72 04/26/2016 12:55 PM AEROSPACE ENGINEER Pulse 104 04/26/2016 12:55 PM AEROSPACE ENGINEER Temperature 36.6 ??C (97.8 ??F) 04/26/2016 12:[address] Respiratory Rate - - Oxygen Saturation 100% 04/26/2016 12:55 PM AEROSPACE ENGINEER Inhaled Oxygen Concentration - - Weight 49.9 kg (110 lb) 04/26/2016 12:55 PM AEROSPACE ENGINEER Height 160 cm (5' 3 ) 04/26/2016 12:55 PM AEROSPACE ENGINEER Body Mass Index 19.49 04/26/2016 12:55 PM AEROSPACE ENGINEER Body Mass Index Percentile 27.62% 04/26/2016 12: 55 PM AEROSPACE ENGINEER Growth Chart: [facility] (Girls, 2- 20 Years) documented in this encounter Plan of Treatment Not on file documented as of this encounter Visit Diagnoses Diagnosis Other specified diseases and conditions complicating , childbirth and the puerperium 33 weeks gestation of documented in this encounter
--- OUTSIDE RECORDS SUMMARY | 2024-03-15 14:58 | XMS_ITS | Encounter Summary ---
Author Organization [facility] Healthcare Address [address] [place] [address] Care Team Providers Care Qc Lab Technician Name Role Phone Shana Easton MD Primary Care Provider [phone] Encounter Details Date Type Department Care Team (Latest Contact Info) Description 05/05/2018 1:13 PM CAREER DISCOVERY TEACHER - 05/05/2018 4:25 PM CAREER DISCOVERY TEACHER Hospital Encounter [facility] Emergency Department [address] [place] [address] Tania Luna, [employer] [address] [facility] [place] [address] Discharge Disposition: Discharge to home or self [...] Sign Reading Time Taken Comments Blood Pressure 127/85 05/05/2018 1:45 PM CAREER DISCOVERY TEACHER Pulse 80 05/05/2018 1:45 PM CAREER DISCOVERY TEACHER Temperature 36.5 ??C (97.7 ??F) 05/05/2018 1:45 PM CS T Respiratory Rate - - Oxygen Saturation 100% 05/05/2018 1:45 PM CAREER DISCOVERY TEACHER Inhaled Oxygen Concentration - - Weight 50.6 kg (111 lb 8.9 oz) 05/05/2018 1:45 P M CAREER DISCOVERY TEACHER Height 160 cm (5' 3 ) 05/05/2018 1:45 PM CAREER DISCOVERY TEACHER Body Mass Index 19.76 05/05/2018 1:45 PM CAREER DISCOVERY TEACHER documented in this encounter Discharge Disposition Disposition Code Departure Means Destination Discharge to home or self care documented in this encounter Plan of Treatment Not on file documented as of this encounter Procedures Procedure Name Priority Date/Time Associated Diagnosis Comments XR ABDOMEN AP 1 VIEW Routine 05/05/2018 3:23 PM CAREER DISCOVERY TEACHER CBC WITH AUTO DIFFERENTIAL Routine 05/05/2018 2:06 PM CAREER DISCOVERY TEACHER COMPREHENSIVE METABOLIC PANEL Routine 05/05/2018 2:06 PM CAREER DISCOVERY TEACHER URINALYSIS AND REFLEX TO MICROSCOPIC AND CULTURE Routine 05/05/2018 1:50 PM CAREER DISCOVERY TEACHER documented in this encounter Results * XR Abdomen Ap 1 Vw (05/05/2018 3:23 PM CAREER DISCOVERY TEACHER) Anatomical Region Laterality Modality Body, Abdomen N/A Radiographic Jaelyn ging 05/05/2018 3:23 PM CAREER DISCOVERY TEACHER Impressions 05/05/2018 3:33 PM CAREER DISCOVERY TEACHER ??Nonspecific bowel gas pattern with moderate stool burden. THIS IS AN ELECTRONICALLY VERIFIED FINAL REPORT 05/05/2018 3:30 PM - Electronically signed by Randall Beauchamp M.D. AG: CEASAR D: ??05/05/2018 3:30 PM T: ??05/05/2018 3:30 PM Report ID: [id number] Reading Location: ??[id number] [EOD] Narrative 05/05/2018 3:33 PM CAREER DISCOVERY TEACHER EXAM DESCRIPTION: ??Abdomen 1 View REASON FOR STUDY: ??Left lower quadrant abdominal pain and bloating x2 weeks. TECHNIQUE: ??Supine radiographic view of the abdomen acquired. COMPARISON: ??None FINDINGS: BOWEL GAS PATTERN: There is a moderate amount of stool seen within a nondilated colon. ??No dilated small bowel loops are seen to suggest small bowel obstruction. SOFT TISSUES: No significant abnormal calcifications. BONES: No significant abnormality. OTHER: Intrauterine device is noted within the pelvis. Procedure Note Provider, MD Markus - 08/09/2020 EXAM DESCRIPTION: Abdomen 1 View REASON FOR STUDY: Left lower quadrant abdominal pain and bloating [id number]. TECHNIQUE: Supine radiographic view of the abdomen acquired. COMPARISON: None FINDINGS: BOWEL GAS PATTERN: There is a moderate amount of stool seen within a nondilated colon. No dilated small bowel loops are seen to suggest small bowel obstruction. SOFT TISSUES: No significant abnormal calcifications. BONES: No significant abnormality. OTHER: Intrauterine device is noted within the pelvis. IMPRESSION: Nonspecific bowel gas pattern with moderate stool burden. THIS IS AN ELECTRONICALLY VERIFIED FINAL REPORT 05/05/2018 3:30 PM - Electronically signed by Randall Beauchamp M.D. AG: CEASAR Report ID: [id number] Reading Location: [place] [address] [EOD] Tania Luna [employer] IMG XR PROCEDURES Final Resu lt * (ABNORMAL) Comprehensive metabolic panel (05/05/2018 2:06 PM CAREER DISCOVERY TEACHER) Sodium 143 135 - 145 mmol/L 05/05/2018 2:43 PM CAREER DISCOVERY TEACHER [email or web address] HISTORICAL RESULTS Potassium 3.9 3.3 - 5.1 mmol/L 05/05/2018 2:43 PM [facility] HISTORICAL RESULTS Chloride 105 96 - 108 mmol/L 05/05/2018 2:43 PM [facility] [employer] HISTORICAL RESULTS Carbon Dioxide 27 22 - 32 mmol/L 05/05/2018 2:43 PM [facility] [employer] HISTORICAL RESULTS Anion Gap 11 7 - 16 05/05/2018 2:43 PM [facility] HISTORICAL RESULTS Glucose 82 70 - 100 mg/dL 05/05/2018 2:43 PM [facility] HISTORICAL RESULTS BUN 10 6 - 20 mg/dL 05/05/2018 2:43 PM CAREER DISCOVERY TEACHER [facility] [employer] HISTORICAL RESULTS Creatinine 0.4(L) 0.5 - 1.1 mg/dL 05/05/2018 2:43 PM [facility] [employer] HISTORICAL RESULTS Comment: NOTE: Estimated GFR (Cockroft-Gault) will NOT be calculated unless patient Height and Weight were entered. Also, Kidney Disease Stage (GFR) and Estimated GFR (Cockroft-Gault) will NOT be calculated if Creatinine result is <0.2. Kidney Disease Stage > 90 mL/MIN 05/05/2018 2:43 PM [facility] HISTORICAL RESULTS Comment: NOTE; ??The GFR is an estimated [...] or on dialysis @ Est GFR (Cockcroft-G) 181 ml/MIN 05/05/2018 2:43 PM [facility] HISTORICAL RESULTS Comment: Estimated GFR(Cockroft-Gault)is used to calculate patient medication dosage Calcium 9.4 8.6 - 10.0 mg/dL 05/05/2018 2:43 PM [facility] HISTORICAL RESULTS Total Protein 7.4 6.4 - 8.3 g/dL 05/05/2018 2:43 PM [facility] HISTORICAL RESULTS Albumin 4.6 3.5 - 5.2 g/dL 05/05/2018 2:43 PM [facility] HISTORICAL RESULTS Globulin 2.8 2.3 - 3.5 gm/dL 05/05/2018 2:43 PM [facility] HISTORICAL RESULTS Albumin/Globulin Ratio 1.6 1.1 - 1.8 05/05/2018 2:43 PM [email or web address] [employer] HISTORICAL RESULTS Total Bilirubin < 0.2 0.0 - 1.2 mg/dL 05/05/2018 2:43 PM [facility] HISTORICAL RESULTS AST 14 0 - 32 U/L ALT 22 0 - 33 U/L Alkaline Phosphatase 80 35 - 104 U/L 05/05/2018 2:43 PM [facility] [employer] [facility] HISTORICAL RESULTS 05/05/2018 2:06 PM CAREER DISCOVERY TEACHER 05/05/2018 2:14 PM CAREER DISCOVERY TEACHER Tania Luna [employer] LAB BLOOD ORDERABLES Final R esult [facility] HISTORICAL RESULTS * (ABNORMAL) CBC with auto differential (05/05/2018 2:06 PM [facility]) WBC 7.5 3.8 - 9.9 X10 3/ul RBC 4.59 3.90 - 5.20 x10 6/ul 05/05/2018 2:17 PM [facility] [employer] [facility] HISTORICAL RESULTS Hemoglobin 12.2 11.9 - 15.5 g/dL Hct 40.1 35.6 - 45.5 % MCV 87.4 81.3 - 96.4 fl MCH 26.6(L) 27.1 - 33.3 pg MCHC 30.4(L) 32.3 - 35.7 g/dl 05/05/2018 2:17 PM [facility] RES[facility] RDW 13.9 11.1 - 14.9 % 05/05/2018 2:17 PM [facility] [employer] [facility] HISTORICAL RESULTS Plt Count 260 150 - 400 x10 3/ul 05/05/2018 2:17 PM [facility] [employer] [facility] HISTORICAL RESULTS MPV 10.6 9.1 - 12.3 fl 05/05/2018 2:17 PM [facility] [employer] [facility] HISTORICAL RESULTS Neut % 69.3 % Immature Gran % 0.1 % 9 2:17 PM [facility] HISTORICAL RESULTS Lymph % 20.8 % [place] % 7.0 % Eos % 2.4 % Baso % 0.4 % Absolute Neuts (auto) 5.2 1.7 - 6.5 x10 3/ul Immature Gran # 0.0 0.0 - 0.1 x10 3/ul Absolute Lymphs (auto) 1.6 0.8 - 3.3 x10 3/ul Absolute Monos (auto) 0.5 0.2 - 0.8 x10 3/ul Absolute Eos (auto) 0.2 0.0 - 0.5 x10 3/ul Absolute Basos (auto) 0.0 0.0 - 0.1 x10 3/ul Nucleat RBC Rel Count 0.0 #/100WBC Absolute Nucleated RBC 0.00 0.00 - 0.01 x10 3/ul Absolute Neutrophils 5200 200 - 8000 /ul 05/05/2018 2:06 PM CAREER DISCOVERY TEACHER 05/05/2018 2:14 PM CAREER DISCOVERY TEACHER us Tania Luna [employer] LAB BLOOD ORDERABLES Final R esult [facility] HISTORICAL RESULTS * (ABNORMAL) Urinalysis reflex to microscopic and culture (05/05/2018 1:50 PM [facility]) Ur Collection Type CLEAN CATCH Ur Culture Indicated? C&S NOT INDICATED Urine Color YELLOW YELLOW Urine Clarity CLEAR CLEAR Urine Glucose (UA) NORMAL NORMAL mg/dL Urine Bilirubin NEGATIVE NEGATIVE mg/dl Urine Ketones NEGATIVE NEGATIVE mg/dL Ur Specific [place] 1.010 1.005 - 1.025 Urine Blood >=1.0 NEGATIVE mg/dl Urine pH 7.0 5.0 - 8.0 Urine Protein NEGATIVE NEGATIVE mg/dL Urine Urobilinogen NORMAL NORMAL mg/dL Urine Nitrite NEGATIVE NEGATIVE Ur Leukocyte Esterase 25(H) NEGATIVE Sammie/ul Ur Microscopic Review Indicated or Ordered Urine RBC 2 0 - 2 /HPF Urine WBC 2 0 - 2 /HPF Urine Bacteria Rare /HPF Urine Mucus RARE /LPF Ur Squamous Epith Cells Rare /LPF 05/05/2018 2:13 PM CAREER DISCOVERY TEACHER [facility] HISTORICAL RESULTS 05/05/2018 1:50 PM CAREER DISCOVERY TEACHER 05/05/2018 2:03 PM CAREER DISCOVERY TEACHER Narrative [facility] HISTORICAL RESULTS - 05/05/2018 2:13 PM CAREER DISCOVERY TEACHER Indication(s) for ordering ? Other - enter in comments ?? us Tania Luna NP LAB MICROBIOLOGY - GENERAL O MAGALY Final Result [facility] HISTORICAL RESULTS documented in this encounter Visit Diagnoses Not on filedocumented in this encounter Care Teams Qc Lab Technician Relationship Specialty Start Date End Date Shana [place] MD [address] [address] PCP - General 05/05/18 12/30/20 documented as of this encounter
--- OUTSIDE RECORDS SUMMARY | 2024-03-15 14:58 | XMS_ITS | Encounter Summary ---
Author Organization [facility] Healthcare Address [address] [place] [address] Care Team Providers Care Electrician Wiring Name Role Phone Unavailable Primary Care Provider Unavailabl e Encounter Details Date Type Department Care Team (Late st Contact Info) Description 12/26/2017 7:02 PM CDT - 12/26/2017 8:42 PM CDT Hospital Encounter [facility] Markus Dinh Urinary tract infection; Hemorrhoids; Headache; Allergy status to other antibiotic agents status; Other prison (current) drug therapy Social History Tobacco Use [...] Sign Reading Time Taken Comments Blood Pressure 94/56 12/26/2017 7:06 PM CDT Pulse 74 12/26/2017 7:06 PM CDT Temperature 36.8 ??C (98.2 ??F) 12/26/2017 7:06 PM CD T Respiratory Rate - - Oxygen Saturation 99% 12/26/2017 7:06 PM CDT Inhaled Oxygen Concentration - - Weight 45.4 kg (100 lb 1.4 oz) 12/26/2017 7:06 P M CDT Height 160 cm (5' 3 ) 12/26/2017 7:06 PM CDT Body Mass Index 17.73 12/26/2017 7:06 PM CDT documented in this encounter Plan of Treatment Not on file documented as of this encounter Procedures Procedure Name Priority Date/Time Associated Diagnosis Comments URINALYSIS AND REFLEX TO MICROSCOPIC AND CULTURE Routine 12/26/2017 7:35 PM CDT CBC WITH AUTO DIFFERENTIAL Routine 12/26/2017 7:31 PM CDT COMPREHENSIVE METABOLIC PANEL Routine 12/26/2017 7:31 PM CDT documented in this encounter Results * (ABNORMAL) Urinalysis reflex to microscopic and culture (12/26/2017 7:35 PM CDT) Ur Collection Type CLEAN CATCH Ur Culture Indicated? C&S NOT INDICATED Urine Color YELLOW YELLOW Urine Clarity HAZY CLEAR Urine Glucose (UA) NORMAL NORMAL mg/dL Urine Bilirubin NEGATIVE NEGATIVE mg/dl Urine Ketones NEGATIVE NEGATIVE mg/dL Ur Specific [place] 1.010 1.005 - 1.025 Urine Blood 0.03(H) NEGATIVE mg/dl Urine pH 5.0 5.0 - 8.0 Urine Protein NEGATIVE NEGATIVE mg/dL Urine Urobilinogen NORMAL NORMAL mg/dL Urine Nitrite NEGATIVE NEGATIVE Ur Leukocyte Esterase 75(H) NEGATIVE Sammie/ul Ur Microscopic Review Indicated or Ordered 12/26/2017 8:06 PM CDT [facility] HISTORICAL RESULTS Urine RBC 2 0 - 2 /HPF 12/26/2017 8:06 PM CDT [facility] HISTORICAL RESULTS Urine WBC 5 0 - 2 /HPF 12/26/2017 8:06 PM CDT [facility] HISTORICAL RESULTS Urine Mucus Mod /LPF 12/26/2017 8:06 PM CDT [facility] HISTORICAL RESULTS Ur Squamous Epith Cells Mod /LPF 12/26/2017 8:06 PM CDT [facility] HISTORICAL RESULTS Ur Transition Epith Cell 1 /HPF 12/26/2017 8:06 PM CDT [facility] HISTORICAL RESULTS 12/26/2017 7:35 PM CDT 12/26/2017 7:43 PM CDT Narrative [facility] HISTORICAL RESULTS - 12/26/2017 8:06 PM CDT Indication(s) for ordering ? Dysuria ?? us Jacque Potter NP LAB MICROBIOLOGY - GENERAL ORDER LUTHER Final Result [facility] HISTORICAL RESULTS * (ABNORMAL) Comprehensive metabolic panel (12/26/2017 7:31 PM CDT) Sodium 140 135 - 145 mmol/L 12/26/2017 8:06 PM T [facility] HISTORICAL RESULTS Potassium 3.9 3.3 - 5.1 mmol/L 12/26/2017 8:06 PM T [facility] HISTORICAL RESULTS Chloride 102 96 - 108 mmol/L 12/26/2017 8:06 PM T [facility] HISTORICAL RESULTS Carbon Dioxide 27 22 - 32 mmol/L 12/26/2017 8:06 PM T [facility] HISTORICAL RESULTS Anion Gap 11 7 - 16 12/26/2017 8:06 PM T [facility] HISTORICAL RESULTS Glucose 96 70 - 100 mg/dL 12/26/2017 8:06 PM T [facility] HISTORICAL RESULTS BUN 10 6 - 20 mg/dL 12/26/2017 8:06 PM T [facility] HISTORICAL RESULTS Creatinine 0.6 0.5 - 1.1 mg/dL 12/26/2017 8:06 PM T [facility] HISTORICAL RESULTS Comment: NOTE: Estimated GFR (Cockroft-Gault) [...] or on dialysis @ Est GFR (Cockcroft-G) 108 ml/MIN Comment: Estimated GFR(Cockroft-Gault)is used to calculate patient medication dosage Calcium 9.3 8.6 - 10.0 mg/dL Total Protein 7.1 6.4 - 8.3 g/dL Albumin 4.9 3.5 - 5.2 g/dL Globulin 2.2(L) 2.3 - 3.5 gm/dL Albumin/Globulin Ratio 2.2(H) 1.1 - 1.8 12/26/2017 8:06 PM CDT [facility] HISTORICAL RESULTS Total Bilirubin 0.5 0.0 - 1.2 mg/dL 12/26/2017 8:06 PM CDT [facility] HISTORICAL RESULTS AST 12 0 - 32 U/L 12/26/2017 8:06 PM CDT [facility] HISTORICAL RESULTS ALT 13 0 - 33 U/L 12/26/2017 8:06 PM CDT [facility] HISTORICAL RESULTS Alkaline Phosphatase 80 35 - 104 U/L 12/26/2017 8:06 PM CDT [facility] HISTORICAL RESULTS 12/26/2017 7:31 PM CDT 12/26/2017 7:44 PM CDT us Jacque Potter NP LAB BLOOD ORDERABLES Final Resul t [facility] HISTORICAL RESULTS * (ABNORMAL) CBC with auto differential (12/26/2017 7:31 PM CDT) WBC 7.2 3.8 - 9.9 X10 3/ul 12/26/2017 7:49 PM CDT [facility] HISTORICAL RESULTS RBC 4.62 3.90 - 5.20 x10 6/ul 12/26/2017 7:49 PM T [facility] HISTORICAL RESULTS Hemoglobin 12.3 11.9 - 15.5 g/dL 12/26/2017 7:49 PM CDT [facility] HISTORICAL RESULTS Hct 39.1 35.6 - 45.5 % 12/26/2017 7:49 PM CDT [facility] HISTORICAL RESULTS MCV 84.6 81.3 - 96.4 fl 12/26/2017 7:49 PM CDT [facility] HISTORICAL RESULTS MCH 26.6(L) 27.1 - 33.3 pg 12/26/2017 7:49 PM CDT [facility] HISTORICAL RESULTS MCHC 31.5(L) 32.3 - 35.7 g/dl 12/26/2017 7:49 PM CDT [facility] HISTORICAL RESULTS RDW 16.0(H) 11.1 - 14.9 % Plt Count 248 150 - 400 x10 3/ul MPV 11.6 9.1 - 12.3 fl Neut % 61.7 % Immature Gran % 0.1 % 8 7:49 PM [facility] HISTORICAL RESULTS Lymph % 26.3 % [place] % 8.2 % Eos % 3.3 % Baso % 0.4 % Absolute Neuts (auto) 4.4 1.7 - 6.5 x10 3/ul Immature Gran # 0.0 0.0 - 0.1 x10 3/ul Absolute Lymphs (auto) 1.9 0.8 - 3.3 x10 3/ul Absolute Monos (auto) 0.6 0.2 - 0.8 x10 3/ul Absolute Eos (auto) 0.2 0.0 - 0.5 x10 3/ul Absolute Basos (auto) 0.0 0.0 - 0.1 x10 3/ul Nucleat RBC Rel Count 0.0 #/100WBC Absolute Nucleated RBC 0.00 0.00 - 0.01 x10 3/ul Absolute Neutrophils 4400 200 - 8000 /ul 12/26/2017 7:49 PM CDT [facility] HISTORICAL RESULTS 12/26/2017 7:31 PM CDT 12/26/2017 7:44 PM CDT us Jacque Potter NP LAB BLOOD ORDERABLES Final Resul t [facility] HISTORICAL RESULTS documented in this encounter Visit Diagnoses Diagnosis Urinary tract infection Urinary tract infection, site not specified Hemorrhoids Headache Allergy status to other antibiotic agents status Other ocean transportation intermediary (current) drug therapy documented in this encounter
--- OUTSIDE RECORDS SUMMARY | 2024-03-15 14:58 | XMS_ITS | Encounter Summary ---
Author Organization [facility] Healthcare Address [address] [place] [address] Care Team Providers Care Tubing Tester Name Role Phone Unavailable Primary Care Provider Unavailabl e Encounter Details Date Type Department Care Team (Latest Contact Info) Description 06/05/2017 10:56 PM CDT - 06/06/2017 12:36 AM CDT [facility] [address] [facility] [address] Hemorrhage in early ; Allergy status to other antibiotic agents status; 18 weeks gestation of ; Other detention (current) drug therapy Social History Tobacco Use [...] Sign Reading Time Taken Comments Blood Pressure 111/69 06/05/2017 11:00 PM CDT Pulse 91 06/05/2017 11:00 PM CDT Temperature 36.3 ??C (97.4 ??F) 06/05/2017 1 1:00 PM CDT Respiratory Rate - - Oxygen Saturation 100% 06/05/2017 11: 00 PM CDT Inhaled Oxygen Concentration - - Weight 45.4 kg (100 lb 1.4 oz) 06/06/19 18 11:00 PM CDT Height 160 cm (5' 3 ) 06/05/2017 11:00 PM CDT Body Mass Index 17.73 06/05/2017 11:00 PM CDT Body Mass Index Percentile 5.17% 06/05 11:00 PM CDT Growth Chart: [facility] (Girls, 2- 20 Years) documented in this encounter Plan of Treatment Not on file documented as of this encounter Procedures Procedure Name Priority Date/Time Associated Diagnosis Comments CBC WITH AUTO DIFFERENTIAL Routine 06/05/2017 11:15 PM CDT HCG, BLOOD, QUANTITATIVE Routine 06/05/2017 11:15 PM CDT COMPREHENSIVE METABOLIC PANEL Routine 06/05/2017 11:15 PM CDT UA WITH CULTURE REFLEX Routine 8 11:10 PM CDT documented in this encounter Results * (ABNORMAL) Comprehensive metabolic panel (06/05/2017 11:15 PM CDT) Sodium 139 135 - 145 mmol/L Potassium 3.6 3.3 - 5.1 mmol/L Chloride 99 96 - 108 mmol/L Carbon Dioxide 24 22 - 32 mmol/L Anion Gap 16 7 - 16 Glucose 80 70 - 100 mg/dL 06/06/2017 12:06 AM [facility] [employer] [facility] BUN 7 6 - 20 mg/dL Creatinine 0.4(L) 0.5 - 1.1 mg/dL Comment: NOTE: Estimated GFR (Cockroft-Gault) will NOT be calculated unless patient Height and Weight were entered. Also, Kidney Disease Stage (GFR) and Estimated GFR (Cockroft-Gault) will NOT be calculated if Creatinine result is <0.2. Kidney Disease Stage > 90 mL/MIN 06/06/2017 12:06 AM [facility] [employer] [facility] Comment: NOTE; ??The GFR is [...] or on dialysis @ Est GFR (Cockcroft-G) 163 ml/MIN 06/06/2017 12:06 AM [employer] [facility] Comment: Estimated GFR(Cockroft-Gault)is used to calculate patient medication dosage Calcium 9.3 8.6 - 10.0 mg/dL 06/06/2017 12:06 AM [facility] [employer] HISTORICAL RESULTS Total Protein 7.3 6.4 - 8.3 g/dL 06/06/2017 12:06 AM [facility] [employer] [facility] Albumin 4.1 3.5 - 5.2 g/dL 06/06/2017 12:06 AM [facility] [employer] [facility]ISTORICAL RESULTS Globulin 3.2 2.3 - 3.5 gm/dL 06/06/2017 12:06 AM [facility] [employer] [facility]IST[facility]ICAL RES[facility] Albumin/Globulin Ratio 1.3 1.1 - 1.8 06/06/2017 12:06 AM [facility] [employer] [facility] RES[facility] Total Bilirubin 0.2 0.0 - 1.2 mg/dL 06/06/2017 12:06 AM [employer] [facility] HISTORICAL RESULTS AST 11 0 - 32 U/L 06/06/2017 12:06 AM CDT [facility] HISTORICAL RESULTS ALT 10 0 - 33 U/L 06/06/2017 12:06 AM CDT [facility] HISTORICAL RESULTS Alkaline Phosphatase 54 35 - 104 U/L 06/06/2017 12:06 AM CDT [facility] HISTORICAL RESULTS 06/05/2017 11:1 5 PM CDT 06/05/2017 11:18 PM CDT us Zachery Nieves Amol LAB BLOOD ORDERABLES Fi nal Result [facility] HISTORICAL RESULTS * (ABNORMAL) CBC with auto differential (06/05/2017 11:15 PM CDT) WBC 7.1 3.5 - 10.5 x10 3/ul 06/05/2017 11:26 PM T [facility] HISTORICAL RESULTS RBC 4.46 3.76 - 4.80 x10 6/ul 06/05/2017 11:26 PM T [facility] HISTORICAL RESULTS Hemoglobin 12.9 11.0 - 15.0 g/dL 06/05/2017 11:26 PM T [facility] HISTORICAL RESULTS Hct 39.6 33.0 - 43.0 % 06/05/2017 11:26 PM T [facility] HISTORICAL RESULTS MCV 88.8 80.0 - 97.0 fl 06/05/2017 11:26 PM T [facility] HISTORICAL RESULTS MCH 28.9 27.0 - 31.2 pg 06/05/2017 11:26 PM CDT [facility] HISTORICAL RESULTS MCHC 32.6 31.8 - 35.4 g/dl 06/05/2017 11:26 PM T [facility] HISTORICAL RESULTS RDW 12.6 11.6 - 14.8 % 06/05/2017 11:26 PM T [facility] HISTORICAL RESULTS Plt Count 243 150 - 450 X10 3/ul 06/05/2017 11:26 PM T [facility] HISTORICAL RESULTS MPV 10.5(H) 7.4 - 10.4 fl 06/05/2017 11:26 PM T [facility] HISTORICAL RESULTS Neut % 64.7 37.0 - 85.0 % Immature Gran % 0.7 0.0 - 3.0 % Lymph % 22.4 5.0 - 45.0 % [place] % 9.1 3.0 - 15.0 % Eos % 2.7 0.0 - 7.0 % Baso % 0.4 0.0 - 2.0 % Absolute Neuts (auto) 4.6 1.7 - 8.7 x10 3/ul Immature Gran # 0.1 0.0 - 0.3 x10 3/ul Absolute Lymphs (auto) 1.6 0.2 - 4.6 x10 3/ul Absolute Monos (auto) 0.7 0.1 - 1.5 x10 3/ul Absolute Eos (auto) 0.2 0.0 - 0.7 x10 3/ul Absolute Basos (auto) 0.0 0.0 - 0.2 x10 3/ul Nucleat RBC Rel Count 0.0 0 - 3 #/100WBC Absolute Nucleated RBC 0.00 x10 3/ul Absolute Neutrophils 4700 200 - 8000 /ul 06/05/2017 11:1 5 PM CDT 06/05/2017 11:18 PM CDT us Zachery Carmichael LAB BLOOD ORDERABLES Fi nal Result [facility] HISTORICAL RESULTS * (ABNORMAL) hCG, blood, quantitative (06/05/2017 11:15 PM CDT) Beta HCG, Quant 6517.0(H) 0.0 - 1.0 mIU/mL 06/05/2017 11:52 PM CDT [facility] HISTORICAL RESULTS Comment: Weeks of preg ?BHCG ? Weeks of preg ? BHCG ?3 ? 5.8-71.2 ?10 ? 46,509-186,977 ?4 ? 9.5-750 ? 12 ? 27,832-210,612 ?5 ? 217-7,138 ? 14 ? 13,950-62,530 ?6 ? 158-31,795 ?15 ? 12,039-70,971 ?7 ?3,697-163,563 ?16 ?9,040-56,451 ?8 ? 32,065-149,571 ?17 ?8,175-55,868 ?9 ? 63,803-151,410 ?18 ?8,099-58,176 Post-menopause: ??0-8.3 ?METHOD: ??Moe ECLIA Intended for the early detection of . ? 06/05/2017 11:1 5 PM CDT 06/05/2017 11:18 PM CDT us Zachery Carmichael LAB BLOOD ORDERABLES Fi nal Result [facility] HISTORICAL RESULTS * (ABNORMAL) UA with Culture Reflex (06/05/2017 11:10 PM CDT) Ur Collection Type CLEAN CATCH Ur Culture Indicated? C&S NOT INDICATED Urine Color STRAW YELLOW Urine Clarity CLEAR CLEAR Urine Glucose (UA) NORMAL NORMAL mg/dL Urine Bilirubin NEGATIVE NEGATIVE mg/dl Urine Ketones NEGATIVE NEGATIVE mg/dL Ur Specific [place] 1.004(L) 1.005 - 1.025 Urine Blood NEGATIVE NEGATIVE mg/dl Urine pH 7.0 5.0 - 8.0 Urine Protein NEGATIVE NEGATIVE mg/dL Urine Urobilinogen NORMAL NORMAL mg/dL Urine Nitrite NEGATIVE NEGATIVE Ur Leukocyte Esterase NEGATIVE NEGATIVE Sammie/ul 06/05/2017 11:53 PM CDT [facility] HISTORICAL RESULTS Ur Microscopic Review Not Indicated 06/05/2017 11:53 PM CDT [facility] HISTORICAL RESULTS 06/05/2017 11:1 0 PM CDT 06/05/2017 11:18 PM CDT Narrative [facility] HISTORICAL RESULTS - 06/05/2017 11:53 PM CDT Indication(s) for ordering ? us Zachery Carmichael LAB URINE ORDERABLES Fi nal Result [facility] HISTORICAL RESULTS documented in this encounter Visit Diagnoses Diagnosis Hemorrhage in early Allergy status to other antibiotic agents status 18 weeks gestation of Other detention (current) drug therapy documented in this encounter
--- OUTSIDE RECORDS SUMMARY | 2024-03-15 14:58 | XMS_ITS | Encounter Summary ---
Author Organization [facility] Healthcare Address [address] [place] [address] Care Team Providers Care Regulatory Compliance Specialist Name Role Phone Unavailable Primary Care Provider Unavailabl e Encounter Details Date Type Department Care Team (Late st Contact Info) Description 09/23/2017 12:28 AM CDT - 09/23/2017 4:17 PM CDT Hospital Encounter [facility], Jennifer Mendez MD [address] [place] [address] False labor before 37 completed weeks of gestation in third trimester; 33 weeks gestation of Social History Tobacco [...] Sign Reading Time Taken Comments Blood Pressure 108/57 09/22/2017 11:25 AM CDT Pulse 101 09/22/2017 11:25 AM CDT Temperature 36.7 ??C (98.1 ??F) 09/22/2017 1 1:25 AM CDT Respiratory Rate - - Oxygen Saturation 95% 09/22/2017 11: 25 AM CDT Inhaled Oxygen Concentration - - Weight 50.5 kg (111 lb 3.9 oz) 09/23/19 18 11:25 AM CDT Height 160 cm (5' 3 ) 09/22/2017 11:25 AM CDT Body Mass Index 19.71 09/22/2017 11:25 AM CDT Body Mass Index Percentile 25.37% 09/22 11:25 AM CDT Growth Chart: [facility] (Girls, 2- 20 Years) documented in this encounter Plan of Treatment Not on file documented as of this encounter Procedures Procedure Name Priority Date/Time Associated Diagnosis Comments N. GONORRHOEAE DNA PROBE GENITAL OR URINE Routine 09/22/2017 1:05 PM CDT GROUP B STREPTOCOCCUS SCREEN PCR GEN LAB Routine 09/22/2017 6:23 AM CDT UA WITH CULTURE REFLEX Routine 8 3:45 AM CDT DRUGS OF ABUSE SCREEN, URINE WITHOUT CONFIRMATION Routine 09/22/2017 3:45 AM CDT MEMBRANE RUPTURE TEST Routine 09/22/2017 2:15 AM CDT documented in this encounter Results * N. gonorrhoeae DNA probe, genital or urine (09/22/2017 1:05 PM CDT) C. trachomatis RNA CT NOT DETECTED Comment:Chlamydia trachomati s is not detected. C. trachomatis RNA NG NOT DETECTED Comment:Neisseria gonorrhoea e is not detected. Chlamydia/GC Source URINE Comment: Xpert CT/NG Assay performance has not [...] to adverse medical, social or psychological consequences. 09/22/2017 1:05 PM CDT 09/22/2017 2:00 PM CDT Narrative [facility] HISTORICAL RESULTS - 09/22/2017 2:01 PM CDT Urine collection method First catch lessthan 50ml ?? Collected By DD Jennifer Villatoro MD LAB MICROBIOLOGY - GENE RAL ORDERABLES Final Result Performing Organization Address [facility] de Phone Number [facility] HISTORICAL RESULTS * Group B streptococcus PCR (09/22/2017 6:23 AM CDT) Strep B Ag NEGATIVE NEGATIVE Strep B culture NOT APPLICABLE 09/22/2017 6:23 AM CDT 09/22/2017 6:56 AM CDT Jennifer Villatoro MD LAB MICROBIOLOGY - GENE RAL ORDERABLES Final Result Performing Organization Address [facility] de Phone Number [facility] HISTORICAL RESULTS * Drug Screen, Urine (09/22/2017 3:45 AM CDT) Ur Amphetamine Screen NEGATIVE NEGATIVE Comment: Cutoff [...] Morphine, Codeine, Ethyl Morphine, ?Diacetylmorphine, 6-Acetylmorphine, Dihydrocodeine, ?[id number] and Hydrocodone Ur Oxycodone Screen NEGATIVE NEGATIVE 09/22 5:05 AM [facility] HISTORICAL RESULTS Comment:Cutoff Limit: 100 ng /mL Urine Creatinine/MONICA 33.8 mg/dL Comment:If Creatinine is < 4 0 mg/dL, recollection is suggested. 09/22/2017 3:45 AM CDT 09/22/2017 4:36 AM CDT Jennifer Villatoro MD LAB URINE ORDERABLES Fi nal Result [facility] HISTORICAL RESULTS * (ABNORMAL) UA with Culture Reflex (09/22/2017 3:45 AM CDT) Ur Collection Type CLEAN CATCH Ur Culture Indicated? C&S NOT INDICATED Urine Color STRAW YELLOW Urine Clarity CLEAR CLEAR Urine Glucose (UA) NORMAL NORMAL mg/dL Urine Bilirubin NEGATIVE NEGATIVE mg/dl Urine Ketones NEGATIVE NEGATIVE mg/dL Ur Specific [place] 1.004(L) 1.005 - 1.025 Urine Blood NEGATIVE NEGATIVE mg/dl Urine pH 7.0 5.0 - 8.0 Urine Protein NEGATIVE NEGATIVE mg/dL Urine Urobilinogen NORMAL NORMAL mg/dL Urine Nitrite NEGATIVE NEGATIVE Ur Leukocyte Esterase NEGATIVE NEGATIVE Sammie/ul Ur Microscopic Review Not Indicated 09/22/2017 3:45 AM CDT 09/22/2017 4:36 AM [facility] Narrative [facility] HISTORICAL RESULTS - 09/22/2017 4:53 AM CDT Indication(s) for ordering ? Jennifer Villatoro MD LAB URINE ORDERABLES Fi nal Result [facility] HISTORICAL RESULTS * MEMBRANE RUPTURE TEST (09/22/2017 2:15 AM CDT) Membranes Rupture NEGATIVE NEGATIVE Comment: A negative result does not assure the absence of membrane rupture. Results should be used in conjunction with other clinical information. 09/22/2017 2:15 AM CDT 09/22/2017 2:23 AM CDT us Jennifer Villatoro MD LAB BLOOD ORDERABLES nal Result Performing Organization Address City/State/[facility] Co de Phone Number [facility] HISTORICAL RESULTS documented in this encounter Visit Diagnoses Diagnosis False labor before 37 completed weeks of gestation in third trimester 33 weeks gestation of documented in this encounter
--- OUTSIDE RECORDS SUMMARY | 2024-03-15 14:59 | XMS_ITS | Encounter Summary ---
Author Organization [facility] Healthcare Address [address] [place] [address] Care Team Providers Care Network Controller Name Role Phone Unavailable Primary Care Provider Unavailabl e Encounter Details Date Type Department Care Team (Latest Contact Info) Description 12/28/2015 9:30 AM CDT - 12/28/2015 11:55 AM CDT Hospital Encounter [facility] ERGm voss MD [address] [facility] [place] [address] Other specified noninflammatory disorders of vulva and perineum; 15 weeks gestation of Social History Tobacco Use [...] Sign Reading Time Taken Comments Blood Pressure 100/59 12/28/2015 9:32 AM CDT Pulse 67 12/28/2015 9:32 AM CDT Temperature 36.9 ??C (98.4 ??F) 12/28/2015 9:32 AM CD T Respiratory Rate - - Oxygen Saturation 95% 12/28/2015 9:32 AM CDT Inhaled Oxygen Concentration - - Weight 43.4 kg (95 lb 10.9 oz) 12/28/2015 9:32 A M CDT Height 160 cm (5' 3 ) 12/28/2015 9:32 AM CDT Body Mass Index 16.95 12/28/2015 9:32 AM CDT Body Mass Index Percentile 3.18% 12/28/2015 9:3 2 AM CDT Growth Chart: [facility] (Girls, 2- 20 Years) documented in this encounter Plan of Treatment Not on file documented as of this encounter Procedures Procedure Name Priority Date/Time Associated Diagnosis Comments UA WITH CULTURE REFLEX Routine 6 10:35 AM CDT CBC WITH AUTO DIFFERENTIAL Routine 12/28/2015 10:31 AM CDT APTT Routine 12/28/2015 10:31 AM CDT PROTIME-INR Routine 12/28/2015 10:31 AM CDT COMPREHENSIVE METABOLIC PANEL Routine 12/28/2015 10:31 AM CDT documented in this encounter Results * UA with Culture Reflex (12/28/2015 10:35 AM CDT) Ur Collection Type CLEAN CATCH 12/28/2015 11:[address] [facility] [place] Antibodies HISTORICAL RESULTS Ur Culture Indicated? C&S NOT INDICATED 12/28/2015 11:[address] [facility] [place] [facility] HISTORICAL RESULTS Urine Color YELLOW YELLOW 12/28/2015 11:[address] [facility] [place] [facility] HISTORICAL RESULTS Urine Clarity CLEAR CLEAR 12/28/2015 11:[address] [facility] [place] [facility] HISTORICAL RESULTS Urine Glucose (UA) NORMAL NORMAL mg/dL 12/28/2015 11:[address] [facility] [place] [facility] HISTORICAL RESULTS Urine Bilirubin NEGATIVE NEGATIVE mg/dl 12/28/2015 11:[address] [facility] [place] [facility] HISTORICAL RESULTS Urine Ketones NEGATIVE NEGATIVE mg/dL 12/28/2015 11:[address] [facility] [place] [facility] HISTORICAL RESULTS Ur Specific [place] 1.023 1.005 - 1.025 12/28/2015 11:[address] [facility] [place] [facility] HISTORICAL RESULTS Urine Blood NEGATIVE NEGATIVE mg/dl 12/28/2015 11:[address] [facility] [place] [facility] HISTORICAL RESULTS Urine pH 5.0 5.0 - 8.0 12/28/2015 11:[address] [facility] [place] [facility] HISTORICAL RESULTS Urine Protein NEGATIVE NEGATIVE mg/dL Urine Urobilinogen NORMAL NORMAL mg/dL Urine Nitrite NEGATIVE NEGATIVE Ur Leukocyte Esterase NEGATIVE NEGATIVE Sammie/ul Ur Microscopic Review Not Indicated 12/28/2015 10:3 5 AM CDT 12/28/2015 10:46 AM CDT Joya [facility] LAB URINE ORDERABLES Estefany l Result Performing Organization Address [facility] de Phone Number [facility] HISTORICAL RESULTS * Protime-INR (12/28/2015 10:31 AM CDT) PT 13.0 11.8 - 14.5 SECONDS INR 0.97 0.01 - 5.99 Comment: Recommended Therapeutic range for Oral Anticoagulant Therapy No anti-coagulation therapy ? Normal Range: ?0.8-1.4 Anti-coagulation therapy ? Low intensity therapy ?2.0-3.0 ? High intensity therapy ?? 2.5-3.5 Critical Value ? Greater than or equal to 6.0 Patients should be monitored for serious bleeding. ?? 12/28/2015 10:3 1 AM CDT 12/28/2015 10:43 AM CDT Joya [facility] LAB BLOOD ORDERABLES Estefany l Result Performing Organization Address [facility] de Phone Number [facility] HISTORICAL RESULTS * aPTT (12/28/2015 10:31 AM CDT) APTT 27 26 - 33 SECONDS 12/28/2015 10:3 1 AM CDT 12/28/2015 10:43 AM CDT Joya [facility] LAB BLOOD ORDERABLES Estefany l Result [facility] HISTORICAL RESULTS * (ABNORMAL) Comprehensive metabolic panel (12/28/2015 10:31 AM CDT) [facility] Sodium 139 135 - 145 mmol/L Potassium 3.5 3.3 - 5.1 mmol/L Chloride 104 96 - 108 mmol/L Carbon Dioxide 24 22 - 32 mmol/L Anion Gap 11 7 - 16 Glucose 84 70 - 100 mg/dL BUN 4(L) 5 - 18 mg/dL Creatinine 0.6 0.5 - 1.1 mg/dL Comment: NOTE: Estimated GFR (Cockroft-Gault) will NOT be calculated unless patient Height and Weight were entered. Also, Kidney Disease Stage (GFR) and Estimated GFR (Cockroft-Gault) will NOT be calculated if Creatinine result is <0.2. Kidney Disease Stage TNP mL/MIN Comment:PATIENT LESS THAN 18 YEARS OLD Est GFR (Cockcroft-G) TNP ml/MIN Comment:PATIENT LESS THAN 18 YEARS OLD Calcium 8.8 8.4 - 10.2 mg/dL Total Protein 6.2(L) 6.4 - 8.3 g/dL Albumin 3.7 3.2 - 4.5 g/dL Globulin 2.5 2.3 - 3.5 gm/dL Albumin/Globulin Ratio 1.5 1.1 - 1.8 Total Bilirubin 0.2 0.0 - 1.2 mg/dL AST 12 0 - 32 U/L ALT 13 0 - 33 U/L Alkaline Phosphatase 44 0 - 186 U/L 12/28/2015 10:3 1 AM CDT 12/28/2015 10:43 AM CDT Joya Jay PA LAB BLOOD ORDERABLES Estefany lindsey Result [facility] HISTORICAL RESULTS * (ABNORMAL) CBC with auto differential (12/28/2015 10:31 AM CDT) WBC 8.1 4.6 - 10.2 x10 3/ul RBC 3.96 3.76 - 4.80 x10 6/ul Hemoglobin 11.8 11.0 - 15.0 g/dl Hct 34.7 33.0 - 43.0 % MCV 87.6 80.0 - 97.0 fl MCH 29.8 27.0 - 31.2 pg MCHC 34.0 31.8 - 35.4 g/dl RDW 12.8 11.6 - 14.8 % Plt Count 170 124 - 400 x10 3/ul MPV 11.1(H) 7.4 - 10.4 fl 12/28/2015 10:48 AM [email or web address] Neut % 76.9 37.0 - 85.0 % Immature Gran % 0.6 0.0 - 3.0 % Lymph % 13.7 5.0 - 45.0 % 12/28/2015 10:48 AM [email or web address] HISTORICAL RESULTS [place] % 7.9 3.0 - 15.0 % 12/28/2015 10:48 AM [email or web address] HISTORICAL RESULTS Eos % 0.7 0.0 - 7.0 % 12/28/2015 10:48 AM [email or web address] HISTORICAL RESULTS Baso % 0.2 0.0 - 2.0 % Absolute Neuts (auto) 6.2 1.7 - 8.7 x10 3/ul 12/28/2015 10:48 AM [email or web address] HISTORICAL RESULTS Immature Gran # 0.1 0.0 - 0.3 x10 3/ul 12/28/2015 10:48 AM [email or web address] HISTORICAL RESULTS Absolute Lymphs (auto) 1.1 0.2 - 4.6 x10 3/ul 12/28/2015 10:48 AM [email or web address] HISTORICAL RESULTS Absolute Monos (auto) 0.6 0.1 - 1.5 x10 3/ul Absolute Eos (auto) 0.1 0.0 - 0.7 x10 3/ul Absolute Basos (auto) 0.0 0.0 - 0.2 x10 3/ul 12/28/2015 10:3 1 AM CDT 12/28/2015 10:43 AM CDT Joya [facility] LAB BLOOD ORDERABLES Estefany lindsey Result [facility] HISTORICAL RESULTS documented in this encounter Visit Diagnoses Diagnosis Other specified noninflammatory disorders of vulva and perineum 15 weeks gestation of documented in this encounter
--- OUTSIDE RECORDS SUMMARY | 2024-03-15 14:59 | XMS_ITS | Encounter Summary ---
Author Organization [facility] Healthcare Address [address] [place] [address] Care Team Providers Care Assistance Specialist Name Role Phone Unavailable Primary Care Provider Unavailabl e Encounter Details Date Type Department Care Team (Late st Contact Info) Description 10/26/2015 9:05 PM CDT - 10/27/2015 2:50 AM CDT Hospital Encounter [facility], Markus Leary MD [address] [address] Threatened ; Less than 8 weeks gestation of Social History Tobacco [...] Sign Reading Time Taken Comments Blood Pressure 90/57 10/26/2015 9:13 PM CDT Pulse 87 10/26/2015 9:13 PM CDT Temperature 36.8 ??C (98.2 ??F) 10/26/2015 9:13 PM CD T Respiratory Rate - - Oxygen Saturation 99% 10/26/2015 9:13 PM CDT Inhaled Oxygen Concentration - - Weight 45.4 kg (100 lb) 10/26/2015 9:13 PM CDT Height 160 cm (5' 3 ) 10/26/2015 9:13 PM CDT Body Mass Index 17.71 10/26/2015 9:13 PM CDT Body Mass Index Percentile 8.66% 10/26/2015 9:1 3 PM CDT Growth Chart: [facility] (Girls, 2- 20 Years) documented in this encounter Plan of Treatment Not on file documented as of this encounter Procedures Procedure Name Priority Date/Time Associated Diagnosis Comments US OB TRANSVAGINAL Routine 10/27/2015 12 :00 AM CDT CBC WITH AUTO DIFFERENTIAL Routine 10/26/2015 10:26 PM CDT HCG, BLOOD, QUANTITATIVE Routine 10/26/2015 10:26 PM CDT COMPREHENSIVE METABOLIC PANEL Routine 10/26/2015 10:26 PM CDT URINALYSIS, MACRO AND MICRO Routine 10/26/2015 9:35 PM CDT documented in this encounter Results * US Ob Transvaginal (10/27/2015 12:00 AM CDT) Anatomical Region Laterality Modality Abdomen N/A Ultrasound 10/27/2015 Impressions 10/27/2015 2:27 AM CDT Single live intrauterine gestation as described above. No acute abnormality identified. ?? THIS IS AN ELECTRONICALLY VERIFIED REPORT 10/27/2015 2:23 AM: ??Joey Amaya M.D. ?? Joey Amaya M.D. RW:nancy 02:23 AM 02:23 AM AYLSSA [EOD] Narrative 10/27/2015 2:27 AM CDT EXAMINATION: OB ULTRASOUND INDICATION: left lower quadrant pain symptoms for 3 weeks discharge COMPARISON: None Available. FINDINGS: Endovaginal pelvic ultrasound was performed. The right ovary 3.6 x 2.3 x 2.8 cm. Left ovary measures 3.1 x 2.6 x 2.2 cm. There is trace free fluid the pelvis. There is a single live intrauterine gestation identified. ??The heart rate measured 141 beats per minute during the study. ??The amniotic fluid appears adequate. ??A yolk sac is visualized. ??The estimated gestational age, based on crown-rump length method, is 6 weeks and 6 days. ??This corresponds to an ANGIE of 06/15/2016. No evidence of hemorrhage. Procedure Note Provider, Markus, - 08/09/2020 EXAMINATION: OB ULTRASOUND INDICATION: left lower quadrant pain symptoms for 3 weeksdischarge COMPARISON: None Available. FINDINGS: Endovaginal pelvic ultrasound was performed. The right ovary 3.6 x 2.3 x 2.8 cm. Left ovary measures 3.1 x 2.6 x 2.2 cm. There is trace free fluid the pelvis. There is a single live intrauterine gestation identified. The heart rate measured 141 beats per minute during the study. The amniotic fluidappears adequate. A yolk sac is visualized. The estimated gestational age, basedon crown-rump length method, is 6 weeks and 6 days. This corresponds to anEDD of 06/15/2016. No evidence of hemorrhage. IMPRESSION: Single live intrauterine gestation as described above. Noacute abnormality identified. THIS IS AN ELECTRONICALLY VERIFIED REPORT 10/27/2015 2:23 AM: Joey Amaya M.D. Joey Amaya M.D. RW:nancy 02:23 AM 02:23 AM ALYSSA [EOD] us Markus Munroe MD IMG OB US PROCEDURES Final Result * (ABNORMAL) Comprehensive metabolic panel (10/26/2015 10:26 PM CDT) Sodium 140 135 - 145 mmol/L 10/26/2015 11:16 PM CDT [facility] [employer] HISTORICAL RESULTS Potassium 3.6 3.3 - 5.1 mmol/L 10/26/2015 11:16 PM CDT [facility] [employer] HISTORICAL RESULTS Chloride 102 96 - 108 mmol/L 10/26/2015 11:16 PM CDT [facility] [employer] HISTORICAL RESULTS Carbon Dioxide 22 22 - 32 mmol/L 10/26/2015 11:16 PM [facility] HISTORICAL RESULTS Anion Gap 16 7 - 16 10/26/2015 11:16 PM [facility] HISTORICAL RESULTS Glucose 86 70 - 100 mg/dL 10/26/2015 11:16 PM [facility] HISTORICAL RESULTS BUN 7 5 - 18 mg/dL 10/26/2015 11:16 PM [facility] HISTORICAL RESULTS Creatinine 0.4(L) 0.5 - 1.1 mg/dL 10/26/2015 11:16 PM [facility] HISTORICAL RESULTS Comment: NOTE: Estimated GFR (Cockroft-Gault) will NOT be calculated unless patient Height and Weight were entered. Also, Kidney Disease Stage (GFR) and Estimated GFR (Cockroft-Gault) will NOT be calculated if Creatinine result is <0.2. Kidney Disease Stage TNP mL/MIN 10/26/2015 11:17 PM [facility] HISTORICAL RESULTS Comment:PATIENT LESS THAN 18 YEARS OLD Est GFR (Cockcroft-G) TNP ml/MIN 10/26/2015 11:17 PM [facility] HISTORICAL RESULTS Comment:PATIENT LESS THAN 18 YEARS OLD Calcium 9.0 8.4 - 10.2 mg/dL 10/26/2015 11:16 PM [facility] HISTORICAL RESULTS Total Protein 6.8 6.4 - 8.3 g/dL 10/26/2015 11:16 PM [facility] HISTORICAL RESULTS Albumin 4.5 3.2 - 4.5 g/dL 10/26/2015 11:16 PM [facility] HISTORICAL RESULTS Globulin 2.3 2.3 - 3.5 gm/dL 10/26/2015 11:16 PM [facility] HISTORICAL RESULTS Albumin/Globulin Ratio 2.0(H) 1.1 - 1.8 10/26/2015 11:16 PM [facility] HISTORICAL RESULTS Total Bilirubin 0.4 0.0 - 1.2 mg/dL 10/26/2015 11:16 PM [facility] HISTORICAL RESULTS AST 13 0 - 32 U/L 10/26/2015 11:16 PM [facility] HISTORICAL RESULTS ALT 16 0 - 33 U/L 10/26/2015 11:16 PM [facility] HISTORICAL RESULTS Alkaline Phosphatase 45 0 - 186 U/L 10/26/2015 11:16 PM CDT [facility] HISTORICAL RESULTS 10/26/2015 10:2 6 PM CDT 10/26/2015 10:29 PM CDT [facility] BLOOD ORDERABLES Fin al Result [facility] HISTORICAL RESULTS * (ABNORMAL) CBC with auto differential (10/26/2015 10:26 PM CDT) WBC 11.4(H) 4.6 - 10.2 x10 3/ul 10/26/2015 10:31 PM CDT [facility] HISTORICAL RESULTS RBC 4.08 3.76 - 4.80 x10 6/ul Hemoglobin 12.1 11.0 - 15.0 g/dl 10/26/2015 10:31 PM CDT [facility] HISTORICAL RESULTS Hct 35.6 33.0 - 43.0 % 10/26/2015 10:31 PM CDT [facility] HISTORICAL RESULTS MCV 87.3 80.0 - 97.0 fl 10/26/2015 10:31 PM CDT [facility] HISTORICAL RESULTS MCH 29.7 27.0 - 31.2 pg MCHC 34.0 31.8 - 35.4 g/dl RDW 12.2 11.6 - 14.8 % Plt Count 231 124 - 400 x10 3/ul MPV 10.5(H) 7.4 - 10.4 fl Neut % 71.2 37.0 - 85.0 % Immature Gran % 0.3 0.0 - 3.0 % 10/26/2015 10:31 PM CDT [facility] HISTORICAL RESULTS Lymph % 21.2 5.0 - 45.0 % 10/26/2015 10:31 PM CDT [facility] HISTORICAL RESULTS Bent % 6.2 3.0 - 15.0 % 10/26/2015 10:31 PM T [facility] HISTORICAL RESULTS Eos % 0.7 0.0 - 7.0 % 10/26/2015 10:31 PM CDT [facility] HISTORICAL RESULTS Baso % 0.4 0.0 - 2.0 % 10/26/2015 10:31 PM CDT [facility] HISTORICAL RESULTS Absolute Neuts (auto) 8.1 1.7 - 8.7 x10 3/ul 10/26/2015 10:31 PM T [facility] HISTORICAL RESULTS Immature Gran # 0.0 0.0 - 0.3 x10 3/ul 10/26/2015 10:31 PM T [facility] HISTORICAL RESULTS Absolute Lymphs (auto) 2.4 0.2 - 4.6 x10 3/ul 10/26/2015 10:31 PM T [facility] HISTORICAL RESULTS Absolute Monos (auto) 0.7 0.1 - 1.5 x10 3/ul 10/26/2015 10:31 PM CDT [facility] HISTORICAL RESULTS Absolute Eos (auto) 0.1 0.0 - 0.7 x10 3/ul 10/26/2015 10:31 PM T [facility] HISTORICAL RESULTS Absolute Basos (auto) 0.1 0.0 - 0.2 x10 3/ul 10/26/2015 10:31 PM T [facility] HISTORICAL RESULTS 10/26/2015 10:2 6 PM CDT 10/26/2015 10:29 PM CDT us [facility] BLOOD ORDERABLES Fin al Result [facility] HISTORICAL RESULTS * (ABNORMAL) hCG, blood, quantitative (10/26/2015 10:26 PM CDT) Beta HCG, Quant 84337.0(H) 0.0 - 1.0 mIU/mL 10/27/2015 12:17 AM CDT [facility] HISTORICAL RESULTS Comment: Weeks of preg [...] for the early detection of . ? 10/26/2015 10:2 6 PM CDT 10/26/2015 10:29 PM CDT us [facility] BLOOD ORDERABLES Fin al Result [facility] HISTORICAL RESULTS * (ABNORMAL) Urinalysis, macro and micro (10/26/2015 9:[address] [facility]) Ur Collection Type CLEAN CATCH 10/26/2015 10:06 PM [facility] HISTORICAL RESULTS Urine Color YELLOW YELLOW 10/26/2015 10:06 PM [facility] HISTORICAL RESULTS Urine Clarity HAZY CLEAR 10/26/2015 10:06 PM [facility] HISTORICAL RESULTS Urine Glucose (UA) NORMAL NORMAL mg/dL 10/26/2015 10:06 PM [facility] HISTORICAL RESULTS Urine Bilirubin NEGATIVE NEGATIVE mg/dl 10/26/2015 10:06 PM [facility] HISTORICAL RESULTS Urine Ketones 5(H) NEGATIVE mg/dL 10/26/2015 10:06 PM [facility] HISTORICAL RESULTS Ur Specific Reading 1.034(H) 1.005 - 1.025 10/26/2015 10:06 PM [facility] HISTORICAL RESULTS Urine Blood 0.03(H) NEGATIVE mg/dl 10/26/2015 10:06 PM [facility] HISTORICAL RESULTS Urine pH 5.0 5.0 - 8.0 10/26/2015 10:06 PM [facility] HISTORICAL RESULTS Urine Protein NEGATIVE NEGATIVE mg/dL 10/26/2015 10:06 PM [facility] HISTORICAL RESULTS Urine Urobilinogen NORMAL NORMAL mg/dL 10/26/2015 10:06 PM [facility] HISTORICAL RESULTS Urine Nitrite NEGATIVE NEGATIVE 10/26/2015 10:06 PM [facility] HISTORICAL RESULTS Ur Leukocyte Esterase NEGATIVE NEGATIVE Sammie/ul 10/26/2015 10:06 PM [facility] HISTORICAL RESULTS Ur Microscopic Review Indicated or Ordered 10/26/2015 10:06 PM [facility] HISTORICAL RESULTS Urine RBC 5 0 - 2 /HPF 10/26/2015 10:06 PM [facility] HISTORICAL RESULTS Urine Bacteria Rare /HPF 10/26/2015 10:06 PM [facility] HISTORICAL RESULTS Urine Mucus Marked /LPF 10/26/2015 10:06 PM [facility] HISTORICAL RESULTS Ur Squamous Epith Cells Rare /LPF 10/26/2015 10:06 PM [facility] HISTORICAL RESULTS 10/26/2015 9:35 PM CDT 10/26/2015 9:44 PM CDT Narrative [facility] HISTORICAL RESULTS - 10/26/2015 10:06 PM CDT [facility] URINE ORDERABLES Fin al Result [facility] HISTORICAL RESULTS documented in this encounter Visit Diagnoses Diagnosis Threatened Less than 8 weeks gestation of documented in this encounter
--- OUTSIDE RECORDS SUMMARY | 2024-03-15 15:03 | XMS_ITS ---
Author Organization [facility] Address [address] [place] [address] Care Team Providers Care Plate Worker Name Role Phone Zachery Zamorano Unavailable [phone] Rufina Tillman Unavailable [phone] REASON FOR VISIT TRANSPORT ASSISTANT Allergies Encounters Encounter Location Date Provider Diagnosis [facility] [address] [place] [address] 05/21/2023 Rufina Tillman Plan Of Treatment No Information Progress Notes * Lennie MONETOB:2000 ( 23 yo F)Acc No.[id number]:05/21/2023 Progress Notes Patient:?Mariam MONET Provider:?LORENZO Capellan :2000???Age:22 Y???Sex:Female D ate:05/21/2023 [address] [id number] Subjective: * Chief Complaints: * ???1. TRANSPORT ASSISTANT Allergies. * Medical History:? Objective: * Vitals:? Assessment: Plan: * Treatment: * Billing Information: * Visit Code:? * Procedure Codes:? * Electronic signature of Rufina Tillman DNP, FNP-C on 03/15/2024 at 03:03 PM SPEECH AND HEARING DIRECTOR Sign off status: Pending * Provider:?LORENZO Capellan Jevon e:?05/21/2023 Generated for Aliyah osuna/Albino/eTransmitting on:?03/15/2024 03:03 PM SPEECH AND HEARING DIRECTOR
--- OUTSIDE RECORDS SUMMARY | 2024-03-15 15:03 | XMS_ITS ---
Author Organization [facility] Address [address] [place] [address] Care Team Providers Care Lay Brother Name Role Phone Zachery Zamorano Unavailable [phone] Dr. Zachery Zamorano Unavailable [phone] Encounters Encounter Location Date Provider Diagnosis [facility] [address] [place] [address] 05/06/2023 Zachery Zamorano Plan Of Treatment No Information Progress Notes * Lennie MONETOB:2000 ( 23 yo F)Acc No.[id number]:05/06/2023 Progress Notes Patient:?Mariam MONET Provider:?Zachery Zamorano MD :2000???Age:22 Y???Sex:Female D ate:05/06/2023 [address] [id number] Subjective: * Chief Complaints: * ??? * Medical History:? Objective: * Vitals:? Assessment: Plan: * Treatment: * Billing Information: * Visit Code:? * Procedure Codes:? * Electronic signature of Dr. Zachery Zamorano MD on 03/15/2024 at 03:03 PM CUSTOMER ASSISTANT Sign off status: Pending * Provider:?Zachery Zamorano MD Date:?05/06 Generated for Printi ng/Faxing/eTransmitting on:?03/15/2024 03:03 PM CUSTOMER ASSISTANT
--- OUTSIDE RECORDS SUMMARY | 2024-03-15 15:04 | XMS_ITS | Patient Health Record ---
Author Organization [facility] Address [address] [place] [address] Care Team Providers Care Benzene Worker Name Role Phone Zachery Zamorano Unavailable [phone] Dr. Zachery Zamorano Unavailable [phone] Rufina Tillman Unavailable [phone] Reason For Referral No Information Plan Of Treatment No Information Insurance Providers Payer Name Payer Address Payer Phone Subscriber Number Group Number Insured Name Patient Relationship to Insured Coverage Start Date Coverage End Date Rupal [address] [place] [address] [phone] [id number] Mariam Lea Self - patient is the insured
--- OUTSIDE RECORDS SUMMARY | 2024-03-15 18:23 | XMS_ITS | Clinical Summary ---
Author Organization [facility] Address [address] [place] [address] Care Team Providers Care User Interface Artist Name Role Phone Shana Easton MD Primary Care Provider [phone] Source Comments [facility],non-owned Affiliates and Associated Physician Practices is amultiple site organization consisting of ambulatory clinics and hospital sitesin [place], [place], [place] and [place]. This disclosure is being madepursuant to the Care Everywhere program and may not contain all information available regarding this patient. Last updated 17.[facility] Allergies Active Allergy Reactions Criticality Noted Date [...] - Primary OB: Self SAGAR from in [place] to Fellow - PNL: Rh+/ Antibody neg [...] - 12/16/2023 11:59 PM CDT Hospital Encounter [facility] MATERNAL/ EVALUATION UNIT [address] [facility] [place] [address] Vijaya Birch MD Discharge Disposition: Home or [...] and heating? Not hard at all 12/11/2023 [facility] [place] of Occupat ional Health - Occupational Stress [...] in a mcc (including now)? No 12/11/2023 [place] Depression Scale Answer Date Recorded [place] Depression Scale Total 0 12/11/2023 The thought [...] st Contact Info) Description 03/23/2024 Hospital Encounter [facility] [address] [place], [place] [id number] Health Maintenance Due Date Last Done Comments [...] yrs (No Doses Required) Completed Care Teams User Interface Artist Relationship Specialty Start Date End Date Shana Easton MD [address] [place] [address] PCP - General Family Medicine 01/09/20
--- OUTSIDE RECORDS SUMMARY | 2024-03-15 18:23 | XMS_ITS | Encounter Summary ---
Author Organization [facility] Health Address [address] [place] [address] Care Team Providers Care National Account Executive Name Role Phone Shana Easton MD Primary Care Provider [phone] Encounter Details Date Type Department Care Team [...] and heating? Not hard at all 12/11/2023 [facility] [place] of Occupat ional Health - Occupational Stress [...] in a correction (including now)? No 12/11/2023 [place] Depression Scale Answer Date Recorded [place] Depression Scale Total 0 12/11/2023 The thought [...] st Contact Info) Description 03/23/2024 Hospital Encounter [facility] [address] [facility] [address] [place] [address] documented as of this encounter Visit Diagnoses Not on filedocumented in this encounter Care Teams National Account Executive Relationship Specialty Start Date End Date Shana Easton MD [address] [place] [address] PCP - General Family Medicine 01/09/20 documented as of this encounter
--- OUTSIDE RECORDS SUMMARY | 2024-03-15 18:23 | XMS_ITS | Referral Summary ---
Author Organization [facility] Address [address] [place] [address] Care Team Providers Care Product Management Consultant Name Role Phone Shana Easton MD Primary Care Provider [phone] [facility],non-owned Affiliates and Associated Physician Practices is amultiple site organization consisting of ambulatory clinics and hospital sitesin [place], [place], [place] and [place]. This disclosure is being madepursuant to the Care Everywhere program and may not contain all information available regarding this patient. Last updated 17.[facility] Encounters Date Type Department Care Team Description 12/16/2023 Travel 12/16/2023 1:03 PM CDT - 12/16/2023 11:59 PM CDT Hospital Encounter [facility] MATERNAL/ EVALUATION UNIT [address] [place] [address] Vijaya Birch MD Discharge Disposition: Home or [...] - Primary OB: Self SAGAR from in [place] to Fellow - PNL: Rh+/ Antibody neg [...] and heating? Not hard at all 12/11/2023 [facility] of Occupat ional Health - Occupational [...] in a penitentiary (including now)? No 12/11/2023 [place] Depression Scale Answer Date Recorded [place] Depression Scale Total 0 12/11/2023 The thought [...] Contact Info) Description 03/23/2024 Hospital Encounter [facility] [address] [place] [address] Administered Medications Care Teams Product Management Consultant Relationship Specialty Start Date End Date Shana Easton MD [address] [phone] PCP - General Family Medicine 01/09/20
--- OUTSIDE RECORDS SUMMARY | 2024-03-15 18:23 | XMS_ITS | Encounter Summary ---
Author Organization [facility] Health Address [address] [place] [address] Care Team Providers Care Senior Software Engineer Analytics Name Role Phone Shana Easton MD Primary Care Provider [phone] Reason for Visit * Reason Onset Date Comments Question 12/12/2023 Encounter Details Date Type Department Care Team (Late st Contact Info) Description 12/12/2023 Telephone [facility] MATERNAL/ EVALUATION UNIT [facility] [facility] [place] [address] Vivi Arellano, RN Question Social History Tobacco [...] and heating? Not hard at all 12/11/2023 [facility] [place] of Occupat ional Health - Occupational Stress [...] place to sleep or slept in a detention (including now)? No 12/11/2023 [place] Depression Scale Answer Date Recorded [place] Depression Scale Total 0 12/11/2023 The thought [...] st Contact Info) Description 03/23/2024 Hospital Encounter [facility] [address] [place] [address] documented as of this encounter Visit Diagnoses Not on filedocumented in this encounter Care Teams Senior Software Engineer Analytics Relationship Specialty Start Date End Date Shana Easton MD [address] [phone] PCP - General Family Medicine 01/09/20 documented as of this encounter
--- OUTSIDE RECORDS SUMMARY | 2024-03-15 18:23 | XMS_ITS | Encounter Summary ---
Author Organization [facility] Address [address] [facility] [place] [address] Care Team Providers Care Medical Staffing Coordinator Name Role Phone Shana Easton MD Primary Care Provider [phone] Reason for Visit * Reason Comments Non-stress Test Encounter Details Date Type Department Care Team (Latest Contact Info) Description 12/16/2023 1:03 PM CDT - 12/16/2023 11:59 PM CDT Hospital Encounter [facility] MATERNAL/ EVALUATION UNIT [address] [facility] [place] [address] Vijaya Birch MD [address] [facility] [address] [place] [address] Discharge Disposition: Home or Self [...] and heating? Not hard at all 12/11/2023 [facility] [place] of Occupat ional Health - Occupational Stress [...] in a longterm (including now)? No 12/11/2023 [place] Depression Scale Answer Date Recorded [place] Depression Scale Total 0 12/11/2023 The thought [...] Contact Info) Description 03/23/2024 Hospital Encounter [facility] [address] [place] [address] documented as of this encounter Visit Diagnoses Not on filedocumented in this encounter Care Teams Medical Staffing Coordinator Relationship Specialty Start Date End Date Shana Easton MD [address] [phone] PCP - General Family Medicine 01/09/20 documented as of this encounter
--- OUTSIDE RECORDS SUMMARY | 2024-03-15 18:23 | XMS_ITS | Encounter Summary ---
Author Organization [facility] Health Address [address] [facility] [place] [address] Care Team Providers Care Panel Machine Operator Name Role Phone Shana Easton MD Primary Care Provider [phone] Reason for Visit * Reason Comments Ultrasound Encounter Details Date Type Department Care Team (Latest Contact Info) Description 12/11/2023 12:00 PM CDT - 12/11/2023 12:02 PM CDT Hospital Encounter [facility] MATERNAL/ EVALUATION UNIT [address] [facility] [place] [address] Zachery Alfred MD [address] [facility] [address] [place] [address] Discharge Disposition: Home or Self [...] and heating? Not hard at all 12/11/2023 [facility] [place] of Occupat ional Health - Occupational Stress [...] in a detention (including now)? No 12/11/2023 [place] Depression Scale Answer Date Recorded [place] Depression Scale Total 0 12/11/2023 The thought [...] Hospital Encounter [facility] [address] [place] [address] documented as of this encounter Procedures Procedure [...] 4 1:18 PM CDT [facility] Specific [place] UA POCT 1.010 1.005 - 1.030 12/11/2023 [...] - 1.0 EU/dL 12/11/2023 1:18 PM CDT [facility] Urine URINE / Unknown 12/11/2023 1 :16 PM CDT 12/11/2023 1:18 PM CDT Zachery Alfred MD LAB - POINT OF CARE ORDERABLES Performing Organization Address City/State/[facility] Co de Phone Number [facility] [address] [phone] * SONOGRAM - COMPLETE (12/11/2023 12:16 PM CDT) Anatomical Region Laterality Modality Other 12/11/2023 12:1 6 PM CDT Narrative 12/11/2023 1:24 PM CDT ?[facility] ? - [place] ?M[facility] and Care Center ?PHONE: ??FAX: Pat. Name: ?DIOGENES MONET Pat. No: ?[id number] Study Date: ?? 12/11/2023 ??12:16pm , Age: ? 2000, 23 Pregnancies: ?? 6, Para 3, Ab 2 Height: ? 63 in Weight: ? 135 lb LMP: ?Unknown GA by US: ? 29w6d ?? ANGIE: 02/20/2024 GA Selected: ??30w4d (From Known E) ANGIE: ?02/15/2024 Referring MD: MD Benita, [facility] [place] Music Video Director: ??Eldina Omerspahic, RDMS CPT4: ? 52011,43735,79170 BMI: ?23.91 Hist/Ind: ? SAGAR ?PreE w/o SF ?Short interval ?Elevated GCT- uknown GTT results MEASUREMENTS & AGE ? GROWTH EVALUATION Measurement ??GA ? Range ? Srce %for GA Ratios ----- ---- ------- BPD ??7.6 cm 30w2d (33a7g-34c0z) Hadl BPD 29% FL/BPD 0.74 (0.71 - 0.87) HC ??28.4 cm 31w1d (05k0k-86g5e) Hadl HC ??29% FL/AC ??0.21 (0.20 - 0.24) AC ??27.0 cm 31w1d (48p7h-54r8k) Hadl AC ??62% HC/AC ??1.05 (0.97 - 1.16) FL ?? 5.6 cm 29w2d (29j1t-71m3f) Hadl FL ??9% CI ? 0.74 (0.70 - 0.86) HL ?? 5.0 cm 29w0d (74z7o-46g6w) Zackery HL ??24% Cere 3.8 cm 31w2d (79y0c-50p6t) Hill Cere63% GA for sonogram 29w6d (92l7x-30q6p) ?? Weight Estimate: based on (BPD,HC,AC,FL) Hadlock [...] Signature> ??12/11/2023 01:14pm Revised Raman Medeiros MD [facility] ORDERABLES documented in this encounter Visit Diagnoses Diagnosis Encounter for anatomic survey (HCC)- Primary Encounter for anatomic survey documented in this encounter Care Teams Panel Machine Operator Relationship Specialty Start Date End Date Shana Easton MD [address] [phone] PCP - General Family Medicine 01/09/20 documented as of this encounter
--- OUTSIDE RECORDS SUMMARY | 2024-03-15 18:23 | XMS_ITS | Encounter Summary ---
Author Organization [facility] Health Address [address] [facility] [place] [address] Care Team Providers Care Special Delivery Clerk Name Role Phone Shana Easton MD Primary Care Provider [phone] Encounter Details Date Type Department Care Team (Late st Contact Info) Description 12/11/2023 Orders Only [facility] MATERNAL/ EVALUATION UNIT [address] [facility] [place] [address] Renetta Moe Social History Tobacco Use Types [...] and heating? Not hard at all 12/11/2023 [place] of Occupat ional Health - Occupational Stress [...] slept in a retirement (including now)? No 12/11/2023 [place] Depression Scale Answer Date Recorded [place] Depression Scale Total 0 12/11/2023 The thought [...] st Contact Info) Description 03/23/2024 Hospital Encounter [facility] 5 [facility] [address] [place] [address] documented as of this encounter Visit Diagnoses Not on filedocumented in this encounter Care Teams Special Delivery Clerk Relationship Specialty Start Date End Date Shana Easton MD [address] [phone] PCP - General Family Medicine 01/09/20 documented as of this encounter
--- OUTSIDE RECORDS SUMMARY | 2024-03-15 18:23 | XMS_ITS | Encounter Summary ---
Author Organization [facility] Health Address [address] [place] [address] Care Team Providers Care Line Up Machine Operator Name Role Phone Shana Easton MD Primary Care Provider [phone] Reason for Referral * (Routine) - Closed Specialty Diagnoses / Procedures Referred By Dora oconnor Referred To Contact Diagnoses Encounter for follow-up ultrasound of anatomy (HCC) 26 weeks gestation of (HCC) Family history of pyloric stenosis Procedures SONOGRAM - COMPLETE SONOGRAM - COMPLETE Jin Ho MD [address] [address] Referral ID Status Reason Start Date Expiration Date Visits Re quested Visits Authorized [id number] Closed 11/20/2022 11/20/2023 1 1 * (Routine) - Closed Specialty Diagnoses / Procedures Referred By Dora oconnor Referred To Contact Diagnoses Encounter for follow-up ultrasound of anatomy (HCC) 26 weeks gestation of (HCC) Family history of pyloric stenosis Procedures SONOGRAM - COMPLETE SONOGRAM - COMPLETE Jin Ho MD [address] [place] [address] Referral ID Status Reason Start Date Expiration Date Visits Re quested Visits Authorized [id number] Closed 11/20/2022 11/20/2023 1 1 Reason for Visit * Reason Comments Ultrasound Encounter Details Date Type Department Care Team (Latest Contact Info) Description 11/23/2022 10:20 AM CDT - 11/23/2022 11:59 PM CDT Hospital Encounter [facility] [address] [place], [place] [id number] Jin Ho MD [address] [address] Discharge Disposition: Home or Self [...] st Contact Info) Description 03/23/2024 Hospital Encounter [facility] [address] [place] [address] documented as of this encounter Procedures Procedure [...] CDT Narrative 11/23/2022 11:38 AM CDT ? [facility] ?Maternal and Care Center ?PHONE: ??FAX: Pat. Name: ?DIOGENES MONET Pat. No: ?[id number] Study Date: ?? 11/23/2022 ??10:43am , Age: ? 2000, 22 Pregnancies: ?? 5, Para 1122 Height: ? 63 in Weight: ? 107 lb LMP: ?05/19/2022 GA by LMP: ?26w6d GA by Base: ?? 26w6d ?? ANGIE: 02/23/2023 GA by US: ? 25w4d ?? ANGIE: 03/04/2023 GA Selected: ??26w6d (From [facility]) ANGIE: ?02/23/2023 Referring MD: Tal Green MD Sales Support Manager: ??Belkys Wood, MERRY, EDY CPT4: ? 71565 BMI: ?18.95 Hist/Ind: ? G1: SAB ??7 [...] ----- ---- ------- BPD ??6.3 cm 25w3d (97m6s-33b1k) Hadl BPD 4% FL/BPD 0.77 (0.71 - 0.87) HC ??23.8 cm 25w6d (79x9l-68l9p) Hadl HC ??4% FL/AC ??0.22 (0.20 - 0.24) AC ??21.8 cm 26w2d (79h0i-80a8a) Hadl AC ??21% HC/AC ??1.09 (1.00 - 1.19) FL ?? 4.8 cm 26w0d (26y0g-51h7r) Hadl FL ??13% CI ? 0.73 (0.70 - 0.86) HL ?? 4.4 cm 26w0d (69e9c-29l3w) Zackery HL ??36% GA for sonogram 25w4d (33d7l-11c2g) ?? Weight Estimate: based on (BPD,HC,AC,FL) Hadlock [...] She said she will go directly to [facility] after today's [facility] visit. Ultrasound in 3 weeks for growth & amniotic fluid volume Thank you for allowing us the opportunity to care for your patient Jin Ho MD <Electronic Signature> ??11/23/2022 11:37am Jin Ho MD [facility] ORDERABLES documented in this encounter Visit Diagnoses Diagnosis Encounter for follow-up ultrasound of anatomy (HCC)- Primary 26 weeks gestation of (HCC) state, incidental History of gestational hypertension History of labor Personal history of pre-term labor Family history of pyloric stenosis Family history of other digestive disorders documented in this encounter Care Teams Line Up Machine Operator Relationship Specialty Start Date End Date Shana Easton MD [address] [phone] PCP - General Family Medicine 01/09/20 documented as of this encounter
--- OUTSIDE RECORDS SUMMARY | 2024-03-15 18:23 | XMS_ITS | Encounter Summary ---
Author Organization [facility] Health Address [address] [place] [address] Care Team Providers Care Split Leather Mosser Name Role Phone Shana Easton MD Primary Care Provider [phone] Encounter Details Date Type Department Care Team [...] and heating? Not hard at all 12/11/2023 [facility] [place] of Occupat ional Health - Occupational Stress [...] [place] [facility] (including now)? No 12/11/2023 [place] Depression Scale Answer Date Recorded [place] Depression Scale Total 0 12/11/2023 The thought [...] st Contact Info) Description 03/23/2024 Hospital Encounter [facility] [address] [facility] [address] [place] [address] documented as of this encounter Visit Diagnoses Not on filedocumented in this encounter Care Teams Split Leather Mosser Relationship Specialty Start Date End Date Shana Easton MD [address] [place] [address] PCP - General Family Medicine 01/09/20 documented as of this encounter
--- OUTSIDE RECORDS SUMMARY | 2024-03-15 18:23 | XMS_ITS | Encounter Summary ---
Author Organization [facility] Health Address [address] [facility] [place] [address] Care Team Providers Care Electrician Aircraft Name Role Phone Shana Easton MD Primary Care Provider [phone] Reason for Referral * Consultation (Routine) - Authorized Specialty Diagnoses / Procedures Referred By Contac t Referred To Contact Diagnoses Anxiety Melodie Henley MD [address] [facility] [address] [place] [address] Gene Harding MD [address] [place] [address] Referral ID Status Reason Start Date Expiration Date Visits Requested Visits Authorized [id number] Authorized Specialty Services Required 12/11/2023 12/10/2024 1 1 Reason for Visit * Reason Comments Ultrasound Routine Visit Initial Visit Encounter Details Date Type Department Care Team (Late st Contact Info) Description 12/11/2023 12:03 PM CDT - 12/11/2023 11:59 PM CDT Hospital Encounter [facility] MATERNAL/ EVALUATION UNIT [facility] [facility] [address] [place] [address] Zachery Alfred MD [address] [facility] [address] [place] [phone] Melodie Duval MD [address] [place] [address] Discharge Disposition: Home or Self Care Social [...] heating? Not hard at all 12/11/2023 [facility] [place] of Occupat ional Health - Occupational Stress [...] place to sleep or slept in a residential (including now)? No 12/11/2023 [place] Depression Scale Answer Date Recorded [place] Depression Scale Total 0 12/11/2023 The thought [...] voiced understanding of information presented. Gavepatient booklet. [employer] form completed. Diapers given. 12/11/2023atient was given New OB Education packet, which includes: Verification of letter [facility] offices Dental Referral letter Dental Clinic's list FMLA Request Process Handout [place] Manage Care Transportation Services Sheet Safe Connections Crisis Helpline Resources for your growing family Scan-xiz-lcpzgoz medications that are safe to take during [...] - Primary OB: Self SAGAR from in [place] to Fellow - PNL: Rh+/ Antibody neg [...] Short interval between pregnancies affecting , antepartum ([facility]) 10/11/2017 Priority: Not Prioritized Poor growth affecting management of mother in third trimester ([facility]) 10/11/2017 Priority: Not Prioritized Obstetrical history: OB [...] History: Past Medical History: Diagnosis Date Asthma ([facility]) natalio has not had issues in years [...] - Primary OB: Self SAGAR from in [place] to Fellow - PNL: Rh+/ Antibody neg [...] Medicine Attending: I have seen and reviewed Mariam Lea who is a 23 year old [...] Needs urine culture also. Melodie Arevalo MD [facility]aternal [facility] documented in this encounter Plan of Treatment Upcoming Encounters Date Type Department Care Team (Late st Contact Info) Description 03/23/2024 Hospital Encounter [facility] [address] [place], [place] [id number] Scheduled Orders Name Type Priority Associated Diagnoses [...] unspecified documented in this encounter Care Teams Electrician Aircraft Relationship Specialty Start Date End Date Shana Easton MD [address] [phone] PCP - General Family Medicine 01/09/20 documented as of this encounter
--- OUTSIDE RECORDS SUMMARY | 2024-03-15 18:23 | XMS_ITS | Encounter Summary ---
Author Organization [facility] Health Address [address] [place] [address] Care Team Providers Care Patient Accounts Clerk Name Role Phone Shana Easton MD Primary Care Provider [phone] Encounter Details Date Type Department Care Team [...] and heating? Not hard at all 12/11/2023 [facility] [place] of Occupat ional Health - Occupational Stress [...] in a correction (including now)? No 12/11/2023 [place] Depression Scale Answer Date Recorded [place] Depression Scale Total 0 12/11/2023 The thought [...] st Contact Info) Description 03/23/2024 Hospital Encounter [facility] [address] [facility] [address] [place] [address] documented as of this encounter Visit Diagnoses Not on filedocumented in this encounter Care Teams Patient Accounts Clerk Relationship Specialty Start Date End Date Shana Easton MD [address] [place] [address] PCP - General Family Medicine 01/09/20 documented as of this encounter
--- OUTSIDE RECORDS SUMMARY | 2024-03-15 18:23 | XMS_ITS | Encounter Summary ---
Author Organization [facility] Address [address] [facility] [place] [address] Care Team Providers Care Branch Logistics Supervisor Name Role Phone Shana Easton MD Primary Care Provider [phone] Reason for Referral * (Routine) - Closed Specialty Diagnoses / Procedures Referred By Contac t Referred To Contact Diagnoses History of labor History of gestational hypertension 29 weeks gestation of (HCC) SGA (small for gestational age) (HCC) Encounter for ultrasound to assess growth (HCC) Procedures SONOGRAM - COMPLETE Jin Ho MD [address] [address] Referral ID Status Reason Start Date Expiration Date Visits Re quested Visits Authorized [id number] Closed 12/11/2022 12/11/2023 1 1 * (Routine) - Closed Specialty Diagnoses / Procedures Referred By Contac t Referred To Contact Diagnoses History of labor History of gestational hypertension 29 weeks gestation of (HCC) SGA (small for gestational age) (HCC) Encounter for ultrasound to assess growth (HCC) Procedures SONOGRAM - COMPLETE Jin Ho MD [address] [facility] [address] [place] [address] Referral ID Status Reason Start Date Expiration Date Visits Re quested Visits Authorized [id number] Closed 12/11/2022 12/11/2023 1 1 Reason for Visit * Reason Comments Ultrasound Encounter Details Date Type Department Care Team (Latest Contact Info) Description 12/11/2022 9:37 AM CDT - 12/11/2022 11:59 PM CDT Hospital Encounter [facility] Maternal & Care [address] [place], [place] [phone] Jil Lang MD [address] [phone] Discharge Disposition: Home or Self Care Social [...] st Contact Info) Description 03/23/2024 Hospital Encounter [facility] [address] [place] [address] documented as of this encounter Procedures Procedure [...] CDT Narrative 12/11/2022 11:09 AM CDT ? [facility] ?Maternal and Care Center ?PHONE: ??FAX: Pat. Name: ?DIOGENES MONET Pat. No: ?[id number] Study Date: ?? 12/11/2022 ??9:39am , Age: ? 2000, 22 Pregnancies: ?? 5, Para 1122 Height: ? 63 in Weight: ? 107 lb LMP: ?05/19/2022 GA by LMP: ?29w3d GA by Base: ?? 29w3d ?? ANGIE: 02/23/2023 GA by US: ? 28w3d ?? ANGIE: 03/02/2023 GA Selected: ??29w3d (LMP) ANGIE: ?02/23/2023 Referring MD: Tal Green MD Emergency Service Worker: ??Sravani Jiménez RDMS CPT4: ? 63062 BMI: ?18.95 Hist/Ind: ? growth assessment ?Vaginal [...] ----- ---- ------- BPD ??6.8 cm 27w3d (70a8j-52i4w) Hadl BPD 1% FL/BPD 0.81 (0.71 - 0.87) HC ??26.1 cm 28w3d (61m0c-68y8p) Hadl HC ??3% FL/AC ??0.22 (0.20 - 0.24) AC ??24.6 cm 28w6d (13l0o-33k7x) Hadl AC ??26% HC/AC ??1.06 (0.98 - 1.17) FL ?? 5.5 cm 29w0d (08o8s-31q9n) Hadl FL ??26% CI ? 0.71 (0.70 - 0.86) HL ?? 4.8 cm 28w2d (57b1z-15p2i) Zackery HL ??31% GA for sonogram 28w3d (69m1y-78n0c) ?? Weight Estimate: based on (BPD,HC,AC,FL) Avg [...] <Electronic Signature> ??12/11/2022 11:09am Jin Ho MD [facility] ORDERABLES documented in this encounter Visit Diagnoses Diagnosis Family history of pyloric stenosis- Primary Family history of other digestive disorders History of labor Personal history of pre-term labor History of gestational hypertension 29 weeks gestation of (HCC) state, incidental SGA (small for gestational age) (HCC) Khfmn-mrn-ktqgg without mention of malnutrition, unspecified (weight) Encounter for ultrasound to assess growth (HCC) documented in this encounter Care Teams Branch Logistics Supervisor Relationship Specialty Start Date End Date Shana Easton MD [address] [place] [phone] PCP - General Family Medicine 01/09/20 documented as of this encounter
--- OUTSIDE RECORDS SUMMARY | 2024-03-15 18:23 | XMS_ITS | Encounter Summary ---
Author Organization [facility] Health Address [address] [place] [address] Care Team Providers Care Filling Carrier Name Role Phone Shana Easton MD Primary Care Provider [phone] Reason for Referral * (Routine) - Pending Review Specialty Diagnoses / Procedures Referred By Contac t Referred To Contact Procedures Follow up with provider Jil Lang MD [address] [address] Referral ID Status Reason Start Date Expiration Date V isits Requested Visits Authorized [id number] Pending Review 12/09/2023 12/08/2024 1 1 Reason for Visit * Reason Comments Headache Encounter Details Date Type Department Care Team (Latest Contact Info) Description 12/09/2023 10:46 AM CDT - 12/09/2023 1:10 PM CDT Hospital Encounter [facility] [address] [place] [address] Gloria Tompkins MD [address] [place] [address] Jil Lang MD [address] [facility] [address] [place] [address] Discharge Disposition: Home or Self Care Social [...] and heating? Not hard at all 12/09/2023 [facility] [place] of Occupat ional Health - Occupational Stress [...] slept in a penitentiary (including now)? No 12/09/2023 Estimated Date of [...] Document Reviewed: 06/07/2009 ExitCare?? Patient Information ??2015 [employer]. This information is not intended to replace [...] diarrhea. Important Telephone Number: Women's Evaluation Unit: [phone] documented in this encounter Medications at Time [...] ultrasound Estimated Date of Delivery: 02/15/24 care: [facility] Dr. Dumont in [facility] Patient Active Problem List Diagnosis Date Noted Short interval between pregnancies affecting , antepartum (HCC) 10/11/2017 Priority: Not Prioritized Poor growth affecting management of mother in third trimester ([facility]) 10/11/2017 Priority: Not Prioritized Patient presents from outside clinic, recommended for repeat [facility]-ecl[facility]up. [facility], had mild range [...] Negative Negative Ketone UA Negative Negative Specific [place] UA 1.014 1.005 - 1.030 Blood UA [...] D/c home in stable condition Follow Up: [facility] on 12/[address] Causey and Lory. Stacy Valverde MD PGY-1 12/09/2023 12:39 PM MFM Fellow Addendum: In summary, Mariam Lea is our 23 year old at 30w2d who presented fro evaluation of preeclampsia. The patient was seen by her primary OBGYN Dr. Dumont in [place] who had documented elevated blood pressures and [...] a day at home. Melodie Henley MD [facility] Obstetrics and Gynecology, PGY-5 [...] OTHER INFORMATION Nydia Escobedo RN Non-Stress Test [facility] Patient Name: Mariam Lea LMP: No LMP [...] Obstetrics and Gynecology, PGY-5 Associated attestation - iJl Lang MD - 01/01/2024 10:28 AM CDT I have reviewed the tracing and concur with the resident's description and interpretation. Jil Lang MD MPH [facility] ST[facility] documented in this encounter Plan of Treatment Upcoming Encounters Date Type Department Care Team (Late st Contact Info) Description 03/23/2024 Hospital Encounter [facility] [address] [place] [address] documented as of this encounter Procedures Procedure [...] Urine 1,600 mL 12/10/2023 1:50 PM CDT [facility] Collection Time Hours 24 hrs 12/10/2023 1:50 PM CDT [facility] Protein 24 Hour Urine 12/10/2023 1:50 PM CDT [facility] Comment:Unable to calculate due to limited levels of measurable protein. Protein Urine <6.8 <11.9 mg/dL 12/10/2023 1:50 PM CDT [facility] Urine TIMED URINE SPECIMEN / Unknown Timed Urine Volume Measurement / Unknown 12/10/2023 1:25 PM CDT 12/10/2023 1:31 PM CDT Jil Lang MD LAB - URINE CHILD WELFARE CONSULTANT RY ORDERABLES Performing Organization Address City/State/[facility] Co de Phone Number [facility] [address] [place] [address] * NONSTRESS TEST (12/09/2023 1:00 PM CDT) [...] OTHER INFORMATION Nydia Escobedo RN Non-Stress Test [facility] Patient Name: Mariam Lea LMP: No LMP [...] CULTURE URINE (12/09/2023 11:39 AM CDT) Pathologist [facility] Culture Urine 50,000-100,000 CFU/mL urogenital marcos BRENDA 12/11/2023 12:54 AM CDT [facility] MICROBIOLOGY Urine URINE SPECIMEN OBTAINED BY CLEAN CATCH PROCEDURE / Unknown Collection / Unknown 12/09/2023 11:39 AM CDT 12/09/2023 11:49 AM CDT Jil Lang MD LAB - MICROBIOLOGY ORDERABLES [facility] MICROBIOLOGY [address] [place] [address], [facility] [phone] * (ABNORMAL) URINE MICROSCOPIC ONLY REFLEX TO CULTURE (12/09/2023 11:39 AM CDT) Reflex Status Culture to follow 12/09/2023 12:05 PM CDT [facility] RBC UA 0-2 0 - 5 # /hpf 12/09/2023 12:05 PM CDT [facility] WBC UA 11-20(A) 0 - 5 # /hpf 12/09/2023 12:05 PM CDT [facility] Bacteria UA Trace(A) None Seen 12/09/2023 12:05 PM CDT [facility] Squamous Epithelial Cells 11-20(A) 0 - 5 /hpf 12/09/2023 12:05 PM CDT [facility] Mucus UA 3+ /LPF 12/09/2023 12:05 PM CDT [facility] Urine URINE SPECIMEN OBTAINED BY CLEAN CATCH PROCEDURE / Unknown Collection / Unknown 12/09/2023 11:39 AM CDT 12/09/2023 11:49 AM CDT Narrative [facility] - 12/09/2023 12:05 PM CDT Jil Lang MD LAB - URINALYSIS OR DERABLES Performing Organization Address [facility] Co de Phone Number [facility] [address] [place] [phone] * PROTEIN CREATININE RATIO URINE RANDOM PNL (12/09/2023 11:39 AM CDT) Protein Urine 7.1 <11.9 mg/dL 12/09/2023 12:23 PM CDT [facility] Creatinine Urine 80.19 mg/dL 12/09/2023 12:23 PM CDT [facility] Protein/Creatin ine Ratio Urine 0.09 12/09/2023 12:23 PM T [facility] Urine URINE SPECIMEN OBTAINED BY CLEAN CATCH PROCEDURE / Unknown Collection / Unknown 12/09/2023 11:39 AM CDT 12/09/2023 11:49 AM CDT Jil Lang MD LAB - URINE CHILD WELFARE CONSULTANT RY ORDERABLES Performing Organization Address [facility] Co de Phone Number [facility] [address] [place] [phone] * (ABNORMAL) URINALYSIS REFLEX MICROSCOPIC REFLEX CULTURE (12/09/2023 11:39 AM CDT) Color UA Yellow Straw, Yellow 12/09/2023 12:03 PM CDT [facility] Clarity UA Slt Cloudy(A) Clear 12/09/2023 12:03 PM CDT [facility] Glucose UA Negative Negative 12/09/2023 12:03 PM CDT [facility] Bilirubin UA Negative Negative 12/09/2023 12:03 PM T [facility] Ketone UA Negative Negative 12/09/2023 12:03 PM T [facility] Specific [place] UA 1.014 1.005 - 1.030 12/09/2023 12:03 PM CDT [facility] Blood UA Negative Negative 12/09/2023 12:03 PM CDT [facility] pH UA 6.0 5.0 - 8.0 pH 12/09/2023 12:03 PM T [facility] Protein UA Negative Negative 12/09/2023 12:03 PM T [facility] Urobilinogen UA 4.0(A) Negative mg/dL 12/09/2023 12:03 PM T [facility] Nitrite UA Negative Negative 12/09/2023 12:03 PM T [facility] Leukocyte UA 2+(A) Negative 12/09/2023 12:03 PM T [facility] Urine Microscopy Urine microscopy to follow 12/09/2023 12:03 PM [facility] Reflex Status Culture to follow 12/09/2023 12:03 PM [facility] Urine URINE SPECIMEN OBTAINED BY CLEAN CATCH PROCEDURE / Unknown Collection / Unknown 12/09/2023 11:39 AM CDT 12/09/2023 11:49 AM CDT Narrative [facility] - 12/09/2023 12:03 PM CDT Ascorbic Acid can cause false negative urine strip tests for blood, glucose, nitrite, and bilirubin. Jil Lang MD LAB - URINALYSIS OR DERABLES [facility] [address] [place] [address] * (ABNORMAL) COMPREHENSIVE METABOLIC PANEL (12/09/2023 11:39 AM CDT) Glucose 78 70 - 105 mg/dL 12/09/2023 12:21 PM [facility] Sodium 138 136 - 145 mmol/L 12/09/2023 12:21 PM [facility] Potassium 4.0 3.5 - 5.1 mmol/L 12/09/2023 12:21 PM [facility] Chloride 107 98 - 107 mmol/L 12/09/2023 12:21 PM [facility] CO2 23 22 - 29 mmol/L 12/09/2023 12:21 PM [facility] Calcium 8.9 8.4 - 10.4 mg/dL 12/09/2023 12:21 PM [facility] Anion Gap 8 6 - 16 mmol/L 12/09/2023 12:21 PM [facility] BUN 5(L) 5.3 - 18.7 mg/dL 12/09/2023 12:21 PM [facility] Creatinine 0.51(L) 0.57 - 1.11 mg/dL 12/09/2023 12:21 PM [facility] Alkaline Phosphatase 82 40 - 150 U/L 12/09/2023 12:21 PM [facility] ALT 10 0 - 55 U/L 12/09/2023 12:21 PM [facility] AST 10 5 - 34 U/L 12/09/2023 12:21 PM [facility] Protein Total 6.5 6.4 - 8.3 gm/dL 12/09/2023 12:21 PM [facility] Albumin 3.0(L) 3.4 - 5.0 gm/dL 12/09/2023 12:21 PM [facility] Bilirubin Total 0.4 0.2 - 1.2 mg/dL 12/09/2023 12:21 PM [facility] eGFR by CKD-EPI >90 >=90 mL/min/1.7 3 m2 12/09/2023 12:21 PM [facility] Blood BLOOD SPECIMEN / Unknown Venipuncture / Unknown 12/09/2023 11:39 AM CDT 12/09/2023 11:48 AM CDT Jil Lang MD LAB - CHEMISTRY ORD ERABLES [facility] [address] [place] [address] * (ABNORMAL) CBC W AUTO DIFFERENTIAL (12/09/2023 11:39 AM CDT) [facility] WBC 9.5 4.0 - 10.7 x10E9/L 12/09/2023 12:01 PM CDT [facility] RBC Count 4.32 3.90 - 5.20 x10E12/L 12/09/2023 12:01 PM CDT [facility] Hemoglobin 11.2(L) 11.9 - 15.8 g/dL 12/09/2023 12:01 PM CDT [facility] Hematocrit 35.9 34.8 - 46.1 % 12/09/2023 12:01 PM CDT [facility] MCV 83.1 80.0 - 98.0 fL 12/09/2023 12:01 PM CDT [facility] MCH 25.9(L) 26.7 - 33.6 pg 12/09/2023 12:01 PM CDT [facility] MCHC 31.2(L) 31.7 - 36.3 g/dL 12/09/2023 12:01 PM CDT [facility] RDW-CV 13.7 11.3 - 14.8 % 12/09/2023 12:01 PM CDT [facility] Platelet Count 203 150 - 420 x10E9/L 12/09/2023 12:01 PM CDT [facility] MPV 10.9 7.8 - 11.4 fL 12/09/2023 12:01 PM CDT [facility] Neutrophil % 77.0(H) 41.0 - 74.0 % 12/09/2023 12:01 PM CDT [facility] Lymphocyte % 13.3(L) 17.0 - 47.0 % 12/09/2023 12:01 PM CDT [facility] Monocyte % 8.1 3.0 - 11.0 % 12/09/2023 12:01 PM CDT [facility] Eosinophil % 0.3 0.0 - 7.0 % 12/09/2023 12:01 PM CDT [facility] Basophil % 0.3 0.0 - 1.6 % 12/09/2023 12:01 PM CDT [facility] Immature Granulocytes % 1.0 0.0 - 1.0 % 12/09/2023 12:01 PM CDT [facility] Neutrophil Absolute 7.34 1.60 - 7.50 x10E9/L 12/09/2023 12:01 PM CDT [facility] Lymphocyte Absolute 1.27 1.00 - 4.40 x10E9/L 12/09/2023 12:01 PM CDT [facility] Monocyte Absolute 0.77 0.15 - 1.00 x10E9/L 12/09/2023 12:01 PM CDT [facility] Eosinophil Absolute 0.03 0.00 - 0.60 x10E9/L 12/09/2023 12:01 PM CDT [facility] Basophil Absolute 0.03 0.00 - 0.13 x10E9/L 12/09/2023 12:01 PM T [facility] Blood BLOOD SPECIMEN / Unknown Venipuncture / Unknown 12/09/2023 11:39 AM CDT 12/09/2023 11:49 AM CDT Jil Lang MD LAB - HEMATOLOGY OR DERABLES Performing Organization Address City/State/[facility] Co de Phone Number [facility] [address] [place] [address] documented in this encounter Visit [...] RN) documented in this encounter Care Teams Filling Carrier Relationship Specialty Start Date End Date Shana Easton MD [address] [address] PCP - General Family Medicine 01/09/20 documented as of this encounter
--- OUTSIDE RECORDS SUMMARY | 2024-03-15 18:23 | XMS_ITS | Encounter Summary ---
Author Organization [facility] Health Address [address] [facility] [place] [address] Care Team Providers Care House Painting Instructor Name Role Phone Shana Easton MD Primary Care Provider [phone] Reason for Visit * Reason Onset Date Comments Establish Care 12/09/2023 Encounter Details Date Type Department Care Team (Late st Contact Info) Description 12/09/2023 Telephone [facility] MATERNAL/ EVALUATION UNIT [facility] [facility] [place] [address] Lavinia Kennedy, RN Establish Care Social History [...] and heating? Not hard at all 12/09/2023 [facility] [place] of Occupat ional Health - Occupational Stress [...] slept in a alf (including now)? No 12/09/2023 Estimated Date of [...] She states she was receiving care with [facility] in [place], was seen @ [facility] on Saturday and was informed she [...] She was told to go return to [place] today for NST and blood pressure check. Scheduled for US and New OB with [facility] this week, encouraged patient to present to [facility] forevaluation of elevated blood pressures and headache. TIMOTEO Tam in [facility] notified of patient. documented in this encounter Plan of Treatment Upcoming Encounters Date Type Department Care Team (Late st Contact Info) Description 03/23/2024 Hospital Encounter [facility] [address] [place] [id number] documented as of this encounter Visit Diagnoses Not on filedocumented in this encounter Care Teams House Painting Instructor Relationship Specialty Start Date End Date Shana Easton MD [address] [address] PCP - General Family Medicine 01/09/20 documented as of this encounter
--- OUTSIDE RECORDS SUMMARY | 2024-03-15 18:23 | XMS_ITS | Encounter Summary ---
Author Organization [facility] Health Address [address] [facility] [place] [address] Care Team Providers Care Favor Maker Name Role Phone Shana Easton MD Primary Care Provider [phone] Encounter Details Date Type Department Care Team (Latest Contact Info) Description 12/10/2023 1:24 PM CDT - 12/10/2023 11:59 PM CDT Hospital Encounter [facility] [address] [place] [address] Jil Lang MD [address] [facility] [address] [place], [place] [id number] Discharge Disposition: Home or Self Care Social [...] and heating? Not hard at all 12/11/2023 [facility] [place] of Occupat ional Health - Occupational Stress [...] a care home (including now)? No 12/11/2023 [place] Depression Scale Answer Date Recorded [place] Depression Scale Total 0 12/11/2023 The thought [...] st Contact Info) Description 03/23/2024 Hospital Encounter [facility] [address] [place] [address] documented as of this encounter Procedures Procedure Name Priority Date/Time Associated Diagnosis Comments PROTEIN URINE TIMED QUANTITATIVE Routine 12/10/2023 1:25 PM CDT Short interval between pregnancies affecting , antepartum (HCC) documented in this encounter Results * PROTEIN URINE TIMED QUANTITATIVE (12/10/2023 1:25 PM CDT) Volume 24 Hour Urine 1,600 mL 12/10/2023 1:50 PM CDT [facility] Collection Time Hours 24 hrs 12/10/2023 1:50 PM CDT [facility] Protein 24 Hour Urine 12/10/2023 1:50 PM CDT [facility] Comment:Unable to calculate due to limited levels of measurable protein. Protein Urine <6.8 <11.9 mg/dL 12/10/2023 1:50 PM CDT [facility] Urine TIMED URINE SPECIMEN / Unknown Timed Urine Volume Measurement / Unknown 12/10/2023 1:25 PM CDT 12/10/2023 1:31 PM CDT Jil Lang MD LAB - URINE [employer] RY ORDERABLES [facility] [address] [place] [address] documented in this encounter Visit Diagnoses Diagnosis Short interval between pregnancies affecting , antepartum (HCC) documented in this encounter Care Teams Favor Maker Relationship Specialty Start Date End Date Shana Easton MD [address] [facility] [address] [place] [address] PCP - General Family Medicine 01/09/20 documented as of this encounter
--- OUTSIDE RECORDS SUMMARY | 2024-03-15 18:23 | XMS_ITS | Patient Health Summary ---
Author Organization [facility] Address [address] [place] [address] Care Team Providers Care Subway Guard Name Role Phone Shana Easton MD Primary Care Provider [phone] [facility],non-owned Affiliates and Associated Physician Practices is amultiple site organization consisting of ambulatory clinics and hospital sitesin [place], [place], [place] and [place]. This disclosure is being madepursuant to the Care Everywhere program and may not contain all information available regarding this patient. Last updated 17.[facility] Allergies * Ciprofloxacin(Other) * Levofloxacin(Rash) -Medium [...] mouth once daily * Blood Pressure Monitor [facility](Started 12/09/2023) Use 1 Units 2 times daily [...] and heating? Not hard at all 12/11/2023 [facility] [place] of Occupat ional Health - Occupational Stress [...] a skilled nursing (including now)? No 12/11/2023 [place] Depression Scale Answer Date Recorded [place] Depression Scale Total 0 12/11/2023 The thought [...] interval between pregnancies affecting , antepartum ([facility]) * NONSTRESS TEST(Performed 12/09/2023) * URINE MICROSCOPIC ONLY REFLEX TO CULTURE(Performed 12/09/2023) Performed for Poor growth affecting management of mother in third trimester, single or unspecified fetus ([facility]) * PROTEIN CREATININE RATIO URINE RANDOM PNL(Performed 12/09/2023) Performed for Poor growth affecting management of mother in third trimester, single or unspecified fetus ([facility]) * URINALYSIS REFLEX MICROSCOPIC REFLEX CULTURE(Performed 12/09/2023) Performed for Poor growth affecting management of mother in third trimester, single or unspecified fetus ([facility]) * COMPREHENSIVE METABOLIC PANEL(Performed 12/09/2023) Performed for Poor growth affecting management of mother in third trimester, single or unspecified fetus ([facility]) * CBC W AUTO DIFFERENTIAL(Performed 12/09/2023) Performed for Poor growth affecting management of mother in third trimester, single or unspecified fetus ([facility]) * CULTURE URINE(Performed 12/09/2023) Performed for Poor growth affecting management of mother in third trimester, single or unspecified fetus ([facility]) * SONOGRAM - COMPLETE(Performed 12/11/2022) Performed for History of labor, History of gestational hypertension, 29 weeks gestation of ([facility]), SGA (small for gestational age) ([facility]), Encounter for ultrasound to assess growth ([facility]) * SONOGRAM - COMPLETE(Performed 11/23/2022) Performed for Encounter for follow-up ultrasound of anatomy ([facility]), 26 weeks gestation of ([facility]), Family history of pyloric stenosis * SONOGRAM - COMPLETE(Performed 10/26/2022) Performed for High risk teen in third trimester ([facility]), Poor growth affecting management of mother in third trimester, single or unspecified fetus ([facility]), Short interval between pregnancies affecting , antepartum ([facility]), Encounter for ultrasound ([facility]) * SONOGRAM - COMPLETE(Performed 10/12/2022) Performed for History of delivery, currently ([facility]), High risk teen in third trimester ([facility]), Short interval between pregnancies affecting , antepartum ([facility]), 20 weeks gestation of ([facility]), Poor growth affecting management of mother in third trimester, single or unspecified fetus (HCC) * SONOGRAM - COMPLETE(Performed 09/26/2022) Performed for History of delivery, currently (HCC), Current bazzi with history of congenital heart disease in prior child, antepartum (HCC), History of miscarriage, currently (HCC), Cyst of ovary, unspecified laterality, History of breast lump/mass excision, 18 weeks gestation of ([facility]) * SKIN TEST PPD - POINT [...] 4 1:18 PM CDT [facility] Specific [place] UA POCT 1.010 1.005 - 1.030 12/11/2023 [...] POCT Negative Negative 12/11/2023 1:18 PM CDT [facility] Urobilinogen UA POCT 0.2 0.1 - 1.0 EU/dL 12/11/2023 1:18 PM CDT [facility] Urine URINE / Unknown 12/11/2023 1 :16 PM CDT 12/11/2023 1:18 PM CDT Zachery Alfred MD LAB - POINT OF CARE ORDERABLES Performing Organization Address City/State/[facility] Co de Phone Number [facility] [address] [place] [address] * SONOGRAM - COMPLETE (12/11/2023 12:16 PM CDT) Only the most recent of7 resultswithin the time period is included. Anatomical Region Laterality Modality Other 12/11/2023 12:1 6 PM CDT Narrative 12/11/2023 1:24 PM CDT ?[facility] ? [facility] [place] [facility] ?PHONE: ??FAX: Pat. Name: ?DIOGENES MONET Pat. No: ?[id number] Study Date: ?? 12/11/2023 ??12:16pm , Age: ? 2000, 23 Pregnancies: ?? 6, Para 3, Ab 2 Height: ? 63 in Weight: ? 135 lb LMP: ?Unknown GA by US: ? 29w6d ?? ANGIE: 02/20/2024 GA Selected: ??30w4d (From Known E) ANGIE: ?02/15/2024 Referring MD: Benita, , [facility] Contract Analyst: ??Andres Reyna, RDMS CPT4: ? [id number] BMI: ?23.91 Hist/Ind: ? SAGAR ?PreE w/o SF ?Short interval ?Elevated GCT- uknown GTT results MEASUREMENTS & AGE ? GROWTH EVALUATION Measurement ??GA ? Range ? Srce %for GA Ratios ----- ---- ------- BPD ??7.6 cm 30w2d (70b9o-27a5g) Hadl BPD 29% FL/BPD 0.74 (0.71 - 0.87) HC ??28.4 cm 31w1d (64l4i-04w4x) Hadl HC ??29% FL/AC ??0.21 (0.20 - 0.24) AC ??27.0 cm 31w1d (55n7n-15e0u) Hadl AC ??62% HC/AC ??1.05 (0.97 - 1.16) FL ?? 5.6 cm 29w2d (85u6v-31v7t) Hadl FL ??9% CI ? 0.74 (0.70 - 0.86) HL ?? 5.0 cm 29w0d (69b9v-22v4d) Zackery HL ??24% Cere 3.8 cm 31w2d (50r1n-22j0g) Hill Cere63% GA for sonogram 29w6d (11x5j-08f2p) ?? Weight Estimate: based on (BPD,HC,AC,FL) Hadlock [...] Signature> ??12/11/2023 01:14pm Revised Raman Medeiros MD [facility] ORDERABLES * IMAGING RADIOLOGY XRAY RESULTS ORDER (12/11/2023 3:33 AM CDT) Anatomical Region Laterality Modality Other Narrative 12/11/2023 3:33 AM CDT Ordered by an unspecified provider. Scanned Document IMAGING * PROTEIN URINE TIMED QUANTITATIVE (12/10/2023 1:25 PM CDT) Volume 24 Hour Urine 1,600 mL 12/10/2023 1:50 PM CDT [facility] Collection Time Hours 24 hrs 12/10/2023 1:50 PM CDT [facility] Protein 24 Hour Urine 12/10/2023 1:50 PM CDT [facility] Comment:Unable to calculate due to limited levels of measurable protein. Protein Urine <6.8 <11.9 mg/dL 12/10/2023 1:50 PM CDT [facility] Urine TIMED URINE SPECIMEN / Unknown Timed Urine Volume Measurement / Unknown 12/10/2023 1:25 PM CDT 12/10/2023 1:31 PM CDT Jil Lang MD LAB - URINE BYPRODUCTS EXTRACTOR RY ORDERABLES [facility] [address] [place] [address] * NONSTRESS TEST (12/09/2023 1:00 PM CDT) [...] OTHER INFORMATION Nydia Escobedo RN Non-Stress Test [facility] Patient Name: Diogenes Monet LMP: No LMP [...] Culture to follow 12/09/2023 12:05 PM CDT [facility] RBC UA 0-2 0 - 5 # /hpf 12/09/2023 12:05 PM CDT [facility] WBC UA 11-20(A) 0 - 5 # /hpf 12/09/2023 12:05 PM CDT [facility] Bacteria UA Trace(A) None Seen 12/09/2023 12:05 PM CDT [facility] Squamous Epithelial Cells 11-20(A) 0 - 5 /hpf 12/09/2023 12:05 PM CDT [facility] Mucus UA 3+ /LPF 12/09/2023 12:05 PM CDT [facility] Urine URINE SPECIMEN OBTAINED BY CLEAN CATCH PROCEDURE / Unknown Collection / Unknown 12/09/2023 11:39 AM CDT 12/09/2023 11:49 AM CDT Narrative [facility] - 12/09/2023 12:05 PM CDT Jil Lang MD LAB - URINALYSIS OR DERABLES Performing Organization Address City/State/[facility] Co de Phone Number [facility] [address] [place] [address] * (ABNORMAL) URINALYSIS REFLEX MICROSCOPIC REFLEX CULTURE (12/09/2023 11:39 AM CDT) Color UA Yellow Straw, Yellow 12/09/2023 12:03 PM CDT [facility] Clarity UA Slt Cloudy(A) Clear 12/09/2023 12:03 PM CDT [facility] Glucose UA Negative Negative 12/09/2023 12:03 PM CDT [facility] Bilirubin UA Negative Negative 12/09/2023 12:03 PM CDT [facility] Ketone UA Negative Negative 12/09/2023 12:03 PM CDT [facility] Specific [place] UA 1.014 1.005 - 1.030 12/09/2023 12:03 PM CDT [facility] Blood UA Negative Negative 12/09/2023 12:03 PM CDT [facility] pH UA 6.0 5.0 - 8.0 pH 12/09/2023 12:03 PM CDT [facility] Protein UA Negative Negative 12/09/2023 12:03 PM CDT [facility] Urobilinogen UA 4.0(A) Negative mg/dL 12/09/2023 12:03 PM CDT [facility] Nitrite UA Negative Negative 12/09/2023 12:03 PM CDT [facility] Leukocyte UA 2+(A) Negative 12/09/2023 12:03 PM CDT [facility] Urine Microscopy Urine microscopy to follow 12/09/2023 12:03 PM CDT [facility] Reflex Status Culture to follow 12/09/2023 12:03 PM CDT [facility] Urine URINE SPECIMEN OBTAINED BY CLEAN CATCH PROCEDURE / Unknown Collection / Unknown 12/09/2023 11:39 AM CDT 12/09/2023 11:49 AM CDT Narrative [facility] - 12/09/2023 12:03 PM CDT Ascorbic Acid can cause false negative urine strip tests for blood, glucose, nitrite, and bilirubin. Jil Lang MD LAB - URINALYSIS OR DERABLES Performing Organization Address City/[facility]/ZIP Co de Phone Number [facility] [address] [place] [address] * CULTURE URINE (12/09/2023 11:39 AM CDT) [facility] Culture Urine 50,000-100,000 CFU/mL urogenital marcos BRENDA 12/11/2023 12:54 AM CDT [facility] Urine URINE SPECIMEN OBTAINED BY CLEAN CATCH PROCEDURE / Unknown Collection / Unknown 12/09/2023 11:39 AM CDT 12/09/2023 11:49 AM CDT Jil Lang MD LAB - MICROBIOLOGY ORDERABLES Performing Organization Address City/[facility]/ZIP Co de Phone Number [facility] [address] [place] [address], [facility] [phone] * (ABNORMAL) CBC W AUTO DIFFERENTIAL (12/09/2023 11:39 AM CDT) [facility] WBC 9.5 4.0 - 10.7 x10E9/L 12/09/2023 12:01 PM [facility] RBC Count 4.32 3.90 - 5.20 x10E12/L 12/09/2023 12:01 PM [facility] Hemoglobin 11.2(L) 11.9 - 15.8 g/dL 12/09/2023 12:01 PM [facility] Hematocrit 35.9 34.8 - 46.1 % 12/09/2023 12:01 PM [facility] MCV 83.1 80.0 - 98.0 fL 12/09/2023 12:01 PM [facility] MCH 25.9(L) 26.7 - 33.6 pg 12/09/2023 12:01 PM [facility] MCHC 31.2(L) 31.7 - 36.3 g/dL 12/09/2023 12:01 PM [facility] RDW-CV 13.7 11.3 - 14.8 % 12/09/2023 12:01 PM [facility] Platelet Count 203 150 - 420 x10E9/L 12/09/2023 12:01 PM [facility] MPV 10.9 7.8 - 11.4 fL 12/09/2023 12:01 PM [facility] Neutrophil % 77.0(H) 41.0 - 74.0 % 12/09/2023 12:01 PM [facility] Lymphocyte % 13.3(L) 17.0 - 47.0 % 12/09/2023 12:01 PM [facility] Monocyte % 8.1 3.0 - 11.0 % 12/09/2023 12:01 PM [facility] Eosinophil % 0.3 0.0 - 7.0 % 12/09/2023 12:01 PM [facility] Basophil % 0.3 0.0 - 1.6 % 12/09/2023 12:01 PM [facility] Immature Granulocytes % 1.0 0.0 - 1.0 % 12/09/2023 12:01 PM [facility] Neutrophil Absolute 7.34 1.60 - 7.50 x10E9/L 12/09/2023 12:01 PM CDT [facility] Lymphocyte Absolute 1.27 1.00 - 4.40 x10E9/L 12/09/2023 12:01 PM CDT [facility] Monocyte Absolute 0.77 0.15 - 1.00 x10E9/L 12/09/2023 12:01 PM CDT [facility] Eosinophil Absolute 0.03 0.00 - 0.60 x10E9/L 12/09/2023 12:01 PM CDT [facility] Basophil Absolute 0.03 0.00 - 0.13 x10E9/L 12/09/2023 12:01 PM CDT [facility] Blood BLOOD SPECIMEN / Unknown Venipuncture / Unknown 12/09/2023 11:39 AM CDT 12/09/2023 11:49 AM CDT Jil Lang MD LAB - HEMATOLOGY OR DERABLES Performing Organization Address [facility] Co de Phone Number [facility] [address] [place] [address] * (ABNORMAL) COMPREHENSIVE METABOLIC PANEL (12/09/2023 11:39 AM CDT) Glucose 78 70 - 105 mg/dL 12/09/2023 12:21 PM CDT [facility] Sodium 138 136 - 145 mmol/L 12/09/2023 12:21 PM CDT [facility] Potassium 4.0 3.5 - 5.1 mmol/L 12/09/2023 12:21 PM CDT [facility] Chloride 107 98 - 107 mmol/L 12/09/2023 12:21 PM CDT [facility] CO2 23 22 - 29 mmol/L 12/09/2023 12:21 PM CDT [facility] Calcium 8.9 8.4 - 10.4 mg/dL 12/09/2023 12:21 PM CDT [facility] Anion Gap 8 6 - 16 mmol/L 12/09/2023 12:21 PM CDT [facility] BUN 5(L) 5.3 - 18.7 mg/dL 12/09/2023 12:21 PM CDT [facility] Creatinine 0.51(L) 0.57 - 1.11 mg/dL 12/09/2023 12:21 PM T [facility] Alkaline Phosphatase 82 40 - 150 U/L 12/09/2023 12:21 PM CDT [facility] ALT 10 0 - 55 U/L 12/09/2023 12:21 PM T [facility] AST 10 5 - 34 U/L 12/09/2023 12:21 PM T [facility] Protein Total 6.5 6.4 - 8.3 gm/dL 12/09/2023 12:21 PM T [facility] Albumin 3.0(L) 3.4 - 5.0 gm/dL 12/09/2023 12:21 PM T [facility] Bilirubin Total 0.4 0.2 - 1.2 mg/dL 12/09/2023 12:21 PM [facility] eGFR by CKD-EPI >90 >=90 mL/min/1.7 3 m2 12/09/2023 12:21 PM T [facility] Blood BLOOD SPECIMEN / Unknown Venipuncture / Unknown 12/09/2023 11:39 AM CDT 12/09/2023 11:48 AM CDT Jil Lang MD LAB - CHEMISTRY ORD ERABLES [facility] [address] [place] [address] * PROTEIN CREATININE RATIO URINE RANDOM PNL (12/09/2023 11:39 AM CDT) Protein Urine 7.1 <11.9 mg/dL 12/09/2023 12:23 PM T [facility] Creatinine Urine 80.19 mg/dL 12/09/2023 12:23 PM CDT [facility] Protein/Creatin ine Ratio Urine 0.09 12/09/2023 12:23 PM T [facility] Urine URINE SPECIMEN OBTAINED BY CLEAN CATCH PROCEDURE / Unknown Collection / Unknown 12/09/2023 11:39 AM CDT 12/09/2023 11:49 AM CDT Jil Lang MD LAB - URINE BYPRODUCTS EXTRACTOR RY ORDERABLES [facility] [address] [id number] * SKIN TEST PPD - POINT OF [...] AM CDT) Result CASE NUMBER [id number] [facility] PATH REPORT Comment: ORDERING PHYSICIAN [...] ?PLACENTA B ? - NO PATHOLOGIC DIAGNOSIS. Continuous Process Tanner Rotary Drum ? Melina Bustillos RESIDENT IN PATHOLOG Ar Wellington M.D. PATHOLOGIST ?Art Guido M.D. ELECTRONICALLY MAUArt Perry MISCELLANEOUS SAMPLES / Unknown 1998 10:00 AM CDT 1998 10:35 AM CDT Historical Provider MD LAB - PATHOLOGY/C YTOLOGY ORDERABLES [facility] PATH REPORT Care Teams Subway Guard Relationship Specialty Start Date End Date Shana Easton MD [address] [address] PCP - General Family Medicine 01/09/20
--- OUTSIDE RECORDS SUMMARY | 2024-03-15 18:24 | XMS_ITS | Encounter Summary ---
Author Organization [facility] Address [address] [place] [address] Care Team Providers Care Desk Top Publisher Name Role Phone Shana Easton MD Primary Care Provider [phone] Encounter Details Date Type Department Care Team [...] st Contact Info) Description 03/23/2024 Hospital Encounter [facility] [address] [place] [address] documented as of this encounter Visit Diagnoses Not on filedocumented in this encounter Care Teams Desk Top Publisher Relationship Specialty Start Date End Date Shana Easton MD [address] [place] [address] PCP - General Family Medicine 01/09/20 documented as of this encounter
--- OUTSIDE RECORDS SUMMARY | 2024-03-15 18:24 | XMS_ITS | Encounter Summary ---
Author Organization [facility] Address [address] [place] [address] Care Team Providers Care Activities Leader Name Role Phone Unavailable Primary Care Provider Unavailabl e Reason for Visit * Reason Comments PPD Skin Test Placement Encounter Details Date Type Department Care Team (Late st Contact Info) Description 05/18/2019 6:40 PM BRAID PATTERN SETTER Clinical Support [facility] AT [address] [phone] Provider, [facility] PPD screening test Social History Tobacco Use [...] concerns today. Alee Ball 05/20/2019 6:49 PM D PATTERN SETTER * Jennifer Baker APRN-CNP - 05/18/2019 6:32 [...] to return for reading within 48-72 hours. D PATTERN SETTER documented in this encounter Plan of Treatment Upcoming Encounters Date Type Department Care Team (Late st Contact Info) Description 03/23/2024 Hospital Encounter [facility] 5 [facility] [address] [place] [address] documented as of this encounter Procedures Procedure Name Priority Date/Time Associated Diagnosis Comments SKIN TEST PPD - POINT OF CARE Routine 05/20/2019 6:49 PM BRAID PATTERN SETTER PPD screening test documented in this encounter Results * SKIN TEST PPD - POINT OF CARE (05/20/2019 6:49 PM BRAID PATTERN SETTER) PPD 0 MM Comment:negative Other MISCELLANEOUS SAMPLE S / Unknown 05/20/2019 6:49 PM BRAID PATTERN SETTER Jennifer SELF LAB - POINT OF CARE ORDERABLES documented in this encounter Visit Diagnoses Diagnosis PPD screening test- Primary Screening examination for pulmonary tuberculosis documented in this encounter Administered Medications Administered Medications Medication Order MAR Action Action Date Dose Rate Site PPD Intradermal Given 05/18/2019 0.1 mL Left Forearm documented in this encounter
--- OUTSIDE RECORDS SUMMARY | 2024-03-15 18:24 | XMS_ITS | Encounter Summary ---
Author Organization [facility] Address [address] [place] [address] Care Team Providers Care Short Story Writer Name Role Phone Shana Easton MD Primary Care Provider [phone] Reason for Visit * Reason Comments Imm Inj PPD Skin Test Placement Encounter Details Date Type Department Care Team (Late st Contact Info) Description 01/16/2020 10:00 AM CDT Office Visit [facility] AT [address] [address] Provider[facility] PPD screening test (Primary Dx); Flu vaccine [...] Placement note: Mariam Lea presents to the [facility] for placement of a TB [...] patient. Patient tolerated well. Asia Moncada DNP, DIRECTOR CHEMISTRY-BC It is flu (prevention) season. 1) Influenza [...] a record of all vaccinations. (may use [facility] MyChart if desired) -May take Tylenol [...] st Contact Info) Description 03/23/2024 Hospital Encounter [facility] [address] [place] [address] documented as of this encounter Procedures Procedure [...] Unknown 01/16/2020 10:15 AM CDT Asia Moncada DRILL FOREMAN-DRUM DYEING MACHINE OPERATOR LAB - POINT OF CARE ORDERABLES [...] Forearm documented in this encounter Care Teams Short Story Writer Relationship Specialty Start Date End Date Shana Easton MD [address] [place] [phone] PCP - General Family Medicine 01/09/20 documented as of this encounter
--- OUTSIDE RECORDS SUMMARY | 2024-03-15 18:24 | XMS_ITS | Encounter Summary ---
Author Organization [facility] Address [address] [place] [address] Care Team Providers Care Mva Reactor Operator Name Role Phone Shana Easton MD Primary Care Provider [phone] Reason for Visit * Reason Comments PPD Skin Test Placement Encounter Details Date Type Department Care Team (Late st Contact Info) Description 01/06/2020 4:40 PM CDT Office Visit [facility] AT [address] [address] Provider, [facility] Exp [facility] Visit for TB skin test (Primary Dx) [...] Placement note: Mariam Lea presents to the [facility] for placement of a TB [...] Hospital Encounter [facility] 5 [facility] [address] [place] [address] documented as of this encounter Procedures Procedure [...] Forearm documented in this encounter Care Teams Mva Reactor Operator Relationship Specialty Start Date End Date Shana Easton MD [address] [place] [phone] PCP - General Family Medicine 01/09/20 documented as of this encounter
--- OUTSIDE RECORDS SUMMARY | 2024-03-15 18:24 | XMS_ITS | Encounter Summary ---
Author Organization [facility] Address [address] [place] [address] Care Team Providers Care Sap Project Manager Name Role Phone Shana Easton MD Primary Care Provider [phone] Reason for Visit * Reason Onset Date Comments Imaging Results 10/29/2022 Patient has ques tion about imaging results. Encounter Details Date Type Department Care Team (Late st Contact Info) Description 10/29/2022 Telephone [facility] Maternal & Care [address] [place] [address] Kathe Schafer doctor of chiropractic Results (Patient has question about imaging results. [...] results from Saturday as she states the heat treat inspector said she did notsee the echogenicities in the liver/bowel on Saturday but MFM reports seeing borderline echogenicities still. Discussed we will continue to follow her with ultrasounds. [facility] recommended cf dna, CF, Torch/ parvo labs. Patient states she had a Low risk NIPT, Negative CF screen and she would like to do the TORCH/parvo labs. Patient aware she can go to [facility] at any time for lab draw. TIMOTEO Whitaker from [facility] placed orders for patient to have done. Patient verbalized understanding. documented in this encounter Plan of Treatment Upcoming Encounters Date Type Department Care Team (Late st Contact Info) Description 03/23/2024 Hospital Encounter [facility] [address] [place] [address] documented as of this encounter Visit Diagnoses Not on filedocumented in this encounter Care Teams Sap Project Manager Relationship Specialty Start Date End Date Shana Easton MD [address] [address] PCP - General Family Medicine 01/09/20 documented as of this encounter
--- OUTSIDE RECORDS SUMMARY | 2024-03-15 18:24 | XMS_ITS | Encounter Summary ---
Author Organization [facility] Address [address] [place] [address] Care Team Providers Care Returned Goods Receiving Clerk Name Role Phone Shana Easton MD Primary Care Provider [phone] Reason for Visit * Reason Onset Date Comments Appointment 08/27/2022 LM to C/S appt Encounter Details Date Type Department Care Team (Late st Contact Info) Description 08/27/2022 Telephone [facility] Maternal & Care [address] [place] [address] Regine Snowden Appointment (LM to [...] Encounter [facility] [address] [place], [place] [id number] documented as of this encounter Visit Diagnoses Not on filedocumented in this encounter Care Teams Returned Goods Receiving Clerk Relationship Specialty Start Date End Date Shana Easton MD [address] [place] [address] PCP - General Family Medicine 01/09/20 documented as of this encounter
--- OUTSIDE RECORDS SUMMARY | 2024-03-15 18:24 | XMS_ITS | Encounter Summary ---
Author Organization [facility] Address [address] [place] [address] Care Team Providers Care Power Plant Manager Name Role Phone Unavailable Primary Care [...] st Contact Info) Description 03/23/2024 Hospital Encounter [facility] [address] [place] [address] documented as of this encounter Visit Diagnoses Not on filedocumented in this encounter
--- OUTSIDE RECORDS SUMMARY | 2024-03-15 18:24 | XMS_ITS | Encounter Summary ---
Author Organization [facility] Address [address] [place] [address] Care Team Providers Care Retirement Benefits Specialist Name Role Phone Shana Easton MD Primary Care Provider [phone] Reason for Visit * Reason Comments School Physical Encounter Details Date Type Department Care Team (Latest Contact Info) Description 01/09/2020 2:40 PM CDT Clinical Support [facility] AT [address] [address] School physical exam Social History Tobacco Use [...] this encounter Progress Notes * Asia Ospina, SAILING OFFICER-REVERBERATORY FURNACE OPERATOR - 01/09/2020 2:47 PM CDT Mariam Lea is a 19 year old female patient, 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 Medications reviewed. No outpatient medications have been marked as taking for the 01/09/20 encounter (Clinical Support) with [facility]. Allergies Allergen Reactions ??? Levofloxacin Rash [...] file Gets together: Not on file Attends anglican service: Not on file Active member of [...] and returned to patient and scanned into [employer]. Reviewed health maintenance and substance abuse as appropriate. Continue to follow-up with Shana Easton MD as directed-if no PCP, referral given. .ARAMIS Estrada 01/09/2020 3:15 PM documented in this encounter Plan of Treatment Upcoming Encounters Date Type Department Care Team (Late st Contact Info) Description 03/23/2024 Hospital Encounter [facility] [address] [place] [address] documented as of this encounter Visit Diagnoses Diagnosis School physical exam- Primary Health examination of defined subpopulation documented in this encounter Care Teams Retirement Benefits Specialist Relationship Specialty Start Date End Date Shana Easton MD [address] [place] [address] PCP - General Family Medicine 01/09/20 documented as of this encounter
--- OUTSIDE RECORDS SUMMARY | 2024-03-15 18:24 | XMS_ITS | Encounter Summary ---
Author Organization [facility] Address [address] [place] [address] Care Team Providers Care Airplane Cleaner Name Role Phone Shana Easton MD Primary Care Provider [phone] Reason for Referral * (Routine) - Closed Specialty Diagnoses / Procedures Referred By Contac t Referred To Contact Diagnoses History of delivery, currently ([facility]) Current patel with history of congenital heart disease in prior child, antepartum ([facility]) History of miscarriage, currently ([facility]) Cyst of ovary, unspecified laterality History of breast lump/mass excision 18 weeks gestation of ([facility]) Procedures SONOGRAM - COMPLETE Bolivar Green MD [address] [place] [address] Referral ID Status Reason Start Date Expiration Date Visits Re quested Visits Authorized [id number] Closed 09/18/2022 09/18/2023 1 1 Reason for Visit * Evaluate & Treat (Routine) - Closed Specialty Diagnoses / Procedures Referred By Contac t Referred To Contact Maternal Medicine Diagnoses care for patient with recurrent loss, unspecified trimester ([facility]) History of delivery, currently ([facility]) Current patel with history of congenital heart disease in prior child, antepartum ([facility]) Procedures RI SONO COMPLETE RI ULTRASND,PREG UTER,TRANSVAGIN Jil Lang MD [address] [address] [facility] [address] [place] [address] Referral ID Status Reason Start Date Expiration Date Visits Re quested Visits Authorized [id number] Closed 09/26/2022 09/26/2023 1 1 Encounter Details Date Type Department Care Team (Latest Contact Info) Description 09/26/2022 8:33 AM CDT - 09/26/2022 8:37 AM CDT Hospital Encounter [facility] Maternal & Care [address] [place] [address] Jin Ho MD [address] [address] Discharge Disposition: Home or Self [...] st Contact Info) Description 03/23/2024 Hospital Encounter [facility] [address] [place] [address] documented as of this encounter Procedures Procedure Name Priority Date/Time Associated Diagnosis Comments SONOGRAM - COMPLETE Routine 09/26/2022 8 :42 AM CDT History of delivery, currently (HCC) Current patel with history of congenital heart disease in prior child, antepartum ([facility]) History of miscarriage, currently ([facility]) Cyst of ovary, unspecified laterality History of breast lump/mass excision 18 weeks gestation of (HCC) documented in this encounter Results * SONOGRAM - COMPLETE (09/26/2022 8:42 AM CDT) Anatomical Region Laterality Modality Other 09/26/2022 8:42 AM CDT Narrative 09/26/2022 11:08 AM CDT ? [facility] ?Maternal and Care Center ?PHONE: ??FAX: Pat. Name: ?DIOGENES MONET Pat. No: ?[id number] Study Date: ?? 09/26/2022 ??8:42am , Age: ? 2000, 21 Pregnancies: ?? 5, Para 1122 Height: ? 63 in Weight: ? 107 lb LMP: ?05/19/2022 GA by LMP: ?18w4d GA by US: ? 18w5d ?? ANGIE: 02/22/2023 GA Selected: ??18w4d (LMP) ANGIE: ?02/23/2023 Referring MD: Tal Green MD Telehealth Coordinator: ??Belkys Wood RDMS, RDEMMETT CPT4: ? [address]42[address] BMI: ?18.95 Hist/Ind: ? G1: SAB @ [...] ----- ---- ------- BPD ??4.0 cm 18w0d (63n4k-67l9n) Hadl BPD 26% FL/BPD 0.64 HC ??14.8 cm 17w6d (86u3w-33v3m) Hadl HC ??13% FL/AC ??0.19 AC ??13.8 cm 19w1d (57l5j-57r3r) Hadl AC ??66% HC/AC ??1.07 (1.07 - 1.26) FL ?? 2.6 cm 17w5d (62m8x-79p8v) Hadl FL ??15% CI ? 0.75 (0.70 - 0.86) HL ?? 2.5 cm 17w5d (73p5h-15x3t) Zackery HL ??36% Cere 1.8 cm 17w5d (39v3p-77d1e) Hill Cere12% GA for sonogram 18w5d (84p3q-89n6i) ?? Weight Estimate: based on (BPD,AC) Hadlock [...] stated EDC from LMP * Referred to [facility] for consult & obstetrical U/S secondary [...] our MFM group ? - In May-2022 [employer] voluntarily pulled [place] off the market ? - Daily intravaginal [...] implicated in IHPS including: ? - IHPS1 (326424) on chromosome 12q ? - IHPS2 (497800) on chromosome 83d29-k75 ? - IHPS3 (813531) on chromosome 74t32-v75 ? - IHPS4 (507354) on chromosome Xq23 ? - IHPS5 (814914) on chromosome 16q24 ? - Multifactorial sex-modified threshold model of inheritance ? - Affected males outnumbering females 4:1 ? - Lopez (196) estimated that the recurrence risk ? - For males born after an affected child 10% ? - For females born after an affected child 2% ? - Maykel 1996 reported varied incidence between [place] population groups ? - White 1.9 per 1,000 live births ? - 1.8 per 1,000 live births ? - Black 0.7 per 1,000 live births ? - 0.6 per 1,000 live births ? - Angelic (2010) performed a population-based study of pyloric stenosis ? - Among 1,999,738 children born in [place] between 3787-6150 ? - Followed up for the first year of life ? - Surgery for pyloric stenosis occurred in 3,362 children ? - 2,741 (81.5%) were boys, resulting in a zeqx-cy-puooey ratio of 4.4:1 ? - Incidence rate [...] present ? - Please notify the baby's Hourly Shift Manager of the above history COMMENTS * Thank you very much for requesting MFM participation in her obstetrical care * Findings were explained & questions were addressed & precautions were given to patient * U/S does not detect all structural & functional ffjnjbjh-mvlgz-zxwgwekwv abnormalities * Telemedicine services were performed for this U/S examination & MFM consultation ? - Patient's identity was confirmed at the [facility] office ? - Appropriateness of the telehealth consult was confirmed ? - Informed consent for telemedicine services was obtained & scanned into EMR ? - Modality was secure interactive audio-video session using Epic/Zoom ? - Patient site location was our [facility] & nurse presenter was Vannessa Mosquera ? - Distant site provider was Jin Ho MD & location was home office ? - Consult = 60 minutes, >50% involving yjrk-fb-oxxl counseling & coordination of care Jin Ho MD <Electronic Signature> ??09/26/2022 11:08am R Lamont Green MD [facility] ORDERABLES documented in this encounter Visit Diagnoses Diagnosis History of delivery, currently (HCC) with history of pre-term labor Current patel with history of congenital heart disease in prior child, antepartum ([facility]) History of miscarriage, currently ([facility]) Cyst of ovary, unspecified laterality History of breast lump/mass excision Other postprocedural status 18 weeks gestation of (HCC) state, incidental documented in this encounter Care Teams Airplane Cleaner Relationship Specialty Start Date End Date Shana Easton MD [address] [facility] [address] [place] [address] PCP - General Family Medicine 01/09/20 documented as of this encounter
--- OUTSIDE RECORDS SUMMARY | 2024-03-15 18:24 | XMS_ITS | Encounter Summary ---
Author Organization [facility] Address [address] [place] [address] Care Team Providers Care Bartender Helper Name Role Phone Shana Easton MD Primary Care Provider Reason for Referral * Consult, Test & [...] MATERNAL MEDICINE CONSULT Bolivar Green MD [address] [place] [address] Referral ID Status Reason Start Date Expiration Date Visits Re quested Visits Authorized [id number] Closed 09/18/2022 09/18/2023 1 1 * (Routine) [...] SONOGRAM - COMPLETE Bolivar Green MD [address] [place] [address] Referral ID Status Reason Start Date Expiration Date Visits Re quested Visits Authorized [id number] Closed 09/18/2022 09/18/2023 1 1 Reason for Visit * Reason Comments Ultrasound Consultation Encounter Details Date Type Department Care Team (Latest Contact Info) Description 09/26/2022 8:38 AM CDT - 09/26/2022 11:59 PM CDT Hospital Encounter [facility] Maternal & Care [address] [place] [address] Jin Ho MD [address] [address] Discharge Disposition: Home or Self [...] Ho MD - 09/26/2022 10:43 AM CDT [facility] CONSULT ASSESSMENT * Patel IUP at 18 weeks of gestation by stated EDC from LMP * Referred to [facility] for consult & obstetrical U/S secondary [...] by our M group - In May-2022 [employer] voluntarily pulled [place] off the market - Daily intravaginal progesterone [...] was high until pyloromyotomy was developed by Ramstpaiget (1912) - Known risk factors include: - Male sex, , First born, Younger maternal age - Smoking, Bottle feeding, Macrolide antibiotics administered to infants - Multiple susceptibility loci have been implicated in IHPS including: - IHPS1 (393424) on chromosome 12q - IHPS2 (740869) on chromosome 08z32-d53 - IHPS3 (531354) on chromosome 82y64-l05 - IHPS4 (171912) on chromosome Xq23 - IHPS5 (785044) on chromosome 16q24 - Multifactorial sex-modified threshold model of inheritance - Affected males outnumbering females 4:1 - Lopez (1961) estimated that the recurrence risk - For males born after an affected child 10% - For females born after an affected child 2% - Maykel 1996 reported varied incidence between [place] infant population groups - White 1.9 per 1,000 live births - 1.8 per 1,000 live births - Black 0.7 per 1,000 live births - 0.6 per 1,000 live births - Angelic (2010) performed a population-based study of pyloric stenosis - Among 1,999,738 children born in [place] between 4541-9382 - Followed up for the first year of life - Surgery for pyloric stenosis occurred in 3,362 children - 2,741 (81.5%) were boys, resulting in a ggpv-vh-kxccoz ratio of 4.4:1 - Incidence rate per [...] at present - Please notify the baby's Consumer Affairs Specialist of the above history COMMENTS * Thank you very much for requesting [facility] participation in her obstetrical care * Findings were explained & questions were addressed & precautions were given to patient * U/S does not detect all structural & functional bnqikofo-heamy-urkfopbxx abnormalities * Telemedicine services were performed for this U/S examination & M consultation - Patient's identity was confirmed at the [facility] office - Appropriateness of the telehealth consult was confirmed - Informed consent for telemedicine services was obtained & scanned into EMR - Modality was secure interactive audio-video session using Asana[employer] - Patient site location was [facility] & nurse presenter was Vannessa Mosquera - Distant site provider was Jin Ho MD & location was home office - Consult = 60 minutes, >50% involving qwdp-wt-qsmy counseling & coordination of care Jin Ho MD Supervisor [employer], TAPE MAKING MACHINE OPERATOR [facility] documented in this encounter Plan of Treatment Upcoming Encounters Date Type Department Care Team (Late st Contact Info) Description 03/23/2024 Hospital Encounter [facility] [address] [place] [address] documented as of this encounter Results * SONOGRAM - COMPLETE (09/26/2022 8:42 AM CDT) Anatomical Region Laterality Modality Other 09/26/2022 8:42 AM CDT Narrative 09/26/2022 11:08 AM CDT ? [facility] ?Maternal and Care Center ?PHONE: ??FAX: Pat. Name: ?DIOGENES MONET Pat. No: ?[id number] Study Date: ?? 09/26/2022 ??8:42am , Age: ? 2000, 21 Pregnancies: ?? 5, Para 1122 Height: ? 63 in Weight: ? 107 lb LMP: ?05/19/2022 GA by LMP: ?18w4d GA by US: ? 18w5d ?? ANGIE: 02/22/2023 GA Selected: ??18w4d (LMP) ANGIE: ?02/23/2023 Referring MD: Tal Green MD Supervisor Pipe Finishing: ??Belkys Wood, RDMS, RDCS CPT4: ? 44261,56536 BMI: ?18.95 Hist/Ind: ? G1: SAB @ [...] ----- ---- ------- BPD ??4.0 cm 18w0d (71y4d-47r9b) Hadl BPD 26% FL/BPD 0.64 HC ??14.8 cm 17w6d (20v4z-57c4a) Hadl HC ??13% FL/AC ??0.19 AC ??13.8 cm 19w1d (39f4e-52y8a) Hadl AC ??66% HC/AC ??1.07 (1.07 - 1.26) FL ?? 2.6 cm 17w5d (42h2x-84x4d) Hadl FL ??15% CI ? 0.75 (0.70 - 0.86) HL ?? 2.5 cm 17w5d (70b7j-87v6v) Zackery HL ??36% Cere 1.8 cm 17w5d (26t1k-31b3s) Hill Cere12% GA for sonogram 18w5d (44x8w-10u1z) ?? Weight Estimate: based on (BPD,AC) Hadlock [...] stated EDC from LMP * Referred to [facility] for consult & obstetrical U/S secondary [...] our M group ? - In May-2022 [employer] voluntarily pulled [place] off the market ? - Daily intravaginal [...] implicated in IHPS including: ? - IHPS1 (580121) on chromosome 12q ? - IHPS2 (408483) on chromosome 92b72-z02 ? - IHPS3 (407579) on chromosome 08u64-t85 ? - IHPS4 (031624) on chromosome Xq23 ? - IHPS5 (252043) on chromosome 16q24 ? - Multifactorial sex-modified threshold model of inheritance ? - Affected males outnumbering females 4:1 ? - Lopez (1961) estimated that the recurrence risk ? - For males born after an affected child 10% ? - For females born after an affected child 2% ? - Maykel 1996 reported varied incidence between [place] population groups ? - White 1.9 per 1,000 live births ? - 1.8 per 1,000 live births ? - Black 0.7 per 1,000 live births ? - 0.6 per 1,000 live births ? - Angelic (2010) performed a population-based study of pyloric stenosis ? - Among 1,999,738 children born in [place] between 2985-2433 ? - Followed up for the first year of life ? - Surgery for pyloric stenosis occurred in 3,362 children ? - 2,741 (81.5%) were boys, resulting in a cuou-wf-uohpku ratio of 4.4:1 ? - Incidence rate [...] present ? - Please notify the baby's Consumer Affairs Specialist of the above history COMMENTS * Thank you very much for requesting [facility] participation in her obstetrical care * Findings were explained & questions were addressed & precautions were given to patient * U/S does not detect all structural & functional gmlqpblr-wdstl-uiumdmnnw abnormalities * Telemedicine services were performed for this U/S examination & MFM consultation ? - Patient's identity was confirmed at the [facility] office ? - Appropriateness of the telehealth consult was confirmed ? - Informed consent for telemedicine services was obtained & scanned into EMR ? - Modality was secure interactive audio-video session using Asana/[employer] ? - Patient site location was our [facility] & nurse presenter was Vannessa Mosquera ? - Distant site provider was Jin Ho MD & location was home office ? - Consult = 60 minutes, >50% involving ngai-tx-euyz counseling & coordination of care Jin Ho MD <Electronic Signature> ??09/26/2022 11:08am R Lamont Green MD [facility] ORDERABLES documented in this encounter Visit Diagnoses Diagnosis History of delivery, currently ([facility]) with history of pre-term labor Current patel with history of congenital heart disease in prior child, antepartum ([facility]) History of miscarriage, currently ([facility]) Cyst of ovary, unspecified laterality History of breast lump/mass excision Other postprocedural status 18 weeks gestation of ([facility]) state, incidental History of delivery, currently ([facility])- Primary with history of pre-term labor Current patel with history of congenital heart disease in prior child, antepartum ([facility]) History of miscarriage, currently ([facility]) Cyst of ovary, unspecified laterality History of breast lump/mass excision Other postprocedural status High risk teen in third trimester ([facility]) Short interval between pregnancies affecting , antepartum (HCC) 18 weeks gestation of (HCC) state, incidental documented in this encounter Care Teams Bartender Helper Relationship Specialty Start Date End Date Shana Easton MD [address] [address] PCP - General Family Medicine 01/09/20 documented as of this encounter
--- OUTSIDE RECORDS SUMMARY | 2024-03-15 18:24 | XMS_ITS | Encounter Summary ---
Author Organization [facility] Address [address] [place] [address] Care Team Providers Care Pipe Production Worker Name Role Phone Unavailable Primary Care Provider [...] Contact Info) Description 03/23/2024 Hospital Encounter [facility] [address] [place] [address] documented as of this encounter Visit Diagnoses Not on filedocumented in this encounter
--- OUTSIDE RECORDS SUMMARY | 2024-03-15 18:24 | XMS_ITS | Encounter Summary ---
Author Organization [facility] Address [address] [place] [address] Care Team Providers Care Real Estate Professional Name Role Phone Shana Easton MD Primary Care Provider [phone] Reason for Referral * (Routine) - Closed [...] SONOGRAM - COMPLETE Bolivar Green MD [address] [facility] [place] [address] Referral ID Status Reason Start Date Expiration Date Visits Re quested Visits Authorized [id number] Closed 10/08/2022 10/08/2023 1 1 * (Routine) [...] SONOGRAM - COMPLETE Bolivar Green MD [address] [place] [address] Referral ID Status Reason Start Date Expiration Date Visits Re quested Visits Authorized [id number] Closed 10/08/2022 10/08/2023 1 1 Reason for Visit * Reason Comments Ultrasound Encounter Details Date Type Department Care Team (Latest Contact Info) Description 10/12/2022 9:35 AM CDT - 10/12/2022 11:59 PM CDT Hospital Encounter [facility] Maternal & Care [address] [place] [address] Tomasa Vazquez MD [address] [address] Discharge Disposition: Home or [...] Description 03/23/2024 Hospital Encounter [facility] [address] [place] [address] documented as of this encounter [...] CDT Narrative 10/12/2022 4:36 PM CDT ? [facility] ?Maternal and Care Center ?PHONE: ??FAX: Pat. Name: ?DIOGENES MONET Pat. No: ?[id number] Study Date: ?? 10/12/2022 ??9:48am , Age: ? 2000, 22 Pregnancies: ?? 5, Para 1122 Height: ? 63 in Weight: ? 107 lb LMP: ?05/19/2022 GA by LMP: ?20w6d GA by Base: ?? 20w6d ?? ANGIE: 02/23/2023 GA Selected: ??20w6d (From [facility]) ANGIE: ?02/23/2023 Referring MD: Tal Green MD Manager Activities: ??Belkys Wood, MERRY, RDCS CPT4: ? 81555,47925 BMI: ?18.95 Hist/Ind: ? G1: SAB @ [...] Signature> ??10/12/2022 04:36pm R Lamont Green MD [facility] ORDERABLES documented in this encounter Visit [...] (HCC) documented in this encounter Care Teams Real Estate Professional Relationship Specialty Start Date End Date Shana Easton MD [address] [phone] PCP - General Family Medicine 01/09/20 documented as of this encounter
--- OUTSIDE RECORDS SUMMARY | 2024-03-15 18:24 | XMS_ITS | Encounter Summary ---
Author Organization [facility] Health Address [address] [place] [address] Care Team Providers Care Magnetic Tape Typewriter Operator Name Role Phone Shana Easton MD Primary Care Provider [phone] Encounter Details Date Type Department Care Team [...] Encounter [facility] [address] [place] [address] documented as of this encounter Visit Diagnoses Not on filedocumented in this encounter Care Teams Magnetic Tape Typewriter Operator Relationship Specialty Start Date End Date Shana Easton MD [address] [place] [address] PCP - General Family Medicine 01/09/20 documented as of this encounter
--- OUTSIDE RECORDS SUMMARY | 2024-03-15 18:24 | XMS_ITS | Encounter Summary ---
Author Organization [facility] Health Address [address] [facility] [place] [address] Care Team Providers Care Manager Farm Name Role Phone Shana Easton MD Primary Care Provider [phone] Encounter Details Date Type Department Care Team [...] COVID-19? No / Unsure 02/24/2020 1:19 PM [facility] RESIDENT documented as of this encounter Plan of Treatment Upcoming Encounters Date Type Department Care Team (Late st Contact Info) Description 03/23/2024 Hospital Encounter [facility] [address] [place] [address] documented as of this encounter Visit Diagnoses Not on filedocumented in this encounter Care Teams Manager Farm Relationship Specialty Start Date End Date Shana Easton MD [address] [place] [address] PCP - General Family Medicine 01/09/20 documented as of this encounter
--- OUTSIDE RECORDS SUMMARY | 2024-03-15 18:24 | XMS_ITS | Encounter Summary ---
Author Organization [facility] Address [address] [place] [address] Care Team Providers Care Supervisor Rice Milling Name Role Phone Unavailable Primary Care Provider Unavailabl e Reason for Visit * Evaluate & Treat (Routine) - Closed Specialty Diagnoses / Procedures Referred By Dora t Referred To Contact Diagnoses Maternal care for known or suspected placental insufficiency, unspecified trimester, not applicable or unspecified (HCC) Supervision of other high risk pregnancies, unspecified trimester ([facility]) Procedures ME FULL ROUT OBSTE CARE,VAGINAL Jennifer Hylton MD [address] [facility] [address] [place] [address] [facility] Maternal Fet Shil [address] [place] [address] Referral ID Status Reason Start Date Expiration Date Visits Re quested Visits Authorized [id number] Closed 2017 03/31/2018 20 20 Encounter Details Date Type Department Care Team (Latest Contact Info) Description 10/07/2017 8:05 AM CDT - 10/07/2017 9:27 AM CDT Hospital Encounter [facility] Maternal & Care [address] [place] [address] Yves Pena MD [address] [facility] [place] [address] Discharge Disposition: Home or Self Care Social [...] Info) Description 03/23/2024 Hospital Encounter [facility] [address] [place] [address] documented as of this encounter Procedures Procedure [...] 10/07/2017 9:51 AM CDT ? - [facility] [place] [facility] ? Maternal & Care Center ?PHONE: ??FAX: ? Pat. Name: ?DIOGENES CARTER. No: ?[id number] Study Date: ?? 10/07/2017 ??9:23am , Age: ? 2000, 17 Pregnancies: ?? 3, Para 1, Ab 1 Height: ? 63 in Weight: ? 98 lb LMP: ?Unknown GA by US: ? 32w4d ?? ANGIE: 11/28/2017 GA Selected: ??35w4d (Outside Scan) ANGIE: ?11/07/2017 Referring MD: Jennifer Villatoro MD Commissary Helper: ??Izabela Velez RDMS CPT4: ? [id number] BMI: ?17.36 Hist/Ind: ? Teen ?IUGR ?Short interval ?PTL MEASUREMENTS & AGE ? GROWTH EVALUATION Measurement ??GA ? Range ? Srce %for GA Ratios ----- ---- ------- BPD ??8.0 cm 32w1d (56a0s-62d3r) Hadl BPD <01 FL/BPD 0.80 (0.71 - 0.87) HC ??30.0 cm 33w2d (58x7g-52c8n) Hadl HC ??<01 FL/AC ??0.22 (0.20 - 0.24) AC ??29.4 cm 33w3d (46t2e-17n3m) Hadl AC ??7% HC/AC ??1.02 (0.93 - 1.12) FL ?? 6.4 cm 32w6d (06i9f-38y8q) Hadl FL ??2% CI ? 0.74 (0.70 - 0.86) HL ?? 5.7 cm 33w2d (20e6f-10d5n) Zackery HL ??12% GA for sonogram 32w4d (30l2t-19i4s) ?? Weight Estimate: based on (BPD,HC,AC,FL) Hadlock [...]
--- OUTSIDE RECORDS SUMMARY | 2024-03-15 18:24 | XMS_ITS | Encounter Summary ---
Author Organization [facility] Health Address [address] [place] [address] Care Team Providers Care Insurance Account Specialist Name Role Phone Unavailable Primary Care [...] st Contact Info) Description 03/23/2024 Hospital Encounter [facility] [address] [place] [address] documented as of this encounter Visit Diagnoses Not on filedocumented in this encounter
--- OUTSIDE RECORDS SUMMARY | 2024-03-15 18:24 | XMS_ITS | Encounter Summary ---
Author Organization [facility] Address [address] [place] [address] Care Team Providers Care Cutter And Edge Trimmer Name Role Phone Shana Easton MD Primary Care Provider [phone] Reason for Referral * (Routine) - Closed Specialty Diagnoses / Procedures Referred By Contac t Referred To Contact Diagnoses High risk teen in third trimester (HCC) Poor growth affecting management of mother in third trimester, single or unspecified fetus (HCC) Short interval between pregnancies affecting , antepartum (HCC) Encounter for ultrasound (HCC) Procedures SONOGRAM - COMPLETE Bolivar Green MD [address] [place] [address] Referral ID Status Reason Start Date Expiration Date Visits Re quested Visits Authorized [id number] Closed 10/23/2022 10/23/2023 1 1 * (Routine) - Closed Specialty Diagnoses / Procedures Referred By Contac t Referred To Contact Diagnoses High risk teen in third trimester (HCC) Poor growth affecting management of mother in third trimester, single or unspecified fetus (HCC) Short interval between pregnancies affecting , antepartum (HCC) Encounter for ultrasound (HCC) Procedures SONOGRAM - COMPLETE Bolivar Geren MD [address] [facility] [place] [address] Referral ID Status Reason Start Date Expiration Date Visits Re quested Visits Authorized [id number] Closed 10/23/2022 10/23/2023 1 1 Encounter Details Date Type Department Care Team (Latest Contact Info) Description 10/26/2022 9:45 AM CDT - 10/26/2022 11:59 PM CDT Hospital Encounter [facility] Maternal & Care [address] [place] [id number] Jil Lang MD [address] [address] Jin Ho MD [address] [address] Discharge Disposition: Home or Self [...] st Contact Info) Description 03/23/2024 Hospital Encounter [facility] [address] [place] [address] documented as of this encounter Procedures Procedure [...] CDT Narrative 10/26/2022 11:03 AM CDT ? [facility] ?Maternal and Care Center ?PHONE: ??FAX: Pat. Name: ?DIOGENES MONET Pat. No: ?[id number] Study Date: ?? 10/26/2022 ??9:56am , Age: ? 2000, 22 Pregnancies: ?? 5, Para 1122 Height: ? 63 in Weight: ? 107 lb LMP: ?05/19/2022 GA by LMP: ?22w6d GA by Base: ?? 22w6d ?? ANGIE: 02/23/2023 GA by US: ? 22w0d ?? ANGIE: 03/01/2023 GA Selected: ??22w6d (LMP) ANGIE: ?02/23/2023 Referring MD: Tal Green MD Automation Mechanic: ??Nadiya Evans RDMS CPT4: ? 54454 BMI: ?18.95 Hist/Ind: ? G1: SAB @ [...] ----- ---- ------- BPD ??5.3 cm 22w1d (49x0x-05y5n) Hadl BPD 18% FL/BPD 0.72 HC ??19.6 cm 21w6d (64b8d-39q0l) Hadl HC ??5% FL/AC ??0.21 (0.20 - 0.24) AC ??18.1 cm 23w0d (05j5n-42u3u) Hadl AC ??45% HC/AC ??1.08 (1.04 - 1.23) FL ?? 3.8 cm 22w2d (77g9k-28z2z) Hadl FL ??18% CI ? 0.76 (0.70 - 0.86) HL ?? 3.6 cm 22w4d (25q5b-16a7i) Zackery HL ??44% GA for sonogram 22w0d (31m4r-88r7l) ?? Weight Estimate: based on (BPD,HC,AC,FL) Hadlock [...] Signature> ??10/26/2022 11:03am R Lamont Green MD [facility] ORDERABLES documented in this encounter Visit Diagnoses Diagnosis High risk teen in third trimester (HCC)- Primary Poor growth affecting management of mother in third trimester, single or unspecified fetus (HCC) Short interval between pregnancies affecting , antepartum (HCC) Encounter for ultrasound (HCC) Encounter for routine screening for malformation using ultrasonics documented in this encounter Care Teams Cutter And Edge Trimmer Relationship Specialty Start Date End Date Shana Easton MD [address] [place] [address] PCP - General Family Medicine 01/09/20 documented as of this encounter
--- OUTSIDE RECORDS SUMMARY | 2024-03-15 18:24 | XMS_ITS | Encounter Summary ---
Author Organization [facility] Address [address] [address] Care Team Providers Care Road Patcher Name Role Phone Unavailable Primary Care Provider Unavailabl e Reason for Visit * Reason Comments Mass 2 right breast ellen s Encounter Details Date Type Department Care Team (Latest Contact Info) Description 07/22/2012 11:10 AM CDT - 07/22/2012 11:59 PM CDT Hospital Encounter [facility] Pediatrics - Surgery [address] [place] [address] Yocasta Marsh MD [address] [place] [address] [place] [address] Discharge Disposition: Home or Self Care Social [...] st Contact Info) Description 03/23/2024 Hospital Encounter [facility] [address] [place] [address] documented as of this encounter Visit Diagnoses Not on filedocumented in this encounter
--- OUTSIDE RECORDS SUMMARY | 2024-03-15 18:24 | XMS_ITS | Encounter Summary ---
Author Organization [facility] Health Address [address] [facility] [place] [address] Care Team Providers Care Non Destructive Testing Scientist Name Role Phone Shana Easton MD Primary Care Provider [phone] Encounter Details Date Type Department Care Team [...] Info) Description 03/23/2024 Hospital Encounter [facility] [address] [place] [address] documented as of this encounter Visit Diagnoses Not on filedocumented in this encounter Care Teams Non Destructive Testing Scientist Relationship Specialty Start Date End Date Shana Easton MD [address] [place] [address] PCP - General Family Medicine 01/09/20 documented as of this encounter
--- OUTSIDE RECORDS SUMMARY | 2024-03-15 18:24 | XMS_ITS | Encounter Summary ---
Author Organization [facility] Address [address] [place] [address] Care Team Providers Care Financial Foundations Representative Name Role Phone Unavailable Primary Care Provider Unavailabl e Reason for Visit * Evaluate & Treat (Routine) - Closed Specialty Diagnoses / Procedures Referred By Dora t Referred To Contact Diagnoses Maternal care for known or suspected placental insufficiency, unspecified trimester, not applicable or unspecified (HCC) Supervision of other high risk pregnancies, unspecified trimester ([facility]) Procedures [place] FULL ROUT OBSTE CARE,VAGINAL Jennifer Hylton MD [address] [facility] [address] [place] [address] [facility] Maternal Fet Shil [address] [place] [address] Referral ID Status Reason Start Date Expiration Date Visits Re quested Visits Authorized [id number] Closed 2017 03/31/2018 20 20 Encounter Details Date Type Department Care Team (Latest Contact Info) Description 10/07/2017 9:28 AM CDT - 10/07/2017 11:59 PM CDT Hospital Encounter [facility] Maternal & Care [address] [place] [address] Yves Pena MD [address] [place] [address] Discharge Disposition: Home or Self Care Social [...] st Contact Info) Description 03/23/[address] [facility] [address] [place] [address] documented as of this encounter Visit Diagnoses Diagnosis Poor growth affecting management of mother in third trimester, single or unspecified fetus (HCC) Short interval between pregnancies affecting in third trimester, antepartum (HCC) 35 weeks gestation of (HCC) state, incidental documented in this encounter
--- OUTSIDE RECORDS SUMMARY | 2024-03-15 18:24 | XMS_ITS | Encounter Summary ---
Author Organization [facility] Health Address [address] [facility] [place] [address] Care Team Providers Care Sawdust Machine Operator Name Role Phone Shana Easton MD Primary Care Provider [phone] Encounter Details Date Type Department Care Team [...] Contact Info) Description 03/23/2024 Hospital Encounter [facility] [address] [place] [address] documented as of this encounter Visit Diagnoses Not on filedocumented in this encounter Care Teams Sawdust Machine Operator Relationship Specialty Start Date End Date Shana Easton MD [address] [place] [address] PCP - General Family Medicine 01/09/20 documented as of this encounter
--- OUTSIDE RECORDS SUMMARY | 2024-03-15 18:24 | XMS_ITS | Encounter Summary ---
Author Organization [facility] Address [address] [place] [address] Care Team Providers Care Dye Range Feeder Name Role Phone Shana Easton MD Primary Care Provider [phone] Reason for Visit * Reason Onset Date Comments Returned Call 11/05/2022 Calling patient back regarding question. Encounter Details Date Type Department Care Team (Late st Contact Info) Description 11/05/2022 Telephone [facility] Maternal & Care [address] [place] [address] Kathe Schafer RN Returned Call [...] Telephone Encounter - Kathe Schafer RN - 11/05/2022 10:05 AM CDT [...] Per patient [facility] told patient should call [facility] for advice as that is why she comes to [facility]. documented in this encounter Plan of Treatment Upcoming Encounters Date Type Department Care Team (Late st Contact Info) Description 03/23/2024 Hospital Encounter [facility] [address] [place] [address] documented as of this encounter Visit Diagnoses Not on filedocumented in this encounter Care Teams Dye Range Feeder Relationship Specialty Start Date End Date Shana Easton MD [address] [phone] PCP - General Family Medicine 01/09/20 documented as of this encounter
--- OUTSIDE RECORDS SUMMARY | 2024-03-15 18:24 | XMS_ITS | Encounter Summary ---
Author Organization [facility] Health Address [address] [place] [address] Care Team Providers Care Hand Tacker Name Role Phone Shana Easton MD Primary Care Provider [phone] Encounter Details Date Type Department Care Team (Latest Contact Info) Description 01/29/2020 Travel Social History Tobacco Use Types Packs/Day [...] have Coronavirus / COVID-19? No / Unsure 01/29/2020 3:12 PM ALTERATION INSPECTOR documented as of this encounter Plan of Treatment Upcoming Encounters Date Type Department Care Team (Late st Contact Info) Description 03/23/2024 Hospital Encounter [facility] [address] [place] [address] documented as of this encounter Visit Diagnoses Not on filedocumented in this encounter Care Teams Hand Tacker Relationship Specialty Start Date End Date Shana Easton MD [address] [place] [address] PCP - General Family Medicine 01/09/20 documented as of this encounter
--- OUTSIDE RECORDS SUMMARY | 2024-03-15 18:29 | XMS_ITS | Encounter Summary ---
Author Organization [facility] Address [address] [place] [address]. [place], [place] [address] [place] [address] Care Team Providers Care Quality Assurance Engineer Name Role Phone Miguel Mancuso MD Primary Care Provider [phone] Reason for Referral * Imaging (Emergency) - New Request Specialty Diagnoses / Procedures Referred By Contac t Referred To Contact RADIOLOGY Procedures CTA CHEST PE PROTOCOL Duke Schmitz MD [address] [place] [address] Phone: tel: fax: Referral ID Status Reason Start Date Expiration Date V isits Requested Visits Authorized [id number] New Request 12/09/2023 12/08/2024 1 1 * Imaging (Emergency) - New Request Specialty Diagnoses / Procedures Referred By Contac t Referred To Contact RADIOLOGY Procedures CT HEAD WO CON Cassandra Ortiz PA [address] [place] [address] Phone: tel: fax: Referral ID Status Reason Start Date Expiration Date V isits Requested Visits Authorized [id number] New Request 12/09/2023 12/08/2024 1 1 Reason for Visit * Reason Comments High Blood Pressure Encounter Details Date Type Department Care Team (Late st Contact Info) Description 12/09/2023 7:57 PM CDT - 12/10/2023 1:10 AM CDT Emergency [facility] Emergency Room [facility] [address] Duke Schmitz MD [address] [place] [id number] High Blood Pressure Discharge Disposition: Home or Self Care (Routine Discharge) Social History Tobacco Use Types Packs/Day Years Used Date Smoking Tobacco: Never Smokeless Tobacco: Never Alcohol Use Standard Drinks/Week Comments Never 0 (1 standard drink = 0.6 oz pur e alcohol) [facility] Utilities Answer Date Recorded In the [...] How often do you attend chur or protestant services? Patient declined 02/13/2023 Do you belong to any clubs o r organizations such as uatsdin groups, unions, fraternal or athletic groups, or [...] Recorded Patient Health Questionnaire-2 Score 0 08/13/2022 [facility] Occupat ional Health - Occupational Stress [...] place to sleep or slept in a long-term (including now)? No 02/13/2023 Comments No Sex [...] Assessment Author Status No 02/13/2023 6:35 AM Aat Lau R N Active * Are you [...] Author Status No 02/13/2023 6:35 AM Ata aLu R N Active documented as of this encounter Mental Status * Because of a physical, mental, or emotional condition, do you have serious difficulty concentrating, remembering, or making decisions? Answer Entry Date Author Status No 02/13/2023 6:35 AM LEAD VULCANIZING OPERATOR Ata Avendano N, [place] N Active documented in this encounter Discharge Instructions * Attachments The following attachments cannot be sent through Care Everywhere. * How to Adapt to Physical Changes During (Turkish) * Preeclampsia Discharge Instructions (Turkish) documented in this encounter Medications at Time [...] Baker MD - 12/09/2023 10:45 PM CDT [facility] Hospitalist Gynecologic Consult Reason for Consult: 30 [...] states that she had been seen at [facility] medical group at [facility], however shewas in the process of switching obs to [facility]. She states that she was seen [facility] Saturday where she was diagnosed with pre eclampsia (by blood pressures 140s/90s and elevated urine pc). She was told at [facility] that she could not deliver there because of her PEC, so she arranged to transfer care again to [facility]. She was seen at [facility] today where she had a PC of 0.09, and was normotensive. She states that she has a BP cuff at home and has just started checking them regularly. She has started collecting a 24 hour urine protein, and is supposed to take it in tomorrow. She has an appointment at [facility] on Saturday. She currently denies VB, LOF or contractions. She notes good movement. She denies CHEEMA, vision changes, RUQ pain or epigastric pain. She states that the numbness and tingling have resolved, as have the palpitations. She denies CP or SOA currently. Dr. Schmitz requested my consultation services due to /PEC evaluation. Past Medical History: Past Medical History: Diagnosis Date Asthma ([facility]) Bilateral ovarian cysts Depression History of suicidal ideation Major depression in full remission ([facility]) 10/14/2014 Mass of right breast 07/10/2012 Menorrhagia 10/14/2014 Poor growth affecting management of mother in third trimester ([facility]) 10/11/2017 PTSD (post-traumatic stress disorder) Short interval between pregnancies affecting , antepartum ([facility]) 10/11/2017 Vitamin D deficiency Past Surgical History: [...] decels, reactive and reassuring Result Date: 12/09/[address] Test Date: 2023-12-09 Pat Name: DIOGENES MONET Department: 41 Room: [facility] Gender: Female Recruitment Officer: : 2000 Requested By: CASSANDRA ORTIZ Order Number: [id number] Reading MD: Measurements Intervals Sellers Rate: 120 P: 71 TN: 118 QRS: 82 QRSD: 77 T: -31 QT: 339 QTc: 479 Interpretive Statements SINUS TACHYCARDIA WITH SHORT TN INTERVAL ST DEVIATION AND MODERATE T-WAVE ABNORMALITY, CONSIDER ANTEROLATERAL ISCHEMIA [-0.1+ mV T WAVE IN V3-V6] ST DEVIATION AND MODERATE T-WAVE ABNORMALITY, CONSIDER INFERIOR ISCHEMIA [-0.1+ mV T WAVE IN II/aVF] Compared to ECG 07/22/2018 10:17:34 Short TN interval now present Possible ischemia now present Sinus rhythm no longer present T-wave abnormality still present CT HEAD WO CON Result Date: 12/09/[address] [address] EXAMINATION: CT of the head CLINICAL HISTORY: [...] likely result in need for transfer to [facility]. Discussed blood pressure precautions and PEC [...] record, Referring and communication with other health healthcare architect, and Independently interpreting results andcommunicating results to the patient/family/caregiver. Jennifer Baker MD [facility] Physician global vp creative + content marketing Can be reached through [employer] as ob hospitalist. documented in this encounter ED Notes * Duke Schmitz MD - 12/09/2023 9:50 PM CDT Emergency Department Note Chief Complaint Chief Complaint Patient presents with High Blood Pressure History of Present Illness Patient presents to the emergency department with recent diagnosis of preeclampsia. She has been moving between OB doctors because of insurance reasons. Currently being transferred to [facility] for new diagnosis of preeclampsia although [...] times daily as needed (Perineal discomfort). 02/14/23 Ibteh Almonte CNM docusate sodium (COLACE) 100 MG [...] HISTORY: Past Medical History: Diagnosis Date Asthma ([facility]) Bilateral ovarian cysts Depression History of suicidal ideation Major depression in full remission ([facility]) 10/14/2014 Mass of right breast 07/10/2012 Menorrhagia 10/14/2014 Poor growth affecting management of mother in third trimester ([facility]) 10/11/2017 PTSD (post-traumatic stress disorder) Short interval between pregnancies affecting , antepartum ([facility]) 10/11/2017 Vitamin D deficiency PAST SURGICAL [...] except for what is documented in the [facility] Physical Exam Filed Vitals: 12/09/231952 BP: (!) [...] encounter of 12/09/23 ECG 12 lead Narrative [facility] [place] Test Date: 2023-12-09 Pat Name: DIOGENES MONET Department: 41 Room: [facility] Gender: Female Recruitment Officer: : 2000 Requested By: CASSANDRA ORTIZ Order Number: [id number] Reading MD: Measurements Intervals Sellers Rate: 120 P: 71 TN: 118 QRS: 82 QRSD: 77 T: -31 QT: 339 QTc: 479 Interpretive Statements SINUS TACHYCARDIA WITH SHORT TN INTERVAL ST DEVIATION AND MODERATE T-WAVE ABNORMALITY, CONSIDER ANTEROLATERAL ISCHEMIA [-0.1+ mV T WAVE IN V3-V6] ST DEVIATION AND MODERATE T-WAVE ABNORMALITY, CONSIDER INFERIOR ISCHEMIA [-0.1+ mV T WAVE IN II/aVF] Compared to ECG 07/22/2018 10:17:34 Short TN interval now present Possible ischemia now present [...] CHEST PE PROTOCOL Final Result by User, [email or web address] (12/10 7) [address] [address] EXAMINATION: CTA CHEST PE PROTOCOL, 12/09/2023 11:45 [...] HEAD WO CON Final Result by User, [email or web address] (12/08 2012) [address] [place], [place] [address] EXAMINATION: CT of the head CLINICAL HISTORY: [...] the preeclamptic range. She was evaluated by [facility] EQUIPMENT TESTER. Overall recommendation to follow-up with her OB as previously planned [MS] 0038 Bedside ultrasound not completed in the emergency department because it is documented that jay previously had 1 with an IUP at 30 weeks [MS] 0039 CT head ordered and negative. [MS] 0040 EKG shows sinus tachycardia with short TN intervals. [MS] ED Course User Index [MS] Duke Schmitz MD Rhythm strip ordered and interpreted: NSR, Rate 110, No ectopy Medications iopamidol (ISOVUE-370) 76 % injection 80 mL (80 mLs Intravenous Given 12/10/23 0007) Clinical Impression 30 weeks gestation of (HHS/HCC) (Primary) Lightheadedness Current Discharge Medication List Disposition: Discharge Follow-Up: Miguel Mancuso MD [address] [facility] [address] Schedule an appointment as soon as possible [...] MEME Barcenas - 12/09/2023 7:53 PM CDT [place] EMERGENCY DEPARTMENT ENCOUNTER Medical Screening Examination [...] 11:45 PM Narrative 12/09/2023 11:49 PM CDT [address] [address] EXAMINATION: CTA CHEST PE PROTOCOL, 12/09/2023 11:45 [...] Procedure Note Mumtaz Cook MD - 12/10/2023 [facility] [address] [place], [place] [address] EXAMINATION: CTA CHEST PE PROTOCOL, 12/09/2023 11:45 [...] - 99 MG/DL 12/09/2023 10:39 PM CDT [facility] BUN 7 7 - 18 MG/DL 12/09/2023 10:39 PM CDT [facility] CREATININE S/P/B 0.48(L) 0.55 - 1.02 MG/DL 12/09/2023 10:39 PM CDT [facility] SODIUM S/P/B 140 136 - 145 MMOL/L 12/09/2023 10:39 PM CDT [facility] POTASSIUM S/P/B 3.6 3.5 - 5.1 MMOL/L 12/09/2023 10:39 PM CDT [facility] CHLORIDE S/P/B 108 97 - 115 MMOL/L 12/09/2023 10:39 PM CDT [facility] CO2 24.0 21 - 32 MMOL/L 12/09/2023 10:39 PM CDT [facility] CALCIUM S/P/B 8.7 8.5 - 10.1 MG/DL 12/09/2023 10:39 PM CDT [facility] BILIRUBIN TOTAL S/P/B 0.3 0.2 - 1.2 MG/DL 12/09/2023 10:39 PM T [facility] Comment: THIS ASSAY IS NOT RECOMMENDED FOR PATIENTS UNDERGOING TREATMENT WITH ELTROMBOPAG DUE TO THE POTENTIAL FOR FALSELY ELEVATED RESULTS. TOTAL PROTEIN S/P/B 6.5 6.4 - 8.2 G/DL 12/09/2023 10:39 PM CDT [facility] ALBUMIN S/P/B 2.8(L) 3.4 - 5.0 G/DL 12/09/2023 10:39 PM T [facility] AST 12(L) 15 - 37 U/L 12/09/2023 10:39 PM T [facility] ALT 14 14 - 55 U/L 12/09/2023 10:39 PM T [facility] ALKALINE PHOSPHATASE S/P/B 80 50 - 136 U/L 12/09/2023 10:39 PM T [facility] ANION GAP 8.0 2 - 10 MMOL/L 12/09/2023 10:39 PM T [facility] BUN CREATININE RATIO 14.6 6 - 26 12/09/2023 10:39 PM T [facility] A/G RATIO 0.8(L) 1.0 - 2.0 RATIO 12/09/2023 10:39 PM [facility] GFR ESTIMATE >90 >90 ML/MIN/1.7 3 M2 12/09/2023 10:39 PM T [facility] Comment: NOTE: eGFR is [...] us Jennifer Baker MD LABORATORY Final Result [facility] [address] [place] [address], * (ABNORMAL) BASIC METABOLIC PANEL (12/09/2023 8:43 PM CDT) [facility] GLUCOSE 102(H) 70 - 99 MG/DL 12/09/2023 9:31 PM CDT [facility] BUN 7 7 - 18 MG/DL 12/09/2023 9:31 PM CDT [facility] CREATININE S/P/B 0.55 0.55 - 1.02 MG/DL 12/09/2023 9:31 PM CDT [facility] SODIUM S/P/B 139 136 - 145 MMOL/L 12/09/2023 9:31 PM CDT [facility] POTASSIUM S/P/B 3.5 3.5 - 5.1 MMOL/L 12/09/2023 9:31 PM CDT [facility] CHLORIDE S/P/B 108 97 - 115 MMOL/L 12/09/2023 9:31 PM CDT [facility] CO2 22.2 21 - 32 MMOL/L 12/09/2023 9:31 PM CDT [facility] CALCIUM S/P/B 9.1 8.5 - 10.1 MG/DL 12/09/2023 9:31 PM CDT [facility] ANION GAP 8.8 2 - 10 MMOL/L 12/09/2023 9:31 PM CDT [facility] BUN CREATININE RATIO 12.7 6 - 26 12/09/2023 9:31 PM CDT [facility] GFR ESTIMATE >90 >90 ML/MIN/1.7 3 M2 12/09/2023 9:31 PM CDT [facility] Comment: NOTE: eGFR is [...] CDT Duke Schmitz MD LABORATORY Final Result [facility] [address] [place] [address], * (ABNORMAL) CBC W/DIFF AUTOMATED (12/09/2023 8:43 PM CDT) WBC 9.82 4.5 - 11.0 x10'3/uL 12/09/2023 9:16 PM CDT [facility] RBC 4.25 4.20 - 5.40 x10'6/uL 12/09/2023 9:16 PM CDT [facility] HGB 11.2(L) 12.0 - 16.0 G/DL 12/09/2023 9:16 PM CDT [facility] HCT 35.2(L) 38.0 - 48.0 % 12/09/2023 9:16 PM CDT [facility] MCV 82.8 81.0 - 99.0 FL 12/09/2023 9:16 PM CDT [facility] MCH 26.4(L) 27.0 - 31.0 PG 12/09/2023 9:16 PM CDT [facility] MCHC 31.8(L) 32.0 - 36.0 G/DL 12/09/2023 9:16 PM CDT [facility] RDW 13.9 11.5 - 14.5 % 12/09/2023 9:16 PM CDT [facility] PLT 221 130 - 400 x10'3/uL 12/09/2023 9:16 PM CDT [facility] MPV 11.5 9.3 - 12.2 FL 12/09/2023 9:16 PM CDT [facility] DIFFERENTIAL TYPE AUTOMATED DIFFERENTIAL 12/09/2023 9:16 PM CDT [facility] NEUTROPHILS % 72.3 % 12/09/2023 9:16 PM CDT [facility] LYMPHOCYTES % 17.7 % 12/09/2023 9:16 PM CDT [facility] MONOCYTES % 8.0 % 12/09/2023 9:16 PM CDT [facility] EOSINOPHILS 0.7 % 12/09/2023 9:16 PM CDT [facility] BASOPHILS 0.3 % 12/09/2023 9:16 PM CDT [facility] IMMATURE GRANS % 1.0 % 12/09/19 9:16 PM CDT [facility] ABS. NEUTROPHILS 7.09 1.80 - 7.70 x10'3/uL 12/09/2023 9:16 PM CDT [facility] ABS. LYMPHOCYTES 1.74 1.00 - 4.80 x10'3/uL 12/09/2023 9:16 PM CDT [facility] ABS. MONOCYTES 0.79 0.24 - 0.86 x10'3/uL 12/09/2023 9:16 PM CDT [facility] ABS. EOSINOPHILS 0.07 0.04 - 0.36 x10'3/uL 12/09/2023 9:16 PM CDT [facility] ABS. BASOPHILS 0.03 0.01 - 0.08 x10'3/uL 12/09/2023 9:16 PM CDT [facility] ABS. IMMATURE GRANULOCYTES 0.10 0.00 - 0.49 x10'3/uL 12/09/2023 9:16 PM CDT [facility] 12/09/2023 8:43 PM CDT Duke Schmitz MD LABORATORY Final Result Performing Organization Address City/[facility]/ZIP Co de Phone Number [facility] [address] [place] [address], [place] [phone] * (ABNORMAL) D-DIMER, QUANTITATIVE (12/09/2023 8:43 PM CDT) D-DIMER 671(HH) 0 - 500 ng{FEU}/mL 12/09/2023 9:43 PM CDT [facility] Comment: D-Dimer values less than or [...] called 12/09/2023 09:44 PM to EMERGENCY ROOM ([id number]/WILMA AMAYA) by [id number]. 12/09/2023 8:43 PM CDT Duke Schmitz MD LABORATORY Final Result Performing Organization Address City/[facility]/ZIP Co de Phone Number [facility] [address] [place] [address], [place] [phone] * ECG 12 lead (12/09/2023 8:26 PM CDT) 12/09/2023 8:26 PM CDT Narrative [facility] - 12/10/2023 12:45 PM CDT ?[facility] [place] ? [address] [place] ? Test Date: ?2023-12-09 Pat Name: ? DIOGENES MONET ?Department: ?? 41 ? Room: ? GUI Gender: ? Female ? Recruitment Officer: ?? : ?2000 ? Requested By: CASSANDRA ORTIZ Order Number: [id number] ? Reading MD: ?? Josue Vance ? Measurements Intervals ?Sellers ? Rate: ? 120 ?P: ?71 TN: ? 118 ?QRS: ?82 QRSD: ? 77 [...] Note Josue Vance MD - 12/10/[address] [facility] [facility] Test Date: 2023-12-09 Pat Name: DIOGENES MONET Department: 41 Room: GUI Gender: Female Recruitment Officer: : 2000 Requested By: CASSANDRA ORTIZ Order Number: [id number] Reading MD: Josue Vance Measurements Intervals Sellers Rate: 120 P: 71 TN: 118 QRS: 82 QRSD: 77 T: -31 [...] Duke Schmitz MD ECG ORDERABLES Final Result [facility] * CT HEAD WO CON [...] 8:06 PM Narrative 12/09/2023 8:12 PM CDT [address] [address] EXAMINATION: CT of the head CLINICAL HISTORY: [...] Procedure Note Nishant Valladares MD - 12/09/2023 [facility] [address] [place], [place] [address] EXAMINATION: CT of the head CLINICAL HISTORY: [...] Visit Diagnoses Diagnosis 30 weeks gestation of ([facility])- Primary state, incidental Lightheadedness Dizziness and giddiness [...] documented as of this encounter Care Teams Quality Assurance Engineer Relationship Specialty Start Date End Date Miguel Mancuso MD [address] [place] [address] PCP - General FAMILY PRACTICE 10/12/22 documented as of this encounter
--- OUTSIDE RECORDS SUMMARY | 2024-03-15 18:29 | XMS_ITS | Encounter Summary ---
Author Organization [facility] Address [address] [place] [address]. [place], [place] [address] [place] [address] Care Team Providers Care Culinary Internship Name Role Phone Miguel Mancuso MD Primary Care Provider [phone] Reason for Visit * Auth/Cert (Routine) Specialty Diagnoses / Procedures Referred By Contac t Referred To Contact Diagnoses (HHS/HCC) ([facility]) Procedures NONE Zachery Sullivan MD [address] [place] [address] Phone: tel: fax: Referral ID Status Reason Start Date Expiration Date Visits Re quested Visits Authorized [id number] 1 1 Encounter Details Date Type Department Care Team (Late st Contact Info) Description 02/13/2023 9:25 AM AUTO REPAIR SHOP MANAGER Anesthesia Event [facility] Labor [place] [address] Crystal Joya CRNA [address] [place] [address] Anesthesia Record Procedure Summary Procedure Name Responsible [...] No; Urologic Surgical intervention - Bladder, Prostate, SHIPPING SUPERVISOR procedures; 1; Hand hygiene performed, Site cleansed [...] Placement Location: Lumbar; MRI Compatible: MRI UNSAFE ([id number]); Removal Date: 02/13/23; Removal Time: 164902/13/23 1255 by Crystal Joya CRNA 02/13/23 1650 by Lluvia Morley RN documented in this encounter Social History Tobacco Use Types Packs/Day Years Used Date Smoking Tobacco: Never Smokeless Tobacco: Never Alcohol Use Standard Drinks/Week Comments Never 0 (1 standard drink = 0.6 oz pur e alcohol) [facility] [employer] Answer Date Recorded In the past 12 months has [employer], gas, oil, or water [employer] threatened to shut off services in your [...] How often do you attend chur or congregation services? Patient declined 02/13/2023 Do you belong to any clubs o r organizations such as baptist groups, unions, fraternal or athletic groups, or [...] Recorded Patient Health Questionnaire-2 Score 0 08/13/2022 [facility] Occupat ional Health - Occupational [...] slept in a assisted (including now)? No 02/13/2023 Comments No Sex [...] or making decisions? No 02/13/2023 6:35 AM AUTO REPAIR SHOP MANAGER Ata Avendano, RN Active * Because of a physical, [...] headache or paresthesia No notable events documented. REPAIR SHOP MANAGER * Anesthesia Procedure Notes - Crystal Joya CRNA - 02/13/2023 12:54 PM AUTO REPAIR SHOP MANAGER Associated Order(s): Labor Epidural Epidural: Procedure Start: [...] Needle and Catheter: MRI Compatible: MRI UNSAFE ([id number]) Needle type: Tuohy Needle gauge: 17 G Needle length: 3.5 in Needle insertion depth: 5 cm Catheter type: side hole Catheter size: 19 G Catheter at skin depth: 10 cm Test dose: negative and lidocaine 1.5% with epinephrine 1-to-200,000 Needle attempts: 1 Assessment Sensory level: T10 Additional Notes LOT: [id number] EXP: 2024-02-22 REPAIR SHOP MANAGER * Anesthesia Preprocedure Evaluation - Crystal Joya [...] affecting management of mother in third trimester ([facility]/HCC) No date: PTSD (post-traumatic stress disorder) 10/11/2017: [...] patient of whom consent was obtained. . REPAIR SHOP MANAGER documented in this encounter Plan of Treatment Not on file documented as of this encounter Procedures Procedure Name Priority Date/Time Associated Diagnosis Comments LABOR EPIDURAL Routine 02/13/2023 12:54 PM AUTO REPAIR SHOP MANAGER documented in this encounter Results * LABOR EPIDURAL (02/13/2023 12:54 PM AUTO REPAIR SHOP MANAGER) Crystal Willoughby CRNA - 02/13/2023 12:54 PM AUTO REPAIR SHOP MANAGER Crystal Joya CRNA ? 02/13/2023 12:55 PM [...] Needle and Catheter: MRI Compatible: MRI UNSAFE ([id number]) Needle type: Tuohy Needle gauge: 17 G Needle length: 3.5 in Needle insertion depth: 5 cm Catheter type: side hole Catheter size: 19 G Catheter at skin depth: 10 cm Test dose: negative and lidocaine 1.5% with epinephrine 1-to-200,000 Needle attempts: ??1 Assessment Sensory level: T10 Additional Notes LOT: [id number] EXP: 2024-02-22 Crystal Joya BASKET OPERATOR [place] ANESTHESIA Final Result documented in this encounter [...] Alert*, Pre-Delivery New Bag 02/13/2023 10:10 AM AUTO REPAIR SHOP MANAGER 10 mL/hr 10 mL/hr lidocaine (PF) (XYLOCAINE) 1 % injection Infiltration, PRN, Starting on Sat02/13/23 at 0929, Until Sat02/13/23 at 1458, Anesthesia Intra-Op Given 02/13/2023 9:40 AM AUTO REPAIR SHOP MANAGER 20 mg Given 02/13/2023 9:29 AM AUTO REPAIR SHOP MANAGER 30 mg lidocaine-EPINEPHrine 1.5 %-1:122024 injection Epidural, PRN, Starting on Sat02/13/23 at 0935, Until Sat02/13/23 at 1458, Anesthesia Intra-Op Given 02/13/2023 9:40 AM AUTO REPAIR SHOP MANAGER 2 mLs Given 02/13/2023 9:35 AM AUTO REPAIR SHOP MANAGER 3 mLs documented in this encounter Additional Health Concerns Assessment Noted Time PHQ-9 Depression Total Score: 16 022 10:37 AM CDT documented as of this encounter Care Teams Culinary Internship Relationship Specialty Start Date End Date Miguel Mancuso MD [address] [place] [id number] PCP - General FAMILY PRACTICE 10/12/22 documented as of this encounter
--- OUTSIDE RECORDS SUMMARY | 2024-03-15 18:29 | XMS_ITS | Clinical Summary ---
Author Organization [facility] Address [address] [place] [address]. [place], [place] [id number] [place] [address] Care Team Providers Care Entry Level Installation Technician Name Role Phone Miguel Mancuso MD Primary Care Provider [phone] Allergies Active Allergy Reactions Criticality Noted Date [...] hemorrhage of p lacenta in first trimester ([facility]) 08/21/2022 High risk due to h istory of labor ([facility]) 07/31/2022 History of premature delivery 07/31/2022 Confusion and disorientation 12/19/2021 Vitamin D deficiency 12/19/2021 Asthma ([facility]) 02/22/2012 Vision problems 02/22/2012 Overview (12/19/2021): Description: WEARS GLASSES. MYOPIA Resolved Problems Problem Noted Date Diagnosed Date Resolved Date ([facility]) 07/31/2022 02/15/20 23 Poor growth affecting management of mother in third trimester ([facility]) 10/11/201711/24 Short interval between pregn ancies affecting , antepartum ([facility]) 10/11/2017 12/20/19 22 Major depression in full [...] drink = 0.6 oz pur e alcohol) [facility] [employer] Answer Date Recorded In the past 12 months has e [employer], oil, or water [employer] threatened to shut off services in your [...] week 02/13/2023 How often do you attend [facility] or presybeterian services? Patient declined 02/13/2023 Do you belong to any clubs o r organizations such as sabianist groups, unions, fraternal or athletic groups, or [...] Recorded Patient Health Questionnaire-2 Score 0 08/13/2022 [facility] - Occupational Stress Questionnaire Answer [...] slept in a longterm (including now)? No 02/13/2023 Comments No Sex [...] Health Maintenance Results * HEPATITIS C AB ([facility]) (12/19/2021 2:27 PM CDT) HEPATITIS C AB NON-REACTI VE NON-REACTI VE 12/19/2021 7:56 PM CDT [facility] 12/19/2021 2:27 PM CDT us La Nena Ferro [facility] Final Resul t [facility] [address] [place] [address], [place] [phone] * PAP SMEAR WITH HPV (07/22/2021) 07/22/2021 [facility] Scanned SCANNING Final Resu lt * CHLAMYDIA GC BY PCR (10/18/2015 7:30 PM CDT) SPECIMEN SOURCE CERVIX 6 12:12 PM CDT [facility] CHLAMYDIA PCR NEGATIVE NEGATIVE 10/25/2015 12:12 PM CDT [facility] Comment: This test was performed using the APTIMA Combo 2 Chlamydia trachomatis & Neisseria gonorrhoeae RNA Amplified Probe Assay which detects the presence of C. trachomatis and N. gonorrhoeae rRNA in clinical specimens. This assay was validated by [facility] and cleared by the FDA for endocervical and male urethral swabs from symptomatic and asymptomatic patients. Performed at [facility], [address] [place] [address] SPECIMEN CERVIX 10/25/2015 12:12 PM CDT [facility] NEISSERIA GONORRHOEAE PCR NEGATIVE NEGATIVE 10/25/2015 12:12 PM CDT [facility] Comment: This test was performed using the APTIMA Combo 2 Chlamydia trachomatis & Neisseria gonorrhoeae RNA Amplified Probe Assay which detects the presence of C. trachomatis and N. gonorrhoeae rRNA in clinical specimens. This assay was validated by [facility] and cleared by the FDA for endocervical and male urethral swabs from symptomatic and asymptomatic patients. Performed at [facility], [address] [place] [address] 10/18/2015 7:30 PM CDT 10/18/2015 7:57 PM CDT us Generic Conversion [facility] - GENERAL ORDERABLES Final Result [facility] [address] [place] [id number] from Last 3 Months or Most Recently Relevant to Health Maintenance [place] [address] [place] [address] Advance Directives * Full Code (Latest Code Status on File) Date Activated Date Inactivated Comments 02/13/2023 6:10 AM 02/14/2023 5:19 PM Care Teams Entry Level Installation Technician Relationship Specialty Start Date End Date Miguel Mancuso MD [address] [place] [phone] PCP - General FAMILY PRACTICE 10/12/22
--- OUTSIDE RECORDS SUMMARY | 2024-03-15 18:29 | XMS_ITS | Encounter Summary ---
Author Organization [facility] Address [address] [place] [address]. [place], [place] [phone] [place] [address] Care Team Providers Care Transportation Department Supervisor Name Role Phone Miguel Mancuso MD Primary Care Provider [phone] Encounter Details Date Type Department Care Team (Latest Contact Info) Description 02/18/2023 Travel Social History Tobacco Use Types Packs/Day Years Used Date Smoking Tobacco: Never Smokeless Tobacco: Never Alcohol Use Standard Drinks/Week Comments Never 0 (1 standard drink = 0.6 oz pur e alcohol) [facility] Utilities Answer Date Recorded In the [...] often do you attend chur ch or restorationism services? Patient declined 02/13/2023 Do you belong to any clubs o r organizations such as gnosticism groups, unions, fraternal or athletic groups, or [...] Patient Health Questionnaire-2 Score 0 08/13/2022 [facility] - Occupational Stress Questionnaire Answer [...] place to sleep or slept in a custodial (including now)? No 02/13/2023 Comments No Sex [...] documented as of this encounter Care Teams Transportation Department Supervisor Relationship Specialty Start Date End Date Miguel Mancuso MD [address] [place] [phone] PCP - General FAMILY PRACTICE 10/12/22 documented as of this encounter
--- OUTSIDE RECORDS SUMMARY | 2024-03-15 18:29 | XMS_ITS | Encounter Summary ---
Author Organization [facility] Address [address] [place] [address]. [place], [place] [id number] [place] [address] Care Team Providers Care Orbitread Operator Name Role Phone La Nena Ferro [facility] Primary Care Provider Miguel Taylor MD Primary Care Provider [phone] Encounter Details Date Type Department Care Team (Late st Contact Info) Description 09/19/2022 MyChart Message [facility] [address] [place], [place] [address] [employer] [place] [facility] Provider Air Quality Message Social [...] documented as of this encounter Care Teams Orbitread Operator Relationship Specialty Start Date End Date La Nena Ferro FNP- PCP - General Nurse Practitioner Family 06/20/22 3 Miguel Mancuso MD [address] [place] [phone] PCP - General FAMILY PRACTICE 10/12/22 documented as of this encounter
--- OUTSIDE RECORDS SUMMARY | 2024-03-15 18:29 | XMS_ITS | Encounter Summary ---
Author Organization [facility] Address [address] [place] [address]. [place], [place] [id number] [place] [address] Care Team Providers Care Onsite Case Manager Name Role Phone Miguel Mancuso MD Primary Care Provider [phone] Encounter Details Date Type Department Care Team (Latest Contact Info) Description 12/09/2023 Travel Social History Tobacco Use Types Packs/Day Years Used Date Smoking Tobacco: Never Smokeless Tobacco: Never Alcohol Use Standard Drinks/Week Comments Never 0 (1 standard drink = 0.6 oz pur e alcohol) [facility] Utilities Answer Date Recorded In the past [...] often do you attend chur ch or jehovah's witness services? Patient declined 02/13/2023 [...] 0 08/13/2022 [facility] - Occupational Stress Questionnaire Answer [...] place to sleep or slept in a fci (including now)? No 02/13/2023 Comments No Sex [...] documented as of this encounter Care Teams Onsite Case Manager Relationship Specialty Start Date End Date Miguel Mancuso MD [address] [place] [phone] PCP - General FAMILY PRACTICE 10/12/22 documented as of this encounter
--- OUTSIDE RECORDS SUMMARY | 2024-03-15 18:29 | XMS_ITS | Encounter Summary ---
Author Organization [facility] Address [address] [place] [address]. [place], [place] [id number] [place] [address] Care Team Providers Care Location Worker Name Role Phone Miguel Mancuso MD Primary Care Provider [phone] Encounter Details Date Type Department Care Team [...] often do you attend chur ch or presybeterian services? Patient declined 02/13/2023 Do you belong to any clubs o r organizations such as jain groups, unions, fraternal or athletic groups, or [...] Recorded Patient Health Questionnaire-2 Score 0 08/13/2022 [facility] - Occupational [...] documented as of this encounter Care Teams Location Worker Relationship Specialty Start Date End Date Miguel Mancuso MD [address] [place] [phone] PCP - General FAMILY PRACTICE 10/12/22 documented as of this encounter
--- OUTSIDE RECORDS SUMMARY | 2024-03-15 18:29 | XMS_ITS | Encounter Summary ---
Author Organization [facility] Address [address] [place] [address]. [place], [place] [phone] [place] [address] Care Team Providers Care Senior Ui Designer Name Role Phone Miguel Mancuso MD Primary Care Provider [phone] Encounter Details Date Type Department Care Team (Late st Contact Info) Description 06/26/2023 [employer] Message [address] [phone] [facility] Provider Schedule Appointment - Annual Physical Social History Tobacco Use Types Packs/Day Years Used Date Smoking Tobacco: Never Smokeless Tobacco: Never Alcohol Use Standard Drinks/Week Comments Never 0 (1 standard drink = 0.6 oz pur e alcohol) [facility] Utilities Answer Date Recorded In the past [...] How often do you attend chur or zoroastrianism services? Patient declined 02/13/2023 Do you belong to any clubs o r organizations such as adventism groups, unions, fraternal or athletic groups, or [...] Recorded Patient Health Questionnaire-2 Score 0 08/13/2022 [facility] - Occupational Stress Questionnaire Answer Date [...] Date Author Status No 02/13/2023 6:35 AM SUPERVISOR TAN ROOM Ata Avendano R N Active documented in this encounter Plan of Treatment Not on file documented as of this encounter Visit Diagnoses Not on filedocumented in this encounter Additional Health Concerns Assessment Noted Time PHQ-9 Depression Total Score: 16 022 10:37 AM CDT documented as of this encounter Care Teams Senior Ui Designer Relationship Specialty Start Date End Date Miguel Mancuso MD [address] [place] [phone] PCP - General FAMILY PRACTICE 10/12/22 documented as of this encounter
--- OUTSIDE RECORDS SUMMARY | 2024-03-15 18:29 | XMS_ITS | Encounter Summary ---
Author Organization [facility] Address [address] [place] [address]. [place], [place] [id number] [place] [id number] Care Team Providers Care Hose Tester Name Role Phone Zack Mancuso MD Primary Care Provider [phone] Reason for Visit * Reason Comments Contractions * Auth/Cert (Routine) Specialty Diagnoses / Procedures Referred By Contac t Referred To Contact Diagnoses (HHS/HCC) (HHS/HCC) Procedures NONE Bert Oliver MD [address] [place] [address] Phone: tel: fax: Referral ID Status Reason Start Date Expiration Date Visits Re quested Visits Authorized [id number] 1 1 Encounter Details Date Type Department Care Team (Latest Contact Info) Description 02/13/2023 5:42 AM [facility] - 02/14/2023 3:10 PM [facility] Hospital Encounter [facility] [place], [place] [id number] Bert Oliver MD [address] [place], [place] [id number] Asia Dewey MD [address] [place] [address] (Contractions) Discharge Disposition: Home or Self Care (Routine Discharge) Social History Tobacco Use Types Packs/Day Years Used Date Smoking Tobacco: Never Smokeless Tobacco: Never Tobacco Cessation:Counseling Given: Not Answered Alcohol Use Standard Drinks/Week Comments Never 0 (1 standard drink = 0.6 oz pur e alcohol) [facility] Utilities Answer Date Recorded In the [...] How often do you attend chur or quaker services? Patient declined 02/13/2023 Do you belong to any clubs o r organizations such as cheondoism groups, unions, fraternal or athletic groups, or [...] Recorded Patient Health Questionnaire-2 Score 0 08/13/2022 [facility] - Occupational Stress Questionnaire Answer Date [...] slept in a penitentiary (including now)? No 02/13/2023 Comments No Sex and Gender Information Value Date Recorded Sex Assigned at Not on file Legal Sex Female 5:47 PM CDT Gender Identity Not on file Sexual Orientation Not on file documented as of this encounter Last Filed Vital Signs Vital Sign Reading Time Taken Comments Blood Pressure 103/78 02/14/2023 8:30 AM DIRECTOR OF ACCOUNTS RECEIVABLE Pulse 60 02/14/2023 8:30 AM DIRECTOR OF ACCOUNTS RECEIVABLE Temperature 36.6 ??C (97.8 ??F) 02/14/2023 8:30 AM CS T Respiratory Rate 18 02/14/2023 8:30 AM DIRECTOR OF ACCOUNTS RECEIVABLE Oxygen Saturation 99% 02/14/2023 8:30 AM DIRECTOR OF ACCOUNTS RECEIVABLE Inhaled Oxygen Concentration - - Weight 65.8 kg (145 lb) 02/13/2023 6:39 AM DIRECTOR OF ACCOUNTS RECEIVABLE Height 160 cm (5' 3 ) 02/13/2023 6:39 AM DIRECTOR OF ACCOUNTS RECEIVABLE Body Mass Index 25.69 02/13/2023 6:39 AM DIRECTOR OF ACCOUNTS RECEIVABLE documented in this encounter Functional Status * [...] or making decisions? No 02/13/2023 6:35 AM DIRECTOR OF ACCOUNTS RECEIVABLE Ata Avendano RN Active * Because of [...] were not included. Patient ID: Diogenes Monet [id number] Admit date: 02/13/2023 Expected Discharge Date: 02/14/23 [...] to perineum as needed. Follow-up with regular [employer] physician in 2 weeks for routine follow-up or sooner if experiencing problems. ABDELRAHMAN WILSON CNM CTOR OF ACCOUNTS RECEIVABLE documented in this encounter Discharge Instructions * Attachments The following attachments cannot be sent through Care Everywhere. * Vaginal Delivery Discharge Instructions (Indonesian) documented in this encounter Medications at Time [...] cramps as well. Time spent 25 min CTOR OF ACCOUNTS RECEIVABLE CTOR OF ACCOUNTS RECEIVABLE * Elayne Lucia RN - 02/14/2023 8:30 [...] if we can get a better latch. CTOR OF ACCOUNTS RECEIVABLE CTOR OF ACCOUNTS RECEIVABLE * Otilia Rivera RN - 02/13/2023 8:40 PM CST Problem: Discharge Planning Goal: Discharge to home Outcome: Progressing Goal: Knowledge of caring for self- Outcome: Progressing Problem: Safety Goal: Knowledge of Safety Outcome: Progressing Problem: Pain Goal: Knowledge of pain management Outcome: Progressing Problem: Feeding Your [place] Goal: Knowledge of Outcome: Progressing Goal: Knowledge of formula feeding Outcome: Progressing CTOR OF ACCOUNTS RECEIVABLE * Shade Mathur RN - 02/13/2023 9:23 [...] Goal: Achieve acceptable pain level Outcome: Progressing CTOR OF ACCOUNTS RECEIVABLE documented in this encounter H&P Notes * [...] affecting management of mother in third trimester ([facility]) 10/11/2017 PTSD (post-traumatic stress disorder) Short interval between pregnancies affecting , antepartum ([facility]) 10/11/2017 Vitamin D deficiency Past Surgical [...] / >32weeks) , Decelerations: Absent Category 1 Jaars: Contraction Frequency (min): 3-7 Labs: Results for [...] , Dr. Dewey aware VIVI PETERSON CNM CTOR OF ACCOUNTS RECEIVABLE documented in this encounter Procedure Notes * [...] none QBL at Delivery Mother: Diogenes Monet #[id number] Start of Mother's Information QBL at Delivery QBL at Delivery 100 End of Mother's Information Mother: Diogenes Monet #[id number] Vaginal Sponge Counts Initial count personnel: Ar RAE Initial count verified by: Zelalem MATHUR RN Final count personnel: Kala PETERSON CNM Final count verified by: Ar REA Presentation and Position Presentation: Vertex Position: Right Occiput Anterior Pain Management Method: Epidural Delivery Providers Delivering clinician: Vivi Peterson CNM Provider Role Shade Mathur, TIMOTEO Labor Nurse Lluvia Morley, TIMOTEO Labor Nurse Jayleen Duff, [place] Nursery Nurse Melina Flores, DIRECTOR OF ACCOUNTS RECEIVABLE Set Key Driver Sandra Milian, TIMOTEO Nursery Nurse Delivery ([place]) Time head delivered: 02/13/2023 1351 date/time: 02/13/23 1351 Now Delivery type: Vaginal, Spontaneous Forceps?: No Vacuum?: No Water ?: No Details: Trial of labor?: Yes Skin to Skin Skin to skin initiated date/time: 02/13/2023 135 Skin to skin with: Mother Cord Vessels: 3 Vessels Complications: None Cord blood disposition: Lab Gases sent?: Yes Cord comments: marginal placental cord insert Resuscitation Method: None [place] Measurements Weight: 6 lb 10.4 oz Length: [...] recovery in stable condition. VIVI PETERSON CNM CTOR OF ACCOUNTS RECEIVABLE documented in this encounter Plan of Treatment Not on file documented as of this encounter Procedures Procedure Name Priority Date/Time Associated Diagnosis Comments HEMOGLOBIN AND HEMATOCRIT Routine 02/14/2023 5:15 AM DIRECTOR OF ACCOUNTS RECEIVABLE SYPHILIS IGG AB Routine 02/13/2023 6:30 AM DIRECTOR OF ACCOUNTS RECEIVABLE HIV 1 ANTIGEN(S), WITH HIV-1 AND HIV-2 ANTIBODIES Routine 02/13/2023 6:30 AM DIRECTOR OF ACCOUNTS RECEIVABLE DRUG SCREEN RAPID STAT 02/13/2023 6:3 0 AM DIRECTOR OF ACCOUNTS RECEIVABLE ([facility]) TYPE & SCREEN STAT 02/13/2023 6:30 AM DIRECTOR OF ACCOUNTS RECEIVABLE ([facility]) HC URINALYSIS AUTO W/O MICRO STAT 02/13/2023 6:30 AM DIRECTOR OF ACCOUNTS RECEIVABLE ([facility]) CBC W/DIFF AUTOMATED STAT 02/13/2023 6:30 AM DIRECTOR OF ACCOUNTS RECEIVABLE ([facility]) PATHOLOGY Routine 02/13/2023 12:00 AM DIRECTOR OF ACCOUNTS RECEIVABLE CULTURE, GRP B STREP Routine 02/02/2023 SYPHILIS IGG AB Routine 07/31/2022 HIV 1 ANTIGEN(S), WITH HIV-1 AND HIV-2 ANTIBODIES Routine 07/31/2022 RUBELLA IGG Routine 07/31/2022 HEPATITIS B SURFACE AG, EIA Routine 07/31/2022 documented in this encounter Results * (ABNORMAL) Hemoglobin and Hematocrit (02/14/2023 5:15 AM DIRECTOR OF ACCOUNTS RECEIVABLE) HGB 8.9(L) 12.0 - 16.0 G/DL 02/14/2023 6:29 AM DIRECTOR OF ACCOUNTS RECEIVABLE [facility] HCT 29.8(L) 38.0 - 48.0 % 02/14/2023 6:29 AM DIRECTOR OF ACCOUNTS RECEIVABLE [facility] 02/14/2023 5:15 AM DIRECTOR OF ACCOUNTS RECEIVABLE us Vivi Peterson CNM LABORATORY Final R esult Performing Organization Address City/[facility]/ZIP Co de Phone Number [facility] [address] [place] [address], [place] [phone] * HIV 1 ANTIGEN(S), WITH HIV-1 AND HIV-2 ANTIBODIES (02/13/2023 6:30 AM DIRECTOR OF ACCOUNTS RECEIVABLE) HIV 1/2 AB+ HIV1 P24 AG NON-REACTI VE NON-REACTI VE 02/13/2023 10:04 AM DIRECTOR OF ACCOUNTS RECEIVABLE [facility] 02/13/2023 6:30 AM DIRECTOR OF ACCOUNTS RECEIVABLE us Bert Oliver MD LABORATORY Final Result [facility] [address] [place] [address], * SYPHILIS IGG AB (RPR) (02/13/2023 6:30 AM DIRECTOR OF ACCOUNTS RECEIVABLE) Pathologist [facility] SYPHILIS IGG AB NON-REACTI VE NON-REACTI VE 02/13/2023 8:57 AM DIRECTOR OF ACCOUNTS RECEIVABLE [facility] 02/13/2023 6:30 AM DIRECTOR OF ACCOUNTS RECEIVABLE Bert Oliver MD LABORATORY Final Result [facility] [address] [place] [address], * DRUG SCREEN RAPID (02/13/2023 6:30 AM DIRECTOR OF ACCOUNTS RECEIVABLE) Pathologist [facility] AMPHETAMINE (U) NEGATIVE NEGATIVE 7:15 AM DIRECTOR OF ACCOUNTS RECEIVABLE [facility] BARBITURATES SCREEN (U) NEGATIVE NEGATIVE 02/13/2023 7:15 AM [facility] BENZODIAZEPINES SCREEN (U) NEGATIVE NEGATIVE 02/13/2023 7:15 AM DIRECTOR OF ACCOUNTS RECEIVABLE [facility] CANNABINOIDS SCREEN (U) NEGATIVE NEGATIVE 02/13/2023 7:15 AM DIRECTOR OF ACCOUNTS RECEIVABLE [facility] COCAINE METABOLITES (U) NEGATIVE NEGATIVE 02/13/2023 7:15 AM DIRECTOR OF ACCOUNTS RECEIVABLE [facility] METHADONE (U) NEGATIVE NEGATIVE 02/13/2023 7:15 AM DIRECTOR OF ACCOUNTS RECEIVABLE [facility] OPIATE SCREEN (U) NEGATIVE NEGATIVE 023 7:15 AM DIRECTOR OF ACCOUNTS RECEIVABLE [facility] PHENCYCLIDINE PCP (U) NEGATIVE NEGATIVE 02/13/2023 7:15 AM DIRECTOR OF ACCOUNTS RECEIVABLE [facility] Comment: NOTE: RESULTS OF THIS DRUG SCREEN SHOULD BE USED FOR MEDICAL PURPOSES ONLY AND NOT FOR LEGAL OR EMPLOYMENT PURPOSES. POSITIVE RESULTS ARE NOT CONFIRMED. MEDICATIONS CONTAINING EPHEDRINE MAY CAUSE FALSE POSITIVE AMPHETAMINE CALL [phone], LAB, TO REQUEST CONFIRMATION TESTING. IF CREATININE IS <40 mg/dL. ??RECOLLECTION IS SUGGESTED. AMPHETAMINE- ?500 NG/ML BARBITURATE- ?200 NG/ML BENZODIAZEPINES- ??200 NG/ML THC- ? 50 NG/ML COCAINE- ?150 NG/ML METHADONE- ?300 NG/ML OPIATE- ? 300 MG/ML PCP- ? 25 NG/ML CREATININE (U) 157.0 28 - 217 MG/DL 02/13/2023 7:15 AM [facility] URINE SPECIMEN / Unknown 02/13/2023 6:30 AM DIRECTOR OF ACCOUNTS RECEIVABLE us Bert Oliver MD URINE ORDERABLES Final Resul t [facility] [address] [place] [address], * (ABNORMAL) URINALYSIS (02/13/2023 6:30 AM DIRECTOR OF ACCOUNTS RECEIVABLE) SPECIMEN TYPE URINE CLEAN CATCH 02/13/2023 6:46 AM [facility] COLOR (U) YELLOW 02/13/2023 7:15 AM [facility] TRANSPARENCY CLEAR 02/13/2023 7:15 AM [facility] SPECIFIC GRAVITY (U) 1.022 1.001 - 1.030 02/13/2023 7:15 AM [facility] U PH 6.0 5.0 - 9.0 02/13/2023 7:15 AM [facility] LEUKOCYTES (U) 25(A) NEGATIVE 02/13/2023 7:15 AM DIRECTOR OF ACCOUNTS RECEIVABLE [facility] NITRITES NEGATIVE NEGATIVE 02/13/2023 7:15 AM [facility] PROTEIN RANDOM (U) 20 <30 MG/DL 02/13/2023 7:15 AM [facility] GLUCOSE (U) NORMAL NORMAL MG/DL 02/13/2023 7:15 AM [facility] KETONES MG/DL (U) 60(A) NEGATIVE MG/DL 02/13/2023 7:15 AM [facility] UROBILINOGEN NORMAL NORMAL MG/DL 02/13/2023 7:15 AM [facility] BILIRUBIN (U) NEGATIVE NEGATIVE MG/DL 02/13/2023 7:15 AM [facility] BLOOD (U) NEGATIVE NEGATIVE 02/13/2023 7:15 AM [facility] MUCUS MANY /LPF 02/13/2023 7:15 AM [facility] WBC/HPF 3 <6 /HPF 02/13/2023 7:15 AM [facility] RBC/HPF 2 <6 /HPF 02/13/2023 7:15 AM DIRECTOR OF ACCOUNTS RECEIVABLE [facility] SQUAMOUS EPITHELIALS RARE /HPF 02/13/2023 7:15 AM [facility] URINE SPECIMEN OBTAINED BY CLEAN CATCH PROCEDURE / Unknown 02/13/2023 6:30 AM DIRECTOR OF ACCOUNTS RECEIVABLE Bert Oliver MD URINE ORDERABLES Final Resul t [facility] [address] [place] [address], [place] [phone] * TYPE & SCREEN (02/13/2023 6:30 AM DIRECTOR OF ACCOUNTS RECEIVABLE) Pathologist [facility] ABO/RH A POSITIVE 02/13/2023 7:39 AM DIRECTOR OF ACCOUNTS RECEIVABLE [facility] ANTIBODY SCREEN NEGATIVE 02/13/2023 7:39 AM DIRECTOR OF ACCOUNTS RECEIVABLE [facility] SAMPLE EXPIRATION 02/16/2023,2 359 02/13/2023 7:39 AM DIRECTOR OF ACCOUNTS RECEIVABLE [facility] 02/13/2023 6:30 AM DIRECTOR OF ACCOUNTS RECEIVABLE us Bert Oliver MD BLOOD BANK TEST ORDERABLES F inal Result [facility] [address] [place] [address], [place] [phone] * (ABNORMAL) CBC W/DIFF AUTOMATED (02/13/2023 6:30 AM DIRECTOR OF ACCOUNTS RECEIVABLE) Pathologist [facility] WBC 10.8 4.5 - 11.0 x10'3/uL 02/13/2023 6:54 AM DIRECTOR OF ACCOUNTS RECEIVABLE [facility] RBC 4.37 4.20 - 5.40 x10'6/uL 02/13/2023 6:54 AM DIRECTOR OF ACCOUNTS RECEIVABLE [facility] HGB 10.0(L) 12.0 - 16.0 G/DL 02/13/2023 6:54 AM DIRECTOR OF ACCOUNTS RECEIVABLE [facility] HCT 33.1(L) 38.0 - 48.0 % 02/13/2023 6:54 AM DIRECTOR OF ACCOUNTS RECEIVABLE [facility] MCV 75.7(L) 81.0 - 99.0 FL 02/13/2023 6:54 AM [facility] MCH 22.9(L) 27.0 - 31.0 PG 02/13/2023 6:54 AM DIRECTOR OF ACCOUNTS RECEIVABLE [facility] MCHC 30.2(L) 32.0 - 36.0 G/DL 02/13/2023 6:54 AM [facility] RDW 15.8(H) 11.5 - 14.5 % 02/13/2023 6:54 AM [facility] PLT 194 130 - 400 x10'3/uL 02/13/2023 6:54 AM [facility] MPV 11.9 9.3 - 12.2 FL 02/13/2023 6:54 AM [facility] DIFFERENTIAL TYPE AUTOMATED DIFFERENTIAL 02/13/2023 6:54 AM [facility] NEUTROPHILS % 71.2 % 02/13/2023 6:54 AM [facility] LYMPHOCYTES % 21.3 % 02/13/2023 6:54 AM [facility] MONOCYTES % 6.0 % 02/13/2023 6:54 AM [facility] EOSINOPHILS 0.3 % 02/13/2023 6:54 AM [facility] BASOPHILS 0.2 % 02/13/2023 6:54 AM [facility] IMMATURE GRANS % 1.0 % 02/14/20 6:54 AM [facility] ABS. NEUTROPHILS TOTAL 7.71(H) 1.80 - 7.70 x10'3/uL 02/13/2023 6:54 AM [facility] ABS. LYMPHOCYTES 2.31 1.00 - 4.80 x10'3/uL 02/13/2023 6:54 AM [facility] ABS. MONOCYTES 0.65 0.24 - 0.86 x10'3/uL 02/13/2023 6:54 AM [facility] ABS. EOSINOPHILS 0.03(L) 0.04 - 0.36 x10'3/uL 02/13/2023 6:54 AM [facility] ABS. BASOPHILS 0.02 0.01 - 0.08 x10'3/uL 02/13/2023 6:54 AM DIRECTOR OF ACCOUNTS RECEIVABLE [facility] ABS. IMMATURE GRANULOCYTES 0.11 0.00 - 0.49 x10'3/uL 02/13/2023 6:54 AM DIRECTOR OF ACCOUNTS RECEIVABLE [facility] 02/13/2023 6:30 AM DIRECTOR OF ACCOUNTS RECEIVABLE us Bert Oliver MD LABORATORY Final Result [facility] [address] [facility] [place] [address], * Pathology-Placenta (02/13/2023 12:00 AM DIRECTOR OF ACCOUNTS RECEIVABLE) COPATH REPORT ?[facility] ? [address] [facility] [address] ? [place] ??[id number] ? [id number] ? Department of Pathology ? Pathology Report ? SURGICAL FINAL REPORT Patient Name: DIOGENES MONET ? : 2000 (Age: 22) ? Location: [facility] Gender: F ?Collected Date: 02/13/2023 Med Rec #: [id number] ?Date Received: 02/13/2023 Date Reported: 02/18/2023 Provider: [...] reveals a red-delgadillo homogenous cut surface. ?? Welder Gun sections are submitted as follows: 1 ? - ? Membrane roll 2 ? - ? Welder Gun cord 3-5 ? - ? Welder Gun full thickness placental disc :pb Billing Fee Code(s): 77112 [facility] 02/13/2023 02/13/2023 2:5 7 PM DIRECTOR OF ACCOUNTS RECEIVABLE Comment:Placenta and Umbilic al Cord Vivi Peterson CNM PATHOLOGY/CYTOLOGY [facility] Final Result [facility] [address] [place] [address], * CULTURE, GRP B STREP (02/02/2023) CULTURE [...] 2100, Until Discontinued, Given 02/14/2023 9:48 AM DIRECTOR OF ACCOUNTS RECEIVABLE 100 mg Given 02/13/2023 8:34 PM DIRECTOR OF ACCOUNTS RECEIVABLE 100 mg ibuprofen (MOTRIN) tablet 600 mg 600 mg, Oral, Every 6 hours PRN, Discomfort, Cramping, Starting on Sat02/13/23 at 1549, Until Virgen 02/14/23 at 1714, Do not order ibuprofen and Vicoprofen (hydrocodone/ibuprofen) together., Given 02/14/2023 10:19 AM DIRECTOR OF ACCOUNTS RECEIVABLE 600 mg Given 02/13/2023 3:54 PM DIRECTOR OF ACCOUNTS RECEIVABLE 600 mg lactated ringers bolus infusion 1,000 mL 1,000 mL, Intravenous, Administer over 30 Minutes, Once, 1 dose, On Sat02/13/23 at 0630, Bolus prior to epidural placement., Pre-DeliveryIndications:Pregnanc y ([facility]) New Bag 02/13/2023 9:45 AM DIRECTOR OF ACCOUNTS RECEIVABLE 1,000 mLs miSOPROStol (CYTOTEC) 200 MCG tablet [...] for hazardous medications. Given 02/13/2023 3:40 PM DIRECTOR OF ACCOUNTS RECEIVABLE 1,000 mcg oxytocin (PITOCIN) 15 units in [...] wear single chemotherapy approved gloves., Pre-DeliveryIndications:Pregnanc y ([facility]) New Bag 02/13/2023 3:40 PM DIRECTOR OF ACCOUNTS RECEIVABLE 600 mL/hr 600 mL/hr Rate/Dose Change 02/13/2023 1:52 PM DIRECTOR OF ACCOUNTS RECEIVABLE 999 mL/hr 999 mL/ hr oxytocin (PITOCIN) [...] gloves., Pre-Delivery Rate/Dose Change 02/13/2023 12:45 PM DIRECTOR OF ACCOUNTS RECEIVABLE 8 bibi-units/min 8 mL/hr Rate/Dose Change 02/13/2023 12:15 PM DIRECTOR OF ACCOUNTS RECEIVABLE 6 bibi-units/min 6 mL/hr Rate/Dose Change 02/13/2023 11:45 AM DIRECTOR OF ACCOUNTS RECEIVABLE 4 bibi-units/min 4 mL/hr penicillin G potassium 5 Million Units in sodium chloride 0.9 % 50 mL IVPB 5 Million Units, Intravenous, at 100 mL/hr, Once, 1 dose, On Sat02/13/23 at 0645, Pre-DeliveryIndications:Preg sho ([facility]) New Bag 02/13/2023 6:53 AM DIRECTOR OF ACCOUNTS RECEIVABLE 5 Million Units 100 mL/hr penicillin G potassium in 0.9% NaCl 100 mL IVPB 2.5 Million Units 2.5 Million Units, Intravenous, Every 4 hours, First dose on Sat02/13/23 at 1100, Until Discontinued, Until delivery, Pre-DeliveryIndications:Preg sho ([facility]) New Bag 02/13/2023 10:31 AM DIRECTOR OF ACCOUNTS RECEIVABLE 2.5 Million Units vitamin (low iron) 27-0.8 MG tablet 1 tablet 1 tablet, Oral, Nightly at bedtime, First dose on Sat02/13/23 at 2100, Until Discontinued Given 02/13/2023 8:34 PM DIRECTOR OF ACCOUNTS RECEIVABLE 1 tablet documented in this encounter Active and Recently Administered Medications Times are shown in DIRECTOR OF ACCOUNTS RECEIVABLE. Scheduled Medication Order 02/12/2023 02/13/2023 02/14/2023 docusate sodium (COLACE) capsule 100 mg 100 mg, Oral, Every 12 hours scheduled (2 times per day), First dose on Sat02/13/23 at 2100, Until Discontinued, 2033 (Given - Provider: Otilia Rivera RN) 0948 (Given - Provider: Brenda Leong, TIMOTEO) lactated ringers bolus infusion 1,000 [...] documented as of this encounter Care Teams Hose Tester Relationship Specialty Start Date End Date Zack Mancuso MD [address] [place] [phone] PCP - General FAMILY PRACTICE 10/12/22 documented as of this encounter
--- OUTSIDE RECORDS SUMMARY | 2024-03-15 18:29 | XMS_ITS | Encounter Summary ---
Author Organization [facility] Address [address] [place] [address]. [place], [place] [address] [place] [address] Care Team Providers Care Stave Log Cut Off Saw Operator Name Role Phone Zack Mancuso MD Primary Care Provider [phone] Reason for Visit * Reason Comments Vaginal Bleeding Encounter Details Date Type Department Care Team ([facility] st Contact Info) Description 02/18/2023 8:32 PM WIREWORKER SUPERVISOR - 02/18/2023 8:[address] [facility] Emergency [facility] [place] [address] Ese Amador PA [address] [place] [address] [phone] Vaginal Bleeding Discharge Disposition: Left Against Medical Advice Social History Tobacco Use Types Packs/Day Years Used Date Smoking Tobacco: Never Smokeless Tobacco: Never Alcohol Use Standard Drinks/Week Comments Never 0 (1 standard drink = 0.6 oz pur e alcohol) [facility] Utilities Answer Date Recorded In the past 12 months has [employer], gas, oil, or water [employer] threatened to shut off services in your [...] How often do you attend chur or sabianism services? Patient declined 02/13/2023 Do you belong to any clubs o r organizations such as mu-ism groups, unions, fraternal or athletic groups, or [...] Recorded Patient Health Questionnaire-2 Score 0 08/13/2022 [facility] - Occupational [...] Comments Blood Pressure 136/95 02/18/2023 7:41 PM WIREWORKER SUPERVISOR Pulse 85 02/18/2023 7:41 PM WIREWORKER SUPERVISOR Temperature 36.8 ??C (98.3 ??F) 02/18/2023 7:41 PM CS T Respiratory Rate 18 02/18/2023 7:41 PM WIREWORKER SUPERVISOR Oxygen Saturation 100% 02/18/2023 7:41 PM WIREWORKER SUPERVISOR Inhaled Oxygen Concentration - - Weight 59 kg (130 lb) 02/18/2023 7:41 PM WIREWORKER SUPERVISOR Height 160 cm (5' 3 ) 02/18/2023 7:41 PM WIREWORKER SUPERVISOR Body Mass Index 23.03 02/18/2023 7:41 PM WIREWORKER SUPERVISOR documented in this encounter Functional Status * Are you deaf or do you have serious difficulty hearing Answer Date of Assessment Author Status No 02/13/2023 6:35 AM WIREWORKER SUPERVISOR Ata Avendano R N Active * Are [...] MEME Sanchez - 02/18/2023 7:41 PM CST [place], [place] EMERGENCY DEPARTMENT ENCOUNTER HISTORICAL INFORMATION Primary [...] suicidal ideation Major depression in full remission ([facility]) 10/14/2014 Mass of right breast 07/10/2012 Menorrhagia 10/14/2014 Poor growth affecting management of mother in third trimester ([facility]) 10/11/2017 PTSD (post-traumatic stress disorder) Short interval between pregnancies affecting , antepartum ([facility]) 10/11/2017 Vitamin D deficiency SURGICAL HISTORY Past [...] min Stress: No Stress Concern Present (02/13/2023) [facility] - Occupational Stress Questionnaire Feeling of Stress : Not at all Social Connections: Unknown (02/13/2023) Social Connection and Isolation Panel [NHANES] Frequency of Communication with Friends and Family: More than three times a week Frequency of Social Gatherings with Friends and Family: Twice a week Attends Restorationist Services: Patient declined Active Member of Clubs [...] is normal. Mood/affect: mood/affect normal. Behavior normal. [facility] ED Course as of 02/18/232038 Mon Feb [...] Portions of this note were created using [employer], a speech recognition software. Occasional wrong word or sound alike substitutions may have occurred due to the inherent limitations of voice recognition software. Please read the note carefully and use context to recognize when substitutions may have occurred. MEME Sanchez 02/18/232038 Cosigned by Prisca Cartagena MD at 02/18/2023 9:51 PM WIREWORKER SUPERVISOR WORKER SUPERVISOR WORKER SUPERVISOR * Sharif Weems RN - 02/18/2023 7:40 PM CST Pt to ed with c/o vaginal bleeding. States had vaginal delivery on 02/13/23. Reports has been passing large clots since. Pt a&ox4. WORKER SUPERVISOR documented in this encounter Plan of Treatment Not on file documented as of this encounter Visit Diagnoses Not on filedocumented in this encounter Active and Recently Administered Medications Times are shown in WIREWORKER SUPERVISOR. Scheduled Medication Order 02/16/2023 02/17/2023 02/18/2023 sodium [...] documented as of this encounter Care Teams Stave Log Cut Off Saw Operator Relationship Specialty Start Date End Date Zack Mancuso MD [address] [place] [address] PCP - General FAMILY PRACTICE 10/12/22 documented as of this encounter
--- OUTSIDE RECORDS SUMMARY | 2024-03-15 18:30 | XMS_ITS | Encounter Summary ---
Author Organization [facility] Address [address] [place] [address]. 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 documented in this encounter Plan of Treatment Not on file documented as of this encounter Visit Diagnoses Not on filedocumented in this encounter Additional Health Concerns Assessment Noted Time PHQ-9 Depression Total Score: 16 022 10:37 AM CDT documented as of this encounter Care Teams Wire Preparation Worker Relationship Specialty Start Date End Date La Nena Ferro, SUPPLY CHAIN VICE PRESIDENT- PCP - General Nurse Practitioner Family 06/20/22 3 documented as of this encounter
--- OUTSIDE RECORDS SUMMARY | 2024-03-15 18:30 | XMS_ITS | Encounter Summary ---
Author Organization [facility] Address [address] [place] [address]. [place], [place] [address] [place] [address] Care Team Providers Care Spooling Supervisor Name Role Phone Victoria Tarango-PATRICIA Primary Care Provider Unav ailable Reason for Referral * Imaging (Emergency) - Closed Specialty Diagnoses / Procedures Referred By Dora oconnor Referred To Contact RADIOLOGY Diagnoses Right sided abdominal pain Hematuria, unspecified type Procedures US RETROPERITONEAL COMP Victoria Tarango FNP-BC Referral ID Status Reason Start Date Expiration Date Visits Re quested Visits Authorized [id number] Closed 08/13/2022 08/14/2023 1 1 Reason for Visit * Reason Comments ER F/U [facility] D/C 08/12/22 Encounter Details Date Type Department Care Team (Late st Contact Info) Description 08/13/2022 3:20 PM CDT Office Visit [address] [phone] Victoria Tarango FNP-BC ER F/U ([facility] D/C 08/12/22) Social History Tobacco Use Types [...] PM CDT Reason for Visit: ER F/U ([facility] D/C 08/12/22) History of Present Illness: Pt [...] CT of the abdomen and pelvis, 06/18/2018 ([facility]). Technique: Grayscale and color Doppler images. Findings: [...] CT of the abdomen and pelvis, 06/18/2018 ([facility]). Technique: Grayscale and color Doppler images. Findings: [...] MD, 08/13/2022 4:34 PM us Victoria Tarango WEIGHER BULKER-BC ULTRASOUND Final Resul t * CULTURE URINE (08/13/2022 3:18 PM CDT) SPEC DESCRIPTION URINE CLEAN CATCH 08/13/2022 3:26 PM CDT [facility] SPECIAL REQUESTS NO SPECIAL REQUEST 08/13/2022 3:26 PM CDT [facility] CULTURE RESULT NO GROWTH 2 DAYS 08/16/2022 8:38 AM CDT [facility] URINE SPECIMEN OBTAINED BY CLEAN CATCH PROCEDURE / Unknown 08/13/2022 3:18 PM CDT 08/13/2022 3:27 PM CDT Victoria Tarango WEIGHER BULKER-BC MICROBIOLOGY - GENERAL SEBASTIAN DELGADO Final Result [facility] [address] [place] [address], [place] [phone] [facility] [address] [place] [address], [place] [phone] * (ABNORMAL) URINALYSIS AUTO DIP (08/13/2022) COLOR (U) PALE YELLOW YELLOW [facility] [place] (9401), [place] TRANSPARENCY CLEAR CLEAR [facility] (9401), [facility] GLUCOSE (U) NEGATIVE NEGATIVE MG/DL [facility] [place] (9401), [facility] BILIRUBIN (U) NEGATIVE NEGATIVE [facility] [place] (9401), ALVA KETONES MG/DL (U) NEGATIVE NEGATIVE MG/DL [facility] (9401), [facility] SPECIFIC GRAVITY (U) 1.015 1.001 - 1.035 [facility] (9401), ALVA BLOOD (U) TRACE (Non Hemolyzed, Intact)(A) NEGATIVE [facility] (9401), ALVA U PH 7.0 5.0 - 9.0 [facility] (9401), ALVA PROTEIN (U) NEGATIVE NEGATIVE mg/dL [facility] (9401), ALVA UROBILINOGEN 0.2 0.2 - 1.0 EU/dL = mg/dL [facility] (9401), ALVA NITRITES NEGATIVE NEGATIVE MG/DL [facility] [place] (9401), ALVA LEUKOCYTES (U) TRACE(A) NEGATIVE [facility] [place] (9401), ALVA URINE SPECIMEN FROM URETHRA / Unknown 08/13/2022 us Victoria SCHROEDER URINE ORDERABLES Final Resu lt [facility] [place] (1033), ALVA [address] [place] [address], documented in this encounter Visit Diagnoses Diagnosis Right sided abdominal pain- Primary Abdominal pain, unspecified site Hematuria, unspecified type Right sided abdominal pain Abdominal pain, unspecified site Hematuria, unspecified type documented in this encounter Additional Health Concerns Assessment Noted Time PHQ-9 Depression Total Score: 16 01/02/ 022 10:37 AM CDT documented as of this encounter Care Teams Spooling Supervisor Relationship Specialty Start Date End Date Victoria Tarango FNP-BC PCP - General Nurse Practitioner Family 06/20/22 3 documented as of this encounter
--- OUTSIDE RECORDS SUMMARY | 2024-03-15 18:30 | XMS_ITS | Encounter Summary ---
Author Organization [facility] Address [address] [place] [address]. [place], [place] [address] [place] [address] Care Team Providers Care Vp & General Counsel Name Role Phone La Nena Ferro BAKERY PRODUCTS CHECKER-BC Primary Care Provider Miguel Taylor MD Primary Care Provider [phone] Encounter Details Date Type Department Care Team (Latest Contact Info) Description 08/17/2022 [email or web address] Message [address] [address] La Nena Ferro, BAKERY PRODUCTS CHECKER-BC Preeclampsia or HELLP syndrome Social History Tobacco [...] documented as of this encounter Care Teams Vp & General Counsel Relationship Specialty Start Date End Date La Nena Ferro BAKERY PRODUCTS CHECKER-BC PCP - General Nurse Practitioner Family 06/20/22 3 Miguel Mancuso MD [address] [place] [address] PCP - General FAMILY PRACTICE 10/12/22 documented as of this encounter
--- OUTSIDE RECORDS SUMMARY | 2024-03-15 18:30 | XMS_ITS | Encounter Summary ---
Author Organization [facility] Address [address] [place] [address]. [place], [place] [address] [place] [address] Care Team Providers Care Puttier Name Role Phone La Nena Ferro CONCIERGE MANAGER-BC Primary Care Provider Miguel Taylor MD Primary Care Provider [phone] Encounter Details Date Type Department Care Team (Late st Contact Info) Description 08/20/2022 [employer] Message [address] [phone] La Nena Ferro, CONCIERGE MANAGER-BC Bleeding/ pain/ symptoms of passing out Social [...] documented as of this encounter Care Teams Puttier Relationship Specialty Start Date End Date La Nena Ferro, CONCIERGE MANAGER-BC PCP - General Nurse Practitioner Family 06/20/22 3 Miguel Mancuso MD [address] [place] [address] PCP - General FAMILY PRACTICE 10/12/22 documented as of this encounter
--- OUTSIDE RECORDS SUMMARY | 2024-03-15 18:30 | XMS_ITS | Encounter Summary ---
Author Organization [facility] Address [address] [place] [address]. [place], [place] [address] [place] [address] Care Team Providers Care Manager Cosmetics Name Role Phone La Nena Ferro DIRECTOR OF BILLING-BC Primary Care Provider Miguel Taylor MD Primary Care Provider [phone] Encounter Details Date Type Department Care Team (Late st Contact Info) Description 08/16/2022 [employer] Message [address] [address] La Nena Ferro FNP-PATRICIA Uti [...] documented as of this encounter Care Teams Manager Cosmetics Relationship Specialty Start Date End Date La Nena Ferro FNP- PCP - General Nurse Practitioner Family 06/20/22 3 Miguel Mancuso MD [address] [place] [address] PCP - General FAMILY PRACTICE 10/12/22 documented as of this encounter
--- OUTSIDE RECORDS SUMMARY | 2024-03-15 18:30 | XMS_ITS | Encounter Summary ---
Author Organization [facility] Address [address] [place] [address]. [place], [place] [address] [place] [address] Care Team Providers Care Dry House Worker Name Role Phone La Nena Ferro DERMATOLOGY PHYSICIAN-BC Primary Care Provider Unav ailable Encounter Details [...] as of this encounter Care Teams Dry House Worker Relationship Specialty Start Date End Date La Nena Ferro FNP-BC PCP - General Nurse Practitioner Family 06/20/22 3 documented as of this encounter
--- OUTSIDE RECORDS SUMMARY | 2024-03-15 18:30 | XMS_ITS | Encounter Summary ---
Author Organization [facility] Address [address] [place] [address]. [place] [address] [place] [address] Care Team Providers Care Curator Zoological Museum Name Role Phone La Nena Ferro HIGH SCHOOL MATH TUTOR-BC Primary Care Provider Unav ailable Reason for Visit * Reason Onset Date Comments Concerns 08/13/2022 Encounter Details Date Type Department Care Team (Late st Contact Info) Description 08/13/[address] [address] La Nena Ferro, HIGH SCHOOL MATH TUTOR-BC Concerns Social History Tobacco Use Types Packs/Day [...] from patient stating that she went to [facility] ER last night for vaginal bleeding and [...] documented as of this encounter Care Teams Curator Zoological Museum Relationship Specialty Start Date End Date La Nena Ferro, HIGH SCHOOL MATH TUTOR- PCP - General Nurse Practitioner Family 06/20/22 3 documented as of this encounter
--- OUTSIDE RECORDS SUMMARY | 2024-03-15 18:30 | XMS_ITS | Encounter Summary ---
Author Organization [facility] Address [address] [place] [address]. [place], [place] [address] [place] [address] Care Team Providers Care Material Control Analyst Name Role Phone La Nena Ferro SUPERVISOR COIN MACHINE-BC Primary Care Provider Miguel Taylor MD Primary Care Provider [phone] Encounter Details Date Type Department Care Team (Latest Contact Info) Description 09/19/2022 [employer] Message [address] [place] [address] La Nena Ferro FNP-PATRICIA Letter [...] documented as of this encounter Care Teams Material Control Analyst Relationship Specialty Start Date End Date La Nena Ferro FNP-PATRICIA PCP - General Nurse Practitioner Family 06/20/22 3 Miguel Mancuso MD [address] [place] [address] PCP - General FAMILY PRACTICE 10/12/22 documented as of this encounter
--- OUTSIDE RECORDS SUMMARY | 2024-03-15 18:30 | XMS_ITS | Encounter Summary ---
Author Organization [facility] Address [address] [place] [address]. [place] [address] [place] [address] Care Team Providers Care Offset Proof Press Operator Name Role Phone La Nena Ferro MACHINING AND ASSEMBLY SUPERVISOR- Primary Care Provider Unav ailable Encounter Details Date Type Department Care Team (Latest Contact Info) Description 08/13/2022 3:26 PM CDT - 08/13/2022 3:39 PM CDT Hospital Encounter [facility] [address] [place], [place] [address] La Nena Ferro, [facility] Discharge Disposition: Home or Self [...] Date/Time Associated Diagnosis Comments URINE BACTERIA CULTURE Routine 08/13/2022 3:18 PM CDT Right sided abdominal pain documented in this encounter Results * CULTURE URINE (08/13/2022 3:18 PM CDT) SPEC DESCRIPTION URINE CLEAN CATCH 08/13/2022 3:[address] [facility] SPECIAL REQUESTS NO SPECIAL REQUEST 08/13/2022 3:[address] [facility] CULTURE RESULT NO GROWTH 2 DAYS 08/16/2022 8:[address] [facility] URINE SPECIMEN OBTAINED BY CLEAN CATCH PROCEDURE / Unknown 08/13/2022 3:18 PM CDT 08/13/2022 3:27 PM CDT us La Nena BARCLAYP-BC MICROBIOLOGY - GENERAL SEBASTIAN DELGADO Final Result Performing Organization Address City/State/[facility] Co de Phone Number [facility] [address] [place] [address], [place] [phone] [facility] [address] [place] [address], [place] [phone] documented in this encounter Visit Diagnoses Diagnosis Right sided abdominal pain Abdominal pain, unspecified site documented in this encounter Additional Health Concerns Assessment Noted Time PHQ-9 Depression Total Score: 16 022 10:37 AM CDT documented as of this encounter Care Teams Offset Proof Press Operator Relationship Specialty Start Date End Date La Nena Ferro FNP-PATRICIA PCP - General Nurse Practitioner Family 06/20/22 3 documented as of this encounter
--- OUTSIDE RECORDS SUMMARY | 2024-03-15 18:30 | XMS_ITS | Encounter Summary ---
Author Organization [facility] Address [address] [place] [address]. [place], [place] [address] [place] [address] Care Team Providers Care City Driver Name Role Phone Victoria Tarango FORENSIC SCIENCE TECHNICIAN-BC Primary Care Provider Unav ailable Reason for Referral * Imaging (Emergency) - Closed Specialty Diagnoses / Procedures Referred By Dora oconnor Referred To Contact RADIOLOGY Diagnoses Right sided abdominal pain Hematuria, unspecified type Procedures US RETROPERITONEAL COMP Victoria Tarango FNP-BC Referral ID Status Reason Start Date Expiration Date Visits Re quested Visits Authorized [id number] Closed 08/13/2022 08/14/2023 1 1 Reason for Visit * Imaging (Emergency) - Closed Specialty Diagnoses / Procedures Referred By Dora oconnor Referred To Contact RADIOLOGY Diagnoses Right sided abdominal pain Hematuria, unspecified type Procedures US RETROPERITONEAL COMP Victoria Tarango, MARA-PATRICIA Referral ID Status Reason Start Date Expiration Date Visits Re quested Visits Authorized [id number] Closed 08/13/2022 08/14/2023 1 1 Encounter Details Date Type Department Care Team (Latest Contact Info) Description 08/13/2022 3:40 PM CDT - 08/13/2022 11:59 PM CDT Hospital Encounter [facility] Ultrasound [address] [place], [place] [address] Victoria Tarango FNP-BC Discharge Disposition: Home or [...] CT of the abdomen and pelvis, 06/18/2018 ([facility]). Technique: Grayscale and color Doppler images. [...] CT of the abdomen and pelvis, 06/18/2018 ([facility]). Technique: Grayscale and color Doppler images. Findings: [...] MD, 08/13/2022 4:34 PM us Victoria Tarango FORENSIC SCIENCE TECHNICIAN-BC ULTRASOUND Final Resul t documented in this encounter Visit Diagnoses Diagnosis Right sided abdominal pain Abdominal pain, unspecified site Hematuria, unspecified type documented in this encounter Additional Health Concerns Assessment Noted Time PHQ-9 Depression Total Score: 16 022 10:37 AM CDT documented as of this encounter Care Teams City Driver Relationship Specialty Start Date End Date Victoria Tarango, [facility]- PCP - General Nurse Practitioner Family 06/20/22 3 documented as of this encounter
--- OUTSIDE RECORDS SUMMARY | 2024-03-15 18:32 | XMS_ITS | Encounter Summary ---
Author Organization [facility] Address [address] [place] [address]. [place], [place] [address] [place] [address] Care Team Providers Care Optoelectronic Technician Name Role Phone La Nena Ferro DIRECTOR OF STAFF DEVELOPMENT-BC Primary Care Provider Unav ailable Encounter Details [...] documented as of this encounter Care Teams Optoelectronic Technician Relationship Specialty Start Date End Date La Nena Ferro, MARA-BC PCP - General Nurse Practitioner Family 06/20/22 3 documented as of this encounter
--- OUTSIDE RECORDS SUMMARY | 2024-03-15 18:32 | XMS_ITS | Encounter Summary ---
Author Organization [facility] Address [address] [place] [address]. [place], [place] [address] [place] [address] Care Team Providers Care Bowling Ball Molder Name Role Phone None, Provider MD Primary Care Provider Unavaila ble Reason for Visit * Reason Onset Date Comments Documents 01/02/2022 Encounter Details Date Type Department Care Team (Late st Contact Info) Description 01/02/[address] [address] La Nena Ferro, [facility]- Documents Social History Tobacco Use Types Packs/Day [...] the end of February. Please post to DocDep patient portal documented in this encounter Plan of Treatment Not on file documented as of this encounter Visit Diagnoses Not on filedocumented in this encounter Additional Health Concerns Assessment Noted Time PHQ-9 Depression Total Score: 16 022 10:37 AM CDT documented as of this encounter Care Teams Bowling Ball Molder Relationship Specialty Start Date End Date None, Provider, PCP - General 12/27/21 06/19/22 documented as of this encounter
--- OUTSIDE RECORDS SUMMARY | 2024-03-15 18:32 | XMS_ITS | Encounter Summary ---
Author Organization [facility] Address [address] [place] [address]. [place], [place] [address] [place] [address] Care Team Providers Care Lining Baster Name Role Phone La Nena Ferro PANEL FLOW MACHINE OPERATOR- Primary Care Provider Unav ailable Reason for Visit * Reason Onset Date Comments Advice 06/20/2022 Encounter Details Date Type Department Care Team (Late st Contact Info) Description 06/20/2022 Telephone [facility] DEFAULT La Nena Ferro, PANEL FLOW MACHINE OPERATOR-PATRICIA Advice Social History Tobacco Use Types Packs/Day [...] documented as of this encounter Care Teams Lining Baster Relationship Specialty Start Date End Date La Nena Ferro, PANEL FLOW MACHINE OPERATOR- PCP - General Nurse Practitioner Family 06/20/22 3 documented as of this encounter
--- OUTSIDE RECORDS SUMMARY | 2024-03-15 18:32 | XMS_ITS | Encounter Summary ---
Author Organization [facility] Address [address] [place] [address]. [address] [address] Care Team Providers Care Freight Solicitor Name Role Phone None, Provider Primary Care [...] documented as of this encounter Care Teams Freight Solicitor Relationship Specialty Start Date End Date None, Provider, PCP - General 12/27/21 06/19/22 documented as of this encounter
--- OUTSIDE RECORDS SUMMARY | 2024-03-15 18:32 | XMS_ITS | Encounter Summary ---
Author Organization [facility] Address [address] [place] [address]. [place], [place] [address] [place] [address] Care Team Providers Care Recruiter Name Role Phone None, Provider MD Primary Care Provider Unavaila ble Reason for Visit * Reason Onset Date Comments Referral 04/25/2022 Encounter Details Date Type Department Care Team (Late st Contact Info) Description 04/25/[address] [phone] La Nena Ferro, [facility] Referral Social History Tobacco Use Types Packs/Day [...] CST Referral faxed. BRITTANY SPANGLER RN 04/25/2022 CAST DIRECTOR * Lexi Dumont - 04/25/2022 3:12 PM CST Please fax Ambulatory referral to Neurology ([facility]) (Order # [id number]) on 12/19/2021 To [facility] PH: [phone] CAST DIRECTOR documented in this encounter Plan of Treatment Not on file documented as of this encounter Visit Diagnoses Not on filedocumented in this encounter Additional Health Concerns Assessment Noted Time PHQ-9 Depression Total Score: 16 022 10:37 AM CDT documented as of this encounter Care Teams Recruiter Relationship Specialty Start Date End Date None, Provider, PCP - General 12/27/21 06/19/22 documented as of this encounter
--- OUTSIDE RECORDS SUMMARY | 2024-03-15 18:32 | XMS_ITS | Encounter Summary ---
Author Organization [facility] Address [address] [place] [address]. [place], [place] [address] [place] [address] Care Team Providers Care Ready Mix Truck Driver Name Role Phone None, Provider Primary Care Provider Jacquelin baker Encounter Details Date Type Department Care Team (Latest Contact Info) Description 02/24/2022 2:21 PM CUSTOMER LOYALTY REPRESENTATIVE - 02/24/2022 11:59 PM CUSTOMER LOYALTY REPRESENTATIVE Hospital Encounter [facility] [address] [place] [address] La Nena Ferro, [facility] Discharge Disposition: Home or Self Care (Routine [...] Coronavirus/COVID-19? No / Unsure 02/24/2022 8:29 AM CUSTOMER LOYALTY REPRESENTATIVE documented as of this encounter Medications at [...] CHLAM/GC/TRICHOMONA S PROFILE Routine 02/24/2022 9:41 AM CUSTOMER LOYALTY REPRESENTATIVE Painful urination STI (sexually transmitted infection) URINE BACTERIA CULTURE Routine 02/24/2022 9:11 AM CUSTOMER LOYALTY REPRESENTATIVE Painful urination documented in this encounter Results * CHLAM/GC/TRICHOMONAS PROFILE (02/24/2022 9:41 AM CUSTOMER LOYALTY REPRESENTATIVE) SPEC DESCRIPTION URINE 02/25/20 2:21 PM CUSTOMER LOYALTY REPRESENTATIVE [facility] CHLAMYDIA RNA TMA NEGATIVE NEGATIVE 022 2:16 PM CUSTOMER LOYALTY REPRESENTATIVE [facility] Comment:PERFORMED BY NUCLEIC ACID AMPLIFICATION N.GONORRHOEAE RNA TMA NEGATIVE NEGATIVE 02/26/2022 2:16 PM CUSTOMER LOYALTY REPRESENTATIVE [facility] Comment:PERFORMED BY NUCLEIC ACID AMPLIFICATION TRICHOMONAS NEGATIVE NEGATIVE 02/26/2022 2:19 PM CUSTOMER LOYALTY REPRESENTATIVE [facility] Comment:PERFORMED BY NUCLEIC ACID AMPLIFICATION URINE SPECIMEN / Unknown 02/24/2022 9:41 AM CUSTOMER LOYALTY REPRESENTATIVE La Nena Ferro [facility] MICROBIOLOGY - GENERAL ORDJuan DELGADO Final Result Performing Organization Address City/State/[facility] Co de Phone Number [facility] [address] [place] [address], [place] [phone] [facility] [address] [place] [address], [place] [phone] * CULTURE URINE (02/24/2022 9:11 AM CUSTOMER LOYALTY REPRESENTATIVE) SPEC DESCRIPTION URINE CLEAN CATCH 02/24/2022 2:21 PM CUSTOMER LOYALTY REPRESENTATIVE [facility] SPECIAL REQUESTS NO SPECIAL REQUEST 02/24/2022 2:21 PM CUSTOMER LOYALTY REPRESENTATIVE [facility] CULTURE RESULT NO GROWTH 2 DAYS 02/27/2022 7:28 AM CUSTOMER LOYALTY REPRESENTATIVE [facility] URINE SPECIMEN OBTAINED BY CLEAN CATCH PROCEDURE / Unknown 02/24/2022 9:11 AM CUSTOMER LOYALTY REPRESENTATIVE 02/24/2022 2:22 PM CUSTOMER LOYALTY REPRESENTATIVE La Nena Ferro CENTRIFUGAL EXTRACTOR OPERATOR- MICROBIOLOGY - GENERAL SEBASTIAN DELGADO Final Result Performing Organization Address City/State/[facility] Co de Phone Number [facility] [address] [place] [address], [place] [phone] [facility] [address] [place] [address], [place] [phone] documented in this encounter Visit Diagnoses Diagnosis Painful urination Dysuria STI (sexually transmitted infection) Venereal disease, unspecified documented in this encounter Additional Health Concerns Assessment Noted Time PHQ-9 Depression Total Score: 16 022 10:37 AM CDT documented as of this encounter Care Teams Ready Mix Truck Driver Relationship Specialty Start Date End Date None, Provider, PCP - General 12/27/21 06/19/22 documented as of this encounter
--- OUTSIDE RECORDS SUMMARY | 2024-03-15 18:32 | XMS_ITS | Encounter Summary ---
Author Organization [facility] Address [address] [place] [address]. [address] [address] Care Team Providers Care Veterinary Technician Assistant Name Role Phone None, Provider Primary Care [...] Coronavirus/COVID-19? No / Unsure 02/24/2022 8:29 AM GASOLINE PLANT OPERATOR documented as of this encounter Plan of Treatment Not on file documented as of this encounter Visit Diagnoses Not on filedocumented in this encounter Additional Health Concerns Assessment Noted Time PHQ-9 Depression Total Score: 16 022 10:37 AM CDT documented as of this encounter Care Teams Veterinary Technician Assistant Relationship Specialty Start Date End Date None, Provider, PCP - General 12/27/21 06/19/22 documented as of this encounter
--- OUTSIDE RECORDS SUMMARY | 2024-03-15 18:32 | XMS_ITS | Encounter Summary ---
Author Organization [facility] Address [address] [place] [address]. [place], [place] [address] [place] [address] Care Team Providers Care Promotion Manager Name Role Phone None, Provider MD Primary Care Provider Unavaila ble Reason for Visit * Reason Comments UTI Frequency and pain x 3 days Encounter Details Date Type Department Care Team (Late st Contact Info) Description 02/24/2022 10:00 AM HVAC R INSTRUCTOR Office Visit [address] [phone] Victoria Tarango, DITCH RIDER-BC UTI (Frequency and pain x 3 days) [...] Coronavirus/COVID-19? No / Unsure 02/24/2022 8:29 AM HVAC R INSTRUCTOR documented as of this encounter Last Filed Vital Signs Vital Sign Reading Time Taken Comments Blood Pressure 123/79 02/24/2022 9:39 AM HVAC R INSTRUCTOR Pulse 60 02/24/2022 9:39 AM HVAC R INSTRUCTOR Temperature 37.6 ??C (99.7 ??F) 02/24/2022 8:50 AM CS T Respiratory Rate 18 02/24/2022 8:50 AM HVAC R INSTRUCTOR Oxygen Saturation 98% 02/24/2022 8:50 AM HVAC R INSTRUCTOR Inhaled Oxygen Concentration - - Weight 49 kg (108 lb) 02/24/2022 8:50 AM HVAC R INSTRUCTOR Height 160 cm (5' 3 ) 02/24/2022 8:50 AM HVAC R INSTRUCTOR Body Mass Index 19.13 02/24/2022 8:50 AM HVAC R INSTRUCTOR documented in this encounter Progress Notes * Victoria Dallas Tarango, DITCH RIDER-BC - 02/24/2022 10:00 AM CST Reason for [...] Dispense: 14 capsule; Refill: 0 VICTORIA TARANGO R INSTRUCTOR documented in this encounter Plan of Treatment Not on file documented as of this encounter Procedures Procedure Name Priority Date/Time Associated Diagnosis Comments URINALYSIS AUTO DIP Routine 02/24/2022 Painful urination documented in this encounter Results * CHLAM/GC/TRICHOMONAS PROFILE (02/24/2022 9:41 AM HVAC R INSTRUCTOR) SPEC DESCRIPTION URINE 02/25/20 22 2:21 PM HVAC R INSTRUCTOR [facility] CHLAMYDIA RNA TMA NEGATIVE NEGATIVE 022 2:16 PM HVAC R INSTRUCTOR [facility] Comment:PERFORMED BY NUCLEIC ACID AMPLIFICATION N.GONORRHOEAE RNA TMA NEGATIVE NEGATIVE 02/26/2022 2:16 PM HVAC R INSTRUCTOR [facility] Comment:PERFORMED BY NUCLEIC ACID AMPLIFICATION TRICHOMONAS NEGATIVE NEGATIVE 02/26/2022 2:19 PM HVAC R INSTRUCTOR [facility] Comment:PERFORMED BY NUCLEIC ACID AMPLIFICATION URINE SPECIMEN / Unknown 02/24/2022 9:41 AM HVAC R INSTRUCTOR [facility] - GENERAL ORDE SANDY Final Result [facility] [address] [place] [address], [facility] [address] [place] [address], [place] [phone] * CULTURE URINE (02/24/2022 9:11 AM HVAC R INSTRUCTOR) SPEC DESCRIPTION URINE CLEAN CATCH 02/24/2022 2:21 PM HVAC R INSTRUCTOR [facility] SPECIAL REQUESTS NO SPECIAL REQUEST 02/24/2022 2:21 PM HVAC R INSTRUCTOR [facility] CULTURE RESULT NO GROWTH 2 DAYS 02/27/2022 7:28 AM HVAC R INSTRU[address] [facility] URINE SPECIMEN OBTAINED BY CLEAN CATCH PROCEDURE / Unknown 02/24/2022 9:11 AM HVAC R INSTRUCTOR 02/24/2022 2:22 PM HVAC R INSTRUCTOR us Victoria Tarango DITCH RIDER- MICROBIOLOGY - GENERAL SEBASTIAN DELGADO Final Result [facility] [address] [facility] [place] [address], [place] [phone] [facility] [address] [place] [address], [place] [phone] * URINALYSIS AUTO DIP (02/24/2022) COLOR (U) YELLOW MG-[place] (9401), [place] TRANSPARENCY CLOUDY [facility]-[place] (9401), [place] GLUCOSE (U) NEGATIVE NEGATIVE MG/DL [facility]-[place] (9401), [place] BILIRUBIN (U) NEGATIVE NEGATIVE MG-HOL Y CROSS [place] (9401), [place] KETONES MG/DL (U) NEGATIVE NEGATIVE MG/DL [facility]-[place] (9401), [place] SPECIFIC GRAVITY (U) 1.020 1.001 - 1.035 [facility]-[place] (9401), [place] BLOOD (U) TRACE (Non Hemolyzed, Intact) NEGATIVE [facility] (9401), [place] U PH 6.0 5.0 - 9.0 [facility] (9401), [place] PROTEIN (U) NEGATIVE NEGATIVE mg/dL [facility] (9401), [place] UROBILINOGEN 0.2 0.2 - 1.0 EU/dL = mg/dL [facility] (9401), [place] NITRITES NEGATIVE NEGATIVE MG/DL [facility]-[place] (9401), [place] LEUKOCYTES (U) TRACE NEGATIVE MG-HO LY CROSS [place] (9401), [place] URINE SPECIMEN OBTAINED BY CLEAN CATCH PROCEDURE / Unknown 02/24/2022 us Victoria Marins DITCH RIDER- URINE ORDERABLES Final Resu lt -JOAQUIN HOLGUIN (0810), [place] [address] [facility] [address] [place] [id number], [place] [phone] documented in this encounter Visit Diagnoses Diagnosis [...] (sexually transmitted infection) Given 02/24/2022 10:00 AM HVAC R INSTRUCTOR 500 mg Right Anterior Thigh documented in this encounter Additional Health Concerns Assessment Noted Time PHQ-9 Depression Total Score: 16 022 10:37 AM CDT documented as of this encounter Care Teams Promotion Manager Relationship Specialty Start Date End Date None, Provider, PCP - General 12/27/21 06/19/22 documented as of this encounter
--- OUTSIDE RECORDS SUMMARY | 2024-03-15 18:32 | XMS_ITS | Encounter Summary ---
Author Organization [facility] Address [address] [place] [address]. [place], [place] [address] [place] [address] Care Team Providers Care Clarity Specialists Name Role Phone Ferro La Nena Haynes [facility] Primary Care Provider Unav ailable Reason for Visit * Reason Comments Shortness Of Breath Abdominal Pain Back Pain Vaginal Bleeding Encounter Details Date Type Department Care Team (Late st Contact Info) Description 07/12/2022 7:42 PM CDT - 07/12/2022 11:45 PM CDT Emergency [facility] [place] [address] Kendall Barajas MD,PHD [address] [place] [address] Suzette Lozano PA-C [address] [address] Shortness Of Breath ; Abdominal Pain; Back [...] in the vagina until follow-up with your INTERFACE ENGINEER. Please follow-up with your INTERFACE ENGINEER for further evaluation of bleeding and cramping in early . You will likely need follow-up blood testing and ultrasound to track your . Continue to follow COVID quarantine guidelines. [id number] Tylenol as needed for pain. Return to the emergency room with new or worseningsymptoms, uncontrolled pain or bleeding, or further concern. * Attachments The following attachments cannot be sent through Care Everywhere. * Bleeding in Early ED (Ukrainian) documented in this encounter Medications at Time of Discharge VITAMINS 28-0.8 MG tablet Take 1 tablet by mouth nightly at bedtime. at bedtime 07/02/2022 documented as of this encounter ED Notes * Suzette Lozano PA-C - 07/12/2022 11:31 PM CDTSummary: bleeding of [facility] ED NOTE Mariam Lea 2000 Chief Complaint [...] weeks per ultrasound obtained1 week ago at [facility] INTERFACE ENGINEER. Reports IUP with low heart rate at [...] suicidal ideation Major depression in full remission ([facility]) 10/14/2014 Mass of right breast [...] nursing note reviewed. Exam conducted with a sonar technician present. Constitutional: General: She is not in [...] per ultrasound 1 week ago at her INTERFACE ENGINEER office of [facility] in [facility]. Patient is positive for COVID-19 without having any COVID c omplications today. No respiratory distress. No hypoxia. Will discharge home with close INTERFACE ENGINEER follow-up and PCP follow-up. Return precautions to the ED given, patient voices understanding. Amount and/or Complexity of Data Reviewed Labs: ordered. Decision-making details documented in ED Course. Risk OTC drugs. Prescription drug management. Medications - No data to display Clinical Impression Bleeding in early (Primary) There are no discharge medications for this patient. Disposition: Discharge Follow-Up: MARA Orellana-BC [address] [facility] [address] Call in 1 day [facility] [address] [facility] [address] [facility] [address] Call in 1 day SUZETTE LOZANO PA-C 07/12/2022 Suzette Lozano PA-C 07/12/22 5248 Cosigned by Kendall Barajas MD,PHD at 07/13/2022 4:44 AM CDT * Suzette Lozano PA-C - 07/12/2022 7:04 PM CDTSummary: miscarriage concern [place], [place] EMERGENCY DEPARTMENT ENCOUNTER Medical Screening Examination [...] Having SOB, pt was told by her box packer to come into the hospital if this [...] ABO/RH A POSITIVE 07/12/2022 9:26 PM CDT [facility] 07/12/2022 7:50 PM CDT us Suzette Lozano PA-C BLOOD BANK TEST ORDERABLES Final Result [facility] [address] [place] [address], [place] [phone] * URINALYSIS (07/12/2022 7:49 PM CDT) SPECIMEN TYPE URINE CLEAN CATCH 07/12/2022 7:[address] [facility] COLOR (U) LIGHT YELLOW 07/12/2022 8:[address] [facility] TRANSPARENCY TURBID 07/12/2022 8:[address] [facility] SPECIFIC GRAVITY (U) 1.009 1.001 - 1.030 07/12/2022 8:[address] [facility] U PH 5.5 5.0 - 9.0 07/12/2022 8:[address] [facility] LEUKOCYTES (U) NEGATIVE NEGATIVE 07/12/2022 8:[address] [facility] NITRITES NEGATIVE NEGATIVE 07/12/2022 8:[address] [facility] PROTEIN (U) NEGATIVE <30 MG/DL 07/12/2022 8:[address] [facility] URINE GLUCOSE NORMAL NORMAL MG/DL 07/12/2022 8:[address] [facility] KETONES MG/DL (U) NEGATIVE NEGATIVE MG/DL 07/12/2022 8:[address] [facility] UROBILINOGEN NORMAL NORMAL MG/DL 07/12/2022 8:[address] [facility] BILIRUBIN (U) NEGATIVE NEGATIVE MG/DL 07/12/2022 8:[address] [facility] BLOOD (U) NEGATIVE NEGATIVE 07/12/2022 8:[address] [facility] CULTURE & SENSITIVITY INDICATED? CULTURE IS NOT INDICATED 07/12/2022 8:[address] [facility] URINE SPECIMEN OBTAINED BY CLEAN CATCH PROCEDURE / Unknown 07/12/2022 7:49 PM CDT Suzette Lozano PA-C URINE ORDERABLES Final Resu lt [facility] [address] [place] [address], * HCG QUANT (SERUM)-CHORIONIC GONADOTROPIN (07/12/2022 7:06 PM CDT) HCG QUANTITATIVE 53,633 MIU/ML 07/13/19 9:[address] [facility] Comment: WEEKS OF ? REFERENCE [...] Suzette Lozano PA-C LABORATORY Final Resul t [facility] [address] [place] [address], [place] [phone] * LIPASE (07/12/2022 7:06 PM CDT) LIPASE 85 73 - 393 UNITS/L 07/12/2022 8:[address] [facility] 07/12/2022 7:06 PM CDT Suzette Lozano PA-C LABORATORY Final Resul t Performing Organization Address City/[facility]/ZIP Co de Phone Number [facility] [address] [place] [address], [place] [phone] * (ABNORMAL) COMPREHENSIVE METABOLIC PANEL (07/12/2022 7:06 PM CDT) GLUCOSE 87 70 - 99 MG/DL 07/12/2022 8:[address] [facility] BUN 6(L) 7 - 18 MG/DL 07/12/2022 8:[address] [facility] CREATININE S/P/B 0.54(L) 0.55 - 1.02 MG/DL 07/12/2022 8:[address] [facility] SODIUM S/P/B 135(L) 136 - 145 MMOL/L 07/12/2022 8:[address] [facility] POTASSIUM S/P/B 3.4(L) 3.5 - 5.1 MMOL/L 07/12/2022 8:[address] [facility] CHLORIDE S/P/B 104 100 - 108 MMOL/L 07/12/2022 8:[address] [facility] CO2 26.2 21 - 32 MMOL/L 07/12/2022 8:[address] [facility] CALCIUM S/P/B 9.1 8.5 - 10.1 MG/DL 07/12/2022 8:[address] [facility] BILIRUBIN TOTAL S/P/B 0.2 0.2 - 1.2 MG/DL 07/12/2022 8:[address] [facility] Comment: THIS ASSAY IS NOT RECOMMENDED FOR PATIENTS UNDERGOING TREATMENT WITH ELTROMBOPAG DUE TO THE POTENTIAL FOR FALSELY ELEVATED RESULTS. TOTAL PROTEIN S/P/B 8.2 6.4 - 8.2 G/DL 07/12/2022 8:[address] [facility] ALBUMIN S/P/B 4.1 3.4 - 5.0 G/DL 07/12/2022 8:[address] [facility] AST 19 15 - 37 U/L 07/12/2022 8:[address] [facility] ALT 35 14 - 55 U/L 07/12/2022 8:[address] [facility] ALKALINE PHOSPHATASE S/P/B 72 50 - 136 U/L 07/12/2022 8:[address] [facility] ANION GAP 4.8(L) 5 - 15 MMOL/L 07/12/2022 8:[address] [facility] BUN CREATININE RATIO 11.1 6 - 26 07/12/2022 8:[address] [facility] A/G RATIO 1.0 1.0 - 2.0 RATIO 07/12/2022 8:[address] [facility] GFR ESTIMATE >90 >90 ML/MIN/1.7 3 M2 07/12/2022 8:[address] [facility] Comment: NOTE: eGFR is not calculated for patients <18 years of age. This is an estimated GFR calculation using the new CKD EPI creatinine equation without race and so does not require a correction factor for race. This estimated GFR should not be used for calculating drug doses. 07/12/2022 7:06 PM CDT us Suzette Lozano PA-C LABORATORY Final Resul t [facility] [address] [place] [address], [place] [phone] * CBC W/DIFF AUTOMATED (07/12/2022 7:06 PM CDT) WBC 7.8 4.5 - 11.0 x10'3/uL 07/12/2022 8:[address] [facility] RBC 4.59 4.20 - 5.40 x10'6/uL 07/12/2022 8:[address] [facility] HGB 13.3 12.0 - 16.0 G/DL 07/12/2022 8:[address] [facility] HCT 40.7 38.0 - 48.0 % 07/12/2022 8:[address] [facility] MCV 88.7 81.0 - 99.0 FL 07/12/2022 8:[address] [facility] MCH 29.0 27.0 - 31.0 PG 07/12/2022 8:[address] [facility] MCHC 32.7 32.0 - 36.0 G/DL 07/12/2022 8:[address] [facility] RDW 12.4 11.5 - 14.5 % 07/12/2022 8:[address] [facility] PLT 263 130 - 400 x10'3/uL 07/12/2022 8:[address] [facility] MPV 11.0 9.3 - 12.2 FL 07/12/2022 8:[address] [facility] DIFFERENTIAL TYPE AUTOMATED DIFFERENTIAL 07/12/2022 8:[address] [facility] NEUTROPHILS % 60.0 % 07/12/2022 8:[address] [facility] LYMPHOCYTES % 29.0 % 07/12/2022 8:[address] [facility] MONOCYTES % 8.3 % 07/12/2022 8:[address] [facility] EOSINOPHILS 1.9 % 07/12/2022 8:[address] [facility] BASOPHILS 0.3 % 07/12/2022 8:[address] [facility] IMMATURE GRANS % 0.5 % 07/13/19 8:[address] [facility] ABS. NEUTROPHILS TOTAL 4.71 1.80 - 7.70 x10'3/uL 07/12/2022 8:[address] [facility] ABS. LYMPHOCYTES 2.27 1.00 - 4.80 x10'3/uL 07/12/2022 8:[address] [facility] ABS. MONOCYTES 0.65 0.24 - 0.86 x10'3/uL 07/12/2022 8:[address] [facility] ABS. EOSINOPHILS 0.15 0.04 - 0.36 x10'3/uL 07/12/2022 8:[address] [facility] ABS. BASOPHILS 0.02 0.01 - 0.08 x10'3/uL 07/12/2022 8:[address] [facility] ABS. IMMATURE GRANULOCYTES 0.04 0.00 - 0.49 x10'3/uL 07/12/2022 8:[address] [facility] 07/12/2022 7:0 6 PM CDT us Suzette Lozano PA-C LABORATORY Final Resul t [facility] [address] [place] [address], [place] [phone] documented in this encounter Visit Diagnoses Diagnosis Bleeding in early (HHS/HCC)- Primary Unspecified hemorrhage in early , unspecified as to episode of care documented in this encounter Additional Health Concerns Assessment Noted Time PHQ-9 Depression Total Score: 16 10/ 022 10:37 AM CDT documented as of this encounter Care Teams Clarity Specialists Relationship Specialty Start Date End Date La Nena Ferro, SHIFT SUPERINTENDENT-BC PCP - General Nurse Practitioner Family 06/20/22 3 documented as of this encounter
--- OUTSIDE RECORDS SUMMARY | 2024-03-15 18:32 | XMS_ITS | Encounter Summary ---
Author Organization [facility] Address [address] [place] [address]. [place], [place] [address] [place] [address] Care Team Providers Care Biofuels Production Manager Name Role Phone None, Provider MD Primary Care Provider Unavaila ble Reason for Visit * Reason Onset Date Comments Question 04/25/2022 Encounter Details Date Type Department Care Team (Late st Contact Info) Description 04/25/2022 Telephone [facility] Multispecialty Care - [address], [address] [place] [address] Manav Cruz MD [address] [place] [address] Question Social History Tobacco Use Types Packs/Day [...] gave an understanding to the information given CONTROL SERVICE SALES AGENT * Manav Cruz MD - 04/25/2022 3:42 PM CST I have never seen this person before. She has a future appt but is not an established patient. She should go to the ER. CONTROL SERVICE SALES AGENT * Mary Ann Mccormick MA - 04/25/2022 3:26 PM CST Pt states that she has a lot of tingling in arms and feet area. Also her vision has changed , she has experienced blurry and vision. Dizziness and also her sound was going in and out. These symptoms have not started until she was taken off Tegratol. CONTROL SERVICE SALES AGENT * Olivia Huizar - 04/25/2022 3:20 PM CST Pt called today saying that she has seizure like symptoms . Please call to discuss CONTROL SERVICE SALES AGENT documented in this encounter Plan of Treatment Not on file documented as of this encounter Visit Diagnoses Not on filedocumented in this encounter Additional Health Concerns Assessment Noted Time PHQ-9 Depression Total Score: 16 022 10:37 AM CDT documented as of this encounter Care Teams Biofuels Production Manager Relationship Specialty Start Date End Date None, Provider, PCP - General 12/27/21 06/19/22 documented as of this encounter
--- OUTSIDE RECORDS SUMMARY | 2024-03-15 18:32 | XMS_ITS | Encounter Summary ---
Author Organization [facility] Address [address] [place] [address]. [place], [place] [address] [place] [address] Care Team Providers Care Buffing Machine Operator Semiautomatic Name Role Phone None, Provider Primary Care Provider Jacquelin baker Encounter Details Date Type Department Care Team (Late st Contact Info) Description 01/02/2022 MyChart Message Enc [facility] [address] [address] Manav Cruz MD [address] [place] [address] Appointment Social History Tobacco Use Types Packs/Day [...] care of the issue for now. * Stephanie Tamez MA - 01/02/2022 11:40 AM CDTFrom: [...] documented as of this encounter Care Teams Buffing Machine Operator Semiautomatic Relationship Specialty Start Date End Date None, Provider, PCP - General 12/27/21 06/19/22 documented as of this encounter
--- OUTSIDE RECORDS SUMMARY | 2024-03-15 18:34 | XMS_ITS | Encounter Summary ---
Author Organization [facility] Address [address] [place] [address]. [place], [place] [address] [place] [address] Care Team Providers Care Medical Practitioners Name Role Phone None, Provider Primary Care Provider Shana Degroot MD Primary Care Provider [phone] La Nena Ferro [facility] Primary Care Provider Unav ailable None, Provider Primary Care Provider La Nena Landon [facility] Primary Care Provider Unav ailable Miguel Mancuso MD Primary Care Provider [phone] Encounter Details Date Type Department Care Team (Latest Contact Info) Description 01/28/2018 [facility] Nikita Mares MD Social [...] filedocumented in this encounter Care Teams Medical Practitioners Relationship Specialty Start Date End Date None, Provider, PCP - General 06/16/18 07/21/18 Shana Easton MD PCP - General FAMILY PRACTICE 07/22/18 11/29/21 La Nena Ferro SECURITY INCIDENT RESPONSE SPECIALIST-BC PCP - General Nurse Practitioner Family 11/30/21 2 None, MD Gualberto PCP - General 12/27/21 06/19/22 La Nena Ferro, [facility] PCP - General Nurse Practitioner Family 06/20/22 3 Miguel Mancuso MD [address] [place] [address] PCP - General FAMILY PRACTICE 10/12/22 documented as of this encounter
--- OUTSIDE RECORDS SUMMARY | 2024-03-15 18:34 | XMS_ITS | Encounter Summary ---
Author Organization [facility] Address [address] [place] [address]. [place] [address] Care Team Providers Care Science Analyst Name Role Phone Nikita Mares MD Primary Care Provider Unavailable Encounter Details Date Type Department Care Team (Latest Contact Info) Description 03/15/2016 Abstract [facility] Social History Tobacco Use Types [...] on filedocumented in this encounter Care Teams Science Analyst Relationship Specialty Start Date End Date Nikita Mares MD PCP - General 03/13/16 documented as of this encounter"
--- OUTSIDE RECORDS SUMMARY | 2024-03-15 18:34 | XMS_ITS | Encounter Summary ---
Author Organization [facility] Address [address] [place] [address]. [place], [place] [address] [place], [place] [id number] Care Team Providers Care Software Product Manager Name Role Phone Shana Easton MD Primary Care Provider Reason for Visit * Reason Comments Chest Pain Encounter Details Date Type Department Care Team (Late st Contact Info) Description 07/22/2018 10:14 AM CDT - 07/22/2018 2:03 PM CDT Emergency [facility] [place] [address] Titus Jennings PA-C [address] [place], [place] [id number] Chest Pain Discharge Disposition: Home or Self [...] Care Everywhere. * Anxiety Discharge Instructions, Adult (Yoruba) documented in this encounter Medications at Time [...] Jennings PA-C - 07/22/2018 11:19 AM CDT [place], [place] EMERGENCY DEPARTMENT ENCOUNTER Chief Complaint Chief Complaint Patient presents with ??? 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 5 out of 5 advertisement compositor strength, no ataxia, heel to doran intact, [...] ECG [address] [facility] [address] [place] [address] Test Date: 2018-07-22 Pat Name: DIOGENES GARCIA Department: Room: 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 HISTORY: Chest [...] 10 tablet, Refills: 0 Class: Print Pharmacy: [facility] [address] [facility] [address] [facility] (Ph #: [phone]) Disposition: Discharge Follow-Up: Shana Easton MD [address] [address] Go in 1 week FOR RECHECK Iwona Christina, acting as a scribe, am personally taking down the notes in the presence of Dr. Titus Jennings PA-C. Take no action on this note until reviewed and authenticated by the physician. TITUS JENNINGS PA-C 07/22/2018 Titus Jennings PA-C 07/22/18 1350 Cosigned by Asmita Mena MD at 07/22/2018 1:59 PM CDT * Yulia Corral RN - 07/22/2018 10:25 AM CDT Pt states for the last 2 days has had increasing SOB with chest pain. States grandpa 2 months ago and the pt's aunt 1 month ago suddenly * MRAA Gupta - 07/22/2018 10:14 AM CDT [place], [place] EMERGENCY DEPARTMENT ENCOUNTER Medical Screening Examination [...] active cardiopulmonary disease. Mild scoliosis. Matilda Khan [facility] GENERAL IMAGING Final Res ult * POCT urine (07/22/2018 11:20 AM CDT) URINE HCG TEST NEGATIVE NEGATIVE Internal Control performed as Expected? YES Matilda Khan [facility] POINT OF CARE TEST ORDERA BLES Final Result * (ABNORMAL) Urinalysis, Auto, Complete (07/22/2018 11:11 AM CDT) SPECIMEN TYPE URINE CLEAN CATCH 07/22/2018 11:07 AM CDT [facility] COLOR (U) YELLOW 07/22/2018 11:37 AM CDT [facility] TRANSPARENCY CLOUDY 07/22/2018 11:37 AM CDT [facility] SPECIFIC GRAVITY (U) 1.018 1.001 - 1.030 07/22/2018 11:37 AM CDT [facility] U PH 5.0 5.0 - 9.0 07/22/2018 11:37 AM T [facility] LEUKOCYTES (U) MODERATE(A) NEGATIVE 9 11:37 AM CDT [facility] NITRITES NEGATIVE NEGATIVE 07/22/2018 11:37 AM T [facility] PROTEIN (U) NEGATIVE <30 MG/DL 07/22/2018 11:37 AM T [facility] URINE GLUCOSE NEGATIVE NEGATIVE MG/DL 07/22/2018 11:37 AM T [facility] KETONES MG/DL (U) NEGATIVE NEGATIVE MG/DL 07/22/2018 11:37 AM CDT [facility] UROBILINOGEN NEGATIVE NEGATIVE MG/DL 07/22/2018 11:37 AM CDT [facility] BILIRUBIN (U) NEGATIVE NEGATIVE MG/DL 07/22/2018 11:37 AM CDT [facility] BLOOD (U) NEGATIVE NEGATIVE 07/22/2018 11:37 AM CDT [facility] CULTURE & SENSITIVITY INDICATED? SPECIMEN SETUP FOR CULTURE 07/22/2018 11:37 AM CDT [facility] SQUAMOUS EPITHELIALS MANY /LPF 07/22/2018 11:37 AM CDT [facility] MUCUS MODERATE /LPF 07/22/2018 11:37 AM CDT [facility] WBC/HPF 8(H) <6 /HPF 07/22/2018 11:37 AM CDT [facility] RBC/HPF <1 <6 /HPF 07/22/2018 11:37 AM CDT [facility] URINE SPECIMEN OBTAINED BY CLEAN CATCH PROCEDURE / Unknown 07/22/2018 11:11 AM CDT Matilda Khan [facility] URINE ORDERABLES Final Re sult [facility] [address] [place] [address], [place] [phone] * CULTURE URINE (07/22/2018 11:10 AM CDT) SPEC DESCRIPTION URINE CLEAN CATCH 07/22/2018 11:38 AM CDT [facility] SPECIAL REQUESTS NO SPECIAL REQUEST 07/22/2018 11:38 AM CDT [facility] CULTURE RESULT POLYMICROBIAL GROWTH CONSISTENT WITH NORMAL GENITAL JANETH. ?? SUSCEPTIBILITIES NOT ROUTINELY PERFORMED. 07/23/2018 12:00 PM CDT [facility] URINE SPECIMEN OBTAINED BY CLEAN CATCH PROCEDURE / Unknown 07/22/2018 11:10 AM CDT 07/22/2018 11:37 AM CDT Titus Jennings PA-C MICROBIOLOGY - GENERAL ORDERA BLES Final Result [facility] [address] [place] [address], * ECG 12 lead (07/22/2018 10:17 AM CDT) 07/22/2018 10:1 7 AM CDT Narrative [facility] ([place] - 07/23/2018 9:55 PM CDT ?[facility] ? [address] [facility] [place] ? Test Date: ?2018-07-22 Pat Name: ? DIOGENES FORT ?Department: ? Room: ? EXAM16 Gender: ? Female ? Masonry Installer: ?? [facility] : ?2000 ? Requested By: MATILDA KHAN Order Number: [id number] ? Reading : ?? Robert Jamil ? Measurements Intervals ?Rhome ? Rate: ? 76 ? P: ?70 DC: ? 142 ?QRS: ?85 QRSD: ? 79 ? T: ?26 QT: ? 364 ? QTc: ?410 ? Interpretive Statements SINUS RHYTHM NONSPECIFIC T-WAVE ABNORMALITY Compared to ECG 04/10/2011 18:14:55 T-wave abnormality now present Procedure Note Robert Jamil MD - 07/23/2018 [facility] [address] [place] Test Date: 2018-07-22 Pat Name: DIOGENES GARCIA Department: Room: [facility] Gender: Female Masonry Installer: [facility] : 2000 Requested By: MATILDA KHAN Order Number: [id number] Reading MD: Robert Jamil Measurements Intervals Rhome Rate: 76 P: 70 DC: 142 QRS: 85 QRSD: 79 T: 26 QT: 364 QTc: 410 Interpretive Statements SINUS RHYTHM NONSPECIFIC T-WAVE ABNORMALITY Compared to ECG 04/10/2011 18:14:55 T-wave abnormality now present Matilda Khan [facility] ECG ORDERABLES Final Res ult Performing Organization Address City/[facility]/ZIP Co de Phone Number [facility] * TROPONIN, QUANT (07/22/2018 10:17 AM CDT) Pathologist [facility] TROPONIN I <0.015 <0.045 ng/mL. 07/22/2018 11:02 AM CDT [facility] Comment: HIGH DOSES OF BIOTIN MAY INTERFERE WITH THIS TEST RESULT. CORRELATION TO CLINICAL HISTORY AND PRESENTATION RECOMMENDED. 07/22/2018 10:1 7 AM CDT Matilda Khan [facility] Final Res ult Performing Organization Address [facility] Co de Phone Number [facility] [address] [place] [address], [place] [phone] * D-DIMER, QUANTITATIVE (07/22/2018 10:17 AM CDT) D-DIMER <150 0 - 230 D DU ng/mL 07/22/2018 10:58 AM CDT [facility] Comment: TESTING PERFORMED ON [employer] TOP 300 ANALYZER. NOTE: RESULTS OF THIS [...] 07/22/2018 10:1 7 AM CDT Matilda Khan ELECTRODYNAMICIST LABORATORY Final Res ult [facility] [address] [place] [address], * (ABNORMAL) COMPREHENSIVE METABOLIC PANEL (07/22/2018 10:17 AM CDT) GLUCOSE 103(H) 70 - 99 MG/DL 07/22/2018 11:02 AM CDT [facility] BUN 9 7 - 18 MG/DL 07/22/2018 11:02 AM CDT [facility] CREATININE S/P/B 0.72 0.55 - 1.02 MG/DL 07/22/2018 11:02 AM CDT [facility] SODIUM S/P/B 141 136 - 145 MMOL/L 07/22/2018 11:02 AM CDT [facility] POTASSIUM S/P/B 3.9 3.5 - 5.1 MMOL/L 07/22/2018 11:02 AM CDT [facility] CHLORIDE S/P/B 110(H) 100 - 108 MMOL/L 07/22/2018 11:02 AM CDT [facility] CO2 26.4 21 - 32 MMOL/L 07/22/2018 11:02 AM CDT [facility] CALCIUM S/P/B 9.7 8.5 - 10.1 MG/DL 07/22/2018 11:02 AM CDT [facility] BILIRUBIN TOTAL S/P/B 0.4 0.2 - 1.1 MG/DL 07/22/2018 11:02 AM CDT [facility] TOTAL PROTEIN S/P/B 8.0 6.4 - 8.2 G/DL 07/22/2018 11:02 AM T [facility] ALBUMIN S/P/B 4.7 3.4 - 5.0 G/DL 07/22/2018 11:02 AM T [facility] AST 10(L) 15 - 37 U/L 07/22/2018 11:02 AM T [facility] ALT 23 14 - 55 U/L 07/22/2018 11:02 AM [facility] ALKALINE PHOSPHATASE S/P/B 70 50 - 136 U/L 07/22/2018 11:02 AM [facility] ANION GAP 8.5 8 - 20 MMOL/L 07/22/2018 11:02 AM [facility] BUN CREATININE RATIO 12.6 6 - 26 07/22/2018 11:02 AM [facility] A/G RATIO 1.4 1.0 - 2.0 RATIO 07/22/2018 11:02 AM [facility] EGFR NON-AFR. AMER. >90 >90 ML/MIN/1.7 3 M2 07/22/2018 11:02 AM [facility] EGFR AFR. AMER. >90 >90 ML/MIN/1.7 3 M2 07/22/2018 11:02 AM [facility] Comment: NOTE: eGFR is not calculated for patients <18 years of age. This is an estimated GFR (CKD EPI) and should not be used for calculating drug doses. 07/22/2018 10:1 7 AM CDT us Matilda Khan ELECTRODYNAMICIST LABORATORY Final Res ult [facility] [address] [place] [address], * (ABNORMAL) CBC W/DIFF AUTOMATED (07/22/2018 10:17 AM CDT) [facility] WBC 6.0 4.5 - 13.0 x10'3/uL 07/22/2018 10:36 AM CDT [facility] RBC 5.03 4.20 - 5.40 x10'6/uL 07/22/2018 10:36 AM CDT [facility] HGB 14.0 12.0 - 16.0 G/DL 07/22/2018 10:36 AM CDT [facility] HCT 43.9 38.0 - 48.0 % 07/22/2018 10:36 AM CDT [facility] MCV 87.3 81.0 - 99.0 FL 07/22/2018 10:36 AM CDT [facility] MCH 27.8 27.0 - 31.0 PG 07/22/2018 10:36 AM CDT [facility] MCHC 31.9(L) 32.0 - 36.0 G/DL 07/22/2018 10:36 AM CDT [facility] RDW 13.1 11.5 - 14.5 % 07/22/2018 10:36 AM CDT [facility] PLT 281 130 - 400 x10'3/uL 07/22/2018 10:36 AM CDT [facility] MPV 10.7 9.3 - 12.2 FL 07/22/2018 10:36 AM CDT [facility] DIFFERENTIAL TYPE AUTOMATED DIFFERENTIAL 07/22/2018 10:36 AM CDT [facility] NEUTROPHILS % 52.1 % 07/22/2018 10:36 AM CDT [facility] LYMPHOCYTES % 36.7 % 07/22/2018 10:36 AM CDT [facility] MONOCYTES % 7.5 % 07/22/2018 10:36 AM CDT [facility] EOSINOPHILS 2.7 % 07/22/2018 10:36 AM CDT [facility] BASOPHILS 0.7 % 07/22/2018 10:36 AM CDT [facility] IMMATURE GRANS % 0.3 % 07/23/19 19 10:36 AM CDT [facility] ABS. NEUTROPHILS TOTAL 3.15 1.80 - 8.00 x10'3/uL 07/22/2018 10:36 AM CDT [facility] ABS. LYMPHOCYTES 2.21 1.20 - 5.20 x10'3/uL 07/22/2018 10:36 AM CDT [facility] ABS. MONOCYTES 0.45 0.24 - 0.86 x10'3/uL 07/22/2018 10:36 AM CDT [facility] ABS. EOSINOPHILS 0.16 0.04 - 0.36 x10'3/uL 07/22/2018 10:36 AM CDT [facility] ABS. BASOPHILS 0.04 0.01 - 0.08 x10'3/uL 07/22/2018 10:36 AM CDT [facility] ABS. IMMATURE GRANULOCYTES 0.02 0.00 - 0.49 x10'3/uL 07/22/2018 10:36 AM CDT [facility] 07/22/2018 10:1 7 AM CDT us Matilda Khan [facility] Final Res ult [facility] [address] [place] [address], [place] [phone] documented in this encounter Visit Diagnoses Diagnosis [...] RN) documented in this encounter Care Teams Software Product Manager Relationship Specialty Start Date End Date Shana Easton MD PCP - General FAMILY PRACTICE 07/22/18 11/29/21 documented as of this encounter
--- OUTSIDE RECORDS SUMMARY | 2024-03-15 18:34 | XMS_ITS | Encounter Summary ---
Author Organization [facility] System Address [address] [place] [address]. [place], [place] [address] [place], [place] [id number] Care Team Providers Care Food Safety Director Name Role Phone None, Provider Primary Care Provider Unavaila ble Reason for Referral * Imaging (Emergency) - Closed Specialty Diagnoses / Procedures Referred By Dora t Referred To Contact Procedures CT ABD+PEL W IV CON ONLY Christine Sofia TRANSPORT TANK TECHNICIAN Phone: tel: fax: Referral ID Status Reason Start Date Expiration Date Visits Re quested Visits Authorized [id number] Closed 06/16/2018 07/18/2019 1 1 Reason for Visit * Reason Comments Abdominal Pain Urinary Symptoms Encounter Details Date Type Department Care Team (Late st Contact Info) Description 06/16/2018 5:24 PM CDT - 06/16/2018 9:35 PM CDT Emergency [facility] [place] [address] Christine Sofia NP [address] [id number] Abdominal Pain; Urinary Symptoms Discharge Disposition: Home [...] Care Everywhere. * Kidney Infection Discharge Instructions (Tunisian) documented in this encounter Medications at Time [...] CLEAN CATCH COLOR STRAW TRANSPARENCY CLEAR Specific Poston (U) 1.005 1.001 - 1.030 U PH [...] IV CON ONLY Final Result by User, [email or web address] (06/17 2103) EXAM: CT ABD+PEL W CON [...] Sat06/16/2018, Until Sat06/26/2018, Eprescribe Class: Eprescribe Pharmacy: [facility] [address] [place] [address] [address] & [facility] (Ph #: [phone]) sulfamethoxazole-trimethoprim (BACTRIM DS) 800-160 MG tablet Take 1 tablet by mouth 2 (two) times daily for 10 days., Starting Sat06/16/2018, Until Sat06/26/2018, Eprescribe Class: Eprescribe Pharmacy: [facility] [address] [place] [address] [address] [facility] (Ph #: [phone]) I have discussed today's findings with the [...] Discharge Follow-Up: Fabio Arita MD [address] [address] As needed BRENDA MANRIQUEZ 06/17/2018 BRENDA Manriquez 06/17/18 0105 Cosigned by Mumtaz Benoit MD at 06/17/2018 10:07 AM CDT * Jaylin Curran NP - 06/16/2018 5:23 PM CDT [place], [place] EMERGENCY DEPARTMENT ENCOUNTER Medical Screening Examination [...] initiate pt care. Jaylin Curran NP 06/16/18 2360 Cosigned by Mumtaz Benoit MD at 06/17/2018 [...] - 393 UNITS/L 06/16/2018 6:22 PM CDT [facility] 06/16/2018 5:45 PM CDT us Jaylin Mcintosh Bina TRANSPORT TANK TECHNICIAN LABORATORY Final Resu lt [facility] [address] [place] [address], [place] [phone] * (ABNORMAL) COMPREHENSIVE METABOLIC PANEL (06/16/2018 5:45 PM CDT) [facility] GLUCOSE 88 70 - 99 MG/DL 06/16/2018 6:22 PM CDT [facility] BUN 6(L) 7 - 18 MG/DL 06/16/2018 6:22 PM CDT [facility] CREATININE S/P/B 0.55 0.55 - 1.02 MG/DL 06/16/2018 6:22 PM CDT [facility] SODIUM S/P/B 140 136 - 145 MMOL/L 06/16/2018 6:22 PM CDT [facility] POTASSIUM S/P/B 4.1 3.5 - 5.1 MMOL/L 06/16/2018 6:22 PM CDT [facility] CHLORIDE S/P/B 107 100 - 108 MMOL/L 06/16/2018 6:22 PM CDT [facility] CO2 27.3 21 - 32 MMOL/L 06/16/2018 6:22 PM CDT [facility] CALCIUM S/P/B 8.9 8.5 - 10.1 MG/DL 06/16/2018 6:22 PM CDT [facility] BILIRUBIN TOTAL S/P/B 0.2 0.2 - 1.1 MG/DL 06/16/2018 6:22 PM CDT [facility] TOTAL PROTEIN S/P/B 7.5 6.4 - 8.2 G/DL 06/16/2018 6:22 PM CDT [facility] ALBUMIN S/P/B 4.1 3.4 - 5.0 G/DL 06/16/2018 6:22 PM CDT [facility] AST 11(L) 15 - 37 U/L 06/16/2018 6:22 PM CDT [facility] ALT 21 14 - 55 U/L 06/16/2018 6:22 PM CDT [facility] ALKALINE PHOSPHATASE S/P/B 82 50 - 136 U/L 06/16/2018 6:22 PM CDT [facility] ANION GAP 9.8 8 - 20 MMOL/L 06/16/2018 6:22 PM CDT [facility] BUN CREATININE RATIO 10.9 6 - 26 06/16/2018 6:22 PM CDT [facility] A/G RATIO 1.2 1.0 - 2.0 RATIO 06/16/2018 6:22 PM CDT [facility] EGFR NON-AFR. AMER. >90 >90 ML/MIN/1.7 3 M2 06/16/2018 6:22 PM CDT [facility] EGFR AFR. AMER. >90 >90 ML/MIN/1.7 3 M2 06/16/2018 6:22 PM CDT [facility] Comment: NOTE: eGFR is not calculated for patients <18 years of age. This is an estimated GFR (CKD EPI) and should not be used for calculating drug doses. 06/16/2018 5:45 PM CDT us Jaylin Curran NP LABORATORY Final Resu lt [facility] [address] [place] [address], [place] [phone] * (ABNORMAL) CBC W/DIFF AUTOMATED (06/16/2018 5:45 PM CDT) [facility] Signature WBC 7.8 4.5 - 13.0 x10'3/uL 06/16/2018 5:57 PM CDT [facility] RBC 4.47 4.20 - 5.40 x10'6/uL 06/16/2018 5:57 PM CDT [facility] HGB 12.3 12.0 - 16.0 G/DL 06/16/2018 5:57 PM CDT [facility] HCT 39.2 38.0 - 48.0 % 06/16/2018 5:57 PM CDT [facility] MCV 87.7 81.0 - 99.0 FL 06/16/2018 5:57 PM CDT [facility] MCH 27.5 27.0 - 31.0 PG 06/16/2018 5:57 PM CDT [facility] MCHC 31.4(L) 32.0 - 36.0 G/DL 06/16/2018 5:57 PM CDT [facility] RDW 13.5 11.5 - 14.5 % 06/16/2018 5:57 PM CDT [facility] PLT 276 130 - 400 x10'3/uL 06/16/2018 5:57 PM CDT [facility] MPV 10.9 9.3 - 12.2 FL 06/16/2018 5:57 PM CDT [facility] DIFFERENTIAL TYPE AUTOMATED DIFFERENTIAL 06/16/2018 5:57 PM CDT [facility] NEUTROPHILS % 68.1 % 06/16/2018 5:57 PM CDT [facility] LYMPHOCYTES % 23.8 % 06/16/2018 5:57 PM CDT [facility] MONOCYTES % 6.1 % 06/16/2018 5:57 PM CDT [facility] EOSINOPHILS 1.3 % 06/16/2018 5:57 PM CDT [facility] BASOPHILS 0.4 % 06/16/2018 5:57 PM CDT [facility] IMMATURE GRANS % 0.3(H) 0 % 06/17/19 19 5:57 PM CDT [facility] ABS. NEUTROPHILS TOTAL 5.34 1.80 - 8.00 x10'3/uL 06/16/2018 5:57 PM CDT [facility] ABS. LYMPHOCYTES 1.86 1.20 - 5.20 x10'3/uL 06/16/2018 5:57 PM CDT [facility] ABS. MONOCYTES 0.48 0.24 - 0.86 x10'3/uL 06/16/2018 5:57 PM CDT [facility] ABS. EOSINOPHILS 0.10 0.04 - 0.36 x10'3/uL 06/16/2018 5:57 PM CDT [facility] ABS. BASOPHILS 0.03 0.01 - 0.08 x10'3/uL 06/16/2018 5:57 PM CDT [facility] ABS. IMMATURE GRANULOCYTES 0.02 0.00 - 0.03 x10'3/uL 06/16/2018 5:57 PM CDT [facility] 06/16/2018 5:45 PM CDT us Jaylin Curran NP LABORATORY Final Resu lt [facility] [address] [place] [address], [place] [phone] * POCT urine (06/16/2018 5:41 PM CDT) URINE HCG TEST NEGATIVE NEGATIVE Internal Control performed as Expected? VALID Comment:[id number] EXP 10-22 Jaylin Mcintosh Curran TRANSPORT TANK TECHNICIAN POINT OF CARE TEST ORDERAB LES Final Result * URINALYSIS (06/16/2018 5:40 PM CDT) SPECIMEN TYPE URINE CLEAN CATCH 06/16/2018 5:37 PM CDT [facility] COLOR (U) STRAW 06/16/2018 5:51 PM CDT [facility] TRANSPARENCY CLEAR 06/16/2018 5:51 PM CDT [facility] SPECIFIC GRAVITY (U) 1.005 1.001 - 1.030 06/16/2018 5:51 PM CDT [facility] U PH 8.0 5.0 - 9.0 06/16/2018 5:51 PM CDT [facility] LEUKOCYTES (U) NEGATIVE NEGATIVE 06/16/2018 5:51 PM CDT [facility] NITRITES NEGATIVE NEGATIVE 06/16/2018 5:51 PM CDT [facility] PROTEIN (U) NEGATIVE <30 MG/DL 06/16/2018 5:51 PM CDT [facility] URINE GLUCOSE NEGATIVE NEGATIVE MG/DL 06/16/2018 5:51 PM CDT [facility] KETONES MG/DL (U) NEGATIVE NEGATIVE MG/DL 06/16/2018 5:51 PM CDT [facility] UROBILINOGEN NEGATIVE NEGATIVE MG/DL 06/16/2018 5:51 PM CDT [facility] BILIRUBIN (U) NEGATIVE NEGATIVE MG/DL 06/16/2018 5:51 PM CDT [facility] BLOOD (U) NEGATIVE NEGATIVE 06/16/2018 5:51 PM CDT [facility] CULTURE & SENSITIVITY INDICATED? CULTURE IS NOT INDICATED 06/16/2018 5:51 PM T [facility] URINE SPECIMEN OBTAINED BY CLEAN CATCH PROCEDURE / Unknown 06/16/2018 5:40 PM CDT Jaylin Mcintosh Curran TRANSPORT TANK TECHNICIAN URINE ORDERABLES Final Res ult [facility] [address] [place] [address], [place] [phone] documented in this encounter Visit Diagnoses Diagnosis [...] RTR) documented in this encounter Care Teams Food Safety Director Relationship Specialty Start Date End Date None, Provider, PCP - General 06/16/18 07/21/18 documented as of this encounter
--- OUTSIDE RECORDS SUMMARY | 2024-03-15 18:34 | XMS_ITS | Encounter Summary ---
Author Organization [facility] Address [address] [place] [address]. [place], [place] [phone] [place] [address] Care Team Providers Care Food Beverage Server Name Role Phone Nikita Mares MD Primary Care Provider Zachery Angel MD Primary Care Provider Zachery Toth MD Primary Care Provider Zachery Toth MD Primary Care Provider Jacquelin baker Encounter Details Date Type Department Care Team (Late st Contact Info) Description 10/14/2014 Abstract [facility] - [place] [address] [place] [address] Zachery Ryan MD [address] [place] [address] Social History Tobacco Use Types Packs/Day Years [...] TSH W Reflex Free T4; Status:Active; Requested for:[id number]; Perform:[facility]; Order Comments:Copy to Dr. ROSY Valenzuela MD, [facility], Psychiastry ( ); Due:[id number];Ordered; For:Major depression in full remission, Weight loss, [...] Menorrhagia; RENEE = N; Verified Transmission to [facility] 89947; Last Updated By: System [email or web address]; 10/14/2014 1:44:44 PM Discussion/Summary 1. Weight loss [...] Zachery Ryan M.D.; Oct 16 2014 6:01PM MAINFRAME CONSULTANT (Author) documented in this encounter Plan of Treatment Not on file documented as of this encounter Visit Diagnoses Not on filedocumented in this encounter Care Teams Food Beverage Server Relationship Specialty Start Date End Date Nikita Mares MD PCP - General 03/13/16 Zachery Ryan MD PCP - General 10/26/15 03/12/16 Zachery Ryan MD PCP - General 10/18/15 10/25/15 Zachery Ryan MD PCP - General 11/09/13 10/17/15 documented as of this encounter
--- OUTSIDE RECORDS SUMMARY | 2024-03-15 18:34 | XMS_ITS | Encounter Summary ---
Author Organization [facility] Address [address] [place] [address]. [place], [place] [address] [place] [address] Care Team Providers Care Hospitalist Medical Director Name Role Phone Nikita Goodwin MD Primary Care Provider Unavailable Zachery Ryan MD Primary Care Provider Unavailpio baker Encounter Details Date Type Department Care Team (Late st Contact Info) Description 10/26/2015 Abstract [facility] [address] [place], [place] [id number] Rola Rojas, ADJUSTER ARBITRATOR [address] [facility] [facility] [address] [place], [place] [id number] Social History Tobacco Use Types Packs/Day Years [...] SPEC DESCRIPTION CERVIX 10/26/2015 8:27 PM CDT [facility] SPECIAL REQUESTS NO SPECIAL REQUEST 10/26/2015 8:27 PM CDT [facility] DIRECT EXAM NO YEAST OR FUNGAL ELEMENTS SEEN 10/26/2015 8:31 PM CDT [facility] DIRECT EXAM NO MOTILE TRICHOMONAS SEEN 10/26/2015 8:31 PM CDT [facility] DIRECT EXAM CLUE CELLS SEEN 10/26/19 16 8:31 PM CDT [facility] DIRECT EXAM TESTING PERFORMED AT [address] [id number] MALICK RAMOS M.D., HVAC REFRIGERATION TECHNICIAN 10/26/2015 8:31 PM CDT [facility] SPECIMEN FROM UTERINE CERVIX / Unknown 10/26/2015 8:25 PM CDT 10/26/2015 8:28 PM CDT us Generic Conversion Md GOODWIN MICROBIOLOGY - GENERAL ORDERABLES Final Result [facility] [address] [place] [address], * (ABNORMAL) URINALYSIS AUTO DIP (10/26/2015 8:19 PM CDT) SOURCE (FLUID) URINE CLEAN CATCH 10/26/2015 8:27 PM CDT [facility] COLOR (U) YELLOW 10/26/2015 8:34 PM CDT [facility] Comment: TESTING PERFORMED AT [address] ??[id number] MALICK RAMOS M.D., HVAC REFRIGERATION TECHNICIAN TRANSPARENCY CLOUDY 10/26/2015 8:34 PM CDT [facility] SPECIFIC GRAVITY (U) 1.030 1.001 - 1.030 10/26/2015 8:34 PM CDT [facility] U PH 5.5 5.0 - 9.0 10/26/2015 8:34 PM CDT [facility] LEUKOCYTES (U) NEGATIVE NEGATIVE 10/26/2015 8:34 PM CDT [facility] NITRITES NEGATIVE NEGATIVE 10/26/2015 8:34 PM CDT [facility] PROTEIN (U) NEGATIVE <30 MG/DL 10/26/2015 8:34 PM CDT [facility] URINE GLUCOSE NEGATIVE NEGATIVE MG/DL 10/26/2015 8:34 PM CDT [facility] KETONES MG/DL (U) TRACE(A) NEGATIVE MG/DL 10/26/2015 8:34 PM CDT [facility] UROBILINOGEN NEGATIVE NEGATIVE MG/DL 10/26/2015 8:34 PM CDT [facility] BILIRUBIN (U) NEGATIVE NEGATIVE MG/DL 10/26/2015 8:34 PM CDT [facility] BLOOD (U) MODERATE(A) NEGATIVE 10/26/2015 8:34 PM CDT [facility] CULTURE & SENSITIVITY INDICATED? CULTURE IS NOT INDICATED 10/26/2015 8:34 PM CDT [facility] 10/26/2015 8:19 PM CDT 10/26/2015 8:29 PM CDT us Generic Conversion Md GOODWIN URINE ORDERABLES Final Result [facility] [address] [place] [address], [place] [phone] documented in this encounter Visit Diagnoses Diagnosis Other specified noninflammatory disorders of vagina documented in this encounter Care Teams Hospitalist Medical Director Relationship Specialty Start Date End Date Nikita Goodwin MD PCP - General 03/13/16 Zachery Ryan MD PCP - General 10/26/15 03/12/16 documented as of this encounter
--- OUTSIDE RECORDS SUMMARY | 2024-03-15 18:34 | XMS_ITS | Encounter Summary ---
Author Organization [facility] Address [address] [place] [address]. [place] [address] Care Team Providers Care Senior Quality Assurance Specialist Name Role Phone Nikita Mares MD Primary Care Provider Unavailable Zachery Ryan MD Primary Care Provider Unavaila samuel Encounter Details Date Type Department Care Team (Latest Contact Info) Description 02/14/2016 Abstract [facility] Social History Tobacco Use [...] filedocumented in this encounter Care Teams Senior Quality Assurance Specialist Relationship Specialty Start Date End Date Nikita Mares MD PCP - General 03/13/16 Zachery Ryan MD PCP - General 10/26/15 03/12/16 documented as of this encounter
--- OUTSIDE RECORDS SUMMARY | 2024-03-15 18:34 | XMS_ITS | Encounter Summary ---
Author Organization [facility] Address [address] [place] [address]. [place], [place] [address] [place] [address] Care Team Providers Care Adobe Layer Name Role Phone Lorin Casillas MD Primary Care Provider [phone] Reason for Visit * Reason Comments Vomiting Encounter Details Date Type Department Care Team ([facility] Contact Info) Description 09/27/2018 2:41 PM CDT - 09/27/2018 5:04 PM CDT Emergency [facility] [place] [address] Vomiting Discharge Disposition: Home or Self Care [...] * Nausea and Vomiting Discharge Instructions, Adult (Burmese) documented in this encounter Medications at Time [...] MEME Melo - 09/27/2018 3:44 PM CDT [place] EMERGENCY DEPARTMENT ENCOUNTER HISTORICAL INFORMATION Primary [...] file Gets together: Not on file Attends oriental orthodox service: Not on file Active member of [...] NEGATIVE INT CTRL PERFORMED EXPECTED? yes lot [id number] exp 10-23-2019 RADIOLOGY No orders to display [...] and validated. Please refer to the exit development writer discharge instructions for details surrounding the discharge [...] Internal Control performed as Expected? yes lot [id number] exp 10-23-2019 us [facility] POINT OF CARE TEST ORDERAB LES Final Result * (ABNORMAL) URINALYSIS WI REFLEX TO CULTURE (09/27/2018 3:24 PM CDT) SPECIMEN TYPE URINE CLEAN CATCH 09/27/2018 3:14 PM CDT [facility] COLOR (U) YELLOW 09/27/2018 4:09 PM T [facility] TRANSPARENCY CLOUDY 09/27/2018 4:09 PM T [facility] SPECIFIC GRAVITY (U) 1.015 1.001 - 1.030 09/27/2018 4:09 PM T [facility] U PH 5.0 5.0 - 9.0 09/27/2018 4:09 PM T [facility] LEUKOCYTES (U) NEGATIVE NEGATIVE 09/27/2018 4:09 PM T [facility] NITRITES NEGATIVE NEGATIVE 09/27/2018 4:09 PM T [facility] PROTEIN (U) NEGATIVE <30 MG/DL 09/27/2018 4:09 PM T [facility] URINE GLUCOSE NEGATIVE NEGATIVE MG/DL 09/27/2018 4:09 PM T [facility] KETONES MG/DL (U) NEGATIVE NEGATIVE MG/DL 09/27/2018 4:09 PM T [facility] UROBILINOGEN NEGATIVE NEGATIVE MG/DL 09/27/2018 4:09 PM T [facility] BILIRUBIN (U) NEGATIVE NEGATIVE MG/DL 09/27/2018 4:09 PM T [facility] BLOOD (U) LARGE(A) NEGATIVE 09/27/2018 4:09 PM T [facility] CULTURE & SENSITIVITY INDICATED? CULTURE IS NOT INDICATED 09/27/2018 4:09 PM T [facility] SQUAMOUS EPITHELIALS MODERATE /LPF 09/27/2018 4:09 PM T [facility] MUCUS MANY /LPF 09/27/2018 4:09 PM T [facility] WBC/HPF 2 <6 /HPF 09/27/2018 4:09 PM CDT [facility] RBC/HPF 2 <6 /HPF 09/27/2018 4:09 PM CDT [facility] URINE SPECIMEN OBTAINED BY CLEAN CATCH PROCEDURE / Unknown 09/27/2018 3:24 PM CDT us Tanner [facility] URINE ORDERABLES Final Res ult [facility] [address] [place] [address], [place] [phone] * (ABNORMAL) COMPREHENSIVE METABOLIC PANEL (09/27/2018 3:24 PM CDT) GLUCOSE 87 70 - 99 MG/DL 09/27/2018 4:09 PM CDT [facility] BUN 6(L) 7 - 18 MG/DL 09/27/2018 4:09 PM CDT [facility] CREATININE S/P/B 0.66 0.55 - 1.02 MG/DL 09/27/2018 4:09 PM CDT [facility] SODIUM S/P/B 139 136 - 145 MMOL/L 09/27/2018 4:09 PM CDT [facility] POTASSIUM S/P/B 3.6 3.5 - 5.1 MMOL/L 09/27/2018 4:09 PM CDT [facility] CHLORIDE S/P/B 107 100 - 108 MMOL/L 09/27/2018 4:09 PM CDT [facility] CO2 27.5 21 - 32 MMOL/L 09/27/2018 4:09 PM CDT [facility] CALCIUM S/P/B 9.4 8.5 - 10.1 MG/DL 09/27/2018 4:09 PM CDT [facility] BILIRUBIN TOTAL S/P/B 0.6 0.2 - 1.1 MG/DL 09/27/2018 4:09 PM CDT [facility] TOTAL PROTEIN S/P/B 7.7 6.4 - 8.2 G/DL 09/27/2018 4:09 PM CDT [facility] ALBUMIN S/P/B 4.5 3.4 - 5.0 G/DL 09/27/2018 4:09 PM CDT [facility] AST 13(L) 15 - 37 U/L 09/27/2018 4:09 PM CDT [facility] ALT 27 14 - 55 U/L 09/27/2018 4:09 PM T [facility] ALKALINE PHOSPHATASE S/P/B 76 50 - 136 U/L 09/27/2018 4:09 PM T [facility] ANION GAP 4.5(L) 5 - 15 MMOL/L 09/27/2018 4:09 PM T [facility] BUN CREATININE RATIO 9.2 6 - 26 09/27/2018 4:09 PM T [facility] A/G RATIO 1.4 1.0 - 2.0 RATIO 09/27/2018 4:09 PM T [facility] EGFR NON-AFR. AMER. >90 >90 ML/MIN/1.7 3 M2 09/27/2018 4:09 PM T [facility] EGFR AFR. AMER. >90 >90 ML/MIN/1.7 3 M2 09/27/2018 4:09 PM T [facility] Comment: NOTE: eGFR is not calculated for patients <18 years of age. This is an estimated GFR (CKD EPI) and should not be used for calculating drug doses. 09/27/2018 3:24 PM CDT us Tanner [facility] LAB[facility]AT[facility] Final Resu lt [facility] [address] [place] [address], * CBC W/DIFF AUTOMATED (09/27/2018 3:24 PM CDT) [facility] WBC 7.7 4.5 - 13.0 x10'3/uL 09/27/2018 3:56 PM CDT [facility] RBC 4.52 4.20 - 5.40 x10'6/uL 09/27/2018 3:56 PM CDT [facility] HGB 13.0 12.0 - 16.0 G/DL 09/27/2018 3:56 PM CDT [facility] HCT 39.4 38.0 - 48.0 % 09/27/2018 3:56 PM CDT [facility] MCV 87.2 81.0 - 99.0 FL 09/27/2018 3:56 PM CDT [facility] MCH 28.8 27.0 - 31.0 PG 09/27/2018 3:56 PM CDT [facility] MCHC 33.0 32.0 - 36.0 G/DL 09/27/2018 3:56 PM CDT [facility] RDW 12.7 11.5 - 14.5 % 09/27/2018 3:56 PM CDT [facility] PLT 234 130 - 400 x10'3/uL 09/27/2018 3:56 PM CDT [facility] MPV 11.0 9.3 - 12.2 FL 09/27/2018 3:56 PM CDT [facility] DIFFERENTIAL TYPE AUTOMATED DIFFERENTIAL 09/27/2018 3:56 PM CDT [facility] NEUTROPHILS % 76.1 % 09/27/2018 3:56 PM CDT [facility] LYMPHOCYTES % 15.5 % 09/27/2018 3:56 PM CDT [facility] MONOCYTES % 7.2 % 09/27/2018 3:56 PM CDT [facility] EOSINOPHILS 0.6 % 09/27/2018 3:56 PM CDT [facility] BASOPHILS 0.3 % 09/27/2018 3:56 PM CDT [facility] IMMATURE GRANS % 0.3 % 09/28/19 19 3:56 PM CDT [facility] ABS. NEUTROPHILS TOTAL 5.89 1.80 - 8.00 x10'3/uL 09/27/2018 3:56 PM CDT [facility] ABS. LYMPHOCYTES 1.20 1.20 - 5.20 x10'3/uL 09/27/2018 3:56 PM CDT [facility] ABS. MONOCYTES 0.56 0.24 - 0.86 x10'3/uL 09/27/2018 3:56 PM CDT [facility] ABS. EOSINOPHILS 0.05 0.04 - 0.36 x10'3/uL 09/27/2018 3:56 PM CDT [facility] ABS. BASOPHILS 0.02 0.01 - 0.08 x10'3/uL 09/27/2018 3:56 PM CDT [facility] ABS. IMMATURE GRANULOCYTES 0.02 0.00 - 0.49 x10'3/uL 09/27/2018 3:56 PM CDT [facility] 09/27/2018 3:24 PM CDT [facility] Final Resu lt [facility] [address] [place] [address], documented in this encounter Visit Diagnoses Diagnosis [...] RN) documented in this encounter Care Teams Adobe Layer Relationship Specialty Start Date End Date Lorin Casillas MD PCP - General FAMILY PRACTICE 07/22/18 11/29/21 documented as of this encounter
--- OUTSIDE RECORDS SUMMARY | 2024-03-15 18:34 | XMS_ITS | Encounter Summary ---
Author Organization [facility] Address [address] [place] [address] [place] [place] [id number] [place] [id number] Care Team Providers Care Financial Services Education Consultant Name Role Phone None, Provider Primary Care [...] on filedocumented in this encounter Care Teams Financial Services Education Consultant Relationship Specialty Start Date End Date None, Provider, PCP - General 12/27/21 06/19/22 documented as of this encounter
--- OUTSIDE RECORDS SUMMARY | 2024-03-15 18:34 | XMS_ITS | Encounter Summary ---
Author Organization [facility] Address [address] [place] [address]. [place], [place] [address] [place] [address] Care Team Providers Care Nut Culler Name Role Phone , Generic Ximena GOODWIN Primary Care Provider Unavailable Encounter Details Date Type Department Care Team (Late st Contact Info) Description 03/13/2016 Abstract [facility] [address] [place] [address] Jennifer Franklin APNP Social History Tobacco Use [...] CULTURE STREP A Routine 03/13/2016 9:39 AM YARD SWITCHER RAPID STREP A STAT 03/13/2016 9:39 AM YARD SWITCHER documented in this encounter Results * CULTURE STREP A (03/13/2016 9:39 AM YARD SWITCHER) SPEC DESCRIPTION THROAT 03/13/2016 10:51 AM YARD SWITCHER [facility] SPECIAL REQUESTS NO SPECIAL REQUEST 03/13/2016 10:51 AM YARD SWITCHER [facility] CULTURE RESULT NO STREPTOCOCCUS PYOGENES (GROUP A) ISOLATED 03/15/2016 12:39 PM YARD SWITCHER [facility] THROAT SWAB / Unknown 03/13/2016 9:39 AM YARD SWITCHER 03/13/2016 10:51 AM YARD SWITCHER us Generic Conversion Md GOODWIN MICROBIOLOGY - GENERAL ORDERABLES Final Result Performing Organization Address [facility] Co de Phone Number [facility] [address] [place] [address], [place] [phone] * RAPID STREP A (03/13/2016 9:39 AM YARD SWITCHER) SPECIMEN TYPE THROAT 03/13/2016 10:39 AM YARD SWITCHER [facility] RAPID STREP TEST NEGATIVE NEGATIVE 03/13/2016 10:50 AM YARD SWITCHER [facility] Comment: TESTING PERFORMED AT [facility] BUILDING [address] [place] [address] ??[id number] MALICK RAMOS M.D., ALL AROUND PATTERNMAKER THROAT SWAB / Unknown 03/13/2016 9:39 AM YARD SWITCHER 03/13/2016 10:42 AM YARD SWITCHER us Nikita Bueno Md, MD MICROBIOLOGY - GENERAL ORDERABLES Final Result Performing Organization Address [facility] Co de Phone Number [facility] [address] [place] [address], [place] [phone] documented in this encounter Visit Diagnoses Diagnosis Respiratory system disease complicating in second trimester (HHS/HCC) Other current maternal conditions classifiable elsewhere, antepartum documented in this encounter Care Teams Nut Culler Relationship Specialty Start Date End Date Nikita Goodwin MD PCP - General 03/13/16 documented as of this encounter
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
--- OUTSIDE RECORDS SUMMARY | 2024-03-15 18:34 | XMS_ITS | Encounter Summary ---
Author Organization [facility] Address [address] [place] [address]. [place], [place] [address] [place] [address] Care Team Providers Care Technical Consultant Name Role Phone La Nena Ferro EXPLOSIVE OPERATOR GRENADE- Primary Care Provider Unav ailable None, Provider Primary Care Provider Unavaila ble Reason for Visit * Reason Onset Date Comments Record Request 12/20/2021 Encounter Details Date Type Department Care Team (Late st Contact Info) Description 12/20/[address] [address] La Nena Ferro, [facility]- Record Request Social History Tobacco Use Types [...] PM CST Received and sent to PCP TIC SCIENTIST * Jil Franklin MA - 01/08/2022 8:43 AM CDT 2nd request sent * Jil Franklin MA - 12/20/2021 1:06 PM CDT I have faxed [facility] for pap report. documented in this encounter Plan of Treatment Not on file documented as of this encounter Visit Diagnoses Not on filedocumented in this encounter Care Teams Technical Consultant Relationship Specialty Start Date End Date La Nena Ferro, [facility]- PCP - General Nurse Practitioner Family 11/30/21 2 None, Provider, PCP - General 12/27/21 06/19/22 documented as of this encounter
--- OUTSIDE RECORDS SUMMARY | 2024-03-15 18:34 | XMS_ITS | Encounter Summary ---
Author Organization [facility] Address [address] [place] [address]. [place] [address] [place] [address] Care Team Providers Care Advertising Sales Assistant Name Role Phone La Nena Ferro RECYCLING TECH- Primary Care Provider Unav ailable Encounter Details Date Type Department Care Team (Latest Contact Info) Description 12/19/2021 2:22 PM CDT - 12/19/2021 11:59 PM CDT Hospital Encounter [facility] [address] [place], [place] [phone] La Nena Ferro, [facility]- Discharge Disposition: Home or Self Care [...] this encounter Results * HEPATITIS C AB ([facility] ONLY) (12/19/2021 2:27 PM CDT) HEPATITIS C AB NON-REACTI VE NON-REACTI VE 12/19/2021 7:56 PM CDT [facility] 12/19/2021 2:27 PM CDT us La Nena Ferro [facility] Final Resul t [facility] [address] [place] [address], * HCG QUANT (SERUM)-CHORIONIC GONADOTROPIN (12/19/2021 2:27 PM CDT) HCG QUANTITATIVE <1 MIU/ML 12/21/19 22 9:57 AM CDT [facility] Comment: WEEKS OF ? REFERENCE [...] LABORATORY Final Resul t Performing Organization Address City/State/[facility] Co de Phone Number [facility] [address] [place] [address], documented in this encounter Visit Diagnoses Diagnosis Menstrual period late Other disorder of menstruation and other abnormal bleeding from female genital tract Need for hepatitis C screening test Special screening examination for other specified viral diseases documented in this encounter Care Teams Advertising Sales Assistant Relationship Specialty Start Date End Date La Nena Ferro FNP-PATRICIA PCP - General Nurse Practitioner Family 11/30/21 2 documented as of this encounter
--- OUTSIDE RECORDS SUMMARY | 2024-03-15 18:34 | XMS_ITS | Encounter Summary ---
Author Organization [facility] Address [address] [place] [address]. [place], [place] [address] [place] [address] Care Team Providers Care Power Sewing Machine Operator Name Role Phone Victoria Tarnago-PATRICIA Primary Care Provider Unav ailable Reason for Referral * Consultation (Routine) - Closed Specialty Diagnoses / Procedures Referred By Dora oconnor Referred To Contact NEUROLOGY Diagnoses Confusion and disorientation Procedures OFFICE/OUTPT VISIT,NEW,LEVL III OFFICE/OUTPT VISIT,NEW,LEVL IV OFFICE/OUTPT VISIT,NEW,LEVL V OFFICE/OUTPT VISIT,EST,LEVL III OFFICE/OUTPT VISIT,EST,LEVL IV OFFICE/OUTPT VISIT,EST,LEVL V Victoria Tarango FNP-BC [facility] [address] [address] Phone: tel: fax: Referral ID Status Reason Start Date Expiration Date V isits Requested Visits Authorized [id number] Closed Specialty Services 12/19/2021 01/20/2023 99 99 Scheduling Instructions Please evaluate for episodes of confusion, disorientation with bright flashing lights. Family history of epilepsy. Reason for Visit * Reason Comments New Patient Encounter Details Date Type Department Care Team (Late st Contact Info) Description 12/19/2021 2:00 PM CDT Office Visit [address] [phone] Victoria Tarango FNP-BC New Patient [...] this encounter Progress Notes * Victoria Tarango, [facility] - 12/19/2021 2:00 PM CDT Reason for Visit: New Patient History of Present Illness: Pt presents with concern for vs miscarrage. Pt has history of miscarriage. 2 in the past.Lmp 11/07/2021. Denies cramping, bleeding, fever. Needs HCG quant to be evaluated by [facility] in [place]. Took an at home preg test and [...] 2. Menstrual period late Follow up with [facility] - TEST URINE NEGATIVE - HCG QUANT (SERUM)-CHORIONIC GONADOTROPIN; Future 3. Need for hepatitis C screening test Ordered today - HEPATITIS C AB ([facility] ONLY); Future 4. Vitamin D deficiency Will [...] not recommend another vaccine. Influenza vaccination: recommended. [facility] employee will get at work. Pneumonia vaccination: [...] r Schedule Ambulatory referral to Neurology ([facility]) Referral Routine Confusion and disorientation Ordered: 12/19/2021 documented as of this encounter Procedures Procedure Name Priority Date/Time Associated Diagnosis Comments TEST URINE Routine 12/19/2021 Menstrual period late URINALYSIS AUTO DIP Routine 12/19/2021 Burning with urination documented in this encounter Results * HEPATITIS C AB ([facility] ONLY) (12/19/2021 2:27 PM CDT) [facility] HEPATITIS C AB NON-REACTI VE NON-REACTI VE 12/19/2021 7:56 PM CDT [facility] 12/19/2021 2:27 PM CDT us Victoria Tarango [facility] Final Resul t [facility] [address] [place] [address], * HCG QUANT (SERUM)-CHORIONIC GONADOTROPIN (12/19/2021 2:27 PM CDT) [facility] HCG QUANTITATIVE <1 MIU/ML 12/21/19 22 9:57 AM CDT [facility] Comment: WEEKS OF ? REFERENCE [...] ?10,000 - 100,000 12/19/2021 2:[address] Final Resul t [facility] [address] [place] [id number], [place] [phone] * TEST URINE (12/19/2021) URINE HCG TEST NEGATIVE NEGATIVE [facility] ([facility]), [facility] Internal Control: VALID VALID [facility] (9401), [facility] URINE SPECIMEN FROM URETHRA / Unknown 12/19/2021 Victoria Haynes Tarango [facility] URINE ORDERABLES Final Resu lt [facility] ([facility]), [facility] [address] [address] [address], [place] [phone] * URINALYSIS AUTO DIP (12/19/2021) COLOR (U) YELLOW [facility] (9401), [facility] TRANSPARENCY CLEAR [facility] (9401), [facility] GLUCOSE (U) NEGATIVE NEGATIVE MG/DL [facility] (9401), [facility] BILIRUBIN (U) NEGATIVE NEGATIVE [facility] (9401), [facility] KETONES MG/DL (U) NEGATIVE NEGATIVE MG/DL [facility] (9401), [facility] SPECIFIC GRAVITY (U) 1.015 1.001 - 1.035 [facility] (9401), [facility] BLOOD (U) NEGATIVE NEGATIVE [facility] (9401), [facility] U PH 6.5 5.0 - 9.0 [facility] (9401), [facility] PROTEIN (U) NEGATIVE NEGATIVE mg/dL [facility] (9401), [facility] UROBILINOGEN 0.2 0.2 - 1.0 EU/dL = mg/dL [facility] (9401), [facility] NITRITES NEGATIVE NEGATIVE MG/DL [facility] (9401), [facility] LEUKOCYTES (U) NEGATIVE NEGATIVE [facility] (9401), [facility] URINE SPECIMEN OBTAINED BY CLEAN CATCH PROCEDURE / Unknown 12/19/2021 Victoria BARCLAYP- URINE ORDERABLES Final Resu lt [facility] (9401), [facility] [address] [place] [address], [place] [phone] documented in this encounter Visit Diagnoses Diagnosis Burning with urination- Primary Dysuria Menstrual period late Other disorder of menstruation and other abnormal bleeding from female genital tract Need for hepatitis C screening test Special screening examination for other specified viral diseases Vitamin D deficiency Unspecified vitamin D deficiency Confusion and disorientation Allergy to COVID-19 vaccine documented in this encounter Care Teams Power Sewing Machine Operator Relationship Specialty Start Date End Date Victoria Tarango FNP-BC PCP - General Nurse Practitioner Family 11/30/21 2 documented as of this encounter
--- OUTSIDE RECORDS SUMMARY | 2024-03-15 18:34 | XMS_ITS | Encounter Summary ---
Author Organization [facility] Address [address] [place] [address]. [place], [place] [address] [place] [address] Care Team Providers Care Maxillofacial Prosthodontist Name Role Phone La Nena Ferro Primary Care Provider Unav ailable None, Provider Primary Care Provider Jacquelin baker Encounter Details Date Type Department Care Team (Late st Contact Info) Description 12/20/2021 EMBI Message [address] [address] [place], [facility] Provider Lab results Social History Tobacco Use [...] 12/28/2021 11:01 AM CDT To: Toni Vieira [facility] Triage Pool Subject: Lab results No, we're not from around here unfortunately documented in this encounter Plan of Treatment Not on file documented as of this encounter Visit Diagnoses Not on filedocumented in this encounter Care Teams Maxillofacial Prosthodontist Relationship Specialty Start Date End Date La Nena Ferro FNP-BC PCP - General Nurse Practitioner Family 11/30/21 2 None, Provider, PCP - General 12/27/21 06/19/22 documented as of this encounter
--- OUTSIDE RECORDS SUMMARY | 2024-03-15 18:34 | XMS_ITS | Encounter Summary ---
Author Organization [facility] Address [address] [place] [address]. [place] [address] Care Team Providers Care Patient Account Representative Name Role Phone Nikita Mares MD Primary Care Provider Unavailable Zachery Ryan MD Primary Care Provider Unavaila ble Zachery Ryan MD Primary Care Provider Unavaila samuel Encounter Details Date Type Department Care Team (Latest Contact Info) Description 10/18/2015 Abstract [facility] Social History Tobacco [...] filedocumented in this encounter Care Teams Patient Account Representative Relationship Specialty Start Date End Date Nikita Mares MD PCP - General 03/13/16 Zachery Ryan MD PCP - General 10/26/15 03/12/16 Zachery Ryan MD PCP - General 10/18/15 10/25/15 documented as of this encounter
--- OUTSIDE RECORDS SUMMARY | 2024-03-15 18:34 | XMS_ITS | Encounter Summary ---
Author Organization [facility] Address [address] [place] [address]. [place], [place] [address] [place] [address] Care Team Providers Care Cycle Director Name Role Phone Shana Easton MD Primary Care Provider [phone] La Nena Ferro [facility] Primary Care Provider Unav ailable None, Provider Primary Care Provider Unavaila ble Reason for Visit * Reason Comments Pathology (SCAN) Encounter Details Date Type Department Care Team ([facility] Contact Info) Description 07/22/2021 Scan HEALTH INFO [...] Coronavirus/COVID-19? No / Unsure 02/24/2022 8:29 AM METEOROLOGIST LIAISON documented as of this encounter Plan of [...] on filedocumented in this encounter Care Teams Cycle Director Relationship Specialty Start Date End Date Shana Easton MD PCP - General FAMILY PRACTICE 07/22/18 11/29/21 La Nena Ferro, SITE INSPECTOR- PCP - General Nurse Practitioner Family 11/30/21 2 None, Gualberto, PCP - General 12/27/21 06/19/22 documented as of this encounter
--- OUTSIDE RECORDS SUMMARY | 2024-03-15 18:34 | XMS_ITS | Encounter Summary ---
Author Organization [facility] Address [address] [place] [address]. [place], [place] [address] [place] [address] Care Team Providers Care Digital Pre Press Operator Name Role Phone , Nikita Bueno MD Primary Care Provider Unavailable Reason for Visit * Reason Comments Problem (Cold Symptoms) Encounter Details Date Type Department Care Team (Latest Contact Info) Description 05/14/2017 5:37 PM EXECUTIVE ADVISOR - 05/14/2017 6:22 PM EXECUTIVE ADVISOR Hospital Encounter [facility] [address] [place], [place] [phone] Shayy Mckeon, ACCOUNTS PAYABLE ANALYST [address] [place], [place] [id number] Problem (Cold Symptoms) Discharge Disposition: Home or [...] Comments Blood Pressure 112/69 05/14/2017 5:37 PM EXECUTIVE ADVISOR Pulse 105 05/14/2017 5:37 PM EXECUTIVE ADVISOR Temperature 36.9 ??C (98.4 ??F) 05/14/2017 5:37 PM CS T Respiratory Rate 20 05/14/2017 5:37 PM EXECUTIVE ADVISOR Oxygen Saturation 99% 05/14/2017 5:37 PM EXECUTIVE ADVISOR Inhaled Oxygen Concentration - - Weight 42.2 kg (93 lb) 05/14/2017 5:37 PM EXECUTIVE ADVISOR Height 160 cm (5' 3 ) 05/14/2017 5:37 PM EXECUTIVE ADVISOR Body Mass Index 16.47 05/14/2017 5:37 PM EXECUTIVE ADVISOR Body Mass Index Percentile 0.67% 05/14/2017 5:3 7 PM EXECUTIVE ADVISOR Growth Chart: [facility] (Girls, 2- 20 Years) documented in this encounter Discharge Instructions * Discharge Instructions* Shayy Mckeon, ACCOUNTS PAYABLE ANALYST - 05/14/2017 6:15 PM EXECUTIVE ADVISOR Images from the original note were not included. Once a swab is negative at this time you may continue taking Tylenol as needed for pain increase water intake and follow-up with MANAGER SECURITY AND SAFETY for continued concerns Please use humidifier at [...] right for you. Copyright Copyright ?? 2017 [employer]. and its affiliates and/or licensors. All rights [...] trouble breathing. Where can I learn more? [place] [employer] http://www.lung.ca/diseases-maladies/a-z/cold-rhume/index_e.php National [place] of Allergy and Infectious Diseases http://www.niaid.nih.gov/topics/commonCold/Pages/treatment.aspx Last [...] for you. Copyright Copyright ?? 2017 [employer] and its affiliates and/or licensors. All rights reserved. UTIVE ADVISOR documented in this encounter Medications at Time [...] for feversas needed History provided by: Patient stopper grinder used: No Medical History ALLERGIES: No Known [...] Disposition: Discharge Shayy Mckeon APRN 05/14/17 1815 UTIVE ADVISOR * Rosie Rodriguez RN - 05/14/2017 5:44 PM CST PT AMBULATORY TO FROM HOME WITH C/O COUGH, CONGESTION, CHEEMA, BODY ACHES AND NAUSEA THAT STARTED 3 DAYS AGO. POSITIVE EXPOSURE TO INFLUENZA B. UTIVE ADVISOR documented in this encounter Plan of Treatment Not on file documented as of this encounter Procedures Procedure Name Priority Date/Time Associated Diagnosis Comments INFLUENZA A & B STAT 05/14/2017 5:46 PM EXECUTIVE ADVISOR documented in this encounter Results * INFLUENZA A & B (05/14/2017 5:46 PM EXECUTIVE ADVISOR) SPECIMEN TYPE NASOPHARYNGEAL SWAB 05/14/2017 5:50 PM EXECUTIVE ADVISOR [facility] INFLUENZA A NEGATIVE NEGATIVE 05/14/2017 6:09 PM EXECUTIVE ADVISOR [facility] INFLUENZA B NEGATIVE NEGATIVE 05/14/2017 6:09 PM EXECUTIVE ADVISOR [facility] Comment: Interpretation: Negative for Influenza A and [...] NASOPHARYNGEAL SWAB / Unknown 05/14/2017 5:46 PM EXECUTIVE ADVISOR us Shayy Mckeon ACCOUNTS PAYABLE ANALYST MICROBIOLOGY - GENERAL ORD ERABLES [place] [address], documented in this encounter Visit Diagnoses Diagnosis Viral URI with cough- Primary Acute upper respiratory infections of unspecified site documented in this encounter Care Teams Digital Pre Press Operator Relationship Specialty Start Date End Date Nikita Mares MD PCP - General 03/13/16 documented as of this encounter
--- OUTSIDE RECORDS SUMMARY | 2024-03-15 18:34 | XMS_ITS | Encounter Summary ---
Author Organization [facility] Address [address] [place] [address]. [place] [address] Care Team Providers Care Senior Sql Dba Name Role Phone Nikita Mares MD Primary Care Provider Unavailable Zachery Ryan MD Primary Care Provider Unavaila samuel Encounter Details Date Type Department Care Team (Latest Contact Info) Description 11/01/2015 Abstract [facility] Medical Group Social History Tobacco [...] filedocumented in this encounter Care Teams Senior Sql Dba Relationship Specialty Start Date End Date Nikita Mares MD PCP - General 03/13/16 Zachery Ryan MD PCP - General 10/26/15 03/12/16 documented as of this encounter
--- OUTSIDE RECORDS SUMMARY | 2024-03-15 18:34 | XMS_ITS | Encounter Summary ---
Author Organization [facility] Address [address] [place] [address]. [place], [place] [address] [place] [address] Care Team Providers Care Real Estate Portfolio Manager Name Role Phone La Nena Ferro BULK MAIL CLERK- Primary Care Provider Unav ailable Encounter Details [...] on filedocumented in this encounter Care Teams Real Estate Portfolio Manager Relationship Specialty Start Date End Date La Nena Ferro FNPPATRICIA PCP - General Nurse Practitioner Family 11/30/21 2 documented as of this encounter
--- OUTSIDE RECORDS SUMMARY | 2024-03-15 18:34 | XMS_ITS | Encounter Summary ---
Author Organization [facility] Address [address] [place] [address]. [place], [place] [address] [place] [address] Care Team Providers Care Furniture Refinisher Name Role Phone Lorin Casillas MD Primary Care Provider [phone] Reason for Visit * Reason Comments Urinary Symptoms Encounter Details Date Type Department Care Team (Late st Contact Info) Description 03/21/2021 6:44 PM PASTE MAKER - 03/21/2021 7:59 PM PASTE MAKER Hospital Encounter [place] [address] [place] [address] Patrick De Jesus MD [address] [place] [address] [place] [address] Urinary Symptoms Discharge Disposition: Home [...] COVID-19? No / Unsure 03/21/2021 5:23 PM PASTE MAKER documented as of this encounter Last Filed Vital Signs Vital Sign Reading Time Taken Comments Blood Pressure 122/78 03/21/2021 6:49 PM PASTE MAKER Pulse 78 03/21/2021 6:49 PM PASTE MAKER Temperature 36.7 ??C (98 ??F) 03/21/2021 6:49 PM PASTE MAKER Respiratory Rate 18 03/21/2021 6:49 PM PASTE MAKER Oxygen Saturation 100% 03/21/2021 6:49 PM PASTE MAKER Inhaled Oxygen Concentration - - Weight - - Height - - Body Mass Index - - documented in this encounter Discharge Instructions * Attachments The following attachments cannot be sent through Care Everywhere. * Acute Cystitis Discharge Instructions (Arabic) documented in this encounter Medications at Time of Discharge carBAMazepine (TEGRETOL) 200 MG tablet Take 50 mg by mouth daily. 12/19/2021 cephALEXin (KEFLEX) 500 MG capsule Take 1 capsule (500 mg total) by mouth 2 (two) times daily for 3 days. 6 capsule 03/21/2021 03/24/2021 documented as of this encounter ED Notes * Patrick De Jesus MD - 03/21/2021 6:54 PM CST [facility]- [place], [place] HISTORICAL INFORMATION Primary Care Doctor: LORIN CASILLAS MD Patient information was obtained primarily from the patient, nursing notes. History/Exam limitations: None Provider at Bedside Date/Time Event User Comments 03/21/21 1726 Provider at Bedside Assessing Patient PATRICK DE JESUS CHIEF COMPLAINT Urinary Symptoms Chief Complaint Patient presents with ??? Urinary Symptoms HPI Mariam Lea is a 20-year-old female who presents with [...] 6 capsule, Refills: 0 Class: Eprescribe Pharmacy: [facility] [address] [place] [address] (Ph #: [phone]) MD Patrick Hill MD 03/21/211937 E MAKER * Ese Parmar RN - 03/21/2021 6:46 PM CST Reports burning with urination for last month. Treated recently for uti but s/s didn't resolve. E MAKER documented in this encounter Plan of Treatment Not on file documented as of this encounter Procedures Procedure Name Priority Date/Time Associated Diagnosis Comments URINE BACTERIA CULTURE STAT 03/21/2021 7:19 PM PASTE MAKER TEST URINE STAT 03/21/2021 7:14 PM PASTE MAKER URINALYSIS AUTO DIP STAT 03/21/2021 7 :14 PM PASTE MAKER documented in this encounter Results * (ABNORMAL) CULTURE URINE (03/21/2021 7:19 PM PASTE MAKER) SPEC DESCRIPTION URINE CLEAN CATCH 03/21/2021 7:19 PM PASTE MAKER [facility] CONVENIENT CARE SPECIAL REQUESTS NO SPECIAL REQUEST 03/21/2021 7:19 PM PASTE MAKER [facility] CONVENIENT CARE CULTURE RESULT 10,000-49,0 00 COL/ML ESCHERICHIA COLI (A) 03/24/2021 9:59 AM PASTE MAKER [facility] URINE SPECIMEN OBTAINED BY CLEAN CATCH PROCEDURE / Unknown 03/21/2021 7:19 PM PASTE MAKER 03/21/2021 9:12 PM PASTE MAKER Narrative Organism Antibiotic Method Susceptibility Escherichia coli AMPICILLIN BRENDA (VITEK) >=32: Resistant Escherichia coli AMPICILLIN/SULBACTAM BRENDA (VITEK) 16: Intermediate Comment:INTERMEDIATE Escherichia coli CEFTRIAXONE BRENDA (VITEK) <=1: Sensitive Escherichia coli CEFTAZIDIME BRENDA (VITEK) <=1: Sensitive Escherichia coli CEFAZOLIN BRENDA (VITEK) <=4: Sensitive Escherichia coli ESBL BRENDA (VITEK) NEG: Sensitive Escherichia coli NITROFURANTOIN BRENDA (VITEK) <=16: Sensitive Escherichia coli GENTAMICIN BRENDA (VITEK) <=1: Sensitive Escherichia coli LEVOFLOXACIN BRENDA (VITEK) <=0.12: Sensitive Escherichia coli PIPRACIL/TAZO BRENDA (VITEK) <=4: Sensitive Escherichia coli TRIMETH-SULFAMETH. BRENDA (VITEK) >=320: Resistant Patrick De Jesus MD MICROBIOLOGY - GENERAL ORDER LUTHER Final Result Performing Organization Address [facility] Co de Phone Number [facility] [address] [place] [address], [place] [phone] [facility] CONVENIENT CARE [address] [place] [address], [place] * TEST URINE (03/21/2021 7:14 PM PASTE MAKER) PREG TEST NEGATIVE 03/22/2021 1:15 PM PASTE MAKER [facility] C[facility] SPECIFIC GRAVITY (U) 1.015 >1.009 03/22/2021 1:15 PM PASTE MAKER [facility] URINE SPECIMEN FROM URETHRA / Unknown 03/21/2021 7:14 PM PASTE MAKER Patrick De Jesus MD URINE ORDERABLES Final Resul t Performing Organization Address [facility] Co de Phone Number [facility] CONVENIENT CARE [address] [place] [address], [place] * (ABNORMAL) URINALYSIS AUTO DIP (03/21/2021 7:14 PM PASTE MAKER) SPECIMEN TYPE URINE CLEAN CATCH 03/21/2021 7:14 PM PASTE MAKER [facility] CONVENIENT CARE COLOR (U) YELLOW 03/22/2021 11:19 AM PASTE MAKER [facility] CONVENIENT CARE TRANSPARENCY CLEAR 03/22/2021 11:19 AM PASTE MAKER [facility] CONVENIENT CARE SPECIFIC GRAVITY (U) 1.025 1.001 - 1.030 03/22/2021 11:19 AM PASTE MAKER [facility] C[facility] U PH 5.0 5.0 - 9.0 03/22/2021 11:19 AM PASTE MAKER [facility] CONVENIENT CARE LEUKOCYTES (U) SMALL(A) NEGATIVE 03/22/2021 11:19 AM PASTE MAKER [facility] C[facility] NITRITES NEGATIVE NEGATIVE 03/22/2021 11:19 AM PASTE MAKER [facility] C[facility] PROTEIN (U) NEGATIVE <30 MG/DL 03/22/2021 11:19 AM PASTE MAKER [facility] URINE GLUCOSE NEGATIVE NEGATIVE MG/DL 03/22/2021 11:19 AM PASTE MAKER [facility] C[facility] KETONES MG/DL (U) NEGATIVE NEGATIVE MG/DL 03/22/2021 11:19 AM PASTE MAKER [facility] UROBILINOGEN 0.2(A) NEGATIVE MG/DL 03/22/2021 11:19 AM PASTE MAKER [facility] BILIRUBIN (U) NEGATIVE NEGATIVE MG/DL 03/22/2021 11:[address] [facility] BLOOD (U) TRACE(A) NEGATIVE 03/22/2021 11:[address] [facility] URINE SPECIMEN OBTAINED BY CLEAN CATCH PROCEDURE / Unknown 03/21/2021 7:14 PM PASTE MAKER us Patrick De Jesus MD URINE ORDERABLES Final Resul t [place] [id number] [place] [address], documented in this encounter Visit Diagnoses Diagnosis Acute cystitis with hematuria- Primary Acute cystitis documented in this encounter Care Teams Furniture Refinisher Relationship Specialty Start Date End Date Lorin Casillas MD PCP - General FAMILY PRACTICE 07/22/18 11/29/21 documented as of this encounter
--- OUTSIDE RECORDS SUMMARY | 2024-03-15 18:34 | XMS_ITS | Encounter Summary ---
Author Organization [facility] Address [address] [place] [address]. [place], [place] [address] [place] [address] Care Team Providers Care Cart Pusher Name Role Phone Nikita Goodwin MD Primary Care Provider Unavailable Zachery Ryan MD Primary Care Provider Unavaila ble Zachery Ryan MD Primary Care Provider Unavaila samuel Encounter Details Date Type Department Care Team (Late st Contact Info) Description 10/18/2015 Abstract [facility] [address] [place] [address] Yulia Dc, MARA Social History Tobacco Use [...] This assay was validated by [facility] and cleared by the FDA for endocervical and male urethral swabs from symptomatic and asymptomatic patients. Performed at [facility], [address] [place] [address] SPECIMEN CERVIX 10/25/2015 12:12 PM CDT [facility] [...] This assay was validated by [facility] and cleared by the FDA for endocervical and male urethral swabs from symptomatic and asymptomatic patients. Performed at [facility], [address] [place] [address] 10/18/2015 7:30 PM CDT 10/18/2015 7:57 PM CDT us Generic Conversion Md GOODWIN MICROBIOLOGY - GENERAL ORDERABLES Final Result [facility] [address] [place], [place] [id number] * SMEAR, STAIN, WET PREP (10/18/2015 7:30 PM CDT) SPEC DESCRIPTION VAGINAL SPECIMEN 10/18/2015 7:31 PM CDT [facility] SPECIAL REQUESTS NO SPECIAL REQUEST 10/18/2015 7:31 PM CDT [facility] DIRECT EXAM NO YEAST OR FUNGAL ELEMENTS SEEN 10/18/2015 8:00 PM CDT [facility] DIRECT EXAM NO MOTILE TRICHOMONAS SEEN 10/18/2015 8:00 PM CDT [facility] DIRECT EXAM CLUE CELLS SEEN 10/18/19 8:00 PM CDT [facility] DIRECT EXAM TESTING PERFORMED AT [address] ??[id number] MALICK RAMOS M.D., BAKERY DEMONSTRATOR 10/18/2015 8:00 PM CDT [facility] VAGINAL STRUCTURE / Unknown 10/18/2015 7:30 PM CDT 10/18/2015 7:57 PM CDT us Generic Conversion Md GOODWIN MICROBIOLOGY - GENERAL ORDERABLES Final Result Performing Organization Address [facility] Co de Phone Number [facility] [address] [place] [address], [place] [phone] * TEST URINE (10/18/2015 7:17 PM CDT) PREG TEST POSITIVE 10/18/2015 7:28 PM CDT [facility] Comment: TESTING PERFORMED AT [address] ??[id number] MALICK RAMOS M.D., BAKERY DEMONSTRATOR SPECIFIC GRAVITY (U) 1.020 >1.009 10/18/2015 7:28 PM CDT [facility] 10/18/2015 7:17 PM CDT 10/18/2015 7:25 PM CDT us Generic Conversion Md GOODWIN URINE ORDERABLES Final Result Performing Organization Address [facility] Co de Phone Number [facility] [address] [place] [address], [place] [phone] * URINALYSIS AUTO DIP (10/18/2015 7:17 PM CDT) SOURCE (FLUID) URINE CLEAN CATCH 10/18/2015 7:17 PM CDT [facility] COLOR (U) YELLOW 10/18/2015 7:27 PM CDT [facility] Comment: TESTING PERFORMED AT [address] ??[id number] MALICK RAMOS M.D., BAKERY DEMONSTRATOR TRANSPARENCY CLEAR 10/18/2015 7:27 PM CDT [facility] SPECIFIC GRAVITY (U) 1.020 1.001 - 1.030 10/18/2015 7:27 PM CDT [facility] U PH 7.5 5.0 - 9.0 10/18/2015 7:27 PM CDT [facility] LEUKOCYTES (U) NEGATIVE NEGATIVE 10/18/2015 7:27 PM CDT [facility] NITRITES NEGATIVE NEGATIVE 10/18/2015 7:27 PM CDT [facility] PROTEIN (U) NEGATIVE <30 MG/DL 10/18/2015 7:27 PM CDT [facility] URINE GLUCOSE NEGATIVE NEGATIVE MG/DL 10/18/2015 7:27 PM CDT [facility] KETONES MG/DL (U) NEGATIVE NEGATIVE MG/DL 10/18/2015 7:27 PM CDT [facility] UROBILINOGEN NEGATIVE NEGATIVE MG/DL 10/18/2015 7:27 PM CDT [facility] BILIRUBIN (U) NEGATIVE NEGATIVE MG/DL 10/18/2015 7:27 PM CDT [facility] BLOOD (U) NEGATIVE NEGATIVE 10/18/2015 7:27 PM CDT [facility] CULTURE & SENSITIVITY INDICATED? CULTURE IS NOT INDICATED 10/18/2015 7:27 PM CDT [facility] 10/18/2015 7:17 PM CDT 10/18/2015 7:25 PM CDT us Generic Conversion Md GOODWIN URINE ORDERABLES Final Result [facility] [address] [place] [address], [place] [phone] documented in this encounter Visit Diagnoses Diagnosis Abdominal pain Abdominal pain, unspecified site documented in this encounter Care Teams Cart Pusher Relationship Specialty Start Date End Date Nikita Goodwin MD PCP - General 03/13/16 Zachery Ryan MD PCP - General 10/26/15 03/12/16 Zachery Ryan MD PCP - General 10/18/15 10/25/15 documented as of this encounter
--- OUTSIDE RECORDS SUMMARY | 2024-03-15 18:34 | XMS_ITS | Encounter Summary ---
Author Organization [facility] Address [address] [place] [address]. [place], [place] [address] [place] [address] Care Team Providers Care Senior Account Director Name Role Phone Nikita Mares MD Primary Care Provider Unavailable Encounter Details Date Type Department Care Team (Late st Contact Info) Description 01/26/2017 [place] [address] Nikita Mares MD Social History Tobacco Use [...] filedocumented in this encounter Care Teams Senior Account Director Relationship Specialty Start Date End Date Nikita Mares MD PCP - General 03/13/16 documented as of this encounter
--- OUTSIDE RECORDS SUMMARY | 2024-03-15 18:34 | XMS_ITS | Encounter Summary ---
Author Organization [facility] Address [address] [place] [address]. [place] [id number] Care Team Providers Care Rn Outpatient Surgery Name Role Phone Shana Easton MD Primary Care Provider [phone] Encounter Details Date Type Department Care Team [...] COVID-19? No / Unsure 03/21/2021 5:23 PM LOCKSTITCH CUP SETTER documented as of this encounter Plan of Treatment Not on file documented as of this encounter Visit Diagnoses Not on filedocumented in this encounter Care Teams Rn Outpatient Surgery Relationship Specialty Start Date End Date Shana Easton MD PCP - General FAMILY PRACTICE 07/22/18 11/29/21 documented as of this encounter
--- OUTSIDE RECORDS SUMMARY | 2024-03-15 18:34 | XMS_ITS | Encounter Summary ---
Author Organization [facility] Address [address] [place] [address]. [place] [address] Care Team Providers Care Surgery Manager Name Role Phone Nikita Mares MD Primary Care Provider Unavailable Zachery Ryan MD Primary Care Provider Unavaila samuel Encounter Details Date Type Department Care Team (Latest Contact Info) Description 10/27/2015 Abstract [facility] Medical Group Nikita Mares MD [...] on filedocumented in this encounter Care Teams Surgery Manager Relationship Specialty Start Date End Date Nikita Mares MD PCP - General 03/13/16 Zachery Ryan MD PCP - General 10/26/15 03/12/16 documented as of this encounter
--- OUTSIDE RECORDS SUMMARY | 2024-03-15 18:35 | XMS_ITS | Encounter Summary ---
Author Organization [facility] Address [address] [place] [address]. [place], [place] [address] [place] [address] Care Team Providers Care Club Lounge Attendant Name Role Phone Nikita Goodwin MD Primary Care Provider Zachery Angel MD Primary Care Provider Zachery Toth MD Primary Care Provider Zachery Toth MD Primary Care Provider Jacquelin baker Encounter Details Date Type Department Care Team (Latest Contact Info) Description 11/09/2013 Abstract [facility] Group Zachery Ryan MD [address] [place] [address] Social History Tobacco Use Types [...] COLOR (U) KARMEN ?? TESTING PERFORMED AT [place], [place] MALICK RAMOS M.D., CLAIM TECHNICIAN [employer] TO EPIC CONVERSION TRANSPARENCY CLEAR [employer] [...] on filedocumented in this encounter Care Teams Club Lounge Attendant Relationship Specialty Start Date End Date Nikita Goodwin MD PCP - General 03/13/16 Zachery Ryan MD PCP - General 10/26/15 03/12/16 Zachery Ryan MD PCP - General 10/18/15 10/25/15 Zachery Ryan MD PCP - General 11/09/13 10/17/15 documented as of this encounter
--- OUTSIDE RECORDS SUMMARY | 2024-03-15 18:35 | XMS_ITS | Encounter Summary ---
Author Organization [facility] Address [address] [place] [address]. [place], [place] [address] [place] [address] Care Team Providers Care Hydrogen Power Plant Manager Name Role Phone Nikita Mares MD Primary Care Provider Unavailable Zachery Ryan MD Primary Care Provider UnavailZachery Charlton MD Primary Care Provider Unavaila Zachery Forrester MD Primary Care Provider Unavaila samuel Encounter Details Date Type Department Care Team (Late st Contact Info) Description 11/09/[address] [facility] [address] [place] [address] Denny Castanon, APNP [address] [facility] [address] [place] [address] Social History Tobacco Use Types Packs/Day Years [...] giddiness documented in this encounter Care Teams Hydrogen Power Plant Manager Relationship Specialty Start Date End Date Nikita Mares MD PCP - General 03/13/16 Zachery Ryan MD PCP - General 10/26/15 03/12/16 Zachery Ryan MD PCP - General 10/18/15 10/25/15 Zachery Ryan MD PCP - General 11/09/13 10/17/15 documented as of this encounter
--- OUTSIDE RECORDS SUMMARY | 2024-03-15 18:35 | XMS_ITS | Encounter Summary ---
Author Organization [facility] Address [facility]. [place], [place] [address] [place] [address] Care Team Providers Care Sales Vice President Name Role Phone Nikita Mares MD Primary [...] (Late st Contact Info) Description 04/10/2011 Emergency [facility] [place] [address] Nikita Mares MD Social History Tobacco Use [...] pain documented in this encounter Care Teams Sales Vice President Relationship Specialty Start Date End Date Nikita Mares MD PCP - General 03/13/16 Zachery Ryan MD PCP - General 10/26/15 03/12/16 Zachery Ryan MD PCP - General 10/18/15 10/25/15 Zachery Ryan MD PCP - General 11/09/13 10/17/15 Zachery Ryan MD PCP - General 09/30/12 11/08/13 Zachery yRan MD PCP - General 08/29/12 09/29/12 Zachery Ryan MD PCP - General 07/15/12 08/28/12 , Generic Conversion, PCP - General 04/22/11 Md Generic Conversion, PCP - General 04/10/11 documented as of this encounter
--- OUTSIDE RECORDS SUMMARY | 2024-03-15 18:35 | XMS_ITS | Encounter Summary ---
Author Organization [facility] Address [address] [place] [address]. [place], [place] [address] [place] [address] Care Team Providers Care Fundraising Officer Name Role Phone Nikita Mares MD [...] (Late st Contact Info) Description 10/24/2006 Abstract [place] [address] [place], [place] [id number] Nikita Mares MD Social History Tobacco Use [...] on filedocumented in this encounter Care Teams Fundraising Officer Relationship Specialty Start Date End Date Nikita Mares MD PCP - General 03/13/16 Zachery Ryan MD PCP - General 10/26/15 03/12/16 Zachery Ryan MD PCP - General 10/18/15 10/25/15 Zachery Ryan, PCP - General 11/09/13 10/17/15 Zachery Ryan, PCP - General 09/30/12 11/08/13 Zachery Rayn, PCP - General 08/29/12 09/29/12 Zachery Ryan, [...]
--- OUTSIDE RECORDS SUMMARY | 2024-03-15 18:35 | XMS_ITS | Encounter Summary ---
Author Organization [facility] Address [address] [place] [address]. [place], [place] [address] [place] [address] Care Team Providers Care Napper Fixer Name Role Phone Md Generic Ximena GOODWIN [...] (Late st Contact Info) Description 09/18/2007 Abstract [facility] [address] [place] [address] Matilda Curiel, [address] [place] [phone] Social History Tobacco Use Types Packs/Day Years [...] on filedocumented in this encounter Care Teams Napper Fixer Relationship Specialty Start Date End Date Nikita [...]
--- OUTSIDE RECORDS SUMMARY | 2024-03-15 18:35 | XMS_ITS | Encounter Summary ---
Author Organization [facility] Address [address] [place] [address]. [place], [place] [address] [place] [address] Care Team Providers Care Executive Office Manager Name Role Phone Nikita Goodwin MD Primary Care Provider Zachery Angel MD Primary Care Provider Zachery Toth MD Primary Care Provider Zachery Toth MD Primary Care Provider Zachery Toth MD Primary Care Provider Unavaila Zachery Forrester MD Primary Care Provider Unavaila ble Encounter Details Date Type Department Care Team (Latest Contact Info) Description 08/29/2012 Abstract [facility] Zachery Ryan MD [address] [place] [address] Social History Tobacco Use Types Packs/Day Years [...] on filedocumented in this encounter Care Teams Executive Office Manager Relationship Specialty Start Date End Date Nikita Goodwin MD PCP - General 03/13/16 Zachery Ryan MD PCP - General 10/26/15 03/12/16 Zachrey Ryan MD PCP - General 10/18/15 10/25/15 Zachery Ryan MD PCP - General 11/09/13 10/17/15 Zachery Ryan MD PCP - General 09/30/12 11/08/13 Zachery Ryan MD PCP - General 08/29/12 09/29/12 documented as of this encounter
--- OUTSIDE RECORDS SUMMARY | 2024-03-15 18:35 | XMS_ITS | Encounter Summary ---
Author Organization [facility] Address [facility]. [place], [place] [address] [place], [place] [id number] Care Team Providers Care Carpet Journeyman Name Role Phone Nikita Mares MD Primary Care Provider Zachery Angel MD Primary Care Provider UnavailZachery Charlton MD Primary Care Provider UnavailZachery Charlton MD Primary Care Provider UnavailZachery Charlton MD Primary Care Provider Unavaila ble Encounter Details Date Type Department Care Team (Latest Contact Info) Description 12/18/2012 Abstract [facility] Nikita Mares MD Social History [...] on filedocumented in this encounter Care Teams Carpet Journeyman Relationship Specialty Start Date End Date Nikita Mares MD PCP - General 03/13/16 Zachery Ryan MD PCP - General 10/26/15 03/12/16 Zachery Ryan MD PCP - General 10/18/15 10/25/15 Zachery Ryan MD PCP - General 11/09/13 10/17/15 Zachery Ryan MD PCP - General 09/30/12 11/08/13 documented as of this encounter
--- OUTSIDE RECORDS SUMMARY | 2024-03-15 18:35 | XMS_ITS | Encounter Summary ---
Author Organization [facility] Address [facility]6 [facility]. [place], [place] [address] [place] [address] Care Team Providers Care Community Resource Officer Name Role Phone Nikita Mares MD [...] (Late st Contact Info) Description 08/07/2010 [facility] [address] [place] [address] Nikita Mares MD Social History Tobacco Use [...] site documented in this encounter Care Teams Community Resource Officer Relationship Specialty Start Date End Date [...]
--- OUTSIDE RECORDS SUMMARY | 2024-03-15 18:35 | XMS_ITS | Encounter Summary ---
Author Organization [facility] Address [facility]. [place], [place] [address] [place] [address] Care Team Providers Care Oyster Fisherman Name Role Phone Nikita Mares MD Primary Care Provider Zachery Angel MD Primary Care Provider Zachery Toth MD Primary Care Provider Zachery Toth MD Primary Care Provider Zachery Toth MD Primary Care Provider Jacquelin baker Encounter Details Date Type Department Care Team (Late st Contact Info) Description 04/21/2013 Abstract [facility] Family Medicine - [place] [address] [place] [address] Zachery Ryan MD [address] [place] [address] Social History Tobacco Use Types Packs/Day Years [...] EVERY 4 TO 6 HOURS NEEDED; Therapy: [id number] to (Last Rx:[id number]) Requested for: [id number] Ordered; For: Asthma (493.90); Rx By: Zachery Ryan; Dispense: 0 Days ; #:2 X 8.5 GM Inhaler; Refill:3; Verified Transmission to [facility] [id number] 2. TEGretol 200 MG Oral Tablet; TAKE 1 TABLET TWICE DAILY; Therapy: (Recorded:29Aug2012) to Recorded; For: Depression (311); Dispense: 0 Days ; #: Sufficient Tablet; Refill: 0; Record; Last Updated By: Zachery Ryan 3. Zafirlukast 10 MG Oral Tablet; TAKE ONE TABLET BY MOUTH TWICE DAILY; Therapy: 21Xqy2400 to (Last Rx:[id number]) Requested for: [id number] Ordered; For: Asthma (493.90), Nasal Passage Blockage (Stuffiness) (478.19); Rx By: Zachery Ryan; Dispense: 0 Days ; #:60 Tablet; Refill: 2; Verified Transmission to [facility] 31589 Allergies 1. No Known Drug Allergies No Known Drug Allergies Vitals Vital Signs [Data Includes: Current Encounter] 21Apr2013 03:40PM Heart Rate 72 Respiration 14 Systolic 98 Diastolic 62 Weight 103 lb BURNER documented in this encounter Plan of Treatment Not on file documented as of this encounter Visit Diagnoses Not on filedocumented in this encounter Care Teams Oyster Fisherman Relationship Specialty Start Date End Date Nikita Mares MD PCP - General 03/13/16 Zachery Ryan MD PCP - General 10/26/15 03/12/16 Zachery Ryan MD PCP - General 10/18/15 10/25/15 Zachery Ryan MD PCP - General 11/09/13 10/17/15 Zachery Ryan MD PCP - General 09/30/12 11/08/13 documented as of this encounter
--- OUTSIDE RECORDS SUMMARY | 2024-03-15 18:35 | XMS_ITS | Encounter Summary ---
Author Organization [facility] Address [address] [place] [address]. [place] [id number] Care Team Providers Care Strap Folding Machine Operator Name Role Phone Nikita Mares MD Primary Care Provider Zachery Angel MD Primary Care Provider Zachery Toth MD Primary Care Provider Zachery Toht MD Primary Care Provider Zachery Toth MD Primary Care Provider Zachery Toth MD Primary Care Provider Zachery Toth MD Primary Care Provider Nikita Newman Md, MD Primary Care Provider Unavailable Encounter Details Date Type Department Care Team (Latest Contact Info) Description 03/20/2012 Abstract [facility] Medical Group Social History Tobacco [...] Kaiser MA; Mar 20 2012 5:00PM (Author) GE FILTRATION OPERATOR documented in this encounter Plan of Treatment Not on file documented as of this encounter Visit Diagnoses Not on filedocumented in this encounter Care Teams Strap Folding Machine Operator Relationship Specialty Start Date End [...]
--- OUTSIDE RECORDS SUMMARY | 2024-03-15 18:35 | XMS_ITS | Encounter Summary ---
Author Organization [facility] Address [facility]6 [facility]. [place], [place] [address] [place], [place] [id number] Care Team Providers Care Stroke Coordinator Name Role Phone Nikita Mares MD Primary Care Provider Zachery Angel MD Primary Care Provider UnavailZachery Charlton MD Primary Care Provider UnavailZachery Charlton MD Primary Care Provider UnavailZachery Charlton MD Primary Care Provider Unavaila ble Encounter Details Date Type Department Care Team (Latest Contact Info) Description 12/08/2012 Abstract [facility] Medical Group Nikita Mares [...] on filedocumented in this encounter Care Teams Stroke Coordinator Relationship Specialty Start Date End Date Nikita Mares MD PCP - General 03/13/16 Zachery Ryan MD PCP - General 10/26/15 03/12/16 Zachery Ryan MD PCP - General 10/18/15 10/25/15 Zachery Ryan MD PCP - General 11/09/13 10/17/15 Zachery Ryan MD PCP - General 09/30/12 11/08/13 documented as of this encounter
--- OUTSIDE RECORDS SUMMARY | 2024-03-15 18:35 | XMS_ITS | Encounter Summary ---
Author Organization [facility] Address [address] [place] [address]. [place], [place] [address] [place], [place] [address] Care Team Providers Care Pan Washer Name Role Phone Nikita Goodwin MD Primary Care Provider Zachery Angel MD Primary Care Provider Zachery Toth MD Primary Care Provider Zachery Toth MD Primary Care Provider Jacquelin baker Encounter Details Date Type Department Care Team (Latest Contact Info) Description 11/09/2013 Abstract [facility] Medical Group Zachery Ryan MD [address] [place] [address] Social History Tobacco Use Types [...] PREG TEST NEG ?? TESTING PERFORMED AT [place], [place] MALICK RAMOS M.D., SHRINK PIT SUPERVISOR [facility] TO EPIC CONVERSION 11/09/2013 4:2 1 PM CDT 11/09/2013 4:21 PM CDT Narrative [facility] TO EPIC CONVERSION - 11/09/2013 4:22 PM CDT Result Communication: No patient communication needed at this time us Generic Conversion Md GOODWIN URINE ORDERABLES Final Result [facility] TO EPIC CONVERSION documented in this encounter Visit Diagnoses Not on filedocumented in this encounter Care Teams Pan Washer Relationship Specialty Start Date End Date Nikita Goodwin MD PCP - General 03/13/16 Zachery Ryan MD PCP - General 10/26/15 03/12/16 Zachery Ryan MD PCP - General 10/18/15 10/25/15 Zachery Ryan MD PCP - General 11/09/13 10/17/15 documented as of this encounter
--- OUTSIDE RECORDS SUMMARY | 2024-03-15 18:35 | XMS_ITS | Encounter Summary ---
Author Organization [facility] [place] Address [facility]6 [facility]. [place], [place] [address] [place] [address] Care Team Providers Care Boom Man Name Role Phone Md Generic Ximena GOODWIN [...] (Late st Contact Info) Description 04/29/2008 Abstract [facility] [address] [place] [address] Tanner Blas MD [address] [place] [phone] Social History Tobacco Use Types Packs/Day Years [...] on filedocumented in this encounter Care Teams Boom Man Relationship Specialty Start Date End Date Nikita [...]
--- OUTSIDE RECORDS SUMMARY | 2024-03-15 18:35 | XMS_ITS | Encounter Summary ---
Author Organization [facility] Address [facility]6 [facility]. [place], [place] [address] [place], [place] [phone] Care Team Providers Care Cargo Worker Name Role Phone Nikita Mares MD Primary Care Provider Zachery Angel MD Primary Care Provider UnavailZachery Charlton MD Primary Care Provider UnavailZachery Charlton MD Primary Care Provider UnavailZachery Charlton MD Primary Care Provider Unavaila samuel Encounter Details Date Type Department Care Team (Latest Contact Info) Description 05/26/2013 Abstract [facility] Medical Group Social History Tobacco [...] on filedocumented in this encounter Care Teams Cargo Worker Relationship Specialty Start Date End Date Nikita Mares MD PCP - General 03/13/16 Zachery Ryan MD PCP - General 10/26/15 03/12/16 Zachery Ryan MD PCP - General 10/18/15 10/25/15 Zachery Ryan MD PCP - General 11/09/13 10/17/15 Zachery Ryan MD PCP - General 09/30/12 11/08/13 documented as of this encounter
--- OUTSIDE RECORDS SUMMARY | 2024-03-15 18:35 | XMS_ITS | Encounter Summary ---
Author Organization [facility] Address [address] [place] [address]. [place], [place] [address] [place] [address] Care Team Providers Care Shot Grinder Operator Name Role Phone Nikita Mares MD [...] (Late st Contact Info) Description 04/19/2010 Abstract [facility] [address] [place] [address] Nikita Mares MD Social History Tobacco Use [...] site documented in this encounter Care Teams Shot Grinder Operator Relationship Specialty Start Date End [...]
--- OUTSIDE RECORDS SUMMARY | 2024-03-15 18:35 | XMS_ITS | Encounter Summary ---
Author Organization [facility] Address [facility]. [place], [place] [address] [place] [address] Care Team Providers Care Datacap Developer Name Role Phone Nikita Mares MD Primary Care Provider Zachery Angel MD Primary Care Provider Zachery Toth MD Primary Care Provider Zachery Toth MD Primary Care Provider UnavailZachery Charlton MD Primary Care Provider Jacquelin baker Encounter Details Date Type Department Care Team (Late st Contact Info) Description 12/04/2012 Abstract [facility] Medical [facility] Family Medicine - [place] [address] [place] [address] Zachery Ryan MD [address] [place] [address] Social History Tobacco Use Types Packs/Day Years [...] Reason For Visit Reason For Visit: [facility] Well[facility] Coordinator Complaint HM History of Present Illness HM, [...] problems, no family history of sudden or KS before age 50 and no family history [...] EVERY 4 TO 6 HOURS NEEDED; Therapy: [id number] to (Last Rx:04Dec2012) Ordered; For: Asthma (493.90); Rx By: Zachery Ryan; Dispense: 0 Days ; #:2 X 8.5 GM Inhaler; Refill:3; Send To: [facility] [id number] Asthma (493.90), Nasal Passage Blockage (Stuffiness) (478.19) ?? Zafirlukast 10 MG Oral Tablet; TAKE ONE TABLET BY MOUTH TWICE DAILY; Therapy: [id number] to (Last Rx:[id number]) Ordered; For: Asthma (493.90), Nasal Passage Blockage (Stuffiness) (478.19); Rx By: Zachery Ryan; Dispense: 0 Days ; #:60 Tablet; Refill: 2; Send To: [facility] [id number] Discussion/Summary Impression: No growth, development, elimination, feeding [...] Ryan M.D.; Dec 04 2012 5:56PM (Author) TIAN BLIND MECHANIC documented in this encounter Plan of Treatment Not on file documented as of this encounter Visit Diagnoses Not on filedocumented in this encounter Care Teams Datacap Developer Relationship Specialty Start Date End Date Nikita Mares MD PCP - General 03/13/16 Zachery Ryan MD PCP - General 10/26/15 03/12/16 Zachery Ryan MD PCP - General 10/18/15 10/25/15 Zachery Ryan MD PCP - General 11/09/13 10/17/15 Zachery Ryan MD PCP - General 09/30/12 11/08/13 documented as of this encounter
--- OUTSIDE RECORDS SUMMARY | 2024-03-15 18:35 | XMS_ITS | Encounter Summary ---
Author Organization [facility] Address [address] [place] [address]. [place], [place] [address] [place] [address] Care Team Providers Care Consumer Loan Manager Name Role Phone Nikita Mares MD Primary Care Provider Unavailable Zachery Ryan MD Primary Care Provider UnavailZachery Charlton MD Primary Care Provider Unavaila Zachery Forrester MD Primary Care Provider Unavailpio baker Encounter Details Date Type Department Care Team (Latest Contact Info) Description 11/19/2013 Abstract [facility] Medical Group Social History Tobacco Use [...] on filedocumented in this encounter Care Teams Consumer Loan Manager Relationship Specialty Start Date End Date Nikita Mares MD PCP - General 03/13/16 Zachery Ryan MD PCP - General 10/26/15 03/12/16 Zachery Ryan MD PCP - General 10/18/15 10/25/15 Zachery Ryan MD PCP - General 11/09/13 10/17/15 documented as of this encounter
--- OUTSIDE RECORDS SUMMARY | 2024-03-15 18:35 | XMS_ITS | Encounter Summary ---
Author Organization [facility] Address [facility]. [place], [place] [address] [place] [address] Care Team Providers Care Rn Lactation Consultant Name Role Phone Nikita Mares MD Primary Care Provider Zachery Angel MD Primary Care Provider Zachery Toth MD Primary Care Provider UnavailZachery Charlton MD Primary Care Provider Unavaila Zachery Forrester MD Primary Care Provider Unavaila ble Encounter Details Date Type Department Care Team (Late st Contact Info) Description 09/30/2012 Abstract [facility] [address] [place] [address] Tanner Blas MD [address] [address] Social History Tobacco Use Types [...] hand documented in this encounter Care Teams Rn Lactation Consultant Relationship Specialty Start Date End Date Nikita Mares MD PCP - General 03/13/16 Zachery Ryan MD PCP - General 10/26/15 03/12/16 Zachery Ryan MD PCP - General 10/18/15 10/25/15 Zachery Ryan MD PCP - General 11/09/13 10/17/15 Zachery Ryan MD PCP - General 09/30/12 11/08/13 documented as of this encounter
--- OUTSIDE RECORDS SUMMARY | 2024-03-15 18:35 | XMS_ITS | Encounter Summary ---
Author Organization [facility] Address [facility] [place], [place] [address] [place] [address] Care Team Providers Care Customer Account Executive Name Role Phone Nikita Mares MD Primary [...] (Late st Contact Info) Description 06/06/2012 Abstract [facility] Medical Group Family Medicine - [place] [address] [place] [address] Zachery Ryan MD [address] [place] [address] Social History Tobacco Use Types Packs/Day Years [...] 06/06/2012 1:2 3 PM CDT Growth Chart: [facility] (Girls, 2- 20 Years) documented in [...] TAKE 1 TABLET DAILY; Therapy: 06Jun2012 to (Evaluate:[id number]) Requested for: 06Jun2012; Last Rx:06Jun2012; Edited Ordered; For: Depression (311); Rx By: Zachery Ryan; Dispense: 30 Days ; #:30 Tablet; Refill: 3; Verified Transmission to [facility] [address] Discussion/Summary Discussion Summary Free Text: 1. Acute [...] Ryan M.D.; Jun 08 2012 2:34PM (Author) GIVER documented in this encounter Plan of Treatment Not on file documented as of this encounter Visit Diagnoses Not on filedocumented in this encounter Care Teams Customer Account Executive Relationship Specialty Start Date End Date Nikita [...]
--- OUTSIDE RECORDS SUMMARY | 2024-03-15 18:35 | XMS_ITS | Encounter Summary ---
Author Organization [facility] Address [facility]. [place], [place] [address] [place] [address] Care Team Providers Care Income Auditor Name Role Phone Nikita Mares MD Primary [...] (Late st Contact Info) Description 02/22/2012 Abstract [facility] Medical [facility] Family Medicine - [place] [address] [place] [address] Zachery Ryan MD [address] [place] [address] Social History Tobacco Use Types Packs/Day Years [...] Comments Blood Pressure 100/50 02/22/2012 10:54 AM HOD CARRIER Pulse 66 02/22/2012 10:54 AM HOD CARRIER Temperature - - Respiratory Rate - - Oxygen Saturation - - Inhaled Oxygen Concentration - - Weight 43.1 kg (95 lb) 02/22/2012 10:54 AM HOD CARRIER Height - - Body Mass Index - [...] Ryan M.D.; Feb 22 2012 11:50AM (Author) CARRIER documented in this encounter Plan of Treatment Not on file documented as of this encounter Visit Diagnoses Not on filedocumented in this encounter Care Teams Income Auditor Relationship Specialty Start Date End Date Nikita [...]
--- OUTSIDE RECORDS SUMMARY | 2024-03-15 18:35 | XMS_ITS | Encounter Summary ---
Author Organization [facility] Address [facility] [place], [place] [address] [place], [place] [address] Care Team Providers Care Braille Duplicating Machine Operator Name Role Phone Nikita Goodwin MD Primary Care Provider Zachery Angel MD Primary Care Provider Zachery Toth MD Primary Care Provider Zachery Toth MD Primary Care Provider Zachery Toth MD Primary Care Provider Unavaila Zachery Forrester MD Primary Care Provider Unavaila Zachery Forrester MD Primary Care Provider Unavaila ble Encounter Details Date Type Department Care Team (Latest Contact Info) Description 07/16/2012 Abstract [facility] Medical Group Nikita Goodwin MD Social History [...] BENEFIT FROM SURGICAL EVALUATION AT THE LOCAL [facility]. ACKNOWLEDGED. MA PLACED CALL AND PATIENT SET UP FOR APPOINTMENT WITH DR. JIMÉNEZ AT [facility] ON June AT 11:10 AM CALLED SPOKE WITH MOTHER ABOUT THIS. SHE ACKNOWLEDGED. SHE IS TO GET COPY OF U/S PRIOR TO VISIT TO [facility]. ATTEMPTED TO ANSWER ALL QUESTIONS. PEND FURTHER EVALUATION FROM GEN SURGERY AT [facility]. KESHIA GOODWIN Current Meds 1. Ketoconazole 2 % External Cream; APPLY A THIN LAYER TO AFFECTED AREA(S) TWICE DAILY; Therapy: [id number] to (Evaluate:[id number]) Requested for: 10Jul2012; Last Rx:[id number] Results/Data U/S breast Right: 07-15-12: 2 masses [...] Ryan M.D.; Jul 16 2012 4:01PM (Author) OR QUALITY CONTROL INSPECTOR * Generic Conversion MD Suzan - 07/16/2012 2:43 PM CDT Message Called [facility] regarding whether Dr. Kohler would be willing to see the patient for bresat bx. Dr. Kohler was out on vacation and per certified medical technician assistant will get back to me Saturday. [...] of what psychiatry suspects is bipolar disorder: [place], zyprexa, Geodone, Risperdal, Tegretol. Reviewed briefly the [...] LAYER TO AFFECTED AREA(S) TWICE DAILY; Therapy: 58Xvg4142 to (Evaluate:[id number]) Requested for: 10Jul2012; Last Rx:[id number] Results/Data U/S breast Right: 07-15-12: 2 masses [...] Ryan M.D.; Jul 16 2012 3:30PM (Author) OR QUALITY CONTROL INSPECTOR documented in this encounter Plan of Treatment Not on file documented as of this encounter Visit Diagnoses Not on filedocumented in this encounter Care Teams Braille Duplicating Machine Operator Relationship Specialty Start Date End [...]
--- OUTSIDE RECORDS SUMMARY | 2024-03-15 18:35 | XMS_ITS | Encounter Summary ---
Author Organization [facility] Address [address] [place] [address]. [place], [place] [address] [place] [address] Care Team Providers Care Apparel Pattern Maker Name Role Phone Nikita Goodwin MD Primary [...] GOODWIN Primary Care Provider Unavailable Md Generic iXmena GOODWIN Primary Care Provider Unavailable Md Generic Ximena GOODWIN Primary Care Provider Unavailable Md Generic Ximena GOODWIN Primary Care Provider Unavailable Encounter Details Date Type Department Care Team (Late st Contact Info) Description 08/26/2006 Abstract [facility] Emergency Room [address] [place] [address] Jeff Barfield MD Social History Tobacco Use [...] on filedocumented in this encounter Care Teams Apparel Pattern Maker Relationship Specialty Start Date End Date Nikita [...]
--- OUTSIDE RECORDS SUMMARY | 2024-03-15 18:35 | XMS_ITS | Encounter Summary ---
Author Organization [facility] Address [facility]. [place], [place] [address] [place], [place] [phone] Care Team Providers Care Chief Technologist Name Role Phone Nikita Mares MD Primary Care Provider Zachery Angel MD Primary Care Provider UnavailZachery Charlton MD Primary Care Provider UnavailZachery Charlton MD Primary Care Provider UnavailZachery Charlton MD Primary Care Provider Unavaila Zachery Forrester MD Primary Care Provider Unavaila Zachery Forrester MD Primary Care Provider Unavaila ble Encounter Details Date Type Department Care Team (Latest Contact Info) Description 07/23/2012 Abstract [facility] Medical Group Social History Tobacco [...] on filedocumented in this encounter Care Teams Chief Technologist Relationship Specialty Start Date End Date Nikita [...]
--- OUTSIDE RECORDS SUMMARY | 2024-03-15 18:35 | XMS_ITS | Encounter Summary ---
Author Organization [facility] Address [address] [place] [address]. [place], [place] [address] [place] [address] Care Team Providers Care Lead Worker Of Housekeeping And Laundry Name Role Phone Nikita Mares MD Primary Care Provider Zachery Angel MD Primary Care Provider Zachery Toth MD Primary Care Provider Zachery Toth MD Primary Care Provider Zachery Toth MD Primary Care Provider UnavailZachery Charlton MD Primary Care Provider Unavaila samuel Encounter Details Date Type Department Care Team (Late st Contact Info) Description 08/29/2012 Abstract [facility] Medical Group Family Medicine - [place] [address] [place] [address] Zachery Ryan MD [address] [place] [address] Social History Tobacco Use Types Packs/Day Years [...] 08/29/2012 1:1 4 PM CDT Growth Chart: [facility] (Girls, 2- 20 [...] AFFECTED AREA(S) TWICE DAILY; Therapy: 10Jul2012 to (Evaluate:[id number]) Requested for: 10Jul2012; Last Rx:10Jul2012 Ordered; For: Seborrheic Dermatitis Of The Scalp (690.18); Rx By: Zachery Ryan; Dispense: 15 Days ; #:1 X 30 GM Tube; Refill: 1; Verified Transmission to [facility] [address] 2. TEGretol 200 MG Oral Tablet; TAKE 1 TABLET TWICE DAILY; Therapy: (Recorded:29Aug2012) to Recorded; For: Depression (311); Dispense: 0 Days ; #: Sufficient Tablet; Refill: 0; Record; Last Updated By: Zachery Ryan Allergies 1. No Known Drug Allergies No Known Drug Allergies Vitals Vital Signs [Data Includes: Current Encounter] [id number] 01:14PM Temperature 98 F Heart Rate 70 [...] A Strep Screen NEG TESTING PERFORMED AT [place] MALICK RAMOS M.D., TOWER HOIST OPERATOR Specimen Type THROAT Assessment 1. Fever (Symptom) 780.60 2. Sore Throat 462 Plan 1. Amoxicillin 500 MG Oral Tablet; TAKE 1 TABLET 3 TIMES DAILY UNTIL GONE; Therapy: 29Aug2012 to (Evaluate:12Sep2012) Requested for: 29Aug2012; Last Rx:29Aug2012; Edited Ordered; For: Sore Throat (462); Rx By: Zachery Ryan; Dispense: 14 Days ; #:42 Tablet; Refill: 0; [facility] [address] Rapid Strep Group A Ag Screen Status: [...] Ryan M.D.; Aug 29 2012 4:56PM (Author) B OFFICE COORDINATOR documented in this encounter Plan of Treatment Not on file documented as of this encounter Procedures Procedure Name Priority Date/Time Associated Diagnosis Comments STREP A RAPID Routine 08/29/2012 2:03 PM CDT documented in this encounter Results * STREP A RAPID (08/29/2012 2:03 PM CDT) RAPID STREP TEST NEG ?? TESTING PERFORMED AT [place] MALICK RAMOS M.D., TOWER HOIST OPERATOR NEG [facility] TO EPIC CONVERSION SPECIMEN TYPE [...] on filedocumented in this encounter Care Teams Lead Worker Of Housekeeping And Laundry Relationship Specialty Start Date End Date Nikita Mares MD PCP - General 03/13/16 Zachery Ryan MD PCP - General 10/26/15 03/12/16 Zachery Ryan MD PCP - General 10/18/15 10/25/15 aZchery Ryan MD PCP - General 11/09/13 10/17/15 Zachery Ryan MD PCP - General 09/30/12 11/08/13 Zachery Ryan MD PCP - General 08/29/12 09/29/12 documented as of this encounter
--- OUTSIDE RECORDS SUMMARY | 2024-03-15 18:35 | XMS_ITS | Encounter Summary ---
Author Organization [facility] Address [facility]6 [facility]. [place], [place] [address] [place], [place] [id number] Care Team Providers Care Statement Distribution Clerk Name Role Phone Nikita Mares MD Primary Care Provider Zachery Angel MD Primary Care Provider Zachery Toth MD Primary Care Provider Zachery Toth MD Primary Care Provider Zachery Toth MD Primary Care Provider Jacquelin baker Encounter Details Date Type Department Care Team (Latest Contact Info) Description 2012 Abstract [facility] Medical Group Nikita Mares [...] Parent; Other; (Day) FYI: Pt's mom called [facility] on Saturday, September 26, 2012 to reschedule a biopsy for pt. She was informed she would hear something back on Saturday and has yet to hear anything. She just wanted to make sure you are aware of this. Signatures Electronically signed by : Zachery Ryan M.D.; 2012 7:51PM (Author) S PROGRAM COORDINATOR * Nikita Bueno Md, MD - 2012 3:03 PM CDT Message Message: Called pt's parent per Dr. Ryan request: pt was seen at [facility] on 09/30/12 for bruising and swelling of [...] : Michelle Cobb, ; 2012 3:06PM (Author) S PROGRAM COORDINATOR documented in this encounter Plan of Treatment Not on file documented as of this encounter Visit Diagnoses Not on filedocumented in this encounter Care Teams Statement Distribution Clerk Relationship Specialty Start Date End Date Nikita Mares MD PCP - General 03/13/16 Zachery Ryan MD PCP - General 10/26/15 03/12/16 Zachery Ryan MD PCP - General 10/18/15 10/25/15 Zachery Ryan MD PCP - General 11/09/13 10/17/15 Zachery Ryan MD PCP - General 09/30/12 11/08/13 documented as of this encounter
--- OUTSIDE RECORDS SUMMARY | 2024-03-15 18:35 | XMS_ITS | Encounter Summary ---
Author Organization [facility] Address [facility]6 [facility]. [place], [place] [address] [place], [place] [address] Care Team Providers Care Fabric Lay Out Worker Name Role Phone Nikita Mares MD Primary Care Provider Zachery Angel MD Primary Care Provider UnavailZachery Charlton MD Primary Care Provider UnavailZachery Charlton MD Primary Care Provider UnavailZachery Charlton MD Primary Care Provider Unavaila Zachery Forrester MD Primary Care Provider Unavaila Zachery Forrester MD Primary Care Provider Unavaila ble Encounter Details Date Type Department Care Team (Latest Contact Info) Description 07/30/2012 Abstract [facility] Medical Group [...] on filedocumented in this encounter Care Teams Fabric Lay Out Worker Relationship Specialty Start Date End Date [...]
--- OUTSIDE RECORDS SUMMARY | 2024-03-15 18:35 | XMS_ITS | Encounter Summary ---
Author Organization [facility] Address [facility]6 [facility] [place], [place] [address] [place] [address] Care Team Providers Care Refueling Ramp Attendant Name Role Phone Nikita Mares MD Primary [...] (Late st Contact Info) Description 03/28/2011 Emergency [facility] [place] [address] Edith Delarosa MD [address] [place] [place], [place] [phone] Social History Tobacco Use Types Packs/Day Years [...] Headache documented in this encounter Care Teams Refueling Ramp Attendant Relationship Specialty Start Date End Date [...]
--- OUTSIDE RECORDS SUMMARY | 2024-03-15 18:35 | XMS_ITS | Encounter Summary ---
Author Organization [facility] Address [facility]6 [facility]. [place], [place] [address] [place], [place] [phone] Care Team Providers Care Flight Engineer Name Role Phone Nikita Mares MD Primary Care Provider Zachery Angel MD Primary Care Provider UnavailZachery Charlton MD Primary Care Provider UnavailZachery Charlton MD Primary Care Provider UnavailZachery Charlton MD Primary Care Provider Unavaila Zachery Forrester MD Primary Care Provider Unavaila Zachery Forrester MD Primary Care Provider Unavaila ble Encounter Details Date Type Department Care Team (Latest Contact Info) Description 07/25/2012 Abstract [facility] Medical Group Social History Tobacco [...] on filedocumented in this encounter Care Teams Flight Engineer Relationship Specialty Start Date End Date [...]
--- OUTSIDE RECORDS SUMMARY | 2024-03-15 18:35 | XMS_ITS | Encounter Summary ---
Author Organization [facility] Address [facility]6 [facility]. [place], [place] [address] [place] [address] Care Team Providers Care Body Sander Name Role Phone Nikita Mares MD Primary [...] (Late st Contact Info) Description 04/22/2011 [facility] [address] [place] [address] Ayush Mitchell MD Social History Tobacco Use [...] Dysuria documented in this encounter Care Teams Body Sander Relationship Specialty Start Date End Date Nikita [...]
--- OUTSIDE RECORDS SUMMARY | 2024-03-15 18:35 | XMS_ITS | Encounter Summary ---
Author Organization [facility] Address [facility]6 [facility]. [place], [place] [address] [place] [address] Care Team Providers Care Subcontract Manager Name Role Phone Nikita Mares MD [...] Contact Info) Description 12/18/[address] [facility] [address] [place] [address] Nikita Mares MD Social History Tobacco Use [...] Dysuria documented in this encounter Care Teams Subcontract Manager Relationship Specialty Start Date End Date [...]
--- OUTSIDE RECORDS SUMMARY | 2024-03-15 18:35 | XMS_ITS | Encounter Summary ---
Author Organization [facility] Address [address] [place] [address]. [place], [place] [address] [place] [address] Care Team Providers Care Water And Fire Technician Name Role Phone Nikita Goodwin MD Primary Care Provider Zachery Angel MD Primary Care Provider Zachery Toth MD Primary Care Provider Zachery Toth MD Primary Care Provider Jacquelin baker Encounter Details Date Type Department Care Team (Latest Contact Info) Description 11/09/2013 Abstract [facility] Medical Group Zachery Ryan MD [address] [place] [address] Social History Tobacco Use Types [...] CA WH BLOOD (11/09/2013 3:55 PM CDT) [facility] Signature GLUCOSE POC 92 70 - 99 mg/dL [facility] TO EPIC CONVERSION Comment: Result Comment: ?? TESTING PERFORMED AT [place], [place] MALICK RAMOS M.D., LAYER OUT BUN 8 8 - 23 mg/dL [facility] [...] on filedocumented in this encounter Care Teams Water And Fire Technician Relationship Specialty Start Date End Date Nikita Goodwin MD PCP - General 03/13/16 Zachery Ryan MD PCP - General 10/26/15 03/12/16 Zachery Ryan MD PCP - General 10/18/15 10/25/15 Zachery Ryan MD PCP - General 11/09/13 10/17/15 documented as of this encounter
--- OUTSIDE RECORDS SUMMARY | 2024-03-15 18:35 | XMS_ITS | Encounter Summary ---
Author Organization [facility] Address [facility]6 [facility]. [place], [place] [address] [place], [place] [address] Care Team Providers Care Entry Specialist Name Role Phone Nikita Mares MD Primary Care Provider Zachery Angel MD Primary Care Provider UnavailZachery Charlton MD Primary Care Provider UnavailZachery Charlton MD Primary Care Provider UnavailZachery Charlton MD Primary Care Provider Unavaila samuel Encounter Details Date Type Department Care Team (Latest Contact Info) Description 12/05/2012 Abstract [facility] Medical [facility] Social History Tobacco Use Types [...] on filedocumented in this encounter Care Teams Entry Specialist Relationship Specialty Start Date End Date Nikita Mares MD PCP - General 03/13/16 Zachery Ryan MD PCP - General 10/26/15 03/12/16 Zachery Ryan MD PCP - General 10/18/15 10/25/15 Zachery Ryan MD PCP - General 11/09/13 10/17/15 Zachery Ryan MD PCP - General 09/30/12 11/08/13 documented as of this encounter
--- OUTSIDE RECORDS SUMMARY | 2024-03-15 18:35 | XMS_ITS | Encounter Summary ---
Author Organization [facility] Address [facility]6 [facility]. [place], [place] [address] [place] [address] Care Team Providers Care Underwriting Service Representative Name Role Phone Nikita Mares MD [...] (Late st Contact Info) Description 07/10/2012 Abstract [facility] Medical Group Family Medicine - [place] [address] [place] [address] Zachery Ryan MD [address] [place] [address] Social History Tobacco Use Types Packs/Day Years [...] 07/10/2012 1:1 0 PM CDT Growth Chart: [facility] (Girls, 2- 20 Years) documented in this encounter Progress Notes * Generic Conversion MD Suzan - 07/10/2012 1:15 PM CDT Reason For Visit Rash On Face Reason For Visit: Acute Visit History of Present Illness HPI Free Text: 1. Rash: mild rough itchy slightly red rash over right confucianism for about 1 month without any improvement [...] 2-3 inches in diameter over the right confucianism associated with flaking skin. suspect seborrheic dermatitis. Assessment 1. Seborrheic Dermatitis Of The Scalp 690.18 2. Lump Or Mass In The Right Breast 611.72 Plan 1. US Breast Rt Requested for: 10Jul2012 Ordered JERO; For: Lump Or Mass In The Right Breast (611.72); Ordered By: Zachery Ryan Perform: [facility] Radiology Order Comments: right breast 7-8 o'clock 2cm hard mass in 11 year old girl menstruating Due: 11Jul2012 2. Ketoconazole 2 % External Cream; APPLY A THIN LAYER TO AFFECTED AREA(S) TWICE DAILY; Therapy: 10Jul2012 to (Evaluate:[id number]) Requested for: 10Jul2012; Last Rx:10Jul2012; Edited Ordered; For: Seborrheic Dermatitis Of The Scalp (690.18); Rx By: Zachery Ryan; Dispense: 15 Days ; #:1 X 30 GM Tube; Refill: 1; Verified Transmission to [facility] 13930 Discussion/Summary Discussion Summary Free Text: 1. Skin [...] Ryan M.D.; Jul 10 2012 1:46PM (Author) OR UI DESIGNER documented in this encounter Plan of Treatment Not on file documented as of this encounter Visit Diagnoses Not on filedocumented in this encounter Care Teams Underwriting Service Representative Relationship Specialty Start Date End Date [...]
--- OUTSIDE RECORDS SUMMARY | 2024-03-15 18:35 | XMS_ITS | Encounter Summary ---
Author Organization [facility] Address [address] [place] [address]. [place], [place] [address] [place], [place] [phone] Care Team Providers Care Metal Machine Setter Name Role Phone Nikita Mares MD Primary Care Provider Unavailable Zachery Ryan MD Primary Care Provider UnavailZachery Charlton MD Primary Care Provider Unavaila Zachery Forrester MD Primary Care Provider Unavaila samuel Encounter Details Date Type Department Care Team (Late st Contact Info) Description 11/09/2013 Abstract [facility] [place] [address] Zachery Ryan MD Social History Tobacco Use [...] Pallor documented in this encounter Care Teams Metal Machine Setter Relationship Specialty Start Date End Date Nikita Mares MD PCP - General 03/13/16 Zachery Ryan MD PCP - General 10/26/15 03/12/16 Zachery Ryan MD PCP - General 10/18/15 10/25/15 Zachery Ryan MD PCP - General 11/09/13 10/17/15 documented as of this encounter
--- OUTSIDE RECORDS SUMMARY | 2024-03-15 18:35 | XMS_ITS | Encounter Summary ---
Author Organization [facility] Address [address] [place] [address]. [place], [place] [address] [place] [address] Care Team Providers Care Certified Respiratory Therapist Name Role Phone Nikita Goodwin MD Primary Care Provider Unavailable Zachery Ryan MD Primary Care Provider Zacehry Toth MD Primary Care Provider UnavailZachery Charlton MD Primary Care Provider Zachery Toth MD Primary Care Provider UnavailZachery Charlton MD Primary Care Provider UnavailZachery Charlton MD Primary Care Provider UnavailNikita hendrickson Md, MD Primary Care Provider Unavailable Nkiita Goodwin MD Primary Care Provider Unavailable Nikita Goodwin MD Primary Care Provider Unavailable Md Generic Ximena GOODWIN Primary Care Provider Unavailable Encounter Details Date Type Department Care Team (Late st Contact Info) Description 01/20/2011 Emergency [facility] [place] [address] Janie Cadet MD [address] [place] [address] [address] [place], [place] [address] Social History Tobacco Use Types Packs/Day Years [...] disturbance documented in this encounter Care Teams Certified Respiratory Therapist Relationship Specialty Start Date End Date Nikita [...]
--- OUTSIDE RECORDS SUMMARY | 2024-03-15 18:35 | XMS_ITS | Encounter Summary ---
Author Organization [facility] Address [address] [place] [address]. [place], [place] [address] [place] [address] Care Team Providers Care Staff Nurse Name Role Phone Nikita Mares MD Primary Care Provider Unavailable Zachery Ryan MD Primary Care Provider Unavaila Zachery Forrester MD Primary Care Provider UnavailZachery Charlton MD Primary Care Provider Unavaila ble Zachery Ryan MD Primary Care Provider Unavaila Zachery Forrester MD Primary Care Provider Unavaila ble Encounter Details Date Type Department Care Team (Late st Contact Info) Description 08/29/2012 Abstract [place] [address] Zachery Ryan MD Social History Tobacco Use [...] condition documented in this encounter Care Teams Staff Nurse Relationship Specialty Start Date End Date Nikita Mares MD PCP - General 03/13/16 Zachery Ryan MD PCP - General 10/26/15 03/12/16 Zachery Ryan MD PCP - General 10/18/15 10/25/15 Zachery Ryna MD PCP - General 11/09/13 10/17/15 Zachery Ryan MD PCP - General 09/30/12 11/08/13 Zachery Ryan MD PCP - General 08/29/12 09/29/12 documented as of this encounter
--- OUTSIDE RECORDS SUMMARY | 2024-03-15 18:35 | XMS_ITS | Encounter Summary ---
Author Organization [facility] Address [address] [place] [address]. [place], [place] [address] [place] [address] Care Team Providers Care Maintenance Machine Repairer Name Role Phone Nikita Goodwin MD Primary Care Provider Zachery Angel MD Primary Care Provider Zachery Toth MD Primary Care Provider Zachery Toth MD Primary Care Provider UnavailZachery Charlton MD Primary Care Provider Unavaila samuel Encounter Details Date Type Department Care Team (Late st Contact Info) Description 11/04/2013 Abstract [facility] Medical Group Family Medicine - [place] [address] [place] [address] Zachery Ryan MD [address] [place] [address] Social History Tobacco Use Types Packs/Day Years [...] 11/04/2013 11: 02 AM CDT Growth Chart: [facility] (Girls, 2- 20 Years) documented in this [...] heavy on the first 3 days and trauma program manager progressively on the last 2 days. LMP [...] EVERY 4 TO 6 HOURS NEEDED; Therapy: [id number] to (Last Rx:[id number]) Requested for: [id number] Ordered Rx By: Zachery Ryan; Dispense: 0 Days ; #:2 X 8.5 GM Inhaler; Refill: 3; For: Asthma; RENEE = N; Verified Transmission to [facility] [id number] 2. TEGretol 200 MG Oral Tablet; TAKE 3 TABLET Daily; Therapy: (Recorded:26May2013) to Recorded Dispense: 0 Days ; #: Sufficient Tablet; Refill: 0; For: Depression; RENEE = N; Record; Last Updated By: Ruth Flores; 05/26/2013 1:44:36 PM 3. Zafirlukast 10 MG Oral Tablet; TAKE ONE TABLET BY MOUTH TWICE DAILY; Therapy: [id number] to (Last Rx:[id number]) Requested for: [id number] Ordered Rx By: Zachery Ryan; Dispense: 0 Days ; #:60 Tablet; Refill: 2; For: Asthma, Congested nose; RENEE = N; Verified Transmission to [facility] [id number] Allergies 1. No Known Drug Allergies Recorded By: Enid Kaiser; 02/22/2012 11:04:54 AM Vitals Vital Signs [Data Includes: Current Encounter] Recorded by : Elier Ospina at [id number] 11:02AM Temperature 98.4 F Heart Rate 78 [...] respiratory infection; RENEE = N; Send To: [facility] [id number] Acute upper respiratory infection, Headache 2. Start: Amoxicillin 875 MG Oral Tablet; TAKE 1 TABLET EVERY 12 HOURS DAILY Rx By: Zachery Ryan; Dispense: 14 Days ; #:28 Tablet; Refill: 0; For: Acute upper respiratory infection, Headache; RENEE = N; Send To: [facility] 40702 Pallor 3. CBC W Differential Status: Active Requested for: [id number] Perform: [facility] Due: [id number]; Ordered; For: Pallor; Ordered By: Zachery Ryan [...] Zachery Ryan M.D.; Nov 04 2013 11:21AM ONLINE AFFILIATE MARKETING MANAGER (Author) documented in this encounter Plan of Treatment Not on file documented as of this encounter Procedures Procedure Name Priority Date/Time Associated Diagnosis Comments CBC W/DIFF AUTOMATED Routine 11/09/2013 3:55 PM CDT documented in this encounter Results * (ABNORMAL) CBC W/DIFF AUTOMATED (11/09/2013 3:55 PM CDT) Pathologist [facility] WBC 7.0 4.8 - 10.8 X10'3/uL [facility] TO EPIC CONVERSION Comment: Result Comment: ?? TESTING PERFORMED AT [place], [place] MALICK RAMOS M.D., HISTOLOGY TECHNOLOGIST RBC 4.80 4.20 - 5.40 X10'6/uL [facility] [...] on filedocumented in this encounter Care Teams Maintenance Machine Repairer Relationship Specialty Start Date End Date Nikita Goodwin MD PCP - General 03/13/16 Zachery Ryan MD PCP - General 10/26/15 03/12/16 Zachery Ryan MD PCP - General 10/18/15 10/25/15 Zachery Ryan MD PCP - General 11/09/13 10/17/15 Zachery Ryan MD PCP - General 09/30/12 11/08/13 documented as of this encounter
--- OUTSIDE RECORDS SUMMARY | 2024-03-15 18:35 | XMS_ITS | Encounter Summary ---
Author Organization [facility] Address [facility] [place], [place] [address] [address] Care Team Providers Care License Clerk Name Role Phone Nikita Mares MD [...] (Late st Contact Info) Description 09/17/2007 Abstract [facility] Emergency Room [address] [place] [address] Nikita Mares MD Social History Tobacco Use [...] on filedocumented in this encounter Care Teams License Clerk Relationship Specialty Start Date End Date [...]
--- OUTSIDE RECORDS SUMMARY | 2024-03-15 18:35 | XMS_ITS | Encounter Summary ---
Author Organization [facility] Address [address] [place] [address]. [place], [place] [address] [place], [place] [address] Care Team Providers Care Front End Drupal Developer Name Role Phone Nikita Mares MD Primary Care Provider Zachery Angel MD Primary Care Provider Zachery Toth MD Primary Care Provider UnavailZachery Charlton MD Primary Care Provider Jacquelin baker Encounter Details Date Type Department Care Team (Late st Contact Info) Description 11/09/2013 Abstract [facility] Medical Group Family Medicine - [place] [address] [place] [address] Zachery Ryan MD [address] [place] [address] Social History Tobacco Use Types Packs/Day Years [...] on filedocumented in this encounter Care Teams Front End Drupal Developer Relationship Specialty Start Date End Date Nikita Mares MD PCP - General 03/13/16 Zachery Ryan MD PCP - General 10/26/15 03/12/16 Zachery Ryan MD PCP - General 10/18/15 10/25/15 Zachery Ryan MD PCP - General 11/09/13 10/17/15 documented as of this encounter
--- OUTSIDE RECORDS SUMMARY | 2024-03-15 18:35 | XMS_ITS | Encounter Summary ---
Author Organization [facility] Address Critical access hospital6 [facility]. [place], [place] [address] [place] [address] Care Team Providers Care Electrogalvanizing Machine Operator Name Role Phone Md Generic Ximena GOODWIN [...] st Contact Info) Description 09/08/[address] [facility] [address] [place] [address] Tanner Blas MD [address] [place] [phone] Social History Tobacco Use Types Packs/Day Years [...] on filedocumented in this encounter Care Teams Electrogalvanizing Machine Operator Relationship Specialty Start Date End [...]
--- OUTSIDE RECORDS SUMMARY | 2024-03-15 18:35 | XMS_ITS | Encounter Summary ---
Author Organization [facility] Address [facility]6 [facility]. [place], [place] [address] [place] [address] Care Team Providers Care Mica Paster Name Role Phone Nikita Mares MD Primary [...] (Late st Contact Info) Description 10/31/2006 Abstract [facility] Emergency Room [address] [place] [address] Nikita Mares MD Social History Tobacco Use [...] on filedocumented in this encounter Care Teams Mica Paster Relationship Specialty Start Date End Date Nikita [...]
--- OUTSIDE RECORDS SUMMARY | 2024-03-15 18:35 | XMS_ITS | Encounter Summary ---
Author Organization [facility] Address Critical access hospital6 [facility]. [place], [place] [address] [place] [address] Care Team Providers Care Operator Control Room Name Role Phone Nikita Mares MD Primary Care Provider Zachery Angel MD Primary Care Provider Zachery Toth MD Primary Care Provider Zachery Toth MD Primary Care Provider Zachery Toth MD Primary Care Provider Zachery Toth MD Primary Care Provider UnavailZachery Charlton MD Primary Care Provider Unavaila ble Encounter Details Date Type Department Care Team (Late st Contact Info) Description 07/15/2012 Abstract [facility] Diagnostic Imaging [address] [place] [address] Zachery Ryan MD Social History Tobacco Use [...] breast documented in this encounter Care Teams Operator Control Room Relationship Specialty Start Date End Date Nikita [...]
--- OUTSIDE RECORDS SUMMARY | 2024-03-15 18:36 | XMS_ITS | Encounter Summary ---
Author Organization [facility] Address [address] [place] [address]. [place], [place] [address] [place] [address] Care Team Providers Care Associate Professor Of Literature Name Role Phone Nikita Mares MD Primary [...] (Late st Contact Info) Description 06/07/2005 Abstract [facility] [address] [place], [place] [address] Nikita Mares MD Social History Tobacco Use [...] on filedocumented in this encounter Care Teams Associate Professor Of Literature Relationship Specialty Start Date End Date Nikita [...]
--- OUTSIDE RECORDS SUMMARY | 2024-03-15 18:36 | XMS_ITS | Encounter Summary ---
Author Organization [facility] Address [address] [place] [address]. [place], [place] [address] [place] [address] Care Team Providers Care Plant Health Care Technician Name Role Phone Nikita Goodwin MD Primary Care Provider Unavailable Zachery Ryan MD Primary Care Provider UnavailZachery Chralton MD Primary Care Provider UnavailZachery Charlton MD [...] Info) Description 1998 [place] [address] Nikita Goodwin MD Social History Tobacco Use [...] on filedocumented in this encounter Care Teams Plant Health Care Technician Relationship Specialty Start Date End Date [...]
--- OUTSIDE RECORDS SUMMARY | 2024-03-15 18:36 | XMS_ITS | Encounter Summary ---
Author Organization [facility] Address [address] [place] [address]. [place], [place] [address] [place] [address] Care Team Providers Care Talent Scout Name Role Phone Nikita Mares MD Primary [...] (Late st Contact Info) Description 03/12/2001 Abstract [facility] [address] [place] [address] Nikita Mares MD Social History [...] on filedocumented in this encounter Care Teams Talent Scout Relationship Specialty Start Date End Date Nikita [...]
--- OUTSIDE RECORDS SUMMARY | 2024-03-15 18:36 | XMS_ITS | Encounter Summary ---
Author Organization [facility] Address [address] [place] [address]. [place], [place] [address] [place] [address] Care Team Providers Care Aircraft Instrument Repairer Name Role Phone Nikita Mares MD Primary [...] (Late st Contact Info) Description 11/12/2003 Abstract [place] [address] [place], [place] [id number] Nikita Mares MD Social History Tobacco Use [...] on filedocumented in this encounter Care Teams Aircraft Instrument Repairer Relationship Specialty Start Date End Date [...]
--- OUTSIDE RECORDS SUMMARY | 2024-03-15 18:36 | XMS_ITS | Encounter Summary ---
Author Organization [facility] Address [address] [place] [address]. [place], [place] [address] [place] [address] Care Team Providers Care Certified Personal Trainer Name Role Phone Nikita Goodwin MD Primary [...] Info) Description 02/05/2001 Abstract [place] [address] Nikita Goodwin MD Social History Tobacco Use [...] on filedocumented in this encounter Care Teams Certified Personal Trainer Relationship Specialty Start Date End Date Nikita [...]
--- OUTSIDE RECORDS SUMMARY | 2024-03-15 18:36 | XMS_ITS | Encounter Summary ---
Author Organization [facility] Address [address] [place] [address]. [place], [place] [address] [place] [address] Care Team Providers Care Utility Division Project Manager Name Role Phone Nikita Mares MD [...] (Late st Contact Info) Description 05/10/2005 Abstract [facility] [address] [place], [place] [address] Nikita Mares MD Social History Tobacco Use [...] on filedocumented in this encounter Care Teams Utility Division Project Manager Relationship Specialty Start Date End [...]
--- OUTSIDE RECORDS SUMMARY | 2024-03-15 18:36 | XMS_ITS | Encounter Summary ---
Author Organization [facility] Address [address] [place] [address]. [place], [place] [address] [place] [address] Care Team Providers Care Hand Sizer Name Role Phone Nikita Goodwin MD Primary [...] (Late st Contact Info) Description 09/19/2003 Abstract [place] [address] [place] [address] Feroz Watkins MD Social History Tobacco Use [...] filedocumented in this encounter Care Teams Hand Sizer Relationship Specialty Start Date End Date Nikita [...]
--- OUTSIDE RECORDS SUMMARY | 2024-03-15 18:36 | XMS_ITS | Encounter Summary ---
Author Organization [facility] Address [address] [place] [address]. [place], [place] [address] [place] [address] Care Team Providers Care Wellness Director Name Role Phone Nikita Goodwin MD [...] (Late st Contact Info) Description 12/16/1999 Abstract [facility] [address] [place] [address] Orquidea Sherwood MD [address] [address] Social History Tobacco Use Types Packs/Day Years [...] on filedocumented in this encounter Care Teams Wellness Director Relationship Specialty Start Date End Date [...]
--- OUTSIDE RECORDS SUMMARY | 2024-03-15 18:36 | XMS_ITS | Encounter Summary ---
Author Organization [facility] Address [address] [place] [address]. [place], [place] [address] [place] [address] Care Team Providers Care Parts Sales Representative Name Role Phone Nikita Mares MD [...] (Late st Contact Info) Description 12/26/2000 Abstract [facility] [address] [place], [place] [address] Nikita Mares MD Social History Tobacco Use [...] on filedocumented in this encounter Care Teams Parts Sales Representative Relationship Specialty Start Date End [...]
--- OUTSIDE RECORDS SUMMARY | 2024-03-15 18:36 | XMS_ITS | Encounter Summary ---
Author Organization [facility] Address [address] [place] [address]. [place], [place] [address] [place] [address] Care Team Providers Care Store Director Name Role Phone Nikita Goodwin MD [...] (Late st Contact Info) Description 04/01/2000 Emergency [facility] [place] [address] Orquidea Sherwood MD [address] [address] Social History Tobacco Use Types Packs/Day Years [...] on filedocumented in this encounter Care Teams Store Director Relationship Specialty Start Date End Date [...]
--- OUTSIDE RECORDS SUMMARY | 2024-03-15 18:36 | XMS_ITS | Encounter Summary ---
Author Organization [facility] Address [facility] [place], [place] [address] [place] [address] Care Team Providers Care Russian History Professor Name Role Phone Nikita Goodwin MD Primary [...] (Late st Contact Info) Description 02/21/2002 Emergency [facility] [place] [address] Ciara Felix MD [address] [facility] [address] [place] [address] Social History Tobacco Use Types Packs/Day Years [...] on filedocumented in this encounter Care Teams Russian History Professor Relationship Specialty Start Date End Date Nikita Goowdin MD PCP - General 03/13/16 Zachery Ryan, [...]
--- OUTSIDE RECORDS SUMMARY | 2024-03-15 18:36 | XMS_ITS | Encounter Summary ---
Author Organization [facility] Address [address] [place] [address]. [place], [place] [address] [place] [address] Care Team Providers Care Electric Razor Mechanic Name Role Phone Nikita Mares MD Primary Care Provider Unavailable aZchery Ryan MD Primary Care Provider UnavailZachery Charlton [...] (Late st Contact Info) Description 08/08/2004 Abstract [place] [address] [place], [place] [address] Nikita Mares MD Social History Tobacco Use [...] on filedocumented in this encounter Care Teams Electric Razor Mechanic Relationship Specialty Start Date End Date Nikita [...]
--- OUTSIDE RECORDS SUMMARY | 2024-03-15 18:36 | XMS_ITS | Encounter Summary ---
Author Organization [facility] Address [address] [place] [address]. [place], [place] [address] [place] [address] Care Team Providers Care Signal Inspector Name Role Phone Nikita Goodwin MD Primary [...] (Late st Contact Info) Description 01/04/2003 Emergency [facility] [place] [address] Rk Norwood MD [address] [facility] [place] [address] Social History Tobacco Use Types Packs/Day Years [...] on filedocumented in this encounter Care Teams Signal Inspector Relationship Specialty Start Date End Date [...]
--- OUTSIDE RECORDS SUMMARY | 2024-03-15 18:36 | XMS_ITS | Encounter Summary ---
Author Organization [facility] Address [address] [place] [address]. [place], [place] [address] [place] [address] Care Team Providers Care Fisher Seal Name Role Phone Nikita Mares MD Primary [...] (Late st Contact Info) Description 10/27/2004 Abstract [place] [address] [place] [address] Nikita Mares MD Social History [...] on filedocumented in this encounter Care Teams Fisher Seal Relationship Specialty Start Date End Date Nikita [...]
--- OUTSIDE RECORDS SUMMARY | 2024-03-15 18:36 | XMS_ITS | Encounter Summary ---
Author Organization [facility] Address [address] [place] [address]. [place], [place] [address] [place] [address] Care Team Providers Care Sprayer Leather Name Role Phone Nikita Mares MD Primary [...] (Late st Contact Info) Description 06/19/2001 Abstract [place] [address] [place], [place] 387[address] Nikita Mares MD Social History Tobacco Use [...] on filedocumented in this encounter Care Teams Sprayer Leather Relationship Specialty Start Date End Date Nikita [...]
--- OUTSIDE RECORDS SUMMARY | 2024-03-15 18:36 | XMS_ITS | Encounter Summary ---
Author Organization [facility] Address [facility] [place], [place] [address] [place] [address] Care Team Providers Care Assistant County Attorney Name Role Phone Nikita Mares MD Primary [...] (Late st Contact Info) Description 04/08/2002 Emergency [facility] [place] [address] Nikita Mares MD Social History Tobacco Use [...] on filedocumented in this encounter Care Teams Assistant County Attorney Relationship Specialty Start Date End Date Nikita [...]
--- OUTSIDE RECORDS SUMMARY | 2024-03-15 18:36 | XMS_ITS | Encounter Summary ---
Author Organization [facility] Address [address] [place] [address]. [place], [place] [address] [place] [address] Care Team Providers Care Softwood Faller Name Role Phone Nikita Goodwin MD Primary [...] (Late st Contact Info) Description 06/21/2001 Emergency [facility] [place] [address] Mindy Quintanilla, DO [address] [place] [address] Social History Tobacco Use Types Packs/Day Years [...] on filedocumented in this encounter Care Teams Softwood Faller Relationship Specialty Start Date End Date Nikita [...]
--- OUTSIDE RECORDS SUMMARY | 2024-03-15 18:36 | XMS_ITS | Encounter Summary ---
Author Organization [facility] Address [facility]. [place], [place] [address] [place] [address] Care Team Providers Care Cash Applications Representative Name Role Phone Nikita Mares MD [...] (Late st Contact Info) Description 01/26/2005 Emergency [facility] [place] [address] Nikita Mares MD Social History Tobacco Use [...] on filedocumented in this encounter Care Teams Cash Applications Representative Relationship Specialty Start Date End Date [...]
--- OUTSIDE RECORDS SUMMARY | 2024-03-15 18:36 | XMS_ITS | Encounter Summary ---
Author Organization [facility] Address [address] [place] [address]. [place], [place] [address] [place] [address] Care Team Providers Care Contract Administrator Name Role Phone Md Generic Ximena GOODWIN Primary Care Provider Unavailable Zachery Ryan MD Primary Care Provider UnavailZachery Charlton MD Primary Care Provider UnavailZachery Charlton MD Primary Care Provider UnavailZachery Charlton MD Primary Care Provider UnavailZachery Charlton MD Primary Care Provider UnavailZachery Charlton MD Primary Care Provider Unavailpio bakre Md Generic Ximena GOODWIN Primary Care Provider [...] Info) Description 04/06/1999 Abstract [place] [address] Orquidea Sherwood MD [address] [address] Social History Tobacco Use Types Packs/Day Years [...] on filedocumented in this encounter Care Teams Contract Administrator Relationship Specialty Start Date End Date [...]
--- OUTSIDE RECORDS SUMMARY | 2024-03-15 18:36 | XMS_ITS | Encounter Summary ---
Author Organization [facility] Address [address] [place] [address]. [place], [place] [address] [place] [address] Care Team Providers Care Dormitory Maid Name Role Phone Md Generic Ximena GOODWIN [...] (Late st Contact Info) Description 02/10/1999 Abstract [facility] [address] [place] [address] Orquidea Sherwood MD [address] [address] Social History Tobacco Use Types Packs/Day Years [...] on filedocumented in this encounter Care Teams Dormitory Maid Relationship Specialty Start Date End Date Nikita [...]
--- OUTSIDE RECORDS SUMMARY | 2024-03-15 18:36 | XMS_ITS | Encounter Summary ---
Author Organization [facility] Address [address] [place] [address]. [place], [place] [address] [place] [address] Care Team Providers Care Coverstitch Binder Name Role Phone Nikita Mares MD Primary [...] (Late st Contact Info) Description 10/29/2002 Abstract [place] [address] [place] [address] Nikita Mares MD Social History [...] on filedocumented in this encounter Care Teams Coverstitch Binder Relationship Specialty Start Date End Date [...]
--- OUTSIDE RECORDS SUMMARY | 2024-03-15 18:36 | XMS_ITS | Encounter Summary ---
Author Organization [facility] Address [address] [place] [address]. [place], [place] [address] [place] [address] Care Team Providers Care Demonstrator Sales Name Role Phone Nikita Goodwin MD Primary [...] (Late st Contact Info) Description 07/20/1999 Abstract [facility] [address] [place] [address] Orquidea Sherwood MD [address] [address] Social History Tobacco Use Types Packs/Day Years [...] on filedocumented in this encounter Care Teams Demonstrator Sales Relationship Specialty Start Date End Date Nikita [...]
--- OUTSIDE RECORDS SUMMARY | 2024-03-15 18:36 | XMS_ITS | Encounter Summary ---
Author Organization [facility] Address [facility]. [place], [place] [address] [place] [address] Care Team Providers Care Lease Operator Name Role Phone Nikita Mares MD [...] (Late st Contact Info) Description 10/01/2004 Emergency [facility] [place] [address] Nikita Mares MD Social History Tobacco Use [...] on filedocumented in this encounter Care Teams Lease Operator Relationship Specialty Start Date End Date [...]
--- OUTSIDE RECORDS SUMMARY | 2024-03-15 18:47 | XMS_ITS | Encounter Summary ---
Author Organization [facility] Address [address] [place] [address] Care Team Providers Care Nibbler Operator Name Role Phone No, Physician Primary Care Provider [phone] Reason for Visit * Reason Comments Routine Visit 24w 4d Encounter Details Date Type Department Care Team (Latest Contact Info) Description 10/30/2023 10:15 AM CDT Routine [facility] Obstetrical Gynecology [address] [place] [phone] Chip Esteves MD [address] [place] [address] Encounter for related examination in second trimester (Primary Dx); Third trimester Social History Tobacco Use Types Packs/Day Years Used Date Smoking Tobacco: Never Tobacco Cessation:Counseling Given: Not Answered Alcohol Use Standard Drinks/Week Comments Never 0 (1 standard drink = 0.6 oz pur e alcohol) [place] Depression Scale Answer Date Recorded [place] Depression Scale Total 20 08/29/2023 The thought [...] K/cumm Hgb 11.5(L) 11.9 - 15.5 g/dL [facility] Hct 35.3(L) 35.6 - 45.5 % [facility] Plt 208 150 - 400 K/cumm [facility] MPV 11.8 9.1 - 12.3 fL [facility] RBC 4.20 3.90 - 5.20 M/cumm [facility] MCV 84.0 81.3 - 96.4 fL [facility] MCH 27.4 27.1 - 33.3 pg [facility] MCHC 32.6 32.3 - 35.7 g/dL [facility] RDW CV 15.9(H) 11.1 - 14.9 % [facility] RDW SD 49.5(H) 35.7 - 48.1 fL [facility] NRBC abs 0.00 0.00 - 0.01 K/cumm [facility] Blood 11/19/2023 10:0 9 AM CDT 11/19/2023 10:45 AM CDT us Chip Esteves MD LAB BLOOD ORDERABLES Final Result [address] [place] [address] * RPR Blood (11/19/2023 10:09 AM CDT) RPR Nonreactive Nonreactive Comment:Testing performed by : [facility], [address] [facility], [place]., [address] Blood 11/19/2023 10:0 9 AM CDT 11/19/2023 1:09 PM CDT Chip Esteves MD LAB MICROBIOLOGY - GENERAL ORDERABLES Final Result Performing Organization Address City/[facility] Co de Phone Number [address] [address] * HIV 1/2 Antibody plus p24 Antigen [...] LAB MICROBIOLOGY - GENERAL ORDERABLES Final Result [address] [place] [address] documented in this encounter Visit Diagnoses Diagnosis Encounter for related examination in second trimester- Primary Third trimester state, incidental documented in this encounter Discontinued Medications Medication Sig Discontinue Reason Start Date End Da te sertraline (ZOLOFT) 25 mg tabletIndications:Anxiet y and depression Take 1 tablet (25 mg total) by mouth daily Therapy completed 09/02/2023 10/30/2023 documented as of this encounter Care Teams Nibbler Operator Relationship Specialty Start Date End Date No, Physician PCP - General 08/06/22 documented as of this encounter
--- OUTSIDE RECORDS SUMMARY | 2024-03-15 18:47 | XMS_ITS | Referral Summary ---
Author Organization [facility] [address] [facility] Address [address] [place] [address] Care Team Providers Care Street Light Mechanic Name Role Phone No, Physician Primary Care Provider [phone] Encounters Date Type Department Care Team Description 03/10/2024 Telephone [facility] Cardiology [address] [place] [address] Vivi Velasco MA Scheduling Appointments 02/15/[address] [facility] [address] [place] [address] Garry Blair MD from Last 3 Months Allergies Active Allergy Reactions Criticality Noted Date Comments Penicillin G Itching Low 08/12/2023 Medications vit 16-cedq-stico-dh a 27mg iron- 800 mcg-250 mg capsule [...] drink = 0.6 oz pur e alcohol) [place] Depression Scale Answer Date Recorded [place] Depression Scale Total 20 08/29/2023 The thought [...] ERABLES Edited Result - Final ALBERTO [address] [facility] [place] [address] from Last 3 Months or Most Recently Relevant to Health Maintenance Insurance [facility] Member Subscriber Plan / Payer (Ef fective 2022-Present) Name:Mariam Monet Relation to Subscriber:Self Name:Mariam Monet Payer ID:[id number] (NAIC) Type:MEDICAID RISK OTHER Address: [address] [facility] IDPA IDPA ANTHEM ACCESS CHOICE [employer] [facility] [employer] Address: [facility] [address] [place] [address] Light Mechanic Relationship Specialty Start Date End Date No, Physician PCP - General 08/06/22
--- OUTSIDE RECORDS SUMMARY | 2024-03-15 18:47 | XMS_ITS | Encounter Summary ---
Author Organization [facility] Healthcare Address [address] [place] [address] Care Team Providers Care Alum Operator Name Role Phone No, Physician Primary Care Provider Encounter Details Date Type Department Care Team (Late st Contact Info) Description 11/19/2023 9:40 AM CDT Lab [facility] [address] [place] [address] Encounter for related examination in second trimester Social History Tobacco Use Types Packs/Day Years Used Date Smoking Tobacco: Never Alcohol Use Standard Drinks/Week Comments Never 0 (1 standard drink = 0.6 oz pur e alcohol) [place] Depression Scale Answer Date Recorded [place] Depression Scale Total 20 08/29/2023 The thought [...] Esteves MD LAB BLOOD ORDERABLES Final Result [facility] [address] [facility] Department of Laboratories [place], [place] [id number] * HIV 1/2 Antibody plus p24 Antigen [...] GENERAL ORDERABLES Final Result Performing Organization Address City/[facility] Co de Phone Number [address] [place] [address] * RPR Blood (11/19/2023 10:09 AM CDT) [facility] RPR Nonreactive Nonreactive Comment:Testing performed by : [facility], [address] [place]., [address] Blood 11/19/2023 10:0 9 AM CDT 11/19/2023 1:09 PM CDT Chip Esteves MD LAB MICROBIOLOGY - GENERAL ORDERABLES Final Result Performing Organization Address [facility] Co de Phone Number [address] [address] * (ABNORMAL) CBC without differential (11/19/2023 10:09 AM CDT) [facility] WBC 8.8 3.8 - 9.9 K/cumm Hgb 11.5(L) 11.9 - 15.5 g/dL [facility] Hct 35.3(L) 35.6 - 45.5 % [facility] Plt 208 150 - 400 K/cumm [facility] MPV 11.8 9.1 - 12.3 fL [facility] RBC 4.20 3.90 - 5.20 M/cumm [facility] MCV 84.0 81.3 - 96.4 fL [facility] MCH 27.4 27.1 - 33.3 pg [facility] MCHC 32.6 32.3 - 35.7 g/dL [facility] RDW CV 15.9(H) 11.1 - 14.9 % [facility] RDW SD 49.5(H) 35.7 - 48.1 fL [facility] NRBC abs 0.00 0.00 - 0.01 K/cumm ALBERTO DELUCA Blood 11/19/2023 10:0 9 AM CDT 11/19/2023 10:45 AM CDT us Chip Esteves MD LAB BLOOD ORDERABLES Final Result ALBERTO DELUCA [address] [facility] Department [place] [address] documented in this encounter Visit Diagnoses Diagnosis Encounter for related examination in second trimester documented in this encounter Care Teams Alum Operator Relationship Specialty Start Date End Date No, Physician PCP - General 08/06/22 documented as of this encounter
--- OUTSIDE RECORDS SUMMARY | 2024-03-15 18:47 | XMS_ITS | Clinical Summary ---
Author Organization [facility] [address] [facility] Address [address] [place] [address] Care Team Providers Care Campaign Fundraiser Name Role Phone No, Physician Primary Care Provider [phone] Allergies Active Allergy Reactions Criticality Noted Date Comments Penicillin G Itching Low 08/12/2023 Medications vit 05-eclt-jhxth-dh a 27mg iron- 800 mcg-250 mg capsule [...] Type Department Care Team Description 03/10/2024 Telephone [facility] Cardiology [address] [place] [address] Vivi Velasco MA Scheduling Appointments 02/15/[address] [facility] [address] [place] [address] Garry Blair MD from Last 3 Months [...] drink = 0.6 oz pur e alcohol) [place] Depression Scale Answer Date Recorded [place] Depression Scale Total 20 08/29/2023 The thought [...] Jes nski CNM Complications:Anemia,Postpar trent hemorrhage Delivery Location:[facility] Current Summary Episode Dates Number of [...] Delivery Plans Planned delivery method:Vaginal Planned delivery location:[facility] Overview Surveillance of EDC based on dating [place] with [place] A+/I/-/-, HIV and RPR NR Genetics: low [...] - Kristen Randle RN Patient transfer from [place]. [place] only completed dating US. No US completed [...] CNM 6 Current Past medical, surgical, and SAFE AND VAULT MECHANIC history fully reviewed. ROS Objective: BP 100/58 [...] PM CDT 08/12/2023 7:29 PM CDT us Coni Matta MD LAB MICROBIOLOGY - GENERAL ORD ERABLES Edited Result - Final ALBERTO [address] [facility] Department [place] [address] from Last 3 Months or Most Recently Relevant to Health Maintenance Insurance [facility] IDPA IDPA ANTHEM ACCESS CHOICE [employer] Care Teams Campaign Fundraiser Relationship Specialty Start Date End Date No, Physician PCP - General 08/06/22
--- OUTSIDE RECORDS SUMMARY | 2024-03-15 18:47 | XMS_ITS | Encounter Summary ---
Author Organization [facility] Healthcare Address [address] [place] [address] Care Team Providers Care Infant Toddler Lead Teacher Name Role Phone No, Physician Primary Care Provider [phone] Encounter Details Date Type Department Care Team (Late st Contact Info) Description 12/13/2023 10:35 AM CDT Lab [facility] [address] [place] [address] Social History Tobacco Use Types Packs/Day Years Used Date Smoking Tobacco: Never Alcohol Use Standard Drinks/Week Comments Never 0 (1 standard drink = 0.6 oz pur e alcohol) [place] Depression Scale Answer Date Recorded [place] Depression Scale Total 20 08/29/2023 The thought [...] inal Result Performing Organization Address [facility]/ZIP Co de Phone Number [address] [place] [address] * GTT 100gm 1hr gestational diagnostic (12/13/2023 11:53 AM CDT) GTT 100g 1h gest 144 <=179 mg/dL Blood 12/13/2023 11:5 3 AM CDT 12/13/2023 12:07 PM CDT us Not In File Miscellaneous LAB BLOOD ORDERABLES F inal Result Performing Organization Address City/[facility] Co de Phone Number [address] [address] * GTT 100gm fasting gestational diagnostic (12/13/2023 [...] ORDERABLES E dited Result - Final ALBERTO [address] [facility] [place] [address] documented in this encounter Visit Diagnoses Not on filedocumented in this encounter Care Teams Infant Toddler Lead Teacher Relationship Specialty Start Date End Date No, Physician PCP - General 08/06/22 documented as of this encounter
--- OUTSIDE RECORDS SUMMARY | 2024-03-15 18:47 | XMS_ITS | Encounter Summary ---
Author Organization [facility] Healthcare Address [address] [place] [address] Care Team Providers Care Cage Maker Name Role Phone No, Physician Primary Care Provider [phone] Reason for Visit * Reason Comments Dizziness Encounter Details Date Type Department Care Team (Late st Contact Info) Description 12/13/2023 7:31 PM CDT - 12/13/2023 8:20 PM CDT Emergency [address] [address] Tevin Menon MD [address] [place] [id number] Lightheadedness (Primary Dx) Discharge Disposition: Discharge to home or self care Social History Tobacco Use Types Packs/Day Years Used Date Smoking Tobacco: Never Alcohol Use Standard Drinks/Week Comments Never 0 (1 standard drink = 0.6 oz pur e alcohol) [place] Depression Scale Answer Date Recorded [place] Depression Scale Total 20 08/29/2023 The thought [...] (81 mg total) by mouth daily vit 95-ihbt-[id number]-dha 27mg iron- 800 mcg-250 mg capsule Take [...] Use: Not At Risk (02/13/2023) Received from [facility], [facility] AUDIT-C Frequency of Alcohol Consumption: [...] 2:02 PM CDT [facility]. [...] mg/dL Glucose comment 1 Use This Result [facility] Glucose comment 2 RN/MD Notified [facility] Blood 12/13/2023 4:36 PM CDT 12/13/2023 4:36 PM CDT Notinfile Unknown LAB POCT ORDERABLES - DEVICE F inal Result Performing Organization Address [facility] Co de Phone Number [address] [place] [address] * (ABNORMAL) Urinalysis, microscopic only (12/13/2023 4:14 PM CDT) WBC, ur 0-5 0 - 5 /HPF RBC, ur 3-5(A) 0 - 2 /HPF [facility] Epithelial cells, squamous, ur 1-5 0 - 5 /HPF [facility] Mucous, ur Present(A) [facility] Culture Reflex Comment Reflex conditions for urine culture (WBC >10) not met. [facility] Urine 12/13/2023 4:14 PM CDT 12/13/2023 4:18 PM CDT Tevin Menon MD LAB URINE ORDERABLE S Final Result Performing Organization Address [facility] Co de Phone Number [address] [place] [address] * (ABNORMAL) Urinalysis reflex to microscopic and culture Urine (12/13/2023 4:14 PM CDT) Color, ur Yellow Yellow Clarity, ur Clear Clear [facility] Specific gravity, ur 1.012 1.003 - 1.030 [facility] pH, urine 6.5 [facility] Comment: Interpretive Data ? Urine pH is affected by diet, medications, systemic acid-base disturbances, and renal tubular function. ??pH may affect urinary stone formation. ??For example, urine pH below 6.0 may help reduce the tendency for calcium phosphate stones and pH greater than 6.0 may reduce the tendency for uric acid stone formation. Source: [facility] Current Interpretive Data was last revised on 2017 Protein, ur ql Negative Negative [facility] Glucose, ur ql Negative Negative [facility] Ketones, ur Negative Negative [facility] Bilirubin, ur Negative Negative [facility] Blood, ur Negative Negative [facility] Urobilinogen, ur 2.0(A) <2.0 mg/dL [facility] Nitrite, ur Negative Negative [facility] Leukocyte esterase, ur 2+(A) Negative [facility] UA reflex comment Reflex to microscopic UA will be performed. [facility] Urine 12/13/2023 4:14 PM CDT 12/13/2023 4:18 PM CDT Tevin Menon MD LAB MICROBIOLOGY - GENERAL ORDERABLES Final Result Performing Organization Address [facility] de Phone Number [address] [place] [address] * Troponin T high-sensitivity 2-hour (12/13/2023 4:13 PM CDT) Trop T hs <6 <=14 ng/L Comment: Interpretive Data For further hscTnT resources including the diagnostic algorithm and an aid in interpretation, copy and paste this link: https://nrl.testcatalog.org/show/hsTrop Current Interpretive Data last revised 2020. Trop T hs delta 0 ng/L [facility] Trop T hs interp Insignificant [facility] Blood 12/13/2023 4:13 PM CDT 12/13/2023 4:18 PM CDT Tevin Menon MD LAB BLOOD ORDERABLE S Final Result Performing Organization Address [facility] Co de Phone Number [address] [place] [address] * ECG 12 lead (12/13/2023 2:38 PM CDT) [facility] Ventricular Rate EKG/Min 90 BPM [facility] Atrial Rate 90 BPM [facility] NC-Interval (MSEC) 142 ms [facility] QRS-Interval (MSEC) 70 ms [facility] QT-Interval (MSEC) 354 ms [facility] QTc 433 ms [facility] P [place] 44 degrees [facility] R [place] 45 degrees [facility] T [place] -3 degrees [facility] Diagnosis Normal sinus rhythm Cannot rule out Anterior infarct , age undetermined Decreased r wave ??voltage in V3, most likely lead misplacement. Abnormal ECG When compared with ECG of 04-SEP-2023 08:51, Inverted T waves have replaced nonspecific T wave abnormality in Inferior leads Suggest repeat EKG Confirmed by MITALI LIMON M.D. ([id number]) on 12/13/2023 10:55:44 PM [facility] 12/13/2023 2:38 PM CDT 12/13/2023 10:55 PM CDT us Tevin Menon MD ECG ORDERABLES Fin al Result Performing Organization Address City/[facility]/ZIP Co de Phone Number [facility] * POCT glucose (12/13/2023 2:17 PM CDT) [facility] Glucose, POC 78 70 - 199 mg/dL Glucose comment 1 Use This Result [facility] Glucose comment 2 RN/MD Notified [facility] Blood 12/13/2023 2:17 PM CDT 12/13/2023 2:17 PM CDT us Notinfile Unknown LAB POCT ORDERABLES - DEVICE F inal Result ALBERTO [address] [facility] Department [place] [address] * Troponin T high-sensitivity series (baseline, 2hr, 4hr, 6hr) (12/13/2023 2:12 PM CDT) Pathologist [facility] Trop T hs <6 <=14 ng/L Comment: Interpretive Data For further hscTnT resources including the diagnostic algorithm and an aid in interpretation, copy and paste this link: https://nrl.testcatalog.org/show/hsTrop Current Interpretive Data last revised 2020. Blood 12/13/2023 2:12 PM CDT 12/13/2023 2:15 PM CDT us Tevin Menon MD LAB BLOOD ORDERABLE S Final Result [facility]YFZJA [address] [facility] Department [place] [address] * eGFR (12/13/2023 2:12 PM CDT) [facility] eGFR >90 >=60 mL/min/1. 73 m2 Comment: [...] MD LAB BLOOD ORDERABLE S Final Result [facility] [address] [facility] Department [place] [address] * (ABNORMAL) Differential, auto (12/13/2023 2:12 PM CDT) Neutrophil abs 7.6(H) 1.5 - 6.5 K/cumm Imm gran abs 0.2(H) 0.0 - 0.1 K/cumm [facility] Lymphocyte abs 1.3 0.8 - 3.3 K/cumm [facility] Monocyte abs 0.9(H) 0.2 - 0.8 K/cumm [facility] Eosinophil abs 0.1 0.0 - 0.5 K/cumm [facility] Basophil abs 0.0 0.0 - 0.1 K/cumm [facility] Neutrophil pct 75.8 % [facility] Comment: Interpretive Data Percent cell count reference ranges are not reported, since discordance with absolute values may lead to misinterpretation of CBC data. Current Interpretive Data was last revised on 2017. Imm gran pct 1.6 % [facility] Comment: Interpretive Data Percent cell count reference ranges are not reported, since discordance with absolute values may lead to misinterpretation of CBC data. Current Interpretive Data was last revised on 2017. Lymphocyte pct 12.6 % [facility] Comment: Interpretive Data Percent cell count reference ranges are not reported, since discordance with absolute values may lead to misinterpretation of CBC data. Current Interpretive Data was last revised on 2017. Monocyte pct 9.2 % [facility] Comment: Interpretive Data Percent cell count reference ranges are not reported, since discordance with absolute values may lead to misinterpretation of CBC data. Current Interpretive Data was last revised on 2017. Eosinophil pct 0.6 % [facility] Comment: Interpretive Data Percent cell count reference ranges are not reported, since discordance with absolute values may lead to misinterpretation of CBC data. Current Interpretive Data was last revised on 2017. Basophil pct 0.2 % [facility] Comment: Interpretive Data Percent cell count reference ranges are not reported, since discordance with absolute values may lead to misinterpretation of CBC data. Current Interpretive Data was last revised on 2017. Blood 12/13/2023 2:12 PM CDT 12/13/2023 2:15 PM CDT us Tevin Menon MD LAB BLOOD ORDERABLE S Final Result [facility] [address] [facility] Department [place] [address] * (ABNORMAL) Comprehensive metabolic panel (12/13/2023 2:12 PM CDT) Sodium 138 135 - 145 mmol/L Potassium, pl 3.4 3.3 - 4.9 mmol/L [facility] Chloride 104 97 - 110 mmol/L [facility] CO2 25 22 - 32 mmol/L [facility] Anion gap 9 2 - 15 mmol/L [facility] BUN 6 6 - 25 mg/dL [facility] Creatinine 0.44(L) 0.60 - 1.10 mg/dL [facility] Glucose 76 70 - 199 mg/dL [facility] Comment: Interpretive Data Fasting glucose >/= 126 [...] 2022. Calcium 8.9 8.5 - 10.3 mg/dL [facility] Bilirubin, total 0.3 0.1 - 1.2 mg/dL [facility] Protein, pl 6.9 6.5 - 8.5 g/dL [facility] Albumin 3.9 3.5 - 5.0 g/dL [facility] Alk phos 96 40 - 130 Units/L [facility] ALT 9 7 - 45 Units/L [facility] AST 12 10 - 45 Units/L [facility] Blood 12/13/2023 2:12 PM CDT 12/13/2023 2:15 PM CDT us Tevin Menon MD LAB BLOOD ORDERABLE S Final Result ALBERTO [address] [employer] [place], [place] [id number] * (ABNORMAL) CBC with auto differential (12/13/2023 2:12 PM CDT) [facility] WBC 10.0(H) 3.8 - 9.9 K/cumm Hgb 11.9 11.9 - 15.5 g/dL [facility] Hct 37.8 35.6 - 45.5 % [facility] Plt 188 150 - 400 K/cumm [facility] MPV 11.0 9.1 - 12.3 fL [facility] RBC 4.51 3.90 - 5.20 M/cumm [facility] MCV 83.8 81.3 - 96.4 fL [facility] MCH 26.4(L) 27.1 - 33.3 pg [facility] MCHC 31.5(L) 32.3 - 35.7 g/dL [facility] RDW CV 13.8 11.1 - 14.9 % [facility] RDW SD 41.6 35.7 - 48.1 fL [facility] NRBC abs 0.00 0.00 - 0.01 K/cumm [facility] Blood 12/13/2023 2:12 PM CDT 12/13/2023 2:15 PM CDT us Tevin Menon MD LAB BLOOD ORDERABLE S Final Result ALBERTO [address] [employer] [place], [place] [id number] documented in this encounter Visit Diagnoses Diagnosis [...] 12/12 documented in this encounter Care Teams Cage Maker Relationship Specialty Start Date End Date No, Physician PCP - General 08/06/22 documented as of this encounter
--- OUTSIDE RECORDS SUMMARY | 2024-03-15 18:47 | XMS_ITS | Encounter Summary ---
Author Organization [facility] Healthcare Address [address] [place] [address] Care Team Providers Care Truck Rental Manager Name Role Phone No, Physician Primary Care Provider [phone] Encounter Details Date Type Department Care Team (Late st Contact Info) Description 10/04/2023 Orders Only [facility] Medical Group Obstetrical Gynecology [address] [address] Garry Blair MD [address] [facility] REMBERTO [address] [place] [address] Leg cramping (Primary Dx); Supervision of other normal , antepartum Social History Tobacco Use Types Packs/Day Years Used Date Smoking Tobacco: Never Alcohol Use Standard Drinks/Week Comments Never 0 (1 standard drink = 0.6 oz pur e alcohol) [place] Depression Scale Answer Date Recorded [place] Depression Scale Total 20 08/29/2023 The thought [...] * Magnesium (10/22/2023 12:17 PM CDT) Pathologist [facility] Magnesium 2.0 1.4 - 2.5 mg/dL Blood 10/22/2023 12:1 7 PM CDT 10/22/2023 12:28 PM CDT Garry Blair MD LAB BLOOD ORDERABLES Fin al Result Performing Organization Address City/State/[facility] Co de Phone Number [facility] [address] [facility] Department [place] [address] * (ABNORMAL) Basic metabolic panel (10/22/2023 12:17 PM CDT) [facility] Sodium 137 135 - 145 mmol/L Potassium, pl 3.8 3.3 - 4.9 mmol/L [facility] Chloride 104 97 - 110 mmol/L [facility] CO2 25 22 - 32 mmol/L [facility] Anion gap 8 2 - 15 mmol/L [facility] BUN 7 6 - 25 mg/dL [facility] Creatinine 0.45(L) 0.60 - 1.10 mg/dL [facility] Glucose 79 70 - 199 mg/dL [facility] Comment: Interpretive Data Fasting glucose [...] 2022. Calcium 8.8 8.5 - 10.3 mg/dL [facility] Blood 10/22/2023 12:1 7 PM CDT 10/22/2023 12:28 PM CDT Garry Blair MD LAB BLOOD ORDERABLES Fin al Result [facility] [address] [facility] Department [place] [address] documented in this encounter Visit Diagnoses Diagnosis Leg cramping- Primary Supervision of other normal , antepartum documented in this encounter Care Teams Truck Rental Manager Relationship Specialty Start Date End Date No, Physician PCP - General 08/06/22 documented as of this encounter
--- OUTSIDE RECORDS SUMMARY | 2024-03-15 18:47 | XMS_ITS | Encounter Summary ---
Author Organization [facility] Healthcare Address [address] [place] [address] Care Team Providers Care Vice President Of Talent Management Name Role Phone No, Physician Primary Care Provider [phone] Encounter Details Date Type Department Care Team (Late st Contact Info) Description 02/15/2024 Hospital Encounter [facility] [address] [place], [place] [phone] Garry Blair MD [address] [phone] Social History Tobacco Use Types Packs/Day Years Used Date Smoking Tobacco: Never Alcohol Use Standard Drinks/Week Comments Never 0 (1 standard drink = 0.6 oz pur e alcohol) [place] Depression Scale Answer Date Recorded [place] Depression Scale Total 20 08/29/2023 The thought [...] this encounter Care Teams Vice President Of Talent Management Relationship Specialty Start Date End Date No, Physician PCP - General 08/06/22 documented as of this encounter
--- OUTSIDE RECORDS SUMMARY | 2024-03-15 18:47 | XMS_ITS | Encounter Summary ---
Author Organization [facility] Healthcare Address [address] [place] [address] Care Team Providers Care Software Publisher Name Role Phone No, Physician Primary Care Provider [phone] Encounter Details Date Type Department Care Team (Late st Contact Info) Description 10/22/2023 11:[address] [facility] [address] [place] [address] Leg cramping; Supervision of other normal , antepartum Social History Tobacco Use Types Packs/Day Years Used Date Smoking Tobacco: Never Alcohol Use Standard Drinks/Week Comments Never 0 (1 standard drink = 0.6 oz pur e alcohol) [place] Depression Scale Answer Date Recorded [place] Depression Scale Total 20 08/29/2023 The thought [...] LAB BLOOD ORDERABLES Fin al Result ALBERTO [address] [place] [address] [place] [address] * (ABNORMAL) Basic metabolic panel (10/22/2023 12:17 PM CDT) Pathologist [facility] Sodium 137 135 - 145 mmol/L Potassium, pl 3.8 3.3 - 4.9 mmol/L [facility] Chloride 104 97 - 110 mmol/L [facility] CO2 25 22 - 32 mmol/L [facility] Anion gap 8 2 - 15 mmol/L [facility] BUN 7 6 - 25 mg/dL [facility] Creatinine 0.45(L) 0.60 - 1.10 mg/dL [facility] Glucose 79 70 - 199 mg/dL [facility] Comment: Interpretive Data Fasting glucose >/= [...] 2022. Calcium 8.8 8.5 - 10.3 mg/dL [facility] Blood 10/22/2023 12:1 7 PM CDT 10/22/2023 12:28 PM CDT Garry Blair MD LAB BLOOD ORDERABLES Fin al Result [address] [place] [address] * Magnesium (10/22/2023 12:17 PM CDT) [facility] Magnesium 2.0 1.4 - 2.5 mg/dL Blood 10/22/2023 12:1 7 PM CDT 10/22/2023 12:28 PM CDT Garry Blair MD LAB BLOOD ORDERABLES Fin al Result [facility] [address] [facility] Department [place] [address] documented in this encounter Visit Diagnoses Diagnosis Leg cramping Supervision of other normal , antepartum documented in this encounter Care Teams Software Publisher Relationship Specialty Start Date End Date No, Physician PCP - General 08/06/22 documented as of this encounter
--- OUTSIDE RECORDS SUMMARY | 2024-03-15 18:48 | XMS_ITS | Encounter Summary ---
Author Organization [facility] Healthcare Address [address] [place] [address] Care Team Providers Care Crochet Machine Operator Name Role Phone No, Physician Primary Care Provider [phone] Reason for Visit * Reason Comments Routine Visit Encounter Details Date Type Department Care Team ([facility] st Contact Info) Description 09/16/2023 12:45 PM CDT Office Visit [facility] Medical Group Obstetrical Gynecology [address] [facility] [address] [place] [phone] Marnie Poe, OZIEL [facility] [place] [address] Vaginal burning (Primary Dx) Social History Tobacco Use Types Packs/Day Years Used Date Smoking Tobacco: Never Alcohol Use Standard Drinks/Week Comments Never 0 (1 standard drink = 0.6 oz pur e alcohol) [place] Depression Scale Answer Date Recorded [place] Depression Scale Total 20 08/29/2023 The thought [...] this encounter Progress Notes * Marnie Poe, TACKER OFF - 09/16/2023 12:45 PM CDT OB RETURN [...] Detected(A) Not Detected Comment:Testing performed by : [address] [address] Gardnerella DNA probe Not Detected Not Detected ALBERTO Comment:Testing performed by : [address] [address] Trichomonas DNA probe Not Detected Not Detected ALBERTO Comment: Interpretive Data Testing performed by [facility] via [employer] VPIII Microbial Identification Test, [...] last revised on 2020. Testing performed by: [address] [address] Vaginal 09/16/2023 12:4 7 PM CDT 09/16/2023 5:12 PM CDT us Marnie Poe NP LAB MICROBIOLOGY - GENERAL O RDERABLES Final Result [facility] [address] [facility] Department [place] [address] documented in this encounter Visit Diagnoses Diagnosis Vaginal burning- Primary Other specified symptom associated with female genital organs documented in this encounter Care Teams Crochet Machine Operator Relationship Specialty Start Date End Date No, Physician PCP - General 08/06/22 documented as of this encounter
--- OUTSIDE RECORDS SUMMARY | 2024-03-15 18:48 | XMS_ITS | Encounter Summary ---
Author Organization [facility] Healthcare Address [address] [place] [address] Care Team Providers Care Loader Unloader Name Role Phone No, Physician Primary Care Provider [phone] Encounter Details Date Type Department Care Team ([facility] st Contact Info) Description 09/17/2023 Orders Only [facility] Medical Group Obstetrical Gynecology [address] [facility] [address] [place] [phone] Marnie Poe NP [address] [place] [address] Social History Tobacco Use Types Packs/Day Years Used Date Smoking Tobacco: Never Alcohol Use Standard Drinks/Week Comments Never 0 (1 standard drink = 0.6 oz pur e alcohol) [place] Depression Scale Answer Date Recorded [place] Depression Scale Total 20 08/29/2023 The thought [...] End Date fluconazole (DIFLUCAN) 150 mg tablet Take 1 tablet (150 mg total) by mouth once for 1 dose 1 tablet 09/17/2023 09/17/2023 documented in this encounter Plan of Treatment Not on file documented as of this encounter Visit Diagnoses Not on filedocumented in this encounter Care Teams Loader Unloader Relationship Specialty Start Date End Date No, Physician PCP - General 08/06/22 documented as of this encounter
--- OUTSIDE RECORDS SUMMARY | 2024-03-15 18:48 | XMS_ITS | Encounter Summary ---
Author Organization [facility] Healthcare Address [address] [place] [address] Care Team Providers Care Linux System Admin Name Role Phone No, Physician Primary Care Provider [phone] Reason for Visit * Reason Comments Routine Visit 17.4 wks Encounter Details Date Type Department Care Team (Latest Contact Info) Description 09/11/2023 11:15 AM CDT Routine [facility] Medical Group Obstetrical Gynecology [facility] [address] [phone] Marnie Poe, OZIEL [address] [place] [address] Encounter for supervision of other normal in second trimester (Primary Dx) Social History Tobacco Use Types Packs/Day Years Used Date Smoking Tobacco: Never Alcohol Use Standard Drinks/Week Comments Never 0 (1 standard drink = 0.6 oz pur e alcohol) [place] Depression Scale Answer Date Recorded [place] Depression Scale Total 20 08/29/2023 The thought [...] Primary documented in this encounter Care Teams Linux System Admin Relationship Specialty Start Date End Date No, Physician PCP - General 08/06/22 documented as of this encounter
--- OUTSIDE RECORDS SUMMARY | 2024-03-15 18:48 | XMS_ITS | Encounter Summary ---
Author Organization [facility] Healthcare Address [address] [place] [address] Care Team Providers Care Grocery Bagger Name Role Phone No, Physician Primary Care Provider [phone] Encounter Details Date Type Department Care Team ([facility] st Contact Info) Description 09/16/2023 Orders Only [facility] Medical Group Obstetrical Gynecology [address] [facility] [address] [place] [phone] Marnie Poe, OZIEL [address] [place] [address] Vaginal irritation (Primary Dx) Social History Tobacco Use Types Packs/Day Years Used Date Smoking Tobacco: Never Alcohol Use Standard Drinks/Week Comments Never 0 (1 standard drink = 0.6 oz pur e alcohol) [place] Depression Scale Answer Date Recorded [place] Depression Scale Total 20 08/29/2023 The thought [...] organs documented in this encounter Care Teams Grocery Bagger Relationship Specialty Start Date End Date No, Physician PCP - General 08/06/22 documented as of this encounter
--- OUTSIDE RECORDS SUMMARY | 2024-03-15 18:48 | XMS_ITS | Encounter Summary ---
Author Organization [facility] Address [address] [place] [address] Care Team Providers Care Tax Accounting Manager Name Role Phone No, Physician Primary Care Provider [phone] Reason for Referral * Diagnostic Imaging (Routine) - Pending Review Specialty Diagnoses / Procedures Referred By Contac t Referred To Contact Diagnoses Encounter for screening for cervical length Procedures US Ob Transvaginal Chip Esteves MD [facility] [address] Phone: tel: fax: Referral ID Status Reason Start Date Expiration Date V isits Requested Visits Authorized [id number] Pending Review 2023 10/31/2024 1 1 * Diagnostic Imaging (Routine) - Pending Review Specialty Diagnoses / Procedures Referred By Contac t Referred To Contact Diagnoses Encounter for supervision of other normal , second trimester Procedures US Ob 14 Weeks Or Over Chip Esteves MD [address] [address] Phone: tel: fax: Referral ID Status Reason Start Date Expiration Date V isits Requested Visits Authorized [id number] Pending Review 2023 10/31/2024 1 1 Reason for Visit * Reason Comments Ultrasound * Diagnostic Imaging (Routine) - Pending Review Specialty Diagnoses / Procedures Referred By Dora oconnor Referred To Contact Diagnoses Encounter for supervision of other normal , second trimester Procedures US Ob 14 Weeks Or Over Chip Esteves MD [facility] [address] [address] Phone: tel: fax: Referral ID Status Reason Start Date Expiration Date V isits Requested Visits Authorized [id number] Pending Review 2023 10/31/2024 1 1 Encounter Details Date Type Department Care Team (Latest Contact Info) Description 2023 10:45 AM CDT Clinical Support [facility] Medical Group Obstetrical Gynecology [address] [place] [phone] Encounter for supervision of other normal , second trimester (Primary Dx); Encounter for screening for cervical length Social History Tobacco Use Types Packs/Day Years Used Date Smoking Tobacco: Never Alcohol Use Standard Drinks/Week Comments Never 0 (1 standard drink = 0.6 oz pur e alcohol) [place] Depression Scale Answer Date Recorded [place] Depression Scale Total 20 08/29/2023 The thought [...] Date/Time Associated Diagnosis Comments US OB TRANSVAGINAL Schedule Routine, Read Routine (OP Routine) 2023 11:18 AM CDT Encounter for screening for cervical length US OB 14 WEEKS OR OVER Schedule Routine, Read Routine (OP Routine) 2023 11:17 AM CDT Encounter for supervision of other normal , second trimester documented in this encounter Results * US Ob Transvaginal (2023 11:18 AM CDT) Anatomical Region Laterality Modality Abdomen N/A Ultrasound Narrative 2023 11:41 AM CDT See other report Chip Esteves MD IMG OB US PROCEDURES Final Result * US Ob 14 Weeks Or Over (2023 11:17 AM CDT) Heart Rate 137 bpm Femur Length 3.57 cm Abdominal Circumference 15.41 cm Head Circumference 17.56 cm Biparietal Diameter 4.49 cm Anatomical Region Laterality Modality Abdomen N/A Ultrasound Narrative 2023 11:41 AM CDT Previous Exam: none Indication: anatomy ?? number: 1 position: vertex ?? Placenta location: anterior GARRICK: WNL GA today by prev sono: 20w4d ANGIE 02/15/2024 EFW today: 377g 13oz 56% ??GA: 20w3d ANGIE 02/16/2024 anatomy appearing normal: Cranial anatomy: Y Stomach: Y Bladder: Y Diaphragm: Y Kidneys: Y Umbilical cord insert: Y 3v Cord: Y Spine: Y Hands/Feet: Y/Y Nose-lips/Profile: Y/Y 4ch heart: Y LVOT: Y RVOT: Y Situs - normal: Y In Flight Crew Member comments: Anatomy complete. Cervical length = 4.26 cm. Anterior placenta. Male. Physician Interpretation Reason for exam: anatomy Impression: single live IUP with cardiac activity of 137 bpm. ??Appropriate growth. Fluid appears normal. Placenta appears normal. anatomy is well-visualized today with a normal anatomical survey. ??Reassuring, normal cervical length by TV probe (4.26cm). No other abnormalities identified within the limits of today's exam. Recommend: Follow up US as clinically indicated. Garry Blair MD Chip Esteves MD IMG OB US PROCEDURES Edite d Result - Final documented in this encounter Visit Diagnoses Diagnosis Encounter for supervision of other normal , second trimester- Primary Encounter for screening for cervical length documented in this encounter Care Teams Tax Accounting Manager Relationship Specialty Start Date End Date No, Physician PCP - General 08/06/22 documented as of this encounter
--- OUTSIDE RECORDS SUMMARY | 2024-03-15 18:48 | XMS_ITS | Encounter Summary ---
Author Organization [facility] Healthcare Address [address] [place] [address] Care Team Providers Care No Experience Name Role Phone No, Physician Primary Care Provider [phone] Encounter Details Date Type Department Care Team (Latest Contact Info) Description 09/16/2023 1:21 PM CDT - 09/16/2023 11:59 PM CDT Hospital Encounter [facility] Building [address] [address] Vaginal burning Discharge Disposition: Discharge to home or self care Social History Tobacco Use Types Packs/Day Years Used Date Smoking Tobacco: Never Alcohol Use Standard Drinks/Week Comments Never 0 (1 standard drink = 0.6 oz pur e alcohol) [place] Depression Scale Answer Date Recorded [place] Depression Scale Total 20 08/29/2023 The thought [...] encounter Medications at Time of Discharge vit 31-oanc-nqzxh-dha 27mg iron- 800 mcg-250 mg capsule Take [...] Detected(A) Not Detected Comment:Testing performed by : [address] [address] Gardnerella DNA probe Not Detected Not Detected ALBERTO Comment:Testing performed by : [address] [address] Trichomonas DNA probe Not Detected Not Detected AL[facility]ERTO DELUCA Comment: Interpretive Data Testing performed by [facility] via [employer] VPIII Microbial Identification Test, [...] last revised on 2020. Testing performed by: [address] [address] Vaginal 09/16/2023 12:4 7 PM CDT 09/16/2023 5:12 PM CDT us Marnie Poe NP LAB MICROBIOLOGY - GENERAL O RDERABLES Final Result ALBERTO DELUCA [address] [facility] Department [place] [address] documented in this encounter Visit Diagnoses Diagnosis Vaginal burning Other specified symptom associated with female genital organs documented in this encounter Care Teams No Experience Relationship Specialty Start Date End Date No, Physician PCP - General 08/06/22 documented as of this encounter
--- OUTSIDE RECORDS SUMMARY | 2024-03-15 18:49 | XMS_ITS | Encounter Summary ---
Author Organization [facility] Healthcare Address [address] [place] [address] Care Team Providers Care Ase Certified Technician Name Role Phone No, Physician Primary Care Provider [phone] Encounter Details Date Type Department Care Team (Latest Contact Info) Description 08/14/2023 4:42 PM CDT - 08/14/2023 6:30 PM CDT Hospital Encounter [facility] [address] [place], [place] [address] Chip Esteves MD [facility] [address] Coni Matta MD [address] [place] [phone] Discharge Disposition: Discharge to home or self [...] encounter Medications at Time of Discharge vit 01-xcnu-tpwfh-dha 27mg iron- 800 mcg-250 mg capsule Take [...] 08/14/2023 documented in this encounter Care Teams Ase Certified Technician Relationship Specialty Start Date End Date No, Physician PCP - General 08/06/22 documented as of this encounter
--- OUTSIDE RECORDS SUMMARY | 2024-03-15 18:49 | XMS_ITS | Encounter Summary ---
Author Organization [facility] Healthcare Address [address] [place] [address] Care Team Providers Care Credit Associate Name Role Phone No, Physician Primary Care Provider [phone] Encounter Details Date Type Department Care Team (Latest Contact Info) Description 08/16/2023 1:16 PM CDT - 08/16/2023 11:59 PM CDT Hospital Encounter [facility] Building [address] [address] Encounter for supervision of other normal in [...] encounter Medications at Time of Discharge vit 59-jptb-yccmj-dha 27mg iron- 800 mcg-250 mg capsule Take [...] 12:22 PM CDT) Trichomonas DNA Not Detected [facility] Comment: Interpretive Data This assay detects Trichomonas vaginalis by nucleic acid amplification testing (NAAT). This assay has been cleared by the [place] Food and Drug administration. The performance characteristics of this test have been verified by the [facility] Molecular Infectious Disease laboratory. The performance of this test has not been evaluated in individuals less than 18 years of age. ?? Current Interpretive Data was last revised on 2023. Testing performed by: [facility], [address] [place] [address]., [address] Urine 08/16/2023 12:2 2 PM CDT 08/16/2023 8:22 PM CDT us Coni Matta MD LAB MICROBIOLOGY - GENERAL ORD ERABLES Final Result ALBERTO [address] [facility] Department [place] [address] [facility] * N. gonorrhoeae/C. trachomatis Amplification Urine (08/16/2023 12:22 PM CDT) C. trachomatis Not Detected [facility] Comment:Testing performed by : [address] [address] N. gonorrhoeae Not Detected AL[facility]ERTO DELUCA Comment: Interpretive Data This assay detects Chlamydia trachomatis and Neisseria gonorrhoeae by nucleic acid amplification testing (NAAT). This assay has been cleared by the [place] Food and Drug administration. The performance characteristics of this test have been verified by the [facility] Molecular Infectious Disease laboratory. The performance characteristics of this test have not been evaluated in individuals less than 14 years of age. Current Interpretive Data was last revised on 2023. Testing performed by: [facility], [address] [place]., [address] Urine (None) 08/16/2023 12:2 2 PM CDT 08/16/2023 8:22 PM CDT us Coni Matta MD LAB MICROBIOLOGY - GENERAL ORD ERABLES Final Result ALBERTO [address] [facility] Department [place] [address] [facility] documented in this encounter Visit Diagnoses Diagnosis Encounter for supervision of other normal in first trimester documented in this encounter Care Teams Credit Associate Relationship Specialty Start Date End Date No, Physician PCP - General 08/06/22 documented as of this encounter
--- OUTSIDE RECORDS SUMMARY | 2024-03-15 18:49 | XMS_ITS | Encounter Summary ---
Author Organization [facility] Healthcare Address [address] [place] [address] Care Team Providers Care Assistant Curator Name Role Phone No, Physician Primary Care Provider [phone] Encounter Details Date Type Department Care Team (Latest Contact Info) Description 07/29/2023 12:14 PM CDT - 07/29/2023 11:59 PM CDT Hospital Encounter [address] [address] Pre-employment health screening examination Discharge Disposition: Discharge [...] or headaches 40 tablet 02/21/2023 4 vit 66-bjoc-njomc-dh a 27mg iron- 800 mcg-250 mg capsule [...] * T-SPOT.TB Blood (07/29/2023 12:14 PM CDT) [facility] T-SPOT.TB Negative SeeBelow Comment: Normal Value: Negative [...] test. T-SPOT.TB Panel A Spot Count 2 [facility] T-SPOT.TB Panel B Spot Count 0 [facility] T[facility]SPOT.TB Negative Control Passed [facility] T-SPOT.TB Positive Control Passed [facility] Comment: Test Performed at: [employer] [facility], [employer] [address] [place] [address] ??[phone] ? MILADY FLORES,PHD Blood 07/29/2023 12:1 4 PM CDT 07/29/2023 1:48 PM CDT Narrative ALBERTO - 08/01/2023 12:18 PM CDT Patient is employed by/enrolled at:->[facility] Medical Group Elier Akers MD LAB MICROBIOLOGY - GENERAL OR DERABLES Final Result ALBERTO [address] [address] Department [place] [address] documented in this encounter Visit Diagnoses Diagnosis Pre-employment health screening examination Health examination of defined subpopulation documented in this encounter Care Teams Assistant Curator Relationship Specialty Start Date End Date No, Physician PCP - General 08/06/22 documented as of this encounter
--- OUTSIDE RECORDS SUMMARY | 2024-03-15 18:49 | XMS_ITS | Encounter Summary ---
Author Organization [facility] Address [address] [place] [address] Care Team Providers Care Fast Food Cook Name Role Phone No, Physician Primary Care Provider [phone] Reason for Referral * Cardiology (Routine) - Closed Specialty Diagnoses / Procedures Referred By Contac t Referred To Contact Diagnoses Supervision of other normal , antepartum Light headed Tachycardia Procedures ECG 12 lead Judy Luna MD [address] [place] [address] Phone: tel: fax: [address] [phone] Referral ID Status Reason Start Date Expiration Date Visits Re quested Visits Authorized [id number] Closed 09/03/2023 2024 1 1 Reason for Visit * Cardiology (Routine) - Closed Specialty Diagnoses / Procedures Referred By Contac t Referred To Contact Diagnoses Supervision of other normal , antepartum Light headed Tachycardia Procedures ECG 12 lead Judy Luna MD [address] [place] [address] Phone: tel: fax: [address] [phone] Referral ID Status Reason Start Date Expiration Date Visits Re quested Visits Authorized [id number] Closed 09/03/2023 2024 1 1 Encounter Details Date Type Department Care Team (Latest Contact Info) Description 09/04/2023 8:24 AM CDT - 09/04/2023 11:59 PM CDT Hospital Encounter [facility] Cardiac Testing [address] [place] [address] Supervision of other normal , antepartum; Light headed; Tachycardia Discharge Disposition: Discharge to home or self care Social History Tobacco Use Types Packs/Day Years Used Date Smoking Tobacco: Never Alcohol Use Standard Drinks/Week Comments Never 0 (1 standard drink = 0.6 oz pur e alcohol) [place] Depression Scale Answer Date Recorded [place] Depression Scale Total 20 08/29/2023 The thought [...] encounter Medications at Time of Discharge vit 65-cxyk-tkwxx-dha 27mg iron- 800 mcg-250 mg capsule Take [...] HEALTHCARE Atrial Rate 78 BPM [facility] [place]-Interval (MSEC) 150 ms [facility] QRS-Interval (MSEC) 72 ms [facility] QT-Interval (MSEC) 368 ms [facility] QTc 419 ms [facility] P [place] 53 degrees [facility] R [place] 65 degrees [facility] T [place] 31 degrees [facility] Diagnosis Normal sinus rhythm Normal ECG When compared with ECG of 24-FEB-2023 13:22, No significant change was found Confirmed by DWIGHT MORGAN M.D. ([id number]) on 09/04/2023 3:44:28 PM [facility] 09/04/2023 8:51 AM CDT 09/04/2023 3:44 PM CDT us Judy Luna MD ECG ORDERABLES Final Result [facility] documented in this encounter Visit Diagnoses Diagnosis Supervision of other normal , antepartum Light headed Dizziness and giddiness Tachycardia Unspecified tachycardia documented in this encounter Care Teams Fast Food Cook Relationship Specialty Start Date End Date No, Physician PCP - General 08/06/22 documented as of this encounter
--- OUTSIDE RECORDS SUMMARY | 2024-03-15 18:49 | XMS_ITS | Encounter Summary ---
Author Organization [facility] Healthcare Address [address] [place] [address] Care Team Providers Care Proposal Manager Writer Name Role Phone No, Physician Primary Care Provider [phone] Encounter Details Date Type Department Care Team (Latest Contact Info) Description 07/23/2023 10:47 AM CDT - 07/23/2023 11:59 PM CDT Hospital Encounter [address] [address] Pre-employment health screening examination Discharge Disposition: Discharge [...] or headaches 40 tablet 02/21/2023 4 vit 17-akea-fawzj-dh a 27mg iron- 800 mcg-250 mg capsule [...] * T-SPOT.TB Blood (07/23/2023 8:10 AM CDT) [facility] T-SPOT.TB BORDERLINE SeeBelow Comment: Normal Value: Negative [...] [facility] Comment: Test Performed at: [employer] [facility], [facility] [address] [place] [address] ??[phone] ? MILADY FLORES,PHD Blood 07/23/2023 8:10 AM CDT 07/23/2023 12:16 PM CDT Narrative [facility] - 07/26/2023 3:08 PM CDT Bill to [facility] [id number] Patient is employed by/enrolled at:->[facility] Medical Group us Elier Akers MD LAB MICROBIOLOGY - GENERAL OR DERABLES Final Result [facility] Department [place] [address] documented in this encounter Visit Diagnoses Diagnosis Pre-employment health screening examination Health examination of defined subpopulation documented in this encounter Care Teams Proposal Manager Writer Relationship Specialty Start Date End Date No, Physician PCP - General 08/06/22 documented as of this encounter
--- OUTSIDE RECORDS SUMMARY | 2024-03-15 18:49 | XMS_ITS | Encounter Summary ---
Author Organization [facility] Healthcare Address [address] [place] [address] Care Team Providers Care Xray Tech Name Role Phone No, Physician Primary Care Provider [phone] Reason for Visit * Reason Comments Covid Encounter Details Date Type Department Care Team (Latest Contact Info) Description 09/06/2023 2:30 PM CDT Clinical Support [facility] Medical Group [facility] Care at [address] [phone] Encounter for laboratory testing for COVID-19 virus (Primary Dx) Social History Tobacco Use Types Packs/Day Years Used Date Smoking Tobacco: Never Alcohol Use Standard Drinks/Week Comments Never 0 (1 standard drink = 0.6 oz pur e alcohol) [place] Depression Scale Answer Date Recorded [place] Depression Scale Total 20 08/29/2023 The thought [...] Will MA - 09/06/2023 2:30 PM CDT [facility] Healthcare employee is here today for a [...] documented as of this encounter Care Teams Xray Tech Relationship Specialty Start Date End Date No, Physician PCP - General 08/06/22 documented as of this encounter
--- OUTSIDE RECORDS SUMMARY | 2024-03-15 18:49 | XMS_ITS | Encounter Summary ---
Author Organization [facility] Healthcare Address [address] [place] [address] Care Team Providers Care Rug Setter [place]minster Name Role Phone No, Physician Primary Care Provider [phone] Encounter Details Date Type Department Care Team (Late st Contact Info) Description 07/23/2023 Orders Only [facility] Healthcare Occupatiuonal Health [address] (Third Floor) [place], [place] [id number] Elier Akers MD [address] [place], [place] [id number] Pre-employment health screening examination (Primary Dx) Social [...] test. T-SPOT.TB Panel A Spot Count 6 [facility] T-SPOT.TB Panel B Spot Count 0 [facility] T-SPOT.TB Negative Control Passed [facility] T-SPOT.TB Positive Control Passed [facility] Comment: Test Performed at: [employer] [facility] [address] [place] [address] ??[phone] ? MILADY FLORES,PHD Blood 07/23/2023 8:10 AM CDT 07/23/2023 12:16 PM CDT Narrative [facility] - 07/26/2023 3:08 PM CDT Bill to [facility] 15[address] Patient is employed by/enrolled at:->[facility] Medical Group Elier Akers MD LAB MICROBIOLOGY - GENERAL OR DERABLES Final Result [facility] [place] [address] documented in this encounter Visit Diagnoses Diagnosis Pre-employment health screening examination- Primary Health examination of defined subpopulation Pre-employment health screening examination Health examination of defined subpopulation documented in this encounter Care Teams Rug Setter [place] Relationship Specialty Start Date End Date No, Physician PCP - General 08/06/22 documented as of this encounter
--- OUTSIDE RECORDS SUMMARY | 2024-03-15 18:49 | XMS_ITS | Encounter Summary ---
Author Organization [facility] Healthcare Address [address] [place] [address] Care Team Providers Care Talent Acquisition Administrator Name Role Phone No, Physician Primary Care Provider [phone] Encounter Details Date Type Department Care Team (Latest Contact Info) Description 09/06/2023 5:24 PM CDT - 09/06/2023 11:59 PM CDT Hospital Encounter [address] [address] Fever, unspecified fever cause; Mild headache; Sorethroat Discharge Disposition: Discharge to home or self care Social History Tobacco Use Types Packs/Day Years Used Date Smoking Tobacco: Never Alcohol Use Standard Drinks/Week Comments Never 0 (1 standard drink = 0.6 oz pur e alcohol) [place] Depression Scale Answer Date Recorded [place] Depression Scale Total 20 08/29/2023 The thought [...] encounter Medications at Time of Discharge vit 32-fkbu-ybycg-dha 27mg iron- 800 mcg-250 mg capsule Take [...] The Chronically Ill COVID-19 RNA Negative Negative [facility] Influenza A RNA Negative Negative [facility] Influenza B RNA Negative Negative [facility] RSV RNA Negative Negative [facility] Comment: Interpretive data: Testing performed by [facility] ([phone]). This test is performed using the [employer] Xpert Xpress CoV-2/Flu/RSV plus assay. This is a multiplex, real-time reverse transcriptase PCR assay intended for the qualitative detection of nucleic acid from SARS-CoV-2, influenza A, influenza B, and respiratory syncytial virus. This assay has been cleared by the [place] Food and Drug administration. The performance characteristics have been verified by the [facility]. ??Results must be considered in the clinical context, and a negative result does not rule out infection. Interpretive Data last revised 2023 Nasopharyngeal 09/06/2023 2: 21 PM CDT 09/06/2023 5:50 PM CDT Narrative CERNER [facility] - 09/06/2023 6:37 PM CDT Bill to [facility] RFEyeD - 3750 Patient is employed by/enrolled at:->[facility] Medical [facility] Is the patient experiencing any symptoms consistent with COVID (eg. Fever, cough, shortness of breath)?->Yes Reason for testing?->Symptomatic Is the Patient experiencing symptoms consistent with COVID?->Yes us Elier Akers MD LAB MICROBIOLOGY - GENERAL OR DERABLES Final Result Performing Organization Address City/State/[facility] Co de Phone Number ALBERTO [facility] Department [place] [address] [facility] documented in this encounter Visit Diagnoses Diagnosis Fever, unspecified fever cause Mild headache Sorethroat Acute pharyngitis documented in this encounter Additional Health Concerns Infection Onset Date Last Indicated Resolved Time COVID: Suspected 09/06/2023 09/06/2023 09/06/2023 6:38 PM CDT documented as of this encounter Care Teams Talent Acquisition Administrator Relationship Specialty Start Date End Date No, Physician PCP - General 08/06/22 documented as of this encounter
--- OUTSIDE RECORDS SUMMARY | 2024-03-15 18:49 | XMS_ITS | Encounter Summary ---
Author Organization [facility] Healthcare Address [address] [place] [address] Care Team Providers Care Solid Waste Facility Supervisor Name Role Phone No, Physician Primary Care Provider [phone] Encounter Details Date Type Department Care Team (Late st Contact Info) Description 07/29/2023 Orders Only [facility] Healthcare Occupatiuonal Health [address] [facility] Room 3420 (Third Floor) [place], [place] [phone] Elier Akers MD [address] [place], [place] [id number] Pre-employment health screening examination (Primary Dx) Social [...] test. [employer]TB Panel A Spot Count 2 [facility] T-SPOT.TB Panel B Spot Count 0 [facility] Negative Control Passed [facility] Positive Control Passed [facility] Comment: Test Performed at: [employer] [facility] [employer] [address] [place] [address] ??[id number] ? MILADY FLORES,PHD Blood 07/29/2023 12:1 4 PM CDT 07/29/2023 1:48 PM CDT Narrative [facility] - 08/01/2023 12:18 PM CDT Patient is employed by/enrolled at:->[facility] Medical [facility] Elier Akers MD LAB MICROBIOLOGY - GENERAL OR DERABLES Final Result Performing Organization Address City/State/ZIP Co ri Phone Number [facility] [address] [address] Department [place] [address] documented in this encounter Visit Diagnoses Diagnosis Pre-employment health screening examination- Primary Health examination of defined subpopulation Pre-employment health screening examination Health examination of defined subpopulation documented in this encounter Care Teams Solid Waste Facility Supervisor Relationship Specialty Start Date End Date No, Physician PCP - General 08/06/22 documented as of this encounter
--- OUTSIDE RECORDS SUMMARY | 2024-03-15 18:49 | XMS_ITS | Encounter Summary ---
Author Organization [facility] Healthcare Address [address] [place] [address] Care Team Providers Care Agriculture Laborer Name Role Phone No, Physician Primary Care Provider [phone] Reason for Referral * Cardiology (Routine) - Closed Specialty Diagnoses / Procedures Referred By Contac t Referred To Contact Diagnoses Supervision of other normal , antepartum Light headed Tachycardia Procedures ECG 12 lead Judy Luna MD [facility] [address] Phone: tel: fax: [address] [address] Referral ID Status Reason Start Date Expiration Date Visits Re quested Visits Authorized [id number] Closed 09/03/2023 2024 1 1 Encounter Details Date Type Department Care Team (Late st Contact Info) Description 09/03/2023 Telephone [facility] Obstetrical Gynecology [address] [facility] [address] [place] [address] Judy Luna MD [address] [place] [address] Social History Tobacco Use Types Packs/Day Years Used Date Smoking Tobacco: Never Alcohol Use Standard Drinks/Week Comments Never 0 (1 standard drink = 0.6 oz pur e alcohol) [place] Depression Scale Answer Date Recorded [place] Depression Scale Total 20 08/29/2023 The thought [...] - 4.5 mg/dL Comment:Testing performed by : [facility], [address] [place] [address], [place]., [address] Blood 09/04/2023 11:0 4 AM CDT 09/04/2023 2:02 PM CDT Judy Luna MD LAB BLOOD ORDERABLES Final R esult Performing Organization Address [facility] Co de Phone Number [address] [address] * Magnesium (09/04/2023 11:04 AM CDT) Pathologist [facility] Magnesium 2.0 1.4 - 2.5 mg/dL Comment:Testing performed by : [address] [address] Blood 09/04/2023 11:0 4 AM CDT 09/04/2023 2:02 PM CDT Judy Luna MD LAB BLOOD ORDERABLES Final R esult Performing Organization Address [facility] Co de Phone Number [address] [address] * Thyroid Function [place] (09/04/2023 11:04 AM CDT) [facility] TSH 1.05 0.30 - 4.20 mcIUnit/mL Comment:Testing performed by : [address] [address] Blood 09/04/2023 11:0 4 AM CDT 09/04/2023 2:02 PM CDT Judy Luna MD LAB BLOOD ORDERABLES Final R esult Performing Organization Address [facility] Co de Phone Number [address] [address] * (ABNORMAL) Iron profile w/ IBC (09/04/2023 11:04 AM CDT) [facility] Iron 64 35 - 145 mcg/dL Comment:Testing performed by : [address] [address] TIBC 419(H) 250 - 400 mcg/dL ALBERTO Comment:Testing performed by : [address] [address] Transferrin saturation 15(L) 20 - 50 % ALBERTO Comment:Testing performed by : [address] [address] Blood 09/04/2023 11:0 4 AM CDT 09/04/2023 2:02 PM CDT Judy Luna MD LAB BLOOD ORDERABLES Final R esult ALBERTO [address] [facility] Department [place] [address] * (ABNORMAL) Comprehensive metabolic panel (09/04/2023 11:04 AM CDT) Sodium 136 135 - 145 mmol/L Comment:Testing performed by : [address] [address] Potassium, pl 3.8 3.3 - 4.9 mmol/L ALBERTO Comment:Testing performed by : [address] [address] Chloride 102 97 - 110 mmol/L ALBERTO Comment:Testing performed by : [address] [address] CO2 21(L) 22 - 32 mmol/L ALBERTO Comment:Testing performed by : [address] [address] Anion gap 13 2 - 15 mmol/L ALBERTO Comment:Testing performed by : [address] [address] BUN 5(L) 6 - 25 mg/dL ALBERTO Comment:Testing performed by : [address] [address] Creatinine 0.30(L) 0.60 - 1.10 mg/dL ALBERTO Comment:Testing performed by : [address] [address] Glucose 72 70 - 199 mg/dL ALBERTO [...] was last revised 2022. Testing performed by: [address] [address] Calcium 8.6 8.5 - 10.3 mg/dL ALBERTO Comment:Testing performed by : [address] [address] Bilirubin, total 0.3 0.1 - 1.2 mg/dL ALBERTO Comment:Testing performed by : [address] [address] Protein, pl 6.7 6.5 - 8.5 g/dL ALBERTO Comment:Testing performed by : [address] [address] Albumin 4.0 3.5 - 5.0 g/dL ALBERTO Comment:Testing performed by : [address] [address] Alk phos 48 40 - 130 Units/L ALBERTO Comment:Testing performed by : [address] [address] ALT <5(L) 7 - 45 Units/L ALBERTO Comment:Testing performed by : [address] [address] AST 12 10 - 45 Units/L ALBERTO Comment:Testing performed by : [address] [address] Blood 09/04/2023 11:0 4 AM CDT 09/04/2023 2:02 PM CDT us Judy Luna MD LAB BLOOD ORDERABLES Final R esult ALBERTO [address] [facility] Department [place] [address] * (ABNORMAL) CBC without differential (09/04/2023 11:04 AM CDT) [facility] WBC 7.9 3.8 - 9.9 K/cumm Comment:Testing performed by : [address] [address] Hgb 11.6(L) 11.9 - 15.5 g/dL ALBERTO Comment:Testing performed by : [address] [address] Hct 36.5 35.6 - 45.5 % ALBERTO Comment:Testing performed by : [address] [address] Plt 225 150 - 400 K/cumm ALBERTO Comment:Testing performed by : [address] [address] MPV 11.5 9.1 - 12.3 fL ALBERTO Comment:Testing performed by : [address], [address] RBC 4.49 3.90 - 5.20 M/cumm ALBERTO Comment:Testing performed by : [address] [address] MCV 81.3 81.3 - 96.4 fL ALBERTO Comment:Testing performed by : [address] [address] MCH 25.8(L) 27.1 - 33.3 pg ALBERTO Comment:Testing performed by : [address] [address] MCHC 31.8(L) 32.3 - 35.7 g/dL ALBERTO Comment:Testing performed by : [address] [address] RDW CV 20.9(H) 11.1 - 14.9 % ALBERTO Comment:Testing performed by : [address], [address] RDW SD 59.1(H) 35.7 - 48.1 fL ALBERTO Comment:Testing performed by : [address], [address] NRBC abs 0.00 0.00 - 0.01 K/cumm ALBERTO DELUCA Comment:Testing performed by : [facility], [address] [place] [address]., [address] Blood 09/04/2023 11:0 4 AM CDT 09/04/2023 11:44 AM CDT Judy Luna MD LAB BLOOD ORDERABLES Final R esult ALBERTO [address] [facility] Department [place] [address] * ECG 12 lead (09/04/2023 9:00 AM CDT) Ventricular Rate EKG/Min 78 BPM [facility] Atrial Rate 78 BPM [facility] FL-Interval (MSEC) 150 ms [facility] QRS-Interval (MSEC) 72 ms [facility] QT-Interval (MSEC) 368 ms [facility] QTc 419 ms [facility] P [place] 53 degrees [facility] R [place] 65 degrees [facility] T [place] 31 degrees [facility] Diagnosis Normal sinus rhythm Normal ECG When compared with ECG of 24-FEB-2023 13:22, No significant change was found Confirmed by DWIGHT MORGAN M.D. ([id number]) on 09/04/2023 3:44:28 PM [facility] 09/04/2023 8:51 AM CDT 09/04/2023 3:44 PM CDT Judy Luna MD ECG ORDERABLES Final Result Performing Organization Address City/[facility]/ZIP Co de Phone Number [facility] G3 [facility] documented in this encounter Visit Diagnoses Diagnosis Supervision of other normal , antepartum- Primary Light headed Dizziness and giddiness Tachycardia Unspecified tachycardia documented in this encounter Care Teams Agriculture Laborer Relationship Specialty Start Date End Date No, Physician PCP - General 08/06/22 documented as of this encounter
--- OUTSIDE RECORDS SUMMARY | 2024-03-15 18:49 | XMS_ITS | Encounter Summary ---
Author Organization [facility] Healthcare Address [address] [place] [address] Care Team Providers Care Grab Setter Name Role Phone No, Physician Primary Care Provider [phone] Encounter Details Date Type Department Care Team (Latest Contact Info) Description 08/28/2023 5:00 PM CDT - 08/28/2023 6:13 PM CDT Hospital Encounter [facility] [address] [place] [phone] Garry Blair MD [address] [place] [phone] Discharge Disposition: Discharge to home or self care Social History Tobacco Use Types Packs/Day Years Used Date Smoking Tobacco: Never Alcohol Use Standard Drinks/Week Comments Never 0 (1 standard drink = 0.6 oz pur e alcohol) [place] Depression Scale Answer Date Recorded [place] Depression Scale Total 20 08/29/2023 The thought [...] encounter Medications at Time of Discharge vit 75-onpo-eszcf-dha 27mg iron- 800 mcg-250 mg capsule Take [...] 08/28/2023 documented in this encounter Care Teams Grab Setter Relationship Specialty Start Date End Date No, Physician PCP - General 08/06/22 documented as of this encounter
--- OUTSIDE RECORDS SUMMARY | 2024-03-15 18:49 | XMS_ITS | Encounter Summary ---
Author Organization [facility] Healthcare Address [address] [place] [address] Care Team Providers Care Coffee Sampler Name Role Phone No, Physician Primary Care Provider [phone] Reason for Visit * Reason Comments Iron Deficiency Iron infusion Encounter Details Date Type Department Care Team (Latest Contact Info) Description 08/21/2023 4:40 PM CDT - 08/21/2023 6:06 PM CDT Hospital Encounter [facility] [address] [place] [id number] Chip Esteves MD [address] [place] [phone] Garry Blair MD [address] [place] [phone] Discharge Disposition: Discharge to home or self [...] encounter Medications at Time of Discharge vit 76-owvj-nkzkk-dha 27mg iron- 800 mcg-250 mg capsule Take [...] 08/21/2023 documented in this encounter Care Teams Coffee Sampler Relationship Specialty Start Date End Date No, Physician PCP - General 08/06/22 documented as of this encounter
--- OUTSIDE RECORDS SUMMARY | 2024-03-15 18:49 | XMS_ITS | Encounter Summary ---
Author Organization [facility] Healthcare Address [address] [place] [address] Care Team Providers Care Carpet Measurer Name Role Phone No, Physician Primary Care Provider [phone] Encounter Details Date Type Department Care Team (Late st Contact Info) Description 04/16/2023 Telephone [facility] Medical Group Obstetrical Gynecology [address] [place] [address] [place] [phone] Haven Fox LPN Social History Tobacco [...] Pt aware to reach out to PCP. AL SALES AGENT * Telephone Encounter - Judy Luna MD - 04/16/2023 4:33 PM CST Also, she is a [facility] patient... AL SALES AGENT * Telephone Encounter - Judy Luna MD - 04/16/2023 4:32 PM CST If she is > 6 weeks , she needs to reach out to her PCP. Has she tried athlete's foot cream? Benadryl? Hydrocortisone? AL SALES AGENT * Telephone Encounter - Haven Fox LPN - 04/16/2023 3:56 PM CST Pt delivered 02/13/2023. Itching on the soles of feet started a week ago. She feels like she has toscratch her feet off. Labs and/or meds? AL SALES AGENT documented in this encounter Plan of Treatment Not on file documented as of this encounter Visit Diagnoses Not on filedocumented in this encounter Care Teams Carpet Measurer Relationship Specialty Start Date End Date No, Physician PCP - General 08/06/22 documented as of this encounter
--- OUTSIDE RECORDS SUMMARY | 2024-03-15 18:49 | XMS_ITS | Encounter Summary ---
Author Organization [facility] Healthcare Address [address] [place] [address] Care Team Providers Care Oracle Erp Developer Name Role Phone No, Physician Primary Care Provider [phone] Encounter Details Date Type Department Care Team (Late st Contact Info) Description 08/14/2023 Orders Only [facility] Medical Group Obstetrical Gynecology [address] [phone] Coni Matta MD [address] [facility] [address] [place] [address] Social History Tobacco Use Types [...] on filedocumented in this encounter Care Teams Oracle Erp Developer Relationship Specialty Start Date End Date No, Physician PCP - General 08/06/22 documented as of this encounter
--- OUTSIDE RECORDS SUMMARY | 2024-03-15 18:49 | XMS_ITS | Encounter Summary ---
Author Organization [facility] Healthcare Address [address] [place] [address] Care Team Providers Care Constitutional Law Professor Name Role Phone No, Physician Primary Care Provider [phone] Encounter Details Date Type Department Care Team ([facility] st Contact Info) Description 08/13/2023 Orders Only [facility] Medical Group Obstetrical Gynecology [address] [phone] Coni Matta MD [address] [address] Anemia affecting in first trimester [...] Primary documented in this encounter Care Teams Constitutional Law Professor Relationship Specialty Start Date End Date No, Physician PCP - General 08/06/22 documented as of this encounter
--- OUTSIDE RECORDS SUMMARY | 2024-03-15 18:49 | XMS_ITS | Encounter Summary ---
Author Organization [facility] Healthcare Address [address] [place] [address] Care Team Providers Care Appliance Service Supervisor Name Role Phone No, Physician Primary Care Provider [phone] Encounter Details Date Type Department Care Team (Late st Contact Info) Description 09/04/2023 10:55 AM CDT [facility] Building [address] [address] Supervision of other normal , antepartum; Light headed; Tachycardia Social History Tobacco Use Types Packs/Day Years Used Date Smoking Tobacco: Never Alcohol Use Standard Drinks/Week Comments Never 0 (1 standard drink = 0.6 oz pur e alcohol) [place] Depression Scale Answer Date Recorded [place] Depression Scale Total 20 08/29/2023 The thought [...] was last reviewed 2021. Testing performed by: [address] [address] Blood 09/04/2023 11:0 4 AM CDT 09/04/2023 2:02 PM CDT us Judy Luna MD LAB BLOOD ORDERABLES Final R esult [facility] Department [place] [address] * (ABNORMAL) CBC without differential (09/04/2023 11:04 AM CDT) WBC 7.9 3.8 - 9.9 K/cumm Comment:Testing performed by : [address] [address] Hgb 11.6(L) 11.9 - 15.5 g/dL ALBERTO DELUCA Comment:Testing performed by : [address] [address] Hct 36.5 35.6 - 45.5 % ALBERTO DELUCA Comment:Testing performed by : [address] [address] Plt 225 150 - 400 K/cumm ALBERTO DELUCA Comment:Testing performed by : [address] [address] MPV 11.5 9.1 - 12.3 fL ALBERTO DELUCA Comment:Testing performed by : [address] [address] RBC 4.49 3.90 - 5.20 M/cumm ALBERTO DELUCA Comment:Testing performed by : [address] [address] MCV 81.3 81.3 - 96.4 fL ALBERTO DELUCA Comment:Testing performed by : [address] [address] MCH 25.8(L) 27.1 - 33.3 pg ALBERTO DELUCA Comment:Testing performed by : [address] [address] MCHC 31.8(L) 32.3 - 35.7 g/dL ALBERTO DELUCA Comment:Testing performed by : [address] [address] RDW CV 20.9(H) 11.1 - 14.9 % ALBERTO DELUCA Comment:Testing performed by : [address] [address] RDW SD 59.1(H) 35.7 - 48.1 fL ALBERTO DELUCA Comment:Testing performed by : [address] [address] NRBC abs 0.00 0.00 - 0.01 K/cumm ALBERTO Comment:Testing performed by : [address] [address] Blood 09/04/2023 11:0 4 AM CDT 09/04/2023 11:44 AM CDT Judy Luna MD LAB BLOOD ORDERABLES Final R esult AL[facility]ERTO [address] [facility] Department of Laboratories [place], [place] [id number] * (ABNORMAL) Comprehensive metabolic panel (09/04/2023 11:04 AM CDT) Sodium 136 135 - 145 mmol/L Comment:Testing performed by : [address] [address] Potassium, pl 3.8 3.3 - 4.9 mmol/L ALBERTO DELUCA Comment:Testing performed by : [address] [address] Chloride 102 97 - 110 mmol/L ALBERTO DELUCA Comment:Testing performed by : [address] [address] CO2 21(L) 22 - 32 mmol/L ALBERTO Comment:Testing performed by : [address] [address] Anion gap 13 2 - 15 mmol/L ALBERTO Comment:Testing performed by : [address] [address] BUN 5(L) 6 - 25 mg/dL ALBERTO Comment:Testing performed by : [address] [address] Creatinine 0.30(L) 0.60 - 1.10 mg/dL ALBERTO Comment:Testing performed by : [address] [address] Glucose 72 70 - 199 mg/dL ALBERTO [...] was last revised 2022. Testing performed by: [address] [address] Calcium 8.6 8.5 - 10.3 mg/dL ALBERTO Comment:Testing performed by : [address] [address] Bilirubin, total 0.3 0.1 - 1.2 mg/dL [facility] Comment:Testing performed by : [address] [address] Protein, pl 6.7 6.5 - 8.5 g/dL ALBERTO Comment:Testing performed by : [address] [address] Albumin 4.0 3.5 - 5.0 g/dL ALBERTO Comment:Testing performed by : [address] [address] Alk phos 48 40 - 130 Units/L ALBERTO DELUCA Comment:Testing performed by : [address] [address] ALT <5(L) 7 - 45 Units/L ALBERTO DELUCA Comment:Testing performed by : [address] [address] AST 12 10 - 45 Units/L ALBERTO Comment:Testing performed by : [address] [address] Blood 09/04/2023 11:0 4 AM CDT 09/04/2023 2:02 PM CDT Judy Luna MD LAB BLOOD ORDERABLES Final R esult Performing Organization Address City/[facility] Co de Phone Number ALBERTO [address] [place] [address] * (ABNORMAL) Iron profile w/ IBC (09/04/2023 11:04 AM CDT) Iron 64 35 - 145 mcg/dL Comment:Testing performed by : [address] [address] TIBC 419(H) 250 - 400 mcg/dL ALBERTO Comment:Testing performed by : [address] [address] Transferrin saturation 15(L) 20 - 50 % ALBERTO Comment:Testing performed by : [address] [address] Blood 09/04/2023 11:0 4 AM CDT 09/04/2023 2:02 PM CDT Judy Luna MD LAB BLOOD ORDERABLES Final R esult Performing Organization Address City/[facility] Co de Phone Number ALBERTO [address] [place] [address] * Thyroid Function [place] (09/04/2023 11:04 AM CDT) TSH 1.05 0.30 - 4.20 mcIUnit/mL Comment:Testing performed by : [address] [address] Blood 09/04/2023 11:0 4 AM CDT 09/04/2023 2:02 PM CDT Judy Luna MD LAB BLOOD ORDERABLES Final R esult Performing Organization Address City/[facility]/ZIP Co de Phone Number ALBERTO [address] [address] * Magnesium (09/04/2023 11:04 AM CDT) Magnesium 2.0 1.4 - 2.5 mg/dL Comment:Testing performed by : [address] [address] Blood 09/04/2023 11:0 4 AM CDT 09/04/2023 2:02 PM CDT Judy Luna MD LAB BLOOD ORDERABLES Final R esult Performing Organization Address [facility] Co de Phone Number LISA[address] [address] * Phosphorus (09/04/2023 11:04 AM CDT) Phosphorus, pl 3.0 2.3 - 4.5 mg/dL Comment:Testing performed by : [address] [address] Blood 09/04/2023 11:0 4 AM CDT 09/04/2023 2:02 PM CDT Judy Luna MD LAB BLOOD ORDERABLES Final R esult Performing Organization Address City/[facility] Co de Phone Number ALBERTO [address] [address] documented in this encounter Visit Diagnoses Diagnosis Supervision of other normal , antepartum Light headed Dizziness and giddiness Tachycardia Unspecified tachycardia documented in this encounter Care Teams Appliance Service Supervisor Relationship Specialty Start Date End Date No, Physician PCP - General 08/06/22 documented as of this encounter
--- OUTSIDE RECORDS SUMMARY | 2024-03-15 18:49 | XMS_ITS | Encounter Summary ---
Author Organization [facility] Healthcare Address [address] [place] [address] Care Team Providers Care An/Sqq 89(V)15 Sonar System Journeyman Name Role Phone No, Physician Primary Care Provider [phone] Encounter Details Date Type Department Care Team ([facility] st Contact Info) Description 08/29/2023 Telephone [facility] Medical [facility] Obstetrical Gynecology [address] [phone] Chip Esteves MD [address] [address] Social History Tobacco Use Types Packs/Day Years Used Date Smoking Tobacco: Never Alcohol Use Standard Drinks/Week Comments Never 0 (1 standard drink = 0.6 oz pur e alcohol) [place] Depression Scale Answer Date Recorded [place] Depression Scale Total 20 08/29/2023 The thought [...] counselor. Hx of cutting Can chat on [employer] too if need be documented in this encounter Plan of Treatment Not on file documented as of this encounter Visit Diagnoses Diagnosis Anxiety and depression- Primary documented in this encounter Care Teams An/Sqq 89(V)15 Sonar System Journeyman Relationship Specialty Start Date End Date No, Physician PCP - General 08/06/22 documented as of this encounter
--- OUTSIDE RECORDS SUMMARY | 2024-03-15 18:49 | XMS_ITS | Encounter Summary ---
Author Organization [facility] Healthcare Address [address] [place] [address] Care Team Providers Care Collection Analyst Name Role Phone No, Physician Primary Care Provider [phone] Reason for Visit * Reason Comments Initial Visit Encounter Details Date Type Department Care Team (Late st Contact Info) Description 08/12/2023 1:00 PM CDT Clinical Support [facility] Medical Group Obstetrical Gynecology [facility] [phone] Social History Tobacco Use Types [...] 08/12/2023 1:00 PM CDT Patient transfer from [place]. [place] only completed dating US. No US completed [...] or headaches Therapy completed 02/21/2023 08/12/2023 vit [id number] 27mg iron- 800 mcg-250 mg capsule Take 1 tablet by mouth daily Therapy completed 08/12/2023 documented as of this encounter Historical Medications * This list may reflect changes made after this encounter. vit [id number] 27mg iron- 800 mcg-250 mg capsule Take by mouth added in this encounter Care Teams Collection Analyst Relationship Specialty Start Date End Date No, Physician PCP - General 08/06/22 documented as of this encounter
--- OUTSIDE RECORDS SUMMARY | 2024-03-15 18:49 | XMS_ITS | Encounter Summary ---
Author Organization [facility] Healthcare Address [address] [place] [address] Care Team Providers Care Campus Recruiter Name Role Phone No, Physician Primary Care Provider [phone] Encounter Details Date Type Department Care Team (Late st Contact Info) Description 08/12/2023 2:[address] [facility] Building [address] [address] Encounter for supervision of other normal in [...] last reviewed 2021. Testing performed by: [facility], [address] [place] [address]., [address] Blood 08/12/2023 2:21 PM CDT 08/12/2023 4:17 PM CDT us Coni Matta MD LAB BLOOD ORDERABLES Final Res ult LISAWAE [address] [facility] Department [place] [address] * Antibody screen (08/12/2023 2:21 PM CDT) Delilah, indirect, Gel Interpretation Negative ABSC Comment:Testing performed by : [address] [address] Blood 08/12/2023 2:21 PM CDT 08/12/2023 4:16 PM CDT Narrative ALBERTO - 08/12/2023 5:09 PM CDT Has the patient had Daratumumab or Isatuximab in the past 6 months?->Unknown Hx of or candidate for Bone Marrow/Stem Cell transplant?->No Coni Matta MD LAB BLOOD BANK TEST ORDERABLES Final Result Performing Organization Address [facility] Co de Phone Number [address] [place] [address] * ABO/Rh (08/12/2023 2:21 PM CDT) Pathologist [facility] ABO/Rh A Positive Comment:Testing performed by : [address] [address] Blood 08/12/2023 2:21 PM CDT 08/12/2023 4:16 PM CDT Narrative [facility] 08/12/2023 4:55 PM CDT Has the patient had Daratumumab or Isatuximab in the past 6 months?->Unknown Hx of or candidate for Bone Marrow/Stem Cell transplant?->No Coni Matta MD LAB BLOOD BANK TEST ORDERABLES Final Result Performing Organization Address [facility] Co de Phone Number [address] [place] [address] * (ABNORMAL) CBC without differential (08/12/2023 2:21 PM CDT) Pathologist [facility] WBC 7.6 3.8 - 9.9 K/cumm Comment:Testing performed by : [address] [address] Hgb 10.0(L) 11.9 - 15.5 g/dL ALBERTO Comment:Testing performed by : [address] [address] Hct 32.0(L) 35.6 - 45.5 % ALBERTO Comment:Testing performed by : [address] [address] Plt 234 150 - 400 K/cumm ALBERTO Comment:Testing performed by : [address] [address] MPV 12.3 9.1 - 12.3 fL ALBERTO Comment:Testing performed by : [address], [address] RBC 4.13 3.90 - 5.20 M/cumm ALBRETO Comment:Testing performed by : [address] [address] MCV 77.5(L) 81.3 - 96.4 fL ALBERTO Comment:Testing performed by : [address] [address] MCH 24.2(L) 27.1 - 33.3 pg ALBERTO Comment:Testing performed by : [address] [address] MCHC 31.3(L) 32.3 - 35.7 g/dL ALBERTO Comment:Testing performed by : [address] [address] RDW CV 14.4 11.1 - 14.9 % ALBERTO Comment:Testing performed by : [address] [address] RDW SD 40.1 35.7 - 48.1 fL ALBERTO Comment:Testing performed by : [address] [address] NRBC abs 0.00 0.00 - 0.01 K/cumm ALBERTO Comment:Testing performed by : [address] [address] Blood 08/12/2023 2:21 PM CDT 08/12/2023 4:17 PM CDT us Coni Matta MD LAB BLOOD ORDERABLES Final Res ult ALBERTO [address] [facility] Department [place] [address] * Drugs of Abuse Screen, Urine with Reflex Confirmation (08/12/2023 2:21 PM CDT) [facility] Amphetamine, ur Not Detected CutOff 500ng/mL Comment: Interpretive Data - Amphetamines: ??Samples containing greater than 500 ng/mL d-methamphetamine ??or other cross-reacting amphetamine compounds are reported as positive. ??Amphetamine immunoassays are subject to significant false positive rates due to cross-reactivity of non-amphetamine drugs. Confirmatory testing required for definitive results. Current Interpretive Data was last reviewed 2022. Testing performed by: [address] [address] Barbiturates, ur Not Detected CutOff 200ng/mL ALBERTO Comment: Interpretive Data - Barbiturates: ??Samples containing greater than 200 ng/mL secobarbital or other cross-reacting barbiturate compounds are reported as positive. ??False positive and false negative results are possible. Confirmatory testing required for definitive results. Current Interpretive Data was last reviewed 2022. Testing performed by: [facility], [address] [place] [address]., [address] Benzodiazepines, ur Not Detected CutOff 100ng/mL ALBERTO Comment: Interpretive Data - Benzodiazepines: ??Samples containing greater than 100 ng/mL nordiazepam or other cross-reacting compounds are reported as positive. False positive and false negative results are possible. Confirmatory testing required for definitive results. Current Interpretive Data was last reviewed 2022. Testing performed by: [address] [address] Cannabinoids, ur Not Detected CutOff 50 ng/mL ALBERTO Comment: Interpretive Data - Cannabinoids: ??Samples containing greater than 50 ng/mL delta-9 THC -COOH or other cross-reacting compounds are reported as positive. ??False positive and false negative results are possible. ??Confirmatory testing required for definitive results. Current Interpretive Data was last reviewed 2022. Testing performed by: [address] [address] Cocaine, ur Not Detected CutOff 150ng/mL [facility] Comment: Interpretive Data - Cocaine: ??Samples containing greater than 150 ng/mL benzoylecgonine or other cross-reacting compounds are reported as positive. False positive and false negative results are possible. Confirmatory testing required for definitive results. Current Interpretive Data was last reviewed 2022. Testing performed by: [address] [address] Fentanyl, Ur Not Detected Cutoff 1 ng/mL [facility] Comment: Interpretive Data - Fentanyl: ??Samples containing greater than 1 ng/mL fentanyl or other cross-reacting fentanyl compounds are reported as positive. ??False positive and false negative results are possible. Confirmatory testing required for definitive results. Current Interpretive Data was last reviewed 2022. Testing performed by: [address] [address] Methadone, ur Not Detected CutOff 300ng/mL [facility] Comment: Interpretive Data - Methadone: ??Samples containing greater than 300 ng/mL d,l-methadone or other cross-reacting compounds are reported as positive. ??False positive and false negative results are possible. Confirmatory testing required for definitive results. Current Interpretive Data was last reviewed 2022. Testing performed by: [address] [address] Opiates, ur Not Detected CutOff 300ng/mL [facility] Comment: Interpretive Data - Opiates: ??Samples containing greater than 300 ng/mL morphine or other cross-reacting compounds are reported as positive. ??False positive and false negative results are possible. Confirmatory testing required for definitive results. Current Interpretive Data was last reviewed 2022. Testing performed by: [address] [address] Oxycodone, ur Not Detected CutOff 100ng/mL [facility] Comment: Interpretive Data - Oxycodone: ??Samples containing greater than 100 ng/mL oxycodone or other cross-reacting compounds are reported as ??positive. ??False positive and false negative results are possible. Confirmatory testing required for definitive results. Current Interpretive Data was last reviewed 2022. Testing performed by: [address] [address] Phencyclidine, ur Not Detected CutOff 25 ng/mL ALBERTO Comment: Interpretive Data - Phencyclidine: ??Samples containing greater than 25 ng/mL phencyclidine or other cross-reacting compounds are reported as positive. ??False positive and false negative results are possible. Confirmatory testing required for definitive results. Current Interpretive Data was last reviewed 2022. Testing performed by: [address] [address] Urine Creatinine 26 mg/dL ALBERTO Comment: Interpretive Data Urine Creatinine: < 10 mg/dL is extremely dilute = or > 10 but < 20 mg/dL is dilute = or > 20 mg/dL is normal Current Interpretive Data was last revised on 2017. Testing performed by: [address] [address] Urine 08/12/2023 2:21 PM CDT 08/12/2023 4:22 PM CDT Narrative ALBERTO - 08/12/2023 5:24 PM CDT Drug of Abuse screening is performed by immunoassay for medical purposes only. ??This is not to be used for Pain Management purposes. ??If Detected, confirmation testing will be performed for Amphetamines, Cocaine, Fentanyl, Methadone, Opiates, Oxycodone or Phencyclidine. Coni Matta MD LAB URINE ORDERABLES Final Res ult [facility] [address] [facility] Department [place] [address] * Hemoglobin A1c (08/12/2023 2:21 PM CDT) [facility] Hgb A1C 5.6 4.0 - 5.6 % Comment:Testing performed by : [address] [address] Estimated Average Glucose 114 mg/dL ALBERTO Comment: The ADA recommends reporting an estimated Average Glucose (eAG) with all Hemoglobin A1c results using the equation derived from a study of 507 normal and diabetic adults. ??Minority populations were underrepresented and children were not included. ?? (Diabetes Care 31:0724-5869, 2008). ??The eAG is not equivalent to a fasting glucose. Testing performed by: [facility], [address] [place] [address]., [address] Blood 08/12/2023 2:21 PM CDT 08/12/2023 4:21 PM CDT us Coni Matta MD LAB BLOOD ORDERABLES Final Res ult ALBERTO [address] [facility] Department [place] [address] * (ABNORMAL) Hemoglobin analysis by electrophoresis (08/12/2023 2:21 PM CDT) RBC 4.17 3.90 - 5.20 M/cumm Comment:Testing performed by : [facility], [address] [place], [address] Hgb 9.8(L) 11.9 - 15.5 g/dL ALBERTO DELUCA Comment:Testing performed by : [facility], [address] [place]., [address] MCV 77.9(L) 81.3 - 96.4 fL ALBERTO DELUCA Comment:Testing performed by : [facility], [address] [place]., [address] Rdw 14.7 11.1 - 14.9 % ALBERTO DELUCA Comment:Testing performed by : [facility], [address] [place]., [address] Hgb electrophores is, interp Normal Hemoglobin Pattern - For Age ALBERTO DELUCA Comment:Testing performed by : [facility], [address] [place], [address] Hgb A 97.6 96.0 - 98.5 % ALBERTO Comment:Testing performed by : [facility], [address] [place], [address] Hgb A2 2.4 1.5 - 3.2 % ALBERTO Comment:Testing performed by : [facility], [address] [place]., [address] Hgb F <0.4 0.0 - 0.9 % ALBERTO Comment:Testing performed by : [facility], [address] [place]., [address] Blood 08/12/2023 2:21 PM CDT 08/12/2023 7:19 PM CDT Coni Matta MD LAB BLOOD ORDERABLES Final Res ult Performing Organization Address [facility] Co de Phone Number [address] [place] [address] * Hepatitis B Surface Antigen Blood (08/12/2023 2:21 PM CDT) Pathologist [facility] HepBsAg Nonreactive Nonreactive Blood 08/12/2023 2:21 PM CDT 08/12/2023 7:29 PM CDT Coni Matta MD LAB MICROBIOLOGY - GENERAL ORD ERABLES Final Result Performing Organization Address [facility] de Phone Number [address] [place] [address] * Hepatitis C antibody Blood (08/12/2023 2:21 PM CDT) [facility] Hep C Ab Nonreactive Nonreactive Comment: Antibodies [...] Edited Result - Final Performing Organization Address [facility] Co de Phone Number ALBERTO [address] [place] [address] * HIV 1/2 Antibody plus p24 Antigen [...] ORD ERABLES Final Result Performing Organization Address [facility] Co de Phone Number ALBERTO [address] [place] [address] * RPR Blood (08/12/2023 2:21 PM CDT) RPR Nonreactive Nonreactive Comment:Testing performed by : [facility], [address] [place]., [address] Blood 08/12/2023 2:21 PM CDT 08/12/2023 7:20 PM CDT Coni Matta MD LAB MICROBIOLOGY - GENERAL ORD ERABLES Final Result Performing Organization Address City/[facility]/ZIP Co de Phone Number ALBERTO [address] [place] [address] * Rubella IgG antibody Blood (08/12/2023 2:21 PM CDT) Rubella IgG Reactive Reactive Blood 08/12/2023 2:21 PM CDT 08/12/2023 7:29 PM CDT Coni Matta MD LAB MICROBIOLOGY - GENERAL ORD ERABLES Final Result Performing Organization Address [facility] Co de Phone Number [address] [place] [address] * Urine culture Urine, clean voided (08/12/2023 2:21 PM CDT) Report Final Report: Growth indicative of contamination with periurethral marcos. Please submit a new specimen with special attention given to the collection process and to prompt transport to the laboratory. Comment:Testing performed by : [facility], [address] [place]., [address] Organism GROWTH INDICATES CONTAM WITH PERIURETHRAL MARCOS. ALBERTO DELUCA Urine, clean voided 08/12/2023 2:21 PM CDT 08/12/2023 7:55 PM CDT Narrative ALBERTO - 08/14/2023 11:40 AM CDT Testing performed by [facility] ([phone]) Coni Matta MD LAB MICROBIOLOGY - GENERAL ORD ERABLES Final Result Performing Organization Address [facility] Co de Phone Number [facility] [address] [facility] Department [place] [address] * Protein / creatinine ratio, urine, random (08/12/2023 2:21 PM CDT) Protein, ur, quant <4.0 mg/dL Comment: Interpretive Data No reference range established. Current interpretive data was last revised 2018. Testing performed by: [facility], [address] [place] [address]., [address] Creatinine Ur 25.3 mg/dL ALBERTO Comment: Interpretive Data No reference range established. Current interpretive data was last revised 2018. Testing performed by: [address] [address] Protein/creatinin e ratio <158.1 0.0 - 180.0 mg/g CR ALBERTO Comment:Testing performed by : [address] [address] Urine 08/12/2023 2:21 PM CDT 08/12/2023 4:22 PM CDT us Coni Matta MD LAB URINE ORDERABLES Final Res ult ALBERTO [address] [facility] Department [place] [address] * (ABNORMAL) Comprehensive metabolic panel (08/12/2023 2:21 PM CDT) Sodium 138 135 - 145 mmol/L Comment:Testing performed by : [address] [address] Potassium, pl 3.9 3.3 - 4.9 mmol/L ALBERTO Comment:Testing performed by : [address] [address] Chloride 104 97 - 110 mmol/L ALBERTO Comment:Testing performed by : [address] [address] CO2 21(L) 22 - 32 mmol/L ALBERTO Comment:Testing performed by : [address] [address] Anion gap 13 2 - 15 mmol/L ALBERTO Comment:Testing performed by : [address] [address] BUN 6 6 - 25 mg/dL ALBERTO Comment:Testing performed by : [address] [address] Creatinine 0.40(L) 0.60 - 1.10 mg/dL ALBERTO Comment:Testing performed by : [address] [address] Glucose 90 70 - 199 mg/dL ALBERTO [...] was last revised 2022. Testing performed by: [address] [address] Calcium 9.4 8.5 - 10.3 mg/dL ALBERTO Comment:Testing performed by : [address] [address] Bilirubin, total 0.3 0.1 - 1.2 mg/dL ALBERTO Comment:Testing performed by : [address] [address] Protein, pl 7.4 6.5 - 8.5 g/dL ALBERTO Comment:Testing performed by : [address] [address] Albumin 4.0 3.5 - 5.0 g/dL [facility] Comment:Testing performed by : [address] [address] Alk phos 56 40 - 130 Units/L ALBERTO Comment:Testing performed by : [address] [address] ALT 11 7 - 45 Units/L ALBERTO Comment:Testing performed by : [address] [address] AST 14 10 - 45 Units/L [facility] Comment:Testing performed by : [address] [address] Blood 08/12/2023 2:21 PM CDT 08/12/2023 4:17 PM CDT us Coni Matta MD LAB BLOOD ORDERABLES Final Res ult ALBERTO DELUCA [address] [facility] Department [place] [address] documented in this encounter Visit Diagnoses Diagnosis Encounter for supervision of other normal in first trimester documented in this encounter Care Teams Campus Recruiter Relationship Specialty Start Date End Date No, Physician PCP - General 08/06/22 documented as of this encounter
--- OUTSIDE RECORDS SUMMARY | 2024-03-15 18:49 | XMS_ITS | Encounter Summary ---
Author Organization [facility] Healthcare Address [address] [place] [address] Care Team Providers Care Deep Fryer Assembler Name Role Phone No, Physician Primary Care Provider [phone] Encounter Details Date Type Department Care Team (Latest Contact Info) Description 08/14/2023 12:16 PM CDT - 08/14/2023 11:59 PM CDT Hospital Encounter [facility] Building [address] [address] Encounter for supervision of other normal in [...] encounter Medications at Time of Discharge vit 84-[id number]-[id number]-dha 27mg iron- 800 mcg-250 mg capsule Take [...] allergic patients, please contact the laboratory at [phone] to request susceptibility testing * ??* ??* [...] with periurethral marcos.(.) Comment:Testing performed by : [facility], [address] [facility] [place]., [address] Organism GROWTH INDICATES CONTAM WITH PERIURETHRAL MARCOS. ALBERTO Organism STREPTOCOCCUS AGALACTIAE (GROUP B STREPTOCOCCI) ALBERTO DELUCA Urine, clean voided 08/14/2023 10:16 AM CDT 08/14/2023 7:18 PM CDT Narrative ALBERTO DELUCA - 08/18/2023 3:43 PM CDT Testing performed by [facility] Microbiology Laboratory ([phone]) us Coni Matta MD LAB MICROBIOLOGY - GENERAL ORD ERABLES Final Result ALBERTO [address] [facility] Department [place] [address] documented in this encounter Visit Diagnoses Diagnosis Encounter for supervision of other normal in first trimester documented in this encounter Care Teams Deep Fryer Assembler Relationship Specialty Start Date End Date No, Physician PCP - General 08/06/22 documented as of this encounter
--- OUTSIDE RECORDS SUMMARY | 2024-03-15 18:49 | XMS_ITS | Encounter Summary ---
Author Organization [facility] Healthcare Address [address] [place] [address] Care Team Providers Care General Sales Manager Name Role Phone No, Physician Primary Care Provider [phone] Reason for Visit * Reason Comments Initial Visit Encounter Details Date Type Department Care Team ([facility] st Contact Info) Description 08/12/2023 1:45 PM CDT Initial [facility] Medical Group Obstetrical Gynecology [address] [phone] Coni Matta MD [address] [address] [place]: [id number] Social History Tobacco [...] CNM 6 Current Past medical, surgical, and HOME CARE COORDINATOR history fully reviewed. ROS Objective: BP 100/58 [...] 12:22 PM CDT) Trichomonas DNA Not Detected [facility] Comment: Interpretive Data This assay detects Trichomonas vaginalis by nucleic acid amplification testing (NAAT). This assay has been cleared by the [place] Food and Drug administration. The performance characteristics of this test have been verified by the [facility] Molecular Infectious Disease laboratory. The performance of this test has not been evaluated in individuals less than 18 years of age. ?? Current Interpretive Data was last revised on 2023. Testing performed by: [facility], [address] [place]., [address] Urine 08/16/2023 12:2 2 PM CDT 08/16/2023 8:22 PM CDT Coni Matta MD LAB MICROBIOLOGY - GENERAL ORD ERABLES Final Result ALBERTO [address] [facility] Department [place] [address] [facility] * N. gonorrhoeae/C. trachomatis Amplification Urine (08/16/2023 12:22 PM CDT) C. trachomatis Not Detected [facility] Comment:Testing performed by : [facility], [address] [place]., [address] N. gonorrhoeae Not Detected [facility] Comment: Interpretive Data This assay detects Chlamydia trachomatis and Neisseria gonorrhoeae by nucleic acid amplification testing (NAAT). This assay has been cleared by the [place] Food and Drug administration. The performance characteristics of this test have been verified by the [facility] Molecular Infectious Disease laboratory. The performance characteristics of this test have not been evaluated in individuals less than 14 years of age. Current Interpretive Data was last revised on 2023. Testing performed by: [facility], [address] [place]., [address] Urine (None) 08/16/2023 12:2 2 PM CDT 08/16/2023 8:22 PM CDT Coni Matta MD LAB MICROBIOLOGY - GENERAL ORD ERABLES Final Result ALBERTO [address] [facility] Department [place] [address] [facility] * (ABNORMAL) Comprehensive metabolic panel (08/12/2023 2:21 PM CDT) Sodium 138 135 - 145 mmol/L Comment:Testing performed by : [address] [address] Potassium, pl 3.9 3.3 - 4.9 mmol/L ALBERTO Comment:Testing performed by : [address] [address] Chloride 104 97 - 110 mmol/L ALBERTO Comment:Testing performed by : [address] [address] CO2 21(L) 22 - 32 mmol/L ALBERTO Comment:Testing performed by : [address] [address] Anion gap 13 2 - 15 mmol/L ALBERTO Comment:Testing performed by : [address] [address] BUN 6 6 - 25 mg/dL ALBERTO Comment:Testing performed by : [address] [address] Creatinine 0.40(L) 0.60 - 1.10 mg/dL ALBERTO Comment:Testing performed by : [address] [address] Glucose 90 70 - 199 mg/dL ALBERTO [...] was last revised 2022. Testing performed by: [address] [place] [address] Calcium 9.4 8.5 - 10.3 mg/dL ALBERTO Comment:Testing performed by : [address] [address] Bilirubin, total 0.3 0.1 - 1.2 mg/dL ALBERTO Comment:Testing performed by : [address] [address] Protein, pl 7.4 6.5 - 8.5 g/dL ALBERTO Comment:Testing performed by : [address] [address] Albumin 4.0 3.5 - 5.0 g/dL ALBERTO Comment:Testing performed by : [address] [address] Alk phos 56 40 - 130 Units/L ALBERTO Comment:Testing performed by : [address] [address] ALT 11 7 - 45 Units/L ALBERTO Comment:Testing performed by : [address] [address] AST 14 10 - 45 Units/L ALBERTO Comment:Testing performed by : [address] [address] Blood 08/12/2023 2:21 PM CDT 08/12/2023 4:17 PM CDT us Coni Matta MD LAB BLOOD ORDERABLES Final Res ult [facility] [address] [facility] Department of Laboratories [place], [place] [id number] * Protein / creatinine ratio, urine, random (08/12/2023 2:21 PM CDT) Protein, ur, quant <4.0 mg/dL Comment: Interpretive Data No reference range established. Current interpretive data was last revised 2018. Testing performed by: [address] [address] Creatinine Ur 25.3 mg/dL ALBERTO DELUCA Comment: Interpretive Data No reference range established. Current interpretive data was last revised 2018. Testing performed by: [facility], [address] [place] [address]., [address] Protein/creatinin e ratio <158.1 0.0 - 180.0 mg/g CR ALBERTO DELUCA Comment:Testing performed by : [facility], [address] [place] [address]., [address] Urine 08/12/2023 2:21 PM CDT 08/12/2023 4:22 PM CDT us Coni Matta MD LAB URINE ORDERABLES Final Res ult Performing Organization Address City/[facility]/ZIP Co de Phone Number ALBERTO [address] [facility] [employer] [place] [address] * Urine culture Urine, clean voided (08/12/2023 2:21 PM CDT) Report Final Report: Growth indicative of contamination with periurethral janeth. Please submit a new specimen with special attention given to the collection process and to prompt transport to the laboratory. Comment:Testing performed by : [facility], [address] [facility] [place]., [address] Organism GROWTH INDICATES CONTAM WITH PERIURETHRAL JANETH. ALBERTO DELUCA Urine, clean voided 08/12/2023 2:21 PM CDT 08/12/2023 7:55 PM CDT Narrative ALBERTO DELUCA - 08/14/2023 11:40 AM CDT Testing performed by [facility] Microbiology Laboratory ([phone]) us Coni Matta MD LAB MICROBIOLOGY - GENERAL ORD ERABLES Final Result Performing Organization Address City/[facility]/ZIP Co de Phone Number ALBERTO [address] [facility] [place] [address] * Rubella IgG antibody Blood (08/12/2023 2:21 PM CDT) Rubella IgG Reactive Reactive Blood 08/12/2023 2:21 PM CDT 08/12/2023 7:29 PM CDT Coni Matta MD LAB MICROBIOLOGY - GENERAL ORD ERABLES Final Result Performing Organization Address City/[facility] Co de Phone Number ALBERTO [address] [place] [address] * RPR Blood (08/12/2023 2:21 PM CDT) Pathologist [facility] RPR Nonreactive Nonreactive Comment:Testing performed by : [facility], 1 [facility], [place]., [address] Blood 08/12/2023 2:21 PM CDT 08/12/2023 7:20 PM CDT Coni Matta MD LAB MICROBIOLOGY - GENERAL ORD ERABLES Final Result Performing Organization Address [facility] Co de Phone Number [address] [address] * HIV 1/2 Antibody plus p24 Antigen Blood (08/12/2023 2:21 PM CDT) Pathologist [facility] HIV 1/2 ab + p24 ag Nonreactive [...] ORD ERABLES Final Result Performing Organization Address City/[facility] Co de Phone Number LISA[address] [place] [address] * Hepatitis C antibody Blood (08/12/2023 2:21 PM CDT) Pathologist [facility] Hep C Ab Nonreactive Nonreactive [...] Edited Result - Final Performing Organization Address [facility] Co de Phone Number [place] [phone] [facility] [place] [address] * Hepatitis B Surface Antigen Blood (08/12/2023 2:21 PM CDT) Pathologist [facility] HepBsAg Nonreactive Nonreactive Blood 08/12/2023 2:21 PM CDT 08/12/2023 7:29 PM CDT Coni Matta MD LAB MICROBIOLOGY - GENERAL ORD ERABLES Final Result Performing Organization Address [facility] de Phone Number [place] [id number] [facility] [place] [address] * (ABNORMAL) Hemoglobin analysis by electrophoresis (08/12/2023 2:21 PM CDT) RBC 4.17 3.90 - 5.20 M/cumm Comment:Testing performed by : [facility], [address] [facility]., [address] Hgb 9.8(L) 11.9 - 15.5 g/dL ALBERTO DELUCA Comment:Testing performed by : [facility], [address] [facility]., [address] MCV 77.9(L) 81.3 - 96.4 fL ALBERTO DELUCA Comment:Testing performed by : [facility], 1 [facility], [address] Rdw 14.7 11.1 - 14.9 % ALBERTO DELUCA Comment:Testing performed by : [facility], 1 [facility], [address] Hgb electrophores is, interp Normal Hemoglobin Pattern - For Age ALBERTO DELUCA Comment:Testing performed by : [facility], 1 [facility], [address] Hgb A 97.6 96.0 - 98.5 % ALBERTO DELUCA Comment:Testing performed by : [facility], 1 [facility], [address] Hgb A2 2.4 1.5 - 3.2 % ALBERTO DELUCA Comment:Testing performed by : [facility], 1 [facility], [address] Hgb F <0.4 0.0 - 0.9 % ALBERTO DELUCA Comment:Testing performed by : [facility], 1 [facility], [address] Blood 08/12/2023 2:21 PM CDT 08/12/2023 7:19 PM CDT us Coni Matta MD LAB BLOOD ORDERABLES Final Res ult ALBERTO DELUCA [address] [facility] Department [place] [address] * Hemoglobin A1c (08/12/2023 2:21 PM CDT) [facility] Hgb A1C 5.6 4.0 - 5.6 % Comment:Testing performed by : [facility], [address] [place] [address]., [address] Estimated Average Glucose 114 mg/dL ALBERTO DELUCA Comment: The ADA recommends reporting an estimated Average Glucose (eAG) with all Hemoglobin A1c results using the equation derived from a study of 507 normal and diabetic adults. ??Minority populations were underrepresented and children were not included. ?? (Diabetes Care 31:5600-6707, 2008). ??The eAG is not equivalent to a fasting glucose. Testing performed by: [address] [address] Blood 08/12/2023 2:21 PM CDT 08/12/2023 4:21 PM CDT us Coni Matta MD LAB BLOOD ORDERABLES Final Res ult ALBERTO [address] [facility] Department [place] [address] * Drugs of Abuse Screen, Urine with Reflex Confirmation (08/12/2023 2:21 PM CDT) Pathologist [facility] Amphetamine, ur Not Detected CutOff 500ng/mL Comment: Interpretive Data - Amphetamines: ??Samples containing greater than 500 ng/mL d-methamphetamine ??or other cross-reacting amphetamine compounds are reported as positive. ??Amphetamine immunoassays are subject to significant false positive rates due to cross-reactivity of non-amphetamine drugs. Confirmatory testing required for definitive results. Current Interpretive Data was last reviewed 2022. Testing performed by: [address] [address] Barbiturates, ur Not Detected CutOff 200ng/mL ALBERTO Comment: Interpretive Data - Barbiturates: ??Samples containing greater than 200 ng/mL secobarbital or other cross-reacting barbiturate compounds are reported as positive. ??False positive and false negative results are possible. Confirmatory testing required for definitive results. Current Interpretive Data was last reviewed 2022. Testing performed by: [address] [address] Benzodiazepines, ur Not Detected CutOff 100ng/mL ALBERTO Comment: Interpretive Data - Benzodiazepines: ??Samples containing greater than 100 ng/mL nordiazepam or other cross-reacting compounds are reported as positive. False positive and false negative results are possible. Confirmatory testing required for definitive results. Current Interpretive Data was last reviewed 2022. Testing performed by: [address] [address] Cannabinoids, ur Not Detected CutOff 50 ng/mL [facility] Comment: Interpretive Data - Cannabinoids: ??Samples containing greater than 50 ng/mL delta-9 THC -COOH or other cross-reacting compounds are reported as positive. ??False positive and false negative results are possible. ??Confirmatory testing required for definitive results. Current Interpretive Data was last reviewed 2022. Testing performed by: [facility], [address] [place] [address]., [address] Cocaine, ur Not Detected CutOff 150ng/mL [facility] Comment: Interpretive Data - Cocaine: ??Samples containing greater than 150 ng/mL benzoylecgonine or other cross-reacting compounds are reported as positive. False positive and false negative results are possible. Confirmatory testing required for definitive results. Current Interpretive Data was last reviewed 2022. Testing performed by: [address] [address] Fentanyl, Ur Not Detected Cutoff 1 ng/mL [facility] Comment: Interpretive Data - Fentanyl: ??Samples containing greater than 1 ng/mL fentanyl or other cross-reacting fentanyl compounds are reported as positive. ??False positive and false negative results are possible. Confirmatory testing required for definitive results. Current Interpretive Data was last reviewed 2022. Testing performed by: [address] [address] Methadone, ur Not Detected CutOff 300ng/mL [facility] Comment: Interpretive Data - Methadone: ??Samples containing greater than 300 ng/mL d,l-methadone or other cross-reacting compounds are reported as positive. ??False positive and false negative results are possible. Confirmatory testing required for definitive results. Current Interpretive Data was last reviewed 2022. Testing performed by: [address] [address] Opiates, ur Not Detected CutOff 300ng/mL [facility] Comment: Interpretive Data - Opiates: ??Samples containing greater than 300 ng/mL morphine or other cross-reacting compounds are reported as positive. ??False positive and false negative results are possible. Confirmatory testing required for definitive results. Current Interpretive Data was last reviewed 2022. Testing performed by: [address] [address] Oxycodone, ur Not Detected CutOff 100ng/mL ALBERTO Comment: Interpretive Data - Oxycodone: ??Samples containing greater than 100 ng/mL oxycodone or other cross-reacting compounds are reported as ??positive. ??False positive and false negative results are possible. Confirmatory testing required for definitive results. Current Interpretive Data was last reviewed 2022. Testing performed by: [address] [address] Phencyclidine, ur Not Detected CutOff 25 ng/mL ALBERTO Comment: Interpretive Data - Phencyclidine: ??Samples containing greater than 25 ng/mL phencyclidine or other cross-reacting compounds are reported as positive. ??False positive and false negative results are possible. Confirmatory testing required for definitive results. Current Interpretive Data was last reviewed 2022. Testing performed by: [address] [address] Urine Creatinine 26 mg/dL ALBERTO Comment: Interpretive Data Urine Creatinine: < 10 mg/dL is extremely dilute = or > 10 but < 20 mg/dL is dilute = or > 20 mg/dL is normal Current Interpretive Data was last revised on 2017. Testing performed by: [address] [address] Urine 08/12/2023 2:21 PM CDT 08/12/2023 4:22 [...] LAB URINE ORDERABLES Final Res ult ALBERTO [address] [facility] Department [place] [address] * (ABNORMAL) CBC without differential (08/12/2023 2:21 PM CDT) [facility] WBC 7.6 3.8 - 9.9 K/cumm Comment:Testing performed by : [address] [address] Hgb 10.0(L) 11.9 - 15.5 g/dL ALBERTO Comment:Testing performed by : [address] [address] Hct 32.0(L) 35.6 - 45.5 % ALBERTO Comment:Testing performed by : [address] [address] Plt 234 150 - 400 K/cumm ALBERTO Comment:Testing performed by : [address] [address] MPV 12.3 9.1 - 12.3 fL ALBERTO Comment:Testing performed by : [address], [address] RBC 4.13 3.90 - 5.20 M/cumm ALBERTO Comment:Testing performed by : [address] [address] MCV 77.5(L) 81.3 - 96.4 fL ALBERTO Comment:Testing performed by : [address] [address] MCH 24.2(L) 27.1 - 33.3 pg ALBERTO Comment:Testing performed by : [address] [address] MCHC 31.3(L) 32.3 - 35.7 g/dL ALBERTO Comment:Testing performed by : [address], [address] RDW CV 14.4 11.1 - 14.9 % ALBERTO Comment:Testing performed by : [address] [address] RDW SD 40.1 35.7 - 48.1 fL ALBERTO Comment:Testing performed by : [address] [place] [address] NRBC abs 0.00 0.00 - 0.01 K/cumm ALBERTO DELUCA Comment:Testing performed by : [facility], [address] [place] [address]., [address] Blood 08/12/2023 2:21 PM CDT 08/12/2023 4:17 PM CDT us Coni Matta MD LAB BLOOD ORDERABLES Final Res ult ALBERTO DELUCA [address] [facility] Department [place] [address] * Panorama Test (08/12/2023 2:01 [...] TEXT 03/25,009 (0.1%) 08/23/2023 4:20 AM CDT [facility] TRISOMY 21 RISK SCORE TEXT <1/10,000 [...] sequencing of this test were performed by [facility] [id number] [place] [address] [address], [place] [address] (CLIA ID [id number]). The data analysis and reporting of this test were performed by [facility] [address] [place] [address]. [facility] [address], [place] [address] (CLIA ID [id number]). The performance characteristics of this test were developed by [facility].(CLIA ID [id number]). This test has not been cleared or approved by the U.S. Food and Drug Administration (FDA). These laboratories are regulated under CLIA as qualified to perform high-complexity testing. ??2020 [employer]. All Rights Reserved. Please refer to the attached PDF report Reviewed By: Omega Hilario M.D., Ph.D., [facility], Senior Fagot Heater [facility] Car Dryer: Kala Brown, Ph.D., [facility] IF THE ORDERING PROVIDER HAS QUESTIONS OR WISHES TO DISCUSS THE RESULTS, PLEASE CONTACT US AT [phone] #3. Ask for the NIPT genetic counselor financial foundations representative. Blood specimen (specimen) (Blood, Venous) 08/12/2023 2:01 PM CDT 08/23/2023 4:20 AM CDT us Coni Matta MD LAB GENETIC TESTING Final Resu lt [facility] [address] [place] [address], [facility] documented in this encounter Visit Diagnoses Diagnosis Encounter for supervision of other normal in first trimester- Primary Encounter for supervision of other normal in first trimester documented in this encounter Care Teams General Sales Manager Relationship Specialty Start Date End Date No, Physician PCP - General 08/06/22 documented as of this encounter
--- OUTSIDE RECORDS SUMMARY | 2024-03-15 18:49 | XMS_ITS | Encounter Summary ---
Author Organization [facility] Healthcare Address [address] [place] [address] Care Team Providers Care Diesel Maintenance Electrician Name Role Phone No, Physician Primary Care Provider [phone] Encounter Details Date Type Department Care Team (Late st Contact Info) Description 08/16/[address] [facility] Medical Group Obstetrical Gynecology [address] [phone] Coni Matta MD 1414 [facility] REMBERTO [address] [place] [address] Supervision of other normal , antepartum [...] Primary documented in this encounter Care Teams Diesel Maintenance Electrician Relationship Specialty Start Date End Date No, Physician PCP - General 08/06/22 documented as of this encounter
--- OUTSIDE RECORDS SUMMARY | 2024-03-15 18:49 | XMS_ITS | Encounter Summary ---
Author Organization [facility] Healthcare Address [address] [place] [address] Care Team Providers Care Plant Buyer Name Role Phone No, Physician Primary Care Provider [phone] Encounter Details Date Type Department Care Team (Late st Contact Info) Description 02/24/2023 12:25 PM ENTRY TABLE OPERATOR - 02/24/2023 2:04 PM [facility] Emergency [facility] OB Emergency Department [address], [place] [id number] Leyla Noble MD [address] [place] [address] perineal pain (Primary Dx); Syncope, [...] Comments Blood Pressure 101/67 02/24/2023 1:45 PM ENTRY TABLE OPERATOR Pulse 72 02/24/2023 1:56 PM ENTRY TABLE OPERATOR Temperature - - Respiratory Rate - - Oxygen Saturation 99% 02/24/2023 1:56 PM ENTRY TABLE OPERATOR Inhaled Oxygen Concentration - - Weight - - Height - - Body Mass Index - - documented in this encounter Discharge Instructions * Attachments The following attachments cannot be sent through Care Everywhere. * Vaginal Delivery (Discharge Care) ([facility]) documented in this encounter Medications at Time [...] or headaches 40 tablet 02/21/2023 4 vit 70-amth-cptxv-dh a 27mg iron- 800 mcg-250 mg capsule [...] 02/24/23 1351 Kian Reich MD 02/24/23 1352 Y TABLE OPERATOR Y TABLE OPERATOR Y TABLE OPERATOR documented in this encounter Plan of Treatment Not on file documented as of this encounter Procedures Procedure Name Priority Date/Time Associated Diagnosis Comments ECG 12-LEAD Routine 02/24/2023 1:22 PM ENTRY TABLE OPERATOR EGFR STAT 02/24/2023 12:45 PM ENTRY TABLE OPERATOR URINALYSIS AND REFLEX TO MICROSCOPIC AND CULTURE STAT 02/24/2023 12:45 PM ENTRY TABLE OPERATOR URINALYSIS, MICROSCOPIC ONLY STAT 02/24/2023 12:45 PM ENTRY TABLE OPERATOR CBC WITHOUT DIFFERENTIAL STAT 02/24/2023 12:45 PM ENTRY TABLE OPERATOR COMPREHENSIVE METABOLIC PANEL STAT 02/24/2023 12:45 PM ENTRY TABLE OPERATOR documented in this encounter Results * ECG 12 lead (02/24/2023 1:22 PM ENTRY TABLE OPERATOR) Ventricular Rate EKG/Min [address] [facility] Atrial Rate 73 BPM [facility] TX-Interval (MSEC) 134 ms [facility] QRS-Interval (MSEC) 76 ms [facility] QT-Interval (MSEC) 378 ms [facility] QTc 416 ms [facility] P [place] 53 degrees [facility] R [place] 59 degrees [facility] T [place] 37 degrees [facility] Diagnosis Normal sinus rhythm Possible Left atrial enlargement Nonspecific ST abnormality Borderline ECG When compared with ECG of 11-OCT-2018 03:08, No significant change was found Confirmed by LESLYE KUMAR M.D. ([id number]) on 02/24/2023 9:42:29 PM [facility] 02/24/2023 1:22 PM ENTRY TABLE OPERATOR 02/24/2023 9:42 PM ENTRY TABLE OPERATOR us Kian Reich MD ECG ORDERABLES Final Resul t [facility] * eGFR (02/24/2023 12:45 PM ENTRY TABLE OPERATOR) eGFR 134 mL/min/1. 73 m2 ALBERTO DELUCA [...] was last reviewed 2021. Testing performed by: [address] [address] Blood 02/24/2023 12:4 5 PM ENTRY TABLE OPERATOR 02/24/2023 1:00 PM ENTRY TABLE OPERATOR us Kian Reich MD LAB BLOOD ORDERABLES Final Result [facility] [address] [facility] Department of Laboratories [place], [place] [id number] * (ABNORMAL) Urinalysis, microscopic only (02/24/2023 12:45 PM ENTRY TABLE OPERATOR) WBC, ur 6-10(A) 0 - 5 /HPF ALBERTO Comment:Testing performed by : [address] [address] RBC, ur 3-5(A) 0 - 2 /HPF ALBERTO Comment:Testing performed by : [address] [address] Epithelial cells, squamous, ur 21-50(A) 0 - 5 /HPF ALBERTO Comment:Testing performed by : [address] [address] Mucous, ur Present(A) ALBERTO Comment:Testing performed by : [address] [address] Culture Reflex Comment Reflex conditions for urine culture (WBC >10) not met. ALBERTO Comment:Testing performed by : [address] [place]., [address] Urine 02/24/2023 12:4 5 PM ENTRY TABLE OPERATOR 02/24/2023 12:48 PM ENTRY TABLE OPERATOR us Kian Reich MD LAB URINE ORDERABLES Final Result [facility] [address] [facility] Department [place] [address] * (ABNORMAL) Urinalysis reflex to microscopic and culture Urine (02/24/2023 12:45 PM ENTRY TABLE OPERATOR) Color, ur Yellow Yellow ALBERTO Comment:Testing performed by : [address] [address] Clarity, ur Cloudy(A) Clear ALBERTO Comment:Testing performed by : [address] [address] Specific gravity, ur 1.019 1.003 - 1.030 ALBERTO Comment:Testing performed by : [address] [address] pH, urine 6.0 ALBERTO Comment: Interpretive Data ? Urine pH is affected by diet, medications, systemic acid-base disturbances, and renal tubular function. ??pH may affect urinary stone formation. ??For example, urine pH below 6.0 may help reduce the tendency for calcium phosphate stones and pH greater than 6.0 may reduce the tendency for uric acid stone formation. Source: [facility] [employer] Current Interpretive Data was last revised on 2017 Testing performed by: [address] [address] Protein, ur ql Negative Negative ALBERTO Comment:Testing performed by : [address] [address] Glucose, ur ql Negative Negative ALBERTO Comment:Testing performed by : [address] [address] Ketones, ur Negative Negative ALBERTO Comment:Testing performed by : [address] [address] Bilirubin, ur Negative Negative ALBERTO Comment:Testing performed by : [address] [address] Blood, ur 2+(A) Negative ALBERTO DELUCA Comment:Testing performed by : [address], [place]., [address] Urobilinogen, ur <2.0 <2.0 mg/dL ALBERTO DELUCA Comment:Testing performed by : [address], [place]., [address] Nitrite, ur Negative Negative ALBERTO DELUCA Comment:Testing performed by : [address], [place]., [address] Leukocyte esterase, ur 1+(A) Negative ALBERTO DELUCA Comment:Testing performed by : [address], [place]., [address] UA reflex comment Reflex to microscopic UA will be performed. ALBERTO DELUCA Comment:Testing performed by : [address], [place]., [address] Urine 02/24/2023 12:4 5 PM ENTRY TABLE OPERATOR 02/24/2023 12:48 PM ENTRY TABLE OPERATOR us Kian Reich MD LAB MICROBIOLOGY - GENERAL ORDERABLES Final Result [facility] [address] [facility] Department [place] [address] * (ABNORMAL) Comprehensive metabolic panel (02/24/2023 12:45 PM ENTRY TABLE OPERATOR) Sodium 141 135 - 145 mmol/L ALBERTO DELUCA Comment:Testing performed by : [address] [address] Potassium, pl 4.4 3.3 - 4.9 mmol/L ALBERTO DELUCA Comment:Testing performed by : [address] [address] Chloride 103 97 - 110 mmol/L ALBERTO DELUCA Comment:Testing performed by : [address] [address] CO2 27 22 - 32 mmol/L ALBERTO DELUCA Comment:Testing performed by : [address] [address] Anion gap 11 2 - 15 mmol/L ALBERTO Comment:Testing performed by : [address] [address] BUN 10 6 - 25 mg/dL ALBERTO Comment:Testing performed by : [address] [address] Creatinine 0.50(L) 0.60 - 1.10 mg/dL ALBERTO Comment:Testing performed by : [address] [address] Glucose 96 70 - 199 mg/dL ALBERTO [...] was last revised 2022. Testing performed by: [address] [address] Calcium 9.7 8.5 - 10.3 mg/dL ALBERTO Comment:Testing performed by : [address] [address] Bilirubin, total 0.2 0.1 - 1.2 mg/dL ALBERTO Comment:Testing performed by : [address] [address] Protein, pl 7.5 6.5 - 8.5 g/dL ALBERTO Comment:Testing performed by : [address] [address] Albumin 4.1 3.5 - 5.0 g/dL ALBERTO Comment:Testing performed by : [address] [address] Alk phos 124 40 - 130 Units/L ALBERTO Comment:Testing performed by : [address] [address] ALT 24 7 - 45 Units/L ALBERTO Comment:Testing performed by : [address] [address] AST 13 10 - 45 Units/L ALBERTO DELUCA Comment:Testing performed by : [address] [address] Blood 02/24/2023 12:4 5 PM ENTRY TABLE OPERATOR 02/24/2023 1:00 PM ENTRY TABLE OPERATOR Kian Reich MD LAB BLOOD ORDERABLES Final Result [facility] [address] [facility] Department [place] [address] * (ABNORMAL) CBC without differential (02/24/2023 12:45 PM ENTRY TABLE OPERATOR) [facility] WBC 9.7 3.8 - 9.9 K/cumm ALBERTO DELUCA Comment:Testing performed by : [address] [address] Hgb 11.2(L) 11.9 - 15.5 g/dL ALBERTO DELUCA Comment: Interpretive Data A reference range for this assay has not been established for patients with an unknown legal sex. Please refer to the laboratory test catalog for established sex-specific reference intervals. Current interpretive data was last revised on 2023. Testing performed by: [address] [address] Hct 38.5 35.6 - 45.5 % ALBERTO DELUCA Comment: Interpretive Data A reference range for this assay has not been established for patients with an unknown legal sex. Please refer to the laboratory test catalog for established sex-specific reference intervals. Current interpretive data was last revised on 2023. Testing performed by: [address] [address] Plt 357 150 - 400 K/cumm ALBERTO DELUCA Comment:Testing performed by : [address] [address] MPV 9.6 9.1 - 12.3 fL ALBERTO DELUCA Comment:Testing performed by : [address] [address] RBC 5.07 3.90 - 5.20 M/cumm ALBERTO DELUCA Comment: Interpretive Data A reference range for this assay has not been established for patients with an unknown legal sex. Please refer to the laboratory test catalog for established sex-specific reference intervals. Current interpretive data was last revised on 2023. Testing performed by: [address] [address] MCV 75.9(L) 81.3 - 96.4 fL ALBERTO Comment:Testing performed by : [address] [address] MCH 22.1(L) 27.1 - 33.3 pg ALBERTO Comment:Testing performed by : [address] [address] MCHC 29.1(L) 32.3 - 35.7 g/dL ALBERTO Comment:Testing performed by : [address] [address] RDW CV 16.8(H) 11.1 - 14.9 % ALBERTO Comment:Testing performed by : [address] [address] RDW SD 44.5 35.7 - 48.1 fL ALBERTO Comment:Testing performed by : [address] [address] NRBC abs 0.00 0.00 - 0.01 K/cumm ALBERTO Comment:Testing performed by : [address] [address] Blood 02/24/2023 12:4 5 PM ENTRY TABLE OPERATOR 02/24/2023 1:00 PM ENTRY TABLE OPERATOR us Kian Reich MD LAB BLOOD ORDERABLES Final Result ALBERTO DELUCA [address] [facility] Department [place] [address] documented in this encounter Visit Diagnoses Diagnosis [...] Recently Administered Medications Times are shown in ENTRY TABLE OPERATOR. PRN Medication Order 02/22/2023 02/23/2023 02/24/2023 benzocaine-menthoL [...] 02/24/2023 documented in this encounter Care Teams Plant Buyer Relationship Specialty Start Date End Date No, Physician PCP - General 08/06/22 documented as of this encounter
--- OUTSIDE RECORDS SUMMARY | 2024-03-15 18:49 | XMS_ITS | Encounter Summary ---
Author Organization [facility] Healthcare Address [address] [place] [address] Care Team Providers Care Hoop Cutter Name Role Phone No, Physician Primary Care Provider [phone] Encounter Details Date Type Department Care Team (Late st Contact Info) Description 09/06/2023 Telephone [facility] Healthcare Occupatiuonal Health [address] [place] [address] Room 3420 (Third Floor) [place] [address] Paloma Rao RN Social History Tobacco Use Types Packs/Day Years Used Date Smoking Tobacco: Never Alcohol Use Standard Drinks/Week Comments Never 0 (1 standard drink = 0.6 oz pur e alcohol) [place] Depression Scale Answer Date Recorded [place] Depression Scale Total 20 08/29/2023 The thought [...] 09/06/2023 12:17 PM Employee COVID-19 Screening Email: [email or web address] Employee/Student ID# [id number] Paint Crew Supervisor/[place]arrow Worker name and email address: [email or web address] Are you an employee or student? Employee Employer: [facility] Are you 100% ALYCE? No Employee Facility: [facility] Are you okay receiving positive results and further instructions via email? 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 Are you considered to be [...] and test for symptoms Testing Site Location: [facility] A0 (stay home and test) for symptomatic employees (HCW and Non-HCW) Thank you for calling the Occupational Health Call Center. This email contains the same informationand recommendations discussed during your call. You should also forward this information to your shift production supervisor as confirmation. Given your symptoms, you [...] you must leave work now. Notify your shift production supervisor that you have been directed to do so by the Occupational Health Call Center. Please go to the employee testing site as directed for your test. They should be expecting you; if there is any confusion, please call us at [phone]. Since you are reporting symptoms, wear a hospital provided mask when reporting for your test. While you are awaiting testing and results, you must remain off work. You should isolate yourself at home, avoid contact with any household members as much as possible, and stay in your home without leaving except for medical care. You should let your shift production supervisor know that you will not be coming to work. Although we will email your shift production supervisor to confirm this, it is still your responsibility to notify your shift production supervisor as you wouldfor any other work absence. If you have the option to slag production worker and you feel well enough, it must be approved by your shift production supervisor We will notify you of your test results, which are usually available within 24- 48 hours. Your results will also post to your [facility] My Chart account ([email or web address]). Once yourresults are [...] PCR Nasopharyngeal (09/06/2023 2:21 PM CDT) Pathologist [facility] COVID-19 RNA Negative Negative [facility] Influenza A RNA Negative Negative [facility] Influenza B RNA Negative Negative [facility] RSV RNA Negative Negative [facility] Comment: Interpretive data: Testing performed by [facility] ([phone]). This test is performed using the [employer] Xpert Xpress CoV-2/Flu/RSV plus assay. This is a multiplex, real-time reverse transcriptase PCR assay intended for the qualitative detection of nucleic acid from SARS-CoV-2, influenza A, influenza B, and respiratory syncytial virus. This assay has been cleared by the [place] Food and Drug administration. The performance characteristics have been verified by the [facility]. ??Results must be considered in the clinical context, and a negative result does not rule out infection. Interpretive Data last revised 2023 Nasopharyngeal 09/06/2023 2: 21 PM CDT 09/06/2023 5:50 PM CDT Narrative ALBERTO [facility] - 09/06/2023 6:37 PM CDT Bill to [facility] [employer] Patient is employed by/enrolled at:->[facility] [employer] Is the patient experiencing any symptoms consistent with COVID (eg. Fever, cough, shortness of breath)?->Yes Reason for testing?->Symptomatic Is the Patient experiencing symptoms consistent with COVID?->Yes Elier Akers MD LAB MICROBIOLOGY - GENERAL OR DERABLES Final Result Performing Organization Address City/State/[facility] Co de Phone Number [facility] [place] [address] [facility] documented in this encounter Visit Diagnoses Diagnosis Fever, unspecified fever cause- Primary Mild headache Sorethroat Acute pharyngitis Fever, unspecified fever cause Mild headache Sorethroat Acute pharyngitis documented in this encounter Additional Health Concerns Infection Onset Date Last Indicated Resolved Time COVID: Suspected 09/06/2023 09/06/2023 09/06/2023 6:38 PM CDT documented as of this encounter Care Teams Hoop Cutter Relationship Specialty Start Date End Date No, Physician PCP - General 08/06/22 documented as of this encounter
--- OUTSIDE RECORDS SUMMARY | 2024-03-15 18:50 | XMS_ITS | Encounter Summary ---
Author Organization [facility] Healthcare Address [address] [place] [address] Care Team Providers Care Tight Rope Walker Name Role Phone No, Physician Primary Care Provider [phone] Encounter Details Date Type Department Care Team (Late st Contact Info) Description 08/23/2022 Patient Self-Triage [facility] HealthCare[facility] [place] [address] Mychart, Generic Provider [address] [place], [place] [id number] Social History Tobacco Use Types Packs/Day Years [...] on filedocumented in this encounter Care Teams Tight Rope Walker Relationship Specialty Start Date End Date No, Physician PCP - General 08/06/22 documented as of this encounter
--- OUTSIDE RECORDS SUMMARY | 2024-03-15 18:50 | XMS_ITS | Encounter Summary ---
Author Organization [facility] Address [address] [place] [address] Care Team Providers Care Javascript Ui Developer Name Role Phone No, Physician Primary Care Provider [phone] Encounter Details Date Type Department Care Team (Late st Contact Info) Description 12/21/2022 E-Visit [facility] Virtual Care [address] [place] [address] Reyna Alex MD [address] [place] [address] [address] [place] [address] Your Medications Social History Tobacco [...] prescribed, if applicable, as well as any nclk-gbj-[id number] remedies. She was given instructions regarding follow up and timeframe if symptoms worsen or don???t improve. These instructions were included in the Picket message reply tothe patient. Patient Instructions were [...] Primary documented in this encounter Care Teams Javascript Ui Developer Relationship Specialty Start Date End Date No, Physician PCP - General 08/06/22 documented as of this encounter
--- OUTSIDE RECORDS SUMMARY | 2024-03-15 18:50 | XMS_ITS | Encounter Summary ---
Author Organization [facility] Address [address] [place] [address] Care Team Providers Care Senior Procurement Manager Name Role Phone No, Physician Primary Care Provider [phone] Reason for Visit * Reason Onset Date Comments Medical Question/Miscellaneous 08/13/2022 Encounter Details Date Type Department Care Team (Late st Contact Info) Description 08/13/2022 Telephone [facility] Primary Care [address] [place] [address] Rex Lockett, MEME [address] [place] [address] Medical Question/Miscellaneous Social History Tobacco [...] ba ck requested. Caller???s Call back #: [phone] Does message need to be routed? Yes-Action Needed documented in this encounter Plan of Treatment Not on file documented as of this encounter Visit Diagnoses Not on filedocumented in this encounter Care Teams Senior Procurement Manager Relationship Specialty Start Date End Date No, Physician PCP - General 08/06/22 documented as of this encounter
--- OUTSIDE RECORDS SUMMARY | 2024-03-15 18:50 | XMS_ITS | Encounter Summary ---
Author Organization [facility] Healthcare Address [address] [place] [address] Care Team Providers Care Construction Or Leak Gang Laborer Name Role Phone No, Physician Primary Care Provider [phone] Reason for Visit * Reason Comments Cough Encounter Details Date Type Department Care Team ([facility] Contact Info) Description 02/10/2023 12:53 AM WOMEN'S STUDIES PROFESSOR - 02/10/2023 4:23 AM [facility] Emergency [facility] Emergency Department [address] [place] [address] Keri Buckley DO [address] [place] [address] Upper respiratory tract infection, unspecified type [...] Comments Blood Pressure 122/86 02/10/2023 3:30 AM WOMEN'S STUDIES PROFESSOR Pulse 113 02/10/2023 3:30 AM WOMEN'S STUDIES PROFESSOR Temperature 36.8 ??C (98.2 ??F) 02/10/2023 12:[address] Respiratory Rate 16 02/10/2023 2:30 AM WOMEN'S STUDIES PROFESSOR Oxygen Saturation 97% 02/10/2023 3:30 AM WOMEN'S STUDIES PROFESSOR Inhaled Oxygen Concentration - - Weight 64.2 kg (141 lb 8.6 oz) 02/10/2023 12:04 AM WOMEN'S STUDIES PROFESSOR Height 160 cm (5' 3 ) 02/10/2023 12:04 AM WOMEN'S STUDIES PROFESSOR Body Mass Index 25.07 02/10/2023 12:04 AM WOMEN'S STUDIES PROFESSOR documented in this encounter Discharge Instructions * Discharge Instructions* Keri Buckley DO - 02/10/2023 4:14 AM WOMEN'S STUDIES PROFESSOR Please follow-up with your primary care physician [...] available during the time of the visit. N'S STUDIES PROFESSOR N'S STUDIES PROFESSOR * Attachments The following attachments cannot be sent through Care Everywhere. * Cold Symptoms (AfterCare(R) Instructions(ER/ED)) (Maltese) * Acute Cough (AfterCare(R) Instructions(ER/ED)) (Maltese) * Asthma (AfterCare(R) Instructions(ER/ED)) (Maltese) documented in this encounter Medications at Time [...] hours 12 tablet 2 01/15/2023 3 vit 48-negy-kttjz-dh a 27mg iron- 800 mcg-250 mg capsule [...] in this encounter Progress Notes * Jayleen Roes RN - 02/10/2023 1:18 AM CST OB RN in room with pt monitoring N'S STUDIES PROFESSOR documented in this encounter ED Notes * [...] tablet ondansetron (ZOFRAN) 4 mg tablet vit 78-ewkv-wzazo-dha 27mg iron- 800 mcg-250 mg capsule Review [...] Sol Lugo M.D. SN: SN Report ID: [id number] Reading Location: [id number] BP 122/86 Pulse 113 Temp 36.8 ??C [...] . This examination was transcribed using the [employer] voice recognition system without human abstractor. In an effort to expedite patient care, this report has not been adjusted for typographical, grammatical, and syntax by a trained certified medical transcriptionist. Clinical Impression: Upper respiratory tract infection, unspecified type Cough, unspecified type SOB (shortness of breath) Keri Buckley DO 02/21/23 2320 N'S STUDIES PROFESSOR * Jayleen Rose RN - 02/10/2023 3:12 AM CST Pt cleared by OB Provider Dr. Reich. Jayleen Rose RN 02/10/23 0312 N'S STUDIES PROFESSOR * Jayleen Rose RN - 02/10/2023 2:02 AM CST Per OB RN stated pt had reactive NST, and will be having the OB physician contact Dr. Buckley. After review. Jayleen Rose RN 02/10/23 0203 N'S STUDIES PROFESSOR * Jayleen Rose RN - 02/10/2023 1:26 AM CST Per OB RN, pt will remain on monitor for about an hour. Jayleen Rose RN 02/10/23 0126 N'S STUDIES PROFESSOR * Jayleen Rose RN - 02/10/2023 1:02 [...] monitor pt. Jayleen Rose RN 02/10/23 0104 N'S STUDIES PROFESSOR * Gosia Evangelista RN - 02/10/2023 12:02 AM CST Productive cough x 2 months with increased sinus congestion with headache x 3 day. Lungs clear. Pt is 38 weeks .Last tylenol x 2300 tonight N'S STUDIES PROFESSOR N'S STUDIES PROFESSOR documented in this encounter Plan of Treatment Not on file documented as of this encounter Procedures Procedure Name Priority Date/Time Associated Diagnosis Comments XR CHEST 1 VIEW ED 02/10/2023 1:53 AM WOMEN'S STUDIES PROFESSOR INFLUENZA A/B, RSV, AND COVID-19 PCR Routine 02/10/2023 12:08 AM WOMEN'S STUDIES PROFESSOR documented in this encounter Results * XR Chest 1 View (02/10/2023 1:53 AM WOMEN'S STUDIES PROFESSOR) Anatomical Region Laterality Modality Body, Chest N/A Computed Radiogr aphy 02/10/2023 2:04 AM WOMEN'S STUDIES PROFESSOR Narrative 02/10/2023 2:05 AM WOMEN'S STUDIES PROFESSOR EXAM DESCRIPTION: ?? XR CHEST 1 VIEW [...] AM T: ??02/10/2023 2:05 AM Report ID: [id number] Reading Location: ??[id number] Procedure Note Sol Lugo MD - 02/10/2023 [...] Sol Lugo M.D. SN: SN Report ID: [id number] Reading Location: [place] [address] Keri Ina DO IMG XR PROCEDURES Final Result * Influenza A/B, RSV, and COVID-19 PCR Nasopharyngeal (02/10/2023 12:08 AM WOMEN'S STUDIES PROFESSOR) COVID-19 RNA Negative [address] [facility] Comment:Testing performed by : [address] [address] Influenza A RNA Negative Negative [facility] Comment:Testing performed by : [address] [address] Influenza B RNA Negative Negative [facility] Comment:Testing performed by : [address] [address] RSV RNA Negative Negative [facility] Comment: Interpretive data: This test is performed using the [employer] Xpert Xpress CoV-2/Flu/RSV plus assay. This is [...] Data last revised 2021. Testing performed by: [address] [address] Nasopharyngeal 02/10/2023 12 :08 AM WOMEN'S STUDIES PROFESSOR 02/10/2023 12:14 AM WOMEN'S STUDIES PROFESSOR Narrative [facility] - 02/10/2023 12:57 AM WOMEN'S STUDIES PROFESSOR Is the Patient experiencing symptoms consistent with COVID?->Yes Date of Symptom Onset->02/03/23 Reason for testing?->Symptomatic Keri Buckley DO LAB MICROBIOLOGY - GENERAL ORDJuan DELGADO Final Result AL[facility]ERTO [address] [facility] Department [place] [address] documented in this encounter Visit Diagnoses Diagnosis [...] For 1 dose Given 02/10/2023 2:21 AM WOMEN'S STUDIES PROFESSOR 10 mg ipratropium-albuteroL (DUO-NEB) 0.5-2.5 mg/3 mL nebulizer solution 3 mL 3 mL, nebulization, Once, On 02/10/23 at 0152, For 1 dose, Indications: Chronic Obstructive Pulmonary Disease with BronchospasmsIndications:Chronic Obstructive Pulmonary Disease with Bronchospasms Given 02/10/2023 2:34 AM WOMEN'S STUDIES PROFESSOR 3 mL documented in this encounter Active and Recently Administered Medications Times are shown in WOMEN'S STUDIES PROFESSOR. Scheduled Medication Order 02/08/2023 02/09/2023 02/10/2023 cetirizine [...] 0234 (Given - Provid er: Bee Peres, COMPUTER TYPESETTER) documented in this encounter Additional Health Concerns Infection Onset Date Last Indicated Resolved Time COVID: Suspected 02/10/2023 02/10/2023 02/10/2023 12:58 AM WOMEN'S STUDIES PROFESSOR documented as of this encounter Care Teams Construction Or Leak Gang Laborer Relationship Specialty Start Date End Date No, Physician PCP - General 08/06/22 documented as of this encounter
--- OUTSIDE RECORDS SUMMARY | 2024-03-15 18:50 | XMS_ITS | Encounter Summary ---
Author Organization [facility] Healthcare Address [address] [place] [address] Care Team Providers Care Air Brake Rigger Name Role Phone No, Physician Primary Care Provider [phone] Reason for Visit * Reason Comments Rupture of Membranes Trickling fluid for the past 3 days. Also having pressure. Decreased Movement Encounter Details Date Type Department Care Team (Late st Contact Info) Description 01/25/2023 10:35 PM CDT - 01/26/2023 12:[address] [facility] ([place], [place]) OB Emergency Department [address] [place], [place] [id number] Zachery Sullivan MD [address] [place] [id number] 35 weeks gestation of (Primary Dx); No [...] Everywhere. * Kick Counts in (Discharge Care) (Paraguayan) * Early Labor Signs (Discharge Care) ([place]aguayan) documented in this encounter Medications at Time [...] hours 12 tablet 2 01/15/2023 3 vit 94-hjzn-cpqjz-dh a 27mg iron- 800 mcg-250 mg capsule [...] normal. Judgment: Judgment normal. FHTs: Category I [place]: q 7 min. SVE: /-3 post MDM [...] +, UA, UDS ordered FHTs: Category I [place]: q 7 min. SVE: /-3 post By: Autumn Chavis MD Time: 01/25 2346 Comment: ROM + negative UDS negative By: Autumn Chavis MD Time: 01/27 28 Comment: Still awaiting UA By: Autumn Chavis MD Time: 01/26 30 Comment: UA negative By: Autumn Chavis MD Time: 01/26 31 Comment: FHTs: Category I [place]: rare (not felt by pt.) SVE: /-3 [...] with Reflex Confirmation (01/25/2023 11:09 PM CDT) [facility] Amphetamine, ur Not Detected CutOff 500ng/mL [facility]ERT[facility] Comment: Interpretive Data - Amphetamines: ??Samples containing greater than 500 ng/mL d-methamphetamine ??or other cross-reacting amphetamine compounds are reported as positive. ??Amphetamine immunoassays are subject to significant false positive rates due to cross-reactivity of non-amphetamine drugs. Confirmatory testing required for definitive results. Current Interpretive Data was last reviewed 2022. Testing performed by: [address] [address] Barbiturates, ur Not Detected CutOff 200ng/mL [facility] Comment: Interpretive Data - Barbiturates: ??Samples containing greater than 200 ng/mL secobarbital or other cross-reacting barbiturate compounds are reported as positive. ??False positive and false negative results are possible. Confirmatory testing required for definitive results. Current Interpretive Data was last reviewed 2022. Testing performed by: [address] [address] Benzodiazepines, ur Not Detected CutOff 100ng/mL [facility] Comment: Interpretive Data - Benzodiazepines: ??Samples containing greater than 100 ng/mL nordiazepam or other cross-reacting compounds are reported as positive. False positive and false negative results are possible. Confirmatory testing required for definitive results. Current Interpretive Data was last reviewed 2022. Testing performed by: [address] [address] Cannabinoids, ur Not Detected CutOff 50 ng/mL [facility] Comment: Interpretive Data - Cannabinoids: ??Samples containing greater than 50 ng/mL delta-9 THC -COOH or other cross-reacting compounds are reported as positive. ??False positive and false negative results are possible. ??Confirmatory testing required for definitive results. Current Interpretive Data was last reviewed 2022. Testing performed by: [address] [address] Cocaine, ur Not Detected CutOff 150ng/mL [facility] Comment: Interpretive Data - Cocaine: ??Samples containing greater than 150 ng/mL benzoylecgonine or other cross-reacting compounds are reported as positive. False positive and false negative results are possible. Confirmatory testing required for definitive results. Current Interpretive Data was last reviewed 2022. Testing performed by: [address] [address] Fentanyl, Ur Not Detected Cutoff 1 ng/mL [facility] Comment: Interpretive Data - Fentanyl: ??Samples containing greater than 1 ng/mL fentanyl or other cross-reacting fentanyl compounds are reported as positive. ??False positive and false negative results are possible. Confirmatory testing required for definitive results. Current Interpretive Data was last reviewed 2022. Testing performed by: [address] [address] Methadone, ur Not Detected CutOff 300ng/mL [facility] Comment: Interpretive Data - Methadone: ??Samples containing greater than 300 ng/mL d,l-methadone or other cross-reacting compounds are reported as positive. ??False positive and false negative results are possible. Confirmatory testing required for definitive results. Current Interpretive Data was last reviewed 2022. Testing performed by: [address] [address] Opiates, ur Not Detected CutOff 300ng/mL [facility] Comment: Interpretive Data - Opiates: ??Samples containing greater than 300 ng/mL morphine or other cross-reacting compounds are reported as positive. ??False positive and false negative results are possible. Confirmatory testing required for definitive results. Current Interpretive Data was last reviewed 2022. Testing performed by: [address] [address] Oxycodone, ur Not Detected CutOff 100ng/mL [facility] Comment: Interpretive Data - Oxycodone: ??Samples containing greater than 100 ng/mL oxycodone or other cross-reacting compounds are reported as ??positive. ??False positive and false negative results are possible. Confirmatory testing required for definitive results. Current Interpretive Data was last reviewed 2022. Testing performed by: [address] [address] Phencyclidine, ur Not Detected CutOff 25 ng/mL [facility] Comment: Interpretive Data - Phencyclidine: ??Samples containing greater than 25 ng/mL phencyclidine or other cross-reacting compounds are reported as positive. ??False positive and false negative results are possible. Confirmatory testing required for definitive results. Current Interpretive Data was last reviewed 2022. Testing performed by: [address] [address] Urine Creatinine 16 mg/dL [facility] Comment: Interpretive Data Urine Creatinine: < 10 mg/dL is extremely dilute = or > 10 but < 20 mg/dL is dilute = or > 20 mg/dL is normal Current Interpretive Data was last revised on 2017. Testing performed by: [address] [address] Urine 01/25/2023 11:0 9 PM CDT 01/25/2023 [...] Phencyclidine. Autumn Chavis MD LAB URINE ORDERABLES [facility] al Result ALBERTO [address] [facility] Department [place] [address] * (ABNORMAL) Urinalysis reflex to microscopic and culture Urine, clean voided (01/25/2023 11:09 PM CDT) Color, ur Straw Yellow [facility] Comment:Testing performed by : [address] [address] Clarity, ur Clear Clear AL[facility]O Comment:Testing performed by : [address] [address] Specific gravity, ur 1.002(L) 1.003 - 1.030 [facility] Comment:Testing performed by : [facility], [address] [place] [address], [place]., [address] pH, urine 7.0 AL[facility]ERTO Comment: Interpretive Data ? Urine pH is affected by diet, medications, systemic acid-base disturbances, and renal tubular function. ??pH may affect urinary stone formation. ??For example, urine pH below 6.0 may help reduce the tendency for calcium phosphate stones and pH greater than 6.0 may reduce the tendency for uric acid stone formation. Source: [facility] [place] Current Interpretive Data was last revised on 2017 Testing performed by: [facility], [address] [place] [address], [place]., [address] Protein, ur ql Negative Negative [facility] Comment:Testing performed by : [address], [place]., [address] Glucose, ur ql Negative Negative [facility] Comment:Testing performed by : [address], [place]., [address] Ketones, ur Negative Negative [facility] Comment:Testing performed by : [address], [place]., [address] Bilirubin, ur Negative Negative [facility] Comment:Testing performed by : [address], [place]., [address] Blood, ur Negative Negative [facility] Comment:Testing performed by : [address], [place]., [address] Urobilinogen, ur <2.0 <2.0 mg/dL [facility] Comment:Testing performed by : [address], [place]., [address] Nitrite, ur Negative Negative [facility] Comment:Testing performed by : [address], [place]., [address] Leukocyte esterase, ur Negative Negative [facility] Comment:Testing performed by : [address], [place]., [address] UA reflex comment Reflex conditions for microscopic UA and culture not met. [facility] Comment:Testing performed by : [address], [place]., [address] Urine, clean voided 01/25/2023 11:09 PM CDT 01/26/2023 12:24 AM CDT us Autumn Chavis MD LAB MICROBIOLOGY - GENER AL ORDERABLES Final Result Performing Organization Address City/[facility]/ZIP Co de Phone Number ALBERTO [address] [facility] [place] [address] * ROM Plus (IGFBP-1/AFP) (01/25/2023 11:09 PM CDT) IFG Binding Protein-1 / AFP Negative AL[facility]ERTO Comment:Testing performed by : [facility], [address] [place] [address]., [address] Swab 01/25/2023 11:0 9 PM CDT 01/25/2023 11:16 PM CDT us Autumn Chavis MD LAB BODY FLUIDS AND STOO LS ORDERABLES Final Result Performing Organization Address [facility] Co de Phone Number ALBERTO [address] [place] [address] documented in this encounter Visit Diagnoses Diagnosis 35 weeks gestation of - Primary No leakage of amniotic fluid into vagina Pelvic pressure in , antepartum, third trimester documented in this encounter Orders Nursing Count Last Ordered Date First Orde red Date CONTRACTION - MONITORING 1 01/25/2023 MONITORING 1 01/25/2023 documented in this encounter Care Teams Air Brake Rigger Relationship Specialty Start Date End Date No, Physician PCP - General 08/06/22 documented as of this encounter
--- OUTSIDE RECORDS SUMMARY | 2024-03-15 18:50 | XMS_ITS | Encounter Summary ---
Author Organization [facility] Healthcare Address [address] [place] [address] Care Team Providers Care Vision Teacher Name Role Phone No, Physician Primary Care Provider [phone] Encounter Details Date Type Department Care Team (Late st Contact Info) Description 10/18/2022 Patient Self-Triage [facility] HealthCare/[place] Physicians [facility] [place] [address] Mychart, Generic Provider [address] [place], [place] [id number] Social History Tobacco Use Types Packs/Day Years [...] on filedocumented in this encounter Care Teams Vision Teacher Relationship Specialty Start Date End Date No, Physician PCP - General 08/06/22 documented as of this encounter
--- OUTSIDE RECORDS SUMMARY | 2024-03-15 18:50 | XMS_ITS | Encounter Summary ---
Author Organization [facility] Healthcare Address [address] [place] [address] Care Team Providers Care Ticket Writer Name Role Phone No, Physician Primary Care Provider [phone] Reason for Visit * Reason Comments Hypertension Encounter Details Date Type Department Care Team (Late st Contact Info) Description 01/31/2023 8:36 PM LACE SEWER - 01/31/2023 11:07 PM LACE SEWER [facility] OB Emergency Department [address] [place] [address] Coni Perry DO [address] [address] 36 weeks gestation of (Primary [...] Comments Blood Pressure 117/73 01/31/2023 11:00 PM LACE SEWER Pulse 90 01/31/2023 11:00 PM LACE SEWER Temperature 36.7 ??C (98 ??F) 01/31/2023 8:50 PM LACE SEWER Respiratory Rate 18 01/31/2023 8:50 PM LACE SEWER Oxygen Saturation 99% 01/31/2023 10:55 PM LACE SEWER Inhaled Oxygen Concentration - - Weight - - Height - - Body Mass Index - - documented in this encounter Discharge Instructions * Attachments The following attachments cannot be sent through Care Everywhere. * at 35 to 38 Weeks ([employer]ulk [employer] Specialist) (Hungarian) documented in this encounter Medications at Time [...] hours 12 tablet 2 01/15/2023 3 vit [id number] a 27mg iron- 800 mcg-250 mg capsule [...] assessed: Every 15 minutes Uterine Activity Mode: [place] Contraction Frequency (minutes): none noted Contraction Duration [...] normal. Judgment: Judgment normal. FHTs: Category I [place]: None SVE: Deferred MDM Medical Decision Making [...] Time: 01/31 2127 Comment: FHTs; Category I [place]: None SVE: Deferred By: Autumn Chavis MD Final diagnoses: 36 weeks gestation of Dizziness Anemia in , third trimester Autumn Chavis MD 01/31/23 2300 SEWER documented in this encounter Plan of Treatment Not on file documented as of this encounter Procedures Procedure Name Priority Date/Time Associated Diagnosis Comments DRUG SCREEN, URINE L AND D WITH REFLEX CONFIRMATION STAT 01/31/2023 9:12 PM LACE SEWER EGFR STAT 01/31/2023 9:12 PM LACE SEWER DIFFERENTIAL AUTO STAT 01/31/2023 9:1 2 PM LACE SEWER URINALYSIS AND REFLEX TO MICROSCOPIC AND CULTURE STAT 01/31/2023 9:12 PM LACE SEWER CBC WITH AUTO DIFFERENTIAL STAT 01/31/2023 9:12 PM LACE SEWER URINALYSIS, MICROSCOPIC ONLY STAT 01/31/2023 9:12 PM LACE SEWER BASIC METABOLIC PANEL STAT 01/31/2023 9:12 PM LACE SEWER documented in this encounter Results * eGFR (01/31/2023 9:12 PM LACE SEWER) eGFR 152 mL/min/1. 73 m2 ALBERTO Comment: [...] was last reviewed 2021. Testing performed by: [address] [address] Blood 01/31/2023 9:12 PM LACE SEWER 01/31/2023 9:21 PM LACE SEWER us Autumn Chavis MD LAB BLOOD ORDERABLES Fin al Result ALBERTO [address] [facility] Department [place] [address] * (ABNORMAL) Urinalysis, microscopic only (01/31/2023 9:12 PM LACE SEWER) WBC, ur 0-5 0 - 5 /HPF ALBERTO Comment:Testing performed by : [address] [address] RBC, ur 3-5(A) 0 - 2 /HPF ALBERTO Comment:Testing performed by : [address] [address] Epithelial cells, squamous, ur 21-50(A) 0 - 5 /HPF ALBERTO Comment:Testing performed by : [address] [address] Bacteria, ur 4+(A) ALBERTO Comment:Testing performed by : [address] [address] Culture Reflex Comment Reflex conditions for urine culture (WBC >10) not met. ALBERTO Comment:Testing performed by : [address] [address] Urine, clean voided 01/31/2023 9:12 PM LACE SEWER 01/31/2023 9:21 PM LACE SEWER us Autumn Chavis MD LAB URINE ORDERABLES Fin al Result [facility] [address] [facility] Department [place] [address] * (ABNORMAL) Differential, auto (01/31/2023 9:12 PM LACE SEWER) Neutrophil abs 8.8(H) 1.7 - 6.5 K/cumm ALBERTO Comment:Testing performed by : [address] [address] Imm gran abs 0.2(H) 0.0 - 0.1 K/cumm ALBERTO Comment:Testing performed by : [address] [address] Lymphocyte abs 1.7 0.8 - 3.3 K/cumm ABLERTO Comment:Testing performed by : [address] [address] Monocyte abs 1.0(H) 0.2 - 0.8 K/cumm ALBERTO Comment:Testing performed by : [address] [address] Eosinophil abs 0.1 0.0 - 0.5 K/cumm ALBERTO Comment:Testing performed by : [address] [address] Basophil abs 0.0 0.0 - 0.1 K/cumm [facility]:Testing performed by : [address] [address] Neutrophil pct 74.4 % ALBERTO Comment: Interpretive Data Percent cell count reference ranges are not reported, since discordance with absolute values may lead to misinterpretation of CBC data. Current Interpretive Data was last revised on 2017. Testing performed by: [address] [address] Imm gran pct 1.4 % ALBERTO Comment: Interpretive Data Percent cell count reference ranges are not reported, since discordance with absolute values may lead to misinterpretation of CBC data. Current Interpretive Data was last revised on 2017. Testing performed by: [address] [address] Lymphocyte pct 14.6 % ALBERTO Comment: Interpretive Data Percent cell count reference ranges are not reported, since discordance with absolute values may lead to misinterpretation of CBC data. Current Interpretive Data was last revised on 2017. Testing performed by: [address] [address] Monocyte pct 8.5 % ALBERTO Comment: Interpretive Data Percent cell count reference ranges are not reported, since discordance with absolute values may lead to misinterpretation of CBC data. Current Interpretive Data was last revised on 2017. Testing performed by: [address] [address] Eosinophil pct 0.8 % ALBERTO Comment: Interpretive Data Percent cell count reference ranges are not reported, since discordance with absolute values may lead to misinterpretation of CBC data. Current Interpretive Data was last revised on 2017. Testing performed by: [address] [address] Basophil pct 0.3 % ALBERTO Comment: Interpretive Data Percent cell count reference ranges are not reported, since discordance with absolute values may lead to misinterpretation of CBC data. Current Interpretive Data was last revised on 2017. Testing performed by: [address] [address] Blood 01/31/2023 9:12 PM LACE SEWER 01/31/2023 9:21 PM LACE SEWER us Autumn Chavis MD LAB BLOOD ORDERABLES Fin al Result [facility] [address] [facility] Department of Laboratories [place], [place] [id number] * (ABNORMAL) Basic metabolic panel (01/31/2023 9:12 PM LACE SEWER) Sodium 135 135 - 145 mmol/L ALBERTO DELUCA Comment:Testing performed by : [facility], [address] [place] [address], [place]., [address] Potassium, pl 3.6 3.3 - 4.9 mmol/L ALBERTO Comment:Testing performed by : [address], [place]., [address] Chloride 100 97 - 110 mmol/L ALBERTO Comment:Testing performed by : [address], [place]., [address] CO2 21(L) 22 - 32 mmol/L [facility] Comment:Testing performed by : [address], [place]., [address] Anion gap 14 2 - 15 mmol/L ALBERTO Comment:Testing performed by : [address], [place]., [address] BUN 4(L) 6 - 25 mg/dL [facility] Comment:Testing performed by : [address], [place]., [address] Creatinine 0.30(L) 0.60 - 1.10 mg/dL [facility] Comment:Testing performed by : [address] [address] Glucose 112 70 - 199 mg/dL [facility] Comment: Interpretive Data Fasting glucose >/= [...] was last revised 2022. Testing performed by: [address] [address] Calcium 9.1 8.5 - 10.3 mg/dL ALBERTO Comment:Testing performed by : [address], [place]., [address] Blood 01/31/2023 9:12 PM LACE SEWER 01/31/2023 9:21 PM LACE SEWER us Autumn Chavis MD LAB BLOOD ORDERABLES Fin al Result ALBERTO [address] [facility] Department [place] [address] * (ABNORMAL) CBC with auto differential (01/31/2023 9:12 PM LACE SEWER) WBC 11.8(H) 3.8 - 9.9 K/cumm ALBERTO DELUCA Comment:Testing performed by : [address] [address] Hgb 9.1(L) 11.9 - 15.5 g/dL ALBERTO DELUCA Comment: Interpretive Data A reference range for this assay has not been established for patients with an unknown legal sex. Please refer to the laboratory test catalog for established sex-specific reference intervals. Current interpretive data was last revised on 2023. Testing performed by: [address] [address] Hct 29.3(L) 35.6 - 45.5 % ALBERTO Comment: Interpretive Data A reference range for this assay has not been established for patients with an unknown legal sex. Please refer to the laboratory test catalog for established sex-specific reference intervals. Current interpretive data was last revised on 2023. Testing performed by: [address] [address] Plt 197 150 - 400 K/cumm ALBERTO Comment:Testing performed by : [address] [address] MPV 10.9 9.1 - 12.3 fL ALBERTO DELUCA Comment:Testing performed by : [address] [address] RBC 3.92 3.90 - 5.20 M/cumm ALBERTO DELUCA Comment: Interpretive Data A reference range for this assay has not been established for patients with an unknown legal sex. Please refer to the laboratory test catalog for established sex-specific reference intervals. Current interpretive data was last revised on 2023. Testing performed by: [address] [address] MCV 74.7(L) 81.3 - 96.4 fL ALBERTO DELUCA Comment:Testing performed by : [address] [address] MCH 23.2(L) 27.1 - 33.3 pg ALBERTO DELUCA Comment:Testing performed by : [address], [address] MCHC 31.1(L) 32.3 - 35.7 g/dL ALBERTO DELUCA Comment:Testing performed by : [address], [address] RDW CV 15.2(H) 11.1 - 14.9 % ALBERTO DELUCA Comment:Testing performed by : [address], [address] RDW SD 41.0 35.7 - 48.1 fL ALBERTO Comment:Testing performed by : [address], [address] NRBC abs 0.00 0.00 - 0.01 K/cumm ALBERTO Comment:Testing performed by : [address], [address] Blood 01/31/2023 9:12 PM LACE SEWER 01/31/2023 9:21 PM LACE SEWER us Autumn Chavis MD LAB BLOOD ORDERABLES Fin al Result ALBERTO [address] [facility] Department of Laboratories [place], [place] [id number] * Drug Screen, Urine L and D with Reflex Confirmation (01/31/2023 9:12 PM LACE SEWER) Amphetamine, ur Not Detected CutOff 500ng/mL ALBERTO DELUCA Comment: Interpretive Data - Amphetamines: ??Samples containing greater than 500 ng/mL d-methamphetamine ??or other cross-reacting amphetamine compounds are reported as positive. ??Amphetamine immunoassays are subject to significant false positive rates due to cross-reactivity of non-amphetamine drugs. Confirmatory testing required for definitive results. Current Interpretive Data was last reviewed 2022. Testing performed by: [address] [address] Barbiturates, ur Not Detected CutOff 200ng/mL [facility] Comment: Interpretive Data - Barbiturates: ??Samples containing greater than 200 ng/mL secobarbital or other cross-reacting barbiturate compounds are reported as positive. ??False positive and false negative results are possible. Confirmatory testing required for definitive results. Current Interpretive Data was last reviewed 2022. Testing performed by: [address] [address] Benzodiazepines, ur Not Detected CutOff 100ng/mL [facility] Comment: Interpretive Data - Benzodiazepines: ??Samples containing greater than 100 ng/mL nordiazepam or other cross-reacting compounds are reported as positive. False positive and false negative results are possible. Confirmatory testing required for definitive results. Current Interpretive Data was last reviewed 2022. Testing performed by: [address] [address] Cannabinoids, ur Not Detected CutOff 50 ng/mL [facility] Comment: Interpretive Data - Cannabinoids: ??Samples containing greater than 50 ng/mL delta-9 THC -COOH or other cross-reacting compounds are reported as positive. ??False positive and false negative results are possible. ??Confirmatory testing required for definitive results. Current Interpretive Data was last reviewed 2022. Testing performed by: [address] [address] Cocaine, ur Not Detected CutOff 150ng/mL [facility] Comment: Interpretive Data - Cocaine: ??Samples containing greater than 150 ng/mL benzoylecgonine or other cross-reacting compounds are reported as positive. False positive and false negative results are possible. Confirmatory testing required for definitive results. Current Interpretive Data was last reviewed 2022. Testing performed by: [address] [address] Fentanyl, Ur Not Detected Cutoff 1 ng/mL [facility] Comment: Interpretive Data - Fentanyl: ??Samples containing greater than 1 ng/mL fentanyl or other cross-reacting fentanyl compounds are reported as positive. ??False positive and false negative results are possible. Confirmatory testing required for definitive results. Current Interpretive Data was last reviewed 2022. Testing performed by: [address] [address] Methadone, ur Not Detected CutOff 300ng/mL ALBERTO Comment: Interpretive Data - Methadone: ??Samples containing greater than 300 ng/mL d,l-methadone or other cross-reacting compounds are reported as positive. ??False positive and false negative results are possible. Confirmatory testing required for definitive results. Current Interpretive Data was last reviewed 2022. Testing performed by: [address] [address] Opiates, ur Not Detected CutOff 300ng/mL ALBERTO Comment: Interpretive Data - Opiates: ??Samples containing greater than 300 ng/mL morphine or other cross-reacting compounds are reported as positive. ??False positive and false negative results are possible. Confirmatory testing required for definitive results. Current Interpretive Data was last reviewed 2022. Testing performed by: [address] [address] Oxycodone, ur Not Detected CutOff 100ng/mL ALBERTO Comment: Interpretive Data - Oxycodone: ??Samples containing greater than 100 ng/mL oxycodone or other cross-reacting compounds are reported as ??positive. ??False positive and false negative results are possible. Confirmatory testing required for definitive results. Current Interpretive Data was last reviewed 2022. Testing performed by: [address] [address] Phencyclidine, ur Not Detected CutOff 25 ng/mL ALBERTO Comment: Interpretive Data - Phencyclidine: ??Samples containing greater than 25 ng/mL phencyclidine or other cross-reacting compounds are reported as positive. ??False positive and false negative results are possible. Confirmatory testing required for definitive results. Current Interpretive Data was last reviewed 2022. Testing performed by: [address] [address] Urine Creatinine 29 mg/dL ALBERTO Comment: Interpretive Data Urine Creatinine: < 10 mg/dL is extremely dilute = or > 10 but < 20 mg/dL is dilute = or > 20 mg/dL is normal Current Interpretive Data was last revised on 2017. Testing performed by: [address] [address] Urine 01/31/2023 9:12 PM LACE SEWER 01/31/2023 9:21 PM LACE SEWER Narrative ALBERTO - 01/31/2023 9:47 PM LACE SEWER Drug of Abuse screening is performed by immunoassay for medical purposes only. ??This is not to be used for Pain Management purposes. ??If Detected, confirmation testing will be performed for Amphetamines, Barbiturates, Benzodiazepines, Cannabinoids, Cocaine, Fentanyl, Methadone, Opiates, Oxycodone or Phencyclidine. us Autumn Chavis MD LAB URINE ORDERABLES [facility] al Result ALBERTO [address] [facility] Department [place] [address] * (ABNORMAL) Urinalysis reflex to microscopic and culture Urine, clean voided (01/31/2023 9:12 PM LACE SEWER) Color, ur Yellow Yellow ALBERTO Comment:Testing performed by : [address] [address] Clarity, ur Clear Clear ALBERTO Comment:Testing performed by : [address] [address] Specific gravity, ur 1.005 1.003 - 1.030 ALBERTO Comment:Testing performed by : [address] [address] pH, urine 6.0 ALBERTO Comment: Interpretive Data ? Urine pH is affected by diet, medications, systemic acid-base disturbances, and renal tubular function. ??pH may affect urinary stone formation. ??For example, urine pH below 6.0 may help reduce the tendency for calcium phosphate stones and pH greater than 6.0 may reduce the tendency for uric acid stone formation. Source: [employer] Current Interpretive Data was last revised on 2017 Testing performed by: [address] [address] Protein, ur ql Negative Negative ALBERTO Comment:Testing performed by : [facility], [address] [place] [address], [place]., [address] Glucose, ur ql Negative Negative ALBERTO Comment:Testing performed by : [address], [place]., [address] Ketones, ur Negative Negative ALBERTO Comment:Testing performed by : [address], [place]., [address] Bilirubin, ur Negative Negative ALBERTO Comment:Testing performed by : [address], [place]., [address] Blood, ur 1+(A) Negative ALBERTO Comment:Testing performed by : [address], [place]., [address] Urobilinogen, ur <2.0 <2.0 mg/dL ALBERTO Comment:Testing performed by : [address], [place]., [address] Nitrite, ur Negative Negative ALBERTO Comment:Testing performed by : [address], [place]., [address] Leukocyte esterase, ur 1+(A) Negative ALBERTO Comment:Testing performed by : [address], [place]., [address] UA reflex comment Reflex to microscopic UA will be performed. ALBERTO Comment:Testing performed by : [address], [place]., [address] Urine, clean voided 01/31/2023 9:12 PM LACE SEWER 01/31/2023 9:21 PM LACE SEWER us Autumn Chavis MD LAB MICROBIOLOGY - GENER AL ORDERABLES Final Result ALBERTO [address] [facility] Department [place] [address] documented in this encounter Visit [...] 1 dose New Bag 01/31/2023 9:18 PM LACE SEWER 1,000 mL documented in this encounter Active and Recently Administered Medications Times are shown in LACE SEWER. PRN Medication Order 01/29/2023 01/30/2023 01/31/2023 Lactated [...] 01/31/2023 documented in this encounter Care Teams Ticket Writer Relationship Specialty Start Date End Date No, Physician PCP - General 08/06/22 documented as of this encounter
--- OUTSIDE RECORDS SUMMARY | 2024-03-15 18:50 | XMS_ITS | Encounter Summary ---
Author Organization [facility] Healthcare Address [address] [place] [address] Care Team Providers Care Pug Mill Operator Name Role Phone No, Physician Primary Care Provider [phone] Reason for Visit * Auth/Cert (Routine) Specialty Diagnoses / Procedures Referred By Contnohelia t Referred To Contact Diagnoses state Puerperal endometritis, condition or complication Endometritis following delivery 39 weeks gestation of Procedures NO Referral ID Status Reason Start Date Expiration Date Visits Re quested Visits Authorized [id number] 1 1 Encounter Details Date Type Department Care Team (Latest Contact Info) Description 02/19/2023 5:37 PM TRANSPORTATION AIDE - 02/21/2023 2:30 PM TRANSPORTATION AIDE Hospital Encounter [address] [address] Zachery Sullivan MD [address] [place] [address] state (Primary Dx); Puerperal endometritis, condition [...] Comments Blood Pressure 108/64 02/21/2023 2:28 PM TRANSPORTATION AIDE Pulse 80 02/21/2023 2:28 PM TRANSPORTATION AIDE Temperature 37.1 ??C (98.7 ??F) 02/21/2023 12:[address] Respiratory Rate 16 02/21/2023 8:30 AM TRANSPORTATION AIDE Oxygen Saturation 99% 02/21/2023 1:26 PM TRANSPORTATION AIDE Inhaled Oxygen Concentration - - Weight - [...] 5. Discharge to home Follow up with [facility] in 1-2 Delivery Providers Delivering clinician: weeks. [...] times daily Commonly known as: FLAGYL vit 74-maig-wughf-dha 27mg iron- 800 mcg-250 mg capsule 1 [...] Coni Perry DO at 02/21/2023 12:03 PM TRANSPORTATION AIDE SPORTATION AIDE SPORTATION AIDE documented in this encounter Discharge Instructions * Discharge Instructions* Vivi Mclean CNM - 02/21/2023 10:11 AM TRANSPORTATION AIDE Take antibiotics as prescribed. Recommend probiotics daily. Return with fever, heavy bleeding, or severe pain. SPORTATION AIDE * Attachments The following attachments cannot be sent through Care Everywhere. * Breast Care for the Non-breast Feeding Woman (AfterCare(R) Instructions(ER/ED)) (Maori) * Endometritis (AfterCare(R) Instructions(ER/ED)) (Maori) documented in this encounter Medications at Time [...] 7 days 14 tablet 02/21/2023 3 vit 67-nrzs-dsihj-dh a 27mg iron- 800 mcg-250 mg capsule [...] Roberts RN - 02/21/2023 2:30 PM CST [facility] Nursing Discharge Note Discharged to: Home Accompanied by: Vivi Roberts RN Discharged Per: Ambulatory Discharge indications reviewed. Questions encouraged. Verbalized understanding. SPORTATION AIDE * Disha Velásquez [facility] - 02/21/2023 1:27 AM CST Images from the original note were not included. Aminoglycoside Pharmacokinetics Consult and Monitoring Mariam Lea is a 22 y.o. female patient admitted to [id number]. Pharmacy service has been consulted for gentamicin [...] (132 lb) 01/15/23 61.2 kg (135 lb) [place] body weight: 52.4 kg (115 lb 8.3 [...] body weight. Drug/dosing strategy: gentamicin - traditional Turney Nomogram utilized? No Level/interval assessment: Goal therapeutic peak/trough levels per policy for traditional dosing. Latest trough <0.3 Level/interval assessment per Turney nomogram for extended interval dosing Plan: Will [...] participate in the care of this patient. SPORTATION AIDE * Suly Walters [facility] - 02/19/2023 8:48 PM CST Images from the original note were not included. Aminoglycoside Pharmacokinetics Consult and Monitoring Mariam Lea is a 22 y.o. female patient admitted to [id number]. Pharmacy service has been consulted for gentamicin [...] (132 lb) 01/15/23 61.2 kg (135 lb) [place] body weight: 52.4 kg (115 lb 8.3 [...] --> If no contraindications, will utilize the Turney Nomogram for follow up level/dosing interval assessment (see below). Assessment/Plan 1) Renal assessment --- Estimated Creatinine Clearance: 143.5 mL/min (A) (by Cockcroft-Gault based on SCr of 0.5 mg/dL (L)). Renal status: Renal function appears stable at this time. Will continue to monitor closely. 2) Dosing plan --- For initial dosing, will utilize adjusted body weight. Drug/dosing strategy: gentamicin - traditional Turney Nomogram utilized? No Level/interval assessment: Goal therapeutic peak/trough levels per policy for traditional dosing Level/interval assessment per Turney nomogram for extended interval dosing Plan: Will [...] participate in the care of this patient. SPORTATION AIDE documented in this encounter H&P Notes * Asia Dewey MD - 02/20/2023 11:07 AM CST OB HISTORY AND PHYSICAL CC: abdominal pain after giving HPI: Mariam is a 22 yr old who is PP day 7 from a normal vaginal delivery at [facility]. She had a normal post course and [...] questions answered regarding her plan of care SPORTATION AIDE documented in this encounter Nursing Notes * Vivi Roberts RN - 02/21/2023 1:11 PM CST All belongings with patient. SPORTATION AIDE documented in this encounter ED Notes * [...] or complication Autumn Chavis MD 02/23/23 0905 SPORTATION AIDE * Regine Connors RN - 02/19/2023 5:30 PM CST 6 days post , presents with perineal pain. JASON notified, room 36 Regine Connors RN 02/19/23 1731 SPORTATION AIDE documented in this encounter Miscellaneous Notes * [...] Shift: pain management rest and abx Summary: SPORTATION AIDE documented in this encounter Plan of Treatment Not on file documented as of this encounter Procedures Procedure Name Priority Date/Time Associated Diagnosis Comments GENTAMICIN LEVEL PEAK Timed 02/20/2023 9:50 PM TRANSPORTATION AIDE GENTAMICIN LEVEL TROUGH Timed 02/20/2023 8:20 PM TRANSPORTATION AIDE EGFR Timed 02/20/2023 12:35 PM TRANSPORTATION AIDE DIFFERENTIAL AUTO Timed 02/20/2023 12: 35 PM TRANSPORTATION AIDE CBC WITH AUTO DIFFERENTIAL Timed 02/20/2023 12:35 PM TRANSPORTATION AIDE BASIC METABOLIC PANEL Timed 02/20/2023 12:35 PM TRANSPORTATION AIDE LACTATE Timed 02/20/2023 4:46 AM TRANSPORTATION AIDE DIFFERENTIAL AUTO Routine 02/20/2023 4:4 6 AM TRANSPORTATION AIDE CBC WITH AUTO DIFFERENTIAL Routine 02/20/2023 4:46 AM TRANSPORTATION AIDE GENTAMICIN LEVEL PEAK Timed 02/20/2023 4:46 AM TRANSPORTATION AIDE N. GONORRHOEAE/C. TRACHOMATIS AMPLIFICATION STAT 02/19/2023 8:07 PM TRANSPORTATION AIDE VAGINITIS PANEL STAT 02/19/2023 8:07 PM TRANSPORTATION AIDE DRUG SCREEN, URINE L AND D WITH REFLEX CONFIRMATION STAT 02/19/2023 7:40 PM TRANSPORTATION AIDE URINALYSIS AND REFLEX TO MICROSCOPIC AND CULTURE STAT 02/19/2023 7:40 PM TRANSPORTATION AIDE BLOOD CULTURE STAT 02/19/2023 7:40 PM TRANSPORTATION AIDE URINALYSIS, MICROSCOPIC ONLY STAT 02/19/2023 7:40 PM TRANSPORTATION AIDE LACTATE STAT 02/19/2023 6:51 PM TRANSPORTATION AIDE EGFR STAT 02/19/2023 6:51 PM TRANSPORTATION AIDE DIFFERENTIAL AUTO STAT 02/19/2023 6:5 1 PM TRANSPORTATION AIDE CBC WITH AUTO DIFFERENTIAL STAT 02/19/2023 6:51 PM TRANSPORTATION AIDE BLOOD CULTURE STAT 02/19/2023 6:51 PM TRANSPORTATION AIDE COMPREHENSIVE METABOLIC PANEL STAT 02/19/2023 6:51 PM TRANSPORTATION AIDE documented in this encounter Results * Gentamicin level peak Please draw 30 mins after the dose is infused (02/20/2023 9:50 PM TRANSPORTATION AIDE) Gentamicin peak 5.3 3.0 - 10.0 mcg/mL [...] revised on 2020. Blood 02/20/2023 9:50 PM TRANSPORTATION AIDE 02/21/2023 12:31 AM TRANSPORTATION AIDE Narrative ALBERTO - 02/21/2023 1:07 AM TRANSPORTATION AIDE Please draw 30 mins after the dose is infused us Zachery Sullivan MD LAB BLOOD ORDERABLES Fin al Result ALBERTO DELUCA [address] [facility] [place] [address] * Gentamicin level trough Before 4th dose (02/20/2023 8:20 PM TRANSPORTATION AIDE) Gentamicin trough <0.3 <=2.0 mcg/mL ALBERTO DELUCA Comment: Interpretive Data Greater than or equal to 18yrs: Therapeutic Range: ?UTI/GPC synergy: 0-1 mcg/mL ?Systemic illness: 0-1 mcg/mL ?Sepsis: 0-2 mcg/mL GPC synergy refers to the synergistic effect of ??aminoglycosides with other antibiotics in treating infections caused by gram positive cocci (e.g. Enterococcus). Current Interpretive Data was last revised on 2020. Blood 02/20/2023 8:20 PM TRANSPORTATION AIDE 02/20/2023 10:22 PM TRANSPORTATION AIDE Narrative ALBERTO - 02/21/2023 12:24 AM TRANSPORTATION AIDE Before 4th dose us Autumn Chavis MD LAB BLOOD ORDERABLES Fin al Result ALBERTO [address] [facility] Department [place] [address] * eGFR (02/20/2023 12:35 PM TRANSPORTATION AIDE) eGFR 142 mL/min/1. 73 m2 ALBERTO Comment: [...] was last reviewed 2021. Testing performed by: [address] [address] Blood 02/20/2023 12:3 5 PM TRANSPORTATION AIDE 02/20/2023 12:52 PM TRANSPORTATION AIDE us Zachery Sullivan MD LAB BLOOD ORDERABLES Fin al Result [facility] [address] [facility] [place] [address] * Differential, auto (02/20/2023 12:35 PM TRANSPORTATION AIDE) Neutrophil abs 5.3 1.7 - 6.5 K/cumm ALBERTO Comment:Testing performed by : [address] [address] Imm gran abs 0.1 0.0 - 0.1 K/cumm ALBERTO Comment:Testing performed by : [address] [address] Lymphocyte abs 1.0 0.8 - 3.3 K/cumm ALBERTO Comment:Testing performed by : [address] [address] Monocyte abs 0.7 0.2 - 0.8 K/cumm ALBERTO Comment:Testing performed by : [address] [address] Eosinophil abs 0.1 0.0 - 0.5 K/cumm ALBERTO Comment:Testing performed by : [address] [address] Basophil abs 0.0 0.0 - 0.1 K/cumm ALBERTO Comment:Testing performed by : [address] [address] Neutrophil pct 73.6 % ALBERTO Comment: Interpretive Data Percent cell count reference ranges are not reported, since discordance with absolute values may lead to misinterpretation of CBC data. Current Interpretive Data was last revised on 2017. Testing performed by: [address] [address] Imm gran pct 0.8 % [facility] Comment: Interpretive Data Percent cell count reference ranges are not reported, since discordance with absolute values may lead to misinterpretation of CBC data. Current Interpretive Data was last revised on 2017. Testing performed by: [address] [address] Lymphocyte pct 14.1 % [facility] Comment: Interpretive Data Percent cell count reference ranges are not reported, since discordance with absolute values may lead to misinterpretation of CBC data. Current Interpretive Data was last revised on 2017. Testing performed by: [address] [address] Monocyte pct 9.4 % [facility] Comment: Interpretive Data Percent cell count reference ranges are not reported, since discordance with absolute values may lead to misinterpretation of CBC data. Current Interpretive Data was last revised on 2017. Testing performed by: [address] [address] Eosinophil pct 1.7 % [facility] Comment: Interpretive Data Percent cell count reference ranges are not reported, since discordance with absolute values may lead to misinterpretation of CBC data. Current Interpretive Data was last revised on 2017. Testing performed by: [address] [address] Basophil pct 0.4 % [facility] Comment: Interpretive Data Percent cell count reference ranges are not reported, since discordance with absolute values may lead to misinterpretation of CBC data. Current Interpretive Data was last revised on 2017. Testing performed by: [address] [address] Blood 02/20/2023 12:3 5 PM TRANSPORTATION AIDE 02/20/2023 12:52 PM TRANSPORTATION AIDE us Zachery Sullivan MD LAB BLOOD ORDERABLES Fin al Result ALBERTO [address] [facility] Department [place] [address] * (ABNORMAL) Basic metabolic panel (02/20/2023 12:35 PM TRANSPORTATION AIDE) Sodium 140 135 - 145 mmol/L ALBERTO Comment:Testing performed by : [address] [address] Potassium, pl 3.6 3.3 - 4.9 mmol/L ALBERTO Comment:Testing performed by : [address] [address] Chloride 106 97 - 110 mmol/L ALBERTO Comment:Testing performed by : [address] [address] CO2 24 22 - 32 mmol/L ALBERTO Comment:Testing performed by : [address] [address] Anion gap 10 2 - 15 mmol/L ALBERTO Comment:Testing performed by : [address] [address] BUN 7 6 - 25 mg/dL ALBERTO Comment:Testing performed by : [address] [address] Creatinine 0.40(L) 0.60 - 1.10 mg/dL ALBERTO Comment:Testing performed by : [address] [address] Glucose 97 70 - 199 mg/dL ALBERTO [...] was last revised 2022. Testing performed by: [address] [address] Calcium 9.0 8.5 - 10.3 mg/dL ALBERTO Comment:Testing performed by : [address] [address] Blood 02/20/2023 12:3 5 PM TRANSPORTATION AIDE 02/20/2023 12:52 PM TRANSPORTATION AIDE us Zachery Sullivan MD LAB BLOOD ORDERABLES Fin al Result [facility] [address] [facility] Department [place] [address] * (ABNORMAL) CBC with auto differential (02/20/2023 12:35 PM TRANSPORTATION AIDE) [facility] WBC 7.2 3.8 - 9.9 K/cumm ALBERTO DELUCA Comment:Testing performed by : [address] [address] Hgb 9.1(L) 11.9 - 15.5 g/dL ALBERTO DELUCA Comment: Interpretive Data A reference range for this assay has not been established for patients with an unknown legal sex. Please refer to the laboratory test catalog for established sex-specific reference intervals. Current interpretive data was last revised on 2023. Testing performed by: [address] [address] Hct 30.2(L) 35.6 - 45.5 % ALBERTO Comment: Interpretive Data A reference range for this assay has not been established for patients with an unknown legal sex. Please refer to the laboratory test catalog for established sex-specific reference intervals. Current interpretive data was last revised on 2023. Testing performed by: [address] [address] Plt 305 150 - 400 K/cumm ALBERTO Comment:Testing performed by : [address] [address] MPV 10.3 9.1 - 12.3 fL ALBERTO DELUCA Comment:Testing performed by : [address] [address] RBC 3.96 3.90 - 5.20 M/cumm ALBERTO DELUCA Comment: Interpretive Data A reference range for this assay has not been established for patients with an unknown legal sex. Please refer to the laboratory test catalog for established sex-specific reference intervals. Current interpretive data was last revised on 2023. Testing performed by: [facility], [address] [place] [address]., [address] MCV 76.3(L) 81.3 - 96.4 fL ALBERTO Comment:Testing performed by : [address] [address] MCH 23.0(L) 27.1 - 33.3 pg ALBERTO Comment:Testing performed by : [address] [address] MCHC 30.1(L) 32.3 - 35.7 g/dL ALBERTO Comment:Testing performed by : [address] [address] RDW CV 16.4(H) 11.1 - 14.9 % ALBERTO Comment:Testing performed by : [address] [address] RDW SD 44.5 35.7 - 48.1 fL ALBERTO Comment:Testing performed by : [address] [address] NRBC abs 0.00 0.00 - 0.01 K/cumm ALBERTO Comment:Testing performed by : [address] [address] Blood 02/20/2023 12:3 5 PM TRANSPORTATION AIDE 02/20/2023 12:52 PM TRANSPORTATION AIDE us Zachery Sullivan MD LAB BLOOD ORDERABLES Fin al Result ALBERTO [address] [facility] Department of Laboratories [place], [place] [id number] * (ABNORMAL) Differential, auto (02/20/2023 4:46 AM TRANSPORTATION AIDE) [facility] Neutrophil abs 10.9(H) 1.7 - 6.5 K/cumm ALBERTO Comment:Testing performed by : [address] [address] Imm gran abs 0.1 0.0 - 0.1 K/cumm ALBERTO Comment:Testing performed by : [address] [address] Lymphocyte abs 1.5 0.8 - 3.3 K/cumm ALBERTO Comment:Testing performed by : [address], [place]., [address] Monocyte abs 1.0(H) 0.2 - 0.8 K/cumm ALBERTO Comment:Testing performed by : [address], [place]., [address] Eosinophil abs 0.2 0.0 - 0.5 K/cumm ALBERTO Comment:Testing performed by : [address], [place]., [address] Basophil abs 0.0 0.0 - 0.1 K/cumm ALBERTO Comment:Testing performed by : [address] [address] Neutrophil pct 79.9 % ALBERTO Comment: Interpretive Data Percent cell count reference ranges are not reported, since discordance with absolute values may lead to misinterpretation of CBC data. Current Interpretive Data was last revised on 2017. Testing performed by: [address] [address] Imm gran pct 0.8 % [facility] Comment: Interpretive Data Percent cell count reference ranges are not reported, since discordance with absolute values may lead to misinterpretation of CBC data. Current Interpretive Data was last revised on 2017. Testing performed by: [address] [address] Lymphocyte pct 10.7 % [facility] Comment: Interpretive Data Percent cell count reference ranges are not reported, since discordance with absolute values may lead to misinterpretation of CBC data. Current Interpretive Data was last revised on 2017. Testing performed by: [address] [address] Monocyte pct 7.2 % [facility] Comment: Interpretive Data Percent cell count reference ranges are not reported, since discordance with absolute values may lead to misinterpretation of CBC data. Current Interpretive Data was last revised on 2017. Testing performed by: [address] [address] Eosinophil pct 1.1 % ALBERTO Comment: Interpretive Data Percent cell count reference ranges are not reported, since discordance with absolute values may lead to misinterpretation of CBC data. Current Interpretive Data was last revised on 2017. Testing performed by: [address] [address] Basophil pct 0.3 % ALBERTO Comment: Interpretive Data Percent cell count reference ranges are not reported, since discordance with absolute values may lead to misinterpretation of CBC data. Current Interpretive Data was last revised on 2017. Testing performed by: [address] [address] Blood 02/20/2023 4:46 AM TRANSPORTATION AIDE 02/20/2023 4:57 AM TRANSPORTATION AIDE Zachery Sullivan MD LAB BLOOD ORDERABLES Fin al Result Performing Organization Address [facility] Co de Phone Number [address] [place] [address] * Lactate (02/20/2023 4:46 AM TRANSPORTATION AIDE) Lactate 1.2 0.7 - 2.0 mmol/L ALBERTO Comment:Testing performed by : [address] [address] Blood 02/20/2023 4:46 AM TRANSPORTATION AIDE 02/20/2023 4:57 AM TRANSPORTATION AIDE Autumn Chavis MD LAB BLOOD ORDERABLES Fin al Result Performing Organization Address City/[facility] Co de Phone Number [address] [place] [address] * (ABNORMAL) CBC with auto differential (02/20/2023 4:46 AM TRANSPORTATION AIDE) WBC 13.6(H) 3.8 - 9.9 K/cumm ALBERTO Comment:Testing performed by : [address] [address] Hgb 8.8(L) 11.9 - 15.5 g/dL ALBERTO Comment: Interpretive Data A reference range for this assay has not been established for patients with an unknown legal sex. Please refer to the laboratory test catalog for established sex-specific reference intervals. Current interpretive data was last revised on 2023. Testing performed by: [address] [address] Hct 30.0(L) 35.6 - 45.5 % [facility] Comment: Interpretive Data A reference range for this assay has not been established for patients with an unknown legal sex. Please refer to the laboratory test catalog for established sex-specific reference intervals. Current interpretive data was last revised on 2023. Testing performed by: [address] [address] Plt 276 150 - 400 K/cumm [facility] Comment:Testing performed by : [address] [address] MPV 10.2 9.1 - 12.3 fL ALBERTO Comment:Testing performed by : [address] [address] RBC 3.94 3.90 - 5.20 M/cumm [facility] Comment: Interpretive Data A reference range for this assay has not been established for patients with an unknown legal sex. Please refer to the laboratory test catalog for established sex-specific reference intervals. Current interpretive data was last revised on 2023. Testing performed by: [address] [address] MCV 76.1(L) 81.3 - 96.4 fL [facility] Comment:Testing performed by : [address] [address] MCH 22.3(L) 27.1 - 33.3 pg [facility] Comment:Testing performed by : [address] [address] MCHC 29.3(L) 32.3 - 35.7 g/dL ALBERTO Comment:Testing performed by : [address] [address] RDW CV 16.3(H) 11.1 - 14.9 % ALBERTO Comment:Testing performed by : [address] [address] RDW SD 44.2 35.7 - 48.1 fL ALBERTO Comment:Testing performed by : [address] [address] NRBC abs 0.00 0.00 - 0.01 K/cumm ALBERTO Comment:Testing performed by : [address], [address] Blood 02/20/2023 4:46 AM TRANSPORTATION AIDE 02/20/2023 4:57 AM TRANSPORTATION AIDE Zachery Sullivan MD LAB BLOOD ORDERABLES Fin al Result Performing Organization Address [facility] de Phone Number [place] [id number] [facility] [place] [address] * (ABNORMAL) Gentamicin level peak After third dose (02/20/2023 4:46 AM TRANSPORTATION AIDE) [facility] Gentamicin peak 0.4(L) 3.0 - 10.0 mcg/mL [...] revised on 2020. Blood 02/20/2023 4:46 AM TRANSPORTATION AIDE 02/20/2023 6:42 AM TRANSPORTATION AIDE Narrative ALBERTO - 02/20/2023 8:37 AM TRANSPORTATION AIDE After third dose Autumn Chavis MD LAB BLOOD ORDERABLES Fin al Result Performing Organization Address [facility] Co de Phone Number [place] [phone] [facility] [place] [address] * N. gonorrhoeae/C. trachomatis Amplification Endocervical (02/19/2023 8:07 PM TRANSPORTATION AIDE) C. trachomatis Not Detected Not Detected ALBERTO Comment:Testing performed by : [address] [address] N. gonorrhoeae Not Detected Not Detected ALBERTO Comment: Interpretive Data This assay detects Chlamydia trachomatis and Neisseria gonorrhoeae by nucleic acid amplification testing (NAAT). This assay has been cleared by the [place] Food and Drug administration. The performance characteristics of this test have been verified by the [facility]. The performance characteristics of this test have not been evaluated in individuals less than 14 years of age. Current Interpretive Data last revised 2023. Testing performed by: [address] [address] Endocervical (None) 02/20/20 8:07 PM TRANSPORTATION AIDE 02/19/2023 8:10 PM TRANSPORTATION AIDE us Autumn Chavis MD LAB MICROBIOLOGY - [facility] AL ORDERABLES Final Result [facility] [address] [facility] [place] [address] * (ABNORMAL) Vaginitis panel Vaginal (02/19/2023 8:07 PM TRANSPORTATION AIDE) Pathologist [facility] Tammy DNA probe Not Detected Not Detected ALBERTO DELUCA Comment:Testing performed by : [address] [address] Gardnerella DNA probe Detected(A) Not Detected ALBERTO DELUCA Comment:Testing performed by : [address] [address] Trichomonas DNA probe Not Detected Not Detected ALBERTO Comment: Interpretive Data Testing performed by [facility] via Affirm VPIII Microbial Identification Test, a [...] last revised on 2020. Testing performed by: [address] [address] Vaginal 02/19/2023 8:07 PM TRANSPORTATION AIDE 02/19/2023 8:10 PM TRANSPORTATION AIDE Autumn Chavis MD LAB MICROBIOLOGY - GENER AL ORDERABLES Final Result Performing Organization Address [facility] Co de Phone Number [address] [place] [address] * (ABNORMAL) Urinalysis, microscopic only (02/19/2023 7:40 PM TRANSPORTATION AIDE) WBC, ur 6-10(A) 0 - 5 /HPF ALBERTO Comment:Testing performed by : [address] [address] RBC, ur 11-20(A) 0 - 2 /HPF ALBERTO Comment:Testing performed by : [address] [address] Epithelial cells, squamous, ur 11-20(A) 0 - 5 /HPF ALBERTO Comment:Testing performed by : [address] [address] Mucous, ur Present(A) ALBERTO Comment:Testing performed by : [address] [address] Culture Reflex Comment Reflex conditions for urine culture (WBC >10) not met. ALBERTO Comment:Testing performed by : [address] [address] Urine, clean voided 02/19/2023 7:40 PM TRANSPORTATION AIDE 02/19/2023 8:11 PM TRANSPORTATION AIDE Autumn Chavis MD LAB URINE ORDERABLES Fin al Result Performing Organization Address [facility] Co de Phone Number [facility] [address] [facility] [place] [address] * Blood culture Blood (02/19/2023 7:40 PM TRANSPORTATION AIDE) Report Final Report: No growth ALBERTO DELUCA Comment:Testing performed by : [facility], [address] [place] [address] Blood 02/19/2023 7:40 PM TRANSPORTATION AIDE 02/19/2023 11:10 PM TRANSPORTATION AIDE Narrative ALBERTO YOSI - 02/24/2023 7:00 AM TRANSPORTATION AIDE Collection->Peripheral 1. ?Blood cultures are incubated for [...] performance characteristics have been verified by the [facility]. 5. ?For questions about this culture, contact the Microbiology Laboratory at [phone]. Interpretive data was last revised on 2019. us Autumn Chavis MD LAB MICROBIOLOGY - [facility] AL ORDERABLES Final Result ALBERTO DELUCA [address] [facility] [place] [address] * Drug Screen, Urine L and D with Reflex Confirmation (02/19/2023 7:40 PM TRANSPORTATION AIDE) [facility] Amphetamine, ur Not Detected CutOff 500ng/mL [facility] Comment: Interpretive Data - Amphetamines: ??Samples containing greater than 500 ng/mL d-methamphetamine ??or other cross-reacting amphetamine compounds are reported as positive. ??Amphetamine immunoassays are subject to significant false positive rates due to cross-reactivity of non-amphetamine drugs. Confirmatory testing required for definitive results. Current Interpretive Data was last reviewed 2022. Testing performed by: [address] [address] Barbiturates, ur Not Detected CutOff 200ng/mL [facility] Comment: Interpretive Data - Barbiturates: ??Samples containing greater than 200 ng/mL secobarbital or other cross-reacting barbiturate compounds are reported as positive. ??False positive and false negative results are possible. Confirmatory testing required for definitive results. Current Interpretive Data was last reviewed 2022. Testing performed by: [address] [address] Benzodiazepines, ur Not Detected CutOff 100ng/mL [facility] Comment: Interpretive Data - Benzodiazepines: ??Samples containing greater than 100 ng/mL nordiazepam or other cross-reacting compounds are reported as positive. False positive and false negative results are possible. Confirmatory testing required for definitive results. Current Interpretive Data was last reviewed 2022. Testing performed by: [address] [address] Cannabinoids, ur Not Detected CutOff 50 ng/mL [facility] Comment: Interpretive Data - Cannabinoids: ??Samples containing greater than 50 ng/mL delta-9 THC -COOH or other cross-reacting compounds are reported as positive. ??False positive and false negative results are possible. ??Confirmatory testing required for definitive results. Current Interpretive Data was last reviewed 2022. Testing performed by: [address] [address] Cocaine, ur Not Detected CutOff 150ng/mL [facility] Comment: Interpretive Data - Cocaine: ??Samples containing greater than 150 ng/mL benzoylecgonine or other cross-reacting compounds are reported as positive. False positive and false negative results are possible. Confirmatory testing required for definitive results. Current Interpretive Data was last reviewed 2022. Testing performed by: [address] [address] Fentanyl, Ur Not Detected Cutoff 1 ng/mL [facility] Comment: Interpretive Data - Fentanyl: ??Samples containing greater than 1 ng/mL fentanyl or other cross-reacting fentanyl compounds are reported as positive. ??False positive and false negative results are possible. Confirmatory testing required for definitive results. Current Interpretive Data was last reviewed 2022. Testing performed by: [address] [address] Methadone, ur Not Detected CutOff 300ng/mL [facility] Comment: Interpretive Data - Methadone: ??Samples containing greater than 300 ng/mL d,l-methadone or other cross-reacting compounds are reported as positive. ??False positive and false negative results are possible. Confirmatory testing required for definitive results. Current Interpretive Data was last reviewed 2022. Testing performed by: [address] [address] Opiates, ur Not Detected CutOff 300ng/mL [facility] Comment: Interpretive Data - Opiates: ??Samples containing greater than 300 ng/mL morphine or other cross-reacting compounds are reported as positive. ??False positive and false negative results are possible. Confirmatory testing required for definitive results. Current Interpretive Data was last reviewed 2022. Testing performed by: [address] [address] Oxycodone, ur Not Detected CutOff 100ng/mL [facility] Comment: Interpretive Data - Oxycodone: ??Samples containing greater than 100 ng/mL oxycodone or other cross-reacting compounds are reported as ??positive. ??False positive and false negative results are possible. Confirmatory testing required for definitive results. Current Interpretive Data was last reviewed 2022. Testing performed by: [address] [address] Phencyclidine, ur Not Detected CutOff 25 ng/mL [facility] Comment: Interpretive Data - Phencyclidine: ??Samples containing greater than 25 ng/mL phencyclidine or other cross-reacting compounds are reported as positive. ??False positive and false negative results are possible. Confirmatory testing required for definitive results. Current Interpretive Data was last reviewed 2022. Testing performed by: [address] [address] Urine Creatinine 48 mg/dL ALBERTO Comment: Interpretive Data Urine Creatinine: < 10 mg/dL is extremely dilute = or > 10 but < 20 mg/dL is dilute = or > 20 mg/dL is normal Current Interpretive Data was last revised on 2017. Testing performed by: [address] [address] Urine 02/19/2023 7:40 PM TRANSPORTATION AIDE 02/19/2023 8:11 PM TRANSPORTATION AIDE Narrative ALBERTO - 02/19/2023 8:54 PM TRANSPORTATION AIDE Drug of Abuse screening is performed by immunoassay for medical purposes only. ??This is not to be used for Pain Management purposes. ??If Detected, confirmation testing will be performed for Amphetamines, Barbiturates, Benzodiazepines, Cannabinoids, Cocaine, Fentanyl, Methadone, Opiates, Oxycodone or Phencyclidine. us Autumn Chavis MD LAB URINE ORDERABLES Fin al Result ALBERTO [address] [facility] [place] [address] * (ABNORMAL) Urinalysis reflex to microscopic and culture Urine, clean voided (02/19/2023 7:40 PM TRANSPORTATION AIDE) Color, ur Yellow Yellow ALBERTO Comment:Testing performed by : [address] [address] Clarity, ur Clear Clear ALBERTO Comment:Testing performed by : [address] [address] Specific gravity, ur 1.012 1.003 - 1.030 ALBERTO Comment:Testing performed by : [address] [address] pH, urine 8.0 ALBERTO Comment: Interpretive Data ? Urine pH is affected by diet, medications, systemic acid-base disturbances, and renal tubular function. ??pH may affect urinary stone formation. ??For example, urine pH below 6.0 may help reduce the tendency for calcium phosphate stones and pH greater than 6.0 may reduce the tendency for uric acid stone formation. Source: [facility] Current Interpretive Data was last revised on 2017 Testing performed by: [facility], [address] [place] [address], [place]., [address] Protein, ur ql Negative Negative ALBERTO Comment:Testing performed by : [address], [place]., [address] Glucose, ur ql Negative Negative ALBERTO Comment:Testing performed by : [address], [place]., [address] Ketones, ur Negative Negative ALBERTO Comment:Testing performed by : [address], [place]., [address] Bilirubin, ur Negative Negative ALBERTO Comment:Testing performed by : [address], [place]., [address] Blood, ur 2+(A) Negative ALBERTO Comment:Testing performed by : [address], [place]., [address] Urobilinogen, ur <2.0 <2.0 mg/dL ALBERTO Comment:Testing performed by : [address], [place]., [address] Nitrite, ur Negative Negative ALBERTO Comment:Testing performed by : [address], [place]., [address] Leukocyte esterase, ur 1+(A) Negative ALBERTO Comment:Testing performed by : [address] [address] UA reflex comment Reflex to microscopic UA will be performed. ALBERTO Comment:Testing performed by : [address], [place]., [address] Urine, clean voided 02/19/2023 7:40 PM TRANSPORTATION AIDE 02/19/2023 8:11 PM TRANSPORTATION AIDE us Autumn Chavis MD LAB MICROBIOLOGY - GENER AL ORDERABLES Final Result ALBERTO [address] [facility] [place] [address] * eGFR (02/19/2023 6:51 PM TRANSPORTATION AIDE) [facility] eGFR 134 mL/min/1. 73 m2 ALBERTO Comment: [...] reviewed 2021. Testing performed by: [facility], [address] [place] [address]., [address] Blood 02/19/2023 6:51 PM TRANSPORTATION AIDE 02/19/2023 7:04 PM TRANSPORTATION AIDE us Autumn Chavis MD LAB BLOOD ORDERABLES Fin al Result ALBERTO [address] [facility] Department [place] [address] * (ABNORMAL) Differential, auto (02/19/2023 6:51 PM TRANSPORTATION AIDE) [facility] Neutrophil abs 14.9(H) 1.7 - 6.5 K/cumm [facility] Comment:Testing performed by : [address] [address] Imm gran abs 0.1 0.0 - 0.1 K/cumm [facility] Comment:Testing performed by : [address] [address] Lymphocyte abs 1.2 0.8 - 3.3 K/cumm [facility] Comment:Testing performed by : [address] [address] Monocyte abs 0.7 0.2 - 0.8 K/cumm [facility] Comment:Testing performed by : [address] [address] Eosinophil abs 0.1 0.0 - 0.5 K/cumm [facility] Comment:Testing performed by : [address] [address] Basophil abs 0.1 0.0 - 0.1 K/cumm [facility] Comment:Testing performed by : [address] [address] Neutrophil pct 87.1 % [facility] Comment: Interpretive Data Percent cell count reference ranges are not reported, since discordance with absolute values may lead to misinterpretation of CBC data. Current Interpretive Data was last revised on 2017. Testing performed by: [address] [address] Imm gran pct 0.8 % [facility] Comment: Interpretive Data Percent cell count reference ranges are not reported, since discordance with absolute values may lead to misinterpretation of CBC data. Current Interpretive Data was last revised on 2017. Testing performed by: [address] [address] Lymphocyte pct 6.9 % [facility] Comment: Interpretive Data Percent cell count reference ranges are not reported, since discordance with absolute values may lead to misinterpretation of CBC data. Current Interpretive Data was last revised on 2017. Testing performed by: [address] [address] Monocyte pct 4.3 % [facility] Comment: Interpretive Data Percent cell count reference ranges are not reported, since discordance with absolute values may lead to misinterpretation of CBC data. Current Interpretive Data was last revised on 2017. Testing performed by: [address] [address] Eosinophil pct 0.6 % ALBERTO DELUCA Comment: Interpretive Data Percent cell count reference ranges are not reported, since discordance with absolute values may lead to misinterpretation of CBC data. Current Interpretive Data was last revised on 2017. Testing performed by: [address] [address] Basophil pct 0.3 % ALBERTO DELUCA Comment: Interpretive Data Percent cell count reference ranges are not reported, since discordance with absolute values may lead to misinterpretation of CBC data. Current Interpretive Data was last revised on 2017. Testing performed by: [address] [address] Blood 02/19/2023 6:51 PM TRANSPORTATION AIDE 02/19/2023 7:04 PM TRANSPORTATION AIDE us Autumn Chavis MD LAB BLOOD ORDERABLES Fin al Result Performing Organization Address City/State/[facility] Co de Phone Number ALBERTO DELUCA [address] [facility] Department of Laboratories [place], [place] [id number] * Blood culture Blood (02/19/2023 6:51 PM TRANSPORTATION AIDE) Report Final Report: No growth ALBERTO DELUCA Comment:Testing performed by : [facility], [address] [facility] [address] Blood 02/19/2023 6:51 PM TRANSPORTATION AIDE 02/19/2023 9:17 PM TRANSPORTATION AIDE Narrative ALBERTO DELUCA - 02/25/2023 8:40 AM TRANSPORTATION AIDE Collection->Peripheral 1. ?Blood cultures are incubated for [...] organism identification may be performed using the [employer] Gram-Positive Blood Culture Assay. This assay detects microbial DNA in positive blood culture broth via hybridization of target DNA to capture oligonucleotides on a microarray. This assay has been cleared by the [place] Food and Drug Administration and its performance characteristics have been verified by the [facility]. 5. ?For questions about this culture, contact the Microbiology Laboratory at [phone]. Interpretive data was last revised on 2019. Autumn Chavis MD LAB MICROBIOLOGY - GENER AL ORDERABLES Final Result Performing Organization Address City/[facility] Co de Phone Number [facility] [address] [facility] [place] [address] * Lactate (02/19/2023 6:51 PM TRANSPORTATION AIDE) Pathologist [facility] Lactate 1.5 0.7 - 2.0 mmol/L ALBERTO Comment:Testing performed by : [facility], [address] [place] [address]., [address] Blood 02/19/2023 6:51 PM TRANSPORTATION AIDE 02/19/2023 7:09 PM TRANSPORTATION AIDE Autumn Chavis MD LAB BLOOD ORDERABLES Fin al Result Performing Organization Address City/[facility] Co de Phone Number [place] [address] [facility] [place] [address] * (ABNORMAL) Comprehensive metabolic panel (02/19/2023 6:51 PM TRANSPORTATION AIDE) Pathologist [facility] Sodium 137 135 - 145 mmol/L ALBERTO Comment:Testing performed by : [address], [place]., [address] Potassium, pl 3.7 3.3 - 4.9 mmol/L ALBERTO Comment:Testing performed by : [address], [place]., [address] Chloride 97 97 - 110 mmol/L ALBERTO Comment:Testing performed by : [address], [place]., [address] CO2 23 22 - 32 mmol/L ALBERTO Comment:Testing performed by : [address], [place]., [address] Anion gap 17(H) 2 - 15 mmol/L ALBERTO Comment:Testing performed by : [address], [place]., [address] BUN 8 6 - 25 mg/dL ALBERTO Comment:Testing performed by : [address], [place]., [address] Creatinine 0.50(L) 0.60 - 1.10 mg/dL ALBERTO Comment:Testing performed by : [address], [place]., [address] Glucose 95 70 - 199 mg/dL [facility] Comment: Interpretive Data Fasting glucose >/= [...] was last revised 2022. Testing performed by: [address] [address] Calcium 10.8(H) 8.5 - 10.3 mg/dL ALBERTO Comment:Testing performed by : [address], [place]., [address] Bilirubin, total 0.4 0.1 - 1.2 mg/dL ALBERTO Comment:Testing performed by : [address] [address] Protein, pl 9.3(H) 6.5 - 8.5 g/dL ALBERTO DELUCA Comment:Testing performed by : [address] [address] Albumin 4.8 3.5 - 5.0 g/dL ALBERTO DELUCA Comment:Testing performed by : [address] [address] Alk phos 184(H) 40 - 130 Units/L ALBERTO DELUCA Comment:Testing performed by : [address] [address] ALT 59(H) 7 - 45 Units/L ALBERTO DELUCA Comment:Testing performed by : [address] [address] AST 26 10 - 45 Units/L ALBERTO DELUCA Comment:Testing performed by : [address] [address] Blood 02/19/2023 6:51 PM TRANSPORTATION AIDE 02/19/2023 7:04 PM TRANSPORTATION AIDE us Autumn Chavis MD LAB BLOOD ORDERABLES Fin al Result ALBERTO [address] [facility] Department of Laboratories [place], [place] [id number] * (ABNORMAL) CBC with auto differential (02/19/2023 6:51 PM TRANSPORTATION AIDE) [facility] WBC 17.1(H) 3.8 - 9.9 K/cumm ALBERTO DELUCA Comment:Testing performed by : [address] [address] Hgb 12.1 11.9 - 15.5 g/dL ALBERTO DELUCA Comment: Interpretive Data A reference range for this assay has not been established for patients with an unknown legal sex. Please refer to the laboratory test catalog for established sex-specific reference intervals. Current interpretive data was last revised on 2023. Testing performed by: [address] [address] Hct 39.9 35.6 - 45.5 % ALBERTO DELUCA Comment: Interpretive Data A reference range for this assay has not been established for patients with an unknown legal sex. Please refer to the laboratory test catalog for established sex-specific reference intervals. Current interpretive data was last revised on 2023. Testing performed by: [address] [address] Plt 428(H) 150 - 400 K/cumm ALBERTO Comment:Testing performed by : [address] [address] MPV 10.5 9.1 - 12.3 fL ALBERTO Comment:Testing performed by : [address] [address] RBC 5.33(H) 3.90 - 5.20 M/cumm ALBERTO Comment: Interpretive Data A reference range for this assay has not been established for patients with an unknown legal sex. Please refer to the laboratory test catalog for established sex-specific reference intervals. Current interpretive data was last revised on 2023. Testing performed by: [address] [address] MCV 74.9(L) 81.3 - 96.4 fL ALBERTO Comment:Testing performed by : [address] [address] MCH 22.7(L) 27.1 - 33.3 pg ALBERTO Comment:Testing performed by : [address] [address] MCHC 30.3(L) 32.3 - 35.7 g/dL ALBERTO Comment:Testing performed by : [address] [address] RDW CV 17.2(H) 11.1 - 14.9 % ALBERTO Comment:Testing performed by : [address] [address] RDW SD 43.2 35.7 - 48.1 fL ALBERTO Comment:Testing performed by : [address] [address] NRBC abs 0.00 0.00 - 0.01 K/cumm ALBERTO DELUCA Comment:Testing performed by : [facility], [address] [place] [address], [place]., [address] Blood 02/19/2023 6:51 PM TRANSPORTATION AIDE 02/19/2023 7:04 PM TRANSPORTATION AIDE us Autumn Chavis MD LAB BLOOD ORDERABLES Fin al Result ALBERTO DELUCA [address] [facility] [place] [address] documented in this encounter Visit [...] Sat02/19/23 at 2144 Given 02/19/2023 10:12 PM TRANSPORTATION AIDE 975 mg bzyhflqsxm-ttbhmegaykgwd-xs ffeine (ESGIC) 50-325-40 mg per tablet 1 tablet 1 tablet, oral, 4 times daily PRN, headaches, Starting on Sat02/20/23 at 1151 Given 02/20/2023 1:09 PM TRANSPORTATION AIDE 1 tablet cefTRIAXone (ROCEPHIN) 1,000 mg/10 mL in sterile water (premix) 1,000 mg 1,000 mg, intravenous, at 600 mL/hr, Administer over 1 Minutes, Every 24 hours scheduled, First dose on Sat02/19/23 at 1945, Indications: Abdominal/Pelvic InfectionIndications:Abdomi nal/Pelvic Infection Given 02/19/2023 7:16 PM TRANSPORTATION AIDE 1,000 mg 600 mL/hr clindamycin (CLEOCIN) 900 mg/50 mL in dextrose 5% (premix) 900 mg 900 mg, intravenous, at 100 mL/hr, Administer over 30 Minutes, Every 8 hours scheduled, First dose on Sat02/19/23 at 2200, Indications: Abdominal/Pelvic InfectionIndications:Abdomi nal/Pelvic Infection New Bag 02/21/2023 1:56 PM TRANSPORTATION AIDE 900 mg 100 mL/hr New Bag 02/21/2023 5:45 AM TRANSPORTATION AIDE 900 mg 100 mL/hr New Bag 02/20/2023 9:56 PM TRANSPORTATION AIDE 900 mg 100 mL/hr docusate sodium (COLACE) capsule 100 mg 100 mg, oral, 2 times daily, First dose on Sat02/20/23 at 2230, Indications: constipationIndications:constipation Given 02/21/2023 11:47 AM TRANSPORTATION AIDE 100 mg Given 02/20/2023 10:28 PM TRANSPORTATION AIDE 100 mg fluconazole (DIFLUCAN) tablet 200 mg 200 mg, oral, Once, On Sat02/20/23 at 1230, For 1 dose, Indications: Prophylaxis, MedicalIndications:Prophylaxis, Medical Given 02/20/2023 1:09 PM TRANSPORTATION AIDE 200 mg gentamicin (GARAMYCIN) 90 mg in sodium chloride 0.9% 100 mL IVPB 90 mg (rounded from 85.65 mg = 1.5 mg/kg ? 57.1 kg Adjusted weight), intravenous, at 204.5 mL/hr, Administer over 30 Minutes, Every 8 hours, First dose on Sat02/19/23 at 2100, Indications: Abdominal/Pelvic InfectionIndications:Abdominal/Pe lvic Infection New Bag 02/21/2023 1:07 PM TRANSPORTATION AIDE 90 mg 204.5 mL/hr New Bag 02/21/2023 5:05 AM TRANSPORTATION AIDE 90 mg 204.5 mL/hr New 02/20/2023 8:47 PM TRANSPORTATION AIDE 90 mg 204.5 mL/hr hydrOXYzine (ATARAX) tablet [...] over 15 seconds Given 02/20/2023 10:36 AM TRANSPORTATION AIDE 30 mg Given 02/20/2023 3:04 AM TRANSPORTATION AIDE 30 mg Lactated Ringer's (LR) bolus 1,000 mL 1,000 mL, intravenous, As needed, for nonreassuring heart rate, variable decelerations, or late deceleration., Starting on Sat02/19/23 at 1823, For 1 dose New Bag 02/19/2023 6:35 PM TRANSPORTATION AIDE 1,000 mL Lactated Ringer's (LR) infusion 50 mL/hr, intravenous, Continuous, Starting on Sat02/19/23 at 2100 New Bag 02/21/2023 5:05 AM TRANSPORTATION AIDE 50 mL/hr 50 mL/hr New Bag 02/20/2023 5:48 AM TRANSPORTATION AIDE 125 mL/hr 125 mL/hr New Bag 02/19/2023 8:33 PM TRANSPORTATION AIDE 125 mL/hr 125 mL/hr ondansetron (ZOFRAN) injection 4 mg 4 mg, intravenous, Administer over 2 Minutes, Every 4 hours PRN, nausea, vomiting, Starting on Sat02/19/23 at 2145 oxyCODONE (ROXICODONE) tablet 5 mg 5 mg, oral, Every 4 hours PRN, 2nd line for pain, Starting on Sat02/19/23 at 2145, Indications: PainIndications:Pain Given 02/19/2023 10:12 PM TRANSPORTATION AIDE 5 mg documented in this encounter Discontinued [...] Recently Administered Medications Times are shown in TRANSPORTATION AIDE. Scheduled Medication Order 02/19/2023 02/20/2023 02/21/2023 cefTRIAXone [...] RN)1999 (Lab Draw - Provider: Suly Walters [facility] - Comment: please draw gentamicin trough prior to hanging dose)204 (New Bag - Provider: Haven Guerra RN)2200 (Lab Draw - Provider: Vicky Valdovinos [facility] - Comment: please draw gentamicin peak 30 [...] Provider: Lala Avery RN)1022 (Hold - Provider: oJsette Galdamez RN - Reason: IV Infusing) 0505 (New Bag - Provider: Haven Guerra RN)1428 (Stopped - Provider: Vivi Roberts RN) PRN Medication Order 02/19/2023 02/20/2023 02/21/2023 acetaminophen (TYLENOL) tablet 975 mg 975 mg (rounded from 1,000 mg), oral, Every 6 hours PRN, fever, 1st line for pain, Starting on Sat02/19/23 at 2144 2212 (Given - Provider: Marilin Batista RN) uziqsicyfm-hpwoylkdhrfer-eo ffeine (ESGIC) 50-325-40 mg per tablet 1 [...] 02/21/2023 documented in this encounter Care Teams [employer] Operator Relationship Specialty Start Date End Date No, Physician PCP - General 08/06/22 documented as of this encounter
--- OUTSIDE RECORDS SUMMARY | 2024-03-15 18:50 | XMS_ITS | Encounter Summary ---
Author Organization [facility] Healthcare Address [address] [place] [address] Care Team Providers Care Rail Flaw Detector Operator Name Role Phone No, Physician Primary Care Provider [phone] Reason for Visit * Reason Comments Problem Headache, blurry vis ion and seeing sports all starting at 0800 today Encounter Details Date Type Department Care Team (Late st Contact Info) Description 12/25/2022 3:56 PM CDT - 12/25/2022 6:11 PM CDT Emergency [facility] OB Emergency Department [address] [place], [place] [id number] Zachery Sullivan MD [address] [place], [place] [id number] Headache in , antepartum, third trimester (Primary [...] at 31 to 34 Weeks (Discharge Care) (Urdu) documented in this encounter Medications at Time [...] (six) hours 30 tablet 08/12/2022 02/21/2023 vit 81-uxaf-lwwih-dha 27mg iron- 800 mcg-250 mg capsule Take [...] health administration. Current Outpatient Medications: ? vit 29-wrfu-srlnk-dha, 1 tablet, oral, Daily Allergy: -- Ciprofloxacin [...] been treated for labor in this at [facility]. At 28 weeks she reported being tocolyzed [...] /HPF ALBERTO DELUCA Comment:Testing performed by : [facility], [address] [place] [address], [place]., [address] RBC, ur 0-2 0 - 2 /HPF ALBERTO DELUCA Comment:Testing performed by : [address] [address] Epithelial cells, squamous, ur 6-10(A) 0 - 5 /HPF ALBERTO DELUCA Comment:Testing performed by : [address] [address] Bacteria, ur 3+(A) ALBERTO DELUCA Comment:Testing performed by : [address] [address] Mucous, ur Present(A) ALBERTO DELUCA Comment:Testing performed by : [address], [place]., [address] Culture Reflex Comment Reflex conditions for urine culture (WBC >10) not met. ALBERTO DELUCA Comment:Testing performed by : [address] [address] Urine, clean voided 12/25/2022 4:42 PM CDT 12/25/2022 4:55 PM CDT us Dalia Kim MD LAB URINE ORDERABLES Edited Resu lt - Final ALBERTO [address] [facility] Department of Laboratories [place], [place] [id number] * Protein / creatinine ratio, urine, random (12/25/2022 4:42 PM CDT) Protein, ur, quant 5.0 mg/dL ALBERTO DELUCA Comment: Interpretive Data No reference range established. Current interpretive data was last revised 2018. Testing performed by: [address] [address] Creatinine Ur 32.4 mg/dL ALBERTO Comment: Interpretive Data No reference range established. Current interpretive data was last revised 2018. Testing performed by: [address] [address] Protein/creatinin e ratio 154.3 0.0 - 180.0 mg/g CR ALBERTO DELUCA Comment:Testing performed by : [address] [address] Urine 12/25/2022 4:42 PM CDT 12/25/2022 4:55 PM CDT us Dalia Kim MD LAB URINE ORDERABLES Final Resul t LISAFAVIOLA YOSI [address] [facility] Department [place] [address] * (ABNORMAL) Urinalysis reflex to microscopic and culture Urine, clean voided (12/25/2022 4:42 PM CDT) Color, ur Straw Yellow ALBERTO Comment:Testing performed by : [address] [address] Clarity, ur Clear Clear ALBERTO Comment:Testing performed by : [address] [address] Specific gravity, ur 1.006 1.003 - 1.030 ALBERTO Comment:Testing performed by : [address] [address] pH, urine 6.0 ALBERTO Comment: Interpretive Data ? Urine pH is affected by diet, medications, systemic acid-base disturbances, and renal tubular function. ??pH may affect urinary stone formation. ??For example, urine pH below 6.0 may help reduce the tendency for calcium phosphate stones and pH greater than 6.0 may reduce the tendency for uric acid stone formation. Source: [facility] [employer] Current Interpretive Data was last revised on 2017 Testing performed by: [address] [address] Protein, ur ql Negative Negative ALBERTO Comment:Testing performed by : [address] [address] Glucose, ur ql Negative Negative ALBERTO Comment:Testing performed by : [address] [address] Ketones, ur Negative Negative ALBERTO Comment:Testing performed by : [address] [address] Bilirubin, ur Negative Negative ALBERTO Comment:Testing performed by : [address] [address] Blood, ur Negative Negative ALBERTO Comment:Testing performed by : [facility], [address] [place] [address]., [address] Urobilinogen, ur <2.0 <2.0 mg/dL ALBERTO Comment:Testing performed by : [address] [address] Nitrite, ur Negative Negative ALBERTO Comment:Testing performed by : [address] [address] Leukocyte esterase, ur 1+(A) Negative ALBERTO Comment:Testing performed by : [address], [place]., [address] UA reflex comment Reflex to microscopic UA will be performed. ALBERTO Comment:Testing performed by : [address] [address] Urine, clean voided 12/25/2022 4:42 PM CDT 12/25/2022 4:55 PM CDT Dalia Kim MD LAB MICROBIOLOGY - GENERAL ORDER LUTHER Final Result [facility] [address] [facility] Department [place] [address] * eGFR (12/25/2022 4:40 PM [...] was last reviewed 2021. Testing performed by: [address] [address] Blood 12/25/2022 4:40 PM CDT 12/25/2022 4:55 PM CDT us Dalia Kim MD LAB BLOOD ORDERABLES Final Resul t ALBERTO [facility] Department [place] [address] * (ABNORMAL) CBC without differential (12/25/2022 4:40 PM CDT) WBC 10.1(H) 3.8 - 9.9 K/cumm ALBERTO DELUCA Comment:Testing performed by : [address] [address] Hgb 8.9(L) 11.9 - 15.5 g/dL ALBERTO DELUCA Comment:Testing performed by : [address] [address] Hct 28.2(L) 35.6 - 45.5 % ALBERTO DELUCA Comment:Testing performed by : [address] [address] Plt 189 150 - 400 K/cumm ALBERTO DELUCA Comment:Testing performed by : [address] [address] MPV 11.2 9.1 - 12.3 fL ALBERTO DELUCA Comment:Testing performed by : [address] [address] RBC 3.53(L) 3.90 - 5.20 M/cumm ALBERTO DELUCA Comment:Testing performed by : [address] [address] MCV 79.9(L) 81.3 - 96.4 fL ALBERTO DELUCA Comment:Testing performed by : [address] [address] MCH 25.2(L) 27.1 - 33.3 pg ALBERTO DELUCA Comment:Testing performed by : [address] [address] MCHC 31.6(L) 32.3 - 35.7 g/dL ALBERTO DELUCA Comment:Testing performed by : [address] [address] RDW CV 13.8 11.1 - 14.9 % ALBERTO DELUCA Comment:Testing performed by : [address] [address] RDW SD 39.6 35.7 - 48.1 fL ALBERTO DELUCA Comment:Testing performed by : [address] [address] NRBC abs 0.00 0.00 - 0.01 K/cumm ALBERTO Comment:Testing performed by : [address] [address] Blood 12/25/2022 4:40 PM CDT 12/25/2022 4:55 PM CDT us Dalia Kim MD LAB BLOOD ORDERABLES Final Resul t ALBERTO [address] [facility] Department of Laboratories [place], [place] [id number] * (ABNORMAL) Comprehensive metabolic panel (12/25/2022 4:40 PM CDT) Sodium 139 135 - 145 mmol/L ALBERTO DELUCA Comment:Testing performed by : [address] [address] Potassium, pl 3.5 3.3 - 4.9 mmol/L ALBERTO DELUCA Comment:Testing performed by : [address] [address] Chloride 105 97 - 110 mmol/L [facility] Comment:Testing performed by : [address] [address] CO2 21(L) 22 - 32 mmol/L [facility] Comment:Testing performed by : [address], [place]., [address] Anion gap 13 2 - 15 mmol/L [facility] Comment:Testing performed by : [address], [place]., [address] BUN 4(L) 6 - 25 mg/dL [facility] Comment:Testing performed by : [address], [place]., [address] Creatinine 0.30(L) 0.60 - 1.10 mg/dL [facility] Comment:Testing performed by : [address], [place]., [address] Glucose 108 70 - 199 mg/dL [facility] Comment: Interpretive Data Fasting glucose [...] was last revised 2022. Testing performed by: [address] [address] Calcium 9.1 8.5 - 10.3 mg/dL [facility] Comment:Testing performed by : [address] [address] Bilirubin, total 0.2 0.1 - 1.2 mg/dL [facility] Comment:Testing performed by : [address] [address] Protein, pl 6.5 6.5 - 8.5 g/dL [facility] Comment:Testing performed by : [address], [place]., [address] Albumin 3.7 3.5 - 5.0 g/dL ALBERTO DELUCA Comment:Testing performed by : [facility], [address] [place] [address]., [address] Alk phos 93 40 - 130 Units/L ALBERTO DELUCA Comment:Testing performed by : [facility], [address] [place] [address]., [address] ALT 10 7 - 45 Units/L ALBERTO DELUCA Comment:Testing performed by : [address] [address] AST 11 10 - 45 Units/L ALBERTO DELUCA Comment:Testing performed by : [facility], [address] [place] [address]., [address] Blood 12/25/2022 4:40 PM CDT 12/25/2022 4:55 PM CDT us Dalia Kim MD LAB BLOOD ORDERABLES Final Resul t ALBERTO [address] [facility] Department [place] [address] documented in this encounter Visit [...] 12/25/2022 documented in this encounter Care Teams Rail Flaw Detector Operator Relationship Specialty Start Date End Date No, Physician PCP - General 08/06/22 documented as of this encounter
--- OUTSIDE RECORDS SUMMARY | 2024-03-15 18:50 | XMS_ITS | Encounter Summary ---
Author Organization [facility] Address [address] [place] [address] Care Team Providers Care Paraprofessional Interpreter Name Role Phone No, Physician Primary Care Provider [phone] Encounter Details Date Type Department Care Team (Late st Contact Info) Description 08/23/2022 E-Visit [facility] Virtual Care [address] [place] [address] Reyna Alex MD [address] [place] [id number] Your Medications Social History Tobacco Use [...] prescribed, if applicable, as well as any ttgd-urd-vwsfrwn remedies. She was given instructions regarding follow up and timeframe if symptoms worsen or don???t improve. These instructions were included in the [employer] message reply tothe patient. Patient Instructions were [...] Primary documented in this encounter Care Teams Paraprofessional Interpreter Relationship Specialty Start Date End Date No, Physician PCP - General 08/06/22 documented as of this encounter
--- OUTSIDE RECORDS SUMMARY | 2024-03-15 18:50 | XMS_ITS | Encounter Summary ---
Author Organization [facility] Healthcare Address [address] [place] [address] Care Team Providers Care Casino Gaming Inspector Name Role Phone No, Physician Primary Care Provider [phone] Encounter Details Date Type Department Care Team (Late st Contact Info) Description 02/18/2023 Patient Self-Triage [facility] [facility] [place] [address] Mycsaeidt, Generic Provider [address] [place], [place] [phone] Social History Tobacco Use Types Packs/Day Years [...] on filedocumented in this encounter Care Teams Casino Gaming Inspector Relationship Specialty Start Date End Date No Physician PCP - General 08/06/22 documented as of this encounter
--- OUTSIDE RECORDS SUMMARY | 2024-03-15 18:50 | XMS_ITS | Encounter Summary ---
Author Organization [facility] Healthcare Address [address] [place] [address] Care Team Providers Care Pawn Broker Name Role Phone No, Physician Primary Care Provider [phone] Reason for Visit * Reason Comments Vaginal Bleeding - Encounter Details Date Type Department Care Team (Late st Contact Info) Description 08/19/2022 10:42 PM CDT - 08/20/2022 1:43 AM CDT Emergency [facility] Emergency Department [address] [place] [id number] Amairani Schmitz MD [address] [place] [address] [place] [address] Bleeding in early (Primary Dx); [...] through Care Everywhere. * Abdominal Pain in (Electromechanical Technologist) (Swedish) documented in this encounter Medications at Time [...] MD This examination was transcribed using the [employer] voice recognition system without human steward/stewardess deck. In an effort to expedite patient care, this report has not been adjusted for typographical, grammatical, and syntax by a trained medical historian. Clinical Impression: Bleeding in early Abdominal pain [...] * eGFR (08/19/2022 11:01 PM CDT) Pathologist [facility] eGFR 143 mL/min/1. 73 m2 ALBERTO DELUCA [...] was last reviewed 2021. Testing performed by: [address] [address] Blood 08/19/2022 11:0 1 PM CDT 08/19/2022 11:05 PM CDT us Amairani Schmitz MD LAB BLOOD ORDERABLES Estefany lindsey Result ALBERTO [address] [facility] Department [place] [address] * (ABNORMAL) Differential, auto (08/19/2022 11:01 PM CDT) Neutrophil abs 8.6(H) 1.7 - 6.5 K/cumm ALBERTO Comment:Testing performed by : [address] [address] Imm gran abs 0.1 0.0 - 0.1 K/cumm ALBERTO Comment:Testing performed by : [address] [address] Lymphocyte abs 1.7 0.8 - 3.3 K/cumm ALBERTO Comment:Testing performed by : [address] [address] Monocyte abs 0.6 0.2 - 0.8 K/cumm [facility] Comment:Testing performed by : [address] [address] Eosinophil abs 0.1 0.0 - 0.5 K/cumm [facility] Comment:Testing performed by : [address] [address] Basophil abs 0.1 0.0 - 0.1 K/cumm [facility] Comment:Testing performed by : [address] [address] Neutrophil pct 77.8 % [facility] Comment: Interpretive Data Percent cell count reference ranges are not reported, since discordance with absolute values may lead to misinterpretation of CBC data. Current Interpretive Data was last revised on 2017. Testing performed by: [address] [address] Imm gran pct 0.4 % [facility] Comment: Interpretive Data Percent cell count reference ranges are not reported, since discordance with absolute values may lead to misinterpretation of CBC data. Current Interpretive Data was last revised on 2017. Testing performed by: [address] [address] Lymphocyte pct 15.1 % [facility] Comment: Interpretive Data Percent cell count reference ranges are not reported, since discordance with absolute values may lead to misinterpretation of CBC data. Current Interpretive Data was last revised on 2017. Testing performed by: [address] [address] Monocyte pct 4.9 % [facility] Comment: Interpretive Data Percent cell count reference ranges are not reported, since discordance with absolute values may lead to misinterpretation of CBC data. Current Interpretive Data was last revised on 2017. Testing performed by: [address] [address] Eosinophil pct 1.3 % [facility] Comment: Interpretive Data Percent cell count reference ranges are not reported, since discordance with absolute values may lead to misinterpretation of CBC data. Current Interpretive Data was last revised on 2017. Testing performed by: [address] [address] Basophil pct 0.5 % ALBERTO Comment: Interpretive Data Percent cell count reference ranges are not reported, since discordance with absolute values may lead to misinterpretation of CBC data. Current Interpretive Data was last revised on 2017. Testing performed by: [address] [address] Blood 08/19/2022 11:0 1 PM CDT 08/19/2022 11:05 PM CDT Amairani Schmitz MD LAB BLOOD ORDERABLES Estefany l Result Performing Organization Address City/[facility]/ZIP Co de Phone Number [address] [employer] [place] [address] * Antibody screen (08/19/2022 11:01 PM CDT) Delilah, indirect, Gel Interpretation Negative ABSC ALBERTO Comment:Testing performed by : [address] [address] Blood 08/19/2022 11:0 1 PM CDT 08/19/2022 11:05 PM CDT Narrative ALBERTO - 08/19/2022 11:53 PM CDT Has the patient had Daratumumab or Isatuximab in the past 6 months?->Unknown Amairani Schmitz MD LAB BLOOD BANK TEST ORDER LUTHER Final Result Performing Organization Address [facility] Co de Phone Number [address] [place] [address] * ABO/Rh (08/19/2022 11:01 PM CDT) ABO/Rh A Positive ALBERTO Comment:Testing performed by : [address] [address] Blood 08/19/2022 11:0 1 PM CDT 08/19/2022 11:05 PM CDT Narrative ALBERTO - 08/19/2022 11:53 PM CDT Has the patient had Daratumumab or Isatuximab in the past 6 months?->Unknown Amairani Schmitz MD LAB BLOOD BANK TEST ORDER LUTHER Final Result ALBERTO [address] [facility] Department [place] [address] * (ABNORMAL) Basic metabolic panel (08/19/2022 11:01 PM CDT) Sodium 137 135 - 145 mmol/L ALBERTO Comment:Testing performed by : [address] [address] Potassium, pl 3.3 3.3 - 4.9 mmol/L ALBERTO Comment:Testing performed by : [address] [address] Chloride 101 97 - 110 mmol/L ALBERTO Comment:Testing performed by : [address] [address] CO2 22 22 - 32 mmol/L ALBERTO Comment:Testing performed by : [address] [address] Anion gap 14 2 - 15 mmol/L ALBERTO Comment:Testing performed by : [address] [address] BUN 6(L) 8 - 25 mg/dL ALBERTO Comment:Testing performed by : [address] [address] Creatinine 0.40(L) 0.60 - 1.10 mg/dL ALBERTO Comment:Testing performed by : [address] [address] Glucose 88 70 - 199 mg/dL ALBERTO [...] was last revised 2022. Testing performed by: [address] [address] Calcium 9.7 8.5 - 10.3 mg/dL ALBERTO DELUCA Comment:Testing performed by : [address] [address] Blood 08/19/2022 11:0 1 PM CDT 08/19/2022 11:05 PM CDT us Amairani Schmitz MD LAB BLOOD ORDERABLES Estefany lindsey Result ALBERTO DELUCA [address] [facility] Department [place] [address] * (ABNORMAL) CBC with auto differential (08/19/2022 11:01 PM CDT) WBC 11.1(H) 3.8 - 9.9 K/cumm ALBERTO DELUCA Comment:Testing performed by : [address] [address] Hgb 13.6 11.9 - 15.5 g/dL ALBERTO DELUCA Comment:Testing performed by : [address] [address] Hct 39.8 35.6 - 45.5 % ALBERTO DELUCA Comment:Testing performed by : [address] [address] Plt 164 150 - 400 K/cumm ALBERTO Comment:Testing performed by : [address] [address] MPV 11.9 9.1 - 12.3 fL ALBERTO DELUCA Comment:Testing performed by : [address] [address] RBC 4.61 3.90 - 5.20 M/cumm ALBERTO DELUCA Comment:Testing performed by : [address] [address] MCV 86.3 81.3 - 96.4 fL ALBERTO DELUCA Comment:Testing performed by : [address] [address] MCH 29.5 27.1 - 33.3 pg ALBERTO DELUCA Comment:Testing performed by : [address] [address] MCHC 34.2 32.3 - 35.7 g/dL ALBERTO DELUCA Comment:Testing performed by : [address] [address] RDW CV 13.1 11.1 - 14.9 % ALBERTO DELUCA Comment:Testing performed by : [address] [address] RDW SD 40.5 35.7 - 48.1 fL ALBERTO DELUCA Comment:Testing performed by : [address] [address] NRBC abs 0.00 0.00 - 0.01 K/cumm ALBERTO DELUCA Comment:Testing performed by : [address] [address] Blood (Blood, Venous) 08/19/2022 11:01 PM CDT 08/19/2022 11:05 PM CDT Amairani Schmitz MD LAB BLOOD ORDERABLES Estefany lindsey Result ALBERTO [facility] Department [place] [address] documented in this encounter Visit [...] 08/19/2022 documented in this encounter Care Teams Pawn Broker Relationship Specialty Start Date End Date No, Physician PCP - General 08/06/22 documented as of this encounter
--- OUTSIDE RECORDS SUMMARY | 2024-03-15 18:50 | XMS_ITS | Encounter Summary ---
Author Organization [facility] Healthcare Address [address] [place] [address] Care Team Providers Care Recreational Aide Name Role Phone No, Physician Primary Care Provider [phone] Reason for Visit * Reason Comments Problem Pt sent from office, pt reports passing out and pt report bp was low and pulse was high Encounter Details Date Type Department Care Team (Late st Contact Info) Description 01/15/2023 1:01 PM CDT - 01/15/2023 3:00 PM CDT Emergency [facility] OB Emergency Department [address] [place], [place] [phone] Coni Perry DO [address] [id number] Vomiting during late (Primary Dx) Discharge Disposition: [...] at 35 to 38 Weeks (Discharge Care) (Palauan) documented in this encounter Medications at Time [...] hours 12 tablet 2 01/15/2023 3 vit 05-jeer-tuuxw-dh a 27mg iron- 800 mcg-250 mg capsule [...] iron, oral, Daily with breakfast ? vit 87-fzbr-wpfad-dha, 1 tablet, oral, Daily Allergy: -- Ciprofloxacin [...] are reviewed in Care everywhere and from [facility] 1. Nausea/vomiting/syncopal episode. Per patient and observers [...] 5 /HPF ALBERTO Comment:Testing performed by : [address] [address] RBC, ur 0-2 0 - 2 /HPF ALBERTO Comment:Testing performed by : [address] [address] Epithelial cells, squamous, ur >50(A) 0 - 5 /HPF ALBERTO DELUCA Comment:Testing performed by : [address] [address] Mucous, ur Present(A) ALBERTO Comment:Testing performed by : [address] [address] Culture Reflex Comment Reflex conditions for urine culture (WBC >10) not met. ALBERTO Comment:Testing performed by : [address] [address] Urine, clean voided 01/15/2023 1:40 PM CDT 01/15/2023 1:50 PM CDT us Dalia Kim MD LAB URINE ORDERABLES Final Resul t ALBERTO [address] [facility] Department [place] [address] * (ABNORMAL) Urinalysis reflex to microscopic and culture Urine, clean voided (01/15/2023 1:40 PM CDT) Color, ur Yellow Yellow ALBERTO Comment:Testing performed by : [address] [address] Clarity, ur Cloudy(A) Clear ALBERTO Comment:Testing performed by : [address] [address] Specific gravity, ur 1.016 1.003 - 1.030 ALBERTO Comment:Testing performed by : [address] [address] pH, urine 7.0 ALBERTO Comment: Interpretive Data ? Urine pH is affected by diet, medications, systemic acid-base disturbances, and renal tubular function. ??pH may affect urinary stone formation. ??For example, urine pH below 6.0 may help reduce the tendency for calcium phosphate stones and pH greater than 6.0 may reduce the tendency for uric acid stone formation. Source: [facility] [employer] Current Interpretive Data was last revised on 2017 Testing performed by: [address] [address] Protein, ur ql 1+(A) Negative ALBERTO Comment:Testing performed by : [address] [address] Glucose, ur ql Negative Negative ALBERTO Comment:Testing performed by : [address] [place]., [address] Ketones, ur Negative Negative ALBERTO Comment:Testing performed by : [address], [place]., [address] Bilirubin, ur Negative Negative ALBERTO DELUCA Comment:Testing performed by : [address], [place]., [address] Blood, ur Negative Negative ALBERTO DELUCA Comment:Testing performed by : [address], [place]., [address] Urobilinogen, ur 4.0(A) <2.0 mg/dL ALBERTO DELUCA Comment:Testing performed by : [address], [place]., [address] Nitrite, ur Negative Negative ALBERTO DELUCA Comment:Testing performed by : [address], [place]., [address] Leukocyte esterase, ur Negative Negative ALBERTO Comment:Testing performed by : [address], [place]., [address] UA reflex comment Reflex to microscopic UA will be performed. ALBERTO Comment:Testing performed by : [address], [place]., [address] Urine, clean voided 01/15/2023 1:40 PM CDT 01/15/2023 1:50 PM CDT us Dalia Kim MD LAB MICROBIOLOGY - GENERAL ORDER LUTHER Final Result ALBERTO [address] [facility] Department [place] [address] documented in this encounter Visit [...] 1400 [id number] (Not Given - Pr ovider: Hvaen Rojas RN - Reason: Other - Comment: [...] 01/15/2023 documented in this encounter Care Teams Recreational Aide Relationship Specialty Start Date End Date No, Physician PCP - General 08/06/22 documented as of this encounter
--- OUTSIDE RECORDS SUMMARY | 2024-03-15 18:50 | XMS_ITS | Encounter Summary ---
Author Organization [facility] Healthcare Address [address] [place] [address] Care Team Providers Care Database Administration Associate Name Role Phone No, Physician Primary Care Provider [phone] Reason for Visit * Reason Comments Problem Reports lower back/l ower abdominal pain for whole and slightly brown mucus/discharge when wiping at 10 Am, denies any active bleeding at this time. Reports good movement. States was treated at [facility] for labor recently with a +FFN. Encounter Details Date Type Department Care Team (Late st Contact Info) Description 12/13/2022 1:13 PM CDT - 12/13/2022 2:[address] [facility] OB Emergency Department [address] [place], [place] [id number] Coni Perry, DO [address] [id number] Vaginal discharge during in third trimester (Primary [...] (six) hours 30 tablet 08/12/2022 02/21/2023 vit 46-mnfc-jvjdg-dha 27mg iron- 800 mcg-250 mg capsule Take [...] time. Reports good movement. States wastreated at [facility] for labor recently with a +FFN. 22 y.o. at 29w5d here for brown red d/c when voiding She reports ahh so, I just noticed when I went to the bathroom earlier brown red dicharge like old blood in the toilet while voiding. No other VB. Reports good FM denies LOF and ctxs. Blood type A+. Started care at [place] and has appt Saturday (4 days). History provided by: Patient comb fixer used: No Patient History: Patient Active Problem [...] w/ precautions keep JEANNA appt Saturday at [place] (4 days) Final diagnoses: None Neeraj Grace [...] hours as needed for pain 08/12/2023 vit 34-posf-xdwkh-dha 27mg iron- 800 mcg-250 mg capsule Take 1 tablet by mouth daily 08/12/2023 added in this encounter Care Teams Database Administration Associate Relationship Specialty Start Date End Date No, Physician PCP - General 08/06/22 documented as of this encounter
--- OUTSIDE RECORDS SUMMARY | 2024-03-15 18:50 | XMS_ITS | Encounter Summary ---
Author Organization [facility] Medical [facility] Address [address] [place] [address] Care Team Providers Care Five Piece Expansion Maker Hand Name Role Phone No, Physician Primary Care Provider [phone] Encounter Details Date Type Department Care Team (Late st Contact Info) Description 10/18/2022 E-Visit [facility] Virtual Care [address] [place] [address] Dede Nelson, OZIEL [address] [place], [place] [id number] E-Visit for Urinary Tract Infection Social History [...] prescribed, if applicable, as well as any svsl-tsk-yntabpd remedies. She was given instructions regarding follow up and timeframe if symptoms worsen or don???t improve. These instructions were included in the Ec[employer] message reply tothe patient. Patient Instructions were included in the message reply to patient. My total encounter time on 10/18/2022 was 5 minutes which was spent in the activities documented inthe note. Dede Nelson NP documented in this encounter Plan of Treatment Not on file documented as of this encounter Visit Diagnoses Not on filedocumented in this encounter Care Teams Five Piece Expansion Maker Hand Relationship Specialty Start Date End Date No, Physician PCP - General 08/06/22 documented as of this encounter
--- OUTSIDE RECORDS SUMMARY | 2024-03-15 18:50 | XMS_ITS | Encounter Summary ---
Author Organization [facility] Healthcare Address [address] [place] [address] Care Team Providers Care Food Service Substitute Name Role Phone No, Physician Primary Care Provider [phone] Encounter Details Date Type Department Care Team (Late st Contact Info) Description 12/21/2022 Patient Self-Triage [facility] Health[facility] Physicians [facility] [place] [address] Mychart, Generic Provider [address] [place], [place] [id number] Social History Tobacco Use Types Packs/Day Years [...] filedocumented in this encounter Care Teams Food Service Substitute Relationship Specialty Start Date End Date No, Physician PCP - General 08/06/22 documented as of this encounter
--- OUTSIDE RECORDS SUMMARY | 2024-03-15 18:50 | XMS_ITS | Encounter Summary ---
Author Organization [facility] Healthcare Address [address] [place] [address] Care Team Providers Care Field Traffic Investigator Name Role Phone No, Physician Primary Care Provider [phone] Reason for Visit * Reason Comments Sinus Problem Entered automaticall y based on patient selection in Tray. Encounter Details Date Type Department Care Team (Late st Contact Info) Description 02/18/2023 12:10 PM ASSISTANT RESTAURANT GENERAL MANAGER E-Visit [facility] Virtual Care [address] [place] [address] Dede Nelson, OZIEL [address] [place] [address] Your Medications Social History Tobacco [...] prescribed, if applicable, as well as any qntj-bpu-qvxkeqx remedies. She was given instructions regarding follow up and timeframe if symptoms worsen or don???t improve. These instructions were included in the Tray message reply tothe patient. Patient Instructions were included in the message reply to patient. My total encounter time on 02/18/2023 was 5 minutes which was spent in the activities documented inthe note. New Medications Ordered This Visit amoxicillin-clavulanate (Augmentin) 875-125 mg per tablet Sig: Take 1 tablet by mouth 2 (two) times a day Dispense: 20 tablet Refill: 0 Dede Nelson NP STANT RESTAURANT GENERAL MANAGER documented in this encounter Plan of Treatment Not on file documented as of this encounter Visit Diagnoses Diagnosis Acute non-recurrent sinusitis, unspecified location- Primary documented in this encounter Care Teams Field Traffic Investigator Relationship Specialty Start Date End Date No, Physician PCP - General 08/06/22 documented as of this encounter
--- OUTSIDE RECORDS SUMMARY | 2024-03-15 18:51 | XMS_ITS | Encounter Summary ---
Author Organization [facility] Healthcare Address [address] [place] [address] Care Team Providers Care Book Mender Name Role Phone No, Physician Primary Care Provider [phone] Reason for Visit * Reason Comments Vaginal Bleeding - Encounter Details Date Type Department Care Team (Late st Contact Info) Description 08/12/2022 5:55 PM CDT - 08/12/2022 7:59 PM CDT Emergency [facility] Emergency Department [address] [place], [place] [address] Kush Perez MD [address] [place] [address] [place] [address] Acute right-sided low back pain without [...] this medicine as needed for nausea, take zqph-qrd-pfxlrwg Tylenol as needed for pain, stay well [...] tendency for uric acid stone formation. Source: [facility] [email or web address].Last revised 04-04-2017 HCG, BLOOD, QUANTITATIVE - Abnormal [...] Not identified Mean sacdiameter: None applicable cm [place]-rump length: 4.62 cm heart rate: 168 bpm [...] Ellis Sherman M.D. JA: LANI Report ID: [id number] Reading Location: [id number] ED COURSE/MEDICAL DECISION MAKING ED Course as [...] she advised me to have patient take bgtk-shx-fczkxen Tylenol with occasional Motrin as needed for [...] TO FOLLOW UP Leyla Noble MD [address] [facility] [address] DISCHARGE MEDICATIONS Your medication list START taking [...] tablet This examination was transcribed using the [employer] voice recognition system without human ballast cleaning operator. In an effort to expedite patient care, this report has not been adjusted for typographical, grammatical, and syntax by a trained biomedical equipment specialist. Sharda Aguilar NP 08/12/221952 Cosigned by Kush [...] onset yesterday-initially brown discharge, today it is operations officer afloat flow but color is pink. C/o rt [...] was last reviewed 2021. Testing performed by: [address] [address] Blood 08/12/2022 5:20 PM CDT 08/12/2022 5:25 PM CDT us Sharda Aguilar NP LAB BLOOD ORDERABLES Final Resul t [facility] [address] [facility] Department [place] [address] * (ABNORMAL) Urinalysis, microscopic only (08/12/2022 5:20 PM CDT) WBC, ur 0-5 0 - 5 /HPF ALBERTO Comment:Testing performed by : [address] [address] RBC, ur 6-10(A) 0 - 2 /HPF AL[facility]ERTO Comment:Testing performed by : [address] [address] Epithelial cells, squamous, ur >50(A) 0 - 5 /HPF AL[facility]ERTO Comment:Testing performed by : [address] [address] Bacteria, ur 2+(A) ALBERTO Comment:Testing performed by : [address] [address] Mucous, ur Present(A) ALBERTO Comment:Testing performed by : [address] [address] Culture Reflex Comment Reflex conditions for urine culture (WBC >10) not met. ALBERTO Comment:Testing performed by : [address] [address] Urine 08/12/2022 5:20 PM CDT 08/12/2022 5:25 PM CDT us Sharda Aguilar NP LAB URINE ORDERABLES Final Resul t [facility] [address] [facility] Department of Laboratories [place], [place] [id number] * (ABNORMAL) Differential, auto (08/12/2022 5:20 PM CDT) Neutrophil abs 7.4(H) 1.7 - 6.5 K/cumm ALBERTO Comment:Testing performed by : [address] [address] Imm gran abs 0.1 0.0 - 0.1 K/cumm ALBERTO Comment:Testing performed by : [address] [address] Lymphocyte abs 1.4 0.8 - 3.3 K/cumm ALBERTO Comment:Testing performed by : [address] [address] Monocyte abs 0.4 0.2 - 0.8 K/cumm AL[facility]ERTO Comment:Testing performed by : [address] [address] Eosinophil abs 0.1 0.0 - 0.5 K/cumm AL[facility]ERTO Comment:Testing performed by : [address] [address] Basophil abs 0.0 0.0 - 0.1 K/cumm AL[facility]ERTO Comment:Testing performed by : [address] [address] Neutrophil pct 78.7 % AL[facility]ERTO Comment: Interpretive Data Percent cell count reference ranges are not reported, since discordance with absolute values may lead to misinterpretation of CBC data. Current Interpretive Data was last revised on 2017. Testing performed by: [address] [address] Imm gran pct 0.5 % [facility] Comment: Interpretive Data Percent cell count reference ranges are not reported, since discordance with absolute values may lead to misinterpretation of CBC data. Current Interpretive Data was last revised on 2017. Testing performed by: [address] [address] Lymphocyte pct 15.2 % [facility] Comment: Interpretive Data Percent cell count reference ranges are not reported, since discordance with absolute values may lead to misinterpretation of CBC data. Current Interpretive Data was last revised on 2017. Testing performed by: [address] [address] Monocyte pct 4.6 % [facility] Comment: Interpretive Data Percent cell count reference ranges are not reported, since discordance with absolute values may lead to misinterpretation of CBC data. Current Interpretive Data was last revised on 2017. Testing performed by: [address] [address] Eosinophil pct 0.6 % [facility] Comment: Interpretive Data Percent cell count reference ranges are not reported, since discordance with absolute values may lead to misinterpretation of CBC data. Current Interpretive Data was last revised on 2017. Testing performed by: [address] [address] Basophil pct 0.4 % [facility] Comment: Interpretive Data Percent cell count reference ranges are not reported, since discordance with absolute values may lead to misinterpretation of CBC data. Current Interpretive Data was last revised on 2017. Testing performed by: [address] [address] Blood 08/12/2022 5:20 PM CDT 08/12/2022 5:25 PM CDT Sharda Aguilar NP LAB BLOOD ORDERABLES Final Resul t [facility] [address] [facility] Department of Laboratories [place], [place] [id number] * (ABNORMAL) Urinalysis reflex to microscopic and culture Urine (08/12/2022 5:20 PM CDT) Color, ur Tonya Yellow ALBERTO Comment:Testing performed by : [facility] [address] [place] [address]., [address] Clarity, ur Cloudy(A) Clear ALBERTO Comment:Testing performed by : [address], [place]., [address] Specific gravity, ur 1.029 1.003 - 1.030 ALBERTO Comment:Testing performed by : [address] [address] pH, urine 6.0 ALBERTO Comment:Testing performed by : [address] [address] Protein, ur ql 1+(A) Negative ALBERTO Comment:Testing performed by : [address] [address] Glucose, ur ql Negative Negative ALBERTO Comment:Testing performed by : [address] [address] Ketones, ur Negative Negative ALBERTO Comment:Testing performed by : [address] [address] Bilirubin, ur Negative Negative ALBERTO Comment:Testing performed by : [address] [address] Blood, ur Negative Negative ALBERTO Comment:Testing performed by : [address] [address] Urobilinogen, ur <2.0 <2.0 mg/dL AL[facility]ERTO Comment:Testing performed by : [address] [address] Nitrite, ur Negative Negative ALBERTO Comment:Testing performed by : [address] [address] Leukocyte esterase, ur 1+(A) Negative ALBERTO Comment:Testing performed by : [address] [address] UA reflex comment Reflex to microscopic UA will be performed. ALBERTO Comment:Testing performed by : [address] [address] Urine 08/12/2022 5:20 PM CDT 08/12/2022 5:25 [...] tendency for uric acid stone formation. Source: [facility] [email or web address]. Last revised 04-04-2017 us Sharda Aguilar NP LAB MICROBIOLOGY - GENERAL ORDER LUTHER Final Result [facility]O [address] [facility] Department [place] [address] * (ABNORMAL) Comprehensive metabolic panel (08/12/2022 5:20 PM CDT) Sodium 138 135 - 145 mmol/L ALBERTO Comment:Testing performed by : [address] [address] Potassium, pl 3.8 3.3 - 4.9 mmol/L ALBERTO DELUCA Comment:Testing performed by : [address] [address] Chloride 102 97 - 110 mmol/L ALBERTO Comment:Testing performed by : [address] [address] CO2 24 22 - 32 mmol/L AL[facility]ERTO Comment:Testing performed by : [address] [address] Anion gap 12 2 - 15 mmol/L AL[facility]ERTO Comment:Testing performed by : [address] [address] BUN 5(L) 8 - 25 mg/dL ALBERTO DELUCA Comment:Testing performed by : [address] [address] Creatinine 0.40(L) 0.60 - 1.10 mg/dL AL[facility]ERTO Comment:Testing performed by : [address] [address] Glucose 115 70 - 199 mg/dL ALBERTO [...] was last revised 2022. Testing performed by: [address] [address] Calcium 9.3 8.5 - 10.3 mg/dL AL[facility]ERTO Comment:Testing performed by : [address] [address] Bilirubin, total 0.3 0.1 - 1.2 mg/dL [facility] Comment:Testing performed by : [address] [address] Protein, pl 7.4 6.5 - 8.5 g/dL [facility] Comment:Testing performed by : [address] [address] Albumin 4.3 3.5 - 5.0 g/dL [facility] Comment:Testing performed by : [address] [address] Alk phos 54 40 - 130 Units/L [facility] Comment:Testing performed by : [address] [address] ALT 30 7 - 45 Units/L AL[facility]ERTO Comment:Testing performed by : [address] [address] AST 18 10 - 45 Units/L AL[facility]ERTO Comment:Testing performed by : [address] [address] Blood 08/12/2022 5:20 PM CDT 08/12/2022 5:25 PM CDT Sharda Aguilar NP LAB BLOOD ORDERABLES Final Resul t Performing Organization Address [facility] de Phone Number [address] [address] * ABO/Rh (08/12/2022 5:20 PM CDT) Pathologist [facility] ABO/Rh A Positive ALBERTO Comment:Testing performed by : [facility], [address] [place] [address]., [address] Blood 08/12/2022 5:20 PM CDT 08/12/2022 5:25 PM CDT Result [facility] Sharda Aguilar NP LAB BLOOD BANK TEST ORDERABLES F inal Result Performing Organization Address [facility] de Phone Number [place] [id number] [facility] [email or web address] [address] * (ABNORMAL) hCG, blood, quantitative (08/12/2022 5:20 PM CDT) Pathologist [facility] hCG, quant 169,199.0 (H) 0.0 - 5.0 [...] last revised on 2021. Testing performed by: [address] [address] Blood 08/12/2022 5:20 PM CDT 08/12/2022 5:25 PM CDT us Sharda Aguilar NP LAB BLOOD ORDERABLES Final Resul t [facility] [address] [facility] Department [place] [address] * CBC with auto differential (08/12/2022 5:20 PM CDT) WBC 9.4 3.8 - 9.9 K/cumm ALBERTO Comment:Testing performed by : [address] [address] Hgb 12.5 11.9 - 15.5 g/dL AL[facility]ERTO Comment:Testing performed by : [address] [address] Hct 37.4 35.6 - 45.5 % [facility]ERTO Comment:Testing performed by : [address] [address] Plt 216 150 - 400 K/cumm ALBERTO Comment:Testing performed by : [address] [address] MPV 10.9 9.1 - 12.3 fL [facility]ERTO Comment:Testing performed by : [address] [address] RBC 4.29 3.90 - 5.20 M/cumm AL[facility]ERTO Comment:Testing performed by : [address] [address] MCV 87.2 81.3 - 96.4 fL AL[facility]ERTO Comment:Testing performed by : [address] [address] MCH 29.1 27.1 - 33.3 pg ALBERTO Comment:Testing performed by : [address] [address] MCHC 33.4 32.3 - 35.7 g/dL ALBERTO DELUCA Comment:Testing performed by : [facility], [address] [place] [address]., [address] RDW CV 13.1 11.1 - 14.9 % ALBERTO DELUCA Comment:Testing performed by : [facility], [address] [place] [address]., [address] RDW SD 41.0 35.7 - 48.1 fL ALBERTO DELUCA Comment:Testing performed by : [facility], [address] [place] [address]., [address] NRBC abs 0.00 0.00 - 0.01 K/cumm ALBERTO DELUCA Comment:Testing performed by : [address] [address] Blood (Blood, Venous) 08/12/2022 5:20 PM CDT 08/12/2022 5:25 PM CDT Sharda Aguilar ONLINE MARKETER LAB BLOOD ORDERABLES Final Resul t AL[facility]ERTO [address] [facility] Department [place] [address] documented in this encounter Visit [...] RN) documented in this encounter Care Teams Book Mender Relationship Specialty Start Date End Date No, Physician PCP - General 08/06/22 documented as of this encounter
--- OUTSIDE RECORDS SUMMARY | 2024-03-15 18:51 | XMS_ITS | Encounter Summary ---
Author Organization [facility] Address [address] [place] [address] Care Team Providers Care Yard Warehouse Worker Name Role Phone No, Physician Primary Care Provider [phone] Reason for Visit * Reason Comments Fall Abdominal Pain Encounter Details Date Type Department Care Team (Late st Contact Info) Description 08/06/2022 5:05 PM CDT - 08/06/2022 7:21 PM CDT Emergency [facility] Emergency Department [address] [place] [address] Fall, initial encounter (Primary Dx); [...] Everywhere. * Abdominal Pain in (AfterCare(R) Instructions(ER/ED)) (Qatari) documented in this encounter Discharge Disposition Disposition [...] tendency for uric acid stone formation. Source: [place] [employer].Last revised 04-04-2017 HCG, BLOOD, QUANTITATIVE - Abnormal [...] Not identified Mean sacdiameter: None applicable cm Lovell-rump length: 4.62 cm heart rate: 168 bpm [...] Ellis Sherman M.D. JA: LANI Report ID: [id number] Reading Location: [id number] Procedures ED Course / Medical Decision Making [...] Reassuring ultrasound findings. I spoke with on-call [facility], Dr. Noble, who does not have [...] 08/06/22 2332 Time: 08/06 1849 Comment: Paged [facility] for recommendations By: Marianna Vang PA [...] 5 /HPF ALBERTO Comment:Testing performed by : [address] [address] RBC, ur 0-2 0 - 2 /HPF ALBERTO Comment:Testing performed by : [address] [address] Epithelial cells, squamous, ur 21-50(A) 0 - 5 /HPF ALBERTO Comment:Testing performed by : [address] [address] Bacteria, ur 4+(A) ALBERTO Comment:Testing performed by : [address] [address] Culture Reflex Comment Reflex conditions for urine culture (WBC >10) not met. ALBERTO Comment:Testing performed by : [address] [address] Urine 08/06/2022 5:46 PM CDT 08/06/2022 5:52 PM CDT us Trudi [facility] URINE ORDERABLES Final Resul t ALBERTO [address] [facility] Department [place] [address] * POCT hCG, urine (08/06/2022 5:46 PM CDT) HCG, ur, POC Positive Lot Number [id number] QC Backgroud Clear Acceptable QC Control Line Acceptable Urine 08/06/2022 5:46 PM CDT Trudi [facility] POINT OF CARE TEST ORDERABLES Fi nal Result * (ABNORMAL) Urinalysis reflex to microscopic and culture Urine (08/06/2022 5:46 PM CDT) Color, ur Straw Yellow ALBERTO Comment:Testing performed by : [address] [address] Clarity, ur Clear Clear ALBERTO Comment:Testing performed by : [address] [address] Specific gravity, ur 1.004 1.003 - 1.030 ALBERTO Comment:Testing performed by : [address] [address] pH, urine 7.0 ALBERTO Comment:Testing performed by : [address] [address] Protein, ur ql Negative Negative ABLERTO Comment:Testing performed by : [address] [address] Glucose, ur ql Negative Negative ALBERTO Comment:Testing performed by : [address] [address] Ketones, ur Negative Negative ALBERTO Comment:Testing performed by : [address] [address] Bilirubin, ur Negative Negative ALBERTO Comment:Testing performed by : [address] [address] Blood, ur Negative Negative ALBERTO Comment:Testing performed by : [address] [address] Urobilinogen, ur <2.0 <2.0 mg/dL ALBERTO Comment:Testing performed by : [address] [address] Nitrite, ur Negative Negative ALBERTO Comment:Testing performed by : [facility], [address] [place] [address]., [address] Leukocyte esterase, ur 1+(A) Negative ALBERTO Comment:Testing performed by : [facility], [address] [place] [address]., [address] UA reflex comment Reflex to microscopic UA will be performed. ALBERTO Comment:Testing performed by : [address] [address] Urine 08/06/2022 5:46 PM CDT 08/06/2022 5:52 [...] for uric acid stone formation. Source: [place] [employer]. Last revised 04-04-2017 us Tr[facility] MICROBIOLOGY - GENERAL ORDER LUTHER Final Result ALBERTO [address] [facility] Department [place] [address] * US Ob Under 14 [...] Mean sac diameter: ?? None applicable ??cm Lovell-rump length: ?? 4.62 ??cm heart rate: ?? [...] PM T: ??08/06/2022 3:57 PM Report ID: [id number] Reading Location: ??[id number] Procedure Note Ellis Sherman MD - 08/06/2022 [...] identified Mean sac diameter: None applicable cm Lovell-rump length: 4.62 cm heart rate: 168 bpm [...] Ellis Sherman M.D. JA: LANI Report ID: [id number] Reading Location: [place] [address] us Trudijoshua [facility] OB US PROCEDURES [...] was last reviewed 2021. Testing performed by: [address] [address] Blood 08/06/2022 2:54 PM CDT 08/06/2022 3:04 PM CDT us Trudi [facility] BLOOD ORDERABLES Final Resul t ALBERTO [facility] Department [place] [address] * (ABNORMAL) Differential, auto (08/06/2022 2:54 PM CDT) Neutrophil abs 7.2(H) 1.7 - 6.5 K/cumm ALBERTO Comment:Testing performed by : [address] [address] Imm gran abs 0.1 0.0 - 0.1 K/cumm ALBERTO Comment:Testing performed by : [address] [address] Lymphocyte abs 1.6 0.8 - 3.3 K/cumm ALBERTO Comment:Testing performed by : [address] [address] Monocyte abs 0.6 0.2 - 0.8 K/cumm ALBERTO Comment:Testing performed by : [address] [address] Eosinophil abs 0.1 0.0 - 0.5 K/cumm ALBERTO Comment:Testing performed by : [address] [address] Basophil abs 0.1 0.0 - 0.1 K/cumm ALBERTO Comment:Testing performed by : [address] [address] Neutrophil pct 75.6 % [facility] Comment: Interpretive Data Percent cell count reference ranges are not reported, since discordance with absolute values may lead to misinterpretation of CBC data. Current Interpretive Data was last revised on 2017. Testing performed by: [address] [address] Imm gran pct 0.6 % [facility] Comment: Interpretive Data Percent cell count reference ranges are not reported, since discordance with absolute values may lead to misinterpretation of CBC data. Current Interpretive Data was last revised on 2017. Testing performed by: [address] [address] Lymphocyte pct 16.4 % [facility] Comment: Interpretive Data Percent cell count reference ranges are not reported, since discordance with absolute values may lead to misinterpretation of CBC data. Current Interpretive Data was last revised on 2017. Testing performed by: [address] [address] Monocyte pct 6.0 % [facility] Comment: Interpretive Data Percent cell count reference ranges are not reported, since discordance with absolute values may lead to misinterpretation of CBC data. Current Interpretive Data was last revised on 2017. Testing performed by: [address] [address] Eosinophil pct 0.9 % [facility] Comment: Interpretive Data Percent cell count reference ranges are not reported, since discordance with absolute values may lead to misinterpretation of CBC data. Current Interpretive Data was last revised on 2017. Testing performed by: [address] [address] Basophil pct 0.5 % [facility] Comment: Interpretive Data Percent cell count reference ranges are not reported, since discordance with absolute values may lead to misinterpretation of CBC data. Current Interpretive Data was last revised on 2017. Testing performed by: [address] [address] Blood 08/06/2022 2:54 PM CDT 08/06/2022 3:04 PM CDT us [facility] BLOOD ORDERABLES Final Resul t Performing Organization Address City/[facility] Co de Phone Number ALBERTO [address] [address] * ABO/Rh (08/06/2022 2:54 PM CDT) ABO/Rh A Positive ALBERTO DELUCA Comment:Testing performed by : [address] [address] Blood 08/06/2022 2:54 PM CDT 08/06/2022 3:04 PM CDT [facility] BLOOD BANK TEST ORDERABLES F inal Result Performing Organization Address [facility] de Phone Number ALBERTO [facility] [place] [address] * CBC with auto differential (08/06/2022 2:54 PM CDT) WBC 9.6 3.8 - 9.9 K/cumm ALBERTO DELUCA Comment:Testing performed by : [address] [address] Hgb 12.2 11.9 - 15.5 g/dL ALBERTO DELUCA Comment:Testing performed by : [address] [address] Hct 37.3 35.6 - 45.5 % ALBERTO DELUCA Comment:Testing performed by : [address] [address] Plt 222 150 - 400 K/cumm ALBERTO DELUCA Comment:Testing performed by : [address] [address] MPV 11.1 9.1 - 12.3 fL ALBERTO DELUCA Comment:Testing performed by : [address] [address] RBC 4.23 3.90 - 5.20 M/cumm ALBERTO DELUCA Comment:Testing performed by : [address] [address] MCV 88.2 81.3 - 96.4 fL ALBERTO DELUCA Comment:Testing performed by : [address] [address] MCH 28.8 27.1 - 33.3 pg ALBERTO DELUCA Comment:Testing performed by : [address] [address] MCHC 32.7 32.3 - 35.7 g/dL ALBERTO DELUCA Comment:Testing performed by : [address] [address] RDW CV 13.0 11.1 - 14.9 % ALBERTO Comment:Testing performed by : [address] [address] RDW SD 42.2 35.7 - 48.1 fL ALBERTO DELUCA Comment:Testing performed by : [address] [address] NRBC abs 0.00 0.00 - 0.01 K/cumm ALBERTO DELUCA Comment:Testing performed by : [address] [address] Blood 08/06/2022 2:54 PM CDT 08/06/2022 3:04 PM CDT us Tr[facility] BLOOD ORDERABLES Final Resul t ALBERTO [address] [facility] Department [place] [address] * (ABNORMAL) Comprehensive metabolic panel (08/06/2022 2:54 PM CDT) Sodium 133(L) 135 - 145 mmol/L ALBERTO DELUCA Comment:Testing performed by : [address] [address] Potassium, pl 3.8 3.3 - 4.9 mmol/L ALBERTO DELUCA Comment:Testing performed by : [address] [address] Chloride 99 97 - 110 mmol/L ALBERTO DELUCA Comment:Testing performed by : [address] [place] [address] CO2 23 22 - 32 mmol/L ALBERTO Comment:Testing performed by : [address] [address] Anion gap 11 2 - 15 mmol/L ALBERTO Comment:Testing performed by : [address] [address] BUN 4(L) 8 - 25 mg/dL ALBERTO Comment:Testing performed by : [address] [address] Creatinine 0.40(L) 0.60 - 1.10 mg/dL ALBERTO Comment:Testing performed by : [address] [address] Glucose 83 70 - 199 mg/dL ALBERTO [...] was last revised 2022. Testing performed by: [address] [address] Calcium 9.5 8.5 - 10.3 mg/dL ALBERTO Comment:Testing performed by : [address] [address] Bilirubin, total 0.4 0.1 - 1.2 mg/dL ALBERTO Comment:Testing performed by : [address] [address] Protein, pl 7.0 6.5 - 8.5 g/dL ALBERTO Comment:Testing performed by : [address] [address] Albumin 4.2 3.5 - 5.0 g/dL ALBERTO Comment:Testing performed by : [address] [address] Alk phos 53 40 - 130 Units/L ALBERTO DELUCA Comment:Testing performed by : [address] [address] ALT 24 7 - 45 Units/L ALBERTO DELUCA Comment:Testing performed by : [address] [address] AST 16 10 - 45 Units/L ALBERTO Comment:Testing performed by : [address] [address] Blood 08/06/2022 2:54 PM CDT 08/06/2022 3:04 PM CDT us Trudi [facility] BLOOD ORDERABLES Final Resul t ALBERTO [address] [facility] Department [place] [address] * (ABNORMAL) hCG, blood, quantitative (08/06/2022 2:54 [...] to 18 ? 9,040- 58,179 IUnits/L The Meo hCG Beta Quant assay procedure was used. Results from different manufacturers or methods may not be comparable. Serial testing should be performed using the same method. Current Interpretive Data was last revised on 2021. Testing performed by: [address] [address] Blood 08/06/2022 2:54 PM CDT 08/06/2022 3:04 PM CDT us Trudi [facility] BLOOD ORDERABLES Final Resul t ALBERTO [address] [facility] Department of Laboratories [place], [place] [id number] documented in this encounter Visit Diagnoses Diagnosis [...] 1 documented in this encounter Care Teams Yard Warehouse Worker Relationship Specialty Start Date End Date No, Physician PCP - General 08/06/22 documented as of this encounter
--- OUTSIDE RECORDS SUMMARY | 2024-03-15 18:52 | XMS_ITS | Encounter Summary ---
Author Organization [facility] Address [address] [place] [address] Care Team Providers Care Alumni Relations Officer Name Role Phone No, Physician Primary Care Provider [phone] Reason for Referral * Diagnostic Imaging (Routine) - Closed Specialty Diagnoses / Procedures Referred By Contac t Referred To Contact Diagnoses Threatened Procedures US OB Under 14 Weeks W Endovaginal Kush Perez MD [address] [place] [address] [place] [address] Phone: tel: fax: [address] [phone] Referral ID Status Reason Start Date Expiration Date Visits Re quested Visits Authorized [id number] Closed 12/31/2020 01/30/2022 1 1 Reason for Visit * Diagnostic Imaging (Routine) - Closed Specialty Diagnoses / Procedures Referred By Contac t Referred To Contact Diagnoses Threatened Procedures US OB Under 14 Weeks W Endovaginal Kush Perez MD [address] [place] [address] [place] [address] Phone: tel: fax: [address] [phone] Referral ID Status Reason Start Date Expiration Date Visits Re quested Visits Authorized [id number] Closed 12/31/2020 01/30/2022 1 1 Encounter Details Date Type Department Care Team (Latest Contact Info) Description 01/02/2021 2:20 PM CDT - 01/02/2021 11:59 PM CDT Hospital Encounter [facility] Ultrasound [address] [place] [id number] Threatened Discharge Disposition: Discharge to home or [...] PM T: ??01/02/2021 4:33 PM Report ID: [id number] Reading Location: ??[id number] Procedure Note Alana Hernández [...] Alana Hernández M.D. TB: ALAN Report ID: [id number] [facility] Kush Perez MD IMG OB US PROCEDURES Estefany l Result documented in this encounter Visit Diagnoses Diagnosis Threatened documented in this encounter Care Teams Alumni Relations Officer Relationship Specialty Start Date End Date No, Physician PCP - General 12/31/20 05/21/22 documented as of this encounter
--- OUTSIDE RECORDS SUMMARY | 2024-03-15 18:52 | XMS_ITS | Encounter Summary ---
Author Organization [facility] Address [address] [place] [address] Care Team Providers Care Architectural Job Captain Name Role Phone Shana Easton MD Primary Care Provider [phone] Encounter Details Date Type Department Care Team (Late st Contact Info) Description 08/15/2020 10:25 PM CDT - 08/15/2020 11:26 PM CDT Emergency [facility] Emergency Department [address] [place] [address] Unknown, Notinfile Discharge Disposition: Left without being [...] filedocumented in this encounter Care Teams Architectural Job Captain Relationship Specialty Start Date End Date Shana Easton MD [address] [place] [place] [address] PCP - General 05/05/18 12/30/20 documented as of this encounter
--- OUTSIDE RECORDS SUMMARY | 2024-03-15 18:52 | XMS_ITS | Encounter Summary ---
Author Organization [facility] Healthcare Address [address] [place] [address] Care Team Providers Care Clinical Training Coordinator Name Role Phone La Nena Ferro NP Primary Care Provider [phone] Encounter Details Date Type Department Care Team (Late st Contact Info) Description 07/09/2022 Patient Self-Triage [facility] [place] [facility] [place] [address] Mychart, Generic Provider [address] [place], [place] [id number] Social History Tobacco Use Types Packs/Day Years [...] on filedocumented in this encounter Care Teams Clinical Training Coordinator Relationship Specialty Start Date End Date La Nena Ferro NP [address] [facility] [address] [place] [address] PCP - General Family Medicine 05/22/22 08/05/22 documented as of this encounter
--- OUTSIDE RECORDS SUMMARY | 2024-03-15 18:52 | XMS_ITS | Encounter Summary ---
Author Organization [facility] Healthcare Address [address] [place] [address] Care Team Providers Care Sap Functional Analyst Name Role Phone Shana Easton MD Primary Care Provider [phone] Encounter Details Date Type Department Care Team (Late st Contact Info) Description 03/14/2020 6:40 PM [employer] SERVICES MANAGER - 03/15/2020 1:52 AM [employer] SERVICES MANAGER Emergency [facility] Emergency Department [address] [place] [address] Unknown, Lucio Valerio MD [facility] [place] [address] Discharge Disposition: Discharge to home or [...] Comments Blood Pressure 105/63 03/14/2020 7:07 PM [employer] SERVICES MANAGER Pulse 68 03/14/2020 7:07 PM [employer]ION SERVICES MANAGER Temperature 36.7 ??C (98 ??F) 03/14/2020 7:07 PM [employer] SERVICES MANAGER Respiratory Rate - - Oxygen Saturation 99% 03/14/2020 7:07 PM [employer] SERVICES MANAGER Inhaled Oxygen Concentration - - Weight 45.3 kg (99 lb 13.9 oz) 03/14/2020 7:07 P M [employer] SERVICES MANAGER Height 160 cm (5' 3 ) 03/14/2020 7:07 PM [employer] SERVICES MANAGER Body Mass Index 17.69 03/14/2020 7:07 PM [employer] SERVICES MANAGER documented in this encounter Discharge Disposition Disposition Code Departure Means Destination Discharge to home or self care documented in this encounter Plan of Treatment Not on file documented as of this encounter Procedures Procedure Name Priority Date/Time Associated Diagnosis Comments SCAN - LABS 03/15/2020 12:00 AM [employer] SERVICES MANAGER URINALYSIS AND REFLEX TO MICROSCOPIC AND CULTURE Routine 03/14/2020 8:08 PM [employer] SERVICES MANAGER HEMOGRAM WITH MANUAL DIFFERENTIAL Routine 03/14/2020 7:34 PM [employer] SERVICES MANAGER COMPREHENSIVE METABOLIC PANEL Routine 03/14/2020 7:33 PM [employer] MANAGER CT ABDOMEN PELVIS W CONTRAST 03/14/2020 7:07 PM CATERING CON[employer]ION SERVICES MANAGER documented in this encounter Results * SCAN - LABS (03/15/2020 12:00 AM CAT[employer] SERVICES MANAGER) Narrative 03/15/2020 12:00 AM [employer] SERVICES MANAGER Ordered by an unspecified provider. us Historical Provider MD Final Res ult * (ABNORMAL) Urinalysis reflex to microscopic and culture (03/14/2020 8:08 PM CATERING [employer]ION SERVICES MANAGER) Ur Collection Type CLEAN CATCH [facility] Ur Culture Indicated? C S NOT INDICATED [facility] Urine Color YELLOW YELLOW [facility] Urine Clarity CLEAR [facility] Urine Glucose (UA) NORMAL NORMAL mg/dL [facility] Urine Bilirubin NEGATIVE NEGATIVE mg/dl [facility] Urine Ketones NEGATIVE NEGATIVE mg/dL [facility] Ur Specific [place] 1.018 1.005 - 1.025 [facility] Urine Blood 0.03(A) NEGATIVE mg/dl [facility] Urine pH 6.0 5.0 - 8.0 [facility] Urine Protein NEGATIVE NEGATIVE mg/dL [facility] Urine Urobilinogen NORMAL NORMAL mg/dL [facility] Urine Nitrite NEGATIVE NEGATIVE [facility] Ur Leukocyte Esterase NEGATIVE NEGATIVE Sammie/ul [facility] Ur Microscopic Review Not Indicated [facility] Urine RBC 6-10 0 - 2 /HPF [facility] Urine WBC 0-5 0 - 2 /HPF [facility] Urine Bacteria Trace /HPF [facility] Urine Mucus Present /LPF [facility] Ur Squamous Epith Cells 21-50 /LPF [facility] 03/14/2020 8:08 PM [employer] SERVICES MANAGER 03/14/2020 8:41 PM [employer] SERVICES MANAGER Narrative [facility] - 03/14/2020 8:51 PM [employer] SERVICES MANAGER Indication(s) for ordering ?? Pain-pelv/flank/suprapubc dg Clean catch Resulting Agency Comment ER [facility] MICROBIOLOGY - GENERA L ORDERABLES Final Result [facility] [address] [place] [address], [facility] [phone] * Hemogram with manual differential (03/14/2020 7:34 PM CAT[employer]ING [employer]ION SERVICES MANAGER) WBC 7.7 3.8 - 9.9 X10 3/ul [facility] RBC 4.63 3.90 - 5.20 x10 6/ul [facility] Hemoglobin 13.4 11.9 - 15.5 g/dL [facility] Hct 41.4 35.6 - 45.5 % [facility] MCV 89.4 81.3 - 96.4 fl [facility] MCH 28.9 27.1 - 33.3 pg [facility] MCHC 32.4 32.3 - 35.7 g/dl [facility] RDW 12.2 11.1 - 14.9 % [facility] Plt Count 236 150 - 400 x10 3/ul [facility] MPV 10.8 9.1 - 12.3 fl [facility] MANUAL DIFF MANUAL DIFF - [facility] Neutrophils % (Manual) 68 % [facility] Lymphocytes % (Manual) 23 % [facility] Atypical Lymphs % 1 0 - 6 % [facility] Monocytes % (Manual) 5 % [facility] Eosinophils % (Manual) 3 % [facility] ABSOLUTE COUNTS ABSOLUTE COUNTS - [facility] Abs Neuts cells/mm3 5,236 /ul [facility] Absolute Neutrophils 5.2 1.7 - 6.5 x10 3/ul [facility] Absolute Lymphocytes 1.8 0.8 - 3.3 x10 3/ul [facility] ATYPICAL LYMPH ABS# 0.1 0 - 0.3 x10 3/ul [facility] Absolute Monocytes 0.4 0.2 - 0.8 x10 3/ul [facility] Absolute Eosinophils 0.2 0.0 - 0.5 x10 3/ul [facility] Smudge Cells # 3 /100 WBC [facility] Platelet Evaluation AGREE AGREE [facility] Comment: Slide review of platelets correlates with instrument count. RBC Morphology NORMAL NORMAL [facility] 03/14/2020 7:34 PM [employer] SERVICES MANAGER 03/14/2020 7:41 PM CAT[employer]ING [employer] SERVICES MANAGER Narrative Resulting Agency Comment ER us [facility] BLOOD ORDERABLES Estefany l Result [address] [phone] * (ABNORMAL) Comprehensive metabolic panel (03/14/2020 7:33 PM CAT[employer]ING [employer]ION SERVICES MANAGER) Sodium 141 135 - 145 mmol/L [facility] Potassium 3.7 3.3 - 5.1 mmol/L [facility] Chloride 104 96 - 108 mmol/L [facility] Carbon Dioxide 30 22 - 32 mmol/L [facility] Anion Gap 7 7 - 16 [facility] Glucose 105(H) 70 - 100 mg/dL [facility] BUN 8 8 - 25 mg/dL [facility] Creatinine 0.5 0.5 - 1.1 mg/dL [facility] Comment: NOTE: Estimated GFR (Cockroft-Gault) will NOT be calculated unless patient Height and Weight were entered. Also, Kidney Disease Stage (GFR) and Estimated GFR (Cockroft-Gault) will NOT be calculated if Creatinine result is <0.2. Kidney Disease Stage >90 mL/MIN [facility] Comment: NOTE; ??The GFR is an estimated [...] on dialysis Est GFR (Cockcroft-G) 127 ml/MIN [facility] Comment: Estimated GFR(Cockroft-Gault)is used to calculate patient medication dosage Calcium 9.7 8.6 - 10.3 mg/dL [facility] Total Protein 7.3 6.4 - 8.3 g/dL [facility] Albumin 4.8 3.5 - 5.0 g/dL [facility] Globulin 2.5 2.3 - 3.5 gm/dL [facility] Albumin/Globulin Ratio 1.9(H) 1.1 - 1.8 [facility] Total Bilirubin 0.2 0.0 - 1.2 mg/dL [facility] AST 14 0 - 32 U/L [facility] ALT 15 0 - 33 U/L [facility] Alkaline Phosphatase 70 35 - 104 U/L [facility] 03/14/2020 7:33 PM [employer]ING [employer]ION SERVICES MANAGER 03/14/2020 7:41 PM [employer]ING [employer]ION SERVICES MANAGER Narrative Resulting Agency Comment ER us [facility] BLOOD ORDERABLES [place] [address], [facility] [phone] * CT Abdomen Pelvis W Contrast (03/14/2020 7:07 PM CAT[employer]ING [employer]ION SERVICES MANAGER) Anatomical Region Laterality Modality Body N/A Computed Tomogra phy 03/14/2020 10:5 9 PM [employer]ING [employer]ION SERVICES MANAGER Narrative 03/14/2020 11:07 PM CATERING CON[employer]ION SERVICES MANAGER Patient Name: DIOGENES MONET ?Ordering Dr: Poornima Del Castillo-C ?? D.O.B: 2000 ? Exam Date: 03/14/20 ?? 1909 ?? Age: 19 ?Sex: Female ? MR#: [id number] ?? Loc: ? RADIOLOGY REPORT ?? Order #[id number] ?? CT Scan ? CT Abd/Pelvis W [...] T: ??03/14/2020 11:07 PM ? Report ID: [id number] ?? Reading Location: ??[id number] ? REPORT ELECTRONICALLY SIGNED IN OTHER VENDOR SYSTEM ?? Resulting Agency Comment E Procedure Note Hair Koroma MD - 03/14/2020 Patient Name: CHIKIDIOGENESJuan Mix Dr: Poornima Del Castillo PA-C, D.O.B: 2000 Exam Date: 03/14/201906 Age: 19 Sex: Female MR#: [id number] Loc: RADIOLOGY REPORT Order #[id number] CT Scan CT Abd/Pelvis W IV Contrast [...] Hair Koroma M.D. RT: RT Report ID: [id number] Reading Location: [place] [address] REPORT ELECTRONICALLY SIGNED IN OTHER VENDOR SYSTEM [facility] PROCEDURES Final R esult documented in this encounter Visit Diagnoses Not on filedocumented in this encounter Care Teams Sap Functional Analyst Relationship Specialty Start Date End Date Shana Easton MD [address] [address] PCP - General 05/05/18 12/30/20 documented as of this encounter
--- OUTSIDE RECORDS SUMMARY | 2024-03-15 18:52 | XMS_ITS | Encounter Summary ---
Author Organization [facility] Healthcare Address [address] [place] [address] Care Team Providers Care Sand Temperer Name Role Phone La Nena Ferro OZIEL Primary Care Provider [phone] Reason for Visit * Reason Comments Numbness Headache Encounter Details Date Type Department Care Team (Late st Contact Info) Description 06/20/2022 12:10 PM CDT - 06/20/2022 4:18 PM CDT Emergency [facility] Emergency Department [address] [place], [place] [address] Kush Perez MD [address] [place] [address] [place] [address] Paresthesias (Primary Dx) Discharge Disposition: Discharge to [...] through Care Everywhere. * Paresthesia (AfterCare(R) Instructions(ER/ED)) (Mongolian) documented in this encounter Discharge Disposition Disposition [...] to left upper and lower extremity. Procedures [facility] Labs Reviewed URINALYSIS AND REFLEX [...] tendency for uric acid stone formation. Source: [facility] [employer].Last revised 04-04-2017 COMPREHENSIVE METABOLIC PANEL - Abnormal [...] (Exact Date) SpO2 100% BMI 20.23 kg/m?? [facility] Medical records reviewed. Vitals on arrival show no acute process. Labs are unremarkable. Patient's beta hCG is positive and she is . Discussed plan of care with Dr. Mora. We will obtain an EEG in the ED. Unable to obtain EEG in the ED as the tech is not here. Plan of care discussed with neurology regasification plant operator. Pt already has an appointment [...] last revised on 2021. Testing performed by: [facility], [address] [place] [address]., [address] Blood 06/22/2022 9:49 AM CDT 06/22/2022 10:38 AM CDT us Kush Perez MD LAB BLOOD ORDERABLES Edit ed Result - Final ALBERTO [address] [facility] Department [place] [address] * POCT hCG, urine (06/20/2022 12:08 PM CDT) HCG, ur, POC Positive Lot Number [id number] QC Backgroud Clear Acceptable QC Control Line Acceptable Urine 06/20/2022 12:0 8 PM CDT us Trudi [facility] POINT OF CARE TEST ORDERABLES Fi nal Result * (ABNORMAL) hCG, blood, quantitative (06/20/2022 11:44 AM CDT) hCG, quant 308.8(H) 0.0 - 5.0 IUnits/L ALBERTO Comment: Interpretive [...] last revised on 2021. Testing performed by: [facility], [address] [place] [address]., [address] Blood 06/20/2022 11:4 4 AM CDT 06/20/2022 12:24 PM CDT us Kush Perez MD LAB BLOOD ORDERABLES Estefany lindsey Result [facility] [address] [facility] Department [place] [address] * eGFR (06/20/2022 11:44 AM CDT) [facility] eGFR 135 mL/min/1. 73 m2 ALBERTO Comment: [...] last reviewed 2021. Testing performed by: [facility] [address] [place] [address]., [address] Blood 06/20/2022 11:4 4 AM CDT 06/20/2022 12:24 PM CDT us Trudi [facility] LAB BLOOD ORDERABLES Final Resul t ALBERTO [address] [facility] Department [place] [address] * (ABNORMAL) Urinalysis, microscopic only (06/20/2022 11:44 AM CDT) WBC, ur 0-5 0 - 5 /HPF ALBERTO Comment:Testing performed by : [address] [address] RBC, ur 0-2 0 - 2 /HPF ALBERTO Comment:Testing performed by : [address] [address] Epithelial cells, squamous, ur >50(A) 0 - 5 /HPF ALBERTO Comment:Testing performed by : [address] [address] Bacteria, ur 1+(A) ALBERTO Comment:Testing performed by : [address] [address] Culture Reflex Comment Reflex conditions for urine culture (WBC >10) not met. ALBERTO Comment:Testing performed by : [address] [address] Urine 06/20/2022 11:4 4 AM CDT 06/20/2022 12:24 PM CDT us Trudi [facility] LAB URINE ORDERABLES Final Resul t ALBERTO [address] [facility] [place] [address] * Differential, auto (06/20/2022 11:44 AM CDT) Neutrophil abs 5.6 1.7 - 6.5 K/cumm ALBERTO Comment:Testing performed by : [address] [address] Imm gran abs 0.0 0.0 - 0.1 K/cumm ALBERTO Comment:Testing performed by : [address] [address] Lymphocyte abs 1.6 0.8 - 3.3 K/cumm ALBERTO Comment:Testing performed by : [address] [address] Monocyte abs 0.6 0.2 - 0.8 K/cumm ALBERTO Comment:Testing performed by : [address] [address] Eosinophil abs 0.1 0.0 - 0.5 K/cumm ALBERTO Comment:Testing performed by : [address] [address] Basophil abs 0.0 0.0 - 0.1 K/cumm ALBERTO Comment:Testing performed by : [address] [address] Neutrophil pct 70.5 % ALBERTO Comment: Interpretive Data Percent cell count reference ranges are not reported, since discordance with absolute values may lead to misinterpretation of CBC data. Current Interpretive Data was last revised on 2017. Testing performed by: [address] [address] Imm gran pct 0.5 % [facility] Comment: Interpretive Data Percent cell count reference ranges are not reported, since discordance with absolute values may lead to misinterpretation of CBC data. Current Interpretive Data was last revised on 2017. Testing performed by: [address] [address] Lymphocyte pct 19.8 % [facility] Comment: Interpretive Data Percent cell count reference ranges are not reported, since discordance with absolute values may lead to misinterpretation of CBC data. Current Interpretive Data was last revised on 2017. Testing performed by: [address] [address] Monocyte pct 7.9 % [facility] Comment: Interpretive Data Percent cell count reference ranges are not reported, since discordance with absolute values may lead to misinterpretation of CBC data. Current Interpretive Data was last revised on 2017. Testing performed by: [address] [address] Eosinophil pct 0.9 % [facility] Comment: Interpretive Data Percent cell count reference ranges are not reported, since discordance with absolute values may lead to misinterpretation of CBC data. Current Interpretive Data was last revised on 2017. Testing performed by: [address] [address] Basophil pct 0.4 % [facility] Comment: Interpretive Data Percent cell count reference ranges are not reported, since discordance with absolute values may lead to misinterpretation of CBC data. Current Interpretive Data was last revised on 2017. Testing performed by: [address] [address] Blood 06/20/2022 11:4 4 AM CDT 06/20/2022 12:16 PM CDT us Trudi [facility] LAB BLOOD ORDERABLES Final Resul t ALBERTO DELUCA [address] [facility] Department of Laboratories [place], [place] [id number] * Phosphorus (06/20/2022 11:44 AM CDT) Pathologist [facility] Phosphorus, pl 3.1 2.3 - 4.5 mg/dL ALBERTO Comment:Testing performed by : [address] [address] Blood 06/20/2022 11:4 4 AM CDT 06/20/2022 12:16 PM CDT us Trudi Adriel PA LAB BLOOD ORDERABLES Final Resul t Performing Organization Address City/[facility] Co de Phone Number [address] [address] * Magnesium (06/20/2022 11:44 AM CDT) [facility] Magnesium 2.1 1.4 - 2.5 mg/dL ALBERTO Comment:Testing performed by : [address] [address] Blood 06/20/2022 11:4 4 AM CDT 06/20/2022 12:16 PM CDT us Trudi Adriel PA LAB BLOOD ORDERABLES Final Resul t Performing Organization Address [facility] Co de Phone Number [address] [place] [address] * Sepsis Lactate w/ Reflex (06/20/2022 11:44 AM CDT) [facility] Sepsis Lactate 1.5 0.7 - 2.0 mmol/L [facility] Comment:Testing performed by : [address] [address] Blood 06/20/2022 11:4 4 AM CDT 06/20/2022 12:16 PM CDT us Trudi Adriel PA LAB BLOOD ORDERABLES Final Resul t Performing Organization Address [facility] Co de Phone Number [address] [place] [address] * (ABNORMAL) Urinalysis reflex to microscopic and culture Urine (06/20/2022 11:44 AM CDT) Color, ur Yellow Yellow ALBERTO Comment:Testing performed by : [facility], [address] [place] [address], [place]., [address] Clarity, ur Clear Clear ALBERTO Comment:Testing performed by : [address], [place]., [address] Specific gravity, ur 1.008 1.003 - 1.030 ALBERTO Comment:Testing performed by : [address], [place]., [address] pH, urine 7.0 ALBERTO Comment:Testing performed by : [address], [place]., [address] Protein, ur ql Negative Negative ALBERTO Comment:Testing performed by : [address], [place]., [address] Glucose, ur ql Negative Negative ALBERTO Comment:Testing performed by : [address], [place]., [address] Ketones, ur Negative Negative ALBERTO Comment:Testing performed by : [address], [place]., [address] Bilirubin, ur Negative Negative ALBERTO Comment:Testing performed by : [address], [place]., [address] Blood, ur 1+(A) Negative ALBERTO Comment:Testing performed by : [address] [address] Urobilinogen, ur <2.0 <2.0 mg/dL ALBERTO Comment:Testing performed by : [address] [address] Nitrite, ur Negative Negative ALBERTO Comment:Testing performed by : [address] [address] Leukocyte esterase, ur 1+(A) Negative ALBERTO Comment:Testing performed by : [address], [place]., [address] UA reflex comment Reflex to microscopic UA will be performed. ALBERTO Comment:Testing performed by : [address] [address] Urine 06/20/2022 11:4 4 AM CDT 06/20/2022 [...] tendency for uric acid stone formation. Source: [facility] [employer]. Last revised 04-04-2017 us Trudi [facility] MICROBIOLOGY - GENERAL ORDER LUTHER Final Result ALBERTO [address] [facility] Department [place] [address] * Drugs of Abuse Screen, Urine without Confirmation (06/20/2022 11:44 AM CDT) [facility] Amphetamine, ur Not Detected CutOff 500ng/mL ALBERTO Comment: Interpretive Data - Amphetamines: ??Samples containing greater than 500 ng/mL d-methamphetamine ??or other cross-reacting amphetamine compounds are reported as positive. ??Amphetamine immunoassays are subject to significant false positive rates due to cross-reactivity of non-amphetamine drugs. Current Interpretive Data was last reviewed 2018. Testing performed by: [address] [address] Barbiturates, ur Not Detected CutOff 200ng/mL ALBERTO Comment: Interpretive Data - Barbiturates: ??Samples containing greater than 200 ng/mL secobarbital or other cross-reacting barbiturate compounds are reported as positive. ??False positive and false negative results are possible. Current Interpretive Data was last reviewed 2018. Testing performed by: [address] [address] Benzodiazepines, ur Not Detected CutOff 100ng/mL ALBERTO Comment: Interpretive Data - Benzodiazepines: ??Samples containing greater than 100 ng/mL nordiazepam or other cross-reacting compounds are reported as positive. ?? False positive and false negative results are possible. ?? Current Interpretive Data was last reviewed 2018. Testing performed by: [address] [address] Cannabinoids, ur Not Detected CutOff 50 ng/mL [facility] Comment: Interpretive Data - Cannabinoids: ??Samples containing greater than 50 ng/mL delta-9 THC -COOH or other cross-reacting compounds are reported as positive. ??False positive and false negative results are possible. ?? Current Interpretive Data was last reviewed 2018. Testing performed by: [address] [address] Cocaine, ur Not Detected CutOff 150ng/mL [facility] Comment: Interpretive Data - Cocaine: ??Samples containing greater than 150 ng/mL benzoylecgonine or other cross-reacting compounds are reported as positive. False positive and false negative results are possible. Current Interpretive Data was last reviewed 2018. Testing performed by: [address] [address] Fentanyl, Ur Not Detected Cutoff 1 ng/mL [facility] Comment: Interpretive Data - Fentanyls: ??Samples containing greater than 1 ng/mL fentanyl or other cross-reacting fentanyl compounds are reported as detected. ??False positive and false negative results are possible. Current Interpretive Data was last reviewed 2018. Testing performed by: [address] [address] Methadone, ur Not Detected CutOff 300ng/mL [facility] Comment: Interpretive Data - Methadone: ??Samples containing greater than 300 ng/mL d,l-methadone or other cross-reacting compounds are reported as positive. ??False positive and false negative results are possible. Current Interpretive Data was last reviewed 2018. Testing performed by: [address] [address] Opiates, ur Not Detected CutOff 300ng/mL [facility] Comment: Interpretive Data - Opiates: ??Samples containing greater than 300 ng/mL morphine or other cross-reacting compounds are reported as positive. ??False positive and false negative results are possible. Current Interpretive Data was last reviewed 2018. Testing performed by: [address] [address] Oxycodone, ur Not Detected CutOff 100ng/mL ALBERTO DELUCA Comment: Interpretive Data - Oxycodone: ??Samples containing greater than 100 ng/mL oxycodone or other cross-reacting compounds are reported as positive. ??False positive and false negative results are possible. ?? Current Interpretive Data was last reviewed 2018. Testing performed by: [address] [address] Phencyclidine, ur Not Detected CutOff 25 ng/mL ALBERTO Comment: Interpretive Data - Phencyclidine: ??Samples containing greater than 25 ng/mL phencyclidine or other cross-reacting compounds are reported as positive. ??False positive and false negative results are possible. ?? Current Interpretive Data was last reviewed 2018. Testing performed by: [address] [address] Urine Creatinine 64 mg/dL ALBERTO Comment: Interpretive Data Urine Creatinine: < 10 mg/dL is extremely dilute = or > 10 but < 20 mg/dL is dilute = or > 20 mg/dL is normal Current Interpretive Data was last revised on 2017. Testing performed by: [address] [address] Urine 06/20/2022 11:4 4 AM CDT 06/20/2022 12:24 PM CDT Narrative ALBERTO - 06/20/2022 1:35 PM CDT Drug of Abuse screening is performed by immunoassay for medical purposes only. ??This is not to be used for Pain Management purposes. us Trudi [facility] URINE ORDERABLES Final Resul t ALBERTO [address] [facility] Department [place] [address] * (ABNORMAL) Comprehensive metabolic panel (06/20/2022 11:44 AM CDT) [facility] Sodium 141 135 - 145 mmol/L ALBERTO DELUCA Comment:Testing performed by : [address] [address] Potassium, pl 3.9 3.3 - 4.9 mmol/L [facility] Comment:Testing performed by : [address] [address] Chloride 104 97 - 110 mmol/L [facility] Comment:Testing performed by : [address], [place]., [address] CO2 24 22 - 32 mmol/L [facility] Comment:Testing performed by : [address] [address] Anion gap 13 2 - 15 mmol/L [facility] Comment:Testing performed by : [address] [address] BUN 5(L) 8 - 25 mg/dL [facility] Comment:Testing performed by : [address], [place]., [address] Creatinine 0.50(L) 0.60 - 1.10 mg/dL [facility] Comment:Testing performed by : [address] [address] Glucose 102 70 - 199 mg/dL [facility] Comment: Interpretive Data Fasting glucose >/= [...] was last revised 2022. Testing performed by: [address] [address] Calcium 9.5 8.5 - 10.3 mg/dL [facility] Comment:Testing performed by : [address] [address] Bilirubin, total 0.4 0.1 - 1.2 mg/dL [facility] Comment:Testing performed by : [address] [address] Protein, pl 7.5 6.5 - 8.5 g/dL ALBERTO DELUCA Comment:Testing performed by : [address] [address] Albumin 4.4 3.5 - 5.0 g/dL ALBERTO DELUCA Comment:Testing performed by : [address] [address] Alk phos 79 40 - 130 Units/L ALBERTO DELUCA Comment:Testing performed by : [address] [address] ALT 25 7 - 45 Units/L ALBERTO DELUCA Comment:Testing performed by : [address] [address] AST 15 10 - 45 Units/L ALBERTO DELUCA Comment:Testing performed by : [address] [address] Blood 06/20/2022 11:4 4 AM CDT 06/20/2022 12:16 PM CDT us Trudi [facility] LAB BLOOD ORDERABLES Final Resul t ALBERTO [facility] Department of Laboratories [place], [place] [id number] * CBC with auto differential (06/20/2022 11:44 AM CDT) [facility] WBC 7.9 3.8 - 9.9 K/cumm ALBERTO DELUCA Comment:Testing performed by : [address] [address] Hgb 12.7 11.9 - 15.5 g/dL ALBERTO DELUCA Comment:Testing performed by : [address] [address] Hct 38.8 35.6 - 45.5 % ALBERTO DELUCA Comment:Testing performed by : [address] [address] Plt 235 150 - 400 K/cumm ALBERTO DELUCA Comment:Testing performed by : [address] [address] MPV 10.6 9.1 - 12.3 fL ALBERTO DELUCA Comment:Testing performed by : [facility], [address] [place] [address]., [address] RBC 4.40 3.90 - 5.20 M/cumm ALBERTO DELUCA Comment:Testing performed by : [address] [address] MCV 88.2 81.3 - 96.4 fL ALBERTO Comment:Testing performed by : [address] [address] MCH 28.9 27.1 - 33.3 pg ALBERTO DELUCA Comment:Testing performed by : [address] [address] MCHC 32.7 32.3 - 35.7 g/dL ALBERTO DELUCA Comment:Testing performed by : [address] [address] RDW CV 12.3 11.1 - 14.9 % ALBERTO Comment:Testing performed by : [address] [address] RDW SD 40.0 35.7 - 48.1 fL ALBERTO Comment:Testing performed by : [address] [address] NRBC abs 0.00 0.00 - 0.01 K/cumm ALBERTO Comment:Testing performed by : [address] [address] Blood 06/20/2022 11:4 4 AM CDT 06/20/2022 12:16 PM CDT us Trudi [facility] LAB BLOOD ORDERABLES Final Resul t [facility] [address] [facility] Department [place] [address] documented in this encounter Visit [...] RN) documented in this encounter Care Teams Sand Temperer Relationship Specialty Start Date End Date La Nena Ferro NP [address] [facility] REM[address]ERT[address] [place] [address] PCP - General Family Medicine 05/22/22 08/05/22 documented as of this encounter
--- OUTSIDE RECORDS SUMMARY | 2024-03-15 18:52 | XMS_ITS | Encounter Summary ---
Author Organization [facility] Address [address] [place] [address] Care Team Providers Care Child Care Associate Name Role Phone Nicky Ferroy OZIEL Primary Care Provider [phone] Encounter Details Date Type Department Care Team (Late st Contact Info) Description 07/09/2022 E-Visit [facility] Virtual Care [address] [place] [address] Nadiya Valente, OZIEL [address] [place] [address] E-Visit for COVID-19 Evaluation Social [...] prescribed, if applicable, as well as any [id number] remedies. She was given instructions regarding follow up and timeframe if symptoms worsen or don???t improve. These instructions were included in the [employer] message reply tothe patient. Patient Instructions were included in the message reply to patient. My total encounter time on 07/09/2022 was 5 minutes which was spent in the activities documented inthe note. Nadiya Valente NP documented in this encounter Plan of Treatment Not on file documented as of this encounter Visit Diagnoses Not on filedocumented in this encounter Care Teams Child Care Associate Relationship Specialty Start Date End Date La Nena Ferro NP [address] [facility] [address] [place] [address] PCP - General Family Medicine 05/22/22 08/05/22 documented as of this encounter
--- OUTSIDE RECORDS SUMMARY | 2024-03-15 18:52 | XMS_ITS | Encounter Summary ---
Author Organization [facility] Healthcare Address [address] [place] [address] Care Team Providers Care Passenger Service Agent Name Role Phone No, Physician Primary Care Provider [phone] Encounter Details Date Type Department Care Team (Late st Contact Info) Description 01/02/2021 2:20 PM CDT Lab [facility] [address] [place] [id number] Social History Tobacco Use Types Packs/Day Years [...] last revised on 2017. Testing performed by: [facility], [address] [place] [address]., [address] Blood 01/02/2021 2:27 PM CDT 01/02/2021 3:01 PM CDT us Kush Perez MD LAB BLOOD ORDERABLES Edit ed Result - Final Performing Organization Address City/State/[facility] Co de Phone Number ALBERTO [address] [facility] Department [place] [address] documented in this encounter Visit Diagnoses Not on filedocumented in this encounter Care Teams Passenger Service Agent Relationship Specialty Start Date End Date No, Physician PCP - General 12/31/20 05/21/22 documented as of this encounter
--- OUTSIDE RECORDS SUMMARY | 2024-03-15 18:52 | XMS_ITS | Encounter Summary ---
Author Organization [facility] Healthcare Address [address] [place] [address] Care Team Providers Care Beverage Specialist Name Role Phone Shana Easton MD Primary Care Provider [phone] Encounter Details Date Type Department Care Team (Late st Contact Info) Description 02/10/2020 9:51 PM MACHINE II ENGRAVER - 02/11/2020 1:00 AM [facility] Emergency [facility] Emergency Department [address] [place] [address] Keri Buckley DO [address] [place] [address] Unknown, Notinfile Discharge Disposition: Discharge to home [...] Comments Blood Pressure 101/56 02/10/2020 10:05 PM MACHINE II ENGRAVER Pulse 58 02/10/2020 10:05 PM MACHINE II ENGRAVER Temperature 36.6 ??C (97.9 ??F) 02/10/2020 10:[address] Respiratory Rate - - Oxygen Saturation 98% 02/10/2020 10:05 PM MACHINE II ENGRAVER Inhaled Oxygen Concentration - - Weight 47.7 kg (105 lb 2.6 oz) 02/10/2020 10:05 PM MACHINE II ENGRAVER Height 160 cm (5' 3 ) 02/10/2020 10:05 PM MACHINE II ENGRAVER Body Mass Index 18.63 02/10/2020 10:05 PM MACHINE II ENGRAVER documented in this encounter Discharge Disposition Disposition Code Departure Means Destination Discharge to home or self care documented in this encounter Plan of Treatment Not on file documented as of this encounter Procedures Procedure Name Priority Date/Time Associated Diagnosis Comments SCAN - LABS 02/11/2020 12:00 AM MACHINE II ENGRAVER URINALYSIS, COMPLETE W/REFLEX TO CULTURE Routine 02/10/2020 10:19 PM MACHINE II ENGRAVER URINALYSIS AND REFLEX TO MICROSCOPIC AND CULTURE Routine 02/10/2020 10:19 PM MACHINE II ENGRAVER documented in this encounter Results * SCAN - LABS (02/11/2020 12:00 AM MACHINE II ENGRAVER) Narrative 02/11/2020 12:00 AM MACHINE II ENGRAVER Ordered by an unspecified provider. us Historical Provider Final Res ult * (ABNORMAL) URINALYSIS, COMPLETE W/REFLEX TO CULTURE (02/10/2020 10:19 PM MACHINE II ENGRAVER) Ur Collection Type CLEAN CATCH [facility] Ur Culture Indicated? C S NOT INDICATED [facility] Urine Color STRAW YELLOW [facility] Urine Clarity CLEAR CLEAR [facility] Urine Glucose (UA) NORMAL NORMAL mg/dL [facility] Urine Bilirubin NEGATIVE NEGATIVE mg/dl [facility] Urine Ketones NEGATIVE NEGATIVE mg/dL [facility] Ur Specific [place] 1.004(L) 1.005 - 1.025 [facility] Urine Blood 0.03(A) NEGATIVE mg/dl [facility] Urine pH 5.0 5.0 - 8.0 [facility] Urine Protein NEGATIVE NEGATIVE mg/dL [facility] Urine Urobilinogen NORMAL NORMAL mg/dL [facility] Urine Nitrite NEGATIVE NEGATIVE [facility] Ur Leukocyte Esterase 25(A) NEGATIVE Sammie/ul [facility] Ur Microscopic Review Indicated or Ordered [facility] Urine RBC 0-2 0 - 2 /HPF [facility] Urine WBC 0-5 0 - 2 /HPF [facility] Urine Bacteria 1+ /HPF [facility] Ur Squamous Epith Cells >50 /LPF [facility] 02/10/2020 10:1 9 PM MACHINE II ENGRAVER 02/10/2020 10:55 PM MACHINE II ENGRAVER Narrative [facility] - 02/10/2020 11:23 PM MACHINE II ENGRAVER Indication(s) for ordering ?? Dysuria ML Clean catch Resulting Agency Comment ER Keri Buckley DO LAB URINE ORDERABLES Final Resu lt [address] [phone] * (ABNORMAL) Urinalysis reflex to microscopic and culture (02/10/2020 10:19 PM MACHINE II ENGRAVER) Ur Collection Type CLEAN CATCH [facility] Ur Culture Indicated? C S NOT INDICATED [facility] Urine Color STRAW YELLOW [facility] Urine Clarity [facility] Urine Glucose (UA) NORMAL NORMAL mg/dL [facility] Urine Bilirubin NEGATIVE NEGATIVE mg/dl [facility] Urine Ketones NEGATIVE NEGATIVE mg/dL [facility] Ur Specific [place] 1.004(L) 1.005 - 1.025 [facility] Urine Blood 0.03(A) NEGATIVE mg/dl [facility] Urine pH 5.0 5.0 - 8.0 [facility] Urine Protein NEGATIVE NEGATIVE mg/dL [facility] Urine Urobilinogen NORMAL NORMAL mg/dL [facility] Urine Nitrite NEGATIVE NEGATIVE [facility] Ur Leukocyte Esterase 25(A) NEGATIVE Sammie/ul [facility] Ur Microscopic Review Indicated or Ordered [facility] Urine RBC 0-2 0 - 2 /HPF [facility] Urine WBC 0-5 0 - 2 /HPF [facility] Urine Bacteria 1+ /HPF [facility] Ur Squamous Epith Cells >50 /LPF [facility] 02/10/2020 10:1 9 PM MACHINE II ENGRAVER 02/10/2020 10:55 PM MACHINE II ENGRAVER Narrative [facility] - 02/10/2020 11:22 PM MACHINE II ENGRAVER Indication(s) for ordering ?? Dysuria ML Clean catch Resulting Agency Comment ER us Keri Buckley DO LAB MICROBIOLOGY - GENERAL [facility] Final Result [address] [phone] documented in this encounter Visit Diagnoses Not on filedocumented in this encounter Care Teams Beverage Specialist Relationship Specialty Start Date End Date Shana Easton MD [address] [address] PCP - General 05/05/18 12/30/20 documented as of this encounter
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
--- OUTSIDE RECORDS SUMMARY | 2024-03-15 18:52 | XMS_ITS | Encounter Summary ---
Author Organization [facility] Healthcare Address [address] [place] [address] Care Team Providers Care Psychological Science Professor Name Role Phone No, Physician Primary Care Provider [phone] Reason for Visit * Reason Comments Vaginal Bleeding - Encounter Details Date Type Department Care Team (Late st Contact Info) Description 12/31/2020 7:13 PM CDT - 12/31/2020 9:12 PM CDT Emergency [facility] Emergency Department [facility] [place] [address] Threatened (Primary Dx) Discharge Disposition: [...] Care Everywhere. * Threatened Miscarriage (AfterCare(R) Instructions(ER/ED)) (Tunisian) documented [...] tenderness. Genitourinary: Comments: Chaperoned by KEITH Trinidad forest ranger technician; a few blood clots present in [...] LMP 11/05/2020 SpO2 98% BMI 18.75 kg/m?? [facility] ED Course as of Jan 01 2112 [...] PA This examination was transcribed using the [employer] voice recognition system without human glued wood tester. In an effort to expedite patient care, this report has not been adjusted for typographical, grammatical, and syntax by a trained medical physicist. Clinical Impression: Threatened Nadiya Macias PA 12/31/202111 [...] was last reviewed 2020 Testing performed by: [address] [address] Blood 12/31/2020 7:20 PM CDT 12/31/2020 7:25 PM CDT us Nadiya [facility] LAB BLOOD ORDERABLE S Final Result [facility] [address] [facility] Department [place] [address] * Differential, auto (12/31/2020 7:20 PM CDT) Neutrophil abs 5.6 1.7 - 6.5 K/cumm ALBERTO Comment:Testing performed by : [address] [address] Imm gran abs 0.0 0.0 - 0.1 K/cumm ALBERTO Comment:Testing performed by : [address] [address] Lymphocyte abs 1.8 0.8 - 3.3 K/cumm ALBERTO Comment:Testing performed by : [address] [address] Monocyte abs 0.6 0.2 - 0.8 K/cumm ALBERTO Comment:Testing performed by : [address] [address] Eosinophil abs 0.1 0.0 - 0.5 K/cumm [facility] Comment:Testing performed by : [address] [address] Basophil abs 0.0 0.0 - 0.1 K/cumm [facility] Comment:Testing performed by : [address] [address] Neutrophil pct 68.7 % [facility] Comment: Interpretive Data Percent cell count reference ranges are not reported, since discordance with absolute values may lead to misinterpretation of CBC data. Current Interpretive Data was last revised on 2017. Testing performed by: [address] [address] Imm gran pct 0.2 % [facility] Comment: Interpretive Data Percent cell count reference ranges are not reported, since discordance with absolute values may lead to misinterpretation of CBC data. Current Interpretive Data was last revised on 2017. Testing performed by: [address] [address] Lymphocyte pct 22.4 % [facility] Comment: Interpretive Data Percent cell count reference ranges are not reported, since discordance with absolute values may lead to misinterpretation of CBC data. Current Interpretive Data was last revised on 2017. Testing performed by: [address] [address] Monocyte pct 7.4 % [facility] Comment: Interpretive Data Percent cell count reference ranges are not reported, since discordance with absolute values may lead to misinterpretation of CBC data. Current Interpretive Data was last revised on 2017. Testing performed by: [address] [address] Eosinophil pct 1.1 % [facility] Comment: Interpretive Data Percent cell count reference ranges are not reported, since discordance with absolute values may lead to misinterpretation of CBC data. Current Interpretive Data was last revised on 2017. Testing performed by: [address] [address] Basophil pct 0.2 % [facility] Comment: Interpretive Data Percent cell count reference ranges are not reported, since discordance with absolute values may lead to misinterpretation of CBC data. Current Interpretive Data was last revised on 2017. Testing performed by: [facility], [address] [place] [address]., [address] Blood 12/31/2020 7:20 PM CDT 12/31/2020 7:26 PM CDT Nadiya [facility] LAB BLOOD ORDERABLE S Final Result Performing Organization Address [facility] de Phone Number ALBERTO [address] [facility] [address] [place], [place] [id number] * (ABNORMAL) hCG, blood, quantitative (12/31/2020 7:20 [...] last revised on 2017. Testing performed by: [facility], [address] [place] [address]., [address] Blood 12/31/2020 7:20 PM CDT 12/31/2020 7:25 PM CDT Nadiya [facility] LAB BLOOD ORDERABLE S Edited Result - Final Performing Organization Address [facility] Co de Phone Number ALBERTO [address] [facility] [place] [address] * (ABNORMAL) Basic metabolic panel (12/31/2020 7:20 PM CDT) Sodium 142 135 - 145 mmol/L [facility]ERT[facility] Comment:Testing performed by : [address] [address] Potassium, pl 3.3 3.3 - 4.9 mmol/L [facility] Comment:Testing performed by : [address] [address] Chloride 106 97 - 110 mmol/L [facility] Comment:Testing performed by : [address] [address] CO2 24 22 - 32 mmol/L AL[facility]ERTO Comment:Testing performed by : [address] [address] Anion gap 12 2 - 15 mmol/L [facility]ERTO Comment:Testing performed by : [address] [address] BUN 7(L) 8 - 25 mg/dL [facility] Comment:Testing performed by : [address] [address] Creatinine 0.60 0.60 - 1.10 mg/dL [facility] Comment:Testing performed by : [address] [address] Glucose 123 70 - 199 mg/dL [facility] Comment: Interpretive Data Fasting glucose >/= [...] was last revised 2017. Testing performed by: [address], [place]., [address] Calcium 9.6 8.5 - 10.3 mg/dL [facility] Comment:Testing performed by : [address] [address] Blood 12/31/2020 7:20 PM CDT 12/31/2020 7:25 PM CDT us Nadiya [facility] LAB BLOOD ORDERABLE S Final Result [facility] [address] [facility] Department [place] [address] * CBC with auto differential (12/31/2020 7:20 PM CDT) Pathologist [facility] WBC 8.1 3.8 - 9.9 K/cumm ALBERTO Comment:Testing performed by : [address] [address] Hgb 12.6 11.9 - 15.5 g/dL [facility] Comment:Testing performed by : [address] [address] Hct 37.8 35.6 - 45.5 % [facility] Comment:Testing performed by : [address] [address] Plt 212 150 - 400 K/cumm AL[facility]ERTO Comment:Testing performed by : [address] [address] MPV 10.5 9.1 - 12.3 fL [facility]ERT[facility] Comment:Testing performed by : [address] [address] RBC 4.23 3.90 - 5.20 M/cumm AL[facility]ERTO Comment:Testing performed by : [address] [address] MCV 89.4 81.3 - 96.4 fL [facility] Comment:Testing performed by : [address] [address] MCH 29.8 27.1 - 33.3 pg ALBERTO [facility]CA Comment:Testing performed by : [address] [address] MCHC 33.3 32.3 - 35.7 g/dL AL[facility]ERTO Comment:Testing performed by : [address] [address] RDW CV 12.4 11.1 - 14.9 % AL[facility]ERTO [facility]UCA Comment:Testing performed by : [address] [address] RDW SD 40.3 35.7 - 48.1 fL ALBERTO [facility]CA Comment:Testing performed by : [address] [address] NRBC abs 0.00 0.00 - 0.01 K/cumm ALBERTO [facility]UCA Comment:Testing performed by : [address] [address] Blood 12/31/2020 7:20 PM CDT 12/31/2020 7:26 PM CDT us Nadiya [facility] LAB BLOOD ORDERABLE S Final Result ALBERTO [address] Department [place] [address] documented in this encounter Visit Diagnoses Diagnosis Threatened - Primary documented in this encounter Care Teams Psychological Science Professor Relationship Specialty Start Date End Date No, Physician PCP - General 12/31/20 05/21/22 documented as of this encounter
--- OUTSIDE RECORDS SUMMARY | 2024-03-15 18:52 | XMS_ITS | Encounter Summary ---
Author Organization [facility] Healthcare Address [address] [place] [address] Care Team Providers Care Miter Operator Name Role Phone Shana Easton MD Primary Care Provider [phone] Encounter Details Date Type Department Care Team (Late st Contact Info) Description 12/09/2018 9:53 AM CDT - 12/09/2018 12:23 PM CDT Hospital Encounter [facility] Emergency Department [address] [place] [address] Unknown, Cassi Greco, PA [address] [place] [id number] Discharge Disposition: Discharge to home or self [...] CDT) Lipase 21 13 - 60 U/L [facility] 12/09/2018 10:1 8 AM CDT 12/09/2018 10:22 AM CDT Narrative Resulting Agency Comment ER us Cassi [facility] LAB BLOOD ORDERABLES Final Re sult [address] [phone] * (ABNORMAL) Comprehensive metabolic panel (12/09/2018 10:18 AM CDT) Sodium 142 135 - 145 mmol/L [facility] Potassium 3.9 3.3 - 5.1 mmol/L [facility] Chloride 106 96 - 108 mmol/L [facility] Carbon Dioxide 25 22 - 32 mmol/L [facility] Anion Gap 11 7 - 16 [facility] Glucose 81 70 - 100 mg/dL [facility] BUN 9 8 - 25 mg/dL [facility] Creatinine 0.5 0.5 - 1.1 mg/dL [facility] Comment: NOTE: Estimated GFR (Cockroft-Gault) will NOT be calculated unless patient Height and Weight were entered. Also, Kidney Disease Stage (GFR) and Estimated GFR (Cockroft-Gault) will NOT be calculated if Creatinine result is <0.2. Kidney Disease Stage >90 mL/MIN [facility] Comment: NOTE; ??The GFR is an [...] on dialysis Est GFR (Cockcroft-G) 138 ml/MIN [facility] Comment: Estimated GFR(Cockroft-Gault)is used to calculate patient medication dosage Calcium 9.4 8.6 - 10.3 mg/dL [facility] Total Protein 7.1 6.4 - 8.3 g/dL [facility] Albumin 4.8 3.5 - 5.0 g/dL [facility] Globulin 2.3 2.3 - 3.5 gm/dL [facility] Albumin/Globulin Ratio 2.1(H) 1.1 - 1.8 [facility] Total Bilirubin 0.2 0.0 - 1.2 mg/dL [facility] AST 12 0 - 32 U/L [facility] ALT 12 0 - 33 U/L [facility] Alkaline Phosphatase 59 35 - 104 U/L [facility] 12/09/2018 10:1 8 AM CDT 12/09/2018 10:22 AM CDT Narrative Resulting Agency Comment ER us Cassi [facility] LAB BLOOD ORDERABLES Final Re sult [facility] [address] [place] [address] * (ABNORMAL) CBC with auto differential (12/09/2018 10:18 AM CDT) WBC 6.3 3.8 - 9.9 X10 3/ul [facility] RBC 4.45 3.90 - 5.20 x10 6/ul [facility] Hemoglobin 12.7 11.9 - 15.5 g/dL [facility] Hct 39.4 35.6 - 45.5 % [facility] MCV 88.5 81.3 - 96.4 fl [facility] MCH 28.5 27.1 - 33.3 pg [facility] MCHC 32.2(L) 32.3 - 35.7 g/dl [facility] RDW 12.5 11.1 - 14.9 % [facility] Plt Count 231 150 - 400 x10 3/ul [facility] MPV 11.1 9.1 - 12.3 fl [facility] Neut % 68.8 % [facility] AST [employer] Immature Gran % 0.3 % [facility] Lymph % 21.4 % [facility] E AST - [employer] [place] % 7.4 % [facility] E AST - [employer] Eos % 1.6 % [facility] E AST - [employer] [place] % 0.5 % [facility] NEUTROPHIL ABS # 4.3 1.7 - 6.5 x10 3/ul [facility] Immature Gran # 0.0 0.0 - 0.1 x10 3/ul [facility] Absolute Lymphs (auto) 1.4 0.8 - 3.3 x10 3/ul [facility] Absolute Monos (auto) 0.5 0.2 - 0.8 x10 3/ul [facility] Absolute Eos (auto) 0.1 0.0 - 0.5 x10 3/ul [facility] BASOPHIL ABS # 0.0 0.0 - 0.1 x10 3/ul [facility] Nucleat RBC Rel Count 0.0 #/100WBC [facility] NRBC abs 0.00 0.00 - 0.01 x10 3/ul [facility] Absolute Neutrophils 4,300 200 - 8,000 /ul [facility] 12/09/2018 10:1 8 AM CDT 12/09/2018 10:22 AM CDT Narrative Resulting Agency Comment ER us Cassi [facility] LAB BLOOD ORDERABLES Final Re sult [address] [phone] * (ABNORMAL) URINALYSIS, COMPLETE W/REFLEX TO CULTURE (12/09/2018 10:00 AM CDT) Ur Collection Type CLEAN CATCH [facility] Ur Culture Indicated? C S NOT INDICATED [facility] Urine Color YELLOW YELLOW [facility] Urine Clarity [facility] Urine Glucose (UA) NORMAL NORMAL mg/dL [facility] Urine Bilirubin NEGATIVE NEGATIVE mg/dl [facility] Urine Ketones NEGATIVE NEGATIVE mg/dL [facility] Ur Specific [place] 1.014 1.005 - 1.025 [facility] Urine Blood 0.2(A) NEGATIVE mg/dl [facility] Urine pH 5.0 5.0 - 8.0 [facility] Urine Protein NEGATIVE NEGATIVE mg/dL [facility] Urine Urobilinogen NORMAL NORMAL mg/dL [facility] Urine Nitrite NEGATIVE NEGATIVE [facility] Ur Leukocyte Esterase NEGATIVE NEGATIVE Sammie/ul [facility] Ur Microscopic Review Indicated or Ordered [facility] Urine RBC 7 0 - 2 /HPF [facility] Urine WBC 1 0 - 2 /HPF [facility] Urine Bacteria Rare /HPF [facility] Urine Mucus RARE /LPF [facility] Ur Squamous Epith Cells Rare /LPF [facility] 12/09/2018 10:0 0 AM CDT 12/09/2018 10:09 AM CDT Narrative [facility] - 12/09/2018 10:22 AM CDT Indication(s) for ordering ?? Dysuria anm Clean catch Resulting Agency Comment ER us Cassi [facility] LAB URINE ORDERABLES [place] [address], [facility] [phone] * CT Abdomen Pelvis WO Contrast (12/09/2018 12:00 AM CDT) Anatomical Region Laterality Modality Body N/A Computed Tomogra phy 12/09/2018 11:5 9 AM CDT Narrative 12/09/2018 12:03 PM CDT Patient Name: DIOGENES CARTER ?Ordering Dr: Cassi Whitaker PA-C ?? D.O.B: 2000 ? Exam Date: 12/09/18 ?? 0000 ?? Age: 18 ?Sex: Female ? MR#: [id number] ?? Loc: ? RADIOLOGY REPORT ?? Order #[id number] ?? CT Scan ? CT Abd/Pelvis WO [...] T: ??12/09/2018 12:03 PM ? Report ID: [id number] ?? Reading Location: ??[id number] ? REPORT ELECTRONICALLY SIGNED IN OTHER VENDOR SYSTEM ?? Resulting Agency Comment E Procedure Note Toño Hawkins MD - 12/09/2018 Patient Name: DIOGENES CARTER Maria Del Ros[address] Dr: Cassi Whitaker PA-C, D.O.B: 2000 Exam Date: 12/09/18 0000 Age: 18 Sex: Female MR#: [id number] Loc: RADIOLOGY REPORT Order #[id number] CT Scan CT Abd/Pelvis WO IV Contrast [...] by Toño Hawkins M.D. JR: Report ID: [id number] Reading Location: [place] [address] REPORT ELECTRONICALLY SIGNED IN OTHER VENDOR SYSTEM us Cassi VALENTINE IMG CT PROCEDURES Final Resul t documented in this encounter Visit Diagnoses Not on filedocumented in this encounter Care Teams Miter Operator Relationship Specialty Start Date End Date Shana Easton MD [address] REM[place]ERT[place] [address] [place] [address] PCP - General 05/05/18 12/30/20 documented as of this encounter
--- OUTSIDE RECORDS SUMMARY | 2024-03-15 18:52 | XMS_ITS | Encounter Summary ---
Author Organization [facility] Medical Group Address [address] [facility] [address] [place] [address] Care Team Providers Care Real Estate Agent Name Role Phone La Nena Ferro NP Primary Care Provider [phone] Encounter Details Date Type Department Care Team (Late st Contact Info) Description 07/08/[address] [facility] Medical [facility] Virtual Care [address] [place] [phone] Riana Ferro NP [address] [address] Your Medications Social History Tobacco [...] prescribed, if applicable, as well as any xrpt-[id number] remedies. She was given instructions regarding follow up and timeframe if symptoms worsen or don???t improve. These instructions were included in the Evisors message reply tothe patient. Patient Instructions were [...] site documented in this encounter Care Teams Real Estate Agent Relationship Specialty Start Date End Date La Nena Ferro NP [address] [address] PCP - General Family Medicine 05/22/22 08/05/22 documented as of this encounter
--- OUTSIDE RECORDS SUMMARY | 2024-03-15 18:52 | XMS_ITS | Encounter Summary ---
Author Organization [facility] Healthcare Address [address] [place] [address] Care Team Providers Care Metallurgical Engineering Teacher Name Role Phone La Nena Ferro NP Primary Care Provider [phone] Encounter Details Date Type Department Care Team (Late st Contact Info) Description 07/08/2022 Patient Self-Triage [facility] HealthCare/ Physicians [facility] [place] [address] Mychart, Generic Provider [address] [place], [place] [id number] Social History Tobacco Use Types Packs/Day Years [...] on filedocumented in this encounter Care Teams Metallurgical Engineering Teacher Relationship Specialty Start Date End Date La Nena Ferro NP [address] [facility] [address] [place] [address] PCP - General Family Medicine 05/22/22 08/05/22 documented as of this encounter
--- OUTSIDE RECORDS SUMMARY | 2024-03-15 18:52 | XMS_ITS | Encounter Summary ---
Author Organization [facility] Healthcare Address [address] [place] [address] Care Team Providers Care Riprap Worker Name Role Phone Shana Easton MD Primary Care Provider [phone] No, Physician Primary Care Provider [phone] Reason for Referral * Diagnostic Imaging (Routine) - Closed Specialty Diagnoses / Procedures Referred By Dora t Referred To Contact Diagnoses Threatened Procedures US OB Under 14 Weeks W Endovaginal Kush Perez MD [facility] [place] [address] Phone: tel: fax: [address] [phone] Referral ID Status Reason Start Date Expiration Date Visits Re quested Visits Authorized [id number] Closed 12/31/2020 01/30/2022 1 1 Reason for Visit * Reason Comments Vaginal Bleeding - Encounter Details Date Type Department Care Team (Late st Contact Info) Description 12/30/2020 10:14 PM CDT - 12/31/2020 1:27 AM CDT Emergency [facility] Emergency Department [address] [place] [id number] Kush Perez MD [address] [facility] [address] [place] [id number] Threatened (Primary Dx); Less than 8 weeks [...] 1 week and follow up with your tyre builder or the tyre builder referral in 1 week. * Attachments The following attachments cannot be sent through Care Everywhere. * First Trimester (AfterCare(R) Instructions(ER/ED)) (Romanian) * Threatened Miscarriage (AfterCare(R) Instructions(ER/ED)) (Romanian) documented in this encounter Discharge Disposition Disposition [...] or hematuria. She has not seen an tyre builder for this yet. She has an appointment [...] nursing note reviewed. Exam conducted with a instrument inspector present (TIMOTEO Ceja present). Constitutional: General: She [...] and oriented to person, place, and time. [facility] ED Course as of Jan 01 112 Time: 12/30 2257 Value: ABO/Rh: ABO/RH. A Positive Comment: Rh Positive - rhogam not indicated. By: Kush Perez MD Time: 12/30 2338 Comment: UA shows no signs of UTI. CBC unremarkable. Hgb stable. CMP unremarkable. By: Kush Perez MD Time: 12/30 2338 Comment: BhG 1257 By: Kush Perez MD Time: 12/30 4969 Comment: Vaginitis panel is negative By: Kush Perez MD Time: 12/31 42 Comment: Chlamydia and gonorrhea negative. By: Kuhs Perez MD Time: 12/31 105 Value: US Transvaginal Comment: Single live intrauterine gestation. heart rate 95 beats per minute. 5w5d by US. By: Kush Perez MD Time: 12/31 105 Comment: Findings discussed with the pt. She understands to have a repeat bhcg in 48 hours and ultrasound in 1 week. She will call her tyre builder to get an expedited appointment for further [...] PM T: ??01/02/2021 4:33 PM Report ID: [id number] Reading Location: ??[id number] Procedure Note Alana Hernández [...] Alana Hernández M.D. TB: TB Report ID: [id number] Reading Location: [facility] us Kush Perez MD IMG OB US [...] ?? Not identified Mean sac diameter: ?cm [place]-rump length: ?? 0.22 cm heart rate: ?? [...] Electronically signed by Joey Amaya M.D. RW: ROSLAINDA D: ??12/31/2020 12:28 AM T: ??12/31/2020 12:51 AM Report ID: [id number] Reading Location: ??[id number] Procedure Note Joey Amaya MD - 12/31/2020 [...] Placenta: Not identified Mean sac diameter: cm [place]-rump length: 0.22 cm heart rate: 95 bpm [...] Joey Amaya M.D. RW: ROSALINDA Report ID: [id number] Reading Location: [place] [address] us Kush Perez MD IMG US PROCEDURES Final R esult * N. gonorrhoeae/C. trachomatis Amplification Endocervical (12/30/2020 10:45 PM CDT) Pathologist [facility] C. trachomatis Not Detected Not Detected ALBERTO DELUCA Comment:Testing performed by : [address] [address] N. gonorrhoeae Not Detected Not Detected ALBERTO DELUCA Comment: Interpretive Data Testing performed by the [facility]. This assay detects Chlamydia trachomatis [...] last revised on 2019. Testing performed by: [address] [address] Endocervical (None) 12/31/19 10:45 PM CDT 12/30/2020 10:51 PM CDT Kush Perez MD LAB MICROBIOLOGY - GENERA L ORDERABLES Final Result ALBERTO DELUCA [address] [facility] Department [place] [address] * Vaginitis panel Vaginal (12/30/2020 10:45 PM CDT) [facility] Tammy DNA probe Not Detected Not Detected ALBERTO DELUCA Comment:Testing performed by : [address] [address] Gardnerella DNA probe Not Detected Not Detected ALBERTO DELUCA Comment:Testing performed by : [address] [address] Trichomonas DNA probe Not Detected Not Detected ALBERTO DELUCA Comment: Interpretive Data Testing performed by [facility] via Affirm VPIII Microbial Identification Test, [...] revised on 2020. Testing performed by: [address] [address] Vaginal 12/30/2020 10:4 5 PM CDT 12/30/2020 10:51 PM CDT Kush Perez MD LAB MICROBIOLOGY - GENERA L ORDERABLES Final Result [facility] Department [place] [address] * (ABNORMAL) POCT hCG, urine (12/30/2020 10:11 PM CDT) Pathologist [facility] HCG, ur, POC Positive Lot Number [id number] QC Backgroud Clear Acceptable QC Control Line Acceptable Urine 12/30/2020 10:1 1 PM CDT Kush Perez MD POINT OF CARE TEST ORDERA BLES Final Result * eGFR (12/30/2020 10:09 PM CDT) Pathologist [facility] eGFR 137 mL/min/1.7 3 m2 ALBERTO DELUCA [...] was last reviewed 2020 Testing performed by: [address] [address] Blood 12/30/2020 10:0 9 PM CDT 12/30/2020 10:18 PM CDT us Kush Perez MD LAB BLOOD ORDERABLES Estefany lindsey Result [facility] [address] [facility] Department [place] [address] * Differential, auto (12/30/2020 10:09 PM CDT) Neutrophil abs 5.2 1.7 - 6.5 K/cumm ALBERTO Comment:Testing performed by : [address] [address] Imm gran abs 0.0 0.0 - 0.1 K/cumm ALBERTO Comment:Testing performed by : [address] [address] Lymphocyte abs 2.4 0.8 - 3.3 K/cumm ALBERTO Comment:Testing performed by : [address] [address] Monocyte abs 0.6 0.2 - 0.8 K/cumm [facility] Comment:Testing performed by : [address] [address] Eosinophil abs 0.1 0.0 - 0.5 K/cumm [facility] Comment:Testing performed by : [address] [address] Basophil abs 0.0 0.0 - 0.1 K/cumm [facility] Comment:Testing performed by : [address] [address] Neutrophil pct 61.6 % [facility] Comment: Interpretive Data Percent cell count reference ranges are not reported, since discordance with absolute values may lead to misinterpretation of CBC data. Current Interpretive Data was last revised on 2017. Testing performed by: [address] [address] Imm gran pct 0.4 % [facility] Comment: Interpretive Data Percent cell count reference ranges are not reported, since discordance with absolute values may lead to misinterpretation of CBC data. Current Interpretive Data was last revised on 2017. Testing performed by: [address] [address] Lymphocyte pct 28.2 % [facility] Comment: Interpretive Data Percent cell count reference ranges are not reported, since discordance with absolute values may lead to misinterpretation of CBC data. Current Interpretive Data was last revised on 2017. Testing performed by: [address] [address] Monocyte pct 7.6 % [facility] Comment: Interpretive Data Percent cell count reference ranges are not reported, since discordance with absolute values may lead to misinterpretation of CBC data. Current Interpretive Data was last revised on 2017. Testing performed by: [address] [address] Eosinophil pct 1.7 % [facility] Comment: Interpretive Data Percent cell count reference ranges are not reported, since discordance with absolute values may lead to misinterpretation of CBC data. Current Interpretive Data was last revised on 2017. Testing performed by: [address] [address] Basophil pct 0.5 % ALBERTO DELUCA Comment: Interpretive Data Percent cell count reference ranges are not reported, since discordance with absolute values may lead to misinterpretation of CBC data. Current Interpretive Data was last revised on 2017. Testing performed by: [address] [address] Blood 12/30/2020 10:0 9 PM CDT 12/30/2020 10:18 PM CDT Kush Perez MD LAB BLOOD ORDERABLES Estefany l Result Performing Organization Address [facility]/ZIP Co de Phone Number [address] [place] [address] * ABO/Rh (12/30/2020 10:09 PM CDT) ABO/Rh A Positive ALBERTO Comment:Testing performed by : [facility], [address] [place] [address]., [address] Blood 12/30/2020 10:0 9 PM CDT 12/30/2020 10:18 PM CDT Kush Perez MD LAB BLOOD BANK TEST ORDER LUTHER Final Result Performing Organization Address [facility] de Phone Number [address] [address] * (ABNORMAL) hCG, blood, quantitative (12/30/2020 10:09 [...] last revised on 2017. Testing performed by: [address] [address] Blood 12/30/2020 10:0 9 PM CDT 12/30/2020 10:18 PM CDT us Kush Perez MD LAB BLOOD ORDERABLES Estefany lindsey Result [facility] [address] [facility] Department [place] [address] * (ABNORMAL) Comprehensive metabolic panel (12/30/2020 10:09 PM CDT) Sodium 140 135 - 145 mmol/L ALBERTO Comment:Testing performed by : [address] [address] Potassium, pl 3.2(L) 3.3 - 4.9 mmol/L ALBERTO Comment:Testing performed by : [address] [address] Chloride 103 97 - 110 mmol/L ALBERTO Comment:Testing performed by : [address] [address] CO2 25 22 - 32 mmol/L ALBERTO Comment:Testing performed by : [address] [address] Anion gap 12 2 - 15 mmol/L ALBERTO Comment:Testing performed by : [address] [address] BUN 7(L) 8 - 25 mg/dL ALBERTO Comment:Testing performed by : [address] [address] Creatinine 0.50(L) 0.60 - 1.10 mg/dL ALBERTO Comment:Testing performed by : [address] [address] Glucose 94 70 - 199 mg/dL ALBERTO [...] was last revised 2017. Testing performed by: [address] [address] Calcium 9.0 8.5 - 10.3 mg/dL ALBERTO Comment:Testing performed by : [address] [address] Bilirubin, total 0.3 0.1 - 1.2 mg/dL ALBERTO Comment:Testing performed by : [address] [address] Protein, pl 7.0 6.5 - 8.5 g/dL ALBERTO Comment:Testing performed by : [address] [address] Albumin 4.6 3.5 - 5.0 g/dL ALBERTO Comment:Testing performed by : [address] [address] Alk phos 52 40 - 130 Units/L ALBERTO Comment:Testing performed by : [address] [address] ALT 19 7 - 45 Units/L ALBERTO Comment:Testing performed by : [address] [address] AST 18 10 - 45 Units/L ALBERTO Comment:Testing performed by : [address] [address] Blood 12/30/2020 10:0 9 PM CDT 12/30/2020 10:18 PM CDT us Kush Perez MD LAB BLOOD ORDERABLES Estefany lindsey Result ALBERTO [address] [facility] Department [place] [address] * CBC with auto differential (12/30/2020 10:09 PM CDT) WBC 8.4 3.8 - 9.9 K/cumm ALBERTO Comment:Testing performed by : [address] [address] Hgb 12.4 11.9 - 15.5 g/dL ALBERTO Comment:Testing performed by : [address] [address] Hct 37.7 35.6 - 45.5 % ALBERTO Comment:Testing performed by : [address] [address] Plt 228 150 - 400 K/cumm ALBERTO Comment:Testing performed by : [address] [address] MPV 10.8 9.1 - 12.3 fL ALBERTO Comment:Testing performed by : [address] [address] RBC 4.22 3.90 - 5.20 M/cumm ALBERTO Comment:Testing performed by : [address] [address] MCV 89.3 81.3 - 96.4 fL ALBERTO Comment:Testing performed by : [address] [address] MCH 29.4 27.1 - 33.3 pg ALBERTO Comment:Testing performed by : [address] [address] MCHC 32.9 32.3 - 35.7 g/dL ALBERTO Comment:Testing performed by : [address] [address] RDW CV 12.3 11.1 - 14.9 % ALBERTO Comment:Testing performed by : [address] [address] RDW SD 39.8 35.7 - 48.1 fL ALBERTO Comment:Testing performed by : [address] [address] NRBC abs 0.00 0.00 - 0.01 K/cumm ALBERTO DELUCA Comment:Testing performed by : [address] [address] Blood 12/30/2020 10:0 9 PM CDT 12/30/2020 10:18 PM CDT us Kush Perez MD LAB BLOOD ORDERABLES Estefany lindsey Result ALBERTO [address] [facility] Department [place] [address] * (ABNORMAL) Urinalysis, microscopic only (12/30/2020 10:06 PM CDT) WBC, ur 0-5 0 - 5 /HPF ALBERTO Comment:Testing performed by : [address] [address] RBC, ur 11-20(A) 0 - 2 /HPF ALBERTO Comment:Testing performed by : [address] [address] Epithelial cells, squamous, ur 1-5 0 - 5 /HPF ALBERTO Comment:Testing performed by : [address] [address] Bacteria, ur 2+(A) ALBERTO Comment:Testing performed by : [address] [address] Mucous, ur Present(A) ALBERTO Comment:Testing performed by : [address] [address] Culture Reflex Comment Reflex conditions for urine culture (WBC >10) not met. ALBERTO Comment:Testing performed by : [address] [address] Urine, clean voided 12/30/2020 10:06 PM CDT 12/30/2020 10:18 PM CDT us Kush Perez MD LAB URINE ORDERABLES Estefany césar Result ALBERTO [address] [facility] Department [place] [address] * (ABNORMAL) Urinalysis reflex to microscopic and culture Urine, clean voided (12/30/2020 10:06 PM CDT) Color, ur Straw Yellow ALBERTO Comment:Testing performed by : [address] [address] Clarity, ur Clear Clear ALBERTO Comment:Testing performed by : [address] [address] Specific gravity, ur 1.002(L) 1.003 - 1.030 ALBERTO Comment:Testing performed by : [address] [address] pH, urine 6.0 ALBERTO Comment:Testing performed by : [address] [address] Protein, ur ql Negative Negative ALBERTO Comment:Testing performed by : [address] [address] Glucose, ur ql Negative Negative ALBERTO Comment:Testing performed by : [address] [address] Ketones, ur Negative Negative ALBERTO Comment:Testing performed by : [address] [address] Bilirubin, ur Negative Negative ALBERTO Comment:Testing performed by : [address] [address] Blood, ur 3+(A) Negative ALBERTO Comment:Testing performed by : [address] [address] Urobilinogen, ur <2.0 <2.0 mg/dL ALBERTO Comment:Testing performed by : [address] [address] Nitrite, ur Negative Negative ALBERTO Comment:Testing performed by : [facility], [address] [place] [address]., [address] Leukocyte esterase, ur Negative Negative [facility] Comment:Testing performed by : [address] [address] UA reflex comment Reflex to microscopic UA will be performed. ALBERTO Comment:Testing performed by : [facility], [address] [place] [address]., [address] Urine, clean voided 12/30/2020 10:06 PM CDT [...] tendency for uric acid stone formation. Source: [employer]. Last revised 04-04-2017 us Kush Perez MD LAB MICROBIOLOGY - GENERA L ORDERABLES Final Result ALBERTO [address] [facility] Department [place] [address] documented in this encounter Visit Diagnoses Diagnosis Threatened - Primary Less than 8 weeks gestation of Threatened documented in this encounter Care Teams Riprap Worker Relationship Specialty Start Date End Date Shana Easton MD [address] [place] [address] PCP - General 05/05/18 12/30/20 No, Physician PCP - General 12/31/20 05/21/22 documented as of this encounter
--- OUTSIDE RECORDS SUMMARY | 2024-03-15 18:52 | XMS_ITS | Encounter Summary ---
Author Organization [facility] Healthcare Address [address] [place] [address] Care Team Providers Care Oyster Opener Name Role Phone FerroLa Nena bob OZIEL Primary Care Provider [phone] Encounter Details Date Type Department Care Team (Late st Contact Info) Description 06/22/2022 9:40 AM CDT Lab [facility] Lab [address] [place] [address] Social History Tobacco Use Types Packs/Day Years [...] revised on 2021. Testing performed by: [facility], [address] [place] [address]., [address] Blood 06/22/2022 9:49 AM CDT 06/22/2022 10:38 AM CDT us Kush Perez MD LAB BLOOD ORDERABLES Edit ed Result - [facility] [address] [facility] Department [place] [address] documented in this encounter Visit Diagnoses Not on filedocumented in this encounter Care Teams Oyster Opener Relationship Specialty Start Date End Date La Nena Ferro NP [address] [facility] [address] [place] [address] PCP - General Family Medicine 05/22/22 08/05/22 documented as of this encounter
--- OUTSIDE RECORDS SUMMARY | 2024-03-15 18:53 | XMS_ITS | Encounter Summary ---
Author Organization [facility] Healthcare Address [address] [place] [address] Care Team Providers Care Steamer Gum Candy Name Role Phone Shana Easton MD Primary Care Provider [phone] Encounter Details Date Type Department Care Team (Latest Contact Info) Description 05/05/2018 1:13 PM PACKAGE CENTER SUPERVISOR - 05/05/2018 4:25 PM PACKAGE CENTER SUPERVISOR Hospital Encounter [facility] Emergency Department [address] [place] [address] Tania Luna, SALES ORDER COORDINATOR [address] [facility] [facility] [place] [address] Discharge Disposition: Discharge to home or self [...] Comments Blood Pressure 127/85 05/05/2018 1:45 PM PACKAGE CENTER SUPERVISOR Pulse 80 05/05/2018 1:45 PM PACKAGE CENTER SUPERVISOR Temperature 36.5 ??C (97.7 ??F) 05/05/2018 1:45 PM CS T Respiratory Rate - - Oxygen Saturation 100% 05/05/2018 1:45 PM PACKAGE CENTER SUPERVISOR Inhaled Oxygen Concentration - - Weight 50.6 kg (111 lb 8.9 oz) 05/05/2018 1:45 P M PACKAGE CENTER SUPERVISOR Height 160 cm (5' 3 ) 05/05/2018 1:45 PM PACKAGE CENTER SUPERVISOR Body Mass Index 19.76 05/05/2018 1:45 PM PACKAGE CENTER SUPERVISOR documented in this encounter Discharge Disposition Disposition Code Departure Means Destination Discharge to home or self care documented in this encounter Plan of Treatment Not on file documented as of this encounter Procedures Procedure Name Priority Date/Time Associated Diagnosis Comments XR ABDOMEN AP 1 VIEW Routine 05/05/2018 3:23 PM PACKAGE CENTER SUPERVISOR CBC WITH AUTO DIFFERENTIAL Routine 05/05/2018 2:06 PM PACKAGE CENTER SUPERVISOR COMPREHENSIVE METABOLIC PANEL Routine 05/05/2018 2:06 PM PACKAGE CENTER SUPERVISOR URINALYSIS AND REFLEX TO MICROSCOPIC AND CULTURE Routine 05/05/2018 1:50 PM PACKAGE CENTER SUPERVISOR documented in this encounter Results * XR Abdomen Ap 1 Vw (05/05/2018 3:23 PM PACKAGE CENTER SUPERVISOR) Anatomical Region Laterality Modality Body, Abdomen N/A Radiographic Jaelyn ging 05/05/2018 3:23 PM PACKAGE CENTER SUPERVISOR Impressions 05/05/2018 3:33 PM PACKAGE CENTER SUPERVISOR ??Nonspecific bowel gas pattern with moderate stool burden. THIS IS AN ELECTRONICALLY VERIFIED FINAL REPORT 05/05/2018 3:30 PM - Electronically signed by Randall Beauchamp M.D. AG: CEASAR D: ??05/05/2018 3:30 PM T: ??05/05/2018 3:30 PM Report ID: [id number] Reading Location: ??[id number] [EOD] Narrative 05/05/2018 3:33 PM PACKAGE CENTER SUPERVISOR EXAM DESCRIPTION: ??Abdomen 1 View REASON FOR [...] Left lower quadrant abdominal pain and bloating [id number]. TECHNIQUE: Supine radiographic view of the abdomen [...] Randall Beauchamp M.D. AG: CEASAR Report ID: [id number] Reading Location: [place] [id number] [EOD] Tania Luna SALES ORDER COORDINATOR IMG XR PROCEDURES Final Resu lt * (ABNORMAL) Comprehensive metabolic panel (05/05/2018 2:06 PM PACKAGE CENTER SUPERVISOR) Sodium 143 135 - 145 mmol/L 05/05/2018 2:43 PM PACKAGE CENTER SUPERVISOR [employer] HISTORICAL RESULTS Potassium 3.9 3.3 - 5.1 mmol/L 05/05/2018 2:43 PM [email or web address] HISTORICAL RESULTS Chloride 105 96 - 108 mmol/L 05/05/2018 2:43 PM [facility] [employer] HISTORICAL RESULTS Carbon Dioxide 27 22 - 32 mmol/L 05/05/2018 2:43 PM [facility] [employer] HISTORICAL RESULTS Anion Gap 11 7 - 16 05/05/2018 2:43 PM [email or web address] HISTORICAL RESULTS Glucose 82 70 - 100 mg/dL 05/05/2018 2:43 PM [email or web address] HISTORICAL RESULTS BUN 10 6 - 20 mg/dL 05/05/2018 2:43 PM PACKAGE CENTER SUPERVISOR [facility] [employer] HISTORICAL RESULTS Creatinine 0.4(L) 0.5 - 1.1 mg/dL 05/05/2018 2:43 PM [facility] [employer] HISTORICAL RESULTS Comment: NOTE: Estimated GFR (Cockroft-Gault) will NOT be calculated unless patient Height and Weight were entered. Also, Kidney Disease Stage (GFR) and Estimated GFR (Cockroft-Gault) will NOT be calculated if Creatinine result is <0.2. Kidney Disease Stage > 90 mL/MIN 05/05/2018 2:43 PM [email or web address] HISTORICAL RESULTS Comment: NOTE; ??The GFR is [...] GFR (Cockcroft-G) 181 ml/MIN 05/05/2018 2:43 PM [email or web address] HISTORICAL RESULTS Comment: Estimated GFR(Cockroft-Gault)is used to calculate patient medication dosage Calcium 9.4 8.6 - 10.0 mg/dL 05/05/2018 2:43 PM [email or web address] HISTORICAL RESULTS Total Protein 7.4 6.4 - 8.3 g/dL 05/05/2018 2:43 PM [email or web address] HISTORICAL RESULTS Albumin 4.6 3.5 - 5.2 g/dL 05/05/2018 2:43 PM [email or web address] HISTORICAL RESULTS Globulin 2.8 2.3 - 3.5 gm/dL 05/05/2018 2:43 PM [email or web address] HISTORICAL RESULTS Albumin/Globulin Ratio 1.6 1.1 - 1.8 05/05/2018 2:[address] [employer] [facility] [employer] HISTORICAL RESULTS Total Bilirubin < 0.2 0.0 - 1.2 mg/dL 05/05/2018 2:43 PM [email or web address] HISTORICAL RESULTS AST 14 0 - 32 U/L ALT 22 0 - 33 U/L Alkaline Phosphatase 80 35 - 104 U/L 05/05/2018 2:43 PM [facility] [employer] [facility] HISTORICAL RESULTS 05/05/2018 2:06 PM PACKAGE CENTER SUPERVISOR 05/05/2018 2:14 PM PACKAGE CENTER SUPERVISOR Tania Luna SALES ORDER COORDINATOR LAB BLOOD ORDERABLES Final R esult [facility] HISTORICAL RESULTS * (ABNORMAL) CBC with auto differential (05/05/2018 2:06 PM [facility]) WBC 7.5 3.8 - 9.9 X10 3/ul RBC 4.59 3.90 - 5.20 x10 6/ul 05/05/2018 2:17 PM [facility] [employer] [facility] HISTORICAL RESULTS Hemoglobin 12.2 11.9 - 15.5 g/dL Hct 40.1 35.6 - 45.5 % MCV 87.4 81.3 - 96.4 fl MCH 26.6(L) 27.1 - 33.3 pg MCHC 30.4(L) 32.3 - 35.7 g/dl 05/05/2018 2:[address] [facility] HISTORICAL RESULTS RDW 13.9 11.1 - 14.9 % 05/05/2018 2:17 PM [facility] [employer] [facility] HISTORICAL RESULTS Plt Count 260 150 - 400 x10 3/ul 05/05/2018 2:17 PM [facility] [employer] [facility] HISTORICAL RESULTS MPV 10.6 9.1 - 12.3 fl 05/05/2018 2:17 PM [facility] [employer] [facility] HISTORICAL RESULTS Neut % 69.3 % Immature Gran % 0.1 % 9 2:17 PM [facility] HISTORICAL RESULTS Lymph % 20.8 % [place] % 7.0 % Eos % 2.4 % [...] 200 - 8000 /ul 05/05/2018 2:06 PM PACKAGE CENTER SUPERVISOR 05/05/2018 2:14 PM PACKAGE CENTER SUPERVISOR us Tania Luna SALES ORDER COORDINATOR LAB BLOOD ORDERABLES Final R esult [facility] HISTORICAL RESULTS * (ABNORMAL) Urinalysis reflex to microscopic and culture (05/05/2018 1:50 PM [facility]) Ur Collection Type CLEAN CATCH Ur Culture Indicated? C&S NOT INDICATED Urine Color YELLOW YELLOW Urine Clarity CLEAR CLEAR Urine Glucose (UA) NORMAL NORMAL mg/dL Urine Bilirubin NEGATIVE NEGATIVE mg/dl Urine Ketones NEGATIVE NEGATIVE mg/dL Ur Specific [place] 1.010 1.005 - 1.025 Urine Blood >=1.0 [...] Epith Cells Rare /LPF 05/05/2018 2:13 PM PACKAGE CENTER SUPERVISOR [facility] HISTORICAL RESULTS 05/05/2018 1:50 PM PACKAGE CENTER SUPERVISOR 05/05/2018 2:03 PM PACKAGE CENTER SUPERVISOR Narrative [facility] HISTORICAL RESULTS - 05/05/2018 2:13 PM PACKAGE CENTER SUPERVISOR Indication(s) for ordering ? Other - enter in comments ?? us Tania Luna NP LAB MICROBIOLOGY - GENERAL O MAGALY Final Result [facility] HISTORICAL RESULTS documented in this encounter Visit Diagnoses Not on filedocumented in this encounter Care Teams Steamer Gum Candy Relationship Specialty Start Date End Date Shana Easton MD [address] [address] PCP - General 05/05/18 12/30/20 documented as of this encounter
--- OUTSIDE RECORDS SUMMARY | 2024-03-15 18:53 | XMS_ITS | Encounter Summary ---
Author Organization [facility] Healthcare Address [address] [place] [address] Care Team Providers Care Candles Pourer Name Role Phone Unavailable Primary Care Provider Unavailabl e Encounter Details Date Type Department Care Team (Latest Contact Info) Description 06/07/2016 9:55 PM CDT - 06/10/2016 3:13 PM CDT Hospital Encounter [facility] Leyla Noble MD [address] [place] [address] Diseases of digestive system complicating childbirth; Anxiety [...] 06/08/2016 10: 55 AM CDT Growth Chart: [facility] (Girls, 2- 20 Years) documented in this [...] CDT) Hemoglobin 11.6 11.0 - 15.0 g/dl Hct 36.0 33.0 - 43.0 % 06/09/2016 6:15 AM CDT 06/09/2016 6:22 AM CDT us Asia Dewey MD LAB BLOOD ORDERABLES Estefany lindsey Result [facility] HISTORICAL RESULTS * (ABNORMAL) Blood gas, arterial, cord (06/08/2016 5:17 PM CDT) Cord ABG pH 7.232 7.20 - 7.34 Cord ABG pCO2 59.5 39.2 - 61.4 mmHg Cord ABG pO2 21.7(H) 9 - 19 mmHg Cord ABG HCO3 24.1 18.4 - 25.6 mmol/L Cord ABG Base Excess -4.5 -5.5 - 0.1 mmol/L Cord ABG O2 Sat 33.7(L) 47 - 67 % Aircraft Motor Mechanic ID SR BLOOD GAS COMMENTS RAN BY CBL 06/08/2016 5:17 PM CDT 06/08/2016 5:34 PM CDT us Leyla Noble MD LAB BLOOD ORDERABLES Final Resu lt [facility] HISTORICAL RESULTS * PROCEDURE - RESULT (06/08/2016 12:00 AM CDT) Narrative 06/08/2016 12:00 AM CDT Ordered by an unspecified provider. us Historical Provider Final Res ult * RPR, serum (06/07/2016 10:35 PM CDT) Treponemal IgG NONREACTIVE NONREACTIVE 06/09/19 5:24 AM CDT [facility] HISTORICAL RESULTS Comment: [employer] Centaur immunoassay to determine antibodies to Treponema pallidum. 06/07/2016 10:3 5 PM CDT 06/08/2016 12:34 AM CDT us Leyla Noble MD LAB MICROBIOLOGY - [facility] Final Result [facility] [employer] HISTORICAL RESULTS * (ABNORMAL) CBC with auto differential (06/07/2016 10:35 PM CDT) WBC 11.9(H) 4.6 - 10.2 x10 3/ul 06/08/2016 12:38 AM CDT [employer] HISTORICAL RESULTS RBC 4.50 3.76 - 4.80 x10 6/ul 06/08/2016 12:38 AM CDT [facility] [employer] HISTORICAL RESULTS Hemoglobin 12.1 11.0 - 15.0 g/dl 06/08/2016 12:38 AM CDT [employer] HISTORICAL RESULTS Hct 37.8 33.0 - 43.0 % 06/08/2016 12:38 AM CDT [employer] HISTORICAL RESULTS MCV 84.0 80.0 - 97.0 fl 06/08/2016 12:38 AM CDT [employer] HISTORICAL RESULTS MCH 26.9(L) 27.0 - 31.2 pg 06/08/2016 12:38 AM CDT [employer] HISTORICAL RESULTS MCHC 32.0 31.8 - 35.4 g/dl 06/08/2016 12:38 AM CDT [employer] HISTORICAL RESULTS RDW 16.0(H) 11.6 - 14.8 % 06/08/2016 12:38 AM CDT [employer] HISTORICAL RESULTS Plt Count 175 124 - 400 x10 3/ul 06/08/2016 12:38 AM CDT [employer] HISTORICAL RESULTS MPV 11.7(H) 7.4 - 10.4 fl 06/08/2016 12:38 AM CDT [employer] HISTORICAL RESULTS Neut % 72.4 37.0 - 85.0 % 06/08/2016 12:38 AM CDT [employer] HISTORICAL RESULTS Immature Gran % 0.8 0.0 - 3.0 % 06/08/2016 12:38 AM CDT [facility] [employer] HISTORICAL RESULTS Lymph % 18.0 5.0 - 45.0 % 06/08/2016 12:38 AM CDT [facility] [employer] HISTORICAL RESULTS [place] % 7.5 3.0 - 15.0 % 06/08/2016 12:38 AM CDT [employer] HISTORICAL RESULTS Eos % 1.0 0.0 - 7.0 % Baso % 0.3 0.0 - 2.0 % Absolute Neuts (auto) 8.7 1.7 - 8.7 x10 3/ul Immature Gran # 0.1 0.0 - 0.3 x10 3/ul Absolute Lymphs (auto) 2.1 0.2 - 4.6 x10 3/ul Absolute Monos (auto) 0.9 0.1 - 1.5 x10 3/ul Absolute Eos (auto) 0.1 0.0 - 0.7 x10 3/ul Absolute Basos (auto) 0.0 0.0 - 0.2 x10 3/ul 06/07/2016 10:3 5 PM CDT 06/08/2016 12:34 AM CDT us Leyla Noble MD LAB BLOOD ORDERABLES Final Resu lt [facility] HISTORICAL RESULTS * Drug Screen, Urine (06/07/2016 10:00 PM CDT) Ur Amphetamine Screen NEGATIVE NEGATIVE Comment: Cutoff Limit: ??1000 ng/mL ??Detects MDMA, MDA, d-Amphetamine, d-Methamphetamine, ?MBDB-HCl, MDEA and BDB-HCl Note: ??Positive results from this drug screen are unconfirmed. ??Unconfirmed screening results should not be used for non-medical purposes. Ur Barbiturates Screen NEGATIVE NEGATIVE 06/08/2016 12:[address] [facility] HISTORICAL RESULTS Comment: Cutoff limit: ??200 ng/mL ??Detects Secobarbitol, Cyclopentobarbital, Aprobarbital, ?Butalbital, Allobarbital, Butabarbital, ?Pentobarbital, Amobarbital and Phenobarbital U Benzodiazepines Scrn NEGATIVE NEGATIVE 06/08/2016 12:[address] [facility] HISTORICAL RESULTS Comment:Cutoff limit: 300 ng /mL U Cannabinoids Screen NEGATIVE NEGATIVE 06/08/2016 12:[address] [facility] HISTORICAL RESULTS Comment:Cutoff Limit: 50 ng/ mL U Cocaine Metab Screen NEGATIVE NEGATIVE 06/08/2016 12:[address] [facility] HISTORICAL RESULTS Comment:Cutoff limit: 300 ng /mL Urine Opiates Screen NEGATIVE NEGATIVE 06/08/2016 12:[address] [facility] HISTORICAL RESULTS Comment: Cutoff Limit: ??300 ng/mL Detects Morphine, Codeine, Ethyl Morphine, ?Diacetylmorphine, 6-Acetylmorphine, Dihydrocodeine, ?Tgkeihjs-2-ldbuynnpxdb and Hydrocodone Ur Oxycodone Screen NEGATIVE NEGATIVE 06/08 12:[address] [facility] HISTORICAL RESULTS Comment:Cutoff Limit: 100 ng /mL Urine Creatinine/MONICA 31.0 mg/dL 06/08/2016 12:[address] [facility] HISTORICAL RESULTS Comment:If Creatinine is < 4 0 mg/dL, recollection is suggested. 06/07/2016 10:0 0 PM CDT 06/07/2016 11:43 PM [facility] Narrative [facility] HISTORICAL RESULTS - 06/08/2016 12:01 AM CDT Collected By [facility] us Leyla Noble MD LAB URINE ORDERABLES Final Resu lt [facility] HISTORICAL RESULTS documented in this [...]
--- OUTSIDE RECORDS SUMMARY | 2024-03-15 18:53 | XMS_ITS | Encounter Summary ---
Author Organization [facility] Healthcare Address [address] [place] [address] Care Team Providers Care Community Health Program Representative Name Role Phone Unavailable Primary Care Provider Unavailabl e Encounter Details Date Type Department Care Team (Late st Contact Info) Description 09/26/2017 10:34 AM CDT - 09/26/2017 12:24 PM CDT Hospital Encounter [facility], Jennifer Mendez MD [address] [place] [address] Other specified diseases and conditions complicating , [...] 09/26/2017 10: 49 AM CDT Growth Chart: [facility] [...] - 7.0 mg/dL 09/26/2017 11:57 AM CDT [facility] HISTORICAL RESULTS 09/26/2017 11:1 1 AM CDT 09/26/2017 11:21 AM CDT Jennifer Villatoro MD LAB BLOOD ORDERABLES Fi nal Result [facility] HISTORICAL RESULTS * (ABNORMAL) Comprehensive metabolic panel (09/26/2017 11:11 AM CDT) Sodium 136 135 - 145 mmol/L 09/26/2017 11:57 AM CDT [facility] HISTORICAL RESULTS Potassium 4.1 3.3 - 5.1 mmol/L 09/26/2017 11:57 AM CDT [facility] HISTORICAL RESULTS Chloride 101 96 - 108 mmol/L 09/26/2017 11:57 AM CDT [facility] HISTORICAL RESULTS Carbon Dioxide 27 22 - 32 mmol/L 09/26/2017 11:57 AM CDT [facility] HISTORICAL RESULTS Anion Gap 8 7 - 16 09/26/2017 11:[address] [facility] HISTORICAL RESULTS Glucose 88 70 - 100 mg/dL 09/26/2017 11:[address] [facility] HISTORICAL RESULTS BUN 5(L) 6 - 20 mg/dL 09/26/2017 11:[address] [facility] HISTORICAL RESULTS Creatinine 0.3(L) 0.5 - 1.1 mg/dL 09/26/2017 11:[address] [facility] HISTORICAL RESULTS Comment: NOTE: Estimated GFR (Cockroft-Gault) will NOT be calculated unless patient Height and Weight were entered. Also, Kidney Disease Stage (GFR) and Estimated GFR (Cockroft-Gault) will NOT be calculated if Creatinine result is <0.2. Kidney Disease Stage > 90 mL/MIN 09/26/2017 11:[address] [facility] HISTORICAL RESULTS Comment: NOTE; ??The GFR is [...] dialysis @ Est GFR (Cockcroft-G) 248 ml/MIN 09/26/2017 11:[address] [facility] HISTORICAL RESULTS Comment: Estimated GFR(Cockroft-Gault)is used to calculate patient medication dosage Calcium 9.0 8.6 - 10.0 mg/dL 09/26/2017 11:57 AM T [facility] HISTORICAL RESULTS Total Protein 6.7 6.4 - 8.3 g/dL 09/26/2017 11:57 AM T [facility] HISTORICAL RESULTS Albumin 3.7 3.5 - 5.2 g/dL 09/26/2017 11:57 AM T [facility] HISTORICAL RESULTS Globulin 3.0 2.3 - 3.5 gm/dL 09/26/2017 11:57 AM T [facility] HISTORICAL RESULTS Albumin/Globulin Ratio 1.2 1.1 - 1.8 09/26/2017 11:57 AM T [facility] HISTORICAL RESULTS Total Bilirubin 0.2 0.0 - 1.2 mg/dL 09/26/2017 11:57 AM T [facility] HISTORICAL RESULTS AST 16 0 - 32 U/L 09/26/2017 11:[address] [facility] HISTORICAL RESULTS ALT 15 0 - 33 U/L 09/26/2017 11:[address] [facility] HISTORICAL RESULTS Alkaline Phosphatase 110(H) 45 - 87 U/L 09/26/2017 11:[address] [facility] HISTORICAL RESULTS 09/26/2017 11:1 1 AM CDT 09/26/2017 11:21 AM CDT Jennifer Villatoro MD LAB BLOOD ORDERABLES Fi nal Result [facility] HISTORICAL RESULTS * (ABNORMAL) CBC with auto differential (09/26/2017 11:11 AM CDT) WBC 11.0(H) 3.5 - 10.5 x10 3/ul 09/26/2017 11:[address] [facility] HISTORICAL RESULTS RBC 4.57 3.76 - 4.80 x10 6/ul 09/26/2017 11:[address] [facility] HISTORICAL RESULTS Hemoglobin 11.4 11.0 - 15.0 g/dL 09/26/2017 11:[address] [facility] HISTORICAL RESULTS Hct 36.4 33.0 - 43.0 % 09/26/2017 11:[address] [facility] HISTORICAL RESULTS MCV 79.6(L) 80.0 - 97.0 fl 09/26/2017 11:[address] [facility] HISTORICAL RESULTS MCH 24.9(L) 27.0 - 31.2 pg 09/26/2017 11:[address] [facility] HISTORICAL RESULTS MCHC 31.3(L) 31.8 - 35.4 g/dl 09/26/2017 11:[address] [facility] HISTORICAL RESULTS RDW 12.6 11.6 - 14.8 % 09/26/2017 11:[address] [facility] HISTORICAL RESULTS Plt Count 220 150 - 450 X10 3/ul 09/26/2017 11:[address] [facility] HISTORICAL RESULTS MPV 10.7(H) 7.4 - 10.4 fl 09/26/2017 11:26 AM [facility]IST[facility] RES[facility] Neut % 64.4 37.0 - 85.0 % 09/26/2017 11:26 AM [facility]IST[facility] RESULTS Immature Gran % 1.9 0.0 - 3.0 % 09/26/2017 11:[address] [facility] HISTORICAL RESULTS Lymph % 25.2 5.0 - 45.0 % 09/26/2017 11:[address] [facility] HISTORICAL RESULTS [place] % 7.1 3.0 - 15.0 % 09/26/2017 11:26 AM [facility] HISTORICAL RESULTS Eos % 1.2 0.0 - 7.0 % 09/26/2017 11:[address] [facility] HISTORICAL RESULTS Baso % 0.2 0.0 - 2.0 % 09/26/2017 11:[address] [facility] HISTORICAL RESULTS Absolute Neuts (auto) 7.1 1.7 - 8.7 x10 3/ul 09/26/2017 11:26 AM [facility] HISTORICAL RESULTS Immature Gran # 0.2 0.0 - 0.3 x10 3/ul 09/26/2017 11:26 AM [facility] HISTORICAL RESULTS Absolute Lymphs (auto) 2.8 0.2 - 4.6 x10 3/ul 09/26/2017 11:26 AM [facility] H[facility] RESULTS Absolute Monos (auto) 0.8 0.1 - 1.5 x10 3/ul 09/26/2017 11:26 AM CDT [facility] HISTORICAL RESULTS Absolute Eos (auto) 0.1 0.0 - 0.7 x10 3/ul 09/26/2017 11:[address] [facility] HISTORICAL RESULTS Absolute Basos (auto) 0.0 0.0 - 0.2 x10 3/ul 09/26/2017 11:[address] [facility] HISTORICAL RESULTS Nucleat RBC Rel Count 0.0 0 - 3 #/100WBC 09/26/2017 11:[address] [facility] HISTORICAL RESULTS Absolute Nucleated RBC 0.00 x10 3/ul 09/26/2017 11:[address] [facility] HISTORICAL RESULTS Absolute Neutrophils 7300 200 - 8000 /ul 09/26/2017 11:[address] [facility] HISTORICAL RESULTS 09/26/2017 11:1 1 AM CDT 09/26/2017 11:21 AM CDT Jennifer Villatoro MD LAB BLOOD ORDERABLES Fi nal Result [facility] HISTORICAL RESULTS * (ABNORMAL) Urinalysis reflex to microscopic and culture (09/26/2017 11:00 AM CDT) Ur Collection Type CLEAN CATCH 09/26/2017 11:[address] [facility] HISTORICAL RESULTS Ur Culture Indicated? C&S NOT INDICATED 09/26/2017 11:[address] [facility] HISTORICAL RESULTS Urine Color YELLOW YELLOW 09/26/2017 11:[address] [facility] HISTORICAL RESULTS Urine Clarity CLEAR CLEAR 09/26/2017 11:[address] [facility] HISTORICAL RESULTS Urine Glucose (UA) NORMAL NORMAL mg/dL 09/26/2017 11:[address] [facility] HISTORICAL RESULTS Urine Bilirubin NEGATIVE NEGATIVE mg/dl 09/26/2017 11:[address] [facility] HISTORICAL RESULTS Urine Ketones NEGATIVE NEGATIVE mg/dL 09/26/2017 11:[address] [facility] HISTORICAL RESULTS Ur Specific [place] 1.016 1.005 - 1.025 09/26/2017 11:[address] [facility] HISTORICAL RESULTS Urine Blood NEGATIVE NEGATIVE mg/dl 09/26/2017 11:47 AM T [facility] HISTORICAL RESULTS Urine pH 7.0 5.0 - 8.0 09/26/2017 11:47 AM T [facility] HISTORICAL RESULTS Urine Protein NEGATIVE NEGATIVE mg/dL 09/26/2017 11:47 AM T [facility] HISTORICAL RESULTS Urine Urobilinogen NORMAL NORMAL mg/dL 09/26/2017 11:47 AM T [facility] HISTORICAL RESULTS Urine Nitrite NEGATIVE NEGATIVE 09/26/2017 11:47 AM T [facility] HISTORICAL RESULTS Ur Leukocyte Esterase 25(H) NEGATIVE Sammie/ul 09/26/2017 11:47 AM T [facility] HISTORICAL RESULTS Ur Microscopic Review Indicated or Ordered 09/26/2017 11:47 AM T [facility] HISTORICAL RESULTS Urine RBC 2 0 - 2 /HPF 09/26/2017 11:47 AM T [facility] HISTORICAL RESULTS Urine WBC 7 0 - 2 /HPF 09/26/2017 11:47 AM T [facility] HISTORICAL RESULTS Urine Mucus RARE /LPF 09/26/2017 11:47 AM T [facility] HISTORICAL RESULTS Ur Squamous Epith Cells Few /LPF 09/26/2017 11:[address] [facility] HISTORICAL RESULTS 09/26/2017 11:0 0 AM CDT 09/26/2017 11:24 AM CDT Narrative [facility] HISTORICAL RESULTS - 09/26/2017 11:47 AM CDT Indication(s) for ordering ? Jennifer Villatoro MD LAB MICROBIOLOGY - [facility] ORDERABLES Final Result [facility] [place] HISTORICAL RESULTS * Protein / creatinine ratio, urine, random (09/26/2017 11:00 AM CDT) Ur Random Creatinine 81.7 mg/dL 09/26/2017 11:56 AM T [facility] [place] HISTORICAL RESULTS Comment: Reference Range First morning urine: Females 28 - 217 mg/dLRandom Specimen: ??No reference ranges U Random Total Protein 11 0 - 12 mg/dL 09/26/2017 11:56 AM T [facility] [place] HISTORICAL RESULTS Protein/Creatin in Ratio 0.13 09/26/2017 11:56 AM CDT [facility] [place] HISTORICAL RESULTS Comment:Random Specimen: No reference ranges 09/26/2017 11:0 0 AM CDT 09/26/2017 11:24 AM CDT [facility] - 09/26/2017 11:56 AM CDT Collected By JS Jennifer Villatoro MD LAB URINE ORDERABLES Fi nal Result [facility] [place] HISTORICAL RESULTS documented in this encounter Visit Diagnoses Diagnosis Other specified diseases and conditions complicating , childbirth and the puerperium 34 weeks gestation of documented in this encounter
--- OUTSIDE RECORDS SUMMARY | 2024-03-15 18:53 | XMS_ITS | Encounter Summary ---
Author Organization [facility] Healthcare Address [address] [place] [address] Care Team Providers Care Sql Ssrs Developer Name Role Phone Unavailable Primary Care Provider Unavailabl e Encounter Details Date Type Department Care Team (Latest Contact Info) Description 03/23/2017 3:45 AM SOLUTIONS SALES CONSULTANT - 03/23/2017 6:35 AM SOLUTIONS SALES CONSULTANT Hospital Encounter [facility] Mumtaz Betts MD [address] [facility] [address] Infection of urinary tract in in first [...] Comments Blood Pressure 103/53 03/23/2017 3:58 AM SOLUTIONS SALES CONSULTANT Pulse 70 03/23/2017 3:58 AM SOLUTIONS SALES CONSULTANT Temperature 36.5 ??C (97.7 ??F) 03/23/2017 3:58 AM CS T Respiratory Rate - - Oxygen Saturation 99% 03/23/2017 3:58 AM SOLUTIONS SALES CONSULTANT Inhaled Oxygen Concentration - - Weight 19.5 kg (43 lb) 03/23/2017 3:58 AM SOLUTIONS SALES CONSULTANT Height 160 cm (5' 3 ) 03/23/2017 3:58 AM SOLUTIONS SALES CONSULTANT Body Mass Index 7.62 03/23/2017 3:58 AM SOLUTIONS SALES CONSULTANT Body Mass Index Percentile 0.00% 03/23/2017 3:5 8 AM SOLUTIONS SALES CONSULTANT Growth Chart: [facility] (Girls, 2- 20 Years) documented in this encounter Plan of Treatment Not on file documented as of this encounter Procedures Procedure Name Priority Date/Time Associated Diagnosis Comments MICROBIOLOGY SPECIMEN REPORT (CONVERTED) Routine 03/23/2017 4:05 AM SOLUTIONS SALES CONSULTANT URINALYSIS AND REFLEX TO MICROSCOPIC AND CULTURE Routine 03/23/2017 4:05 AM SOLUTIONS SALES CONSULTANT documented in this encounter Results * Microbiology Specimen Report (Converted) (03/23/2017 4:05 AM SOLUTIONS SALES CONSULTANT) 03/23/2017 4:05 AM SOLUTIONS SALES CONSULTANT 03/23/2017 4:15 AM SOLUTIONS SALES CONSULTANT [facility] HISTORICAL RESULTS - 03/23/2017 4:05 AM SOLUTIONS SALES CONSULTANT Microbiology Specimen Report (Converted) SPECIMEN [id number] ?? COLLECTED: 2017-03-23 04:05:00 TW ?? REQ#: [id number] REQUESTING DR: Gm Cruz MD ?? SOURCE: URINE ?? SP DESC: CLEAN CATC --- PROCEDURE --- ?--- RESULT --- ?? CULTURE URINE ??(Final) ??- ??Performed at [facility] ?* COLONY COUNT: 40,000 CFU/ml ?* OTHER [...] ?? N/R=No Report ?KERRI =Beta Lactamase - [facility] ? [address] [facility] ? [place] [address] ? Markus Royal MD Procedure Note 06/14/2018 Microbiology Specimen Report (Converted) SPECIMEN [id number] COLLECTED: 2017-03-23 04:05:00 TW REQ#:[id number] REQUESTING DR: Gm Cruz MD SOURCE: URINE SP DESC: CLEAN CATC --- PROCEDURE --- --- RESULT --- CULTURE URINE (Final) - Performed at [facility] * COLONY COUNT: 40,000 CFU/ml * OTHER [...] Dependent N/R=No Report KERRI =Beta Lactamase - [address] [address] Markus Royal MD us Gm Cruz MD LAB BLOOD ORDERABLES Final Re sult [employer] HISTORICAL RESULTS * (ABNORMAL) Urinalysis reflex to microscopic and culture (03/23/2017 4:05 AM SOLUTIONS SALES CONSULTANT) Ur Collection Type CLEAN CATCH 03/23/2017 5:20 AM [facility] [employer] HISTORICAL RESULTS Ur Culture Indicated? C&S INDICATED 03/23/2017 5:20 AM [facility] [employer] HISTORICAL RESULTS Comment:Culture report to dawna. Urine Color YELLOW YELLOW 03/23/2017 5:20 AM SOLUTIONS SALES CONSULTANT [employer] HISTORICAL RESULTS Urine Clarity CLOUDY CLEAR 03/23/2017 5:20 AM SOLUTIONS SALES CONSULTANT [employer] HISTORICAL RESULTS Urine Glucose (UA) NORMAL NORMAL mg/dL 03/23/2017 5:20 AM [facility] [employer] HISTORICAL RESULTS Urine Bilirubin NEGATIVE NEGATIVE mg/dl 03/23/2017 5:20 AM SOLUTIONS SALES CONSULTANT [employer] HISTORICAL RESULTS Urine Ketones NEGATIVE NEGATIVE mg/dL 03/23/2017 5:20 AM SOLUTIONS SALES CONSULTANT [facility] [employer] HISTORICAL RESULTS Ur Specific [place] 1.026(H) 1.005 - 1.025 03/23/2017 5:20 AM SOLUTIONS SALES CONSULTANT [employer] HISTORICAL RESULTS Urine Blood >=1.0 NEGATIVE mg/dl 03/23/2017 5:20 AM [facility] [employer] HISTORICAL RESULTS Urine pH 6.0 5.0 - 8.0 03/23/2017 5:20 AM [facility] [employer] HISTORICAL RESULTS Urine Protein 100(H) NEGATIVE mg/dL 03/23/2017 5:20 AM [facility] [employer] HISTORICAL RESULTS Urine Urobilinogen NORMAL NORMAL mg/dL 03/23/2017 5:20 AM [employer] HISTORICAL RESULTS Urine Nitrite NEGATIVE NEGATIVE 03/23/2017 5:20 AM [employer] HISTORICAL RESULTS Ur Leukocyte Esterase 250(H) NEGATIVE Sammie/ul 03/23/2017 5:20 AM [employer] HISTORICAL RESULTS Ur Microscopic Review Indicated or Ordered 03/23/2017 5:20 AM [employer] HISTORICAL RESULTS Urine RBC 249 0 - 2 /HPF 03/23/2017 5:20 AM SOLUTIONS SALES CONSULTANT [employer] HISTORICAL RESULTS Urine WBC 1666 0 - 2 /HPF 03/23/2017 5:20 AM SOLUTIONS SALES CONSULTANT [facility] HISTORICAL RESULTS Urine WBC Clumps Marked /HPF 03/23/2017 5:20 AM SOLUTIONS SALES CONSULTANT [facility] HISTORICAL RESULTS Urine Mucus Marked /LPF 03/23/2017 5:20 AM SOLUTIONS SALES CONSULTANT [facility] HISTORICAL RESULTS 03/23/2017 4:05 AM SOLUTIONS SALES CONSULTANT 03/23/2017 4:15 AM SOLUTIONS SALES CONSULTANT Narrative [facility] HISTORICAL RESULTS - 03/23/2017 5:20 AM SOLUTIONS SALES CONSULTANT Indication(s) for ordering ? Increased freq/urgency ?? us Gm Cruz MD LAB MICROBIOLOGY - GENERAL OR DERABLES Final Result [facility] HISTORICAL RESULTS documented in this encounter Visit Diagnoses Diagnosis Infection of urinary tract in in first trimester 8 weeks gestation of documented in this encounter
--- OUTSIDE RECORDS SUMMARY | 2024-03-15 18:53 | XMS_ITS | Encounter Summary ---
Author Organization [facility] Healthcare Address [address] [place] [address] Care Team Providers Care Right Of Way Buyer Name Role Phone Unavailable Primary Care Provider Unavailabl e Encounter Details Date Type Department Care Team (Latest Contact Info) Description 05/17/2016 11:35 PM ENGINEER AND GEOLOGIST - 05/18/2016 1:15 AM ENGINEER AND GEOLOGIST [facility] [address] [place] [address] False labor before 37 completed weeks of [...] Comments Blood Pressure 108/56 05/17/2016 11:45 PM ENGINEER AND GEOLOGIST Pulse 80 05/17/2016 11:45 PM ENGINEER AND GEOLOGIST Temperature 36.8 ??C (98.2 ??F) 05/17/2016 11:[address] Respiratory Rate - - Oxygen Saturation 97% 05/17/2016 11:45 PM ENGINEER AND GEOLOGIST Inhaled Oxygen Concentration - - Weight 53.1 kg (117 lb) 05/17/2016 11:45 PM ENGINEER AND GEOLOGIST Height 160 cm (5' 3 ) 05/17/2016 11:45 PM ENGINEER AND GEOLOGIST Body Mass Index 20.73 05/17/2016 11:45 PM ENGINEER AND GEOLOGIST Body Mass Index Percentile 44.70% 05/17/2016 11: 45 PM ENGINEER AND GEOLOGIST Growth Chart: [facility] (Girls, 2- 20 Years) documented in this encounter Plan of Treatment Not on file documented as of this encounter Procedures Procedure Name Priority Date/Time Associated Diagnosis Comments URINALYSIS AND REFLEX TO MICROSCOPIC AND CULTURE Routine 05/18/2016 12:15 AM ENGINEER AND GEOLOGIST documented in this encounter Results * (ABNORMAL) Urinalysis reflex to microscopic and culture (05/18/2016 12:15 AM ENGINEER AND GEOLOGIST) Ur Collection Type CLEAN CATCH 05/18/2016 12:58 AM ENGINEER AND GEOLOGIST [employer] HISTORICAL RESULTS Ur Culture Indicated? C&S NOT INDICATED 05/18/2016 12:58 AM [employer] HISTORICAL RESULTS Urine Color YELLOW YELLOW 05/18/2016 12:58 AM ENGINEER AND GEOLOGIST [employer] HISTORICAL RESULTS Urine Clarity CLEAR CLEAR 05/18/2016 12:58 AM ENGINEER AND GEOLOGIST [employer] HISTORICAL RESULTS Urine Glucose (UA) NORMAL NORMAL mg/dL 05/18/2016 12:58 AM [employer] HISTORICAL RESULTS Urine Bilirubin NEGATIVE NEGATIVE mg/dl 05/18/2016 12:58 AM [employer] HISTORICAL RESULTS Urine Ketones NEGATIVE NEGATIVE mg/dL 05/18/2016 12:58 AM [employer] HISTORICAL RESULTS Ur Specific [place] 1.008 1.005 - 1.025 05/18/2016 12:58 AM [employer] HISTORICAL RESULTS Urine Blood NEGATIVE NEGATIVE mg/dl 05/18/2016 12:58 AM [employer] HISTORICAL RESULTS Urine pH 6.0 5.0 - 8.0 05/18/2016 12:58 AM [employer] HISTORICAL RESULTS Urine Protein NEGATIVE NEGATIVE mg/dL 05/18/2016 12:58 AM [employer] HISTORICAL RESULTS Urine Urobilinogen NORMAL NORMAL mg/dL 05/18/2016 12:58 AM [employer] HISTORICAL RESULTS Urine Nitrite NEGATIVE NEGATIVE 05/18/2016 12:58 AM [employer] HISTORICAL RESULTS Ur Leukocyte Esterase 25(H) NEGATIVE Sammie/ul 05/18/2016 12:58 AM ENGINEER AND GEOLOGIST [employer] HISTORICAL RESULTS Ur Microscopic Review Indicated or Ordered 05/18/2016 12:58 AM [employer] HISTORICAL RESULTS Urine RBC 1 0 - 2 /HPF 05/18/2016 12:58 AM [employer] HISTORICAL RESULTS Urine WBC 2 0 - 2 /HPF 05/18/2016 12:58 AM ENGINEER AND GEOLOGIST [facility] HISTORICAL RESULTS Urine Bacteria Mod /HPF 05/18/2016 12:58 AM ENGINEER AND GEOLOGIST [facility] HISTORICAL RESULTS Urine Mucus RARE /LPF 05/18/2016 12:58 AM ENGINEER AND GEOLOGIST [facility] HISTORICAL RESULTS Ur Squamous Epith Cells Rare /LPF 05/18/2016 12:58 AM ENGINEER AND GEOLOGIST [facility] HISTORICAL RESULTS 05/18/2016 12:1 5 AM ENGINEER AND GEOLOGIST 05/18/2016 12:41 AM ENGINEER AND GEOLOGIST Narrative [facility] HISTORICAL RESULTS - 05/18/2016 12:58 AM ENGINEER AND GEOLOGIST us Zachery Sullivan MD LAB MICROBIOLOGY - GENER AL ORDERABLES Final Result [facility] HISTORICAL RESULTS documented in this encounter Visit Diagnoses Diagnosis False labor before 37 completed weeks of gestation 36 weeks gestation of documented in this encounter
--- OUTSIDE RECORDS SUMMARY | 2024-03-15 18:53 | XMS_ITS | Encounter Summary ---
Author Organization [facility] Healthcare Address [address] [place] [address] Care Team Providers Care Note Taker Name Role Phone Unavailable Primary Care Provider Unavailabl e Encounter Details Date Type Department Care Team (Late st Contact Info) Description 10/09/2017 9:07 PM CDT - 10/09/2017 11:37 PM CDT Hospital Encounter [facility] Asia Dewey MD [address] [place] [address] Other specified diseases and conditions complicating , [...] 9:45 PM CDT) Membranes Rupture NEGATIVE NEGATIVE Comment: A negative result does not assure the absence of membrane rupture. Results should be used in conjunction with other clinical information. 10/09/2017 9:45 PM CDT 10/09/2017 9:52 PM CDT us Asia Dewey MD LAB BLOOD ORDERABLES Estefany lindsey Result [facility] HISTORICAL RESULTS documented in this encounter Visit Diagnoses Diagnosis Other specified diseases and conditions complicating , childbirth and the puerperium 36 weeks gestation of documented in this encounter
--- OUTSIDE RECORDS SUMMARY | 2024-03-15 18:53 | XMS_ITS | Encounter Summary ---
Author Organization [facility] Healthcare Address [address] [place] [address] Care Team Providers Care Whipped Topping Supervisor Name Role Phone Unavailable Primary Care Provider Unavailabl e Encounter Details Date Type Department Care Team (Late st Contact Info) Description 06/12/2016 11:00 AM CDT - 06/22/2016 11:00 AM CDT Hospital Encounter [facility] Asia Dewey MD [address] [place] [address] Encounter for care or examination of lactating [...]
--- OUTSIDE RECORDS SUMMARY | 2024-03-15 18:53 | XMS_ITS | Encounter Summary ---
Author Organization [facility] Healthcare Address [address] [place] [address] Care Team Providers Care Pmo Consultant Name Role Phone Unavailable Primary Care Provider Unavailabl e Encounter Details Date Type Department Care Team (Latest Contact Info) Description 06/06/2016 9:54 AM CDT - 06/06/2016 12:37 PM CDT Hospital Encounter [facility] No Martinez, DO [address] [place] [address] Other specified diseases and conditions complicating , [...] 06/06/2016 10: 11 AM CDT Growth Chart: [facility] (Girls, 2- 20 Years) documented in [...] 10.2 x10 3/ul 06/06/2016 11:13 AM CDT [employer] HISTORICAL RESULTS RBC 4.46 3.76 - 4.80 x10 6/ul 06/06/2016 11:13 AM CDT [employer] HISTORICAL RESULTS Hemoglobin 12.1 11.0 - 15.0 g/dl 06/06/2016 11:13 AM CDT [employer] HISTORICAL RESULTS Hct 37.8 33.0 - 43.0 % 06/06/2016 11:13 AM CDT [employer] HISTORICAL RESULTS MCV 84.8 80.0 - 97.0 fl 06/06/2016 11:13 AM CDT [employer] HISTORICAL RESULTS MCH 27.1 27.0 - 31.2 pg 06/06/2016 11:13 AM CDT [employer] HISTORICAL RESULTS MCHC 32.0 31.8 - 35.4 g/dl 06/06/2016 11:13 AM CDT [employer] HISTORICAL RESULTS RDW 16.1(H) 11.6 - 14.8 % 06/06/2016 11:13 AM CDT [employer] HISTORICAL RESULTS Plt Count 162 124 - 400 x10 3/ul 06/06/2016 11:13 AM CDT [employer] HISTORICAL RESULTS MPV 11.5(H) 7.4 - 10.4 fl 06/06/2016 11:13 AM CDT [employer] HISTORICAL RESULTS Neut % 76.1 37.0 - 85.0 % 06/06/2016 11:13 AM CDT [facility] HISTORICAL RESULTS Immature Gran % 0.8 0.0 - 3.0 % 06/06/2016 11:13 AM T [facility] HISTORICAL RESULTS Lymph % 16.0 5.0 - 45.0 % 06/06/2016 11:13 AM T [facility] HISTORICAL RESULTS [place] % 6.0 3.0 - 15.0 % 06/06/2016 11:13 AM T [facility] HISTORICAL RESULTS Eos % 0.7 0.0 - 7.0 % 06/06/2016 11:13 AM T [facility] HISTORICAL RESULTS Baso % 0.4 0.0 - 2.0 % 06/06/2016 11:13 AM T [facility] HISTORICAL RESULTS Absolute Neuts (auto) 8.1 1.7 - 8.7 x10 3/ul 06/06/2016 11:13 AM T [facility] HISTORICAL RESULTS Immature Gran # 0.1 0.0 - 0.3 x10 3/ul 06/06/2016 11:13 AM T [facility] HISTORICAL RESULTS Absolute Lymphs (auto) 1.7 0.2 - 4.6 x10 3/ul 06/06/2016 11:13 AM T [facility] [place] HISTORICAL RESULTS Absolute Monos (auto) 0.6 0.1 - 1.5 x10 3/ul 06/06/2016 11:13 AM T [facility] HISTORICAL RESULTS Absolute Eos (auto) 0.1 0.0 - 0.7 x10 3/ul Absolute Basos (auto) 0.0 0.0 - 0.2 x10 3/ul 06/06/2016 11:0 4 AM CDT 06/06/2016 11:10 AM CDT us No Marroquin DO LAB BLOOD ORDERABLES Fin al Result [facility] HISTORICAL RESULTS * (ABNORMAL) Urinalysis reflex to microscopic and culture (06/06/2016 11:00 AM CDT) Ur Collection Type CLEAN CATCH Ur Culture Indicated? C&S NOT INDICATED Urine Color YELLOW YELLOW Urine Clarity HAZY CLEAR Urine Glucose (UA) NORMAL NORMAL mg/dL Urine Bilirubin NEGATIVE NEGATIVE mg/dl Urine Ketones NEGATIVE NEGATIVE mg/dL Ur Specific [place] 1.016 1.005 - 1.025 Urine Blood NEGATIVE [...] AM CDT 06/06/2016 11:28 AM CDT Narrative [facility] HISTORICAL RESULTS - 06/06/2016 11:44 AM CDT Indication(s) for ordering ? us No Marroquin DO LAB MICROBIOLOGY - GENER AL ORDERABLES Final Result [facility] HISTORICAL RESULTS documented in this encounter Visit Diagnoses Diagnosis Other specified diseases and conditions complicating , childbirth and the puerperium 39 weeks gestation of documented in this encounter
--- OUTSIDE RECORDS SUMMARY | 2024-03-15 18:53 | XMS_ITS | Encounter Summary ---
Author Organization [facility] Healthcare Address [address] [place] [address] Care Team Providers Care Driller Brake Lining Name Role Phone Unavailable Primary Care Provider Unavailabl e Encounter Details Date Type Department Care Team (Late st Contact Info) Description 10/10/2017 8:46 PM CDT - 10/12/2017 3:27 PM CDT Hospital Encounter [facility], Jennifer Mendez MD [address] [place] [address] Term delivery with labor, third trimester, fetus [...] CDT) Hemoglobin 10.2(L) 11.0 - 15.0 g/dL 10/11/2017 7:49 AM CDT [facility] HISTORICAL RESULTS Hct 32.2(L) 33.0 - 43.0 % 10/11/2017 7:49 AM CDT [facility] HISTORICAL RESULTS 10/11/2017 7:17 AM CDT 10/11/2017 7:46 AM CDT Jennifer Villatoro MD LAB BLOOD ORDERABLES Fi nal Result [facility] HISTORICAL RESULTS * Drug Screen, Urine (10/11/2017 3:00 AM [facility]) Ur Amphetamine Screen NEGATIVE NEGATIVE [...] Morphine, Codeine, Ethyl Morphine, ?Diacetylmorphine, 6-Acetylmorphine, Dihydrocodeine, ?Izwvcymh-[id number] and Hydrocodone Ur Oxycodone Screen NEGATIVE NEGATIVE 10/11 4:29 AM [facility] HISTORICAL RESULTS Comment:Cutoff Limit: 100 ng /mL Urine Creatinine/MONICA 9.8 mg/dL Comment:If Creatinine is < 4 0 mg/dL, recollection is suggested. 10/11/2017 3:00 AM CDT 10/11/2017 4:29 AM CDT Jennifer Villatoro MD LAB URINE ORDERABLES Fi nal Result Performing Organization Address [facility] de Phone Number [facility] HISTORICAL RESULTS * (ABNORMAL) Blood gas, arterial, cord (10/10/2017 10:11 PM CDT) Cord ABG pH 7.395(H) 7.200 - 7.340 Cord ABG pCO2 37.6(L) 39.2 - 61.4 mmHg Cord ABG pO2 37.3(H) 9 - 19 mmHg Cord ABG HCO3 22.5 18.4 - 25.6 mmol/L Cord ABG Base Excess -1.5 -5.5 - 0.1 mmol/L Cord ABG O2 Sat 80.4(H) 47 - 67 % Negative Cleaner ID AEM 10/10/2017 10:1 1 PM CDT 10/10/2017 10:22 PM CDT Jennifer Villatoro MD LAB BLOOD ORDERABLES Fi nal Result Performing Organization Address [facility]/ZIP Co de Phone Number [facility] HISTORICAL RESULTS * (ABNORMAL) Blood gas, venous, cord (10/10/2017 10:10 PM CDT) Pathologist [facility] Cord VBG pH 7.395 7.280 - 7.400 Cord VBG pCO2 37.6 32.8 - 48.6 mmHg Cord VBG pO2 37.7(H) 23 - 33 mmHg Cord VBG HCO3 22.6 18.9 - 23.9 mmol/L Cord VBG Base Excess -1.4 -4.4 - -0.4 mmol/L Cord VBG O2 Sat 80.5 72 - 92 % Negative Cleaner ID AEM 10/10/2017 10:1 0 PM CDT 10/10/2017 10:24 PM CDT Jennifer Villatoro MD LAB BLOOD ORDERABLES Fi nal Result [facility] HISTORICAL RESULTS * RPR, serum (10/10/2017 8:58 PM CDT) [facility] Treponemal IgG NONREACTIVE NONREACTIVE 10/11/19 18 11:33 PM T [facility] HISTORICAL RESULTS Comment: [employer] Centaur immunoassay to determine antibodies to Treponema pallidum. 10/10/2017 8:58 PM CDT 10/10/2017 9:02 PM CDT Jennifer Villatoro MD LAB MICROBIOLOGY - GENE RAL ORDERABLES Final Result [facility] HISTORICAL RESULTS * (ABNORMAL) [...] Lymph % 9.0 5.0 - 45.0 % [place] % 5.1 3.0 - 15.0 % Eos [...] Nucleated RBC 0.00 x10 3/ul Absolute Neutrophils 68212(H) 200 - 8000 /ul 10/10/2017 8:58 PM CDT 10/10/2017 9:02 PM CDT Jennifer Villatoro MD LAB BLOOD ORDERABLES Fi nal Result [facility] HISTORICAL RESULTS * PROCEDURE - RESULT (10/10/2017 [...]
--- OUTSIDE RECORDS SUMMARY | 2024-03-15 18:53 | XMS_ITS | Encounter Summary ---
Author Organization [facility] Healthcare Address [address] [place] [address] Care Team Providers Care Credit Risk Review Officer Name Role Phone Shana Easton MD Primary Care Provider [phone] Encounter Details Date Type Department Care Team (Late st Contact Info) Description 08/05/2018 8:27 PM CDT - 08/05/2018 10:37 PM CDT Hospital Encounter [facility] Emergency Department [address] [place] [address] Unknown, Tania Mckay, ANIMAL NURSE [address] [facility] [address] [address] Discharge Disposition: Discharge to home [...] ?? Age: 17 ?Sex: Female ? MR#: [id number] ?? Loc: ? RADIOLOGY REPORT ?? Order #[id number] ?? CT Scan ? CT Abd/Pelvis WO [...] T: ??08/05/2018 10:00 PM ? Report ID: [id number] ?? Reading Location: ??[id number] ? REPORT ELECTRONICALLY SIGNED IN OTHER VENDOR SYSTEM ?? Resulting Agency Comment E Procedure Note ElvinRandall styles DO - 08/05/2018 Patient Name: DIOGENES CARTER Dr: Tania Luna CNP, D.O.B: 2000 Exam Date: 08/05/182116 Age: 17 Sex: Female MR#: [id number] Loc: RADIOLOGY REPORT Order #[id number] CT Scan CT Abd/Pelvis WO IV Contrast [...] by Randall Muniz D.O. : Report ID: [id number] Reading Location: [place] [address] REPORT ELECTRONICALLY SIGNED IN OTHER VENDOR SYSTEM Tania Luna ANIMAL NURSE IMG CT PROCEDURES Final Resu lt * (ABNORMAL) Comprehensive metabolic panel (08/05/2018 9:13 PM CDT) Sodium 143 135 - 145 mmol/L [facility] Potassium 3.6 3.3 - 5.1 mmol/L [facility] Chloride 105 96 - 108 mmol/L [facility] Carbon Dioxide 25 22 - 32 mmol/L [facility] Anion Gap 13 7 - 16 [facility] Glucose 85 70 - 100 mg/dL [facility] BUN 9 8 - 25 mg/dL [facility] Creatinine 0.5 0.5 - 1.1 mg/dL [facility] Comment: NOTE: Estimated GFR (Cockroft-Gault) will NOT be calculated unless patient Height and Weight were entered. Also, Kidney Disease Stage (GFR) and Estimated GFR (Cockroft-Gault) will NOT be calculated if Creatinine result is <0.2. Kidney Disease Stage >90 mL/MIN [facility] Comment: NOTE; ??The GFR is an [...] on dialysis Est GFR (Cockcroft-G) 135 ml/MIN [facility] Comment: Estimated GFR(Cockroft-Gault)is used to calculate patient medication dosage Calcium 9.6 8.6 - 10.3 mg/dL [facility] Total Protein 7.6 6.4 - 8.3 g/dL [facility] Albumin 5.0 3.5 - 5.0 g/dL [facility] Globulin 2.6 2.3 - 3.5 gm/dL [facility] Albumin/Globulin Ratio 1.9(H) 1.1 - 1.8 [facility] Total Bilirubin 0.4 0.0 - 1.2 mg/dL [facility] AST 11 0 - 32 U/L [facility] ALT 13 0 - 33 U/L [facility] Alkaline Phosphatase 63 35 - 104 U/L [facility] 08/05/2018 9:13 PM CDT 08/05/2018 9:27 PM CDT Narrative Resulting Agency Comment ER Tania Luna ANIMAL NURSE LAB BLOOD ORDERABLES Final R esult [facility] [address] [phone] * (ABNORMAL) CBC with auto differential (08/05/2018 9:13 PM CDT) WBC 7.2 3.8 - 9.9 X10 3/ul [facility] RBC 4.88 3.90 - 5.20 x10 6/ul [facility] Hemoglobin 13.5 11.9 - 15.5 g/dL [facility] Hct 42.5 35.6 - 45.5 % [facility] MCV 87.1 81.3 - 96.4 fl [facility] MCH 27.7 27.1 - 33.3 pg [facility] MCHC 31.8(L) 32.3 - 35.7 g/dl [facility] RDW 12.9 11.1 - 14.9 % [facility] Plt Count 234 150 - 400 x10 3/ul [facility] MPV 10.6 9.1 - 12.3 fl [facility] Neut % 59.1 % [facility] Immature Gran % 0.3 % [facility] Lymph % 31.2 % [facility] - [facility] [place] % 7.8 % [facility] AST - [employer] Eos % 1.0 % [facility] - [employer] [place] % 0.6 % [facility] NEUTROPHIL ABS # 4.3 1.7 - 6.5 x10 3/ul [facility] Immature Gran # 0.0 0.0 - 0.1 x10 3/ul [facility] Absolute Lymphs (auto) 2.2 0.8 - 3.3 x10 3/ul [facility] Absolute Monos (auto) 0.6 0.2 - 0.8 x10 3/ul [facility] Absolute Eos (auto) 0.1 0.0 - 0.5 x10 3/ul [facility] BASOPHIL ABS # 0.0 0.0 - 0.1 x10 3/ul [facility] Nucleat RBC Rel Count 0.0 #/100WBC [facility] NRBC abs 0.00 0.00 - 0.01 x10 3/ul [facility] Absolute Neutrophils 4,300 200 - 8,000 /ul [facility] 08/05/2018 9:13 PM CDT 08/05/2018 9:27 PM CDT Narrative Resulting Agency Comment ER Tania Luna ANIMAL NURSE LAB BLOOD ORDERABLES Final R esult [address] [phone] * (ABNORMAL) Urinalysis reflex to microscopic and culture (08/05/2018 8:55 PM CDT) Ur Collection Type CLEAN CATCH [facility] Ur Culture Indicated? C S NOT INDICATED [facility] Urine Color YELLOW YELLOW [facility] Urine Clarity CLEAR CLEAR [facility] Urine Glucose (UA) NORMAL NORMAL mg/dL [facility] Urine Bilirubin NEGATIVE NEGATIVE mg/dl [facility] Urine Ketones NEGATIVE NEGATIVE mg/dL [facility] Ur Specific Carnation 1.009 1.005 - 1.025 [facility] Urine Blood 0.03(A) NEGATIVE mg/dl [facility] Urine pH 6.0 5.0 - 8.0 [facility] Urine Protein NEGATIVE NEGATIVE mg/dL [facility] Urine Urobilinogen NORMAL NORMAL mg/dL [facility] Urine Nitrite NEGATIVE NEGATIVE [facility] Ur Leukocyte Esterase NEGATIVE NEGATIVE Sammie/ul [facility] Ur Microscopic Review Not Indicated [facility] 08/05/2018 8:55 PM CDT 08/05/2018 9:06 PM CDT Narrative [facility] - 08/05/2018 9:13 PM CDT Indication(s) for ordering ?? Dysuria dg Clean catch Resulting Agency Comment ER us Tania Luna ANIMAL NURSE LAB MICROBIOLOGY - GENERAL O RDERABLES Final Result Performing Organization Address City/State/[facility] Co de Phone Number [address] [phone] documented in this encounter Visit Diagnoses Not on filedocumented in this encounter Care Teams Credit Risk Review Officer Relationship Specialty Start Date End Date Shana Easton MD [address] [address] PCP - General 05/05/18 12/30/20 documented as of this encounter
--- OUTSIDE RECORDS SUMMARY | 2024-03-15 18:53 | XMS_ITS | Encounter Summary ---
Author Organization [facility] Healthcare Address [address] [place] [address] Care Team Providers Care Assistant Facility Manager Name Role Phone Unavailable Primary Care Provider Unavailabl e Encounter Details Date Type Department Care Team (Latest Contact Info) Description 05/21/2016 11:29 PM COST CONSULTANT - 05/22/2016 12:50 AM COST CONSULTANT Hospital Encounter [facility] No Martinez, DO [address] [place] [address] Other specified diseases and conditions complicating , [...] Comments Blood Pressure 115/62 05/21/2016 11:54 PM COST CONSULTANT Pulse 100 05/21/2016 11:54 PM COST CONSULTANT Temperature 36.6 ??C (97.8 ??F) 05/21/2016 11:[address] Respiratory Rate - - Oxygen Saturation - - Inhaled Oxygen Concentration - - Weight 53.5 kg (118 lb) 05/21/2016 11:54 PM COST CONSULTANT Height 160 cm (5' 3 ) 05/21/2016 11:54 PM COST CONSULTANT Body Mass Index 20.9 05/21/2016 11:54 PM COST CONSULTANT Body Mass Index Percentile 46.93% 05/21/2016 11: 54 PM COST CONSULTANT Growth Chart: [facility] (Girls, 2- 20 Years) documented in this encounter Plan of Treatment Not on file documented as of this encounter Visit Diagnoses Diagnosis Other specified diseases and conditions complicating , childbirth and the puerperium 36 weeks gestation of documented in this encounter
--- OUTSIDE RECORDS SUMMARY | 2024-03-15 18:53 | XMS_ITS | Encounter Summary ---
Author Organization [facility] Healthcare Address [address] [place] [address] Care Team Providers Care Fairing Man Name Role Phone Unavailable Primary Care Provider Unavailabl e Encounter Details Date Type Department Care Team (Latest Contact Info) Description 05/17/2017 12:10 PM ASSOCIATE JAVA DEVELOPER - 05/17/2017 3:00 PM ASSOCIATE JAVA DEVELOPER Hospital Encounter [facility] Joan Perez, CLINICAL TRANSPLANT COORDINATOR [address] [place] [address] Influenza due to identified novel influenza A [...] Comments Blood Pressure 101/54 05/17/2017 12:12 PM ASSOCIATE JAVA DEVELOPER Pulse 86 05/17/2017 12:12 PM ASSOCIATE JAVA DEVELOPER Temperature 36.5 ??C (97.7 ??F) 05/17/2017 1 2:12 PM ASSOCIATE JAVA DEVELOPER Respiratory Rate - - Oxygen Saturation 96% 05/17/2017 12: 12 PM ASSOCIATE JAVA DEVELOPER Inhaled Oxygen Concentration - - Weight 42.4 kg (93 lb 7.6 oz) 8 12:12 PM ASSOCIATE JAVA DEVELOPER Height 160 cm (5' 3 ) 05/17/2017 12:12 PM ASSOCIATE JAVA DEVELOPER Body Mass Index 16.56 05/17/2017 12:12 PM ASSOCIATE JAVA DEVELOPER Body Mass Index Percentile 0.81% 05/17 12:12 PM ASSOCIATE JAVA DEVELOPER Growth Chart: [facility] (Girls, 2- 20 Years) documented in this encounter Plan of Treatment Not on file documented as of this encounter Procedures Procedure Name Priority Date/Time Associated Diagnosis Comments INFLUENZA A/B ANTIGENS, RAPID Routine 05/17/2017 12:35 PM ASSOCIATE JAVA DEVELOPER XR CHEST 1 VIEW Routine 05/17/2017 12:00 AM ASSOCIATE JAVA DEVELOPER documented in this encounter Results * Influenza A/B antigens, rapid (05/17/2017 12:35 PM ASSOCIATE JAVA DEVELOPER) Influenza A Ag POSITIVE NEGATIVE 05/17/2017 1:22 PM ASSOCIATE JAVA DEVELOPER [facility] HISTORICAL RESULTS Influenza B Ag NEGATIVE NEGATIVE 05/17/2017 1:22 PM ASSOCIATE JAVA DEVELOPER [facility] HISTORICAL RESULTS Comment: A NEGATIVE RESULT DOES NOT ELIMINATE THE POSSIBILITY OF AN ?? INFLUENZA A OR B INFECTION. ??INADEQUATE SPECIMEN COLLECTION ?? OR IMPROPER SAMPLE HANDLING/TRANSPORT, OR LOW LEVELS OF ?? VIRAL SHEDDING MAY YIELD A FALSE NEGATIVE RESULT. 05/17/2017 12:3 5 PM ASSOCIATE JAVA DEVELOPER 05/17/2017 12:59 PM ASSOCIATE JAVA DEVELOPER Narrative [facility] HISTORICAL RESULTS - 05/17/2017 1:22 PM ASSOCIATE JAVA DEVELOPER Collected By dlr us Joan Livingston NP LAB MICROBIOLOGY - GENERAL SEBASTIAN DELGADO Final Result [facility] HISTORICAL RESULTS * XR Chest 1 View (05/17/2017 12:00 AM ASSOCIATE JAVA DEVELOPER) Anatomical Region Laterality Modality Body, Chest N/A Radiographic Jaelyn ging 05/17/2017 Impressions 05/17/2017 2:23 PM ASSOCIATE JAVA DEVELOPER ??No acute cardiopulmonary disease. THIS IS AN ELECTRONICALLY VERIFIED FINAL REPORT 05/17/2017 2:20 PM - Electronically signed by Tevin Veliz M.D. MP: ILA D: ??05/17/2017 2:20 PM T: ??05/17/2017 2:20 PM Report ID: [id number] Reading Location: ??[id number] [EOD] Narrative 05/17/2017 2:23 PM ASSOCIATE JAVA DEVELOPER EXAM DESCRIPTION: ??Chest 1 View COMPLETED DATE/TIME: [...] Tevin Veliz M.D. MP: ILA Report ID: [id number] Reading Location: [id number] [EOD] Joan Livingston NP IMG XR PROCEDURES Final Result documented in this encounter Visit Diagnoses Diagnosis Influenza due to identified novel influenza A virus with other respiratory manifestations Allergy status to other antibiotic agents status documented in this encounter
--- OUTSIDE RECORDS SUMMARY | 2024-03-15 18:53 | XMS_ITS | Encounter Summary ---
Author Organization [facility] Healthcare Address [address] [place] [address] Care Team Providers Care Monitor Tech Name Role Phone Unavailable Primary Care Provider Unavailabl e Encounter Details Date Type Department Care Team (Latest Contact Info) Description 08/29/2017 7:08 AM CDT Hospital Encounter [facility] Tim Loera MD [address] [place] [id number] Mass of lower outer quadrant of right [...] ??Maverick Smith M.D. ?? Maverick Smith M.D. [place]:ne 09:23 AM 09:23 AM [facility] [EOD] Narrative 08/29/2017 9:27 AM CDT [...] Smith M.D. [place]:renuka 09:23 AM 09:23 AM [facility] [EOD] Tim Loera MD IMG MAMMO [...] Smith M.D. [place]:renuka 09:23 AM 09:23 AM [facility] [EOD] Narrative 08/29/2017 9:26 AM CDT [...] Smith M.D. NH:renuka 09:23 AM 09:23 AM [facility] [EOD] Tim Loera MD [employer]MLexi MAMMO [...]
--- OUTSIDE RECORDS SUMMARY | 2024-03-15 18:53 | XMS_ITS | Encounter Summary ---
Author Organization [facility] Healthcare Address [address] [place] [address] Care Team Providers Care Vp Digital Marketing Social Media And Crm Name Role Phone Shana Easton MD Primary Care Provider [phone] Encounter Details Date Type Department Care Team (Late st Contact Info) Description 10/11/2018 2:19 AM CDT - 10/11/2018 3:55 AM CDT Hospital Encounter [facility] Emergency Department [address] [place] [address] Parmjit Vogt, DO [address] [facility] [place] [address] Unknown, Notinfile Discharge Disposition: Discharge [...] AM CDT) Ventricular Rate EKG/Min 69 BPM [facility] Atrial Rate 69 BPM [facility] OK-Interval (MSEC) 182 ms [facility] QRS-Interval (MSEC) 80 ms [facility] QT-Interval (MSEC) 378 ms [facility] QTc 405 ms [facility] P [place] 53 degrees [facility] R [place] 76 degrees [facility] T [place] 31 degrees [facility] Diagnosis Normal sinus rhythm Nonspecific T wave abnormality No previous ECGs available [facility] 10/11/2018 3:08 AM CDT 10/11/2018 6:03 PM CDT Narrative Resulting Agency Comment FATOUMATA us Parmjit Vogt DO ECG ORDERABLES Final Resul t [facility] * (ABNORMAL) Comprehensive metabolic panel (10/11/2018 3:06 AM CDT) Sodium 144 135 - 145 mmol/L [facility] Potassium 3.5 3.3 - 5.1 mmol/L [facility] Chloride 106 96 - 108 mmol/L [facility] Carbon Dioxide 25 22 - 32 mmol/L [facility] Anion Gap 13 7 - 16 [facility] Glucose 91 70 - 100 mg/dL [facility] BUN 9 8 - 25 mg/dL [facility] Creatinine 0.4(L) 0.5 - 1.1 mg/dL [facility] Comment: NOTE: Estimated GFR (Cockroft-Gault) will NOT be calculated unless patient Height and Weight were entered. Also, Kidney Disease Stage (GFR) and Estimated GFR (Cockroft-Gault) will NOT be calculated if Creatinine result is <0.2. Kidney Disease Stage >90 mL/MIN [facility] Comment: NOTE; ??The GFR is an [...] on dialysis Est GFR (Cockcroft-G) 163 ml/MIN [facility] Comment: Estimated GFR(Cockroft-Gault)is used to calculate patient medication dosage Calcium 9.5 8.6 - 10.3 mg/dL [facility] Total Protein 7.8 6.4 - 8.3 g/dL [facility] Albumin 5.0 3.5 - 5.0 g/dL [facility] Globulin 2.8 2.3 - 3.5 gm/dL [facility] Albumin/Globulin Ratio 1.8 1.1 - 1.8 [facility] Total Bilirubin 0.3 0.0 - 1.2 mg/dL [facility] AST 14 0 - 32 U/L [facility] ALT 14 0 - 33 U/L [facility] Alkaline Phosphatase 83 35 - 104 U/L [facility] 10/11/2018 3:06 AM CDT 10/11/2018 3:14 AM CDT Narrative Resulting Agency Comment ER us Parmjit Vogt DO LAB BLOOD ORDERAB[place] [address], [facility] [phone] * CBC with auto differential (10/11/2018 3:06 AM CDT) WBC 8.4 3.8 - 9.9 X10 3/ul [facility] RBC 4.75 3.90 - 5.20 x10 6/ul [facility] Hemoglobin 13.3 11.9 - 15.5 g/dL [facility] Hct 40.6 35.6 - 45.5 % [facility] MCV 85.5 81.3 - 96.4 fl [facility] MCH 28.0 27.1 - 33.3 pg [facility] MCHC 32.8 32.3 - 35.7 g/dl [facility] RDW 12.4 11.1 - 14.9 % [facility] Plt Count 255 150 - 400 x10 3/ul [facility] MPV 10.7 9.1 - 12.3 fl [facility] Neut % 52.9 % [facility] AST - [employer] Immature Gran % 0.2 % [facility] Lymph % 38.2 % [facility] [place] % 6.8 % [facility] Eos % 1.4 % [facility] - [employer] AUTO BASO % 0.5 % [facility] NEUTROPHIL ABS # 4.5 1.7 - 6.5 x10 3/ul [facility] Immature Gran # 0.0 0.0 - 0.1 x10 3/ul [facility] Absolute Lymphs (auto) 3.2 0.8 - 3.3 x10 3/ul [facility] Absolute Monos (auto) 0.6 0.2 - 0.8 x10 3/ul [facility] Absolute Eos (auto) 0.1 0.0 - 0.5 x10 3/ul [facility] BASOPHIL ABS # 0.0 0.0 - 0.1 x10 3/ul [facility] Nucleat RBC Rel Count 0.0 #/100WBC [facility] NRBC abs 0.00 0.00 - 0.01 x10 3/ul [facility] Absolute Neutrophils 4,500 200 - 8,000 /ul [facility] 10/11/2018 3:06 AM CDT 10/11/2018 3:14 AM CDT Narrative Resulting Agency Comment ER Parmjit Vogt DO LAB BLOOD ORDERABLES Final Result Performing Organization Address City/State/[facility] Co de Phone Number [address] [phone] * CT Head WO Contrast (10/11/2018 12:00 AM CDT) Anatomical Region Laterality Modality Head and Neck N/A Computed Tomogra phy 10/11/2018 3:28 AM CDT Narrative 10/11/2018 3:29 AM CDT Patient Name: DIOGENES CARTER ?Ordering Dr: Parmjit Vogt DO ?? D.O.B: 2000 ? Exam Date: 07/20/19 ?? 0000 ?? Age: 18 ?Sex: Female ? MR#: [id number] ?? Loc: ? RADIOLOGY REPORT ?? Order #[id number] ?? CT Scan ? CT Head WO [...] T: ??10/11/2018 3:29 AM ? Report ID: [id number] ?? Reading Location: ??[id number] ? REPORT ELECTRONICALLY SIGNED IN OTHER VENDOR SYSTEM ?? Resulting Agency Comment E Procedure Note Ronaldo Cook MD - 10/11/2018 Patient Name: DIOGENES CARTER Dr: Parmjit Vogt DO D.O.B: 2000 Exam Date: 10/11/18 0000 Age: 18 Sex: Female MR#: [id number] Loc: RADIOLOGY REPORT Order #[id number] CT Scan CT Head WO IV Contrast [...] Ronaldo Cook M.D. AR: NAVIN Report ID: [id number] Reading Location: [id number] REPORT ELECTRONICALLY SIGNED IN OTHER VENDOR SYSTEM Parmjit Vogt DO IMG CT PROCEDURES Final Res ult documented in this encounter Visit Diagnoses Not on filedocumented in this encounter Care Teams Vp Digital Marketing Social Media And Crm Relationship Specialty Start Date End Date Shana Easton MD [address] [address] PCP - General 05/05/18 12/30/20 documented as of this encounter
--- OUTSIDE RECORDS SUMMARY | 2024-03-15 18:53 | XMS_ITS | Encounter Summary ---
Author Organization [facility] Healthcare Address [address] [place] [address] Care Team Providers Care Boat Laborer Name Role Phone Unavailable Primary Care Provider Unavailabl e Encounter Details Date Type Department Care Team (Latest Contact Info) Description 01/16/2018 11:35 AM CDT Hospital Encounter [facility] Tim Loera MD [address] [place] [id number] Benign neoplasm of right breast; Mastodynia; Mass [...]
--- OUTSIDE RECORDS SUMMARY | 2024-03-15 18:53 | XMS_ITS | Encounter Summary ---
Author Organization [facility] Healthcare Address [address] [place] [address] Care Team Providers Care Automotive Machinist Apprentice Name Role Phone Unavailable Primary Care Provider Unavailabl e Encounter Details Date Type Department Care Team (Late st Contact Info) Description 10/10/2017 4:13 PM CDT - 10/10/2017 6:30 PM CDT Hospital Encounter [facility], Jennifer Mendez MD [address] [place] [address] False labor before 37 completed weeks of [...]
--- OUTSIDE RECORDS SUMMARY | 2024-03-15 18:53 | XMS_ITS | Encounter Summary ---
Author Organization [facility] Healthcare Address [address] [place] [address] Care Team Providers Care Barytes Grinder Name Role Phone Unavailable Primary Care Provider Unavailabl e Encounter Details Date Type Department Care Team (Latest Contact Info) Description 06/05/2017 10:56 PM CDT - 06/06/2017 12:36 AM CDT [facility] [address] [facility] [place] [address] Hemorrhage in early ; Allergy status to other antibiotic agents status; 18 weeks gestation of ; Other half-way (current) drug therapy Social History Tobacco Use [...] 5.17% 06/05 11:00 PM CDT Growth Chart: [facility] (Girls, 2- 20 Years) documented in this [...] CDT) Sodium 139 135 - 145 mmol/L 06/06/2017 12:06 AM [facility] RES[facility] Potassium 3.6 3.3 - 5.1 mmol/L Chloride 99 96 - 108 mmol/L 06/06/2017 12:06 AM [facility] H[facility]OR[facility] RES[facility] Carbon Dioxide 24 22 - 32 mmol/L Anion Gap 16 7 - 16 Glucose 80 70 - 100 mg/dL 06/06/2017 12:06 AM [facility] H[facility]OR[facility] RES[facility] BUN 7 6 - 20 mg/dL Creatinine 0.4(L) 0.5 - 1.1 mg/dL Comment: NOTE: Estimated GFR (Cockroft-Gault) will NOT be calculated unless patient Height and Weight were entered. Also, Kidney Disease Stage (GFR) and Estimated GFR (Cockroft-Gault) will NOT be calculated if Creatinine result is <0.2. Kidney Disease Stage > 90 mL/MIN 06/06/2017 12:06 AM [facility] H[facility]OR[facility] RES[facility] Comment: NOTE; ??The GFR is [...] GFR (Cockcroft-G) 163 ml/MIN 06/06/2017 12:06 AM [facility] H[facility] Comment: Estimated GFR(Cockroft-Gault)is used to calculate patient medication dosage Calcium 9.3 8.6 - 10.0 mg/dL 06/06/2017 12:06 AM [facility] HISTORICAL RESULTS Total Protein 7.3 6.4 - 8.3 g/dL 06/06/2017 12:06 AM [facility] HISTORICAL RESULTS Albumin 4.1 3.5 - 5.2 g/dL 06/06/2017 12:06 AM [facility] HISTORICAL RESULTS Globulin 3.2 2.3 - 3.5 gm/dL 06/06/2017 12:06 AM [facility] HISTORICAL RESULTS Albumin/Globulin Ratio 1.3 1.1 - 1.8 06/06/2017 12:06 AM [facility] HISTORICAL RESULTS Total Bilirubin 0.2 0.0 - 1.2 mg/dL 06/06/2017 12:06 AM [facility] HISTORICAL RESULTS AST 11 0 - 32 U/L ALT 10 0 - 33 U/L Alkaline Phosphatase 54 35 - 104 U/L 06/05/2017 11:1 5 PM CDT 06/05/2017 11:18 PM CDT us Zachery Nieves Amol LAB BLOOD ORDERABLES Fi nal Result [facility] HISTORICAL RESULTS * (ABNORMAL) CBC with auto differential (06/05/2017 11:15 PM CDT) WBC 7.1 3.5 - 10.5 x10 3/ul RBC 4.46 3.76 - 4.80 x10 6/ul Hemoglobin 12.9 11.0 - 15.0 g/dL Hct 39.6 33.0 - 43.0 % MCV 88.8 80.0 - 97.0 fl MCH 28.9 27.0 - 31.2 pg MCHC 32.6 31.8 - 35.4 g/dl RDW 12.6 11.6 - 14.8 % Plt Count 243 150 - 450 X10 3/ul MPV 10.5(H) 7.4 - 10.4 fl Neut % 64.7 37.0 - 85.0 % Immature Gran % 0.7 0.0 - 3.0 % Lymph % 22.4 5.0 - 45.0 % Josephine % 9.1 3.0 - 15.0 % Eos [...] Carmichael LAB BLOOD ORDERABLES Fi nal Result [facility] HISTORICAL RESULTS * (ABNORMAL) hCG, blood, quantitative (06/05/2017 11:15 PM CDT) Beta HCG, Quant 6517.0(H) 0.0 - 1.0 mIU/mL Comment: Weeks of preg ?BHCG ? Weeks [...] Carmichael LAB BLOOD ORDERABLES Fi nal Result [facility] HISTORICAL RESULTS * (ABNORMAL) UA with Culture Reflex (06/05/2017 11:10 PM CDT) Ur Collection Type CLEAN CATCH Ur Culture Indicated? C&S NOT INDICATED Urine Color STRAW YELLOW Urine Clarity CLEAR CLEAR Urine Glucose (UA) NORMAL NORMAL mg/dL Urine Bilirubin NEGATIVE NEGATIVE mg/dl Urine Ketones NEGATIVE NEGATIVE mg/dL Ur Specific [place] 1.004(L) 1.005 - 1.025 Urine Blood NEGATIVE NEGATIVE mg/dl Urine pH 7.0 5.0 - 8.0 Urine Protein NEGATIVE NEGATIVE mg/dL Urine Urobilinogen NORMAL NORMAL mg/dL Urine Nitrite NEGATIVE NEGATIVE Ur Leukocyte Esterase NEGATIVE NEGATIVE Sammie/ul Ur Microscopic Review Not Indicated 06/05/2017 11:1 0 PM CDT 06/05/2017 11:18 PM CDT Narrative [facility] HISTORICAL RESULTS - 06/05/2017 11:53 PM CDT Indication(s) for ordering ? us Zachery Carmichael LAB URINE ORDERABLES Fi nal Result [facility] HISTORICAL RESULTS documented in this encounter Visit Diagnoses Diagnosis Hemorrhage in early Allergy status to other antibiotic agents status 18 weeks gestation of Other half-way (current) drug therapy documented in this encounter
--- OUTSIDE RECORDS SUMMARY | 2024-03-15 18:53 | XMS_ITS | Encounter Summary ---
Author Organization [facility] Healthcare Address [address] [place] [address] Care Team Providers Care Section Maintainer Name Role Phone Unavailable Primary Care Provider Unavailabl e Encounter Details Date Type Department Care Team (Late st Contact Info) Description 01/26/2018 1:36 AM CDT - 01/26/2018 3:18 AM FINE GRADE BULLDOZER OPERATOR Hospital Encounter [facility] Markus Dinh Periapical abscess without sinus; Dental [...]
--- OUTSIDE RECORDS SUMMARY | 2024-03-15 18:53 | XMS_ITS | Encounter Summary ---
Author Organization [facility] Healthcare Address [address] [place] [address] Care Team Providers Care Train Brake Operator Name Role Phone Unavailable Primary Care Provider Unavailabl e Encounter Details Date Type Department Care Team (Latest Contact Info) Description 07/07/2017 11:56 AM CDT - 07/07/2017 1:33 PM CDT [facility] [address] [place] [address] Nipple discharge; Mastodynia; Benign neoplasm of right breast; Uncomplicated asthma; Allergy status to other drugs, medicaments and biological substances status; Other mcfp (current) drug therapy Social History Tobacco Use [...] 13.94% 07/07 11:57 AM CDT Growth Chart: [facility] (Girls, 2- 20 Years) documented in this encounter Plan of Treatment Not on file documented as of this encounter Visit Diagnoses Diagnosis Nipple discharge Other sign and symptom in breast Mastodynia Benign neoplasm of right breast Uncomplicated asthma Allergy status to other drugs, medicaments and biological substances status Other exterminator helper (current) drug therapy documented in this encounter
--- OUTSIDE RECORDS SUMMARY | 2024-03-15 18:53 | XMS_ITS | Encounter Summary ---
Author Organization 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 ?? md/:07/11/2017 09:36:49 ?? Research Manufacturing Operator: Brittany Tolbert [facility]- [facility] letter sent: Abnormal Exam ?? Reading location: [facility] Ultrasound BI-RADS: 4a Suspicious abnormality - low [...] signed by: Tanner Saenz M.D., md/:07/11/2017 09:36:49 Research Manufacturing Operator: Yasmeen [facility] letter sent: Abnormal Exam Reading location: [facility] Ultrasound BI-RADS: 4a Suspicious abnormality - low [...]
--- OUTSIDE RECORDS SUMMARY | 2024-03-15 18:53 | XMS_ITS | Encounter Summary ---
Author Organization [facility] Healthcare Address [address] [place] [address] Care Team Providers Care Sample Mounter Name Role Phone Unavailable Primary Care Provider Unavailabl e Encounter Details Date Type Department Care Team (Late st Contact Info) Description 12/26/2017 7:02 PM CDT - 12/26/2017 8:42 PM CDT Hospital Encounter [facility] Markus Dinh Urinary tract infection; Hemorrhoids; Headache; Allergy status to other antibiotic agents status; Other residential (current) drug therapy Social History Tobacco Use [...] PM CDT) Ur Collection Type CLEAN CATCH 12/26/2017 8:06 PM [facility] HISTORICAL RESULTS Ur Culture Indicated? C&S NOT INDICATED 12/26/2017 8:06 PM [facility] HISTORICAL RESULTS Urine Color YELLOW YELLOW 12/26/2017 8:06 PM [facility] HISTORICAL RESULTS Urine Clarity HAZY CLEAR 12/26/2017 8:06 PM [facility] HISTORICAL RESULTS Urine Glucose (UA) NORMAL NORMAL mg/dL 12/26/2017 8:06 PM [facility] HISTORICAL RESULTS Urine Bilirubin NEGATIVE NEGATIVE mg/dl 12/26/2017 8:06 PM [facility] HISTORICAL RESULTS Urine Ketones NEGATIVE NEGATIVE mg/dL 12/26/2017 8:06 PM [facility] HISTORICAL RESULTS Ur Specific [place] 1.010 1.005 - 1.025 12/26/2017 8:06 PM [facility] HISTORICAL RESULTS Urine Blood 0.03(H) NEGATIVE mg/dl 12/26/2017 8:06 PM [facility] HISTORICAL RESULTS Urine pH 5.0 5.0 - 8.0 12/26/2017 8:06 PM [facility] HISTORICAL RESULTS Urine Protein NEGATIVE NEGATIVE mg/dL 12/26/2017 8:06 PM [facility] HISTORICAL RESULTS Urine Urobilinogen NORMAL NORMAL mg/dL 12/26/2017 8:06 PM [facility] HISTORICAL RESULTS Urine Nitrite NEGATIVE NEGATIVE 12/26/2017 8:06 PM [facility] HISTORICAL RESULTS Ur Leukocyte Esterase 75(H) NEGATIVE Sammie/ul 12/26/2017 8:06 PM [facility] HISTORICAL RESULTS Ur Microscopic Review Indicated or Ordered Urine RBC 2 0 - 2 /HPF Urine WBC 5 0 - 2 /HPF Urine Mucus Mod /LPF Ur Squamous Epith Cells Mod /LPF Ur Transition Epith Cell 1 /HPF 12/26/2017 7:35 PM CDT 12/26/2017 7:43 PM CDT Narrative [facility] HISTORICAL RESULTS - 12/26/2017 8:06 PM CDT Indication(s) for ordering ? Dysuria ?? us Jacque Potter NP LAB MICROBIOLOGY - GENERAL ORDER LUTHER Final Result [facility] HISTORICAL RESULTS * (ABNORMAL) Comprehensive metabolic panel (12/26/2017 7:31 PM CDT) Sodium 140 135 - 145 mmol/L Potassium 3.9 3.3 - 5.1 mmol/L Chloride 102 96 - 108 mmol/L Carbon Dioxide 27 22 - 32 mmol/L Anion Gap 11 7 - 16 Glucose 96 70 - 100 mg/dL BUN 10 6 - 20 mg/dL Creatinine 0.6 0.5 - 1.1 mg/dL Comment: NOTE: Estimated GFR (Cockroft-Gault) will NOT be calculated unless patient Height and Weight were entered. Also, Kidney Disease Stage (GFR) and Estimated GFR (Cockroft-Gault) will NOT be calculated if Creatinine result is <0.2. Kidney Disease Stage > 90 mL/MIN 12/26/2017 8:06 PM [facility] HISTORICAL RESULTS Comment: NOTE; ??The GFR [...] dialysis @ Est GFR (Cockcroft-G) 108 ml/MIN 12/26/2017 8:06 PM [facility] HISTORICAL RESULTS Comment: Estimated GFR(Cockroft-Gault)is used to calculate patient medication dosage Calcium 9.3 8.6 - 10.0 mg/dL 12/26/2017 8:06 PM [facility] HISTORICAL RESULTS Total Protein 7.1 6.4 - 8.3 g/dL 12/26/2017 8:06 PM [facility] HISTORICAL RESULTS Albumin 4.9 3.5 - 5.2 g/dL 12/26/2017 8:06 PM [facility] HISTORICAL RESULTS Globulin 2.2(L) 2.3 - 3.5 gm/dL 12/26/2017 8:06 PM [facility] HISTORICAL RESULTS Albumin/Globulin Ratio 2.2(H) 1.1 - 1.8 Total Bilirubin 0.5 0.0 - 1.2 mg/dL AST 12 0 - 32 U/L ALT 13 0 - 33 U/L Alkaline Phosphatase 80 35 - 104 U/L 12/26/2017 7:31 PM CDT 12/26/2017 7:44 PM CDT us Jacque Potter NP LAB BLOOD ORDERABLES Final Resul t [facility] HISTORICAL RESULTS * (ABNORMAL) CBC with auto differential (12/26/2017 7:31 PM CDT) WBC 7.2 3.8 - 9.9 X10 3/ul RBC 4.62 3.90 - 5.20 x10 6/ul Hemoglobin 12.3 11.9 - 15.5 g/dL Hct 39.1 35.6 - 45.5 % MCV 84.6 81.3 - 96.4 fl MCH 26.6(L) 27.1 - 33.3 pg MCHC 31.5(L) 32.3 - 35.7 g/dl RDW 16.0(H) 11.1 - 14.9 % Plt Count 248 150 - 400 x10 3/ul 12/26/2017 7:49 PM [facility] HISTORICAL RESULTS MPV 11.6 9.1 - 12.3 fl 12/26/2017 7:49 PM [facility] HISTORICAL RESULTS Neut % 61.7 % 12/26/2017 7:49 PM [facility] HISTORICAL RESULTS Immature Gran % 0.1 % 8 7:49 PM [facility] HISTORICAL RESULTS Lymph % 26.3 % 12/26/2017 7:49 PM [facility] HISTORICAL RESULTS [place] % 8.2 % 12/26/2017 7:49 PM [facility] HISTORICAL RESULTS Eos % 3.3 % 12/26/2017 7:49 PM [facility] HISTORICAL RESULTS Baso % 0.4 % 12/26/2017 7:49 PM [facility] HISTORICAL RESULTS Absolute Neuts (auto) 4.4 1.7 - 6.5 x10 3/ul 12/26/2017 7:49 PM [facility] HISTORICAL RESULTS Immature Gran # 0.0 0.0 - 0.1 x10 3/ul 12/26/2017 7:49 PM [facility] HISTORICAL RESULTS Absolute Lymphs (auto) 1.9 0.8 - 3.3 x10 3/ul 12/26/2017 7:49 PM [facility] HISTORICAL RESULTS Absolute Monos (auto) 0.6 0.2 - 0.8 x10 3/ul 12/26/2017 7:49 PM [facility] HISTORICAL RESULTS Absolute Eos (auto) 0.2 0.0 - 0.5 x10 3/ul 12/26/2017 7:49 PM [facility] HISTORICAL RESULTS Absolute Basos (auto) 0.0 0.0 - 0.1 x10 3/ul 12/26/2017 7:49 PM [facility] HISTORICAL RESULTS Nucleat RBC Rel Count 0.0 #/100WBC 12/26/2017 7:49 PM [facility] HISTORICAL RESULTS Absolute Nucleated RBC 0.00 0.00 - 0.01 x10 3/ul 12/26/2017 7:49 PM [facility] HISTORICAL RESULTS Absolute Neutrophils 4400 200 - 8000 /ul 12/26/2017 7:31 PM CDT 12/26/2017 7:44 PM CDT us Jacque Potter NP LAB BLOOD ORDERABLES Final Resul t [facility] HISTORICAL RESULTS documented in this encounter Visit Diagnoses Diagnosis Urinary tract infection Urinary tract infection, site not specified Hemorrhoids Headache Allergy status to other antibiotic agents status Other watermaster (current) drug therapy documented in this encounter
--- OUTSIDE RECORDS SUMMARY | 2024-03-15 18:53 | XMS_ITS | Encounter Summary ---
Author Organization [facility] Healthcare Address [address] [place] [address] Care Team Providers Care Resort Desk Clerk Name Role Phone Unavailable Primary Care Provider Unavailabl e Encounter Details Date Type Department Care Team (Latest Contact Info) Description 05/23/2016 1:07 PM TELEGRAPH DISPATCHER - 05/23/2016 4:25 PM TELEGRAPH DISPATCHER [facility] [address] [place] [address] False labor before 37 completed weeks of [...] Comments Blood Pressure 119/77 05/23/2016 1:25 PM TELEGRAPH DISPATCHER Pulse 110 05/23/2016 1:25 PM TELEGRAPH DISPATCHER Temperature 36.2 ??C (97.1 ??F) 05/23/2016 1:25 PM CS T Respiratory Rate - - Oxygen Saturation 99% 05/23/2016 1:25 PM TELEGRAPH DISPATCHER Inhaled Oxygen Concentration - - Weight 53.5 kg (118 lb) 05/23/2016 1:25 PM TELEGRAPH DISPATCHER Height 160 cm (5' 3 ) 05/23/2016 1:25 PM TELEGRAPH DISPATCHER Body Mass Index 20.9 05/23/2016 1:25 PM TELEGRAPH DISPATCHER Body Mass Index Percentile 46.90% 05/23/2016 1: 25 PM TELEGRAPH DISPATCHER Growth Chart: [facility] (Girls, 2- 20 Years) documented in this encounter Plan of Treatment Not on file documented as of this encounter Procedures Procedure Name Priority Date/Time Associated Diagnosis Comments CBC WITH AUTO DIFFERENTIAL Routine 05/23/2016 2:16 PM TELEGRAPH DISPATCHER URIC ACID Routine 05/23/2016 2:16 PM TELEGRAPH DISPATCHER COMPREHENSIVE METABOLIC PANEL Routine 05/23/2016 2:16 PM TELEGRAPH DISPATCHER PROTEIN / CREATININE RATIO, URINE, RANDOM Routine 05/23/2016 2:10 PM TELEGRAPH DISPATCHER documented in this encounter Results * Uric acid (05/23/2016 2:16 PM TELEGRAPH DISPATCHER) Uric Acid 3.2 2.4 - 5.7 mg/dL 05/23/2016 2:45 PM TELEGRAPH DISPATCHER [facility] HISTORICAL RESULTS 05/23/2016 2:16 PM TELEGRAPH DISPATCHER 05/23/2016 2:21 PM TELEGRAPH DISPATCHER us Zachery Sullivan MD LAB BLOOD ORDERABLES Fin al Result [facility] HISTORICAL RESULTS * (ABNORMAL) Comprehensive metabolic panel (05/23/2016 2:16 PM TELEGRAPH DISPATCHER) Sodium 137 135 - 145 mmol/L Potassium 3.9 3.3 - 5.1 mmol/L Chloride 100 96 - 108 mmol/L 05/23/2016 2:45 PM TELEGRAPH DISPATCHER [facility] HISTORICAL RESULTS Carbon Dioxide 23 22 - 32 mmol/L 05/23/2016 2:45 PM TELEGRAPH DISPATCHER [facility] [employer] [facility] HISTORICAL RESULTS Anion Gap 14 7 - 16 05/23/2016 2:45 PM TELEGRAPH DISPATCHER [facility] HISTORICAL RESULTS Glucose 74 70 - 100 [...] 0 - 186 U/L 05/23/2016 2:16 PM TELEGRAPH DISPATCHER 05/23/2016 2:21 PM TELEGRAPH DISPATCHER us Zachery Sullivan MD LAB BLOOD ORDERABLES Fin al Result [facility] HISTORICAL RESULTS * (ABNORMAL) CBC with auto differential (05/23/2016 2:16 PM TELEGRAPH DISPATCHER) [facility] WBC 10.1 4.6 - 10.2 x10 3/ul 05/23/2016 2:24 PM TELEGRAPH DISPATCHER [facility] HISTORICAL RESULTS RBC 4.62 3.76 - 4.80 x10 6/ul 05/23/2016 2:24 PM TELEGRAPH DISPATCHER [facility] HISTORICAL RESULTS Hemoglobin 12.3 11.0 - 15.0 g/dl 05/23/2016 2:24 PM TELEGRAPH DISPATCHER [facility] HISTORICAL RESULTS Hct 39.1 33.0 - 43.0 % MCV 84.6 80.0 - 97.0 fl 05/23/2016 2:24 PM TELEGRAPH DISPATCHER [facility] HISTORICAL RESULTS MCH 26.6(L) 27.0 - 31.2 pg MCHC 31.5(L) 31.8 - 35.4 g/dl RDW 16.5(H) 11.6 - 14.8 % Plt Count 182 124 - 400 x10 3/ul MPV 11.4(H) 7.4 - 10.4 fl Neut % 72.3 37.0 - 85.0 % Immature Gran % 0.7 0.0 - 3.0 % Lymph % 16.9 5.0 - 45.0 % [place] % 9.1 3.0 - 15.0 % Eos % 0.7 0.0 - 7.0 % Baso % 0.3 0.0 - 2.0 % Absolute Neuts (auto) 7.3 1.7 - 8.7 x10 3/ul 05/23/2016 2:24 PM TELEGRAPH DISPATCHER [facility] HISTORICAL RESULTS Immature Gran # 0.1 0.0 - 0.3 x10 3/ul 05/23/2016 2:24 PM TELEGRAPH DISPATCHER [facility] HISTORICAL RESULTS Absolute Lymphs (auto) 1.7 0.2 - 4.6 x10 3/ul 05/23/2016 2:24 PM TELEGRAPH DISPATCHER [facility] HISTORICAL RESULTS Absolute Monos (auto) 0.9 0.1 - 1.5 x10 3/ul 05/23/2016 2:24 PM TELEGRAPH DISPATCHER [facility] HISTORICAL RESULTS Absolute Eos (auto) 0.1 0.0 - 0.7 x10 3/ul Absolute Basos (auto) 0.0 0.0 - 0.2 x10 3/ul 05/23/2016 2:16 PM TELEGRAPH DISPATCHER 05/23/2016 2:21 PM TELEGRAPH DISPATCHER Zachery Sullivan MD LAB BLOOD ORDERABLES Fin al Result [facility] HISTORICAL RESULTS * Protein / creatinine ratio, urine, random (05/23/2016 2:10 PM TELEGRAPH DISPATCHER) Ur Random Creatinine 43.5 mg/dL Comment: Reference Range First morning urine: Females 28 - 217 mg/dLRandom Specimen: ??No reference ranges U Random Total Protein 7 0 - 12 mg/dL Protein/Creatin in Ratio 0.16 Comment:Random Specimen: No reference ranges 05/23/2016 2:10 PM TELEGRAPH DISPATCHER 05/23/2016 2:39 PM TELEGRAPH DISPATCHER Zacehry Sullivan MD LAB URINE ORDERABLES Fin al Result [facility] HISTORICAL RESULTS documented in this encounter Visit Diagnoses Diagnosis False labor before 37 completed weeks of gestation 36 weeks gestation of documented in this encounter
--- OUTSIDE RECORDS SUMMARY | 2024-03-15 18:53 | XMS_ITS | Encounter Summary ---
Author Organization [facility] Healthcare Address [address] [place] [address] Care Team Providers Care Wirer Maintenance Name Role Phone Unavailable Primary Care Provider Unavailabl e Encounter Details Date Type Department Care Team (Late st Contact Info) Description 09/23/2017 12:28 AM CDT - 09/23/2017 4:17 PM CDT Hospital Encounter [facility], Jennifer Mendez MD [address] [place] [address] False labor before 37 completed weeks of [...] 25.37% 09/22 11:25 AM CDT Growth Chart: [facility] (Girls, 2- 20 Years) documented in [...] CDT) C. trachomatis RNA CT NOT DETECTED 09/22/2017 4:33 PM CDT [facility] HISTORICAL RESULTS Comment:Chlamydia trachomati s is not detected. C. trachomatis RNA NG NOT DETECTED 09/22/2017 4:33 PM CDT [facility] HISTORICAL RESULTS Comment:Neisseria gonorrhoea e is not detected. Chlamydia/GC Source URINE 09/22/2017 2:01 PM CDT [facility] HISTORICAL RESULTS Comment: Xpert CT/NG Assay performance has not [...] PM CDT 09/22/2017 2:00 PM CDT Narrative [facility] HISTORICAL RESULTS - 09/22/2017 2:01 PM CDT Urine collection method First catch lessthan 50ml ?? Collected By DD Jennifer Villatoro MD LAB MICROBIOLOGY - GENE RAL ORDERABLES Final Result Performing Organization Address [facility] de Phone Number [facility] HISTORICAL RESULTS * Group B streptococcus PCR (09/22/2017 6:23 AM CDT) Strep B Ag NEGATIVE NEGATIVE 09/23/2017 10:12 AM CDT [facility] HISTORICAL RESULTS Strep B culture NOT APPLICABLE 09/23/2017 10:12 AM T [facility] HISTORICAL RESULTS 09/22/2017 6:23 AM CDT 09/22/2017 6:56 AM CDT Jennifer Villatoro MD LAB MICROBIOLOGY - GENE RAL ORDERABLES Final Result Performing Organization Address [facility] de Phone Number [facility] HISTORICAL RESULTS * Drug Screen, Urine (09/22/2017 3:45 AM CDT) Ur Amphetamine Screen NEGATIVE NEGATIVE 09/22/2017 5:05 AM T [facility] HISTORICAL RESULTS Comment: Cutoff Limit: ??1000 ng/mL ??Detects MDMA, MDA, d-Amphetamine, d-Methamphetamine, ?MBDB-HCl, MDEA and BDB-HCl Note: ??Positive results from this drug screen are unconfirmed. ??Unconfirmed screening results should not be used for non-medical purposes. Ur Barbiturates Screen NEGATIVE NEGATIVE 09/22/2017 5:05 AM CDT [facility] HISTORICAL RESULTS Comment: Cutoff limit: ??200 ng/mL [...] Morphine, Codeine, Ethyl Morphine, ?Diacetylmorphine, 6-Acetylmorphine, Dihydrocodeine, ?[id number] and Hydrocodone Ur Oxycodone Screen NEGATIVE NEGATIVE 09/22 5:05 AM [facility] HISTORICAL RESULTS Comment:Cutoff Limit: 100 ng /mL Urine Creatinine/MONICA 33.8 mg/dL Comment:If Creatinine is < 4 0 mg/dL, recollection is suggested. 09/22/2017 3:45 AM CDT 09/22/2017 4:36 AM CDT Jennifer Villatoro MD LAB URINE ORDERABLES Fi nal Result [facility] HISTORICAL RESULTS * (ABNORMAL) UA with Culture Reflex (09/22/2017 3:45 AM CDT) Ur Collection Type CLEAN CATCH Ur Culture Indicated? C&S NOT INDICATED Urine Color STRAW YELLOW Urine Clarity CLEAR CLEAR Urine Glucose (UA) NORMAL NORMAL mg/dL Urine Bilirubin NEGATIVE NEGATIVE mg/dl Urine Ketones NEGATIVE NEGATIVE mg/dL Ur Specific [place]fr[place] 1.004(L) 1.005 - 1.025 Urine Blood NEGATIVE NEGATIVE mg/dl Urine pH 7.0 5.0 - 8.0 Urine Protein NEGATIVE NEGATIVE mg/dL Urine Urobilinogen NORMAL NORMAL mg/dL Urine Nitrite NEGATIVE NEGATIVE Ur Leukocyte Esterase NEGATIVE NEGATIVE Sammie/ul Ur Microscopic Review Not Indicated 09/22/2017 3:45 AM CDT 09/22/2017 4:36 AM [facility] Narrative [facility] HISTORICAL RESULTS - 09/22/2017 4:53 AM CDT Indication(s) for ordering ? Jennifer Villatoro MD LAB URINE ORDERABLES Fi nal Result [facility] HISTORICAL RESULTS * MEMBRANE RUPTURE TEST (09/22/2017 2:15 AM CDT) Membranes Rupture NEGATIVE NEGATIVE Comment: A negative result does not assure the absence of membrane rupture. Results should be used in conjunction with other clinical information. 09/22/2017 2:15 AM CDT 09/22/2017 2:23 AM CDT us Jennifer Villatoro MD LAB BLOOD ORDERABLES nal Result Performing Organization Address City/State/[facility] Co de Phone Number [facility] HISTORICAL RESULTS documented in this encounter Visit Diagnoses Diagnosis False labor before 37 completed weeks of gestation in third trimester 33 weeks gestation of documented in this encounter
--- OUTSIDE RECORDS SUMMARY | 2024-03-15 18:54 | XMS_ITS | Encounter Summary ---
Author Organization [facility] Healthcare Address [address] [place] [address] Care Team Providers Care Certified Flex Endoscope Reprocessor Name Role Phone Unavailable Primary Care Provider Unavailabl e Encounter Details Date Type Department Care Team (Latest Contact Info) Description 05/14/2016 2:29 PM MANGLE [employer]ENDER CLOTH - 05/14/2016 5:05 PM [facility]OTH Hospital Encounter [facility] Leyla Noble MD [address] [place] [address] Other specified diseases and conditions complicating , [...] Comments Blood Pressure 115/71 05/14/2016 3:41 PM [facility] [employer] [employer] Pulse 83 05/14/2016 3:41 PM [facility] [employer] Temperature 36.8 ??C (98.2 ??F) 05/14/2016 3:41 PM CS T Respiratory Rate - - Oxygen Saturation - - Inhaled Oxygen Concentration - - Weight 53.1 kg (117 lb) 05/14/2016 3:41 PM [facility] [employer] [employer] Height 160 cm (5' 3 ) 05/14/2016 3:41 PM [facility] [employer] Body Mass Index 20.73 05/14/2016 3:41 PM [facility] [employer] [employer] Body Mass Index Percentile 44.74% 05/14/2016 3:4 1 PM [employer]OTH Growth Chart: [facility] (Girls, 2- 20 Years) documented in this encounter Plan of Treatment Not on file documented as of this encounter Procedures Procedure Name Priority Date/Time Associated Diagnosis Comments UA WITH CULTURE REFLEX Routine 05/14/2016 3:00 PM [employer] [employer] DRUGS OF ABUSE SCREEN, URINE WITHOUT CONFIRMATION Routine 05/14/2016 3:00 PM [employer] documented in this encounter Results * Drug Screen, Urine (05/14/2016 3:00 PM [facility] [employer]) Ur Amphetamine Screen NEGATIVE NEGATIVE 05/14/2016 4:[address] [facility] HISTORICAL RESULTS Comment: Cutoff Limit: ??1000 ng/mL ??Detects MDMA, MDA, d-Amphetamine, d-Methamphetamine, ?MBDB-HCl, MDEA and BDB-HCl Note: ??Positive results from this drug screen are unconfirmed. ??Unconfirmed screening results should not be used for non-medical purposes. Ur Barbiturates Screen NEGATIVE NEGATIVE 05/14/2016 4:29 PM [facility] HISTORICAL RESULTS Comment: Cutoff limit: ??200 ng/mL ??Detects Secobarbitol, Cyclopentobarbital, Aprobarbital, ?Butalbital, Allobarbital, Butabarbital, ?Pentobarbital, Amobarbital and Phenobarbital U Benzodiazepines Scrn NEGATIVE NEGATIVE 05/14/2016 4:29 PM [facility] [employer] [facility] [employer] HISTORICAL RESULTS Comment:Cutoff limit: 300 ng /mL U Cannabinoids Screen NEGATIVE NEGATIVE 05/14/2016 4:[address] [facility] HISTORICAL RESULTS Comment:Cutoff Limit: 50 ng/ mL U Cocaine Metab Screen NEGATIVE NEGATIVE 05/14/2016 4:[address] [facility] HISTORICAL RESULTS Comment:Cutoff limit: 300 ng /mL Urine Opiates Screen NEGATIVE NEGATIVE 05/14/2016 4:[address] [facility] HISTORICAL RESULTS Comment: Cutoff Limit: ??300 ng/mL Detects Morphine, Codeine, Ethyl Morphine, ?Diacetylmorphine, 6-Acetylmorphine, Dihydrocodeine, ?[id number] and Hydrocodone Ur Oxycodone Screen NEGATIVE NEGATIVE 05/14 4:[address] [facility] HISTORICAL RESULTS Comment:Cutoff Limit: 100 ng /mL Urine Creatinine/MONICA 11.2 mg/dL 05/14/2016 4:[address] [facility] HISTORICAL RESULTS Comment:If Creatinine is < 4 0 mg/dL, recollection is suggested. 05/14/2016 3:00 PM [facility] TENDER [employer]OTH 05/14/2016 4:01 PM [facility] us Leyla Noble MD LAB URINE ORDERABLES Final Resu lt [facility] HISTORICAL RESULTS * (ABNORMAL) UA with Culture Reflex (05/14/2016 3:00 PM [facility]ANG[employer] TEND[facility] [employer]OTH) Ur Collection Type CLEAN CATCH 05/14/2016 4:[address] [facility] HISTORICAL RESULTS Ur Culture Indicated? C&S NOT INDICATED 05/14/2016 4:[address] [facility] HISTORICAL RESULTS Urine Color STRAW YELLOW 05/14/2016 4:[address] [facility] HISTORICAL RESULTS Urine Clarity CLEAR CLEAR 05/14/2016 4:[address] [facility] HISTORICAL RESULTS Urine Glucose (UA) NORMAL NORMAL mg/dL 05/14/2016 4:[address] [facility] HISTORICAL RESULTS Urine Bilirubin NEGATIVE NEGATIVE mg/dl 05/14/2016 4:[address] [facility] HISTORICAL RESULTS Urine Ketones NEGATIVE NEGATIVE mg/dL 05/14/2016 4:[address] [facility] HISTORICAL RESULTS Ur Specific [place] 1.001(L) 1.005 - 1.025 05/14/2016 4:[address] [facility] HISTORICAL RESULTS Urine Blood NEGATIVE NEGATIVE mg/dl 05/14/2016 4:[address] [facility] HISTORICAL RESULTS Urine pH 7.0 5.0 - 8.0 05/14/2016 4:[address] [facility] HISTORICAL RESULTS Urine Protein NEGATIVE NEGATIVE mg/dL 05/14/2016 4:[address] [facility] HISTORICAL RESULTS Urine Urobilinogen NORMAL NORMAL mg/dL 05/14/2016 4:[address] [facility] HISTORICAL RESULTS Urine Nitrite NEGATIVE NEGATIVE 05/14/2016 4:[address] [facility] HISTORICAL RESULTS Ur Leukocyte Esterase NEGATIVE NEGATIVE Sammie/ul 05/14/2016 4:[address] [facility] HISTORICAL RESULTS Ur Microscopic Review Not Indicated 05/14/2016 4:[address] [facility] HISTORICAL RESULTS 05/14/2016 3:00 PM [facility]LE TENDER [employer]OTH 05/14/2016 4:01 PM [facility] [employer] us Leyla Noble MD LAB URINE ORDERABLES Final Resu lt [facility] HISTORICAL RESULTS documented in this encounter Visit Diagnoses Diagnosis Other specified diseases and conditions complicating , childbirth and the puerperium 36 weeks gestation of documented in this encounter
--- OUTSIDE RECORDS SUMMARY | 2024-03-15 18:54 | XMS_ITS | Encounter Summary ---
Author Organization [facility] Healthcare Address [address] [place] [address] Care Team Providers Care Set Up Worker Name Role Phone Unavailable Primary Care Provider Unavailabl e Encounter Details Date Type Department Care Team (Latest Contact Info) Description 01/22/2016 5:10 PM CDT - 01/22/2016 6:06 PM CDT Hospital Encounter [facility] Cande Madrigal MD [address] [place] [address] Procedure and treatment not carried out due [...]
--- OUTSIDE RECORDS SUMMARY | 2024-03-15 18:54 | XMS_ITS | Encounter Summary ---
Author Organization [facility] Healthcare Address [address] [place] [address] Care Team Providers Care Waybill Clerk Name Role Phone Unavailable Primary Care Provider Unavailabl e Encounter Details Date Type Department Care Team (Late st Contact Info) Description 10/26/2015 9:05 PM CDT - 10/27/2015 2:50 AM CDT Hospital Encounter [facility], Markus Leary MD [address] [address] Threatened ; Less than 8 weeks gestation [...] 10/26/2015 9:1 3 PM CDT Growth Chart: [facility] (Girls, 2- 20 Years) documented in [...] RW:nancy 02:23 AM 02:23 AM ALYSSA [EOD] Narrative 10/27/2015 2:27 AM CDT EXAMINATION: [...] - 145 mmol/L 10/26/2015 11:16 PM CDT [facility] [employer] HISTORICAL RESULTS Potassium 3.6 3.3 - 5.1 mmol/L 10/26/2015 11:16 PM CDT [facility] [employer] HISTORICAL RESULTS Chloride 102 96 - 108 mmol/L 10/26/2015 11:16 PM CDT [facility] [employer] HISTORICAL RESULTS Carbon Dioxide 22 22 - 32 mmol/L 10/26/2015 11:16 PM [facility] HISTORICAL RESULTS Anion Gap 16 7 - 16 10/26/2015 11:16 PM [facility] HISTORICAL RESULTS Glucose 86 70 - 100 mg/dL 10/26/2015 11:16 PM [facility] HISTORICAL RESULTS BUN 7 5 - 18 mg/dL 10/26/2015 11:16 PM [facility] HISTORICAL RESULTS Creatinine 0.4(L) 0.5 - 1.1 mg/dL 10/26/2015 11:16 PM [facility] HISTORICAL RESULTS Comment: NOTE: Estimated GFR (Cockroft-Gault) will NOT be calculated unless patient Height and Weight were entered. Also, Kidney Disease Stage (GFR) and Estimated GFR (Cockroft-Gault) will NOT be calculated if Creatinine result is <0.2. Kidney Disease Stage TNP mL/MIN 10/26/2015 11:17 PM [facility] HISTORICAL RESULTS Comment:PATIENT LESS THAN 18 YEARS OLD Est GFR (Cockcroft-G) TNP ml/MIN 10/26/2015 11:17 PM [facility] HISTORICAL RESULTS Comment:PATIENT LESS THAN 18 YEARS OLD Calcium 9.0 8.4 - 10.2 mg/dL 10/26/2015 11:16 PM [facility] HISTORICAL RESULTS Total Protein 6.8 6.4 - 8.3 g/dL 10/26/2015 11:16 PM [facility] HISTORICAL RESULTS Albumin 4.5 3.2 - 4.5 g/dL 10/26/2015 11:16 PM [facility] HISTORICAL RESULTS Globulin 2.3 2.3 - 3.5 gm/dL 10/26/2015 11:16 PM [facility] HISTORICAL RESULTS Albumin/Globulin Ratio 2.0(H) 1.1 - 1.8 10/26/2015 11:16 PM [facility] HISTORICAL RESULTS Total Bilirubin 0.4 0.0 - 1.2 mg/dL 10/26/2015 11:16 PM [facility] HISTORICAL RESULTS AST 13 0 - 32 U/L 10/26/2015 11:16 PM [facility] HISTORICAL RESULTS ALT 16 0 - 33 U/L 10/26/2015 11:16 PM [facility] HISTORICAL RESULTS Alkaline Phosphatase 45 0 - 186 U/L 10/26/2015 11:16 PM CDT [facility] HISTORICAL RESULTS 10/26/2015 10:2 6 PM CDT 10/26/2015 10:29 PM CDT Marge [facility] LAB BLOOD ORDERABLES Fin al Result [facility] HISTORICAL RESULTS * (ABNORMAL) CBC with auto differential (10/26/2015 10:26 PM CDT) WBC 11.4(H) 4.6 - 10.2 x10 3/ul 10/26/2015 10:31 PM CDT [facility] HISTORICAL RESULTS RBC 4.08 3.76 - 4.80 x10 6/ul 10/26/2015 10:31 PM CDT [facility] HISTORICAL RESULTS Hemoglobin 12.1 11.0 - 15.0 g/dl 10/26/2015 10:31 PM CDT [facility] HISTORICAL RESULTS Hct 35.6 33.0 - 43.0 % 10/26/2015 10:31 PM CDT [facility] HISTORICAL RESULTS MCV 87.3 80.0 - 97.0 fl 10/26/2015 10:31 PM CDT [facility] HISTORICAL RESULTS MCH 29.7 27.0 - 31.2 pg 10/26/2015 10:31 PM CDT [facility] HISTORICAL RESULTS MCHC 34.0 31.8 - 35.4 g/dl 10/26/2015 10:31 PM CDT [facility] HISTORICAL RESULTS RDW 12.2 11.6 - 14.8 % 10/26/2015 10:31 PM CDT [facility] [employer] HISTORICAL RESULTS Plt Count 231 124 - 400 x10 3/ul 10/26/2015 10:31 PM CDT [facility] HISTORICAL RESULTS MPV 10.5(H) 7.4 - 10.4 fl 10/26/2015 10:31 PM CDT [facility] [employer] HISTORICAL RESULTS Neut % 71.2 37.0 - 85.0 % 10/26/2015 10:31 PM CDT [facility] [employer] HISTORICAL RESULTS Immature Gran % 0.3 0.0 - 3.0 % 10/26/2015 10:31 PM CDT [facility] HISTORICAL RESULTS Lymph % 21.2 5.0 - 45.0 % 10/26/2015 10:31 PM CDT [facility] HISTORICAL RESULTS Plumas % 6.2 3.0 - 15.0 % 10/26/2015 10:31 PM T [facility] HISTORICAL RESULTS Eos % 0.7 0.0 - 7.0 % 10/26/2015 10:31 PM CDT [facility] HISTORICAL RESULTS Baso % 0.4 0.0 - 2.0 % 10/26/2015 10:31 PM CDT [facility] HISTORICAL RESULTS Absolute Neuts (auto) 8.1 1.7 - 8.7 x10 3/ul 10/26/2015 10:31 PM T [facility] HISTORICAL RESULTS Immature Gran # 0.0 0.0 - 0.3 x10 3/ul 10/26/2015 10:31 PM T [facility] HISTORICAL RESULTS Absolute Lymphs (auto) 2.4 0.2 - 4.6 x10 3/ul 10/26/2015 10:31 PM T [facility] HISTORICAL RESULTS Absolute Monos (auto) 0.7 0.1 - 1.5 x10 3/ul 10/26/2015 10:31 PM CDT [facility] HISTORICAL RESULTS Absolute Eos (auto) 0.1 0.0 - 0.7 x10 3/ul 10/26/2015 10:31 PM T [facility] HISTORICAL RESULTS Absolute Basos (auto) 0.1 0.0 - 0.2 x10 3/ul 10/26/2015 10:31 PM T [facility] HISTORICAL RESULTS 10/26/2015 10:2 6 PM CDT 10/26/2015 10:29 PM CDT us Marge VALENTINE LAB BLOOD ORDERABLES Fin al Result [facility] HISTORICAL RESULTS * (ABNORMAL) hCG, blood, quantitative (10/26/2015 10:26 PM CDT) Beta HCG, Quant 35780.0(H) 0.0 - 1.0 mIU/mL 10/27/2015 12:17 AM CDT [facility] HISTORICAL RESULTS Comment: Weeks of preg ?BHCG [...] [facility]ENTINE LAB BLOOD ORDERABLES Fin al Result [facility] HISTORICAL RESULTS * (ABNORMAL) Urinalysis, macro and micro (10/26/2015 9:35 PM [facility]) Ur Collection Type CLEAN CATCH 10/26/2015 10:06 PM [facility] HISTORICAL RESULTS Urine Color YELLOW YELLOW 10/26/2015 10:06 PM [facility] HISTORICAL RESULTS Urine Clarity HAZY CLEAR 10/26/2015 10:06 PM [facility] HISTORICAL RESULTS Urine Glucose (UA) NORMAL NORMAL mg/dL 10/26/2015 10:06 PM [facility] HISTORICAL RESULTS Urine Bilirubin NEGATIVE NEGATIVE mg/dl 10/26/2015 10:06 PM [facility] HISTORICAL RESULTS Urine Ketones 5(H) NEGATIVE mg/dL 10/26/2015 10:06 PM [facility] HISTORICAL RESULTS Ur Specific [place] 1.034(H) 1.005 - 1.025 10/26/2015 10:06 PM [facility] HISTORICAL RESULTS Urine Blood 0.03(H) NEGATIVE mg/dl 10/26/2015 10:06 PM [facility] HISTORICAL RESULTS Urine pH 5.0 5.0 - 8.0 10/26/2015 10:06 PM [facility] HISTORICAL RESULTS Urine Protein NEGATIVE NEGATIVE mg/dL 10/26/2015 10:06 PM [facility] HISTORICAL RESULTS Urine Urobilinogen NORMAL NORMAL mg/dL 10/26/2015 10:06 PM [facility] HISTORICAL RESULTS Urine Nitrite NEGATIVE NEGATIVE 10/26/2015 10:06 PM [facility] HISTORICAL RESULTS Ur Leukocyte Esterase NEGATIVE NEGATIVE Sammie/ul 10/26/2015 10:06 PM [facility] HISTORICAL RESULTS Ur Microscopic Review Indicated or Ordered 10/26/2015 10:06 PM [facility] HISTORICAL RESULTS Urine RBC 5 0 - 2 /HPF 10/26/2015 10:06 PM [facility] HISTORICAL RESULTS Urine Bacteria Rare /HPF 10/26/2015 10:06 PM [facility] HISTORICAL RESULTS Urine Mucus Marked /LPF 10/26/2015 10:06 PM [facility] HISTORICAL RESULTS Ur Squamous Epith Cells Rare /LPF 10/26/2015 10:06 PM [facility] HISTORICAL RESULTS 10/26/2015 9:35 PM CDT 10/26/2015 9:44 PM CDT Narrative [facility] HISTORICAL RESULTS - 10/26/2015 10:06 PM CDT Marge [facility] LAB URINE ORDERABLES Fin al Result [facility] HISTORICAL RESULTS documented in this encounter Visit Diagnoses Diagnosis Threatened Less than 8 weeks gestation of documented in this encounter
--- OUTSIDE RECORDS SUMMARY | 2024-03-15 18:54 | XMS_ITS | Encounter Summary ---
Author Organization [facility] Healthcare Address [address] [place] [address] Care Team Providers Care Expeller Operator Name Role Phone Unavailable Primary Care Provider Unavailabl e Encounter Details Date Type Department Care Team (Latest Contact Info) Description 01/09/2016 10:44 PM CDT - 01/10/2016 12:55 AM CDT Hospital Encounter [facility] Other specified diseases and conditions complicating , childbirth and the puerperium; Dysuria; Other specified noninflammatory disorders of vagina; Other long term care pharmacist (current) drug therapy; 17 weeks gestation of [...] 01/09/2016 11: 03 PM CDT Growth Chart: [facility] (Girls, 2- 20 Years) documented in this [...] NEGATIVE NEGATIVE 01/10/2016 5:50 AM CDT [facility] [employer] HISTORICAL RESULTS GARDNERELLA SCREEN NEGATIVE NEGATIVE 2015 5:50 AM CDT [facility] [employer] HISTORICAL RESULTS Tammy species DNA NEGATIVE NEGATIVE 01/10/2016 5:50 AM CDT [facility] [employer] HISTORICAL RESULTS Comment: A positive result for [...] Provider LAB BLOOD ORDERABLES Estefany lindsey Result [facility] HISTORICAL RESULTS * N. gonorrhoeae DNA probe, genital or urine (01/10/2016 12:30 AM CDT) [facility] C. trachomatis RNA CT NOT DETECTED Comment:Chlamydia [...] MICROBIOLOGY - GENERA L ORDERABLES Final Result [facility] HISTORICAL RESULTS * UA with Culture Reflex (01/09/2016 11:09 PM CDT) [facility] Ur Collection Type CLEAN CATCH Ur Culture Indicated? C&S NOT INDICATED Urine Color STRAW YELLOW Urine Clarity CLEAR CLEAR Urine Glucose (UA) NORMAL NORMAL mg/dL Urine Bilirubin NEGATIVE NEGATIVE mg/dl Urine Ketones NEGATIVE NEGATIVE mg/dL Ur Specific [place] 1.008 1.005 - 1.025 Urine Blood NEGATIVE NEGATIVE mg/dl Urine pH 6.0 5.0 - 8.0 Urine Protein NEGATIVE NEGATIVE mg/dL Urine Urobilinogen NORMAL NORMAL mg/dL Urine Nitrite NEGATIVE NEGATIVE Ur Leukocyte Esterase NEGATIVE NEGATIVE Sammie/ul Ur Microscopic Review Not Indicated 01/09/2016 11:0 9 PM CDT 01/09/2016 11:52 PM CDT us Historical Provider LAB URINE ORDERABLES Estefany lindsey Result [facility] HISTORICAL RESULTS documented in this encounter Visit Diagnoses Diagnosis Other specified diseases and conditions complicating , childbirth and the puerperium Dysuria Other specified noninflammatory disorders of vagina Other correction (current) drug therapy 17 weeks gestation of documented in this encounter
--- OUTSIDE RECORDS SUMMARY | 2024-03-15 18:54 | XMS_ITS | Encounter Summary ---
Author Organization [facility] Healthcare Address [address] [place] [address] Care Team Providers Care Cribber Name Role Phone Unavailable Primary Care Provider Unavailabl e Encounter Details Date Type Department Care Team (Late st Contact Info) Description 02/25/2016 5:05 PM MILL TENDER WARM UP - 02/25/2016 9:00 PM MILL TENDER WARM UP Hospital Encounter [facility] Asia Dewey MD [address] [place] [address] Other specified diseases and conditions complicating , [...] Comments Blood Pressure 117/72 02/25/2016 5:30 PM MILL TENDER WARM UP Pulse 95 02/25/2016 5:30 PM MILL TENDER WARM UP Temperature 36.7 ??C (98.1 ??F) 02/25/2016 5:30 PM CS T Respiratory Rate - - Oxygen Saturation - - Inhaled Oxygen Concentration - - Weight 46.7 kg (103 lb) 02/25/2016 5:30 PM MILL TENDER WARM UP Height 160 cm (5' 3 ) 02/25/2016 5:30 PM MILL TENDER WARM UP Body Mass Index 18.25 02/25/2016 5:30 PM MILL TENDER WARM UP Body Mass Index Percentile 12.70% 02/25/2016 5:3 0 PM MILL TENDER WARM UP Growth Chart: [facility] (Girls, 2- 20 Years) documented in this encounter Plan of Treatment Not on file documented as of this encounter Procedures Procedure Name Priority Date/Time Associated Diagnosis Comments UA WITH CULTURE REFLEX Routine 02/25/2016 5:05 PM MILL TENDER WARM UP DRUGS OF ABUSE SCREEN, URINE WITHOUT CONFIRMATION Routine 02/25/2016 5:05 PM MILL TENDER WARM UP documented in this encounter Results * Drug Screen, Urine (02/25/2016 5:05 PM MILL TENDER WARM UP) Ur Amphetamine Screen NEGATIVE NEGATIVE Comment: Cutoff [...] Benzodiazepines Scrn NEGATIVE NEGATIVE 02/25/2016 7:01 PM [facility] Comment:Cutoff limit: 300 ng /mL U Cannabinoids Screen NEGATIVE NEGATIVE Comment:Cutoff Limit: 50 ng/ mL U Cocaine Metab Screen NEGATIVE NEGATIVE Comment:Cutoff limit: 300 ng /mL Urine Opiates Screen NEGATIVE NEGATIVE Comment: Cutoff Limit: ??300 ng/mL Detects Morphine, Codeine, Ethyl Morphine, ?Diacetylmorphine, 6-Acetylmorphine, Dihydrocodeine, ?[id number] and Hydrocodone Ur Oxycodone Screen NEGATIVE NEGATIVE 02/24 7:01 PM [facility] HISTORICAL RESULTS Comment:Cutoff Limit: 100 ng /mL Urine Creatinine/MONICA 8.0 mg/dL Comment:If Creatinine is < 4 0 mg/dL, recollection is suggested. 02/25/2016 5:05 PM MILL TENDER WARM UP 02/25/2016 6:19 PM [facility] Narrative [facility] HISTORICAL RESULTS - 02/25/2016 7:01 PM MILL TENDER WARM UP Collected By sr Asia Dewey MD LAB URINE ORDERABLES Estefany l Result [facility] HISTORICAL RESULTS * (ABNORMAL) UA with Culture Reflex (02/25/2016 5:05 PM MILL TENDER WARM UP) Ur Collection Type CLEAN CATCH Ur Culture Indicated? C&S NOT INDICATED Urine Color COLORLESS YELLOW Urine Clarity CLEAR CLEAR Urine Glucose (UA) NORMAL NORMAL mg/dL Urine Bilirubin NEGATIVE NEGATIVE mg/dl Urine Ketones NEGATIVE NEGATIVE mg/dL Ur Specific [place] 1.001(L) 1.005 - 1.025 Urine Blood NEGATIVE NEGATIVE mg/dl Urine pH 7.0 5.0 - 8.0 02/25/2016 7:10 PM MILL TENDER WARM UP [facility] HISTORICAL RESULTS Urine Protein NEGATIVE NEGATIVE mg/dL 02/25/2016 7:10 PM MILL TENDER WARM UP [facility] HISTORICAL RESULTS Urine Urobilinogen NORMAL NORMAL mg/dL 02/25/2016 7:10 PM MILL TENDER WARM UP [facility] HISTORICAL RESULTS Urine Nitrite NEGATIVE NEGATIVE 02/25/2016 7:10 PM MILL TENDER WARM UP [facility] HISTORICAL RESULTS Ur Leukocyte Esterase NEGATIVE NEGATIVE Sammie/ul Ur Microscopic Review Not Indicated 02/25/2016 5:05 PM MILL TENDER WARM UP 02/25/2016 6:19 PM MILL TENDER WARM UP Asia Dewey MD LAB URINE ORDERABLES Estefany césar Result [facility] HISTORICAL RESULTS documented in this encounter Visit Diagnoses Diagnosis Other specified diseases and conditions complicating , childbirth and the puerperium 24 weeks gestation of Dorsalgia Pain in thoracic spine documented in this encounter
--- OUTSIDE RECORDS SUMMARY | 2024-03-15 18:54 | XMS_ITS | Encounter Summary ---
Author Organization [facility] Healthcare Address [address] [place] [address] Care Team Providers Care Senior Qa Automation Engineer Name Role Phone Unavailable Primary Care Provider Unavailabl e Encounter Details Date Type Department Care Team (Latest Contact Info) Description 04/26/2016 12:49 PM CASKET LINER - 04/26/2016 2:40 PM CASKET LINER Hospital Encounter [facility] No Martinez, DO [address] [place] [address] Other specified diseases and conditions complicating , [...] Comments Blood Pressure 115/72 04/26/2016 12:55 PM CASKET LINER Pulse 104 04/26/2016 12:55 PM CASKET LINER Temperature 36.6 ??C (97.8 ??F) 04/26/2016 12:[address] Respiratory Rate - - Oxygen Saturation 100% 04/26/2016 12:55 PM CASKET LINER Inhaled Oxygen Concentration - - Weight 49.9 kg (110 lb) 04/26/2016 12:55 PM CASKET LINER Height 160 cm (5' 3 ) 04/26/2016 12:55 PM CASKET LINER Body Mass Index 19.49 04/26/2016 12:55 PM CASKET LINER Body Mass Index Percentile 27.62% 04/26/2016 12: 55 PM CASKET LINER Growth Chart: [facility] (Girls, 2- 20 Years) documented in this encounter Plan of Treatment Not on file documented as of this encounter Visit Diagnoses Diagnosis Other specified diseases and conditions complicating , childbirth and the puerperium 33 weeks gestation of documented in this encounter
--- OUTSIDE RECORDS SUMMARY | 2024-03-15 18:54 | XMS_ITS | Encounter Summary ---
Author Organization [facility] Healthcare Address [address] [place] [address] Care Team Providers Care Medical Management Trainer Name Role Phone Unavailable Primary Care Provider Unavailabl e Encounter Details Date Type Department Care Team (Latest Contact Info) Description 12/28/2015 9:30 AM CDT - 12/28/2015 11:55 AM CDT [facility] [address] [facility] [address] Other specified noninflammatory disorders of vulva and [...] 12/28/2015 9:3 2 AM CDT Growth Chart: [facility] (Girls, 2- 20 Years) documented in [...] Collection Type CLEAN CATCH 12/28/2015 11:12 AM [facility] [employer] HISTORICAL RESULTS Ur Culture Indicated? C&S NOT INDICATED 12/28/2015 11:12 AM [facility] [employer] HISTORICAL RESULTS Urine Color YELLOW YELLOW 12/28/2015 11:12 AM [facility] [employer] HISTORICAL RESULTS Urine Clarity CLEAR CLEAR 12/28/2015 11:12 AM [facility] [employer] HISTORICAL RESULTS Urine Glucose (UA) NORMAL NORMAL mg/dL 12/28/2015 11:12 AM [facility] [employer] HISTORICAL RESULTS Urine Bilirubin NEGATIVE NEGATIVE mg/dl 12/28/2015 11:12 AM [facility] [employer] HISTORICAL RESULTS Urine Ketones NEGATIVE NEGATIVE mg/dL 12/28/2015 11:12 AM [facility] [employer] HISTORICAL RESULTS Ur Specific [place] 1.023 1.005 - 1.025 12/28/2015 11:12 AM [facility] [employer] HISTORICAL RESULTS Urine Blood NEGATIVE NEGATIVE mg/dl 12/28/2015 11:12 AM [facility] [employer] HISTORICAL RESULTS Urine pH 5.0 5.0 - 8.0 12/28/2015 11:12 AM [facility] [employer] HISTORICAL RESULTS Urine Protein NEGATIVE NEGATIVE mg/dL Urine Urobilinogen NORMAL NORMAL mg/dL Urine Nitrite NEGATIVE NEGATIVE Ur Leukocyte Esterase NEGATIVE NEGATIVE Sammie/ul Ur Microscopic Review Not Indicated 12/28/2015 10:3 5 AM CDT 12/28/2015 10:46 AM CDT [facility] LAB URINE ORDERABLES Estefany l Result Performing Organization Address [facility] de Phone Number [facility] HISTORICAL RESULTS * Protime-INR (12/28/2015 10:31 [...] ORDERABLES Estefany l Result Performing Organization Address [facility] de Phone Number [facility] HISTORICAL RESULTS * aPTT (12/28/2015 10:31 AM CDT) APTT 27 26 - 33 SECONDS 12/28/2015 10:3 1 AM CDT 12/28/2015 10:43 AM CDT [facility] LAB BLOOD ORDERABLES Estefany l Result [facility] HISTORICAL RESULTS * (ABNORMAL) Comprehensive metabolic panel (12/28/2015 10:31 AM CDT) [facility] Sodium 139 135 - 145 mmol/L [...] PA LAB BLOOD ORDERABLES Estefany lindsey Result [facility] HISTORICAL RESULTS * (ABNORMAL) CBC with [...] 7.4 - 10.4 fl 12/28/2015 10:48 AM [facility] HISTORICAL RESULTS Neut % 76.9 37.0 - 85.0 % Immature Gran % 0.6 0.0 - 3.0 % Lymph % 13.7 5.0 - 45.0 % 12/28/2015 10:48 AM [facility] HISTORICAL RESULTS Miller % 7.9 3.0 - 15.0 % 12/28/2015 10:48 AM [facility] HISTORICAL RESULTS Eos % 0.7 0.0 - 7.0 % 12/28/2015 10:48 AM [facility] HISTORICAL RESULTS Baso % 0.2 0.0 - 2.0 % Absolute Neuts (auto) 6.2 1.7 - 8.7 x10 3/ul 12/28/2015 10:48 AM [facility] HISTORICAL RESULTS Immature Gran # 0.1 0.0 - 0.3 x10 3/ul 12/28/2015 10:48 AM [facility] HISTORICAL RESULTS Absolute Lymphs (auto) 1.1 0.2 - 4.6 x10 3/ul 12/28/2015 10:48 AM [facility] HISTORICAL RESULTS Absolute Monos (auto) 0.6 0.1 - 1.5 x10 3/ul Absolute Eos (auto) 0.1 0.0 - 0.7 x10 3/ul Absolute Basos (auto) 0.0 0.0 - 0.2 x10 3/ul 12/28/2015 10:3 1 AM CDT 12/28/2015 10:43 AM CDT [facility] LAB BLOOD ORDERABLES Estefany lindsey Result [facility] HISTORICAL RESULTS documented in this encounter Visit Diagnoses Diagnosis Other specified noninflammatory disorders of vulva and perineum 15 weeks gestation of documented in this encounter
--- OUTSIDE RECORDS SUMMARY | 2024-03-15 18:54 | XMS_ITS | Encounter Summary ---
Author Organization [facility] Healthcare Address [address] [place] [address] Care Team Providers Care Boat Patcher Plastic Name Role Phone Unavailable Primary Care Provider Unavailabl e Encounter Details Date Type Department Care Team (Late st Contact Info) Description 05/07/2016 10:22 AM DRUM STOCK CLERK - 05/07/2016 5:00 PM DRUM STOCK CLERK Hospital Encounter [facility] Asia Dewey MD [address] [place] [address] False labor before 37 completed weeks of [...] Comments Blood Pressure 119/72 05/07/2016 10:30 AM DRUM STOCK CLERK Pulse 107 05/07/2016 10:30 AM DRUM STOCK CLERK Temperature 36.7 ??C (98.1 ??F) 05/07/2016 10:[address] Respiratory Rate - - Oxygen Saturation 100% 05/07/2016 10:30 AM DRUM STOCK CLERK Inhaled Oxygen Concentration - - Weight 51.3 kg (113 lb) 05/07/2016 10:30 AM DRUM STOCK CLERK Height 160 cm (5' 3 ) 05/07/2016 10:30 AM DRUM STOCK CLERK Body Mass Index 20.02 05/07/2016 10:30 AM DRUM STOCK CLERK Body Mass Index Percentile 34.95% 05/07/2016 10: 30 AM DRUM STOCK CLERK Growth Chart: [facility] (Girls, 2- 20 Years) documented in this encounter Plan of Treatment Not on file documented as of this encounter Procedures Procedure Name Priority Date/Time Associated Diagnosis Comments URINALYSIS AND REFLEX TO MICROSCOPIC AND CULTURE Routine 05/07/2016 11:40 AM DRUM STOCK CLERK documented in this encounter Results * (ABNORMAL) Urinalysis reflex to microscopic and culture (05/07/2016 11:40 AM DRUM STOCK CLERK) Ur Collection Type CLEAN CATCH 05/07/2016 12:52 PM [facility] Arden Reed HISTORICAL RESULTS Ur Culture Indicated? C&S NOT INDICATED 05/07/2016 12:52 PM [facility] Arden Reed HISTORICAL RESULTS Urine Color YELLOW YELLOW 05/07/2016 12:52 PM [facility] Arden Reed HISTORICAL RESULTS Urine Clarity HAZY CLEAR 05/07/2016 12:52 PM [facility] Arden Reed HISTORICAL RESULTS Urine Glucose (UA) NORMAL NORMAL mg/dL 05/07/2016 12:52 PM [facility] Arden Reed HISTORICAL RESULTS Urine Bilirubin NEGATIVE NEGATIVE mg/dl 05/07/2016 12:52 PM [facility] Arden Reed HISTORICAL RESULTS Urine Ketones NEGATIVE NEGATIVE mg/dL 05/07/2016 12:52 PM [facility] Arden Reed HISTORICAL RESULTS Ur Specific [place] 1.011 1.005 - 1.025 05/07/2016 12:52 PM [facility] Arden Reed HISTORICAL RESULTS Urine Blood NEGATIVE NEGATIVE mg/dl 05/07/2016 12:52 PM [facility] Arden Reed HISTORICAL RESULTS Urine pH 7.0 5.0 - 8.0 05/07/2016 12:52 PM [facility] Arden Reed HISTORICAL RESULTS Urine Protein NEGATIVE NEGATIVE mg/dL 05/07/2016 12:52 PM [facility] Arden Reed HISTORICAL RESULTS Urine Urobilinogen NORMAL NORMAL mg/dL 05/07/2016 12:52 PM [facility] Arden Reed HISTORICAL RESULTS Urine Nitrite NEGATIVE NEGATIVE 05/07/2016 12:52 PM [facility] Arden Reed HISTORICAL RESULTS Ur Leukocyte Esterase 75(H) NEGATIVE Sammie/ul 05/07/2016 12:52 PM [facility] Arden Reed HISTORICAL RESULTS Ur Microscopic Review Indicated or Ordered 05/07/2016 12:52 PM [facility] Arden Reed HISTORICAL RESULTS Urine RBC 1 0 - 2 /HPF 05/07/2016 12:52 PM DRUM STOCK CLERK [facility] HISTORICAL RESULTS Urine WBC 4 0 - 2 /HPF 05/07/2016 12:52 PM DRUM STOCK CLERK [facility] HISTORICAL RESULTS Urine Bacteria Many /HPF 05/07/2016 12:52 PM DRUM STOCK CLERK [facility] HISTORICAL RESULTS Urine Mucus RARE /LPF 05/07/2016 12:52 PM DRUM STOCK CLERK [facility] HISTORICAL RESULTS Ur Squamous Epith Cells Rare /LPF 05/07/2016 12:52 PM DRUM STOCK CLERK [facility] HISTORICAL RESULTS Amorphous Crystals Many /HPF 05/07/2016 12:52 PM [facility] HISTORICAL RESULTS 05/07/2016 11:4 0 AM DRUM STOCK CLERK 05/07/2016 12:01 PM DRUM STOCK CLERK Narrative [facility] HISTORICAL RESULTS - 05/07/2016 12:52 PM DRUM STOCK CLERK us Asia Dewey MD LAB MICROBIOLOGY - GENERA L ORDERABLES Final Result [facility] HISTORICAL RESULTS documented in this encounter Visit Diagnoses Diagnosis False labor before 37 completed weeks of gestation 34 weeks gestation of documented in this encounter
--- OUTSIDE RECORDS SUMMARY | 2024-03-15 18:54 | XMS_ITS | Encounter Summary ---
Author Organization [facility] Healthcare Address [address] [place] [address] Care Team Providers Care Vp Home Health Name Role Phone Unavailable Primary Care Provider Unavailabl e Encounter Details Date Type Department Care Team (Latest Contact Info) Description 05/04/2016 3:51 PM NIGHT AUDITOR - 05/04/2016 6:11 PM NIGHT AUDITOR Hospital Encounter [facility] No Martinez, DO [address] [place] [address] Other specified diseases and conditions complicating , [...] Comments Blood Pressure 117/70 05/04/2016 4:53 PM NIGHT AUDITOR Pulse 106 05/04/2016 4:53 PM NIGHT AUDITOR Temperature 36.5 ??C (97.7 ??F) 05/04/2016 4:53 PM CS T Respiratory Rate - - Oxygen Saturation - - Inhaled Oxygen Concentration - - Weight 0.113 kg (4 oz) 05/04/2016 4:53 PM NIGHT AUDITOR Height 160 cm (5' 3 ) 05/04/2016 4:53 PM NIGHT AUDITOR Body Mass Index 0.04 05/04/2016 4:53 PM NIGHT AUDITOR Body Mass Index Percentile 0.00% 05/04/2016 4:5 3 PM NIGHT AUDITOR Growth Chart: [facility] (Girls, 2- 20 Years) documented in this encounter Plan of Treatment Not on file documented as of this encounter Procedures Procedure Name Priority Date/Time Associated Diagnosis Comments URINALYSIS AND REFLEX TO MICROSCOPIC AND CULTURE Routine 05/04/2016 4:15 PM NIGHT AUDITOR documented in this encounter Results * Urinalysis reflex to microscopic and culture (05/04/2016 4:15 PM NIGHT AUDITOR) Ur Collection Type CLEAN CATCH 05/04/2016 5:57 PM [facility] [employer] HISTORICAL RESULTS Ur Culture Indicated? C&S NOT INDICATED Urine Color YELLOW YELLOW Urine Clarity HAZY CLEAR Urine Glucose (UA) NORMAL NORMAL mg/dL Urine Bilirubin NEGATIVE NEGATIVE mg/dl Urine Ketones NEGATIVE NEGATIVE mg/dL Ur Specific [place] 1.006 1.005 - 1.025 Urine Blood NEGATIVE NEGATIVE mg/dl Urine pH 8.0 5.0 - 8.0 Urine Protein NEGATIVE NEGATIVE mg/dL Urine Urobilinogen NORMAL NORMAL mg/dL Urine Nitrite NEGATIVE NEGATIVE Ur Leukocyte Esterase NEGATIVE NEGATIVE Sammie/ul Ur Microscopic Review Indicated or Ordered Urine RBC <1 0 - 2 /HPF 05/04/2016 5:54 PM NIGHT AUDITOR [facility] HISTORICAL RESULTS Urine WBC <1 0 - 2 /HPF 05/04/2016 5:54 PM NIGHT AUDITOR [facility] HISTORICAL RESULTS Urine Bacteria Many /HPF 05/04/2016 5:54 PM NIGHT AUDITOR [facility] HISTORICAL RESULTS Urine Mucus RARE /LPF 05/04/2016 5:54 PM NIGHT AUDITOR [facility] HISTORICAL RESULTS Ur Squamous Epith Cells Rare /LPF 05/04/2016 5:54 PM NIGHT AUDITOR [facility] HISTORICAL RESULTS 05/04/2016 4:15 PM NIGHT AUDITOR 05/04/2016 4:51 PM NIGHT AUDITOR Narrative [facility] HISTORICAL RESULTS - 05/04/2016 5:54 PM NIGHT AUDITOR us No Marroquin DO LAB MICROBIOLOGY - GENER AL ORDERABLES Final Result [facility] HISTORICAL RESULTS documented in this encounter Visit Diagnoses Diagnosis Other specified diseases and conditions complicating , childbirth and the puerperium 34 weeks gestation of documented in this encounter
== END 2024-03-09 14:30 | disposition home or self-care (01) ==
PROVIDERS: Emergency Provider Nurse Practitioner Family
DX: K59.00 Constipation, unspecified (principal); R07.9 Chest pain, unspecified; R10.84 Generalized abdominal pain; Z90.79 Acquired absence of other genital organ(s); Z98.890 Other specified postprocedural states; Z20.822 Contact with and (suspected) exposure to COVID-19; R94.31 Abnormal electrocardiogram [ECG] [EKG]; R00.0 Tachycardia, unspecified
CPT/HCPCS: 36415; 74177; 80053; 81001; 81025; 83605; 83690; 84484; 85025; 87040; 87636; 93005; 96361; 96374; 96375; 99284; J2270; J2405; J7030; Q9967